=== PATIENT | male | born 1930 | race Caucasian/White ===

== ENCOUNTER → 2016-09-19 | Day surgery (SDC) | payer BC ==
[2016-09-18 11:54] VITALS: Ht 174 cm; Wt 85.0 kg
[~2016-09-19] VITALS: Ht 174 cm; Wt 85.0 kg
[~2016-09-19] MED LIST: ALL300 PO; ALLO300T2 PO; AMLO2.5T PO; ASPI-435 PO; ATOR-24 PO; ATROPINE SULFATE 0.1 MG/ML 5ML SYR IV PRN; AVD5 PO; BUPIVACAINE 0.5 % 5 MG/1 ML MPF 30ML VIAL ONE; CEFAZOLIN 2000 MG/60 ML D5W IV SCH; CEFAZOLIN SOD 1 GM VIAL ONE; CEFAZOLIN SOD 1000MG/55 ML D5W IV ONE; CEPH500C2 PO; CYAN100T PO; DEXAMETHASONE SOD INJ 4 MG/ML VIAL IV PRN; DTRSR4 PO; DUTA1CAP3 PO; EpHEDrine SULFATE INJ 50 MG/ML AMP IV PRN; FENTANYL CITRATE INJ 50 MCG/1 ML 2 ML VIAL IV PRN; FENTANYL CITRATE INJ 50 MCG/1 ML 2 ML VIAL ONE; FLM4 PO; GABA-113 PO; GABA1CAP4 PO; IPRA1AER2 INH; KETOROLAC TROMETHAMINE 30 MG/ML VIAL IV. PRN; LABETALOL HCL IV 5 MG/ML 20ML IV PRN; LACTATED RINGER'S 1000ML 1,000 ML IV SCH; LIDOCAINE HCL 1% 20 ML VIAL ONE; LIDOCAINE HCL 2% 2 ML VIAL (20MG/ML) ONE; MAGN400T6 PO; MELA1TAB3 PO; MELA1TAB4 PO; METO25TA3 PO; METOCLOPRAMIDE HCL INJ 5 MG/ML 2 ML VIAL IV PRN; MIDAZOLAM HCL 1 MG/ML 2ML VIAL ONE; MIRA1TAB3 PO; MOME220A INH; NUTR-7 PO; ONDANSETRON INJ 2 MG/ML 2 ML VIAL IV PRN; OXGN; PANT20TA2 PO; PANT40TA PO; PHEN-876 PO; PHENYLEPHRINE 100MCG/ML 5ML SYR IV PRN; PRED-301 PO; PROPOFOL IV EMULSION 10 MG/ML 20 ML VIAL IV ONE; SODIUM CHLORIDE 0.9% 1000ML 1,000 ML IV SCH; TOLT1CAP3 PO; TPRSR/25 PO; TRAM-10 PO; TRAMADOL HCL 50 MG TAB PO PRN; ULT50 PO; ZOLE5INJ IV
--- NOTE | 2016-09-19 06:56 | History & Physical Bridge - SC ---
H&P Re-Evaluation Bridge Note: I have examined the patient, reviewed the History & Physical and in the interval since the performance of the History & Physical I have noted the following changes of clinical significance: No changes noted
--- NOTE | 2016-09-19 07:45 | [facility] Post Operative Brief Note ---
Immediate Operative Summary Operative Date September 19, 2016. 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 Nieves Solar Crew Member Surgeon(s) Robel Somers PA-C Estimated Blood Loss Minimal Findings Right 2nd Hammertoe with ulceration Specimens A. Right Second Toe Anesthesia Local with IV sedation Complication(s) None Disposition Recovery Room / PACU
[2016-09-19 07:48] VITALS: TEMP 36.7
--- NOTE | 2016-09-19 07:49 | Discharge Instructions-SurgCtr ---
Discharge Instructions Date of Service September 19, 2016. Visit Reason for Visit: Osteomyelitis, Foot Pain Discharge Discharge Diagnosis / Problem: RIGHT 2ND TOE OSTEOMYELITIS Discharge Goals Goal(s): Decrease discomfort, Therapeutic intervention Activity Recommendations Activity Limitations: per Instructions/Follow-up section Weightbearing Status: Right weightbearing (as tolerated WITH POST OP SHOE ) Anesthesia . Post Anesthesia Instructions: If you have had General Anesthesia or IV Sedation: * Do not drive today. * Resume driving when surgeon permits. * Do not make important decisions or sign legal documents today. * Call surgeon for: 1. Temperature elevations greater than 101 degrees F. 2. Uncontrollable pain. 3. Excessive bleeding. 4. Persistent nausea and vomiting. 5. Medication intolerance (nausea, vomiting or rash). * For nausea and vomiting use only clear liquids such as: tea, soda, bouillon until nausea subsides, then gradually increase diet as tolerated. * If you have any concerns or questions, call your surgeon's office. If physician is unavailable and it is an emergency, call 911 or go to the nearest emergency room. . Instructions / Follow-Up Instructions / Follow-Up MEDICATIONS: * Resume previous medications unless instructed otherwise by your surgeon. * Always take pain medication on a full stomach or with food to avoid upset stomach. * Do not drink alcohol or drive while taking narcotics. * Ibuprofen or Tylenol may be taken if narcotic not needed. SPECIAL CARE INSTRUCTIONS: __ None __ Keep extremity elevated and iced x 48 hours; apply ice 20-30 minutes 8-10 times/day. May remove at night. __ Crutches __ May discard when able __ Brace/Post-op shoe __ 24 hrs/day __ Remove at night _X_ Dressing _X_ Maintain until seen in office, may shower with plastic over site __ Remove dressings in 24-48 hours and then may shower __ Cover incisions with band-aids after showering __ Do not remove steri-strips Call physician if chills or temperature rises above 102 degrees or pain unrelieved by prescribed pain medications. Office [phone] FOLLOW UP IN 2 WEEKS Diet Recommendations Home Diet: resume previous diet Procedures Procedures Performed: Right Second Toe Amputation Pending Studies Studies pending at discharge: no Medical Emergencies . Who to Call and When: Medical Emergencies: If at any time you feel your situation is an emergency, please call 911 immediately. . Non-Emergent Contact Non-Emergency issues call your: Surgeon . . "Provider Documentation" section prepared by Jose Somers. .
[2016-09-19 08:45] VITALS: O2SAT 98
[2016-09-19 09:01] VITALS: BP 149/88; PULSE 74
--- NOTE | 2016-09-19 09:30 | Anesthesia Progress Nt - [facility] ---
Anesthesia Post Op Note Date & Time September 19, 2016 at 09:30 Vital Signs Pain Intensity: 0 Vital Signs Past 12 Hours Date Time Temp Pulse Resp B/P Pulse Ox O2 Delivery O2 Flow Rate FiO2 09/19/16 09:01 74 149/88 09/19/16 08:57 75 164/77 09/19/16 08:50 76 151/85 09/19/16 08:45 76 161/88 98 09/19/16 08:40 76 174/107 98 Room Air 09/19/16 08:29 73 20 175/104 98 Room Air 09/19/16 07:48 36.7 73 16 145/82 98 Room Air 09/19/16 06:33 36.7 69 20 144/86 94 Room Air Notes Mental Status: alert / awake / arousable, participated in evaluation Pt Amnestic to Procedure: Yes Nausea / Vomiting: adequately controlled Pain: adequately controlled Airway Patency, RR, SpO2: stable & adequate BP & HR: stable & adequate Hydration State: stable & adequate Anesthetic Complications: no major complications apparent
--- NOTE | 2016-09-19 09:57 | OPERATIVE REPORT ---
DATE OF OPERATION: 09/19/2016 PREOPERATIVE DIAGNOSIS: Right second chronic hammertoe deformity with recurrent infection. POSTOPERATIVE DIAGNOSIS: Same. PROCEDURE PERFORMED: Right second toe amputation. SURGEON: Melvin Nieves M.D. 911 EMERGENCY DISPATCHER: Rafael Somers PA-C. COMPLICATIONS: None. ESTIMATED BLOOD LOSS: Minimal. TOURNIQUET TIME: 11 minutes at 300 mmHg. ANESTHESIA: Local with IV sedation. SPECIMENS: Right toe sent for pathology. OPERATIVE INDICATIONS: The patient is an 85-year-old gentleman who is now a little over a year out from left second toe amputation for recurrent infection and osteomyelitis. He developed similar problems in the right foot. There is no documented osteomyelitis, but he has had recurrent infections in his foot. He has developed a chronic hammertoe deformity of the second toe. It actually deviates toward the big toe at the MP joint and then towards the third toe at the IP joint. He develops calluses and recurrent infection. He has actually been hospitalized with several days of IV antibiotics in the past. He would like to have this toe amputated just like the other one to correct this problem. OPERATION AND FINDINGS: OPERATIVE PROCEDURE: The patient taken to the operating room, identified and placed on the operating table in supine position. All contact areas were appropriately padded. IV antibiotics were provided by anesthesia team. Right ankle tourniquet was placed. Some IV sedation was provided. Ten mL of a 50:50 combination of 0.5% Marcaine and 2% lidocaine were then injected just proximal to the second MTP joint for a digital block. The right foot was then prepped and draped in the usual sterile fashion. The right leg was elevated and exsanguinated with Esmarch and tourniquet was placed at 300 mmHg. A fish mouth incision was made at the base of the 2nd toe. Sharp dissection was carried down through the subcutaneous tissue directly down to the bone. I then skeletonized the bone and disarticulated MTP joint. I then identified the flexor and extensor tendons. I applied tension to them and cut them short and allowed them to retract. I then irrigated the wound extensively. The tourniquet was then let down for a final tourniquet time of 11 minutes. Hemostasis was assured with use of electrocautery. The wound was once again irrigated. The skin was then closed with 4-0 nylon suture in a simple fashion. The foot was then cleaned and dried and a sterile dressing of Xeroform, 4 x 4's, sterile cast padding and a Coban wrap followed by postop shoe were applied. The patient was then transferred to the recovery room in stable condition. The patient tolerated the procedure well with no complications. All needle and sponge counts were correct at the end of the operation. I attest to the content of the Intraoperative Record and any orders documented therein. Any exceptio ns are noted below.
== END | disposition home or self-care (01) ==
LOC: X.SURG 06:07
PROVIDERS: ATTEND Orthopaedic Surgery Sports Medicine
DX: M20.41 Other hammer toe(s) (acquired), right foot (principal); M86.671 Other chronic osteomyelitis, right ankle and foot; L03.031 Cellulitis of right toe; I12.9 Hypertensive chronic kidney disease with stage 1 through stage 4 chronic kidney disease, or unspecified chronic kidney disease; N18.3 Chronic kidney disease, stage 3 (moderate); L40.50 Arthropathic psoriasis, unspecified; M10.9 Gout, unspecified; I73.9 Peripheral vascular disease, unspecified; J44.9 Chronic obstructive pulmonary disease, unspecified; R97.20 Elevated prostate specific antigen [PSA]; E78.5 Hyperlipidemia, unspecified; I35.0 Nonrheumatic aortic (valve) stenosis; M81.0 Age-related osteoporosis without current pathological fracture; G60.9 Hereditary and idiopathic neuropathy, unspecified; Z79.899 Other long term (current) drug therapy

== ENCOUNTER 2016-12-17 16:41 | Emergency (ER) | payer BC ==
[~2016-12-17] VITALS: Ht 174 cm; Wt 79.5 kg
[~2016-12-17 16:41] MED LIST changes: -ALL300 PO; -ASPI-435 PO; -ATOR-24 PO; -ATROPINE SULFATE 0.1 MG/ML 5ML SYR IV PRN; -BUPIVACAINE 0.5 % 5 MG/1 ML MPF 30ML VIAL ONE; -CEFAZOLIN 2000 MG/60 ML D5W IV SCH; -CEFAZOLIN SOD 1 GM VIAL ONE; -CEFAZOLIN SOD 1000MG/55 ML D5W IV ONE; -DEXAMETHASONE SOD INJ 4 MG/ML VIAL IV PRN; -DUTA1CAP3 PO; -EpHEDrine SULFATE INJ 50 MG/ML AMP IV PRN; -FENTANYL CITRATE INJ 50 MCG/1 ML 2 ML VIAL IV PRN; -FENTANYL CITRATE INJ 50 MCG/1 ML 2 ML VIAL ONE; -GABA1CAP4 PO; -IPRA1AER2 INH; -KETOROLAC TROMETHAMINE 30 MG/ML VIAL IV. PRN; -LABETALOL HCL IV 5 MG/ML 20ML IV PRN; -LACTATED RINGER'S 1000ML 1,000 ML IV SCH; -LIDOCAINE HCL 1% 20 ML VIAL ONE; -LIDOCAINE HCL 2% 2 ML VIAL (20MG/ML) ONE; -MAGN400T6 PO; -MELA1TAB4 PO; -METOCLOPRAMIDE HCL INJ 5 MG/ML 2 ML VIAL IV PRN; -MIDAZOLAM HCL 1 MG/ML 2ML VIAL ONE; -MOME220A INH; -ONDANSETRON INJ 2 MG/ML 2 ML VIAL IV PRN; -PANT20TA2 PO; -PHEN-876 PO; -PHENYLEPHRINE 100MCG/ML 5ML SYR IV PRN; -PROPOFOL IV EMULSION 10 MG/ML 20 ML VIAL IV ONE; -SODIUM CHLORIDE 0.9% 1000ML 1,000 ML IV SCH; -TOLT1CAP3 PO; -TPRSR/25 PO; -TRAMADOL HCL 50 MG TAB PO PRN; -ULT50 PO
[2016-12-17] MEDS ORDERED: MOME220A INH (16:59)
[2016-12-17] MEDS ORDERED: IPRA1AER2 INH (16:59)
[2016-12-17] MEDS ORDERED: MAGN400T6 PO (16:59)
[2016-12-17 17:07] VITALS: TEMP 36.6; Ht 174 cm; Wt 79.5 kg
--- NOTE | 2016-12-17 17:57 | EMERGENCY ROOM VISIT NOTE ---
History First contact with patient: 17:40 Chief Complaint: LEG PAIN,LEG INJURY Stated Complaint: LF LEG GRABBING ON HIM History of Present Illness The patient is a 86 year old male who presents to the Emergency Room with complaints of 3 days of right leg pain. He reports waking up with a pain shooting down his right leg intermittently. He currently denies having the pain and is unable to reproduce it. He denies any back pain. He has chronic urinary incontinence. He denies bowel incontinence. He admits to intermittent night time sweating for the past 3 days. During this time he also reports a lack of appetite. No problem with food getting stuck. He stopped taking all his medications as he does not want to eat on an empty stomach. He denies any chest pain, shortness of breath, pain on urination, cough, headache, vision, speech or hearing problems. Review of Systems Constitutional: + sweats (night time as per HPI), No fever Eyes: No worsening of vision ENT: No hearing loss Respiratory: No cough, No sputum, No wheezing, No shortness of breath Cardiovascular: No chest pain, No orthopnea, No PND, No edema, No claudication, No palpitations Abdomen: + nausea, No pain, No vomiting, No diarrhea, No constipation, No GI bleeding Musculoskeletal: No joint pain, No muscle pain Genitourinary - Male: + urinary urgency (chronic), No hematuria, No dysuria , No urinary frequency Neurologic: + weakness (generalized), No memory loss, No numbness/tingling, No vertigo Endocrine: + fatigue (3 days) Hematologic / Lymphatic: No abnormal bleeding/bruising Integumentary: No rash, No itch Past Medical/Surgical History Medical Problems: (1) Aortic stenosis (2) BPH (benign prostatic hypertrophy) (3) Carotid bruit (4) Cellulitis of foot (5) CKD (chronic kidney disease), stage III (6) COPD (chronic obstructive pulmonary disease) (7) Dyslipidemia (8) Gout (9) H/O atrial flutter (10) H/O diastolic dysfunction (11) History of duodenal ulcer (12) History of volvulus of stomach (13) Hypertension (14) Nocturnal hypoxemia (15) Osteoporosis (16) Peripheral vascular disease (17) Psoriatic arthritis (18) Tobacco abuse (19) Toe infection Surgical Problems: (1) H/O colonoscopy (2) Hx of esophagogastroduodenoscopy Family History FH: Parkinson's disease FATHER FH: cancer MOTHER (Colon) SISTER (Breast, LungCA) Kidney disease Kidney stones Social History Smoking Status: Former Smoker Alcohol Use: none Drug Use: none Marital Status: Housing Status: lives alone Occupation Status: retired Current/Historical Medications Scheduled Allopurinol (Allopurinol), 300 MG PO QAM Amlodipine Besylate (Norvasc), 2.5 MG PO QAM Aspirin (Aspirin 81), 81 MG PO QAM Atorvastatin (Lipitor), 40 MG PO QPM Dutasteride (Dutasteride), 0.5 MG PO DAILY Gabapentin (Gabapentin), 300-600 MG PO TID Home O2 Therapy (Oxygen), 2 LITERS NA HS Magnesium Oxide (Mag-Ox), 400 MG PO BID Melatonin (Melatonin), 1 MG PO HS Metoprolol Succinate (Metoprolol Succinate ER), 25 MG PO QAM Mirabegron (Myrbetriq Er), 50 MG PO QPM Mometasone Furoate (Inhalation (Asmanex Twisthaler 120 Me), 2 PUFFS INH BID Pantoprazole Sodium (Protonix), 40 MG PO QAM Prednisone (Prednisone), 5 MG PO QPM Tamsulosin HCl (Tamsulosin HCl), 0.4 MG PO QPM Tolterodine Tartrate (Tolterodine Tartrate ER), 4 MG PO QPM Zoledronic Acid (Reclast), 5 MG IV YEARLY Scheduled PRN Ipratropium-Albuterol (Combivent Respimat), 1 PUFF INH QID PRN for Shortness of Breath Phenazopyridine HCl (Pyridium), 200 MG PO TID PRN for Pain with Urination Tramadol HCl (Tramadol HCl), 50-100 MG PO Q6H PRN for Pain Physical Exam Vital Signs Date Time Temp Pulse Resp B/P (MAP) Pulse Ox O2 Delivery O2 Flow Rate FiO2 12/17/16 22:32 111 18 179/92 96 Room Air 12/17/16 21:58 102 18 160/101 95 Room Air 12/17/16 21:38 104 18 173/108 97 Room Air 12/17/16 21:29 104 12/17/16 20:24 102 18 158/93 95 Room Air 12/17/16 19:25 104 20 169/120 98 Room Air 12/17/16 17:07 36.6 100 18 144/90 98 Room Air Physical Exam General Appearance: no apparent distress, + thin Eyes: normal inspection, PERRL, EOMI Neck: supple, no JVD, trachea midline Respiratory/Chest: chest non-tender, lungs clear, normal breath sounds, no respiratory distress, no accessory muscle use Cardiovascular: regular rate, rhythm, normal peripheral pulses, + systolic murmur (known aortic stenosis) Abdomen / GI: normal bowel sounds, non tender, soft Back: no CVA tenderness Extremities: no calf tenderness, normal capillary refill, no pedal edema, + pertinent finding (unable to reproduce right leg pain, non painful lump over left quadriceps noted (unsure of duration of this)) Neurologic/Psych: ballaster II-XII nml as tested (no facial droop or numbness), no motor/sensory deficits, alert, oriented x 3 Medical Decision & Procedures ER Provider Diagnostic Interpretation: CHEST 2 VIEWS ROUTINE HISTORY: 86 years-old Male lack of energy, tachycardia ?pneumonia COMPARISON: Chest radiographs 03/21/2015 TECHNIQUE: Frontal and lateral views of the chest FINDINGS: Cardiac silhouette is enlarged. There is a large hiatal hernia with partially intrathoracic stomach. There is atherosclerosis of the aorta. No pneumothorax. There is chronic blunting of the bilateral costophrenic angles with linear subsegmental bibasilar opacities. Lungs are hyperinflated. Pleural calcifications are again seen. The bones are grossly intact and moderately demineralized. IMPRESSION: 1. Cardiomegaly without acute cardiopulmonary process. 2. Chronic bibasilar scarring/atelectasis. 3. Large hiatal hernia. The above report was generated using voice recognition software. It may contain grammatical, syntax or spelling errors. Electronically signed by: Steven Carlos M.D. 12/17/2016 8:03 PM Dictated Date/Time: 12/17/2016 8:01 PM LUMBAR SPINE RADIOGRAPHS CLINICAL HISTORY: Fall. COMPARISON: Lumbar spine MRI October 18, 2013. FINDINGS: Note is made of postoperative findings consistent with an L4-L5 discectomy with interbody spacer placement. There are bilateral pleural screws at the L4, L5 and S1 levels. A pedicle screw at the L4 level extends through the superior endplate into to the disc space. There is an old moderate L5 compression fracture. Grade I anterolisthesis of L4 and L5 is unchanged. No acute fractures are identified on this exam. IMPRESSION: 1. Status post L4-L5 discectomy and L4-S1 bilateral pedicle screw fusion. One pedicle screw at the L4 level extends through the superior endplate into the disc space. 2. Old moderate L5 compression fracture. No change in grade I anterolisthesis of L4 and L5. 3. No acute lumbar spine fracture identified. Electronically signed by: Cisco Magdaleno M.D. 12/17/2016 8:15 PM Dictated Date/Time: 12/17/2016 8:11 PM RIGHT PELVIS/UNILATERAL HIP 2-3VIEWS CLINICAL HISTORY: Right hip pain following fall. COMPARISON: [facility] March 06, 2013. FINDINGS: Sacroiliac joints and symphysis pubis are intact. There is no acute fracture within the pelvis or hips. There are postoperative findings within the lumbosacral spine. Extensive vascular calcification is noted. 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 IMPRESSION: 1. No acute fracture within the pelvis or hips. 2. Mild osteoarthritis of the right hip. Electronically signed by: Cisco Magdaleno M.D. 12/17/2016 8:11 PM Dictated Date/Time: 12/17/2016 8:09 PM RIGHT LOWER EXTREMITY VENOUS DOPPLER CLINICAL HISTORY: Right lower extremity pain. COMPARISON STUDY: No previous studies for comparison. TECHNIQUE: Sonography of the deep venous system of the right lower extremity was performed. Compression and augmentation were evaluated. FINDINGS: The common femoral, superficial femoral and popliteal veins were compressible. Augmentation was normal. Flow was shown within the deep calf vessels. IMPRESSION: No evidence of deep venous thrombus within the right lower extremity. Electronically signed by: Cisco Magdaleno M.D. 12/17/2016 8:46 PM Dictated Date/Time: 12/17/2016 8:45 PM Laboratory Results 12/17/16 18:38 Red Blood Count 4.98, Mean Corpuscular Volume 83.3, Mean Corpuscular Hemoglobin 27.5, Mean Corpuscular Hemoglobin Concent 33.0, Mean Platelet Volume 9.7, Neutrophils (%) (Auto) 72.5, Lymphocytes (%) (Auto) 18.3, Monocytes (%) (Auto) 7.7, Eosinophils (%) (Auto) 0.8, Basophils (%) (Auto) 0.4, Neutrophils # (Auto) 5.79, Lymphocytes # (Auto) 1.46, Monocytes # (Auto) 0.61, Eosinophils # (Auto) 0.06, Basophils # (Auto) 0.03 12/17/16 18:38 Test 12/17/16 18:38 12/17/16 19:20 White Blood Count 7.97 K/uL (4.8-10.8) Red Blood Count 4.98 M/uL (4.7-6.1) Hemoglobin 13.7 g/dL (14.0-18.0) Hematocrit 41.5 % (42-52) Mean Corpuscular Volume 83.3 fL (80-100) Mean Corpuscular Hemoglobin 27.5 pg (25-34) Mean Corpuscular Hemoglobin Concent 33.0 g/dl (32-36) Platelet Count 214 K/uL (130-400) Mean Platelet Volume 9.7 fL (7.4-10.4) Neutrophils (%) (Auto) 72.5 % Lymphocytes (%) (Auto) 18.3 % Monocytes (%) (Auto) 7.7 % Eosinophils (%) (Auto) 0.8 % Basophils (%) (Auto) 0.4 % Neutrophils # (Auto) 5.79 K/uL (1.4-6.5) Lymphocytes # (Auto) 1.46 K/uL (1.2-3.4) Monocytes # (Auto) 0.61 K/uL (0.11-0.59) Eosinophils # (Auto) 0.06 K/uL (0-0.5) Basophils # (Auto) 0.03 K/uL (0-0.2) RDW Standard Deviation 46.7 fL (36.4-46.3) RDW Coefficient of Variation 15.4 % (11.5-14.5) Immature Granulocyte % (Auto) 0.3 % Immature Granulocyte # (Auto) 0.02 K/uL (0.00-0.02) Anion Gap 9.0 mmol/L (3-11) Est Creatinine Clear Calc Drug Dose 44.3 ml/min Estimated GFR () 63.5 Estimated GFR (Non- 54.8 BUN/Creatinine Ratio 17.1 (10-20) Calcium Level 9.1 mg/dl (8.5-10.1) Total Bilirubin 0.8 mg/dl (0.2-1) Aspartate Amino Transf (AST/SGOT) 21 U/L (15-37) Alanine Aminotransferase (ALT/SGPT) 17 U/L (12-78) Alkaline Phosphatase 130 U/L (45-117) Total Protein 7.7 gm/dl (6.4-8.2) Albumin 3.6 gm/dl (3.4-5.0) Globulin 4.1 gm/dl (2.5-4.0) Albumin/Globulin Ratio 0.9 (0.9-2) Urine Color YELLOW Urine Appearance CLEAR (CLEAR) Urine pH 6.5 (4.5-7.5) Urine Specific [place] 1.018 (1.000-1.030) Urine Protein TRACE (NEG) Urine Glucose (UA) NEG (NEG) Urine Ketones TRACE (NEG) Urine Occult Blood NEG (NEG) Urine Nitrite NEG (NEG) Urine Bilirubin NEG (NEG) Urine Urobilinogen NEG (NEG) Urine Leukocyte Esterase NEG (NEG) Urine WBC (Auto) 1-5 /hpf (0-5) Urine RBC (Auto) 0-4 /hpf (0-4) Urine Hyaline Casts (Auto) 1-5 /lpf (0-5) Urine Epithelial Cells (Auto) 0-5 /lpf (0-5) Urine Bacteria (Auto) NEG (NEG) Medications Administered Medications (Trade) Dose Ordered Sig/Alberto Route Start Time Stop Time Status Last Admin Dose Admin Sodium Chloride 1,000 ml @ 999 mls/hr Q1H1M STAT IV 12/17/16 18:04 12/17/16 19:04 DC 12/17/16 18:41 999 MLS/HR Sodium Chloride 500 ml @ 999 mls/hr Q31M STAT IV 12/17/16 20:44 12/17/16 21:14 DC 12/17/16 21:28 999 MLS/HR Ondansetron HCl (Zofran Inj) 4 mg NOW STAT IV 12/17/16 21:03 12/17/16 21:04 DC 12/17/16 21:25 4 MG Metoprolol Succinate (Toprol Xl Tab) 25 mg ONE STAT PO 12/17/16 21:09 12/17/16 21:11 DC 12/17/16 21:28 25 MG Ondansetron HCl (ZOFRAN ODT 4MG Home Pack) 1 homepack UD ONCE PO 12/17/16 22:15 12/17/16 22:16 DC 12/17/16 22:32 1 HOMEPACK ECG Indication: weakness Rate (beats per minute): 106 Rhythm: sinus tachycardia Findings: no acute ischemic change Change: no significant change (17 August 2015) ED Course 17:45 History and Physical was performed by myself 18:20 The patient was discussed with 21:00 The patient was reevaluated and is still without pain. Willing to try some food and medication 21:50 The patient was reevaluated with Dr Duckworth and ate a turkey sandwich after Zofran and he wished to be discharged home Medical Decision Prior records/ancillary studies reviewed. Triage Nursing notes reviewed. Additional history obtained from patient and office visit record. The patient's history was concerning for right leg pain. Differential diagnosis: Etiologies such as musculoskeletal, disc herniation, fracture, DVT, metastatic disease, cord compression, discitis, infection, renal colic, gastrointestinal, sciatica, cauda equina, as well as others were entertained. Physical findings: As above. No focal neurologic findings noted, unable to reproduce leg pain on examination ER treatment provided: 1.5L NSS Zofran 4mg IV Diagnostics interpreted by me: The labs revealed normal WBC, Hgb 13.7 (stable), Cr 1.2 (at baseline), ALP mildly raised at 130 with normal bilirubin Imaging studies: as above showed no acute fracture or pneumonia No pathology was found for his right leg pain and he was pain free throughout his ER course. He has objective fever and WBC is normal therefore no objective findings of an infection at this time. He was tachycardic which remained elevated despite fluid bolus. This is most likely secondary to him not taking his metoprolol and having rebound tachycardia. He does not complain of chest pain, shortness of breath and has normal saturations therefore unlikely this represents a PE. His main issue appears to be general failure to thrive and his lack of appetite. He was given Zofran for nausea and managed to eat a sandwich in the ER without any issues. He took his usual dose of metoprolol without issues. I am unclear whether him not taking his medications has lead to his deterioration or whether the deterioration led to him not taking his medications. He declined placement for inpatient rehabilitation and wished to go home. He was advised to call his PCP in the morning for close follow up in the next 1-2 days. By the evaluation outlined above emergent etiologies such as fracture, aortic disease, metastatic disease, infection, renal colic, gastrointestinal, cord compression, cauda equina, as well as others were deemed relatively unlikely. The patient and his daughter were informed about the findings as listed above. All questions were answered and they were pleased with the treatment. Return instructions were outlined and the patient was discharged in stable condition. Referral: The patient was referred back to his primary care physician for follow-up in 1 to 2 days for a recheck of the current condition. Medication Reconcilliation Current Medication List: was personally reviewed by me Blood Pressure Screening Patient's blood pressure: Elevated blood pressure Blood pressure disposition: Referred to PCP Not taking his usual medications Impression Primary Impression: Leg pain, right Additional Impressions: Poor fluid intake Poor nutrition Departure Information Dispostion Home / Self-Care Condition FAIR Referrals Patrick Albarran M.D. (PCP) Patient to call for follow up in the next 1-2 days Patient Instructions My [facility] Additional Instructions Examination, lab work, urine, ultrasound and chest XR were unremarkable and did not find a cause of your symptoms in the ER today. In the ER you are only seen at one point in time and some conditions require follow up to be diagnosed. Take Tylenol (age and/or weight specific) as needed for pain, discomfort, and fevers. Drink more clear liquids for the next 3 to 4 days. Make a follow-up appointment with your family doctor for continued care and treatment in the next 1-2 days. If you have an increasing pain, discomfort, fevers, or difficulty swallowing, difficulty breathing, chest pain, recurrent vomiting or diarrhea, come back to the Emergency Department. Resident Tracking Resident Involvement: Resident Care Provided Care Provided: Adult ED Problem Qualifiers
[2016-12-17] MEDS ORDERED: SODIUM CHLORIDE 0.9% 1000ML 1,000 ML IV STA (18:04)
[2016-12-17] MEDS ORDERED: ASPI-435 PO (18:45)
[2016-12-17 18:55] LABS: BASO % 0.4 %; BASO ABS # 0.03 K/uL (0-0.2); COMPLETE YES; EOS % 0.8 %; HEMATOCRIT 41.5 % (42-52); IG% 0.3 %; LYMPH % 18.3 %; LYMPH ABS # 1.46 K/uL (1.2-3.4); MEAN CELL VOLUME 83.3 fL (80-100); MEAN CORPUSCULAR HEMOGLOBIN 27.5 pg (25-34); MEAN PLATELET VOLUME 9.7 fL (7.4-10.4); MONO % 7.7 %; NEUT % 72.5 %; PLATELET COUNT 214 K/uL (130-400); RED BLOOD COUNT 4.98 M/uL (4.7-6.1); WHITE BLOOD COUNT 7.97 K/uL (4.8-10.8)
[2016-12-17 19:15] LABS: BUN/CREATININE RATIO 17.1 (10-20); CALCIUM 9.1 mg/dl (8.5-10.1); CREATININE 1.2 mg/dl (0.60-1.40); POTASSIUM 3.8 mmol/L (3.5-5.1)
[2016-12-17 19:18] LABS: ALB/GLOB RATIO 0.9 (0.9-2)
[2016-12-17 19:39] LABS: URINE APPEARANCE CLEAR (CLEAR); URINE BILIRUBIN NEG (NEG); URINE COLOR YELLOW; URINE EPITHELIAL CELL AUTO 0-5 /lpf (0-5); URINE NITRITE NEG (NEG); URINE PH 6.5 (4.5-7.5); URINE SPECIFIC GRAVITY 1.018 (1.000-1.030); UROBILINOGEN NEG (NEG); ZZURINE CULT IF INDIC CATH NO
[2016-12-17 19:45] LABS: MANUAL MICROSCOPIC REQUIRED? NO; REVIEW REQ? NO
--- NOTE | 2016-12-17 20:04 | DIAGNOSTIC IMAGING REPORT ---
CHEST 2 VIEWS ROUTINE HISTORY: 86 years-old Male lack of energy, tachycardia ?pneumonia COMPARISON: Chest radiographs 03/21/2015 TECHNIQUE: Frontal and lateral views of the chest FINDINGS: Cardiac silhouette is enlarged. There is a large hiatal hernia with partially intrathoracic stomach. There is atherosclerosis of the aorta. No pneumothorax. There is chronic blunting of the bilateral costophrenic angles with linear subsegmental bibasilar opacities. Lungs are hyperinflated. Pleural calcifications are again seen. The bones are grossly intact and moderately demineralized. IMPRESSION: 1. Cardiomegaly without acute cardiopulmonary process. 2. Chronic bibasilar scarring/atelectasis. 3. Large hiatal hernia. The above report was generated using voice recognition software. It may contain grammatical, syntax or spelling errors. Electronically signed by: Steven Carlos M.D. 12/17/2016 8:03 PM Dictated Date/Time: 12/17/2016 8:01 PM
--- NOTE | 2016-12-17 20:12 | DIAGNOSTIC IMAGING REPORT ---
RIGHT PELVIS/UNILATERAL HIP 2-3VIEWS CLINICAL HISTORY: Right hip pain following fall. COMPARISON: [facility] March 06, 2013. FINDINGS: Sacroiliac joints and symphysis pubis are intact. There is no acute fracture within the pelvis or hips. There are postoperative findings within the lumbosacral spine. Extensive vascular calcification is noted. 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 IMPRESSION: 1. No acute fracture within the pelvis or hips. 2. Mild osteoarthritis of the right hip. Electronically signed by: Cisco Magdaleno M.D. 12/17/2016 8:11 PM Dictated Date/Time: 12/17/2016 8:09 PM
--- NOTE | 2016-12-17 20:16 | DIAGNOSTIC IMAGING REPORT ---
LUMBAR SPINE RADIOGRAPHS CLINICAL HISTORY: Fall. COMPARISON: Lumbar spine MRI October 18, 2013. FINDINGS: Note is made of postoperative findings consistent with an L4-L5 discectomy with interbody spacer placement. There are bilateral pleural screws at the L4, L5 and S1 levels. A pedicle screw at the L4 level extends through the superior endplate into to the disc space. There is an old moderate L5 compression fracture. Grade I anterolisthesis of L4 and L5 is unchanged. No acute fractures are identified on this exam. IMPRESSION: 1. Status post L4-L5 discectomy and L4-S1 bilateral pedicle screw fusion. One pedicle screw at the L4 level extends through the superior endplate into the disc space. 2. Old moderate L5 compression fracture. No change in grade I anterolisthesis of L4 and L5. 3. No acute lumbar spine fracture identified. Electronically signed by: Cisco Magdaleno M.D. 12/17/2016 8:15 PM Dictated Date/Time: 12/17/2016 8:11 PM
[2016-12-17] MEDS ORDERED: ATOR-24 PO (20:40)
[2016-12-17] MEDS ORDERED: SODIUM CHLORIDE 0.9% 500ML 500 ML IV STA (20:44)
--- NOTE | 2016-12-17 20:47 | DIAGNOSTIC IMAGING REPORT ---
RIGHT LOWER EXTREMITY VENOUS DOPPLER CLINICAL HISTORY: Right lower extremity pain. COMPARISON STUDY: No previous studies for comparison. TECHNIQUE: Sonography of the deep venous system of the right lower extremity was performed. Compression and augmentation were evaluated. FINDINGS: The common femoral, superficial femoral and popliteal veins were compressible. Augmentation was normal. Flow was shown within the deep calf vessels. IMPRESSION: No evidence of deep venous thrombus within the right lower extremity. Electronically signed by: Cisco Magdaleno M.D. 12/17/2016 8:46 PM Dictated Date/Time: 12/17/2016 8:45 PM
[2016-12-17] MEDS ORDERED: ONDANSETRON INJ 2 MG/ML 2 ML VIAL IV STA (21:03)
[2016-12-17] MEDS ORDERED: METOPROLOL SUCC 25MG EXT REL TAB PO STA (21:09)
[2016-12-17] MEDS ORDERED: ONDANSETRON HOME PACK 4MG OD TAB PO ONE (22:15)
[2016-12-17] MEDS ORDERED: TOLT1CAP3 PO (22:19)
[2016-12-17] MEDS ORDERED: DUTA1CAP3 PO (22:19)
[2016-12-17] MEDS ORDERED: GABA1CAP4 PO (22:19)
[2016-12-17] MEDS ORDERED: ULT50 PO (22:19)
[2016-12-17] MEDS ORDERED: AMLO2.5T PO (22:19)
[2016-12-17] MEDS ORDERED: TPRSR/25 PO (22:19)
[2016-12-17] MEDS ORDERED: PANT20TA PO (22:19)
[2016-12-17] MEDS ORDERED: ALL300 PO (22:19)
[2016-12-17] MEDS ORDERED: MELA1TAB4 PO (22:24)
[2016-12-17 22:32] VITALS: BP 179/92; PULSE 111; O2SAT 96
[2016-12-17] MEDS ORDERED: PHEN-876 PO (22:36)
--- NOTE | 2016-12-17 23:09 | EMERGENCY ROOM VISIT NOTE ---
History Report prepared by Nishibyuliana: Sia Perez Under the Supervision of: Dr. Bud Duckworth D.O. First contact with patient: 17:40 Chief Complaint: LEG PAIN,LEG INJURY Stated Complaint: LF LEG GRABBING ON HIM History of Present Illness The patient is an 86 year old male who presents to the Emergency Room with complaints of intermittent right leg pain for the past 3 days. He is accompanied by several family members. He states he was "laying around" when the pain started. His family notes he sleeps on a couch, which may have exacerbated his symptoms. He [place] [facility] [facility] [place] lumbar radiculopathy and notes before he had surgery, the pain was located in his right leg. The patient saw his PCP earlier today and states he was referred here to the ED for his symptoms. He notes that he has had intermittent right thigh pain over the past 3 days. It is sharp and stabbing when it occurs. Currently has no pain at this time. He denies any new weakness or numbness in his legs. No numbness in his groin. Brother does note that he fell off the couch several days ago onto his butt. He complains of urinary incontinence but states this is chronic for him. He has not taken his daily medications in 3 days. He admits to a decreased appetite for the past few days as well. His last BM was this morning and normal. The patient denies headache, change in vision, fevers, back pain, chest pain, shortness of breath, abdominal pain, nausea, vomiting, diarrhea, pain with urination, melena, or weakness or numbness in his legs. 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 A total of 10 systems reviewed and were otherwise negative. Past Medical & Surgical Medical Problems: (1) Aortic stenosis (2) BPH (benign prostatic hypertrophy) (3) Carotid bruit (4) Cellulitis of foot (5) CKD (chronic kidney disease), stage III (6) COPD (chronic obstructive pulmonary disease) (7) Dyslipidemia (8) Gout (9) H/O atrial flutter (10) H/O diastolic dysfunction (11) History of duodenal ulcer (12) History of volvulus of stomach (13) Hypertension (14) Nocturnal hypoxemia (15) Osteoporosis (16) Peripheral vascular disease (17) Psoriatic arthritis (18) Tobacco abuse (19) Toe infection Surgical Problems: (1) H/O colonoscopy (2) Hx of esophagogastroduodenoscopy Family History FH: Parkinson's disease FATHER FH: cancer MOTHER (Colon) SISTER (Breast, LungCA) Kidney disease Kidney stones Social History Smoking Status: Former Smoker Alcohol Use: none Drug Use: none Marital Status: Housing Status: lives alone Occupation Status: retired Current/Historical Medications Scheduled Allopurinol (Allopurinol), 300 MG PO QAM Amlodipine Besylate (Norvasc), 2.5 MG PO QAM Aspirin (Aspirin 81), 81 MG PO QAM Atorvastatin (Lipitor), 40 MG PO QPM Dutasteride (Dutasteride), 0.5 MG PO DAILY Gabapentin (Gabapentin), 300-600 MG PO TID Home O2 Therapy (Oxygen), 2 LITERS NA HS Magnesium Oxide (Mag-Ox), 400 MG PO BID Melatonin (Melatonin), 1 MG PO HS Metoprolol Succinate (Metoprolol Succinate ER), 25 MG PO QAM Mirabegron (Myrbetriq Er), 50 MG PO QPM Mometasone Furoate (Inhalation (Asmanex Twisthaler 120 Me), 2 PUFFS INH BID Pantoprazole Sodium (Protonix), 40 MG PO QAM Prednisone (Prednisone), 5 MG PO QPM Tamsulosin HCl (Tamsulosin HCl), 0.4 MG PO QPM Tolterodine Tartrate (Tolterodine Tartrate ER), 4 MG PO QPM Zoledronic Acid (Reclast), 5 MG IV YEARLY Scheduled PRN Ipratropium-Albuterol (Combivent Respimat), 1 PUFF INH QID PRN for Shortness of Breath Phenazopyridine HCl (Pyridium), 200 MG PO TID PRN for Pain with Urination Tramadol HCl (Tramadol HCl), 50-100 MG PO Q6H PRN for Pain Allergies Coded Allergies: Morphine (Verified Allergy, Unknown, "out of it for days", 12/17/16) Colchicine (Verified Adverse Reaction, Mild, GI upset, 12/17/16) Physical Exam Vital Signs Date Time Temp Pulse Resp B/P (MAP) Pulse Ox O2 Delivery O2 Flow Rate FiO2 12/17/16 22:32 111 18 179/92 96 Room Air 12/17/16 21:58 102 18 160/101 95 Room Air 12/17/16 21:38 104 18 173/108 97 Room Air 12/17/16 21:29 104 12/17/16 20:24 102 18 158/93 95 Room Air 12/17/16 19:25 104 20 169/120 98 Room Air 12/17/16 17:07 36.6 100 18 144/90 98 Room Air Physical Exam GENERAL: Patient is sitting up in bed, alert, well appearing, malnourished, no distress, non-toxic EYE EXAM: normal conjunctiva OROPHARYNX: no exudate, no erythema, lips, buccal mucosa, and tongue normal and mucous membranes are moist NECK: supple, no nuchal rigidity, no adenopathy, non-tender LUNGS: Clear to auscultation. Normal chest wall mechanics HEART: no murmurs, S1 normal and S2 normal ABDOMEN: abdomen soft, non-tender, normo-active bowel sounds, no masses, no rebound or guarding. BACK: Back is symmetrical on inspection and there is no deformity, no midline tenderness, no CVA tenderness. SKIN: no rashes and no bruising UPPER EXTREMITIES: upper extremities are grossly normal. LOWER EXTREMITIES: No pitting edema. Flexion, extension at hips, knees, ankles and EHL is 5/5 bilaterally. Minimal tenderness in the medial portion of the mid right thigh. NEURO EXAM: Normal sensorium, cranial nerves II-XII grossly intact, normal speech, no gross weakness of arms, no gross weakness of legs. Gross sensation intact. Able to ambulate with cane. Medical Decision & Procedures ER Provider Diagnostic Interpretation: Radiology results as stated below per my review and the radiologist's interpretation: RIGHT PELVIS/UNILATERAL HIP 2-3VIEWS CLINICAL HISTORY: Right hip pain following fall. COMPARISON: [facility] March 06, 2013. FINDINGS: Sacroiliac joints and symphysis pubis are intact. There is no acute fracture within the pelvis or hips. There are postoperative findings within the lumbosacral spine. Extensive vascular calcification is noted. 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 IMPRESSION: 1. No acute fracture within the pelvis or hips. 2. Mild osteoarthritis of the right hip. Electronically signed by: Cisco Magdaleno M.D. 12/17/2016 8:11 PM RIGHT LOWER EXTREMITY VENOUS DOPPLER CLINICAL HISTORY: Right lower extremity pain. COMPARISON STUDY: No previous studies for comparison. TECHNIQUE: Sonography of the deep venous system of the right lower extremity was performed. Compression and augmentation were evaluated. FINDINGS: The common femoral, superficial femoral and popliteal veins were compressible. Augmentation was normal. Flow was shown within the deep calf vessels. IMPRESSION: No evidence of deep venous thrombus within the right lower extremity. Electronically signed by: Cisco Magdaleno M.D. 12/17/2016 8:46 PM LUMBAR SPINE RADIOGRAPHS CLINICAL HISTORY: Fall. COMPARISON: Lumbar spine MRI October 18, 2013. FINDINGS: Note is made of postoperative findings consistent with an L4-L5 discectomy with interbody spacer placement. There are bilateral pleural screws at the L4, L5 and S1 levels. A pedicle screw at the L4 level extends through the superior endplate into to the disc space. There is an old moderate L5 compression fracture. Grade I anterolisthesis of L4 and L5 is unchanged. No acute fractures are identified on this exam. IMPRESSION: 1. Status post L4-L5 discectomy and L4-S1 bilateral pedicle screw fusion. One pedicle screw at the L4 level extends through the superior endplate into the disc space. 2. Old moderate L5 compression fracture. No change in grade I anterolisthesis of L4 and L5. 3. No acute lumbar spine fracture identified. Electronically signed by: Cisco Magdaleno M.D. 12/17/2016 8:15 PM CHEST 2 VIEWS ROUTINE HISTORY: 86 years-old Male lack of energy, tachycardia ?pneumonia COMPARISON: Chest radiographs 03/21/2015 TECHNIQUE: Frontal and lateral views of the chest FINDINGS: Cardiac silhouette is enlarged. There is a large hiatal hernia with partially intrathoracic stomach. There is atherosclerosis of the aorta. No pneumothorax. There is chronic blunting of the bilateral costophrenic angles with linear subsegmental bibasilar opacities. Lungs are hyperinflated. Pleural calcifications are again seen. The bones are grossly intact and moderately demineralized. IMPRESSION: 1. Cardiomegaly without acute cardiopulmonary process. 2. Chronic bibasilar scarring/atelectasis. 3. Large hiatal hernia. The above report was generated using voice recognition software. It may contain grammatical, syntax or spelling errors. Electronically signed by: Steven Carlos M.D. 12/17/2016 8:03 PM Laboratory Results 12/17/16 18:38 Red Blood Count 4.98, Mean Corpuscular Volume 83.3, Mean Corpuscular Hemoglobin 27.5, Mean Corpuscular Hemoglobin Concent 33.0, Mean Platelet Volume 9.7, Neutrophils (%) (Auto) 72.5, Lymphocytes (%) (Auto) 18.3, Monocytes (%) (Auto) 7.7, Eosinophils (%) (Auto) 0.8, Basophils (%) (Auto) 0.4, Neutrophils # (Auto) 5.79, Lymphocytes # (Auto) 1.46, Monocytes # (Auto) 0.61, Eosinophils # (Auto) 0.06, Basophils # (Auto) 0.03 12/17/16 18:38 Test 12/17/16 18:38 12/17/16 19:20 White Blood Count 7.97 K/uL (4.8-10.8) Red Blood Count 4.98 M/uL (4.7-6.1) Hemoglobin 13.7 g/dL (14.0-18.0) Hematocrit 41.5 % (42-52) Mean Corpuscular Volume 83.3 fL (80-100) Mean Corpuscular Hemoglobin 27.5 pg (25-34) Mean Corpuscular Hemoglobin Concent 33.0 g/dl (32-36) Platelet Count 214 K/uL (130-400) Mean Platelet Volume 9.7 fL (7.4-10.4) Neutrophils (%) (Auto) 72.5 % Lymphocytes (%) (Auto) 18.3 % Monocytes (%) (Auto) 7.7 % Eosinophils (%) (Auto) 0.8 % Basophils (%) (Auto) 0.4 % Neutrophils # (Auto) 5.79 K/uL (1.4-6.5) Lymphocytes # (Auto) 1.46 K/uL (1.2-3.4) Monocytes # (Auto) 0.61 K/uL (0.11-0.59) Eosinophils # (Auto) 0.06 K/uL (0-0.5) Basophils # (Auto) 0.03 K/uL (0-0.2) RDW Standard Deviation 46.7 fL (36.4-46.3) RDW Coefficient of Variation 15.4 % (11.5-14.5) Immature Granulocyte % (Auto) 0.3 % Immature Granulocyte # (Auto) 0.02 K/uL (0.00-0.02) Anion Gap 9.0 mmol/L (3-11) Est Creatinine Clear Calc Drug Dose 44.3 ml/min Estimated GFR () 63.5 Estimated GFR (Non- 54.8 BUN/Creatinine Ratio 17.1 (10-20) Calcium Level 9.1 mg/dl (8.5-10.1) Total Bilirubin 0.8 mg/dl (0.2-1) Aspartate Amino Transf (AST/SGOT) 21 U/L (15-37) Alanine Aminotransferase (ALT/SGPT) 17 U/L (12-78) Alkaline Phosphatase 130 U/L (45-117) Total Protein 7.7 gm/dl (6.4-8.2) Albumin 3.6 gm/dl (3.4-5.0) Globulin 4.1 gm/dl (2.5-4.0) Albumin/Globulin Ratio 0.9 (0.9-2) Urine Color YELLOW Urine Appearance CLEAR (CLEAR) Urine pH 6.5 (4.5-7.5) Urine Specific Hendrix 1.018 (1.000-1.030) Urine Protein TRACE (NEG) Urine Glucose (UA) NEG (NEG) Urine Ketones TRACE (NEG) Urine Occult Blood NEG (NEG) Urine Nitrite NEG (NEG) Urine Bilirubin NEG (NEG) Urine Urobilinogen NEG (NEG) Urine Leukocyte Esterase NEG (NEG) Urine WBC (Auto) 1-5 /hpf (0-5) Urine RBC (Auto) 0-4 /hpf (0-4) Urine Hyaline Casts (Auto) 1-5 /lpf (0-5) Urine Epithelial Cells (Auto) 0-5 /lpf (0-5) Urine Bacteria (Auto) NEG (NEG) Laboratory results per my review. Medications Administered Medications (Trade) Dose Ordered Sig/Alberto Route Start Time Stop Time Status Last Admin Dose Admin Sodium Chloride 1,000 ml @ 999 mls/hr Q1H1M STAT IV 12/17/16 18:04 12/17/16 19:04 DC 12/17/16 18:41 999 MLS/HR Sodium Chloride 500 ml @ 999 mls/hr Q31M STAT IV 12/17/16 20:44 12/17/16 21:14 DC 12/17/16 21:28 999 MLS/HR Ondansetron HCl (Zofran Inj) 4 mg NOW STAT IV 12/17/16 21:03 12/17/16 21:04 DC 12/17/16 21:25 4 MG Metoprolol Succinate (Toprol Xl Tab) 25 mg ONE STAT PO 12/17/16 21:09 12/17/16 21:11 DC 12/17/16 21:28 25 MG Ondansetron HCl (ZOFRAN ODT 4MG Home Pack) 1 homepack UD ONCE PO 12/17/16 22:15 12/17/16 22:16 DC 12/17/16 22:32 1 HOMEPACK ECG Indication: abdominal pain Rate (beats per minute): 106 Rhythm: sinus tachycardia Findings: left axis deviation Comparison ECG Date: No change from EKG performed on 08/17/2015 ED Course ED COURSE: Vital signs were reviewed and showed the patient is tachycardic. The patients medical record was reviewed The above diagnostic studies were performed and reviewed. ED treatments and interventions as stated above. 1803: NSS 1000 ml @ 999 mls/hr IV. 1822: The patient was evaluated in room A2. A complete history and physical examination was performed. 2043: NSS 500 ml @ 999 mls/hr IV. 2102: Zofran 4 mg IV. 2108: Metoprolol 25 mg PO. 2149: Upon reevaluation, the patient is resting comfortably and has tolerated a turkey sandwich. I discussed my findings with the patient and he understands and agrees with the treatment plan. 2214: Zofran 4 mg 1 homepack PO. Based on the patients age, coexisting illnesses, exam and lab findings the decision to treat as an outpatient was made. The patient remained stable while under my care. The patient appeared well at the time of discharge. Medical Decision Differential Diagnosis includes but is not limited to dehydration, stroke, anemia, hypoglycemia, hyponatremia, hypernatremia, urinary tract infection, pneumonia, bronchitis, sepsis, gastroenteritis, additional abdominal pathology, metabolic abnormalities and infections. Patient is an 86-year-old male that was referred in by her PCP for right leg pain associated with weakness and having night sweats last night. Patient currently has absolutely no complaints at this time. He does note that he has not been hungry and has not anemia or drinking. He is also not taking any of his medications. CBC along with BMP, LFTs, bilirubin was unremarkable. UA shows no signs of infection. Chest x-ray was unremarkable. X-rays of the pelvis and hip show no acute fractures. X-rays of his lumbar spine were unremarkable as well. He has had no back pain. He is completely neurologically intact. Duplex of his right lower extremity shows no clots. Vitals were remarkable for a mild tachycardia at 103-110. He did admit later that he was not taking any of his medications. I do favor the tachycardia is from not taking his oral metoprolol or amlodipine. He was given his Toprol prior to discharge. He became very agitated and wanted to leave as he did not want to see her in the brother made him come in. Consequently, he was discharged prior to the metoprolol being able to take affect. He was able to tolerate a turkey saline which and oral medications. I did consider the possibility of cardiac PE etiology of the tachycardia however since he has absolutely no complaints at time this is not pursued with additional lab work or imaging. I did feel this most likely secondary to him not taking his medications for the past 3 days. Other etiologies of possible infectious sources were considered such as epidural abscess versus discitis. Patient has absolutely no back pain or fever to support this and consequently did not obtain an MRI as I did not feel this is reasonable at this time. Discussed with Pt concerning signs and symptoms to watch out for. Pt was instructed to follow up with their PCP and discussed with the patient their option to return to the ED at anytime for persistent or worsening symptoms. The appropriate anticipatory guidance and out-patient management, including indications for return to the emergency department, were explained at length to the patient and understood. Medication Reconcilliation Current Medication List: was personally reviewed by me Blood Pressure Screening Patient's blood pressure: Elevated blood pressure Blood pressure disposition: Referred to PCP Impression Primary Impression: Leg pain, right Additional Impressions: Poor fluid intake Poor nutrition Scribe Attestation The scribe's documentation has been prepared under my direction and personally reviewed by me in its entirety. I confirm that the note above accurately reflects all work, treatment, procedures, and medical decision making performed by me. Departure Information Dispostion Home / Self-Care Referrals Patrick Albarran M.D. (PCP) Patient Instructions [facility] Additional Instructions Examination, lab work, urine, ultrasound and chest XR were unremarkable and did not find a cause of your symptoms in the ER today. In the ER you are only seen at one point in time and some conditions require follow up to be diagnosed. Take Tylenol (age and/or weight specific) as needed for pain, discomfort, and fevers. Drink more clear liquids for the next 3 to 4 days. Make a follow-up appointment with your family doctor for continued care and treatment in the next 1-2 days. If you have an increasing pain, discomfort, fevers, or difficulty swallowing, difficulty breathing, chest pain, recurrent vomiting or diarrhea, come back to the Emergency Department. Problem Qualifiers
== END 2016-12-17 22:52 | disposition home or self-care (01) ==
LOC: C.EDB 16:42 → C.EDA 22:52
DX: M79.604 Pain in right leg (principal); R63.8 Other symptoms and signs concerning food and fluid intake; R00.0 Tachycardia, unspecified; R32 Unspecified urinary incontinence; I35.0 Nonrheumatic aortic (valve) stenosis; N40.0 Benign prostatic hyperplasia without lower urinary tract symptoms; R09.89 Other specified symptoms and signs involving the circulatory and respiratory systems; I12.9 Hypertensive chronic kidney disease with stage 1 through stage 4 chronic kidney disease, or unspecified chronic kidney disease; N18.3 Chronic kidney disease, stage 3 (moderate); J44.9 Chronic obstructive pulmonary disease, unspecified; E78.5 Hyperlipidemia, unspecified; M10.9 Gout, unspecified; R09.02 Hypoxemia; M81.0 Age-related osteoporosis without current pathological fracture; I73.9 Peripheral vascular disease, unspecified; L40.50 Arthropathic psoriasis, unspecified; Z87.891 Personal history of nicotine dependence; Z79.82 Long term (current) use of aspirin; Z82.0 Family history of epilepsy and other diseases of the nervous system; Z80.3 Family history of malignant neoplasm of breast; Z80.0 Family history of malignant neoplasm of digestive organs; Z80.1 Family history of malignant neoplasm of trachea, bronchus and lung; Z84.1 Family history of disorders of kidney and ureter

== ENCOUNTER → 2017-03-18 | Outpatient (CLI) | payer BC ==
[~2017-03-18] MED LIST changes: +ALL300 PO; -ALLO300T2 PO; +ASPI-435 PO; +ATOR-24 PO; -AVD5 PO; -CEPH500C2 PO; -CYAN100T PO; -DTRSR4 PO; +DUTA1CAP3 PO; -GABA-113 PO; +GABA1CAP4 PO; +IPRA1AER2 INH; +MAGN400T6 PO; -MELA1TAB3 PO; +MELA1TAB4 PO; -METO25TA3 PO; +MOME220A INH; -NUTR-7 PO; +PANT20TA2 PO; -PANT40TA PO; +PHEN-876 PO; +TOLT1CAP3 PO; +TPRSR/25 PO; -TRAM-10 PO; +ULT50 PO
--- NOTE | 2017-03-19 07:35 | DIAGNOSTIC IMAGING REPORT ---
[facility] CLINICAL HISTORY: Nephrolithiasis. FINDINGS: 2 AP supine abdominal radiographs are compared to study dated 02/28/2015. There is a nonobstructed abdominal bowel gas pattern. Bowel gas almost completely obscures the renal shadows. Nonobstructing calculi versus vascular calcifications project over the right kidney. There is no radiographic evidence of ureteral stone. There are numerous pelvic phleboliths. Calcific pleural plaques are present both lung bases. Advanced atherosclerotic calcification is noted in the abdominal aorta and iliac vessels. The skeletal structures are osteopenic. Spondylotic and postoperative changes are identified in the lumbar spine. IMPRESSION: 1. Nonobstructed abdominal bowel gas pattern. Bowel gas and colonic contents largely obscured the renal shadows. 2. Nonobstructing calculi versus vascular calcifications project over the right kidney. Electronically signed by: Olman Poole M.D. 03/19/2017 7:34 AM Dictated Date/Time: 03/19/2017 7:31 AM
== END | disposition home or self-care (01) ==
LOC: C.RAD 12:29
PROVIDERS: ATTEND Urology
DX: N20.0 Calculus of kidney (principal)

== ENCOUNTER 2017-04-23 12:00 | Inpatient (IN) | payer BC, OTHER ==
[~2017-04-23] VITALS: Ht 172.7 cm; Wt 84.0 kg
[~2017-04-23 12:00] MED LIST changes: +DUTA1CAP17 PO; -DUTA1CAP3 PO; +GABA-1219 PO; -GABA1CAP4 PO
--- NOTE | 2017-04-23 13:25 | EMERGENCY ROOM VISIT NOTE ---
History Report prepared by Jay: Josef Gray Under the Supervision of: Dr. Paresh Azevedo M.D. First contact with patient: 12:44 Chief Complaint: DEHYDRATION Stated Complaint: DEHYDRATED, NAUSEA, WEAK Nursing Triage Summary: stomach pain and nasuea for the past couple days. "im dehydrated." Patient reports having 3 cans of boost today. 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 Positive weakness, increased tiredness, nausea, abdominal pain, loss of appetite, and constipation. Negative chest pain, shortness of breath, sick contacts, or vomiting. He currently rates his pain a 4/10 in severity. He notes that he had two bottles of Boost supplement, though he is still nauseous. He notes that he tried to see his PCP, though was advised to come to the ED for evaluation. He was recently on antibiotics a few weeks ago for a toe infection. 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 He denies any sick contacts. Review of Systems See HPI for pertinent positives and negatives. A total of ten systems were reviewed and were otherwise negative. 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 Surgical Problems: (1) History of back surgery Family History FH: Parkinson's disease FATHER FH: cancer MOTHER (Colon) SISTER (Breast, LungCA) Kidney disease Kidney stones Social History Smoking Status: Former Smoker Alcohol Use: none Drug Use: none Marital Status: Housing Status: lives alone Occupation Status: retired Current/Historical Medications Scheduled Allopurinol (Allopurinol), 300 MG PO QAM Amlodipine Besylate (Norvasc), 2.5 MG PO QAM Aspirin (Aspirin 81), 81 MG PO QAM Atorvastatin (Lipitor), 40 MG PO QPM Dutasteride (Dutasteride), 0.5 MG PO DAILY Gabapentin (Gabapentin), 300-600 MG PO TID Home O2 Therapy (Oxygen), 2 LITERS NA HS Magnesium Oxide (Mag-Ox), 400 MG PO BID Melatonin (Melatonin), 1 MG PO HS Metoprolol Succinate (Metoprolol Succinate ER), 25 MG PO QAM Mirabegron (Myrbetriq Er), 50 MG PO QPM Mometasone Furoate (Inhalation (Asmanex Twisthaler 120 Me), 2 PUFFS INH BID Pantoprazole Sodium (Protonix), 40 MG PO QAM Prednisone (Prednisone), 5 MG PO QPM Tamsulosin HCl (Tamsulosin HCl), 0.4 MG PO QPM Tolterodine Tartrate (Tolterodine Tartrate ER), 4 MG PO QPM Zoledronic Acid (Reclast), 5 MG IV YEARLY Scheduled PRN Ipratropium-Albuterol (Combivent Respimat), 1 PUFF INH QID PRN for Shortness of Breath Phenazopyridine HCl (Pyridium), 200 MG PO TID PRN for Pain with Urination Tramadol HCl (Tramadol HCl), 50-100 MG PO Q6H PRN for Pain Allergies Coded Allergies: Morphine (Verified Allergy, Unknown, "out of it for days", 04/23/17) Colchicine (Verified Adverse Reaction, Mild, GI upset, 04/23/17) Physical Exam Vital Signs Date Time Temp Pulse Resp B/P (MAP) Pulse Ox O2 Delivery O2 Flow Rate FiO2 04/23/17 16:59 108 24 143/102 96 Room Air 04/23/17 16:37 111 04/23/17 16:13 112 24 147/95 94 Room Air 04/23/17 15:39 111 22 142/96 96 Room Air 04/23/17 14:10 104 16 141/78 94 Room Air 04/23/17 12:41 107 04/23/17 12:33 107 16 113/77 94 Room Air 04/23/17 12:11 36.4 114 20 93/68 95 Room Air Physical Exam GENERAL: Awake, alert, well-appearing, NAD HENT: Normocephalic, atraumatic. Edentulous. EYES: Normal conjunctiva. Sclera non-icteric. NECK: Supple. No nuchal rigidity. FROM. RESPIRATORY: Decreased breath sounds at bases. CARDIAC: Tachycardic and regular rhythm, no MRG ABDOMEN: Soft, NTND, BS+ Non-surgical abdomen. MSK: No chest wall TTP. Absent second phalanx of left foot, swelling of right ankle. NEURO: GCS 15, CN 2-12 intact, moves all 4s on command SKIN: No rash or jaundice noted. Medical Decision & Procedures ER Provider Diagnostic Interpretation: Radiology results as stated below per my review and radiologist interpretation: CHEST ONE VIEW PORTABLE CLINICAL HISTORY: 86 years-old Male presenting with tachycardia. TECHNIQUE: Portable upright AP view of the chest was obtained. COMPARISON: 12/17/2016. FINDINGS: Patient is IBRAHIM rotated. Atherosclerosis of aortic arch. Tortuosity of the descending thoracic aorta. Cardiac silhouette enlarged. Heterogeneous appearance of lung markings with apical radiolucency. Hyperdensity at the lung bases suggests calcified pleural plaques, unchanged. No large effusion or pneumothorax. Osseous structures normal. Upper abdomen normal. IMPRESSION: 1. No convincing evidence of acute cardiopulmonary disease. 2. Cardiomegaly. 3. Findings suggest emphysema. 4. 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 Electronically signed by: Rufino Fregoso M.D. 04/23/2017 2:29 PM Dictated Date/Time: 04/23/2017 2:27 PM Laboratory Results 04/23/17 13:33 Red Blood Count 5.04, Mean Corpuscular Volume 86.9, Mean Corpuscular Hemoglobin 28.0, Mean Corpuscular Hemoglobin Concent 32.2, Mean Platelet Volume 9.9, Neutrophils (%) (Auto) 76.9, Lymphocytes (%) (Auto) 14.7, Monocytes (%) (Auto) 6.7, Eosinophils (%) (Auto) 1.0, Basophils (%) (Auto) 0.4, Neutrophils # (Auto) 7.98, Lymphocytes # (Auto) 1.53, Monocytes # (Auto) 0.70, Eosinophils # (Auto) 0.10, Basophils # (Auto) 0.04 04/23/17 13:33 Test 04/23/17 13:33 White Blood Count 10.38 K/uL (4.8-10.8) Red Blood Count 5.04 M/uL (4.7-6.1) Hemoglobin 14.1 g/dL (14.0-18.0) Hematocrit 43.8 % (42-52) Mean Corpuscular Volume 86.9 fL (80-100) Mean Corpuscular Hemoglobin 28.0 pg (25-34) Mean Corpuscular Hemoglobin Concent 32.2 g/dl (32-36) Platelet Count 204 K/uL (130-400) Mean Platelet Volume 9.9 fL (7.4-10.4) Neutrophils (%) (Auto) 76.9 % Lymphocytes (%) (Auto) 14.7 % Monocytes (%) (Auto) 6.7 % Eosinophils (%) (Auto) 1.0 % Basophils (%) (Auto) 0.4 % Neutrophils # (Auto) 7.98 K/uL (1.4-6.5) Lymphocytes # (Auto) 1.53 K/uL (1.2-3.4) Monocytes # (Auto) 0.70 K/uL (0.11-0.59) Eosinophils # (Auto) 0.10 K/uL (0-0.5) Basophils # (Auto) 0.04 K/uL (0-0.2) RDW Standard Deviation 45.2 fL (36.4-46.3) RDW Coefficient of Variation 14.2 % (11.5-14.5) Immature Granulocyte % (Auto) 0.3 % Immature Granulocyte # (Auto) 0.03 K/uL (0.00-0.02) Anion Gap 7.0 mmol/L (3-11) Est Creatinine Clear Calc Drug Dose 28.5 ml/min Estimated GFR () 38.1 Estimated GFR (Non- 32.9 BUN/Creatinine Ratio 22.7 (10-20) Calcium Level 10.0 mg/dl (8.5-10.1) Magnesium Level 2.7 mg/dl (1.8-2.4) Total Bilirubin 1.2 mg/dl (0.2-1) Direct Bilirubin 0.2 mg/dl (0-0.2) Aspartate Amino Transf (AST/SGOT) 24 U/L (15-37) Alanine Aminotransferase (ALT/SGPT) 26 U/L (12-78) Alkaline Phosphatase 114 U/L (45-117) Troponin I 0.026 ng/ml (0-0.045) Total Protein 7.7 gm/dl (6.4-8.2) Albumin 3.6 gm/dl (3.4-5.0) Lipase 186 U/L (73-393) Thyroid Stimulating Hormone (TSH) 5.270 uIu/ml (0.300-4.500) Free Thyroxine 1.16 ng/dl (0.80-1.60) Laboratory results reviewed by me Medications Administered Medications (Trade) Dose Ordered Sig/Alberto Route Start Time Stop Time Status Last Admin Dose Admin Sodium Chloride 1,000 ml @ 999 mls/hr Q1H1M STAT IV 04/23/17 13:36 04/23/17 14:36 DC 04/23/17 13:36 999 MLS/HR Sodium Chloride 500 ml @ 500 mls/hr Q1H STAT IV 04/23/17 15:58 04/23/17 16:57 DC 04/23/17 16:13 500 MLS/HR ECG Indication: tachycardia Rate (beats per minute): 108 Rhythm: sinus tachycardia Findings: other (LAD, TW flattening in aVL no other STS changes or TWI) ED Course 1318: The patient was evaluated in room B6. A complete history and physical exam was performed. 1355: I reassessed the patient at this time. He is resting comfortably. I discussed the results and treatment plan with the patient. I answered all pertaining questions that he had. He expressed understanding and verbalized agreement. The patient will be further evaluated. 1605: I spoke with Melony Argueta. We discussed the patients case. The patient will be evaluated by the [facility] for further management. 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 Prior records/ancillary studies reviewed and summarized above. Nursing notes reviewed. The patient's history was concerning for dehydration. Differential diagnosis: Etiologies such as metabolic, infection, hypo/hyperglycemia, electrolyte abnormalities, cardiac sources, intracerebral event, toxicologic, neurologic, as well as others were entertained. Patient was seen and evaluated the bedside. Patient has had some worsening dehydration-type symptoms as the patient has had poor by mouth intake. Patient does have some mild tachycardia but denies any chest pain or shortness of breath. Patient did have blood work that was completed. Patient has had a chest x-ray completed. Chest x-ray showed crushable asbestos exposure and emphysematous changes. Also mild cardiomegaly. Patient's blood work showed that he did not have an elevated white blood cell count. No anemia noted. Patient does have a cat with a mildly elevated BUN/creatinine compared to prior. Patient was initially given 1 L fluid additional 500 mL were given. I did speak with the medicine team as the patient still had mild tachycardia. I believe this is likely more dehydration in nature as the patient doesn't have any other infectious symptoms and the patient has a benign abdomen. Furthermore , the patient denies any chest pain or shortness of breath. Patient was admitted to the medicine team. Medication Reconcilliation Current Medication List: was personally reviewed by me Blood Pressure Screening Patient's blood pressure: Elevated blood pressure Blood pressure disposition: Referred to PCP Consults Time Called: 1559 Consulting Physician: Melony Argueta Returned Call: 1605 I spoke with Melony Argueta. We discussed the patients case. The patient will be evaluated by the [facility] for further management. Impression Primary Impression: MAXI (acute kidney injury) Additional Impression: Dehydration Scribe Attestation The scribe's documentation has been prepared under my direction and personally reviewed by me in its entirety. I confirm that the note above accurately reflects all work, treatment, procedures, and medical decision making performed by me. Departure Information Dispostion Being Evaluated By Hospitalist Referrals Patrick Albarran M.D. (PCP) Patient Instructions My [facility] Problem Qualifiers
[2017-04-23] MEDS ORDERED: SODIUM CHLORIDE 0.9% 1000ML 1,000 ML IV STA (13:36)
[2017-04-23 14:12] LABS: BASO % 0.4 %; BASO ABS # 0.04 K/uL (0-0.2); HEMATOCRIT 43.8 % (42-52); HEMOGLOBIN 14.1 g/dL (14.0-18.0); IG# 0.03 K/uL (0.00-0.02); LYMPH % 14.7 %; LYMPH ABS # 1.53 K/uL (1.2-3.4); MEAN CELL VOLUME 86.9 fL (80-100); MEAN CORPUSCULAR HGB CONC 32.2 g/dl (32-36); MEAN PLATELET VOLUME 9.9 fL (7.4-10.4); MONO % 6.7 %; NEUT % 76.9 %; NEUT ABS # 7.98 K/uL (1.4-6.5); PLATELET COUNT 204 K/uL (130-400); RED CELL DISTRIBUTION WIDTH CV 14.2 % (11.5-14.5); RED CELL DISTRIBUTION WIDTH SD 45.2 fL (36.4-46.3); WHITE BLOOD COUNT 10.38 K/uL (4.8-10.8)
--- NOTE | 2017-04-23 14:31 | DIAGNOSTIC IMAGING REPORT ---
CHEST ONE VIEW PORTABLE CLINICAL HISTORY: 86 years-old Male presenting with tachycardia. TECHNIQUE: Portable upright AP view of the chest was obtained. COMPARISON: 12/17/2016. FINDINGS: Patient is IBRAHIM rotated. Atherosclerosis of aortic arch. Tortuosity of the descending thoracic aorta. Cardiac silhouette enlarged. Heterogeneous appearance of lung markings with apical radiolucency. Hyperdensity at the lung bases suggests calcified pleural plaques, unchanged. No large effusion or pneumothorax. Osseous structures normal. Upper abdomen normal. IMPRESSION: 1. No convincing evidence of acute cardiopulmonary disease. 2. Cardiomegaly. 3. Findings suggest emphysema. 4. 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 Electronically signed by: Rufino Fregoso M.D. 04/23/2017 2:29 PM Dictated Date/Time: 04/23/2017 2:27 PM
[2017-04-23 14:37] LABS: ALBUMIN 3.6 gm/dl (3.4-5.0); CREATININE 1.83 mg/dl (0.60-1.40); POTASSIUM 3.7 mmol/L (3.5-5.1)
[2017-04-23 14:49] LABS: TOTAL PROTEIN 7.7 gm/dl (6.4-8.2)
[2017-04-23] MEDS ORDERED: SODIUM CHLORIDE 0.9% 500ML 500 ML IV STA (15:58)
[2017-04-23] MEDS ORDERED: ACETAMINOPHEN 325 MG TAB PO PRN (17:15)
[2017-04-23] MEDS ORDERED: ONDANSETRON INJ 2 MG/ML 2 ML VIAL IV PRN (17:15)
[2017-04-23] MEDS ORDERED: TRAMADOL HCL 50 MG TAB PO PRN (17:15)
[2017-04-23 18:10] VITALS: BP 142/83; PULSE 110; TEMP 36.4; BMI 28.2
--- NOTE | 2017-04-23 18:20 | NUR ---
A:/Patient ED admit stable. Oriented to room.
[2017-04-23] MEDS: SODIUM CHLORIDE 0.9% 1000ML 1,000 ML IV SCH (18:57)
[2017-04-23 19:00] VITALS: O2SAT 95
[2017-04-23] MEDS ORDERED: METOPROLOL SUCC 25MG EXT REL TAB PO ONE (19:15)
[2017-04-23 19:28] LABS: PTT PATIENT 27.1 SECONDS (21.0-31.0)
[2017-04-23] MEDS ORDERED: HYDROCORTISONE IV 50 MG in SYRINGE 0 ML IV ONE (19:45)
[2017-04-23] MEDS ORDERED: AMLODIPINE BESYLATE 5 MG TAB PO ONE (19:45)
--- NOTE | 2017-04-23 19:47 | History and Physical ---
History & Physical Date & Time of Service: Apr 23, 2017 ~ 18:45 Chief Complaint: Weakness, Nausea Primary Care Physician: Patrick Albarran M.D. History of Present Illness 86 year old male who presents to the ED with weakness and nausea. Patient reports his symptoms began about 4 days ago. He has had persistent nausea and very poor PO intake. He has not been able to his medications. He has not had any vomiting. He denies abdominal pain and diarrhea. He reports chronic urinary incontinence. Over the past few days he has had urinary hesitancy. He denies any burning with urination. No fevers or chills. He reports generalized weakness and has been sleeping a lot. He denies lightheadedness, dizziness, and syncopal events. He reports a non productive cough. No chest pain or shortness of breath. In the ED, patient is found to have creat 1.8 (elevated from his baseline). Other labs are unremarkable. He has mild tachycardia but is hemodynamically stable. He was given IVF. Past Medical/Surgical History Medical Problems: (1) Aortic stenosis Permanent Comment: echo 02/2017 - severe Status: Chronic (2) BPH (benign prostatic hypertrophy) Status: Chronic (3) CKD (chronic kidney disease), stage III Status: Chronic (4) COPD (chronic obstructive pulmonary disease) Status: Chronic (5) Dyslipidemia Status: Chronic (6) Gout Status: Chronic (7) H/O atrial flutter Permanent Comment: occurred postoperatively in 01/2014, converted to sinus rhythm with IV diltiazem Status: Chronic (8) H/O diastolic dysfunction Permanent Comment: grade I per echo 02/2017 Status: Chronic (9) History of duodenal ulcer Status: Chronic (10) Hypertension Status: Chronic (11) Nocturnal hypoxemia Status: Chronic (12) Osteoporosis Status: Chronic (13) Peripheral vascular disease Status: Chronic (14) Psoriatic arthritis Status: Chronic (15) Tobacco abuse Status: Resolved (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 Status: Resolved Surgical Problems: (1) History of back surgery Status: Chronic Family History non contributory due to patient's advanced age Social History Smoking Status: Former Smoker Alcohol Use: none Housing status: lives alone Immunizations History of Influenza Vaccine: Yes Influenza Vaccine Date: Jan 29, 2017 History of Tetanus Vaccine?: Yes Tetanus Immunization Date: Dec 13, 2011 History of Pneumococcal: Yes Pneumococcal Date: Feb 28, 2015 Multi-Drug Resistant Organisms History of MDRO: No Allergies Coded Allergies: Morphine (Verified Allergy, Unknown, "out of it for days", 04/23/17) Colchicine (Verified Adverse Reaction, Mild, GI upset, 04/23/17) Home Medications Scheduled Allopurinol (Allopurinol), 300 MG PO QAM Amlodipine Besylate (Norvasc), 2.5 MG PO QAM Aspirin (Aspirin 81), 81 MG PO QAM Atorvastatin (Lipitor), 40 MG PO QPM Dutasteride (Dutasteride), 0.5 MG PO DAILY Gabapentin (Gabapentin), 300-600 MG PO TID Home O2 Therapy (Oxygen), 2 LITERS NA HS Magnesium Oxide (Mag-Ox), 400 MG PO BID Melatonin (Melatonin), 1 MG PO HS Metoprolol Succinate (Metoprolol Succinate ER), 25 MG PO QAM Mirabegron (Myrbetriq Er), 50 MG PO QPM Mometasone Furoate (Inhalation (Asmanex Twisthaler 120 Me), 2 PUFFS INH BID Pantoprazole Sodium (Protonix), 40 MG PO QAM Prednisone (Prednisone), 5 MG PO QPM Tamsulosin HCl (Tamsulosin HCl), 0.4 MG PO QPM Tolterodine Tartrate (Tolterodine Tartrate ER), 4 MG PO QPM Zoledronic Acid (Reclast), 5 MG IV YEARLY Scheduled PRN Ipratropium-Albuterol (Combivent Respimat), 1 PUFF INH QID PRN for Shortness of Breath Phenazopyridine HCl (Pyridium), 200 MG PO TID PRN for Pain with Urination Tramadol HCl (Tramadol HCl), 50-100 MG PO Q6H PRN for Pain Review of Systems ROS per HPI, all other systems reviewed and negative Physical Exam Vital Signs Date Time Temp Pulse Resp B/P (MAP) Pulse Ox O2 Delivery O2 Flow Rate FiO2 04/23/17 18:10 36.4 110 20 142/83 Room Air 04/23/17 17:55 113 20 132/99 95 04/23/17 16:59 108 24 143/102 96 Room Air 04/23/17 16:37 111 04/23/17 16:13 112 24 147/95 94 Room Air 04/23/17 15:39 111 22 142/96 96 Room Air 04/23/17 14:10 104 16 141/78 94 Room Air 04/23/17 12:41 107 04/23/17 12:33 107 16 113/77 94 Room Air 04/23/17 12:11 36.4 114 20 93/68 95 Room Air General Appearance: WD/WN, no apparent distress Head: normocephalic, atraumatic Eyes: normal inspection, EOMI, sclerae normal ENT: hearing grossly normal, + pertinent finding (mucous membranes dry) Neck: supple, no JVD, trachea midline Respiratory/Chest: lungs clear, normal breath sounds, no respiratory distress Cardiovascular: no edema, + tachycardia (HR in the low 100s, rhythm regular), + systolic murmur Abdomen/GI: normal bowel sounds, non tender, soft, no organomegaly Extremities/Musculoskelatal: normal inspection, no calf tenderness, normal capillary refill, + pertinent finding (s/p right and left 2nd toe amuptations) Neurologic/Psych: no motor/sensory deficits, alert, normal mood/affect, oriented x 3 Skin: normal color, warm/dry, + pertinent finding (small abrasions noted to left 3rd toe; scabbed over without surrounding redness and drainage) Diagnostics Laboratory Results Results Past 24 Hours Test 04/23/17 13:33 Range/Units White Blood Count 10.38 4.8-10.8 K/uL Red Blood Count 5.04 4.7-6.1 M/uL Hemoglobin 14.1 14.0-18.0 g/dL Hematocrit 43.8 42-52 % Mean Corpuscular Volume 86.9 80-100 fL Mean Corpuscular Hemoglobin 28.0 25-34 pg Mean Corpuscular Hemoglobin Concent 32.2 32-36 g/dl Platelet Count 204 130-400 K/uL Mean Platelet Volume 9.9 7.4-10.4 fL Neutrophils (%) (Auto) 76.9 % Lymphocytes (%) (Auto) 14.7 % Monocytes (%) (Auto) 6.7 % Eosinophils (%) (Auto) 1.0 % Basophils (%) (Auto) 0.4 % Neutrophils # (Auto) 7.98 1.4-6.5 K/uL Lymphocytes # (Auto) 1.53 1.2-3.4 K/uL Monocytes # (Auto) 0.70 0.11-0.59 K/uL Eosinophils # (Auto) 0.10 0-0.5 K/uL Basophils # (Auto) 0.04 0-0.2 K/uL RDW Standard Deviation 45.2 36.4-46.3 fL RDW Coefficient of Variation 14.2 11.5-14.5 % Immature Granulocyte % (Auto) 0.3 % Immature Granulocyte # (Auto) 0.03 0.00-0.02 K/uL Sodium Level 138 136-145 mmol/L Potassium Level 3.7 3.5-5.1 mmol/L Chloride Level 102 98-107 mmol/L Carbon Dioxide Level 29 21-32 mmol/L Anion Gap 7.0 3-11 mmol/L Blood Urea Nitrogen 42 7-18 mg/dl Creatinine 1.83 0.60-1.40 mg/dl Est Creatinine Clear Calc Drug Dose 28.5 ml/min Estimated GFR () 38.1 Estimated GFR (Non- 32.9 BUN/Creatinine Ratio 22.7 10-20 Random Glucose 99 70-99 mg/dl Calcium Level 10.0 8.5-10.1 mg/dl Magnesium Level 2.7 1.8-2.4 mg/dl Total Bilirubin 1.2 0.2-1 mg/dl Direct Bilirubin 0.2 0-0.2 mg/dl Aspartate Amino Transf (AST/SGOT) 24 15-37 U/L Alanine Aminotransferase (ALT/SGPT) 26 12-78 U/L Alkaline Phosphatase 114 45-117 U/L Troponin I 0.026 0-0.045 ng/ml Total Protein 7.7 6.4-8.2 gm/dl Albumin 3.6 3.4-5.0 gm/dl Lipase 186 73-393 U/L Thyroid Stimulating Hormone (TSH) 5.270 0.300-4.500 uIu/ml Free Thyroxine 1.16 0.80-1.60 ng/dl Diagnostic Radiology CXR IMPRESSION: 1. No convincing evidence of acute cardiopulmonary disease. 2. Cardiomegaly. 3. Findings suggest emphysema. 4. 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 Impression Assessment and Plan MAXI ON CKD STAGE III - admit to med/surg - patient presenting with persistent nausea and poor PO intake x 4 days; in the ED, found to have creat 1.8 (up from baseline ~ 1.4) - likely prerenal due to decreased PO intake - no abdominal pain by history or exam so will hold on abdominal imaging at this time - check U/A and influenza swab - IVF - clear liquids, advance as tolerated HTN - BPs and HR mildly elevated - likely due to missing metoprolol and amlodipine the past few days - give home metoprolol and amlodipine doses now, monitor BP, adjust as needed SEVERE AORTIC STENOSIS - monitor volume status closely PSORIATIC ARTHRITIS - continue chronic prednisone; BPs stable, no role for stress dose steroids at this time COPD - no signs of acute exacerbation - continue home inhalers BPH - continue home meds GOUT - continue allopurinol DVT PROPHYLAXIS - SQ Heparin CODE STATUS - Patient is a full code as per my discussion with him. DISPO - In my clinical judgment this beneficiary meets acute admission criteria, established by [facility], that includes being hospitalized through two midnights. - PT/OT, case management consults; patient's daughter expressing concern that he may need home health nursing set up Advanced Directives Existing Living Will: Yes Existing Power of Ceramic Sprayer: Yes VTE Prophylaxis VTE Risk Assessment Done? Y/N: Yes Risk Level: Moderate Given or contraindicated: Unfractionated heparin SQ Note ATTENDING ADDENDUM Record reviewed. Patient interviewed and examined. Care coordinated with BIA Argueta. Please refer to her documentation for patient's history. Briefly, 86 YO male with history of hypertension, atrial flutter, diastolic CHF , severe aortic stenosis, COPD, chronic steroid therapy for psoriatic arthritis , and other problems as noted. Experiencing anorexia and nausea over past few days; no emesis; no abdominal pain. Unable to take meds or drink much fluid. EXAM: General- no acute distress VS- as noted HEENT- anicteric Neck- no JVD Lungs- diffuse mild wheezing Heart- RRR, IV / systolic murmur at base Abdomen- + BS, soft, nontender Extremities- no pretibial edema or calf tenderness Neuro- alert DATA: BUN 42 / creatinine 1.83. Other lab studies as noted. CXR- cardiomegaly, emphysema, calcified pleural plaques. EKG performed at 13:[address] at 110 / minute, left axis deviation, left anterior fascicular block. ASSESSMENT AND PLAN: Acute kidney injury secondary to decreased oral intake. Receiving IV fluids. Etiology of nausea and anorexia uncertain. History of PUD, volvulus of stomach, renal calculi. Will need further evaluation if symptoms do not improve. On chronic prednisone therapy for psoriatic arthritis. IV hydrocortisone until symptoms improve. Please refer to BOONE Ridley's documentation for discussion of other issues. Micah Rivas MD .
[2017-04-23] MEDS: MOMETASONE FUROATE 14 PUFF/1 INHALER INH SCH (20:07)
[2017-04-23] MEDS: MIRABEGRON ER 25 MG TAB PO SCH (20:08)
[2017-04-23] MEDS: TOLTERODINE TARTRATE LA 4 MG CAPCR PO SCH (20:09)
[2017-04-23] MEDS: GABAPENTIN 300 MG CAP PO SCH (20:10)
[2017-04-23] MEDS: TAMSULOSIN HCL 0.4 MG CAP PO SCH (20:11)
[2017-04-23] MEDS: ATORVASTATIN 40 MG TAB PO SCH (20:11)
[2017-04-23] MEDS: MAGNESIUM OXIDE 400 MG TAB PO SCH (20:13)
[2017-04-23] MEDS: HEPARIN SOD 5000 UNIT/0.5 ML CARP SQ SCH (21:17)
[2017-04-23 21:25] LABS: INFLUENZA A PCR Neg for Influ A (NEG); INFLUENZA B PCR Neg for Influ B (NEG)
--- NOTE | 2017-04-23 21:43 | NUR ---
A: Pt admitted d/t MAXI, alert and orientedx4, pleasant, denies pain, with ongoing IVF at R FA, Lungs are clear and diminished, use oxygen at HS as needed, Diet well tolerated, +BS, soft, non tender, non distended abdomen, +PP, BLE trace edema, VSS, needs attended, voids in the urinal, it can be incontinent at times, bed alarm on, 1 assist OOB with cane, call kinney within reach, Pt agree to ring for any assistance, Will continue monitoring.
[2017-04-23 22:56] VITALS: BP 126/89; PULSE 93; TEMP 36.7; O2SAT 97
[2017-04-23] MEDS: AVODART~ORDER AWAITING ACTION SCH (23:43)
[2017-04-24] VITALS: O2SAT 95
[2017-04-24] MEDS ORDERED: SIMETHICONE 80 MG CHEW PO PRN (02:15)
[2017-04-24] MEDS ORDERED: HYDROCORTISONE IV 25 MG in SYRINGE 0 ML IV SCH (06:00)
[2017-04-24] MEDS: HEPARIN SOD 5000 UNIT/0.5 ML CARP SQ SCH ×3 (06:19→21:05)
[2017-04-24 06:25] LABS: HEMATOCRIT 35.5 % (42-52); HEMOGLOBIN 11.4 g/dL (14.0-18.0); MEAN CELL VOLUME 87.2 fL (80-100); MEAN CORPUSCULAR HGB CONC 32.1 g/dl (32-36); MEAN PLATELET VOLUME 9.9 fL (7.4-10.4); PLATELET COUNT 178 K/uL (130-400); RED CELL DISTRIBUTION WIDTH CV 14.1 % (11.5-14.5); RED CELL DISTRIBUTION WIDTH SD 44.8 fL (36.4-46.3); WHITE BLOOD COUNT 6.94 K/uL (4.8-10.8)
[2017-04-24 06:54] LABS: CALCIUM 7.9 mg/dl (8.5-10.1); CREATININE 1.36 mg/dl (0.60-1.40); POTASSIUM 3.9 mmol/L (3.5-5.1)
[2017-04-24] MEDS: SODIUM CHLORIDE 0.9% 1000ML 1,000 ML IV SCH (07:16)
[2017-04-24] MEDS: AVODART~ORDER AWAITING ACTION SCH ×2 (08:00→15:28)
[2017-04-24 08:23] VITALS: BP 162/91; PULSE 79; TEMP 36.8; O2SAT 94
[2017-04-24] MEDS: MAGNESIUM OXIDE 400 MG TAB PO SCH ×2 (08:53→21:10)
[2017-04-24] MEDS: ASPIRIN 81 MG ECTAB PO SCH (08:53)
[2017-04-24] MEDS: MOMETASONE FUROATE 14 PUFF/1 INHALER INH SCH ×2 (08:53→21:09)
[2017-04-24] MEDS: GABAPENTIN 300 MG CAP PO SCH ×3 (08:54→21:09)
[2017-04-24] MEDS: PANTOprazole SOD 40 MG TAB PO SCH (08:54)
[2017-04-24] MEDS: METOPROLOL SUCC 25MG EXT REL TAB PO SCH (08:54)
[2017-04-24] MEDS: ALLOPURINOL 300 MG TAB PO SCH (08:55)
[2017-04-24] MEDS: AMLODIPINE BESYLATE 5 MG TAB PO SCH (08:56)
[2017-04-24] MEDS ORDERED: IPRATROPIUM BROMIDE/ALBUTEROL respimat INH INH PRN (10:45)
[2017-04-24 11:37] VITALS: Ht 172.7 cm; Wt 84.0 kg
--- NOTE | 2017-04-24 13:44 | NUR ---
Case Management- Met with patient in room per physician consult. Patient reports he lives with his son in a multi level home. He occupies the first floor to minimize steps. He has four steps to enter has hand rails on both sides. He normally uses a cane for ambulation and still drives. Patent reports he has trouble getting out of the tub so his son installed grab bars. He is independent with dressing his children do he cleaning Patient reports he has trouble standing for long periods of time he looses his balance frequently. 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 Patient reports he would like to return home did leave home health list on bedside table. Ppatient will need pt/ot evals. CM following
[2017-04-24 16:01] VITALS: BP 104/72; PULSE 99; TEMP 36.2; O2SAT 90
--- NOTE | 2017-04-24 17:33 | Progress Note ---
Internal Med Progress Note Date of Service: Apr 24, 2017. Provider Documentation: SUBJECTIVE: sitting on the bed comfortably eating fine today no nausea or abdominal pain afebrile says ambulated fine with PT want to go home but ok to stay one more day OBJECTIVE: Vital Signs-as noted below Exam: General-alert and oriented. Not in distress ENT-Normal hearing Neck-no neck masses supple Lungs-cta b/l no wheezing no crackles Heart-S1 and S2 heard regular rate and rthym, no murmurs Abdomen-Soft bowel sounds present non tender no distension Extremities-No edema no erythema Neuro-alert and awake moves extremities Lab data as noted below. ASSESSMENT & PLAN: MAXI ON CKD STAGE III secondary to poor oral intake for 4 days presented with cr 1.8 received fluids resolved with cr 1.3 today. HTN on amlodipine and metoprolol will monitor. SEVERE AORTIC STENOSIS will monitor volume status closely PSORIATIC ARTHRITIS continue chronic prednisone; COPD mahamed on home inhalers BPH home meds GOUT On allopurinol DVT PROPHYLAXIS SQ Heparin CODE STATUS Full Code DISPO pt/ot possible d/c in am Vital Signs: Date Time Temp Pulse Resp B/P (MAP) Pulse Ox O2 Delivery O2 Flow Rate FiO2 04/24/17 16:01 36.2 99 18 104/72 (83) 90 Room Air 04/24/17 08:23 36.8 79 16 162/91 (114) 94 Room Air 04/24/17 07:40 Room Air 04/24/17 00:00 95 Room Air 04/23/17 22:56 36.7 93 18 126/89 (101) 97 Room Air 04/23/17 19:00 95 Room Air 04/23/17 18:10 36.4 110 20 142/83 Room Air 04/23/17 17:55 113 20 132/99 95 Lab Results: Results Past 24 Hours Test 04/23/17 19:13 04/23/17 21:00 04/24/17 06:05 Range/Units Influenza Type A (RT-PCR) Neg for Influ A NEG Influenza Type B (RT-PCR) Neg for Influ B NEG Urine Color YELLOW Urine Appearance CLEAR CLEAR Urine pH 5.0 4.5-7.5 Urine Specific [place] 1.024 1.000-1.030 Urine Protein TRACE NEG Urine Glucose (UA) NEG NEG Urine Ketones NEG NEG Urine Occult Blood NEG NEG Urine Nitrite NEG NEG Urine Bilirubin NEG NEG Urine Urobilinogen NEG NEG Urine Leukocyte Esterase TRACE NEG Urine WBC (Auto) 1-5 0-5 /hpf Urine RBC (Auto) 0-4 0-4 /hpf Urine Hyaline Casts (Auto) 1-5 0-5 /lpf Urine Epithelial Cells (Auto) 5-10 0-5 /lpf Urine Bacteria (Auto) NEG NEG White Blood Count 6.94 4.8-10.8 K/uL Red Blood Count 4.07 4.7-6.1 M/uL Hemoglobin 11.4 14.0-18.0 g/dL Hematocrit 35.5 42-52 % Mean Corpuscular Volume 87.2 80-100 fL Mean Corpuscular Hemoglobin 28.0 25-34 pg Mean Corpuscular Hemoglobin Concent 32.1 32-36 g/dl RDW Standard Deviation 44.8 36.4-46.3 fL RDW Coefficient of Variation 14.1 11.5-14.5 % Platelet Count 178 130-400 K/uL Mean Platelet Volume 9.9 7.4-10.4 fL Sodium Level 137 136-145 mmol/L Potassium Level 3.9 3.5-5.1 mmol/L Chloride Level 106 98-107 mmol/L Carbon Dioxide Level 26 21-32 mmol/L Anion Gap 5.0 3-11 mmol/L Blood Urea Nitrogen 31 7-18 mg/dl Creatinine 1.36 0.60-1.40 mg/dl Est Creatinine Clear Calc Drug Dose 41.9 ml/min Estimated GFR () 54.6 Estimated GFR (Non- 47.1 BUN/Creatinine Ratio 23.1 10-20 Random Glucose 118 70-99 mg/dl Calcium Level 7.9 8.5-10.1 mg/dl Chemistry Specimen Hemolysis Microbiology Results 04/23/17 Urine Culture - Preliminary, Resulted NO GROWTH - LESS THAN 1,000 COLONIES/...
[2017-04-24] MEDS: MIRABEGRON ER 25 MG TAB PO SCH (21:09)
[2017-04-24] MEDS: ATORVASTATIN 40 MG TAB PO SCH (21:09)
[2017-04-24] MEDS: TAMSULOSIN HCL 0.4 MG CAP PO SCH (21:09)
[2017-04-24] MEDS: TOLTERODINE TARTRATE LA 4 MG CAPCR PO SCH (21:10)
--- NOTE | 2017-04-24 22:04 | NUR ---
ID: Pt is A&Ox4. VSS. Denies pain at this time. OOB with 1 assist and a cane. Tolerating regular, dental soft diet well. Plan is to discharge home with home health, possibly tomorrow.
[2017-04-25] VITALS: O2SAT 95
[2017-04-25 00:09] VITALS: BP 162/88; PULSE 73; TEMP 36.6; O2SAT 97
[2017-04-25] MEDS: HEPARIN SOD 5000 UNIT/0.5 ML CARP SQ SCH (06:39)
[2017-04-25 07:44] VITALS: BP 144/88; PULSE 86; TEMP 36.4; O2SAT 93
[2017-04-25] MEDS: GABAPENTIN 300 MG CAP PO SCH (07:56)
[2017-04-25] MEDS: METOPROLOL SUCC 25MG EXT REL TAB PO SCH (07:56)
[2017-04-25] MEDS: AVODART~ORDER AWAITING ACTION SCH ×2 (07:56)
[2017-04-25] MEDS: ASPIRIN 81 MG ECTAB PO SCH (07:57)
[2017-04-25] MEDS: PANTOprazole SOD 40 MG TAB PO SCH (07:57)
[2017-04-25] MEDS: AMLODIPINE BESYLATE 5 MG TAB PO SCH (07:57)
[2017-04-25] MEDS: ALLOPURINOL 300 MG TAB PO SCH (07:58)
[2017-04-25] MEDS: MAGNESIUM OXIDE 400 MG TAB PO SCH (07:58)
[2017-04-25] MEDS: MOMETASONE FUROATE 14 PUFF/1 INHALER INH SCH (07:58)
--- NOTE | 2017-04-25 09:00 | NUR ---
Case Management- Met with patient in room. Patient reports he is to be discharged today. Spoke with patient regarding home health that was recommended by therapy. Per patient he has list he needs to discuss this with family and a friend who is a home health nurse. Per patient he will ogo to his pcp when a decision is made. CM following
--- NOTE | 2017-04-25 10:19 | Discharge Instructions ---
Discharge Instructions Date of Service Apr 25, 2017. Admission Reason for Admission: MAXI Discharge Discharge Diagnosis / Problem: MAXI, dehydration Discharge Goals Goal(s): Decrease discomfort, Improve function Activity Recommendations Activity Limitations: resume your previous activity . Instructions / Follow-Up Instructions / Follow-Up FOLLOWUP WITH FAMILY DOCTOR ON Apr 10:55AM Current Hospital Diet Patient's current hospital diet: Regular Diet Discharge Diet Recommended Diet: AHA Diet (Heart Healthy) Pending Studies Studies pending at discharge: no Medical Emergencies . Who to Call and When: Medical Emergencies: If at any time you feel your situation is an emergency, please call 911 immediately. . Non-Emergent Contact Non-Emergency issues call your: Primary Care Provider . . "Provider Documentation" section prepared by Ole Marte. . VTE Core Measure Inpt VTE Proph given/why not?: Unfractionated heparin SQ
[2017-04-25 10:21] VITALS: BP 144/88; PULSE 86; TEMP 36.4; O2SAT 93
--- NOTE | 2017-04-25 11:33 | NUR ---
patient washing self at sink. set up required. patient is awaiting arrival of his ride home today.
--- NOTE | 2017-04-25 12:38 | NUR ---
discharge instructions and medications reviewed with patient. verbalized understanding. IV site discontinued catheter intact. pt continues to wait for ride home. instructed pt to ring call kinney when he is ready for volunteer wheelchair escort. call kinney in reach. lunch eaten.
--- NOTE | 2017-04-25 20:01 | Progress Note ---
Internal Med Progress Note Date of Service: Apr 25, 2017. Provider Documentation: SUBJECTIVE: sitting on the bed comfortably eating fine no nausea ambulating ok want to go home OBJECTIVE: Vital Signs-as noted below Exam: General-alert and oriented. Not in distress ENT-Normal hearing Neck-no neck masses supple Lungs-cta b/l no wheezing no crackles Heart-S1 and S2 heard regular rate and rthym, no murmurs Abdomen-Soft bowel sounds present non tender no distension Extremities-No edema no erythema Neuro-alert and awake moves extremities Lab data as noted below. ASSESSMENT & PLAN: MAXI ON CKD STAGE III secondary to poor oral intake for 4 days presented with cr 1.8 received fluids resolved with cr 1.3 y. HTN on amlodipine and metoprolol will monitor. SEVERE AORTIC STENOSIS will monitor volume status closely PSORIATIC ARTHRITIS continue chronic prednisone; COPD mahamed on home inhalers BPH home meds GOUT On allopurinol discharged home Vital Signs: Date Time Temp Pulse Resp B/P (MAP) Pulse Ox O2 Delivery O2 Flow Rate FiO2 04/25/17 10:21 36.4 86 16 93 Room Air 04/25/17 08:00 Room Air 04/25/17 07:44 36.4 86 16 144/88 (106) 93 Room Air 04/25/17 00:09 36.6 73 20 162/88 (112) 97 Room Air 04/25/17 00:00 95 Room Air 04/24/17 20:00 Room Air
--- NOTE | 2017-04-25 20:02 | Discharge Summary ---
Discharge Summary Date of Service Apr 25, 2017. Discharge Summary Admission Date: Apr 23, 2017 at 17:06 Discharge Date: Apr 25, 2017 Discharge Disposition: Home Principal Diagnosis: MAXI dehydration Secondary Diagnoses/Problems: (1) Aortic stenosis Permanent Comment: echo 02/2017 - severe Status: Chronic (2) BPH (benign prostatic hypertrophy) Status: Chronic (3) CKD (chronic kidney disease), stage III Status: Chronic (4) COPD (chronic obstructive pulmonary disease) Status: Chronic (5) Dyslipidemia Status: Chronic (6) Gout Status: Chronic (7) H/O atrial flutter Permanent Comment: occurred postoperatively in 01/2014, converted to sinus rhythm with IV diltiazem Status: Chronic (8) H/O diastolic dysfunction Permanent Comment: grade I per echo 02/2017 Status: Chronic (9) History of duodenal ulcer Status: Chronic (10) Hypertension Status: Chronic (11) Nocturnal hypoxemia Status: Chronic (12) Osteoporosis Status: Chronic (13) Peripheral vascular disease Status: Chronic (14) Psoriatic arthritis Status: Chronic (15) Tobacco abuse Status: Resolved (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 Status: Resolved Procedures: CXR: 1. No convincing evidence of acute cardiopulmonary disease. 2. Cardiomegaly. 3. Findings suggest emphysema. 4. 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 Medication Reconciliation Continued Medications: Allopurinol (Allopurinol) 300 Mg Tab 300 MG PO QAM Amlodipine Besylate (Norvasc) 2.5 Mg Tab 2.5 MG PO QAM Aspirin (Aspirin 81) 81 Mg Tab 81 MG PO QAM Atorvastatin (Lipitor) 40 Mg Tab 40 MG PO QPM TAKE THIS MEDICATION ONCE DAILY WITH EVENING MEAL Dutasteride (Dutasteride) 0.5 Mg Cap 0.5 MG PO DAILY TAKE THIS MEDICATION ONCE DAILY WITH EVENING MEAL Gabapentin (Gabapentin) 300 Mg Cap 300-600 MG PO TID Home O2 Therapy (Oxygen) Gas 2 LITERS NA HS USE DURING ALL PERIODS OF SLEEP Ipratropium-Albuterol (Combivent Respimat) 1 Aer Aer 1 PUFF INH QID PRN for Shortness of Breath Magnesium Oxide (Mag-Ox) 400 Mg Tab 400 MG PO BID, TAB Melatonin (Melatonin) 1 Mg Tab 1 MG PO HS Metoprolol Succinate (Metoprolol Succinate ER) 25 Mg Tabcr 25 MG PO QAM Mirabegron (Myrbetriq Er) 50 Mg Tab 50 MG PO QPM Mometasone Furoate (Inhalation (Asmanex Twisthaler 120 Me) 220 Mcg/Inh Aer 2 PUFFS INH BID RINSE MOUTH AFTER USE Pantoprazole Sodium (Protonix) 20 Mg Tab 40 MG PO QAM Phenazopyridine HCl (Pyridium) 200 Mg Tab 200 MG PO TID PRN for Pain with Urination, TAB TAKE THIS MEDICATION AFTER MEALS FOR PAIN WITH URINATION Prednisone (Prednisone) 5 Mg Tab 5 MG PO QPM Tamsulosin HCl (Tamsulosin HCl) 0.4 Mg Cap 0.4 MG PO QPM Tolterodine Tartrate (Tolterodine Tartrate ER) 4 Mg Cap 4 MG PO QPM Tramadol HCl (Tramadol HCl) 50 Mg Tab 50-100 MG PO Q6H PRN for Pain Zoledronic Acid (Reclast) 5 Mg/100 Ml Inj 5 MG IV YEARLY Admission Information HPI (per Admitting provider): 86 year old male who presents to the ED with weakness and nausea. Patient reports his symptoms began about 4 days ago. He has had persistent nausea and very poor PO intake. He has not been able to his medications. He has not had any vomiting. He denies abdominal pain and diarrhea. He reports chronic urinary incontinence. Over the past few days he has had urinary hesitancy. He denies any burning with urination. No fevers or chills. He reports generalized weakness and has been sleeping a lot. He denies lightheadedness, dizziness, and syncopal events. He reports a non productive cough. No chest pain or shortness of breath. In the ED, patient is found to have creat 1.8 (elevated from his baseline). Other labs are unremarkable. He has mild tachycardia but is hemodynamically stable. He was given IVF. Physical Exam (per Admitting): General Appearance: WD/WN, no apparent distress Head: normocephalic, atraumatic Eyes: normal inspection, EOMI, sclerae normal ENT: hearing grossly normal, + pertinent finding (mucous membranes dry) Neck: supple, no JVD, trachea midline Respiratory/Chest: lungs clear, normal breath sounds, no respiratory distress Cardiovascular: no edema, + tachycardia (HR in the low 100s, rhythm regular) , + systolic murmur Abdomen/GI: normal bowel sounds, non tender, soft, no organomegaly Extremities/Musculoskelatal: normal inspection, no calf tenderness, normal capillary refill, + pertinent finding (s/p right and left 2nd toe amuptations) Neurologic/Psych: no motor/sensory deficits, alert, normal mood/affect, oriented x 3 Skin: normal color, warm/dry, + pertinent finding (small abrasions noted to left 3rd toe; scabbed over without surrounding redness and drainage) Hospital Course MAXI ON CKD STAGE III secondary to poor oral intake for 4 days presented with cr 1.8 received fluids resolved with cr 1.3 y. HTN on amlodipine and metoprolol will monitor. SEVERE AORTIC STENOSIS will monitor volume status closely PSORIATIC ARTHRITIS continue chronic prednisone; COPD mahamed on home inhalers BPH home meds GOUT On allopurinol discharged home Total time spent on discharge = 35MINUTES This includes examination of the patient, discharge planning, medication reconciliation, and communication with other providers. Discharge Instructions Please take this sheet to every appointment for the next month Discharge Instructions Date of Service Apr 25, 2017. Admission Reason for Admission: MAXI Discharge Discharge Diagnosis / Problem: MAXI, dehydration Discharge Goals Goal(s): Decrease discomfort, Improve function Activity Recommendations Activity Limitations: resume your previous activity . Instructions / Follow-Up Instructions / Follow-Up FOLLOWUP WITH FAMILY DOCTOR ON Apr 10:55AM Current Hospital Diet Patient's current hospital diet: Regular Diet Discharge Diet Recommended Diet: AHA Diet (Heart Healthy) Pending Studies Studies pending at discharge: no Medical Emergencies . Who to Call and When: Medical Emergencies: If at any time you feel your situation is an emergency, please call 911 immediately. . Non-Emergent Contact Non-Emergency issues call your: Primary Care Provider . . "Provider Documentation" section prepared by Ole Marte. . VTE Core Measure Inpt VTE Proph given/why not?: Unfractionated heparin SQ
[2017-07-02] MEDS ORDERED: PANT40TA PO (10:13)
[2017-11-08] MEDS ORDERED: CEPH500C2 PO (12:12)
[2017-11-26] MEDS ORDERED: KFL500 PO (16:06)
[2017-11-26] MEDS ORDERED: SNTO30 EXT (16:17)
[2017-12-18] MEDS ORDERED: PLV75 PO (12:35)
== END 2017-04-25 13:25 | disposition home or self-care (01) | DRG 683 ==
LOC: C.EDB 12:02 → C.MS2W 17:06 → ENRESERV 17:19
PROVIDERS: ADMIT Hospitalist; ATTEND Internal Medicine
DX: N17.9 Acute kidney failure, unspecified (principal); I13.0 Hypertensive heart and chronic kidney disease with heart failure and stage 1 through stage 4 chronic kidney disease, or unspecified chronic kidney disease; I50.30 Unspecified diastolic (congestive) heart failure; N18.3 Chronic kidney disease, stage 3 (moderate); R63.0 Anorexia; R11.0 Nausea; I35.0 Nonrheumatic aortic (valve) stenosis; L40.50 Arthropathic psoriasis, unspecified; J44.9 Chronic obstructive pulmonary disease, unspecified; N40.0 Benign prostatic hyperplasia without lower urinary tract symptoms; R32 Unspecified urinary incontinence; R39.11 Hesitancy of micturition; M10.9 Gout, unspecified; Z87.11 Personal history of peptic ulcer disease; Z87.442 Personal history of urinary calculi; Z87.891 Personal history of nicotine dependence; Z99.81 Dependence on supplemental oxygen; Z79.51 Long term (current) use of inhaled steroids; Z79.52 Long term (current) use of systemic steroids; Z79.82 Long term (current) use of aspirin; Z79.83 Long term (current) use of bisphosphonates; Z79.899 Other long term (current) drug therapy

== ENCOUNTER → 2017-07-11 | Day surgery (SDC) | payer BC ==
[2017-07-02 10:17] VITALS: BMI 26.0
[~2017-07-11] VITALS: Ht 177.8 cm; Wt 81.8 kg
[~2017-07-11] MED LIST changes: -DUTA1CAP17 PO; +DUTA1CAP3 PO; +ETOMIDATE 2 MG/ML 20 ML VIAL IV ONE; +LIDOCAINE HCL 2% 2 ML VIAL (20MG/ML) ONE; -MELA1TAB4 PO; +MIDAZOLAM HCL 1 MG/ML 2ML VIAL ONE; +ONDANSETRON INJ 2 MG/ML 2 ML VIAL ONE; -PANT20TA2 PO; +PANT40TA PO; +PROPOFOL IV EMULSION 10 MG/ML 20 ML VIAL IV ONE; +SODIUM CHLORIDE 0.9% 500ML 500 ML IV ONE
[2017-07-11 08:29] VITALS: Ht 177.8 cm; Wt 81.8 kg
--- NOTE | 2017-07-11 08:42 | Endo History and Physical ---
History & Physical Date of Service: Jul 11, 2017. Chief Complaint: iron def anemia Referring Physician: Dr. Albarran History of Present Illness iron def anemia Past Medical History Atrial Fibrillation, Arthritis, Male Genitourinary Prob., Reflux, High Cholesterol, Hypertension, COPD, Chronic Steroid Use, Kidney Disease, Other Past Surgical History Hx Cardiac Surgery: No Hx Internal Defibrillator: No Hx Pacemaker: No Hx Abdominal Surgery: No Hx of Implantable Prosthesis: No Hx Post-Op Nausea and Vomiting: No Hx Cancer Surgery: No Hx Thoracic Surgery: No Hx Orthopedic: Yes (LUMBAR FUSION, RT/LEFT SECOND TOE AMPUTATION) Hx Urinary Tract Surgery: Yes (LITHOTRIPSY X6, TURP) Family History Colon CA Social History Smoking Status: Former Smoker Hx Substance Use: No Hx Alcohol Use: No Allergies Coded Allergies: Morphine (Verified Allergy, Unknown, "out of it for days", 07/02/17) Colchicine (Verified Adverse Reaction, Mild, GI upset, 07/02/17) Uncoded Allergies: CITRUS JUICE (Allergy, Unknown, STOMACH ACHE, 07/02/17) TOMATO JUICE (Allergy, Unknown, HEADACHE, 07/02/17) Current Medications Reported Home Medications Medications Dose Route/Sig Max Daily Dose Days Date Category Dose Instructions Protonix (Pantoprazole Sodium) 40 Mg Tab 40 Mg PO QAM 07/02/17 Reported Pyridium (Phenazopyridine HCl) 200 Mg Tab 200 Mg PO TID PRN 12/17/16 Reported TAKE THIS MEDICATION AFTER MEALS FOR PAIN WITH URINATION Gabapentin 300 Mg Cap 300-600 Mg PO TID 12/17/16 Reported Allopurinol 300 Mg Tab 300 Mg PO QAM 12/17/16 Reported Norvasc (Amlodipine Besylate) 2.5 Mg Tab 2.5 Mg PO QAM 12/17/16 Reported Dutasteride 0.5 Mg Cap 0.5 Mg PO DAILY 12/17/16 Reported TAKE THIS MEDICATION ONCE DAILY WITH EVENING MEAL Metoprolol Succinate ER (Metoprolol Succinate) 25 Mg Tabcr 25 Mg PO QAM 12/17/16 Reported Tolterodine Tartrate ER (Tolterodine Tartrate) 4 Mg Cap 4 Mg PO QPM 12/17/16 Reported Tramadol HCl 50 Mg Tab 50-100 Mg PO Q6H PRN 12/17/16 Reported Reclast (Zoledronic Acid) 5 Mg/100 Ml Inj 5 Mg IV YEARLY 09/18/16 Reported Prednisone 5 Mg Tab 5 Mg PO QPM 09/18/16 Reported Asmanex Twisthaler 120 Me (Mometasone Furoate (Inhalation) 220 Mcg/Inh Aer 2 Puffs INH BID 03/21/16 Reported RINSE MOUTH AFTER USE Combivent Respimat (Ipratropium-Albuterol) 1 Aer Aer 1 Puff INH QID PRN 03/21/16 Reported Mag-Ox (Magnesium Oxide) 400 Mg Tab 400 Mg PO BID 03/21/16 Reported Aspirin 81 (Aspirin) 81 Mg Tab 81 Mg PO QAM 03/21/15 Reported Tamsulosin HCl 0.4 Mg Cap 0.4 Mg PO QPM 03/21/15 Reported Myrbetriq Er (Mirabegron) 50 Mg Tab 50 Mg PO QPM 11/02/14 Reported Oxygen Gas 2 Liters NA HS 01/29/14 Reported USE DURING ALL PERIODS OF SLEEP Lipitor (Atorvastatin Calcium) 40 Mg Tab 40 Mg PO QPM 03/26/11 Reported TAKE THIS MEDICATION ONCE DAILY WITH EVENING MEAL Vital Signs Weight (Kilograms): 81.82 Height (Feet): 5 Height (Inches): 10 Physical Exam General Appearance: WD/WN, no apparent distress Assessment and Plan EGD and colon today
[2017-07-11 08:43] VITALS: TEMP 36.7
--- NOTE | 2017-07-11 10:19 | GI REPORT ---
Procedure Date: 07/11/2017 8:46 AM Procedure: Upper GI endoscopy Indications: Iron deficiency anemia Medicines: Propofol per Anesthesia Complications: No immediate complications. Estimated blood loss: None. Estimated Blood Loss: Estimated blood loss: none. Procedure: Pre-Anesthesia Assessment: - Prior to the procedure, a History and Physical was performed, and patient medications, allergies and sensitivities were reviewed. The patient's tolerance of previous anesthesia was reviewed. - The risks and benefits of the procedure and the sedation options and risks were discussed with the patient. All questions were answered and informed consent was obtained. - Patient identification and proposed procedure were verified prior to the procedure by the physician and the nurse. The procedure was verified in the pre-procedure area in the procedure room. - Mental Status Examination: alert and oriented. Airway Examination: normal oropharyngeal airway and neck mobility. Respiratory Examination: clear to auscultation. CV Examination: normal. Abdominal Examination: bowel sounds present, abdomen soft and non-tender, no masses or organomegaly noted. - ASA Grade Assessment: III - A patient with severe systemic disease. After obtaining informed consent, the endoscope was passed under direct vision. Throughout the procedure, the patient's blood pressure, pulse, and oxygen saturations were monitored continuously. The On-site loaner was introduced through the mouth, and advanced to the third part of duodenum. The upper GI endoscopy was accomplished without difficulty. The patient tolerated the procedure well. Findings: The esophagus was normal. A large hiatal hernia was present. The examined duodenum was normal. Impression: - Normal esophagus. - Large hiatal hernia. No david's ulcers - Normal examined duodenum. - No specimens collected. Recommendation: - Perform a colonoscopy as previously scheduled. Charlene Fitch D.O. Charlene Fitch, 07/11/2017 10:19:31 AM This report has been signed electronically. Note Initiated On: 07/11/2017 8:46 AM I attest to the content of the Intraoperative Record and orders documented therein, exceptions below
--- NOTE | 2017-07-11 10:21 | GI REPORT ---
Procedure Date: 07/11/2017 10:01 AM Procedure: Colonoscopy Indications: Iron deficiency anemia Medicines: Propofol per Anesthesia Complications: No immediate complications. Estimated blood loss: None. Estimated Blood Loss: Estimated blood loss: none. Procedure: Pre-Anesthesia Assessment: - Prior to the procedure, a History and Physical was performed, and patient medications, allergies and sensitivities were reviewed. The patient's tolerance of previous anesthesia was reviewed. - The risks and benefits of the procedure and the sedation options and risks were discussed with the patient. All questions were answered and informed consent was obtained. - Patient identification and proposed procedure were verified prior to the procedure by the physician and the nurse. The procedure was verified in the pre-procedure area in the procedure room. - Mental Status Examination: alert and oriented. Airway Examination: normal oropharyngeal airway and neck mobility. Respiratory Examination: clear to auscultation. CV Examination: normal. Abdominal Examination: bowel sounds present, abdomen soft and non-tender, no masses or organomegaly noted. - ASA Grade Assessment: III - A patient with severe systemic disease. After I obtained informed consent, the scope was passed under direct vision. Throughout the procedure, the patient's blood pressure, pulse, and oxygen saturations were monitored continuously. The scope was introduced through the anus and advanced to the terminal ileum. The colonoscopy was performed without difficulty. The patient tolerated the procedure well. The quality of the bowel preparation was good. Findings: The perianal and digital rectal examinations were normal. Pertinent negatives include normal sphincter tone and no palpable rectal lesions. Multiple small and large-mouthed diverticula were found in the entire colon. The retroflexed view of the distal rectum and anal verge was normal and showed no anal or rectal abnormalities. Impression: - Diverticulosis in the entire examined colon. - The distal rectum and anal verge are normal on retroflexion view. - No specimens collected. Recommendation: - No repeat colonoscopy due to age. - Return to referring physician as previously scheduled. - Discharge patient to home. Charlene Fitch D.O. Charlene Fitch, 07/11/2017 10:21:18 AM This report has been signed electronically. Note Initiated On: 07/11/2017 10:01 AM I attest to the content of the Intraoperative Record and orders documented therein, exceptions below
--- NOTE | 2017-07-11 10:22 | Discharge Instructions ---
Endoscopy Patient Instructions Date / Procedure(s) Performed Jul 11, 2017. Colonoscopy, EGD Allergy Information Coded Allergies: Morphine (Verified Allergy, Unknown, "out of it for days", 07/02/17) Colchicine (Verified Adverse Reaction, Mild, GI upset, 07/02/17) Uncoded Allergies: CITRUS JUICE (Allergy, Unknown, STOMACH ACHE, 07/02/17) TOMATO JUICE (Allergy, Unknown, HEADACHE, 07/02/17) Discharge Date / Findings Jul 11, 2017. large hiatal hernia; colonic diverticulosis Medication Instructions Restart Stopped Medication(s): OK to resume al home medications Provider Instructions Activity Restrictions - No exercising or heavy lifting for 24 hours. - Do not drink alcohol the day of the procedure. - Do not drive a car or operate machinery until the day after the procedure. - Do not make any important decisions or sign important papers in 24 hours after the procedure. Following Day: - Return to full activity which may include returning to work/school. Diet Start your diet with liquids and light foods (jello, soup, juice, toast). Then eat your usual diet if not nauseated. Treatment For Common After Affects For mild abdominal pain, bloating, or excessive gas: - Rest - Eat lightly - Lie on right side Follow-Up Information Follow-up with DR. MAIKEL GIRALDO as scheduled Anesthesia Information What You Should Know You have had a procedure that required some medicine to reduce anxiety and discomfort. This treatment is called moderate sedation. After receiving the treatment, you may be sleepy, but you will be able to breathe on your own. The effects of the treatment may last for several hours. Follow these instructions along with Activity/Diet recommendations noted above: * Do NOT do anything where dizziness or clumsiness would be dangerous. * Rest quietly at home today, then you can be up and about tomorrow. * Have a responsible person stay with you the rest of today. * You may have had an I.V. today. If so, you may take the dressing off later today. Recommendations Call your doctor if: * Trouble breathing * Continuous vomiting for more than 24 hours * Temperature above 101 degrees * Severe abdominal pain or bloating * Pain not relieved by pain medicine ordered * There is increased drainage or redness from any incision * A large amount of rectal bleeding greater than 2-3 tablespoons. (If you had a polyp/s removed or have hemorrhoids, a small amount of blood - from the rectum is to be expected.) * You have any unanswered questions or concerns. IN THE EVENT OF A SERIOUS EMERGENCY, GO TO THE NEAREST EMERGENCY ROOM Your discharge instructions were prepared by provider Charlene Fitch. Patient Instructions Signature Page Marlo Jones Patient (or Guardian) Signature/Date: I have read and understand the instructions given to me by my caregivers. Caregiver/RN/Doctor Signature/Date: The above-named patient and/or guardian has received patient instructions on this date. + Original Patient Signature Page (only) stays with chart. Please make copy for patient.
--- NOTE | 2017-07-11 10:40 | Anesthesiology Progress Note ---
Anesthesia Post Op Note Date & Time Jul 11, 2017 at 10:40 Vital Signs Pain Intensity: 0 Vital Signs Past 12 Hours Date Time Temp Pulse Resp B/P (MAP) Pulse Ox O2 Delivery O2 Flow Rate FiO2 07/11/17 10:24 88 20 147/88 (107) 95 Room Air 07/11/17 08:43 36.7 99 20 133/95 (108) 93 Room Air Notes Mental Status: alert / awake / arousable, participated in evaluation Pt Amnestic to Procedure: Yes Nausea / Vomiting: adequately controlled Pain: adequately controlled Airway Patency, RR, SpO2: stable & adequate BP & HR: stable & adequate Hydration State: stable & adequate Anesthetic Complications: no major complications apparent
[2017-07-11 10:54] VITALS: BP 161/94; PULSE 89; O2SAT 99
== END | disposition home or self-care (01) ==
LOC: C.GI 08:08
PROVIDERS: ATTEND Internal Medicine
DX: D50.9 Iron deficiency anemia, unspecified (principal); K44.9 Diaphragmatic hernia without obstruction or gangrene; K57.30 Diverticulosis of large intestine without perforation or abscess without bleeding; I48.91 Unspecified atrial fibrillation; M19.90 Unspecified osteoarthritis, unspecified site; K21.9 Gastro-esophageal reflux disease without esophagitis; E78.00 Pure hypercholesterolemia, unspecified; E78.5 Hyperlipidemia, unspecified; I12.9 Hypertensive chronic kidney disease with stage 1 through stage 4 chronic kidney disease, or unspecified chronic kidney disease; N18.3 Chronic kidney disease, stage 3 (moderate); N40.0 Benign prostatic hyperplasia without lower urinary tract symptoms; M10.9 Gout, unspecified; J44.9 Chronic obstructive pulmonary disease, unspecified; Z79.52 Long term (current) use of systemic steroids; Z98.1 Arthrodesis status; Z89.422 Acquired absence of other left toe(s); Z87.442 Personal history of urinary calculi; Z80.0 Family history of malignant neoplasm of digestive organs; Z87.891 Personal history of nicotine dependence; Z88.5 Allergy status to narcotic agent; Z88.8 Allergy status to other drugs, medicaments and biological substances; Z91.018 Allergy to other foods; Z79.82 Long term (current) use of aspirin

== ENCOUNTER 2017-11-21 21:25 | Inpatient (IN) | payer BC, OTHER ==
[~2017-11-21] VITALS: Ht 162.6 cm; Wt 84.5 kg
[~2017-11-21 21:25] MED LIST changes: +CEPH500C2 PO; +DUTA1CAP17 PO; -DUTA1CAP3 PO; -ETOMIDATE 2 MG/ML 20 ML VIAL IV ONE; -LIDOCAINE HCL 2% 2 ML VIAL (20MG/ML) ONE; -MIDAZOLAM HCL 1 MG/ML 2ML VIAL ONE; -ONDANSETRON INJ 2 MG/ML 2 ML VIAL ONE; -PROPOFOL IV EMULSION 10 MG/ML 20 ML VIAL IV ONE; -SODIUM CHLORIDE 0.9% 500ML 500 ML IV ONE
[2017-11-21] MEDS ORDERED: SODIUM CHLORIDE 0.9% 1000ML 250 ML IV STA (22:09)
[2017-11-21] MEDS ORDERED: SODIUM CHLORIDE 0.9% 1000ML 1,000 ML IV STA (22:09)
[2017-11-21] MEDS ORDERED: FENTANYL CITRATE INJ 50 MCG/1 ML 2 ML VIAL IV STA (22:12)
--- NOTE | 2017-11-21 22:14 | EMERGENCY ROOM VISIT NOTE ---
History Report prepared by Jay: Luda Holloway Under the Supervision of: Dr. Morales Almanzar M.D. First contact with patient: 22:01 Chief Complaint: LEG PAIN,LEG INJURY Stated Complaint: RT LEG PAIN, SWELLING, WOUND History of Present Illness The patient is an 87 year old male who presents to the Emergency Room with complaints of intermittent pain located in the front of his right leg that started after the patient cut his right leg about 3 months ago. Per daughter, the patient has an open wound on his right leg and has been going to a wound clinic for it. The daughter reports that the physicians at the clinic said the patient has low blood flow to his wound and would like to "open the veins" in that leg in the near future. She states that his wound has recently become more swollen, enlarged, red, and very painful, and she states that she is worried the wound will get infected. The patient denies chills, nausea, vomiting, chest pain, and shortness of breath. The patient reports that he has neuropathy and takes Prednisone, and he denies taking any blood thinners. The daughter notes the patient is also on antibiotics for a urinary infection. She also notes the patient sees a physician in [place] for the patient's heart murmur. Source of History: patient, family (daughter) Onset: about 3 months ago Position: leg (right) Quality: other Timing: intermittent Associated Symptoms: No chills, No chest pain, No SOB, No nausea, No vomiting Review of Systems See HPI for pertinent positives & negatives. A total of 10 systems reviewed and were otherwise negative. 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 Nurse's notes were reviewed and I agree with. Family History FH: Parkinson's disease FATHER FH: cancer MOTHER (Colon) SISTER (Breast, LungCA) Kidney disease Kidney stones Social History Smoking Status: Never Smoker Alcohol Use: none Drug Use: none Marital Status: Housing Status: lives alone Occupation Status: retired Current/Historical Medications Scheduled Allopurinol (Allopurinol), 300 MG PO QAM Amlodipine Besylate (Norvasc), 2.5 MG PO QAM Aspirin (Aspirin Ec), 81 MG PO QAM Atorvastatin (Lipitor), 40 MG PO QPM Dutasteride (Dutasteride), 0.5 MG PO DAILY Ferrous Sulfate (Kp Ferrous Sulfate), 325 MG PO BID Gabapentin (Gabapentin), 300-600 MG PO TID Home O2 Therapy (Oxygen), 2 LITERS NA HS Magnesium Oxide (Mag-Ox), 400 MG PO BID Melatonin (Melatonin), 1 MG PO HS Metoprolol Succinate (Toprol Xl), 50 MG PO QAM Mirabegron (Myrbetriq Er), 50 MG PO QPM Mometasone Furoate (Inhalation (Asmanex Twisthaler 120 Me), 2 PUFFS INH BID Pantoprazole (Protonix), 40 MG PO QAM Prednisone (Prednisone), 5 MG PO QPM Tamsulosin HCl (Tamsulosin HCl), 0.4 MG PO QPM Tolterodine Tartrate (Tolterodine Tartrate ER), 2 MG PO QPM Scheduled PRN Diclofenac Sodium (Topical) (Diclofenac Sodium), 2 GM TOP QID PRN for Pain Ipratropium-Albuterol (Combivent Respimat), 1 PUFF INH QID PRN for Shortness of Breath Phenazopyridine HCl (Pyridium), 200 MG PO TID PRN for Pain with Urination Prednisone (Prednisone), 10 MG PO DIRECTED PRN for RESCUE KIT Tramadol HCl (Tramadol HCl), 50-100 MG PO Q6H PRN for Pain Triamcinolone Acet (Triamcinolone Acetonide), 1 APPLN TOP BID PRN for AFFECTED AREAS Allergies Coded Allergies: Morphine (Verified Allergy, Unknown, "out of it for days", 11/21/17) Colchicine (Verified Adverse Reaction, Mild, GI upset, 11/21/17) Naches (Verified Adverse Reaction, Unknown, STOMACH ACHE FROM CITRUS JUICE , 11/22/17) Tomato (Verified Adverse Reaction, Unknown, HEADACHE FROM TOMATO JUICE, 11/22/17) Physical Exam Vital Signs Date Time Temp Pulse Resp B/P (MAP) Pulse Ox O2 Delivery O2 Flow Rate FiO2 11/22/17 02:59 98 18 157/98 91 Room Air 11/22/17 02:21 37.2 102 18 136/113 93 Room Air 11/22/17 02:11 103 11/22/17 00:23 102 18 165/111 91 Room Air 11/21/17 23:36 37.5 104 18 140/102 92 Room Air 11/21/17 22:34 102 11/21/17 21:28 37.2 101 20 170/72 92 Room Air Physical Exam General: Older male in no acute distress, breathing comfortably on room air. Normal speech. HEENT: Normal cephalic atraumatic. Pupils are equal round and reactive to light. Extraocular movements are intact. Oropharynx is pink with moist mucous membranes. No swelling of the mouth lips or tongue. Neck: Supple with a midline trachea. No meningeal signs or stiffness, no JVD or bruits. No Stridor. Chest: Clear to auscultation bilaterally. No wheezes or rhonchi. No increased work of breathing. Heart: regular rate and rhythm. Abdomen: Soft nontender, nondistended without rebound guarding or rigidity. Extremities: No cyanosis or clubbing. No calf tenderness or assymetry. Skin breakdown and ulcer in right wayne surrounded by mild redness. Foot is well perfused appearing with a normal pulse. Spine/Back. Non tender to palpation. No CVA tenderness Skin: Good turgor without rashes. Neurologic exam: Cranial nerves two through 12 are intact. Motor and sensation are intact and symmetrical throughout. Medical Decision & Procedures ER Provider Diagnostic Interpretation: Radiology results as stated below per my review and radiologist interpretation: US VENOUS RIGHT LOWER EXTREMITY FINDINGS: Normal compressibility is demonstrated from the common femoral vein to the popliteal vein. There is normal response to Valsalva and augmentation. Normal spontaneous phasic flow is noted. 4.605 at 2.2 cm popliteal cyst. IMPRESSION: No evidence of deep venous thrombosis in the right lower extremity. Radiologist; Misael Butler MD. TIBIA/FIBULA X-RAY: No fracture or bony abnormalities. Laboratory Results 11/21/17 22:25 Test 11/21/17 22:25 11/21/17 22:44 11/21/17 23:00 Anion Gap 8.0 mmol/L (3-11) Estimated GFR () 60.0 Estimated GFR (Non- 51.8 BUN/Creatinine Ratio 14.5 (10-20) Calcium Level 8.8 mg/dl (8.5-10.1) Magnesium Level 2.0 mg/dl (1.8-2.4) Total Bilirubin 0.9 mg/dl (0.2-1) Direct Bilirubin 0.2 mg/dl (0-0.2) Aspartate Amino Transf (AST/SGOT) 20 U/L (15-37) Alanine Aminotransferase (ALT/SGPT) 20 U/L (12-78) Alkaline Phosphatase 114 U/L (45-117) Total Protein 7.2 gm/dl (6.4-8.2) Albumin 3.3 gm/dl (3.4-5.0) Lipase 97 U/L (73-393) Bedside Lactic Acid Venous 0.84 mmol/L (0.90-1.70) Urine Color YELLOW Urine Appearance CLEAR (CLEAR) Urine pH 7.0 (4.5-7.5) Urine Specific [place] 1.013 (1.000-1.030) Urine Protein NEG (NEG) Urine Glucose (UA) NEG (NEG) Urine Ketones NEG (NEG) Urine Occult Blood TRACE (NEG) Urine Nitrite NEG (NEG) Urine Bilirubin NEG (NEG) Urine Urobilinogen NEG (NEG) Urine Leukocyte Esterase NEG (NEG) Urine WBC (Auto) 0 /hpf (0-5) Urine RBC (Auto) 0-4 /hpf (0-4) Urine Hyaline Casts (Auto) 1-5 /lpf (0-5) Urine Epithelial Cells (Auto) 5-10 /lpf (0-5) Urine Bacteria (Auto) NEG (NEG) Laboratory studies as stated above per my review. Medications Administered Medications (Trade) Dose Ordered Sig/Alberto Route Start Time Stop Time Status Last Admin Dose Admin Sodium Chloride 250 ml @ 999 mls/hr Q16M STAT IV 11/21/17 22:09 11/21/17 22:24 DC 11/21/17 22:42 999 MLS/HR Sodium Chloride 1,000 ml @ 100 mls/hr Q10H STAT IV 11/21/17 22:09 11/22/17 05:17 DC 11/21/17 22:42 100 MLS/HR Fentanyl Citrate (Fentanyl Inj) 25 mcg ONE STAT IV 11/21/17 22:12 11/21/17 22:14 DC 11/21/17 22:42 25 MCG Piperacillin Sod/ Tazobactam Sod (Zosyn Iv) 3.375 gm NOW STAT IV 11/22/17 01:41 11/22/17 01:43 DC 11/22/17 02:21 3.375 GM Metoprolol Succinate (Toprol Xl Tab) 50 mg ONE STAT PO 11/22/17 02:33 11/22/17 02:34 DC 11/22/17 02:59 50 MG Doxycycline Hyclate 100 mg/ Dextrose 110 ml @ 50 mls/hr ONE STAT IV 11/22/17 02:33 11/22/17 04:44 DC 11/22/17 02:59 50 MLS/HR ECG Per My Interpretation Indication: other (right leg pain) Rate (beats per minute): 102 Rhythm: sinus tachycardia Findings: 1st degree AV block, no acute ischemic change, other (left axis deviation) Comparison ECG Date: 04/23/17 Change: no significant change ED Course 2204: Past medical records reviewed. The patient was evaluated in room C3, and a complete history and physical examination were performed. 2208: Ordered Sodium Chloride 1000 ml @ 100 mls/hr IV, Sodium Chloride 250 ml @ 999 mls/hr IV. 2212: Ordered Fentanyl Inj 25 mcg IV. 0141: Ordered Zosyn Iv 3.375 gm IV. 0144: I reevaluated the patient and reviewed his ultrasound results. The patient has significant peripheral artery disease. 0150: Discussed the patient's case with Dr. Earl - [facility] Hospitalist. Dr. Earl agreed to admit the patient. Upon reevaluation, the patient is resting. I discussed the results and treatment plan with the patient. He verbalized agreement of the treatment plan and admission. Medical Decision Differentials include, but are not limited to; sepsis, cellulitis, vascular disease, DVT. This patient comes in as described above. He was placed in room C3. He is having increasing right leg pain and swelling. He has an ulcer is treated with the wound care clinic. His says that he usually does not complain of pain but has had significant pain over the last several days. It is around the wayne and not in the foot. On exam, he has no distal discoloration or any evidence to suggest acute arterial compromise distally. He does have known peripheral artery disease with an abnormal ultrasound of his arteries done about 2 weeks ago. He is scheduled to see Dr. Kendrick for possible intervention. IV access was established multiple blood testing was obtained. I did an x-ray did not should see any definite bony abnormality did an ultrasound.there is no evidence of DVT. His white count and lactic acid are not significantly elevated and I do not think is septic. I do think he has worsening of his cellulitis and ulcer I think his pain is in combination with this as well as his neuropathy and his peripheral arterial disease. He was given IV Zosyn and has had blood cultures. He has had received IV fentanyl as well for pain management seems comfortable with this. I have asked Dr. Boykin to see him for admission/observation for further inpatient treatment and evaluation Medication Reconcilliation Current Medication List: was personally reviewed by me Blood Pressure Screening Patient's blood pressure: Elevated blood pressure (Will be monitored by hospitalist) Blood pressure disposition: Elevated BP felt to be situational Consults Time Called: 0149 [facility] Returned Call: [phone] Discussed the patient's case. Dr. Earl agreed to admit the patient. The patient will be evaluated for further management. Impression Primary Impression: Cellulitis Additional Impression: Leg ulcer Scribe Attestation The scribe's documentation has been prepared under my direction and personally reviewed by me in its entirety. I confirm that the note above accurately reflects all work, treatment, procedures, and medical decision making performed by me. Departure Information Dispostion Being Evaluated By Hospitalist Patrick Vickers M.D. (PCP) Patient Instructions My [facility] Problem Qualifiers
[2017-11-21 22:46] LABS: BASO % 0.3 %; BASO ABS # 0.02 K/uL (0-0.2); EOS % 1.4 %; HEMATOCRIT 35.8 % (42-52); HEMOGLOBIN 12.2 g/dL (14.0-18.0); IG# 0.01 K/uL (0.00-0.02); LYMPH % 17.1 %; LYMPH ABS # 1.18 K/uL (1.2-3.4); MEAN CELL VOLUME 88.8 fL (80-100); MEAN CORPUSCULAR HEMOGLOBIN 30.3 pg (25-34); MEAN CORPUSCULAR HGB CONC 34.1 g/dl (32-36); MONO % 7.1 %; MONO ABS # 0.49 K/uL (0.11-0.59); PLATELET COUNT 189 K/uL (130-400); RED CELL DISTRIBUTION WIDTH CV 13.9 % (11.5-14.5); RED CELL DISTRIBUTION WIDTH SD 45.7 fL (36.4-46.3)
[2017-11-21 23:07] LABS: ALBUMIN 3.3 gm/dl (3.4-5.0); ALKALINE PHOSPHATASE 114 U/L (45-117); ALT/SGPT 20 U/L (12-78); AST/SGOT 20 U/L (15-37); BLOOD UREA NITROGEN 18 mg/dl (7-18); CALCIUM 8.8 mg/dl (8.5-10.1); CARBON DIOXIDE 26 mmol/L (21-32); CREATININE 1.25 mg/dl (0.60-1.40); GLUCOSE 115 mg/dl (70-99); LIPASE 97 U/L (73-393); SODIUM 137 mmol/L (136-145); TOTAL PROTEIN 7.2 gm/dl (6.4-8.2)
[2017-11-21] MEDS ORDERED: MELA1CAP PO (23:42)
[2017-11-21] MEDS ORDERED: FERR1TAB13 PO (23:42)
[2017-11-21] MEDS ORDERED: ASPI81TA28 PO (23:42)
[2017-11-21] MEDS ORDERED: TRMCR515 TOP (23:42)
[2017-11-21] MEDS ORDERED: METO-217 PO (23:42)
[2017-11-21] MEDS ORDERED: DICL1GEL34 TOP (23:42)
[2017-11-21] MEDS ORDERED: PRED10TA PO (23:45)
[2017-11-22] MEDS ORDERED: PIPERACILLIN/TAZOBACTAM 3.375 GM/100ML D5W IV STA (01:41)
[2017-11-22] MEDS ORDERED: DOXYCYCLINE IV 100 MG in DEXTROSE 5% 100ML 100 ML IV STA (02:33)
[2017-11-22] MEDS ORDERED: METOPROLOL SUCC 50MG EXT REL TAB PO STA (02:33)
[2017-11-22] MEDS ORDERED: PHENAZOPYRIDINE HCL 200 MG TAB PO PRN (04:00)
[2017-11-22] MEDS ORDERED: HYDROmorphone INJ 0.5 MG/0.5 ML SYR IV PRN (04:00)
[2017-11-22] MEDS ORDERED: ACETAMINOPHEN 325 MG TAB PO PRN (04:00)
[2017-11-22] MEDS ORDERED: TRAMADOL HCL 50 MG TAB PO PRN (04:00)
[2017-11-22] MEDS ORDERED: PROCHLORPERAZINE INJ 5 MG in SYRINGE 4 ML IV PRN (04:00)
[2017-11-22 05:28] VITALS: BP 157/87; PULSE 91; TEMP 36.4; O2SAT 92; BMI 32.0
[2017-11-22] MEDS ORDERED: SODIUM CHLORIDE 0.9% 1000ML 1,000 ML IV ONE (05:30)
[2017-11-22] MEDS ORDERED: PATIENT'S HEIGHT AND/OR WEIGHT NEEDED SCH (05:45)
[2017-11-22 06:17] LABS: BASO % 0.4 %; BASO ABS # 0.02 K/uL (0-0.2); EOS % 3.2 %; EOS ABS # 0.18 K/uL (0-0.5); HEMATOCRIT 39.5 % (42-52); HEMOGLOBIN 12.8 g/dL (14.0-18.0); IG# 0.01 K/uL (0.00-0.02); LYMPH % 21.5 %; LYMPH ABS # 1.19 K/uL (1.2-3.4); MEAN CELL VOLUME 88.4 fL (80-100); MEAN CORPUSCULAR HEMOGLOBIN 28.6 pg (25-34); MEAN CORPUSCULAR HGB CONC 32.4 g/dl (32-36); MEAN PLATELET VOLUME 9.5 fL (7.4-10.4); MONO % 10.5 %; MONO ABS # 0.58 K/uL (0.11-0.59); NEUT % 64.2 %; NEUT ABS # 3.56 K/uL (1.4-6.5); PLATELET COUNT 187 K/uL (130-400); RED CELL DISTRIBUTION WIDTH CV 13.8 % (11.5-14.5); RED CELL DISTRIBUTION WIDTH SD 44.8 fL (36.4-46.3); WHITE BLOOD COUNT 5.54 K/uL (4.8-10.8)
--- NOTE | 2017-11-22 06:36 | DIAGNOSTIC IMAGING REPORT ---
R VENOUS DOPP LOWER EXT UNILAT HISTORY: 87 years-old Male eval for dvt acute pain and swelling of the right lower extremity COMPARISON: Duplex venous Doppler study 12/17/2016 TECHNIQUE: Multiple real-time sonographic images of the right lower extremity deep venous structures were obtained assessing grayscale appearance, color and spectral flow FINDINGS: Normal flow, compressibility, phasicity and augmentation of the right lower extremity deep venous structures. Mildly complex Amador's cyst measures 4.6 x 1.5 x 2.3 cm. IMPRESSION: No sonographic evidence of deep venous thrombosis. The above report was generated using voice recognition software. It may contain grammatical, syntax or spelling errors. Electronically signed by: Steven Carlos M.D. 11/22/2017 6:34 AM Dictated Date/Time: 11/22/2017 6:33 AM
--- NOTE | 2017-11-22 07:15 | DIAGNOSTIC IMAGING REPORT ---
RIGHT TIBIA/FIBULA 2 VIEWS HISTORY: Right lower leg swelling. COMPARISON: None. FINDINGS: There is no fracture or dislocation. Advanced degenerative changes at the hindfoot. Vascular calcifications are noted. Plantar heel spur. Diffuse soft tissue swelling most notable within the distal lower leg. No areas of bony destruction to suggest osteomyelitis. No radiopaque foreign bodies. IMPRESSION: 1. No fracture or dislocation within the right lower leg. 2. Diffuse soft tissue swelling. 3. No evidence for osteomyelitis. Electronically signed by: Roberto Begrer M.D. 11/22/2017 7:14 AM Dictated Date/Time: 11/22/2017 7:12 AM
[2017-11-22] MEDS: AVODART~ORDER AWAITING ACTION SCH ×3 (07:26→23:27)
[2017-11-22] MEDS: FERROUS SULFATE 325 MG TAB PO SCH ×2 (08:00→15:54)
[2017-11-22] MEDS: GABAPENTIN 300 MG CAP PO SCH ×3 (08:06→21:17)
[2017-11-22 08:37] VITALS: BP 180/105; PULSE 94; TEMP 36.9; O2SAT 96
[2017-11-22] MEDS: MOMETASONE FUROATE 14 PUFF/1 INHALER INH SCH ×2 (08:57→21:16)
[2017-11-22] MEDS: ALLOPURINOL 300 MG TAB PO SCH (09:00)
[2017-11-22] MEDS: ASPIRIN 81 MG ECTAB PO SCH (09:10)
[2017-11-22] MEDS: PANTOprazole SOD 40 MG TAB PO SCH (09:10)
[2017-11-22 09:55] VITALS: BP 136/82; PULSE 85
--- NOTE | 2017-11-22 09:59 | HISTORY & PHYSICAL EXAMINATION ---
DATE OF ADMISSION: 11/22/2017 PRIMARY CARE PHYSICIAN: Dr. Albarran. CHIEF COMPLAINT: Right leg pain and swelling. HISTORY OF PRESENT ILLNESS: History obtained from patient, daughter, and records. Medical history significant for chronic diastolic heart failure, EF of 55%-59% in 2D echo in February 2017, hypertension, Nonocclusive CAD as per records, aortic stenosis, COPD, past tobacco abuse, PVD as per records, chronic anemia (baseline hemoglobin of 11-13), chronic right lower extremity venous ulcers, orthostatic hypotension as per records, psoriatic arthritis on chronic steroid therapy, BPH. Recent confinement last in 04/2017 for acute renal failure and dehydration. Patient seen at wound care center last in 09/2017 for bilateral lower extremity wounds. Patient last seen at wound care center last week for follow-up for venous ulcer , right lower extremity which he has had for about a month according to the patient. Increase in total surface area noted covered with slough, venous ulcerations, debridement done as per outpatient note. Patient had an outpatient lower extremity duplex done about 3 weeks ago upon the request of Wound care center provider which showed abnormal ABIs, right moderate disease, left severe disease. Right lower extremity showed tibial disease with occlusion of the peroneal artery, occluded PDA collaterals, Very diminished monosyllable in the ZIGGY with collaterals in the distal ZIGGY. Left lower extremity with severe tibial vessel disease with very diminished amount of flow. Distal ZIGGY appears to fill by collaterals. Outpatient [facility] filenet architect appointment 3 weeks from now as per daughter for PAD. Patient denies claudication symptoms. Patient daughter claims patient downplays symptoms due to fears of group home placement. The last few days, patient's daughter noted RLE wound to be a little bigger. R leg more swollen than usual. No fever, no chills. Patient says right lower extremity pain a little worse than usual. Patient received Zosyn at the ER. MEDICAL HISTORY: As above. A 2D echo from February 2017 showed EF 55%-59%, severely reduced aortic valve opening, mild MR, mild TR, proximal aorta mildly enlarged. A cardiac catheterization in August 2017 showed mild CAD. Patient seen by [facility] CT surgery for aortic stenosis lasts 09/2017. As per outpatient notes, patient SOB seems multifactorial. Needs better BP management and PFTs for chronic lung disease. Next step will be reevaluation in 6 months. Repeat echo if no improvement. Outpatient CT pre-TAVR studies done. SURGICAL HISTORY: He has had back surgery, toe amputation. MEDICATIONS: Home medications include ferrous sulfate, gabapentin, Combivent, melatonin, Myrbetriq, magnesium oxide, Toprol, Asmanex, prednisone, Protonix, Pyridium, tamsulosin/tolterodine, tramadol, triamcinolone, Norvasc, aspirin, Lipitor, allopurinol, diclofenac ALLERGIES: COLCHICINE, MORPHINE, CITRUS, TOMATO. FAMILY HISTORY: Parkinson's, colon and breast cancer. 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 REVIEW OF SYSTEMS: As per HPI. All 10 systems reviewed, all other ROS negative. PHYSICAL EXAMINATION: VITAL SIGNS: Blood pressure was noted to be 140/102, later 98, RR 18, temperature 37.2, saturations 98% on room air. GENERAL: Noted to be slightly uncomfortable, slightly hard of hearing, no respiratory distress. SKIN: Pallor and warm. HEENT: Alopecia. Pale palpebral conjunctivae. No ptosis. Dry oral mucosa. NECK: Short, supple. CHEST: Decreased effort. No tenderness. HEART: regular rate and rhythm. systolic murmur, ABDOMEN: Some distention, non-tender. EXTREMITIES: Ulcer with surface eschar noted to be on the right leg with erythema and surrounding induration, minimal RLE tenderness. NEUROLOGIC: Coherent, no facial asymmetry, no gross focality except for mild hearing impairment. LABORATORY DATA: Hemoglobin was noted to be 12.2, white cell count 7, platelets 180. Sodium 135, potassium 4, chloride CO2 of 26, BUN 18, creatinine 1.25, glucose was noted to be 115. RLE venous Dopplers initial read, no DVT, mildly complex Amador cyst. Right tibia-fibula x-ray as per my interpretation swelling, no bony destruction ASSESSMENT AND PLAN: 1. Right lower extremity cellulitis Chronic venous ulcer, some worsening of wound as per patient's daughter. Underlying LE peripheral arterial disease on recent outpatient LE arterial Dopplers from [facility] (Outpatient [facility] Interventional Cardiology (Dr. Kendrick) referral contemplated end of the month as per daughter.) no sepsis. 2. Hypertension, slightly elevated. 3. Chronic diastolic heart failure. Patient is euvolemic. 4. Chronic obstructive pulmonary disease as per records. Past tobacco abuse. Pulmonary status at baseline. 5. Nonobstructive coronary artery disease as per records 6. hx aortic valve stenosis. Observe for now as per outpatient recent [facility] CT surgery evaluation. 7. hx psoriatic arthritis on chronic steroid Rx 8. Steroid-induced hyperglycemia, possible prediabetes (Hemoglobin A1c of 6.3 last 2013) [facility] Doxycycline for lower extremity cellulitis Local measures for cellulitis Wound care provider followup eval by provider Inpatient [facility] Interventional Cardiology opinion as per patient's daughter request regarding PAD Check hemoglobin A1c DVT prophylaxis: Lovenox subcu. Full code. Patient's daughter requesting for updates from providers. Miss Amena Nassar thru [phone]. MTDD
[2017-11-22] MEDS: ENOXAPARIN 40 MG/0.4 ML SYR SQ SCH (10:40)
--- NOTE | 2017-11-22 12:48 | Cardiology Consultation ---
Cardiology Consultation Date of Consultation: Nov 22, 2017. Requesting Physician: Dr. Earl Attending Physician: Dr. Hong Reason for Consultation: Peripheral arterial disease Pt evaluation today including: conversation w/ patient, physical exam, chart review, lab review, review of studies, review of inpatient medication list, conversation w/ attending History of Present Illness Mr. Jones is an 87-year-old male with multiple comorbidities including peripheral arterial disease, aortic stenosis, hypertension, dyslipidemia, hx of post-op atrial flutter, CKD, and COPD who presented to the ED yesterday with complaints of increased pain, redness, and edema of his right lower extremity. The patient is a poor historian, and the majority of his history was obtained from records. He has been following with the wound clinic since September for wounds on his lower extremities. He underwent a lower extremity arterial duplex on 10/31 which showed right lower extremity tibial disease with occlusion of the tran artery; occlusion with collaterals of the [employer]ER; very diminished mono flow in the ZIGGY with collaterals in the distal ZIGGY. Left lower extremity with severe tibial vessel disease with very diminished, mono flow; distal ZIGGY filled by collaterals. Patient is currently being seen in his room in [facility]. He reports that he continues to have intermittent pain of his left leg. The leg continues to be edematous and erythematous. He is otherwise asymptomatic. He denies fevers or chills. He denies chest pain or shortness of breath. He denies lightheadedness, syncope, or presyncope. He denies bleeding complaints such as melena, hematochezia, or hematuria. He currently has a catheter in place. Review of Systems: As noted in HPI. All other ROS are reviewed and otherwise negative at this time. Past Medical/Surgical History 1. Aortic stenosis 2. Mild CAD by cath 08/2017 3. COPD 4. CKD 5. BPH 6. Dyslipidemia 7. Osteoarthritis 8. Gout 9. Atrial flutter (postoperatively) 10. Hypertension 11. Peripheral vascular disease 12. Psoriatic arthritis 13. 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 Lumbosacral disc disease s/p lumbar discectomy 16. 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 Bilateral cataract surgery Family History FH: Parkinson's disease FATHER FH: cancer MOTHER (Colon) SISTER (Breast, LungCA) Kidney disease Kidney stones Noncontributory given his advanced age and known cardiovascular disease. 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 He is not but has been with the same woman for many years. He had 5 children, but his oldest son . He chewed tobacco for 50 years but quit about a year ago. He notes a remote history of smoking. He denies alcohol or illicit drug use. Allergies Coded Allergies: Morphine (Verified Allergy, Unknown, "out of it for days", 11/21/17) Colchicine (Verified Adverse Reaction, Mild, GI upset, 11/21/17) [place] (Verified Adverse Reaction, Unknown, STOMACH ACHE FROM CITRUS JUICE , 11/22/17) Tomato (Verified Adverse Reaction, Unknown, HEADACHE FROM TOMATO JUICE, 11/22/17) Medications Current Inpatient Medications Medications (Trade) Dose Ordered Sig/Alberto Route Start Time Stop Time Status Last Admin Dose Admin Metoprolol Succinate (Toprol Xl Tab) 50 mg QAM PO 11/23/17 09:00 12/23/17 08:59 Doxycycline Hyclate 100 mg/ Dextrose 110 ml @ 50 mls/hr Q12H IV 11/22/17 16:00 12/02/17 15:59 Allopurinol (Zyloprim Tab) 300 mg QAM PO 11/22/17 09:00 12/22/17 08:59 Aspirin (Ecotrin Tab) 81 mg QAM PO 11/22/17 09:00 12/22/17 08:59 11/22/17 09:10 81 MG Atorvastatin Calcium (Lipitor Tab) 40 mg QPM PO 11/22/17 21:00 12/22/17 20:59 Gabapentin (Neurontin Cap) 300 mg TID PO 11/22/17 09:00 12/22/17 08:59 Mirabegron (Myrbetriq Er) 50 mg QPM PO 11/22/17 21:00 12/22/17 20:59 Mometasone Furoate (Asmanex 220MCG Inh) 1 puff BID INH 11/22/17 09:00 12/22/17 08:59 11/22/17 08:57 1 PUFF Pantoprazole Sodium (Protonix Tab) 40 mg QAM PO 11/22/17 09:00 12/22/17 08:59 11/22/17 09:10 40 MG Phenazopyridine HCl (Pyridium Tab) 200 mg TID PRN PO 11/22/17 04:00 12/22/17 03:59 Prednisone (PredniSONE TAB) 5 mg QPM PO 11/22/17 21:00 12/22/17 20:59 Tamsulosin HCl (Flomax Cap) 0.4 mg QPM PO 11/22/17 21:00 12/22/17 20:59 Tolterodine Tartrate (Detrol LA Cap) 2 mg QPM PO 11/22/17 21:00 12/22/17 20:59 Tramadol HCl (Ultram Tab) 50 mg Q4H PRN PO 11/22/17 04:00 12/22/17 03:59 11/22/17 09:01 50 MG Miscellaneous Information (Order Awaiting Action) 1 ea QS N/A 11/22/17 08:00 12/22/17 07:59 Ferrous Sulfate (Feosol Tab) 325 mg BIDM PO 11/22/17 08:00 12/22/17 07:59 Hydromorphone HCl (Dilaudid Inj) 0.5 mg Q6H PRN IV 11/22/17 04:00 12/06/17 03:59 Prochlorperazine Edisylate 5 mg/ Syringe 5 ml @ 5 mls/min Q6H PRN IV 11/22/17 04:00 12/22/17 03:59 Sodium Chloride 1,000 ml @ 60 mls/hr [id number] ONCE IV 11/22/17 05:30 11/22/17 22:09 11/22/17 08:54 60 MLS/HR Enoxaparin Sodium (Lovenox Inj) 40 mg Q24H SQ 11/22/17 08:00 12/22/17 07:59 Acetaminophen (Tylenol Tab) 650 mg Q4H PRN PO 11/22/17 04:00 12/22/17 03:59 11/22/17 09:01 650 MG Physical Exam Vital Signs Past 12 Hours Date Time Temp Pulse Resp B/P (MAP) Pulse Ox O2 Delivery O2 Flow Rate FiO2 11/22/17 08:37 36.9 94 17 180/105 (130) 96 11/22/17 05:28 36.4 91 16 157/87 92 Room Air 11/22/17 02:59 98 18 157/98 91 Room Air 11/22/17 02:21 37.2 102 18 136/113 93 Room Air 11/22/17 02:11 103 11/22/17 00:23 102 18 165/111 91 Room Air 11/21/17 23:36 37.5 104 18 140/102 92 Room Air 11/21/17 22:34 102 Constitutional: Alert, oriented, in no acute distress HEENT: Head is atraumatic and normocephalic. EOMs intact. Sclera anicteric. Face is symmetric. No perioral cyanosis. Mucous membranes moist. Neck: Supple, no JVD Pulmonary: Normal respiratory effort, clear to auscultation bilaterally Cardiac: Regular rate and rhythm with occasional ectopy, normal S1 and S2, no gallops, no rubs, 2/6 systolic murmur heard across the precordium Extremities: No clubbing or cyanosis. There are 2 wounds on the anterior/ lateral aspect of his right LE with surrounding erythema. 1+ right LE edema. Trace LLE edema. PT pulses nonpalpable. Abdomen: Normal bowel sounds, soft, non-tender, no abdominal mass palpated Skin: Normal skin color, turgor, and pigmentation, no rash, no skin lesions Neurological: Oriented to person, place, and time Data Laboratory Results: Last 24 Hours Test 11/21/17 22:25 11/21/17 22:44 11/21/17 23:00 11/22/17 06:03 White Blood Count 6.90 K/uL 5.54 K/uL Red Blood Count 4.03 M/uL 4.47 M/uL Hemoglobin 12.2 g/dL 12.8 g/dL Hematocrit 35.8 % 39.5 % Mean Corpuscular Volume 88.8 fL 88.4 fL Mean Corpuscular Hemoglobin 30.3 pg 28.6 pg Mean Corpuscular Hemoglobin Concent 34.1 g/dl 32.4 g/dl Platelet Count 189 K/uL 187 K/uL Mean Platelet Volume 10.0 fL 9.5 fL Neutrophils (%) (Auto) 74.0 % 64.2 % Lymphocytes (%) (Auto) 17.1 % 21.5 % Monocytes (%) (Auto) 7.1 % 10.5 % Eosinophils (%) (Auto) 1.4 % 3.2 % Basophils (%) (Auto) 0.3 % 0.4 % Neutrophils # (Auto) 5.10 K/uL 3.56 K/uL Lymphocytes # (Auto) 1.18 K/uL 1.19 K/uL Monocytes # (Auto) 0.49 K/uL 0.58 K/uL Eosinophils # (Auto) 0.10 K/uL 0.18 K/uL Basophils # (Auto) 0.02 K/uL 0.02 K/uL RDW Standard Deviation 45.7 fL 44.8 fL RDW Coefficient of Variation 13.9 % 13.8 % Immature Granulocyte % (Auto) 0.1 % 0.2 % Immature Granulocyte # (Auto) 0.01 K/uL 0.01 K/uL Sodium Level 137 mmol/L Potassium Level 4.0 mmol/L Chloride Level 103 mmol/L Carbon Dioxide Level 26 mmol/L Anion Gap 8.0 mmol/L Blood Urea Nitrogen 18 mg/dl Creatinine 1.25 mg/dl Estimated GFR () 60.0 Estimated GFR (Non- 51.8 BUN/Creatinine Ratio 14.5 Random Glucose 115 mg/dl Calcium Level 8.8 mg/dl Magnesium Level 2.0 mg/dl Total Bilirubin 0.9 mg/dl Direct Bilirubin 0.2 mg/dl Aspartate Amino Transf (AST/SGOT) 20 U/L Alanine Aminotransferase (ALT/SGPT) 20 U/L Alkaline Phosphatase 114 U/L Total Protein 7.2 gm/dl Albumin 3.3 gm/dl Lipase 97 U/L Bedside Lactic Acid Venous 0.84 mmol/L Urine Color YELLOW Urine Appearance CLEAR Urine pH 7.0 Urine Specific [place] 1.013 Urine Protein NEG Urine Glucose (UA) NEG Urine Ketones NEG Urine Occult Blood TRACE Urine Nitrite NEG Urine Bilirubin NEG Urine Urobilinogen NEG Urine Leukocyte Esterase NEG Urine WBC (Auto) 0 /hpf Urine RBC (Auto) 0-4 /hpf Urine Hyaline Casts (Auto) 1-5 /lpf Urine Epithelial Cells (Auto) 5-10 /lpf Urine Bacteria (Auto) NEG Prothrombin Time 10.7 SECONDS Prothromb Time International Ratio 1.0 Right fibula/tibia x-ray: 1. No fracture or dislocation within the right lower leg. 2. Diffuse soft tissue swelling. 3. No evidence for osteomyelitis. Right lower extremity venous doppler: No sonographic evidence of deep venous thrombosis. EKG: Sinus tachycardia with first degree AV block. 102 bpm. PACs. Left axis deviation. Pulmonary disease pattern. Echocardiogram 03/01/2017: Normal LV wall motion and systolic function. Severe concentric LVH. The aortic valve opening is severely reduced. Aortic valve imaging suggest severe aortic stenosis not confirmed by Doppler examination. The Doppler exam may have underestimated the degree of stenosis (Ao V2 max: 310.7 cm/sec, FCO(V,D): 1.0 cm2, Ao mean PG (full): 20.6 mmHg). No significant aortic regurgitation. Mild MR/TR. No evidence of pulmonary hypertension. Proximal ascending thoracic aorta is mildly enlarged. Cardiac catheterization 09/04/17: Mild coronary artery disease. RA = 7 mmHg; RV = 37/10 mmHg; PA = 35/18 (25) mmHg; PW = 12 mmHg; CO=5.45 L/min; CI = 2.63 L/min /m2; TPG = 13 mmHG; PVR = 2.39 rocha unit; LVEDP = 20 mmHg; Mean AV gradient = 41 mmHg with 15 mcg /kg/min of dobutamine. Post PVC mean AV gradient = 60 mmHg; Systemic hypertension (SBP > 210 mmHg for majority of the case) Assessment & Plan Patient is an 87-year-old male with multiple comorbidities including peripheral arterial disease, aortic stenosis, hypertension, dyslipidemia, hx of post-op atrial flutter, CKD, and COPD who presented to the ED yesterday with complaints of increased pain, redness, and edema of his right lower extremity. The patient has wounds of his lower extremities for which he has been following with the wound clinic. He recently underwent a lower extremity arterial duplex for further evaluation of his vasculature which showed right lower extremity tibial disease with occlusion of the tran artery; occlusion with collaterals of the [employer] ; very diminished mono flow in the ZIGGY with collaterals in the distal ZIGGY. Left lower extremity with severe tibial vessel disease with very diminished, mono flow; distal ZIGGY filled by collaterals. The results of the arterial duplex were reviewed, and it appears as though there is adequate blood flow to allow for wound healing. Recommend continued management of the lower extremity wounds as well as his other comorbidities. No intervention recommended at this time for his lower extremity peripheral arterial disease. Thank you for allowing us to see this patient in consultation. The patient was discussed with Dr. Hong, and the plan was made in collaboration with. DR. HONG ADDENDUM: Patient seen and examined. Agree with assessment and plan as outlined by BERONICA Carvajal. Right lower extremity appears well perfused but edematous and ulceration seems more consistent with venous disease. Reviewed recent lower extremity arterial duplex. Patient has severe tibial disease but CHLOE consistent with only moderate arterial insufficiency and feel perfusion should be adequate for wound healing. Recommend continued antibiotics, and compression therapy. As an outpatient can consider venous reflux ultrasound to evaluate for saphenous vein insufficiency potentially amenable to endovenous ablation. Thank you for consultation.
[2017-11-22 14:34] VITALS: BP 159/88; PULSE 77; TEMP 36.6; O2SAT 97
[2017-11-22] MEDS: DOXYCYCLINE IV 100 MG in DEXTROSE 5% 100ML 100 ML IV SCH (15:44)
[2017-11-22] MEDS: TOLTERODINE TARTRATE LA 4 MG CAPCR PO SCH (21:00)
[2017-11-22] MEDS: TAMSULOSIN HCL 0.4 MG CAP PO SCH (21:17)
[2017-11-22] MEDS: MIRABEGRON ER 25 MG TAB PO SCH (21:17)
[2017-11-22] MEDS: ATORVASTATIN 40 MG TAB PO SCH (21:19)
--- NOTE | 2017-11-22 21:39 | Progress Note ---
Medicine Progress Note Date & Time of Visit: Nov 22, 2017 at 15:40 . Subjective CC: Follow-up visit for cellulitis of right leg. HPI: Admitted early this morning with cellulitis of right leg. Has some leg discomfort, but not severe. No fever. . Objective Last 8 Hrs Date Time Temp Pulse Resp B/P (MAP) Pulse Ox O2 Delivery O2 Flow Rate FiO2 11/22/17 16:00 Room Air 11/22/17 14:34 36.6 77 18 159/88 (111) 97 Physical Exam: General- no distress Lungs- clear to auscultation; no respiratory distress Cardiovascular- RRR; III/ systolic murmur at base; no gallop appreciated; no JVD; 1+ pretibial edema RLE; no pretibial edema LLE Abdomen- + bowel sounds, soft, nontender Extremities- no cyanosis; no calf tenderness; wound RLE bandaged; moderate erythema below knee Neuro- alert, oriented Skin- warm & dry . Laboratory Results: Last 24 Hours Test 11/21/17 22:25 11/21/17 22:44 11/21/17 23:00 11/22/17 06:03 White Blood Count 6.90 K/uL 5.54 K/uL Red Blood Count 4.03 M/uL 4.47 M/uL Hemoglobin 12.2 g/dL 12.8 g/dL Hematocrit 35.8 % 39.5 % Mean Corpuscular Volume 88.8 fL 88.4 fL Mean Corpuscular Hemoglobin 30.3 pg 28.6 pg Mean Corpuscular Hemoglobin Concent 34.1 g/dl 32.4 g/dl Platelet Count 189 K/uL 187 K/uL Mean Platelet Volume 10.0 fL 9.5 fL Neutrophils (%) (Auto) 74.0 % 64.2 % Lymphocytes (%) (Auto) 17.1 % 21.5 % Monocytes (%) (Auto) 7.1 % 10.5 % Eosinophils (%) (Auto) 1.4 % 3.2 % Basophils (%) (Auto) 0.3 % 0.4 % Neutrophils # (Auto) 5.10 K/uL 3.56 K/uL Lymphocytes # (Auto) 1.18 K/uL 1.19 K/uL Monocytes # (Auto) 0.49 K/uL 0.58 K/uL Eosinophils # (Auto) 0.10 K/uL 0.18 K/uL Basophils # (Auto) 0.02 K/uL 0.02 K/uL RDW Standard Deviation 45.7 fL 44.8 fL RDW Coefficient of Variation 13.9 % 13.8 % Immature Granulocyte % (Auto) 0.1 % 0.2 % Immature Granulocyte # (Auto) 0.01 K/uL 0.01 K/uL Sodium Level 137 mmol/L Potassium Level 4.0 mmol/L Chloride Level 103 mmol/L Carbon Dioxide Level 26 mmol/L Anion Gap 8.0 mmol/L Blood Urea Nitrogen 18 mg/dl Creatinine 1.25 mg/dl Estimated GFR () 60.0 Estimated GFR (Non- 51.8 BUN/Creatinine Ratio 14.5 Random Glucose 115 mg/dl Calcium Level 8.8 mg/dl Magnesium Level 2.0 mg/dl Total Bilirubin 0.9 mg/dl Direct Bilirubin 0.2 mg/dl Aspartate Amino Transf (AST/SGOT) 20 U/L Alanine Aminotransferase (ALT/SGPT) 20 U/L Alkaline Phosphatase 114 U/L Total Protein 7.2 gm/dl Albumin 3.3 gm/dl Lipase 97 U/L Bedside Lactic Acid Venous 0.84 mmol/L Urine Color YELLOW Urine Appearance CLEAR Urine pH 7.0 Urine Specific [place] 1.013 Urine Protein NEG Urine Glucose (UA) NEG Urine Ketones NEG Urine Occult Blood TRACE Urine Nitrite NEG Urine Bilirubin NEG Urine Urobilinogen NEG Urine Leukocyte Esterase NEG Urine WBC (Auto) 0 /hpf Urine RBC (Auto) 0-4 /hpf Urine Hyaline Casts (Auto) 1-5 /lpf Urine Epithelial Cells (Auto) 5-10 /lpf Urine Bacteria (Auto) NEG Prothrombin Time 10.7 SECONDS Prothromb Time International Ratio 1.0 Date/Time Source Procedure Growth Status 11/21/17 23:12 Blood Blood Culture Pending Received 11/21/17 22:25 Blood Blood Culture Pending Received 11/21/17 23:00 Urine , Clean Catch Urine Culture Pending Received Assessment & Plan CELLULITIS RLE Blood cultures obtained. Receiving IV doxycycline. May need broader coverage if no improvement. CORONARY ARTERY DISEASE CHRONIC DIASTOLIC CHF AORTIC STENOSIS HYPERTENSION PERIPHERAL VASCULAR DISEASE COPD PSORIATIC ARTHRITIS VTE PROPHYLAXIS SQ enoxaparin. Ambulate. DISPOSITION Expected discharge to home. . Current Inpatient Medications: Current Inpatient Medications Medications (Trade) Dose Ordered Sig/Alberto Route Start Time Stop Time Status Last Admin Dose Admin Metoprolol Succinate (Toprol Xl Tab) 50 mg QAM PO 11/23/17 09:00 12/23/17 08:59 Doxycycline Hyclate 100 mg/ Dextrose 110 ml @ 50 mls/hr Q12H IV 11/22/17 16:00 12/02/17 15:59 11/22/17 15:44 50 MLS/HR Allopurinol (Zyloprim Tab) 300 mg QAM PO 11/22/17 09:00 12/22/17 08:59 Aspirin (Ecotrin Tab) 81 mg QAM PO 11/22/17 09:00 12/22/17 08:59 11/22/17 09:10 81 MG Atorvastatin Calcium (Lipitor Tab) 40 mg QPM PO 11/22/17 21:00 12/22/17 20:59 11/22/17 21:19 40 MG Gabapentin (Neurontin Cap) 300 mg TID PO 11/22/17 09:00 12/22/17 08:59 11/22/17 21:17 300 MG Mirabegron (Myrbetriq Er) 50 mg QPM PO 11/22/17 21:00 12/22/17 20:59 11/22/17 21:17 50 MG Mometasone Furoate (Asmanex 220MCG Inh) 1 puff BID INH 11/22/17 09:00 12/22/17 08:59 11/22/17 21:16 1 PUFF Pantoprazole Sodium (Protonix Tab) 40 mg QAM PO 11/22/17 09:00 12/22/17 08:59 11/22/17 09:10 40 MG Phenazopyridine HCl (Pyridium Tab) 200 mg TID PRN PO 11/22/17 04:00 12/22/17 03:59 Prednisone (PredniSONE TAB) 5 mg QPM PO 11/22/17 21:00 12/22/17 20:59 11/22/17 21:21 5 MG Tamsulosin HCl (Flomax Cap) 0.4 mg QPM PO 11/22/17 21:00 12/22/17 20:59 11/22/17 21:17 0.4 MG Tolterodine Tartrate (Detrol LA Cap) 2 mg QPM PO 11/22/17 21:00 12/22/17 20:59 Tramadol HCl (Ultram Tab) 50 mg Q4H PRN PO 11/22/17 04:00 12/22/17 03:59 11/22/17 09:01 50 MG Miscellaneous Information (Order Awaiting Action) 1 ea QS N/A 11/22/17 08:00 12/22/17 07:59 Ferrous Sulfate (Feosol Tab) 325 mg BIDM PO 11/22/17 08:00 12/22/17 07:59 Hydromorphone HCl (Dilaudid Inj) 0.5 mg Q6H PRN IV 11/22/17 04:00 12/06/17 03:59 Prochlorperazine Edisylate 5 mg/ Syringe 5 ml @ 5 mls/min Q6H PRN IV 11/22/17 04:00 12/22/17 03:59 Sodium Chloride 1,000 ml @ 60 mls/hr [id number] ONCE IV 11/22/17 05:30 11/22/17 22:09 11/22/17 08:54 60 MLS/HR Enoxaparin Sodium (Lovenox Inj) 40 mg Q24H SQ 11/22/17 08:00 12/22/17 07:59 Acetaminophen (Tylenol Tab) 650 mg Q4H PRN PO 11/22/17 04:00 12/22/17 03:59 11/22/17 09:01 650 MG
[2017-11-22 23:00] VITALS: BP 165/94; PULSE 91; TEMP 38; O2SAT 94
[2017-11-23] VITALS: O2SAT 92
[2017-11-23] MEDS: DOXYCYCLINE IV 100 MG in DEXTROSE 5% 100ML 100 ML IV SCH (03:36)
[2017-11-23] MEDS ORDERED: VANCOMYCIN CONSULT ACTIVE PRN (05:30)
[2017-11-23 06:33] LABS: HEMATOCRIT 39.6 % (42-52); MEAN CELL VOLUME 87.4 fL (80-100); MEAN CORPUSCULAR HEMOGLOBIN 28.7 pg (25-34); MEAN CORPUSCULAR HGB CONC 32.8 g/dl (32-36); MEAN PLATELET VOLUME 9.7 fL (7.4-10.4); PLATELET COUNT 235 K/uL (130-400); RED CELL DISTRIBUTION WIDTH CV 13.8 % (11.5-14.5); RED CELL DISTRIBUTION WIDTH SD 44.2 fL (36.4-46.3); WHITE BLOOD COUNT 8.87 K/uL (4.8-10.8)
[2017-11-23 07:07] LABS: CALCIUM 8.7 mg/dl (8.5-10.1); CREATININE 1.09 mg/dl (0.60-1.40); POTASSIUM 3.7 mmol/L (3.5-5.1)
[2017-11-23 07:15] VITALS: BP 155/85; PULSE 92; TEMP 37; O2SAT 92
[2017-11-23] MEDS: AVODART~ORDER AWAITING ACTION SCH ×2 (07:39→14:28)
[2017-11-23] MEDS: CEFTRIAXONE SOD INJ 2,000 MG in DEXTROSE 5% 50ML 50 ML IV SCH (08:55)
--- NOTE | 2017-11-23 08:59 | Pharmacy Progress Note ---
Pharmacy Abx Dose Short Note Date of Service Nov 23, 2017. Assessment & Plan Assessment * 87 year old male admitted for RLE cellulitis in the setting of venous stasis ulcers, psoriatic arthritis and PAD. * Patient follows w/ Wound Clinic * Most recent cx's (11/06/17) of RLE grew MSSA resistant only to e-mycin and sensitive to all other abx on panel, Vancomycin AJAY was 2 * Renal fxn appears to be near his baseline, SCr 1.09 this AM (Baseline ~ 1.1) Plan Vancomycin * Loading dose: 2000mg (~24mg/kg) x 1 * Maint dose: 1250mg (~14.8mg/kg) IV Q 18 hours * Goal trough level for skin/skin structure infxn involving organism w/ AJAY 2 : 15 to 20 mcg/mL (closer to 20 as AJAY of 2 requires aggressive dosing) * Trough level ordered for: 11/26/17 w/ 4th maint dose * p'kinetic estimates: Vd 0.7L/kg, half-life ~16 hours * Pt is also receiving Rocephin IV which should cover the MSSA if this is again the causative organism, will await cx results Pharmacy will continue to follow and will adjust dose/frequency as necessary. Thank you.
[2017-11-23] MEDS ORDERED: VANCOMYCIN IV 2,000 MG in SODIUM CHLORIDE 0.9% 500ML 500 ML IV SCH (09:00)
[2017-11-23] MEDS: GABAPENTIN 300 MG CAP PO SCH ×3 (11:13→19:59)
[2017-11-23] MEDS: MOMETASONE FUROATE 14 PUFF/1 INHALER INH SCH ×2 (11:14→19:58)
[2017-11-23] MEDS: PANTOprazole SOD 40 MG TAB PO SCH (11:14)
[2017-11-23] MEDS: ALLOPURINOL 300 MG TAB PO SCH (11:14)
[2017-11-23] MEDS: METOPROLOL SUCC 50MG EXT REL TAB PO SCH (11:14)
[2017-11-23] MEDS: FERROUS SULFATE 325 MG TAB PO SCH ×2 (11:14→17:01)
[2017-11-23] MEDS: ASPIRIN 81 MG ECTAB PO SCH (11:14)
[2017-11-23] MEDS: ENOXAPARIN 40 MG/0.4 ML SYR SQ SCH (11:22)
[2017-11-23 14:58] VITALS: BP 172/97; PULSE 87; TEMP 36.5; O2SAT 98
[2017-11-23 15:57] VITALS: BP 162/90
[2017-11-23] MEDS: TOLTERODINE TARTRATE LA 4 MG CAPCR PO SCH (19:59)
[2017-11-23] MEDS: ATORVASTATIN 40 MG TAB PO SCH (19:59)
[2017-11-23] MEDS: MIRABEGRON ER 25 MG TAB PO SCH (20:00)
[2017-11-23] MEDS: TAMSULOSIN HCL 0.4 MG CAP PO SCH (20:00)
[2017-11-23] MEDS: TOLTERODINE TARTRATE LA 2 MG CAPCR PO SCH (20:17)
--- NOTE | 2017-11-23 22:34 | Progress Note ---
Medicine Progress Note Date & Time of Visit: Nov 23, 2017 at 10:20 . Subjective CC: Follow-up visit for cellulitis RLE. HPI: Febrile last night. Persistent pain swelling right leg. Daughter visiting. ROS: General- no fever, no chills Resp- no cough; no shortness of breath Cardiac- no chest pain, no edema GI- no nausea, no vomiting, no diarrhea, no constipation - chronic urinary incontinence. . Objective Last 8 Hrs Date Time Temp Pulse Resp B/P (MAP) Pulse Ox O2 Delivery O2 Flow Rate FiO2 11/23/17 16:00 Room Air 11/23/17 15:57 162/90 (114) 11/23/17 14:58 36.5 87 18 172/97 (122) 98 Room Air Physical Exam: General- no distress Lungs- clear to auscultation; no respiratory distress Cardiovascular- RRR; III/ systolic murmur at base; no gallop appreciated; no JVD; 1+ pretibial edema RLE; no pretibial edema LLE Abdomen- + bowel sounds, soft, nontender Extremities- no cyanosis; no calf tenderness; wound RLE bandaged; moderate erythema below knee Neuro- alert, oriented Skin- warm & dry . Laboratory Results: Last 24 Hours Test 11/23/17 05:46 White Blood Count 8.87 K/uL Red Blood Count 4.53 M/uL Hemoglobin 13.0 g/dL Hematocrit 39.6 % Mean Corpuscular Volume 87.4 fL Mean Corpuscular Hemoglobin 28.7 pg Mean Corpuscular Hemoglobin Concent 32.8 g/dl RDW Standard Deviation 44.2 fL RDW Coefficient of Variation 13.8 % Platelet Count 235 K/uL Mean Platelet Volume 9.7 fL Sodium Level 135 mmol/L Potassium Level 3.7 mmol/L Chloride Level 101 mmol/L Carbon Dioxide Level 26 mmol/L Anion Gap 8.0 mmol/L Blood Urea Nitrogen 15 mg/dl Creatinine 1.09 mg/dl Est Creatinine Clear Calc Drug Dose 47.7 ml/min Estimated GFR () 70.9 Estimated GFR (Non- 61.1 BUN/Creatinine Ratio 13.4 Random Glucose 133 mg/dl Calcium Level 8.7 mg/dl Assessment & Plan CELLULITIS RLE Blood cultures obtained. Initially received IV doxycycline. Febrile last night. No improvement of cellulitis. Change Rx to vancomycin and ceftriaxone. Consult ID. CORONARY ARTERY DISEASE No anginal symptoms. Continue aspirin and metoprolol. CHRONIC DIASTOLIC CHF Compensated. AORTIC STENOSIS Followed by Cardiology. HYPERTENSION Continue metoprolol. PERIPHERAL VASCULAR DISEASE COPD Stable. PSORIATIC ARTHRITIS Continue prednisone. VTE PROPHYLAXIS SQ enoxaparin. Ambulate. DISPOSITION Expected discharge to home. Daughter given update. . Current Inpatient Medications: Current Inpatient Medications Medications (Trade) Dose Ordered Sig/Alberto Route Start Time Stop Time Status Last Admin Dose Admin Metoprolol Succinate (Toprol Xl Tab) 50 mg QAM PO 11/23/17 09:00 12/23/17 08:59 11/23/17 11:14 50 MG Allopurinol (Zyloprim Tab) 300 mg QAM PO 11/22/17 09:00 12/22/17 08:59 11/23/17 11:14 300 MG Aspirin (Ecotrin Tab) 81 mg QAM PO 11/22/17 09:00 12/22/17 08:59 11/23/17 11:14 81 MG Atorvastatin Calcium (Lipitor Tab) 40 mg QPM PO 11/22/17 21:00 12/22/17 20:59 11/23/17 19:59 40 MG Gabapentin (Neurontin Cap) 300 mg TID PO 11/22/17 09:00 12/22/17 08:59 11/23/17 19:59 300 MG Mirabegron (Myrbetriq Er) 50 mg QPM PO 11/22/17 21:00 12/22/17 20:59 11/23/17 20:00 50 MG Mometasone Furoate (Asmanex 220MCG Inh) 1 puff BID INH 11/22/17 09:00 12/22/17 08:59 11/23/17 19:58 1 PUFF Pantoprazole Sodium (Protonix Tab) 40 mg QAM PO 11/22/17 09:00 12/22/17 08:59 11/23/17 11:14 40 MG Phenazopyridine HCl (Pyridium Tab) 200 mg TID PRN PO 11/22/17 04:00 12/22/17 03:59 Prednisone (PredniSONE TAB) 5 mg QPM PO 11/22/17 21:00 12/22/17 20:59 11/23/17 19:59 5 MG Tamsulosin HCl (Flomax Cap) 0.4 mg QPM PO 11/22/17 21:00 12/22/17 20:59 11/23/17 20:00 0.4 MG Tramadol HCl (Ultram Tab) 50 mg Q4H PRN PO 11/22/17 04:00 12/22/17 03:59 11/22/17 09:01 50 MG Miscellaneous Information (Order Awaiting Action) 1 ea QS N/A 11/22/17 08:00 12/22/17 07:59 Ferrous Sulfate (Feosol Tab) 325 mg BIDM PO 11/22/17 08:00 12/22/17 07:59 11/23/17 17:01 325 MG Hydromorphone HCl (Dilaudid Inj) 0.5 mg Q6H PRN IV 11/22/17 04:00 12/06/17 03:59 Prochlorperazine Edisylate 5 mg/ Syringe 5 ml @ 5 mls/min Q6H PRN IV 11/22/17 04:00 12/22/17 03:59 Enoxaparin Sodium (Lovenox Inj) 40 mg Q24H SQ 11/22/17 08:00 12/22/17 07:59 Acetaminophen (Tylenol Tab) 650 mg Q4H PRN PO 11/22/17 04:00 12/22/17 03:59 11/22/17 09:01 650 MG Vancomycin HCl (Consult) 1 ea UD PRN N/A 11/23/17 05:30 12/23/17 05:29 Ceftriaxone Sodium 2000 mg/ Dextrose 70 ml @ 100 mls/hr Q24H IV 11/23/17 09:00 12/03/17 08:59 11/23/17 08:55 100 MLS/HR Vancomycin HCl 1250 mg/Sodium Chloride 275 ml @ 125 mls/hr Q18H IV 11/24/17 04:00 12/04/17 03:59 Tolterodine Tartrate (Detrol LA Cap) 2 mg QPM PO 11/23/17 21:00 12/23/17 20:59 11/23/17 20:17 2 MG
[2017-11-23 23:07] VITALS: BP 155/92; PULSE 89; TEMP 37.1; O2SAT 95
[2017-11-24] MEDS: VANCOMYCIN IV 1,250 MG in SODIUM CHLORIDE 0.9% 250ML 250 ML IV SCH ×2 (04:28→22:14)
[2017-11-24 06:14] LABS: HEMATOCRIT 38.5 % (42-52); HEMOGLOBIN 12.6 g/dL (14.0-18.0); MEAN CELL VOLUME 87.5 fL (80-100); MEAN CORPUSCULAR HEMOGLOBIN 28.6 pg (25-34); MEAN CORPUSCULAR HGB CONC 32.7 g/dl (32-36); MEAN PLATELET VOLUME 9.9 fL (7.4-10.4); PLATELET COUNT 224 K/uL (130-400); RED CELL DISTRIBUTION WIDTH CV 13.8 % (11.5-14.5); RED CELL DISTRIBUTION WIDTH SD 43.9 fL (36.4-46.3); WHITE BLOOD COUNT 6.59 K/uL (4.8-10.8)
[2017-11-24 06:52] LABS: CALCIUM 8.2 mg/dl (8.5-10.1); CREATININE 1.2 mg/dl (0.60-1.40); POTASSIUM 3.8 mmol/L (3.5-5.1)
--- NOTE | 2017-11-24 07:02 | Progress Note ---
Progress Note Date of Service Nov 24, 2017. Progress Note ID Consult Dictated #[id number] A/P: 1. RLE cellulitis/infected wound - previous MSSA -Continue abx, follow blood cultures -Will follow, thank you
[2017-11-24 07:04] VITALS: BP 155/94; PULSE 92; TEMP 37; O2SAT 94
[2017-11-24] MEDS: AVODART~ORDER AWAITING ACTION SCH ×4 (07:29→23:12)
--- NOTE | 2017-11-24 07:58 | INFECT. DISEASE CONSULTATION ---
DATE OF CONSULTATION: 11/24/2017 HISTORY OF PRESENT ILLNESS: This is an 87-year-old gentleman who was admitted to the hospital for right lower extremity cellulitis. He does have a history of venous stasis ulcers which have been chronic. He was last seen in the wound center in September. He also has had workup with ABIs which have been abnormal and showing severe disease on the left side. On my examination today, the patient denies any fevers or chills. He denies any pain. He did admit that the wound on his right leg was enlarging. He was placed on empiric antibiotics. He is currently on vancomycin and Rocephin and he appears to be tolerating them well. He denies any nausea, vomiting, diarrhea or abdominal pain. He states his appetite was poor, but he is hungry this morning and he feels this is improving. Overall, he states he is feeling better, but he does not feel that he has had significant improvement in his cellulitis. He is currently afebrile. His white blood cell count has been normal. Urine culture and blood cultures are negative. He did have an outpatient culture done on 11/06 of the right lower extremity which grew MSSA and the wound culture has been done during this admission. He did have an ultrasound done on the which was negative for DVT. REVIEW OF SYSTEMS: His remaining review of systems is unremarkable. PAST MEDICAL HISTORY: Significant for heart failure, hypertension, coronary artery disease, COPD, peripheral vascular disease, anemia, venous stasis ulcers, psoriatic arthritis, on prednisone, BPH. PAST SURGICAL HISTORY: Significant for toe amputation, back surgery and wound debridements. ALLERGIES: COLCHICINE AND MORPHINE. FAMILY HISTORY: Noncontributory. SOCIAL HISTORY: Significant for history of tobacco use. He denies any alcohol or drug use. MEDICATIONS: Vancomycin, Detrol-LA, Topral-XL, ceftriaxone, Lipitor, Myrbetriq, prednisone, Flomax, allopurinol, aspirin, Protonix, iron, Lovenox, Pyridium, Ultram, Dilaudid and Tylenol. PHYSICAL EXAMINATION: VITAL SIGNS: He is currently afebrile, pulse 89, respiratory rate 18, blood pressure 155/92, oxygen saturation is 95% on room air. GENERAL: He is awake, alert and oriented x3. He is in no acute distress. HEENT: Mucous membranes are moist. Dentition is poor. HEART: Without murmur. LUNGS: Clear bilaterally. ABDOMEN: Soft, nontender, nondistended. There is significant erythema and warmth of the right lower extremity. A dressing over anterior calf wound is clean, dry and intact. LABORATORY STUDIES: CBC today, white blood cell count 6.5, hemoglobin 12.6, platelets 224. Chemistry panel: Sodium 135, potassium 3.7, chloride 101, bicarb 26, BUN 15, creatinine 1.0, glucose 103. UA is negative. A flu swab error. Blood cultures on the are no growth to date. Urine cultures no growth to date. Previous wound culture on the is growing MSSA. IMAGING DATA: As above. ASSESSMENT AND PLAN: Right lower extremity cellulitis. He can remain on empiric antibiotics. If the blood cultures remain negative, he likely will be transitioned to therapy to focus on MSSA that grew from the wound in October. Thank you for this consultation.
[2017-11-24] MEDS: ALLOPURINOL 300 MG TAB PO SCH (08:16)
[2017-11-24] MEDS: ASPIRIN 81 MG ECTAB PO SCH (08:16)
[2017-11-24] MEDS: GABAPENTIN 300 MG CAP PO SCH ×3 (08:16→20:18)
[2017-11-24] MEDS: PANTOprazole SOD 40 MG TAB PO SCH (08:16)
[2017-11-24] MEDS: METOPROLOL SUCC 50MG EXT REL TAB PO SCH (08:16)
[2017-11-24] MEDS: MOMETASONE FUROATE 14 PUFF/1 INHALER INH SCH ×2 (08:17→20:17)
[2017-11-24] MEDS: ENOXAPARIN 40 MG/0.4 ML SYR SQ SCH (08:17)
[2017-11-24] MEDS: FERROUS SULFATE 325 MG TAB PO SCH ×2 (08:17→17:01)
[2017-11-24] MEDS: CEFTRIAXONE SOD INJ 2,000 MG in DEXTROSE 5% 50ML 50 ML IV SCH (08:28)
[2017-11-24 15:41] VITALS: BP 142/91; PULSE 90; TEMP 36.8; O2SAT 95
[2017-11-24] MEDS: TOLTERODINE TARTRATE LA 2 MG CAPCR PO SCH (20:18)
[2017-11-24] MEDS: ATORVASTATIN 40 MG TAB PO SCH (20:18)
[2017-11-24] MEDS: TAMSULOSIN HCL 0.4 MG CAP PO SCH (20:18)
[2017-11-24] MEDS: MIRABEGRON ER 25 MG TAB PO SCH (20:20)
--- NOTE | 2017-11-24 21:05 | Progress Note ---
Medicine Progress Note Date & Time of Visit: Nov 24, 2017 at 11:30 . Subjective CC: Follow-up visit for cellulitis RLE. HPI: No fever last night. Right leg feels better. Appetite better. ROS: General- no fever, no chills Resp- no cough; no shortness of breath Cardiac- no chest pain, no edema GI- no nausea, no vomiting, no diarrhea, no constipation - chronic urinary incontinence. . Objective Last 8 Hrs Date Time Temp Pulse Resp B/P (MAP) Pulse Ox O2 Delivery O2 Flow Rate FiO2 11/24/17 16:00 Room Air 11/24/17 15:41 36.8 90 18 142/91 (108) 95 Room Air Physical Exam: General- no distress Lungs- clear to auscultation; no respiratory distress Cardiovascular- RRR; III/ systolic murmur at base; no gallop appreciated; no JVD; 1+ pretibial edema RLE; no pretibial edema LLE Abdomen- + bowel sounds, soft, nontender Extremities- no cyanosis; no calf tenderness; wound RLE bandaged; erythema below knee slightly improved Neuro- alert, oriented Skin- warm & dry . Laboratory Results: Last 24 Hours Test 11/24/17 05:42 White Blood Count 6.59 K/uL Red Blood Count 4.40 M/uL Hemoglobin 12.6 g/dL Hematocrit 38.5 % Mean Corpuscular Volume 87.5 fL Mean Corpuscular Hemoglobin 28.6 pg Mean Corpuscular Hemoglobin Concent 32.7 g/dl RDW Standard Deviation 43.9 fL RDW Coefficient of Variation 13.8 % Platelet Count 224 K/uL Mean Platelet Volume 9.9 fL Sodium Level 134 mmol/L Potassium Level 3.8 mmol/L Chloride Level 102 mmol/L Carbon Dioxide Level 26 mmol/L Anion Gap 6.0 mmol/L Blood Urea Nitrogen 19 mg/dl Creatinine 1.20 mg/dl Est Creatinine Clear Calc Drug Dose 43.3 ml/min Estimated GFR () 63.1 Estimated GFR (Non- 54.4 BUN/Creatinine Ratio 15.6 Random Glucose 117 mg/dl Calcium Level 8.2 mg/dl Assessment & Plan CELLULITIS RLE Outpatient wound culture 11/06/17 grew MSSA. Presented with worsening swelling and erythema RLE. Blood cultures obtained. Initially received IV doxycycline. Changed Rx to vancomycin and ceftriaxone because of fever and lack of clinical improvement. ID consulted. Temp down. Cellulitis improved. Continue vancomycin and ceftriaxone. SKIN ULCER RLE Possibly due to venous stasis. Wound Care and Interventional Cardiology consulted. RLE EDEMA Venous duplex lower extremity negative for DVT. CORONARY ARTERY DISEASE No anginal symptoms. Continue aspirin and metoprolol. CHRONIC DIASTOLIC CHF Compensated. AORTIC STENOSIS Followed by Cardiology. HYPERTENSION Continue metoprolol. PERIPHERAL VASCULAR DISEASE Interventional Cardiology consulted. COPD Stable. PSORIATIC ARTHRITIS Continue prednisone. VTE PROPHYLAXIS SQ enoxaparin. Ambulate. DISPOSITION Expected discharge to home. . Current Inpatient Medications: Current Inpatient Medications Medications (Trade) Dose Ordered Sig/Alberto Route Start Time Stop Time Status Last Admin Dose Admin Metoprolol Succinate (Toprol Xl Tab) 50 mg QAM PO 11/23/17 09:00 12/23/17 08:59 11/24/17 08:16 50 MG Allopurinol (Zyloprim Tab) 300 mg QAM PO 11/22/17 09:00 12/22/17 08:59 11/24/17 08:16 300 MG Aspirin (Ecotrin Tab) 81 mg QAM PO 11/22/17 09:00 12/22/17 08:59 11/24/17 08:16 81 MG Atorvastatin Calcium (Lipitor Tab) 40 mg QPM PO 11/22/17 21:00 12/22/17 20:59 11/24/17 20:18 40 MG Gabapentin (Neurontin Cap) 300 mg TID PO 11/22/17 09:00 12/22/17 08:59 11/24/17 20:18 300 MG Mirabegron (Myrbetriq Er) 50 mg QPM PO 11/22/17 21:00 12/22/17 20:59 11/24/17 20:20 50 MG Mometasone Furoate (Asmanex 220MCG Inh) 1 puff BID INH 11/22/17 09:00 12/22/17 08:59 11/24/17 20:17 1 PUFF Pantoprazole Sodium (Protonix Tab) 40 mg QAM PO 11/22/17 09:00 12/22/17 08:59 11/24/17 08:16 40 MG Phenazopyridine HCl (Pyridium Tab) 200 mg TID PRN PO 11/22/17 04:00 12/22/17 03:59 Prednisone (PredniSONE TAB) 5 mg QPM PO 11/22/17 21:00 12/22/17 20:59 11/24/17 20:19 5 MG Tamsulosin HCl (Flomax Cap) 0.4 mg QPM PO 11/22/17 21:00 12/22/17 20:59 11/24/17 20:18 0.4 MG Tramadol HCl (Ultram Tab) 50 mg Q4H PRN PO 11/22/17 04:00 12/22/17 03:59 11/22/17 09:01 50 MG Miscellaneous Information (Order Awaiting Action) 1 ea QS N/A 11/22/17 08:00 12/22/17 07:59 Ferrous Sulfate (Feosol Tab) 325 mg BIDM PO 11/22/17 08:00 12/22/17 07:59 11/24/17 17:01 325 MG Hydromorphone HCl (Dilaudid Inj) 0.5 mg Q6H PRN IV 11/22/17 04:00 12/06/17 03:59 Prochlorperazine Edisylate 5 mg/ Syringe 5 ml @ 5 mls/min Q6H PRN IV 11/22/17 04:00 12/22/17 03:59 Enoxaparin Sodium (Lovenox Inj) 40 mg Q24H SQ 11/22/17 08:00 12/22/17 07:59 11/24/17 08:17 40 MG Acetaminophen (Tylenol Tab) 650 mg Q4H PRN PO 11/22/17 04:00 12/22/17 03:59 11/22/17 09:01 650 MG Vancomycin HCl (Consult) 1 ea UD PRN N/A 11/23/17 05:30 12/23/17 05:29 Ceftriaxone Sodium 2000 mg/ Dextrose 70 ml @ 100 mls/hr Q24H IV 11/23/17 09:00 12/03/17 08:59 11/24/17 08:28 100 MLS/HR Vancomycin HCl 1250 mg/Sodium Chloride 275 ml @ 125 mls/hr Q18H IV 11/24/17 04:00 12/04/17 03:59 11/24/17 04:28 125 MLS/HR Tolterodine Tartrate (Detrol LA Cap) 2 mg QPM PO 11/23/17 21:00 12/23/17 20:59 11/24/17 20:18 2 MG
[2017-11-24 23:03] VITALS: BP 155/99; PULSE 92; TEMP 37; O2SAT 96
[2017-11-25 07:15] LABS: HEMATOCRIT 37.3 % (42-52); HEMOGLOBIN 12.2 g/dL (14.0-18.0); MEAN CELL VOLUME 87.6 fL (80-100); MEAN CORPUSCULAR HEMOGLOBIN 28.6 pg (25-34); MEAN CORPUSCULAR HGB CONC 32.7 g/dl (32-36); PLATELET COUNT 216 K/uL (130-400); RED CELL DISTRIBUTION WIDTH SD 44.9 fL (36.4-46.3); WHITE BLOOD COUNT 6.21 K/uL (4.8-10.8)
[2017-11-25 07:18] VITALS: BP_SYST 167; BP_SYST 172; BP_DIAS 107; BP_DIAS 108; PULSE 90; TEMP 36.9; O2SAT 96
[2017-11-25 07:42] LABS: CALCIUM 8.6 mg/dl (8.5-10.1); CREATININE 1.28 mg/dl (0.60-1.40); POTASSIUM 3.9 mmol/L (3.5-5.1)
[2017-11-25] MEDS: AVODART~ORDER AWAITING ACTION SCH ×2 (08:00→14:41)
[2017-11-25] MEDS: PANTOprazole SOD 40 MG TAB PO SCH (08:20)
[2017-11-25] MEDS: METOPROLOL SUCC 50MG EXT REL TAB PO SCH (08:20)
[2017-11-25] MEDS: GABAPENTIN 300 MG CAP PO SCH ×3 (08:20→20:10)
[2017-11-25] MEDS: ASPIRIN 81 MG ECTAB PO SCH (08:21)
[2017-11-25] MEDS: ALLOPURINOL 300 MG TAB PO SCH (08:21)
[2017-11-25] MEDS: FERROUS SULFATE 325 MG TAB PO SCH ×2 (08:21→16:24)
[2017-11-25] MEDS: ENOXAPARIN 40 MG/0.4 ML SYR SQ SCH (08:22)
[2017-11-25] MEDS: MOMETASONE FUROATE 14 PUFF/1 INHALER INH SCH ×2 (08:22→20:08)
[2017-11-25 08:24] VITALS: BP 148/86; PULSE 97
[2017-11-25] MEDS: CEFTRIAXONE SOD INJ 2,000 MG in DEXTROSE 5% 50ML 50 ML IV SCH (08:30)
--- NOTE | 2017-11-25 10:00 | Progress Note ---
Subjective Date of Service: Nov 25, 2017. Subjective pt off of floor at time of my exam, remains on IV abx, tolerating well. afebrile. blood cultures remain negative. previous outpatient culture with MSSA Problem List Medical Problems: (1) Cellulitis Status: Acute (2) Dehydration Status: Acute (3) Diarrhea Status: Acute (4) Facial laceration Status: Acute (5) Head injury Status: Acute (6) Headache Status: Acute (7) Leg pain, right Status: Acute (8) Leg ulcer Status: Acute (9) Nausea Status: Acute (10) Poor fluid intake Status: Acute (11) Poor nutrition Status: Acute (12) Syncope Status: Acute (13) Weakness Status: Acute Objective Vital Signs Date Time Temp Pulse Resp B/P (MAP) Pulse Ox O2 Delivery O2 Flow Rate FiO2 11/25/17 08:24 97 148/86 (106) 11/25/17 07:44 Room Air 11/25/17 07:18 36.9 90 19 172/107 (128) 96 Room Air 167/108 (127) 11/25/17 00:00 Room Air 11/24/17 23:03 37.0 92 20 155/99 (117) 96 Room Air 11/24/17 16:00 Room Air 11/24/17 15:41 36.8 90 18 142/91 (108) 95 Room Air Laboratory Results Item Value Date Time Blood Culture - Preliminary Resulted 11/21/17 2312 Blood NO GROWTH TO DATE. Blood Culture - Preliminary Resulted 11/21/17 2225 Blood NO GROWTH TO DATE. Last 24 Hours Test 11/25/17 06:50 White Blood Count 6.21 K/uL Red Blood Count 4.26 M/uL Hemoglobin 12.2 g/dL Hematocrit 37.3 % Mean Corpuscular Volume 87.6 fL Mean Corpuscular Hemoglobin 28.6 pg Mean Corpuscular Hemoglobin Concent 32.7 g/dl RDW Standard Deviation 44.9 fL RDW Coefficient of Variation 14.0 % Platelet Count 216 K/uL Mean Platelet Volume 10.0 fL Sodium Level 138 mmol/L Potassium Level 3.9 mmol/L Chloride Level 104 mmol/L Carbon Dioxide Level 28 mmol/L Anion Gap 6.0 mmol/L Blood Urea Nitrogen 21 mg/dl Creatinine 1.28 mg/dl Est Creatinine Clear Calc Drug Dose 40.6 ml/min Estimated GFR () 58.3 Estimated GFR (Non- 50.3 BUN/Creatinine Ratio 16.5 Random Glucose 114 mg/dl Calcium Level 8.6 mg/dl Assessment and Plan (1) Cellulitis Assessment & Plan: previous culture with MSSA. blood cultures negative, will stop vanco. can transition to po kelfex for min 14 days at d/c. will need continued wound care followup post d/c. (2) Leg ulcer
--- NOTE | 2017-11-25 15:21 | Progress Note ---
Medicine Progress Note Date & Time of Visit: Nov 25, 2017 at 15:15. Subjective seen sitting up in bed, comfortable states he feels fine right leg wound slightly improving as per patient not much pain denies other symptoms Objective Last 8 Hrs Date Time Temp Pulse Resp B/P (MAP) Pulse Ox O2 Delivery O2 Flow Rate FiO2 11/25/17 08:24 97 148/86 (106) 11/25/17 07:44 Room Air 11/25/17 07:18 36.9 90 19 172/107 (128) 96 Room Air 167/108 (127) Physical Exam: General- oriented x 3, not in distress, speaks in sentences with no effrot Head- atraumatic Eyes- anicteric ENT- oropharynx clear Neck- supple, no JVD Lungs- clear to auscultation bilaterally Heart- regular rhythm; no murmur, normal rate Abdomen- normal bowel sounds, soft, nontender Extremities- right lower leg ; (+) erythema receding from demarcation line, 2 small ulcers- drying, mild edema left: no pretibial edema, no calf tenderness; peripheral pulses intact Neuro- alert, oriented x 3; decreased hearing otherwise no gross focal deficits Skin- warm & dry Laboratory Results: Last 24 Hours Test 11/25/17 06:50 White Blood Count 6.21 K/uL Red Blood Count 4.26 M/uL Hemoglobin 12.2 g/dL Hematocrit 37.3 % Mean Corpuscular Volume 87.6 fL Mean Corpuscular Hemoglobin 28.6 pg Mean Corpuscular Hemoglobin Concent 32.7 g/dl RDW Standard Deviation 44.9 fL RDW Coefficient of Variation 14.0 % Platelet Count 216 K/uL Mean Platelet Volume 10.0 fL Sodium Level 138 mmol/L Potassium Level 3.9 mmol/L Chloride Level 104 mmol/L Carbon Dioxide Level 28 mmol/L Anion Gap 6.0 mmol/L Blood Urea Nitrogen 21 mg/dl Creatinine 1.28 mg/dl Est Creatinine Clear Calc Drug Dose 40.6 ml/min Estimated GFR () 58.3 Estimated GFR (Non- 50.3 BUN/Creatinine Ratio 16.5 Random Glucose 114 mg/dl Calcium Level 8.6 mg/dl Assessment & Plan CELLULITIS RLE, MSSA Outpatient wound culture 11/06/17 grew MSSA. Presented with worsening swelling and erythema RLE. Blood cultures obtained negative Initially received IV doxycycline. Changed Rx to vancomycin and ceftriaxone because of fever and lack of clinical improvement. slowly improving d/c Vanco, continue Ceftri IV ID recommends Cephalexin on discharge, anticipate d/c tomorrow with Home Health SKIN ULCER RLE Possibly due to venous stasis. Wound Care Consulted: instructions provided Interventional Cardiology consulted- no further intervention at this time "Reviewed recent lower extremity arterial duplex. Patient has severe tibial disease but CHLOE consistent with only moderate arterial insufficiency and feel perfusion should be adequate for wound healing." RLE EDEMA Venous duplex lower extremity negative for DVT. CORONARY ARTERY DISEASE No anginal symptoms. Continue aspirin and metoprolol. CHRONIC DIASTOLIC CHF Compensated. AORTIC STENOSIS Followed by Cardiology. HYPERTENSION Continue metoprolol. PERIPHERAL VASCULAR DISEASE Interventional Cardiology consulted. COPD Stable. PSORIATIC ARTHRITIS Continue prednisone. VTE PROPHYLAXIS SQ enoxaparin. Ambulate. DISPOSITION Expected discharge to home tomorrow with home health services. Current Inpatient Medications: Current Inpatient Medications Medications (Trade) Dose Ordered Sig/Alberto Route Start Time Stop Time Status Last Admin Dose Admin Metoprolol Succinate (Toprol Xl Tab) 50 mg QAM PO 11/23/17 09:00 12/23/17 08:59 11/25/17 08:20 50 MG Allopurinol (Zyloprim Tab) 300 mg QAM PO 11/22/17 09:00 12/22/17 08:59 11/25/17 08:21 300 MG Aspirin (Ecotrin Tab) 81 mg QAM PO 11/22/17 09:00 12/22/17 08:59 11/25/17 08:21 81 MG Atorvastatin Calcium (Lipitor Tab) 40 mg QPM PO 11/22/17 21:00 12/22/17 20:59 11/24/17 20:18 40 MG Gabapentin (Neurontin Cap) 300 mg TID PO 11/22/17 09:00 12/22/17 08:59 11/25/17 13:46 300 MG Mirabegron (Myrbetriq Er) 50 mg QPM PO 11/22/17 21:00 12/22/17 20:59 11/24/17 20:20 50 MG Mometasone Furoate (Asmanex 220MCG Inh) 1 puff BID INH 11/22/17 09:00 12/22/17 08:59 11/25/17 08:22 1 PUFF Pantoprazole Sodium (Protonix Tab) 40 mg QAM PO 11/22/17 09:00 12/22/17 08:59 11/25/17 08:20 40 MG Phenazopyridine HCl (Pyridium Tab) 200 mg TID PRN PO 11/22/17 04:00 12/22/17 03:59 Prednisone (PredniSONE TAB) 5 mg QPM PO 11/22/17 21:00 12/22/17 20:59 11/24/17 20:19 5 MG Tamsulosin HCl (Flomax Cap) 0.4 mg QPM PO 11/22/17 21:00 12/22/17 20:59 11/24/17 20:18 0.4 MG Tramadol HCl (Ultram Tab) 50 mg Q4H PRN PO 11/22/17 04:00 12/22/17 03:59 11/22/17 09:01 50 MG Miscellaneous Information (Order Awaiting Action) 1 ea QS N/A 11/22/17 08:00 12/22/17 07:59 Ferrous Sulfate (Feosol Tab) 325 mg BIDM PO 11/22/17 08:00 12/22/17 07:59 11/25/17 08:21 325 MG Hydromorphone HCl (Dilaudid Inj) 0.5 mg Q6H PRN IV 11/22/17 04:00 12/06/17 03:59 Prochlorperazine Edisylate 5 mg/ Syringe 5 ml @ 5 mls/min Q6H PRN IV 11/22/17 04:00 12/22/17 03:59 Enoxaparin Sodium (Lovenox Inj) 40 mg Q24H SQ 11/22/17 08:00 12/22/17 07:59 11/25/17 08:22 40 MG Acetaminophen (Tylenol Tab) 650 mg Q4H PRN PO 11/22/17 04:00 12/22/17 03:59 11/22/17 09:01 650 MG Ceftriaxone Sodium 2000 mg/ Dextrose 70 ml @ 100 mls/hr Q24H IV 11/23/17 09:00 12/03/17 08:59 11/25/17 08:30 100 MLS/HR Tolterodine Tartrate (Detrol LA Cap) 2 mg QPM PO 11/23/17 21:00 12/23/17 20:59 11/24/17 20:18 2 MG
[2017-11-25 15:47] VITALS: BP 152/93; PULSE 89; TEMP 36.3; O2SAT 96
[2017-11-25] MEDS: TOLTERODINE TARTRATE LA 2 MG CAPCR PO SCH (20:09)
[2017-11-25] MEDS: MIRABEGRON ER 25 MG TAB PO SCH (20:09)
[2017-11-25] MEDS: ATORVASTATIN 40 MG TAB PO SCH (20:09)
[2017-11-25] MEDS: TAMSULOSIN HCL 0.4 MG CAP PO SCH (20:10)
[2017-11-25 23:21] VITALS: BP 129/76; PULSE 91; TEMP 37.1; O2SAT 95
[2017-11-25 23:30] VITALS: O2SAT 95
[2017-11-26 06:59] VITALS: BP 163/101; PULSE 90; TEMP 37; O2SAT 97
[2017-11-26] MEDS: AVODART~ORDER AWAITING ACTION SCH ×3 (07:02→15:48)
[2017-11-26] MEDS: ENOXAPARIN 40 MG/0.4 ML SYR SQ SCH (08:22)
[2017-11-26] MEDS: MOMETASONE FUROATE 14 PUFF/1 INHALER INH SCH (08:22)
--- NOTE | 2017-11-26 08:22 | Wound Progress Note: Inpatient ---
Wound Progress Note Date of Service Nov 26, 2017. Subjective Pt evaluation today including: conversation w/ patient, physical exam, chart review Objective Vital Signs Date Time Temp Pulse Resp B/P (MAP) Pulse Ox O2 Delivery O2 Flow Rate FiO2 11/26/17 07:30 Room Air 11/26/17 06:59 37.0 90 20 163/101 (121) 97 Room Air 11/25/17 23:30 95 Room Air 11/25/17 23:21 37.1 91 20 129/76 (93) 95 Room Air 11/25/17 16:00 Room Air 11/25/17 15:47 36.3 89 18 152/93 (112) 96 Room Air 11/25/17 08:24 97 148/86 (106) Assessment and Plan Nonhealing Venous Ulcers in the face of chronic venous insufficiency and PAD Cellulitis Right leg Confusion Full dictation to follow Patient uncooperative for bedside debridement Santyl placed on wounds Wound culture done Will re evaluate in 2 days for debridement, if still inpatient See in Clinic if Discharged
[2017-11-26] MEDS: METOPROLOL SUCC 50MG EXT REL TAB PO SCH (08:23)
[2017-11-26] MEDS: FERROUS SULFATE 325 MG TAB PO SCH (08:23)
[2017-11-26] MEDS: PANTOprazole SOD 40 MG TAB PO SCH (08:23)
[2017-11-26] MEDS: GABAPENTIN 300 MG CAP PO SCH ×2 (08:23→13:00)
[2017-11-26] MEDS: ALLOPURINOL 300 MG TAB PO SCH (08:23)
[2017-11-26] MEDS: ASPIRIN 81 MG ECTAB PO SCH (08:24)
[2017-11-26] MEDS ORDERED: COLLAGENASE OINT 30 GM TUBE EXT SCH (09:00)
[2017-11-26] MEDS ORDERED: VANCOMYCIN TROUGH ONE (09:30)
[2017-11-26] MEDS: CEFTRIAXONE SOD INJ 2,000 MG in DEXTROSE 5% 50ML 50 ML IV SCH (09:52)
[2017-11-26 10:48] VITALS: BP 106/70; PULSE 86
[2017-11-26 13:16] VITALS: BP 149/95; PULSE 94; O2SAT 98
[2017-11-26 14:57] VITALS: Ht 162.6 cm; Wt 84.5 kg
[2017-11-26 15:48] VITALS: BP 149/95; PULSE 94; TEMP 37; O2SAT 98
--- NOTE | 2017-11-26 16:01 | Progress Note ---
Medicine Progress Note Date & Time of Visit: Nov 26, 2017 at 15:56. Subjective seen resting in bed, comfortable states he feels fine overall denies leg pain no other symptoms states he is ready for discharge today Objective Last 8 Hrs Date Time Temp Pulse Resp B/P (MAP) Pulse Ox O2 Delivery O2 Flow Rate FiO2 11/26/17 15:48 37.0 94 20 98 Room Air 11/26/17 13:16 94 98 11/26/17 10:48 86 106/70 (82) Physical Exam: General- oriented x 3, not in distress, speaks in sentences with no effrot Eyes- anicteric Neck-no JVD Lungs- clear BS bilaterally, no rales/wheezes Heart- regular rhythm; no murmur, normal rate Abdomen- normal bowel sounds, soft, nontender Extremities- Right Lower leg: (+) erythema receding from demarcation line- erythema very mild now, 2 small ulcers- drying, mild edema Left Lower leg: no pretibial edema, no calf tenderness Neuro- Alert, oriented x 3; Decreased hearing Otherwise no gross focal deficits Skin- Warm & dry Laboratory Results: Date/Time Source Procedure Growth Status 11/26/17 07:55 Ulcer Leg Right Lower Gram Stain - Final Resulted 11/26/17 07:55 Ulcer Leg Right Lower Wound Culture Pending Resulted Assessment & Plan CELLULITIS RLE, MSSA Outpatient wound culture 11/06/17 grew MSSA. Presented with worsening swelling and erythema RLE. Blood cultures obtained negative Initially received IV doxycycline. Changed Rx to vancomycin and ceftriaxone because of fever and lack of clinical improvement. improving d/c Vanco, continue Ceftri IV ID recommends Cephalexin on discharge, anticipate d/c tomorrow with Home Health -- continue Cephalexin 500mg BID x 14 days ff up with [facility] on 11/28/17 at 830am SKIN ULCER RLE Possibly due to venous stasis. Wound Care Consulted: instructions provided Interventional Cardiology consulted- no further intervention at this time "Reviewed recent lower extremity arterial duplex. Patient has severe tibial disease but CHLOE consistent with only moderate arterial insufficiency and feel perfusion should be adequate for wound healing." RLE EDEMA Venous duplex lower extremity negative for DVT. CORONARY ARTERY DISEASE No anginal symptoms. Continue aspirin and metoprolol. CHRONIC DIASTOLIC CHF Compensated. AORTIC STENOSIS Followed by Cardiology. HYPERTENSION Continue metoprolol. PERIPHERAL VASCULAR DISEASE Interventional Cardiology consulted. COPD Stable. PSORIATIC ARTHRITIS Continue prednisone. VTE PROPHYLAXIS SQ enoxaparin. Ambulate. DISPOSITION d/c home ff up with PCP on 11/29. ff up with [facility] on 11/28. Current Inpatient Medications: Current Inpatient Medications Medications (Trade) Dose Ordered Sig/Alberto Route Start Time Stop Time Status Last Admin Dose Admin Metoprolol Succinate (Toprol Xl Tab) 50 mg QAM PO 11/23/17 09:00 12/23/17 08:59 11/26/17 08:23 50 MG Allopurinol (Zyloprim Tab) 300 mg QAM PO 11/22/17 09:00 12/22/17 08:59 11/26/17 08:23 300 MG Aspirin (Ecotrin Tab) 81 mg QAM PO 11/22/17 09:00 12/22/17 08:59 11/26/17 08:24 81 MG Atorvastatin Calcium (Lipitor Tab) 40 mg QPM PO 11/22/17 21:00 12/22/17 20:59 11/25/17 20:09 40 MG Gabapentin (Neurontin Cap) 300 mg TID PO 11/22/17 09:00 12/22/17 08:59 11/26/17 13:00 300 MG Mirabegron (Myrbetriq Er) 50 mg QPM PO 11/22/17 21:00 12/22/17 20:59 11/25/17 20:09 50 MG Mometasone Furoate (Asmanex 220MCG Inh) 1 puff BID INH 11/22/17 09:00 12/22/17 08:59 11/26/17 08:22 1 PUFF Pantoprazole Sodium (Protonix Tab) 40 mg QAM PO 11/22/17 09:00 12/22/17 08:59 11/26/17 08:23 40 MG Phenazopyridine HCl (Pyridium Tab) 200 mg TID PRN PO 11/22/17 04:00 12/22/17 03:59 Prednisone (PredniSONE TAB) 5 mg QPM PO 11/22/17 21:00 12/22/17 20:59 11/25/17 20:09 5 MG Tamsulosin HCl (Flomax Cap) 0.4 mg QPM PO 11/22/17 21:00 12/22/17 20:59 11/25/17 20:10 0.4 MG Tramadol HCl (Ultram Tab) 50 mg Q4H PRN PO 11/22/17 04:00 12/22/17 03:59 11/22/17 09:01 50 MG Miscellaneous Information (Order Awaiting Action) 1 ea QS N/A 11/22/17 08:00 12/22/17 07:59 Ferrous Sulfate (Feosol Tab) 325 mg BIDM PO 11/22/17 08:00 12/22/17 07:59 11/26/17 08:23 325 MG Hydromorphone HCl (Dilaudid Inj) 0.5 mg Q6H PRN IV 11/22/17 04:00 12/06/17 03:59 Prochlorperazine Edisylate 5 mg/ Syringe 5 ml @ 5 mls/min Q6H PRN IV 11/22/17 04:00 12/22/17 03:59 Enoxaparin Sodium (Lovenox Inj) 40 mg Q24H SQ 11/22/17 08:00 12/22/17 07:59 11/26/17 08:22 40 MG Acetaminophen (Tylenol Tab) 650 mg Q4H PRN PO 11/22/17 04:00 12/22/17 03:59 11/22/17 09:01 650 MG Ceftriaxone Sodium 2000 mg/ Dextrose 70 ml @ 100 mls/hr Q24H IV 11/23/17 09:00 12/03/17 08:59 11/26/17 09:52 100 MLS/HR Tolterodine Tartrate (Detrol LA Cap) 2 mg QPM PO 11/23/17 21:00 12/23/17 20:59 11/25/17 20:09 2 MG Collagenase (Santyl Oint) 1 appln DAILY EXT 11/26/17 09:00 12/26/17 08:59 11/26/17 10:03 1 APPLN
[2017-11-26] MEDS ORDERED: KFL500 PO (16:06)
--- NOTE | 2017-11-26 16:12 | Discharge Instructions ---
Discharge Instructions Date of Service Nov 26, 2017. Admission Reason for Admission: Cellulitis Discharge Discharge Diagnosis / Problem: RIGHT LEG WOUND, CELLULITIS Discharge Goals Goal(s): Diagnostic testing, Therapeutic intervention Activity Recommendations Activity Limitations: as noted below (RESUME ACTIVITY GRADUALLY TOLERATED.) Lifting Limitations: until after follow-up appointment Exercise/Sports Limitations: until after follow-up appointment Driving or Machine Use: NO DRIVING . Instructions / Follow-Up Instructions / Follow-Up PLEASE REFER TO YOUR NEW MEDICATION IN THE LIST AND FOLLOW INSTRUCTIONS CAREFULLY. WOUND CARE INSTRUCTIONS: RIGHT LOWER LEG- APPLY SANTYL NICKEL THICK, COVER WITH AN OPTIFOAM, CHANGE EVERY DAY AND NEEDED. CALL PRIMARY CARE PHYSICIAN, WOUND CARE CENTER OR RETURN TO THE ER IF WITH RECURRENCE OF SYMPTOMS, INCREASING WOUND SWELLING/REDNESS/PAIN/BLEEDING/DISCHARGE, FEVER/CHILLS, WEAKNESS, NAUSEA. FOLLOW UP WITH PRIMARY CARE PHYSICIAN DR. TUTTLE (ASSOCIATE OF DR. GIRALDO) AT THE [facility] ON WEDNESDAY NOVEMBER 29, 2017 AT 12:45PM. PLEASE FOLLOW UP WITH THE WOUND CLINIC ON Saturday11/28/17 AT 900AM. Current Hospital Diet Patient's current hospital diet: AHA Diet (Heart Healthy), Diabetes Type 2 Diet Discharge Diet Recommended Diet: AHA Diet (Heart Healthy), Diabetes Type 2 Diet Procedures Procedures Performed: XRAY OF THE LEG, ULTRASOUND OF THE LEG Pending Studies Studies pending at discharge: no Medical Emergencies . Who to Call and When: Medical Emergencies: If at any time you feel your situation is an emergency, please call 911 immediately. . Non-Emergent Contact Non-Emergency issues call your: Primary Care Provider, Specialist (WOUND CARE CENTER) Call Non-Emergent contact if: you have a fever, your pain is not controlled, your pain is worsening, your pain is unusual for you, wound has increased drainage, wound has increased redness, wound has increased pain, you have any medication questions . . "Provider Documentation" section prepared by Blake Silverman. .
[2017-11-26] MEDS ORDERED: SNTO30 EXT (16:17)
--- NOTE | 2017-11-26 16:17 | Discharge Summary ---
Discharge Summary Date of Service Nov 26, 2017. Discharge Summary Admission Date: Nov 22, 2017 at 03:24 Discharge Date: Nov 26, 2017 Principal Diagnosis: CELLULITIS Right Lower Extremity, MSSA Secondary Diagnoses/Problems: Please refer to hospital course below. Procedures: RIGHT TIBIA/FIBULA 2 VIEWS HISTORY: Right lower leg swelling. COMPARISON: None. FINDINGS: There is no fracture or dislocation. Advanced degenerative changes at the hindfoot. Vascular calcifications are noted. Plantar heel spur. Diffuse soft tissue swelling most notable within the distal lower leg. No areas of bony destruction to suggest osteomyelitis. No radiopaque foreign bodies. IMPRESSION: 1. No fracture or dislocation within the right lower leg. 2. Diffuse soft tissue swelling. 3. No evidence for osteomyelitis. R VENOUS DOPP LOWER EXT UNILAT HISTORY: 87 years-old Male eval for dvt acute pain and swelling of the right lower extremity COMPARISON: Duplex venous Doppler study 12/17/2016 TECHNIQUE: Multiple real-time sonographic images of the right lower extremity deep venous structures were obtained assessing grayscale appearance, color and spectral flow FINDINGS: Normal flow, compressibility, phasicity and augmentation of the right lower extremity deep venous structures. Mildly complex Amador's cyst measures 4.6 x 1.5 x 2.3 cm. IMPRESSION: No sonographic evidence of deep venous thrombosis. Consultations: Infectious Disease S[facility] Dr. Gomez Pending Studies/Follow-Up: Please refer to hospital course below. Medication Reconciliation New Medications: Cephalexin Monohydrate (Cephalexin) 500 Mg Cap 1 CAP PO BID for 14 Days, #28 CAP 0 Refills Collagenase (Santyl) 250 Unit/Gm Oin 1 APPLN EXT DAILY for 14 Days, #1 TUBE 2 Refills Continued Medications: Allopurinol (Allopurinol) 300 Mg Tab 300 MG PO QAM Amlodipine Besylate (Norvasc) 2.5 Mg Tab 2.5 MG PO QAM Aspirin (Aspirin Ec) 81 Mg Tab 81 MG PO QAM Atorvastatin (Lipitor) 40 Mg Tab 40 MG PO QPM TAKE THIS MEDICATION ONCE DAILY WITH EVENING MEAL Diclofenac Sodium (Topical) (Diclofenac Sodium) 1 % Gel 2 GM TOP QID PRN for Pain Dutasteride (Dutasteride) 0.5 Mg Cap 0.5 MG PO DAILY TAKE THIS MEDICATION ONCE DAILY WITH EVENING MEAL Ferrous Sulfate (Kp Ferrous Sulfate) 325 Mg Tab 325 MG PO BID for 30 Days, #60 TAB 3 Refills Gabapentin (Gabapentin) 300 Mg Cap 300-600 MG PO TID Home O2 Therapy (Oxygen) Gas 2 LITERS NA HS USE DURING ALL PERIODS OF SLEEP Ipratropium-Albuterol (Combivent Respimat) 1 Aer Aer 1 PUFF INH QID PRN for Shortness of Breath Magnesium Oxide (Mag-Ox) 400 Mg Tab 400 MG PO BID, TAB Melatonin (Melatonin) 1 Mg Cap 1 MG PO HS Metoprolol Succinate (Toprol Xl) 50 Mg Tabcr 50 MG PO QAM, #30 TAB Mirabegron (Myrbetriq Er) 50 Mg Tab 50 MG PO QPM Mometasone Furoate (Inhalation (Asmanex Twisthaler 120 Me) 220 Mcg/Inh Aer 2 PUFFS INH BID RINSE MOUTH AFTER USE Pantoprazole (Protonix) 40 Mg Tab 40 MG PO QAM, #30 TAB Phenazopyridine HCl (Pyridium) 200 Mg Tab 200 MG PO TID PRN for Pain with Urination, TAB TAKE THIS MEDICATION AFTER MEALS FOR PAIN WITH URINATION Prednisone (Prednisone) 5 Mg Tab 5 MG PO QPM Prednisone (Prednisone) 10 Mg Tab 10 MG PO DIRECTED PRN for RESCUE KIT, TAB RESCUE KIT: 5 TABS X 2 DAYS, 4 TABS X 2 DAYS, 3 TABS X 2 DAYS, 2 TABS X 2 DAYS, 1 TAB X 2 DAYS. Tamsulosin HCl (Tamsulosin HCl) 0.4 Mg Cap 0.4 MG PO QPM Tolterodine Tartrate (Tolterodine Tartrate ER) 4 Mg Cap 2 MG PO QPM Tramadol HCl (Tramadol HCl) 50 Mg Tab 50-100 MG PO Q6H PRN for Pain Triamcinolone Acet (Triamcinolone Acetonide) 45 Appln/15 Gm Cr 1 APPLN TOP BID PRN for AFFECTED AREAS for 30 Days, #15 GM 1 Refill Admission Information HPI (per Admitting provider): DATE OF ADMISSION: 11/22/2017 PRIMARY CARE PHYSICIAN: Dr. Albarran. CHIEF COMPLAINT: Right leg pain and swelling. HISTORY OF PRESENT ILLNESS: History obtained from patient, daughter, and records. Medical history significant for chronic diastolic heart failure, EF of 55%-59% in 2D echo in February 2017, hypertension, Nonocclusive CAD as per records, aortic stenosis, COPD, past tobacco abuse, PVD as per records, chronic anemia (baseline hemoglobin of 11-13), chronic right lower extremity venous ulcers, orthostatic hypotension as per records, psoriatic arthritis on chronic steroid therapy, BPH. Recent confinement last in 04/2017 for acute renal failure and dehydration. Patient seen at wound care center last in 09/2017 for bilateral lower extremity wounds. Patient last seen at wound care center last week for follow-up for venous ulcer , right lower extremity which he has had for about a month according to the patient. Increase in total surface area noted covered with slough, venous ulcerations, debridement done as per outpatient note. Patient had an outpatient lower extremity duplex done about 3 weeks ago upon the request of Wound care center provider which showed abnormal ABIs, right moderate disease, left severe disease. Right lower extremity showed tibial disease with occlusion of the peroneal artery, occluded PDA collaterals, Very diminished monosyllable in the ZIGGY with collaterals in the distal ZIGGY. Left lower extremity with severe tibial vessel disease with very diminished amount of flow. Distal ZIGGY appears to fill by collaterals. 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 Patient denies claudication symptoms. Patient daughter claims patient downplays symptoms due to fears of senior care placement. The last few days, patient's daughter noted RLE wound to be a little bigger. R leg more swollen than usual. No fever, no chills. Patient says right lower extremity pain a little worse than usual. Patient received Zosyn at the ER. Physical Exam (per Admitting): VITAL SIGNS: Blood pressure was noted to be 140/102, later 98, RR 18, temperature 37.2, saturations 98% on room air. GENERAL: Noted to be slightly uncomfortable, slightly hard of hearing, no respiratory distress. SKIN: Pallor and warm. HEENT: Alopecia. Pale palpebral conjunctivae. No ptosis. Dry oral mucosa. NECK: Short, supple. CHEST: Decreased effort. No tenderness. HEART: regular rate and rhythm. systolic murmur, ABDOMEN: Some distention, non-tender. EXTREMITIES: Ulcer with surface eschar noted to be on the right leg with erythema and surrounding induration, minimal RLE tenderness. NEUROLOGIC: Coherent, no facial asymmetry, no gross focality except for mild hearing impairment. Hospital Course CELLULITIS RLE, MSSA Outpatient wound culture 11/06/17 grew MSSA. Presented with worsening swelling and erythema RLE. Blood cultures obtained negative Initially received IV doxycycline. Changed Rx to vancomycin and ceftriaxone because of fever and lack of clinical improvement. improved significantly ID consulted, Dr. Gomez, recommends: -- continue Cephalexin 500mg BID x 14 days ff up with Wound Care Center on 11/28/17 at 830am SKIN ULCER RLE Possibly due to venous stasis. Wound Care Consulted: instructions provided Interventional Cardiology consulted- no further intervention at this time "Reviewed recent lower extremity arterial duplex. Patient has severe tibial disease but CHLOE consistent with only moderate arterial insufficiency and feel perfusion should be adequate for wound healing." RLE EDEMA Venous duplex lower extremity negative for DVT. CORONARY ARTERY DISEASE No anginal symptoms. Continue aspirin and metoprolol. CHRONIC DIASTOLIC CHF Compensated. AORTIC STENOSIS Followed by Cardiology. HYPERTENSION Continue metoprolol. PERIPHERAL VASCULAR DISEASE Interventional Cardiology consulted. COPD Stable. PSORIATIC ARTHRITIS Continue prednisone. DISPOSITION d/c home ff up with PCP on 11/29. ff up with Wound Care Ctr on 11/28. Total time spent on discharge = This includes examination of the patient, discharge planning, medication reconciliation, and communication with other providers. Discharge Instructions Discharge Instructions Date of Service Nov 26, 2017. Admission Reason for Admission: Cellulitis Discharge Discharge Diagnosis / Problem: RIGHT LEG WOUND, CELLULITIS Discharge Goals Goal(s): Diagnostic testing, Therapeutic intervention Activity Recommendations Activity Limitations: as noted below (RESUME ACTIVITY GRADUALLY TOLERATED.) Lifting Limitations: until after follow-up appointment Exercise/Sports Limitations: until after follow-up appointment Driving or Machine Use: NO DRIVING . Instructions / Follow-Up Instructions / Follow-Up PLEASE REFER TO YOUR NEW MEDICATION IN THE LIST AND FOLLOW INSTRUCTIONS CAREFULLY. WOUND CARE INSTRUCTIONS: RIGHT LOWER LEG- APPLY SANTYL NICKEL THICK, COVER WITH AN OPTIFOAM, CHANGE EVERY DAY AND NEEDED. CALL PRIMARY CARE PHYSICIAN, WOUND CARE CENTER OR RETURN TO THE ER IF WITH RECURRENCE OF SYMPTOMS, INCREASING WOUND SWELLING/REDNESS/PAIN/BLEEDING/DISCHARGE, FEVER/CHILLS, WEAKNESS, NAUSEA. FOLLOW UP WITH PRIMARY CARE PHYSICIAN DR. TUTTLE (ASSOCIATE OF DR. ALBARRAN) AT THE [facility] ON WEDNESDAY NOVEMBER 29, 2017 AT 12:45PM. PLEASE FOLLOW UP WITH THE WOUND CLINIC ON Saturday11/28/17 AT 900AM. Current Hospital Diet Patient's current hospital diet: AHA Diet (Heart Healthy), Diabetes Type 2 Diet Discharge Diet Recommended Diet: AHA Diet (Heart Healthy), Diabetes Type 2 Diet Procedures Procedures Performed: XRAY OF THE LEG, ULTRASOUND OF THE LEG Pending Studies Studies pending at discharge: no Medical Emergencies . Who to Call and When: Medical Emergencies: If at any time you feel your situation is an emergency, please call 911 immediately. . Non-Emergent Contact Non-Emergency issues call your: Primary Care Provider, Specialist (WOUND CARE CENTER) Call Non-Emergent contact if: you have a fever, your pain is not controlled, your pain is worsening, your pain is unusual for you, wound has increased drainage, wound has increased redness, wound has increased pain, you have any medication questions . . "Provider Documentation" section prepared by Blake Silverman. .
--- NOTE | 2017-11-26 20:56 | Wound Consultation: Inpatient ---
Wound Consultation Date of Consultation: Nov 26, 2017. Attending Physician: Blake Silverman MD Reason for Consultation: Venous Stasis Ulcers Right Lower Extremity with Secondary Cellulitis History of Present Illness Patient currently being treated at the Wound Center, since 10/18/17, for management of Venous Ulcers bilateral lower extremities in the face of Chronic Venous Insufficiency and PAD. Right leg's wounds were noted to have deteriorated on the 11/06 visit and a Wound Culture grew out MSSA. Placed on Keflex 500 tid. Outpatient Arterial Ultrasound showed severe tibial disease and patient is scheduled to see as an outpatient . Patient presented to ED on 11/22/17 with evidence of worsening cellulitis of the Right Lower Extremity. Admitted. Initially treated with IV Doxycycline. Changed to IV Vancomycin and Ceftriaxone. Currently on IV Ceftriaxone alone, with improvement. Seen by Wound Care Nurse on 11/22 and wound dressed with Kalostat and Tegaderm . Today patient is restless and not very cooperative. Denying pain or continued fever. Further hx unobtainable as patient appears confused and is an unreliable historian. 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 Surgical Problems: (1) History of back surgery Family History FH: Parkinson's disease FATHER FH: cancer MOTHER (Colon) SISTER (Breast, LungCA) Kidney disease Kidney stones Social History Smoking Status: Never Smoker Drug Use: none Marital Status: Housing Status: lives alone Occupation Status: retired Allergies Coded Allergies: Morphine (Verified Allergy, Unknown, "out of it for days", 11/21/17) Colchicine (Verified Adverse Reaction, Mild, GI upset, 11/21/17) Sampson (Verified Adverse Reaction, Unknown, STOMACH ACHE FROM CITRUS JUICE , 11/22/17) Tomato (Verified Adverse Reaction, Unknown, HEADACHE FROM TOMATO JUICE, 11/22/17) Home Medications Scheduled Allopurinol (Allopurinol), 300 MG PO QAM Amlodipine Besylate (Norvasc), 2.5 MG PO QAM Aspirin (Aspirin Ec), 81 MG PO QAM Atorvastatin (Lipitor), 40 MG PO QPM Cephalexin Monohydrate (Cephalexin), 1 CAP PO BID Collagenase (Santyl), 1 APPLN EXT DAILY Dutasteride (Dutasteride), 0.5 MG PO DAILY Ferrous Sulfate (Kp Ferrous Sulfate), 325 MG PO BID Gabapentin (Gabapentin), 300-600 MG PO TID Home O2 Therapy (Oxygen), 2 LITERS NA HS Magnesium Oxide (Mag-Ox), 400 MG PO BID Melatonin (Melatonin), 1 MG PO HS Metoprolol Succinate (Toprol Xl), 50 MG PO QAM Mirabegron (Myrbetriq Er), 50 MG PO QPM Mometasone Furoate (Inhalation (Asmanex Twisthaler 120 Me), 2 PUFFS INH BID Pantoprazole (Protonix), 40 MG PO QAM Prednisone (Prednisone), 5 MG PO QPM Tamsulosin HCl (Tamsulosin HCl), 0.4 MG PO QPM Tolterodine Tartrate (Tolterodine Tartrate ER), 2 MG PO QPM Scheduled PRN Diclofenac Sodium (Topical) (Diclofenac Sodium), 2 GM TOP QID PRN for Pain Ipratropium-Albuterol (Combivent Respimat), 1 PUFF INH QID PRN for Shortness of Breath Phenazopyridine HCl (Pyridium), 200 MG PO TID PRN for Pain with Urination Prednisone (Prednisone), 10 MG PO DIRECTED PRN for RESCUE KIT Tramadol HCl (Tramadol HCl), 50-100 MG PO Q6H PRN for Pain Triamcinolone Acet (Triamcinolone Acetonide), 1 APPLN TOP BID PRN for AFFECTED AREAS Review of Systems See HPI - Patient confused, 10 systems reviewed- denies other acute complaints but considered an unreliable historian Physical Exam Date Time Temp Pulse Resp B/P (MAP) Pulse Ox O2 Delivery O2 Flow Rate FiO2 11/26/17 15:48 37.0 94 20 98 Room Air 11/26/17 13:16 94 98 11/26/17 10:48 86 106/70 (82) 11/26/17 07:30 Room Air 11/26/17 06:59 37.0 90 20 163/101 (121) 97 Room Air 11/25/17 23:30 95 Room Air 11/25/17 23:21 37.1 91 20 129/76 (93) 95 Room Air Head: normocephalic, atraumatic Neck: supple Respiratory/Chest: lungs clear Cardiovascular: regular rate, rhythm, + systolic murmur Abdomen/GI: non tender, soft Back: normal inspection Extremities/Musculoskelatal: no calf tenderness, + pertinent finding (Right Lower extremity with erythema . 2 wounds on anterior tibial area- clustered measuring 8.3X0.2cm, smaller lateral wouond measures 1.9 X3.2 cm. Both wounds are covered with dry eschar centrally and loosening eschar peripherally. No drainage, No odor, periwound area cellulitic but receding from marked area. Distal pulses diminished.) Neurologic/Psych: + pertinent finding (confused without focal deficits) Skin: + pertinent finding (cellulitic changes right lower extremity/ venous ulcers X3 as noted above) Laboratory Results 11/25 cbc- wbc 6.21, Hgb 12.2, Hct 37.3; Na 138, Cl 104, K 3.9, CO2 28, Glucose 114, Ca 8.6 X ray Tibia/Fibula:No evidence of fracture of osteomyelitis Venous US RLE- neg for DVT Assessment & Plan Nonhealing Venous Ulcers in the face of chronic venous insufficiency and PAD Cellulitis Right leg Confusion PLAN: The Wounds did require debridement . Wound anesthetized with topical Xylocaine . Attempted debridement with a #5 curette. I was able to dbride one of the 3 wounds of eschar however, the patient was kicking both my Nurse and myself. Further debridement aborted. Santyl placed on all wounds and gauze dressing, to be changed daily. Wound Culture done. This represented a non excisional debridement of less than 20 sq. cm If still inpatient- Will re evaluate in 2 days for debridement. If discharged- Will see in Clinic for further care . Thank you for this consultation
== END 2017-11-26 17:37 | disposition home health service (06) | DRG 603 ==
LOC: C.EDB 21:26 → C.MS2W 11-22 03:24 → ENRESERV 11-22 03:48
PROVIDERS: ADMIT Internal Medicine; ATTEND Internal Medicine
PROC: 0HBKXZZ Excision of Right Lower Leg Skin, External Approach (ICD-10-PCS; principal; 2017-11-26)
DX: L03.115 Cellulitis of right lower limb (principal); I13.0 Hypertensive heart and chronic kidney disease with heart failure and stage 1 through stage 4 chronic kidney disease, or unspecified chronic kidney disease; I50.32 Chronic diastolic (congestive) heart failure; L97.219 Non-pressure chronic ulcer of right calf with unspecified severity; I87.2 Venous insufficiency (chronic) (peripheral); R60.0 Localized edema; N18.3 Chronic kidney disease, stage 3 (moderate); N40.0 Benign prostatic hyperplasia without lower urinary tract symptoms; J44.9 Chronic obstructive pulmonary disease, unspecified; E78.5 Hyperlipidemia, unspecified; R73.9 Hyperglycemia, unspecified; L40.50 Arthropathic psoriasis, unspecified; B95.61 Methicillin susceptible Staphylococcus aureus infection as the cause of diseases classified elsewhere; I25.10 Atherosclerotic heart disease of native coronary artery without angina pectoris; R41.0 Disorientation, unspecified; I73.9 Peripheral vascular disease, unspecified; T38.0X5A Adverse effect of glucocorticoids and synthetic analogues, initial encounter; Z79.52 Long term (current) use of systemic steroids; Z79.82 Long term (current) use of aspirin; Z79.899 Other long term (current) drug therapy; Z88.5 Allergy status to narcotic agent

== ENCOUNTER 2018-05-30 12:32 | Inpatient (IN) ==
[2018-05-30 13:19] LABS: Basophils # (auto) 0.03 K/uL (0-0.2); Basophils % (auto) 0.4 %; Eosinophils # (auto) 0.08 K/uL (0-0.5); Hematocrit (blood only) 44.2 % (42-52); Hemoglobin 14.5 g/dL (14.0-18.0); Immature Granulocytes # (auto) 0.02 K/uL (0.00-0.02); Immature Granulocytes % (auto) 0.2 %; Lymphocytes # (auto) 1.26 K/uL (1.2-3.4); Lymphocytes % (auto) 15.7 %; Mean Corpuscular Hgb Conc 32.8 g/dL (32-36); Mean Corpuscular Volume 86.8 fL (80-100); Mean Platelet Volume 9.9 fL (7.4-10.4); Monocytes # (auto) 0.66 K/uL (0.11-0.59); Monocytes % (auto) 8.2 %; Neutrophils % (auto) 74.5 %; Platelet Count 219 K/uL (130-400); RDW Coefficient of Variation 14.1 % (11.5-14.5); RDW Standard Deviation 44.8 fL (36.4-46.3); Red Blood Count 5.09 M/uL (4.7-6.1); White Blood Count 8.05 K/uL (4.8-10.8)
[2018-05-30] MEDS ORDERED: SODIUM CHLORIDE 0.9% 1000ML 500 ML IV ONE (13:19)
[2018-05-30] MEDS ORDERED: SODIUM CHLORIDE 0.9% 1000ML 1,000 ML IV STA (13:19)
[2018-05-30 13:47] LABS: Albumin Level 3.4 gm/dl (3.4-5.0); BUN Creatinine Ratio 11.5 (10-20); Calcium 9.8 mg/dl (8.5-10.1); Creatinine Clr Calc Pharmacy 33.6 ml/min; Est GFR (Non-African American) 36.2; Potassium 3.5 mmol/L (3.5-5.1)
[2018-05-30 13:49] LABS: Albumin Globulin Ratio 0.8 (0.9-2); Bilirubin,Total 0.9 mg/dl (0.2-1); Globulin 4.4 gm/dl (2.5-4.0); Total Protein 7.8 gm/dl (6.4-8.2)
--- NOTE | 2018-05-30 14:15 | CT Scan Report ---
ABDOMEN AND PELVIS CT WITHOUT CONTRAST CT DOSE: 1098.04 mGycm HISTORY: Acute upper abdominal pain with weight loss and anemia upper abd pain, weight loss, anemia TECHNIQUE: Multiaxial CT images of the abdomen and pelvis were performed without contrast. A dose lo wering technique was utilized adhering to the principles of ALARA. COMPARISON STUDY: Chest CT 11/11/2008, renal ultrasound 02/21/2014, lumbar spine radiographs 12/17/2016. FINDINGS: Calcified pleural plaques with calcified granulomata noted about the lung bases. Bibasilar linear sub segmental pleural based consolidative and groundglass densities suggest atelectasis/scarring. There i s no pneumatosis or pneumoperitoneum identified. The imaged inferior cardiac chambers are unremarkabl e. Coronary arterial and aortic annular calcifications are noted. Trace pericardial effusion. Mild hepatic steatosis. Indeterminate ill-defined mildly hypodense lesion about the subserosal inferi or right hepatic lobe measures 1.3 cm. Suggested cyst of the hepatic dome measures 1.2 cm. Scattered calcified granulomata noted about the spleen. Moderate generalized pancreatic atrophy. The adrenal gl ands appear to be unremarkable. Cholelithiasis without CT evidence of acute cholecystitis. Nonspecific bilateral perinephric stranding. Punctate and 4 mm nonobstructing calculi noted about the inferior pole left kidney. 2.2 cm cyst of the inferior pole left kidney is also noted. Moderate atro phy with multifocal cortical scarring about the right kidney. 7 mm nonobstructing calculus of the inf erior pole right kidney. There is a mildly hyperdense ovoid circumscribed 1.1 cm lesion noted about t he inferior pole right kidney with 2.4 x 1.8 cm mildly hyperdense lesion of the superior pole right k idney also noted. Right renal cysts measure up to 4.4 cm. Renal vascular calcifications are noted wit hout ureteral calculi or obstructive uropathy. Partial distention of the urinary bladder with moderat e circumferential wall thickening. Prostamegaly. Extensive calcification about the abdominal aorta wi th mild fusiform ectasia measuring 2.9 x 2.5 cm about the infrarenal segment. No adenopathy. Large hiatal hernia with majority of the stomach and the thoracic cavity. The gastroesophageal juncti on is outside the [id number]. Hiatal hernia contains a portion of the transverse colon as well. No small bowel obstruction. Colonic diverticulosis without acute diverticulitis. Normal appendix. No de finite bowel wall thickening. Small fat filled periumbilical hernia, diastases 1.2 cm. Partially imag ed lipoma about the left rectus femoris musculature measures up to 4.2 x 1.9 cm. Sclerotic foci about the right suprapubic ramus suggest bone islands. Laminectomy changes with posterior interbody anne-marie an d screw fusion at L4-S1. Remote compression deformity about L5 with unchanged anterolisthesis L4 on L 5 and L5 on S1. The right L4 pedicle screw extends into the L3-L4 disc space and demonstrates mild rodriguez rrounding lucency. IMPRESSION: 1. Large hiatal hernia contains the majority of the stomach and a portion of the transverse colon. No evidence of gastric outlet obstruction. 2. No bowel obstruction or focal bowel wall thickening. 3. Colonic diverticulosis without acute diverticulitis. 4. Prostamegaly with circumferential wall thickening of the bladder suggestive of chronic urinary mitul dder outlet obstruction and/or cystitis. Correlate with urinalysis. 5. Nonobstructing bilateral nephrolithiasis. 6. Moderate right renal atrophy with multifocal cortical scarring. 7. 2.5 cm superior pole and 1.1 cm inferior pole mildly hyperdense lesions about the right kidney are indeterminate. Proteinaceous or hemorrhagic cysts on the primary differential considerations with re nal neoplasm considered less likely. Correlation with renal ultrasound recommended. 8. Cholelithiasis. 9. Laminectomy with posterior interbody anne-marie and screw fusion at L4-S1. The right L4 pedicle screw ext ends into the L3-L4 disc space and demonstrates circumferential lucency suggestive of loosening. 10. Additional findings as above. Electronically signed by: Steven Carlos M.D. 05/30/2018 2:14 PM
[2018-05-30] MEDS ORDERED: XYLOCAINE 1%/SOD BICARB 20 ML VIAL INFIL STA (15:56)
--- NOTE | 2018-05-30 16:04 | Emergency Department Note ---
Entered by Darline Tomas acting as a scribe for Micah Schwartz MD ED Provider Note CHIEF COMPLAINT: Nausea HISTORY OF PRESENT ILLNESS: The patient is an 87 year old male who presents to the Emergency Room with complaints of nausea over the last week. The patient states that he has had diarrhea for over a week but states that it was not dark, black, or bloody. He states that he took Imodium and Tums for his pain. He reports feeling very weak and states that he does not have any energy. Per family, the patient is pale compared to how he normally is. The patient also reports having a bump on the back of his neck that is painful. The patient states that he is not aware of this bump draining. He also reports having a bump on his head. Pt denies LOC, headache, fevers, chills, diaphoresis, visual changes, chest pain , breathing difficulties, vomiting, back pain, melena, hematochezia, urinary symptoms, numbness, lymphadenopathy, rash, or other complaints. Review of notes show that the patient was referred by Dr. Albarran as the patient had a 22 pound weight loss in a month, and has been dehydrated and pale. Notes show that the patient has not been eating or drinking well and has had upper abdominal pain. Notes also report a concern for anemia and kidney function. The patient's blood pressure in the office was 97/70. REVIEW OF SYSTEMS: See HPI for pertinent positives and negatives. A total of ten systems were reviewed and were otherwise negative. PMHx/PSHx: Gout, COPD, CKD, BPH, Atrial Flutter SOCIAL HISTORY: Patient lives at home. PHYSICAL EXAM: GENERAL: Awake, alert, well-appearing, in no distress, hard of hearing. HENT: Normocephalic, atraumatic. Oropharynx unremarkable. EYES: Normal conjunctiva. Sclera non-icteric. NECK: Inspection normal. Non-tender. Supple. No nuchal rigidity. FROM. No masses. RESPIRATORY: Clear to auscultation. No wheezes. No rales. Normal respiratory effort. CARDIAC: Borderline tachycardic rate. Normal rhythm. No murmurs. No rubs. Extremities warm and well perfused. Pulses equal. No JVD. GI: Soft, non-distended. No tenderness to palpation. No rebound or guarding. No masses. RECTAL: Deferred. MUSCULOSKELETAL: Atraumatic. Chest examination reveals no tenderness. The back is symmetrical on inspection without obvious abnormality. There is no CVA tenderness to palpation. No joint edema. LOWER EXTREMITIES: Calves are equal size bilaterally and non-tender. No edema. No discoloration. NEURO: Normal sensorium. No sensory or motor deficits noted. SKIN: No rash or jaundice noted. Somewhat pale. EMERGENCY DEPARTMENT COURSE: 1316: Past medical records reviewed. The patient was evaluated in room C7, and a complete history and physical examination were performed. 1440: I updated the patient who verbalized agreement and understanding of the treatment plan. 1445: I discussed the patient's case with Diane Khan who will evaluate the patient for further management with Dr. De La Cruz. MEDICAL DECISION MAKING: Prior records/ancillary studies reviewed and summarized above. Nursing notes reviewed and agree them. Additional history obtained from family. The patient's history was concerning for weakness. Differential diagnosis: Etiologies such as metabolic, infection, hypo/hyperglycemia, electrolyte abnormalities, cardiac sources, intracerebral event, toxicologic, neurologic, as well as others were entertained. Physical examination: As above. ER treatment provided: IV Lock Saline hydration On reassessment the patient felt better. Diagnostics interpretation by me: ECG: No acute ischemia. Tachycardia. The labs revealed an unremarkable CBC. The patient likely has hemoconcentration. The chemistry panel does reveal acute kidney injury. Imaging studies: CT scan of the abdomen pelvis reveals no evidence of obstruction. The patient has a very large hiatal hernia which includes part of the stomach as well as his transverse colon. The patient has had weight loss. He is not eating or drinking well. He has a significant hiatal hernia. The patient has MAXI. He has a small cyst on the left neck. Further management in the hospital will be necessary. Consultation: A consultation was placed with the hospitalist. The case was discussed and diagnostics were reviewed. The patient was evaluated in the ER for further treatment. IMPRESSION: Dehydration, MAXI PLAN: Admitted The scribe's documentation has been prepared under my direction and personally reviewed by me in its entirety. I confirm that the note above accurately reflects all work, treatment, procedures, and medical decision making performed by me. Impression & Plan Dehydration, MAXI (acute kidney injury) Past Med/Surg History Social History Feels Safe at Home: Yes Smoking Status: Former smoker Preferred Language: Indonesian Results & Data Vital Signs Vital Signs - 24 hr 05/30/18 12:39 05/30/18 14:00 Temperature 36.3 C L Temperature Source Oral Sepsis Recent Fever Within 48 Hours No Sepsis New/Unexplained Change in Mental Status No Sepsis Action Taken by Nursing No Action Required Pulse Rate 102 H Pulse Rate [Apical] 103 H Pulse Rhythm Regular Pulse Strength Normal Respiratory Rate 20 18 Respiratory Effort / Characteristics Non-Labored Respiratory Depth Normal Respiratory Pattern Regular Blood Pressure 142/97 H Blood Pressure [Left Arm] 163/111 H Blood Pressure Mean 112 Blood Pressure Mean [Left Arm] 128 Blood Pressure Position Sitting Pulse Oximetry 97 93 Oxygen Delivery Method Room Air Room Air Home Medications Current Medication List: was personally reviewed by me Laboratory Data Attestation: I reviewed the patient's lab results. Result diagrams: 05/30/18 13:05 05/30/18 13:05 Lab Results 05/30/18 05/30/18 Range/Units 13:05 13:05 WBC 8.05 (4.8-10.8) K/uL RBC 5.09 (4.7-6.1) M/uL Hgb 14.5 (14.0-18.0) g/dL Hct 44.2 (42-52) % MCV 86.8 (80-100) fL MCH 28.5 (25-34) pg MCHC 32.8 (32-36) g/dL RDW Std Deviation 44.8 (36.4-46.3) fL RDW Coeff of Morris 14.1 (11.5-14.5) % Plt Count 219 (130-400) K/uL MPV 9.9 (7.4-10.4) fL Immature Gran % (Auto) 0.2 % Neut % (Auto) 74.5 % Lymph % (Auto) 15.7 % Smith % (Auto) 8.2 % Eos % (Auto) 1.0 % Baso % (Auto) 0.4 % Immature Gran # (Auto) 0.02 (0.00-0.02) K/uL Neut # (Auto) 6.00 (1.4-6.5) K/uL Lymph # (Auto) 1.26 (1.2-3.4) K/uL Smith # (Auto) 0.66 H (0.11-0.59) K/uL Eos # (Auto) 0.08 (0-0.5) K/uL Baso # (Auto) 0.03 (0-0.2) K/uL Sodium 138 (136-145) mmol/L Potassium 3.5 (3.5-5.1) mmol/L Chloride 102 (98-107) mmol/L Carbon Dioxide 32 (21-32) mmol/L Anion Gap 4.0 (3-11) BUN 19 H (7-18) mg/dl Creatinine 1.68 H (0.6-1.4) mg/dl Est Cr Clr Drug Dosing 33.6 ml/min Est GFR ( Amer) 42.0 Est GFR (Non-Af Amer) 36.2 BUN/Creatinine Ratio 11.5 (10-20) Glucose 113 H (70-99) mg/dl Calcium 9.8 (8.5-10.1) mg/dl Total Bilirubin 0.9 (0.2-1) mg/dl AST 24 (15-37) U/L ALT 26 (12-78) U/L Alkaline Phosphatase 123 H (45-117) U/L Total Protein 7.8 (6.4-8.2) gm/dl Albumin 3.4 (3.4-5.0) gm/dl Globulin 4.4 H (2.5-4.0) gm/dl Albumin/Globulin Ratio 0.8 L (0.9-2) Lipase 100 (73-393) U/L Administered Medications Discontinued Medications Sodium Chloride (Nss 1000ml) 500 mls @ 999 mls/hr IV .Q31M ONE Stop: 05/30/18 13:49 Last Admin: 05/30/18 13:25 Dose: 999 mls/hr Imaging Data Radiologist's Impression: Radiology results as stated below per my review and the radiologist's interpretation: ABDOMEN AND PELVIS CT WITHOUT CONTRAST CT DOSE: 1098.04 mGycm HISTORY: Acute upper abdominal pain with weight loss and anemia upper abd pain , weight loss, anemia TECHNIQUE: Multiaxial CT images of the abdomen and pelvis were performed without contrast. A dose lowering technique was utilized adhering to the principles of MARK. COMPARISON STUDY: Chest CT 11/11/2008, renal ultrasound 02/21/2014, lumbar spine radiographs 12/17/2016. FINDINGS: Calcified pleural plaques with calcified granulomata noted about the lung bases. Bibasilar linear subsegmental pleural based consolidative and groundglass densities suggest atelectasis/scarring. There is no pneumatosis or pneumoperitoneum identified. The imaged inferior cardiac chambers are unremarkable. Coronary arterial and aortic annular calcifications are noted. Trace pericardial effusion. Mild hepatic steatosis. Indeterminate ill-defined mildly hypodense lesion about the subserosal inferior right hepatic lobe measures 1.3 cm. Suggested cyst of the hepatic dome measures 1.2 cm. Scattered calcified granulomata noted about the spleen. Moderate generalized pancreatic atrophy. The adrenal glands appear to be unremarkable. Cholelithiasis without CT evidence of acute cholecystitis. Nonspecific bilateral perinephric stranding. Punctate and 4 mm nonobstructing calculi noted about the inferior pole left kidney. 2.2 cm cyst of the inferior pole left kidney is also noted. Moderate atrophy with multifocal cortical scarring about the right kidney. 7 mm nonobstructing calculus of the inferior pole right kidney. There is a mildly hyperdense ovoid circumscribed 1.1 cm lesion noted about the inferior pole right kidney with 2.4 x 1.8 cm mildly hyperdense lesion of the superior pole right kidney also noted. Right renal cysts measure up to 4.4 cm. Renal vascular calcifications are noted without ureteral calculi or obstructive uropathy. Partial distention of the urinary bladder with moderate circumferential wall thickening. Prostamegaly. Extensive calcification about the abdominal aorta with mild fusiform ectasia measuring 2.9 x 2.5 cm about the infrarenal segment. No adenopathy. Large hiatal hernia with majority of the stomach and the thoracic cavity. The gastroesophageal junction is outside the [id number]. Hiatal hernia contains a portion of the transverse colon as well. No small bowel obstruction. Colonic diverticulosis without acute diverticulitis. Normal appendix. No definite bowel wall thickening. Small fat filled periumbilical hernia, diastases 1.2 cm. Partially imaged lipoma about the left rectus femoris musculature measures up to 4.2 x 1.9 cm. Sclerotic foci about the right suprapubic ramus suggest bone islands. Laminectomy changes with posterior interbody anne-marie and screw fusion at L4 -S1. Remote compression deformity about L5 with unchanged anterolisthesis L4 on L5 and L5 on S1. The right L4 pedicle screw extends into the L3-L4 disc space and demonstrates mild surrounding lucency. IMPRESSION: 1. Large hiatal hernia contains the majority of the stomach and a portion of the transverse colon. No evidence of gastric outlet obstruction. 2. No bowel obstruction or focal bowel wall thickening. 3. Colonic diverticulosis without acute diverticulitis. 4. Prostamegaly with circumferential wall thickening of the bladder suggestive of chronic urinary bladder outlet obstruction and/or cystitis. Correlate with urinalysis. 5. Nonobstructing bilateral nephrolithiasis. 6. Moderate right renal atrophy with multifocal cortical scarring. 7. 2.5 cm superior pole and 1.1 cm inferior pole mildly hyperdense lesions about the right kidney are indeterminate. Proteinaceous or hemorrhagic cysts on the primary differential considerations with renal neoplasm considered less likely. Correlation with renal ultrasound recommended. 8. Cholelithiasis. 9. Laminectomy with posterior interbody anne-marie and screw fusion at L4-S1. The right L4 pedicle screw extends into the L3-L4 disc space and demonstrates circumferential lucency suggestive of loosening. 10. Additional findings as above. Electronically signed by: Steven Carlos M.D. 05/30/2018 2:14 PM ECG Data Attestation: I personally reviewed and interpreted this ECG as follows: Indication: weakness Rate (beats per minute): 104 Rhythm: sinus tachycardia Findings: + LAFB; no PAC, no PVC, no ST depression, no ST elevation, no acute ischemic change and no ectopy Blood Pressure Blood Pressure Findings: Elevated blood pressure Blood Pressure Disposition: further management by hospitalist Discharge Plan Visit Data Chief Complaint: Abdominal Pain Stated Complaint: NECK PAIN-SEE SLIP Other Complaint: Neck Injury/Pain ED Provider: Micah Schwartz Discharge Problem: Dehydration, MAXI (acute kidney injury) Patient Disposition: Being Evaluated by Hospitalist Forms Stand Alone Forms: My [facility] [employer] Prescriptions Prescriptions: No Action allopurinol 300 mg tablet 300 mg PO QAM RF: 0 atorvastatin 40 mg tablet 40 mg PO QAM RF: 0 metoprolol succinate 50 mg tablet extended release 24 hr 50 mg PO QAM RF: 0 amlodipine 2.5 mg tablet 2.5 mg PO QAM RF: 0 clopidogrel 75 mg tablet 75 mg PO QAM RF: 0 aspirin 81 mg Tablet,Delayed Release (Dr/Ec) 81 mg PO QAM RF: 0 dutasteride 0.5 mg capsule 0.5 mg PO QAM RF: 0 tolterodine 4 mg capsule,extended release 24hr 4 mg PO DAILY RF: 0 pantoprazole 20 mg tablet,delayed release (DR/EC) 20 mg PO DAILY RF: 0 mirabegron [Myrbetriq] 50 mg tablet extended release 24 hr 50 mg PO DAILY RF: 0 tramadol 50 mg Tablet 50 - 100 mg PO Q6H PRN (Reason: Pain) RF: 0 gabapentin 300 mg capsule 300 mg PO TID RF: 0 Referrals Referrals: Patrick Albarran [Primary Care Provider] - The scribe's documentation has been prepared under my direction and personally reviewed by me in its entirety. I confirm that the note above accurately reflects all work, treatment, procedures, and medical decision making performed by me.
--- NOTE | 2018-05-30 16:21 | Emergency Department Note ---
ED Visit Note I was consulted by BIA Argueta for I&D of an abscess on the patient's left posterior neck before the patient gets admitted. I examined the patient. There is a fluctuant abscess on the left posterior aspect of the neck with no active drainage. There is surrounding erythema but no streaking. Verbal consent was obtained to perform the procedure. After saline and Betadine cleansing and 3 mL of 1% buffered lidocaine anesthesia, the abscess was incised with a number 11 scalpel blade. A very small amount of purulent material was released with more expressed by pressure. The abscess cavity was further probed with a needle combine driver and the deep pocket expressed. The abscess cavity was then copiously irrigated with sterile saline under pressure. The area was then packed with an extremely small amount of bacitracin soaked packing. The area was cleaned with sterile saline and dressed with bacitracin and a bulky bandage. The patient tolerated the procedure well. Packing should be removed tomorrow if it is not removed with dressing changes. Continue warm, moist compresses and may consider gentle massage to continue to aid in drainage, as there was not a significant amount of drainage during the procedure. Bandage with bacitracin and bandage.
--- NOTE | 2018-05-30 17:20 | History & Physical Report ---
Date of Service May 30, 2018 Assessment & Plan (1) Weight loss: (2) Hiatal hernia: -Admit to [facility] -Patient presenting by referral PCP for evaluation of hypotension, weight loss, pallor -In the ED, hemoglobin stable at 14.5 however likely some component of hemoconcentration due to dehydration, creatinine 1.6 (mildly elevated from baseline), and CT ABD/pelvis showing large hiatal hernia contains the majority of the stomach and a portion of the transverse colon -There is no evidence of obstruction or incarcerated hernia on CT, however patient should be evaluated by general surgery or possibly thoracic surgery for further treatment recommendations of large hiatal hernia. An extensive discussion was had with the patient regarding this, however he is declining to be seen by specialists while in the hospital and would like to follow-up with his outpatient primary care provider. -The large hernia is likely attributing to patient's symptoms however he also should be evaluated by GI for possible endoscopy -will provide supportive care with IVF and advance diet as tolerated -Likely discharge home tomorrow with close follow-up with PCP (3) Furuncle: -Noted behind left ear -Suri Mishra PA-C from the ED was consulted for I&D -Instructions: Packing should be removed tomorrow if it is not removed with dressing changes. Continue warm, moist compresses and may consider gentle massage to continue to aid in drainage, as there was not a significant amount of drainage during the procedure. Bandage with bacitracin and bandage. -No indication for antibiotics at this time (4) MAXI (acute kidney injury): (5) CKD (chronic kidney disease), stage III: -Baseline creatinine ~1.2 -Noted to be 1.6 today -Elevation likely prerenal secondary to poor p.o. intake -IVF, follow renal functions (6) Renal lesion: -Noted on CT ABD/pelvis -Checking renal US as follow-up (7) Hypertension: -BP elevated, likely secondary to recent medication noncompliance -Resume home doses of metoprolol and amlodipine, make adjustments as needed (8) COPD (chronic obstructive pulmonary disease): -No signs of acute exacerbation -Continue home inhalers (9) Dyslipidemia: -Continue statin (10) BPH (benign prostatic hypertrophy): -Continue dutasteride and tamsulosin (11) Aortic stenosis: (12) H/O diastolic dysfunction: -Severe aortic stenosis, being monitored as an outpatient for possible TAVR -Monitor volume status closely (13) Peripheral vascular disease: -Continue aspirin and Plavix (14) DVT prophylaxis: -SQ heparin History of Present Illness Chief Complaint: Poor appetite, weight loss Primary Care Provider: Patrick Albarran 87-year-old male who presents the ED by referral PCP for evaluation of weight loss and poor appetite. Patient reports he has noticed a decline in his overall health for the past several months, however reports over the past couple weeks she has had a very poor appetite. He notes a 20 pound weight loss for the past 2 months. He reports generalized weakness. He has had nausea but denies abdominal pain, vomiting, dark tarry stools, bright bleeding per rectum. He was having diarrhea and was tested as an outpatient for C. difficile which was negative on 05/12. Patient denies chest pain or shortness of breath. No lightheadedness, dizziness, diaphoresis, syncopal events. He has chronic lower extremity edema, right greater than left which is unchanged from baseline. There is a healed wound noted to the right anterior wayne with some surrounding pinkness, unchanged from baseline. He reports chronic urinary incontinence and urgency which is unchanged from baseline. Has a small raised, tender area behind the left ear which he reports developed a couple of days ago. He denies any drainage from the area. No fevers or chills. In the ED, creatinine is found to be 1.6 (baseline ~ 1.2). CT ABD/pelvis is showing large hiatal hernia contains the majority of the stomach and a portion of the transverse colon. Patient was given IVF. Allergies Allergy/AdvReac Type Severity Reaction Status Date / Time morphine Allergy Unknown "out of it Verified 05/30/18 14:54 for days" colchicine AdvReac Mild GI upset Verified 05/30/18 14:54 [place] [employer] AdvReac Unknown STOMACH Verified 05/30/18 14:54 ACHE FROM [facility] tomato AdvReac Unknown HEADACHE Verified 05/30/18 14:54 FROM [facility]UICE Home Medications Home Medications Medication Instructions Recorded Confirmed Type allopurinol 300 mg PO QAM 01/20/18 05/30/18 History amlodipine 2.5 mg PO QAM 01/20/18 05/30/18 History aspirin 81 mg PO QAM 01/20/18 05/30/18 History atorvastatin 40 mg PO QAM 01/20/18 05/30/18 History clopidogrel 75 mg PO QAM 01/20/18 05/30/18 History dutasteride 0.5 mg PO QAM 01/20/18 05/30/18 History gabapentin 300 mg PO TID 01/20/18 05/30/18 History metoprolol succinate 50 mg PO QAM 01/20/18 05/30/18 History mirabegron [Myrbetriq] 50 mg PO DAILY 01/20/18 05/30/18 History pantoprazole 20 mg PO DAILY 01/20/18 05/30/18 History tolterodine 4 mg PO DAILY 01/20/18 05/30/18 History tramadol 50 - 100 mg PO Q6H PRN 01/20/18 05/30/18 History ipratropium-albuterol [Combivent 1 puff INHALATION QID PRN 05/30/18 05/30/18 History Respimat] magnesium oxide 400 mg PO BID 05/30/18 05/30/18 History mometasone [Asmanex Twisthaler] 2 inh INHALATION BID 05/30/18 05/30/18 History tamsulosin 0.4 mg PO DAILY 05/30/18 05/30/18 History Past Med/Surg History Medical History Urinary incontinence (Chronic) COPD (chronic obstructive pulmonary disease) (Chronic) Hypertension (Chronic) Gout (Chronic) CKD (chronic kidney disease), stage III (Chronic) Osteoporosis (Chronic) Psoriatic arthritis (Chronic) Dyslipidemia (Chronic) Aortic stenosis (Chronic) "echo 02/2017 - severe " On 03/21/15 18:55 Angela Jaramillo wrote "moderate" Tobacco abuse (Resolved) H/O atrial flutter (Chronic) "occurred postoperatively in 01/2014, converted to sinus rhythm with IV diltiazem" Nocturnal hypoxemia (Chronic) History of duodenal ulcer (Chronic) H/O diastolic dysfunction (Chronic) "grade I per echo 02/2017" On 03/21/15 19:09 Angela Jaramillo wrote "grade I per echo 01/2014" BPH (benign prostatic hypertrophy) (Chronic) Volvulus of stomach (Resolved) Neuropathy (Chronic) Peripheral vascular disease (Chronic) s/p angioplasty of right posterior tibial artery Surgical History History of back surgery (Chronic) History of lithotripsy Family History Other Family history non-contributory Social History Current Living Situation: Family Current Living Situation Comment: son lives w/ pt Other Information That Helps Us Care for You: No Feels Safe at Home: Yes and No Is there a partner from a previous relationship who is making you feel unsafe now?: No Any Concerns about Your Family Situation : No Would You Like to Speak to Someone About Your Situation: No Safety Concerns: Feels Safe At This Time Smoking Status: Former smoker Smoking End Date: > 40 years ago Hx Alcohol Use: No Hx Substance Use: No Beliefs That Will Affect Care: None Preferred Language: Martiniquais Communication Ability Comment: robinson, no h/a; needs to be redirected often City Dispatch Supervisor Required: No Review of Systems ROS per HPI, all other systems reviewed and negative Physical Exam 2 Vital Signs (Past 24 Hours): Last Vital Signs Temp 36.3 C L 05/30/18 12:39 Pulse 108 H 05/30/18 16:01 Resp 18 05/30/18 14:00 BP 171/129 H 05/30/18 16:01 Pulse Ox 96 05/30/18 16:01 Constitutional: WD/WN, vitals as above Eyes: PERRL, conjunctivae normal, anicteric sclerae ENMT: Ears: no external ear abnormality Nose: + nasal mucous membrane abnormality (Mucous membranes dry); no external nose abnormality Respiratory: normal respiratory effort; no respiratory distress Auscultation: + diminished lung sounds Cardiovascular: Rate/Rhythm: regular rate and regular rhythm Vessels: normal peripheral pulses (Diminished pedal pulses) Extremities: + edema (+1 LLE, +2 RLE) Gastrointestinal (Abdomen): normal bowel sounds, soft, nontender, no hepatosplenomegaly Musculoskeletal: no cyanosis or clubbing, extremities motor strength 5/5 Skin: no rashes, warm and dry Dime sized raised, tender area noted behind the left ear -mild surrounding erythema, no drainage Healed wound noted to right anterior wayne, surrounding pinkness (chronic per patient) Neurologic: PERRL, EOMI, accommodation nl, no face palsy, no dysarthria Psychiatric: A+Ox3, euthymic affect Results & Data Laboratory Results Laboratory Last Values WBC 8.05 K/uL (4.8-10.8) 05/30/18 13:05 RBC 5.09 M/uL (4.7-6.1) 05/30/18 13:05 Hgb 14.5 g/dL (14.0-18.0) 05/30/18 13:05 Hct 44.2 % (42-52) 05/30/18 13:05 MCV 86.8 fL (80-100) 05/30/18 13:05 MCH 28.5 pg (25-34) 05/30/18 13:05 MCHC 32.8 g/dL (32-36) 05/30/18 13:05 RDW Std Deviation 44.8 fL (36.4-46.3) 05/30/18 13:05 RDW Coeff of Morris 14.1 % (11.5-14.5) 05/30/18 13:05 Plt Count 219 K/uL (130-400) 05/30/18 13:05 MPV 9.9 fL (7.4-10.4) 05/30/18 13:05 Immature Gran % (Auto) 0.2 % 05/30/18 13:05 Neut % (Auto) 74.5 % 05/30/18 13:05 Lymph % (Auto) 15.7 % 05/30/18 13:05 Wheeler % (Auto) 8.2 % 05/30/18 13:05 Eos % (Auto) 1.0 % 05/30/18 13:05 Baso % (Auto) 0.4 % 05/30/18 13:05 Immature Gran # (Auto) 0.02 K/uL (0.00-0.02) 05/30/18 13:05 Neut # (Auto) 6.00 K/uL (1.4-6.5) 05/30/18 13:05 Lymph # (Auto) 1.26 K/uL (1.2-3.4) 05/30/18 13:05 Wheeler # (Auto) 0.66 K/uL (0.11-0.59) H 05/30/18 13:05 Eos # (Auto) 0.08 K/uL (0-0.5) 05/30/18 13:05 Baso # (Auto) 0.03 K/uL (0-0.2) 05/30/18 13:05 Sodium 138 mmol/L (136-145) 05/30/18 13:05 Potassium 3.5 mmol/L (3.5-5.1) 05/30/18 13:05 Chloride 102 mmol/L (98-107) 05/30/18 13:05 Carbon Dioxide 32 mmol/L (21-32) 05/30/18 13:05 Anion Gap 4.0 (3-11) 05/30/18 13:05 BUN 19 mg/dl (7-18) H 05/30/18 13:05 Creatinine 1.68 mg/dl (0.6-1.4) H 05/30/18 13:05 Est Cr Clr Drug Dosing 33.6 ml/min 05/30/18 13:05 Est GFR ( Amer) 42.0 05/30/18 13:05 Est GFR (Non-Af Amer) 36.2 05/30/18 13:05 BUN/Creatinine Ratio 11.5 (10-20) 05/30/18 13:05 Glucose 113 mg/dl (70-99) H 05/30/18 13:05 Calcium 9.8 mg/dl (8.5-10.1) 05/30/18 13:05 Total Bilirubin 0.9 mg/dl (0.2-1) 05/30/18 13:05 AST 24 U/L (15-37) 05/30/18 13:05 ALT 26 U/L (12-78) 05/30/18 13:05 Alkaline Phosphatase 123 U/L (45-117) H 05/30/18 13:05 Total Protein 7.8 gm/dl (6.4-8.2) 05/30/18 13:05 Albumin 3.4 gm/dl (3.4-5.0) 05/30/18 13:05 Globulin 4.4 gm/dl (2.5-4.0) H 05/30/18 13:05 Albumin/Globulin Ratio 0.8 (0.9-2) L 05/30/18 13:05 Lipase 100 U/L (73-393) 05/30/18 13:[address] ABD/PELVIS IMPRESSION: 1. Large hiatal hernia contains the majority of the stomach and a portion of the transverse colon. No evidence of gastric outlet obstruction. 2. No bowel obstruction or focal bowel wall thickening. 3. Colonic diverticulosis without acute diverticulitis. 4. Prostamegaly with circumferential wall thickening of the bladder suggestive of chronic urinary bladder outlet obstruction and/or cystitis. Correlate with urinalysis. 5. Nonobstructing bilateral nephrolithiasis. 6. Moderate right renal atrophy with multifocal cortical scarring. 7. 2.5 cm superior pole and 1.1 cm inferior pole mildly hyperdense lesions about the right kidney are indeterminate. Proteinaceous or hemorrhagic cysts on the primary differential considerations with renal neoplasm considered less likely. Correlation with renal ultrasound recommended. 8. Cholelithiasis. 9. Laminectomy with posterior interbody anne-marie and screw fusion at L4-S1. The right L4 pedicle screw extends into the L3-L4 disc space and demonstrates circumferential lucency suggestive of loosening. 10. Additional findings as above. Code Status & VTE Plan VTE Prophylaxis Plan VTE Prophylaxis will be ordered: Yes Supervising Physician Co-Signing Physician Notes Attending addendum The patient is seen and examined medical floor He is an 87 years old male without significant past medical history except hypertension, hyperlipidemia and benign prostatic hypertrophy was sent in from doctor's office with the poor appetite, weight loss and possible anemia. Denies any significant symptoms on admission except occasional heartburn and burping On examination Lying in bed comfortably Hemodynamically stable Chest-clear to auscultate bilaterally Heart-S1-S2, regular Abdomen-benign, mildly tender epigastrium. Bowel sounds present no organomegaly Extremities-negative for any edema Labs and imaging studies reviewed Has huge hiatal hernia and nonspecific renal relation Agree with assessment & plan as outlined above by Diane huffman
[2018-05-30] MEDS ORDERED: TRAMADOL HCL 50 MG TABLET PO PRN (17:34)
[2018-05-30] MEDS ORDERED: ACETAMINOPHEN 325 MG TAB PO PRN (17:34)
[2018-05-30 19:14] LABS: Partial Thromboplastin Ratio 1.1; Partial Thromboplastin Time 28.1 Seconds (21.0-31.0)
[2018-05-30] MEDS: TAMSULOSIN HCL 0.4 MG CAP PO SCH (19:53)
[2018-05-30] MEDS: SODIUM CHLORIDE 0.9% 1000ML 1,000 ML IV SCH (19:53)
[2018-05-30] MEDS: PANTOprazole 40 MG TAB PO SCH (19:53)
[2018-05-30] MEDS: TOLTERODINE TARTRATE LA 4 MG CAPCR PO SCH (19:53)
[2018-05-30] MEDS: METOPROLOL SUCC 50MG EXT REL TAB PO SCH (20:06)
[2018-05-30] MEDS: AMLODIPINE BESYLATE 5 MG TAB PO SCH (20:07)
--- NOTE | 2018-05-30 20:08 | Ultrasound Report ---
RENAL ULTRASOUND HISTORY: f/u renal lesions on CT scan COMPARISON: Abdomen and pelvis CT 05/30/2018. FINDINGS: Right kidney: 10.9 cm. No hydronephrosis. Severe cortical thinning. Multiple cysts identified within the right kidney. The largest interpolar cyst is septated and measures 5 cm. There is a complex upper pole lesion measuring 2.7 cm with internal echoes. Therefore, this could represent a complex cyst ar e partially solid lesion. Left kidney: 12.4 cm. No hydronephrosis. Mild cortical thinning. There is a 2.8 cm cyst. Bladder: Not well distended and therefore not well evaluated. IMPRESSION: 1. Bilateral renal cysts. 2. There is also a 2.7 cm cyst within the right kidney which favors a complex cyst. However, dedicate d nonemergent renal MRI is recommended to exclude a solid lesion. Electronically signed by: Roberto Berger M.D. 05/30/2018 8:07 PM
[2018-05-30] MEDS: MAGNESIUM OXIDE 400 MG TAB PO SCH (20:36)
[2018-05-30] MEDS: GABAPENTIN 300 MG CAP PO SCH (20:36)
[2018-05-31] MEDS: SODIUM CHLORIDE 0.9% 1000ML 1,000 ML IV SCH ×2 (05:45→17:48)
[2018-05-31] MEDS: HEPARIN SOD 5,000 UNIT/0.5 ML VIAL SQ SCH ×3 (05:48→22:33)
[2018-05-31 06:46] LABS: Appearance Urine Clear (Clear); Bilirubin Urine Negative (Negative); Blood Urine Negative (Negative); Color Urine Yellow; Glucose Urine UA Negative (Negative); Ketones Urine Negative (Negative); Leukocyte Esterase Urine Negative (Negative); Nitrite Urine Negative (Negative); Protein Urine Negative (Negative); Specific Gravity Urine 1.019 (1.000-1.030); Urobilinogen Urine Negative (Negative)
[2018-05-31 06:52] LABS: Hematocrit (blood only) 40.5 % (42-52); Mean Corpuscular Hgb Conc 32.1 g/dL (32-36); Mean Corpuscular Volume 86.7 fL (80-100); Mean Platelet Volume 10.1 fL (7.4-10.4); Platelet Count 185 K/uL (130-400); RDW Coefficient of Variation 14.2 % (11.5-14.5); RDW Standard Deviation 44.4 fL (36.4-46.3); Red Blood Count 4.67 M/uL (4.7-6.1); White Blood Count 6.12 K/uL (4.8-10.8)
[2018-05-31 07:33] LABS: BUN Creatinine Ratio 15.9 (10-20); Calcium 8.8 mg/dl (8.5-10.1); Creatinine Clr Calc Pharmacy 44.8 ml/min; Est GFR (African American) 59.5; Est GFR (Non-African American) 51.3; Potassium 3.2 mmol/L (3.5-5.1)
[2018-05-31] MEDS: ATORVASTATIN 40 MG TAB PO SCH (08:13)
[2018-05-31] MEDS: CLOPIDOGREL BISULFATE 75 MG TAB PO SCH (08:13)
[2018-05-31] MEDS: METOPROLOL SUCC 50MG EXT REL TAB PO SCH (08:13)
[2018-05-31] MEDS: AMLODIPINE BESYLATE 5 MG TAB PO SCH (08:13)
[2018-05-31] MEDS: ALLOPURINOL 300 MG TAB PO SCH (08:13)
[2018-05-31] MEDS: GABAPENTIN 300 MG CAP PO SCH ×3 (08:14→20:00)
[2018-05-31] MEDS: TAMSULOSIN HCL 0.4 MG CAP PO SCH (08:14)
[2018-05-31] MEDS: TOLTERODINE TARTRATE LA 4 MG CAPCR PO SCH (08:14)
[2018-05-31] MEDS: PANTOprazole 40 MG TAB PO SCH (08:14)
[2018-05-31] MEDS: MAGNESIUM OXIDE 400 MG TAB PO SCH ×2 (08:14→20:01)
[2018-05-31] MEDS: ASPIRIN 81 MG ECTAB PO SCH (08:19)
[2018-05-31 14:26] LABS: INR 1.1 (0.9-1.1); Prothrombin Time 11.3 Seconds (9.0-12.0)
--- NOTE | 2018-05-31 16:00 | Hospitalist Progress Note ---
Date of Service May 31, 2018 Assessment & Plan (1) Weight loss: (2) Hiatal hernia: -Admit to [facility] -Patient presenting by referral PCP for evaluation of hypotension, weight loss, pallor -In the ED, hemoglobin stable at 14.5 however likely some component of hemoconcentration due to dehydration, creatinine 1.6 (mildly elevated from baseline), and CT ABD/pelvis showing large hiatal hernia contains the majority of the stomach and a portion of the transverse colon -There is no evidence of obstruction or incarcerated hernia on CT, however patient should be evaluated by general surgery or possibly thoracic surgery for further treatment recommendations of large hiatal hernia. An extensive discussion was had with the patient regarding this, however he is declining to be seen by specialists while in the hospital and would like to follow-up with his outpatient primary care provider. -The large hernia is likely attributing to patient's symptoms however he also should be evaluated by GI for possible endoscopy -will provide supportive care with IVF and advance diet as tolerated -Clinically stable and may be feeling a little better -We will advance diet as tolerated -We will get barium swallow while in the hospital and surgical evaluation on Saturday (3) Furuncle: -Noted behind left ear -Suri Mishra PA-C from the ED was consulted for I&D -Instructions: Packing should be removed tomorrow if it is not removed with dressing changes. Continue warm, moist compresses and may consider gentle massage to continue to aid in drainage, as there was not a significant amount of drainage during the procedure. Bandage with bacitracin and bandage. -No indication for antibiotics at this time -Ulcerated lesion behind left ear does not have any spreading cellulitis -We will advise to change the dressing and take out the pack (4) MAXI (acute kidney injury): (5) CKD (chronic kidney disease), stage III: -Baseline creatinine ~1.2 -Noted to be 1.6 today -Elevation likely prerenal secondary to poor p.o. intake -IVF, follow renal functions -Kidney function is much better (6) Renal lesion: -Noted on CT ABD/pelvis -Checking renal US as follow-up -Ultrasound shows cyst in the kidneys and all of the lesions needs to be further evaluated with an MRI of the kidney (7) Hypertension: -BP elevated, likely secondary to recent medication noncompliance -Resume home doses of metoprolol and amlodipine, make adjustments as needed (8) COPD (chronic obstructive pulmonary disease): -No signs of acute exacerbation -Continue home inhalers (9) Dyslipidemia: -Continue statin (10) BPH (benign prostatic hypertrophy): -Continue dutasteride and tamsulosin (11) Aortic stenosis: (12) H/O diastolic dysfunction: -Severe aortic stenosis, being monitored as an outpatient for possible TAVR -Monitor volume status closely (13) Peripheral vascular disease: -Continue aspirin and Plavix (14) DVT prophylaxis: -SQ heparin Subjective He is an 87 years old male without significant past medical history except hypertension, hyperlipidemia and benign prostatic hypertrophy was sent in from doctor's office with the poor appetite, weight loss and possible anemia. 05/31 Denies any specific symptoms Feels hungry and wants to eat On asking question admitted to have some problem with swallowing Advised for a barium swallow test and advised for surgical opinion as well Not been agreeable yet Physical Exam 2 Vital Signs (Past 24 Hours): Last Vital Signs Temp 36.4 C L 05/31/18 15:28 Pulse 65 05/31/18 15:28 Resp 20 05/31/18 15:28 BP 120/90 05/31/18 15:28 Pulse Ox 96 05/31/18 15:28 Constitutional: WD/WN, vitals as above Eyes: PERRL, conjunctivae normal, anicteric sclerae ENMT: Ears: no external ear abnormality Nose: + nasal mucous membrane abnormality (Mucous membranes dry); no external nose abnormality Respiratory: normal respiratory effort; no respiratory distress Auscultation: + diminished lung sounds Cardiovascular: Rate/Rhythm: regular rate and regular rhythm Vessels: normal peripheral pulses (Diminished pedal pulses) Extremities: + edema (+1 LLE, +2 RLE) Gastrointestinal (Abdomen): normal bowel sounds, soft, nontender, no hepatosplenomegaly Musculoskeletal: no cyanosis or clubbing, extremities motor strength 5/5 Skin: no rashes, warm and dry Neurologic: PERRL, EOMI, accommodation nl, no face palsy, no dysarthria Psychiatric: A+Ox3, euthymic affect Results & Data Laboratory Results Short CBC 05/31/18 Range/Units 06:23 WBC 6.12 (4.8-10.8) K/uL Hgb 13.0 L (14.0-18.0) g/dL Hct 40.5 L (42-52) % Plt Count 185 (130-400) K/uL BMP 05/31/18 06:23 Sodium 138 Potassium 3.2 L Chloride 105 Carbon Dioxide 29 BUN 20 H Creatinine 1.26 D Glucose 96 Calcium 8.8 Urine 05/31/18 Range/Units 06:40 Urine Color Yellow Urine Appearance Clear (Clear) Urine pH 5.0 (4.5-7.5) Ur Specific [place] 1.019 (1.000-1.030) Urine Protein Negative (Negative) Urine Glucose (UA) Negative (Negative) Medications Administered Current Inpatient Medications Acetaminophen (Tylenol) 650 mg PO Q4H PRN PRN Reason: pain/fever Stop: 06/29/18 17:33 Allopurinol (Zyloprim) 300 mg PO [facility] Stop: 06/30/18 08:59 Last Admin: 05/31/18 08:13 Dose: 300 mg Amlodipine Besylate (Norvasc) 2.5 mg PO [facility] Stop: 06/29/18 16:59 Last Admin: 05/31/18 08:13 Dose: 2.5 mg Aspirin (Ecotrin Ectab) 81 mg PO [facility] Stop: 06/30/18 08:59 Last Admin: 05/31/18 08:19 Dose: 81 mg Atorvastatin Calcium (Lipitor) [facility] [place]: 06/30/18 08:59 Last Admin: 05/31/18 08:13 Dose: 40 mg Clopidogrel Bisulfate (Plavix) 75 mg PO QAM [facility] Stop: 06/30/18 08:59 Last Admin: 05/31/18 08:13 Dose: 75 mg Gabapentin (Neurontin) 300 mg PO TID [facility] Stop: 06/29/18 20:59 Last Admin: 05/31/18 13:35 Dose: 300 mg Heparin Sodium (Porcine) (Heparin Sodium (Porcine)) 5,000 units SQ Q8 [facility] Stop: 06/30/18 05:59 Last Admin: 05/31/18 15:27 Dose: 5,000 units Sodium Chloride (Nss 1000ml) 1,000 mls @ 80 mls/hr IV .[id number] [facility] Stop: 06/29/18 17:59 Last Admin: 05/31/18 05:45 Dose: 80 mls/hr Magnesium Oxide (Mag-Ox) 400 mg PO BID [facility] Stop: 06/29/18 20:59 Last Admin: 05/31/18 08:14 Dose: 400 mg Metoprolol Succinate (Toprol Xl) 50 mg PO QAM [facility] Stop: 06/29/18 16:59 Last Admin: 05/31/18 08:13 Dose: 50 mg Miscellaneous (Order Awaiting Action) 1 ea N/A QS [facility] Stop: 06/30/18 00:00 Last Admin: 05/31/18 08:15 Dose: Not Given Miscellaneous (Order Awaiting Action) 1 ea N/A QS [facility] Stop: 06/30/18 00:00 Last Admin: 05/31/18 08:15 Dose: Not Given Miscellaneous (Order Awaiting Action) 1 ea N/A QS [facility] Stop: 06/30/18 00:00 Last Admin: 05/31/18 08:15 Dose: Not Given Pantoprazole Sodium (Protonix) 40 mg PO DAILY [facility] Stop: 06/29/18 17:33 Last Admin: 05/31/18 08:14 Dose: 40 mg Tamsulosin HCl (Flomax) 0.4 mg PO DAILY [facility] Stop: 06/29/18 17:33 Last Admin: 05/31/18 08:14 Dose: 0.4 mg Tolterodine Tartrate (Detrol La) 4 mg PO DAILY [facility] Stop: 06/29/18 17:33 Last Admin: 05/31/18 08:14 Dose: 4 mg Tramadol HCl (Ultram) 50 - 100 mg PO Q6H PRN PRN Reason: Pain Stop: 06/29/18 17:33
[2018-06-01] MEDS: HEPARIN SOD 5,000 UNIT/0.5 ML VIAL SQ SCH ×3 (05:11→20:11)
[2018-06-01 05:34] LABS: Hemoglobin 12.7 g/dL (14.0-18.0); Mean Corpuscular Hgb Conc 32.6 g/dL (32-36); Mean Corpuscular Volume 87.4 fL (80-100); Mean Platelet Volume 9.4 fL (7.4-10.4); Platelet Count 162 K/uL (130-400); RDW Standard Deviation 44.4 fL (36.4-46.3); Red Blood Count 4.46 M/uL (4.7-6.1)
[2018-06-01] MEDS: SODIUM CHLORIDE 0.9% 1000ML 1,000 ML IV SCH ×2 (05:37→17:59)
[2018-06-01] MEDS: AMLODIPINE BESYLATE 5 MG TAB PO SCH (07:37)
[2018-06-01] MEDS: ALLOPURINOL 300 MG TAB PO SCH (07:37)
[2018-06-01] MEDS: GABAPENTIN 300 MG CAP PO SCH ×3 (07:38→20:10)
[2018-06-01] MEDS: CLOPIDOGREL BISULFATE 75 MG TAB PO SCH (07:38)
[2018-06-01] MEDS: ATORVASTATIN 40 MG TAB PO SCH (07:38)
[2018-06-01] MEDS: MAGNESIUM OXIDE 400 MG TAB PO SCH ×2 (07:38→20:11)
[2018-06-01] MEDS: PANTOprazole 40 MG TAB PO SCH (07:38)
[2018-06-01] MEDS: METOPROLOL SUCC 50MG EXT REL TAB PO SCH (07:38)
[2018-06-01] MEDS: ASPIRIN 81 MG ECTAB PO SCH (07:39)
[2018-06-01] MEDS: TOLTERODINE TARTRATE LA 4 MG CAPCR PO SCH (07:39)
[2018-06-01] MEDS: TAMSULOSIN HCL 0.4 MG CAP PO SCH (07:39)
--- NOTE | 2018-06-01 17:14 | Hospitalist Progress Note ---
Date of Service June 01, 2018 Assessment & Plan (1) Weight loss: (2) Hiatal hernia: tolerating diet well for Ba Swallow tomorrow, possible Gen Surg consult monitor (3) Furuncle: -Noted behind left ear no signs of infection (4) MAXI (acute kidney injury): (5) CKD (chronic kidney disease), stage III: -Baseline creatinine ~1.2 on IV NSS monitor crea (6) Renal lesion: -Noted on CT ABD/pelvis -Checking renal US as follow-up -Ultrasound shows cyst in the kidneys and all of the lesions needs to be further evaluated with an MRI of the kidney (7) Hypertension: improving (8) COPD (chronic obstructive pulmonary disease): -No signs of acute exacerbation -Continue home inhalers (9) Dyslipidemia: -Continue statin (10) BPH (benign prostatic hypertrophy): -Continue dutasteride and tamsulosin (11) Aortic stenosis: (12) H/O diastolic dysfunction: -Severe aortic stenosis, being monitored as an outpatient for possible TAVR euvolemic (13) Peripheral vascular disease: -Continue aspirin and Plavix (14) DVT prophylaxis: -SQ heparin Subjective ff up for hiatal hernia resting in chair comfortable states he is able to tolerate regular consistency diet well today denies abdominal pain , nausea/vomiting, chest pain no other symptoms Physical Exam 2 Vital Signs (Past 24 Hours): Last Vital Signs Temp 36.7 C 06/01/18 15:24 Pulse 75 06/01/18 15:24 Resp 16 06/01/18 15:24 BP 135/88 06/01/18 15:24 Pulse Ox 95 06/01/18 15:24 Physical Exam: General- oriented x 2, not in distress, speaks in sentences with no effort or accessory muscle use Eyes- anicteric Ear- right auricle: no signs of infection small healing furuncle Neck- no JVD Lungs- clear BS BL, no rales/wheezes Heart- normal rate, regular rhythm; no murmurs Abdomen- normal bowel sounds, nondistended, soft, nontender Extremities- trace edema on the right lower leg, no calf tenderness Neuro- alert, oriented x 2; no gross focal neurologic deficits Skin- warm & dry
[2018-06-01 17:21] LABS: BUN Creatinine Ratio 14.1 (10-20); Creatinine Clr Calc Pharmacy 39.2 ml/min; Est GFR (African American) 50.6; Est GFR (Non-African American) 43.7; Potassium 3.8 mmol/L (3.5-5.1)
--- NOTE | 2018-06-01 21:31 | Ultrasound Report ---
RIGHT LOWER EXTREMITY VENOUS DOPPLER CLINICAL HISTORY: Right leg pain. COMPARISON STUDY: Right lower extremity venous Doppler November 22, 2017. TECHNIQUE: Sonography of the deep venous system of the right lower extremity was performed. Compress ion and augmentation were evaluated. FINDINGS: The right common femoral, superficial femoral and popliteal veins were compressible. Augme ntation was normal. Flow was shown within the deep calf vessels. IMPRESSION: No evidence of deep venous thrombus within the right lower extremity. Electronically signed by: Cisco Magdaleno M.D. 06/01/2018 9:30 PM
[2018-06-02] MEDS: SODIUM CHLORIDE 0.9% 1000ML 1,000 ML IV SCH ×2 (06:04→20:03)
[2018-06-02] MEDS: TOLTERODINE TARTRATE LA 4 MG CAPCR PO SCH (07:47)
[2018-06-02] MEDS: ALLOPURINOL 300 MG TAB PO SCH (07:48)
[2018-06-02] MEDS: ATORVASTATIN 40 MG TAB PO SCH (07:48)
[2018-06-02] MEDS: CLOPIDOGREL BISULFATE 75 MG TAB PO SCH (07:48)
[2018-06-02] MEDS: AMLODIPINE BESYLATE 5 MG TAB PO SCH (07:48)
[2018-06-02] MEDS: METOPROLOL SUCC 50MG EXT REL TAB PO SCH (07:49)
[2018-06-02] MEDS: ASPIRIN 81 MG ECTAB PO SCH (07:49)
[2018-06-02] MEDS: MAGNESIUM OXIDE 400 MG TAB PO SCH ×2 (07:49→20:05)
[2018-06-02] MEDS: PANTOprazole 40 MG TAB PO SCH ×2 (07:49→20:06)
[2018-06-02] MEDS: GABAPENTIN 300 MG CAP PO SCH ×3 (07:49→20:04)
[2018-06-02] MEDS: TAMSULOSIN HCL 0.4 MG CAP PO SCH (07:49)
[2018-06-02] MEDS: HEPARIN SOD 5,000 UNIT/0.5 ML VIAL SQ SCH ×2 (07:50→20:06)
[2018-06-02 08:13] LABS: BUN Creatinine Ratio 14.7 (10-20); Creatinine Clr Calc Pharmacy 42.5 ml/min; Est GFR (African American) 55.7; Est GFR (Non-African American) 48.1; Potassium 3.7 mmol/L (3.5-5.1)
--- NOTE | 2018-06-02 13:37 | Fluoroscopy Report ---
FL barium swallow CLINICAL HISTORY: R/O obstruction,Dysphagiadysphagia COMPARISON STUDY: None FLUOROSCOPY TIME: 1.1 minutes NUMBER OF FLUOROSCOPIC IMAGES: 15 FINDINGS: Severe esophageal dysmotility and/or spasm. Hiatal hernia. Moderate gastroesophageal reflux . IMPRESSION: 1. Severe esophageal dysmotility/spasm. 2. Hiatal hernia. 3. Moderate gastroesophageal reflux. The above report was generated using voice recognition software. It may contain grammatical, syntax or spelling errors. Electronically signed by: Patrick Miller M.D. 06/02/2018 1:36 PM
--- NOTE | 2018-06-02 16:09 | Gastrointestinal Consultation ---
Date of Consultation June 02, 2018 Assessment & Plan (1) Weight loss: Present on Admission?: Yes (2) Esophageal dysmotility: Present on Admission?: Yes (3) Hiatal hernia: Present on Admission?: Yes (4) Dysphagia: Pt is a 87 y/o male w c/o weight loss, poor appetite and dysphagia. He does have hx of large hiatal hernia, currently containing majority of stomach and transverse colon on CT scan. Barium study w signs of esophageal dysmotility/ spasm, GERD. He is on Plavix and ASA for hx of PVD, aortic stenosis. - Consult Anesthesia and Cardiology to assess risk and obtain clearance for EGD - Plan for EGD eval on 06/05/18. Hold Plavis starting today for procedure - Increase Protonix to 40mg BID - Soft, "slippery" diet - CT Surgery consulted by primary team for possible hiatal hernia repair, appreciate recs. Present on Admission?: Yes Supervising Physician Co-Signing Physician Notes I saw and evaluated the patient with Ms. Melendrez. We were consulted due to a recent UGI series which showed esophageal dysmotility. the patient is elderly and has difficulty with describing his symtpoms today. He seems to indicate early satiety with an occasional sensation of food sticking. In the past he was advised to have his hiatal hernia repaired. PE NAD No abdominal tenderenss Impression: Patient with a type 4 paraesophageal hernia now with symptoms of satiety. I suspect that this symptoms are likely related to the CT finding and may best be treated with surgical intervention. Given his comorbid conditions I suspect he is a very poor surgical candidate. We can certainly try an EGD to look for a simple process such as a ring or stricture, however, I suspect that his symptoms are more than likely related to the Type 4 paraesophageal hernia. Recomendations: EGD to be arranged (hold plavix please) CT surgery consultation Consider a cardiology evaluation to determine perioperative risk History of Present Illness Reason for Consultation: Esophageal dysmotility Requesting Physician: Dr. Khalif De La Cruz Attending Physician: Dr. Violet Waters History of Present Illness Pt is a 87 y/o male w PMHx of COPD, HTN, gout, CKD, OP, psoriatic arthritis, dyslipidemia, severe aortic stenosis, hx of Aflutter, hx of duodenal ulcer, BPH , PVD, hx of stomach volvulus who's currently admitted for weakness and reported weight loss (20lbs in last 2 months). Pt reported poor appetite. Does have trouble with food getting stuck on throat when he swallows. Denies painful swallowing, abd pain, n/v. Hx of large hiatal hernia seen on EGD done last year. CT abd/pelvis w/o contrast showed large hiatal hernia containing majority of stomach and portion of transverse colon, but no signs of gastric outlet obstruction. He had a barium swallow today w signs of GERD, esophageal dysmotility/spasm and again, the hiatal hernia. Currently he is on Pantoprazole 40mg daily. Allergies Allergy/AdvReac Type Severity Reaction Status Date / Time morphine Allergy Unknown "out of it Verified 05/30/18 14:54 for days" colchicine AdvReac Mild GI upset Verified 05/30/18 14:54 [place] [employer] AdvReac Unknown STOMACH Verified 05/30/18 14:54 ACHE FROM [employer] [facility] tomato AdvReac Unknown HEADACHE Verified 05/30/18 14:54 FROM [employer]AT[employer] [facility] Home Medications Home Medications Medication Instructions Recorded Confirmed Type allopurinol 300 mg PO QAM 01/20/18 05/30/18 History amlodipine 2.5 mg PO QAM 01/20/18 05/30/18 History aspirin 81 mg PO QAM 01/20/18 05/30/18 History atorvastatin 40 mg PO QAM 01/20/18 05/30/18 History clopidogrel 75 mg PO QAM 01/20/18 05/30/18 History dutasteride 0.5 mg PO QAM 01/20/18 05/30/18 History gabapentin 300 mg PO TID 01/20/18 05/30/18 History metoprolol succinate 50 mg PO QAM 01/20/18 05/30/18 History mirabegron [Myrbetriq] 50 mg PO DAILY 01/20/18 05/30/18 History pantoprazole 20 mg PO DAILY 01/20/18 05/30/18 History tolterodine 4 mg PO DAILY 01/20/18 05/30/18 History tramadol 50 - 100 mg PO Q6H PRN 01/20/18 05/30/18 History ipratropium-albuterol [Combivent 1 puff INHALATION QID PRN 05/30/18 05/30/18 History Respimat] magnesium oxide 400 mg PO BID 05/30/18 05/30/18 History mometasone [Asmanex Twisthaler] 2 inh INHALATION BID 05/30/18 05/30/18 History tamsulosin 0.4 mg PO DAILY 05/30/18 05/30/18 History Patient History Medical History Urinary incontinence (Chronic) COPD (chronic obstructive pulmonary disease) (Chronic) Hypertension (Chronic) Gout (Chronic) CKD (chronic kidney disease), stage III (Chronic) Osteoporosis (Chronic) Psoriatic arthritis (Chronic) Dyslipidemia (Chronic) Aortic stenosis (Chronic) "echo 02/2017 - severe " On 03/21/15 18:55 Angela Jaramillo wrote "moderate" Tobacco abuse (Resolved) H/O atrial flutter (Chronic) "occurred postoperatively in 01/2014, converted to sinus rhythm with IV diltiazem" Nocturnal hypoxemia (Chronic) History of duodenal ulcer (Chronic) H/O diastolic dysfunction (Chronic) "grade I per echo 02/2017" On 03/21/15 19:09 Angela Jaramillo wrote "grade I per echo 01/2014" BPH (benign prostatic hypertrophy) (Chronic) Volvulus of stomach (Resolved) Neuropathy (Chronic) Peripheral vascular disease (Chronic) s/p angioplasty of right posterior tibial artery Surgical History History of back surgery (Chronic) History of lithotripsy Family History Other Family history non-contributory Social History Current Living Situation: Family Current Living Situation Comment: son lives w/ pt Other Information That Helps Us Care for You: No Feels Safe at Home: Yes and No Is there a partner from a previous relationship who is making you feel unsafe now?: No Any Concerns about Your Family Situation : No Would You Like to Speak to Someone About Your Situation: No Safety Concerns: Feels Safe At This Time Smoking Status: Former smoker Smoking End Date: > 40 years ago Hx Alcohol Use: No Hx Substance Use: No Beliefs That Will Affect Care: None Communication Ability: Effective Review of Systems Constitutional: as per Subjective / HPI Respiratory: no cough and no dyspnea Cardiovascular: no chest pain, no lightheadedness and no edema Gastrointestinal: + dysphagia; no abdominal pain, no heartburn, no nausea, no vomiting, no hematemesis, no pain with swallowing, no cramping, no change in stools and no melena Physical Exam 2 Vital Signs (Past 24 Hours): Last Vital Signs Temp 36.7 C 06/02/18 15:39 Pulse 86 06/02/18 15:39 Resp 18 06/02/18 15:39 BP 103/71 06/02/18 15:39 Pulse Ox 95 06/02/18 15:39 Constitutional: WD/WN, vitals as above well groomed, cooperative and comfortable Eyes: PERRL, conjunctivae normal, anicteric sclerae ENMT: external ear and nose normal, oropharynx normal Respiratory: normal respiratory effort; does not use accessory muscles Auscultation: + diminished lung sounds Cardiovascular: RRR, no murmur, no edema Gastrointestinal (Abdomen): normal bowel sounds, soft, nontender, no hepatosplenomegaly Skin: no rashes, warm and dry no jaundice Neurologic: Motor/Sensory: no asterixis Psychiatric: A+Ox3, euthymic affect Lymphatic: no lymphedema Results & Data Laboratory Results Laboratory Results - last 48 hr 06/01/18 06/01/18 06/02/18 05:15 16:42 07:22 WBC 4.90 RBC 4.46 L Hgb 12.7 L Hct 39.0 L MCV 87.4 MCH 28.5 MCHC 32.6 RDW Std Deviation 44.4 RDW Coeff of Morris 14.0 Plt Count 162 MPV 9.4 Sodium 137 139 Potassium 3.8 D 3.7 Chloride 106 106 Carbon Dioxide 27 27 Anion Gap 4.0 6.0 BUN 20 H 20 H Creatinine 1.44 H 1.33 Est Cr Clr Drug Dosing 39.2 42.5 Est GFR ( Amer) 50.6 55.7 Est GFR (Non-Af Amer) 43.7 48.1 BUN/Creatinine Ratio 14.1 14.7 Glucose 123 H 108 H Calcium 8.0 L 8.0 L Diagnostic Findings FL barium swallow CLINICAL HISTORY: R/O obstruction,Dysphagiadysphagia COMPARISON STUDY: None FLUOROSCOPY TIME: 1.1 minutes NUMBER OF FLUOROSCOPIC IMAGES: 15 FINDINGS: Severe esophageal dysmotility and/or spasm. Hiatal hernia. Moderate gastroesophageal reflux. IMPRESSION: 1. Severe esophageal dysmotility/spasm. 2. Hiatal hernia. 3. Moderate gastroesophageal reflux. ABDOMEN AND PELVIS CT WITHOUT CONTRAST CT DOSE: 1098.04 mGycm HISTORY: Acute upper abdominal pain with weight loss and anemia upper abd pain , weight loss, anemia TECHNIQUE: Multiaxial CT images of the abdomen and pelvis were performed without contrast. A dose lowering technique was utilized adhering to the principles of ALARA. COMPARISON STUDY: Chest CT 11/11/2008, renal ultrasound 02/21/2014, lumbar spine radiographs 12/17/2016. FINDINGS: Calcified pleural plaques with calcified granulomata noted about the lung bases. Bibasilar linear subsegmental pleural based consolidative and groundglass densities suggest atelectasis/scarring. There is no pneumatosis or pneumoperitoneum identified. The imaged inferior cardiac chambers are unremarkable. Coronary arterial and aortic annular calcifications are noted. Trace pericardial effusion. Mild hepatic steatosis. Indeterminate ill-defined mildly hypodense lesion about the subserosal inferior right hepatic lobe measures 1.3 cm. Suggested cyst of the hepatic dome measures 1.2 cm. Scattered calcified granulomata noted about the spleen. Moderate generalized pancreatic atrophy. The adrenal glands appear to be unremarkable. Cholelithiasis without CT evidence of acute cholecystitis. Nonspecific bilateral perinephric stranding. Punctate and 4 mm nonobstructing calculi noted about the inferior pole left kidney. 2.2 cm cyst of the inferior pole left kidney is also noted. Moderate atrophy with multifocal cortical scarring about the right kidney. 7 mm nonobstructing calculus of the inferior pole right kidney. There is a mildly hyperdense ovoid circumscribed 1.1 cm lesion noted about the inferior pole right kidney with 2.4 x 1.8 cm mildly hyperdense lesion of the superior pole right kidney also noted. Right renal cysts measure up to 4.4 cm. Renal vascular calcifications are noted without ureteral calculi or obstructive uropathy. Partial distention of the urinary bladder with moderate circumferential wall thickening. Prostamegaly. Extensive calcification about the abdominal aorta with mild fusiform ectasia measuring 2.9 x 2.5 cm about the infrarenal segment. No adenopathy. Large hiatal hernia with majority of the stomach and the thoracic cavity. The gastroesophageal junction is outside the [id number]. Hiatal hernia contains a portion of the transverse colon as well. No small bowel obstruction. Colonic diverticulosis without acute diverticulitis. Normal appendix. No definite bowel wall thickening. Small fat filled periumbilical hernia, diastases 1.2 cm. Partially imaged lipoma about the left rectus femoris musculature measures up to 4.2 x 1.9 cm. Sclerotic foci about the right suprapubic ramus suggest bone islands. Laminectomy changes with posterior interbody anne-marie and screw fusion at L4 -S1. Remote compression deformity about L5 with unchanged anterolisthesis L4 on L5 and L5 on S1. The right L4 pedicle screw extends into the L3-L4 disc space and demonstrates mild surrounding lucency. IMPRESSION: 1. Large hiatal hernia contains the majority of the stomach and a portion of the transverse colon. No evidence of gastric outlet obstruction. 2. No bowel obstruction or focal bowel wall thickening. 3. Colonic diverticulosis without acute diverticulitis. 4. Prostamegaly with circumferential wall thickening of the bladder suggestive of chronic urinary bladder outlet obstruction and/or cystitis. Correlate with urinalysis. 5. Nonobstructing bilateral nephrolithiasis. 6. Moderate right renal atrophy with multifocal cortical scarring. 7. 2.5 cm superior pole and 1.1 cm inferior pole mildly hyperdense lesions about the right kidney are indeterminate. Proteinaceous or hemorrhagic cysts on the primary differential considerations with renal neoplasm considered less likely. Correlation with renal ultrasound recommended. 8. Cholelithiasis. 9. Laminectomy with posterior interbody anne-marie and screw fusion at L4-S1. The right L4 pedicle screw extends into the L3-L4 disc space and demonstrates circumferential lucency suggestive of loosening. 10. Additional findings as above.
--- NOTE | 2018-06-02 16:58 | Hospitalist Progress Note ---
Date of Service June 02, 2018 Assessment & Plan (1) Weight loss: Has been ongoing for a while Was sent in from doctor's office with ongoing symptoms of abdominal discomfort, early satiety and occasional problem with swallowing Appreciate GI input and recommendation (2) Hiatal hernia: -Admit to [facility] -Patient presenting by referral PCP for evaluation of hypotension, weight loss, pallor -In the ED, hemoglobin stable at 14.5 however likely some component of hemoconcentration due to dehydration, creatinine 1.6 (mildly elevated from baseline), and CT ABD/pelvis showing large hiatal hernia contains the majority of the stomach and a portion of the transverse colon -There is no evidence of obstruction or incarcerated hernia on CT, however patient should be evaluated by general surgery or possibly thoracic surgery for further treatment recommendations of large hiatal hernia. An extensive discussion was had with the patient regarding this, however he is declining to be seen by specialists while in the hospital and would like to follow-up with his outpatient primary care provider. -The large hernia is likely attributing to patient's symptoms however he also should be evaluated by GI for possible endoscopy -will provide supportive care with IVF and advance diet as tolerated -Clinically stable and may be feeling a little better -We will advance diet as tolerated -We will get barium swallow while in the hospital and surgical evaluation on Saturday -Barium swallow showed significant esophageal dysmotility -GI consulted -General surgery and then thoracic surgery were consulted for evaluation and recommendation regarding use hiatal hernia (3) Furuncle: -Noted behind left ear -Suri Mishra PA-C from the ED was consulted for I&D -Instructions: Packing should be removed tomorrow if it is not removed with dressing changes. Continue warm, moist compresses and may consider gentle massage to continue to aid in drainage, as there was not a significant amount of drainage during the procedure. Bandage with bacitracin and bandage. -No indication for antibiotics at this time -Ulcerated lesion behind left ear does not have any spreading cellulitis -We will advise to change the dressing and take out the pack (4) MAXI (acute kidney injury): (5) CKD (chronic kidney disease), stage III: -Baseline creatinine ~1.2 -Noted to be 1.6 today -Elevation likely prerenal secondary to poor p.o. intake -IVF, follow renal functions -Kidney function is much better (6) Renal lesion: -Noted on CT ABD/pelvis -Checking renal US as follow-up -Ultrasound shows cyst in the kidneys and all of the lesions needs to be further evaluated with an MRI of the kidney (7) Hypertension: -BP elevated, likely secondary to recent medication noncompliance -Resume home doses of metoprolol and amlodipine, make adjustments as needed (8) COPD (chronic obstructive pulmonary disease): -No signs of acute exacerbation -Continue home inhalers -No acute symptoms (9) Dyslipidemia: -Continue statin (10) BPH (benign prostatic hypertrophy): -Continue dutasteride and tamsulosin (11) Aortic stenosis: (12) H/O diastolic dysfunction: -Severe aortic stenosis, being monitored as an outpatient for possible TAVR -Monitor volume status closely -Cardiology consulted (13) Peripheral vascular disease: -Continue aspirin and Plavix (14) DVT prophylaxis: -SQ heparin Subjective He is an 87 years old male without significant past medical history except hypertension, hyperlipidemia and benign prostatic hypertrophy was sent in from doctor's office with the poor appetite, weight loss and possible anemia. 05/31 Denies any specific symptoms Feels hungry and wants to eat On asking question admitted to have some problem with swallowing Advised for a barium swallow test and advised for surgical opinion as well Not been agreeable yet 06/02-he was seen by Dr. Silverman on Complains to have discomfort in the abdomen but denies any significant symptoms with swallowing Barium swallow did show significant esophageal dysmotility Denies any shortness of breath, chest pain, palpitation, nausea and/or vomiting Advised for GI evaluation Physical Exam 2 Vital Signs (Past 24 Hours): Last Vital Signs Temp 36.7 C 06/02/18 15:39 Pulse 86 06/02/18 15:39 Resp 18 06/02/18 15:39 BP 103/71 06/02/18 15:39 Pulse Ox 95 06/02/18 15:39 Physical Exam: Sitting on a chair without any symptoms Constitutional: WD/WN, vitals as above Eyes: PERRL, conjunctivae normal, anicteric sclerae ENMT: Ears: no external ear abnormality Nose: + nasal mucous membrane abnormality (Mucous membranes dry); no external nose abnormality Respiratory: normal respiratory effort; no respiratory distress Auscultation: + diminished lung sounds Cardiovascular: Rate/Rhythm: regular rate and regular rhythm Vessels: normal peripheral pulses (Diminished pedal pulses) Extremities: + edema (+1 LLE, +2 RLE) Gastrointestinal (Abdomen): normal bowel sounds, soft, nontender, no hepatosplenomegaly Musculoskeletal: no cyanosis or clubbing, extremities motor strength 5/5 Skin: no rashes, warm and dry Neurologic: PERRL, EOMI, accommodation nl, no face palsy, no dysarthria Psychiatric: A+Ox3, euthymic affect Results & Data Laboratory Results [facility] 06/01/18 06/02/18 16:42 07:22 Sodium 137 139 Potassium 3.8 D 3.7 Chloride 106 106 Carbon Dioxide 27 27 BUN 20 H 20 H Creatinine 1.44 H 1.33 Glucose 123 H 108 H Calcium 8.0 L 8.0 L Medications Administered Current Inpatient Medications Acetaminophen (Tylenol) 650 mg PO Q4H PRN PRN Reason: pain/fever Stop: 06/29/18 17:33 Allopurinol (Zyloprim) 300 mg PO [facility] Stop: 06/30/18 08:59 Last Admin: 06/02/18 07:48 Dose: 300 mg Amlodipine Besylate (Norvasc) 2.5 mg PO [facility] Stop: 06/29/18 16:59 Last Admin: 06/02/18 07:48 Dose: 2.5 mg Aspirin (Ecotrin Ectab) 81 mg PO [facility] Stop: 06/30/18 08:59 Last Admin: 06/02/18 07:49 Dose: 81 mg Atorvastatin Calcium (Lipitor) 40 mg PO [facility] Stop: 06/30/18 08:59 Last Admin: 06/02/18 07:48 Dose: 40 mg [facility]opidogrel [facility] ([facility]ix) [facility] [place] Stop: 06/30/18 08:59 Last Admin: 06/02/18 07:48 Dose: 75 mg Gabapentin (Neurontin) 300 mg PO TID [facility] Stop: 06/29/18 20:59 Last Admin: 06/02/18 14:06 Dose: 300 mg Heparin Sodium (Porcine) (Heparin Sodium (Porcine)) 5,000 units SQ Q12 [facility] Stop: 07/01/18 20:59 Last Admin: 06/02/18 07:50 Dose: 5,000 units Sodium Chloride (Nss 1000ml) 1,000 mls @ 80 mls/hr IV .[id number] [facility] Stop: 06/29/18 17:59 Last Admin: 06/02/18 06:04 Dose: 80 mls/hr Magnesium Oxide (Mag-Ox) 400 mg PO BID [facility] Stop: 06/29/18 20:59 Last Admin: 06/02/18 07:49 Dose: 400 mg Metoprolol Succinate (Toprol Xl) 50 mg PO QAM [facility] Stop: 06/29/18 16:59 Last Admin: 06/02/18 07:49 Dose: 50 mg Miscellaneous (Order Awaiting Action) 1 ea N/A QS [facility] Stop: 06/30/18 00:00 Last Admin: 06/02/18 16:36 Dose: Not Given Miscellaneous (Order Awaiting Action) 1 ea N/A QS [facility] Stop: 06/30/18 00:00 Last Admin: 06/02/18 16:36 Dose: Not Given Miscellaneous (Order Awaiting Action) 1 ea N/A QS [facility] Stop: 06/30/18 00:00 Last Admin: 06/02/18 16:37 Dose: Not Given Pantoprazole Sodium (Protonix) 40 mg PO BID [facility] Stop: 07/02/18 20:59 Tamsulosin HCl (Flomax) 0.4 mg PO DAILY [facility] Stop: 06/29/18 17:33 Last Admin: 06/02/18 07:49 Dose: 0.4 mg Tolterodine Tartrate (Detrol La) 4 mg PO DAILY [facility] Stop: 06/29/18 17:33 Last Admin: 06/02/18 07:47 Dose: 4 mg Tramadol HCl (Ultram) 50 - 100 mg PO Q6H PRN PRN Reason: Pain Stop: 06/29/18 17:33
--- NOTE | 2018-06-02 23:03 | Consultation Report ---
DATE OF CONSULTATION: 06/02/2018 REASON FOR CONSULTATION: Hiatal hernia. HISTORY OF PRESENT ILLNESS: This is a pleasant 87-year-old male who I saw briefly with Dr. Tracy just prior to the patient undergoing a barium swallow. The patient was revisited following his barium swallow. The patient notes that he was referred to the hospital for admission by his primary care physician as the patient was noted to have approximately 20-pound weight loss over the past two months with associated decreased appetite along with general weakness. I asked the patient to further talk to me about his symptoms and he does not really report any reflux symptoms, but then upon further questioning did admit to some burning in his chest after eating. He also notes that he gets full very easily and if he eats too much, he says that he gets an urge to vomit his food back up. He denies any hematemesis, however. He denies any bright blood per rectum and he denies any melanotic stools. When questioning him on other symptoms, the patient says that he is able to ambulate throughout his house, but he does get winded even walking on flat surfaces, but he was unable to quantify amounts as he says he just really does not pay attention to the distances he walks. He says that his symptoms to chris when he sits down to rest and he specifically denied any chest pain. He reports any recent falls, head injuries, or visual changes. He denies any tinnitus or sore throat. He denies any fevers, shakes, chills. Again, no chest pain is reported. He denies any syncopal episodes. He has abdominal complaints as noted above and really denies abdominal pain. He denies any dysuria. He denies any cramping of his lower extremities with ambulation. He denies history of stroke or seizure. He denies anxiety, depression, history of DVT or PE. Since admission to the hospital, the patient did have a CT scan of his head which showed no acute process. He did have a chest x-ray that showed a large hiatal hernia with no pneumothorax. The patient also had a CT scan of his abdomen and pelvis that showed a large hiatal hernia with a large portion of the stomach and potentially a portion of the transverse colon within his chest. There is no gastric outlet obstruction, bowel obstruction or bowel wall thickening noted. The patient had lower extremity venous Doppler studies that were negative for DVT. He did have a barium swallow that again showed a significant hiatal hernia and there was moderate GERD noted on this study with severe esophageal dysmotility and spasm. Renal ultrasound was also performed that showed the patient had a 2.7 cm cyst in the right kidney. Labs were checked also this admission and he was noted to have a white blood cell count and platelet count within normal range. Hemoglobin and hematocrit are currently 12.7 and 39.0. Chemistry profile did show sodium, potassium and creatinine presently within the normal range, but he did have a creatinine of 1.6 at time of admission. BUN is slightly elevated at 20. Due to the findings on his imaging, we were asked to see for his hiatal hernia. At the time of my exam, the patient was resting comfortably in bed. When I did question him about his hiatal hernia, he says that he believes he was evaluated for this in the past but declined surgical intervention at that time. PAST MEDICAL HISTORY: Includes, 1. History of grade 1 diastolic dysfunction. 2. History of aortic stenosis. This is reportedly to be severe by an echocardiogram in February of 2017 with an estimated aortic valve area of 1.0 and a mean gradient of 20 mmHg. 3. Peripheral vascular disease. 4. COPD. 5. Gout. 6. Chronic kidney disease stage III. 7. Osteoporosis. 8. History of atrial flutter. 9. BPH. 10. History of gastric volvulus. PAST SURGICAL HISTORY: 1. Includes posterior tibial artery angioplasty on the right lower extremity. 2. Back surgery. 3. Lithotripsy. 4. 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 ALLERGIES: HE HAS LISTED ALLERGIES TO MORPHINE, COLCHICINE, WHICH HE COULD NOT TELL ME THE EXACT REACTION. HOME MEDICATIONS: Include, 1. Allopurinol 300 mg daily. 2. Norvasc 2.5 mg daily. 3. Aspirin 81 mg daily. 4. Lipitor 40 mg daily. 5. Plavix 75 mg daily. 6. Avodart 0.5 mg daily. 7. Neurontin 300 mg 3 times daily. 8. Combivent inhaler 4 times daily. 9. Mag-Ox 400 mg twice daily. 10. Metoprolol 50 mg in the morning. 11. Myrbetriq 50 mg daily. 12. Asmanex inhaler twice daily. 13. Protonix 20 mg daily. 14. Flomax 0.4 mg daily. 15. Tolterodine 4 mg daily. 16. Tramadol as needed for pain. SOCIAL HISTORY: The patient does have a past history of smoking. FAMILY HISTORY: The patient did not know of family history of premature coronary artery disease. REVIEW OF SYSTEMS: As noted above. PHYSICAL EXAMINATION: VITAL SIGNS: The patient is afebrile, temperature 36.9, pulse is 99 and regular, blood pressure 159/97, respirations are 18 and unlabored, pulse ox 90% on room air. GENERAL: The patient is alert and oriented x3, in no distress. HEENT: Head is atraumatic, normocephalic. Eyes, pupils are equal, round, and reactive to light and accommodation. Extraocular motions are intact. Ears, auditory acuity is grossly intact. Nose, nasal patency is intact. Sinuses are nontender. Mouth is moist without exudates. NECK: Supple. There is no JVD. CARDIOVASCULAR: Revealed regular rate and rhythm. I did appreciate a systolic murmur heard best to the right of the sternal border in the second interspace. LUNGS: Revealed decreased breath sounds at the bases. There are no rales, rhonchi, wheezing, use of accessory muscles. ABDOMEN: Soft, nontender, nondistended with palpation not eliciting any pain. EXTREMITIES: Revealed no cyanosis or clubbing. He did have well-healed amputations of his second toes on each foot. Pedal pulses were not palpable. NEUROLOGIC: Exam revealed he could move all 4 extremities and follow simple commands without noted focal deficits. DIAGNOSTIC DATA: As noted above. IMPRESSION: An 87-year-old male with large hiatal hernia. PLAN: We have been asked to see the patient for potential surgical intervention. Gastroenterology has been consulted and I have discussed the case at bedside with Dr. Violet Waters and he notes that he is planning on performing an EGD in approximately 2-3 days' time once the patient has been off his Plavix for a sufficient amount of time. Dr. Waters has suggested that we determine if the patient's symptoms improve following EGD prior to considering surgical intervention. We certainly eagerly await the results of his EGD with recommendations to follow thereafter.
[2018-06-03 08:09] LABS: Basophils # (auto) 0.02 K/uL (0-0.2); Basophils % (auto) 0.3 %; Eosinophils # (auto) 0.15 K/uL (0-0.5); Eosinophils % (auto) 2.1 %; Hematocrit (blood only) 38.5 % (42-52); Hemoglobin 12.4 g/dL (14.0-18.0); Immature Granulocytes # (auto) 0.01 K/uL (0.00-0.02); Immature Granulocytes % (auto) 0.1 %; Lymphocytes # (auto) 1.35 K/uL (1.2-3.4); Lymphocytes % (auto) 19.1 %; Mean Corpuscular Hgb Conc 32.2 g/dL (32-36); Mean Corpuscular Volume 87.9 fL (80-100); Mean Platelet Volume 10.1 fL (7.4-10.4); Monocytes % (auto) 5.7 %; Neutrophils # (auto) 5.14 K/uL (1.4-6.5); Neutrophils % (auto) 72.7 %; Platelet Count 161 K/uL (130-400); RDW Coefficient of Variation 14.1 % (11.5-14.5); RDW Standard Deviation 45.2 fL (36.4-46.3); Red Blood Count 4.38 M/uL (4.7-6.1); White Blood Count 7.07 K/uL (4.8-10.8)
[2018-06-03] MEDS: METOPROLOL SUCC 50MG EXT REL TAB PO SCH (08:16)
[2018-06-03] MEDS: GABAPENTIN 300 MG CAP PO SCH ×3 (08:16→21:04)
[2018-06-03] MEDS: TAMSULOSIN HCL 0.4 MG CAP PO SCH (08:17)
[2018-06-03] MEDS: TOLTERODINE TARTRATE LA 4 MG CAPCR PO SCH (08:17)
[2018-06-03] MEDS: MAGNESIUM OXIDE 400 MG TAB PO SCH ×2 (08:17→21:03)
[2018-06-03] MEDS: ASPIRIN 81 MG ECTAB PO SCH (08:17)
[2018-06-03] MEDS: PANTOprazole 40 MG TAB PO SCH ×2 (08:17→21:04)
[2018-06-03] MEDS: ATORVASTATIN 40 MG TAB PO SCH (08:18)
[2018-06-03] MEDS: AMLODIPINE BESYLATE 5 MG TAB PO SCH (08:19)
[2018-06-03] MEDS: HEPARIN SOD 5,000 UNIT/0.5 ML VIAL SQ SCH ×2 (08:19→21:03)
[2018-06-03] MEDS: ALLOPURINOL 300 MG TAB PO SCH (08:19)
--- NOTE | 2018-06-03 08:48 | Cardiology Consultation ---
Date of Consultation June 03, 2018 Assessment & Plan (1) Esophageal dysmotility: (2) Hiatal hernia: (3) Dysphagia: (4) Weight loss: (5) Furuncle: (6) Aortic stenosis: This is a very difficult situation for this patient who has a history of severe aortic stenosis, coronary artery disease and peripheral vascular disease. The surgery itself will be high risk. Given the other comorbidities of this patient, I think he would be a high risk candidate for a cardiovascular event either during surgery or in the perioperative period. I discussed this with the patient. He has an understanding of his risk. I would recommend that he have his aortic valve secured with a KEVEN prior to proceeding to any operations to repair his hiatal hernia. I will repeat an echocardiogram this admission to compare to his most recent study performed as an outpatient 6 months ago. (7) Peripheral vascular disease: (8) CAD (coronary artery disease): History of Present Illness Attending Physician: Khalif De La Cruz MD History of Present Illness This is a pleasant 87-year-old male patient who is usually followed by Dr. Posadas with the past medical history as outlined below.He was admitted with dehydration and malnourishment due to a large hiatal hernia which involves most of his stomach and transverse colon. He has been given IV hydration and this morning he is eating a breakfast without difficulty. We have been asked to see him in regard to his aortic stenosis for preoperative risk assessment. As outlined below he has severe aortic stenosis and has been evaluated for possible Keven. He also has a history of coronary artery disease as well as peripheral vascular disease. He has no current cardiac complaints. He denies chest pain or shortness of breath. He has had no orthopnea. No tachycardia or heart palpitations. Past medical history: 1. Severe symptomatic aortic stenosis -currently under evaluation for KEVEN 2. Nonobstructive coronary disease per cardiac catheterization 09/04/17 3. PVD s/p recent angioplasty of the right posterior tibial artery 4. HTN - controlled 5. Dyslipidemia - tolerating atorvastatin 6. Chronic asymmetric right lower extremity edema secondary to venous insufficiency Allergies Allergy/AdvReac Type Severity Reaction Status Date / Time morphine Allergy Unknown "out of it Verified 05/30/18 14:54 for days" colchicine AdvReac Mild GI upset Verified 05/30/18 14:54 [facility] AdvReac Unknown STOMACH Verified 05/30/18 14:54 ACHE FROM [facility] tomato AdvReac Unknown HEADACHE Verified 05/30/18 14:54 FROM [facility] Home Medications Home Medications Medication Instructions Recorded Confirmed Type allopurinol 300 mg PO QAM 01/20/18 05/30/18 History amlodipine 2.5 mg PO QAM 01/20/18 05/30/18 History aspirin 81 mg PO QAM 01/20/18 05/30/18 History atorvastatin 40 mg PO QAM 01/20/18 05/30/18 History clopidogrel 75 mg PO QAM 01/20/18 05/30/18 History dutasteride 0.5 mg PO QAM 01/20/18 05/30/18 History gabapentin 300 mg PO TID 01/20/18 05/30/18 History metoprolol succinate 50 mg PO QAM 01/20/18 05/30/18 History mirabegron [Myrbetriq] 50 mg PO DAILY 01/20/18 05/30/18 History pantoprazole 20 mg PO DAILY 01/20/18 05/30/18 History tolterodine 4 mg PO DAILY 01/20/18 05/30/18 History tramadol 50 - 100 mg PO Q6H PRN 01/20/18 05/30/18 History ipratropium-albuterol [Combivent 1 puff INHALATION QID PRN 05/30/18 05/30/18 History Respimat] magnesium oxide 400 mg PO BID 05/30/18 05/30/18 History mometasone [Asmanex Twisthaler] 2 inh INHALATION BID 05/30/18 05/30/18 History tamsulosin 0.4 mg PO DAILY 05/30/18 05/30/18 History Patient History Medical History Urinary incontinence (Chronic) COPD (chronic obstructive pulmonary disease) (Chronic) Hypertension (Chronic) Gout (Chronic) CKD (chronic kidney disease), stage III (Chronic) Osteoporosis (Chronic) Psoriatic arthritis (Chronic) Dyslipidemia (Chronic) Aortic stenosis (Chronic) "echo 02/2017 - severe " On 03/21/15 18:55 Angela Jaramillo wrote "moderate" Tobacco abuse (Resolved) H/O atrial flutter (Chronic) "occurred postoperatively in 01/2014, converted to sinus rhythm with IV diltiazem" Nocturnal hypoxemia (Chronic) History of duodenal ulcer (Chronic) H/O diastolic dysfunction (Chronic) "grade I per echo 02/2017" On 03/21/15 19:09 Angela Jaramillo wrote "grade I per echo 01/2014" BPH (benign prostatic hypertrophy) (Chronic) Volvulus of stomach (Resolved) Neuropathy (Chronic) Peripheral vascular disease (Chronic) s/p angioplasty of right posterior tibial artery Surgical History History of back surgery (Chronic) History of lithotripsy Family History Other Family history non-contributory Social History Current Living Situation: Family Current Living Situation Comment: son lives w/ pt Other Information That Helps Us Care for You: No Feels Safe at Home: Yes and No Is there a partner from a previous relationship who is making you feel unsafe now?: No Any Concerns about Your Family Situation : No Would You Like to Speak to Someone About Your Situation: No Safety Concerns: Feels Safe At This Time Smoking Status: Former smoker Smoking End Date: > 40 years ago Hx Alcohol Use: No Hx Substance Use: No Beliefs That Will Affect Care: None Communication Ability: Effective Review of Systems Review of Systems: See HPI for pertinent positives. All other 10 point review of systems are negative. Physical Exam 2 Vital Signs (Past 24 Hours): Last Vital Signs Temp 36.3 C L 06/02/18 23:00 Pulse 97 H 06/02/18 23:00 Resp 18 06/02/18 23:00 BP 157/98 H 06/02/18 23:00 Pulse Ox 91 06/02/18 23:00 Physical Exam: General: no acute distress and stated age Head: normocephalic, no masses, lesions, tenderness or abnormalities Eyes: conjunctiva are pink and non-injected, sclera clear Neck: supple, no adenopathy, no bruits, normal jugular venous pulse, no hepatojugular reflux Chest: normal shape and normal respiratory effort Lungs: clear to auscultation and percussion Cardiac Exam: - regular rate & rhythm, Systolic murmur left sternal border- normal S1, normal S2 Pulses: 2(+) throughout Abdomen: abdomen soft, non-tender, no abnormal masses and no hepatosplenomegaly Musculoskeletal: no gait disturbance, no joint inflammation, no deforming arthritis Extremities: no edema and no cyanosis Neuro: grossly normal exam Results & Data Laboratory Results Laboratory Results - last 24 hr 06/03/18 07:41 WBC 7.07 RBC 4.38 L Hgb 12.4 L Hct 38.5 L MCV 87.9 MCH 28.3 MCHC 32.2 RDW Std Deviation 45.2 RDW Coeff of [place] 14.1 Plt Count 161 MPV 10.1 Immature Gran % (Auto) 0.1 Neut % (Auto) 72.7 Lymph % (Auto) 19.1 [place] % (Auto) 5.7 Eos % (Auto) 2.1 Baso % (Auto) 0.3 Immature Gran # (Auto) 0.01 Neut # (Auto) 5.14 Lymph # (Auto) 1.35 [place] # (Auto) 0.40 Eos # (Auto) 0.15 Baso # (Auto) 0.02 Medications Administered Current Inpatient Medications Acetaminophen (Tylenol) 650 mg PO Q4H PRN PRN Reason: pain/fever Stop: 06/29/18 17:33 Allopurinol (Zyloprim) 300 mg PO [facility] Stop: 06/30/18 08:59 Last Admin: 06/03/18 08:19 Dose: 300 mg Amlodipine Besylate (Norvasc) 2.5 mg PO [facility] Stop: 06/29/18 16:59 Last Admin: 06/03/18 08:19 Dose: 2.5 mg Aspirin (Ecotrin Ectab) 81 mg PO [facility] Stop: 06/30/18 08:59 Last Admin: 06/03/18 08:17 Dose: 81 mg Atorvastatin Calcium (Lipitor) 40 mg PO [facility] Stop: 06/30/18 08:59 Last Admin: 06/03/18 08:18 Dose: 40 mg Clopidogrel [facility]ate (Plavix) [facility] [place] Stop: 06/30/18 08:59 Last Admin: 06/02/18 07:48 Dose: 75 mg Gabapentin (Neurontin) 300 mg PO TID [facility] Stop: 06/29/18 20:59 Last Admin: 06/03/18 08:16 Dose: 300 mg Heparin Sodium (Porcine) (Heparin Sodium (Porcine)) 5,000 units SQ Q12 [facility] Stop: 07/01/18 20:59 Last Admin: 06/03/18 08:19 Dose: 5,000 units Sodium Chloride (Nss 1000ml) 1,000 mls @ 80 mls/hr IV .[id number] [facility] Stop: 06/29/18 17:59 Last Admin: 06/02/18 20:03 Dose: 80 mls/hr Magnesium Oxide (Mag-Ox) 400 mg PO BID [facility] Stop: 06/29/18 20:59 Last Admin: 06/03/18 08:17 Dose: 400 mg Metoprolol Succinate (Toprol Xl) 50 mg PO QAM [facility] Stop: 06/29/18 16:59 Last Admin: 06/03/18 08:16 Dose: 50 mg Miscellaneous (Order Awaiting Action) 1 ea N/A QS [facility] Stop: 06/30/18 00:00 Last Admin: 06/03/18 08:16 Dose: Not Given Miscellaneous (Order Awaiting Action) 1 ea N/A QS [facility] Stop: 06/30/18 00:00 Last Admin: 06/03/18 08:16 Dose: Not Given Miscellaneous (Order Awaiting Action) 1 ea N/A QS [facility] Stop: 06/30/18 00:00 Last Admin: 06/03/18 08:16 Dose: Not Given Pantoprazole Sodium (Protonix) 40 mg PO BID [facility] Stop: 07/02/18 20:59 Last Admin: 06/03/18 08:17 Dose: 40 mg Tamsulosin HCl (Flomax) 0.4 mg PO DAILY [facility] Stop: 06/29/18 17:33 Last Admin: 06/03/18 08:17 Dose: 0.4 mg Tolterodine Tartrate (Detrol La) 4 mg PO DAILY [facility] Stop: 06/29/18 17:33 Last Admin: 06/03/18 08:17 Dose: 4 mg Tramadol HCl (Ultram) 50 - 100 mg PO Q6H PRN PRN Reason: Pain Stop: 06/29/18 17:33
[2018-06-03 09:21] LABS: BUN Creatinine Ratio 16.3 (10-20); Calcium 7.7 mg/dl (8.5-10.1); Creatinine Clr Calc Pharmacy 47.9 ml/min; Est GFR (African American) 64.4; Est GFR (Non-African American) 55.5; Potassium 3.7 mmol/L (3.5-5.1)
--- NOTE | 2018-06-03 10:15 | Gastroenterology Progress Note ---
Date of Service June 03, 2018 Assessment & Plan (1) Weight loss: (2) Esophageal dysmotility: (3) Hiatal hernia: (4) Dysphagia: Pt is a 87 y/o male w c/o weight loss, poor appetite and dysphagia. He does have hx of large hiatal hernia, currently containing majority of stomach and transverse colon on CT scan. Barium study w signs of esophageal dysmotility/ spasm, GERD. He is on Plavix and ASA for hx of PVD, aortic stenosis. Seen by CT Surgery and Cardiology - high risk for hernia repair surgery, per Cardiology recommended repeat echocardiogram and KEVEN prior to surgery. - Consulted Anesthesia for risk assessment prior to EGD - Tenatively plan for EGD eval on 06/05/18. Plaxix held - Protonix 40mg BID - Soft, "slippery" diet - CT Surgery consulted by primary team for possible hiatal hernia repair, appreciate recs. Supervising Physician Co-Signing Physician Notes Late entry: Patient was seen and examined with BIA Estrada on 06/03. Her note reflects our findings and plan. Subjective Pt eating meals well. Did have some trouble with small peas getting slightly stuck but he managed to cough them up. Denies any chest or abdominal pain. Seen by CT Surgery and Cardiology - high risk for hernia repair surgery; recommend KEVEN and repeat Physical Exam 2 Vital Signs (Past 24 Hours): Last Vital Signs Temp 36.3 C L 06/02/18 23:00 Pulse 97 H 06/02/18 23:00 Resp 18 06/02/18 23:00 BP 157/98 H 06/02/18 23:00 Pulse Ox 91 06/02/18 23:00 Constitutional: WD/WN, vitals as above well groomed, cooperative and comfortable Eyes: PERRL, conjunctivae normal, anicteric sclerae ENMT: external ear and nose normal, oropharynx normal Respiratory: normal respiratory effort; no respiratory distress Auscultation: + diminished lung sounds Cardiovascular: Rate/Rhythm: regular rate and regular rhythm Heart Sounds: + murmur; no gallop Gastrointestinal (Abdomen): normal bowel sounds, soft, nontender, no hepatosplenomegaly Skin: no rashes, warm and dry no jaundice Neurologic: Motor/Sensory: no asterixis Psychiatric: A+Ox3, euthymic affect Lymphatic: no lymphedema
--- NOTE | 2018-06-03 10:33 | Surgery Progress Note ---
Date of Service June 03, 2018 Assessment & Plan (1) Hiatal hernia: Discussed with Dr. Wynn. He is high risk with critical aortic stenosis. I believe this patient is a candidate for repair of his hiatal hernia especially given the fact that there is also: Up in the chest. Having said that , his aortic valve will need to be addressed first. We will follow along and I will see him back after his TAVR. (2) Aortic stenosis: Subjective Really no complaints. Sitting up in bed reading the paper. Tolerating a diet without difficulty. He states he did cough up some "peas" last night. He has no abdominal pain and no chest pain. Physical Exam 2 Vital Signs (Past 24 Hours): Last Vital Signs Temp 36.3 C L 06/02/18 23:00 Pulse 97 H 06/02/18 23:00 Resp 18 06/02/18 23:00 BP 157/98 H 06/02/18 23:00 Pulse Ox 91 06/02/18 23:00 Physical Exam: Very loud systolic ejection murmur as one would expect with aortic stenosis. Abdomen is soft. Neurologically is completely intact. He is moving air well without difficulty. He has trace edema with some mild erythema of his lower legs particularly on the right.
[2018-06-03] MEDS ORDERED: PERFLUTREN LIPID MICROSPHERE (DEFINITY) IV ONE (12:17)
--- NOTE | 2018-06-03 15:20 | Hospitalist Progress Note ---
Date of Service June 03, 2018 Assessment & Plan (1) Weight loss: Has been ongoing for a while Was sent in from doctor's office with ongoing symptoms of abdominal discomfort, early satiety and occasional problem with swallowing Barium swallow showed significant esophageal dysmotility Appreciate GI input and recommendation Plavix is on hold and aspirin will be hold 1 day prior to the procedure Noted to have heparin bridge Will have EGD on the (2) Hiatal hernia: -Admit to [facility] -Patient presenting by referral PCP for evaluation of hypotension, weight loss, pallor -In the ED, hemoglobin stable at 14.5 however likely some component of hemoconcentration due to dehydration, creatinine 1.6 (mildly elevated from baseline), and CT ABD/pelvis showing large hiatal hernia contains the majority of the stomach and a portion of the transverse colon -There is no evidence of obstruction or incarcerated hernia on CT, however patient should be evaluated by general surgery or possibly thoracic surgery for further treatment recommendations of large hiatal hernia. An extensive discussion was had with the patient regarding this, however he is declining to be seen by specialists while in the hospital and would like to follow-up with his outpatient primary care provider. -The large hernia is likely attributing to patient's symptoms however he also should be evaluated by GI for possible endoscopy -will provide supportive care with IVF and advance diet as tolerated -Clinically stable and may be feeling a little better -We will advance diet as tolerated -We will get barium swallow while in the hospital and surgical evaluation on Saturday -Was seen by thoracic surgery if any intervention, has to be taken immediately after surgery for the aortic valve -Barium swallow showed significant esophageal dysmotility -GI consulted -General surgery and then thoracic surgery were consulted for evaluation and recommendation regarding use hiatal hernia (3) Furuncle: -Noted behind left ear -Suri Mishra PA-C from the ED was consulted for I&D -Instructions: Packing should be removed tomorrow if it is not removed with dressing changes. Continue warm, moist compresses and may consider gentle massage to continue to aid in drainage, as there was not a significant amount of drainage during the procedure. Bandage with bacitracin and bandage. -No indication for antibiotics at this time -Ulcerated lesion behind left ear does not have any spreading cellulitis -We will advise to change the dressing and take out the pack -Has been better (4) MAXI (acute kidney injury): (5) CKD (chronic kidney disease), stage III: -Baseline creatinine ~1.2 -Noted to be 1.6 today -Elevation likely prerenal secondary to poor p.o. intake -IVF, follow renal functions -Kidney function is much better (6) Renal lesion: -Noted on CT ABD/pelvis -Checking renal US as follow-up -Ultrasound shows cyst in the kidneys and all of the lesions needs to be further evaluated with an MRI of the kidney (7) Hypertension: -BP elevated, likely secondary to recent medication noncompliance -Resume home doses of metoprolol and amlodipine, make adjustments as needed (8) COPD (chronic obstructive pulmonary disease): -No signs of acute exacerbation -Continue home inhalers -No acute symptoms (9) Dyslipidemia: -Continue statin (10) BPH (benign prostatic hypertrophy): -Continue dutasteride and tamsulosin (11) Aortic stenosis: Has significant aortic stenosis Is being evaluated by production supervisor trainee prior to post EGD Will need to have aortic valve replacement/T AVR before any thoracic surgery is undertaken (12) H/O diastolic dysfunction: -Severe aortic stenosis, being monitored as an outpatient for possible TAVR -Monitor volume status closely -Cardiology consulted -Remains stable (13) Peripheral vascular disease: -Continue aspirin and Plavix -Plavix is on hold for proposed EGD on (14) DVT prophylaxis: -SQ heparin The patient will be seen by Dr. Silverman from tomorrow Subjective He is an 87 years old male without significant past medical history except hypertension, hyperlipidemia and benign prostatic hypertrophy was sent in from doctor's office with the poor appetite, weight loss and possible anemia. 05/31 Denies any specific symptoms Feels hungry and wants to eat On asking question admitted to have some problem with swallowing Advised for a barium swallow test and advised for surgical opinion as well Not been agreeable yet 06/02-he was seen by Dr. Silverman on Complains to have discomfort in the abdomen but denies any significant symptoms with swallowing Barium swallow did show significant esophageal dysmotility Denies any shortness of breath, chest pain, palpitation, nausea and/or vomiting Advised for GI evaluation 06/03 Denies any symptoms today Has been tolerating regular diet without any significant symptoms Has been evaluated by GI ,cardiology and thoracic surgery EGD planned on Physical Exam 2 Vital Signs (Past 24 Hours): Last Vital Signs Temp 36.3 C L 06/02/18 23:00 Pulse 97 H 06/02/18 23:00 Resp 18 06/02/18 23:00 BP 157/98 H 06/02/18 23:00 Pulse Ox 91 06/02/18 23:00 Physical Exam: No apparent distress at rest. Sitting on the bed without any symptoms Constitutional: WD/WN, vitals as above Eyes: PERRL, conjunctivae normal, anicteric sclerae ENMT: Ears: no external ear abnormality Nose: + nasal mucous membrane abnormality (Mucous membranes dry); no external nose abnormality Respiratory: normal respiratory effort; no respiratory distress Auscultation: + diminished lung sounds Cardiovascular: Rate/Rhythm: regular rate and regular rhythm Heart Sounds: + murmur (2/6 systolic murmur over aortic area) Vessels: normal peripheral pulses (Diminished pedal pulses) Extremities: + edema (+1 LLE, +2 RLE) Gastrointestinal (Abdomen): normal bowel sounds, soft, nontender, no hepatosplenomegaly Musculoskeletal: no cyanosis or clubbing, extremities motor strength 5/5 Skin: no rashes, warm and dry Neurologic: PERRL, EOMI, accommodation nl, no face palsy, no dysarthria Psychiatric: A+Ox3, euthymic affect Results & Data Laboratory Results Short CBC 06/03/18 Range/Units 07:41 WBC 7.07 (4.8-10.8) K/uL Hgb 12.4 L (14.0-18.0) g/dL Hct 38.5 L (42-52) % Plt Count 161 (130-400) K/uL BMP 06/03/18 07:41 Sodium 139 Potassium 3.7 Chloride 109 H Carbon Dioxide 25 BUN 19 H Creatinine 1.18 Glucose 97 Calcium 7.7 L Medications Administered Current Inpatient Medications Acetaminophen (Tylenol) 650 mg PO Q4H PRN PRN Reason: pain/fever Stop: 06/29/18 17:33 All[facility] ([facility]oprim) [facility] [place] Stop: 06/30/18 08:59 Last Admin: 06/03/18 08:19 Dose: 300 mg Amlodipine Besylate (Norvasc) 2.5 [facility] [place] Stop: 06/29/18 16:59 Last Admin: 06/03/18 08:19 Dose: 2.5 mg Aspirin (Ecotrin Ectab) [facility] [place] Stop: 06/30/18 08:59 Last Admin: 06/03/18 08:17 Dose: 81 mg Atorvastatin Calcium (Lipitor) 40 mg PO QAM [facility] Stop: 06/30/18 08:59 Last Admin: 06/03/18 08:18 Dose: 40 mg Clopidogrel Bisulfate (Plavix) [facility] [place] Stop: 06/30/18 08:59 Last Admin: 06/02/18 07:48 Dose: 75 mg Gabapentin (Neurontin) 300 mg PO TID [facility] Stop: 06/29/18 20:59 Last Admin: 06/03/18 14:42 Dose: 300 mg Heparin Sodium (Porcine) (Heparin Sodium (Porcine)) 5,000 units SQ Q12 [facility] Stop: 07/01/18 20:59 Last Admin: 06/03/18 08:19 Dose: 5,000 units Sodium Chloride (Nss 1000ml) 1,000 mls @ 80 mls/hr IV .[id number] [facility] Stop: 06/29/18 17:59 Last Admin: 06/02/18 20:03 Dose: 80 mls/hr Magnesium Oxide (Mag-Ox) 400 mg PO BID [facility] Stop: 06/29/18 20:59 Last Admin: 06/03/18 08:17 Dose: 400 mg Metoprolol Succinate (Toprol Xl) [facility] [place] Stop: 06/29/18 16:59 Last Admin: 06/03/18 08:16 Dose: 50 mg Miscellaneous (Order Awaiting Action) 1 ea N/A QS [facility] Stop: 06/30/18 00:00 Last Admin: 06/03/18 08:16 Dose: Not Given Miscellaneous (Order Awaiting Action) 1 ea N/A QS [facility] Stop: 06/30/18 00:00 Last Admin: 06/03/18 08:16 Dose: Not Given Miscellaneous (Order Awaiting Action) 1 ea N/A QS [facility] Stop: 06/30/18 00:00 Last Admin: 06/03/18 08:16 Dose: Not Given Pantoprazole Sodium (Protonix) 40 mg PO BID [facility] Stop: 07/02/18 20:59 Last Admin: 06/03/18 08:17 Dose: 40 mg Tamsulosin HCl (Flomax) 0.4 mg PO DAILY [facility] Stop: 06/29/18 17:33 Last Admin: 06/03/18 08:17 Dose: 0.4 mg Tolterodine Tartrate (Detrol La) 4 mg PO DAILY [facility] Stop: 06/29/18 17:33 Last Admin: 06/03/18 08:17 Dose: 4 mg Tramadol HCl (Ultram) 50 - 100 mg PO Q6H PRN PRN Reason: Pain Stop: 06/29/18 17:33
[2018-06-03] MEDS: SODIUM CHLORIDE 0.9% 1000ML 1,000 ML IV SCH (18:38)
[2018-06-04] MEDS: SODIUM CHLORIDE 0.9% 1000ML 1,000 ML IV SCH (07:55)
[2018-06-04] MEDS: METOPROLOL SUCC 50MG EXT REL TAB PO SCH (07:57)
[2018-06-04] MEDS: ALLOPURINOL 300 MG TAB PO SCH (07:57)
[2018-06-04] MEDS: GABAPENTIN 300 MG CAP PO SCH ×3 (07:57→20:29)
[2018-06-04] MEDS: AMLODIPINE BESYLATE 5 MG TAB PO SCH (07:57)
[2018-06-04] MEDS: TAMSULOSIN HCL 0.4 MG CAP PO SCH (07:57)
[2018-06-04] MEDS: PANTOprazole 40 MG TAB PO SCH ×2 (07:57→20:29)
[2018-06-04] MEDS: MAGNESIUM OXIDE 400 MG TAB PO SCH ×2 (07:58→20:29)
[2018-06-04] MEDS: TOLTERODINE TARTRATE LA 4 MG CAPCR PO SCH (07:58)
[2018-06-04] MEDS: ATORVASTATIN 40 MG TAB PO SCH (07:59)
[2018-06-04] MEDS: HEPARIN SOD 5,000 UNIT/0.5 ML VIAL SQ SCH ×2 (09:17→20:29)
[2018-06-04] MEDS: ASPIRIN 81 MG ECTAB PO SCH (09:32)
--- NOTE | 2018-06-04 10:33 | Cardiology Progress Note ---
Date of Service June 04, 2018 Assessment & Plan (1) Esophageal dysmotility: (2) Hiatal hernia: (3) Dysphagia: (4) Weight loss: (5) Furuncle: (6) Aortic stenosis: This is a very difficult situation for this patient who has a history of severe aortic stenosis, coronary artery disease and peripheral vascular disease. The surgery itself will be high risk. Given the other comorbidities of this patient, I think he would be a high risk candidate for a cardiovascular event either during surgery or in the perioperative period. I discussed this with the patient. He has an understanding of his risk. I would recommend that he have his aortic valve secured with a KEVEN prior to proceeding to any operations to repair his hiatal hernia. I will repeat an echocardiogram this admission to compare to his most recent study performed as an outpatient 6 months ago. The patient is to have an EGD completed on Saturday. He is currently tolerating a diet. I do not believe he requires IV fluids at this time. (7) Peripheral vascular disease: (8) CAD (coronary artery disease): Subjective The patient had an uneventful night. No new cardiac complaints. He is tolerating a diet. Physical Exam 2 Vital Signs (Past 24 Hours): Last Vital Signs Temp 36.7 C 06/04/18 07:34 Pulse 91 H 06/04/18 07:34 Resp 20 06/04/18 07:34 BP 150/82 H 06/04/18 07:34 Pulse Ox 94 06/04/18 07:34 Physical Exam: General: no acute distress and stated age Head: normocephalic, no masses, lesions, tenderness or abnormalities Eyes: conjunctiva are pink and non-injected, sclera clear Neck: supple, no adenopathy, no bruits, normal jugular venous pulse, no hepatojugular reflux Chest: normal shape and normal respiratory effort Lungs: clear to auscultation and percussion Cardiac Exam: - regular rate & rhythm, systolic murmur left sternal border- normal S1, normal S2 Pulses: 2(+) throughout Abdomen: abdomen soft, non-tender, no abnormal masses and no hepatosplenomegaly Musculoskeletal: no gait disturbance, no joint inflammation, no deforming arthritis Extremities: no edema and no cyanosis Neuro: grossly normal exam Results & Data Medications Administered Current Inpatient Medications Acetaminophen (Tylenol) 650 mg PO Q4H PRN PRN Reason: pain/fever Stop: 06/29/18 17:33 Allopurinol (Zyloprim) 300 mg PO [facility] Stop: 06/30/18 08:59 Last Admin: 06/04/18 07:57 Dose: 300 mg Amlodipine Besylate (Norvasc) [facility] Stop: 06/29/18 16:59 Last Admin: 06/04/18 07:57 Dose: 2.5 mg Aspirin (Ecotrin Ectab) 81 mg PO [facility] Stop: 06/30/18 08:59 Last Admin: 06/04/18 09:32 Dose: 81 mg Atorvastatin Calcium (Lipitor) 40 mg PO [facility] Stop: 06/30/18 08:59 Last Admin: 06/04/18 07:59 Dose: 40 mg Clopidogrel Bisulfate (Plavix) [facility] Stop: 06/30/18 08:59 Last Admin: 06/02/18 07:48 Dose: 75 mg Gabapentin (Neurontin) 300 mg PO TID [facility] Stop: 06/29/18 20:59 Last Admin: 06/04/18 07:57 Dose: 300 mg Heparin Sodium (Porcine) (Heparin Sodium (Porcine)) 5,000 units SQ Q12 [facility] Stop: 07/01/18 20:59 Last Admin: 06/04/18 09:17 Dose: 5,000 units Magnesium Oxide (Mag-Ox) 400 mg PO BID [facility] Stop: 06/29/18 20:59 Last Admin: 06/04/18 07:58 Dose: 400 mg Metoprolol Succinate (Toprol Xl) 50 mg PO [facility] Stop: 06/29/18 16:59 Last Admin: 06/04/18 07:57 Dose: 50 mg Miscellaneous (Order Awaiting Action) 1 ea N/A QS [facility] Stop: 06/30/18 00:00 Last Admin: 06/04/18 07:55 Dose: Not Given Miscellaneous (Order Awaiting Action) 1 ea N/A QS [facility] Stop: 06/30/18 00:00 Last Admin: 06/04/18 07:55 Dose: Not Given Miscellaneous (Order Awaiting Action) 1 ea N/A QS [facility] Stop: 06/30/18 00:00 Last Admin: 06/04/18 07:55 Dose: Not Given Pantoprazole Sodium (Protonix) 40 mg PO BID [facility] Stop: 07/02/18 20:59 Last Admin: 06/04/18 07:57 Dose: 40 mg Tamsulosin HCl (Flomax) 0.4 mg PO DAILY [facility] Stop: 06/29/18 17:33 Last Admin: 06/04/18 07:57 Dose: 0.4 mg Tolterodine Tartrate (Detrol La) 4 mg PO DAILY [facility] Stop: 06/29/18 17:33 Last Admin: 06/04/18 07:58 Dose: 4 mg Tramadol HCl (Ultram) 50 - 100 mg PO Q6H PRN PRN Reason: Pain Stop: 06/29/18 17:33
--- NOTE | 2018-06-04 17:34 | Hospitalist Progress Note ---
Date of Service June 04, 2018 Assessment & Plan (1) Weight loss: Was sent in from doctor's office with ongoing symptoms of abdominal discomfort, early satiety and occasional problem with swallowing Barium swallow showed significant esophageal dysmotility GI consulted Plavix is on hold and aspirin for EGD tomorrow (2) Hiatal hernia: CT ABD/pelvis showing large hiatal hernia contains the majority of the stomach and a portion of the transverse colon -There is no evidence of obstruction or incarcerated hernia on CT, however patient should be evaluated by general surgery or possibly thoracic surgery for further treatment recommendations of large hiatal hernia. An extensive discussion was had with the patient regarding this, however he is declining to be seen by specialists while in the hospital and would like to follow-up with his outpatient primary care provider. -Barium swallow showed significant esophageal dysmotility -GI consulted - for EGD tomorrow - Thoracic Surgery recommending surgical correction of hiatal hernia after Aortiv Valve Repair (3) Furuncle: per Dr De La Cruz: -Noted behind left ear -Suri Mishra PA-C from the ED was consulted for I&D -Instructions: Packing should be removed tomorrow if it is not removed with dressing changes. Continue warm, moist compresses and may consider gentle massage to continue to aid in drainage, as there was not a significant amount of drainage during the procedure. Bandage with bacitracin and bandage. -No indication for antibiotics at this time -Ulcerated lesion behind left ear does not have any spreading cellulitis advised to change the dressing and take out the pack (4) MAXI (acute kidney injury): (5) CKD (chronic kidney disease), stage III: -Baseline creatinine ~1.2 -Noted to be 1.6 -Elevation likely prerenal secondary to poor p.o. intake given IV NSS, resolved (6) Renal lesion: -Noted on CT ABD/pelvis -Checking renal US as follow-up -Ultrasound shows cyst in the kidneys and all of the lesions needs to be further evaluated with an MRI of the kidney (7) Hypertension: -BP stable -Resume home doses of metoprolol and amlodipine, (8) COPD (chronic obstructive pulmonary disease): -No signs of acute exacerbation -Continue home inhalers -No acute symptoms (9) Dyslipidemia: -Continue statin (10) BPH (benign prostatic hypertrophy): -Continue dutasteride and tamsulosin (11) Aortic stenosis: Has significant aortic stenosis Will need to have aortic valve replacement/T AVR before any thoracic surgery is undertaken (12) H/O diastolic dysfunction: -Severe aortic stenosis, being monitored as an outpatient for possible TAVR -Monitor volume status closely -Cardiology consulted -Remains stable (13) Peripheral vascular disease: -Continue aspirin and Plavix -Plavix is on hold for proposed EGD on (14) DVT prophylaxis: -SQ heparin Subjective resting in bed, comfortable in good spirits states he feels fine overall denies abdominal pain, nausea tolerating diet well (+) normal BMs as per patient no other symptoms Physical Exam 2 Vital Signs (Past 24 Hours): Last Vital Signs Temp 36.5 C 06/04/18 14:43 Pulse 78 06/04/18 14:43 Resp 20 06/04/18 14:43 BP 102/68 06/04/18 14:43 Pulse Ox 96 06/04/18 14:43 Physical Exam: General- oriented x 2, not in distress, speaks in sentences with no effort or accessory muscle use Eyes- anicteric Neck- no JVD Lungs- clear breath sounds bilaterally Heart- normal rate, regular rhythm; no murmurs Abdomen- normal bowel sounds, nondistended, soft, nontender Extremities- trace pretibial edema, no calf tenderness Neuro- alert, oriented x 3; no gross focal neurologic deficits Skin- warm & dry
--- NOTE | 2018-06-05 08:37 | Anesthesiology Consultation ---
Date of Service June 05, 2018 Assessment & Plan (1) Encounter for pre-operative examination: Chart Review Chart Review: Acceptable Risk for Surgery and Patient NOT seen in Pre Admission Testing Consults Requested none ASA ASA4 Proposed Anesthesia Anesthesia Type: MAC NPO Date Last Intake of Fluids: 06/04/18 Time Last Intake of Fluids: 23:00 Date Last Intake of Solids: 06/04/18 Time Last Intake of Solids: 18:00 History Surgery Operation Date: 06/05/18 08:25 Proposed Procedures p Esophagogastroduodenoscopy Dr Fitch - Charlene Fitch Height/Weight Height: 5 ft 11 in Weight: 80 kg Allergies Allergy/AdvReac Type Severity Reaction Status Date / Time morphine Allergy Unknown "out of it Verified 06/05/18 07:57 for days" colchicine AdvReac Mild GI upset Verified 06/05/18 07:57 Reeves And Derivatives AdvReac Unknown STOMACH Verified 06/05/18 07:57 ACHE FROM [employer] tomato AdvReac Unknown HEADACHE Verified 06/05/18 07:57 FROM TOMATO JUICE Medications Home Medications Medication Instructions Recorded Confirmed Last Taken allopurinol 300 mg PO QAM 01/20/18 05/30/18 Unknown amlodipine 2.5 mg PO QAM 01/20/18 05/30/18 Unknown aspirin 81 mg PO QAM 01/20/18 05/30/18 Unknown atorvastatin 40 mg PO QAM 01/20/18 05/30/18 Unknown clopidogrel 75 mg PO QAM 01/20/18 05/30/18 Unknown dutasteride 0.5 mg PO QAM 01/20/18 05/30/18 Unknown gabapentin 300 mg PO TID 01/20/18 05/30/18 05/27/18 metoprolol succinate 50 mg PO QAM 01/20/18 05/30/18 Unknown mirabegron [Myrbetriq] 50 mg PO DAILY 01/20/18 05/30/18 Unknown pantoprazole 20 mg PO DAILY 01/20/18 05/30/18 Unknown tolterodine 4 mg PO DAILY 01/20/18 05/30/18 Unknown tramadol 50 - 100 mg PO Q6H PRN 01/20/18 05/30/18 Unknown ipratropium-albuterol [Combivent 1 puff INHALATION QID PRN 05/30/18 05/30/18 Unknown Respimat] magnesium oxide 400 mg PO BID 05/30/18 05/30/18 Unknown mometasone [Asmanex Twisthaler] 2 inh INHALATION BID 05/30/18 05/30/18 Unknown tamsulosin 0.4 mg PO DAILY 05/30/18 05/30/18 Unknown Active Medications Generic Name Dose Route Start Last Admin Trade Name Drewq PRN Reason Stop Dose Admin Allopurinol 300 mg 05/31/18 09:00 06/04/18 07:57 Zyloprim PO 06/30/18 08:59 300 mg QAM [facility] Administration Amlodipine Besylate 2.5 mg 05/30/18 17:00 06/04/18 07:57 Norvasc PO 06/29/18 16:59 2.5 mg QAM [facility] Administration Aspirin 81 mg 05/31/18 09:00 06/04/18 09:32 Ecotrin Ectab PO 06/30/18 08:59 81 mg QAM [facility] Administration Atorvastatin Calcium 40 mg 05/31/18 09:00 06/04/18 07:59 Lipitor PO 06/30/18 08:59 40 mg QAM [facility] Administration Clopidogrel Bisulfate 75 mg 05/31/18 09:00 06/02/18 07:48 Plavix PO 06/30/18 08:59 75 mg QAM [facility] Administration Gabapentin 300 mg 05/30/18 21:00 06/04/18 20:29 Neurontin PO 06/29/18 20:59 300 mg TID [facility] Administration Heparin Sodium (Porcine) 5,000 units 06/01/18 21:00 06/04/18 20:29 Heparin Sodium (Porcine) SQ 07/01/18 20:59 5,000 units Q12 [facility] Administration Magnesium Oxide 400 mg 05/30/18 21:00 06/04/18 20:29 Mag-Ox PO 06/29/18 20:59 400 mg BID [facility] Administration Metoprolol Succinate 50 mg 05/30/18 17:00 06/04/18 07:57 Toprol Xl PO 06/29/18 16:59 50 mg QAM [facility] Administration Pantoprazole Sodium 40 mg 06/02/18 21:00 06/04/18 20:29 Protonix PO 07/02/18 20:59 40 mg BID [facility] Administration Tamsulosin HCl 0.4 mg 05/30/18 17:34 06/04/18 07:57 Flomax PO 06/29/18 17:33 0.4 mg DAILY [facility] Administration Tolterodine Tartrate 4 mg 05/30/18 17:34 06/04/18 07:58 Detrol La PO 06/29/18 17:33 4 mg DAILY [facility] Administration Past Medical History Medical History Urinary incontinence (Chronic) COPD (chronic obstructive pulmonary disease) (Chronic) Hypertension (Chronic) Gout (Chronic) CKD (chronic kidney disease), stage III (Chronic) Osteoporosis (Chronic) Psoriatic arthritis (Chronic) Dyslipidemia (Chronic) Aortic stenosis (Chronic) "echo 02/2017 - severe " On 03/21/15 18:55 Angela Jaramillo wrote "moderate" Tobacco abuse (Resolved) H/O atrial flutter (Chronic) "occurred postoperatively in 01/2014, converted to sinus rhythm with IV diltiazem" Nocturnal hypoxemia (Chronic) History of duodenal ulcer (Chronic) H/O diastolic dysfunction (Chronic) "grade I per echo 02/2017" On 03/21/15 19:09 Angela Jaramillo wrote "grade I per echo 01/2014" BPH (benign prostatic hypertrophy) (Chronic) Volvulus of stomach (Resolved) Neuropathy (Chronic) Peripheral vascular disease (Chronic) s/p angioplasty of right posterior tibial artery Past Family History Family History Other Family history non-contributory Past Surgical History Surgical History History of back surgery (Chronic) History of lithotripsy Social History Smoking Status: Former smoker Smoking End Date: > 40 years ago Hx Alcohol Use: No Hx Substance Use: No Physical Exam Vital Signs Last Vital Signs Temp 35.4 C L 06/05/18 08:01 Pulse 87 06/05/18 08:01 Resp 18 06/05/18 08:01 BP 137/91 06/05/18 08:22 Pulse Ox 97 06/05/18 08:01 Testing Laboratory Results 06/03/18 07:41 06/03/18 07:41 PT 11.3 Seconds (9.0-12.0) 05/31/18 14:10 INR 1.1 (0.9-1.1) 05/31/18 14:10 APTT 28.1 Seconds (21.0-31.0) 05/30/18 18:38 Urine Color Yellow 05/31/18 06:40 Urine Appearance Clear (Clear) 05/31/18 06:40 Urine pH 5.0 (4.5-7.5) 05/31/18 06:40 Ur Specific [place] 1.019 (1.000-1.030) 05/31/18 06:40 Urine Protein Negative (Negative) 05/31/18 06:40 Urine Glucose (UA) Negative (Negative) 05/31/18 06:40 Urine Ketones Negative (Negative) 05/31/18 06:40 Urine Nitrite Negative (Negative) 05/31/18 06:40 Ur Leukocyte Esterase Negative (Negative) 05/31/18 06:40
[2018-06-05] MEDS ORDERED: ATROPINE SULFATE 0.1 MG/ML 10ML SYR IV PRN ×2 (08:41→08:51)
[2018-06-05] MEDS ORDERED: ePHEDrine sulfate 50 MG/ML AMP IV PRN ×2 (08:41→08:51)
--- NOTE | 2018-06-05 08:44 | History & Physical Bridge Note ---
Date of Service June 05, 2018 History & Physical Bridge Note Pt is a 87 y/o male w intermittent dysphagia, hx of large hiatal hernia containing majority of stomach and transverse colon on CT scan. Barium study w signs of esophageal dysmotility/spasm, GERD. He is on Plavix and ASA for hx of PVD, aortic stenosis. Seen by CT Surgery and Cardiology - high risk for hernia repair surgery, per Cardiology recommended repeat echocardiogram and KEVEN prior to surgery. VS, Labs reviewed. Pt at pre-endoscopy holding area. He had been PO after midnight. Plavix held x 3 days. He is to undergo EGD evaluation today. GI will give further recs after EGD is completed. Supervising Physician Co-Signing Physician Notes I have seen and examined the patient with BIA Urban whose note reflects our findings and plan.
[2018-06-05] MEDS ORDERED: MYRBETRIQ PO SCH (09:00)
[2018-06-05] MEDS ORDERED: NON-FORMULARY PATIENT'S OWN MED PO SCH (09:00)
[2018-06-05] MEDS ORDERED: MOMETASONE FUROATE 14 PUFF/1 INHALER INH SCH (09:00)
[2018-06-05] MEDS ORDERED: KETAMINE HCL INJ 50 MG/ML 10 ML VIAL ONE (09:34)
[2018-06-05] MEDS ORDERED: LIDOCAINE HCL 2% 2 ML VIAL/AMP(20MG/ML) INFIL ONE (09:34)
[2018-06-05] MEDS ORDERED: PROPOFOL IV EMULSION 10 MG/ML 20 ML VIAL IV ONE (09:34)
--- NOTE | 2018-06-05 10:14 | GI REPORT ---
Patient Name: Marlo Jones Procedure Date: 06/05/2018 9:40 AM Date of : 1930 Admit Type: Inpatient Age: 87 Gender: Male Attending MD: Charlene Fitch DO Procedure: Upper GI endoscopy Providers: Charlene Fitch DO Referring MD: Blake Silverman Indications: Epigastric abdominal pain, Hiatal hernia Medicines: Propofol per Anesthesia Complications: No immediate complications. Estimated blood loss: None. Estimated Blood Loss: Estimated blood loss: none. Procedure: Pre-Anesthesia Assessment: - Prior to the procedure, a History and Physical was performed, and patient medications, allergies and sensitivities were reviewed. The patient's tolerance of previous anesthesia was reviewed. - The risks and benefits of the procedure and the sedation options and risks were discussed with the patient. All questions were answered and informed consent was obtained. - Patient identification and proposed procedure were verified prior to the procedure by the physician and the nurse. The procedure was verified in the pre-procedure area in the procedure room. - Mental Status Examination: alert and oriented. Airway Examination: normal oropharyngeal airway and neck mobility. Respiratory Examination: clear to auscultation. CV Examination: normal. Abdominal Examination: bowel sounds present, abdomen soft and non-tender, no masses or organomegaly noted. - ASA Grade Assessment: IV - A patient with severe systemic disease that is a constant threat to life. After obtaining informed consent, the endoscope was passed under direct vision. Throughout the procedure, the patient's blood pressure, pulse, and oxygen saturations were monitored continuously. The Scope was introduced through the mouth, and advanced to the second part of duodenum. The upper GI endoscopy was accomplished without difficulty. The patient tolerated the procedure well. Findings: The examined esophagus was moderately tortuous. A large hiatal hernia was present. The examined duodenum was normal. Impression: - Tortuous esophagus. - Large hiatal hernia. - Normal examined duodenum. - No specimens collected. Recommendation: - Return patient to [facility] for ongoing care. Jeannie Brandon DO 06/05/2018 10:14:17 AM This report has been signed electronically. Note Initiated On: 06/05/2018 9:40 AM Number of Addenda: 0 I attest to the content of the Intraoperative Record and orders documented therein, exceptions below {[id number]}
--- NOTE | 2018-06-05 11:09 | Progress Note ---
DATE: 06/05/2018 Mr. Jones was seen today. He really does not have much in the way of complaints. The esophagus was a bit tortuous on the endoscopy by Dr. Fitch today. He does have a large hiatal hernia, but at this point I think that his heart is going to take precedence over doing anything with this hiatal hernia. His aortic stenosis is severe.
[2018-06-05] MEDS: TOLTERODINE TARTRATE LA 4 MG CAPCR PO SCH (11:27)
[2018-06-05] MEDS: GABAPENTIN 300 MG CAP PO SCH ×2 (11:27→14:03)
[2018-06-05] MEDS: METOPROLOL SUCC 50MG EXT REL TAB PO SCH (11:27)
[2018-06-05] MEDS: AMLODIPINE BESYLATE 5 MG TAB PO SCH (11:27)
[2018-06-05] MEDS: PANTOprazole 40 MG TAB PO SCH (11:27)
[2018-06-05] MEDS: ALLOPURINOL 300 MG TAB PO SCH (11:27)
[2018-06-05] MEDS: TAMSULOSIN HCL 0.4 MG CAP PO SCH (11:28)
[2018-06-05] MEDS: ASPIRIN 81 MG ECTAB PO SCH (11:28)
[2018-06-05] MEDS: MAGNESIUM OXIDE 400 MG TAB PO SCH (11:28)
[2018-06-05] MEDS: HEPARIN SOD 5,000 UNIT/0.5 ML VIAL SQ SCH (11:28)
[2018-06-05] MEDS: ATORVASTATIN 40 MG TAB PO SCH (11:29)
--- NOTE | 2018-06-05 15:15 | Anesthesiology Progress Note ---
Date of Service June 05, 2018 Anesthesia Post Procedure Vital Signs Vital Signs: Temp Pulse Pulse Resp BP BP Pulse Ox 06/05/18 11:23 36.4 C L 83 20 163/89 H 95 06/05/18 10:33 89 18 166/116 H 97 06/05/18 10:18 87 18 164/104 H 96 06/05/18 10:03 82 20 157/100 H 98 06/05/18 08:22 137/91 06/05/18 08:01 35.4 C L 87 87 18 159/135 H 97 06/04/18 22:58 36.8 C 72 18 146/96 H 97 Pain Intensity Left Neck: Pain Intensity: 3 Notes Mental Status: alert / awake / arousable Patient Amnestic to Procedure: Yes Nausea / Vomiting: adequately controlled Pain: adequately controlled Airway Patency, RR, SpO2: stable & adequate BP & HR: stable & adequate Hydration State: stable & adequate Anesthetic Complications: no major complications apparent and Pt Satisfied with anesthetic care
--- NOTE | 2018-06-05 15:17 | Hospitalist Progress Note ---
Date of Service June 05, 2018 Assessment & Plan (1) Weight loss: Was sent in from doctor's office with ongoing symptoms of abdominal discomfort, early satiety and occasional problem with swallowing Barium swallow: IMPRESSION: 1. Severe esophageal dysmotility/spasm. 2. Hiatal hernia. 3. Moderate gastroesophageal reflux. GI consulted s/p EGD by Dr. Fitch 06/05/18 Findings: The examined esophagus was moderately tortuous. A large hiatal hernia was present. The examined duodenum was normal. Impression: - Tortuous esophagus. - Large hiatal hernia. - Normal examined duodenum. -- continue PPI (2) Hiatal hernia: CT ABD/pelvis showing large hiatal hernia contains the majority of the stomach and a portion of the transverse colon -There is no evidence of obstruction or incarcerated hernia on CT, however patient should be evaluated by general surgery or possibly thoracic surgery for further treatment recommendations of large hiatal hernia. An extensive discussion was had with the patient regarding this, however he is declining to be seen by specialists while in the hospital and would like to follow-up with his outpatient primary care provider. -Barium swallow showed significant esophageal dysmotility - s/p EGD as noted above - Thoracic Surgery recommending surgical correction of hiatal hernia after Aortiv Valve Repair will need to follow up with [facility] Cardiology re: KEVEN, then Thoracic Surgeon from [facility] Dr. Tracy - Speech Therapist Recommendations Slippery soft diet Choose foods that are moist, loose, slippery; avoid foods that are doughy, sticky, pasty, thick; add liquids and condiments to food to make them more slippery as needed Alternate solids and liquids Small frequent meals Stay upright with meals for at least 30 minutes (3) Furuncle: per Dr De La Cruz: -Noted behind left ear -Suri Mishra PA-C from the ED was consulted for I&D -Instructions: Packing should be removed tomorrow if it is not removed with dressing changes. Continue warm, moist compresses and may consider gentle massage to continue to aid in drainage, as there was not a significant amount of drainage during the procedure. Bandage with bacitracin and bandage. -No indication for antibiotics at this time -Ulcerated lesion behind left ear does not have any spreading cellulitis - packing has been removed (4) MAXI (acute kidney injury): (5) CKD (chronic kidney disease), stage III: -Baseline creatinine ~1.2 -Noted to be 1.6 -Elevation likely prerenal secondary to poor p.o. intake given IV NSS, resolved (6) Renal lesion: -Noted on CT ABD/pelvis - Renal US: IMPRESSION: (full report in the procedure section) 1. Bilateral renal cysts. 2. There is also a 2.7 cm cyst within the right kidney which favors a complex cyst. However, dedicated nonemergent renal MRI is recommended to exclude a solid lesion. - renal MRI as outpatient (7) Hypertension: -BP stable -continue metoprolol and amlodipine, (8) COPD (chronic obstructive pulmonary disease): -No signs of acute exacerbation -Continue home inhalers -No acute symptoms (9) Dyslipidemia: -Continue statin (10) BPH (benign prostatic hypertrophy): -Continue dutasteride and tamsulosin (11) Aortic stenosis: Has significant aortic stenosis Will need to have aortic valve replacement/TAVR before any thoracic surgery is undertaken (12) H/O diastolic dysfunction: -Severe aortic stenosis, being monitored as an outpatient for possible TAVR -Cardiology consulted -Remains stable (13) Peripheral vascular disease: -Continue aspirin and Plavix (14) Abnormal finding on CT scan: Full report in the procedure section: IMPRESSION: 1. Large hiatal hernia contains the majority of the stomach and a portion of the transverse colon. No evidence of gastric outlet obstruction. 2. No bowel obstruction or focal bowel wall thickening. 3. Colonic diverticulosis without acute diverticulitis. 4. Prostamegaly with circumferential wall thickening of the bladder suggestive of chronic urinary bladder outlet obstruction and/or cystitis. Correlate with urinalysis. 5. Nonobstructing bilateral nephrolithiasis. 6. Moderate right renal atrophy with multifocal cortical scarring. 7. 2.5 cm superior pole and 1.1 cm inferior pole mildly hyperdense lesions about the right kidney are indeterminate. Proteinaceous or hemorrhagic cysts on the primary differential considerations with renal neoplasm considered less likely. Correlation with renal ultrasound recommended. 8. Cholelithiasis. 9. Laminectomy with posterior interbody anne-marie and screw fusion at L4-S1. The right L4 pedicle screw extends into the L3-L4 disc space and demonstrates circumferential lucency suggestive of loosening. 10. Additional findings as above. -- further management and follow up as outpatient (15) DVT prophylaxis: -SQ heparin Disposition patient has declined to transition to Rehab/SNF risks involved including high risks for falls, injuries discussed with patient at length he verbalized understanding and he still would like to go home with home health PT ff up with PCP 06/11 ff up with Ekg Technician in 1-2 weeks will need to ff up with Thoracic Surgery after Aortic Valve Repair Subjective ff up for weight loss, hiatal hernia seen resting in bedside chair, comfortable states he feels fine overall s/p EGD today tolerated well denies abdominal pain,nausea, dysphagia tolerating diet well no other symptoms Physical Exam 2 Vital Signs (Past 24 Hours): Last Vital Signs Temp 36.4 C L 06/05/18 11:23 Pulse 83 06/05/18 11:23 Resp 20 06/05/18 11:23 BP 163/89 H 06/05/18 11:23 Pulse Ox 95 06/05/18 11:23 Physical Exam: General- oriented x 2, not in distress, speaks in sentences with no effort or accessory muscle use Eyes- anicteric Neck- no JVD Lungs- clear breath sounds bilaterally no crackles no wheezing Heart- normal rate, regular rhythm; systolic murmur Abdomen- normal bowel sounds, nondistended, soft, nontender Extremities- trace pretibial edema, no calf tenderness Neuro- alert, oriented x 2; no gross focal neurologic deficits Skin- warm & dry
--- NOTE | 2018-06-05 15:54 | Discharge Summary ---
Date of Service June 05, 2018 Admission HPI Per Admitting Provider 87-year-old male who presents the ED by referral PCP for evaluation of weight loss and poor appetite. Patient reports he has noticed a decline in his overall health for the past several months, however reports over the past couple weeks she has had a very poor appetite. He notes a 20 pound weight loss for the past 2 months. He reports generalized weakness. He has had nausea but denies abdominal pain, vomiting, dark tarry stools, bright bleeding per rectum. He was having diarrhea and was tested as an outpatient for C. difficile which was negative on 05/12. Patient denies chest pain or shortness of breath. No lightheadedness, dizziness, diaphoresis, syncopal events. He has chronic lower extremity edema, right greater than left which is unchanged from baseline. There is a healed wound noted to the right anterior wayne with some surrounding pinkness, unchanged from baseline. He reports chronic urinary incontinence and urgency which is unchanged from baseline. Has a small raised, tender area behind the left ear which he reports developed a couple of days ago. He denies any drainage from the area. No fevers or chills. In the ED, creatinine is found to be 1.6 (baseline ~ 1.2). CT ABD/pelvis is showing large hiatal hernia contains the majority of the stomach and a portion of the transverse colon. Patient was given IVF. Admission Exam Per Admitting Provider Vital Signs (Past 24 Hours): Last Vital Signs Temp 36.3 C L 05/30/18 12:39 Pulse 108 H 05/30/18 16:01 Resp 18 05/30/18 14:00 BP 171/129 H 05/30/18 16:01 Pulse Ox 96 05/30/18 16:01 Constitutional: WD/WN, vitals as above Eyes: PERRL, conjunctivae normal, anicteric sclerae ENMT: Ears: no external ear abnormality Nose: + nasal mucous membrane abnormality (Mucous membranes dry); no external nose abnormality Respiratory: normal respiratory effort; no respiratory distress Auscultation: + diminished lung sounds Cardiovascular: Rate/Rhythm: regular rate and regular rhythm Vessels: normal peripheral pulses (Diminished pedal pulses) Extremities: + edema (+1 LLE , +2 RLE) Gastrointestinal (Abdomen): normal bowel sounds, soft, nontender, no hepatosplenomegaly Musculoskeletal: no cyanosis or clubbing, extremities motor strength 5/5 Skin: no rashes, warm and dry Dime sized raised, tender area noted behind the left ear -mild surrounding erythema, no drainage Healed wound noted to right anterior wayne, surrounding pinkness (chronic per patient) Neurologic: PERRL, EOMI, accommodation nl, no face palsy, no dysarthria Psychiatric: A+Ox3, euthymic affect Principal Diagnosis LARGE HIATAL HERNIA Discharge Exam Vital Signs (Past 24 Hours): Last Vital Signs Temp 36.4 C L 06/05/18 11:23 Pulse 83 06/05/18 11:23 Resp 20 06/05/18 11:23 BP 163/89 H 06/05/18 11:23 Pulse Ox 95 06/05/18 11:23 Physical Exam: General- oriented x 2, not in distress, speaks in sentences with no effort or accessory muscle use Eyes- anicteric Neck- no JVD Lungs- clear breath sounds bilaterally no crackles no wheezing Heart- normal rate, regular rhythm; systolic murmur Abdomen- normal bowel sounds, nondistended, soft, nontender Extremities- trace pretibial edema, no calf tenderness Neuro- alert, oriented x 2; no gross focal neurologic deficits Skin- warm & dry Discharge Data Allergies Allergy/AdvReac Type Severity Reaction Status Date / Time morphine Allergy Unknown "out of it Verified 06/05/18 07:57 for days" colchicine AdvReac Mild GI upset Verified 06/05/18 07:57 [place] [employer]atives AdvReac Unknown STOMACH Verified 06/05/18 07:57 ACHE FROM [facility] tomato AdvReac Unknown HEADACHE Verified 06/05/18 07:57 FROM [facility] Consultations 05/30/18 14:56 ED Decision to Admit Stat 05/30/18 17:34 Consult Case Management - Discharge Planning Routine 06/02/18 08:08 Consult General Surgery Routine 06/02/18 09:42 Consult Thoracic Surgery Routine 06/02/18 14:38 Consult Gastroenterology Routine 06/02/18 15:42 Consult Anesthesiology Routine Consult Cardiology Routine Procedures Performed Operation Date: 06/05/18 08:25 Actual Procedures p Esophagogastroduodenoscopy(Not Applicable) - Charlene Fitch Findings: The examined esophagus was moderately tortuous. A large hiatal hernia was present. The examined duodenum was normal. Impression: - Tortuous esophagus. - Large hiatal hernia. - Normal examined duodenum. - No specimens collected. Recommendation: - Return patient to [facility] for ongoing care. Ordered Studies 05/30/18 13:17 CT abd pelvis wo con Stat ABDOMEN AND PELVIS CT WITHOUT CONTRAST CT DOSE: 1098.04 mGycm HISTORY: Acute upper abdominal pain with weight loss and anemia upper abd pain , weight loss, anemia TECHNIQUE: Multiaxial CT images of the abdomen and pelvis were performed without contrast. A dose lowering technique was utilized adhering to the principles of ALARA. COMPARISON STUDY: Chest CT 11/11/2008, renal ultrasound 02/21/2014, lumbar spine radiographs 12/17/2016. FINDINGS: Calcified pleural plaques with calcified granulomata noted about the lung bases. Bibasilar linear subsegmental pleural based consolidative and groundglass densities suggest atelectasis/scarring. There is no pneumatosis or pneumoperitoneum identified. The imaged inferior cardiac chambers are unremarkable. Coronary arterial and aortic annular calcifications are noted. Trace pericardial effusion. Mild hepatic steatosis. Indeterminate ill-defined mildly hypodense lesion about the subserosal inferior right hepatic lobe measures 1.3 cm. Suggested cyst of the hepatic dome measures 1.2 cm. Scattered calcified granulomata noted about the spleen. Moderate generalized pancreatic atrophy. The adrenal glands appear to be unremarkable. Cholelithiasis without CT evidence of acute cholecystitis. Nonspecific bilateral perinephric stranding. Punctate and 4 mm nonobstructing calculi noted about the inferior pole left kidney. 2.2 cm cyst of the inferior pole left kidney is also noted. Moderate atrophy with multifocal cortical scarring about the right kidney. 7 mm nonobstructing calculus of the inferior pole right kidney. There is a mildly hyperdense ovoid circumscribed 1.1 cm lesion noted about the inferior pole right kidney with 2.4 x 1.8 cm mildly hyperdense lesion of the superior pole right kidney also noted. Right renal cysts measure up to 4.4 cm. Renal vascular calcifications are noted without ureteral calculi or obstructive uropathy. Partial distention of the urinary bladder with moderate circumferential wall thickening. Prostamegaly. Extensive calcification about the abdominal aorta with mild fusiform ectasia measuring 2.9 x 2.5 cm about the infrarenal segment. No adenopathy. Large hiatal hernia with majority of the stomach and the thoracic cavity. The gastroesophageal junction is outside the [id number]. Hiatal hernia contains a portion of the transverse colon as well. No small bowel obstruction. Colonic diverticulosis without acute diverticulitis. Normal appendix. No definite bowel wall thickening. Small fat filled periumbilical hernia, diastases 1.2 cm. Partially imaged lipoma about the left rectus femoris musculature measures up to 4.2 x 1.9 cm. Sclerotic foci about the right suprapubic ramus suggest bone islands. Laminectomy changes with posterior interbody anne-marie and screw fusion at L4 -S1. Remote compression deformity about L5 with unchanged anterolisthesis L4 on L5 and L5 on S1. The right L4 pedicle screw extends into the L3-L4 disc space and demonstrates mild surrounding lucency. IMPRESSION: 1. Large hiatal hernia contains the majority of the stomach and a portion of the transverse colon. No evidence of gastric outlet obstruction. 2. No bowel obstruction or focal bowel wall thickening. 3. Colonic diverticulosis without acute diverticulitis. 4. Prostamegaly with circumferential wall thickening of the bladder suggestive of chronic urinary bladder outlet obstruction and/or cystitis. Correlate with urinalysis. 5. Nonobstructing bilateral nephrolithiasis. 6. Moderate right renal atrophy with multifocal cortical scarring. 7. 2.5 cm superior pole and 1.1 cm inferior pole mildly hyperdense lesions about the right kidney are indeterminate. Proteinaceous or hemorrhagic cysts on the primary differential considerations with renal neoplasm considered less likely. Correlation with renal ultrasound recommended. 8. Cholelithiasis. 9. Laminectomy with posterior interbody anne-marie and screw fusion at L4-S1. The right L4 pedicle screw extends into the L3-L4 disc space and demonstrates circumferential lucency suggestive of loosening. 10. Additional findings as above. 05/30/18 17:34 US renal/blad retro comp Routine RENAL ULTRASOUND HISTORY: f/u renal lesions on CT scan COMPARISON: Abdomen and pelvis CT 05/30/2018. FINDINGS: Right kidney: 10.9 cm. No hydronephrosis. Severe cortical thinning. Multiple cysts identified within the right kidney. The largest interpolar cyst is septated and measures 5 cm. There is a complex upper pole lesion measuring 2.7 cm with internal echoes. Therefore, this could represent a complex cyst are partially solid lesion. Left kidney: 12.4 cm. No hydronephrosis. Mild cortical thinning. There is a 2.8 cm cyst. Bladder: Not well distended and therefore not well evaluated. IMPRESSION: 1. Bilateral renal cysts. 2. There is also a 2.7 cm cyst within the right kidney which favors a complex cyst. However, dedicated nonemergent renal MRI is recommended to exclude a solid lesion. 06/01/18 17:19 US venous doppler LE RT Stat RIGHT LOWER EXTREMITY VENOUS DOPPLER CLINICAL HISTORY: Right leg pain. COMPARISON STUDY: Right lower extremity venous Doppler November 22, 2017. TECHNIQUE: Sonography of the deep venous system of the right lower extremity was performed. Compression and augmentation were evaluated. FINDINGS: The right common femoral, superficial femoral and popliteal veins were compressible. Augmentation was normal. Flow was shown within the deep calf vessels. IMPRESSION: No evidence of deep venous thrombus within the right lower extremity. 06/02/18 13:00 FL barium swallow Routine FL barium swallow CLINICAL HISTORY: R/O obstruction,Dysphagiadysphagia COMPARISON STUDY: None FLUOROSCOPY TIME: 1.1 minutes NUMBER OF FLUOROSCOPIC IMAGES: 15 FINDINGS: Severe esophageal dysmotility and/or spasm. Hiatal hernia. Moderate gastroesophageal reflux. IMPRESSION: 1. Severe esophageal dysmotility/spasm. 2. Hiatal hernia. 3. Moderate gastroesophageal reflux. Hospital Course (1) Weight loss: Was sent in from doctor's office with ongoing symptoms of abdominal discomfort, early satiety and occasional problem with swallowing Barium swallow: IMPRESSION: 1. Severe esophageal dysmotility/spasm. 2. Hiatal hernia. 3. Moderate gastroesophageal reflux. GI consulted s/p EGD by Dr. Fitch 06/05/18 Findings: The examined esophagus was moderately tortuous. A large hiatal hernia was present. The examined duodenum was normal. Impression: - Tortuous esophagus. - Large hiatal hernia. - Normal examined duodenum. -- continue PPI Slippery Soft sidet (2) Hiatal hernia: CT ABD/pelvis showing large hiatal hernia contains the majority of the stomach and a portion of the transverse colon -There is no evidence of obstruction or incarcerated hernia on CT, however patient should be evaluated by general surgery or possibly thoracic surgery for further treatment recommendations of large hiatal hernia. An extensive discussion was had with the patient regarding this, however he is declining to be seen by specialists while in the hospital and would like to follow-up with his outpatient primary care provider. -Barium swallow showed significant esophageal dysmotility - s/p EGD as noted above - Thoracic Surgery recommending surgical correction of hiatal hernia after Aortiv Valve Repair will need to follow up with [facility] Cardiology re: KEVEN, then Thoracic Surgeon from [facility] Dr. Tracy - Speech Therapist Recommendations Slippery soft diet Choose foods that are moist, loose, slippery; avoid foods that are doughy, sticky, pasty, thick; add liquids and condiments to food to make them more slippery as needed Alternate solids and liquids Small frequent meals Stay upright with meals for at least 30 minutes (3) Furuncle: per Dr De La Cruz: -Noted behind left ear -Suri Mishra PA-C from the ED was consulted for I&D -Instructions: Packing should be removed tomorrow if it is not removed with dressing changes. Continue warm, moist compresses and may consider gentle massage to continue to aid in drainage, as there was not a significant amount of drainage during the procedure. Bandage with bacitracin and bandage. -No indication for antibiotics at this time -Ulcerated lesion behind left ear does not have any spreading cellulitis - packing has been removed (4) MAXI (acute kidney injury): (5) CKD (chronic kidney disease), stage III: -Baseline creatinine ~1.2 -Noted to be 1.6 -Elevation likely prerenal secondary to poor p.o. intake given IV NSS, resolved (6) Renal lesion: -Noted on CT ABD/pelvis - Renal US: IMPRESSION: (full report in the procedure section) 1. Bilateral renal cysts. 2. There is also a 2.7 cm cyst within the right kidney which favors a complex cyst. However, dedicated nonemergent renal MRI is recommended to exclude a solid lesion. - renal MRI as outpatient (7) Hypertension: -BP stable -continue metoprolol and amlodipine, (8) COPD (chronic obstructive pulmonary disease): -No signs of acute exacerbation -Continue home inhalers -No acute symptoms (9) Dyslipidemia: -Continue statin (10) BPH (benign prostatic hypertrophy): -Continue dutasteride and tamsulosin (11) Aortic stenosis: Has significant aortic stenosis Will need to have aortic valve replacement/TAVR before any thoracic surgery is undertaken (12) H/O diastolic dysfunction: -Severe aortic stenosis, being monitored as an outpatient for possible TAVR -Cardiology consulted -Remains stable (13) Peripheral vascular disease: -Continue aspirin and Plavix (14) Abnormal finding on CT scan: Full report in the procedure section: IMPRESSION: 1. Large hiatal hernia contains the majority of the stomach and a portion of the transverse colon. No evidence of gastric outlet obstruction. 2. No bowel obstruction or focal bowel wall thickening. 3. Colonic diverticulosis without acute diverticulitis. 4. Prostamegaly with circumferential wall thickening of the bladder suggestive of chronic urinary bladder outlet obstruction and/or cystitis. Correlate with urinalysis. 5. Nonobstructing bilateral nephrolithiasis. 6. Moderate right renal atrophy with multifocal cortical scarring. 7. 2.5 cm superior pole and 1.1 cm inferior pole mildly hyperdense lesions about the right kidney are indeterminate. Proteinaceous or hemorrhagic cysts on the primary differential considerations with renal neoplasm considered less likely. Correlation with renal ultrasound recommended. 8. Cholelithiasis. 9. Laminectomy with posterior interbody anne-marie and screw fusion at L4-S1. The right L4 pedicle screw extends into the L3-L4 disc space and demonstrates circumferential lucency suggestive of loosening. 10. Additional findings as above. -- further management and follow up as outpatient (15) DVT prophylaxis: -SQ heparin Disposition patient has declined to transition to Rehab/SNF risks involved including high risks for falls, injuries discussed with patient at length he verbalized understanding and he still would like to go home with home health PT ff up with PCP 06/11 ff up with Assistant News Director in 1-2 weeks will need to ff up with Thoracic Surgery after Aortic Valve Repair Total Time Total Time Spent Total Time Spent (In Minutes): 45 minutes Discharge Plan Discharge Items Patient Disposition: Home - Home Health Services Reason For Visit: MAXI,WEIGHT LOSS Discharge Diagnosis: LARGE HIATAL HERNIA Discharge Goals: Diagnostic testing and Therapeutic intervention Activity: As commented below Activity Comment: ALWAYS AMBULATE WITH THE WALKER CAREFULLY, FALL PRECAUTIONS, CONTINUE PT/OT Lifting: Wait until after follow-up appointment Exercise/Sports: Wait until after follow-up appointment Driving/Machine Use Comment: NO DRIVING Non-emergency contact: Primary Care Provider Call non-emergency contact if: you have any medication questions, your symptoms worsen, your pain is not controlled, your pain is worsening, your pain is unusual for you and your pain is concerning for you Follow-up/Referrals: Patrick Albarran [Primary Care Provider] - 06/11/18 3:15 pm Diet: Heart Healthy Diet Comment: Please follow Speech Therapist recommendations noted below. Addtl Provider Instructions: Follow up with Dr. Albarran as scheduled above. Follow up with [facility] Assistant News Director in 1-2 weeks. Call Primary Care Physician or return to the ER immediately if with recurrence/ worsening of symptoms. Speech Therapist Recommendations Slippery soft diet Choose foods that are moist, loose, slippery; avoid foods that are doughy, sticky, pasty, thick; add liquids and condiments to food to make them more slippery as needed Alternate solids and liquids Small frequent meals Stay upright with meals for at least 30 minutes Prescriptions: New pantoprazole 40 mg Tablet,Delayed Release (Dr/Ec) 40 mg PO BID 30 Days Qty: 60 RF: 1 Continue tamsulosin 0.4 mg capsule 0.4 mg PO DAILY RF: 0 mometasone [Asmanex Twisthaler] 220 mcg (120 doses) Aerosol Powdr Breath Activated 2 inh INHALATION BID RF: 0 magnesium oxide 400 mg Capsule 400 mg PO BID RF: 0 ipratropium-albuterol [Combivent Respimat] 20-100 mcg/actuation Mist 1 puff INHALATION QID PRN (Reason: Shortness Of Breath) RF: 0 allopurinol 300 mg tablet 300 mg PO QAM RF: 0 atorvastatin 40 mg tablet 40 mg PO QAM RF: 0 metoprolol succinate 50 mg tablet extended release 24 hr 50 mg PO QAM RF: 0 amlodipine 2.5 mg tablet 2.5 mg PO QAM RF: 0 clopidogrel 75 mg tablet 75 mg PO QAM RF: 0 aspirin 81 mg Tablet,Delayed Release (Dr/Ec) 81 mg PO QAM RF: 0 dutasteride 0.5 mg capsule 0.5 mg PO QAM RF: 0 tolterodine 4 mg capsule,extended release 24hr 4 mg PO DAILY RF: 0 mirabegron [Myrbetriq] 50 mg tablet extended release 24 hr 50 mg PO DAILY RF: 0 tramadol 50 mg Tablet 50 - 100 mg PO Q6H PRN (Reason: Pain) RF: 0 gabapentin 300 mg capsule 300 mg PO TID RF: 0 Discontinued pantoprazole 20 mg tablet,delayed release (DR/EC) 20 mg PO DAILY RF: 0 Stand-Alone Forms: [facility] Discharge Orders: Discharge Order (Routine); Ordered 06/05/18 Ordered By: Blake Silverman Admission Data Admit Date/Time: 06/04/18 11:25 Attending Provider: Blake Silverman Admit Provider: Khalif De La Cruz Primary Care Provider: Patrick Albarran Other Providers: Khalif De La Cruz ; Blake Silverman ; Patrick Amado ; Josselin Majano ; Perlita Rivers ; Deep Solares ; Jose Raul Zuniga ; Kaylee Waters ; Horacio Good ; Kwabena Coles ; Aida Peralta ; Fredrick Hennessy ; Glenys Tolbert ; Carlie Simmons ; Joon Ghotra Jr ; Beatrice Arriaga ; Jose Raul Tracy ; Violet Waters ; Morales Lam ; Kwabena Wynn Service: Medical Other Interventions: Discharge Summary Assessment (RN) Last Done: 06/05/18 15:17
--- NOTE | 2018-06-09 08:50 | Coding Query ---
I&D DOCUMENTATION To promote full compliance with coding requirements relating to patient care, physician participation is requested in all cases of silk folder uncertainty. Please assist us with the question(s) below: Please place an X in the parenthesis (x). If other, please document the finding: Type of Debridement OR Drainage: ( ) Excisional Debridement- Cutting away necrotic, devitalized tissue or slough to the level of viable tissue using a sharp instrument (i.e. scalpel, scissors, etc.) ( ) Non Excisional Debridement- The removal of necrotic, devitalized tissue or slough by means of scraping, mechanical brushing, flushing, or washing (i.e. irrigation,whirlpool);minor removal of loose fragments. ( ) Incision and Drainage ( ) Other (please specify): Instrument Used: ( ) Scissors ( ) Scalpel ( ) Curette ( ) Other (please specify): Depth of Debridement: ( ) Skin ( ) Skin and Subcutaneous Tissue ( ) Skin, Subcutaneous Tissue and Muscle ( ) Skin, Subcutaneous Tissue, Muscle and Bone ( ) Other (please specify): Thank you Makeda QUINTANA
== END 2018-06-05 16:37 | disposition home health service (06) | DRG 392 ==
LOC: 4E 12:32 → ED 12:32 → SUATTDRO 15:54 → 4E 16:46

== ENCOUNTER 2018-06-09 14:08 | Inpatient (IN) ==
[2018-06-09 16:09] LABS: Basophils # (auto) 0.02 K/uL (0-0.2); Basophils % (auto) 0.1 %; Eosinophils # (auto) 0.05 K/uL (0-0.5); Eosinophils % (auto) 0.3 %; Hematocrit (blood only) 37.8 % (42-52); Immature Granulocytes # (auto) 0.06 K/uL (0.00-0.02); Immature Granulocytes % (auto) 0.4 %; Lymphocytes # (auto) 1.44 K/uL (1.2-3.4); Lymphocytes % (auto) 9.9 %; Mean Corpuscular Hgb Conc 31.7 g/dL (32-36); Mean Corpuscular Volume 89.2 fL (80-100); Mean Platelet Volume 9.8 fL (7.4-10.4); Monocytes # (auto) 1.11 K/uL (0.11-0.59); Monocytes % (auto) 7.7 %; Neutrophils # (auto) 11.81 K/uL (1.4-6.5); Neutrophils % (auto) 81.6 %; Platelet Count 172 K/uL (130-400); RDW Coefficient of Variation 14.5 % (11.5-14.5); RDW Standard Deviation 47.1 fL (36.4-46.3); Red Blood Count 4.24 M/uL (4.7-6.1); White Blood Count 14.49 K/uL (4.8-10.8)
[2018-06-09] MEDS ORDERED: SODIUM CHLORIDE 0.9% 1000ML 1,000 ML IV SCH (16:15)
[2018-06-09 16:25] LABS: Albumin Level 2.8 gm/dl (3.4-5.0); Blood Urea Nitrogen 19 mg/dl (7-18); Calcium 8.5 mg/dl (8.5-10.1); Carbon Dioxide 29 mmol/L (21-32); Chloride 104 mmol/L (98-107); Glucose 122 mg/dl (70-99); Potassium 3.7 mmol/L (3.5-5.1); Sodium 139 mmol/L (136-145)
[2018-06-09 16:27] LABS: Alanine Aminotransferase 19 U/L (12-78); Aspartate Aminotransferase 16 U/L (15-37); BUN Creatinine Ratio 15.4 (10-20); Est GFR (African American) 61.2; Est GFR (Non-African American) 52.8
[2018-06-09 16:30] LABS: Albumin Globulin Ratio 0.7 (0.9-2); Alkaline Phosphatase 102 U/L (45-117); Bilirubin,Total 0.7 mg/dl (0.2-1); Globulin 4.1 gm/dl (2.5-4.0); Total Protein 6.9 gm/dl (6.4-8.2)
[2018-06-09] MEDS ORDERED: ALBUT/IPRATROP 3MG/0.5MG NEB 3 ML VIAL NEB STA (16:42)
[2018-06-09 16:48] LABS: Troponin I 0.031 ng/ml (0-0.045)
--- NOTE | 2018-06-09 17:18 | XRay Report ---
XR chest 1V portable CLINICAL HISTORY: Weakness. COMPARISON STUDY: 01/20/2018 FINDINGS: The heart is enlarged. There is a retrocardiac opacity consistent with a large hiatal herni a. There are right basilar airspace opacity suspicious for a pneumonitis. Pleurodiaphragmatic calcifi cations are suspected. Increased left basilar markings are likely atelectatic. There is a calcified g ranuloma within left midlung zone.[ IMPRESSION: 1. Very large hiatal hernia 2. Suspected pleurodiaphragmatic calcifications 3. Right basilar airspace opacities possibly representing a pneumonia. Clinical and radiographic foll ow-up is recommended Electronically signed by: Naeem Mckeon M.D. 06/09/2018 5:16 PM
[2018-06-09] MEDS ORDERED: PIPERACILL/TAZOBAC CONSULT ACTIVE PRN (17:19)
[2018-06-09] MEDS ORDERED: PIPERACILLIN/TAZOBACTAM 4.5 GM/120 ML BAG IV ONE (17:19)
[2018-06-09 17:26] LABS: Appearance Urine Clear (Clear); Bacteria Urine Automated Negative (Negative); Bilirubin Urine Negative (Negative); Color Urine Dark Yellow; Glucose Urine UA Negative (Negative); Ketones Urine Negative (Negative); Leukocyte Esterase Urine Negative (Negative); Nitrite Urine Negative (Negative); Protein Urine 1+ (Negative); Specific Gravity Urine 1.023 (1.000-1.030); Urobilinogen Urine Negative (Negative)
--- NOTE | 2018-06-09 17:31 | Emergency Department Note ---
Entered by Marah Mckeon acting as a scribe for History of Present Illness General Chief complaint: Weakness Stated complaint: FALL,WEAKNESS,DEHYDRATION Time Seen by Provider: 06/09/18 16:01 Source: patient and family History of Present Illness Onset (ago): day(s) (yesterday) Location: upper extremity and lower extremity Pain Consistency: + other (worsening) Quality: + other (weakness) Associated symptoms: + denies other symptoms (being more weak on one side, diarrhea) and + other (fall, left rib pain, bilateral arm pain, fatigue, difficulty standing ); no cough, no fever/chills (fever), no loss of appetite, no nausea/vomiting (vomiting) and no shortness of breath The patient is an 87 year old male who presents to the Emergency Room with complaints of worsening weakness starting yesterday. The patients daughter notes that the patient was here in the ED last week and was admitted. She states that he was here because he had lost 20 lbs and was dehydrated. She states that they wanted him to go to rehab after his stay, but he was adamant that he was just going home. She reports that the first few days at home he was fine, but yesterday he was not. She states that she came to pick him up for a wrestling match and he was lying over the side of the bathtub. The patient states that he was so weak and he was trying to get himself up, but couldnt. He reports that he laid over the tub like that for an hour before feeling better. He states that today he has left rib pain, but thinks its because he was lying over the tub for so long. The patient states that this morning he went to get up, but couldnt because he had lost power. He reports that his arms and legs were so weak he couldnt stand. The patients daughter states that when he called her and told her this today, she called his PCP who told her to bring him to the ED. The patient complains of bilateral arm pain and fatigue. The patient denies loss of appetite, being more weak on one side, vomiting, fever, diarrhea, cough, and shortness of breath. Home Medications Home Medications Medication Instructions Recorded Confirmed Type allopurinol 300 mg PO QAM 01/20/18 06/09/18 History amlodipine 2.5 mg PO QAM 01/20/18 06/09/18 History aspirin 81 mg PO QAM 01/20/18 06/09/18 History atorvastatin 40 mg PO QAM 01/20/18 06/09/18 History clopidogrel 75 mg PO QAM 01/20/18 06/09/18 History dutasteride 0.5 mg PO QAM 01/20/18 06/09/18 History gabapentin 300 mg PO TID 01/20/18 06/09/18 History metoprolol succinate 50 mg PO QAM 01/20/18 06/09/18 History mirabegron 50 mg PO DAILY 01/20/18 06/09/18 History tolterodine 4 mg PO DAILY 01/20/18 06/09/18 History tramadol 50 - 100 mg PO Q6H PRN 01/20/18 06/09/18 History ipratropium-albuterol [Combivent 1 puff INHALATION QID PRN 05/30/18 06/09/18 History Respimat] magnesium oxide 400 mg PO BID 05/30/18 06/09/18 History mometasone [Asmanex Twisthaler] 2 inh INHALATION BID 05/30/18 06/09/18 History tamsulosin 0.4 mg PO DAILY 05/30/18 06/09/18 History pantoprazole 40 mg PO BID 30 Days #60 tab 06/05/18 06/09/18 Rx multivitamin 1 tab PO DAILY 06/09/18 06/09/18 History Allergies Allergy/AdvReac Type Severity Reaction Status Date / Time morphine Allergy Unknown "out of it Verified 06/09/18 15:21 for days" colchicine AdvReac Mild GI upset Verified 06/09/18 15:21 [place] And Derivatives AdvReac Unknown STOMACH Verified 06/09/18 15:21 ACHE FROM [facility] tomato AdvReac Unknown HEADACHE Verified 06/09/18 15:21 FROM [facility] Past Med/Surg History Medical History COPD (chronic obstructive pulmonary disease) (Chronic) Hypertension (Chronic) Gout (Chronic) CKD (chronic kidney disease), stage III (Chronic) Osteoporosis (Chronic) Psoriatic arthritis (Chronic) Dyslipidemia (Chronic) Aortic stenosis (Chronic) "echo 02/2017 - severe " On 03/21/15 18:55 Angela Jaramillo wrote "moderate" Tobacco abuse (Resolved) H/O atrial flutter (Chronic) "occurred postoperatively in 01/2014, converted to sinus rhythm with IV diltiazem" Nocturnal hypoxemia (Chronic) History of duodenal ulcer (Chronic) H/O diastolic dysfunction (Chronic) "grade I per echo 02/2017" On 03/21/15 19:09 Angela Jaramillo wrote "grade I per echo 01/2014" BPH (benign prostatic hypertrophy) (Chronic) Volvulus of stomach (Chronic) Neuropathy (Chronic) Peripheral vascular disease (Chronic) s/p angioplasty of right posterior tibial artery Urinary incontinence (Chronic) Hiatal hernia (Chronic) Renal lesion (Chronic) Esophageal dysmotility (Chronic) History of COPD (Inactive) History of heart valve insufficiency (Inactive) Umbilical hernia (Inactive) MAXI (acute kidney injury) (Inactive) Abnormal finding on CT scan (Inactive) Dysphagia (Inactive) Furuncle (Inactive) Weight loss (Inactive) Surgical History History of lithotripsy (Chronic) History of back surgery (Chronic) Family History Other Family history non-contributory Social History marital status: / Current Living Situation: Alone current occupational status: retired Feels Safe at Home: Yes Smoking Status: Former smoker Hx Alcohol Use: No Hx Substance Use: No Beliefs That Will Affect Care: None Preferred Language: Scottish Visual Impairment: Limited Hearing Ability: Normal Review of Systems See HPI for pertinent positives & negatives. and A total of 10 systems reviewed and were otherwise negative Physical Exam Vital Signs Vital Signs - 24 hr 06/09/18 14:10 06/09/18 15:10 06/09/18 15:30 Temperature 37.1 C Temperature Source Oral Sepsis Recent Fever Within 48 Hours No Sepsis New/Unexplained Change in Mental Status No Sepsis Action Taken by Nursing No Action Required Pulse Rate 95 H 95 H 90 Respiratory Rate 20 24 24 Respiratory Effort / Characteristics Spontaneous Blood Pressure 126/78 Blood Pressure Mean 94 Blood Pressure Position Sitting Pulse Oximetry 93 93 95 Oxygen Delivery Method Room Air 06/09/18 16:00 06/09/18 16:09 06/09/18 16:18 Temperature Temperature Source Sepsis Recent Fever Within 48 Hours Sepsis New/Unexplained Change in Mental Status Sepsis Action Taken by Nursing Pulse Rate 90 90 Respiratory Rate 23 23 Respiratory Effort / Characteristics Blood Pressure 127/79 Blood Pressure Mean 95 Blood Pressure Position Pulse Oximetry Oxygen Delivery Method Room Air 06/09/18 16:19 06/09/18 16:30 06/09/18 17:00 Temperature Temperature Source Sepsis Recent Fever Within 48 Hours Sepsis New/Unexplained Change in Mental Status Sepsis Action Taken by Nursing Pulse Rate 91 H 92 H Respiratory Rate 24 24 Respiratory Effort / Characteristics Blood Pressure 140/83 131/74 Blood Pressure Mean 102 93 Blood Pressure Position Pulse Oximetry 97 96 Oxygen Delivery Method Room Air Room Air 06/09/18 17:30 06/09/18 17:31 06/09/18 18:00 Temperature Temperature Source Sepsis Recent Fever Within 48 Hours Sepsis New/Unexplained Change in Mental Status Sepsis Action Taken by Nursing Pulse Rate 89 89 91 H Respiratory Rate 19 17 26 H Respiratory Effort / Characteristics Blood Pressure 117/84 127/73 Blood Pressure Mean 95 91 Blood Pressure Position Pulse Oximetry Oxygen Delivery Method Room Air 06/09/18 18:30 06/09/18 19:00 06/09/18 19:10 Temperature Temperature Source Sepsis Recent Fever Within 48 Hours Sepsis New/Unexplained Change in Mental Status Sepsis Action Taken by Nursing Pulse Rate 88 87 Respiratory Rate 26 H 24 Respiratory Effort / Characteristics Blood Pressure 107/63 127/73 Blood Pressure Mean 77 91 Blood Pressure Position Pulse Oximetry 96 Oxygen Delivery Method Room Air Room Air GENERAL: Patient is in no acute distress. HEENT: No acute trauma, normocephalic atraumatic, mucous membranes are dry, no nasal congestion, no scleral icterus. NECK: No stridor, no adenopathy, no meningismus, trachea is midline. LUNGS: Diminished breath sounds. Equal breath sounds. No respiratory distress. No wheezing. HEART: 4/6 systolic murmur heard best laterally. Regular rhythm. Normal rate. ABDOMEN: Soft, nontender, bowel sounds positive, no peritonitis. Nontender umbilical hernia. EXTREMITIES: No cyanosis or edema, full range of motion of all the joints without pain or difficulty, no signs for acute trauma. NEUROLOGIC: Oriented x 3, no acute motor or sensory deficits, no focal weakness. SKIN: No rash, no jaundice, no diaphoresis. Course 1601: Past medical records reviewed. The patient was evaluated in room B9, and a complete history and physical examination were performed. 1646: I spoke to case management and they will go speak with the patient about rehab. 1721: I paged the hospitalist at this time. 1722: I reevaluated the patient and updated him and his family on his test results. I discussed the treatment plan with them. They verbally agree and understand. 1730: I reviewed the patient's case with [facility] Hospitalist. She will evaluate the patient for further management. Consultations Consultation #1: I reviewed the patient's case with [facility] Hospitalist. She will evaluate the patient for further management. Time: 17:30 Administered Medications Discontinued Medications Albuterol (Duoneb) 3 ml NEB NOW STA Stop: 06/09/18 16:43 Last Admin: 06/09/18 17:20 Dose: 3 ml Sodium Chloride (Nss 1000ml) 1,000 mls @ 999 mls/hr IV .Q1H1M DIOMEDES Stop: 06/09/18 17:15 Last Infusion: 06/09/18 17:16 Dose: 0 mls/hr Admin: 06/09/18 16:24 Dose: 999 mls/hr Medical Decision Making Differential Diagnosis Differential diagnoses include dehydration, anemia, UTI, pneumonia, electrolyte imbalance, liver or renal failure, debilitation, HI. Medical Records Attestation: I reviewed the patient's medical records. Home Medications Current Medication List: was personally reviewed by me Laboratory Data Attestation: I reviewed the patient's lab results. Result diagrams: 06/09/18 15:50 06/09/18 15:50 Lab Results 06/09/18 06/09/18 06/09/18 Range/Units 15:50 15:50 17:10 WBC 14.49 H (4.8-10.8) K/uL RBC 4.24 L (4.7-6.1) M/uL Hgb 12.0 L (14.0-18.0) g/dL Hct 37.8 L (42-52) % MCV 89.2 (80-100) fL MCH 28.3 (25-34) pg MCHC 31.7 L (32-36) g/dL RDW Std Deviation 47.1 H (36.4-46.3) fL RDW Coeff of [place] 14.5 (11.5-14.5) % Plt Count 172 (130-400) K/uL MPV 9.8 (7.4-10.4) fL Immature Gran % (Auto) 0.4 % Neut % (Auto) 81.6 % Lymph % (Auto) 9.9 % [place] % (Auto) 7.7 % Eos % (Auto) 0.3 % Baso % (Auto) 0.1 % Immature Gran # (Auto) 0.06 H (0.00-0.02) K/uL Neut # (Auto) 11.81 H (1.4-6.5) K/uL Lymph # (Auto) 1.44 (1.2-3.4) K/uL [place] # (Auto) 1.11 H (0.11-0.59) K/uL Eos # (Auto) 0.05 (0-0.5) K/uL Baso # (Auto) 0.02 (0-0.2) K/uL Sodium 139 (136-145) mmol/L Potassium 3.7 (3.5-5.1) mmol/L Chloride 104 (98-107) mmol/L Carbon Dioxide 29 (21-32) mmol/L Anion Gap 6.0 (3-11) BUN 19 H (7-18) mg/dl Creatinine 1.23 (0.6-1.4) mg/dl Est Cr Clr Drug Dosing Not Reportable Est GFR ( Amer) 61.2 Est GFR (Non-Af Amer) 52.8 BUN/Creatinine Ratio 15.4 (10-20) Glucose 122 H (70-99) mg/dl Calcium 8.5 (8.5-10.1) mg/dl Magnesium 2.0 (1.8-2.4) mg/dl Total Bilirubin 0.7 (0.2-1) mg/dl AST 16 (15-37) U/L ALT 19 (12-78) U/L Alkaline Phosphatase 102 (45-117) U/L Troponin I 0.031 (0-0.045) ng/ml Total Protein 6.9 (6.4-8.2) gm/dl Albumin 2.8 L (3.4-5.0) gm/dl Globulin 4.1 H (2.5-4.0) gm/dl Albumin/Globulin Ratio 0.7 L (0.9-2) TSH 3.730 (0.300-4.500) uIu/ml Urine Color Dark Yellow Urine Appearance Clear (Clear) Urine pH 6.0 (4.5-7.5) Ur Specific [place] 1.023 (1.000-1.030) Urine Protein 1+ H (Negative) Urine Glucose (UA) Negative (Negative) Urine Ketones Negative (Negative) Urine Blood Negative (Negative) Urine Nitrite Negative (Negative) Urine Bilirubin Negative (Negative) Urine Urobilinogen Negative (Negative) Ur Leukocyte Esterase Negative (Negative) Urine WBC (Auto) 1-5 (0-5) /hpf Urine RBC (Auto) 5-10 H (0-4) /hpf U Hyaline Cast (Auto) 1-5 (0-5) /lpf U Epithel Cells (Auto) 10-20 H (0-5) /lpf Urine Bacteria (Auto) Negative (Negative) ECG Data Attestation: I personally reviewed and interpreted this ECG as follows: Indication: weakness Rate (beats per minute): 91 Rhythm: sinus rhythm Findings: + 1st degree AV block; no PVC and no ST elevation Prescription Drug Monitoring Prescription Drug Findings: Radiology results as stated below per my review and the radiologist's interpretation: XR chest 1V portable CLINICAL HISTORY: Weakness. COMPARISON STUDY: 01/20/2018 FINDINGS: The heart is enlarged. There is a retrocardiac opacity consistent with a large hiatal hernia. There are right basilar airspace opacity suspicious for a pneumonitis. Pleurodiaphragmatic calcifications are suspected. Increased left basilar markings are likely atelectatic. There is a calcified granuloma within left midlung zone.[ IMPRESSION: 1. Very large hiatal hernia 2. Suspected pleurodiaphragmatic calcifications 3. Right basilar airspace opacities possibly representing a pneumonia. Clinical and radiographic follow-up is recommended Electronically signed by: Naeem Mckeon M.D. 06/09/2018 5:16 PM Blood Pressure Blood Pressure Findings: Normal blood pressure Blood Pressure Disposition: did not require urgent referral MDM Narrative There is a mild leukocytosis with a white count of around 14,000, this is consistent with infection. The patient is anemic but this is baseline. No significant electrolyte abnormality or kidney failure. No hepatitis. The patient appears to be in a euthyroid state. Urinalysis does not show infection. Chest film shows a right lower lung pneumonia and a large hiatal hernia. No CHF. EKG shows a sinus rhythm, no acute ischemia. Cardiac enzyme testing x1 is not consistent with acute cardiac injury. Blood cultures are pending. The patient received IV saline for hydration. He was given IV Zosyn as antibiotic coverage. He was given a DuoNeb. The patient presents with weakness that has been progressive for 2 days. He has pneumonia on workup with an elevation to his white count. He does seem slightly dehydrated. He is in no condition to be discharged. A hospital stay is warranted. I spoke to the patient and case management. The on-call hospitalist was consulted. I did have our correctional case manager talk to the patient about rehab following this hospital stay. Impression & Plan Pneumonia, Weakness, Leukocytosis, Near syncope Discharge Plan Visit Data Chief Complaint: Weakness Stated Complaint: FALL,WEAKNESS,DEHYDRATION ED Provider: Olman Houston Discharge Problem: Pneumonia, Weakness, Leukocytosis, Near syncope Patient Disposition: Being Evaluated by Hospitalist Discharge Instructions Interventions: ED Discharge Assessment Last Done: 06/09/18 19:10 Prescriptions Prescriptions: No Action tamsulosin 0.4 mg capsule 0.4 mg PO DAILY RF: 0 mometasone [Asmanex Twisthaler] 220 mcg (120 doses) Aerosol Powdr Breath Activated 2 inh INHALATION BID RF: 0 magnesium oxide 400 mg Capsule 400 mg PO BID RF: 0 ipratropium-albuterol [Combivent Respimat] 20-100 mcg/actuation Mist 1 puff INHALATION QID PRN (Reason: Shortness Of Breath) RF: 0 pantoprazole 40 mg Tablet,Delayed Release (Dr/Ec) 40 mg PO BID 30 Days Qty: 60 RF: 1 allopurinol 300 mg tablet 300 mg PO QAM RF: 0 atorvastatin 40 mg tablet 40 mg PO QAM RF: 0 metoprolol succinate 50 mg tablet extended release 24 hr 50 mg PO QAM RF: 0 amlodipine 2.5 mg tablet 2.5 mg PO QAM RF: 0 clopidogrel 75 mg tablet 75 mg PO QAM RF: 0 aspirin 81 mg Tablet,Delayed Release (Dr/Ec) 81 mg PO QAM RF: 0 dutasteride 0.5 mg capsule 0.5 mg PO QAM RF: 0 tolterodine 4 mg capsule,extended release 24hr 4 mg PO DAILY RF: 0 mirabegron 50 mg tablet extended release 24 hr 50 mg PO DAILY RF: 0 tramadol 50 mg Tablet 50 - 100 mg PO Q6H PRN (Reason: Pain) RF: 0 gabapentin 300 mg capsule 300 mg PO TID RF: 0 multivitamin Tablet 1 tab PO DAILY RF: 0 The scribe's documentation has been prepared under my direction and personally reviewed by me in its entirety. I confirm that the note above accurately reflects all work, treatment, procedures, and medical decision making performed by me.
[2018-06-09] MEDS ORDERED: ALBUT/IPRATROP 3MG/0.5MG NEB 3 ML VIAL NEB PRN (18:18)
--- NOTE | 2018-06-09 18:24 | History & Physical Report ---
Date of Service June 09, 2018 Assessment & Plan (1) Pneumonia: (2) COPD (chronic obstructive pulmonary disease): -Admit to [facility] -Patient presenting from home with reports of generalized weakness and shortness of breath with minimal exertion -In the ED, CXR showing right basilar opacity consistent with pneumonia -Likely aspiration pneumonia secondary to diet noncompliance of speech therapy recommendations with underlying esophageal dysmotility and large hiatal hernia -Saturating well on room air, hemodynamically stable -WBC 14 K -S/P Zosyn in the ED, will continue with -No wheezing on exam, do not suspect COPD exacerbation; PRN nebs ordered -Speech therapy consult -PT/OT (3) Esophageal dysmotility: (4) Hiatal hernia: -Diet ordered as per speech therapy recommendations during previous admission -Patient not a candidate to have hiatal hernia repaired until aortic valve is repaired first (5) Hypertension: -BP controlled, continue amlodipine and metoprolol (6) Aortic stenosis: -Severe, [place] [facility] [place] -Appears euvolemic, monitor volume status closely (7) Gout: -Continue allopurinol (8) CKD (chronic kidney disease), stage III: - baseline creat runs in the low 1's - creat noted to be 1.2 today - continue to monitor, avoid nephrotoxic agents when able (9) Dyslipidemia: -Continue statin (10) Peripheral vascular disease: -Continue aspirin and Plavix (11) Neuropathy: -Continue gabapentin (12) BPH (benign prostatic hypertrophy): -Continue tamsulosin, dutasteride, and mirabegron (13) Renal lesion: -Noted during previous admission, needs outpatient renal MRI (14) DVT prophylaxis: -SQ heparin History of Present Illness Chief Complaint: Weakness, shortness of breath Primary Care Provider: Patrick Danuta Albarran 87-year-old male who presents the ED for evaluation of generalized weakness and shortness of breath. Patient was recently admitted to [facility] 05/30 through 06/05 for weight loss and poor appetite. During that admission, patient underwent barium swallow that demonstrated severe esophageal dysmotility. He also went underwent an EGD that showed a tortuous esophagus. He had a mild MAXI that resolved with IVF. He was also noted to have a large hiatal hernia however given his underlying severe aortic stenosis, he was not felt to be a good surgical candidate for repair. Patient was offered placement for rehab at discharge however he declined. Patient reports that yesterday, he was in the bathroom getting cleaned up when he felt very weak and had to lean against the bathtub and was unable to get up off the floor. He reports that he did not fall. He was on the floor for approximately 30 minutes before his family found him. He reports shortness of breath with minimal exertion. No cough or sputum production. He denies fevers and chills. It does not appear as though patient is following recommendations from speech therapist from prior admission. He reports his appetite has improved. No abdominal pain, nausea, vomiting, diarrhea. He denies chest pain, palpitations, lightheadedness, dizziness, diaphoresis, syncopal events. He has chronic lower extremity edema which is unchanged baseline. No urinary symptoms. In the ED, CXR showing right basilar opacity suggestive of pneumonia. WBC 14 K, saturating well on room air, hemodynamically stable. Patient was given nebulizer treatment, IVF, IV Zosyn. Allergies Allergy/AdvReac Type Severity Reaction Status Date / Time morphine Allergy Unknown "out of it Verified 06/09/18 15:21 for days" colchicine AdvReac Mild GI upset Verified 06/09/18 15:21 [place] [employer] AdvReac Unknown STOMACH Verified 06/09/18 15:21 ACHE FROM [employer] tomato AdvReac Unknown HEADACHE Verified 06/09/18 15:21 FROM [facility] [facility] Home Medications Home Medications Medication Instructions Recorded Confirmed Type allopurinol 300 mg PO QAM 01/20/18 06/09/18 History amlodipine 2.5 mg PO QAM 01/20/18 06/09/18 History aspirin 81 mg PO QAM 01/20/18 06/09/18 History atorvastatin 40 mg PO QAM 01/20/18 06/09/18 History clopidogrel 75 mg PO QAM 01/20/18 06/09/18 History dutasteride 0.5 mg PO QAM 01/20/18 06/09/18 History gabapentin 300 mg PO TID 01/20/18 06/09/18 History metoprolol succinate 50 mg PO QAM 01/20/18 06/09/18 History mirabegron 50 mg PO DAILY 01/20/18 06/09/18 History tolterodine 4 mg PO DAILY 01/20/18 06/09/18 History tramadol 50 - 100 mg PO Q6H PRN 01/20/18 06/09/18 History ipratropium-albuterol [Combivent 1 puff INHALATION QID PRN 05/30/18 06/09/18 History Respimat] magnesium oxide 400 mg PO BID 05/30/18 06/09/18 History mometasone [Asmanex Twisthaler] 2 inh INHALATION BID 05/30/18 06/09/18 History tamsulosin 0.4 mg PO DAILY 05/30/18 06/09/18 History pantoprazole 40 mg PO BID 30 Days #60 tab 06/05/18 06/09/18 Rx multivitamin 1 tab PO DAILY 06/09/18 06/09/18 History Past Med/Surg History Medical History COPD (chronic obstructive pulmonary disease) (Chronic) Hypertension (Chronic) Gout (Chronic) CKD (chronic kidney disease), stage III (Chronic) Osteoporosis (Chronic) Psoriatic arthritis (Chronic) Dyslipidemia (Chronic) Aortic stenosis (Chronic) "echo 02/2017 - severe " On 03/21/15 18:55 Angela Jaramillo wrote "moderate" Tobacco abuse (Resolved) H/O atrial flutter (Chronic) "occurred postoperatively in 01/2014, converted to sinus rhythm with IV diltiazem" Nocturnal hypoxemia (Chronic) History of duodenal ulcer (Chronic) H/O diastolic dysfunction (Chronic) "grade I per echo 02/2017" On 03/21/15 19:09 Angela Jaramillo wrote "grade I per echo 01/2014" BPH (benign prostatic hypertrophy) (Chronic) Volvulus of stomach (Chronic) Neuropathy (Chronic) Peripheral vascular disease (Chronic) s/p angioplasty of right posterior tibial artery Urinary incontinence (Chronic) Hiatal hernia (Chronic) Renal lesion (Chronic) Esophageal dysmotility (Chronic) History of COPD (Inactive) History of heart valve insufficiency (Inactive) Umbilical hernia (Inactive) MAXI (acute kidney injury) (Inactive) Abnormal finding on CT scan (Inactive) Dysphagia (Inactive) Furuncle (Inactive) Weight loss (Inactive) Surgical History History of lithotripsy (Chronic) History of back surgery (Chronic) Family History Other Family history non-contributory Social History marital status: / Current Living Situation: Alone current occupational status: retired Feels Safe at Home: Yes Smoking Status: Former smoker Hx Alcohol Use: No Hx Substance Use: No Beliefs That Will Affect Care: None Preferred Language: Kuwaiti Visual Impairment: Limited Hearing Ability: Normal Review of Systems ROS per HPI, all other systems reviewed and negative Physical Exam 2 Vital Signs (Past 24 Hours): Last Vital Signs Temp 37.1 C 06/09/18 14:10 Pulse 89 06/09/18 17:31 Resp 17 06/09/18 17:31 BP 117/84 06/09/18 17:31 Pulse Ox 97 06/09/18 16:19 Constitutional: WD/WN, vitals as above Eyes: PERRL, conjunctivae normal, anicteric sclerae ENMT: external ear and nose normal, oropharynx normal Respiratory: normal respiratory effort; no respiratory distress Auscultation: + diminished lung sounds; no rales, no rhonchi and no wheezes Cardiovascular: Rate/Rhythm: regular rate and regular rhythm Heart Sounds: + murmur (Systolic, grade 4/6) Vessels: normal peripheral pulses Extremities: + edema (+1-2 BLE, R > L) Gastrointestinal (Abdomen): normal bowel sounds, soft, nontender, no hepatosplenomegaly Musculoskeletal: Extremities: + abnormal strength, no cyanosis and no clubbing Skin: no rashes, warm and dry Neurologic: PERRL, EOMI, accommodation nl, no face palsy, no dysarthria Psychiatric: A+Ox3, euthymic affect Results & Data Laboratory Results Laboratory Last Values WBC 14.49 K/uL (4.8-10.8) H 06/09/18 15:50 RBC 4.24 M/uL (4.7-6.1) L 06/09/18 15:50 Hgb 12.0 g/dL (14.0-18.0) L 06/09/18 15:50 Hct 37.8 % (42-52) L 06/09/18 15:50 MCV 89.2 fL (80-100) 06/09/18 15:50 MCH 28.3 pg (25-34) 06/09/18 15:50 MCHC 31.7 g/dL (32-36) L 06/09/18 15:50 RDW Std Deviation 47.1 fL (36.4-46.3) H 06/09/18 15:50 RDW Coeff of [place] 14.5 % (11.5-14.5) 06/09/18 15:50 Plt Count 172 K/uL (130-400) 06/09/18 15:50 MPV 9.8 fL (7.4-10.4) 06/09/18 15:50 Immature Gran % (Auto) 0.4 % 06/09/18 15:50 Neut % (Auto) 81.6 % 06/09/18 15:50 Lymph % (Auto) 9.9 % 06/09/18 15:50 [place] % (Auto) 7.7 % 06/09/18 15:50 Eos % (Auto) 0.3 % 06/09/18 15:50 Baso % (Auto) 0.1 % 06/09/18 15:50 Immature Gran # (Auto) 0.06 K/uL (0.00-0.02) H 06/09/18 15:50 Neut # (Auto) 11.81 K/uL (1.4-6.5) H 06/09/18 15:50 Lymph # (Auto) 1.44 K/uL (1.2-3.4) 06/09/18 15:50 [place] # (Auto) 1.11 K/uL (0.11-0.59) H 06/09/18 15:50 Eos # (Auto) 0.05 K/uL (0-0.5) 06/09/18 15:50 Baso # (Auto) 0.02 K/uL (0-0.2) 06/09/18 15:50 Sodium 139 mmol/L (136-145) 06/09/18 15:50 Potassium 3.7 mmol/L (3.5-5.1) 06/09/18 15:50 Chloride 104 mmol/L (98-107) 06/09/18 15:50 Carbon Dioxide 29 mmol/L (21-32) 06/09/18 15:50 Anion Gap 6.0 (3-11) 06/09/18 15:50 BUN 19 mg/dl (7-18) H 06/09/18 15:50 Creatinine 1.23 mg/dl (0.6-1.4) 06/09/18 15:50 Est Cr Clr Drug Dosing Not Reportable 06/09/18 15:50 Est GFR ( Amer) 61.2 06/09/18 15:50 Est GFR (Non-Af Amer) 52.8 06/09/18 15:50 BUN/Creatinine Ratio 15.4 (10-20) 06/09/18 15:50 Glucose 122 mg/dl (70-99) H 06/09/18 15:50 Calcium 8.5 mg/dl (8.5-10.1) 06/09/18 15:50 Magnesium 2.0 mg/dl (1.8-2.4) 06/09/18 15:50 Total Bilirubin 0.7 mg/dl (0.2-1) 06/09/18 15:50 AST 16 U/L (15-37) 06/09/18 15:50 ALT 19 U/L (12-78) 06/09/18 15:50 Alkaline Phosphatase 102 U/L (45-117) 06/09/18 15:50 Troponin I 0.031 ng/ml (0-0.045) 06/09/18 15:50 Total Protein 6.9 gm/dl (6.4-8.2) 06/09/18 15:50 Albumin 2.8 gm/dl (3.4-5.0) L 06/09/18 15:50 Globulin 4.1 gm/dl (2.5-4.0) H 06/09/18 15:50 Albumin/Globulin Ratio 0.7 (0.9-2) L 06/09/18 15:50 TSH 3.730 uIu/ml (0.300-4.500) 06/09/18 15:50 Urine Color Dark Yellow 06/09/18 17:10 Urine Appearance Clear (Clear) 06/09/18 17:10 Urine pH 6.0 (4.5-7.5) 06/09/18 17:10 Ur Specific [place] 1.023 (1.000-1.030) 06/09/18 17:10 Urine Protein 1+ (Negative) H 06/09/18 17:10 Urine Glucose (UA) Negative (Negative) 06/09/18 17:10 Urine Ketones Negative (Negative) 06/09/18 17:10 Urine Blood Negative (Negative) 06/09/18 17:10 Urine Nitrite Negative (Negative) 06/09/18 17:10 Urine Bilirubin Negative (Negative) 06/09/18 17:10 Urine Urobilinogen Negative (Negative) 06/09/18 17:10 Ur Leukocyte Esterase Negative (Negative) 06/09/18 17:10 Urine WBC (Auto) 1-5 /hpf (0-5) 06/09/18 17:10 Urine RBC (Auto) 5-10 /hpf (0-4) H 06/09/18 17:10 U Hyaline Cast (Auto) 1-5 /lpf (0-5) 06/09/18 17:10 U Epithel Cells (Auto) 10-20 /lpf (0-5) H 06/09/18 17:10 Urine Bacteria (Auto) Negative (Negative) 06/09/18 17:10 Diagnostic Findings CXR IMPRESSION: 1. Very large hiatal hernia 2. Suspected pleurodiaphragmatic calcifications 3. Right basilar airspace opacities possibly representing a pneumonia. Clinical and radiographic follow-up is recommended Code Status & VTE Plan Code Status Patient is a full code as per my discussion with him. VTE Prophylaxis Plan VTE Prophylaxis will be ordered: Yes Supervising Physician Co-Signing Physician Notes Attending addendum; The patient was seen and examined in emergency room Is an 87 years old male with significant past medical history including huge hiatal hernia, COPD, chronic kidney disease, severe aortic stenosis, hypertension hyperlipidemia and recently diagnosed esophageal dysmotility was brought into the emergency room with extreme weakness since last evening and noted to have pneumonia involving the right base. Complains to have extreme weakness But denies any symptoms related to the pneumonia No chest pain, no increasing shortness of breath, no cough, no fever and/or chills no abdominal pain nausea and vomiting On examination Minimal shortness of breath at rest Lying in bed without any other distress Hemodynamically stable Chest-decreased breath sounds with coarse crackles in the right base Heart-S1-S2, 3/6 systolic murmur over aortic area Abdomen-benign, nontender, bowel sounds present Extremities-trace edema bilaterally Admission labs and imaging studies reviewed Has right lower lobe pneumonia likely secondary to aspiration given the history of esophageal dysmotility and huge hiatal hernia Agree with assessment and plan as outlined above by Diane De La Cruz
[2018-06-09] MEDS ORDERED: TRAMADOL HCL 50 MG TABLET PO PRN (20:08)
[2018-06-09] MEDS ORDERED: PATIENT'S HEIGHT AND/OR WEIGHT NEEDED SCH (20:15)
[2018-06-09] MEDS: ACETAMINOPHEN 325 MG TAB PO PRN (21:22)
[2018-06-09] MEDS: PANTOprazole 40 MG TAB PO SCH (21:23)
[2018-06-09] MEDS: GABAPENTIN 300 MG CAP PO SCH (21:23)
[2018-06-09] MEDS: MAGNESIUM OXIDE 400 MG TAB PO SCH (21:23)
[2018-06-09 21:33] LABS: INR 1.1 (0.9-1.1); Partial Thromboplastin Ratio 1.3; Partial Thromboplastin Time 33.2 Seconds (21.0-31.0); Prothrombin Time 11.1 Seconds (9.0-12.0)
[2018-06-09 21:46] LABS: Hematocrit (blood only) 35.8 % (42-52); Hemoglobin 11.4 g/dL (14.0-18.0); Mean Corpuscular Hgb Conc 31.8 g/dL (32-36); Mean Corpuscular Volume 89.5 fL (80-100); Mean Platelet Volume 9.9 fL (7.4-10.4); Platelet Count 167 K/uL (130-400); RDW Coefficient of Variation 14.5 % (11.5-14.5); RDW Standard Deviation 47.8 fL (36.4-46.3); White Blood Count 13.33 K/uL (4.8-10.8)
[2018-06-09] MEDS: MOMETASONE FUROATE 14 PUFF/1 INHALER INH SCH (22:39)
[2018-06-09] MEDS: HEPARIN SOD 5,000 UNIT/0.5 ML VIAL SQ SCH (22:40)
[2018-06-10] MEDS: PIPERACILLIN/TAZOBACTAM 3.375 GM in DEXTROSE 5% 100 ML IV SCH ×3 (02:12→18:43)
[2018-06-10] MEDS: HEPARIN SOD 5,000 UNIT/0.5 ML VIAL SQ SCH ×3 (05:35→21:13)
[2018-06-10 06:04] LABS: Hematocrit (blood only) 36.4 % (42-52); Hemoglobin 11.7 g/dL (14.0-18.0); Mean Corpuscular Hgb Conc 32.1 g/dL (32-36); Mean Corpuscular Volume 88.3 fL (80-100); Mean Platelet Volume 10.2 fL (7.4-10.4); Platelet Count 164 K/uL (130-400); RDW Coefficient of Variation 14.4 % (11.5-14.5); RDW Standard Deviation 46.5 fL (36.4-46.3); Red Blood Count 4.12 M/uL (4.7-6.1); White Blood Count 12.14 K/uL (4.8-10.8)
[2018-06-10 06:37] LABS: BUN Creatinine Ratio 13.9 (10-20); Calcium 7.9 mg/dl (8.5-10.1); Creatinine Clr Calc Pharmacy 44.9 ml/min; Est GFR (African American) 61.8; Est GFR (Non-African American) 53.4; Potassium 3.4 mmol/L (3.5-5.1)
[2018-06-10] MEDS: MOMETASONE FUROATE 14 PUFF/1 INHALER INH SCH ×2 (08:51→21:13)
[2018-06-10] MEDS: METOPROLOL SUCC 50MG EXT REL TAB PO SCH (08:52)
[2018-06-10] MEDS: GABAPENTIN 300 MG CAP PO SCH ×3 (08:52→21:15)
[2018-06-10] MEDS: MULTIVITAMIN TAB PO SCH (08:52)
[2018-06-10] MEDS: AMLODIPINE BESYLATE 5 MG TAB PO SCH (08:52)
[2018-06-10] MEDS: MIRABEGRON ER 25 MG TAB PO SCH (08:52)
[2018-06-10] MEDS: TOLTERODINE TARTRATE LA 4 MG CAPCR PO SCH (08:52)
[2018-06-10] MEDS: MAGNESIUM OXIDE 400 MG TAB PO SCH ×2 (08:52→21:14)
[2018-06-10] MEDS: ATORVASTATIN 40 MG TAB PO SCH (08:52)
[2018-06-10] MEDS: TAMSULOSIN HCL 0.4 MG CAP PO SCH (08:52)
[2018-06-10] MEDS: PANTOprazole 40 MG TAB PO SCH ×2 (08:52→21:15)
[2018-06-10] MEDS: CLOPIDOGREL BISULFATE 75 MG TAB PO SCH (08:52)
[2018-06-10] MEDS: ALLOPURINOL 300 MG TAB PO SCH (08:52)
[2018-06-10] MEDS: ASPIRIN 81 MG ECTAB PO SCH (08:52)
[2018-06-10] MEDS: ACETAMINOPHEN 325 MG TAB PO PRN (19:13)
[2018-06-11] MEDS: PIPERACILLIN/TAZOBACTAM 3.375 GM in DEXTROSE 5% 100 ML IV SCH ×3 (02:37→17:39)
[2018-06-11] MEDS: HEPARIN SOD 5,000 UNIT/0.5 ML VIAL SQ SCH ×3 (06:29→21:15)
[2018-06-11 06:36] LABS: Creatinine Clr Calc Pharmacy 45.7 ml/min; Est GFR (African American) 63.1; Est GFR (Non-African American) 54.4
--- NOTE | 2018-06-11 07:45 | Hospitalist Progress Note ---
Date of Service June 11, 2018 delayed entry date of service as noted above Assessment & Plan (1) Pneumonia: (2) COPD (chronic obstructive pulmonary disease): per admitting service notes: -Patient presenting from home with reports of generalized weakness and shortness of breath with minimal exertion -In the ED, CXR showing right basilar opacity consistent with pneumonia -Likely aspiration pneumonia secondary to diet noncompliance of speech therapy recommendations with underlying esophageal dysmotility and large hiatal hernia -Saturating well on room air, hemodynamically stable -WBC 14 K -S/P Zosyn in the ED, will continue with -No wheezing on exam, do not suspect COPD exacerbation; PRN nebs ordered -Speech therapy consult -PT/OT 06/10 respiratory status stable but still feels weak continue IV Zosyn follow speech therapy eval recommendations PT/OT (3) Esophageal dysmotility: (4) Hiatal hernia: per admitting [facility] notes -Diet ordered as per speech therapy recommendations during previous admission -Patient not a candidate to have hiatal hernia repaired until aortic valve is repaired first (5) Hypertension: -BP controlled, continue amlodipine and metoprolol (6) Aortic stenosis: -Severe, following with CT surgeon at [facility] [place] for possible repair - euvolemic (7) Gout: -Continue allopurinol (8) CKD (chronic kidney disease), stage III: - baseline creat runs in the low 1's - crea stable (9) Dyslipidemia: -Continue statin (10) Peripheral vascular disease: -Continue aspirin and Plavix (11) Neuropathy: -Continue gabapentin (12) BPH (benign prostatic hypertrophy): -Continue tamsulosin, dutasteride, and mirabegron (13) Renal lesion: -Noted during previous admission, needs outpatient renal MRI (14) DVT prophylaxis: -SQ heparin Disposition PT/OT eval declined Rehab before discussed with patient and daughter that he will benefit from Rehab if recommended again Subjective ff up for aspiration pneumonia seen resting in bed, comfortable daughter Amena at bedside patient states he still feels weak today no dyspnea, cough, chest pain, sputum tolerating soft diet well so far no other symptoms Physical Exam 2 Vital Signs (Past 24 Hours): Last Vital Signs Temp 37.3 C 06/10/18 23:07 Pulse 94 H 06/11/18 05:08 Resp 20 06/10/18 23:07 BP 138/80 06/10/18 23:07 Pulse Ox 90 06/10/18 23:07 Physical Exam: General- oriented x 3, not in distress, speaks in sentences with no effort or accessory muscle use Eyes- anicteric Neck- no JVD Lungs- clear breath sounds bilaterally, no crackles, no wheezing Heart- normal rate, regular rhythm; no murmurs Abdomen- normal bowel sounds, nondistended, soft, nontender Extremities- no pretibial edema, no calf tenderness Neuro- alert, oriented x 3; no gross focal neurologic deficits Skin- warm & dry Results & Data Laboratory Results all noted and reviewed
[2018-06-11] MEDS: ATORVASTATIN 40 MG TAB PO SCH (08:58)
[2018-06-11] MEDS: MAGNESIUM OXIDE 400 MG TAB PO SCH ×2 (08:58→21:15)
[2018-06-11] MEDS: ALLOPURINOL 300 MG TAB PO SCH (08:58)
[2018-06-11] MEDS: CLOPIDOGREL BISULFATE 75 MG TAB PO SCH (08:58)
[2018-06-11] MEDS: MULTIVITAMIN TAB PO SCH (08:58)
[2018-06-11] MEDS: METOPROLOL SUCC 50MG EXT REL TAB PO SCH (08:58)
[2018-06-11] MEDS: PANTOprazole 40 MG TAB PO SCH ×2 (08:58→21:15)
[2018-06-11] MEDS: AMLODIPINE BESYLATE 5 MG TAB PO SCH (08:58)
[2018-06-11] MEDS: TAMSULOSIN HCL 0.4 MG CAP PO SCH (08:58)
[2018-06-11] MEDS: TOLTERODINE TARTRATE LA 4 MG CAPCR PO SCH (08:58)
[2018-06-11] MEDS: MIRABEGRON ER 25 MG TAB PO SCH (08:58)
[2018-06-11] MEDS: GABAPENTIN 300 MG CAP PO SCH ×3 (08:58→21:15)
[2018-06-11] MEDS: ASPIRIN 81 MG ECTAB PO SCH (08:58)
[2018-06-11] MEDS: MOMETASONE FUROATE 14 PUFF/1 INHALER INH SCH ×2 (08:59→21:12)
[2018-06-11] MEDS: ACETAMINOPHEN 325 MG TAB PO PRN (15:26)
--- NOTE | 2018-06-11 20:16 | Hospitalist Progress Note ---
Date of Service June 11, 2018 Assessment & Plan (1) Pneumonia: -Patient presenting from home with reports of generalized weakness and shortness of breath with minimal exertion -In the ED, CXR showing right basilar opacity consistent with pneumonia -Likely aspiration pneumonia secondary to diet noncompliance of speech therapy recommendations with underlying esophageal -despite being on Zosyn and with negative cultures to date, patient continues to have fever -continue Zosyn, acetaminophen prn for fever -repeat blood cultures drawn on 06/11/18 (2) COPD (chronic obstructive pulmonary disease): stable (3) Esophageal dysmotility: evaluated by speech and swallow services and recommended aspiration precauations and soft bite sized slippery diet (4) Hiatal hernia: -Patient not a candidate to have hiatal hernia repaired until aortic valve is repaired first (5) Hypertension: -BP controlled, continue amlodipine and metoprolol (6) Aortic stenosis: -Severe, following with CT surgeon at [facility] [place] possible repair - euvolemic (7) Gout: -Continue allopurinol (8) CKD (chronic kidney disease), stage III: - baseline creat runs in the low 1's - creatinine stable (9) Dyslipidemia: -Continue statin (10) Peripheral vascular disease: -Continue aspirin and Plavix (11) Neuropathy: -Continue gabapentin (12) BPH (benign prostatic hypertrophy): -Continue tamsulosin, dutasteride, and mirabegron (13) Renal lesion: -Noted during previous admission, needs outpatient renal MRI (14) DVT prophylaxis: -SQ heparin Disposition a referral be made to [facility] as his first choice and [facility] as his second, referrals made. Patient will need pt/ot evaluations and insurance auth prior to discharge. Case management to follow Subjective Patient having coughing On room air. Denies chest pain or palpitations. denies abdominal pain. denies vomiting. denies chills had fever spike today and blood cultures re-drawn on 06/11/18 Physical Exam 2 Vital Signs (Past 24 Hours): Last Vital Signs Temp 38.3 C H 06/11/18 15:14 Pulse 90 06/11/18 18:53 Resp 16 06/11/18 18:53 BP 167/88 H 06/11/18 15:14 Pulse Ox 93 06/11/18 18:53 Constitutional: WD/WN, vitals as above Eyes: PERRL, conjunctivae normal, anicteric sclerae EOM intact bilaterally ENMT: external ear and nose normal, oropharynx normal Respiratory: normal respiratory effort, lungs clear to auscultation Cardiovascular: RRR, no murmur, no edema Gastrointestinal (Abdomen): normal bowel sounds, soft, nontender, no hepatosplenomegaly Musculoskeletal: no cyanosis or clubbing, extremities motor strength 5/5 Head/Neck/Chest: normocephalic and head atraumatic Neurologic: PERRL, EOMI, accommodation nl, no face palsy, no dysarthria CN' s II-XI intact bilaterally Psychiatric: A+Ox3, euthymic affect
[2018-06-12] MEDS: PIPERACILLIN/TAZOBACTAM 3.375 GM in DEXTROSE 5% 100 ML IV SCH ×2 (02:31→09:47)
[2018-06-12] MEDS: HEPARIN SOD 5,000 UNIT/0.5 ML VIAL SQ SCH ×3 (05:33→21:41)
[2018-06-12 05:57] LABS: Hematocrit (blood only) 37.2 % (42-52); Hemoglobin 12.1 g/dL (14.0-18.0); Mean Corpuscular Hgb Conc 32.5 g/dL (32-36); Mean Corpuscular Volume 85.9 fL (80-100); Platelet Count 207 K/uL (130-400); RDW Coefficient of Variation 13.9 % (11.5-14.5); RDW Standard Deviation 44.1 fL (36.4-46.3); Red Blood Count 4.33 M/uL (4.7-6.1)
[2018-06-12 06:34] LABS: Creatinine Clr Calc Pharmacy 48.9 ml/min; Est GFR (African American) 68.6; Est GFR (Non-African American) 59.2
[2018-06-12] MEDS: MAGNESIUM OXIDE 400 MG TAB PO SCH ×2 (07:57→20:05)
[2018-06-12] MEDS: GABAPENTIN 300 MG CAP PO SCH ×3 (07:58→20:05)
[2018-06-12] MEDS: METOPROLOL SUCC 50MG EXT REL TAB PO SCH (07:58)
[2018-06-12] MEDS: MIRABEGRON ER 25 MG TAB PO SCH (08:00)
[2018-06-12] MEDS: PANTOprazole 40 MG TAB PO SCH ×2 (08:00→20:05)
[2018-06-12] MEDS: ALLOPURINOL 300 MG TAB PO SCH (08:00)
[2018-06-12] MEDS: MULTIVITAMIN TAB PO SCH (08:00)
[2018-06-12] MEDS: ATORVASTATIN 40 MG TAB PO SCH (08:00)
[2018-06-12] MEDS: AMLODIPINE BESYLATE 5 MG TAB PO SCH (08:01)
[2018-06-12] MEDS: CLOPIDOGREL BISULFATE 75 MG TAB PO SCH (08:02)
[2018-06-12] MEDS: TOLTERODINE TARTRATE LA 4 MG CAPCR PO SCH (08:02)
[2018-06-12] MEDS: ASPIRIN 81 MG ECTAB PO SCH (08:03)
[2018-06-12] MEDS: MOMETASONE FUROATE 14 PUFF/1 INHALER INH SCH ×2 (08:03→20:05)
[2018-06-12] MEDS: TAMSULOSIN HCL 0.4 MG CAP PO SCH (08:37)
--- NOTE | 2018-06-12 09:06 | XRay Report ---
TWO VIEW CHEST CLINICAL HISTORY: Follow-up airspace consolidation. FINDINGS: AP and lateral chest radiographs are compared to study dated 06/09/2018 and correlated with chest CT dated 11/11/2008. The cardiomediastinal silhouette is unremarkable, noting atherosclerotic ca lcification of the thoracic aorta. There is a large hiatal hernia. Calcified pleural plaques are agai n seen at both lung bases. There are bibasilar airspace opacities. No large pleural effusion is ident ified. There is no pneumothorax. The skeletal structures are osteopenic. Degenerative change and hype rkyphosis are noted in the thoracic spine. IMPRESSION: 1. Bibasilar airspace opacities are unchanged from previous. Correlate clinically for evidence of pne umonia/aspiration pneumonitis. Radiographic follow-up to resolution is recommended. 2. Large hiatal hernia. 3. Calcified pleural plaques are again noted. Electronically signed by: Olman Poole M.D. 06/12/2018 9:05 AM
--- NOTE | 2018-06-12 16:21 | Hospitalist Progress Note ---
Date of Service June 12, 2018 Assessment & Plan (1) Pneumonia: -Patient presenting from home with reports of generalized weakness and shortness of breath with minimal exertion -In the ED, CXR showing right basilar opacity consistent with pneumonia -Likely aspiration pneumonia secondary to diet noncompliance of speech therapy recommendations with underlying esophageal -despite being on Zosyn from 06/08/18 and with negative cultures to date, patient continues to have fever and spiked a febrile temperature on 06/11/18 and blood cultures were repeated -CXR on 06/12/18 Bibasilar airspace opacities are unchanged from previous. patient appears clinically stable. WBC are downtrending. Will switch from Zosyn to Augmentin and Azithromycin (2) COPD (chronic obstructive pulmonary disease): stable (3) Esophageal dysmotility: evaluated by speech and swallow services and recommended aspiration precauations and soft bite sized slippery diet (4) Hiatal hernia: -Patient not a candidate to have hiatal hernia repaired until aortic valve is repaired first (5) Hypertension: -BP controlled, continue amlodipine and metoprolol (6) Aortic stenosis: -Severe, [place] [facility] [place] patient is euvolemic (7) Gout: -Continue allopurinol (8) CKD (chronic kidney disease), stage III: - baseline creat runs in the low 1's - creatinine stable (9) Dyslipidemia: -Continue statin (10) Peripheral vascular disease: -Continue aspirin and Plavix (11) Neuropathy: -Continue gabapentin (12) BPH (benign prostatic hypertrophy): -Continue tamsulosin, dutasteride, and mirabegron (13) Renal lesion: -Noted during previous admission, needs outpatient renal MRI (14) DVT prophylaxis: -SQ heparin Disposition a referral be made to [facility] and awaiting insurance authorization as per Case management Subjective Patient reports coughing has improves continues to be on room air Denies chest pain or palpitations. denies abdominal pain. denies vomiting. denies chills at this time there is is no fever today Physical Exam 2 Vital Signs (Past 24 Hours): Last Vital Signs Temp 37.7 C H 06/12/18 07:47 Pulse 94 H 06/12/18 07:47 Resp 20 06/12/18 07:47 BP 163/97 H 06/12/18 07:47 Pulse Ox 92 06/12/18 07:47 Constitutional: WD/WN, vitals as above Eyes: PERRL, conjunctivae normal, anicteric sclerae EOM intact bilaterally ENMT: external ear and nose normal, oropharynx normal Respiratory: normal respiratory effort, lungs clear to auscultation Cardiovascular: RRR, no murmur, no edema Gastrointestinal (Abdomen): normal bowel sounds, soft, nontender, no hepatosplenomegaly Musculoskeletal: no cyanosis or clubbing, extremities motor strength 5/5 Head/Neck/Chest: normocephalic and head atraumatic Neurologic: PERRL, EOMI, accommodation nl, no face palsy, no dysarthria CN' s II-XI intact bilaterally Psychiatric: A+Ox3, euthymic affect
[2018-06-12] MEDS ORDERED: AZITHROMYCIN 250 MG TAB PO ONE (17:00)
[2018-06-12] MEDS: AMOXICILLIN/CLAVULANATE 875 MG TAB PO SCH (18:15)
[2018-06-12] MEDS ORDERED: AMLODIPINE BESYLATE 5 MG TAB PO ONE (18:39)
[2018-06-13 06:01] LABS: Basophils # (auto) 0.02 K/uL (0-0.2); Basophils % (auto) 0.2 %; Hematocrit (blood only) 37.1 % (42-52); Hemoglobin 12.2 g/dL (14.0-18.0); Immature Granulocytes # (auto) 0.04 K/uL (0.00-0.02); Immature Granulocytes % (auto) 0.4 %; Lymphocytes # (auto) 1.34 K/uL (1.2-3.4); Lymphocytes % (auto) 13.2 %; Mean Corpuscular Hgb Conc 32.9 g/dL (32-36); Mean Corpuscular Volume 85.7 fL (80-100); Mean Platelet Volume 10.1 fL (7.4-10.4); Monocytes # (auto) 0.95 K/uL (0.11-0.59); Monocytes % (auto) 9.4 %; Neutrophils # (auto) 7.61 K/uL (1.4-6.5); Neutrophils % (auto) 74.8 %; Platelet Count 231 K/uL (130-400); RDW Coefficient of Variation 13.9 % (11.5-14.5); RDW Standard Deviation 43.5 fL (36.4-46.3); Red Blood Count 4.33 M/uL (4.7-6.1); White Blood Count 10.16 K/uL (4.8-10.8)
[2018-06-13] MEDS: HEPARIN SOD 5,000 UNIT/0.5 ML VIAL SQ SCH ×3 (06:20→20:38)
[2018-06-13 06:40] LABS: BUN Creatinine Ratio 13.2 (10-20); Calcium 8.3 mg/dl (8.5-10.1); Creatinine Clr Calc Pharmacy 44.9 ml/min; Est GFR (African American) 61.8; Est GFR (Non-African American) 53.4; Potassium 3.7 mmol/L (3.5-5.1)
[2018-06-13] MEDS: PANTOprazole 40 MG TAB PO SCH ×2 (08:26→20:38)
[2018-06-13] MEDS: MOMETASONE FUROATE 14 PUFF/1 INHALER INH SCH ×2 (08:26→20:37)
[2018-06-13] MEDS: AMOXICILLIN/CLAVULANATE 875 MG TAB PO SCH ×2 (08:27→15:18)
[2018-06-13] MEDS: TOLTERODINE TARTRATE LA 4 MG CAPCR PO SCH (08:27)
[2018-06-13] MEDS: MIRABEGRON ER 25 MG TAB PO SCH (08:27)
[2018-06-13] MEDS: MAGNESIUM OXIDE 400 MG TAB PO SCH ×2 (08:27→20:38)
[2018-06-13] MEDS: ASPIRIN 81 MG ECTAB PO SCH (08:27)
[2018-06-13] MEDS: AZITHROMYCIN 250 MG TAB PO SCH (08:27)
[2018-06-13] MEDS: TAMSULOSIN HCL 0.4 MG CAP PO SCH (08:27)
[2018-06-13] MEDS: MULTIVITAMIN TAB PO SCH (08:28)
[2018-06-13] MEDS: AMLODIPINE BESYLATE 5 MG TAB PO SCH (08:28)
[2018-06-13] MEDS: METOPROLOL SUCC 50MG EXT REL TAB PO SCH (08:28)
[2018-06-13] MEDS: GABAPENTIN 300 MG CAP PO SCH ×3 (08:28→20:38)
[2018-06-13] MEDS: ALLOPURINOL 300 MG TAB PO SCH (08:28)
[2018-06-13] MEDS: ATORVASTATIN 40 MG TAB PO SCH (08:29)
[2018-06-13] MEDS: CLOPIDOGREL BISULFATE 75 MG TAB PO SCH (08:29)
--- NOTE | 2018-06-13 17:24 | Hospitalist Progress Note ---
Date of Service June 13, 2018 Assessment & Plan (1) Pneumonia: -Patient presenting from home with reports of generalized weakness and shortness of breath with minimal exertion -In the ED, CXR showing right basilar opacity consistent with pneumonia -Likely aspiration pneumonia secondary to diet noncompliance of speech therapy recommendations with underlying esophageal -despite being on Zosyn from 06/08/18 and with negative cultures to date, patient continues to have fever and spiked a febrile temperature on 06/11/18 and blood cultures were repeated and also no growth -CXR on 06/12/18 Bibasilar airspace opacities are unchanged from previous. patient appears clinically stable. WBC are downtrending. Will switch from Zosyn to Augmentin and Azithromycin T max on 06/12/18 is 38.3 Celsius T max on 06/13/18 is 37.8 Celsius so there is some improvement in temperature continue Augmentin and Azithromycin (2) COPD (chronic obstructive pulmonary disease): stable (3) Esophageal dysmotility: evaluated by speech and swallow services and recommended aspiration precauations and soft bite sized slippery diet (4) Hiatal hernia: -Patient not a candidate to have hiatal hernia repaired until aortic valve is repaired first (5) Hypertension: -BP controlled, continue amlodipine and metoprolol (6) Aortic stenosis: -Severe, following with CT surgeon [place] [facility] possible repair patient is euvolemic (7) Gout: -Continue allopurinol (8) CKD (chronic kidney disease), stage III: - baseline creat runs in the low 1's - creatinine stable (9) Dyslipidemia: -Continue statin (10) Peripheral vascular disease: -Continue aspirin and Plavix (11) Neuropathy: -Continue gabapentin (12) BPH (benign prostatic hypertrophy): -Continue tamsulosin, dutasteride, and mirabegron (13) Renal lesion: -Noted during previous admission, will need outpatient renal MRI (14) DVT prophylaxis: -SQ heparin Disposition: Patient has been evaluated by PT/OT and that concerns that patient may be a fall risk patient was denied physical therapy by insurance but insurance may approve the penitentiary level of care as per case management, the patient and family have decided that they prefer [facility] since one of the patients daughters works there and are awaiting bed availability patient's daughter [phone], Subjective continues to be on room air Patient with some cough on exam Denies chest pain or palpitations. denies abdominal pain. denies vomiting. denies chills T max on 06/12/18 is 38.3 Celsius T max on 06/13/18 is 37.8 Celsius so there is some improvement in temperature Physical Exam 2 Vital Signs (Past 24 Hours): Last Vital Signs Temp 37.8 C H 06/13/18 16:17 Pulse 90 06/13/18 16:17 Resp 21 06/13/18 16:17 BP 146/86 H 06/13/18 16:17 Pulse Ox 92 06/13/18 16:17 Constitutional: WD/WN, vitals as above Eyes: PERRL, conjunctivae normal, anicteric sclerae EOM intact bilaterally ENMT: external ear and nose normal, oropharynx normal Respiratory: normal respiratory effort, lungs clear to auscultation Cardiovascular: RRR, no murmur, no edema Gastrointestinal (Abdomen): normal bowel sounds, soft, nontender, no hepatosplenomegaly Musculoskeletal: no cyanosis or clubbing, extremities motor strength 5/5 Head/Neck/Chest: normocephalic and head atraumatic Neurologic: PERRL, EOMI, accommodation nl, no face palsy, no dysarthria CN' s II-XI intact bilaterally Psychiatric: A+Ox3, euthymic affect
[2018-06-14] MEDS: HEPARIN SOD 5,000 UNIT/0.5 ML VIAL SQ SCH ×2 (05:19→13:41)
[2018-06-14] MEDS: METOPROLOL SUCC 50MG EXT REL TAB PO SCH (08:06)
[2018-06-14] MEDS: ALLOPURINOL 300 MG TAB PO SCH (08:06)
[2018-06-14] MEDS: TAMSULOSIN HCL 0.4 MG CAP PO SCH (08:06)
[2018-06-14] MEDS: MAGNESIUM OXIDE 400 MG TAB PO SCH (08:07)
[2018-06-14] MEDS: GABAPENTIN 300 MG CAP PO SCH ×2 (08:07→13:41)
[2018-06-14] MEDS: MULTIVITAMIN TAB PO SCH (08:07)
[2018-06-14] MEDS: ATORVASTATIN 40 MG TAB PO SCH (08:07)
[2018-06-14] MEDS: AMLODIPINE BESYLATE 5 MG TAB PO SCH (08:07)
[2018-06-14] MEDS: PANTOprazole 40 MG TAB PO SCH (08:07)
[2018-06-14] MEDS: CLOPIDOGREL BISULFATE 75 MG TAB PO SCH (08:07)
[2018-06-14] MEDS: MIRABEGRON ER 25 MG TAB PO SCH (08:07)
[2018-06-14] MEDS: ASPIRIN 81 MG ECTAB PO SCH (08:08)
[2018-06-14] MEDS: AMOXICILLIN/CLAVULANATE 875 MG TAB PO SCH (08:08)
[2018-06-14] MEDS: TOLTERODINE TARTRATE LA 4 MG CAPCR PO SCH (08:08)
[2018-06-14] MEDS: MOMETASONE FUROATE 14 PUFF/1 INHALER INH SCH (08:08)
[2018-06-14] MEDS: AZITHROMYCIN 250 MG TAB PO SCH (08:12)
[2018-06-14 10:15] LABS: Basophils # (auto) 0.02 K/uL (0-0.2); Basophils % (auto) 0.2 %; Eosinophils # (auto) 0.31 K/uL (0-0.5); Eosinophils % (auto) 3.1 %; Hematocrit (blood only) 36.6 % (42-52); Hemoglobin 11.9 g/dL (14.0-18.0); Immature Granulocytes # (auto) 0.08 K/uL (0.00-0.02); Immature Granulocytes % (auto) 0.8 %; Lymphocytes # (auto) 1.37 K/uL (1.2-3.4); Lymphocytes % (auto) 13.6 %; Mean Corpuscular Hgb Conc 32.5 g/dL (32-36); Mean Corpuscular Volume 86.5 fL (80-100); Mean Platelet Volume 9.9 fL (7.4-10.4); Monocytes # (auto) 0.49 K/uL (0.11-0.59); Monocytes % (auto) 4.9 %; Neutrophils # (auto) 7.78 K/uL (1.4-6.5); Neutrophils % (auto) 77.4 %; Platelet Count 258 K/uL (130-400); RDW Coefficient of Variation 14.1 % (11.5-14.5); RDW Standard Deviation 44.4 fL (36.4-46.3); Red Blood Count 4.23 M/uL (4.7-6.1); White Blood Count 10.05 K/uL (4.8-10.8)
[2018-06-14 10:45] LABS: BUN Creatinine Ratio 15.6 (10-20); C Reactive Protein 10.3 mg/dl (0-0.29); Calcium 8.5 mg/dl (8.5-10.1); Est GFR (African American) 53.7; Est GFR (Non-African American) 46.4; Potassium 3.4 mmol/L (3.5-5.1)
--- NOTE | 2018-06-14 13:37 | Hospitalist Progress Note ---
Date of Service June 14, 2018 Assessment & Plan (1) Pneumonia: Pneumonia (aspiration of right lower lobe) -Patient presenting from home with reports of generalized weakness and shortness of breath with minimal exertion -In the ED, CXR showing right basilar opacity consistent with pneumonia -Likely aspiration pneumonia secondary to diet noncompliance of speech therapy recommendations with underlying esophageal -despite being on Zosyn from 06/08/18 and with negative cultures to date, patient continues to have fever and spiked a febrile temperature on 06/11/18 and blood cultures were repeated and also no growth -CXR on 06/12/18 Bibasilar airspace opacities are unchanged from previous. patient appears clinically stable. WBC are downtrending. Will switch from Zosyn to Augmentin and Azithromycin T max on 06/12/18 is 38.3 Celsius T max on 06/13/18 is 37.8 Celsius T max on 06/14/18 is 37.3 Celsiu Patient has been continued on Augmentin and Azithromycin, Patient to be discharged with 5 more days of antibiotics and has follow up with primary care doctor (2) COPD (chronic obstructive pulmonary disease): stable (3) Esophageal dysmotility: Speech Therapist Recommendations Slippery soft diet Choose foods that are moist, loose, slippery; avoid foods that are doughy, sticky, pasty, thick; add liquids and condiments to food to make them more slippery as needed Alternate solids and liquids Small frequent meals Stay upright with meals for at least 30 minutes (4) Hiatal hernia: -Patient not a candidate to have hiatal hernia repaired until aortic valve is repaired first (5) Hypertension: -BP controlled, continue amlodipine and metoprolol (6) Aortic stenosis: -Severe, following with CT surgeon at [facility] [place] for possible repair patient is euvolemic (7) Gout: -Continue allopurinol (8) CKD (chronic kidney disease), stage III: - baseline creat runs in the low 1's - creatinine stable (9) Dyslipidemia: -Continue statin (10) Peripheral vascular disease: -Continue aspirin and Plavix (11) Neuropathy: -Continue gabapentin (12) BPH (benign prostatic hypertrophy): -Continue tamsulosin, dutasteride, and mirabegron (13) Renal lesion: -Noted during previous admission, will need outpatient renal MRI 02/08/19 17:34 US renal/blad retro comp Routine RENAL ULTRASOUND HISTORY: f/u renal lesions on CT scan COMPARISON: Abdomen and pelvis CT 05/30/2018. FINDINGS: Right kidney: 10.9 cm. No hydronephrosis. Severe cortical thinning. Multiple cysts identified within the right kidney. The largest interpolar cyst is septated and measures 5 cm. There is a complex upper pole lesion measuring 2.7 cm with internal echoes. Therefore, this could represent a complex cyst are partially solid lesion. Left kidney: 12.4 cm. No hydronephrosis. Mild cortical thinning. There is a 2.8 cm cyst. Bladder: Not well distended and therefore not well evaluated. IMPRESSION: 1. Bilateral renal cysts. 2. There is also a 2.7 cm cyst within the right kidney which favors a complex cyst. However, dedicated nonemergent renal MRI is recommended to exclude a solid lesion. (14) DVT prophylaxis: -SQ heparin Disposition: Discharge to alf facility, patient's daughter to transport to [facility] Discharge Diagnosis Pneumonia (aspiration of right lower lobe), COPD, Esophageal dysmotility, Hiatal Hernia, Aortic stenosis, CKD stage III, Benign Prostate Hypertrophy, Renal lesion Discharge instructions Speech Therapist Recommendations Slippery soft diet Choose foods that are moist, loose, slippery; avoid foods that are doughy, sticky, pasty, thick; add liquids and condiments to food to make them more slippery as needed Alternate solids and liquids Small frequent meals Stay upright with meals for at least 30 minutes Patient should take antibiotics of Augmentin and Azithromycin for 5 more days Follow up appointments 06/19/2018 11:00 AM Provider Patrick Albarran MD Department Family [facility] 07/31/2018 9:30 AM Provider Mesh Worker 1 Department Cardiac Studies, [facility] 08/07/2018 11:00 AM Provider Vaibhav Huntley MD Department Cardiology, [facility] 08/20/2018 1:30 PM Provider Patrick Albarran MD Department Family [facility] 09/09/2018 9:00 AM Provider Morales Ybarra MD Department Rheumatology [facility] 09/24/2018 9:30 AM Provider Deep Morocho DO Department Cardiology, [facility] Subjective T max on 06/12/18 is 38.3 Celsius T max on 06/13/18 is 37.8 Celsius T max on 06/14/18 is 37.3 Celsius continues to be on room air Denies chest pain or palpitations. denies abdominal pain. denies vomiting. denies chills Physical Exam 2 Vital Signs (Past 24 Hours): Last Vital Signs Temp 37.3 C 06/14/18 12:34 Pulse 88 06/14/18 12:34 Resp 18 06/14/18 12:34 BP 142/86 H 06/14/18 12:34 Pulse Ox 90 06/14/18 12:34 Constitutional: WD/WN, vitals as above Eyes: PERRL, conjunctivae normal, anicteric sclerae EOM intact bilaterally ENMT: external ear and nose normal, oropharynx normal Respiratory: normal respiratory effort, lungs clear to auscultation Cardiovascular: RRR, no murmur, no edema Gastrointestinal (Abdomen): normal bowel sounds, soft, nontender, no hepatosplenomegaly Musculoskeletal: no cyanosis or clubbing, extremities motor strength 5/5 Head/Neck/Chest: normocephalic and head atraumatic Neurologic: PERRL, EOMI, accommodation nl, no face palsy, no dysarthria CN' s II-XI intact bilaterally Psychiatric: A+Ox3, euthymic affect
--- NOTE | 2018-06-14 13:46 | Discharge Summary ---
Date of Service June 14, 2018 Admission HPI Per Admitting Provider 87-year-old male who presents the ED for evaluation of generalized weakness and shortness of breath. Patient was recently admitted to [facility] 05/30 through 06/05 for weight loss and poor appetite. During that admission, patient underwent barium swallow that demonstrated severe esophageal dysmotility. He also went underwent an EGD that showed a tortuous esophagus. He had a mild MAXI that resolved with IVF. He was also noted to have a large hiatal hernia however given his underlying severe aortic stenosis, he was not felt to be a good surgical candidate for repair. Patient was offered placement for rehab at discharge however he declined. Patient reports that yesterday, he was in the bathroom getting cleaned up when he felt very weak and had to lean against the bathtub and was unable to get up off the floor. He reports that he did not fall. He was on the floor for approximately 30 minutes before his family found him. He reports shortness of breath with minimal exertion. No cough or sputum production. He denies fevers and chills. It does not appear as though patient is following recommendations from speech therapist from prior admission. He reports his appetite has improved. No abdominal pain, nausea, vomiting, diarrhea. He denies chest pain, palpitations, lightheadedness, dizziness, diaphoresis, syncopal events. He has chronic lower extremity edema which is unchanged baseline. No urinary symptoms. In the ED, CXR showing right basilar opacity suggestive of pneumonia. WBC 14 K, saturating well on room air, hemodynamically stable. Patient was given nebulizer treatment, IVF, IV Zosyn. Admission Exam Per Admitting Provider Constitutional: WD/WN, vitals as above Eyes: PERRL, conjunctivae normal, anicteric sclerae ENMT: external ear and nose normal, oropharynx normal Respiratory: normal respiratory effort; no respiratory distress Auscultation: + diminished lung sounds; no rales, no rhonchi and no wheezes Cardiovascular: Rate/Rhythm: regular rate and regular rhythm Heart Sounds: + murmur (Systolic, grade 4/6) Vessels: normal peripheral pulses Extremities: + edema (+1-2 BLE, R > L) Gastrointestinal (Abdomen): normal bowel sounds, soft, nontender, no hepatosplenomegaly Musculoskeletal: Extremities: + abnormal strength, no cyanosis and no clubbing Skin: no rashes, warm and dry Neurologic: PERRL, EOMI, accommodation nl, no face palsy, no dysarthria Psychiatric: A+Ox3, euthymic affect Principal Diagnosis Pneumonia (aspiration of right lower lobe), COPD, Esophageal dysmotility, Hiatal Hernia, Aortic stenosis, CKD stage III, Benign Prostate Hypertrophy, Renal lesion Discharge Exam Constitutional WD/WN, vitals as above Eyes PERRL, conjunctivae normal, anicteric sclerae EOM intact bilaterally ENMT external ear and nose normal, oropharynx normal Respiratory normal respiratory effort, lungs clear to auscultation Cardiovascular RRR, no murmur, no edema Gastrointestinal (Abdomen) normal bowel sounds, soft, nontender, no hepatosplenomegaly Musculoskeletal no cyanosis or clubbing, extremities motor strength 5/5 Head/Neck/Chest: normocephalic and head atraumatic Neurologic PERRL, EOMI, accommodation nl, no face palsy, no dysarthria CN's II-XI intact bilaterally Psychiatric A+Ox3, euthymic affect Discharge Data Allergies Allergy/AdvReac Type Severity Reaction Status Date / Time morphine Allergy Unknown "out of it Verified 06/09/18 15:21 for days" colchicine AdvReac Mild GI upset Verified 06/09/18 15:21 [place] [employer]atives AdvReac Unknown STOMACH Verified 06/09/18 15:21 ACHE FROM [employer] tomato AdvReac Unknown HEADACHE Verified 06/09/18 15:21 FROM [facility] Consultations 06/09/18 17:33 ED Decision to Admit Stat 06/09/18 20:08 Consult Case Management - Discharge Planning Routine Hospital Course (1) Pneumonia: Pneumonia (aspiration of right lower lobe) -Patient presenting from home with reports of generalized weakness and shortness of breath with minimal exertion -In the ED, CXR showing right basilar opacity consistent with pneumonia -Likely aspiration pneumonia secondary to diet noncompliance of speech therapy recommendations with underlying esophageal -despite being on Zosyn from 06/08/18 and with negative cultures to date, patient continues to have fever and spiked a febrile temperature on 06/11/18 and blood cultures were repeated and also no growth -CXR on 06/12/18 Bibasilar airspace opacities are unchanged from previous. patient appears clinically stable. WBC are downtrending. Will switch from Zosyn to Augmentin and Azithromycin T max on 06/12/18 is 38.3 Celsius T max on 06/13/18 is 37.8 Celsius T max on 06/14/18 is 37.3 Celsiu Patient has been continued on Augmentin and Azithromycin, Patient to be discharged with 5 more days of antibiotics and has follow up with primary care doctor (2) COPD (chronic obstructive pulmonary disease): stable (3) Esophageal dysmotility: Speech Therapist Recommendations Slippery soft diet Choose foods that are moist, loose, slippery; avoid foods that are doughy, sticky, pasty, thick; add liquids and condiments to food to make them more slippery as needed Alternate solids and liquids Small frequent meals Stay upright with meals for at least 30 minutes (4) Hiatal hernia: -Patient not a candidate to have hiatal hernia repaired until aortic valve is repaired first (5) Hypertension: -BP controlled, continue amlodipine and metoprolol (6) Aortic stenosis: -Severe, [place] [facility] patient is euvolemic (7) Gout: -Continue allopurinol (8) CKD (chronic kidney disease), stage III: - baseline creat runs in the low 1's - creatinine stable (9) Dyslipidemia: -Continue statin (10) Peripheral vascular disease: -Continue aspirin and Plavix (11) Neuropathy: -Continue gabapentin (12) BPH (benign prostatic hypertrophy): -Continue tamsulosin, dutasteride, and mirabegron (13) Renal lesion: -Noted during previous admission, will need outpatient renal MRI 05/30/18 17:34 US renal/blad retro comp Routine RENAL ULTRASOUND HISTORY: f/u renal lesions on CT scan COMPARISON: Abdomen and pelvis CT 05/30/2018. FINDINGS: Right kidney: 10.9 cm. No hydronephrosis. Severe cortical thinning. Multiple cysts identified within the right kidney. The largest interpolar cyst is septated and measures 5 cm. There is a complex upper pole lesion measuring 2.7 cm with internal echoes. Therefore, this could represent a complex cyst are partially solid lesion. Left kidney: 12.4 cm. No hydronephrosis. Mild cortical thinning. There is a 2.8 cm cyst. Bladder: Not well distended and therefore not well evaluated. IMPRESSION: 1. Bilateral renal cysts. 2. There is also a 2.7 cm cyst within the right kidney which favors a complex cyst. However, dedicated nonemergent renal MRI is recommended to exclude a solid lesion. (14) DVT prophylaxis: -SQ heparin Disposition: [facility]charge to [facility] facility, patient's daughter to transport to [facility] Discharge Diagnosis Pneumonia (aspiration of right lower lobe), COPD, Esophageal dysmotility, Hiatal Hernia, Aortic stenosis, CKD stage III, Benign Prostate Hypertrophy, Renal lesion Discharge instructions Speech Therapist Recommendations Slippery soft diet Choose foods that are moist, loose, slippery; avoid foods that are doughy, sticky, pasty, thick; add liquids and condiments to food to make them more slippery as needed Alternate solids and liquids Small frequent meals Stay upright with meals for at least 30 minutes Patient should take antibiotics of Augmentin and Azithromycin for 5 more days Follow up appointments 06/19/2018 11:00 AM Provider Patrick Albarran MD Department Family [facility] 07/31/2018 9:30 AM Provider Gun Barrel Finisher 1 Department Cardiac Studies, [facility] 08/07/2018 11:00 AM Provider Vaibhav Huntley MD Department Cardiology, [facility] 08/20/2018 1:30 PM Provider Patrick Albarran MD Department [facility] 09/09/2018 9:00 AM Provider Morales Ybarra MD Department Rheumatology [facility] 09/24/2018 9:30 AM Provider Deep Morocho DO Department Cardiology, [facility] Total Time Total Time Spent Total Time Spent (In Minutes): 40 minutes Total Time Includes: Examination of the Patient, Discharge Planning and Medication Reconciliation Discharge Plan Discharge Items Patient Disposition: Transfer Intermediate [facility] Reason For Visit: PNEUMONIA Discharge Diagnosis: Pneumonia (aspiration of right lower lobe), COPD, Esophageal dysmotility, Hiatal Hernia, Aortic stenosis, CKD stage III, Benign Prostate Hypertrophy, Renal lesion, Condition: Good Discharge Goals: Improve disease control Activity: Resume your previous activity Non-emergency contact: Primary Care Provider Call non-emergency contact if: you have any medication questions Diet: Low Sodium (2gm) Diet Texture: Mechanical soft (ground) Diet Comment: see additional provider instructions Addtl Provider Instructions: Speech Therapist Recommendations Slippery soft diet Choose foods that are moist, loose, slippery; avoid foods that are doughy, sticky, pasty, thick; add liquids and condiments to food to make them more slippery as needed Alternate solids and liquids Small frequent meals Stay upright with meals for at least 30 minutes Patient should take antibiotics of Augmentin and Azithromycin for 5 more days Follow up appointments 06/19/2018 11:00 AM Provider Patrick Albarran MD Department Family [facility] 07/31/2018 9:30 AM Provider Gun Barrel Finisher 1 Department Cardiac Studies, [facility] 08/07/2018 11:00 AM Provider Vaibhav Huntley MD Department Cardiology, [facility] 08/20/2018 1:30 PM Provider [facility] 9:00 AM Provider Morales Ybarra MD Department Rheumatology [facility] 09/24/2018 9:30 AM Provider Deep Morocho DO Department Cardiology, [facility] Prescriptions: New azithromycin [Zithromax] 250 mg Tablet 250 mg PO QAM 5 Days Qty: 5 RF: 0 amoxicillin-pot clavulanate 875-125 mg Tablet 1 tab PO BIDM 5 Days Qty: 10 RF: 0 Continue tamsulosin 0.4 mg capsule 0.4 mg PO DAILY RF: 0 mometasone [Asmanex Twisthaler] 220 mcg (120 doses) Aerosol Powdr Breath Activated 2 inh INHALATION BID RF: 0 magnesium oxide 400 mg Capsule 400 mg PO BID RF: 0 ipratropium-albuterol [Combivent Respimat] 20-100 mcg/actuation Mist 1 puff INHALATION QID PRN (Reason: Shortness Of Breath) RF: 0 pantoprazole 40 mg Tablet,Delayed Release (Dr/Ec) 40 mg PO BID 30 Days Qty: 60 RF: 1 allopurinol 300 mg tablet 300 mg PO QAM RF: 0 atorvastatin 40 mg tablet 40 mg PO QAM RF: 0 metoprolol succinate 50 mg tablet extended release 24 hr 50 mg PO QAM RF: 0 amlodipine 2.5 mg tablet 2.5 mg PO QAM RF: 0 clopidogrel 75 mg tablet 75 mg PO QAM RF: 0 aspirin 81 mg Tablet,Delayed Release (Dr/Ec) 81 mg PO QAM RF: 0 dutasteride 0.5 mg capsule 0.5 mg PO QAM RF: 0 tolterodine 4 mg capsule,extended release 24hr 4 mg PO DAILY RF: 0 mirabegron 50 mg tablet extended release 24 hr 50 mg PO DAILY RF: 0 gabapentin 300 mg capsule 300 mg PO TID RF: 0 multivitamin Tablet 1 tab PO DAILY RF: 0 Discontinued tramadol 50 mg Tablet 50 - 100 mg PO Q6H PRN (Reason: Pain) RF: 0 Stand-Alone Forms: [facility] Discharge Orders: Discharge Order (Routine); Ordered 06/14/18 Ordered By: Julian Ozuna Skilled Items Patient informed of condition?: Yes DNR: No Discharge Level of Care: Skilled Communicable Disease: No Discharge Prognosis: Stable Admission Data Admit Date/Time: 06/11/18 16:00 Attending Provider: Julian Ozuna Admit Provider: Khalif De La Cruz Primary Care Provider: Patrick Albarran Other Providers: Khalif De La Cruz Service: Medical Other Interventions: Discharge Summary Assessment (RN) Last Done: 06/14/18 12:34
== END 2018-06-14 14:30 | DRG 179 ==
LOC: 2N 14:08 → ED 14:08 → SUATTDRO 18:04 → 2N 19:10

== ENCOUNTER 2018-10-01 20:06 | Inpatient (IN) ==
--- OUTSIDE RECORDS SUMMARY | 2018-10-01 20:09 | External Medical Summary | Continuity of Care Document ---
:1930 Author Name Stephan Khan, Provider Address Unavailable Unavailable , Care Team Providers Name Role Phone Zach Boyer PA-C Unavailable [email or web address] Luis A Khan Unavailable [email or web address] Jorge Khan Unavailable [email or web address] Martin GIRALDO Unavailable Unavailable Unavailable Unavailable Unavailable Problems Anemia (285.9) (D64.9) Gastritis (535.50) (K29.70) Osteoporosis (733.00) (M81.0) Gout, joint (274.00) (M10.9) Feeling weak (780.79) (R53.1) 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) Osteoarthrosis, 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.94) (M19.049) 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) Osteomyelitis of toe (730.27) (M86.9) Urinary tract infection (599.0) (N39.0) Urinary frequency (788.41) (R35.0) Urinary retention (788.20) (R33.9) BPH (benign prostatic hyperplasia) (600.00) (N40.0) Enlarged prostate with lower urinary tract symptoms (LUTS) ( 600.01) (N40.1) Elevated prostate specific antigen (PSA) (790.93) (R97.20) PAD (peripheral artery disease) (443.9) (I73.9) Benign prostatic hyperplasia with urinary obstruction (600.0 1) (N40.1) Nephrolithiasis (592.0) (N20.0) Urinary urgency (788.63) (R39.15) Urinary symptom or sign (788.99) (R39.9) Chronic venous insufficiency (459.81) (I87.2) Ulcer of lower extremity (707.10) (L97.909) Allergies and Adverse Reactions No Known Drug Allergies (Allergy) Medications Pantoprazole Sodium 40 MG Oral Tablet Delayed Release; TAKE 1 TABLET DAILY. Bill Patel Quantity: 90 Refills: 3 Potassium Citrate ER 10 MEQ (1080 MG) Or al Tablet Extended Release; TAKE 1 TABLET 3 TIMES DAILY. Bill Gunn Start: 05-Apr-2014 Quantity: 270 Refills: 3 Allopurinol 300 MG Oral Tablet; Take 1 tablet daily Bill Patel Start: 25-Jun-2014 Quantity: 90 Refills: 3 Vitamin C TABS Refills: 0 Vitamin B Complex CAPS Refills: 0 Alpha-Lipoic Acid 600 MG Oral Capsule Refills: 0 Metoprolol Tartrate TABS Refills: 0 amLODIPine Besylate TABS Refills: 0 Asmanex 120 Metered Doses 220 MCG/INH In halation Aerosol Powder Breath Activated Start: 18-Jul-2013 Quantity: 3 Refills: 0 Atorvastatin Calcium 40 MG Oral Tablet S tart: 16-Mar-2013 Quantity: 90 Refills: 0 Combivent Respimat 20-100 MCG/ACT Inhalation Aerosol Solutio n Start: 26-Jan-2014 Quantity: 12 Refills: 0 Dutasteride 0.5 MG Oral Capsule; TAKE 1 CAPSULE BY MOUTH ONCE DAILY - GENERIC AVODART Bill Gunn Start: 05-Apr-2014 Quantity: 90 Refills: 3 Tamsulosin HCl - 0.4 MG Oral Capsule; TA KE 1 CAPSULE Daily 1/2 hour after supper Bill Gunn Start: 05-Apr-2014 Quantity: 90 Refills: 3 Myrbetriq 50 MG Oral Tablet Extended Release 24 Hour; Take 1 tablet daily Bill Gunn Start: 22-Jul-2014 Quantity: 90 Refills: 3 Clopidogrel Bisulfate 75 MG Oral Tablet; TAKE (1) TABL ET BY MOUTH EVERY DAY MIGUEL A Boyer Start: 17-Jan-2018 Quantity: 30 Refills: 5 Tolterodine Tartrate ER 4 MG Oral Capsul e Extended Release 24 Hour; TAKE 1 CAPSULE Daily Bill Gunn Start: 27-Feb-2016 Quantity: 90 Refills: 3 Vitamin D3 TABS; take 1 tablet by mouth once daily Refills: 0 predniSONE 5 MG Oral Tablet; TAKE 1 TABLET Bill Patel Quantity: 90 Refills: 3 Procedures History of Renal Lithotripsy Status: Com pleted History of Back Surgery Status: Complete d Immunizations Immunizations not documented Family History Brother Family history of kidney stones (V18.69) (Z84.1) Status: Act abdulaziz Social History - Smoking Status Former smoker Plan of Treatment Planned Encounters Appointment; Jim Gunn M.D. Start: 16-Dec-2018 11:45 Request Planned Observations Planned Goals not documented Results No Known Results Results not documented Encounters Appointment; Urology, Room 6 11-Sep-2018 9:00 Encounter Diagnosis: Problem not documented Appointment; Urology, Room 6 14-Aug-2018 10:30 Encounter Diagnosis: Problem not documented Appointment; Urology, Room 6 10-Jul-2018 10:30 Encounter Diagnosis: Problem not documented Appointment; [facility], [place] [address] 25-Jun-2018 14:00 Encounter Diagnosis: Problem not documented Appointment; Jim Gunn M.D. 18-Jun-2018 10:45 Encounter Diagnosis: Problem not documented Appointment; Deisi Mckeon PA-C 29-May-2018 11:30 Encounter Diagnosis: Problem not documented Appointment; Urology, Room 6 06-Mar-2018 9:45 Encounter Diagnosis: Problem not documented Appointment; [facility], [place] [address] 25-Feb-2018 16:00 Encounter Diagnosis: Problem not documented Appointment; Moe Kendrick M.D. 25-Feb-2018 15:30 Encounter Diagnosis: Problem not documented Appointment; Urology, Room 6 30-Jan-2018 9:45 Encounter Diagnosis: Problem not documented Appointment; Moe Kendrick M.D. 18-Dec-2017 10:15 Encounter Diagnosis: Problem not documented Appointment; Jim Gunn M.D. 16-Dec-2017 10:30 Encounter Diagnosis: Problem not documented Appointment; Urology, Room 6 21-Nov-2017 11:15 Encounter Diagnosis: Problem not documented Appointment; Urology, Room 6 14-Nov-2017 11:15 Encounter Diagnosis: Problem not documented Appointment; Urology, Room 6 07-Nov-2017 11:15 Encounter Diagnosis: Problem not documented Appointment; [facility], [place] [address] 31-Oct-2017 13:45 Encounter Diagnosis: Problem not documented Appointment; Urology, Room 6 31-Oct-2017 11:00 Encounter Diagnosis: Problem not documented Appointment; Urology, Room 6 24-Oct-2017 11:00 Encounter Diagnosis: Problem not documented Appointment; Urology, Room 6 10-Oct-2017 11:00 Encounter Diagnosis: Problem not documented Appointment; Urology, Room 6 03-Oct-2017 9:15 Encounter Diagnosis: Problem not documented Appointment; Urology, Room 6 26-Sep-2017 11:15 Encounter Diagnosis: Problem not documented Appointment; Urology, Room 6 19-Sep-2017 11:00 Encounter Diagnosis: Problem not documented Appointment; Urology, Room 6 12-Sep-2017 11:00 Encounter Diagnosis: Problem not documented Appointment; Urology, Room 6 05-Sep-2017 11:00 Encounter Diagnosis: Problem not documented Appointment; Jim Gunn M.D. 29-Aug-2017 14:00 Encounter Diagnosis: Problem not documented Appointment; Urology, Room 7 29-Aug-2017 13:55 Encounter Diagnosis: Problem not documented Appointment; Urology, Room 6 29-Aug-2017 13:00 Encounter Diagnosis: Problem not documented Appointment; Jim Gunn M.D. 16-Jul-2017 11:45 Encounter Diagnosis: Problem not documented Appointment; Jim Gunn M.D. 20-Mar-2017 13:10 Encounter Diagnosis: Problem not documented Appointment; Jim Gunn M.D. 16-Dec-2018 11:45 Encounter Diagnosis: Problem not documented
[2018-10-01 21:37] LABS: Basophils # (auto) 0.03 K/uL (0-0.2); Basophils % (auto) 0.5 %; Eosinophils # (auto) 0.41 K/uL (0-0.5); Eosinophils % (auto) 6.7 %; Hemoglobin 12.4 g/dL (14.0-18.0); Immature Granulocytes # (auto) 0.02 K/uL (0.00-0.02); Immature Granulocytes % (auto) 0.3 %; Lymphocytes # (auto) 1.35 K/uL (1.2-3.4); Mean Corpuscular Hgb Conc 33.5 g/dL (32-36); Mean Corpuscular Volume 80.4 fL (80-100); Monocytes # (auto) 0.66 K/uL (0.11-0.59); Monocytes % (auto) 10.8 %; Neutrophils # (auto) 3.66 K/uL (1.4-6.5); Neutrophils % (auto) 59.7 %; Platelet Count 166 K/uL (130-400); RDW Coefficient of Variation 14.6 % (11.5-14.5); White Blood Count 6.13 K/uL (4.8-10.8)
--- NOTE | 2018-10-01 21:53 | XRay Report ---
XR tibia fibula LT 2V CLINICAL HISTORY: 87 years-old Male presenting with eval for osteo. TECHNIQUE: Frontal and lateral views of the left lower leg were obtained. COMPARISON: 01/16/2018. FINDINGS: Knee joint and ankle mortise grossly congruent. Osteopenia. Allowing for this, no gross evidence of o sseous erosion or periosteal reaction. No acute fracture or malalignment. Degenerative changes of the knee. Atherosclerosis. Mild diffuse subcutaneous edema. IMPRESSION: 1. No radiographic evidence of osteomyelitis. 2. Nonspecific diffuse subcutaneous edema. Correlate clinically for cellulitis. Electronically signed by: Rufino Fregoso M.D. 10/01/2018 9:52 PM
[2018-10-01 21:54] LABS: BUN Creatinine Ratio 12.4 (10-20); Creatinine Clr Calc Pharmacy 44.2 ml/min; Est GFR (African American) 60.6; Est GFR (Non-African American) 52.3; Potassium 3.5 mmol/L (3.5-5.1)
[2018-10-01 22:04] LABS: Albumin Globulin Ratio 0.6 (0.9-2); Bilirubin,Total 0.6 mg/dl (0.2-1); Globulin 4.7 gm/dl (2.5-4.0); Total Protein 7.7 gm/dl (6.4-8.2)
[2018-10-01] MEDS ORDERED: SODIUM CHLORIDE 0.9% 500 ML IV ONE (22:13)
[2018-10-01 22:17] LABS: T4 Free Thyroxine 1.22 ng/dl (0.8-1.6)
--- NOTE | 2018-10-01 23:56 | Emergency Department Note ---
Entered by Joon Reddy acting as a scribe for History of Present Illness General Chief complaint: Dehydration Stated complaint: DEHYDRATION Time Seen by Provider: 10/01/18 20:12 Source: patient and other (Dr. Albarran ) History of Present Illness Provider complaint: Dehydration Onset (ago): day(s) (Last couple of days) Location: lower extremity and left Pain Consistency: + constant Maximum Pain Intensity: 2 Relieved By: + none Exacerbated By: + none Associated symptoms: + loss of appetite and + other (Positive lower extremity pain) The patient is an 87 year old male who presents to the Emergency Room, after being referred by Dr. Albarran, with complaints of constant dehydration that has been ongoing for the past couple of days, per the report from Dr. Albarran. He reports that the patient has not been eating or drinking for the past couple of days. The patient states he is not doing this because he does not feel well. The patient is also being treated for cellulitis on his left lower leg with Keflex, however the patient admits to not taking the antibiotic correctly. The patient does have a history of a bone infection in the toes of his left foot. Home Medications Home Medications Medication Instructions Recorded Confirmed Type allopurinol 300 mg PO QAM 01/20/18 10/01/18 History amlodipine 2.5 mg PO QAM 01/20/18 10/01/18 History aspirin 81 mg PO QAM 01/20/18 10/01/18 History atorvastatin 40 mg PO QAM 01/20/18 10/01/18 History clopidogrel 75 mg PO QAM 01/20/18 10/01/18 History dutasteride 0.5 mg PO QAM 01/20/18 10/01/18 History gabapentin 300 mg PO TID 01/20/18 10/01/18 History metoprolol succinate 50 mg PO QAM 01/20/18 10/01/18 History mirabegron 50 mg PO DAILY 01/20/18 10/01/18 History tolterodine 4 mg PO DAILY 01/20/18 10/01/18 History Asmanex Twisthaler 2 inh INHALATION BID 05/30/18 10/01/18 History Combivent Respimat 1 puff INHALATION QID PRN 05/30/18 10/01/18 History magnesium oxide 400 mg PO BID 05/30/18 10/01/18 History tamsulosin 0.4 mg PO DAILY 05/30/18 10/01/18 History multivitamin 1 tab PO DAILY 06/09/18 10/01/18 History cholecalciferol (vitamin D3) 2,000 unit PO DAILY 10/01/18 10/01/18 History [Vitamin D3] ferrous sulfate [iron] 325 mg PO DAILY 10/01/18 10/01/18 History pantoprazole 40 mg PO DAILY 10/01/18 10/01/18 History prednisone 5 mg PO DAILY 10/01/18 10/01/18 History tramadol 50 - 100 mg PO Q6H PRN 10/01/18 10/01/18 History vitamin B complex 1 cap PO DAILY 10/01/18 10/01/18 History Allergies Allergy/AdvReac Type Severity Reaction Status Date / Time morphine Allergy Unknown "out of it Verified 10/01/18 23:06 for days" colchicine AdvReac Mild GI upset Verified 10/01/18 23:06 [place] [employer] AdvReac Unknown STOMACH Verified 10/01/18 23:06 ACHE FROM [employer] tomato AdvReac Unknown HEADACHE Verified 10/01/18 23:06 FROM [facility] Past Med/Surg History Medical History COPD (chronic obstructive pulmonary disease) (Chronic) Hypertension (Chronic) Gout (Chronic) CKD (chronic kidney disease), stage III (Chronic) Osteoporosis (Chronic) Psoriatic arthritis (Chronic) Dyslipidemia (Chronic) Aortic stenosis (Chronic) "echo 02/2017 - severe " On 03/21/15 18:55 Angela Jaramillo wrote "moderate" Tobacco abuse (Resolved) H/O atrial flutter (Chronic) "occurred postoperatively in 01/2014, converted to sinus rhythm with IV diltiazem" Nocturnal hypoxemia (Chronic) History of duodenal ulcer (Chronic) H/O diastolic dysfunction (Chronic) "grade I per echo 02/2017" On 03/21/15 19:09 Angela Jaramillo wrote "grade I per echo 01/2014" BPH (benign prostatic hypertrophy) (Chronic) Volvulus of stomach (Chronic) Neuropathy (Chronic) Peripheral vascular disease (Chronic) s/p angioplasty of right posterior tibial artery Urinary incontinence (Chronic) Hiatal hernia (Chronic) Renal lesion (Chronic) Esophageal dysmotility (Chronic) MAXI (acute kidney injury) (Inactive) Abnormal finding on CT scan (Inactive) Dysphagia (Inactive) Furuncle (Inactive) History of COPD (Inactive) History of heart valve insufficiency (Inactive) Umbilical hernia (Inactive) Weight loss (Inactive) Surgical History History of lithotripsy (Chronic) History of back surgery (Chronic) Family History Other Family history non-contributory Social History Preferred Language: German Communication Ability: Effective Visual Impairment: Limited Hearing Ability: Normal Beliefs That Will Affect Care: None marital status: / Current Living Situation: Family Current Living Situation Comment: son lives wih him current occupational status: retired Feels Safe at Home: Yes Smoking Status: Former smoker Hx Alcohol Use: No Hx Substance Use: No Review of Systems See HPI for pertinent positives & negatives. and A total of 10 systems reviewed and were otherwise negative Physical Exam Vital Signs Vital Signs - 24 hr 10/01/18 20:07 10/01/18 21:31 10/01/18 21:44 Temperature 36.3 C L Temperature Source Oral Sepsis Recent Fever Within 48 Hours No Sepsis New/Unexplained Change in Mental Status No Sepsis Action Taken by Nursing No Action Required Pulse Rate 95 H 103 H 103 H Pulse Rate [Right Finger] 103 H Pulse Rhythm Regular Respiratory Rate 18 23 22 Respiratory Depth Normal Blood Pressure 181/98 H 137/93 Blood Pressure [Right Arm] 137/93 Blood Pressure Mean 125 107 Blood Pressure Mean [Right Arm] 107 Pulse Oximetry 97 93 Oxygen Delivery Method Room Air Room Air 10/01/18 22:00 10/01/18 22:30 10/01/18 22:59 Temperature Temperature Source Sepsis Recent Fever Within 48 Hours Sepsis New/Unexplained Change in Mental Status Sepsis Action Taken by Nursing Pulse Rate 101 H 104 H Pulse Rate [Right Finger] 103 H Pulse Rhythm Respiratory Rate 21 21 18 Respiratory Depth Blood Pressure Blood Pressure [Right Arm] Blood Pressure Mean Blood Pressure Mean [Right Arm] Pulse Oximetry 95 94 Oxygen Delivery Method Room Air 10/01/18 23:00 10/01/18 23:01 10/01/18 23:03 Temperature Temperature Source Sepsis Recent Fever Within 48 Hours Sepsis New/Unexplained Change in Mental Status Sepsis Action Taken by Nursing Pulse Rate 104 H 103 H 105 H Pulse Rate [Right Finger] Pulse Rhythm Respiratory Rate 21 22 19 Respiratory Depth Blood Pressure 173/102 H 173/112 H Blood Pressure [Right Arm] Blood Pressure Mean 125 101 132 Blood Pressure Mean [Right Arm] Pulse Oximetry Oxygen Delivery Method HEENT: Head - normocephalic and atraumatic Pupils are equal, round, and reactive to light. Extraocular eye muscles are intact, and sclera are anicteric. Nose - moist nasal mucosa without discharge. Mouth - dry buccal mucosa. Oropharynx is nonerythematous and there is no tonsillar exudate or edema noted. Neck: Supple; no JVD, nuchal rigidity, cervical lymphadenopathy. Heart: Regular rate and rhythm. There is a normal S1 and S2 with no murmurs, clicks, or gallops appreciated. Lungs: Clear to auscultation bilaterally with no wheezes, rales, or rhonchi. Abdomen: Soft, completely nontender, nondistended, with good bowel sounds. There are no palpable pulsatile masses or hepatosplenomegaly. There is no guarding, rigidity, or rebound noted. Extremities: No evidence of cyanosis, clubbing, or edema. There are easily palpable peripheral pulses. Deep ulcer on the left anterior Tib/Fib region. Skin: warm and extremely dry with poor turgor and tenting. No rashes. Course 2045: Past medical records reviewed. The patient was evaluated in room B11B, and a complete history and physical examination were performed. An IV lock was initiated and labs were drawn as above. The patient will go for x-rays of the left lower extremity to rule out osteomyelitis. 2213: I ordered Sodium Chloride 500mls @ 999mls/hr IV 2215: I reevaluated the patient and updated him on lab and imaging results. We also discussed the treatment plan, which the patient is in agreement with. 2225: I spoke to Dr. Rosanna Craig about the patient's case and he is going to accept him for further evaluation. Consultations Consultation #1: I spoke to Dr. Rosanna Craig about the patient's case and he is going to accept him for further evaluation. Time: 22:25 Administered Medications Discontinued Medications Sodium Chloride (Nss) 500 mls @ 999 mls/hr IV .Q31M ONE Stop: 10/01/18 22:43 Last Infusion: 10/01/18 22:59 Dose: 0 mls/hr Documented by: [id number] Admin: 10/01/18 22:27 Dose: 999 mls/hr Documented by: [id number] Medical Decision Making Differential Diagnosis The patient is an 87 year old male who presents to the Emergency Room, after being referred by Dr. Albarran, with complaints of constant dehydration that has been ongoing for the past couple of days, per the report from Dr. Albarran. Differential Diagnosis include: Dehydration, osteomyelitis, skin ulcer, and electrolyte abnormalities, amongst others. Medical Records Attestation: I reviewed the patient's medical records. Home Medications Current Medication List: was personally reviewed by me Laboratory Data Attestation: I reviewed the patient's lab results. Result diagrams: 10/01/18 21:18 10/01/18 21:18 Lab Results 10/01/18 10/01/18 Range/Units 21:18 21:18 WBC 6.13 (4.8-10.8) K/uL RBC 4.60 L (4.7-6.1) M/uL Hgb 12.4 L (14.0-18.0) g/dL Hct 37.0 L (42-52) % MCV 80.4 (80-100) fL MCH 27.0 (25-34) pg MCHC 33.5 (32-36) g/dL RDW Std Deviation 43.0 (36.4-46.3) fL RDW Coeff of Morris 14.6 H (11.5-14.5) % Plt Count 166 (130-400) K/uL MPV 10.0 (7.4-10.4) fL Immature Gran % (Auto) 0.3 % Neut % (Auto) 59.7 % Lymph % (Auto) 22.0 % [place] % (Auto) 10.8 % Eos % (Auto) 6.7 % Baso % (Auto) 0.5 % Immature Gran # (Auto) 0.02 (0.00-0.02) K/uL Neut # (Auto) 3.66 (1.4-6.5) K/uL Lymph # (Auto) 1.35 (1.2-3.4) K/uL [place] # (Auto) 0.66 H (0.11-0.59) K/uL Eos # (Auto) 0.41 (0-0.5) K/uL Baso # (Auto) 0.03 (0-0.2) K/uL Sodium 141 (136-145) mmol/L Potassium 3.5 (3.5-5.1) mmol/L Chloride 106 (98-107) mmol/L Carbon Dioxide 27 (21-32) mmol/L Anion Gap 8.0 (3-11) BUN 15 (7-18) mg/dl Creatinine 1.24 (0.6-1.4) mg/dl Est Cr Clr Drug Dosing 44.2 ml/min Est GFR ( Amer) 60.6 Est GFR (Non-Af Amer) 52.3 BUN/Creatinine Ratio 12.4 (10-20) Glucose 98 (70-99) mg/dl Calcium 9.0 (8.5-10.1) mg/dl Total Bilirubin 0.6 (0.2-1) mg/dl AST 16 (15-37) U/L ALT 15 (12-78) U/L Alkaline Phosphatase 125 H (45-117) U/L Total Protein 7.7 (6.4-8.2) gm/dl Albumin 3.0 L (3.4-5.0) gm/dl Globulin 4.7 H (2.5-4.0) gm/dl Albumin/Globulin Ratio 0.6 L (0.9-2) TSH 5.030 H (0.300-4.500) uIu/ml Free T4 1.22 (0.8-1.6) ng/dl Imaging Data Radiologist's Impression: Radiology results as stated below per my review and the radiologist's interpretation: XR tibia fibula LT 2V CLINICAL HISTORY: 87 years-old Male presenting with eval for osteo. TECHNIQUE: Frontal and lateral views of the left lower leg were obtained. COMPARISON: 01/16/2018. FINDINGS: Knee joint and ankle mortise grossly congruent. Osteopenia. Allowing for this, no gross evidence of osseous erosion or periosteal reaction. No acute fracture or malalignment. Degenerative changes of the knee. Atherosclerosis. Mild diffuse subcutaneous edema. IMPRESSION: 1. No radiographic evidence of osteomyelitis. 2. Nonspecific diffuse subcutaneous edema. Correlate clinically for cellulitis. Electronically signed by: Rufino Fregoso M.D. 10/01/2018 9:52 PM ECG Data Attestation: I personally reviewed and interpreted this ECG as follows: Indication: weakness Rate (beats per minute): 96 Rhythm: normal sinus Findings: + 1st degree AV block; no PAC and no PVC Blood Pressure Blood Pressure Findings: Elevated blood pressure Blood Pressure Disposition: further management by hospitalist MDM Narrative The patient is an 87 year old male who presents to the Emergency Room, after b eing referred by Dr. Albarran, with complaints of constant dehydration that has been ongoing for the past couple of days, per the report from Dr. Albarran. The patient has been refusing to eat, drink or take his medications. The patient is supposed to be taking antibiotics for lower extremity ulcers. Dr. Albarran felt the patient would require evaluation and admission to the hospital for social service evaluation for [facility] facility. Impression & Plan Dehydration, Leg ulcer, left Discharge Plan Visit Data Chief Complaint: Dehydration Stated Complaint: DEHYDRATION ED Provider: Katie Gutierrez Discharge Problem: Dehydration, Leg ulcer, left Patient Disposition: Being Evaluated by Hospitalist Forms Stand Alone Forms: My [facility] Prescriptions Prescriptions: No Action tamsulosin 0.4 mg capsule 0.4 mg PO DAILY RF: 0 Asmanex Twisthaler 220 mcg (120 doses) Aerosol Powdr Breath Activated 2 inh INHALATION BID RF: 0 magnesium oxide 400 mg Capsule 400 mg PO BID RF: 0 Combivent Respimat 20-100 mcg/actuation Mist 1 puff INHALATION QID PRN (Reason: Shortness Of Breath) RF: 0 prednisone 5 mg tablet 5 mg PO DAILY RF: 0 tramadol 50 mg Tablet 50 - 100 mg PO Q6H PRN (Reason: Pain) RF: 0 pantoprazole 40 mg tablet,delayed release (DR/EC) 40 mg PO DAILY RF: 0 ferrous sulfate [iron] 325 mg (65 mg iron) Tablet 325 mg PO DAILY RF: 0 vitamin B complex Capsule 1 cap PO DAILY RF: 0 cholecalciferol (vitamin D3) [Vitamin D3] 2,000 unit Capsule 2,000 unit PO DAILY RF: 0 allopurinol 300 mg tablet 300 mg PO QAM RF: 0 atorvastatin 40 mg tablet 40 mg PO QAM RF: 0 metoprolol succinate 50 mg tablet extended release 24 hr 50 mg PO QAM RF: 0 amlodipine 2.5 mg tablet 2.5 mg PO QAM RF: 0 clopidogrel 75 mg tablet 75 mg PO QAM RF: 0 aspirin 81 mg Tablet,Delayed Release (Dr/Ec) 81 mg PO QAM RF: 0 dutasteride 0.5 mg capsule 0.5 mg PO QAM RF: 0 tolterodine 4 mg capsule,extended release 24hr 4 mg PO DAILY RF: 0 mirabegron 50 mg tablet extended release 24 hr 50 mg PO DAILY RF: 0 gabapentin 300 mg capsule 300 mg PO TID RF: 0 multivitamin Tablet 1 tab PO DAILY RF: 0 Referrals Referrals: Patrick Albarran MD [Primary Care Provider] - Discharge Problem: Leg ulcer, left Qualifiers: Non-pressure ulcer stage: unspecified non-pressure ulcer stage Qualified Code(s): L97.929 - Non-pressure chronic ulcer of unspecified part of left lower leg with unspecified severity The scribe's documentation has been prepared under my direction and personally reviewed by me in its entirety. I confirm that the note above accurately reflects all work, treatment, procedures, and medical decision making performed by me.
[2018-10-02] MEDS ORDERED: ACETAMINOPHEN 325 MG TAB PO PRN (02:25)
[2018-10-02] MEDS ORDERED: ONDANSETRON INJ 2 MG/ML 2 ML VIAL IV PRN (02:25)
[2018-10-02] MEDS ORDERED: POLYETHYLENE (MIRALAX) 17 GM PACK PO PRN (02:25)
[2018-10-02] MEDS ORDERED: VANCOMYCIN HCL 1,000 MG in SODIUM CHLORIDE 0.9% 250 ML IV SCH (02:25)
[2018-10-02] MEDS ORDERED: IPRATROPIUM BROMIDE/ALBUTEROL respimat INH INH PRN (02:25)
[2018-10-02] MEDS ORDERED: VANCOMYCIN CONSULT ACTIVE PRN (02:25)
[2018-10-02] MEDS ORDERED: TRAMADOL HCL 50 MG TABLET PO PRN (02:25)
[2018-10-02] MEDS ORDERED: VANCOMYCIN HCL 1,750 MG in SODIUM CHLORIDE 0.9% 500 ML IV SCH (03:00)
[2018-10-02] MEDS: METOPROLOL SUCC 50MG EXT REL TAB PO SCH ×2 (03:10→08:21)
[2018-10-02] MEDS: D5W AND NSS 1,000 ML IV SCH ×2 (03:25→14:24)
[2018-10-02] MEDS ORDERED: cloNIDine HCl 0.1 MG TAB PO PRN (05:54)
[2018-10-02 06:34] LABS: INR 1.1 (0.9-1.1); Prothrombin Time 11.6 Seconds (9.0-12.0)
[2018-10-02 06:40] LABS: BUN Creatinine Ratio 11.3 (10-20); Calcium 8.6 mg/dl (8.5-10.1); Creatinine Clr Calc Pharmacy 47.6 ml/min; Est GFR (African American) 66.4; Est GFR (Non-African American) 57.3; Potassium 3.3 mmol/L (3.5-5.1)
[2018-10-02] MEDS: HEPARIN SOD 5,000 UNIT/0.5 ML VIAL SQ SCH ×3 (07:26→20:59)
--- NOTE | 2018-10-02 07:51 | History and Physical Report ---
DATE OF ADMISSION: 10/02/2018 CHIEF COMPLAINT: Left lower extremity possible cellulitis, poor appetite, ambulatory dysfunction. HISTORY OF PRESENT ILLNESS: This is an 87-year-old male with past medical history significant for mild COPD, hyperlipidemia, nocturnal hypoxemia, moderate aortic valve stenosis, hypertension, volvulus of stomach, chronic kidney disease stage III, urinary incontinence, gout arthropathy, osteoporosis, generalized osteoarthritis, idiopathic peripheral neuropathy, iron deficiency anemia, psoriatic arthropathy, elevated PSA, comes because of poor appetite; left lower extremity possible cellulitis and ambulatory dysfunction. The patient lives with his son, but states his daughter takes care of him very well. She lives about 2 miles from his house and he also gets home health help twice a week. He is having ongoing poor appetite, losing weight about 10-15 pounds since last several months. His poor appetite is ongoing issue for some time now and patient's recent admissions, he had a barium swallow showing oesophageal_ dysmotility. Also underwent EGD that showed tortuous esophagus and he was noted to have large hiatal hernia; Also speech therapist recommended to him to be on slippery, soft diet, alternate solids and liquids small frequent meals. Seen By CT surgery and recommeded aortic valve surgery prior to hiatal hernia repair. The patient is trying to follow the speech therapist's recommendations. Follows with podiatry, he is on Unna boot on the right lower extremity. His left lower extremity has somewhat mild erythematous changes with scabs seen and his family doctor prescribed Keflex few days back on phone and patient went to see the family doctor today. The patient says he is not at all eating much. He is eating a little bit that makes him feel full and also feel nauseous, possibly secondary to his hiatal hernia. Does not want to take antibiotics when he is on empty stomach and the PCP felt that he needs to come to the hospital for possible IV antibiotics and hydration. The patient denies any fever or chills. Ambulates with help of walker but very poor ambulatory status as per patient. Denies any chest pain, no shortness of breath, no cough, no headaches, no blurred vision, no sore throat, swallowing okay. No cough, no abdominal pain, is getting constipated. He is moving his bowels only small amounts every other day. No burning micturition. Currently resting comfortably and hemodynamically stable. ALLERGIES: COLCHICINE, MORPHINE. PAST MEDICAL HISTORY: As mentioned above. PAST SURGICAL HISTORY: Colonoscopy with biopsy, right heart catheterization, EGD with biopsies, spinal injection, left pinky finger repair, small bowel endoscopy with biopsy. MEDICATIONS: The patient is on B complex vitamins 1 tablet daily, vitamin D 2000 units p.o. daily, allopurinol 300 mg p.o. daily, atorvastatin 40 mg p.o. daily, ferrous sulfate 325 mg p.o. daily, gabapentin 300 mg p.o. t.i.d., Asmanex 120 metered dose 2 inhalers twice daily, multivitamin with minerals 1 tablet daily, prednisone 5 mg p.o. daily, tramadol 50 mg p.o. q. 6 hours p.r.n., Plavix 75 mg p.o. daily, amlodipine 2.5 mg p.o. daily, Toprol-XL 50 mg p.o. daily, Protonix 20 mg p.o. daily, aspirin 81 mg p.o. daily, Combivent Respimat 1 puff q.i.d., Flomax 0.4 mg capsules daily, Detrol-LA 4 mg p.o. daily, magnesium oxide 400 mg p.o. daily, Avodart 0.5 mg p.o. daily, Myrbetriq 50 mg p.o. daily, oxygen 2 liters while sleeping. FAMILY HISTORY: Significant for sister breast and lung cancer. Mother had colon cancer. Father had Parkinson's. SOCIAL HISTORY: , lives with son. Former smoker, quit in 1967, smoked 1 pack a day for 20 years. No alcohol use, no drug use. REVIEW OF SYMPTOMS: As per HPI. Rest of the review of systems negative. PHYSICAL EXAMINATION: GENERAL: The patient is old and frail, not in acute distress. VITAL SIGNS: Temperature 36.3, pulse 105, respiratory 19, blood pressure 173/112, oxygen 95% on room air. HEENT: No pallor, no icterus. Pupils equal, round, reactive to light. NECK: No JVD, no neck masses, no carotid bruits. CARDIOVASCULAR: S1, S2 heard. The patient has no murmur at the aortic area. No gallop. RESPIRATORY SYSTEM: Normal AP diameter. No accessory muscle use. No wheezing, no crackles. ABDOMEN: Soft, bowel sounds present. Nontender. No distention. CENTRAL NERVOUS SYSTEM: Cranial nerves II-XII grossly intact, nonfocal. EXTREMITIES: Right lower extremity is in Unna boot, left lower extremity has scab in the wayne region and mild erythematous changes below the scab.. LABORATORY DATA: WBC 6.13, hemoglobin 12.4, hematocrit 37, platelets 166. Sodium 141, potassium 3.5, chloride 106, bicarbonate 27, BUN 15, creatinine 1.24, serum glucose 98, calcium 9, total bilirubin 0.6, AST 16, ALT 15, alkaline phosphatase 125. Total TSH 5.03, free T4 1.22. Tibia, fibula x-ray, no osteomyelitis. Nonspecific diffuse subcutaneous edema Correlate clinically for cellulitis. ASSESSMENT AND PLAN: This 87-year-old male with ongoing poor appetite. Large hiatal hernia, moderate aortic stenosis, poor ambulatory status, presents with ongoing lower extremity wound and possible cellulitis. 1. Left lower extremity cellulitis and also scab, not able to take oral antibiotics outpatient. Because of ongoing poor appetite, the patient on doesn't like to take antibiotics on empty stomach. Will admi t medical floor and start on IV vancomycin. Follow the cultures. Follow the response. 2. Poor appetite, possibly secondary to large hiatal hernia. Seen by CT surgeon last admission and advised no hernia surgery until aortic stenosis repaired. Recent echo showed Moderate . currently getting gentle fluids. We will consult nutrition.May consider reconsulting CT surgery. 3. Aspiration. Speech therapist recommended slipper diet which he is trying to follow at home 4. Ambulatory dysfunction, the patient walks with a walker and states his ambulatory status is very poor. We will get PT, OT while patient is here in the hospital. 5. Hypertension. Continue his amlodipine and Toprol-XL. We will monitor his blood pressure. clonidine prn 6. Chronic kidney disease stage III, patient is stable. Follow the labs. 7. Hyperlipidemia. Continue statin. 8. Peripheral vascular disease. On aspirin and Plavix. 9. Neuropathy. Continue gabapentin. 10. BPH. Continue Flomax , mirabegron , Detrol LA 11. Renal mass supposed to get an MRI as outpatient. Ultrasound showed 2.7cm lesion on his right kidney which was possible complex cyst but recommended nonemergent renal MRI. 12. Deep venous thrombosis prophylaxis. We will place heparin sub q for now. DISPOSITION: Admit to med/surg. Level 1 full code. PT and OT. Social service to help with discharge planning. LILIAN
[2018-10-02] MEDS: TOLTERODINE TARTRATE LA 4 MG CAPCR PO SCH (08:16)
[2018-10-02] MEDS: MOMETASONE FUROATE 14 PUFF/1 INHALER INH SCH ×2 (08:16→20:56)
[2018-10-02] MEDS: FERROUS SULFATE 325 MG TAB PO SCH (08:17)
[2018-10-02] MEDS: ATORVASTATIN 40 MG TAB PO SCH (08:17)
[2018-10-02] MEDS: GABAPENTIN 300 MG CAP PO SCH ×3 (08:17→20:59)
[2018-10-02] MEDS: MAGNESIUM OXIDE 400 MG TAB PO SCH ×2 (08:17→20:59)
[2018-10-02] MEDS: TAMSULOSIN HCL 0.4 MG CAP PO SCH (08:17)
[2018-10-02] MEDS: MULTIVITAMIN TAB PO SCH (08:17)
[2018-10-02] MEDS: ASPIRIN 81 MG ECTAB PO SCH (08:17)
[2018-10-02] MEDS: MIRABEGRON ER 25 MG TAB PO SCH (08:17)
[2018-10-02] MEDS: PANTOprazole 40 MG TAB PO SCH (08:18)
[2018-10-02] MEDS: AMLODIPINE BESYLATE 5 MG TAB PO SCH (08:18)
[2018-10-02] MEDS: predniSONE 5 MG TAB PO SCH (08:18)
[2018-10-02] MEDS: CLOPIDOGREL BISULFATE 75 MG TAB PO SCH (08:18)
[2018-10-02] MEDS: VITAMIN B COMPLEX TAB PO SCH (08:19)
[2018-10-02] MEDS: ALLOPURINOL 300 MG TAB PO SCH (08:19)
[2018-10-02] MEDS: CHOLECALCIFEROL 1,000 UNITS TAB PO SCH (08:19)
[2018-10-02] MEDS: AVODART~ORDER AWAITING ACTION SCH ×2 (08:20→16:14)
--- NOTE | 2018-10-02 08:29 | Pharmacy Report ---
Pharmacy Abx Initial Consult - Date of Service October 02, 2018 - Pharmacy Dosing Scope Date of Consult: 10/02/18 Consultation requested by: Dr. Marte Pharmacy is consulted to initiate Vancomycin IV dosing therapy, order appropriate labs and adjust drug dose/frequency. - Subjective The patient is a 87 year old M admitted on 10/02/18 01:16 with LLE Cellulitis. - Objective Height: 5 ft 10 in Weight: 76.2 kg Vital Signs (Past 12hrs): Vital Signs Temp Pulse Pulse Resp BP BP Pulse Ox 10/02/18 07:49 36.9 C 96 H 18 167/84 H 94 10/02/18 04:20 169/89 H 10/02/18 02:25 36.8 C 105 H 20 180/102 H 94 10/02/18 01:54 106 H 19 148/103 H 94 10/02/18 01:31 107 H 18 148/103 H 10/02/18 01:30 107 H 20 10/02/18 01:00 106 H 24 147/111 H 10/02/18 00:31 107 H 27 H 161/105 H 10/02/18 00:30 107 H 21 10/02/18 00:00 117 H 20 175/160 H 10/01/18 23:30 109 H 26 H 160/108 H 10/01/18 23:04 105 H 29 H 10/01/18 23:03 105 H 19 173/112 H 10/01/18 23:01 103 H 22 10/01/18 23:00 104 H 21 173/102 H 10/01/18 22:59 103 H 18 94 10/01/18 22:30 104 H 21 10/01/18 22:00 101 H 21 95 10/01/18 21:44 103 H 103 H 22 137/93 137/93 93 10/01/18 21:31 103 H 23 Lab Results (24hrs): Laboratory Tests (24 Hours) 10/02/18 10/01/18 10/01/18 05:34 21:18 21:18 WBC 6.13 Neut # (Auto) 3.66 Creatinine 1.15 1.24 Est Cr Clr Drug Dosing 47.6 44.2 Micro Results: 10/01/18 21:18 Aerobic Blood Culture - Pending Blood Anaerobic Blood Culture - Pending 10/01/18 21:03 Aerobic Blood Culture - Pending Blood Anaerobic Blood Culture - Pending - Risk Factors for Resistance Prescribed Cephalexin by Dr Albarran as outpatient, but patient has not been able to take it d/t dehydration, dec PO Intake. - Assessment & Plan Assessment 87 year old M admitted with dehydration, dec PO intake past few days, LLE Cellulitis, unable to take PO outpatient cephalexin as prescribed by PCP. Plan Vancomycin for treatment of LLE Cellulitis Vancomycin IV * Estimated PK Parameters: Vd 0.6 L/kg, Bunny 0.044hr-1, t1/2 16hr * Loading dose: 1750 mg (22 mg/kg) x 1 dose at 0311 today * Maintenance dose: 1250 mg IV (15.8 mg/kg) every 18 hours * Goal trough level for cellulitis : ~15 mcg/mL * Trough level ordered for 10/04/18 prior to 0400 dose Pharmacy will continue to follow and will adjust dose/frequency as necessary. Thank you.
[2018-10-02] MEDS: VANCOMYCIN HCL 1,250 MG in SODIUM CHLORIDE 0.9% 250 ML IV SCH (16:18)
--- NOTE | 2018-10-02 17:26 | Hospitalist Progress Note ---
Date of Service October 02, 2018 Assessment & Plan (1) Ambulatory dysfunction: Has been complaining of ambulatory dysfunction for the last 2 years Has peripheral neuropathy seems to be idiopathic Likely the contributing factors of ambulatory dysfunction and is complicated by Leg ulcer and cellulitis PT and OT evaluation for possible placement Present on Admission?: Yes (2) Neuropathy: Noted to have peripheral neuropathy 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 He does not have any diabetes (3) Leg ulcer, left: Chronic leg ulcer Noted as in the picture Adjoining cellulitis Has been getting IV Vanco and Zosyn for now Awaiting blood culture Appreciate wound care Present on Admission?: Yes (4) Aortic stenosis: Has significant aortic stenosis as per echo in the Denies any symptoms of chest pain and/or syncope (5) COPD (chronic obstructive pulmonary disease): History of COPD Does not have any shortness of breath and wheezing Continue current medication (6) Hypertension: Blood pressure remains in the lower side of normal Continue with current medication (7) Esophageal dysmotility: Anorexia Difficulty swallowing is complicated by huge hiatal hernia as well Subjective 10/02 Patient was seen and examined in medical floor He has been complaining of unsteady gait for the last few years Condition got worse recently Complaint history of some pain at the leg wound Denies any fever and/or chills Review of Systems Review of Systems: All systems reviewed and are unremarkable except as noted Musculoskeletal: Has unsteady gait without any acute arthritis. 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 without any pain Neurologic: Has peripheral neuropathy likely cause for unsteady gait Physical Exam Physical Exam: No apparent distress at rest. Sitting on a chair outside bed Constitutional: well developed and well nourished; no acute distress and not ill appearing Eyes: PERRL, conjunctivae normal, anicteric sclerae ENMT: external ear and nose normal, oropharynx normal Neck: trachea midline, no thyromegaly Respiratory: normal respiratory effort; no respiratory distress Auscultation: lungs clear to auscultation bilaterally Cardiovascular: Rate/Rhythm: regular rate and regular rhythm Heart Sounds: no murmur Vessels: posterior tibial pulses present Gastrointestinal (Abdomen): Inspection/Auscultation: abdomen normal to inspection and normal bowel sounds Percussion/Palpation: abdomen soft; abdomen nontender Musculoskeletal: No acute arthritis Neurologic: no focal motor deficits Alert, awake and oriented x3. Lymphatic: no cervical or axillary lymphadenopathy Results & Data Vital Signs (Past 12 Hours) Vital Signs Temp Pulse Resp BP BP Pulse Ox 10/02/18 15:59 36.5 C 84 18 105/66 95 10/02/18 07:49 36.9 C 96 H 18 167/84 H 94 Laboratory Results Short CBC 10/01/18 Range/Units 21:18 WBC 6.13 (4.8-10.8) K/uL Hgb 12.4 L (14.0-18.0) g/dL Hct 37.0 L (42-52) % Plt Count 166 (130-400) K/uL BMP 10/01/18 10/02/18 21:18 05:34 Sodium 141 141 Potassium 3.5 3.3 L Chloride 106 107 Carbon Dioxide 27 25 BUN 15 13 Creatinine 1.24 1.15 Glucose 98 132 H Calcium 9.0 8.6 Liver Function 10/01/18 Range/Units 21:18 Total Bilirubin 0.6 (0.2-1) mg/dl AST 16 (15-37) U/L ALT 15 (12-78) U/L Alkaline Phosphatase 125 H (45-117) U/L Albumin 3.0 L (3.4-5.0) gm/dl Medications Administered Current Inpatient Medications Acetaminophen (Tylenol) 650 mg PO Q4H PRN PRN Reason: pain/fever Stop: 11/01/18 02:24 Albuterol (Combivent Respimat) 1 puffs INH QID PRN PRN Reason: Shortness Of Breath Stop: 11/01/18 02:24 Allopurinol (Zyloprim) 300 mg PO [facility] Stop: 11/01/18 08:59 Last Admin: 10/02/18 08:19 Dose: 300 mg Documented by: Amlodipine Besylate (Norvasc) 2.5 mg PO [facility] Stop: 11/01/18 08:59 Last Admin: 10/02/18 08:18 Dose: 2.5 mg Documented by: Aspirin (Ecotrin Ectab) 81 mg PO [facility] Stop: 11/01/18 08:59 Last Admin: 10/02/18 08:17 Dose: 81 mg Documented by: Atorvastatin Calcium (Lipitor) 40 mg PO [facility] Stop: 11/01/18 08:59 Last Admin: 10/02/18 08:17 Dose: 40 mg Documented by: Clonidine HCl (Catapres) 0.1 mg PO Q4H PRN PRN Reason: Hypertension Stop: 11/01/18 05:53 Clopidogrel Bisulfate (Plavix) 75 mg PO QAM [facility] Stop: 11/01/18 08:59 Last Admin: 10/02/18 08:18 Dose: 75 mg Documented by: Ferrous Sulfate (Feosol) 325 mg PO DAILY [facility] Stop: 11/01/18 08:59 Last Admin: 10/02/18 08:17 Dose: 325 mg Documented by: Gabapentin (Neurontin) 300 mg PO TID [facility] Stop: 11/01/18 08:59 Last Admin: 10/02/18 14:22 Dose: 300 mg Documented by: Heparin Sodium (Porcine) (Heparin Sodium (Porcine)) 5,000 units SQ Q8 [facility] Stop: 11/01/18 05:59 Last Admin: 10/02/18 14:22 Dose: 5,000 units Documented by: Dextrose/Sodium Chloride (D5w And Nss) 1,000 mls @ 75 mls/hr IV .[id number] [facility] Stop: 11/01/18 02:24 Last Admin: 10/02/18 14:24 Dose: 75 mls/hr Documented by: Vancomycin HCl 1,250 mg/ (Sodium Chloride) 275 mls @ 125 mls/hr IV Q18H [facility] Stop: 10/12/18 15:59 Last Admin: 10/02/18 16:18 Dose: 125 mls/hr Documented by: Magnesium Oxide (Mag-Ox) 400 mg PO BID [facility] Stop: 11/01/18 08:59 Last Admin: 10/02/18 08:17 Dose: 400 mg Documented by: Metoprolol Succinate (Toprol Xl) 50 mg PO [facility] Stop: 11/01/18 08:59 Last Admin: 10/02/18 08:21 Dose: Not Given Documented by: Mirabegron (Myrbetriq Er) 50 mg PO DAILY [facility] Stop: 11/01/18 08:59 Last Admin: 10/02/18 08:17 Dose: 50 mg Documented by: Miscellaneous (Order Awaiting Action) 1 ea N/A QS [facility] Stop: 11/01/18 07:59 Last Admin: 10/02/18 16:14 Dose: Not Given Documented by: Miscellaneous Information (Consult) 1 ea N/A UD PRN PRN Reason: Consult Stop: 11/01/18 02:24 Mometasone Furoate (Asmanex 220mcg) 2 puffs INH BID [facility] Stop: 11/01/18 08:59 Last Admin: 10/02/18 08:16 Dose: 2 puffs Documented by: Multivitamins (Multivitamin Tab) 1 tab PO DAILY [facility] Stop: 11/01/18 08:59 Last Admin: 10/02/18 08:17 Dose: 1 tab Documented by: Ondansetron HCl (Zofran) 4 mg IV Q6H PRN PRN Reason: Nausea Stop: 11/01/18 02:24 Pantoprazole Sodium (Protonix) 40 mg PO DAILY [facility] Stop: 11/01/18 08:59 Last Admin: 10/02/18 08:18 Dose: 40 mg Documented by: Polyethylene Glycol (Miralax Powder Packet) 17 gm PO DAILY PRN PRN Reason: Constipation Stop: 11/01/18 02:24 Prednisone (Prednisone) 5 mg PO DAILY [facility] Stop: 11/01/18 08:59 Last Admin: 10/02/18 08:18 Dose: 5 mg Documented by: Tamsulosin HCl (Flomax) 0.4 mg PO DAILY [facility] Stop: 11/01/18 08:59 Last Admin: 10/02/18 08:17 Dose: 0.4 mg Documented by: Tolterodine Tartrate (Detrol La) 4 mg PO DAILY [facility] Stop: 11/01/18 08:59 Last Admin: 10/02/18 08:16 Dose: 4 mg Documented by: Tramadol HCl (Ultram) 50 - 100 mg PO Q6H PRN PRN Reason: Pain Stop: 11/01/18 02:24 Vitamin B Complex (Vitamin B Complex) 1 tab PO DAILY [facility] Stop: 11/01/18 08:59 Last Admin: 10/02/18 08:19 Dose: 1 tab Documented by: Vitamin D (Vitamin D3) 2,000 units PO DAILY [facility] Stop: 11/01/18 08:59 Last Admin: 10/02/18 08:19 Dose: 2,000 units Documented by: (1) Leg ulcer, left Non-pressure ulcer stage: unspecified non-pressure ulcer stage Qualified Code(s): L97.929 - Non-pressure chronic ulcer of unspecified part of left lower leg with unspecified severity
[2018-10-02 17:28] LABS: Appearance Urine Clear (Clear); Bacteria Urine Automated Negative (Negative); Bilirubin Urine Negative (Negative); Blood Urine Negative (Negative); Color Urine Dark Yellow; Glucose Urine UA Negative (Negative); Ketones Urine Negative (Negative); Leukocyte Esterase Urine Negative (Negative); Nitrite Urine Negative (Negative); Protein Urine Trace (Negative); Specific Gravity Urine 1.025 (1.000-1.030); Urobilinogen Urine Negative (Negative)
[2018-10-03] MEDS: AVODART~ORDER AWAITING ACTION SCH ×4 (00:23→23:43)
[2018-10-03] MEDS: D5W AND NSS 1,000 ML IV SCH ×2 (03:31→21:17)
[2018-10-03] MEDS: HEPARIN SOD 5,000 UNIT/0.5 ML VIAL SQ SCH ×3 (06:19→21:19)
[2018-10-03 06:23] LABS: Basophils # (auto) 0.02 K/uL (0-0.2); Basophils % (auto) 0.4 %; Eosinophils # (auto) 0.31 K/uL (0-0.5); Eosinophils % (auto) 6.3 %; Hematocrit (blood only) 36.3 % (42-52); Hemoglobin 11.8 g/dL (14.0-18.0); Immature Granulocytes # (auto) 0.01 K/uL (0.00-0.02); Immature Granulocytes % (auto) 0.2 %; Lymphocytes # (auto) 1.19 K/uL (1.2-3.4); Lymphocytes % (auto) 24.1 %; Mean Corpuscular Hgb Conc 32.5 g/dL (32-36); Mean Corpuscular Volume 82.1 fL (80-100); Mean Platelet Volume 10.3 fL (7.4-10.4); Monocytes # (auto) 0.52 K/uL (0.11-0.59); Monocytes % (auto) 10.5 %; Neutrophils # (auto) 2.89 K/uL (1.4-6.5); Neutrophils % (auto) 58.5 %; Platelet Count 143 K/uL (130-400); RDW Coefficient of Variation 14.4 % (11.5-14.5); RDW Standard Deviation 43.4 fL (36.4-46.3); Red Blood Count 4.42 M/uL (4.7-6.1); White Blood Count 4.94 K/uL (4.8-10.8)
[2018-10-03 06:46] LABS: Creatinine Clr Calc Pharmacy 44.2 ml/min; Est GFR (African American) 60.6; Est GFR (Non-African American) 52.3; Magnesium 1.9 mg/dl (1.8-2.4)
[2018-10-03] MEDS: MOMETASONE FUROATE 14 PUFF/1 INHALER INH SCH ×2 (08:22→21:18)
[2018-10-03] MEDS: MAGNESIUM OXIDE 400 MG TAB PO SCH ×2 (08:22→21:19)
[2018-10-03] MEDS: VITAMIN B COMPLEX TAB PO SCH (08:23)
[2018-10-03] MEDS: FERROUS SULFATE 325 MG TAB PO SCH (08:23)
[2018-10-03] MEDS: TAMSULOSIN HCL 0.4 MG CAP PO SCH (08:23)
[2018-10-03] MEDS: MIRABEGRON ER 25 MG TAB PO SCH (08:23)
[2018-10-03] MEDS: ASPIRIN 81 MG ECTAB PO SCH (08:23)
[2018-10-03] MEDS: TOLTERODINE TARTRATE LA 4 MG CAPCR PO SCH (08:23)
[2018-10-03] MEDS: METOPROLOL SUCC 50MG EXT REL TAB PO SCH (08:23)
[2018-10-03] MEDS: MULTIVITAMIN TAB PO SCH (08:24)
[2018-10-03] MEDS: ALLOPURINOL 300 MG TAB PO SCH (08:24)
[2018-10-03] MEDS: GABAPENTIN 300 MG CAP PO SCH ×3 (08:24→21:19)
[2018-10-03] MEDS: AMLODIPINE BESYLATE 5 MG TAB PO SCH (08:24)
[2018-10-03] MEDS: CHOLECALCIFEROL 1,000 UNITS TAB PO SCH (08:25)
[2018-10-03] MEDS: CLOPIDOGREL BISULFATE 75 MG TAB PO SCH (08:25)
[2018-10-03] MEDS: predniSONE 5 MG TAB PO SCH (08:25)
[2018-10-03] MEDS: ATORVASTATIN 40 MG TAB PO SCH (08:25)
[2018-10-03] MEDS: PANTOprazole 40 MG TAB PO SCH (08:25)
[2018-10-03] MEDS: VANCOMYCIN HCL 1,250 MG in SODIUM CHLORIDE 0.9% 250 ML IV SCH (10:24)
--- NOTE | 2018-10-03 16:29 | Hospitalist Progress Note ---
Date of Service October 03, 2018 Assessment & Plan (1) Ambulatory dysfunction: Has been complaining of ambulatory dysfunction for the last 2 years Has peripheral neuropathy seems to be idiopathic Likely the contributing factors of ambulatory dysfunction and is complicated by Leg ulcer and cellulitis PT and OT evaluation for possible placement-recommended rehab Discussed with the patient and likely he will be going home Social service consult (2) Neuropathy: Noted to have peripheral neuropathy 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 He does not have any diabetes We will check vitamin B12 and folate level (3) Leg ulcer, left: Chronic leg ulcer Noted as in the picture Adjoining cellulitis Has been getting IV Vanco and Zosyn for now Awaiting blood culture Appreciate wound care Change antibiotic to oral Augmentin on discharge (4) Aortic stenosis: Has significant aortic stenosis as per echo in the Denies any symptoms of chest pain and/or syncope (5) COPD (chronic obstructive pulmonary disease): History of COPD Does not have any shortness of breath and wheezing Continue current medication (6) Hypertension: Blood pressure remains in the lower side of normal Continue with current medication (7) Esophageal dysmotility: Anorexia Difficulty swallowing is complicated by huge hiatal hernia as well Subjective 10/02 Patient was seen and examined in medical floor He has been complaining of unsteady gait for the last few years Condition got worse recently Complaint history of some pain at the leg wound Denies any fever and/or chills 10/03 The patient was seen and examined in medical floor He denies any symptoms ongoing ambulatory dysfunction His leg ulcer and cellulitis has improved a lot Denies any fever and/or chills Review of Systems Review of Systems: All systems reviewed and are unremarkable except as noted Musculoskeletal: Has unsteady gait without any acute arthritis. 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 without any pain Neurologic: Has peripheral neuropathy likely cause for unsteady gait Physical Exam Physical Exam: Sitting on a chair outside bed without any distress Constitutional: well developed and well nourished; no acute distress and not ill appearing Eyes: PERRL, conjunctivae normal, anicteric sclerae ENMT: external ear and nose normal, oropharynx normal Neck: trachea midline, no thyromegaly Respiratory: normal respiratory effort; no respiratory distress Auscultation: lungs clear to auscultation bilaterally Cardiovascular: Rate/Rhythm: regular rate and regular rhythm Heart Sounds: no murmur Vessels: posterior tibial pulses present Gastrointestinal (Abdomen): Inspection/Auscultation: abdomen normal to inspection and normal bowel sounds Percussion/Palpation: abdomen soft; abdomen nontender Musculoskeletal: No acute arthritis involving any of the joints Neurologic: no focal motor deficits Psychiatric: A+Ox3, euthymic affect Lymphatic: no cervical or axillary lymphadenopathy Results & Data Vital Signs (Past 12 Hours) Vital Signs Temp Pulse Resp BP BP Pulse Ox 10/03/18 14:51 36.4 C L 75 18 148/93 H 95 10/03/18 07:08 36.7 C 90 18 151/95 H 95 Laboratory Results Short CBC 10/03/18 Range/Units 05:59 WBC 4.94 (4.8-10.8) K/uL Hgb 11.8 L (14.0-18.0) g/dL Hct 36.3 L (42-52) % Plt Count 143 (130-400) K/uL BMP 10/03/18 05:59 Creatinine 1.24 Urine 10/02/18 Range/Units 17:00 Urine Color Dark Yellow Urine Appearance Clear (Clear) Urine pH 5.0 (4.5-7.5) Ur Specific [place] 1.025 (1.000-1.030) Urine Protein Trace H (Negative) Urine Glucose (UA) Negative (Negative) Medications Administered Current Inpatient Medications Acetaminophen (Tylenol) 650 mg PO Q4H PRN PRN Reason: pain/fever Stop: 11/01/18 02:24 Albuterol (Combivent Respimat) 1 puffs INH QID PRN PRN Reason: Shortness Of Breath Stop: 11/01/18 02:24 Allopurinol (Zyloprim) 300 mg PO [facility] Stop: 11/01/18 08:59 Last Admin: 10/03/18 08:24 Dose: 300 mg Documented by: Amlodipine Besylate (Norvasc) 2.5 mg PO [facility] Stop: 11/01/18 08:59 Last Admin: 10/03/18 08:24 Dose: 2.5 mg Documented by: Aspirin (Ecotrin Ectab) 81 mg PO [facility] Stop: 11/01/18 08:59 Last Admin: 10/03/18 08:23 Dose: 81 mg Documented by: Atorvastatin Calcium (Lipitor) 40 mg PO [facility] Stop: 11/01/18 08:59 Last Admin: 10/03/18 08:25 Dose: 40 mg Documented by: Clonidine HCl (Catapres) 0.1 mg PO Q4H PRN PRN Reason: Hypertension Stop: 11/01/18 05:53 Clopidogrel Bisulfate (Plavix) 75 mg PO QAM [facility] Stop: 11/01/18 08:59 Last Admin: 10/03/18 08:25 Dose: 75 mg Documented by: Ferrous Sulfate (Feosol) 325 mg PO DAILY [facility] Stop: 11/01/18 08:59 Last Admin: 10/03/18 08:23 Dose: 325 mg Documented by: Gabapentin (Neurontin) 300 mg PO TID [facility] Stop: 11/01/18 08:59 Last Admin: 10/03/18 13:20 Dose: 300 mg Documented by: Heparin Sodium (Porcine) (Heparin Sodium (Porcine)) 5,000 units SQ Q8 [facility] Stop: 11/01/18 05:59 Last Admin: 10/03/18 13:21 Dose: 5,000 units Documented by: Dextrose/Sodium Chloride (D5w And Nss) 1,000 mls @ 75 mls/hr IV .[id number] [facility] Stop: 11/01/18 02:24 Last Admin: 10/03/18 03:31 Dose: 75 mls/hr Documented by: Vancomycin HCl 1,250 mg/ (Sodium Chloride) 275 mls @ 125 mls/hr IV Q18H [facility] Stop: 10/12/18 15:59 Last Infusion: 10/03/18 12:45 Dose: Infused Documented by: Magnesium Oxide (Mag-Ox) 400 mg PO BID [facility] Stop: 11/01/18 08:59 Last Admin: 10/03/18 08:22 Dose: 400 mg Documented by: Metoprolol Succinate (Toprol Xl) 50 mg PO QAM [facility] Stop: 11/01/18 08:59 Last Admin: 10/03/18 08:23 Dose: 50 mg Documented by: Mirabegron (Myrbetriq Er) 50 mg PO DAILY [facility] Stop: 11/01/18 08:59 Last Admin: 10/03/18 08:23 Dose: 50 mg Documented by: Miscellaneous (Order Awaiting Action) 1 ea N/A QS [facility] Stop: 11/01/18 07:59 Last Admin: 10/03/18 15:04 Dose: Not Given Documented by: Miscellaneous Information (Consult) 1 ea N/A UD PRN PRN Reason: Consult Stop: 11/01/18 02:24 Mometasone Furoate (Asmanex 220mcg) 2 puffs INH BID [facility] Stop: 11/01/18 08:59 Last Admin: 10/03/18 08:22 Dose: 2 puffs Documented by: Multivitamins (Multivitamin Tab) 1 tab PO DAILY [facility] Stop: 11/01/18 08:59 Last Admin: 10/03/18 08:24 Dose: 1 tab Documented by: Ondansetron HCl (Zofran) 4 mg IV Q6H PRN PRN Reason: Nausea Stop: 11/01/18 02:24 Pantoprazole Sodium (Protonix) 40 mg PO DAILY [facility] Stop: 11/01/18 08:59 Last Admin: 10/03/18 08:25 Dose: 40 mg Documented by: Polyethylene Glycol (Miralax Powder Packet) 17 gm PO DAILY PRN PRN Reason: Constipation Stop: 11/01/18 02:24 Prednisone (Prednisone) 5 mg PO DAILY [facility] Stop: 11/01/18 08:59 Last Admin: 10/03/18 08:25 Dose: 5 mg Documented by: Tamsulosin HCl (Flomax) 0.4 mg PO DAILY [facility] Stop: 11/01/18 08:59 Last Admin: 10/03/18 08:23 Dose: 0.4 mg Documented by: Tolterodine Tartrate (Detrol La) 4 mg PO DAILY [facility] Stop: 11/01/18 08:59 Last Admin: 10/03/18 08:23 Dose: 4 mg Documented by: Tramadol HCl (Ultram) 50 - 100 mg PO Q6H PRN PRN Reason: Pain Stop: 11/01/18 02:24 Vitamin B Complex (Vitamin B Complex) 1 tab PO DAILY [facility] Stop: 11/01/18 08:59 Last Admin: 10/03/18 08:23 Dose: 1 tab Documented by: Vitamin D (Vitamin D3) 2,000 units PO DAILY [facility] Stop: 11/01/18 08:59 Last Admin: 10/03/18 08:25 Dose: 2,000 units Documented by: (1) Leg ulcer, left Non-pressure ulcer stage: unspecified non-pressure ulcer stage Qualified Code(s): L97.929 - Non-pressure chronic ulcer of unspecified part of left lower leg with unspecified severity
[2018-10-04] MEDS ORDERED: VANCOMYCIN TROUGH ONE (03:30)
[2018-10-04 04:08] LABS: Creatinine Clr Calc Pharmacy 50.7 ml/min; Est GFR (African American) 71.6; Est GFR (Non-African American) 61.8
[2018-10-04] MEDS: VANCOMYCIN HCL 1,250 MG in SODIUM CHLORIDE 0.9% 250 ML IV SCH (04:28)
[2018-10-04 04:32] LABS: Folate (Folic Acid) 12.62 ng/ml (>5.38)
[2018-10-04] MEDS: HEPARIN SOD 5,000 UNIT/0.5 ML VIAL SQ SCH ×3 (05:54→21:09)
[2018-10-04] MEDS: ALLOPURINOL 300 MG TAB PO SCH (07:48)
[2018-10-04] MEDS: AVODART~ORDER AWAITING ACTION SCH ×2 (07:48→15:08)
[2018-10-04] MEDS: D5W AND NSS 1,000 ML IV SCH (07:48)
[2018-10-04] MEDS: MOMETASONE FUROATE 14 PUFF/1 INHALER INH SCH ×2 (07:49→21:10)
[2018-10-04] MEDS: ATORVASTATIN 40 MG TAB PO SCH (07:49)
[2018-10-04] MEDS: AMLODIPINE BESYLATE 5 MG TAB PO SCH (07:49)
[2018-10-04] MEDS: MULTIVITAMIN TAB PO SCH (07:50)
[2018-10-04] MEDS: CLOPIDOGREL BISULFATE 75 MG TAB PO SCH (07:50)
[2018-10-04] MEDS: PANTOprazole 40 MG TAB PO SCH (07:50)
[2018-10-04] MEDS: FERROUS SULFATE 325 MG TAB PO SCH (07:50)
[2018-10-04] MEDS: GABAPENTIN 300 MG CAP PO SCH ×3 (07:50→21:10)
[2018-10-04] MEDS: TOLTERODINE TARTRATE LA 4 MG CAPCR PO SCH (07:50)
[2018-10-04] MEDS: predniSONE 5 MG TAB PO SCH (07:50)
[2018-10-04] MEDS: VITAMIN B COMPLEX TAB PO SCH (07:51)
[2018-10-04] MEDS: ASPIRIN 81 MG ECTAB PO SCH (07:51)
[2018-10-04] MEDS: METOPROLOL SUCC 50MG EXT REL TAB PO SCH (07:51)
[2018-10-04] MEDS: MAGNESIUM OXIDE 400 MG TAB PO SCH ×2 (07:51→21:10)
[2018-10-04] MEDS: CHOLECALCIFEROL 1,000 UNITS TAB PO SCH (07:52)
[2018-10-04] MEDS: MIRABEGRON ER 25 MG TAB PO SCH (07:52)
[2018-10-04] MEDS: TAMSULOSIN HCL 0.4 MG CAP PO SCH (07:53)
--- NOTE | 2018-10-04 08:22 | Pharmacy Report ---
Pharmacy Abx Dose Short Note - Date of Service October 04, 2018 - Assessment & Plan Assessment 87 year old M receiving vancomycin for treatment of LLE cellulitis Day # 3 of antimicrobial therapy. Plan Vancomycin * Trough level of came back therapeutic at ~15 mcg/ml (goal 15-20 mcg/ml for cellulitis/ulcer) * Drawn before the 4th overall dose, drawn before steady state - anticipate true trough slightly higher * Will continue with same vancomycin regimen of 1250 mg iv q 18 hrs * Per MD notes, area of cellulitis appears to be improving - likely discharge on oral abx Pharmacy will continue to follow and will adjust dose/frequency as necessary. Thank you.
[2018-10-04] MEDS: AMOXICILLIN/CLAVULANATE 500 MG TAB PO SCH ×2 (12:33→17:33)
--- NOTE | 2018-10-04 14:18 | Hospitalist Progress Note ---
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 Likely the contributing factors of ambulatory dysfunction and is complicated by Leg ulcer and cellulitis PT and OT evaluation for possible placement-recommended rehab Discussed with the patient and likely he will be going home Social service consult-likely to be discharged home with home health nurse and outpatient physical therapy He will still carry the risk of falling and he is aware about that (2) Neuropathy: Noted to have peripheral neuropathy 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 He does not have any diabetes We will check vitamin B12 and folate level-normal (3) Leg ulcer, left: Chronic leg ulcer Noted as in the picture Adjoining cellulitis Has been getting IV Vanco and Zosyn for now Awaiting blood culture Appreciate wound care Change antibiotic to oral Augmentin on discharge We will continue with dressing as per recommendation from the wound care (4) Aortic stenosis: Has significant aortic stenosis as per echo in the Denies any symptoms of chest pain and/or syncope (5) COPD (chronic obstructive pulmonary disease): History of COPD Does not have any shortness of breath and wheezing Continue current medication (6) Hypertension: Blood pressure remains in the lower side of normal Continue with current medication (7) Esophageal dysmotility: Anorexia Difficulty swallowing is complicated by huge hiatal hernia as well Subjective 10/02 Patient was seen and examined in medical floor He has been complaining of unsteady gait for the last few years Condition got worse recently Complaint history of some pain at the leg wound Denies any fever and/or chills 10/03 The patient was seen and examined in medical floor He denies any symptoms ongoing ambulatory dysfunction His leg ulcer and cellulitis has improved a lot Denies any fever and/or chills 10/04 Patient is seen and examined in medical floor He remains stable without any significant symptoms He does not want to go to any skilled care facility Likely be discharged home tomorrow or day after Review of Systems 2 Review of Systems: All systems reviewed and are unremarkable except as noted Musculoskeletal: Has unsteady gait without any acute arthritis. 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 without any pain Neurologic: Has peripheral neuropathy likely cause for unsteady gait Physical Exam Physical Exam: No apparent distress at rest Constitutional: well developed and well nourished; no acute distress and not ill appearing Eyes: PERRL, conjunctivae normal, anicteric sclerae ENMT: external ear and nose normal, oropharynx normal Neck: trachea midline, no thyromegaly Respiratory: normal respiratory effort; no respiratory distress Auscultation: lungs clear to auscultation bilaterally Cardiovascular: Rate/Rhythm: regular rate and regular rhythm Heart Sounds: no murmur Vessels: posterior tibial pulses present Gastrointestinal (Abdomen): Inspection/Auscultation: abdomen normal to inspection and normal bowel sounds Percussion/Palpation: abdomen soft; abdome n nontender Skin: Erythema involving the left lower leg seems to be improving. No drainage from the wound Neurologic: no focal motor deficits Psychiatric: A+Ox3, euthymic affect Lymphatic: no cervical or axillary lymphadenopathy Results & Data Vital Signs (Past 12 Hours) Vital Signs Temp Pulse Resp BP Pulse Ox 10/04/18 12:00 36.5 C 87 18 149/79 H 97 10/04/18 07:56 36.7 C 91 H 18 163/92 H 94 Laboratory Results [facility] 10/04/18 03:35 Creatinine 1.08 Medications Administered Current Inpatient Medications Acetaminophen (Tylenol) 650 mg PO Q4H PRN PRN Reason: pain/fever Stop: 11/01/18 02:24 Albuterol (Combivent Respimat) 1 puffs INH QID PRN PRN Reason: Shortness Of Breath Stop: 11/01/18 02:24 Allopurinol (Zyloprim) [address] [facility] Stop: 11/01/18 08:59 Last Admin: 10/04/18 07:48 Dose: 300 mg Documented by: Amlodipine Besylate (Norvasc) 2.[address] [facility] Stop: 11/01/18 08:59 Last Admin: 10/04/18 07:49 Dose: 2.5 mg Documented by: Amoxicillin/Clavulanate Potassium (Augmentin 500mg) 1 tab PO BIDM [facility]; Protocol Stop: 10/14/18 09:59 Last Admin: 10/04/18 12:33 Dose: 1 tab Documented by: Aspirin (Ecotrin Ectab) [address] [facility] Stop: 11/01/18 08:59 Last Admin: 10/04/18 07:51 Dose: 81 mg Documented by: Atorvastatin Calcium (Lipitor) [address] [facility] Stop: 11/01/18 08:59 Last Admin: 10/04/18 07:49 Dose: 40 mg Documented by: Clonidine HCl (Catapres) 0.1 mg PO Q4H PRN PRN Reason: Hypertension Stop: 11/01/18 05:53 Clopidogrel Bisulfate (Plavix) 75 mg PO QAM [facility] Stop: 11/01/18 08:59 Last Admin: 10/04/18 07:50 Dose: 75 mg Documented by: Ferrous Sulfate (Feosol) 325 mg PO DAILY [facility] Stop: 11/01/18 08:59 Last Admin: 10/04/18 07:50 Dose: 325 mg Documented by: Gabapentin (Neurontin) 300 mg PO TID [facility] Stop: 11/01/18 08:59 Last Admin: 10/04/18 13:40 Dose: 300 mg Documented by: Heparin Sodium (Porcine) (Heparin Sodium (Porcine)) 5,000 units SQ Q8 [facility] Stop: 11/01/18 05:59 Last Admin: 10/04/18 13:40 Dose: 5,000 units Documented by: Dextrose/Sodium Chloride (D5w And Nss) 1,000 mls @ 75 mls/hr IV .[id number] [facility] Stop: 11/01/18 02:24 Last Admin: 10/04/18 07:48 Dose: 75 mls/hr Documented by: Magnesium Oxide (Mag-Ox) 400 mg PO BID [facility] Stop: 11/01/18 08:59 Last Admin: 10/04/18 07:51 Dose: 400 mg Documented by: Metoprolol Succinate (Toprol Xl) 50 mg PO QAM [facility] Stop: 11/01/18 08:59 Last Admin: 10/04/18 07:51 Dose: 50 mg Documented by: Mirabegron (Myrbetriq Er) 50 mg PO DAILY [facility] Stop: 11/01/18 08:59 Last Admin: 10/04/18 07:52 Dose: 50 mg Documented by: Miscellaneous (Order Awaiting Action) 1 ea N/A QS [facility] Stop: 11/01/18 07:59 Last Admin: 10/04/18 07:48 Dose: Not Given Documented by: Mometasone Furoate (Asmanex 220mcg) 2 puffs INH BID [facility] Stop: 11/01/18 08:59 Last Admin: 10/04/18 07:49 Dose: 2 puffs Documented by: Multivitamins (Multivitamin Tab) 1 tab PO DAILY [facility] Stop: 11/01/18 08:59 Last Admin: 10/04/18 07:50 Dose: 1 tab Documented by: Ondansetron HCl (Zofran) 4 mg IV Q6H PRN PRN Reason: Nausea Stop: 11/01/18 02:24 Pantoprazole Sodium (Protonix) 40 mg PO DAILY [facility] Stop: 11/01/18 08:59 Last Admin: 10/04/18 07:50 Dose: 40 mg Documented by: Polyethylene Glycol (Miralax Powder Packet) 17 gm PO DAILY PRN PRN Reason: Constipation Stop: 11/01/18 02:24 Prednisone (Prednisone) 5 mg PO DAILY [facility] Stop: 11/01/18 08:59 Last Admin: 10/04/18 07:50 Dose: 5 mg Documented by: Tamsulosin HCl (Flomax) 0.4 mg PO DAILY [facility] Stop: 11/01/18 08:59 Last Admin: 10/04/18 07:53 Dose: 0.4 mg Documented by: Tolterodine Tartrate (Detrol La) 4 mg PO DAILY [facility] Stop: 11/01/18 08:59 Last Admin: 10/04/18 07:50 Dose: 4 mg Documented by: Tramadol HCl (Ultram) 50 - 100 mg PO Q6H PRN PRN Reason: Pain Stop: 11/01/18 02:24 Vitamin B Complex (Vitamin B Complex) 1 tab PO DAILY [facility] Stop: 11/01/18 08:59 Last Admin: 10/04/18 07:51 Dose: 1 tab Documented by: Vitamin D (Vitamin D3) 2,000 units PO DAILY [facility] Stop: 11/01/18 08:59 Last Admin: 10/04/18 07:52 Dose: 2,000 units Documented by: (1) Leg ulcer, left Non-pressure ulcer stage: unspecified non-pressure ulcer stage Qualified Code(s): L97.929 - Non-pressure chronic ulcer of unspecified part of left lower leg with unspecified severity
[2018-10-05] MEDS: AVODART~ORDER AWAITING ACTION SCH ×4 (00:02→23:09)
[2018-10-05] MEDS: D5W AND NSS 1,000 ML IV SCH (00:42)
[2018-10-05] MEDS: HEPARIN SOD 5,000 UNIT/0.5 ML VIAL SQ SCH ×3 (05:22→21:45)
[2018-10-05 05:57] LABS: Hematocrit (blood only) 35.9 % (42-52); Hemoglobin 11.7 g/dL (14.0-18.0); Mean Corpuscular Hgb Conc 32.6 g/dL (32-36); Mean Corpuscular Volume 81.6 fL (80-100); Mean Platelet Volume 9.8 fL (7.4-10.4); Platelet Count 152 K/uL (130-400); RDW Coefficient of Variation 14.6 % (11.5-14.5); RDW Standard Deviation 43.5 fL (36.4-46.3); White Blood Count 6.95 K/uL (4.8-10.8)
[2018-10-05 06:20] LABS: Creatinine Clr Calc Pharmacy 49.8 ml/min; Est GFR (African American) 70.1; Est GFR (Non-African American) 60.5
[2018-10-05] MEDS: AMLODIPINE BESYLATE 5 MG TAB PO SCH (07:32)
[2018-10-05] MEDS: METOPROLOL SUCC 50MG EXT REL TAB PO SCH (07:33)
[2018-10-05] MEDS: CHOLECALCIFEROL 1,000 UNITS TAB PO SCH (07:33)
[2018-10-05] MEDS: ATORVASTATIN 40 MG TAB PO SCH (07:33)
[2018-10-05] MEDS: GABAPENTIN 300 MG CAP PO SCH ×3 (07:33→20:16)
[2018-10-05] MEDS: CLOPIDOGREL BISULFATE 75 MG TAB PO SCH (07:33)
[2018-10-05] MEDS: MAGNESIUM OXIDE 400 MG TAB PO SCH ×2 (07:34→20:15)
[2018-10-05] MEDS: MIRABEGRON ER 25 MG TAB PO SCH (07:34)
[2018-10-05] MEDS: TAMSULOSIN HCL 0.4 MG CAP PO SCH (07:34)
[2018-10-05] MEDS: TOLTERODINE TARTRATE LA 4 MG CAPCR PO SCH (07:34)
[2018-10-05] MEDS: FERROUS SULFATE 325 MG TAB PO SCH (07:34)
[2018-10-05] MEDS: MULTIVITAMIN TAB PO SCH (07:34)
[2018-10-05] MEDS: PANTOprazole 40 MG TAB PO SCH (07:34)
[2018-10-05] MEDS: ALLOPURINOL 300 MG TAB PO SCH (07:35)
[2018-10-05] MEDS: AMOXICILLIN/CLAVULANATE 500 MG TAB PO SCH ×2 (07:35→17:21)
[2018-10-05] MEDS: ASPIRIN 81 MG ECTAB PO SCH (07:35)
[2018-10-05] MEDS: predniSONE 5 MG TAB PO SCH (07:35)
[2018-10-05] MEDS: VITAMIN B COMPLEX TAB PO SCH (07:35)
[2018-10-05] MEDS: MOMETASONE FUROATE 14 PUFF/1 INHALER INH SCH ×2 (07:40→20:17)
--- NOTE | 2018-10-05 13:19 | Hospitalist Progress Note ---
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 Likely the contributing factors of ambulatory dysfunction and is complicated by Leg ulcer and cellulitis PT and OT evaluation for possible placement-recommended rehab Discussed with the patient and likely he will be going home Social service consult-likely to be discharged home with home health nurse and outpatient physical therapy He will still carry the risk of falling and he is aware about that Discussed with the daughter in detail Likely to go home tomorrow with home health nurse (2) Neuropathy: Noted to have peripheral neuropathy 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 He does not have any diabetes We will check vitamin B12 and folate level-normal (3) Leg ulcer, left: Chronic leg ulcer Noted as in the picture Adjoining cellulitis Has been getting IV Vanco and Zosyn for now Awaiting blood culture Appreciate wound care Change antibiotic to oral Augmentin on discharge We will continue with dressing as per recommendation from the wound care Leg wound is completely healed Will need to keep that area clean and dry (4) Aortic stenosis: Has significant aortic stenosis as per echo in the Denies any symptoms of chest pain and/or syncope (5) COPD (chronic obstructive pulmonary disease): History of COPD Does not have any shortness of breath and wheezing Continue current medication (6) Hypertension: Blood pressure remains in the lower side of normal Continue with current medication (7) Esophageal dysmotility: Anorexia Difficulty swallowing is complicated by huge hiatal hernia as well Discharge tomorrow Subjective 10/02 Patient was seen and examined in medical floor He has been complaining of unsteady gait for the last few years Condition got worse recently Complaint history of some pain at the leg wound Denies any fever and/or chills 10/03 The patient was seen and examined in medical floor He denies any symptoms ongoing ambulatory dysfunction His leg ulcer and cellulitis has improved a lot Denies any fever and/or chills 10/04 Patient is seen and examined in medical floor He remains stable without any significant symptoms He does not want to go to any skilled care facility Likely be discharged home tomorrow or day after 10/05 The patient was seen and examined in medical floor Still complains to unsteady gait Denies any other symptoms No more neck pain on the cellulitis of the left leg has improved a lot Physical Exam Constitutional: well developed and well nourished; no acute distress and not ill appearing Eyes: PERRL, conjunctivae normal, anicteric sclerae ENMT: external ear and nose normal, oropharynx normal Neck: trachea midline, no thyromegaly Respiratory: normal respiratory effort; no respiratory distress Auscultation: lungs clear to auscultation bilaterally Cardiovascular: Rate/Rhythm: regular rate and regular rhythm Heart Sounds: no murmur Vessels: posterior tibial pulses present Gastrointestinal (Abdomen): Inspection/Auscultation: abdomen normal to inspection and normal bowel sounds Percussion/Palpation: abdomen soft; abdomen nontender Skin: Left leg wound-dry and adjoining redness has improved Neurologic: no focal motor deficits Psychiatric: A+Ox3, euthymic affect Lymphatic: no cervical or axillary lymphadenopathy Results & Data Vital Signs (Past 12 Hours) Vital Signs Temp Pulse Resp BP Pulse Ox 10/05/18 07:25 36.6 C 92 H 16 138/84 94 (1) Leg ulcer, left Non-pressure ulcer stage: unspecified non-pressure ulcer stage Qualified Code(s): L97.929 - Non-pressure chronic ulcer of unspecified part of left lower leg with unspecified severity
[2018-10-06] MEDS: HEPARIN SOD 5,000 UNIT/0.5 ML VIAL SQ SCH ×2 (05:43→14:17)
[2018-10-06] MEDS: AVODART~ORDER AWAITING ACTION SCH (07:12)
[2018-10-06] MEDS: TAMSULOSIN HCL 0.4 MG CAP PO SCH (07:52)
[2018-10-06] MEDS: CLOPIDOGREL BISULFATE 75 MG TAB PO SCH (07:52)
[2018-10-06] MEDS: CHOLECALCIFEROL 1,000 UNITS TAB PO SCH (07:52)
[2018-10-06] MEDS: ASPIRIN 81 MG ECTAB PO SCH (07:53)
[2018-10-06] MEDS: AMOXICILLIN/CLAVULANATE 500 MG TAB PO SCH (07:53)
[2018-10-06] MEDS: MIRABEGRON ER 25 MG TAB PO SCH (07:53)
[2018-10-06] MEDS: predniSONE 5 MG TAB PO SCH (07:53)
[2018-10-06] MEDS: MULTIVITAMIN TAB PO SCH (07:53)
[2018-10-06] MEDS: FERROUS SULFATE 325 MG TAB PO SCH (07:53)
[2018-10-06] MEDS: VITAMIN B COMPLEX TAB PO SCH (07:53)
[2018-10-06] MEDS: METOPROLOL SUCC 50MG EXT REL TAB PO SCH (07:53)
[2018-10-06] MEDS: MAGNESIUM OXIDE 400 MG TAB PO SCH (07:53)
[2018-10-06] MEDS: GABAPENTIN 300 MG CAP PO SCH ×2 (07:53→14:16)
[2018-10-06] MEDS: PANTOprazole 40 MG TAB PO SCH (07:53)
[2018-10-06] MEDS: ALLOPURINOL 300 MG TAB PO SCH (07:54)
[2018-10-06] MEDS: TOLTERODINE TARTRATE LA 4 MG CAPCR PO SCH (07:54)
[2018-10-06] MEDS: AMLODIPINE BESYLATE 5 MG TAB PO SCH (07:54)
[2018-10-06] MEDS: ATORVASTATIN 40 MG TAB PO SCH (07:54)
[2018-10-06] MEDS: MOMETASONE FUROATE 14 PUFF/1 INHALER INH SCH (07:54)
[2018-10-06 08:13] LABS: BUN Creatinine Ratio 14.9 (10-20); Calcium 8.5 mg/dl (8.5-10.1); Creatinine Clr Calc Pharmacy 47.2 ml/min; Est GFR (African American) 65.7; Est GFR (Non-African American) 56.7; Potassium 3.7 mmol/L (3.5-5.1)
--- NOTE | 2018-10-06 14:26 | Hospitalist Progress Note ---
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 Likely the contributing factors of ambulatory dysfunction and is complicated by Leg ulcer and cellulitis PT and OT evaluation for possible placement-recommended rehab Discussed with the patient and likely he will be going home Social service consult-likely to be discharged home with home health nurse and outpatient physical therapy He will still carry the risk of falling and he is aware about that Discussed with the daughter in detail Likely to go home tomorrow with home health nurse Will be discharged home today with home health nurse (2) Neuropathy: Noted to have peripheral neuropathy 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 He does not have any diabetes We will check vitamin B12 and folate level-normal Advised to take extra precaution to avoid fall (3) Leg ulcer, left: Chronic leg ulcer Noted as in the picture Adjoining cellulitis Has been getting IV Vanco and Zosyn for now Awaiting blood culture Appreciate wound care Change antibiotic to oral Augmentin on discharge We will continue with dressing as per recommendation from the wound care Leg wound is completely healed Will need to keep that area clean and dry Leg ulcers are much improved and requires to keep it clean and dry (4) Aortic stenosis: Has significant aortic stenosis as per echo in the Denies any symptoms of chest pain and/or syncope No symptoms (5) COPD (chronic obstructive pulmonary disease): History of COPD Does not have any shortness of breath and wheezing Continue current medication Stable (6) Hypertension: Blood pressure remains in the lower side of normal Continue with current medication (7) Esophageal dysmotility: Anorexia Difficulty swallowing is complicated by huge hiatal hernia as well Discharge today Discussed with the daughter Subjective 10/02 Patient was seen and examined in medical floor He has been complaining of unsteady gait for the last few years Condition got worse recently Complaint history of some pain at the leg wound Denies any fever and/or chills 10/03 The patient was seen and examined in medical floor He denies any symptoms ongoing ambulatory dysfunction His leg ulcer and cellulitis has improved a lot Denies any fever and/or chills 10/04 Patient is seen and examined in medical floor He remains stable without any significant symptoms He does not want to go to any skilled care facility Likely be discharged home tomorrow or day after 10/05 The patient was seen and examined in medical floor Still complains to unsteady gait Denies any other symptoms No more neck pain on the cellulitis of the left leg has improved a lot 10/06 Patient was seen and examined in medical floor He denies any complaints today He has been ambulating with some difficulty He [place] [facility] instead will be going home with home health Review of Systems Review of Systems: All systems reviewed and are unremarkable except as noted Musculoskeletal: Has unsteady gait without any acute arthritis. 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 without any pain Neurologic: Has peripheral neuropathy likely cause for unsteady gait Physical Exam Physical Exam: No apparent distress at rest Constitutional: well developed and well nourished; no acute distress and not ill appearing Eyes: PERRL, conjunctivae normal, anicteric sclerae ENMT: external ear and nose normal, oropharynx normal Neck: trachea midline, no thyromegaly Respiratory: normal respiratory effort; no respiratory distress Auscultation: lungs clear to auscultation bilaterally Cardiovascular: Rate/Rhythm: regular rate and regular rhythm Heart Sounds: + murmur (2/6 ESM over precordium) Vessels: posterior tibial pulses present Gastrointestinal (Abdomen): Inspection/Auscultation: abdomen normal to inspection and normal bowel sounds Percussion/Palpation: abdomen soft; abd omen nontender Skin: Skin lesions in the legs shows much improvement. Neurologic: no focal motor deficits Psychiatric: A+Ox3, euthymic affect Lymphatic: no cervical or axillary lymphadenopathy Results & Data Vital Signs (Past 12 Hours) Vital Signs Temp Pulse Pulse Resp BP BP Pulse Ox 10/06/18 10:48 36.9 C 89 91 H 16 136/74 144/97 H 94 10/06/18 07:40 36.9 C 89 16 144/97 H 94 Laboratory Results [facility] 10/06/18 07:18 Sodium 140 Potassium 3.7 Chloride 106 Carbon Dioxide 28 BUN 17 Creatinine 1.16 Glucose 93 Calcium 8.5 Medications Administered Current Inpatient Medications Acetaminophen (Tylenol) 650 mg PO Q4H PRN PRN Reason: pain/fever Stop: 11/01/18 02:24 Albuterol (Combivent Respimat) 1 puffs INH QID PRN PRN Reason: Shortness Of Breath Stop: 11/01/18 02:24 Allopurinol (Zyloprim) 300 mg PO QAM [facility] Stop: 11/01/18 08:59 Last Admin: 10/06/18 07:54 Dose: 300 mg Documented by: [facility]od[facility]) [facility] [place]: 11/01/18 08:59 Last Admin: 10/06/18 07:54 Dose: 2.5 mg Documented by: Amoxicillin/Clavulanate Potassium (Augmentin 500mg) 1 tab PO BIDM [facility]; Protocol Stop: 10/14/18 09:59 Last Admin: 10/06/18 07:53 Dose: 1 tab Documented by: Aspirin (Ecotrin Ectab) 81 mg PO [facility] Stop: 11/01/18 08:59 Last Admin: 10/06/18 07:53 Dose: 81 mg Documented by: Atorvastatin Calcium (Lipitor) 40 mg PO [facility] Stop: 11/01/18 08:59 Last Admin: 10/06/18 07:54 Dose: 40 mg Documented by: Clonidine HCl (Catapres) 0.1 mg PO Q4H PRN PRN Reason: Hypertension Stop: 11/01/18 05:53 Clopidogrel Bisulfate (Plavix) 75 mg PO [facility] Stop: 11/01/18 08:59 Last Admin: 10/06/18 07:52 Dose: 75 mg Documented by: Ferrous Sulfate (Feosol) 325 mg PO DAILY [facility] Stop: 11/01/18 08:59 Last Admin: 10/06/18 07:53 Dose: 325 mg Documented by: Gabapentin (Neurontin) 300 mg PO TID [facility] Stop: 11/01/18 08:59 Last Admin: 10/06/18 14:16 Dose: 300 mg Documented by: Heparin Sodium (Porcine) (Heparin Sodium (Porcine)) 5,000 units SQ Q8 [facility] Stop: 11/01/18 05:59 Last Admin: 10/06/18 14:17 Dose: 5,000 units Documented by: Magnesium Oxide (Mag-Ox) 400 mg PO BID [facility] Stop: 11/01/18 08:59 Last Admin: 10/06/18 07:53 Dose: 400 mg Documented by: Metoprolol Succinate (Toprol Xl) 50 mg PO QAM [facility] Stop: 11/01/18 08:59 Last Admin: 10/06/18 07:53 Dose: 50 mg Documented by: Mirabegron (Myrbetriq Er) 50 mg PO DAILY [facility] Stop: 11/01/18 08:59 Last Admin: 10/06/18 07:53 Dose: 50 mg Documented by: Miscellaneous (Order Awaiting Action) 1 ea N/A QS [facility] Stop: 11/01/18 07:59 Last Admin: 10/06/18 07:12 Dose: Not Given Documented by: Mometasone Furoate (Asmanex 220mcg) 2 puffs INH BID [facility] Stop: 11/01/18 08:59 Last Admin: 10/06/18 07:54 Dose: 2 puffs Documented by: Multivitamins (Multivitamin Tab) 1 tab PO DAILY [facility] Stop: 11/01/18 08:59 Last Admin: 10/06/18 07:53 Dose: 1 tab Documented by: Ondansetron HCl (Zofran) 4 mg IV Q6H PRN PRN Reason: Nausea Stop: 11/01/18 02:24 Pantoprazole Sodium (Protonix) 40 mg PO DAILY [facility] Stop: 11/01/18 08:59 Last Admin: 10/06/18 07:53 Dose: 40 mg Documented by: Polyethylene Glycol (Miralax Powder Packet) 17 gm PO DAILY PRN PRN Reason: Constipation Stop: 11/01/18 02:24 Prednisone (Prednisone) 5 mg PO DAILY [facility] Stop: 11/01/18 08:59 Last Admin: 10/06/18 07:53 Dose: 5 mg Documented by: Tamsulosin HCl (Flomax) 0.4 mg PO DAILY [facility] Stop: 11/01/18 08:59 Last Admin: 10/06/18 07:52 Dose: 0.4 mg Documented by: Tolterodine Tartrate (Detrol La) 4 mg PO DAILY [facility] Stop: 11/01/18 08:59 Last Admin: 10/06/18 07:54 Dose: 4 mg Documented by: Tramadol HCl (Ultram) 50 - 100 mg PO Q6H PRN PRN Reason: Pain Stop: 11/01/18 02:24 Vitamin B Complex (Vitamin B Complex) 1 tab PO DAILY [facility] Stop: 11/01/18 08:59 Last Admin: 10/06/18 07:53 Dose: 1 tab Documented by: Vitamin D (Vitamin D3) 2,000 units PO DAILY [facility] Stop: 11/01/18 08:59 Last Admin: 10/06/18 07:52 Dose: 2,000 units Documented by: (1) Leg ulcer, left Non-pressure ulcer stage: unspecified non-pressure ulcer stage Qualified Code(s): L97.929 - Non-pressure chronic ulcer of unspecified part of left lower leg with unspecified severity
--- NOTE | 2018-10-15 08:05 | Discharge Summary ---
Date of Service October 15, 2018 Admission HPI Per Admitting Provider DATE OF ADMISSION: 10/02/2018 CHIEF COMPLAINT: Left lower extremity possible cellulitis, poor appetite, ambulatory dysfunction. HISTORY OF PRESENT ILLNESS: This is an 87-year-old male with past medical history significant for mild COPD, hyperlipidemia, nocturnal hypoxemia, moderate aortic valve stenosis, hypertension, volvulus of stomach, chronic kidney disease stage III, urinary incontinence, gout arthropathy, osteoporosis, generalized osteoarthritis, idiopathic peripheral neuropathy, iron deficiency anemia, psoriatic arthropathy, elevated PSA, comes because of poor appetite; left lower extremity possible cellulitis and ambulatory dysfunction. The patient lives with his son, but states his daughter takes care of him very well. She lives about 2 miles from his house and he also gets home health help twice a week. He is having ongoing poor appetite, losing weight about 10-15 pounds since last several months. His poor appetite is ongoing issue for some time now and patient's recent admissions, he had a barium swallow showing oesophageal_ dysmotility. Also underwent EGD that showed tortuous esophagus and he was noted to have large hiatal hernia; Also speech therapist recommended to him to be on slippery, soft diet, alternate solids and liquids small frequent meals. Seen By CT surgery and recommeded aortic valve surgery prior to hiatal hernia repair. The patient is trying to follow the speech therapist's recommendations. Follows with podiatry, he is on Unna boot on the right lower extremity. His left lower extremity has somewhat mild erythematous changes with scabs seen and his family doctor prescribed Keflex few days back on phone and patient went to see the family doctor today. The patient says he is not at all eating much. He is eating a little bit that makes him feel full and also feel nauseous, possibly secondary to his hiatal hernia. Does not want to take antibiotics when he is on empty stomach and the PCP felt that he needs to come to the hospital for possible IV antibiotics and hydration. The patient denies any fever or chills. Ambulates with help of walker but very poor ambulatory status as per patient. Denies any chest pain, no shortness of breath, no cough, no headaches, no blurred vision, no sore throat, swallowing okay. No cough, no abdominal pain, is getting constipated. He is moving his bowels only small amounts every other day. No burning micturition. Currently resting comfortably and hemodynamically stable. Admission Exam Per Admitting Provider GENERAL: The patient is old and frail, not in acute distress. VITAL SIGNS: Temperature 36.3, pulse 105, respiratory 19, blood pressure 173/112, oxygen 95% on room air. HEENT: No pallor, no icterus. Pupils equal, round, reactive to light. NECK: No JVD, no neck masses, no carotid bruits. CARDIOVASCULAR: S1, S2 heard. The patient has no murmur at the aortic area. No gallop. RESPIRATORY SYSTEM: Normal AP diameter. No accessory muscle use. No wheezing, no crackles. ABDOMEN: Soft, bowel sounds present. Nontender. No distention. CENTRAL NERVOUS SYSTEM: Cranial nerves II-XII grossly intact, nonfocal. EXTREMITIES: Right lower extremity is in Unna boot, left lower extremity has scab in the wayne region and mild erythematous changes below the scab.. Principal Diagnosis Ambulatory dysfunction, cellulitis right leg, stable aortic stenosis, stable COPD Discharge Exam Constitutional well developed and well nourished; no acute distress and not ill appearing Eyes PERRL, conjunctivae normal, anicteric sclerae ENMT external ear and nose normal, oropharynx normal Neck trachea midline, no thyromegaly Respiratory normal respiratory effort; no respiratory distress Auscultation: lungs clear to auscultation bilaterally Cardiovascular Rate/Rhythm: regular rate and regular rhythm Heart Sounds: + murmur (2/6 ESM over precordium) Vessels: posterior tibial pulses present Gastrointestinal (Abdomen) Inspection/Auscultation: abdomen normal to inspection and normal bowel sounds Percussion/Palpation: abdomen soft; abdomen nontender Neurologic no focal motor deficits Psychiatric A+Ox3, euthymic affect Lymphatic no cervical or axillary lymphadenopathy Discharge Data Allergies Allergy/AdvReac Type Severity Reaction Status Date / Time morphine Allergy Unknown "out of it Verified 10/01/18 23:06 for days" colchicine AdvReac Mild GI upset Verified 10/01/18 23:06 Rowan And Derivatives AdvReac Unknown STOMACH Verified 10/01/18 23:06 ACHE FROM [facility] tomato AdvReac Unknown HEADACHE Verified 10/01/18 23:06 FROM [facility]O [facility] Consultations 10/01/18 22:22 ED Decision to Admit Stat 10/02/18 02:25 Consult Case Management - Discharge Planning Routine 10/03/18 11:08 Consult Case Management - Discharge Planning Routine Hospital Course (1) Ambulatory dysfunction: Has been complaining of ambulatory dysfunction for the last 2 years Has peripheral neuropathy seems to be idiopathic Likely the contributing factors of ambulatory dysfunction and is complicated by Leg ulcer and cellulitis PT and OT evaluation for possible placement-recommended rehab Discussed with the patient and likely he will be going home Social service consult-likely to be discharged home with home health nurse and outpatient physical therapy He will still carry the risk of falling and he is aware about that Discussed with the daughter in detail Likely to go home tomorrow with home health nurse Will be discharged home today with home health nurse (2) Neuropathy: Noted to have peripheral neuropathy 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 He does not have any diabetes We will check vitamin B12 and folate level-normal Advised to take extra precaution to avoid fall (3) Leg ulcer, left: Chronic leg ulcer Noted as in the picture Adjoining cellulitis Has been getting IV Vanco and Zosyn for now Awaiting blood culture Appreciate wound care Change antibiotic to oral Augmentin on discharge We will continue with dressing as per recommendation from the wound care Leg wound is completely healed Will need to keep that area clean and dry Leg ulcers are much improved and requires to keep it clean and dry (4) Aortic stenosis: Has significant aortic stenosis as per echo in the Denies any symptoms of chest pain and/or syncope No symptoms (5) COPD (chronic obstructive pulmonary disease): History of COPD Does not have any shortness of breath and wheezing Continue current medication Stable (6) Hypertension: Blood pressure remains in the lower side of normal Continue with current medication (7) Esophageal dysmotility: Anorexia Difficulty swallowing is complicated by huge hiatal hernia as well Discharge today Discussed with the daughter Total Time Total Time Spent Total Time Spent (In Minutes): 35 minutes Total Time Includes: Examination of the Patient, Discharge Planning, Medication Reconciliation and Communication With Other Providers Discharge Plan Discharge Items Patient Disposition: Home - Home Health Services Reason For Visit: CELLULITIS,POOR APPETITE Discharge Diagnosis: Ambulatory dysfunction, cellulitis right leg, stable aortic stenosis, stable COPD Condition: Good Discharge Goals: Decrease discomfort, Improve function and Increase independence Activity: Resume your previous activity Non-emergency contact: Primary Care Provider Call non-emergency contact if: you have any medication questions and your symptoms worsen Follow-up/Referrals: Patrick Albarran MD [Primary Care Provider] - 10/09/18 11:05 am (Your appointment is with Dr. Perez. Dr. Vargas is not available) Diet: Heart Healthy Diet Texture: Dental soft (bite-sized) Addtl Provider Instructions: Please take precaution to avoid fall. Wound care as per instruction. Prescriptions: Continued tamsulosin 0.4 mg capsule 0.4 mg PO DAILY RF: 0 Asmanex Twisthaler 220 mcg (120 doses) Aerosol Powdr Breath Activated 2 inh INHALATION BID RF: 0 magnesium oxide 400 mg Capsule 400 mg PO BID RF: 0 Combivent Respimat 20-100 mcg/actuation Mist 1 puff INHALATION QID PRN (Reason: Shortness Of Breath) RF: 0 prednisone 5 mg tablet 5 mg PO DAILY RF: 0 tramadol 50 mg Tablet 50 - 100 mg PO Q6H PRN (Reason: Pain) RF: 0 pantoprazole 40 mg tablet,delayed release (DR/EC) 40 mg PO DAILY RF: 0 ferrous sulfate [iron] 325 mg (65 mg iron) Tablet 325 mg PO DAILY RF: 0 vitamin B complex Capsule 1 cap PO DAILY RF: 0 cholecalciferol (vitamin D3) [Vitamin D3] 2,000 unit Capsule 2,000 unit PO DAILY RF: 0 allopurinol 300 mg tablet 300 mg PO QAM RF: 0 atorvastatin 40 mg tablet 40 mg PO QAM RF: 0 metoprolol succinate 50 mg tablet extended release 24 hr 50 mg PO QAM RF: 0 amlodipine 2.5 mg tablet 2.5 mg PO QAM RF: 0 clopidogrel 75 mg tablet 75 mg PO QAM RF: 0 aspirin 81 mg Tablet,Delayed Release (Dr/Ec) 81 mg PO QAM RF: 0 dutasteride 0.5 mg capsule 0.5 mg PO QAM RF: 0 tolterodine 4 mg capsule,extended release 24hr 4 mg PO DAILY RF: 0 mirabegron 50 mg tablet extended release 24 hr 50 mg PO DAILY RF: 0 gabapentin 300 mg capsule 300 mg PO TID RF: 0 multivitamin Tablet 1 tab PO DAILY RF: 0 Visit Report Forms: Smoking Cessation Stand-Alone Forms: [facility], [facility], Work/School Release (Inpt) Discharge Orders: Discharge Order (Routine); Ordered 10/06/18 Ordered By: Khalif De La Cruz Admission Data Admit Date/Time: 10/02/18 01:16 Attending Provider: Khalif De La Cruz Admit Provider: Ole Marte Primary Care Provider: Patrick Albarran Service: Medical Other Interventions: Discharge Summary Assessment (RN) Last Done: 10/06/18 10:48 DC Date/Time DO NOT enter until pt leaves facility: 10/06/18 16:53
== END 2018-10-06 16:53 | disposition home health service (06) | DRG 603 ==
LOC: ED 20:06 → 4E 10-02 01:16
DX: L97.329 Non-pressure chronic ulcer of left ankle with unspecified severity; J44.9 Chronic obstructive pulmonary disease, unspecified; Z79.52 Long term (current) use of systemic steroids; R26.2 Difficulty in walking, not elsewhere classified; I12.9 Hypertensive chronic kidney disease with stage 1 through stage 4 chronic kidney disease, or unspecified chronic kidney disease; K22.4 Dyskinesia of esophagus; L03.116 Cellulitis of left lower limb; I73.9 Peripheral vascular disease, unspecified; N40.0 Benign prostatic hyperplasia without lower urinary tract symptoms; Z79.899 Other long term (current) drug therapy; Z79.82 Long term (current) use of aspirin; Z79.01 Long term (current) use of anticoagulants; M10.9 Gout, unspecified; K44.9 Diaphragmatic hernia without obstruction or gangrene; I35.0 Nonrheumatic aortic (valve) stenosis; E78.5 Hyperlipidemia, unspecified; N18.3 Chronic kidney disease, stage 3 (moderate); E86.0 Dehydration

== ENCOUNTER 2018-12-01 13:08 | Inpatient (IN) ==
[2018-12-01] MEDS ORDERED: POLYETHYLENE (MIRALAX) 17 GM PACK PO PRN (13:49)
[2018-12-01] MEDS ORDERED: MAGNESIUM HYDROXIDE SUSP 30 ML UDC PO PRN (13:49)
[2018-12-01] MEDS ORDERED: ONDANSETRON INJ 2 MG/ML 2 ML VIAL IV PRN (13:49)
[2018-12-01] MEDS ORDERED: ALUMINUM/MAGNESIUM SUSP 30 ML UDC PO PRN (13:49)
[2018-12-01] MEDS ORDERED: PATIENT'S HEIGHT AND/OR WEIGHT NEEDED SCH (14:00)
[2018-12-01] MEDS ORDERED: PIPERACILL/TAZOBAC CONSULT ACTIVE PRN (14:22)
[2018-12-01] MEDS ORDERED: VANCOMYCIN CONSULT ACTIVE PRN (14:22)
[2018-12-01] MEDS ORDERED: TRAMADOL HCL 50 MG TABLET PO PRN (14:26)
[2018-12-01] MEDS ORDERED: IPRATROPIUM BROMIDE/ALBUTEROL respimat INH INH PRN (14:26)
[2018-12-01 15:12] LABS: INR 1.1 (0.9-1.1); Prothrombin Time 11.2 Seconds (9.0-12.0)
[2018-12-01 15:27] LABS: Albumin Level 2.7 gm/dl (3.4-5.0); BUN Creatinine Ratio 10.8 (10-20); Creatinine Clr Calc Pharmacy 52.7 ml/min; Est GFR (African American) 76.2; Est GFR (Non-African American) 65.8; Magnesium 2.2 mg/dl (1.8-2.4); Potassium 3.8 mmol/L (3.5-5.1)
[2018-12-01 15:29] LABS: Albumin Globulin Ratio 0.6 (0.9-2); Bilirubin,Total 0.6 mg/dl (0.2-1); Globulin 4.9 gm/dl (2.5-4.0); Total Protein 7.6 gm/dl (6.4-8.2)
[2018-12-01] MEDS ORDERED: PIPERACILLIN/TAZOBACTAM 3.375 GM in DEXTROSE 5% 100 ML IV ONE (15:30)
[2018-12-01 15:43] LABS: Hematocrit (blood only) 33.8 % (42-52); Hemoglobin 10.5 g/dL (14.0-18.0); Mean Corpuscular Hgb Conc 31.1 g/dL (32-36); Mean Corpuscular Volume 81.3 fL (80-100); Mean Platelet Volume 9.6 fL (7.4-10.4); Platelet Count 245 K/uL (130-400); RDW Standard Deviation 44.4 fL (36.4-46.3); Red Blood Count 4.16 M/uL (4.7-6.1); White Blood Count 7.24 K/uL (4.8-10.8)
--- NOTE | 2018-12-01 15:59 | History & Physical Report ---
Date of Service December 01, 2018 Assessment & Plan (1) Leg ulcer, left: admit to med/surg begin IV vanco/zosyn per pharmacy wound care consulted daily dressing changes consult pt/ot (2) Peripheral vascular disease: PAD 11/14/18 endovenous RFA of L GSV by Dr. Kendrick continue plavix, asa, statin (3) Hypertension: blood pressure controlled with amlodipine, metoprolol (4) Dyslipidemia: continue atorvastatin (5) CKD (chronic kidney disease), stage III: bun/cr stable at 11 and 1.02 monitor while on vanco (6) Psoriatic arthritis: continue chronic low dose daily prednisone (7) Anemia: H/H stable at 10.5/33.8 like in setting of chronic disease and chronic wounds (8) Aortic stenosis: currently asymptomatic hx of diastolic dysfunction monitor for s/sx of volume overload (9) Esophageal dysmotility: slippery, soft bite size diet (10) COPD (chronic obstructive pulmonary disease): No acute exacerbation Continue inhalers (11) Gout: continue allopurinol (12) DVT prophylaxis: heparin SQ disposition: to be determined follow up: PCP Dr. Albarran upon discharge patient was seen and examined in collaboration with Dr. Reno, please see addendum History of Present Illness Chief Complaint: Direct admission from wound clinic due to deteriorating left lower extreme vascular ulceration. Primary Care Provider: Patrick Albarran MD This is an 88-year-old male who has a significant past medical history of HTN, HLD, COPD, moderate aortic valve stenosis, chronic diastolic CHF, PAD w hx of intervention, peripheral neuropathy, gout and psoriatic arthropathy, CARA who presents to [facility] as a direct admission from wound care clinic due to deterioration of left lower extremity vascular ulceration and IV antibiotics. He was seen in wound clinic today for evaluation of bilateral ulcerations. His right lower extremity traumatic ulceration is much improved and healing well. His left lower leg venous stasis ulcer has deteriorated. His wounds were debrided of slough and eschar and he tolerated well. Wounds were dressed with silvercel and 1 layer tubigrip to be changed daily. It was uncertain if pt taking his oral antibiotics correctly so he was referred for admission. Overall he currently feels well. States L leg is very itchy but not painful. Denies f/c/s, chest pain, sob at rest, palpitations, n/v/d, change in bowel or bladder habits. Currently requesting food. Of significance pt was hospitalized [facility] 10/02-10/15 secondary to amb dysfxn, poor appetite and LLE cellulitis. Wound cx at time +staph requiring IV antibiotics and eventually discharged to home, wound care with oral antibiotics. Repeat wound culture +staph and corynebacterium on 11/12. Last wound culture +MSSA 11/24. He has been prescribed oral cefnidir but unsure if taking accurately. Wound was recultured today prior to being dressed. Allergies Allergy/AdvReac Type Severity Reaction Status Date / Time morphine Allergy Unknown "out of it Verified 12/01/18 11:47 for days" colchicine AdvReac Mild GI upset Verified 12/01/18 11:47 [place] And Derivatives AdvReac Unknown STOMACH Verified 12/01/18 11:47 ACHE FROM [employer] [facility] tomato AdvReac Unknown HEADACHE Verified 12/01/18 11:47 FROM [facility]OMATO [facility]UICE Home Medications Home Medications Medication Instructions Recorded Confirmed Type allopurinol 300 mg PO QAM 01/20/18 12/01/18 History amlodipine 2.5 mg PO QAM 01/20/18 12/01/18 History aspirin 81 mg PO QAM 01/20/18 12/01/18 History atorvastatin 40 mg PO QAM 01/20/18 12/01/18 History clopidogrel 75 mg PO QAM 01/20/18 12/01/18 History dutasteride 0.5 mg PO QAM 01/20/18 12/01/18 History gabapentin 300 mg PO TID 01/20/18 12/01/18 History metoprolol succinate 50 mg PO QAM 01/20/18 12/01/18 History mirabegron 50 mg PO DAILY 01/20/18 12/01/18 History tolterodine 4 mg PO DAILY 01/20/18 12/01/18 History Asmanex Twisthaler 2 inh INHALATION BID 05/30/18 12/01/18 History Combivent Respimat 1 puff INHALATION QID PRN 05/30/18 12/01/18 History magnesium oxide 400 mg PO BID 05/30/18 12/01/18 History tamsulosin 0.4 mg PO DAILY 05/30/18 12/01/18 History multivitamin 1 tab PO DAILY 06/09/18 12/01/18 History cholecalciferol (vitamin D3) 2,000 unit PO DAILY 10/01/18 12/01/18 History [Vitamin D3] ferrous sulfate [iron] 325 mg PO DAILY 10/01/18 12/01/18 History pantoprazole 40 mg PO DAILY 10/01/18 12/01/18 History prednisone 5 mg PO DAILY 10/01/18 12/01/18 History tramadol 50 - 100 mg PO Q6H PRN 10/01/18 12/01/18 History vitamin B complex 1 cap PO DAILY 10/01/18 12/01/18 History Past Med/Surg History Medical History COPD (chronic obstructive pulmonary disease) (Chronic) Hypertension (Chronic) Gout (Chronic) CKD (chronic kidney disease), stage III (Chronic) Osteoporosis (Chronic) Psoriatic arthritis (Chronic) Dyslipidemia (Chronic) Aortic stenosis (Chronic) "echo 02/2017 - severe " On 03/21/15 18:55 Angela Jaramillo wrote "moderate" Tobacco abuse (Resolved) H/O atrial flutter (Chronic) "occurred postoperatively in 01/2014, converted to sinus rhythm with IV diltiazem" Nocturnal hypoxemia (Chronic) History of duodenal ulcer (Chronic) H/O diastolic dysfunction (Chronic) "grade I per echo 02/2017" On 03/21/15 19:09 Angela Jaramillo wrote "grade I per echo 01/2014" BPH (benign prostatic hypertrophy) (Chronic) Volvulus of stomach (Chronic) Neuropathy (Chronic) Peripheral vascular disease (Chronic) s/p angioplasty of right posterior tibial artery Urinary incontinence (Chronic) Hiatal hernia (Chronic) Renal lesion (Chronic) Esophageal dysmotility (Chronic) MAXI (acute kidney injury) (Inactive) Abnormal finding on CT scan (Inactive) Dysphagia (Inactive) Furuncle (Inactive) History of COPD (Inactive) History of heart valve insufficiency (Inactive) Umbilical hernia (Inactive) Weight loss (Inactive) Surgical History History of angioplasty of peripheral vessel (Chronic) History of cardiac cath (Chronic) Status post endovenous radiofrequency ablation of saphenous vein (Chronic) History of lithotripsy (Chronic) History of back surgery (Chronic) Family History Mother Colorectal cancer Sister Breast cancer Lung cancer Father Parkinson disease Social History Preferred Language: Lao Communication Ability: Effective Visual Impairment: Limited Hearing Ability: Normal Street Car Inspector Required: No Beliefs That Will Affect Care: None marital status: / Current Living Situation: Alone Current Living Situation Comment: pt states daughter checks on pt frequently current occupational status: retired Other Information That Helps Us Care for You: No other: walks with walker Feels Safe at Home: Yes Safety Concerns: Feels Safe At This Time Smoking Status: Former smoker Tobacco Type: cigarettes and smokeless tobacco ; Do You Dip or Chew Tobacco: No ; Second Hand Exposure: No ; Hx Alcohol Use: No Hx Substance Use: No Review of Systems Review of Systems: As noted per HPI, 10 systems reviewed and negative unless noted above. Physical Exam Physical Exam: Gen: Elderly, male, NAD, sitting up in bed, pleasant, conversing easily Head: Normocephalic, Atraumatic Eyes: Sclera normal, no conjunctival injection, PERRLA, EOMI ENT: Gross hearing intact, normal pharynx, mucous membranes moist Neck: supple, no adenopathy, No JVD, no bruit, Resp: Clear to auscultation b/l, no wheeze, rales, rhonchi. 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 This represents a 98% improvement in wound size since last visit. Wound base is covered in slough. No odor present. Small amount of serosanguineous drainage is present. Periwound is intact. Wound #4 to the left lower leg is larger today measuring 4.0 x 12 x 0.2 cm in size. Wound base is covered in slough with necrotic tissue noted as well. No odor present. Moderate amount of yellow drainage is present. Periwound is inflamed." Results & Data Vital Signs (Past 12 Hours) Vital Signs Temp Pulse Pulse Resp BP Pulse Ox 12/01/18 15:09 37 C 105 H 18 145/89 H 96 12/01/18 13:30 92 H 24 132/72 94 Laboratory Results Short CBC 12/01/18 Range/Units Unknown WBC 7.24 (4.8-10.8) K/uL Hgb 10.5 L (14.0-18.0) g/dL Hct 33.8 L (42-52) % Plt Count 245 (130-400) K/uL BMP 12/01/18 14:40 Sodium 138 Potassium 3.8 Chloride 104 Carbon Dioxide 28 BUN 11 Creatinine 1.02 Glucose 126 H Calcium 8.0 L Liver Function 12/01/18 Range/Units 14:40 Total Bilirubin 0.6 (0.2-1) mg/dl AST 11 L (15-37) U/L ALT 10 L (12-78) U/L Alkaline Phosphatase 107 (45-117) U/L Albumin 2.7 L (3.4-5.0) gm/dl Medications Administered Discontinued Medications Piperacillin Sod/Tazobactam (Sod 3.375 gm/ Dextrose) 115 mls @ 230 mls/hr IV NOW ONE; Protocol Stop: 12/01/18 15:59 Last Admin: 12/01/18 15:36 Dose: 230 mls/hr Documented by: [id number] Miscellaneous (Patient's Height And/Or Weight Needed) 1 ea N/A Q2H [facility] Stop: 12/31/18 13:59 Last Admin: 12/01/18 15:09 Dose: Not Given Documented by: [id number] Code Status & VTE Plan Code Status Full Code VTE Prophylaxis Plan VTE Prophylaxis will be ordered: Yes Supervising Physician Co-Signing Physician Notes Pt was seen and examined. Agreed with Arpita exam, assessment and plan. 88-year-old male who has a significant past medical history of HTN, HLD, COPD, moderate aortic valve stenosis, chronic diastolic CHF, PAD w hx of intervention, peripheral neuropathy, gout and psoriatic arthropathy, CARA was sent from wound care clinic as a direct admission for worsening left lower extremity vascular ulceration. Last wound culture +MSSA 11/24. He was given cefdinir, but not sure if patient was taken the oral Cefdinir. Will start on IV Vanco and Zosyn. Continue daily wound care. Wound care consult. Might consider ID consult. Continue monitor closely. MD Shadia (1) Leg ulcer, left Non-pressure ulcer stage: unspecified non-pressure ulcer stage Qualified Co de(s): L97.929 - Non-pressure chronic ulcer of unspecified part of left lower leg with unspecified severity
[2018-12-01] MEDS ORDERED: VANCOMYCIN HCL 1,750 MG in SODIUM CHLORIDE 0.9% 500 ML IV ONE (16:00)
--- NOTE | 2018-12-01 17:04 | Pharmacy Report ---
Pharmacy Abx Initial Consult - Date of Service December 01, 2018 - Pharmacy Dosing Scope Date of Consult: 12/01/18 Consultation requested by: Arpita Jackson PA-C Pharmacy is consulted to initiate Vancomycin IV dosing therapy, order appropriate labs and adjust drug dose/frequency. - Subjective The patient is a 88 year old M admitted on 12/01/18 13:12. - Objective Height: 5 ft 10 in Weight: 78.5 kg Vital Signs (Past 12hrs): Vital Signs Temp Pulse Pulse Resp BP Pulse Ox 12/01/18 15:09 37 C 105 H 18 145/89 H 96 12/01/18 13:30 92 H 24 132/72 94 Lab Results (24hrs): Laboratory Tests (24 Hours) 12/01/18 12/01/18 Unknown 14:40 WBC 7.24 Creatinine 1.02 Est Cr Clr Drug Dosing 52.7 - Risk Factors for Resistance * Antimicrobial use within the last 90 days [Cefdinir] - Assessment & Plan Assessment 88 year old M admitted for non-healing left leg wound. Patient is being by wound clinic and had been on Cefdinir as outpatient. He is currently admitted for IV antibiotics lower extremity cellulitis. He was recently admitted in September and was treated with Vancomycin then. History of CKD- stage 3. Plan Vancomycin for treatment of bilateral lower extremity Cellulitis. Vancomycin IV * Scr = 1.02, Crcl = 52.7 similar to admission in September, therefore will use same dosing regimen as at that time. * Loading dose: 1750 mg (22 mg/kg) IV x 1 dose * Maintenance dose: 1250 mg IV (15.9 mg/kg) every 18 hours * Goal trough level for Cellulitis: 12 to 20 mcg/mL * Trough level ordered for 12/03/18 before 1600 dose. Pharmacy will continue to follow and will adjust dose/frequency as necessary. Thank you.
[2018-12-01] MEDS: GABAPENTIN 300 MG CAP PO SCH (20:49)
[2018-12-01] MEDS: MAGNESIUM OXIDE 400 MG TAB PO SCH (20:49)
[2018-12-01] MEDS: MOMETASONE FUROATE 14 PUFF/1 INHALER INH SCH (20:50)
[2018-12-01] MEDS: HEPARIN SOD 5,000 UNIT/0.5 ML VIAL SQ SCH (21:22)
[2018-12-01] MEDS: PIPERACILLIN/TAZOBACTAM 3.375 GM in DEXTROSE 5% 100 ML IV SCH (21:23)
[2018-12-01] MEDS: ACETAMINOPHEN 325 MG TAB PO PRN (23:54)
[2018-12-02] MEDS: VANCOMYCIN HCL 1,250 MG in SODIUM CHLORIDE 0.9% 250 ML IV SCH ×2 (04:46→21:45)
[2018-12-02] MEDS: HEPARIN SOD 5,000 UNIT/0.5 ML VIAL SQ SCH ×3 (05:35→21:18)
[2018-12-02] MEDS: PIPERACILLIN/TAZOBACTAM 3.375 GM in DEXTROSE 5% 100 ML IV SCH ×3 (06:05→23:03)
[2018-12-02 06:36] LABS: Basophils # (auto) 0.03 K/uL (0-0.2); Basophils % (auto) 0.5 %; Eosinophils # (auto) 0.49 K/uL (0-0.5); Hematocrit (blood only) 32.3 % (42-52); Hemoglobin 10.4 g/dL (14.0-18.0); Immature Granulocytes # (auto) 0.01 K/uL (0.00-0.02); Immature Granulocytes % (auto) 0.2 %; Lymphocytes # (auto) 1.07 K/uL (1.2-3.4); Lymphocytes % (auto) 17.6 %; Mean Corpuscular Hgb Conc 32.2 g/dL (32-36); Mean Corpuscular Volume 79.8 fL (80-100); Mean Platelet Volume 9.3 fL (7.4-10.4); Monocytes # (auto) 0.61 K/uL (0.11-0.59); Neutrophils # (auto) 3.88 K/uL (1.4-6.5); Neutrophils % (auto) 63.7 %; Platelet Count 229 K/uL (130-400); Red Blood Count 4.05 M/uL (4.7-6.1); White Blood Count 6.09 K/uL (4.8-10.8)
[2018-12-02 07:08] LABS: BUN Creatinine Ratio 11.7 (10-20); Est GFR (African American) 68.1; Est GFR (Non-African American) 58.7; Potassium 3.9 mmol/L (3.5-5.1)
[2018-12-02] MEDS: AMLODIPINE BESYLATE 5 MG TAB PO SCH (09:11)
[2018-12-02] MEDS: CHOLECALCIFEROL 1,000 UNITS TAB PO SCH (09:11)
[2018-12-02] MEDS: FERROUS SULFATE 325 MG TAB PO SCH (09:12)
[2018-12-02] MEDS: ASPIRIN 81 MG ECTAB PO SCH (09:12)
[2018-12-02] MEDS: VITAMIN B COMPLEX TAB PO SCH (09:12)
[2018-12-02] MEDS: MIRABEGRON ER 25 MG TAB PO SCH (09:12)
[2018-12-02] MEDS: TOLTERODINE TARTRATE LA 4 MG CAPCR PO SCH (09:12)
[2018-12-02] MEDS: MULTIVITAMIN TAB PO SCH (09:12)
[2018-12-02] MEDS: PANTOprazole 40 MG TAB PO SCH (09:12)
[2018-12-02] MEDS: ALLOPURINOL 300 MG TAB PO SCH (09:13)
[2018-12-02] MEDS: TAMSULOSIN HCL 0.4 MG CAP PO SCH (09:13)
[2018-12-02] MEDS: predniSONE 5 MG TAB PO SCH (09:13)
[2018-12-02] MEDS: CLOPIDOGREL BISULFATE 75 MG TAB PO SCH (09:13)
[2018-12-02] MEDS: METOPROLOL SUCC 50MG EXT REL TAB PO SCH (09:13)
[2018-12-02] MEDS: MAGNESIUM OXIDE 400 MG TAB PO SCH ×2 (09:14→21:18)
[2018-12-02] MEDS: GABAPENTIN 300 MG CAP PO SCH ×3 (09:14→21:18)
[2018-12-02] MEDS: MOMETASONE FUROATE 14 PUFF/1 INHALER INH SCH ×2 (09:14→21:45)
[2018-12-02] MEDS: ATORVASTATIN 40 MG TAB PO SCH (09:14)
[2018-12-02] MEDS: FINASTERIDE 5 MG TAB PO SCH (13:42)
[2018-12-02] MEDS ORDERED: Nursing to Pharmacy Communication ONE (19:13)
--- NOTE | 2018-12-02 19:56 | Hospitalist Progress Note ---
Date of Service December 02, 2018 Assessment & Plan (1) Leg ulcer, left: Was sent from wound care clinic for worsening LE wound Continue IV vanco/zosyn per pharmacy Continue daily wound care Wound care on board Will consult wound provider (2) Peripheral vascular disease: 11/14/18 endovenous RFA of L GSV by Dr. Kendrick continue plavix, asa, statin (3) Hypertension: BP stable Continue amlodipine, metoprolol (4) Dyslipidemia: continue atorvastatin (5) CKD (chronic kidney disease), stage III: Creatinine stable Monitor BMP while on abx (6) Psoriatic arthritis: continue chronic low dose daily prednisone (7) Anemia: Stable (8) Aortic stenosis: currently asymptomatic hx of diastolic dysfunction monitor for s/sx of volume overload (9) Esophageal dysmotility: slippery, soft bite size diet (10) COPD (chronic obstructive pulmonary disease): No acute exacerbation Continue inhalers (11) Gout: continue allopurinol (12) DVT prophylaxis: heparin SQ Disposition Will discharge once medically stable Subjective Pt was seen and examined Sitting in chair with no distress Denies any chest pain, palpitation, dizziness and SOB Physical Exam Physical Exam: General- No acute distress Head- atraumatic Eyes- PERRL, EOMI, ENT- oropharynx clear Neck- supple, no JVD Lungs- clear to auscultation Heart- regular rhythm; no murmur Abdomen- normal bowel sounds, soft, nontender Extremities- no calf tenderness, +B/L tubigrip dressings in place, Neuro- alert, oriented x 3; PERRL, EOMI; no facial palsy; no dysarthria Skin- warm & dry Results & Data Vital Signs (Past 12 Hours) Vital Signs Temp Pulse Resp BP Pulse Ox 12/02/18 15:16 36.8 C 89 16 133/80 95 (1) Leg ulcer, left Non-pressure ulcer stage: unspecified non-pressure ulcer stage Qualified Code(s): L97.929 - Non-pressure chronic ulcer of unspecified part of left lower leg with unspecified severity
[2018-12-03] MEDS: ACETAMINOPHEN 325 MG TAB PO PRN (01:39)
[2018-12-03] MEDS: HEPARIN SOD 5,000 UNIT/0.5 ML VIAL SQ SCH ×3 (05:47→20:57)
[2018-12-03] MEDS: PIPERACILLIN/TAZOBACTAM 3.375 GM in DEXTROSE 5% 100 ML IV SCH ×3 (05:50→20:57)
[2018-12-03 08:00] LABS: Est GFR (African American) 61.4
[2018-12-03] MEDS: TAMSULOSIN HCL 0.4 MG CAP PO SCH (09:05)
[2018-12-03] MEDS: MIRABEGRON ER 25 MG TAB PO SCH (09:05)
[2018-12-03] MEDS: TOLTERODINE TARTRATE LA 4 MG CAPCR PO SCH (09:05)
[2018-12-03] MEDS: MAGNESIUM OXIDE 400 MG TAB PO SCH ×2 (09:05→20:56)
[2018-12-03] MEDS: MULTIVITAMIN TAB PO SCH (09:05)
[2018-12-03] MEDS: ATORVASTATIN 40 MG TAB PO SCH (09:05)
[2018-12-03] MEDS: FERROUS SULFATE 325 MG TAB PO SCH (09:05)
[2018-12-03] MEDS: ASPIRIN 81 MG ECTAB PO SCH (09:05)
[2018-12-03] MEDS: GABAPENTIN 300 MG CAP PO SCH ×3 (09:06→20:56)
[2018-12-03] MEDS: FINASTERIDE 5 MG TAB PO SCH (09:06)
[2018-12-03] MEDS: predniSONE 5 MG TAB PO SCH (09:06)
[2018-12-03] MEDS: AMLODIPINE BESYLATE 5 MG TAB PO SCH (09:06)
[2018-12-03] MEDS: CLOPIDOGREL BISULFATE 75 MG TAB PO SCH (09:06)
[2018-12-03] MEDS: PANTOprazole 40 MG TAB PO SCH (09:06)
[2018-12-03] MEDS: VITAMIN B COMPLEX TAB PO SCH (09:07)
[2018-12-03] MEDS: METOPROLOL SUCC 50MG EXT REL TAB PO SCH (09:07)
[2018-12-03] MEDS: ALLOPURINOL 300 MG TAB PO SCH (09:07)
[2018-12-03] MEDS: CHOLECALCIFEROL 1,000 UNITS TAB PO SCH (09:07)
[2018-12-03] MEDS: MOMETASONE FUROATE 14 PUFF/1 INHALER INH SCH ×2 (09:34→20:56)
[2018-12-03] MEDS ORDERED: VANCOMYCIN TROUGH ONE (15:30)
--- NOTE | 2018-12-03 15:51 | Wound Consultation ---
Date of Consultation December 03, 2018 Assessment & Plan (1) Leg ulcer, left: Cellulitis is improving. No debridement was required today. Wounds will be dressed with Aquacel Ag and changed every other day. Continue antibiotics. We will see patient after discharge from the hospital. Thank you for allowing me to participate in the care of this patient. Please not hesitate to call with any questions. (2) Chronic venous insufficiency: History of Present Illness Reason for Consultation: Cellulitis left leg Attending Physician: Dillon Reno MD This is an 88-year-old male with chronic venous insufficiency of his left leg who is admitted from the wound clinic with worsening cellulitis of his left leg. Patient is seen sitting in his bed. Allergies Allergy/AdvReac Type Severity Reaction Status Date / Time morphine Allergy Unknown "out of it Verified 12/01/18 11:47 for days" colchicine AdvReac Mild GI upset Verified 12/01/18 11:47 [place] And Derivatives AdvReac Unknown STOMACH Verified 12/01/18 11:47 ACHE FROM [facility] tomato AdvReac Unknown HEADACHE Verified 12/01/18 11:47 FROM TOMATO [facility]UICE Home Medications Home Medications Medication Instructions Recorded Confirmed Type allopurinol 300 mg PO QAM 01/20/18 12/01/18 History amlodipine 2.5 mg PO QAM 01/20/18 12/01/18 History aspirin 81 mg PO QAM 01/20/18 12/01/18 History atorvastatin 40 mg PO QAM 01/20/18 12/01/18 History clopidogrel 75 mg PO QAM 01/20/18 12/01/18 History dutasteride 0.5 mg PO QAM 01/20/18 12/01/18 History gabapentin 300 mg PO TID 01/20/18 12/01/18 History metoprolol succinate 50 mg PO QAM 01/20/18 12/01/18 History mirabegron 50 mg PO DAILY 01/20/18 12/01/18 History tolterodine 4 mg PO DAILY 01/20/18 12/01/18 History Asmanex Twisthaler 2 inh INHALATION BID 05/30/18 12/01/18 History Combivent Respimat 1 puff INHALATION QID PRN 05/30/18 12/01/18 History magnesium oxide 400 mg PO BID 05/30/18 12/01/18 History tamsulosin 0.4 mg PO DAILY 05/30/18 12/01/18 History multivitamin 1 tab PO DAILY 06/09/18 12/01/18 History cholecalciferol (vitamin D3) 2,000 unit PO DAILY 10/01/18 12/01/18 History [Vitamin D3] ferrous sulfate [iron] 325 mg PO DAILY 10/01/18 12/01/18 History pantoprazole 40 mg PO DAILY 10/01/18 12/01/18 History prednisone 5 mg PO DAILY 10/01/18 12/01/18 History tramadol 50 - 100 mg PO Q6H PRN 10/01/18 12/01/18 History vitamin B complex 1 cap PO DAILY 10/01/18 12/01/18 History Patient History Medical History COPD (chronic obstructive pulmonary disease) (Chronic) Hypertension (Chronic) Gout (Chronic) CKD (chronic kidney disease), stage III (Chronic) Osteoporosis (Chronic) Psoriatic arthritis (Chronic) Dyslipidemia (Chronic) Aortic stenosis (Chronic) "echo 02/2017 - severe " On 03/21/15 18:55 Angela Jaramillo wrote "moderate" Tobacco abuse (Resolved) H/O atrial flutter (Chronic) "occurred postoperatively in 01/2014, converted to sinus rhythm with IV diltiazem" Nocturnal hypoxemia (Chronic) History of duodenal ulcer (Chronic) H/O diastolic dysfunction (Chronic) "grade I per echo 02/2017" On 03/21/15 19:09 Angela Jaramillo wrote "grade I per echo 01/2014" BPH (benign prostatic hypertrophy) (Chronic) Volvulus of stomach (Chronic) Neuropathy (Chronic) Peripheral vascular disease (Chronic) s/p angioplasty of right posterior tibial artery Urinary incontinence (Chronic) Hiatal hernia (Chronic) Renal lesion (Chronic) Esophageal dysmotility (Chronic) MAXI (acute kidney injury) (Inactive) Abnormal finding on CT scan (Inactive) Dysphagia (Inactive) Furuncle (Inactive) History of COPD (Inactive) History of heart valve insufficiency (Inactive) Umbilical hernia (Inactive) Weight loss (Inactive) Surgical History History of angioplasty of peripheral vessel (Chronic) History of cardiac cath (Chronic) Status post endovenous radiofrequency ablation of saphenous vein (Chronic) History of lithotripsy (Chronic) History of back surgery (Chronic) Family History Mother Colorectal cancer Sister Breast cancer Lung cancer Father Parkinson disease Social History Preferred Language: Luxembourger Communication Ability: Effective Visual Impairment: Limited Hearing Ability: Normal 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 Beliefs That Will Affect Care: None marital status: / Current Living Situation: Alone Current Living Situation Comment: pt states daughter checks on pt frequently current occupational status: retired Other Information That Helps Us Care for You: No other: walks with walker Feels Safe at Home: Yes Safety Concerns: Feels Safe At This Time Smoking Status: Former smoker Tobacco Type: cigarettes and smokeless tobacco ; Do You Dip or Chew Tobacco: No ; Second Hand Exposure: No ; Hx Alcohol Use: No Hx Substance Use: No Review of Systems Review of Systems: All systems reviewed & are unremarkable except as noted in HPI & below Physical Exam Skin: Wound measuring is recorded in the nursing documentation. Wound is covered with fibrin and slough. Periwound is intact with decreasing erythema. There is moderate drainage no foul odors. Neurologic: awake; not confused Psychiatric: A+Ox3, euthymic affect Results & Data Vital Signs (Past 12 Hours) Vital Signs Temp Pulse Pulse Resp BP Pulse Ox 12/03/18 15:19 36.4 C L 76 18 151/85 H 96 12/03/18 08:06 36.4 C L 84 18 156/86 H 95 (1) Leg ulcer, left Non-pressure ulcer stage: unspecified non-pressure ulcer stage Qualified Code(s): L97.929 - Non-pressure chronic ulcer of unspecified part of left lower leg with unspecified severity
[2018-12-03] MEDS: VANCOMYCIN HCL 1,250 MG in SODIUM CHLORIDE 0.9% 250 ML IV SCH (15:53)
--- NOTE | 2018-12-03 18:45 | Hospitalist Progress Note ---
Date of Service December 03, 2018 Assessment & Plan (1) Leg ulcer, left: Was sent from wound care clinic for worsening LE wound Continue IV vanco/zosyn per pharmacy Continue daily wound care Wound care on board Wound provider on board No debridement was required Continue abx with IV Zosyn and Vanco (2) Peripheral vascular disease: 11/14/18 endovenous RFA of L GSV by Dr. Kendrick continue plavix, asa, statin (3) Hypertension: BP stable Continue amlodipine, metoprolol (4) Dyslipidemia: continue atorvastatin (5) CKD (chronic kidney disease), stage III: Creatinine stable Monitor BMP while on abx (6) Psoriatic arthritis: continue chronic low dose daily prednisone (7) Anemia: Stable (8) Aortic stenosis: currently asymptomatic hx of diastolic dysfunction monitor for s/sx of volume overload (9) Esophageal dysmotility: slippery, soft bite size diet (10) COPD (chronic obstructive pulmonary disease): No acute exacerbation Continue inhalers (11) Gout: continue allopurinol (12) DVT prophylaxis: heparin SQ Disposition Will discharge once medically stable Subjective Pt was seen and examined Sitting in chair with no distress with daughter present Denies any chest pain, palpitation and SOB Physical Exam Physical Exam: General- No acute distress Head- atraumatic Eyes- PERRL, EOMI, ENT- oropharynx clear Neck- supple, no JVD Lungs- clear to auscultation Heart- regular rhythm; no murmur Abdomen- normal bowel sounds, soft, nontender Extremities- no calf tenderness, +B/L tubigrip dressings in place, Neuro- alert, oriented x 3; PERRL, EOMI; no facial palsy; no dysarthria Skin- warm & dry Results & Data Vital Signs (Past 12 Hours) Vital Signs Temp Pulse Pulse Resp BP Pulse Ox 12/03/18 15:19 36.4 C L 76 18 151/85 H 96 12/03/18 08:06 36.4 C L 84 18 156/86 H 95 (1) Leg ulcer, left Non-pressure ulcer stage: unspecified non-pressure ulcer stage Qualified Code(s): L97.929 - Non-pressure chronic ulcer of unspecified part of left lower leg with unspecified severity
[2018-12-04] MEDS: HEPARIN SOD 5,000 UNIT/0.5 ML VIAL SQ SCH ×3 (05:53→21:04)
[2018-12-04] MEDS: PIPERACILLIN/TAZOBACTAM 3.375 GM in DEXTROSE 5% 100 ML IV SCH ×3 (06:00→21:14)
[2018-12-04] MEDS: MOMETASONE FUROATE 14 PUFF/1 INHALER INH SCH ×2 (08:05→21:04)
[2018-12-04] MEDS: MAGNESIUM OXIDE 400 MG TAB PO SCH ×2 (08:07→21:04)
[2018-12-04] MEDS: AMLODIPINE BESYLATE 5 MG TAB PO SCH (08:08)
[2018-12-04] MEDS: ALLOPURINOL 300 MG TAB PO SCH (08:08)
[2018-12-04] MEDS: ATORVASTATIN 40 MG TAB PO SCH (08:09)
[2018-12-04] MEDS: CLOPIDOGREL BISULFATE 75 MG TAB PO SCH (08:10)
[2018-12-04] MEDS: CHOLECALCIFEROL 1,000 UNITS TAB PO SCH (08:10)
[2018-12-04] MEDS: predniSONE 5 MG TAB PO SCH (08:11)
[2018-12-04] MEDS: PANTOprazole 40 MG TAB PO SCH (08:11)
[2018-12-04] MEDS: METOPROLOL SUCC 50MG EXT REL TAB PO SCH (08:11)
[2018-12-04] MEDS: GABAPENTIN 300 MG CAP PO SCH ×3 (08:11→21:04)
[2018-12-04] MEDS: MULTIVITAMIN TAB PO SCH (08:11)
[2018-12-04] MEDS: VITAMIN B COMPLEX TAB PO SCH (08:12)
[2018-12-04] MEDS: TAMSULOSIN HCL 0.4 MG CAP PO SCH (08:12)
[2018-12-04] MEDS: MIRABEGRON ER 25 MG TAB PO SCH (08:12)
[2018-12-04] MEDS: FERROUS SULFATE 325 MG TAB PO SCH (08:13)
[2018-12-04] MEDS: FINASTERIDE 5 MG TAB PO SCH (08:13)
[2018-12-04] MEDS: ASPIRIN 81 MG ECTAB PO SCH (08:14)
[2018-12-04] MEDS: TOLTERODINE TARTRATE LA 4 MG CAPCR PO SCH (08:14)
[2018-12-04 09:16] LABS: BUN Creatinine Ratio 17.5 (10-20); Calcium 8.7 mg/dl (8.5-10.1); Est GFR (African American) 59.6; Est GFR (Non-African American) 51.4; Potassium 3.8 mmol/L (3.5-5.1)
--- NOTE | 2018-12-04 09:34 | Pharmacy Report ---
Pharmacy Abx Dose Short Note - Date of Service December 04, 2018 - Assessment & Plan Laboratory Tests 12/01/18 12/02/18 12/03/18 14:40 05:50 06:53 Creatinine 1.02 1.12 1.22 Est Cr Clr Drug Dosing 52.7 48.0 44.0 Vancomycin Trough 12/03/18 12/04/18 15:33 08:34 Creatinine 1.25 Est Cr Clr Drug Dosing 43.0 Vancomycin Trough 14.3 Assessment 88 year old M receiving IV Vancomycin and Zosyn for treatment of lower extremity cellulitis. Managed by wound care clinic, failed Cefdinir. Day # 4 of antimicrobial therapy. Plan Vancomycin * Trough level of 14.3 mcg/mL is just subtherapeutic after 3 total doses of Vancomycin, patient renal function worsening. * Continue dose of 1250 mg IV every 18 hours * Goal trough level for recurrent cellulitis : 15 to 20 mcg/mL * Trough level ordered for: 12/05/18 prior to 0400 dose Zosyn * 3.375g IV q8h for CrCl > 20ml/min - extended interval infusion Pharmacy will continue to follow and will adjust dose/frequency as necessary. Thank you.
[2018-12-04] MEDS: VANCOMYCIN HCL 1,250 MG in SODIUM CHLORIDE 0.9% 250 ML IV SCH (09:38)
--- NOTE | 2018-12-04 18:42 | Hospitalist Progress Note ---
Date of Service December 04, 2018 Assessment & Plan (1) Leg ulcer, left: Was sent from wound care clinic for worsening LE wound Continue IV vanco/zosyn per pharmacy Continue daily wound care Wound care on board Wound provider on board No debridement was required Continue abx with IV Zosyn and Vanco Will consider to change abx after tomorrow dose to augmentin and doxy (2) Peripheral vascular disease: 11/14/18 endovenous RFA of L GSV by Dr. Kendrick continue plavix, asa, statin (3) Hypertension: BP stable Continue amlodipine, metoprolol (4) Dyslipidemia: continue atorvastatin (5) CKD (chronic kidney disease), stage III: Creatinine stable Monitor BMP while on abx (6) Psoriatic arthritis: continue chronic low dose daily prednisone (7) Anemia: Stable (8) Aortic stenosis: currently asymptomatic hx of diastolic dysfunction monitor for s/sx of volume overload (9) Esophageal dysmotility: slippery, soft bite size diet (10) COPD (chronic obstructive pulmonary disease): No acute exacerbation Continue inhalers (11) Gout: continue allopurinol (12) DVT prophylaxis: heparin SQ Disposition Will discharge once medically stable Subjective Pt was seen and examined Sitting in chair with no distress Denies any chest pain, palpitation and SOB Physical Exam Physical Exam: General- No acute distress Head- atraumatic Eyes- PERRL, EOMI, ENT- oropharynx clear Neck- supple, no JVD Lungs- clear to auscultation Heart- regular rhythm; no murmur Abdomen- normal bowel sounds, soft, nontender Extremities- no calf tenderness, +B/L tubigrip dressings in place, Neuro- alert, oriented x 3; PERRL, EOMI; no facial palsy; no dysarthria Skin- warm & dry Results & Data Vital Signs (Past 12 Hours) Vital Signs Temp Pulse Resp BP BP Pulse Ox 12/04/18 15:52 36.7 C 75 18 109/70 95 12/04/18 07:20 36.8 C 82 18 153/90 H 96 (1) Leg ulcer, left Non-pressure ulcer stage: unspecified non-pressure ulcer stage Qualified Code(s): L97.929 - Non-pressure chronic ulcer of unspecified part of left lower leg with unspecified severity
[2018-12-05] MEDS: VANCOMYCIN HCL 1,250 MG in SODIUM CHLORIDE 0.9% 250 ML IV SCH (03:51)
[2018-12-05 04:06] LABS: Creatinine Clr Calc Pharmacy 36.3 ml/min; Est GFR (African American) 48.6; Est GFR (Non-African American) 41.9
[2018-12-05] MEDS: HEPARIN SOD 5,000 UNIT/0.5 ML VIAL SQ SCH ×3 (05:31→21:32)
[2018-12-05] MEDS: PIPERACILLIN/TAZOBACTAM 3.375 GM in DEXTROSE 5% 100 ML IV SCH ×3 (05:34→21:03)
[2018-12-05] MEDS: MOMETASONE FUROATE 14 PUFF/1 INHALER INH SCH ×2 (08:56→20:52)
[2018-12-05] MEDS: CLOPIDOGREL BISULFATE 75 MG TAB PO SCH (08:57)
[2018-12-05] MEDS: MAGNESIUM OXIDE 400 MG TAB PO SCH ×2 (08:57→17:59)
[2018-12-05] MEDS: AMLODIPINE BESYLATE 5 MG TAB PO SCH (08:57)
[2018-12-05] MEDS: ALLOPURINOL 300 MG TAB PO SCH (08:57)
[2018-12-05] MEDS: ATORVASTATIN 40 MG TAB PO SCH (08:57)
[2018-12-05] MEDS: CHOLECALCIFEROL 1,000 UNITS TAB PO SCH (08:57)
[2018-12-05] MEDS: FERROUS SULFATE 325 MG TAB PO SCH (08:58)
[2018-12-05] MEDS: PANTOprazole 40 MG TAB PO SCH (08:58)
[2018-12-05] MEDS: METOPROLOL SUCC 50MG EXT REL TAB PO SCH (08:58)
[2018-12-05] MEDS: MULTIVITAMIN TAB PO SCH (08:58)
[2018-12-05] MEDS: ASPIRIN 81 MG ECTAB PO SCH (08:58)
[2018-12-05] MEDS: FINASTERIDE 5 MG TAB PO SCH (08:58)
[2018-12-05] MEDS: predniSONE 5 MG TAB PO SCH (08:58)
[2018-12-05] MEDS: GABAPENTIN 300 MG CAP PO SCH ×3 (08:58→20:52)
[2018-12-05] MEDS: TOLTERODINE TARTRATE LA 4 MG CAPCR PO SCH (08:58)
[2018-12-05] MEDS: MIRABEGRON ER 25 MG TAB PO SCH (08:58)
[2018-12-05] MEDS: VITAMIN B COMPLEX TAB PO SCH (08:59)
[2018-12-05] MEDS: TAMSULOSIN HCL 0.4 MG CAP PO SCH (09:00)
--- NOTE | 2018-12-05 12:21 | Pharmacy Report ---
Pharmacy Abx Dose Short Note - Date of Service December 05, 2018 - Assessment & Plan Laboratory Tests 12/04/18 12/05/18 12/05/18 08:34 03:22 03:22 Creatinine 1.25 1.48 H Vancomycin Trough 18.4 Assessment 88 year old M receiving IV Vancomycin and Zosyn for treatment of bilateral leg wounds, referred from wound clinic Day # 5 of antimicrobial therapy. Renal function worse today. Plan Vancomycin * Trough level of 18.4 mcg/mL is therapeutic * Continue dose of 1250 mg IV every 18 hours * Goal trough level for skin and skin structure infections : 15 to 20 mcg/mL * Likely change to orals (Doxycycline and Augmentin) today, will not order further levels unless IV antibiotic duration is extended another 2-3 days. Zosyn * 3.375g IV Q8H extended interval infusion for CrCl > 20ml/min Pharmacy will continue to follow and will adjust dose/frequency as necessary. Thank you.
--- NOTE | 2018-12-05 17:26 | Hospitalist Progress Note ---
Date of Service December 05, 2018 Assessment & Plan (1) Leg ulcer, left: Was sent from wound care clinic for worsening LE wound Continue IV vanco/zosyn per pharmacy Continue daily wound care Wound care on board Wound provider on board No debridement was required Continue abx with IV Zosyn Will change IV vanco to doxy Will consider to change abx on discharge to augmentin and doxy (2) Peripheral vascular disease: 11/14/18 endovenous RFA of L GSV by Dr. Kendrick continue plavix, asa, statin (3) Hypertension: BP stable Continue amlodipine, metoprolol (4) Dyslipidemia: continue atorvastatin (5) CKD (chronic kidney disease), stage III: Creatinine slightly increased to 1.4 Monitor BMP while on abx (6) Psoriatic arthritis: continue chronic low dose daily prednisone (7) Anemia: Stable (8) Aortic stenosis: currently asymptomatic hx of diastolic dysfunction monitor for s/sx of volume overload (9) Esophageal dysmotility: slippery, soft bite size diet (10) COPD (chronic obstructive pulmonary disease): No acute exacerbation Continue inhalers (11) Gout: continue allopurinol (12) DVT prophylaxis: heparin SQ Disposition Follow up with Dr. Perez on 12/11 @ 10:05 AM Follow up with wound care clinic Will discharge once medically stable Subjective Pt was seen and examined Lying in bed with no distress watching TV Denies any chest pain, palpitation and SOB Physical Exam Physical Exam: General- No acute distress Head- atraumatic Eyes- PERRL, EOMI, ENT- oropharynx clear Neck- supple, no JVD Lungs- clear to auscultation Heart- regular rhythm; no murmur Abdomen- normal bowel sounds, soft, nontender Extremities- no calf tenderness, Left lower extremity wound ulcer improves (No drainage, erythema improve) Neuro- alert, oriented x 3; PERRL, EOMI; no facial palsy; no dysarthria Skin- warm & dry Results & Data Vital Signs (Past 12 Hours) Vital Signs Temp Pulse Pulse Resp BP BP Pulse Ox 12/05/18 14:55 36.2 C L 94 H 20 106/68 92 12/05/18 07:30 36.6 C 85 19 168/88 H 97 (1) Leg ulcer, left Non-pressure ulcer stage: unspecified non-pressure ulcer stage Qualified Code(s): L97.929 - Non-pressure chronic ulcer of unspecified part of left lower leg with unspecified severity
[2018-12-05] MEDS: DOXYCYCLINE HYCLATE 100 MG CAP PO SCH (20:51)
[2018-12-06] MEDS: PIPERACILLIN/TAZOBACTAM 3.375 GM in DEXTROSE 5% 100 ML IV SCH ×3 (05:39→21:19)
[2018-12-06] MEDS: MAGNESIUM OXIDE 400 MG TAB PO SCH ×2 (05:43→17:52)
[2018-12-06] MEDS: FERROUS SULFATE 325 MG TAB PO SCH (05:44)
[2018-12-06] MEDS: HEPARIN SOD 5,000 UNIT/0.5 ML VIAL SQ SCH ×3 (05:46→21:19)
[2018-12-06 06:58] LABS: Hematocrit (blood only) 34.9 % (42-52); Hemoglobin 11.3 g/dL (14.0-18.0); Mean Corpuscular Hgb Conc 32.4 g/dL (32-36); Mean Corpuscular Volume 79.7 fL (80-100); Platelet Count 281 K/uL (130-400); RDW Coefficient of Variation 15.2 % (11.5-14.5); RDW Standard Deviation 44.3 fL (36.4-46.3); Red Blood Count 4.38 M/uL (4.7-6.1); White Blood Count 7.51 K/uL (4.8-10.8)
[2018-12-06 07:22] LABS: BUN Creatinine Ratio 20.9 (10-20); Calcium 8.7 mg/dl (8.5-10.1); Creatinine Clr Calc Pharmacy 35.8 ml/min; Est GFR (African American) 47.8; Est GFR (Non-African American) 41.3; Potassium 3.9 mmol/L (3.5-5.1)
[2018-12-06] MEDS: MULTIVITAMIN TAB PO SCH (09:02)
[2018-12-06] MEDS: ATORVASTATIN 40 MG TAB PO SCH (09:02)
[2018-12-06] MEDS: CHOLECALCIFEROL 1,000 UNITS TAB PO SCH (09:02)
[2018-12-06] MEDS: CLOPIDOGREL BISULFATE 75 MG TAB PO SCH (09:02)
[2018-12-06] MEDS: METOPROLOL SUCC 50MG EXT REL TAB PO SCH (09:02)
[2018-12-06] MEDS: ALLOPURINOL 300 MG TAB PO SCH (09:02)
[2018-12-06] MEDS: predniSONE 5 MG TAB PO SCH (09:02)
[2018-12-06] MEDS: PANTOprazole 40 MG TAB PO SCH (09:02)
[2018-12-06] MEDS: AMLODIPINE BESYLATE 5 MG TAB PO SCH (09:02)
[2018-12-06] MEDS: TAMSULOSIN HCL 0.4 MG CAP PO SCH (09:03)
[2018-12-06] MEDS: VITAMIN B COMPLEX TAB PO SCH (09:03)
[2018-12-06] MEDS: TOLTERODINE TARTRATE LA 4 MG CAPCR PO SCH (09:03)
[2018-12-06] MEDS: DOXYCYCLINE HYCLATE 100 MG CAP PO SCH ×2 (09:03→20:06)
[2018-12-06] MEDS: ASPIRIN 81 MG ECTAB PO SCH (09:03)
[2018-12-06] MEDS: FINASTERIDE 5 MG TAB PO SCH (09:03)
[2018-12-06] MEDS: MIRABEGRON ER 25 MG TAB PO SCH (09:03)
[2018-12-06] MEDS: GABAPENTIN 300 MG CAP PO SCH ×3 (09:04→20:06)
[2018-12-06] MEDS: MOMETASONE FUROATE 14 PUFF/1 INHALER INH SCH ×2 (10:05→20:06)
--- NOTE | 2018-12-06 15:02 | Hospitalist Progress Note ---
Date of Service December 06, 2018 Assessment & Plan (1) Leg ulcer, left: Was sent from wound care clinic for worsening LE wound. Wound in LLE were debrided of slough and eschar prior to referring to ED. Clinically improving. Afebrile, no leukocytosis. No signs of sepsis -Received IV vancomycin/Zosyn. IV vancomycin was changed to doxycycline. Still on IV Zosyn. Day 6 Wound care on board recommends dressing changes every other day. No further debridement recommended Left lower extremity wound culture grows Corynebacterium species. (2) Peripheral vascular disease: 11/14/18 endovenous RFA of L GSV by Dr. Kendrick Continue plavix, asa, statin (3) Hypertension: BP stable Continue amlodipine, metoprolol (4) Dyslipidemia: -continue atorvastatin (5) CKD (chronic kidney disease), stage III: -Creatinine slightly increased to 1.5 -Monitor BMP while on abx (6) Psoriatic arthritis: -continue chronic low dose daily prednisone (7) Anemia: -Stable (8) Aortic stenosis: -currently asymptomatic Hx of diastolic dysfunction Monitor for s/sx of volume overload (9) Esophageal dysmotility: Slippery, soft bite size diet (10) COPD (chronic obstructive pulmonary disease): No acute exacerbation Continue inhalers (11) Gout: Continue allopurinol (12) DVT prophylaxis: Heparin SQ Disposition Follow up with Dr. Perez on 12/11 @ 10:05 AM Follow up with wound care clinic Likely discharge in 1 to 2 days. Discharge to home. Updated daughter by bedside. Subjective Patient denies any complaints. Patient denies any pain in lower extremities. No fever, chills. Does have incontinencecondom catheter present. Physical Exam Physical Exam: GENERAL- AAOX3, No acute distress NECK- Supple, no JVD LUNGS- Air entry bilaterally equal. No rales, rhonchi, crackles, wheezes heard. HEART- Regular rate and rhythm. No murmurs ABDOMEN- Soft, non tender, non distended, Bowel sounds heard. EXTREMITIES- LEFT LOWER EXTREMITY- Wound ulcer- improving, slough still +, Surrrounding erythema has significantly improved. Eschar +; No edema. RIGHT LOWER EXTREMITY- [facility] wound ulcer Results & Data Vital Signs (Past 12 Hours) Vital Signs Temp Pulse Resp BP Pulse Ox 12/06/18 07:11 36.1 C L 80 16 146/82 H 92 (1) Leg ulcer, left Non-pressure ulcer stage: unspecified non-pressure ulcer stage Qualified Code(s): L97.929 - Non-pressure chronic ulcer of unspecified part of left lower leg with unspecified severity
[2018-12-07] MEDS: FERROUS SULFATE 325 MG TAB PO SCH (06:07)
[2018-12-07] MEDS: HEPARIN SOD 5,000 UNIT/0.5 ML VIAL SQ SCH ×3 (06:07→21:40)
[2018-12-07] MEDS: MAGNESIUM OXIDE 400 MG TAB PO SCH ×2 (06:07→18:48)
[2018-12-07] MEDS: PIPERACILLIN/TAZOBACTAM 3.375 GM in DEXTROSE 5% 100 ML IV SCH ×3 (06:07→21:37)
[2018-12-07 07:23] LABS: Creatinine Clr Calc Pharmacy 41.3 ml/min; Est GFR (African American) 56.9; Est GFR (Non-African American) 49.1
[2018-12-07] MEDS: ATORVASTATIN 40 MG TAB PO SCH (09:07)
[2018-12-07] MEDS: GABAPENTIN 300 MG CAP PO SCH ×3 (09:08→21:40)
[2018-12-07] MEDS: DOXYCYCLINE HYCLATE 100 MG CAP PO SCH ×2 (09:08→21:40)
[2018-12-07] MEDS: FINASTERIDE 5 MG TAB PO SCH (09:08)
[2018-12-07] MEDS: PANTOprazole 40 MG TAB PO SCH (09:09)
[2018-12-07] MEDS: AMLODIPINE BESYLATE 5 MG TAB PO SCH (09:09)
[2018-12-07] MEDS: predniSONE 5 MG TAB PO SCH (09:09)
[2018-12-07] MEDS: MIRABEGRON ER 25 MG TAB PO SCH (09:09)
[2018-12-07] MEDS: ALLOPURINOL 300 MG TAB PO SCH (09:09)
[2018-12-07] MEDS: MULTIVITAMIN TAB PO SCH (09:09)
[2018-12-07] MEDS: MOMETASONE FUROATE 14 PUFF/1 INHALER INH SCH ×2 (09:10→21:40)
[2018-12-07] MEDS: CLOPIDOGREL BISULFATE 75 MG TAB PO SCH (09:10)
[2018-12-07] MEDS: VITAMIN B COMPLEX TAB PO SCH (09:10)
[2018-12-07] MEDS: METOPROLOL SUCC 50MG EXT REL TAB PO SCH (09:10)
[2018-12-07] MEDS: CHOLECALCIFEROL 1,000 UNITS TAB PO SCH (09:10)
[2018-12-07] MEDS: TOLTERODINE TARTRATE LA 4 MG CAPCR PO SCH (09:11)
[2018-12-07] MEDS: TAMSULOSIN HCL 0.4 MG CAP PO SCH (09:11)
[2018-12-07] MEDS: ASPIRIN 81 MG ECTAB PO SCH (09:11)
--- NOTE | 2018-12-07 14:33 | Hospitalist Progress Note ---
Date of Service December 07, 2018 Assessment & Plan (1) Leg ulcer, left: Was sent from wound care clinic for worsening LE wound. Wound in LLE were debrided of slough and eschar prior to referring to ED. Clinically improving. Afebrile, no leukocytosis. No signs of sepsis. Still has wound infection. -Received IV vancomycin/Zosyn. IV vancomycin was changed to doxycycline. Still on IV Zosyn- Day 7 --> Will change to PO Wound care on board recommends dressing changes every other day. No further debridement recommended Left lower extremity wound culture grows Corynebacterium species. (2) Peripheral vascular disease: 11/14/18 endovenous RFA of L GSV by Dr. Kendrick Continue plavix, asa, statin (3) Hypertension: BP stable Continue amlodipine, metoprolol (4) Dyslipidemia: -continue atorvastatin (5) CKD (chronic kidney disease), stage III: -Creatinine slightly increased to 1.5, now down to 1.3 -Monitor BMP while on abx (6) Psoriatic arthritis: -continue chronic low dose daily prednisone (7) Anemia: -Stable (8) Aortic stenosis: -currently asymptomatic Hx of diastolic dysfunction Monitor for s/sx of volume overload (9) Esophageal dysmotility: Slippery, soft bite size diet (10) COPD (chronic obstructive pulmonary disease): No acute exacerbation Continue inhalers (11) Gout: Continue allopurinol (12) DVT prophylaxis: Heparin SQ Disposition Follow up with Dr. Perez on 12/11 @ 10:05 AM Follow up with wound care clinic Likely discharge tomorrow. Ambulating by himself Updated daughter over phone Subjective Patient denies any complaints. Patient denies any pain in lower extremities. No fever, chills. Does have incontinencecondom catheter present. Physical Exam Physical Exam: GENERAL- AAOX3, No acute distress NECK- Supple, no JVD LUNGS- Air entry bilaterally equal. No rales, rhonchi, crackles, wheezes heard. HEART- Regular rate and rhythm. No murmurs ABDOMEN- Soft, non tender, non distended, Bowel sounds heard. EXTREMITIES- LEFT LOWER EXTREMITY- Wound ulcer- improving, slough still +, Surrrounding erythema has significantly improved. Eschar +; No edema. RIGHT LOWER EXTREMITY- [facility] wound ulcer Results & Data Vital Signs (Past 12 Hours) Vital Signs Temp Pulse Resp BP Pulse Ox 12/07/18 07:32 36.5 C 80 18 152/90 H 95 (1) Leg ulcer, left Non-pressure ulcer stage: unspecified non-pressure ulcer stage Qualified Code(s): L97.929 - Non-pressure chronic ulcer of unspecified part of left lower leg with unspecified severity
[2018-12-08] MEDS: PIPERACILLIN/TAZOBACTAM 3.375 GM in DEXTROSE 5% 100 ML IV SCH ×2 (06:15→14:46)
[2018-12-08] MEDS: MAGNESIUM OXIDE 400 MG TAB PO SCH (06:16)
[2018-12-08] MEDS: HEPARIN SOD 5,000 UNIT/0.5 ML VIAL SQ SCH ×2 (06:16→14:45)
[2018-12-08] MEDS: FERROUS SULFATE 325 MG TAB PO SCH (06:16)
[2018-12-08 06:28] LABS: Creatinine Clr Calc Pharmacy 35.4 ml/min; Est GFR (African American) 47.1; Est GFR (Non-African American) 40.6
[2018-12-08] MEDS: MOMETASONE FUROATE 14 PUFF/1 INHALER INH SCH (08:56)
[2018-12-08] MEDS: MIRABEGRON ER 25 MG TAB PO SCH (08:56)
[2018-12-08] MEDS: CLOPIDOGREL BISULFATE 75 MG TAB PO SCH (08:57)
[2018-12-08] MEDS: AMLODIPINE BESYLATE 5 MG TAB PO SCH (08:57)
[2018-12-08] MEDS: MULTIVITAMIN TAB PO SCH (08:57)
[2018-12-08] MEDS: VITAMIN B COMPLEX TAB PO SCH (08:57)
[2018-12-08] MEDS: predniSONE 5 MG TAB PO SCH (08:57)
[2018-12-08] MEDS: GABAPENTIN 300 MG CAP PO SCH ×2 (08:57→14:45)
[2018-12-08] MEDS: PANTOprazole 40 MG TAB PO SCH (08:57)
[2018-12-08] MEDS: ATORVASTATIN 40 MG TAB PO SCH (08:57)
[2018-12-08] MEDS: CHOLECALCIFEROL 1,000 UNITS TAB PO SCH (08:58)
[2018-12-08] MEDS: TOLTERODINE TARTRATE LA 4 MG CAPCR PO SCH (08:58)
[2018-12-08] MEDS: METOPROLOL SUCC 50MG EXT REL TAB PO SCH (08:58)
[2018-12-08] MEDS: ASPIRIN 81 MG ECTAB PO SCH (08:58)
[2018-12-08] MEDS: DOXYCYCLINE HYCLATE 100 MG CAP PO SCH (08:58)
[2018-12-08] MEDS: FINASTERIDE 5 MG TAB PO SCH (08:58)
[2018-12-08] MEDS: TAMSULOSIN HCL 0.4 MG CAP PO SCH (08:59)
[2018-12-08] MEDS: ALLOPURINOL 300 MG TAB PO SCH (08:59)
--- NOTE | 2018-12-08 14:35 | Hospitalist Progress Note ---
Date of Service December 08, 2018 Assessment & Plan (1) Leg ulcer, left: Was sent from wound care clinic for worsening LE wound. Wound in LLE were debrided of slough and eschar at wound clinic prior to referring to ED. Wound Infection has significantly improved with decrease in erythema, slough, tenderness. Afebrile, no leukocytosis. No signs of sepsis. -Received IV vancomycin/Zosyn. IV vancomycin was changed to doxycycline. Received IV zosyn x 7 days. Will change it to Augmentin and Doxycycline x 7 more days to complete course of 14 days of antibiotics per Wound care on board recommends dressing changes every other day and follow-up with wound care clinic once a week. No further debridement recommended Left lower extremity wound culture grows Corynebacterium species. (2) Peripheral vascular disease: 11/14/18 endovenous RFA of L GSV by Dr. Kendrick Continue plavix, asa, statin (3) Hypertension: BP stable Continue amlodipine, metoprolol (4) Dyslipidemia: -continue atorvastatin (5) CKD (chronic kidney disease), stage III: -Creatinine slightly increased to 1.5. Fluctuating. -Monitor BMP - Repeat it during next office appt (6) Psoriatic arthritis: -continue chronic low dose daily prednisone (7) Anemia: -Stable (8) Aortic stenosis: -Currently asymptomatic Hx of Diastolic dysfunction Monitor for s/sx of volume overload (9) Esophageal dysmotility: Slippery, soft bite size diet (10) COPD (chronic obstructive pulmonary disease): No acute exacerbation Continue inhalers (11) Gout: Continue allopurinol (12) DVT prophylaxis: Heparin SQ Disposition Follow up with Dr. Perez on 12/11 @ 10:05 AM Follow up with wound care clinic once a week Home health services with wound care at home MWF. Ambulating by himself Daughter aware about discharge plan Subjective Patient's left lower extremity wound was evaluated along with wound care nurse, pillowcase cleaner by bedside. Wound looks much better redness has significantly improved. Sloughing has decreased. No significant discharge. Denies any pain. No fever, chills. Does have incontinence condom catheter present. Physical Exam Physical Exam: GENERAL- AAOX3, No acute distress NECK- Supple, no JVD LUNGS- Air entry bilaterally equal. No rales, rhonchi, crackles, wheezes heard. HEART- Regular rate and rhythm. No murmurs ABDOMEN- Soft, non tender, non distended, Bowel sounds heard. EXTREMITIES- LEFT LOWER EXTREMITY - Wound ulcer - Improving, slough decreased; surrounding erythema resolving, no significant tenderness + Eschar +; No edema. RIGHT LOWER EXTREMITY - [facility] wound ulcer Results & Data Vital Signs (Past 12 Hours) Vital Signs Temp Pulse Resp BP Pulse Ox 12/08/18 07:54 36.4 C L 85 18 134/52 L 95 (1) Leg ulcer, left Non-pressure ulcer stage: unspecified non-pressure ulcer stage Qualified Code(s): L97.929 - Non-pressure chronic ulcer of unspecified part of left lower leg with unspecified severity
--- NOTE | 2018-12-09 11:59 | Discharge Summary ---
Date of Service December 09, 2018 Admission HPI Per Admitting Provider This is an 88-year-old male who has a significant past medical history of HTN, HLD, COPD, moderate aortic valve stenosis, chronic diastolic CHF, PAD w hx of intervention, peripheral neuropathy, gout and psoriatic arthropathy, CARA who presents to [facility] as a direct admission from wound care clinic due to deterioration of left lower extremity vascular ulceration and IV antibiotics. He was seen in wound clinic today for evaluation of bilateral ulcerations. His right lower extremity traumatic ulceration is much improved and healing well. His left lower leg venous stasis ulcer has deteriorated. His wounds were debrided of slough and eschar and he tolerated well. Wounds were dressed with silvercel and 1 layer tubigrip to be changed daily. It was uncertain if pt taking his oral antibiotics correctly so he was referred for admission. Overall he currently feels well. States L leg is very itchy but not painful. Denies f/c/s, chest pain, sob at rest, palpitations, n/v/d, change in bowel or bladder habits. Currently requesting food. Of significance pt was hospitalized [facility] 10/02-10/15 secondary to amb dysfxn, poor appetite and LLE cellulitis. Wound cx at time +staph requiring IV antibi otics and eventually discharged to home, wound care with oral antibiotics. Repeat wound culture +staph and corynebacterium on 11/12. Last wound culture +MSSA 11/24. He has been prescribed oral cefnidir but unsure if taking accurately. Wound was recultured today prior to being dressed. Principal Diagnosis 1. Bilateral Wounds, Left Lower extremity Wound infection Secondary diagnoses on discharge 1. Peripheral vascular disease 2. Hypertension 3. Dyslipidemia 4. CKD stage III 5. Psoriatic arthritis 6. Anemia 7. Aortic stenosis 8. Esophageal dysmotility 9. COPD without exacerbation 10. Gout Discharge Exam GENERAL- AAOX3, No acute distress NECK- Supple, no JVD LUNGS- Air entry bilaterally equal. No rales, rhonchi, crackles, wheezes heard. HEART- Regular rate and rhythm. No murmurs ABDOMEN- Soft, non tender, non distended, Bowel sounds heard. EXTREMITIES- LEFT LOWER EXTREMITY - Wound ulcer - Improving, slough decreased; surrounding erythema resolving, no significant tenderness + Eschar +; No edema. RIGHT LOWER EXTREMITY - [facility] wound ulcer Discharge Data Allergies Allergy/AdvReac Type Severity Reaction Status Date / Time morphine Allergy Unknown "out of it Verified 12/01/18 11:47 for days" colchicine AdvReac Mild GI upset Verified 12/01/18 11:47 Weld And Derivatives AdvReac Unknown STOMACH Verified 12/01/18 11:47 ACHE FROM [employer]RUS JUICE tomato AdvReac Unknown HEADACHE Verified 12/01/18 11:47 FROM TOMATO JUICE Consultations 12/01/18 13:50 Consult Case Management - Discharge Planning Routine 12/03/18 08:23 Consult Wound Care Provider Routine Hospital Course (1) Leg ulcer, left: Was sent from wound care clinic for worsening LE wound. Wound in LLE were debrided of slough and eschar at wound clinic prior to referring to ED. Wound Infection has significantly improved with decrease in erythema, slough, tenderness. Afebrile, no leukocytosis. No signs of sepsis. -Received IV vancomycin/Zosyn. IV vancomycin was changed to doxycycline. Received IV zosyn x 7 days. Changed to Augmentin and Doxycycline x 7 more days to complete course of 14 days of antibiotics Wound care on board recommends dressing changes every other day and follow-up with wound care clinic once a week. No further debridement recommended Left lower extremity wound culture grows Corynebacterium species. (2) Peripheral vascular disease: 11/14/18 endovenous RFA of L GSV by Dr. Kendrick Continue plavix, asa, statin (3) Hypertension: BP stable Continue amlodipine, metoprolol (4) Dyslipidemia: -continue atorvastatin (5) CKD (chronic kidney disease), stage III: -Creatinine slightly increased to 1.5. Fluctuating. -Monitor BMP - Repeat it during next office appt (6) Psoriatic arthritis: -continue chronic low dose daily prednisone (7) Anemia: -Stable (8) Aortic stenosis: -Currently asymptomatic Hx of Diastolic dysfunction Monitor for s/sx of volume overload (9) Esophageal dysmotility: Slippery, soft bite size diet (10) COPD (chronic obstructive pulmonary disease): No acute exacerbation Continue inhalers (11) Gout: Continue allopurinol (12) DVT prophylaxis: Heparin SQ Disposition Follow up with Dr. Perez on 12/11 @ 10:05 AM Follow up with wound care clinic once a week. Wound care will make arrangements for the same, Home health services with wound care at home MWF. Ambulating by himself Daughter aware about discharge plan Total Time Total Time Spent Total Time Spent (In Minutes): 38 minutes Discharge Plan Discharge Items Patient Disposition: Home - Home Health Services Reason For Visit: B/L LEG WOUNDS Discharge Diagnosis: Bilateral lower extremity wound infection Discharge Goals: Decrease discomfort Activity: Resume your previous activity Non-emergency contact: Primary Care Provider Call non-emergency contact if: your symptoms worsen Follow-up/Referrals: Cameron Perez [Other] - 12/11/18 10:05 am Willi Baum DO [Physician] - (Follow-up appointment within 1 week. We will call you for follow-up appointment date and time.) Diet: Heart Healthy Addtl Provider Instructions: You were admitted to the hospital for left lower extremity wound infection. You were treated with IV antibiotics for 7 days. You received wound care during hospitalization. Medication changes New medicationdoxycycline 100 mg p.o. twice a day, Augmentin 500 mg p.o. twice a day for 7 more days to complete course of 14 days of antibiotics Wound care instructions: Bilateral lower extremitiesirrigate with saline using 35 cc syringe and 18 G blunt needle. Apply Aquacel Ag over open areaS. Cover with 4 x 4's and secure with Kerlix. Apply single layer Tubigrip from base of toes to just below knees. Change dressings every other day and as needed. Tubigrip may be removed/reapplied by RN. Follow up with wound clinic once a week. Monitor BMP (creatinine monitoring) to be done during next office appt. Prescriptions: New doxycycline hyclate 100 mg Capsule 100 mg PO BID 7 Days Qty: 14 RF: 0 amoxicillin-pot clavulanate [Augmentin] 500-125 mg tablet 1 tab PO BID 7 Days Qty: 14 RF: 0 Continued tamsulosin 0.4 mg capsule 0.4 mg PO DAILY RF: 0 Asmanex Twisthaler 220 mcg (120 doses) Aerosol Powdr Breath Activated 2 inh INHALATION BID RF: 0 magnesium oxide 400 mg Capsule 400 mg PO BID RF: 0 Combivent Respimat 20-100 mcg/actuation Mist 1 puff INHALATION QID PRN (Reason: Shortness Of Breath) RF: 0 prednisone 5 mg tablet 5 mg PO DAILY RF: 0 tramadol 50 mg Tablet 50 - 100 mg PO Q6H PRN (Reason: Pain) RF: 0 pantoprazole 40 mg tablet,delayed release (DR/EC) 40 mg PO DAILY RF: 0 ferrous sulfate [iron] 325 mg (65 mg iron) Tablet 325 mg PO DAILY RF: 0 vitamin B complex Capsule 1 cap PO DAILY RF: 0 cholecalciferol (vitamin D3) [Vitamin D3] 2,000 unit Capsule 2,000 unit PO DAILY RF: 0 allopurinol 300 mg tablet 300 mg PO QAM RF: 0 atorvastatin 40 mg tablet 40 mg PO QAM RF: 0 metoprolol succinate 50 mg tablet extended release 24 hr 50 mg PO QAM RF: 0 amlodipine 2.5 mg tablet 2.5 mg PO QAM RF: 0 clopidogrel 75 mg tablet 75 mg PO QAM RF: 0 aspirin 81 mg Tablet,Delayed Release (Dr/Ec) 81 mg PO QAM RF: 0 dutasteride 0.5 mg capsule 0.5 mg PO QAM RF: 0 tolterodine 4 mg capsule,extended release 24hr 4 mg PO DAILY RF: 0 mirabegron 50 mg tablet extended release 24 hr 50 mg PO DAILY RF: 0 gabapentin 300 mg capsule 300 mg PO TID RF: 0 multivitamin Tablet 1 tab PO DAILY RF: 0 Stand-Alone Forms: [facility] Discharge Orders: Discharge Order (Routine); Ordered 12/08/18 Ordered By: Charu Khalil Admission Data Admit Date/Time: 12/01/18 13:12 Attending Provider: Charu Khalil Admit Provider: Dillon Reno Primary Care Provider: Patrick Albarran Other Providers: Willi Baum Service: Medical Other Interventions: Discharge Summary Assessment (RN) Last Done: 12/08/18 15:01 DC Date/Time DO NOT enter until pt leaves facility: 12/08/18 16:41
== END 2018-12-08 16:41 | disposition home health service (06) | DRG 593 ==
LOC: SUATTDRO 13:12 → 3N 13:12
DX: D64.9 Anemia, unspecified; I73.9 Peripheral vascular disease, unspecified; M10.9 Gout, unspecified; J44.9 Chronic obstructive pulmonary disease, unspecified; I13.0 Hypertensive heart and chronic kidney disease with heart failure and stage 1 through stage 4 chronic kidney disease, or unspecified chronic kidney disease; K22.4 Dyskinesia of esophagus; E78.5 Hyperlipidemia, unspecified; N18.3 Chronic kidney disease, stage 3 (moderate); L97.929 Non-pressure chronic ulcer of unspecified part of left lower leg with unspecified severity; I87.2 Venous insufficiency (chronic) (peripheral); I35.0 Nonrheumatic aortic (valve) stenosis; L40.50 Arthropathic psoriasis, unspecified; I50.32 Chronic diastolic (congestive) heart failure

== ENCOUNTER 2019-03-24 13:06 | Inpatient (IN) ==
[2019-03-24] MEDS ORDERED: LEVALBUTEROL HCL 1.25 MG/3 ML NEB NEB STA ×2 (13:21→14:49)
[2019-03-24 13:45] LABS: Basophils # (auto) 0.02 K/uL (0-0.2); Basophils % (auto) 0.1 %; Eosinophils # (auto) 0.03 K/uL (0-0.5); Eosinophils % (auto) 0.1 %; Hematocrit (blood only) 35.8 % (42-52); Hemoglobin 10.9 g/dL (14.0-18.0); Immature Granulocytes # (auto) 0.08 K/uL (0.00-0.02); Immature Granulocytes % (auto) 0.4 %; Lymphocytes # (auto) 0.97 K/uL (1.2-3.4); Lymphocytes % (auto) 4.8 %; Mean Corpuscular Hgb Conc 30.4 g/dL (32-36); Mean Corpuscular Volume 88.8 fL (80-100); Mean Platelet Volume 9.9 fL (7.4-10.4); Monocytes # (auto) 0.78 K/uL (0.11-0.59); Monocytes % (auto) 3.8 %; Neutrophils % (auto) 90.8 %; Platelet Count 143 K/uL (130-400); RDW Coefficient of Variation 16.5 % (11.5-14.5); RDW Standard Deviation 53.5 fL (36.4-46.3); Red Blood Count 4.03 M/uL (4.7-6.1); White Blood Count 20.38 K/uL (4.8-10.8)
[2019-03-24 13:59] LABS: INR 1.1 (0.9-1.1); Partial Thromboplastin Time 26.9 Seconds (21.0-31.0); Prothrombin Time 11.2 Seconds (9.0-12.0)
[2019-03-24 14:04] LABS: Alanine Aminotransferase 19 U/L (12-78); Aspartate Aminotransferase 12 U/L (15-37); BUN Creatinine Ratio 19.3 (10-20); Blood Urea Nitrogen 28 mg/dl (7-18); Calcium 8.1 mg/dl (8.5-10.1); Carbon Dioxide 25 mmol/L (21-32); Chloride 104 mmol/L (98-107); Creatinine Clr Calc Pharmacy 39.9 ml/min; Est GFR (Non-African American) 42.3; Glucose 209 mg/dl (70-99); Potassium 4.6 mmol/L (3.5-5.1); Sodium 136 mmol/L (136-145)
[2019-03-24 14:09] LABS: Albumin Globulin Ratio 0.9 (0.9-2); Alkaline Phosphatase 83 U/L (45-117); Bilirubin,Total 0.8 mg/dl (0.2-1); Creatine Kinase 125 U/L (39-308); Creatine Kinase MB 5.8 ng/ml (0.5-3.6); Globulin 3.3 gm/dl (2.5-4.0); NT Pro B Type Natriuretic Pept 3130 pg/ml (0-1800); Total Protein 6.3 gm/dl (6.4-8.2); Troponin I < 0.015 ng/ml (0-0.045)
[2019-03-24] MEDS ORDERED: LEVOFLOXACIN/D5W 750 MG/150 ML BAG IV STA (14:19)
[2019-03-24] MEDS ORDERED: DAPTOmycin 475 MG in SYRINGE 0 ML IV ONE (14:19)
[2019-03-24] MEDS ORDERED: PIPERACILLIN/TAZOBACTAM 4.5 GM/120 ML BAG IV ONE (14:19)
[2019-03-24] MEDS ORDERED: PIPERACILL/TAZOBAC CONSULT ACTIVE PRN (14:19)
[2019-03-24 14:22] LABS: Base Excess VBG -0.2 mEq/L; pH VBG 7.34 (7.36-7.41)
[2019-03-24 14:22] LABS: Influenza A virus by PCR Neg for Influ A (Neg); Influenza B virus by PCR Neg for Influ B (Neg)
--- NOTE | 2019-03-24 14:28 | XRay Report ---
XR chest 1V portable CLINICAL HISTORY: Sepsis COMPARISON STUDY: 07/15/2018 FINDINGS: The heart is borderline enlarged. There is a retrocardiac opacity likely representing a hia xiao hernia. There are scattered granulomatous calcifications. There are bilateral calcified pleural p laques. There are bilateral lower lobe airspace opacities. The right lower lobe airspace opacity with air bronchograms was present on the preceding study[there is mild central vascular prominence withou t evidence of overt failure. IMPRESSION: 1. Very large hiatal hernia with intrathoracic stomach 2. Scattered calcified granulomas 3. Bilateral calcified pleural plaques 4. Bilateral lower lobe airspace opacities right greater than left. Electronically signed by: Naeem Mckeon M.D. 03/24/2019 2:27 PM
[2019-03-24] MEDS ORDERED: MAGNESIUM SULFATE / D5W 1 GM/100 ML BAG IV ONE (14:48)
[2019-03-24] MEDS ORDERED: FUROSEMIDE 40 MG/4 ML VIAL IV STA (14:48)
--- NOTE | 2019-03-24 16:11 | History & Physical Report ---
Date of Service March 24, 2019 Assessment & Plan (1) Acute and chronic respiratory failure with hypoxia: Presented to ED with cough, shortness of breath, confusion. O2 saturation as low as 83%. Patient was tachypneic. BiPAP use for respiratory support. Prescribed nocturnal O2, but reportedly not compliant. Oxygenation now significantly worse than baseline. Acute hypoxic respiratory failure. Contributing factors include congestive heart failure, possible pneumonia, underlying COPD and are discussed individually below. Continue supplemental oxygen as needed. (2) Chronic diastolic heart failure: History of chronic left ventricular diastolic heart failure. Also has aortic stenosis. Exam, pulmonary infiltrates, elevated proBNP suggest pulmonary edema/CHF. Acute on chronic left ventricular diastolic heart failure. Received IV furosemide in ED with improvement. Check follow-up echocardiogram. Titrate diuretic therapy. Consult Cardiology. (3) Aortic stenosis: IV/ systolic murmur at base. History of aortic stenosis. Echocardiogram performed on 06/03/2018 demonstrated calcified trileaflet aortic valve with moderate aortic stenosis. Patient may have progression of valvular heart disease. Check follow-up echocardiogram. Consult Cardiology. (4) COPD (chronic obstructive pulmonary disease): COPD. On chronic prednisone therapy for either COPD or psoriatic arthritis or both. Recently completed prednisone taper back to his usual maintenance dose of 5 mg daily. Also prescribed nocturnal O2. Exacerbation of COPD, due to either pulmonary edema and / or pneumonia. Continue bronchodilators. Continue prednisone- try not to increased dose of steroids unless necessary. (5) Pneumonia: Patient has nonproductive cough. No fever or chills. Chest x-ray shows bibasilar infiltrates. WBC 20,000. Procalcitonin normal. Overall, seems like worsening respiratory status is due to pulmonary edema. However, it would be prudent to treat for possible pneumonia. IV piperacillin/tazobactam initiated in ED and will be continued. (6) Elevated lactic acid level: Serum lactate 4.1. Repeat 2.8. Procalcitonin normal. Does not appear to be septic. Elevated lactate most likely due to hypoxia from pulmonary edema. (7) Hypertension: Continue metoprolol and amlodipine. (8) CKD (chronic kidney disease), stage III: Serum creatinine 1.47. Follow. (9) Gout: Continue allopurinol. (10) Dyslipidemia: Continue atorvastatin. (11) Leg ulcer, left: Consult Wound Care Nursing. (12) Chronic venous insufficiency: Consult Wound Care Nursing. (13) Urinary incontinence: Chronic urinary urgency incontinence. Monitor for urinary retention. Continue usual medications. (14) DVT prophylaxis: SQ heparin. (15) Discharge planning issues: Anticipated discharge to home. Family Medicine follow-up with Dr. Albarran. History of Present Illness Chief Complaint: Cough, shortness of breath, confusion Primary Care Provider: Patrick Albarran MD 88-year-old male followed by Dr. Albarran for Family Medicine. History of diastolic CHF, aortic stenosis, steroid-dependent COPD, and other problems noted below. Presented to the ED this morning with cough, shortness of breath, confusion. Seen in clinic earlier today and referred to the ED for further evaluation. He has been experiencing nonproductive cough for a while. Recently finished steroid taper and back on usual maintenance prednisone dose. No fever, chills, sweats. No angina or pleuritic chest pain. Chronic dependent edema. Upon arrival to the ED, he was found to be hypoxic. Ventilatory support with BiPAP was initiated. Received IV furosemide with improvement of symptoms. Allergies Allergy/AdvReac Type Severity Reaction Status Date / Time morphine Allergy Unknown "out of it Verified 03/24/19 15:00 for days" colchicine AdvReac Mild GI upset Verified 03/24/19 15:00 [place] [employer] Derivatives AdvReac Unknown STOMACH Verified 03/24/19 15:00 ACHE FROM [employer] [facility] tomato AdvReac Unknown HEADACHE Verified 03/24/19 15:00 FROM [employer]AT[employer] [facility]UICE Home Medications Home Medications Medication Instructions Recorded Confirmed Type allopurinol 300 mg tablet 300 mg PO DAILY #90 tab 01/05/19 03/24/19 History atorvastatin 40 mg tablet 40 mg PO DAILY #90 tab 01/05/19 03/24/19 History clopidogrel 75 mg tablet 75 mg PO DAILY #30 tab 01/05/19 03/24/19 History doxycycline monohydrate 100 mg 100 mg PO BID #60 cap 03/09/19 03/24/19 Rx capsule amlodipine 2.5 mg PO DAILY 03/24/19 03/24/19 History aspirin [Aspir-81] 81 mg PO DAILY 03/24/19 03/24/19 History cholecalciferol (vitamin D3) 2,000 unit PO DAILY 03/24/19 03/24/19 History [Vitamin D3] collagenase clostridium histo. 1 applic TOPICAL DIRECTED PRN 03/24/19 03/24/19 History [Santyl] dutasteride 0.5 mg PO DAILY 03/24/19 03/24/19 History dutasteride [Avodart] 0.5 mg PO DAILY 03/24/19 03/24/19 History ferrous sulfate 325 mg PO DAILY 03/24/19 03/24/19 History gabapentin 300 mg PO TID 03/24/19 03/24/19 History ipratropium-albuterol [Combivent 1 puff INHALATION QID PRN 03/24/19 03/24/19 History Respimat] magnesium oxide 400 mg PO BID 03/24/19 03/24/19 History metoprolol succinate 50 mg PO DAILY 03/24/19 03/24/19 History mirabegron [Myrbetriq] 50 mg PO DAILY 03/24/19 03/24/19 History mometasone [Asmanex Twisthaler] 2 inh INHALATION BID 03/24/19 03/24/19 History multivit with [id number] 1 tab PO DAILY 03/24/19 03/24/19 History [Men's Daily Multivit-Mineral] ondansetron HCl [Zofran] 4 mg PO Q8H PRN 03/24/19 03/24/19 History pantoprazole 40 mg PO DAILY 03/24/19 03/24/19 History prednisone 5 mg PO DAILY 03/24/19 03/24/19 History tamsulosin 0.4 mg PO DAILY 03/24/19 03/24/19 History tolterodine 4 mg PO DAILY 03/24/19 03/24/19 History tramadol 50 - 100 mg PO Q6H PRN 03/24/19 03/24/19 History vitamin B complex [Super B-50 1 cap PO DAILY 03/24/19 03/24/19 History Complex] Past Med/Surg History Medical History Abnormal finding on CT scan (Inactive) MAXI (acute kidney injury) (Inactive) Aortic stenosis (Chronic) "echo 02/2017 - severe " On 03/21/15 18:55 Angela Jaramillo wrote "moderate" BPH (benign prostatic hypertrophy) (Chronic) CKD (chronic kidney disease), stage III (Chronic) COPD (chronic obstructive pulmonary disease) (Chronic) Dyslipidemia (Chronic) Dysphagia (Inactive) Esophageal dysmotility (Chronic) Furuncle (Inactive) Gout (Chronic) H/O atrial flutter (Chronic) "occurred postoperatively in 01/2014, converted to sinus rhythm with IV diltiazem" H/O diastolic dysfunction (Chronic) "grade I per echo 02/2017" On 03/21/15 19:09 Angela Jaramillo wrote "grade I per echo 01/2014" Hiatal hernia (Chronic) History of COPD (Inactive) History of duodenal ulcer (Chronic) History of heart valve insufficiency (Inactive) Hypertension (Chronic) Neuropathy (Chronic) Nocturnal hypoxemia (Chronic) Osteoporosis (Chronic) Peripheral vascular disease (Chronic) s/p angioplasty of right posterior tibial artery Psoriatic arthritis (Chronic) Renal lesion (Chronic) Tobacco abuse (Resolved) Umbilical hernia (Inactive) Urinary incontinence (Chronic) Volvulus of stomach (Chronic) Weight loss (Inactive) Surgical History History of angioplasty of peripheral vessel (Chronic) History of back surgery (Chronic) History of cardiac cath (Chronic) History of lithotripsy (Chronic) Status post endovenous radiofrequency ablation of saphenous vein (Chronic) Family History Mother Colorectal cancer Sister Breast cancer Lung cancer Father Parkinson disease Social History Preferred Language: Qatari Communication Ability: Effective Visual Impairment: Limited Hearing Ability: Normal Insurance Collector Required: No Beliefs That Will Affect Care: None marital status: / Current Living Situation: Family Current Living Situation Comment: son lives with him current occupational status: retired other: walks with walker Feels Safe at Home: Yes Smoking Status: Former smoker Tobacco Type: cigarettes and smokeless tobacco ; Second Hand Exposure: No ; Hx Alcohol Use: No Hx Substance Use: No Review of Systems Constitutional: no fever, no chills and no weight loss Eyes: no diplopia and no worsening vision Ear, Nose, Mouth, Throat: no nasal congestion, no sinus pain/pressure and no sore throat Respiratory: as per Subjective / HPI Cardiovascular: as per Subjective / HPI Gastrointestinal: no nausea, no vomiting, no constipation, no diarrhea/loose stools, no blood in stools and no melena Genitourinary: + urinary hesitancy and + urinary urgency; no dysuria and no hematuria Musculoskeletal: + joint pain Integumentary: no rash and no new lesions Neurologic: no headache(s) Endocrine: no polydipsia and no polyuria Hematologic / Lymphatic: + easy bruising Physical Exam Constitutional: WD/WN, vitals as above + ill appearing Eyes: PERRL, conjunctivae normal, anicteric sclerae ENMT: external ear and nose normal, oropharynx normal Mouth: + edentulous Neck: trachea midline, no thyromegaly Respiratory: + tachypneic Auscultation: + rales and + wheezes Cardiovascular: Rate/Rhythm: regular rate Heart Sounds: + gallop (non appreciated) and + murmur (IV/ systolic murmur at base); no cardiac rub Vessels: + JVD and normal carotid upstroke; + abnormal peripheral pulses (pedal pulses diminished) Extremities: normal capillary refill and + edema (1+ pretibial); no calf tenderness Gastrointestinal (Abdomen): normal bowel sounds, soft, nontender, no hepatosplenomegaly Musculoskeletal: Head/Neck/Chest: neck supple Extremities: strength 5/5 throughout; no cyanosis and no clubbing bilat Unna boots Skin: no rashes, warm and dry Neurologic: PERRL, EOMI no facial palsy no dysarthria or aphasia patellar DTR's 2/2 bilat Psychiatric: Orientation: alert and oriented x 3 Affect: euthymic affect Lymphatic: no cervical lymphadenopathy Results & Data Vital Signs (Past 12 Hours) Vital Signs Temp Pulse Pulse Pulse Resp BP Pulse Ox 03/24/19 15:45 88 27 H 112/83 98 03/24/19 15:30 87 19 114/65 96 03/24/19 15:15 83 26 H 105/57 L 98 03/24/19 15:04 84 84 26 H 99 03/24/19 13:49 91 H 19 99 03/24/19 13:47 91 H 18 99 03/24/19 13:27 93 03/24/19 13:09 36.8 C 98 H 22 110/72 83 L Laboratory Results 03/24/19 13:32 03/24/19 13:32 Serum lactate 4.1. Procalcitonin 0.29. Troponin less than 0.015. proBNP 3130. Diagnostic Findings Chest x-ray reviewed by the undersigned and formally interpreted by Radiology. Cardiomegaly, hiatal hernia, bibasilar infiltrates, scattered calcified granulomas, bilateral calcified pleural plaques. ECG Additional Comments: EKG performed at 1321 reviewed and demonstrated normal sinus rhythm at 99/minute, probable J-point elevation V2, V3, nonspecific T wave abnormality. Code Status & VTE Plan Code Status Patient indicates that he has a living will, but he would like resuscitation attempted in the event of a cardiopulmonary arrest. However, he would not want prolonged extraordinary measures continued if prognosis is poor. VTE Prophylaxis Plan VTE Prophylaxis will be ordered: Yes (1) Leg ulcer, left Non-pressure ulcer stage: unspecified non-pressure ulcer stage Qualified Code(s): L97.929 - Non-pressure chronic ulcer of unspecified part of left lower leg with unspecified severity
--- NOTE | 2019-03-24 16:24 | Critical Care Consultation ---
Date of Consultation March 24, 2019 Assessment & Plan (1) Admitted to intensive care unit: Reason Critically Ill: Jovanni is a 88-year-old male with a past medical history of COPD, psoriatic arthritis, diaphragmatic hernia, nocturnal hypoxemia, hyperlipidemia, aortic stenosis, hypertension, CHF, CKD stage III, urinary incontinence, elevated PSA, chronic lower extremity cellulitis, and osteoporosis who presented with hypoxia and who is been admitted for acute hypoxic respiratory failure. Neuro - [facility] ICU: NEGATIVE Sedation: None Analgesia: None Cardiac - Acute on chronic congestive heart failure Hypoxic to the 80s on admit requiring BiPAP. Admitting VBG pH 7.34/50/45/26 Received Lasix 40 mg IV on admission TTE pending. History of CHF and severe left ear Bedside ultrasound suggestive of type B pulmonary profile, see below Admitting BNP 3130 EKG NSR Lasix as below - Continue Amlodipine 2.5mg PO daily - Continue ASA 81mg daily - Continue Atorvastatin 40mg daily - Continue plaavix 75mg - Continue metoprolol 50mg daily Respiratory - Acute hypoxic respiratory failure 2/2 acute on chronic CHF versus community- acquired pneumonia SPO2 80%, improved on bipap - Titrate O2 to SpO2>88% - Abx tx as below - Lasix as above COPD - Continue Combivent - Duoneb Q4H PRN GI - Heart Healthy diet, low sodium (2g) RENAL/LYTES - MAXI on CKD3 (bl Cr 1-1.1) - Cr elevated to 1.47 - No potassium, sodium derangement - Strict I&O - Lasix 40mg PO BID - Replace lytes as needed. - BMP daily - - Continue mirabegron, dutasteride ENDO - No hx T2DM ICU hyperglycemic protocol HEME - Hx of anemia - Stable H&H. - Hgb 10.9 - No signs of active bleeding - CBC daily ID - Community Acquired Pneumonia - CXR: Bilateral lower lobe airspace opacities right greater than left. - Leukocytosis to 20 LS - Recieved Zosyn, Dapto, Levaquin in ED - Continue Zosyn - BC cultures pending - Monitor fever curve. - MRSA culture pending INTEGUMENTARY - Chronic Cellulitis of Lower extremities vs Venous Stasis - No tenderness, excess warmth on exam - Hold FELT CHECKER doxycycline LINES/IV ACCESS - PIVs intact. DVT PROPHYLAXIS - Heparin 5000u SQ TID Thank you for allowing us to be part of this patient's care. Please refer to Dr. Sweeney's documentation for any further recommendations. (2) Hypoxia: (3) PAD (peripheral artery disease): (4) Stage II pressure ulcer of ankle: (5) Anemia: (6) History of angioplasty of peripheral vessel: (7) History of cardiac cath: (8) Status post endovenous radiofrequency ablation of saphenous vein: (9) Chronic venous insufficiency: (10) Venous stasis ulcer: (11) Ambulatory dysfunction: (12) DVT prophylaxis: (13) Pneumonia: (14) Esophageal dysmotility: (15) Urinary incontinence: (16) H/O diastolic dysfunction: (17) BPH (benign prostatic hypertrophy): (18) Aortic stenosis: (19) Dyslipidemia: (20) Psoriatic arthritis: (21) CKD (chronic kidney disease), stage III: (22) COPD (chronic obstructive pulmonary disease): (23) Hypertension: Supervising Physician Co-Signing Physician Notes Dr. Delarosa was resident physician during care of patient. I separately evaluated patient for rudd portions of the history and the exam. I was present during the critical portion of medical decision making, and I discussed the case with the resident. I generally agree with the findings and plan. I performed a limited bedside ultrasound, I believe the patient's problem largely resolves around volume overload from chronic congestive heart failure and diastolic dysfunction in addition to recently placed wound dressings functionally acting his Unna boots which have decreased his lower extremity peripheral edema. I doubt there is a pneumonic process as both the patient's hemodynamics and oxygenation have improved with Lasix and noninvasive positive pressure ventilation. There still may be aspects of an infectious etiology as it appears the patient had his wounds were recently debrided so coverage for possible skin and soft tissue infection would be appropriate. Patient was critically ill due to hypoxic respiratory failure and acute on chronic congestive heart failure with associated hypotension which responded to noninvasive mechanical ventilation and diuresis. I have personally spent 40 minutes of critical care time in the direct management of this patient. This is a life/limb threatening event. This includes time spent evaluating patient, direct bedside care, chart review, placing orders, interpretation of diagnostic studies, discussion with consultants, patient, and/or family members regarding treatment decisions, as well as other required patient management activities. This time is exclusive of all separately billable procedures, and teaching time and separate from and in addition to any other critical care service time. History of Present Illness History of Present Illness Jovanni is a 88-year-old male with a past medical history of COPD, psoriatic arthritis, diaphragmatic hernia, nocturnal hypoxemia, hyperlipidemia, aortic stenosis, hypertension, CHF, CKD stage III, urinary incontinence, elevated PSA, chronic lower extremity cellulitis, and osteoporosis who presented to the hospital after he was seen by outpatient provider Dr. Jeffers for cough and shortness of breath and was recommended to proceed to the emergency department. Fernando reports he has had a cough which started this morning, but denies shortness of breath (although breathing through the BiPAP is "a pain in the ass "). He has not had any fever, chills, sweats, chest pain, or decreased exercise tolerance although he notes that he has aortic stenosis which occasionally makes him feel fatigued with exertion. Per chart review echo 02/2017 showed severe left ear which had progressed from moderate in 02/2015. He had compression stockings placed on his legs for swelling approximately 1 day ago. He has not had any nausea, vomiting, diarrhea, constipation, or abdominal pain. Denies new rashes or skin changes. Endorses chronic cellulitis/swelling in his legs. He reports that he has been taking doxycycline 100 mg chronically for cellulitis in his legs, and was put on a prednisone taper 2 weeks ago for his breathing and that he is still on 5 mg of prednisone FELT CHECKER. On admission to the emergency department he was hypoxic to the 80s with a VBG 7.3 4/50/45/26 and lactate of 4.1. He had an elevated BNP of 3130, CK-MB 5.8, negative influenza testing, and a chest x-ray which showed pulmonary congestion and right greater than left sided opacities. He has a leukocytosis to 20, he moglobin was 10.1. In the emergency department he received 40 mg of Lasix IV, 1 g of magnesium, Xopenex neb x1, and empiric levofloxacin, Zosyn, and daptomycin. Bedside ultrasound showed B-lines in all 4 quadrants by Corbin protocol, no a lines. Scattered consolidations with large lung volume seen on ultrasound. Past medical history: Reviewed. History of PAD, CAD, venous stasis, COPD, CKD 3, HLD, neuropathy, osteoporosis, tobacco abuse, aortic stenosis, cellulitis. Medications: Home medications reviewed, EMR updated Surgical history: Lithotripsy, cardiac catheterization, saphenous CARRION, right posterior tibial angioplasty Social history: Denies alcohol use. Denies current tobacco use, endorses former tobacco use. Denies substance use. Lives in [place], reports he has a son and daughter which help take care of him and a granddaughter who works with [employer]. CODE STATUS: Full code Allergies Allergy/AdvReac Type Severity Reaction Status Date / Time morphine Allergy Unknown "out of it Verified 03/24/19 15:00 for days" colchicine AdvReac Mild GI upset Verified 03/24/19 15:00 [facility] AdvReac Unknown STOMACH Verified 03/24/19 15:00 ACHE FROM [facility] tomato AdvReac Unknown HEADACHE Verified 03/24/19 15:00 FROM [facility] Home Medications Home Medications Medication Instructions Recorded Confirmed Type allopurinol 300 mg tablet 300 mg PO DAILY #90 tab 01/05/19 03/24/19 History atorvastatin 40 mg tablet 40 mg PO DAILY #90 tab 01/05/19 03/24/19 History clopidogrel 75 mg tablet 75 mg PO DAILY #30 tab 01/05/19 03/24/19 History doxycycline monohydrate 100 mg 100 mg PO BID #60 cap 03/09/19 03/24/19 Rx capsule amlodipine 2.5 mg PO DAILY 03/24/19 03/24/19 History aspirin [Aspir-81] 81 mg PO DAILY 03/24/19 03/24/19 History cholecalciferol (vitamin D3) 2,000 unit PO DAILY 03/24/19 03/24/19 History [Vitamin D3] collagenase clostridium histo. 1 applic TOPICAL DIRECTED PRN 03/24/19 03/24/19 History [Santyl] dutasteride 0.5 mg PO DAILY 03/24/19 03/24/19 History dutasteride [Avodart] 0.5 mg PO DAILY 03/24/19 03/24/19 History ferrous sulfate 325 mg PO DAILY 03/24/19 03/24/19 History gabapentin 300 mg PO TID 03/24/19 03/24/19 History ipratropium-albuterol [Combivent 1 puff INHALATION QID PRN 03/24/19 03/24/19 History Respimat] magnesium oxide 400 mg PO BID 03/24/19 03/24/19 History metoprolol succinate 50 mg PO DAILY 03/24/19 03/24/19 History mirabegron [Myrbetriq] 50 mg PO DAILY 03/24/19 03/24/19 History mometasone [Asmanex Twisthaler] 2 inh INHALATION BID 03/24/19 03/24/19 History multivit with cag-HV-nganijfd 1 tab PO DAILY 03/24/19 03/24/19 History [Men's Daily Multivit-Mineral] ondansetron HCl [Zofran] 4 mg PO Q8H PRN 03/24/19 03/24/19 History pantoprazole 40 mg PO DAILY 03/24/19 03/24/19 History prednisone 5 mg PO DAILY 03/24/19 03/24/19 History tamsulosin 0.4 mg PO DAILY 03/24/19 03/24/19 History tolterodine 4 mg PO DAILY 03/24/19 03/24/19 History tramadol 50 - 100 mg PO Q6H PRN 03/24/19 03/24/19 History vitamin B complex [Super B-50 1 cap PO DAILY 03/24/19 03/24/19 History Complex] Patient History Medical History (Updated 03/25/19 @ 04:09 by Micah Rivas MD) Abnormal finding on CT scan (Inactive) MAXI (acute kidney injury) (Inactive) Aortic stenosis (Chronic) "echo 02/2017 - severe " On 03/21/15 18:55 Angela Jaramillo wrote "moderate" BPH (benign prostatic hypertrophy) (Chronic) Chronic diastolic heart failure CKD (chronic kidney disease), stage III (Chronic) COPD (chronic obstructive pulmonary disease) (Chronic) Dyslipidemia (Chronic) Dysphagia (Inactive) Esophageal dysmotility (Chronic) Furuncle (Inactive) Gout (Chronic) H/O atrial flutter (Chronic) "occurred postoperatively in 01/2014, converted to sinus rhythm with IV diltiazem" H/O diastolic dysfunction (Chronic) "grade I per echo 02/2017" On 03/21/15 19:09 Angela Jaramillo wrote "grade I per echo 01/2014" Hiatal hernia (Chronic) History of COPD (Inactive) History of duodenal ulcer (Chronic) History of heart valve insufficiency (Inactive) Hypertension (Chronic) Neuropathy (Chronic) Nocturnal hypoxemia (Chronic) Osteoporosis (Chronic) Peripheral vascular disease (Chronic) s/p angioplasty of right posterior tibial artery Psoriatic arthritis (Chronic) Renal lesion (Chronic) Tobacco abuse (Resolved) Umbilical hernia (Inactive) Urinary incontinence (Chronic) Volvulus of stomach (Chronic) Weight loss (Inactive) Surgical History History of angioplasty of peripheral vessel (Chronic) History of back surgery (Chronic) History of cardiac cath (Chronic) History of lithotripsy (Chronic) Status post endovenous radiofrequency ablation of saphenous vein (Chronic) Family History Mother Colorectal cancer Sister Breast cancer Lung cancer Father Parkinson disease Social History Preferred Language: Portuguese Communication Ability: Effective Visual Impairment: Limited Hearing Ability: Normal Director Consumer Required: No Beliefs That Will Affect Care: None marital status: / Current Living Situation: Family Current Living Situation Comment: son lives with him current occupational status: retired other: walks with walker Feels Safe at Home: Yes Smoking Status: Former smoker Tobacco Type: cigarettes and smokeless tobacco ; Second Hand Exposure: No ; Hx Alcohol Use: No Hx Substance Use: No Review of Systems Review of Systems: All systems reviewed & are unremarkable except as noted in HPI & below Physical Exam Physical Exam: General: A&Ox3. NAD. Cooperative. On BiPAP. HEENT: Atraumatic, normocephalic. Tongue protrudes midline. Mucous membranes ta cky. Posterior pharynx without erythema, exudate. Uvula midline. Neck supple. Pulm: CTAB A&P. -wheezes, -rales, -rhonchi. Symmetrical chest rise. No increase work of breathing. No respiratory distress. Cardiac: RRR, v/vi Systolic murmur best heard at RUSB. Radial pulses intact and symmetrical. JVD is present. Abdominal: Nontender, softly distended. Nontender, reducible umbilical hernia present. BS present. Extremities: Moving all extremities equally. Second digit status post amputation bilaterally. Sensation is soft touch in foot and fingertips intact bilaterally and symmetrical. Surgery Teacher strength, ankle plantar flexion/dorsiflexion, hip flexion, knee flexion/extension, elbow flexion/extension intact with full strength bilaterally. Stage II ulcer overlying left Achilles. Neurologic: CN II: Visual laguna are full to confrontation. Pupils are equal and react to light and accomidation. Visual acuity grossly intact. CN III, IV, : At primary gaze, there is no eye deviation. EoM intact without nystagmus. No visual field cuts. CN V: Facial sensation is intact to soft touch in all 3 divisions bilaterally. CN VII: No facial asymmetry, full strength to eyebrow raise, smile, eye close, and cheek puff. CN VII: Hearing is grossly intact. CN IX, X: Palate elevates symmetrically. Phonation is normal without dysarthria. CN XI: Shoulder shrug intact CN XII: Tongue protrudes midline. Results & Data Vital Signs (Past 12 Hours) Vital Signs Temp Pulse Pulse Pulse Resp BP Pulse Ox 03/24/19 15:45 88 27 H 112/83 98 03/24/19 15:30 87 19 114/65 96 03/24/19 15:15 83 26 H 105/57 L 98 03/24/19 15:04 84 84 26 H 99 03/24/19 13:49 91 H 19 99 03/24/19 13:47 91 H 18 99 03/24/19 13:27 93 03/24/19 13:09 36.8 C 98 H 22 110/72 83 L Resident Activity Tracking Resident Involvement: Resident Care Provided Care Provided: Adult Hospital Medicine (1) Venous stasis ulcer Laterality: left Non-pressure ulcer stage: with fat layer exposed Varicose vein presence: with varicose veins Venous stasis ulcer site: ankle Qualified Code(s): I83.023 - Varicose veins of left lower extremity with ulcer of ankle; L97.322 - Non-pressure chronic ulcer of left ankle with fat layer exposed
[2019-03-24 17:31] LABS: Appearance Urine Clear (Clear); Bacteria Urine Automated Negative (Negative); Bilirubin Urine Negative (Negative); Blood Urine 1+ (Negative); Color Urine Yellow; Epithelial Cell Urine Auto >30 /lpf (0-5); Glucose Urine UA Negative (Negative); Ketones Urine Negative (Negative); Leukocyte Esterase Urine Negative (Negative); Nitrite Urine Negative (Negative); Protein Urine Negative (Negative); Specific Gravity Urine 1.013 (1.000-1.030); Urobilinogen Urine Negative (Negative)
[2019-03-24] MEDS ORDERED: ICU PROTOCOL FOR HYPERGLYCEMIA PRN (18:40)
--- NOTE | 2019-03-24 19:32 | Emergency Department Note ---
Entered by Marah Mckeon acting as a scribe for History of Present Illness General Chief complaint: Cough Stated complaint: COUGH, LOW 02 STATS,CONFUSION Time Seen by Provider: 03/24/19 13:15 Source: patient and family History of Present Illness Onset (ago): day(s) (today) Location: chest Pain Consistency: + other (worsening) Quality: + other (cough) Associated symptoms: + shortness of breath; no chest pain The patient is an 88 year old male who presents to the Emergency Room with complaints of a worsening cough starting today. The patient states that he has been having this cough that has made him short of breath. He states that he went to Dr. Ferraro office today for his symptoms and they sent him here as he had diffuse crackles on his exam and an O2 saturation of 89% on room air. The patients daughter notes that the patient is supposed to be on oxygen at home, but never wears it because he moves and messes it up when he sleeps. The patient denies being on any blood thinners and chest pain. Home Medications Home Medications Medication Instructions Recorded Confirmed Type allopurinol 300 mg tablet 300 mg PO DAILY #90 tab 01/05/19 03/24/19 History atorvastatin 40 mg tablet 40 mg PO DAILY #90 tab 01/05/19 03/24/19 History clopidogrel 75 mg tablet 75 mg PO DAILY #30 tab 01/05/19 03/24/19 History doxycycline monohydrate 100 mg 100 mg PO BID #60 cap 03/09/19 03/24/19 Rx capsule amlodipine 2.5 mg PO DAILY 03/24/19 03/24/19 History aspirin [Aspir-81] 81 mg PO DAILY 03/24/19 03/24/19 History cholecalciferol (vitamin D3) 2,000 unit PO DAILY 03/24/19 03/24/19 History [Vitamin D3] collagenase clostridium histo. 1 applic TOPICAL DIRECTED PRN 03/24/19 03/24/19 History [Santyl] dutasteride 0.5 mg PO DAILY 03/24/19 03/24/19 History dutasteride [Avodart] 0.5 mg PO DAILY 03/24/19 03/24/19 History ferrous sulfate 325 mg PO DAILY 03/24/19 03/24/19 History gabapentin 300 mg PO TID 03/24/19 03/24/19 History ipratropium-albuterol [Combivent 1 puff INHALATION QID PRN 03/24/19 03/24/19 History Respimat] magnesium oxide 400 mg PO BID 03/24/19 03/24/19 History metoprolol succinate 50 mg PO DAILY 03/24/19 03/24/19 History mirabegron [Myrbetriq] 50 mg PO DAILY 03/24/19 03/24/19 History mometasone [Asmanex Twisthaler] 2 inh INHALATION BID 03/24/19 03/24/19 History multivit with ofm-WV-taetdtgs 1 tab PO DAILY 03/24/19 03/24/19 History [Men's Daily Multivit-Mineral] ondansetron HCl [Zofran] 4 mg PO Q8H PRN 03/24/19 03/24/19 History pantoprazole 40 mg PO DAILY 03/24/19 03/24/19 History prednisone 5 mg PO DAILY 03/24/19 03/24/19 History tamsulosin 0.4 mg PO DAILY 03/24/19 03/24/19 History tolterodine 4 mg PO DAILY 03/24/19 03/24/19 History tramadol 50 - 100 mg PO Q6H PRN 03/24/19 03/24/19 History vitamin B complex [Super B-50 1 cap PO DAILY 03/24/19 03/24/19 History Complex] Allergies Allergy/AdvReac Type Severity Reaction Status Date / Time morphine Allergy Unknown "out of it Verified 03/24/19 15:00 for days" colchicine AdvReac Mild GI upset Verified 03/24/19 15:00 [place] And Derivatives AdvReac Unknown STOMACH Verified 03/24/19 15:00 ACHE FROM [facility] tomato AdvReac Unknown HEADACHE Verified 03/24/19 15:00 FROM [place] [facility] Past Med/Surg History Medical History (Updated 03/25/19 @ 04:09 by Micah Rivas MD) Abnormal finding on CT scan (Inactive) MAXI (acute kidney injury) (Inactive) Aortic stenosis (Chronic) "echo 02/2017 - severe " On 03/21/15 18:55 Angela Jaramillo wrote "moderate" BPH (benign prostatic hypertrophy) (Chronic) Chronic diastolic heart failure CKD (chronic kidney disease), stage III (Chronic) COPD (chronic obstructive pulmonary disease) (Chronic) Dyslipidemia (Chronic) Dysphagia (Inactive) Esophageal dysmotility (Chronic) Furuncle (Inactive) Gout (Chronic) H/O atrial flutter (Chronic) "occurred postoperatively in 01/2014, converted to sinus rhythm with IV diltiazem" H/O diastolic dysfunction (Chronic) "grade I per echo 02/2017" On 03/21/15 19:09 Angela Jaramillo wrote "grade I per echo 01/2014" Hiatal hernia (Chronic) History of COPD (Inactive) History of duodenal ulcer (Chronic) History of heart valve insufficiency (Inactive) Hypertension (Chronic) Neuropathy (Chronic) Nocturnal hypoxemia (Chronic) Osteoporosis (Chronic) Peripheral vascular disease (Chronic) s/p angioplasty of right posterior tibial artery Psoriatic arthritis (Chronic) Renal lesion (Chronic) Tobacco abuse (Resolved) Umbilical hernia (Inactive) Urinary incontinence (Chronic) Volvulus of stomach (Chronic) Weight loss (Inactive) Surgical History History of angioplasty of peripheral vessel (Chronic) History of back surgery (Chronic) History of cardiac cath (Chronic) History of lithotripsy (Chronic) Status post endovenous radiofrequency ablation of saphenous vein (Chronic) Family History Mother Colorectal cancer Sister Breast cancer Lung cancer Father Parkinson disease Social History Preferred Language: Amharic Communication Ability: Effective Visual Impairment: Limited Hearing Ability: Normal Cytology Teacher Required: No Beliefs That Will Affect Care: None marital status: / Current Living Situation: Family Current Living Situation Comment: son lives with him current occupational status: retired other: walks with walker Feels Safe at Home: Yes Smoking Status: Former smoker Tobacco Type: cigarettes and smokeless tobacco ; Second Hand Exposure: No ; Hx Alcohol Use: No Hx Substance Use: No Review of Systems See HPI for pertinent positives & negatives. and A total of 10 systems reviewed and were otherwise negative Physical Exam Vital Signs Vital Signs - 24 hr 03/24/19 13:09 03/24/19 13:27 03/24/19 13:47 Temperature 36.8 C Temperature Source Oral Pulse Rate 98 H 91 H Pulse Rate [Right Finger] Pulse Rate [Right Radial] Pulse Rate from SpO2 Sensor Respiratory Rate 22 18 Respiratory Effort / Characteristics Spontaneous Non-Labored Respiratory Pattern Blood Pressure 110/72 Blood Pressure Mean 84 Pulse Oximetry 83 L 93 99 Oxygen Delivery Method Room Air Nasal Cannula Oxygen Flow Rate 6 Fraction of Inspired Oxygen 35 Sepsis Recent Fever Within 48 Hours No Sepsis New/Unexplained Change in Mental Status No Sepsis Action Taken by Nursing No Action Required 03/24/19 13:49 03/24/19 15:04 03/24/19 15:15 Temperature Temperature Source Pulse Rate 84 83 Pulse Rate [Right Finger] 84 Pulse Rate [Right Radial] 91 H Pulse Rate from SpO2 Sensor 83 Respiratory Rate 19 26 H 26 H Respiratory Effort / Characteristics Non-Labored Spontaneous Spontaneous Respiratory Pattern Tachypnea Blood Pressure 105/57 L Blood Pressure Mean 70 Pulse Oximetry 99 99 98 Oxygen Delivery Method BiPAP BiPAP BiPAP Oxygen Flow Rate Fraction of Inspired Oxygen 35 30 Sepsis Recent Fever Within 48 Hours Sepsis New/Unexplained Change in Mental Status Sepsis Action Taken by Nursing 03/24/19 15:30 Temperature Temperature Source Pulse Rate 87 Pulse Rate [Right Finger] Pulse Rate [Right Radial] Pulse Rate from SpO2 Sensor 86 Respiratory Rate 19 Respiratory Effort / Characteristics Respiratory Pattern Blood Pressure 114/65 Blood Pressure Mean 82 Pulse Oximetry 96 Oxygen Delivery Method BiPAP Oxygen Flow Rate Fraction of Inspired Oxygen Sepsis Recent Fever Within 48 Hours Sepsis New/Unexplained Change in Mental Status Sepsis Action Taken by Nursing GENERAL: Awake, alert, in moderate distress HENT: Normocephalic, atraumatic. Oropharynx unremarkable. EYES: Normal conjunctiva. Sclera non-icteric. NECK: Supple. No nuchal rigidity. FROM. No JVD. RESPIRATORY: Diffuse crackles present. Increased work of breathing. CARDIAC: Regular rate, normal rhythm. Extremities warm and well perfused. Pulses equal. ABDOMEN: Soft, non-distended. No tenderness to palpation. No rebound or guarding. No masses. RECTAL: Deferred. MUSCULOSKELETAL: Chest examination reveals no tenderness. The back is symmetrical on inspection without obvious abnormality. There is no CVA tenderness to palpation. No joint edema. LOWER EXTREMITIES: Calves are equal size bilaterally and non-tender. No edema. No discoloration. NEURO: Normal sensorium. No sensory or motor deficits noted. SKIN: No rash or jaundice noted. Course Course 1317: The patient was evaluated in room A9B. A complete history and physical exam was performed. 1319: I paged respiratory therapy at this time. 1450: I reevaluated the patient and updated him and his family on his test results. I discussed the treatment plan with him. He verbally agrees and understands. 1456: I discussed the patient's case with Dorothy Bishop PA-C -[facility] Hospital[facility]. She will evaluate the patient for further management. Administered Medications Albuterol (Combivent Respimat) 1 puffs INH QID PRN PRN Reason: Shortness Of Breath Or Wheezing Stop: 04/23/19 18:42 Last Admin: 03/26/19 08:04 Dose: 1 puffs Documented by: [id number] Admin: 03/25/19 09:00 Dose: 1 puffs Documented by: [id number] Allopurinol (Zyloprim) 300 mg PO DAILY [facility] Stop: 04/24/19 08:59 Last Admin: 03/26/19 08:02 Dose: 300 mg Documented by: [id number] Admin: 03/25/19 09:02 Dose: 300 mg Documented by: [id number] Amlodipine Besylate (Norvasc) 2.5 mg PO DAILY [facility] Stop: 04/24/19 08:59 Last Admin: 03/26/19 08:03 Dose: 2.5 mg Documented by: [id number] Admin: 03/25/19 09:02 Dose: 2.5 mg Documented by: [id number] Aspirin (Ecotrin Ectab) 81 mg PO DAILY [facility] Stop: 04/24/19 08:59 Last Admin: 03/26/19 08:01 Dose: 81 mg Documented by: [id number] Admin: 03/25/19 09:03 Dose: 81 mg Documented by: [id number] Atorvastatin Calcium (Lipitor) 40 mg PO DAILY [facility] Stop: 04/24/19 08:59 Last Admin: 03/26/19 08:03 Dose: 40 mg Documented by: [id number] Admin: 03/25/19 09:03 Dose: 40 mg Documented by: [id number] Clopidogrel Bisulfate (Plavix) 75 mg PO DAILY [facility] Stop: 04/24/19 08:59 Last Admin: 03/26/19 08:03 Dose: 75 mg Documented by: [id number] Admin: 03/25/19 09:03 Dose: 75 mg Documented by: [id number] Doxycycline Hyclate (Vibramycin) 100 mg PO BID [facility] Stop: 04/24/19 08:59 Last Admin: 03/26/19 20:48 Dose: 100 mg Documented by: [id number] Admin: 03/26/19 09:42 Dose: 100 mg Documented by: [id number] Admin: 03/25/19 20:35 Dose: 100 mg Documented by: [id number] Admin: 03/25/19 09:04 Dose: 100 mg Documented by: [id number] Ferrous Sulfate (Feosol) 325 mg PO DAILY@1200 [facility] Stop: 04/24/19 08:59 Last Admin: 03/26/19 11:11 Dose: 325 mg Documented by: [id number] Admin: 03/25/19 09:03 Dose: 325 mg Documented by: [id number] Furosemide (Lasix) 20 mg PO BID17 [facility] Stop: 04/24/19 08:59 Last Admin: 03/26/19 17:44 Dose: 20 mg Documented by: [id number] Cosigned by: [id number] Admin: 03/26/19 08:04 Dose: 20 mg Documented by: [id number] Admin: 03/25/19 17:02 Dose: 20 mg Documented by: [id number] Admin: 03/25/19 09:02 Dose: 20 mg Documented by: [id number] Gabapentin (Neurontin) 300 mg PO TID [facility] Stop: 04/23/19 20:59 Last Admin: 03/26/19 20:49 Dose: 300 mg Documented by: [id number] Admin: 03/26/19 13:59 Dose: 300 mg Documented by: [id number] Cosigned by: [id number] Admin: 03/26/19 08:02 Dose: 300 mg Documented by: [id number] Admin: 03/25/19 20:36 Dose: 300 mg Documented by: [id number] Admin: 03/25/19 14:53 Dose: 300 mg Documented by: [id number] Admin: 03/25/19 09:03 Dose: 300 mg Documented by: [id number] Admin: 03/24/19 19:58 Dose: 300 mg Documented by: [id number] Magnesium Oxide (Mag-Ox) 400 mg PO BID@1200,1800 [facility] Stop: 04/23/19 20:59 Last Admin: 03/26/19 17:45 Dose: 400 mg Documented by: [id number] Cosigned by: [id number] Admin: 03/26/19 11:10 Dose: 400 mg Documented by: [id number] Admin: 03/25/19 17:02 Dose: 400 mg Documented by: [id number] Admin: 03/25/19 12:00 Dose: 400 mg Documented by: [id number] Metoprolol Succinate (Toprol Xl) 50 mg PO DAILY [facility] Stop: 04/24/19 08:59 Last Admin: 03/26/19 08:02 Dose: 50 mg Documented by: [id number] Admin: 03/25/19 09:04 Dose: 50 mg Documented by: [id number] Mirabegron (Myrbetriq Er) 50 mg PO DAILY [facility] Stop: 04/24/19 08:59 Last Admin: 03/26/19 08:03 Dose: 50 mg Documented by: [id number] Admin: 03/25/19 09:04 Dose: 50 mg Documented by: [id number] Miscellaneous (Order Awaiting Action) 1 ea N/A QS [facility] Stop: 04/24/19 00:00 Last Admin: 03/26/19 23:19 Dose: Not Given Documented by: [id number] Admin: 03/26/19 15:56 Dose: Not Given Documented by: [id number] Admin: 03/26/19 08:05 Dose: Not Given Documented by: [id number] Admin: 03/26/19 00:32 Dose: Not Given Documented by: [id number] Admin: 03/25/19 17:01 Dose: Not Given Documented by: [id number] Admin: 03/25/19 09:01 Dose: Not Given Documented by: [id number] Admin: 03/25/19 00:55 Dose: Not Given Documented by: [id number] Mometasone Furoate (Asmanex 220mcg) 1 puffs INH BID [facility] Stop: 04/23/19 20:59 Last Admin: 03/26/19 20:48 Dose: 1 puffs Documented by: [id number] Admin: 03/26/19 08:04 Dose: 1 puffs Documented by: [id number] Admin: 03/25/19 20:34 Dose: 1 puffs Documented by: [id number] Admin: 03/25/19 09:00 Dose: 1 puffs Documented by: [id number] Admin: 03/24/19 19:55 Dose: 2 puffs Documented by: [id number] Pantoprazole Sodium (Protonix) 40 mg PO DAILY [facility] Stop: 04/24/19 08:59 Last Admin: 03/26/19 08:02 Dose: 40 mg Documented by: [id number] Admin: 03/25/19 09:03 Dose: 40 mg Documented by: [id number] Prednisone (Prednisone) 5 mg PO DAILY [facility] Stop: 04/24/19 08:59 Last Admin: 03/26/19 08:02 Dose: 5 mg Documented by: [id number] Admin: 03/25/19 09:04 Dose: 5 mg Documented by: [id number] Tamsulosin HCl (Flomax) 0.4 mg PO DAILY [facility] Stop: 04/24/19 08:59 Last Admin: 03/26/19 08:01 Dose: 0.4 mg Documented by: [id number] Admin: 03/25/19 09:04 Dose: 0.4 mg Documented by: [id number] Tolterodine Tartrate (Detrol La) 4 mg PO DAILY [facility] Stop: 04/24/19 08:59 Last Admin: 03/26/19 08:04 Dose: 4 mg Documented by: [id number] Admin: 03/25/19 09:04 Dose: 4 mg Documented by: [id number] Tramadol HCl (Ultram) 50 mg PO Q8H [facility] Stop: 04/23/19 21:59 Last Admin: 03/26/19 22:00 Dose: 50 mg Documented by: [id number] Admin: 03/26/19 14:00 Dose: 50 mg Documented by: [id number] Cosigned by: [id number] Admin: 03/26/19 05:34 Dose: 50 mg Documented by: [id number] Admin: 03/25/19 21:23 Dose: 50 mg Documented by: [id number] Admin: 03/25/19 14:53 Dose: 50 mg Documented by: [id number] Admin: 03/25/19 04:59 Dose: 50 mg Documented by: [id number] Admin: 03/24/19 22:30 Dose: 50 mg Documented by: [id number] Vitamin D (Vitamin D3) 2,000 units PO DAILY [facility] Stop: 04/24/19 08:59 Last Admin: 03/26/19 08:03 Dose: 2,000 units Documented by: [id number] Admin: 03/25/19 09:04 Dose: 2,000 units Documented by: [id number] Discontinued Medications Furosemide (Lasix) 40 mg IV NOW STA Stop: 03/24/19 14:49 Last Admin: 03/24/19 15:46 Dose: 40 mg Documented by: [id number] Heparin Sodium (Porcine) (Heparin Sodium (Porcine)) 5,000 units SQ Q8 [facility] Stop: 04/23/19 21:59 Last Admin: 03/26/19 13:58 Dose: 5,000 units Documented by: [id number] Cosigned by: [id number] Admin: 03/26/19 05:39 Dose: 5,000 units Documented by: [id number] Cosigned by: [id number] Admin: 03/25/19 20:37 Dose: 5,000 units Documented by: [id number] Cosigned by: [id number] Admin: 03/25/19 14:54 Dose: 5,000 units Documented by: [id number] Cosigned by: [id number] Admin: 03/25/19 04:57 Dose: 5,000 units Documented by: [id number] Cosigned by: [id number] Admin: 03/24/19 22:31 Dose: 5,000 units Documented by: [id number] Cosigned by: [id number] Piperacillin Sod/Tazobactam Sod (Zosyn) 4.5 gm in 120 mls @ 240 mls/hr IV NOW ONE Stop: 03/24/19 14:48 Last Infusion: 03/24/19 15:19 Dose: 0 mls/hr Documented by: [id number] Admin: 03/24/19 14:36 Dose: 240 mls/hr Documented by: [id number] Levofloxacin/Dextrose (Levaquin/D5w) 750 mg in 150 mls @ 100 mls/hr IV NOW STA Stop: 03/24/19 15:48 Last Infusion: 03/24/19 17:23 Dose: 0 mls/hr Documented by: [id number] Admin: 03/24/19 15:46 Dose: 100 mls/hr Documented by: [id number] Daptomycin 475 mg/ Syringe 9.5 mls @ 4.75 mls/min IV NOW ONE; Protocol Stop: 03/24/19 14:20 Last Admin: 03/24/19 15:45 Dose: 4.75 mls/min Documented by: [id number] Magnesium Sulfate/Dextrose (Magnesium Sulfate / D5w) 1 gm in 100 mls @ 100 mls/hr IV ONE ONE Stop: 03/24/19 15:47 Last Infusion: 03/24/19 16:57 Dose: 0 mls/hr Documented by: [id number] Admin: 03/24/19 15:46 Dose: 100 mls/hr Documented by: [id number] Piperacillin Sod/Tazobactam (Sod 4.5 gm/ Dextrose) 120 mls @ 30 mls/hr IV Q8H [facility]; Protocol Stop: 03/31/19 19:59 Last Infusion: 03/26/19 00:34 Dose: 0 mls/hr Documented by: [id number] Admin: 03/25/19 20:33 Dose: 30 mls/hr Documented by: [id number] Infusion: 03/25/19 17:02 Dose: 0 mls/hr Documented by: [id number] Admin: 03/25/19 12:25 Dose: 30 mls/hr Documented by: [id number] Infusion: 03/25/19 09:00 Dose: 0 mls/hr Documented by: [id number] Admin: 03/25/19 04:57 Dose: 30 mls/hr Documented by: [id number] Infusion: 03/25/19 00:54 Dose: 0 mls/hr Documented by: [id number] Admin: 03/24/19 19:50 Dose: 30 mls/hr Documented by: [id number] Levalbuterol HCl (Xopenex 1.25mg/3ml Neb) 1.25 mg NEB NOW STA Stop: 03/24/19 13:22 Last Admin: 03/24/19 13:45 Dose: 1.25 mg Documented by: [id number] Levalbuterol HCl (Xopenex 1.25mg/3ml Neb) 1.25 mg NEB NOW STA Stop: 03/24/19 14:50 Last Admin: 03/24/19 15:04 Dose: 1.25 mg Documented by: [id number] Magnesium Oxide (Mag-Ox) 400 mg PO BID [facility] Stop: 04/23/19 20:59 Last Admin: 03/24/19 19:57 Dose: 400 mg Documented by: [id number] Potassium Chloride (Klor-Con M20) 20 meq PO ONE ONE Stop: 03/26/19 11:01 Last Admin: 03/26/19 11:10 Dose: 20 meq Documented by: [id number] Critical Care Time I have personally spent greater than 30 minutes of critical care time in the direct management of this patient. This includes bedside care, interpretation of diagnostic studies, and testing, discussion with consultants, patient, and family members, and other required patient management activities. This 30 minutes is in excess of all separately billable procedures. Medical Decision Making Differential Diagnosis Differential diagnoses includes but is not limited to pneumonia, bronchitis, COPD/Asthma exacerbation, pneumothorax, pulmonary embolism, congestive heart failure, acute coronary syndrome Medical Records Attestation: I reviewed the patient's medical records. Home Medications Current Medication List: was personally reviewed by me Laboratory Data Attestation: I reviewed the patient's lab results. Result diagrams: 03/26/19 08:24 03/26/19 08:24 Lab Results 03/24/19 03/24/19 03/24/19 Range/Units 13:32 13:32 13:32 WBC 20.38 H (4.8-10.8) K/uL RBC 4.03 L (4.7-6.1) M/uL Hgb 10.9 L (14.0-18.0) g/dL Hct 35.8 L (42-52) % MCV 88.8 (80-100) fL MCH 27.0 (25-34) pg MCHC 30.4 L (32-36) g/dL RDW Std Deviation 53.5 H (36.4-46.3) fL RDW Coeff of Morris 16.5 H (11.5-14.5) % Plt Count 143 (130-400) K/uL MPV 9.9 (7.4-10.4) fL Immature Gran % (Auto) 0.4 % Neut % (Auto) 90.8 % Lymph % (Auto) 4.8 % [place] % (Auto) 3.8 % Eos % (Auto) 0.1 % Baso % (Auto) 0.1 % Immature Gran # (Auto) 0.08 H (0.00-0.02) K/uL Neut # (Auto) 18.50 H (1.4-6.5) K/uL Lymph # (Auto) 0.97 L (1.2-3.4) K/uL [place] # (Auto) 0.78 H (0.11-0.59) K/uL Eos # (Auto) 0.03 (0-0.5) K/uL Baso # (Auto) 0.02 (0-0.2) K/uL PT 11.2 (9.0-12.0) Seconds INR 1.1 (0.9-1.1) APTT 26.9 (21.0-31.0) Seconds PTT Ratio 1.0 VBG pH (7.36-7.41) VBG pCO2 (38-50) mmHg VBG pO2 mmHg VBG HCO3 mmol/L VBG O2 Saturation % VBG Base Excess mEq/L Barometric Pressure mm/Hg Sodium 136 (136-145) mmol/L Potassium 4.6 (3.5-5.1) mmol/L Chloride 104 (98-107) mmol/L Carbon Dioxide 25 (21-32) mmol/L Anion Gap 7.0 (3-11) BUN 28 H (7-18) mg/dl Creatinine 1.47 H (0.6-1.4) mg/dl Est Cr Clr Drug Dosing 39.9 ml/min Est GFR ( Amer) 49.0 Est GFR (Non-Af Amer) 42.3 BUN/Creatinine Ratio 19.3 (10-20) Glucose 209 H (70-99) mg/dl Lactate (0.4-2.0) mmol/L Calcium 8.1 L (8.5-10.1) mg/dl Total Bilirubin 0.8 (0.2-1) mg/dl AST 12 L (15-37) U/L ALT 19 (12-78) U/L Alkaline Phosphatase 83 (45-117) U/L Total Creatine Kinase 125 (39-308) U/L CK-MB (CK-2) 5.8 H (0.5-3.6) ng/ml CK/CKMB % Calc 4.6 H (0-3.0) Troponin I < 0.015 (0-0.045) ng/ml NT-Pro-B Natriuret Pep 3130 H (0-1800) pg/ml Total Protein 6.3 L (6.4-8.2) gm/dl Albumin 3.0 L (3.4-5.0) gm/dl Globulin 3.3 (2.5-4.0) gm/dl Albumin/Globulin Ratio 0.9 (0.9-2) Influenza Type A (PCR) (Neg) Influenza Type B (PCR) (Neg) 03/24/19 03/24/19 03/24/19 Range/Units 13:32 13:40 13:58 WBC (4.8-10.8) K/uL RBC (4.7-6.1) M/uL Hgb (14.0-18.0) g/dL Hct (42-52) % MCV (80-100) fL MCH (25-34) pg MCHC (32-36) g/dL RDW Std Deviation (36.4-46.3) fL RDW Coeff of Morris (11.5-14.5) % Plt Count (130-400) K/uL MPV (7.4-10.4) fL Immature Gran % (Auto) % Neut % (Auto) % Lymph % (Auto) % [place] % (Auto) % Eos % (Auto) % Baso % (Auto) % Immature Gran # (Auto) (0.00-0.02) K/uL Neut # (Auto) (1.4-6.5) K/uL Lymph # (Auto) (1.2-3.4) K/uL [place] # (Auto) (0.11-0.59) K/uL Eos # (Auto) (0-0.5) K/uL Baso # (Auto) (0-0.2) K/uL PT (9.0-12.0) Seconds INR (0.9-1.1) APTT (21.0-31.0) Seconds PTT Ratio VBG pH 7.34 L (7.36-7.41) VBG pCO2 50 (38-50) mmHg VBG pO2 45 mmHg VBG HCO3 26 mmol/L VBG O2 Saturation 78.0 % VBG Base Excess -0.2 mEq/L Barometric Pressure 726.5 mm/Hg Sodium (136-145) mmol/L Potassium (3.5-5.1) mmol/L Chloride (98-107) mmol/L Carbon Dioxide (21-32) mmol/L Anion Gap (3-11) BUN (7-18) mg/dl Creatinine (0.6-1.4) mg/dl Est Cr Clr Drug Dosing ml/min Est GFR ( Amer) Est GFR (Non-Af Amer) BUN/Creatinine Ratio (10-20) Glucose (70-99) mg/dl Lactate 4.1 H* (0.4-2.0) mmol/L Calcium (8.5-10.1) mg/dl Total Bilirubin (0.2-1) mg/dl AST (15-37) U/L ALT (12-78) U/L Alkaline Phosphatase (45-117) U/L Total Creatine Kinase (39-308) U/L CK-MB (CK-2) (0.5-3.6) ng/ml CK/CKMB % Calc (0-3.0) Troponin I (0-0.045) ng/ml NT-Pro-B Natriuret Pep (0-1800) pg/ml Total Protein (6.4-8.2) gm/dl Albumin (3.4-5.0) gm/dl Globulin (2.5-4.0) gm/dl Albumin/Globulin Ratio (0.9-2) Influenza Type A (PCR) Neg for Influ A (Neg) Influenza Type B (PCR) Neg for Influ B (Neg) 03/24/19 Range/Units 15:18 WBC (4.8-10.8) K/uL RBC (4.7-6.1) M/uL Hgb (14.0-18.0) g/dL Hct (42-52) % MCV (80-100) fL MCH (25-34) pg MCHC (32-36) g/dL RDW Std Deviation (36.4-46.3) fL RDW Coeff of Morris (11.5-14.5) % Plt Count (130-400) K/uL MPV (7.4-10.4) fL Immature Gran % (Auto) % Neut % (Auto) % Lymph % (Auto) % [place] % (Auto) % Eos % (Auto) % Baso % (Auto) % Immature Gran # (Auto) (0.00-0.02) K/uL Neut # (Auto) (1.4-6.5) K/uL Lymph # (Auto) (1.2-3.4) K/uL [place] # (Auto) (0.11-0.59) K/uL Eos # (Auto) (0-0.5) K/uL Baso # (Auto) (0-0.2) K/uL PT (9.0-12.0) Seconds INR (0.9-1.1) APTT (21.0-31.0) Seconds PTT Ratio VBG pH (7.36-7.41) VBG pCO2 (38-50) mmHg VBG pO2 mmHg VBG HCO3 mmol/L VBG O2 Saturation % VBG Base Excess mEq/L Barometric Pressure mm/Hg Sodium (136-145) mmol/L Potassium (3.5-5.1) mmol/L Chloride (98-107) mmol/L Carbon Dioxide (21-32) mmol/L Anion Gap (3-11) BUN (7-18) mg/dl Creatinine (0.6-1.4) mg/dl Est Cr Clr Drug Dosing ml/min Est GFR ( Amer) Est GFR (Non-Af Amer) BUN/Creatinine Ratio (10-20) Glucose (70-99) mg/dl Lactate 2.8 H* (0.4-2.0) mmol/L Calcium (8.5-10.1) mg/dl Total Bilirubin (0.2-1) mg/dl AST (15-37) U/L ALT (12-78) U/L Alkaline Phosphatase (45-117) U/L Total Creatine Kinase (39-308) U/L CK-MB (CK-2) (0.5-3.6) ng/ml CK/CKMB % Calc (0-3.0) Troponin I (0-0.045) ng/ml NT-Pro-B Natriuret Pep (0-1800) pg/ml Total Protein (6.4-8.2) gm/dl Albumin (3.4-5.0) gm/dl Globulin (2.5-4.0) gm/dl Albumin/Globulin Ratio (0.9-2) Influenza Type A (PCR) (Neg) Influenza Type B (PCR) (Neg) Imaging Data Radiologist's Impression: Radiology results as stated below per my review and the radiologist's interpretation: XR chest 1V portable CLINICAL HISTORY: Sepsis COMPARISON STUDY: 07/15/2018 FINDINGS: The heart is borderline enlarged. There is a retrocardiac opacity likely representing a hiatal hernia. There are scattered granulomatous calcifications. There are bilateral calcified pleural plaques. There are bilateral lower lobe airspace opacities. The right lower lobe airspace opacity with air bronchograms was present on the preceding study[there is mild central vascular prominence without evidence of overt failure. IMPRESSION: 1. Very large hiatal hernia with intrathoracic stomach 2. Scattered calcified granulomas 3. Bilateral calcified pleural plaques 4. Bilateral lower lobe airspace opacities right greater than left. Electronically signed by: Naeem Mckeon M.D. 03/24/2019 2:27 PM ECG Data Attestation: I personally reviewed and interpreted this ECG as follows: Indication: + SOB/dyspnea Rate (beats per minute): 99 Rhythm: + normal sinus ECG Butler: + Normal ECG ST segments: no ST depression and no ST elevation ECG Findings: + Other (old septal infarct, QT-c 479) Comparison ECG Date: from (10/01/2018) Change: no significant change Blood Pressure Blood Pressure Findings: Elevated blood pressure Blood Pressure Disposition: further management by hospitalist MDM Narrative This is an 88-year-old male who presents emergency department complaining of shortness of breath. Patient is hypoxic upon arrival to the emergency department. He was placed on BiPAP here in the emergency department and blood cultures were obtained. The patient was started on broad-spectrum antibiotics including Zosyn and Levaquin. He does not have an elevation in his white blood cell count. He was given breathing treatments here in the emergency department. I did discuss the case with the hospitalist service who did agree to admit the patient. Patient was in agreement with the treatment plan. Impression & Plan Bilateral pneumonia, Hypoxia Discharge Plan Visit Data *Final* Discharge Date/Time: 03/24/19 17:09 Chief Complaint: Cough Stated Complaint: COUGH, LOW 02 STATS,CONFUSION ED Provider: Michael Nicholas Discharge Problem: Bilateral pneumonia, Hypoxia Patient Disposition: Admitted As Inpatient Discharge Instructions Interventions: ED Discharge Assessment Last Done: 03/24/19 17:09 Discharge Problem: Bilateral pneumonia Qualifiers: Pneumonia type: due to unspecified organism Lung location: unspecified part of lung Qualified Code(s): J18.9 - Pneumonia, unspecified organism The scribe's documentation has been prepared under my direction and personally reviewed by me in its entirety. I confirm that the note above accurately reflects all work, treatment, procedures, and medical decision making performed by me.
[2019-03-24] MEDS: PIPERACILLIN/TAZOBACTAM 4.5 GM in DEXTROSE 5% 100 ML IV SCH (19:50)
[2019-03-24] MEDS: MOMETASONE FUROATE 14 PUFF/1 INHALER INH SCH (19:55)
[2019-03-24] MEDS: GABAPENTIN 300 MG CAP PO SCH (19:58)
[2019-03-24] MEDS ORDERED: MAGNESIUM OXIDE 400 MG TAB PO SCH (21:00)
[2019-03-24] MEDS: TRAMADOL HCL 50 MG TABLET PO SCH (22:30)
[2019-03-24] MEDS: HEPARIN SOD 5,000 UNIT/0.5 ML VIAL SQ SCH (22:31)
[2019-03-25] MEDS: HEPARIN SOD 5,000 UNIT/0.5 ML VIAL SQ SCH ×3 (04:57→20:37)
[2019-03-25] MEDS: PIPERACILLIN/TAZOBACTAM 4.5 GM in DEXTROSE 5% 100 ML IV SCH ×3 (04:57→20:33)
[2019-03-25] MEDS: TRAMADOL HCL 50 MG TABLET PO SCH ×3 (04:59→21:23)
--- NOTE | 2019-03-25 07:58 | XRay Report ---
XR chest 1V portable CLINICAL HISTORY: respiratory failure dyspnea COMPARISON STUDY: 03/24/2018 FINDINGS: Unchanged bibasilar parenchymal infiltrative change. Diaphragmatic calcification is similar . Heart remains moderately enlarged. Pulmonary vasculature is mildly increased. IMPRESSION: Unchanged bibasilar parenchymal infiltrative change. Mild increase in prominence of the pulmonary vasculature. The above report was generated using voice recognition software. It may contain grammatical, syntax or spelling errors. Electronically signed by: Patrick Miller M.D. 03/25/2019 7:56 AM
[2019-03-25 08:02] LABS: Basophils # (auto) 0.02 K/uL (0-0.2); Basophils % (auto) 0.1 %; Eosinophils % (auto) 0.7 %; Hematocrit (blood only) 34.2 % (42-52); Hemoglobin 10.8 g/dL (14.0-18.0); Immature Granulocytes # (auto) 0.04 K/uL (0.00-0.02); Immature Granulocytes % (auto) 0.3 %; Lymphocytes # (auto) 0.92 K/uL (1.2-3.4); Lymphocytes % (auto) 6.7 %; Mean Corpuscular Hemoglobin 27.1 pg (25-34); Mean Corpuscular Hgb Conc 31.6 g/dL (32-36); Mean Corpuscular Volume 85.9 fL (80-100); Mean Platelet Volume 9.9 fL (7.4-10.4); Monocytes # (auto) 0.68 K/uL (0.11-0.59); Monocytes % (auto) 4.9 %; Neutrophils # (auto) 11.99 K/uL (1.4-6.5); Neutrophils % (auto) 87.3 %; Platelet Count 117 K/uL (130-400); RDW Coefficient of Variation 16.5 % (11.5-14.5); RDW Standard Deviation 51.5 fL (36.4-46.3); Red Blood Count 3.98 M/uL (4.7-6.1); White Blood Count 13.75 K/uL (4.8-10.8)
--- NOTE | 2019-03-25 08:10 | Billing Data ---
Coding Level of Care Code Critical Care 1st 30-74 mins
[2019-03-25 08:18] LABS: BUN Creatinine Ratio 19.6 (10-20); Calcium 8.4 mg/dl (8.5-10.1); Creatinine Clr Calc Pharmacy 41.3 ml/min; Est GFR (African American) 56.9; Est GFR (Non-African American) 49.1; Potassium 4.3 mmol/L (3.5-5.1)
[2019-03-25] MEDS: IPRATROPIUM BROMIDE/ALBUTEROL respimat INH INH PRN (09:00)
[2019-03-25] MEDS ORDERED: FERROUS SULFATE 325 MG TAB PO SCH (09:00)
[2019-03-25] MEDS ORDERED: DUTASTERIDE 0.5 MG PO SCH (09:00)
[2019-03-25] MEDS: MOMETASONE FUROATE 14 PUFF/1 INHALER INH SCH ×2 (09:00→20:34)
[2019-03-25] MEDS: AMLODIPINE BESYLATE 5 MG TAB PO SCH (09:02)
[2019-03-25] MEDS: FUROSEMIDE 20 MG TAB PO SCH ×2 (09:02→17:02)
[2019-03-25] MEDS: allopurinoL 300 MG TAB PO SCH (09:02)
[2019-03-25] MEDS: PANTOprazole 40 MG TAB PO SCH (09:03)
[2019-03-25] MEDS: FERROUS SULFATE 325 MG TAB PO SCH (09:03)
[2019-03-25] MEDS: GABAPENTIN 300 MG CAP PO SCH ×3 (09:03→20:36)
[2019-03-25] MEDS: ATORVASTATIN 40 MG TAB PO SCH (09:03)
[2019-03-25] MEDS: CLOPIDOGREL BISULFATE 75 MG TAB PO SCH (09:03)
[2019-03-25] MEDS: ASPIRIN 81 MG ECTAB PO SCH (09:03)
[2019-03-25] MEDS: predniSONE 5 MG TAB PO SCH (09:04)
[2019-03-25] MEDS: TOLTERODINE TARTRATE LA 4 MG CAPCR PO SCH (09:04)
[2019-03-25] MEDS: DOXYCYCLINE HYCLATE 100 MG CAP PO SCH ×2 (09:04→20:35)
[2019-03-25] MEDS: TAMSULOSIN HCL 0.4 MG CAP PO SCH (09:04)
[2019-03-25] MEDS: METOPROLOL SUCC 50MG EXT REL TAB PO SCH (09:04)
[2019-03-25] MEDS: MIRABEGRON ER 25 MG TAB PO SCH (09:04)
[2019-03-25] MEDS: CHOLECALCIFEROL 1,000 UNITS TAB PO SCH (09:04)
[2019-03-25] MEDS: MAGNESIUM OXIDE 400 MG TAB PO SCH ×2 (12:00→17:02)
--- NOTE | 2019-03-25 12:35 | Cardiology Consultation ---
Date of Consultation March 25, 2019 Assessment & Plan (1) Chronic diastolic heart failure: (2) Aortic stenosis: (3) Bilateral pneumonia: (4) Leg ulcer, left: I believe the patient has multifactorial shortness of breath with underlying COPD and suspect underlying pneumonia. He received a dose of IV furosemide 40 mg with 2.6 L of urine output. Regarding his aortic valve stenosis, he has a history of severe aortic stenosis based on 2D appearance of the valve, and moderate aortic stenosis by Doppler criteria. Past invasive cardiac catheterization in 2018 suggested mild aortic valve stenosis per review of the interventional cardiology notes. Review of his Doppler data on the echocardiogram today reveals multiple continuous-wave Doppler velocities in the range of 3.7 to 3.8 m/s, relatively unchanged compared to his last outpatient echo in our office in January 2019, but there were several envelopes trace that were just above the 4 m/s range consistent with severe aortic valve stenosis. I believe the most significant barrier for considering transcatheter aortic valve implantation would be his chronic skin ulcerations which would be a potential substrate for valve infection in the future, until his infection source is completely eliminated, I would recommend ongoing conservative therapy. Due to concerns about his volume status I would recommend perhaps transitioning him from Zosyn and oral doxycycline to another antibiotic that would allow less IV fluid input such as cefepime or Rocephin along with oral doxycycline. Agree with transition back to his prior to hospital home furosemide dose of 20 mg twice daily. Agree with subcutaneous heparin for DVT prophylaxis. History of Present Illness Attending Physician: Roro Wasserman MD History of Present Illness Marlo Jones is an 88 year old male seen in cardiology consultation per the request of Dr. Rivas for the evaluation of shortness of breath. The patient's primary social services coordinator is Dr. Deep Morocho of our practice. He also follows with Dr. Huntley of [facility] interventional/structural heart disease. The patient presented via the emergency room yesterday with complaints of cough, shortness of breath, and confusion. He had been found to be hypoxic upon arrival, and received a transient support with BiPAP. Furosemide was administered with improvement in his symptoms. The patient has since been weaned from BiPAP and is now in the PCU, room 222. He was comfortable eating his noontime meal, without acute complaint. His past medical history is notable for moderate to borderline severe aortic valve stenosis. Based on his outpatient chart, his aortic stenosis has appeared to be severe by 2D imaging, and moderate by Doppler criteria in the past. He also has a history of steroid-dependent COPD for which he also uses supplemental area oxygen and therefore determining the component of his shortness of breath which is due to aortic stenosis has been technically challenging. He had undergone coronary angiography and invasive hemodynamic assessment at [facility] on 09/04/2017 with findings of mild aortic valve stenosis, his mean gradient increased to 40 mmHg, but only after dobutamine administration on the Compliance Representative Dealer table. He was also noted to have severe systemic hypertension at that time with a blood pressure of 220 mmHg during the cardiac catheterization case and his left ventricular end-diastolic pressure was elevated at 20. He was found to have mild nonobstructive coronary heart disease. Ongoing observation has been recommended in the meantime. Cardiovascular review of systems: Positive shortness of breath, denies chest discomfort, denies palpitations, lightheadedness or dizziness. Allergies Allergy/AdvReac Type Severity Reaction Status Date / Time morphine Allergy Unknown "out of it Verified 03/24/19 15:00 for days" colchicine AdvReac Mild GI upset Verified 03/24/19 15:00 [place] [employer] AdvReac Unknown STOMACH Verified 03/24/19 15:00 ACHE FROM [employer] [facility] tomato AdvReac Unknown HEADACHE Verified 03/24/19 15:00 FROM TOMATO JUICE Home Medications Home Medications Medication Instructions Recorded Confirmed Type allopurinol 300 mg tablet 300 mg PO DAILY #90 tab 01/05/19 03/24/19 History atorvastatin 40 mg tablet 40 mg PO DAILY #90 tab 01/05/19 03/24/19 History clopidogrel 75 mg tablet 75 mg PO DAILY #30 tab 01/05/19 03/24/19 History doxycycline monohydrate 100 mg 100 mg PO BID #60 cap 03/09/19 03/24/19 Rx capsule amlodipine 2.5 mg PO DAILY 03/24/19 03/24/19 History aspirin [Aspir-81] 81 mg PO DAILY 03/24/19 03/24/19 History cholecalciferol (vitamin D3) 2,000 unit PO DAILY 03/24/19 03/24/19 History [Vitamin D3] collagenase clostridium histo. 1 applic TOPICAL DIRECTED PRN 03/24/19 03/24/19 History [Santyl] dutasteride 0.5 mg PO DAILY 03/24/19 03/24/19 History dutasteride [Avodart] 0.5 mg PO DAILY 03/24/19 03/24/19 History ferrous sulfate 325 mg PO DAILY 03/24/19 03/24/19 History gabapentin 300 mg PO TID 03/24/19 03/24/19 History ipratropium-albuterol [Combivent 1 puff INHALATION QID PRN 03/24/19 03/24/19 History Respimat] magnesium oxide 400 mg PO BID 03/24/19 03/24/19 History metoprolol succinate 50 mg PO DAILY 03/24/19 03/24/19 History mirabegron [Myrbetriq] 50 mg PO DAILY 03/24/19 03/24/19 History mometasone [Asmanex Twisthaler] 2 inh INHALATION BID 03/24/19 03/24/19 History multivit with kad-[id number]-[id number] 1 tab PO DAILY 03/24/19 03/24/19 History [Men's Daily Multivit-Mineral] ondansetron HCl [Zofran] 4 mg PO Q8H PRN 03/24/19 03/24/19 History pantoprazole 40 mg PO DAILY 03/24/19 03/24/19 History prednisone 5 mg PO DAILY 03/24/19 03/24/19 History tamsulosin 0.4 mg PO DAILY 03/24/19 03/24/19 History tolterodine 4 mg PO DAILY 03/24/19 03/24/19 History tramadol 50 - 100 mg PO Q6H PRN 03/24/19 03/24/19 History vitamin B complex [Super B-50 1 cap PO DAILY 03/24/19 03/24/19 History Complex] Patient History Medical History (Updated 03/25/19 @ 04:09 by Micah Rivas MD) Abnormal finding on CT scan (Inactive) MAXI (acute kidney injury) (Inactive) Aortic stenosis (Chronic) "echo 02/2017 - severe " On 03/21/15 18:55 Angela Jaramillo wrote "moderate" BPH (benign prostatic hypertrophy) (Chronic) Chronic diastolic heart failure CKD (chronic kidney disease), stage III (Chronic) COPD (chronic obstructive pulmonary disease) (Chronic) Dyslipidemia (Chronic) Dysphagia (Inactive) Esophageal dysmotility (Chronic) Furuncle (Inactive) Gout (Chronic) H/O atrial flutter (Chronic) "occurred postoperatively in 01/2014, converted to sinus rhythm with IV diltiazem" H/O diastolic dysfunction (Chronic) "grade I per echo 02/2017" On 03/21/15 19:09 Angela Jaramillo wrote "grade I per echo 01/2014" Hiatal hernia (Chronic) History of COPD (Inactive) History of duodenal ulcer (Chronic) History of heart valve insufficiency (Inactive) Hypertension (Chronic) Neuropathy (Chronic) Nocturnal hypoxemia (Chronic) Osteoporosis (Chronic) Peripheral vascular disease (Chronic) s/p angioplasty of right posterior tibial artery Psoriatic arthritis (Chronic) Renal lesion (Chronic) Tobacco abuse (Resolved) Umbilical hernia (Inactive) Urinary incontinence (Chronic) Volvulus of stomach (Chronic) Weight loss (Inactive) Surgical History History of angioplasty of peripheral vessel (Chronic) History of back surgery (Chronic) History of cardiac cath (Chronic) History of lithotripsy (Chronic) Status post endovenous radiofrequency ablation of saphenous vein (Chronic) Family History Mother Colorectal cancer Sister Breast cancer Lung cancer Father Parkinson disease Social History Preferred Language: Greek Communication Ability: Effective Visual Impairment: Limited Hearing Ability: Normal Clinical Nurse Reviewer Required: No Beliefs That Will Affect Care: None marital status: / Current Living Situation: Family Current Living Situation Comment: son lives with him current occupational status: retired other: walks with walker Feels Safe at Home: Yes Smoking Status: Former smoker Tobacco Type: cigarettes and smokeless tobacco ; Second Hand Exposure: No ; Hx Alcohol Use: No Hx Substance Use: No Review of Systems Review of Systems: All systems reviewed & are unremarkable except as noted in HPI & below Physical Exam Physical Exam: Temp Pulse Resp BP Pulse Ox 36.6 C 80 18 122/62 97 03/25/19 11:05 03/25/19 11:05 03/25/19 11:05 03/25/19 11:05 03/25/19 11:05 Constitutional: WD/WN, vitals as above Respiratory: Mildly decreased breath sounds the bases, no wrist rhonchi or wheezing Cardiovascular: Rate/Rhythm: regular rate Heart Sounds: + murmur (III/ systolic murmur) Vessels: no JVD Extremities: no edema Gastrointestinal (Abdomen): normal bowel sounds, soft, nontender, no hepatosplenomegaly Neurologic: PERRL, EOMI, accommodation nl, no face palsy, no dysarthria Results & Data Vital Signs (Past 12 Hours) Vital Signs Temp Pulse Pulse Pulse Resp BP Pulse Ox 03/25/19 11:05 36.6 C 80 18 122/62 97 03/25/19 08:00 78 03/25/19 07:33 36.8 C 81 18 133/79 95 03/25/19 02:50 37.1 C 83 16 122/70 96 03/25/19 00:29 37.2 C 85 18 121/79 94 Diagnostic Findings EKG performed on presentation 03/24/2019 at 1321 revealed sinus rhythm at 99 bpm with sinus arrhythmia, left anterior fascicular block, no significant repolarization changes. Unchanged compared to prior Review of radiology report describes a large hiatal hernia with intrathoracic stomach, bilateral calcified pleural plaques, bilateral lower lobe opacities record of the left. Medications Administered Current Inpatient Medications Albuterol (Combivent Respimat) 1 puffs INH QID PRN PRN Reason: Shortness Of Breath Or Wheezing Stop: 04/23/19 18:42 Last Admin: 03/25/19 09:00 Dose: 1 puffs Documented by: Allopurinol (Zyloprim) 300 mg PO DAILY [facility] Stop: 04/24/19 08:59 Last Admin: 03/25/19 09:02 Dose: 300 mg Documented by: Amlodipine Besylate (Norvasc) 2.5 mg PO DAILY [facility] Stop: 04/24/19 08:59 Last Admin: 03/25/19 09:02 Dose: 2.5 mg Documented by: Aspirin (Ecotrin Ectab) 81 mg PO DAILY [facility] Stop: 04/24/19 08:59 Last Admin: 03/25/19 09:03 Dose: 81 mg Documented by: Atorvastatin Calcium (Lipitor) 40 mg PO DAILY [facility] Stop: 04/24/19 08:59 Last Admin: 03/25/19 09:03 Dose: 40 mg Documented by: Clopidogrel Bisulfate (Plavix) 75 mg PO DAILY [facility] Stop: 04/24/19 08:59 Last Admin: 03/25/19 09:03 Dose: 75 mg Documented by: Doxycycline Hyclate (Vibramycin) 100 mg PO BID [facility] Stop: 04/24/19 08:59 Last Admin: 03/25/19 09:04 Dose: 100 mg Documented by: Ferrous Sulfate (Feosol) 325 mg PO DAILY@1200 [facility] Stop: 04/24/19 08:59 Last Admin: 03/25/19 09:03 Dose: 325 mg Documented by: Furosemide (Lasix) 20 mg PO BID17 [facility] Stop: 04/24/19 08:59 Last Admin: 03/25/19 09:02 Dose: 20 mg Documented by: Gabapentin (Neurontin) 300 mg PO TID [facility] Stop: 04/23/19 20:59 Last Admin: 03/25/19 09:03 Dose: 300 mg Documented by: Heparin Sodium (Porcine) (Heparin Sodium (Porcine)) 5,000 units SQ Q8 [facility] Stop: 04/23/19 21:59 Last Admin: 03/25/19 04:57 Dose: 5,000 units Documented by: Piperacillin Sod/Tazobactam (Sod 4.5 gm/ Dextrose) 120 mls @ 30 mls/hr IV Q8H [facility]; Protocol Stop: 03/31/19 19:59 Last Admin: 03/25/19 12:25 Dose: 30 mls/hr Documented by: Magnesium Oxide (Mag-Ox) 400 mg PO BID@1200,1800 [facility] Stop: 04/23/19 20:59 Metoprolol Succinate (Toprol Xl) 50 mg PO DAILY [facility] Stop: 04/24/19 08:59 Last Admin: 03/25/19 09:04 Dose: 50 mg Documented by: Mirabegron (Myrbetriq Er) 50 mg PO DAILY [facility] Stop: 04/24/19 08:59 Last Admin: 03/25/19 09:04 Dose: 50 mg Documented by: Miscellaneous (Order Awaiting Action) 1 ea N/A QS [facility] Stop: 04/24/19 00:00 Last Admin: 03/25/19 09:01 Dose: Not Given Documented by: Miscellaneous Information (Consult) 1 ea N/A UD PRN PRN Reason: Consult Stop: 04/23/19 14:18 Mometasone Furoate (Asmanex 220mcg) 1 puffs INH BID [facility] Stop: 04/23/19 20:59 Last Admin: 03/25/19 09:00 Dose: 1 puffs Documented by: Pantoprazole Sodium (Protonix) 40 mg PO DAILY [facility] Stop: 04/24/19 08:59 Last Admin: 03/25/19 09:03 Dose: 40 mg Documented by: Prednisone (Prednisone) 5 mg PO DAILY [facility] Stop: 04/24/19 08:59 Last Admin: 03/25/19 09:04 Dose: 5 mg Documented by: Tamsulosin HCl (Flomax) 0.4 mg PO DAILY [facility] Stop: 04/24/19 08:59 Last Admin: 03/25/19 09:04 Dose: 0.4 mg Documented by: Tolterodine Tartrate (Detrol La) 4 mg PO DAILY [facility] Stop: 04/24/19 08:59 Last Admin: 03/25/19 09:04 Dose: 4 mg Documented by: Tramadol HCl (Ultram) 50 mg PO Q8H [facility] Stop: 04/23/19 21:59 Last Admin: 03/25/19 04:59 Dose: 50 mg Documented by: Vitamin D (Vitamin D3) 2,000 units PO DAILY [facility] Stop: 04/24/19 08:59 Last Admin: 03/25/19 09:04 Dose: 2,000 units Documented by: Cardiac Enzymes 03/24/19 Range/Units 13:32 AST 12 L (15-37) U/L CK-MB (CK-2) 5.8 H (0.5-3.6) ng/ml Troponin I < 0.015 (0-0.045) ng/ml Coagulation 03/24/19 Range/Units 13:32 PT 11.2 (9.0-12.0) Seconds APTT 26.9 (21.0-31.0) Seconds CBC 03/24/19 03/25/19 Range/Units 13:32 07:54 WBC 20.38 H 13.75 H (4.8-10.8) K/uL RBC 4.03 L 3.98 L (4.7-6.1) M/uL Hgb 10.9 L 10.8 L (14.0-18.0) g/dL Hct 35.8 L 34.2 L (42-52) % Plt Count 143 117 L (130-400) K/uL Neut # (Auto) 18.50 H 11.99 H (1.4-6.5) K/uL Lymph # (Auto) 0.97 L 0.92 L (1.2-3.4) K/uL [place] # (Auto) 0.78 H 0.68 H (0.11-0.59) K/uL Eos # (Auto) 0.03 0.10 (0-0.5) K/uL Baso # (Auto) 0.02 0.02 (0-0.2) K/uL Comprehensive Metabolic Panel 03/24/19 03/25/19 Range/Units 13:32 07:54 Sodium 136 136 (136-145) mmol/L Potassium 4.6 4.3 (3.5-5.1) mmol/L Chloride 104 103 (98-107) mmol/L Carbon Dioxide 25 30 (21-32) mmol/L BUN 28 H 26 H (7-18) mg/dl Creatinine 1.47 H 1.30 (0.6-1.4) mg/dl Glucose 209 H 99 (70-99) mg/dl Calcium 8.1 L 8.4 L (8.5-10.1) mg/dl AST 12 L (15-37) U/L ALT 19 (12-78) U/L Alkaline Phosphatase 83 (45-117) U/L Total Protein 6.3 L (6.4-8.2) gm/dl Albumin 3.0 L (3.4-5.0) gm/dl Intake and Output 03/24/19 03/25/19 03/25/19 22:59 06:59 14:59 Intake Total 610 / 730 120 / 730 120 / 120 Output Total 2100 / 2650 550 / 2650 Balance -1490 / -1920 -430 / -1920 120 / 120 Intake: IV 370 / 490 120 / 490 120 / 120 LEVAQUIN/D5W 750 mg In 150 ml @ 150 / 150 100 mls/hr IV NOW STA Rx#: [id number] MAGNESIUM SULFATE / D5W 1 gm In 100 / 100 100 ml @ 100 mls/hr IV ONE ONE Rx#:[id number] ZOSYN 4.5 gm In 120 ml @ 240 120 / 120 mls/hr IV NOW ONE Rx#:[id number] Zosyn 4.5 gm In D5 100 ml @ 30 120 / 120 120 / 120 mls/hr IV Q8H [facility] Rx#:[id number] Oral 240 / 240 Output: Urine Amount (Catheter) 2099 550 / 2650 [place] 2099 550 / 2650 Other: Weight 85.3 kg 85.4 kg (1) Leg ulcer, left Non-pressure ulcer stage: unspecified non-pressure ulcer stage Qualified Code(s): L97.929 - Non-pressure chronic ulcer of unspecified part of left lower leg with unspecified severity (2) Bilateral pneumonia Lung location: unspecified part of lung Pneumonia type: due to unspecified organism Qualified Code(s): J18.9 - Pneumonia, unspecified organism
--- NOTE | 2019-03-25 16:51 | Hospitalist Progress Note ---
Date of Service March 25, 2019 Assessment & Plan (1) Acute and chronic respiratory failure with hypoxia: Presented to ED with cough, shortness of breath, confusion. O2 saturation as low as 83%. Patient was tachypneic. required BiPAP for respiratory support. Acute hypoxic respiratory failure. Contributing factors include congestive heart failure( diastolic heart failure with preserved LVef) /severe valvular heart disease ( aortic stenosis ) Treated with aggressive IV diuresis, States he feels much better Cardiology consulted, continue management as per cardiology (2) Chronic diastolic heart failure: History of chronic left ventricular diastolic heart failure/severe valvular heart disease, aortic stenosis Is noted with volume overload, shortness of breath lower extremity swelling, appreciate input from cardiology cont IV diuresis with Lasix monitor vol status pt reports of improvement of symptoms after diuresis cont to monitor in tele (3) Aortic stenosis: IV/ systolic murmur at base. History of aortic stenosis. Echocardiogram : shows grade 2 diastolic heart failure with severe aortic stenosis cardiology following (4) COPD (chronic obstructive pulmonary disease): COPD. On chronic prednisone therapy for psoriatic arthritis baseline COPD presented with COPD exacerbation due to pulmonary congestion cont Prednisone dose neb tx supplemental o2 management of CHF as outlined above (5) Pneumonia: Patient has nonproductive cough. s. Chest x-ray shows bibasilar infiltrates. WBC 20,000 on prednisone Procalcitonin normal. ordered Doxycycline (6) Elevated lactic acid level: Serum lactate 4.1. Repeat 2.8. Procalcitonin normal. Does not appear to be septic. Elevated lactate most likely due to hypoxia from pulmonary edema. (7) Hypertension: Continue metoprolol and amlodipine. (8) CKD (chronic kidney disease), stage III: Serum creatinine 1.47. Follow. (9) Gout: Continue allopurinol. (10) Dyslipidemia: Continue atorvastatin. (11) Leg ulcer, left: Consult Wound Care Nursing. (12) Chronic venous insufficiency: Consult Wound Care Nursing. (13) Urinary incontinence: Chronic urinary urgency incontinence. on rodriguez catheter for accurate measurement of intake and output (14) DVT prophylaxis: SQ heparin. (15) Discharge planning issues: Anticipated discharge to home. will need PT/OT eval prior to discharged home Family Medicine follow-up with Dr. Albarran. Subjective pt found sitting up chair appears comfortable very hard of hearing says feels much better since admission , SOB has improved no orthopnea lower ext swelling has improved ,no cough Physical Exam Constitutional: WD/WN, vitals as above + ill appearing Eyes: PERRL, conjunctivae normal, anicteric sclerae ENMT: external ear and nose normal, oropharynx normal Mouth: + edentulous Neck: trachea midline, no thyromegaly Respiratory: + tachypneic Auscultation: + rales and + wheezes Cardiovascular: Rate/Rhythm: regular rate Vessels: + JVD and normal carotid upstroke; + abnormal peripheral pulses (pedal pulses diminished) Extremities: normal capillary refill and + edema (1+ pretibial); no calf tenderness Gastrointestinal (Abdomen): normal bowel sounds, soft, nontender, no hepatosplenomegaly Musculoskeletal: Head/Neck/Chest: neck supple Extremities: strength 5/5 throughout; no cyanosis and no clubbing Skin: no rashes, warm and dry Psychiatric: Orientation: alert and oriented x 3 Affect: euthymic affect Results & Data Vital Signs (Past 12 Hours) Vital Signs Temp Pulse Pulse Pulse Resp BP Pulse Ox 03/25/19 15:30 36.8 C 79 20 103/59 L 96 03/25/19 15:00 81 03/25/19 11:05 36.6 C 80 18 122/62 97 03/25/19 08:00 78 03/25/19 07:33 36.8 C 81 18 133/79 95 (1) Leg ulcer, left Non-pressure ulcer stage: unspecified non-pressure ulcer stage Qualified Code(s): L97.929 - Non-pressure chronic ulcer of unspecified part of left lower leg with unspecified severity
[2019-03-26] MEDS: TRAMADOL HCL 50 MG TABLET PO SCH ×3 (05:34→22:00)
[2019-03-26] MEDS: HEPARIN SOD 5,000 UNIT/0.5 ML VIAL SQ SCH ×2 (05:39→13:58)
[2019-03-26] MEDS: ASPIRIN 81 MG ECTAB PO SCH (08:01)
[2019-03-26] MEDS: TAMSULOSIN HCL 0.4 MG CAP PO SCH (08:01)
[2019-03-26] MEDS: predniSONE 5 MG TAB PO SCH (08:02)
[2019-03-26] MEDS: GABAPENTIN 300 MG CAP PO SCH ×3 (08:02→20:49)
[2019-03-26] MEDS: METOPROLOL SUCC 50MG EXT REL TAB PO SCH (08:02)
[2019-03-26] MEDS: allopurinoL 300 MG TAB PO SCH (08:02)
[2019-03-26] MEDS: PANTOprazole 40 MG TAB PO SCH (08:02)
[2019-03-26] MEDS: CLOPIDOGREL BISULFATE 75 MG TAB PO SCH (08:03)
[2019-03-26] MEDS: MIRABEGRON ER 25 MG TAB PO SCH (08:03)
[2019-03-26] MEDS: AMLODIPINE BESYLATE 5 MG TAB PO SCH (08:03)
[2019-03-26] MEDS: ATORVASTATIN 40 MG TAB PO SCH (08:03)
[2019-03-26] MEDS: CHOLECALCIFEROL 1,000 UNITS TAB PO SCH (08:03)
[2019-03-26] MEDS: MOMETASONE FUROATE 14 PUFF/1 INHALER INH SCH ×2 (08:04→20:48)
[2019-03-26] MEDS: FUROSEMIDE 20 MG TAB PO SCH ×2 (08:04→17:44)
[2019-03-26] MEDS: IPRATROPIUM BROMIDE/ALBUTEROL respimat INH INH PRN (08:04)
[2019-03-26] MEDS: TOLTERODINE TARTRATE LA 4 MG CAPCR PO SCH (08:04)
[2019-03-26 08:43] LABS: Basophils # (auto) 0.01 K/uL (0-0.2); Basophils % (auto) 0.1 %; Eosinophils # (auto) 0.18 K/uL (0-0.5); Eosinophils % (auto) 1.8 %; Hematocrit (blood only) 34.6 % (42-52); Hemoglobin 10.8 g/dL (14.0-18.0); Immature Granulocytes # (auto) 0.01 K/uL (0.00-0.02); Immature Granulocytes % (auto) 0.1 %; Lymphocytes # (auto) 0.88 K/uL (1.2-3.4); Lymphocytes % (auto) 8.8 %; Mean Corpuscular Hgb Conc 31.2 g/dL (32-36); Mean Corpuscular Volume 86.5 fL (80-100); Mean Platelet Volume 9.7 fL (7.4-10.4); Monocytes # (auto) 0.51 K/uL (0.11-0.59); Monocytes % (auto) 5.1 %; Neutrophils # (auto) 8.38 K/uL (1.4-6.5); Neutrophils % (auto) 84.1 %; Platelet Count 128 K/uL (130-400); RDW Coefficient of Variation 16.4 % (11.5-14.5); RDW Standard Deviation 51.2 fL (36.4-46.3); White Blood Count 9.97 K/uL (4.8-10.8)
[2019-03-26 09:21] LABS: BUN Creatinine Ratio 19.5 (10-20); Calcium 8.5 mg/dl (8.5-10.1); Creatinine Clr Calc Pharmacy 38.7 ml/min; Est GFR (African American) 52.4; Est GFR (Non-African American) 45.2; Potassium 3.4 mmol/L (3.5-5.1)
[2019-03-26] MEDS: DOXYCYCLINE HYCLATE 100 MG CAP PO SCH ×2 (09:42→20:48)
--- NOTE | 2019-03-26 10:37 | Cardiology Progress Note ---
Date of Service March 26, 2019 Assessment & Plan (1) Chronic diastolic heart failure: Patient with 2.6 L of urine output 03/24/2019 until 03/25/2019, and 1.8 L of urine output from 03/25 to 03/26. Potassium 3.4 and this will be replaced. Continue chronic oral furosemide treatment 20 mg p.o. twice daily. (2) Bilateral pneumonia: Agree with doxycycline (3) Aortic stenosis: Continue observation, has planned follow-up with the valve clinic in July. (4) Venous stasis ulcer: Continue wound care. Will need his lesions to be healed prior to consideration for TAVR. Subjective CC: follow up shortness of breath Subjective: Pt's breathing continues to improve. He notes ongoing mild hemoptysis, with blood-tinged sputum in his trash can. Review of Systems Review of Systems: All systems reviewed & are unremarkable except as noted in HPI & below Respiratory: + hemoptysis Cardiovascular: no dyspnea at rest, no palpitations, no syncope and no edema Physical Exam Physical Exam: Temp Pulse Resp BP Pulse Ox 36.8 C 60 18 102/63 98 03/26/19 07:59 03/26/19 07:59 03/26/19 07:59 03/26/19 07:59 03/26/19 07:59 Constitutional: WD/WN, vitals as above Respiratory: Decreased breath sounds the bases, no rales, rhonchi, or wheezing Cardiovascular: Rate/Rhythm: regular rate Heart Sounds: + murmur (3/6 SM) Vessels: no JVD Extremities: no edema Gastrointestinal (Abdomen): normal bowel sounds, soft, nontender, no hepatosplenomegaly Neurologic: PERRL, EOMI, accommodation nl, no face palsy, no dysarthria Results & Data Vital Signs (Past 12 Hours) Vital Signs Temp Pulse Pulse Resp BP BP Pulse Ox 03/26/19 07:59 36.8 C 60 18 102/63 98 03/26/19 05:05 36.9 C 58 L 20 94/54 L 95 03/26/19 00:56 72 03/26/19 00:15 36.7 C 67 22 114/71 95 Laboratory Results CBC 03/26/19 Range/Units 08:24 WBC 9.97 (4.8-10.8) K/uL RBC 4.00 L (4.7-6.1) M/uL Hgb 10.8 L (14.0-18.0) g/dL Hct 34.6 L (42-52) % Plt Count 128 L (130-400) K/uL Neut # (Auto) 8.38 H (1.4-6.5) K/uL Lymph # (Auto) 0.88 L (1.2-3.4) K/uL Dillon # (Auto) 0.51 (0.11-0.59) K/uL Eos # (Auto) 0.18 (0-0.5) K/uL Baso # (Auto) 0.01 (0-0.2) K/uL Comprehensive Metabolic Panel 03/26/19 Range/Units 08:24 Sodium 134 L (136-145) mmol/L Potassium 3.4 L D (3.5-5.1) mmol/L Chloride 99 (98-107) mmol/L Carbon Dioxide 30 (21-32) mmol/L BUN 27 H (7-18) mg/dl Creatinine 1.39 (0.6-1.4) mg/dl Glucose 152 H (70-99) mg/dl Calcium 8.5 (8.5-10.1) mg/dl Intake and Output 03/25/19 03/26/19 03/26/19 22:59 06:59 14:59 Intake Total 420 / 1205 270 / 1205 Output Total 500 / 1825 425 / 1825 Balance -80 / -620 -155 / -620 Intake: IV 120 / 360 120 / 360 Zosyn 4.5 gm In D5 100 ml @ 30 120 / 360 120 / 360 mls/hr IV Q8H [facility] Rx#:[id number] Oral 300 / 845 150 / 845 Output: Urine Amount (Catheter) 500 / 1825 425 / 1825 Coude 500 / 1825 425 / 1825 Other: Weight 85.4 kg 81.3 kg (1) Bilateral pneumonia Lung location: unspecified part of lung Pneumonia type: due to unspecified organism Qualified Code(s): J18.9 - Pneumonia, unspecified organism (2) Venous stasis ulcer Venous stasis ulcer site: ankle Varicose vein presence: with varicose veins Laterality: left Non-pressure ulcer stage: with fat layer exposed Qualified Code(s): I83.023 - Varicose veins of left lower extremity with ulcer of ankle; L97.322 - Non-pressure chronic ulcer of left ankle with fat layer exposed
[2019-03-26] MEDS ORDERED: POTASSIUM CHLORIDE 20 MEQ TABCR PO ONE (11:00)
[2019-03-26] MEDS: MAGNESIUM OXIDE 400 MG TAB PO SCH ×2 (11:10→17:45)
[2019-03-26] MEDS: FERROUS SULFATE 325 MG TAB PO SCH (11:11)
--- NOTE | 2019-03-26 17:46 | Hospitalist Progress Note ---
Date of Service March 26, 2019 Assessment & Plan (1) Acute and chronic respiratory failure with hypoxia: (1) Acute and chronic respiratory failure with hypoxia: secondary to #2 back to baseline 2 L NC (2) Chronic diastolic heart failure: History of chronic left ventricular diastolic heart failure/severe valvular heart disease, aortic stenosis (+) volume overload, shortness of breath, lower extremity edema Cardiology consulted, given IV Lasix with good diuresis transitioned to Lasix PO continue to monitor (3) Aortic stenosis: Echocardiogram : shows grade 2 diastolic heart failure with severe aortic stenosis TAVR planned after leg infection resolved (4) COPD (chronic obstructive pulmonary disease): COPD. On chronic prednisone therapy for psoriatic arthritis presented with COPD exacerbation due to pulmonary congestion cont Prednisone dose (5) Pneumonia: Chest x-ray shows bibasilar infiltrates. WBC 20,000 on prednisone Procalcitonin normal. 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 Repeat 2.8. Procalcitonin normal. Does not appear to be septic. Elevated lactate most likely due to hypoxia from pulmonary edema. (7) Hypertension: Continue metoprolol and amlodipine. (8) CKD (chronic kidney disease), stage III: Serum creatinine 1.39 (9) Gout: Continue allopurinol. (10) Dyslipidemia: Continue atorvastatin. (11) Leg ulcer, left: Consult Wound Care Nursing and Doxycycline (12) Chronic venous insufficiency: Consult Wound Care Nursing. (13) Urinary incontinence: Chronic urinary urgency incontinence. on rodriguez catheter for accurate measurement of intake and output (14) DVT prophylaxis: SQ heparin. (15) Discharge planning issues: PT recommends return home Family Medicine follow-up with Dr. Albarran. Subjective ff up for CHF exacerbation seen sitting up in chair, comfortable states he feels improved today compared to admission breathing has improved, coughing less but reports 2 episodes of hemoptysis yesterday, once today denies chest pain no other symptoms Review of Systems Review of Systems: All systems reviewed & are unremarkable except as noted in HPI & below Physical Exam Physical Exam: General- oriented x 3, not in distress, speaks in sentences with no effort or accessory muscle use Head- atraumatic Eyes- PERRL, EOMI, anicteric ENT- oropharynx clear Neck- supple, no JVD, no adenopathy, no thyromegaly; carotids +2/2, no bruits appreciated Lungs- clear to auscultation bilaterally, no rales/wheezes Heart- normal rate, regular rhythm;(+) holosystolic murmur, no gallop, no rub appreciated Abdomen- normal bowel sounds, nondistended, soft, nontender, no masses or hepatosplenomegaly Extremities- mild pretibial edema, no calf tenderness; peripheral pulses intact Neuro- alert, oriented x 3; CN 2-12 grossly intact; motor 5/5 bilaterally;sensation 100% on all extremities; no other gross focal neurologic deficits Skin- warm & dry Results & Data Vital Signs (Past 12 Hours) Vital Signs Temp Pulse Resp BP BP Pulse Ox 03/26/19 15:43 36.4 C L 75 18 100/63 98 03/26/19 11:55 36.5 C 77 18 115/68 96 03/26/19 07:59 36.8 C 60 18 102/63 98 Laboratory Results Laboratory Results - last 24 hr 03/26/19 03/26/19 08:24 08:24 WBC 9.97 RBC 4.00 L Hgb 10.8 L Hct 34.6 L MCV 86.5 MCH 27.0 MCHC 31.2 L RDW Std Deviation 51.2 H RDW Coeff of Morris 16.4 H Plt Count 128 L MPV 9.7 Immature Gran % (Auto) 0.1 Neut % (Auto) 84.1 Lymph % (Auto) 8.8 Scott % (Auto) 5.1 Eos % (Auto) 1.8 Baso % (Auto) 0.1 Immature Gran # (Auto) 0.01 Neut # (Auto) 8.38 H Lymph # (Auto) 0.88 L Scott # (Auto) 0.51 Eos # (Auto) 0.18 Baso # (Auto) 0.01 Sodium 134 L Potassium 3.4 L D Chloride 99 Carbon Dioxide 30 Anion Gap 5.0 BUN 27 H Creatinine 1.39 Est Cr Clr Drug Dosing 38.7 Est GFR ( Amer) 52.4 Est GFR (Non-Af Amer) 45.2 BUN/Creatinine Ratio 19.5 Glucose 152 H Calcium 8.5
--- NOTE | 2019-03-26 18:36 | CT Scan Report ---
CT SCAN OF THE CHEST WITHOUT IV CONTRAST CLINICAL HISTORY: Hemoptysis. COMPARISON STUDY: Chest x-ray dated 03/25/2019. Chest CT dated 11/11/2008. Abdominal CT dated 9. TECHNIQUE: CT scan of the thorax was performed from the thoracic inlet to the upper abdomen. Images are reviewed in the axial, sagittal, and coronal planes. IV contrast was not administered for this ex amination as per the referring clinician. A dose lowering technique was utilized adhering to the ike Vazquez. The examination is degraded by motion artifact, as well as by streak artifact from the arms which could not be elevated above the chest. CT DOSE: 853.70 mGycm FINDINGS: Thyroid: Imaged portions of the thyroid gland are normal in size and attenuation. Thoracic aorta: There is atherosclerotic calcification of the thoracic aorta, which is normal in jose luis amanda and demonstrates standard 3-vessel arch anatomy. Heart: The heart is enlarged and without pericardial effusion. The coronary arteries, aortic valve le aflets, and mitral annulus are densely calcified. Lungs and pleural spaces: Evaluation of the lung parenchyma is degraded by motion artifact. Emphysema tous change is noted. There are small bilateral pleural effusions with bibasilar consolidation. Bilat eral calcified pleural plaques are again noted, greatest at the lung bases. Layering secretions are n oted in the trachea. Mediastinum: There are scattered subcentimeter mediastinal lymph nodes. These are not pathologically enlarged by size criteria. Brianna: Not well assessed without IV contrast. Axillae: There is no axillary lymphadenopathy. Upper abdomen: There is a large hiatal hernia, with the majority of the stomach located in the thorac ic cavity. The kidneys are atrophic. Simple and complex cysts are again seen in the upper pole right kidney. There is gas within the right renal collecting system. 1.5 cm cyst is noted in the left lobe of the liver. Skeletal structures: The skeletal structures are osteopenic. Degenerative change and kyphoscoliosis a re noted in the thoracic spine. No lytic or blastic bony lesions are seen. IMPRESSION: 1. Cardiomegaly and emphysema. 2. There are small pleural effusions with bibasilar consolidation. Correlate clinically for evidence of pneumonia/aspiration pneumonitis. 3. Gas is present within the right renal collecting system. Correlate clinically and with urinalysis for evidence of ascending urinary tract infection. 4. There is a large hiatal hernia, with the majority of the stomach located in the thoracic cavity. 5. 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 6. Additional findings as above. Electronically signed by: Olman Poole M.D. 03/26/2019 6:35 PM
[2019-03-27] MEDS: TRAMADOL HCL 50 MG TABLET PO SCH ×3 (05:31→21:19)
[2019-03-27] MEDS ORDERED: OXYMETAZOLINE 0.05% 30 ML BTL STA (05:57)
[2019-03-27] MEDS ORDERED: methylPREDNISolone 20 MG in SYRINGE 0 ML IV STA (05:59)
--- NOTE | 2019-03-27 06:00 | Hospitalist Progress Note ---
Date of Service March 27, 2019 Subjective Made aware by RN of epistaxis, notably from the right nostril. Hemoptysis episode as per RN. AP Epistaxis, Hemoptysis Thrombocytopenia CBC now Appropriate to hold antiplatelet and anticoagulant Rx Local measures, Afrin for epistaxis ENT consult if without improvement Solu-Medrol 1 dose for hemoptysis. May need Pulmonary consult if without improvement Will relay to AM provider. Results & Data Vital Signs (Past 12 Hours) Vital Signs Temp Pulse Resp BP Pulse Ox 03/27/19 04:06 36.5 C 73 20 161/80 H 98 03/26/19 23:21 36.6 C 72 19 114/63 97 03/26/19 19:22 36.8 C 68 18 113/79 98
[2019-03-27] MEDS ORDERED: OXYMETAZOLINE 0.05% 30 ML BTL ONE (06:23)
[2019-03-27] MEDS: AMLODIPINE BESYLATE 5 MG TAB PO SCH (06:43)
[2019-03-27 07:06] LABS: Basophils # (auto) 0.02 K/uL (0-0.2); Basophils % (auto) 0.2 %; Eosinophils # (auto) 0.31 K/uL (0-0.5); Eosinophils % (auto) 3.4 %; Hematocrit (blood only) 34.5 % (42-52); Hemoglobin 10.7 g/dL (14.0-18.0); Immature Granulocytes # (auto) 0.02 K/uL (0.00-0.02); Immature Granulocytes % (auto) 0.2 %; Lymphocytes # (auto) 1.12 K/uL (1.2-3.4); Lymphocytes % (auto) 12.2 %; Mean Corpuscular Hemoglobin 27.1 pg (25-34); Mean Corpuscular Volume 87.3 fL (80-100); Mean Platelet Volume 9.9 fL (7.4-10.4); Monocytes # (auto) 0.71 K/uL (0.11-0.59); Monocytes % (auto) 7.8 %; Neutrophils # (auto) 6.97 K/uL (1.4-6.5); Neutrophils % (auto) 76.2 %; Platelet Count 150 K/uL (130-400); RDW Coefficient of Variation 16.2 % (11.5-14.5); Red Blood Count 3.95 M/uL (4.7-6.1); White Blood Count 9.15 K/uL (4.8-10.8)
[2019-03-27 07:54] LABS: BUN Creatinine Ratio 19.6 (10-20); Calcium 8.9 mg/dl (8.5-10.1); Creatinine Clr Calc Pharmacy 34.4 ml/min; Est GFR (African American) 45.6; Est GFR (Non-African American) 39.4; Potassium 4.4 mmol/L (3.5-5.1)
[2019-03-27] MEDS ORDERED: LIDOCAINE 2% JELLY 5 ML TUBE ONE (08:34)
[2019-03-27] MEDS ORDERED: ACETAMINOPHEN 1,000 MG/100 ML VIAL IV STA (08:37)
--- NOTE | 2019-03-27 08:43 | Hospitalist Progress Note ---
Date of Service March 27, 2019 Assessment & Plan (1) Acute and chronic respiratory failure with hypoxia: (1) Acute and chronic respiratory failure with hypoxia: secondary to #2 back to baseline 2 L NC (2) Chronic diastolic heart failure: History of chronic left ventricular diastolic heart failure/severe valvular heart disease, aortic stenosis (+) volume overload, shortness of breath, lower extremity edema Cardiology consulted, given IV Lasix with good diuresis transitioned to Lasix PO- crea slightly elevated continue to monitor (3) Aortic stenosis: Echocardiogram : shows grade 2 diastolic heart failure with severe aortic stenosis TAVR planned after leg infection resolved Epistaxis -- hold Heparin, Aspirin, Plavix -- repeat Hg 12 noon -- [place] placed Dr. Lundberg consulted, plan for cauterization today Hemoptysis -- CT scan: no mass/tumors noted from epistaxis? if still persistent with control of epistaxis, will consult Pulmonary for possible bronchoscopy (4) COPD (chronic obstructive pulmonary disease): COPD. On chronic prednisone therapy for psoriatic arthritis presented with COPD exacerbation due to pulmonary congestion cont Prednisone dose (5) Pneumonia: Chest x-ray shows bibasilar infiltrates. WBC 20,000 on prednisone Procalcitonin normal. ordered Doxycycline will order Speech Therapy eval management of epistaxis as noted above (6) Elevated lactic acid level: Serum lactate 4.1. Repeat 2.8. Procalcitonin normal. Does not appear to be septic. Elevated lactate most likely due to hypoxia from pulmonary edema. (7) Hypertension: Continue metoprolol and amlodipine. (8) CKD (chronic kidney disease), stage III: Serum creatinine 1.5 monitor while on Lasix (9) Gout: Continue allopurinol. (10) Dyslipidemia: Continue atorvastatin. (11) Leg ulcer, left: Consulted Wound Care Nursing on Doxycycline [facility] (12) Chronic venous insufficiency: Consult Wound Care Nursing. (13) Urinary incontinence: Chronic urinary urgency incontinence. on rodriguez catheter for accurate measurement of intake and output (14) DVT prophylaxis: SQ heparin. (15) Discharge planning issues: pending when medically stable, anticipate d/c home, continue home health services PT recommends return home Family Medicine follow-up with Dr. Albarran. Subjective ff up for CHF exacerbation this AM, patient started to have significant epistaxis, with hemoptysis- attributed from noseclip applied, Afrin given with no improvement Dr. Lundberg contacted, advised to keep patient NPO for cauterization this morning called by RN, patient still having continuous epistaxis requested Dr. Sweeney to place [place] at the bedside for the meantime patient seen sitting up in bed, uncomfortable but not in respiratory distress denies chest pain, dyspnea, dizziness no other symptoms Review of Systems Review of Systems: All systems reviewed & are unremarkable except as noted in HPI & below Physical Exam Physical Exam: General- oriented x 3, not in distress, speaks in sentences wit h no effort or accessory muscle use Eyes- anicteric Nose- (+) epistaxis, noseclip in placed Neck- no JVD Lungs- clear breath sounds bilaterally, no rales/wheezes Heart- normal rate, regular rhythm; no murmurs Abdomen- normal bowel sounds, nondistended, soft, nontender Extremities- mild pretibial edema,left lower leg ulcers: healing, no signs of infection, no calf tenderness Neuro- alert, oriented x 3; no gross focal neurologic deficits Skin- warm & dry Results & Data Vital Signs (Past 12 Hours) Vital Signs Temp Pulse Resp BP Pulse Ox 03/27/19 08:05 91 H 28 H 121/69 90 03/27/19 04:06 36.5 C 73 20 161/80 H 98 03/26/19 23:21 36.6 C 72 19 114/63 97 Laboratory Results Laboratory Results - last 24 hr 03/26/19 03/27/19 03/27/19 08:24 06:33 06:33 WBC 9.15 RBC 3.95 L Hgb 10.7 L Hct 34.5 L MCV 87.3 MCH 27.1 MCHC 31.0 L RDW Std Deviation 52.0 H RDW Coeff of Morris 16.2 H Plt Count 150 MPV 9.9 Immature Gran % (Auto) 0.2 Neut % (Auto) 76.2 Lymph % (Auto) 12.2 Mellette % (Auto) 7.8 Eos % (Auto) 3.4 Baso % (Auto) 0.2 Immature Gran # (Auto) 0.02 Neut # (Auto) 6.97 H Lymph # (Auto) 1.12 L Mellette # (Auto) 0.71 H Eos # (Auto) 0.31 Baso # (Auto) 0.02 Sodium 134 L 133 L Potassium 3.4 L D 4.4 D Chloride 99 98 Carbon Dioxide 30 31 Anion Gap 5.0 4.0 BUN 27 H 31 H Creatinine 1.39 1.56 H Est Cr Clr Drug Dosing 38.7 34.4 Est GFR ( Amer) 52.4 45.6 Est GFR (Non-Af Amer) 45.2 39.4 BUN/Creatinine Ratio 19.5 19.6 Glucose 152 H 95 Calcium 8.5 8.9 EDIN UFH Low Dose 0.1 EDIN UFH Low Dose 0.5 EDIN UFH High Dose EDIN Unfract Heparin Heparin-PF4 Ab Screen Blood Type Antibody Screen 03/27/19 03/27/19 03/27/19 06:33 06:33 06:33 WBC RBC Hgb Hct MCV MCH MCHC RDW Std Deviation RDW Coeff of Morris Plt Count MPV Immature Gran % (Auto) Neut % (Auto) Lymph % (Auto) Mellette % (Auto) Eos % (Auto) Baso % (Auto) Immature Gran # (Auto) Neut # (Auto) Lymph # (Auto) Mellette # (Auto) Eos # (Auto) Baso # (Auto) Sodium Potassium Chloride Carbon Dioxide Anion Gap BUN Creatinine Est Cr Clr Drug Dosing Est GFR ( Amer) Est GFR (Non-Af Amer) BUN/Creatinine Ratio Glucose Calcium EDIN UFH Low Dose 0.1 Pending EDIN UFH Low Dose 0.5 Pending EDIN UFH High Dose Pending EDIN Unfract Heparin Pending Heparin-PF4 Ab Screen Positive A Blood Type B Positive Antibody Screen NEGATIVE
[2019-03-27] MEDS ORDERED: HEPARIN SOD 5,000 UNIT/0.5 ML VIAL SQ SCH (09:00)
[2019-03-27] MEDS: ATORVASTATIN 40 MG TAB PO SCH (10:17)
[2019-03-27] MEDS: allopurinoL 300 MG TAB PO SCH (10:17)
[2019-03-27] MEDS: CHOLECALCIFEROL 1,000 UNITS TAB PO SCH (10:17)
[2019-03-27] MEDS: PANTOprazole 40 MG TAB PO SCH (10:18)
[2019-03-27] MEDS: GABAPENTIN 300 MG CAP PO SCH ×3 (10:18→21:19)
[2019-03-27] MEDS: TAMSULOSIN HCL 0.4 MG CAP PO SCH (10:18)
[2019-03-27] MEDS: METOPROLOL SUCC 50MG EXT REL TAB PO SCH (10:18)
[2019-03-27] MEDS: DOXYCYCLINE HYCLATE 100 MG CAP PO SCH ×2 (10:18→21:20)
[2019-03-27] MEDS: predniSONE 5 MG TAB PO SCH (10:18)
[2019-03-27] MEDS: MAGNESIUM OXIDE 400 MG TAB PO SCH ×2 (10:19→15:40)
[2019-03-27] MEDS: MIRABEGRON ER 25 MG TAB PO SCH (10:19)
[2019-03-27] MEDS: FUROSEMIDE 20 MG TAB PO SCH ×2 (10:19→15:40)
[2019-03-27] MEDS: TOLTERODINE TARTRATE LA 4 MG CAPCR PO SCH (10:19)
[2019-03-27] MEDS: FERROUS SULFATE 325 MG TAB PO SCH (10:19)
[2019-03-27 10:29] LABS: Hemoglobin 10.4 g/dL (14.0-18.0)
[2019-03-27] MEDS: MOMETASONE FUROATE 14 PUFF/1 INHALER INH SCH ×2 (10:48→21:19)
--- NOTE | 2019-03-27 12:30 | Anesthesiology Consultation ---
Date of Service March 27, 2019 Assessment & Plan (1) Encounter for pre-operative examination: Chart Review Chart Review: Acceptable Risk for Surgery History Surgery Operation Date: 03/27/19 14:55 Proposed Procedures p Nasal Bleed Endoscopic Cautery - Gricelda Lnudberg MD Height/Weight Height: 5 ft 10 in Weight: 81.9 kg Allergies Allergy/AdvReac Type Severity Reaction Status Date / Time morphine Allergy Unknown "out of it Verified 03/24/19 15:00 for days" colchicine AdvReac Mild GI upset Verified 03/24/19 15:00 [place] And Derivatives AdvReac Unknown STOMACH Verified 03/24/19 15:00 ACHE FROM [facility]RUS JUICE tomato AdvReac Unknown HEADACHE Verified 03/24/19 15:00 FROM TOMATO JUICE Medications Home Medications Medication Instructions Recorded Confirmed Last Taken allopurinol 300 mg tablet 300 mg PO DAILY #90 tab 01/05/19 03/24/19 03/24/19 atorvastatin 40 mg tablet 40 mg PO DAILY #90 tab 01/05/19 03/24/19 03/24/19 clopidogrel 75 mg tablet 75 mg PO DAILY #30 tab 01/05/19 03/24/19 03/24/19 doxycycline monohydrate 100 mg 100 mg PO BID #60 cap 03/09/19 03/24/19 03/24/19 08:00 capsule amlodipine 2.5 mg PO DAILY 03/24/19 03/24/19 03/24/19 aspirin [Aspir-81] 81 mg PO DAILY 03/24/19 03/24/19 03/24/19 cholecalciferol (vitamin D3) 2,000 unit PO DAILY 03/24/19 03/24/19 03/24/19 [Vitamin D3] collagenase clostridium histo. 1 applic TOPICAL DIRECTED PRN 03/24/19 03/24/19 03/24/19 [Santyl] dutasteride 0.5 mg PO DAILY 03/24/19 03/24/19 03/24/19 dutasteride [Avodart] 0.5 mg PO DAILY 03/24/19 03/24/19 03/24/19 ferrous sulfate 325 mg PO DAILY 03/24/19 03/24/19 03/24/19 gabapentin 300 mg PO TID 03/24/19 03/24/19 03/24/19 08:00 ipratropium-albuterol [Combivent 1 puff INHALATION QID PRN 03/24/19 03/24/19 Unknown Respimat] magnesium oxide 400 mg PO BID 03/24/19 03/24/19 03/24/19 08:00 metoprolol succinate 50 mg PO DAILY 03/24/19 03/24/19 03/24/19 mirabegron [Myrbetriq] 50 mg PO DAILY 03/24/19 03/24/19 03/24/19 mometasone [Asmanex Twisthaler] 2 inh INHALATION BID 03/24/19 03/24/19 03/24/19 08:00 multivit with [id number] 1 tab PO DAILY 03/24/19 03/24/19 03/24/19 [Men's Daily Multivit-Mineral] ondansetron HCl [Zofran] 4 mg PO Q8H PRN 03/24/19 03/24/19 Unknown pantoprazole 40 mg PO DAILY 03/24/19 03/24/19 03/24/19 prednisone 5 mg PO DAILY 03/24/19 03/24/19 03/24/19 tamsulosin 0.4 mg PO DAILY 03/24/19 03/24/19 03/24/19 tolterodine 4 mg PO DAILY 03/24/19 03/24/19 03/24/19 tramadol 50 - 100 mg PO Q6H PRN 03/24/19 03/24/19 Unknown vitamin B complex [Super B-50 1 cap PO DAILY 03/24/19 03/24/19 03/24/19 Complex] Active Medications Generic Name Dose Route Start Last Admin [facility] Reason Stop Dose Admin Albuterol 1 puffs 03/24/19 18:43 03/26/19 08:04 Combivent Respimat INH 04/23/19 18:42 1 puffs QID PRN Administration Shortness Of Breath Or Wheezing Allopurinol 300 mg 03/25/19 09:00 03/27/19 10:17 Zyloprim PO 04/24/19 08:59 300 mg DAILY DIOMEDES Administration Amlodipine Besylate 2.5 mg 03/27/19 06:15 03/27/19 06:43 Norvasc PO 04/26/19 06:14 2.5 mg DAILY DIOMEDES Administration Aspirin 81 mg 03/25/19 09:00 03/26/19 08:01 Ecotrin Ectab PO 04/24/19 08:59 81 mg DAILY DIOMEDES Administration Atorvastatin Calcium 40 mg 03/25/19 09:00 03/27/19 10:17 Lipitor PO 04/24/19 08:59 40 mg DAILY DIOMEDES Administration Clopidogrel Bisulfate 75 mg 03/25/19 09:00 03/26/19 08:03 Plavix PO 04/24/19 08:59 75 mg DAILY DIOMEDES Administration Doxycycline Hyclate 100 mg 03/25/19 09:00 03/27/19 10:18 Vibramycin PO 04/24/19 08:59 100 mg BID DIOMEDES Administration Ferrous Sulfate 325 mg 03/25/19 12:00 03/27/19 10:19 Feosol PO 04/24/19 08:59 325 mg DAILY@1200 DIOMEDES Administration Furosemide 20 mg 03/25/19 09:00 03/27/19 10:19 Lasix PO 04/24/19 08:59 20 mg BID17 DIOMEDES Administration Gabapentin 300 mg 03/24/19 21:00 03/27/19 10:18 Neurontin PO 04/23/19 20:59 300 mg TID DIOMEDES Administration Magnesium Oxide 400 mg 03/25/19 12:00 03/27/19 10:19 Mag-Ox PO 04/23/19 20:59 400 mg BID@1200,1800 DIOMEDES Administration Metoprolol Succinate 50 mg 03/25/19 09:00 03/27/19 10:18 Toprol Xl PO 04/24/19 08:59 50 mg DAILY DIOMEDES Administration Mirabegron 50 mg 03/25/19 09:00 03/27/19 10:19 Myrbetriq Er PO 04/24/19 08:59 50 mg DAILY DIOMEDES Administration Miscellaneous 1 ea 03/25/19 00:00 03/27/19 09:44 Order Awaiting Action N/A 04/24/19 00:00 Not Given QS DIOMEDES Mometasone Furoate 1 puffs 03/24/19 21:00 03/27/19 10:48 Asmanex 220mcg INH 04/23/19 20:59 Not Given BID DIOMEDES Pantoprazole Sodium 40 mg 03/25/19 09:00 03/27/19 10:18 Protonix PO 04/24/19 08:59 40 mg DAILY DIOMEDES Administration Prednisone 5 mg 03/28/19 09:00 03/27/19 10:18 Prednisone PO 04/27/19 08:59 5 mg DAILY DIOMEDES Administration Tamsulosin HCl 0.4 mg 03/25/19 09:00 03/27/19 10:18 Flomax PO 04/24/19 08:59 0.4 mg DAILY DIOMEDES Administration Tolterodine Tartrate 4 mg 03/25/19 09:00 03/27/19 10:19 Detrol La PO 04/24/19 08:59 4 mg DAILY DIOMEDES Administration Tramadol HCl 50 mg 03/24/19 22:00 03/27/19 05:31 Ultram PO 04/23/19 21:59 50 mg Q8H DIOMEDES Administration Vitamin D 2,000 units 03/25/19 09:00 03/27/19 10:17 Vitamin D3 PO 04/24/19 08:59 2,000 units DAILY DIOMEDES Administration Past Medical History Medical History Abnormal finding on CT scan (Inactive) MAXI (acute kidney injury) (Inactive) Aortic stenosis (Chronic) "echo 02/2017 - severe " On 03/21/15 18:55 Angela Jaramillo wrote "moderate" BPH (benign prostatic hypertrophy) (Chronic) Chronic diastolic heart failure CKD (chronic kidney disease), stage III (Chronic) COPD (chronic obstructive pulmonary disease) (Chronic) Dyslipidemia (Chronic) Dysphagia (Inactive) Esophageal dysmotility (Chronic) Furuncle (Inactive) Gout (Chronic) H/O atrial flutter (Chronic) "occurred postoperatively in 01/2014, converted to sinus rhythm with IV diltiazem" H/O diastolic dysfunction (Chronic) "grade I per echo 02/2017" On 03/21/15 19:09 Angela Jaramillo wrote "grade I per echo 01/2014" Hiatal hernia (Chronic) History of COPD (Inactive) History of duodenal ulcer (Chronic) History of heart valve insufficiency (Inactive) Hypertension (Chronic) Neuropathy (Chronic) Nocturnal hypoxemia (Chronic) Osteoporosis (Chronic) Peripheral vascular disease (Chronic) s/p angioplasty of right posterior tibial artery Psoriatic arthritis (Chronic) Renal lesion (Chronic) Tobacco abuse (Resolved) Umbilical hernia (Inactive) Urinary incontinence (Chronic) Volvulus of stomach (Chronic) Weight loss (Inactive) Past Family History Family History Mother Colorectal cancer Sister Breast cancer Lung cancer Father Parkinson disease Past Surgical History Surgical History History of angioplasty of peripheral vessel (Chronic) History of back surgery (Chronic) History of cardiac cath (Chronic) History of lithotripsy (Chronic) Status post endovenous radiofrequency ablation of saphenous vein (Chronic) Social History Smoking Status: Former smoker tobacco type: cigarettes and smokeless tobacco Hx Alcohol Use: No Hx Substance Use: No substance use type: does not use Physical Exam Vital Signs Last Vital Signs Temp 36.7 C 03/27/19 11:05 Pulse 90 03/27/19 11:05 Resp 16 03/27/19 11:05 BP 134/87 03/27/19 11:05 Pulse Ox 91 03/27/19 11:05 Testing Laboratory Results 03/27/19 10:15 03/27/19 06:33 PT 11.2 Seconds (9.0-12.0) 03/24/19 13:32 INR 1.1 (0.9-1.1) 03/24/19 13:32 APTT 26.9 Seconds (21.0-31.0) 03/24/19 13:32 Urine Color Yellow 03/24/19 17:16 Urine Appearance Clear (Clear) 03/24/19 17:16 Urine pH 6.0 (4.5-7.5) 03/24/19 17:16 Ur Specific [place] 1.013 (1.000-1.030) 03/24/19 17:16 Urine Protein Negative (Negative) 03/24/19 17:16 Urine Glucose (UA) Negative (Negative) 03/24/19 17:16 Urine Ketones Negative (Negative) 03/24/19 17:16 Urine Nitrite Negative (Negative) 03/24/19 17:16 Ur Leukocyte Esterase Negative (Negative) 03/24/19 17:16 Urine WBC (Auto) 5-10 /hpf (0-5) H 03/24/19 17:16 Urine RBC (Auto) 10-30 /hpf (0-4) H 03/24/19 17:16 U Hyaline Cast (Auto) 1-5 /lpf (0-5) 03/24/19 17:16 U Epithel Cells (Auto) >30 /lpf (0-5) H 03/24/19 17:16 Urine Bacteria (Auto) Negative (Negative) 03/24/19 17:16 Blood Type B Positive 03/27/19 06:33 Antibody Screen NEGATIVE 03/27/19 06:33 03/24/19 13:32 Aerobic Blood Culture - Preliminary Blood No growth in Aerobic bottle after 48 hours. Anaerobic Blood Culture - Preliminary No growth in Anaerobic bottle after 48 hours. 03/24/19 13:58 Aerobic Blood Culture - Preliminary Blood No growth in Aerobic bottle after 48 hours. Anaerobic Blood Culture - Preliminary No growth in Anaerobic bottle after 48 hours. Electrocardiogram Date: 03/24/19 Findings: + NSR @ (99 LAFB no changes from prior) Chest X-Ray Date: 03/25/19 Findings: + infiltrate (bibasilar) and + pulmonary vascular congestion Echocardiogram Date: 03/25/19 EF: 55-60% LV Function: normal Other Findings: + LVH and + diastolic dysfunction Valvular Disease: + (severe) and + pertinent finding (pulmonary hypertension)
[2019-03-27] MEDS ORDERED: TETRACAINE 4% SOLN TOP ONE (13:00)
[2019-03-27] MEDS ORDERED: IDENTIFIER TOP ONE (13:15)
[2019-03-27] MEDS ORDERED: TETRACAINE TOP ONE (13:15)
[2019-03-27] MEDS ORDERED: STERILE TOP ONE (13:15)
[2019-03-27] MEDS ORDERED: WATER TOP ONE (13:15)
--- NOTE | 2019-03-27 13:15 | ENT Consultation ---
Date of Consultation March 27, 2019 Assessment & Plan (1) Epistaxis: Endoscopic cautery and packing History of Present Illness Reason for Consultation: Epistaxis Attending Physician: Blake Silverman MD History of Present Illness I was consulted because of a severe right-sided epistaxis due to anticoagulants which are being held Allergies Allergy/AdvReac Type Severity Reaction Status Date / Time morphine Allergy Unknown "out of it Verified 03/24/19 15:00 for days" colchicine AdvReac Mild GI upset Verified 03/24/19 15:00 [place] And Derivatives AdvReac Unknown STOMACH Verified 03/24/19 15:00 ACHE FROM [facility] tomato AdvReac Unknown HEADACHE Verified 03/24/19 15:00 FROM TOMATO JUICE Home Medications Home Medications Medication Instructions Recorded Confirmed Type allopurinol 300 mg tablet 300 mg PO DAILY #90 tab 01/05/19 03/24/19 History atorvastatin 40 mg tablet 40 mg PO DAILY #90 tab 01/05/19 03/24/19 History clopidogrel 75 mg tablet 75 mg PO DAILY #30 tab 01/05/19 03/24/19 History doxycycline monohydrate 100 mg 100 mg PO BID #60 cap 03/09/19 03/24/19 Rx capsule amlodipine 2.5 mg PO DAILY 03/24/19 03/24/19 History aspirin [Aspir-81] 81 mg PO DAILY 03/24/19 03/24/19 History cholecalciferol (vitamin D3) 2,000 unit PO DAILY 03/24/19 03/24/19 History [Vitamin D3] collagenase clostridium histo. 1 applic TOPICAL DIRECTED PRN 03/24/19 03/24/19 History [Santyl] dutasteride 0.5 mg PO DAILY 03/24/19 03/24/19 History dutasteride [Avodart] 0.5 mg PO DAILY 03/24/19 03/24/19 History ferrous sulfate 325 mg PO DAILY 03/24/19 03/24/19 History gabapentin 300 mg PO TID 03/24/19 03/24/19 History ipratropium-albuterol [Combivent 1 puff INHALATION QID PRN 03/24/19 03/24/19 History Respimat] magnesium oxide 400 mg PO BID 03/24/19 03/24/19 History metoprolol succinate 50 mg PO DAILY 03/24/19 03/24/19 History mirabegron [Myrbetriq] 50 mg PO DAILY 03/24/19 03/24/19 History mometasone [Asmanex Twisthaler] 2 inh INHALATION BID 03/24/19 03/24/19 History multivit with [id number]-WP-[id number] 1 tab PO DAILY 03/24/19 03/24/19 History [Men's Daily Multivit-Mineral] ondansetron HCl [Zofran] 4 mg PO Q8H PRN 03/24/19 03/24/19 History pantoprazole 40 mg PO DAILY 03/24/19 03/24/19 History prednisone 5 mg PO DAILY 03/24/19 03/24/19 History tamsulosin 0.4 mg PO DAILY 03/24/19 03/24/19 History tolterodine 4 mg PO DAILY 03/24/19 03/24/19 History tramadol 50 - 100 mg PO Q6H PRN 03/24/19 03/24/19 History vitamin B complex [Super B-50 1 cap PO DAILY 03/24/19 03/24/19 History Complex] Patient History Medical History Abnormal finding on CT scan (Inactive) MAXI (acute kidney injury) (Inactive) Aortic stenosis (Chronic) "echo 02/2017 - severe " On 03/21/15 18:55 Angela Jaramillo wrote "moderate" BPH (benign prostatic hypertrophy) (Chronic) Chronic diastolic heart failure CKD (chronic kidney disease), stage III (Chronic) COPD (chronic obstructive pulmonary disease) (Chronic) Dyslipidemia (Chronic) Dysphagia (Inactive) Esophageal dysmotility (Chronic) Furuncle (Inactive) Gout (Chronic) H/O atrial flutter (Chronic) "occurred postoperatively in 01/2014, converted to sinus rhythm with IV diltiazem" H/O diastolic dysfunction (Chronic) "grade I per echo 02/2017" On 03/21/15 19:09 Angela Jaramillo wrote "grade I per echo 01/2014" Hiatal hernia (Chronic) History of COPD (Inactive) History of duodenal ulcer (Chronic) History of heart valve insufficiency (Inactive) Hypertension (Chronic) Neuropathy (Chronic) Nocturnal hypoxemia (Chronic) Osteoporosis (Chronic) Peripheral vascular disease (Chronic) s/p angioplasty of right posterior tibial artery Psoriatic arthritis (Chronic) Renal lesion (Chronic) Tobacco abuse (Resolved) Umbilical hernia (Inactive) Urinary incontinence (Chronic) Volvulus of stomach (Chronic) Weight loss (Inactive) Surgical History History of angioplasty of peripheral vessel (Chronic) History of back surgery (Chronic) History of cardiac cath (Chronic) History of lithotripsy (Chronic) Status post endovenous radiofrequency ablation of saphenous vein (Chronic) Family History Mother Colorectal cancer Sister Breast cancer Lung cancer Father Parkinson disease Social History Preferred Language: [place] Communication Ability: Effective Visual Impairment: Limited Hearing Ability: Normal Malted Milk Masher Required: No Beliefs That Will Affect Care: None marital status: / Current Living Situation: Family Current Living Situation Comment: son lives with him current occupational status: retired other: walks with walker Feels Safe at Home: Yes Smoking Status: Former smoker Tobacco Type: cigarettes and smokeless tobacco ; Second Hand Exposure: No ; Hx Alcohol Use: No Hx Substance Use: No Physical Exam Constitutional: + ill appearing Eyes: PERRL, conjunctivae normal, anicteric sclerae ENMT: Nose: + nasal mucous membrane abnormality (Merocel sponge in the right nostril) Neck: trachea midline, no thyromegaly Results & Data Vital Signs (Past 12 Hours) Vital Signs Temp Pulse Pulse Resp BP BP Pulse Ox 03/27/19 12:39 36.7 C 87 16 146/86 H 92 03/27/19 11:05 36.7 C 90 16 134/87 91 03/27/19 08:05 91 H 28 H 121/69 90 03/27/19 08:00 83 03/27/19 04:06 36.5 C 73 20 161/80 H 98
[2019-03-27] MEDS ORDERED: fentaNYL citrate 100 MCG/2 ML VIAL ONE (13:22)
[2019-03-27] MEDS ORDERED: MIDAZOLAM HCL 1 MG/ML 2ML VIAL ONE (13:22)
[2019-03-27] MEDS ORDERED: LABETALOL HCL IV 5 MG/ML 20ML IV PRN (13:29)
[2019-03-27] MEDS ORDERED: ATROPINE SULFATE 0.1 MG/ML 10ML SYR IV PRN (13:29)
[2019-03-27] MEDS ORDERED: GELATIN SPONGE 12-7MM ONE (13:33)
[2019-03-27] MEDS ORDERED: LIDOCAINE/EPINE 2% 1:100,000 20ML ONE (13:33)
[2019-03-27] MEDS ORDERED: MUPIROCIN 2% OINT 22 GM TUBE ONE (13:33)
[2019-03-27] MEDS ORDERED: EpINEphrine HCL INJ 1 MG/ML 1ML SYRINGE ONE (13:36)
[2019-03-27] MEDS ORDERED: GELATIN SPONGE SZ 100 ONE (13:55)
[2019-03-27] MEDS ORDERED: FLOSEAL HEMOSTATIC MATRIX 10ML TOP ONE (14:18)
--- NOTE | 2019-03-27 14:34 | Operative Report ---
Post Operative Report Pre & Post Diagnosis Operation Date: 03/27/19 14:55 Pre-Op Diagnosis: EPITAXIS Post-Op Diagnosis: EPITAXIS I identified the patient and participated in the time-out.: Yes Procedure Operation Date: 03/27/19 14:55 Actual Procedures p Nasal Bleed Endoscopic Cautery and posterior packing- Gricelda Lundberg MD Surgeon Gricelda Lundberg MD Assistant Spa Director None Estimated Blood Loss 5 Findings Consistent with Post-Op Diagnosis Specimens None Anesthesia Type MAC Disposition Accompanied Patient To Recovery: Yes Disposition: Recovery Room Indications Right-sided epistaxis Description of Procedure He was brought to the operating room placed supine position. Topical anesthesia was obtained using tetracaine mixed with 1 cc of epinephrine on cottonoids pledgets. Injection 2% Xylocaine with 1-1000 strength epinephrine was also used. The bleeding site was right mid septum inferiorly which was cauterized using the suction cautery. Posterior packing was started with strips of Gelfoam posteriorly followed by 10 cc of FloSeal followed by another strip of Gelfoam anteriorly. He tolerated the procedure well was taken to the recovery area in satisfactory condition. I attest to the content of the Intraoperative Record and any orders documented therein. Any exceptions are noted below.
--- NOTE | 2019-03-27 14:48 | Anesthesiology Progress Note ---
Date of Service March 27, 2019 Anesthesia Post Procedure Vital Signs Vital Signs: Temp Pulse Pulse Resp BP BP Pulse Ox 03/27/19 14:45 36.4 C L 86 18 149/96 H 93 03/27/19 14:35 85 17 139/89 94 03/27/19 14:29 36.3 C L 87 18 159/83 H 92 03/27/19 12:39 36.7 C 87 16 146/86 H 92 03/27/19 11:05 36.7 C 90 16 134/87 91 03/27/19 08:05 91 H 28 H 121/69 90 03/27/19 08:00 83 03/27/19 04:06 36.5 C 73 20 161/80 H 98 03/26/19 23:21 36.6 C 72 19 114/63 97 03/26/19 19:22 36.8 C 68 18 113/79 98 03/26/19 15:43 36.4 C L 75 18 100/63 98 Pain Intensity Bilateral Calf: Pain Intensity: 4 Right Shoulder: Pain Intensity: 4 Transfer of Care Handoff Completed per policy Notes Mental Status: alert / awake / arousable Patient Amnestic to Procedure: Yes Nausea / Vomiting: adequately controlled Pain: adequately controlled Airway Patency, RR, SpO2: stable & adequate BP & HR: stable & adequate Hydration State: stable & adequate Anesthetic Complications: no major complications apparent
--- NOTE | 2019-03-27 15:10 | Critical Care Progress Note ---
Date of Service March 27, 2019 Assessment & Plan (1) Epistaxis: We held pressure over the anterior nose for greater than 5 minutes, he subsequently had additional epistaxis which appeared localized to the right nare. We had applied topical phenylephrine. Given the continued bleeding I el ected to place a Rhino Rocket into the right nare, hospitalist medicine has consulted ENT for further evaluation and management. Present on Admission?: No Subjective Patient reports continuous epistaxis, mild nausea no vomiting Review of Systems Review of Systems: No chest pain no shortness of breath Physical Exam Physical Exam: General: Alert. nontoxic. Skin: Warm, dry, Head: Atraumatic HEENT: Pupils equal round reactive to light, epistaxis noted in right nare after patient blew clots. Oropharynx exhibits bloody drainage from epistaxis Results & Data Vital Signs (Past 12 Hours) Vital Signs Temp Pulse Pulse Resp BP BP Pulse Ox 03/27/19 15:00 89 19 159/98 H 93 03/27/19 14:45 36.4 C L 86 18 149/96 H 93 03/27/19 14:35 85 17 139/89 94 03/27/19 14:29 36.3 C L 87 18 159/83 H 92 03/27/19 12:39 36.7 C 87 16 146/86 H 92 03/27/19 11:05 36.7 C 90 16 134/87 91 03/27/19 08:05 91 H 28 H 121/69 90 03/27/19 08:00 83 03/27/19 04:06 36.5 C 73 20 161/80 H 98 Laboratory Results 03/27/19 03/27/19 03/27/19 Range/Units 10:15 06:33 06:33 WBC (4.8-10.8) K/uL RBC (4.7-6.1) M/uL Hgb 10.4 L (14.0-18.0) g/dL Hct 33.0 L (42-52) % MCV (80-100) fL MCH (25-34) pg MCHC (32-36) g/dL RDW Std Deviation (36.4-46.3) fL RDW Coeff of [place] (11.5-14.5) % Plt Count (130-400) K/uL MPV (7.4-10.4) fL Immature Gran % (Auto) % Neut % (Auto) % Lymph % (Auto) % [place] % (Auto) % Eos % (Auto) % Baso % (Auto) % Immature Gran # (Auto) (0.00-0.02) K/uL Neut # (Auto) (1.4-6.5) K/uL Lymph # (Auto) (1.2-3.4) K/uL [place] # (Auto) (0.11-0.59) K/uL Eos # (Auto) (0-0.5) K/uL Baso # (Auto) (0-0.2) K/uL Sodium (136-145) mmol/L Potassium (3.5-5.1) mmol/L Chloride (98-107) mmol/L Carbon Dioxide (21-32) mmol/L Anion Gap (3-11) BUN (7-18) mg/dl Creatinine (0.6-1.4) mg/dl Est Cr Clr Drug Dosing ml/min Est GFR ( Amer) Est GFR (Non-Af Amer) BUN/Creatinine Ratio (10-20) Glucose (70-99) mg/dl Calcium (8.5-10.1) mg/dl EDIN UFH Low Dose 0.1 Pending EDIN UFH Low Dose 0.5 Pending EDIN UFH High Dose Pending EDIN Unfract Heparin Pending Heparin-PF4 Ab Screen Positive A (Negative) Blood Type Antibody Screen 03/27/19 03/27/19 03/27/19 Range/Units 06:33 06:33 06:33 WBC 9.15 (4.8-10.8) K/uL RBC 3.95 L (4.7-6.1) M/uL Hgb 10.7 L (14.0-18.0) g/dL Hct 34.5 L (42-52) % MCV 87.3 (80-100) fL MCH 27.1 (25-34) pg MCHC 31.0 L (32-36) g/dL RDW Std Deviation 52.0 H (36.4-46.3) fL RDW Coeff of [place] 16.2 H (11.5-14.5) % Plt Count 150 (130-400) K/uL MPV 9.9 (7.4-10.4) fL Immature Gran % (Auto) 0.2 % Neut % (Auto) 76.2 % Lymph % (Auto) 12.2 % [place] % (Auto) 7.8 % Eos % (Auto) 3.4 % Baso % (Auto) 0.2 % Immature Gran # (Auto) 0.02 (0.00-0.02) K/uL Neut # (Auto) 6.97 H (1.4-6.5) K/uL Lymph # (Auto) 1.12 L (1.2-3.4) K/uL [place] # (Auto) 0.71 H (0.11-0.59) K/uL Eos # (Auto) 0.31 (0-0.5) K/uL Baso # (Auto) 0.02 (0-0.2) K/uL Sodium 133 L (136-145) mmol/L Potassium 4.4 D (3.5-5.1) mmol/L Chloride 98 (98-107) mmol/L Carbon Dioxide 31 (21-32) mmol/L Anion Gap 4.0 (3-11) BUN 31 H (7-18) mg/dl Creatinine 1.56 H (0.6-1.4) mg/dl Est Cr Clr Drug Dosing 34.4 ml/min Est GFR ( Amer) 45.6 Est GFR (Non-Af Amer) 39.4 BUN/Creatinine Ratio 19.6 (10-20) Glucose 95 (70-99) mg/dl Calcium 8.9 (8.5-10.1) mg/dl EDIN UFH Low Dose 0.1 EDIN UFH Low Dose 0.5 EDIN UFH High Dose EDIN Unfract Heparin Heparin-PF4 Ab Screen (Negative) Blood Type B Positive Antibody Screen NEGATIVE Coding Level of Care Code 65653 Subseq Hosp Care Lvl 2 Diagnoses Epistaxis R04.0
--- NOTE | 2019-03-27 15:12 | Billing Data ---
Coding Level of Care Code 53039 Subseq Hosp Care Lvl 3
--- NOTE | 2019-03-27 15:16 | Procedure Note ---
Procedure Note Date of Service March 27, 2019 Procedure date: Noted above Procedure: Right nare nasal packing Pre-procedure Diagnosis: Right nare epistaxis Post-procedure Diagnosis: same as above Prior to Procedure: Informed Consent: Verbal Attending Staff: Mati Sweeney DO Description of Procedure: Patient blew his nose to evacuate all clots, phenylephrine nasal spray was instilled. A Rhino Rocket introducer was lubricated with lidocaine jelly. Care was taken to insert the introducer into the right naris with firm gentle pressure. The Rhino Rocket was then deployed in the nare and the retention suture was hooked around the right ear and taped in place. Complications: None Patient's epistaxis did resolve with placement of Rhino Rocket nasal packing. Coding
--- NOTE | 2019-03-27 20:31 | Cardiology Progress Note ---
Date of Service March 27, 2019 Assessment & Plan (1) Chronic diastolic heart failure: (2) Aortic stenosis: Patient has been transitioned to oral antibiotics for his bilateral pneumonia. He is on his prior to hospital dose of oral furosemide 20 mg twice daily. His blood pressure is trended up late this afternoon and this evening, this is uncharacteristic for him. He is currently very comfortable. I question if perhaps this is a leftover remnant of his topical epinephrine that was used at the time of his cautery procedure earlier today. At present we will continue his current medications. Subjective Patient seen in cardiology follow-up. Respiratory status has improved significantly since his initial presentation. ENT input noted and appreciated as patient underwent endoscopic cautery for epistaxis today. Physical Exam Physical Exam: Temp Pulse Resp BP Pulse Ox 36.4 C L 84 19 184/110 H 98 03/27/19 18:54 03/27/19 18:54 03/27/19 18:54 03/27/19 18:54 03/27/19 18:54 Constitutional: WD/WN, vitals as above Cardiovascular: Rate/Rhythm: regular rate Heart Sounds: + murmur (III / systolic murmur) Vessels: no JVD Gastrointestinal (Abdomen): normal bowel sounds, soft, nontender, no hepatosplenomegaly Neurologic: PERRL, EOMI, accommodation nl, no face palsy, no dysarthria Results & Data Vital Signs (Past 12 Hours) Vital Signs Temp Pulse Pulse Resp BP BP Pulse Ox 03/27/19 18:54 36.4 C L 84 19 184/110 H 98 03/27/19 16:29 84 18 160/85 H 95 03/27/19 15:55 90 03/27/19 15:47 90 20 187/88 H 96 03/27/19 15:31 36.5 C 88 20 174/88 H 95 03/27/19 15:15 90 19 134/86 92 03/27/19 15:00 89 19 159/98 H 93 03/27/19 14:45 36.4 C L 86 18 149/96 H 93 03/27/19 14:35 85 17 139/89 94 03/27/19 14:29 36.3 C L 87 18 159/83 H 92 03/27/19 12:39 36.7 C 87 16 146/86 H 92 03/27/19 11:05 36.7 C 90 16 134/87 91 03/27/19 08:30 92 H 138/70 89 L
[2019-03-28] MEDS: TRAMADOL HCL 50 MG TABLET PO SCH ×2 (06:28→13:17)
[2019-03-28] MEDS: FUROSEMIDE 20 MG TAB PO SCH ×2 (08:21→17:49)
[2019-03-28 08:22] LABS: Basophils # (auto) 0.01 K/uL (0-0.2); Basophils % (auto) 0.1 %; Eosinophils # (auto) 0.09 K/uL (0-0.5); Eosinophils % (auto) 1.3 %; Hematocrit (blood only) 33.7 % (42-52); Hemoglobin 10.7 g/dL (14.0-18.0); Immature Granulocytes # (auto) 0.01 K/uL (0.00-0.02); Immature Granulocytes % (auto) 0.1 %; Lymphocytes # (auto) 0.95 K/uL (1.2-3.4); Lymphocytes % (auto) 13.3 %; Mean Corpuscular Hgb Conc 31.8 g/dL (32-36); Mean Corpuscular Volume 85.1 fL (80-100); Mean Platelet Volume 9.3 fL (7.4-10.4); Monocytes # (auto) 0.49 K/uL (0.11-0.59); Monocytes % (auto) 6.9 %; Neutrophils % (auto) 78.3 %; Platelet Count 152 K/uL (130-400); RDW Coefficient of Variation 15.9 % (11.5-14.5); RDW Standard Deviation 49.1 fL (36.4-46.3); Red Blood Count 3.96 M/uL (4.7-6.1); White Blood Count 7.15 K/uL (4.8-10.8)
[2019-03-28] MEDS: PANTOprazole 40 MG TAB PO SCH (08:22)
[2019-03-28] MEDS: METOPROLOL SUCC 50MG EXT REL TAB PO SCH (08:22)
[2019-03-28] MEDS: GABAPENTIN 300 MG CAP PO SCH ×3 (08:22→20:11)
[2019-03-28] MEDS: TOLTERODINE TARTRATE LA 4 MG CAPCR PO SCH (08:23)
[2019-03-28] MEDS: AMLODIPINE BESYLATE 5 MG TAB PO SCH (08:23)
[2019-03-28] MEDS: allopurinoL 300 MG TAB PO SCH (08:23)
[2019-03-28] MEDS: ATORVASTATIN 40 MG TAB PO SCH (08:23)
[2019-03-28] MEDS: DOXYCYCLINE HYCLATE 100 MG CAP PO SCH ×2 (08:23→20:10)
[2019-03-28] MEDS: CHOLECALCIFEROL 1,000 UNITS TAB PO SCH (08:23)
[2019-03-28] MEDS: TAMSULOSIN HCL 0.4 MG CAP PO SCH (08:24)
[2019-03-28] MEDS: MOMETASONE FUROATE 14 PUFF/1 INHALER INH SCH ×2 (08:24→20:47)
[2019-03-28] MEDS: MIRABEGRON ER 25 MG TAB PO SCH (08:24)
[2019-03-28 08:57] LABS: BUN Creatinine Ratio 27.6 (10-20); Calcium 9.1 mg/dl (8.5-10.1); Est GFR (African American) 61.4; Potassium 4.4 mmol/L (3.5-5.1)
--- NOTE | 2019-03-28 09:15 | Surgery Progress Note ---
Date of Service March 28, 2019 Assessment & Plan (1) Epistaxis: Epistaxis controlled, has only dissolvable packing in the right nares. I will sign off on this case. Please feel free to contact me if there is any sign of bleeding. Subjective Spitting up some dark old blood but no active bleeding Physical Exam ENMT: Packing in the right nostril no active bleeding Results & Data Vital Signs (Past 12 Hours) Vital Signs Temp Pulse Pulse Resp BP Pulse Ox 03/28/19 07:29 36.5 C 78 19 145/87 H 95 03/28/19 07:25 75 03/28/19 04:00 72 148/83 H 92 03/27/19 23:07 36.5 C 82 18 123/67 91 03/27/19 22:42 82
--- NOTE | 2019-03-28 10:07 | Anesthesiology Progress Note ---
Date of Service March 28, 2019 Anesthesia Post Procedure Vital Signs Vital Signs: Temp Pulse Pulse Resp BP BP Pulse Ox 03/28/19 07:29 36.5 C 78 19 145/87 H 95 03/28/19 07:25 75 03/28/19 04:00 72 148/83 H 92 03/27/19 23:07 36.5 C 82 18 123/67 91 03/27/19 22:42 82 03/27/19 19:30 163/85 H 03/27/19 18:54 36.4 C L 84 19 184/110 H 98 03/27/19 16:29 84 18 160/85 H 95 03/27/19 15:55 90 03/27/19 15:47 90 20 187/88 H 96 03/27/19 15:31 36.5 C 88 20 174/88 H 95 03/27/19 15:15 90 19 134/86 92 03/27/19 15:00 89 19 159/98 H 93 03/27/19 14:45 36.4 C L 86 18 149/96 H 93 03/27/19 14:35 85 17 139/89 94 03/27/19 14:29 36.3 C L 87 18 159/83 H 92 03/27/19 12:39 36.7 C 87 16 146/86 H 92 03/27/19 11:05 36.7 C 90 16 134/87 91 Pain Intensity Bilateral Calf: Pain Intensity: 4 Right Shoulder: Pain Intensity: 4 Notes Mental Status: alert / awake / arousable Patient Amnestic to Procedure: Yes Nausea / Vomiting: adequately controlled Pain: adequately controlled Airway Patency, RR, SpO2: stable & adequate BP & HR: stable & adequate Hydration State: stable & adequate Anesthetic Complications: no major complications apparent and Pt Satisfied with anesthetic care
[2019-03-28] MEDS: FERROUS SULFATE 325 MG TAB PO SCH (13:16)
[2019-03-28] MEDS: MAGNESIUM OXIDE 400 MG TAB PO SCH ×2 (13:16→17:51)
[2019-03-28] MEDS: CLOPIDOGREL BISULFATE 75 MG TAB PO SCH (17:50)
--- NOTE | 2019-03-28 19:03 | Hospitalist Progress Note ---
Date of Service March 28, 2019 Assessment & Plan (1) Acute and chronic respiratory failure with hypoxia: (1) Acute and chronic respiratory failure with hypoxia: secondary to #2 back to baseline 2 L NC (2) Chronic diastolic heart failure: History of chronic left ventricular diastolic heart failure/severe valvular heart disease, aortic stenosis (+) volume overload, shortness of breath, lower extremity edema Cardiology consulted, given IV Lasix with good diuresis transitioned to Lasix PO- crea slightly elevated continue to monitor (3) Aortic stenosis: Echocardiogram : shows grade 2 diastolic heart failure with severe aortic stenosis TAVR planned after leg infection resolved Epistaxis -- held Heparin, Aspirin, Plavix -- s/p Cauterization by Dr. Lundberg -- Hg stable Plavix may be restarted as per if with no recurrence, will resume ASA Hemoptysis -- CT scan: no mass/tumors noted likely from epistaxis if still persistent with control of epistaxis, will consult Pulmonary for possible bronchoscopy (4) COPD (chronic obstructive pulmonary disease): COPD. On chronic prednisone therapy for psoriatic arthritis presented with COPD exacerbation due to pulmonary congestion cont Prednisone dose (5) Pneumonia: Chest x-ray shows bibasilar infiltrates. WBC 20,000 on prednisone Procalcitonin normal. ordered Doxycycline Speech Therapy eval management of epistaxis as noted above (6) Elevated lactic acid level: Serum lactate 4.1. Repeat 2.8. Procalcitonin normal. Does not appear to be septic. Elevated lactate most likely due to hypoxia from pulmonary edema. (7) Hypertension: Continue metoprolol and amlodipine. (8) CKD (chronic kidney disease), stage III: Serum creatinine 1.5 monitor while on Lasix (9) Gout: Continue allopurinol. (10) Dyslipidemia: Continue atorvastatin. (11) Leg ulcer, left: Consulted [facility] Care [facility] on Doxycycline [facility] (12) Chronic venous insufficiency: Consult Wound Care Nursing. (13) Urinary incontinence: Chronic urinary urgency incontinence. on rodriguez catheter for accurate measurement of intake and output (14) DVT prophylaxis: SQ heparin. (15) Discharge planning issues: pending when medically stable, anticipate d/c home, continue home health services PT recommends return home Family Medicine follow-up with Dr. Albarran. Subjective ff up for CHF exacerbation Seen resting in bed side chair, comfortable, not in distress No recurrence of epistaxis States he feels improved today compared to yesterday No shortness of breath, palpitations, dizziness, chest pain Denies other symptoms Review of Systems Review of Systems: All systems reviewed & are unremarkable except as noted in HPI & below Physical Exam Physical Exam: General- oriented x 3, not in distress, speaks in sentences with no effort or accessory muscle use Eyes- anicteric Neck- no JVD Lungs- clear breath sounds bilaterally, no crackles, no wheezing Heart- normal rate, regular rhythm; no murmurs Abdomen- normal bowel sounds, nondistended, soft, nontender Extremities- no pretibial edema, no calf tenderness Neuro- alert, oriented x 3; no gross focal neurologic deficits Skin- warm & dry Results & Data Vital Signs (Past 12 Hours) Vital Signs Temp Pulse Pulse Resp BP Pulse Ox 03/28/19 16:00 78 03/28/19 15:51 36.5 C 74 20 154/89 H 100 03/28/19 11:28 36.3 C L 80 20 121/71 98 03/28/19 07:29 36.5 C 78 19 145/87 H 95 03/28/19 07:25 75 Laboratory Results Laboratory Results - last 24 hr 03/28/19 03/28/19 08:13 08:13 WBC 7.15 RBC 3.96 L Hgb 10.7 L Hct 33.7 L MCV 85.1 MCH 27.0 MCHC 31.8 L RDW Std Deviation 49.1 H RDW Coeff of [place] 15.9 H Plt Count 152 MPV 9.3 Immature Gran % (Auto) 0.1 Neut % (Auto) 78.3 Lymph % (Auto) 13.3 [place] % (Auto) 6.9 Eos % (Auto) 1.3 Baso % (Auto) 0.1 Immature Gran # (Auto) 0.01 Neut # (Auto) 5.60 Lymph # (Auto) 0.95 L [place] # (Auto) 0.49 Eos # (Auto) 0.09 Baso # (Auto) 0.01 Sodium 135 L Potassium 4.4 Chloride 100 Carbon Dioxide 29 Anion Gap 6.0 BUN 34 H Creatinine 1.22 D Est Cr Clr Drug Dosing 44.0 Est GFR ( Amer) 61.4 Est GFR (Non-Af Amer) 53.0 BUN/Creatinine Ratio 27.6 H Glucose 101 H Calcium 9.1
[2019-03-29] MEDS ORDERED: TRAMADOL HCL 50 MG TABLET ONE (00:02)
[2019-03-29] MEDS: TRAMADOL HCL 50 MG TABLET PO PRN (00:03)
[2019-03-29 06:14] LABS: Basophils # (auto) 0.02 K/uL (0-0.2); Basophils % (auto) 0.2 %; Eosinophils # (auto) 0.26 K/uL (0-0.5); Eosinophils % (auto) 3.1 %; Hematocrit (blood only) 33.2 % (42-52); Hemoglobin 10.4 g/dL (14.0-18.0); Immature Granulocytes # (auto) 0.02 K/uL (0.00-0.02); Immature Granulocytes % (auto) 0.2 %; Lymphocytes # (auto) 1.14 K/uL (1.2-3.4); Lymphocytes % (auto) 13.4 %; Mean Corpuscular Hemoglobin 26.9 pg (25-34); Mean Corpuscular Hgb Conc 31.3 g/dL (32-36); Mean Corpuscular Volume 85.8 fL (80-100); Mean Platelet Volume 8.6 fL (7.4-10.4); Monocytes # (auto) 0.78 K/uL (0.11-0.59); Monocytes % (auto) 9.2 %; Neutrophils # (auto) 6.26 K/uL (1.4-6.5); Neutrophils % (auto) 73.9 %; Platelet Count 163 K/uL (130-400); RDW Coefficient of Variation 15.8 % (11.5-14.5); RDW Standard Deviation 49.4 fL (36.4-46.3); Red Blood Count 3.87 M/uL (4.7-6.1); White Blood Count 8.48 K/uL (4.8-10.8)
[2019-03-29 06:42] LABS: BUN Creatinine Ratio 30.8 (10-20); Calcium 9.2 mg/dl (8.5-10.1); Creatinine Clr Calc Pharmacy 36.6 ml/min; Est GFR (Non-African American) 42.3; Potassium 4.3 mmol/L (3.5-5.1)
[2019-03-29] MEDS: DOXYCYCLINE HYCLATE 100 MG CAP PO SCH ×2 (08:50→20:43)
[2019-03-29] MEDS: GABAPENTIN 300 MG CAP PO SCH ×3 (08:51→20:42)
[2019-03-29] MEDS: allopurinoL 300 MG TAB PO SCH (08:52)
[2019-03-29] MEDS: AMLODIPINE BESYLATE 5 MG TAB PO SCH (08:52)
[2019-03-29] MEDS: ATORVASTATIN 40 MG TAB PO SCH (08:57)
[2019-03-29] MEDS: TOLTERODINE TARTRATE LA 4 MG CAPCR PO SCH (08:57)
[2019-03-29] MEDS: PANTOprazole 40 MG TAB PO SCH (08:57)
[2019-03-29] MEDS: CHOLECALCIFEROL 1,000 UNITS TAB PO SCH (08:57)
[2019-03-29] MEDS: METOPROLOL SUCC 50MG EXT REL TAB PO SCH (08:57)
[2019-03-29] MEDS: MIRABEGRON ER 25 MG TAB PO SCH (08:58)
[2019-03-29] MEDS: TAMSULOSIN HCL 0.4 MG CAP PO SCH (08:58)
[2019-03-29] MEDS: CLOPIDOGREL BISULFATE 75 MG TAB PO SCH (08:58)
[2019-03-29] MEDS: predniSONE 5 MG TAB PO SCH (08:58)
[2019-03-29] MEDS: FUROSEMIDE 20 MG TAB PO SCH ×2 (08:58→18:16)
[2019-03-29] MEDS: MOMETASONE FUROATE 14 PUFF/1 INHALER INH SCH ×2 (08:59→20:42)
[2019-03-29] MEDS: FERROUS SULFATE 325 MG TAB PO SCH (15:10)
[2019-03-29] MEDS: MAGNESIUM OXIDE 400 MG TAB PO SCH ×2 (15:11→18:17)
--- NOTE | 2019-03-29 17:35 | Hospitalist Progress Note ---
Date of Service March 29, 2019 Assessment & Plan (1) Acute and chronic respiratory failure with hypoxia: (1) Acute and chronic respiratory failure with hypoxia: secondary to #2 back to baseline 2 L NC (2) Chronic diastolic heart failure: History of chronic left ventricular diastolic heart failure/severe valvular heart disease, aortic stenosis (+) volume overload, shortness of breath, lower extremity edema Cardiology consulted, given IV Lasix with good diuresis transitioned to Lasix PO- crea slightly elevated -- remains euvolemic (3) Aortic stenosis: Echocardiogram : shows grade 2 diastolic heart failure with severe aortic stenosis TAVR planned after leg infection resolved Epistaxis -- held Heparin, Aspirin, Plavix -- s/p Cauterization by Dr. Lundberg -- Hg stable Plavix restarted, has intermittent blood tinged mucus today, will continue to monitor if with no recurrence, will resume ASA Hemoptysis -- CT scan: no mass/tumors noted likely from epistaxis if still persistent with control of epistaxis, will consult Pulmonary for possible bronchoscopy (4) COPD (chronic obstructive pulmonary disease): COPD. On chronic prednisone therapy for psoriatic arthritis presented with COPD exacerbation due to pulmonary congestion cont Prednisone dose (5) Pneumonia: Chest x-ray shows bibasilar infiltrates. WBC 20,000 on prednisone Procalcitonin normal. ordered Doxycycline Speech Therapy eval management of epistaxis as noted above (6) Elevated lactic acid level: Serum lactate 4.1. Repeat 2.8. Procalcitonin normal. Does not appear to be septic. Elevated lactate most likely due to hypoxia from pulmonary edema. (7) Hypertension: Continue metoprolol and amlodipine. (8) CKD (chronic kidney disease), stage III: Serum creatinine 1.5 monitor while on Lasix (9) Gout: Continue allopurinol. (10) Dyslipidemia: Continue atorvastatin. (11) Leg ulcer, left: Consulted Wound Care Nursing on Doxycycline [facility] (12) Chronic venous insufficiency: Consult Wound Care Nursing. (13) Urinary incontinence: Chronic urinary urgency incontinence. on rodriguez catheter for accurate measurement of intake and output (14) DVT prophylaxis: SQ heparin. (15) Discharge planning issues: pending when medically stable, anticipate d/c home, continue home health services PT recommends return home Family Medicine follow-up with Dr. Albarran. Subjective ff up for CHF exacerbation seen resting in chair daughters visiting at the bedside states he feels fine overall does report 2-3 episodes of blood tinged sputum, but no epistaxis denies dyspnea, chest pain no other symptoms Review of Systems Review of Systems: All systems reviewed & are unremarkable except as noted in HPI & below Physical Exam Physical Exam: General- oriented x 2, not in distress, speaks in sentences with no effort or accessory muscle use Eyes- anicteric Nose- no bleeding noted Neck- no JVD Lungs- clear BS bilaterally no rales/wheezing Heart- normal rate, regular rhythm; no murmurs Abdomen- normal bowel sounds, nondistended, soft, nontender Extremities- no pretibial edema, no calf tenderness Neuro- alert, oriented x 3; no gross focal neurologic deficits Skin- warm & dry Results & Data Vital Signs (Past 12 Hours) Vital Signs Temp Pulse Pulse Pulse Resp BP BP 03/29/19 15:37 36.4 C L 93 H 16 111/69 03/29/19 11:50 36.6 C 80 18 106/71 03/29/19 08:00 81 03/29/19 07:16 37.0 C 77 22 108/69 Pulse Ox 03/29/19 15:37 96 03/29/19 11:50 94 03/29/19 08:00 03/29/19 07:16 93 Laboratory Results Laboratory Results - last 24 hr 03/29/19 03/29/19 06:03 06:03 WBC 8.48 RBC 3.87 L Hgb 10.4 L Hct 33.2 L MCV 85.8 MCH 26.9 MCHC 31.3 L RDW Std Deviation 49.4 H RDW Coeff of [place] 15.8 H Plt Count 163 MPV 8.6 Immature Gran % (Auto) 0.2 Neut % (Auto) 73.9 Lymph % (Auto) 13.4 [place] % (Auto) 9.2 Eos % (Auto) 3.1 Baso % (Auto) 0.2 Immature Gran # (Auto) 0.02 Neut # (Auto) 6.26 Lymph # (Auto) 1.14 L [place] # (Auto) 0.78 H Eos # (Auto) 0.26 Baso # (Auto) 0.02 Sodium 134 L Potassium 4.3 Chloride 97 L Carbon Dioxide 32 Anion Gap 5.0 BUN 45 H Creatinine 1.47 H Est Cr Clr Drug Dosing 36.6 Est GFR ( Amer) 49.0 Est GFR (Non-Af Amer) 42.3 BUN/Creatinine Ratio 30.8 H Glucose 100 H Calcium 9.2
[2019-03-30 07:36] LABS: Basophils # (auto) 0.01 K/uL (0-0.2); Basophils % (auto) 0.1 %; Eosinophils # (auto) 0.28 K/uL (0-0.5); Eosinophils % (auto) 3.8 %; Hematocrit (blood only) 33.3 % (42-52); Hemoglobin 10.6 g/dL (14.0-18.0); Immature Granulocytes # (auto) 0.01 K/uL (0.00-0.02); Immature Granulocytes % (auto) 0.1 %; Lymphocytes # (auto) 1.29 K/uL (1.2-3.4); Lymphocytes % (auto) 17.7 %; Mean Corpuscular Hemoglobin 26.9 pg (25-34); Mean Corpuscular Hgb Conc 31.8 g/dL (32-36); Mean Corpuscular Volume 84.5 fL (80-100); Mean Platelet Volume 9.8 fL (7.4-10.4); Monocytes # (auto) 0.63 K/uL (0.11-0.59); Monocytes % (auto) 8.6 %; Neutrophils # (auto) 5.08 K/uL (1.4-6.5); Neutrophils % (auto) 69.7 %; Platelet Count 163 K/uL (130-400); RDW Coefficient of Variation 15.8 % (11.5-14.5); RDW Standard Deviation 48.6 fL (36.4-46.3); Red Blood Count 3.94 M/uL (4.7-6.1)
--- NOTE | 2019-03-30 07:55 | Anesthesiology Progress Note ---
Date of Service March 30, 2019 Anesthesia Post Procedure Vital Signs Vital Signs: Temp Pulse Pulse Pulse Pulse Resp BP 03/30/19 03:55 36.7 C 65 19 03/29/19 23:47 36.6 C 71 20 03/29/19 22:20 75 03/29/19 19:03 36.6 C 75 16 03/29/19 15:37 36.4 C L 93 H 16 03/29/19 11:50 36.6 C 80 18 106/71 03/29/19 08:00 81 BP Pulse Ox 03/30/19 03:55 118/72 97 03/29/19 23:47 105/64 96 03/29/19 22:20 03/29/19 19:03 130/78 95 03/29/19 15:37 111/69 96 03/29/19 11:50 94 03/29/19 08:00 Pain Intensity Bilateral Calf: Pain Intensity: 4 Right Shoulder: Pain Intensity: 4 Notes Mental Status: alert / awake / arousable and participated in evaluation Patient Amnestic to Procedure: Yes Pain: adequately controlled Airway Patency, RR, SpO2: stable & adequate BP & HR: stable & adequate Anesthetic Complications: no major complications apparent
[2019-03-30 08:04] LABS: BUN Creatinine Ratio 33.2 (10-20); Creatinine Clr Calc Pharmacy 36.1 ml/min; Est GFR (African American) 48.2; Est GFR (Non-African American) 41.6
[2019-03-30] MEDS: MOMETASONE FUROATE 14 PUFF/1 INHALER INH SCH (09:32)
[2019-03-30] MEDS: IPRATROPIUM BROMIDE/ALBUTEROL respimat INH INH PRN (09:33)
[2019-03-30] MEDS: DOXYCYCLINE HYCLATE 100 MG CAP PO SCH (09:33)
[2019-03-30] MEDS: FUROSEMIDE 20 MG TAB PO SCH ×2 (09:33→16:54)
[2019-03-30] MEDS: GABAPENTIN 300 MG CAP PO SCH ×2 (09:33→15:14)
[2019-03-30] MEDS: CHOLECALCIFEROL 1,000 UNITS TAB PO SCH (09:34)
[2019-03-30] MEDS: FERROUS SULFATE 325 MG TAB PO SCH (09:34)
[2019-03-30] MEDS: AMLODIPINE BESYLATE 5 MG TAB PO SCH (09:34)
[2019-03-30] MEDS: PANTOprazole 40 MG TAB PO SCH (09:34)
[2019-03-30] MEDS: predniSONE 5 MG TAB PO SCH (09:34)
[2019-03-30] MEDS: MIRABEGRON ER 25 MG TAB PO SCH (09:34)
[2019-03-30] MEDS: TOLTERODINE TARTRATE LA 4 MG CAPCR PO SCH (09:34)
[2019-03-30] MEDS: ATORVASTATIN 40 MG TAB PO SCH (09:34)
[2019-03-30] MEDS: CLOPIDOGREL BISULFATE 75 MG TAB PO SCH (09:34)
[2019-03-30] MEDS: allopurinoL 300 MG TAB PO SCH (09:34)
[2019-03-30] MEDS: MAGNESIUM OXIDE 400 MG TAB PO SCH ×2 (09:34→16:54)
[2019-03-30] MEDS: TAMSULOSIN HCL 0.4 MG CAP PO SCH (09:35)
[2019-03-30] MEDS: METOPROLOL SUCC 50MG EXT REL TAB PO SCH (09:35)
[2019-03-30] MEDS: TRAMADOL HCL 50 MG TABLET PO PRN (09:37)
--- NOTE | 2019-03-30 12:18 | Hospitalist Progress Note ---
Date of Service March 30, 2019 Assessment & Plan (1) Acute and chronic respiratory failure with hypoxia: (1) Acute and chronic respiratory failure with hypoxia: secondary to #2 back to baseline 2 L NC (2) Chronic diastolic heart failure: History of chronic left ventricular diastolic heart failure/severe valvular heart disease, aortic stenosis (+) volume overload, shortness of breath, lower extremity edema Cardiology consulted, given IV Lasix with good diuresis transitioned to Lasix PO- crea slightly elevated, repeat on ff up with PCP this week, monitor closely -- remains euvolemic (3) Aortic stenosis: Echocardiogram : shows grade 2 diastolic heart failure with severe aortic stenosis TAVR planned after leg infection resolved (4) Epistaxis -- held Heparin, Aspirin, Plavix -- s/p Cauterization by Dr. Lundberg -- Hg stable Plavix restarted, has intermittent blood tinged mucus today, will continue to monitor if with no recurrence of epistaxis, please resume ASA as outpatient (5) Hemoptysis -- CT scan: no mass/tumors noted likely from epistaxis if still persistent with control of epistaxis, pleae refer to Pulmonary for possible bronchoscopy (6) COPD (chronic obstructive pulmonary disease): On chronic prednisone therapy for psoriatic arthritis presented with COPD exacerbation due to pulmonary congestion cont Prednisone (7) Pneumonia: Chest x-ray shows bibasilar infiltrates. WBC 20,000 on prednisone Procalcitonin normal. on Doxycycline for leg ulcer Aspiration ruled out by Speech Therapy evaluation --no signs /symptoms of pneumonia on discharge (8) Elevated lactic acid level: Serum lactate 4.1. Repeat 2.8. Procalcitonin normal. Does not appear to be septic. Elevated lactate most likely due to hypoxia from pulmonary edema. (9) Hypertension: Continue metoprolol and amlodipine. (10) CKD (chronic kidney disease), stage III: Serum creatinine 1.5 monitor while on Lasix (9) Gout: Continue allopurinol. (10) Dyslipidemia: Continue atorvastatin. (11) Leg ulcer, left: Consulted Wound Care Nursing on Doxycycline continue ff up with [facility] (12) Chronic venous insufficiency: (13) Urinary incontinence: Chronic urinary urgency incontinence. (14) DVT prophylaxis: SQ heparin. (15) Discharge planning issues: d/c home with home health services had multiple discussions with patient re: recommendation for inpatient Rehab/SNF, going home may result to high risk for injuries/falls patient still adamant to go home, he is oriented , answers questions appropriately discussed with patient's daughters Gabbi and Amena they are all understanding, agreeable, and comfortable with the plan of care Subjective ff up for CHF seen resting in chair, comfortable not in distress states he feels fine overall had light blood tinged sputum x 2, much better as patient denies shortness of breath, cough, chest pain no other symptoms Review of Systems Review of Systems: All systems reviewed & are unremarkable except as noted in HPI & below Physical Exam Physical Exam: General- oriented x 2, not in distress, speaks in sentences with no effort or accessory muscle use Eyes- anicteric Neck- no JVD Lungs- clear breath sounds bilaterally, no crackles, no wheezing Heart- normal rate, regular rhythm; no murmurs Abdomen- normal bowel sounds, nondistended, soft, nontender Extremities- no pretibial edema, no calf tenderness Neuro- alert, oriented x 3; no gross focal neurologic deficits Skin- warm & dry Results & Data Vital Signs (Past 12 Hours) Vital Signs Temp Pulse Resp BP BP Pulse Ox 03/30/19 11:50 37.3 C 95 H 18 117/67 96 03/30/19 07:18 36.6 C 79 18 123/83 95 03/30/19 03:55 36.7 C 65 19 118/72 97
--- NOTE | 2019-03-30 14:51 | XRay Report ---
XR shoulder RT min 2V routine CLINICAL HISTORY: 88 years-old Male presenting with right shoulder pain, atraumatic, r/o fracture. TECHNIQUE: Internal rotation, external rotation, Grashey views of the right shoulder were obtained. COMPARISON: 02/28/2015. FINDINGS: Acromioclavicular and glenohumeral joints congruent. There is significant superior subluxation of the humeral head with severe effacement of the acromiohumeral interval likely indicating chronic rotator cuff tear. Significant underlying osteopenia. No acute fracture or malalignment. Mild degenerative c hanges at the AC joint. No radiographic soft tissue abnormality. IMPRESSION: 1. Allowing for osteopenia, no convincing evidence of acute osseous injury. 2. Chronic rotator cuff tear. 3. Mild degenerative changes of the AC joint. Electronically signed by: Rufino Fregoso M.D. 03/30/2019 2:50 PM
--- NOTE | 2019-03-30 18:06 | Discharge Summary ---
Date of Service March 30, 2019 Admission HPI Per Admitting Provider 88-year-old male followed by Dr. Albarran for Family Medicine. History of diastolic CHF, aortic stenosis, steroid-dependent COPD, and other problems noted below. Presented to the ED this morning with cough, shortness of breath, confusion. Seen in clinic earlier today and referred to the ED for further evaluation. He has been experiencing nonproductive cough for a while. Recently finished steroid taper and back on usual maintenance prednisone dose. No fever, chills, sweats. No angina or pleuritic chest pain. Chronic dependent edema. Upon arrival to the ED, he was found to be hypoxic. Ventilatory support with BiPAP was initiated. Received IV furosemide with improvement of symptoms. Admission Exam Per Admitting Provider Constitutional: WD/WN, vitals as above + ill appearing Eyes: PERRL, conjunctivae normal, anicteric sclerae ENMT: external ear and nose normal, oropharynx normal Mouth: + edentulous Neck: trachea midline, no thyromegaly Respiratory: + tachypneic Auscultation: + rales and + wheezes Cardiovascular: Rate/Rhythm: regular rate Heart Sounds: + gallop (non appreciated) and + murmur (IV/ systolic murmur at base); no cardiac rub Vessels: + JVD and normal carotid upstroke; + abnormal peripheral pulses (pedal pulses diminished) Extremities: normal capillary refill and + edema (1+ pretibial); no calf tenderness Gastrointestinal (Abdomen): normal bowel sounds, soft, nontender, no hepatosplenomegaly Musculoskeletal: Head/Neck/Chest: neck supple Extremities: strength 5/5 throughout; no cyanosis and no clubbing bilat Unna boots Skin: no rashes, warm and dry Neurologic: PERRL, EOMI no facial palsy no dysarthria or aphasia patellar DTR's 2/2 bilat Psychiatric: Orientation: alert and oriented x 3 Affect: euthymic affect Lymphatic: no cervical lymphadenopathy Principal Diagnosis ACUTE CHF EXACERBATION, EPISTAXIS Discharge Exam General- oriented x 3, not in distress, speaks in sentences with no effort or accessory muscle use Head- atraumatic Eyes- PERRL, EOMI, anicteric ENT- oropharynx clear Neck- supple, no JVD, no adenopathy, no thyromegaly; carotids +2/2, no bruits appreciated Lungs- clear to auscultation bilaterally, no rales/wheezes Heart- normal rate, regular rhythm;(+) holosystolic murmur, no gallop, no rub appreciated Abdomen- normal bowel sounds, nondistended, soft, nontender, no masses or hepatosplenomegaly Extremities- mild pretibial edema, no calf tenderness; peripheral pulses intact Neuro- alert, oriented x 3; CN 2-12 grossly intact; motor 5/5 bilaterally;sensation 100% on all extremities; no other gross focal neurologic deficits Skin- warm & dry Discharge Data Allergies Allergy/AdvReac Type Severity Reaction Status Date / Time morphine Allergy Unknown "out of it Verified 03/24/19 15:00 for days" colchicine AdvReac Mild GI upset Verified 03/24/19 15:00 Dickey And Derivatives AdvReac Unknown STOMACH Verified 03/24/19 15:00 ACHE FROM [employer]RUS JUICE tomato AdvReac Unknown HEADACHE Verified 03/24/19 15:00 FROM TOMATO JUICE Consultations 03/24/19 14:51 ED Decision to Admit Stat 03/24/19 18:01 Consult Cardiology Routine Consult Forming Machine Operator Routine 03/24/19 18:40 Consult Case Management - Discharge Planning Routine 03/27/19 07:31 Consult Otolaryngology (Head and Neck) Routine Procedures Performed Operation Date: 03/27/19 14:55 Actual Procedures p Nasal Bleed Endoscopic Cautery - Gricelda Lundberg MD Ordered Studies 03/26/19 17:44 CT chest wo con Routine CT SCAN OF THE CHEST WITHOUT IV CONTRAST CLINICAL HISTORY: Hemoptysis. COMPARISON STUDY: Chest x-ray dated 03/25/2019. Chest CT dated 11/11/2008. Abdominal CT dated 07/15/2018. TECHNIQUE: CT scan of the thorax was performed from the thoracic inlet to the upper abdomen. Images are reviewed in the axial, sagittal, and coronal planes. IV contrast was not administered for this examination as per the referring clinician. A dose lowering technique was utilized adhering to the principles of ALARA. The examination is degraded by motion artifact, as well as by streak artifact from the arms which could not be elevated above the chest. CT DOSE: 853.70 mGycm FINDINGS: Thyroid: Imaged portions of the thyroid gland are normal in size and attenuation. Thoracic aorta: There is atherosclerotic calcification of the thoracic aorta, wh ich is normal in caliber and demonstrates standard 3-vessel arch anatomy. Heart: The heart is enlarged and without pericardial effusion. The coronary arteries, aortic valve leaflets, and mitral annulus are densely calcified. Lungs and pleural spaces: Evaluation of the lung parenchyma is degraded by motion artifact. Emphysematous change is noted. There are small bilateral pleural effusions with bibasilar consolidation. Bilateral calcified pleural plaques are again noted, greatest at the lung bases. Layering secretions are noted in the trachea. Mediastinum: There are scattered subcentimeter mediastinal lymph nodes. These are not pathologically enlarged by size criteria. Brianna: Not well assessed without IV contrast. Axillae: There is no axillary lymphadenopathy. Upper abdomen: There is a large hiatal hernia, with the majority of the stomach located in the thoracic cavity. The kidneys are atrophic. Simple and complex cysts are again seen in the upper pole right kidney. There is gas within the right renal collecting system. 1.5 cm cyst is noted in the left lobe of the liver. Skeletal structures: The skeletal structures are osteopenic. Degenerative change and kyphoscoliosis are noted in the thoracic spine. No lytic or blastic bony lesions are seen. IMPRESSION: 1. Cardiomegaly and emphysema. 2. There are small pleural effusions with bibasilar consolidation. Correlate clinically for evidence of pneumonia/aspiration pneumonitis. 3. Gas is present within the right renal collecting system. Correlate clinically and with urinalysis for evidence of ascending urinary tract infection. 4. There is a large hiatal hernia, with the majority of the stomach located in the thoracic cavity. 5. 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 6. Additional findings as above. Hospital Course (1) Acute and chronic respiratory failure with hypoxia: (1) Acute and chronic respiratory failure with hypoxia: secondary to #2 back to baseline 2 L NC (2) Chronic diastolic heart failure: History of chronic left ventricular diastolic heart failure/severe valvular heart disease, aortic stenosis (+) volume overload, shortness of breath, lower extremity edema Cardiology consulted- Dr. Mg, given IV Lasix with good diuresis transitioned to Lasix PO- crea slightly elevated 1.49, repeat on ff up with PCP this week, monitor closely -- remains euvolemic (3) Aortic stenosis: Echocardiogram : shows grade 2 diastolic heart failure with severe aortic steno sis TAVR planned after leg infection resolved close follow up with Anesthesiology Resident (4) Epistaxis -- developed during admission -- held Heparin, Aspirin, Plavix -- s/p Cauterization by Dr. Lundberg -- Hg stable Plavix restarted, no recurrence of epistaxis if with no recurrence of epistaxis at home, please resume ASA as outpatient (5) Hemoptysis -- 1-2 episodes while admitted -- CT scan: no mass/tumors noted likely from epistaxis if still persistent with control of epistaxis, pleae refer to Pulmonary for possible bronchoscopy (6) COPD (chronic obstructive pulmonary disease): On chronic prednisone therapy for psoriatic arthritis presented with COPD exacerbation due to pulmonary congestion cont Prednisone (7) Pneumonia: Chest x-ray shows bibasilar infiltrates. WBC 20,000 on prednisone Procalcitonin normal. on Doxycycline for leg ulcer Aspiration ruled out by Speech Therapy evaluation --no signs /symptoms of pneumonia on discharge (8) Elevated lactic acid level: Serum lactate 4.1. Repeat 2.8. Procalcitonin normal. Does not appear to be septic. Elevated lactate most likely due to hypoxia from pulmonary edema. (9) Hypertension: Continue metoprolol and amlodipine. (10) CKD (chronic kidney disease), stage III: Serum creatinine 1.5 monitor while on Lasix (9) Gout: Continue allopurinol. (10) Dyslipidemia: Continue atorvastatin. (11) Leg ulcer, left: Consulted Wound Care Nursing on Doxycycline continue ff up with [facility] (12) Chronic venous insufficiency: (13) Urinary incontinence: Chronic urinary urgency incontinence. (14) DVT prophylaxis: SQ heparin given (15) Discharge planning issues: d/c home with home health services had multiple discussions with patient re: recommendation for inpatient Rehab/SNF, going home may result to high risk for injuries/falls patient still adamant to go home, he is oriented , answers questions appropriately discussed with patient's daughters Gabbi and Amena they are all understanding, agreeable, and comfortable with the plan of care Total Time Total Time Spent Total Time Spent (In Minutes): 50 minutes Discharge Plan Discharge Items Patient Disposition: Home - Home Health Services Reason For Visit: PNEUMONIA, HYPOXIA Discharge Diagnosis: CONGESTIVE HEART FAILURE EXACERBATION, EPISTAXIS Activity: As commented below Activity Comment: ALWAYS BE CAREFUL WITH AMBULATION Lifting: Wait until after follow-up appointment Exercise/Sports: Wait until after follow-up appointment Non-emergency contact: Primary Care Provider Call non-emergency contact if: you have any medication questions, your symptoms worsen and you have a fever Follow-up/Referrals: Melvin Mg DO [Anesthesiology Resident] - Patrick Albarran MD [Primary Care Provider] - 04/06/19 11:05 am Diet: Heart Healthy Addtl Attending Provider Instructions: PLEASE CALL PRIMARY CARE PHYSICIAN OR RETURN TO THE ER IMMEDIATELY IF WITH RECURRENCE OF WORSENING OF SYMPTOMS, INCLUDING SHORTNESS OF BREATH, LEG SWELLING, INCREASING COUGH/BLOOD IN THE SPUTUM, NOSEBLEED. PLEASE FOLLOW UP WITH DR. ALBARRAN NOTED ABOVE. PLEASE FOLLOW UP WITH LEAD ELECTRICIAN DR. MG IN 2-3 WEEKS. PLEASE CALL HIS OFFICE FOR AN APPOINTMENT. CONTACT INFORMATION OUTLINED ABOVE. PLEASE REVIEW YOUR NEW MEDICATION LIST NOTED BELOW. ALWAYS USE OXYGEN SUPPLEMENT. Call your Primary Care doctor if any of the following symptoms or problems start or get worse: Shortness of breath or difficulty breathing Wake up at night short of breath Chest pain Cough Swelling of your hands, feet, or legs More fatigued or tired with your normal activity Palpitations - sudden fast heart beats WEIGHT Weigh yourself every morning after using the bathroom. Use the same scale. Wear the same amount of clothing. Write your weight down on a chart. Call your Primary Care doctor if you gain more than 2-3 pounds in 1-2 days. MEDICATIONS Use this discharge instruction sheet for medication instructions. Take your medications at the time your doctor ordered. Do not skip a dose of your medicines. If you miss a dose of medicine, take it as soon as possible, but DO NOT DOUBLE A DOSE. Read your medicine information when you get home. Know all of the side effects of your medicine. If in doubt, ask your pharmacist Call your Primary Care doctor's office if you have any side effects. Be sure all of your doctors know what medicine and herbs you take (including cold, flu, and herbal medicine). Take the following with you to your follow-up doctor appointments: Weight Chart Medication List List of questions Do not drink excessive alcohol, beer or wine. Who to Call and When: Call 911 or go to the Emergency Room if: If at any time you feel your situation is an emergency You have tightness or pain in your chest that does not go away with rest or Nitroglycerin You are very short of breath even with rest. Pending Studies at Discharge: Yes Studies:: REPEAT BLOOD WORK (COMPLETE BLOOD COUNT AND BASIC METABOLIC PROFILE) ON FOLLOW UP WITH PRIMARY CARE PHYSICIAN NEXT WEEK. Stand-Alone Forms: My [facility] [place] [facility], Smoking Cessation Medications and DC Order Prescriptions: New furosemide 20 mg Tablet 20 mg PO [id number] 30 Days Qty: 30 RF: 2 Continued doxycycline monohydrate 100 mg capsule 100 mg PO BID Qty: 60 RF: 4 atorvastatin 40 mg tablet 40 mg PO DAILY Qty: 90 RF: 0 clopidogrel 75 mg tablet 75 mg PO DAILY Qty: 30 RF: 0 allopurinol 300 mg tablet 300 mg PO DAILY Qty: 90 RF: 0 metoprolol succinate 50 mg tablet extended release 24 hr 50 mg PO DAILY RF: 0 tolterodine 4 mg capsule,extended release 24hr 4 mg PO DAILY RF: 0 ondansetron HCl [Zofran] 4 mg Tablet 4 mg PO Q8H PRN (Reason: Nausea And Vomiting) RF: 0 prednisone 5 mg Tablet 5 mg PO DAILY RF: 0 amlodipine 2.5 mg Tablet 2.5 mg PO DAILY RF: 0 tramadol 50 mg Tablet 50 - 100 mg PO Q6H PRN (Reason: Pain) RF: 0 pantoprazole 20 mg Tablet,Delayed Release (Dr/Ec) 40 mg PO DAILY RF: 0 tamsulosin 0.4 mg capsule 0.4 mg PO DAILY RF: 0 ferrous sulfate 325 mg (65 mg iron) Tablet 325 mg PO DAILY RF: 0 gabapentin 300 mg Capsule 300 mg PO TID RF: 0 Santyl 250 unit/gram ointment 1 applic TOPICAL DIRECTED PRN (Reason: Skin Irritation) RF: 0 dutasteride 0.5 mg capsule 0.5 mg PO DAILY RF: 0 Asmanex Twisthaler 220 mcg/ actuation (120) Aerosol Powdr Breath Activated 2 inh INHALATION BID RF: 0 Men's Daily Multivit-Mineral 0.4-600 mg-mcg Tablet 1 tab PO DAILY RF: 0 Myrbetriq 50 mg tablet extended release 24 hr 50 mg PO DAILY RF: 0 Combivent Respimat 20-100 mcg/actuation Mist 1 puff INHALATION QID PRN (Reason: Shortness Of Breath Or Wheezing) RF: 0 vitamin B complex [Super B-50 Complex] Capsule 1 cap PO DAILY RF: 0 dutasteride [Avodart] 0.5 mg Capsule 0.5 mg PO DAILY RF: 0 cholecalciferol (vitamin D3) [Vitamin D3] 2,000 unit Tablet 2,000 unit PO DAILY RF: 0 magnesium oxide 400 mg magnesium Tablet 400 mg PO BID RF: 0 Discontinued aspirin [Aspir-81] 81 mg Tablet,Delayed Release (Dr/Ec) 81 mg PO DAILY RF: 0 Discharge Orders: Discharge Order (Routine); Ordered 03/30/19 Ordered By: Blake Silverman Admission Data Admit Date/Time: 03/24/19 15:34 Attending Provider: Blake Silverman Admit Provider: Micah Rivas Primary Care Provider: Patrick Albarran Other Providers: Micah Rivas ; Melvin Mg ; Morales Sweeney ; [place] ; Roro Wasserman ; Gricelda Lundberg How
== END 2019-03-30 18:51 | disposition home health service (06) | DRG 280 ==
LOC: ED 13:06 → 1E 15:34 → SUATTDRO 15:34 → 1E 17:09 → 2S 03-25 00:04

== ENCOUNTER 2020-01-11 09:45 | Inpatient (IN) ==
[2020-01-11] MEDS ORDERED: SODIUM CHLORIDE 0.9% 1000ML 1,000 ML IV SCH (10:15)
[2020-01-11] MEDS ORDERED: METOPROLOL SUCC 50MG EXT REL TAB PO STA (10:25)
--- NOTE | 2020-01-11 10:25 | Emergency Department Note ---
Impression & Plan Pneumonia, Dehydration, Diarrhea ED Provider Note NAME: BAILEE COTTON AGE: 89 SEX: M : 1930 ARRIVES VIA: Walk-In INFORMANT: Patient, ED PROVIDER(S): Paresh Azevedo MD Chief Complaint: Weakness, poor appetite, cough HPI: Patient does present from home and does live with his son. His daughter is present at the bedside. The patient has had approximate 5 weeks of diarrhea symptoms weakness and fatigue. The patient has not experienced associated poor appetite. Decreased urination with associated hesitancy. The patient denies any blood in stools. The patient denies chest pains but does have occasional shortness of breath and associated productive cough. Current non-smoker. Patient denies any recent travel. No sick contacts no stream or well water recent antibiotic use. No one else at home has similar symptoms. The patient does suffer from occasional peripheral neuropathy which is chronic in nature in his lower extremities. The patient did not take his morning medications. ROS: See HPI for pertinent positives and negatives. A total of 10 systems were reviewed and otherwise negative. Past medical history: See below Surgical history: See below Social history: See below Physical Exam: GENERAL: Tired in appearance, wearing a mask. NAD, non-toxic. EYE EXAM: Normal conjunctiva. PERRL, no anisocoria and EOM's grossly intact w/o pain. NECK: Supple, no nuchal rigidity, no adenopathy, non-tender. No signs of meningismus. LUNGS: Clear to auscultation. Normal chest wall mechanics. HEART: Tachycardic and regular, no MRG. ABDOMEN: Abdomen soft, non-tender, normo-active bowel sounds, no masses, no rebound or guarding. BACK: No CVA TTP. SKIN: No rashes and no bruising. UPPER EXTREMITIES: Upper extremities are grossly normal. LOWER EXTREMITIES: Grossly normal, no edema. NEURO EXAM: A&O x3, cranial nerves II-XII grossly intact, normal speech, moves all 4 extremities on command w/o issue. Differential diagnoses: Infection, dehydration, metabolic abnormality, hypo/hyperglycemia, electrolyte disturbance, anemia, hypoxia, cardiac sources, intracerebral event, toxicologic, neurologic, as well as other pathologies. Course: Patient was seen and evaluated the bedside. Full history physical exam was performed. EKG: Indication: Tachycardia, weakness Fairly regular monomorphic narrow complex tachycardia, rate of 162, left axis deviation, mild depressions in the lateral leads. Imaging Studies: Radiology results as stated below per my review in the radiologist's interpre tation: XR chest 1V portable CLINICAL HISTORY: SEPSIS COMPARISON STUDY: 08/24/2019 FINDINGS: The heart is enlarged. There is a large hiatal hernia. There are pleural calcifications present. There are scattered calcified granulomas. There is interval development of a right lower lung zone airspace opacity suspicious for pneumonia. Films subsequent to treatment are recommended in follow-up.[ IMPRESSION: 1. Right lower lung zone airspace opacity suspicious for pneumonia. Films subsequent to treatment are recommended in follow-up 2. Additional chronic findings similar to the preceding study ACT 112: Negative or not required by law. Electronically signed by: Naeem Mckeon M.D. 01/11/2020 10:41 AM Dictated: 01/11/20 1040 Transcribed: 01/11/20 1040 Cardiac monitoring: An order was placed for continuous cardiac monitoring. The monitor shows a rate of 120 with regular rhythm. MDM: Patient was seen due to concern for weakness decreased p.o. intake and diarrheal symptoms. Patient did have blood work completed. Patient was ordered his home dose of metoprolol as he does take this on a regular basis but did not take it this morning. The patient's blood work shows a mild white count of 11.2 mild anemia at 11. Platelet count is unremarkable. Kidney function essentially at baseline with creatinine of 1.4. The patient's troponin is detectable but not elevated. EKG did show associated tachycardia. This has improved immensely with IV fluids and his home dose of metoprolol. The patient did go from the 160s and is currently in the low 100s. Additional IV fluids were ordered. X-ray does show concern for pneumonia. Rocephin initially ordered the patient already did have blood cultures. I did discuss with the's findings with the patient and the patient's family member. I did discuss that we would likely add additional antibiotics but given the patient's prolonged QTC and diarrheal issues wanted to discuss with the hospitalist first. Patient was admitted to the [facility] medicine service. Additional antibiotics deferred to the inpatient team after discussing with Dr. Galvan. Past Med/Surg History Medical History MAXI (acute kidney injury) Most recent BMP WNL 08/24/19 Amputation of toe LEFT/RT SECOND TOE Anemia Aortic stenosis Per echo 03/2019 -- SEVERE. FCO 0.61cm, mean gradient 38.2. Symptomatic, dyspnea (but also has COPD). Following with Dr. Huntley ([facility]) with serial echos q 6mo to evaluate for possible TAVR. Last office visit was 02/05/19, was to f/u in 6 months with new echo but not done due to covid19 pandemic. Did have telehealth visit 09/16 with regular rate examiner. Cardio aware of upcoming toe amputation. BPH (benign prostatic hypertrophy) Chronic diastolic heart failure Chronic venous insufficiency CKD (chronic kidney disease), stage III COPD (chronic obstructive pulmonary disease) Dyslipidemia Dysphagia Elevated PSA Esophageal dysmotility GERD (gastroesophageal reflux disease) Gout H/O atrial flutter "occurred postoperatively in 01/2014, converted to sinus rhythm with IV diltiazem" H/O diastolic dysfunction Grade II per 03/2019 echo Hiatal hernia History of duodenal ulcer History of heart valve insufficiency Mild TR History of kidney stones Hypertension Neuropathy Nocturnal hypoxemia On home oxygen therapy WEARS O2 AT 2L AT HS Osteoarthritis Osteoporosis Peripheral vascular disease s/p angioplasty of right posterior tibial artery Psoriatic arthritis Renal lesion Stage II pressure ulcer of ankle Tobacco abuse Toe osteomyelitis Umbilical hernia Urinary incontinence Urinary retention Venous stasis ulcer Volvulus of stomach Surgical History Family history of reaction to anesthesia DAUGHTER-NAUSEA/VOMITTING History of angioplasty of peripheral vessel History of cardiac cath 1 YEAR AGO AT [facility] History of cataract surgery RT/LEFT History of colonoscopy History of esophagogastroduodenoscopy (EGD) History of lithotripsy History of lumbar fusion History of tooth extraction Status post endovenous radiofrequency ablation of saphenous vein Family History Mother Colorectal cancer Sister Breast cancer Lung cancer Father Parkinson disease Brother Nephrolithiasis Social History Smoking Status: Former smoker Tobacco Type: Cigarettes Second Hand Exposure: No; Hx Alcohol Use: No Hx Substance Use: No Preferred Language: Jordanian Communication Ability: Effective Visual Impairment: Limited Hearing Ability: Normal Custom Ski Maker Required: No Beliefs That Will Affect Care: None marital status: / Current Living Situation: Family Current Living Situation Comment: son lives with him current occupational status: retired Other Information That Helps Us Care for You: No other: walks with walker Feels Safe at Home: Yes Safety Concerns: Feels Safe At This Time Assistive Devices: CPAP, Glasses, Oxygen - at Night and Walker Allergies Allergies Allergy/AdvReac Type Severity Reaction Status Date / Time morphine Allergy Unknown "out of it Verified 01/11/20 11:32 for days" [employer] AdvReac Intermediate STOMACH Verified 01/11/20 11:32 ACHE FROM [employer] tomato AdvReac Intermediate HEADACHE Verified 01/11/20 11:32 FROM [place]OMATO JUICE colchicine AdvReac Mild GI upset Verified 01/11/20 11:32 Home Meds Home Medications Medication Instructions Recorded Confirmed allopurinol 300 mg tablet 300 mg PO QAM #90 tab 01/05/19 01/11/20 atorvastatin 40 mg tablet 40 mg PO QAM #90 tab 01/05/19 01/11/20 clopidogrel 75 mg tablet 75 mg PO QAM #30 tab 01/05/19 01/11/20 Asmanex Twisthaler 2 inh INHALATION BID 03/24/19 01/11/20 Combivent Respimat 1 puff INHALATION QID PRN 03/24/19 01/11/20 Men's Daily Multivit-Mineral 1 tab PO DAILY 03/24/19 01/11/20 cholecalciferol (vitamin D3) 2,000 unit PO PM 03/24/19 01/11/20 [Vitamin D3] gabapentin 300 - 600 mg PO TID PRN 03/24/19 01/11/20 magnesium oxide 400 mg PO BID 03/24/19 01/11/20 metoprolol succinate 50 mg PO QAM 03/24/19 01/11/20 ondansetron HCl [Zofran] 4 mg PO Q8H PRN 03/24/19 01/11/20 pantoprazole 40 mg PO QAM 03/24/19 01/11/20 prednisone 5 mg PO QAM 03/24/19 01/11/20 tramadol 50 - 100 mg PO Q6H PRN 03/24/19 01/11/20 vitamin B complex [Super B-50 1 cap PO PM 03/24/19 01/11/20 Complex] furosemide 20 mg tablet 20 mg PO UD tab 05/05/19 01/11/20 doxycycline monohydrate 100 mg PO BID 08/24/19 01/11/20 amlodipine 2.5 mg PO QAM 09/17/19 01/11/20 ferrous sulfate 325 mg PO DAILY 09/17/19 01/11/20 levothyroxine 50 mcg PO QAM 01/11/20 01/11/20 Previous Rx's Medication Instructions Recorded dutasteride 0.5 mg capsule 0.5 mg PO DAILY #90 cap 10/15/19 mirabegron 50 mg tablet,extended 50 mg PO DAILY #90 tab 12/07/19 release 24 hr tamsulosin 0.4 mg capsule 0.4 mg PO QPM #90 cap 12/07/19 tolterodine 4 mg capsule,extended 4 mg PO DAILY #90 cap 12/07/19 release 24 hr Results & Data (ED) Vital Signs Vital Signs - 24 hr 01/11/20 09:45 01/11/20 09:56 01/11/20 10:04 Temperature 36.4 C L Temperature Source Oral Pulse Rate 128 H Pulse Rate from SpO2 Sensor Respiratory Rate 20 Respiratory Effort / Characteristics Non-Labored Respiratory Depth Normal Blood Pressure 97/61 L Blood Pressure Mean 73 Pulse Oximetry 93 92 93 Oxygen Delivery Method Room Air Room Air Room Air Oxygen Flow Rate Sepsis Recent Fever Within 48 Hours No Sepsis New/Unexplained Change in Mental Status N/A Sepsis Action Taken by Nursing No Action Required 01/11/20 10:09 01/11/20 10:30 01/11/20 10:34 Temperature Temperature Source Pulse Rate 146 H 126 H Pulse Rate from SpO2 Sensor 141 H 128 H Respiratory Rate 26 H 22 Respiratory Effort / Characteristics Spontaneous Respiratory Depth Blood Pressure 98/75 L 97/65 L Blood Pressure Mean 84 68 Pulse Oximetry 91 95 Oxygen Delivery Method Oxygen Flow Rate Sepsis Recent Fever Within 48 Hours Sepsis New/Unexplained Change in Mental Status Sepsis Action Taken by Nursing 01/11/20 10:37 01/11/20 10:42 01/11/20 10:45 Temperature Temperature Source Pulse Rate 124 H 139 H 134 H Pulse Rate from SpO2 Sensor 127 H 125 H 126 H Respiratory Rate 33 H 31 H 26 H Respiratory Effort / Characteristics Respiratory Depth Blood Pressure 116/72 118/64 101/82 Blood Pressure Mean 90 82 94 Pulse Oximetry 93 92 94 Oxygen Delivery Method Oxygen Flow Rate Sepsis Recent Fever Within 48 Hours Sepsis New/Unexplained Change in Mental Status Sepsis Action Taken by Nursing 01/11/20 11:04 01/11/20 11:15 01/11/20 11:30 Temperature Temperature Source Pulse Rate 104 H 104 H Pulse Rate from SpO2 Sensor 108 H 105 H Respiratory Rate 31 H 38 H Respiratory Effort / Characteristics Non-Labored Respiratory Depth Blood Pressure 116/74 114/75 Blood Pressure Mean 84 90 Pulse Oximetry 92 92 Oxygen Delivery Method Oxygen Flow Rate Sepsis Recent Fever Within 48 Hours Sepsis New/Unexplained Change in Mental Status Sepsis Action Taken by Nursing 01/11/20 11:34 01/11/20 11:45 01/11/20 12:00 Temperature Temperature Source Pulse Rate 113 H 123 H Pulse Rate from SpO2 Sensor 115 H 114 H Respiratory Rate 29 H 28 H Respiratory Effort / Characteristics Non-Labored Respiratory Depth Blood Pressure 105/70 102/79 Blood Pressure Mean 82 80 Pulse Oximetry 90 91 Oxygen Delivery Method Oxygen Flow Rate Sepsis Recent Fever Within 48 Hours Sepsis New/Unexplained Change in Mental Status Sepsis Action Taken by Nursing 01/11/20 12:04 01/11/20 12:15 01/11/20 12:30 Temperature Temperature Source Pulse Rate 103 H 108 H Pulse Rate from SpO2 Sensor 104 H 105 H Respiratory Rate 30 H 26 H Respiratory Effort / Characteristics Non-Labored Respiratory Depth Blood Pressure 126/82 109/82 Blood Pressure Mean 103 84 Pulse Oximetry 95 96 Oxygen Delivery Method Nasal Cannula Nasal Cannula Oxygen Flow Rate 2 2 Sepsis Recent Fever Within 48 Hours Sepsis New/Unexplained Change in Mental Status Sepsis Action Taken by Nursing 01/11/20 12:34 01/11/20 12:45 01/11/20 13:01 Temperature Temperature Source Pulse Rate 114 H 102 H Pulse Rate from SpO2 Sensor 106 H 110 H Respiratory Rate 21 18 Respiratory Effort / Characteristics Non-Labored Respiratory Depth Blood Pressure 111/78 104/71 Blood Pressure Mean 80 77 Pulse Oximetry 92 95 Oxygen Delivery Method Nasal Cannula Oxygen Flow Rate 2 Sepsis Recent Fever Within 48 Hours Sepsis New/Unexplained Change in Mental Status Sepsis Action Taken by Nursing 01/11/20 13:15 01/11/20 13:33 01/11/20 13:55 Temperature Temperature Source Pulse Rate 106 H 104 H Pulse Rate from SpO2 Sensor 115 H 106 H 112 H Respiratory Rate 20 20 20 Respiratory Effort / Characteristics Respiratory Depth Blood Pressure 127/78 114/81 102/67 Blood Pressure Mean 89 89 72 Pulse Oximetry 93 91 97 Oxygen Delivery Method Oxygen Flow Rate Sepsis Recent Fever Within 48 Hours Sepsis New/Unexplained Change in Mental Status Sepsis Action Taken by Nursing 01/11/20 14:00 01/11/20 14:15 01/11/20 14:30 Temperature Temperature Source Pulse Rate 109 H 96 H Pulse Rate from SpO2 Sensor 115 H 97 H 105 H Respiratory Rate Respiratory Effort / Characteristics Respiratory Depth Blood Pressure 109/69 111/77 104/73 Blood Pressure Mean 78 89 80 Pulse Oximetry 97 97 97 Oxygen Delivery Method Oxygen Flow Rate Sepsis Recent Fever Within 48 Hours Sepsis New/Unexplained Change in Mental Status Sepsis Action Taken by Nursing 01/11/20 15:11 Temperature Temperature Source Pulse Rate Pulse Rate from SpO2 Sensor Respiratory Rate Respiratory Effort / Characteristics Respiratory Depth Blood Pressure Blood Pressure Mean Pulse Oximetry Oxygen Delivery Method Room Air Oxygen Flow Rate Sepsis Recent Fever Within 48 Hours Sepsis New/Unexplained Change in Mental Status Sepsis Action Taken by [facility] Medications Current Medication List: was personally reviewed by me Laboratory Data Attestation: I reviewed the patient's lab results. Result diagrams: 01/11/20 10:19 01/11/20 10:19 Lab Results 01/11/20 01/11/20 01/11/20 Range/Units 10:19 10:19 10:19 WBC 11.20 H (4.8-10.8) K/uL RBC 4.44 L (4.7-6.1) M/uL Hgb 11.5 L (14.0-18.0) g/dL Hct 37.5 L (42-52) % MCV 84.5 (80-100) fL MCH 25.9 (25-34) pg MCHC 30.7 L (32-36) g/dL RDW Std Deviation 49.2 H (36.4-46.3) fL RDW Coeff of Morris 15.9 H (11.5-14.5) % Plt Count 185 (130-400) K/uL MPV 9.7 (7.4-10.4) fL Immature Gran % (Auto) 0.3 % Neut % (Auto) 82.4 % Lymph % (Auto) 8.7 % Clayton % (Auto) 8.1 % Eos % (Auto) 0.4 % Baso % (Auto) 0.1 % Neut # (Auto) 9.23 H (1.4-6.5) K/uL Lymph # (Auto) 0.97 L (1.2-3.4) K/uL Clayton # (Auto) 0.91 H (0.11-0.59) K/uL Eos # (Auto) 0.05 (0-0.5) K/uL Baso # (Auto) 0.01 (0-0.2) K/uL Immature Gran # (Auto) 0.03 H (0.00-0.02) K/uL PT 11.1 (9.0-12.0) Seconds INR 1.1 (0.9-1.1) APTT 31.8 H (21.0-31.0) Seconds PTT Ratio 1.1 Sodium 139 (136-145) mmol/L Potassium 3.7 (3.5-5.1) mmol/L Chloride 104 (98-107) mmol/L Carbon Dioxide 25 (21-32) mmol/L Anion Gap 10.0 (3-11) BUN 20 H (7-18) mg/dl Creatinine 1.43 H (0.6-1.4) mg/dl Est Cr Clr Drug Dosing Not Reportable Est GFR ( Amer) 50.3 Est GFR (Non-Af Amer) 43.4 BUN/Creatinine Ratio 14.2 (10-20) Glucose 142 H (70-99) mg/dl Lactate (0.4-2.0) mmol/L Calcium 8.7 (8.5-10.1) mg/dl Magnesium 2.2 (1.8-2.4) mg/dl Total Bilirubin 1.2 H (0.2-1) mg/dl AST 17 (15-37) U/L ALT 15 (12-78) U/L Alkaline Phosphatase 102 (45-117) U/L Troponin I 0.040 (0-0.045) ng/ml Total Protein 7.3 (6.4-8.2) gm/dl Albumin 2.9 L (3.4-5.0) gm/dl Globulin 4.4 H (2.5-4.0) gm/dl Albumin/Globulin Ratio 0.7 L (0.9-2) Procalcitonin (0-0.5) ng/ml 01/11/20 01/11/20 Range/Units 10:19 11:00 WBC (4.8-10.8) K/uL RBC (4.7-6.1) M/uL Hgb (14.0-18.0) g/dL Hct (42-52) % MCV (80-100) fL MCH (25-34) pg MCHC (32-36) g/dL RDW Std Deviation (36.4-46.3) fL RDW Coeff of Morris (11.5-14.5) % Plt Count (130-400) K/uL MPV (7.4-10.4) fL Immature Gran % (Auto) % Neut % (Auto) % Lymph % (Auto) % Clayton % (Auto) % Eos % (Auto) % Baso % (Auto) % Neut # (Auto) (1.4-6.5) K/uL Lymph # (Auto) (1.2-3.4) K/uL Clayton # (Auto) (0.11-0.59) K/uL Eos # (Auto) (0-0.5) K/uL Baso # (Auto) (0-0.2) K/uL Immature Gran # (Auto) (0.00-0.02) K/uL PT (9.0-12.0) Seconds INR (0.9-1.1) APTT (21.0-31.0) Seconds PTT Ratio Sodium (136-145) mmol/L Potassium (3.5-5.1) mmol/L Chloride (98-107) mmol/L Carbon Dioxide (21-32) mmol/L Anion Gap (3-11) BUN (7-18) mg/dl Creatinine (0.6-1.4) mg/dl Est Cr Clr Drug Dosing Est GFR ( Amer) Est GFR (Non-Af Amer) BUN/Creatinine Ratio (10-20) Glucose (70-99) mg/dl Lactate 1.5 (0.4-2.0) mmol/L Calcium (8.5-10.1) mg/dl Magnesium (1.8-2.4) mg/dl Total Bilirubin (0.2-1) mg/dl AST (15-37) U/L ALT (12-78) U/L Alkaline Phosphatase (45-117) U/L Troponin I (0-0.045) ng/ml Total Protein (6.4-8.2) gm/dl Albumin (3.4-5.0) gm/dl Globulin (2.5-4.0) gm/dl Albumin/Globulin Ratio (0.9-2) Procalcitonin 0.15 (0-0.5) ng/ml Administered Medications Discontinued Medications Sodium Chloride (Nss 1000ml) 1,000 mls @ 999 mls/hr IV .Q1H1M DIOMEDES Stop: 01/11/20 11:15 Last Infusion: 01/11/20 12:17 Dose: 0 mls/hr Documented by: [id number] Admin: 01/11/20 10:38 Dose: 999 mls/hr Documented by: [id number] Ceftriaxone Sodium (Rocephin) 2,000 mg in 70 mls @ 140 mls/hr IV NOW STA Stop: 01/11/20 11:24 Last Infusion: 01/11/20 13:32 Dose: 0 mls/hr Documented by: [id number] Admin: 01/11/20 12:37 Dose: 140 mls/hr Documented by: [id number] Metoprolol Succinate (Metoprolol Succ 50mg Ext Rel Tab) 50 mg PO NOW STA Stop: 01/11/20 10:26 Last Admin: 01/11/20 10:43 Dose: 50 mg Documented by: [id number] Discharge Plan Visit Data Chief Complaint: Weakness Stated Complaint: SOB,WEAK,NOT EATING OR DRINKING WELL,DIARRHEA ED Provider: Paresh Azevedo Discharge Problem: Pneumonia, Dehydration, Diarrhea Patient Disposition: Admitted As Inpatient Discharge Instructions Interventions: ED Discharge Assessment Last Done: 01/11/20 15:11 Forms Stand Alone Forms: My [facility] Prescriptions Prescriptions: No Action furosemide 20 mg tablet 20 mg PO UD RF: 0 dutasteride [Avodart] 0.5 mg capsule 0.5 mg PO DAILY Qty: 90 RF: 1 tolterodine 4 mg capsule,extended release 24hr 4 mg PO DAILY Qty: 90 RF: 1 Myrbetriq 50 mg tablet extended release 24 hr 50 mg PO DAILY Qty: 90 RF: 1 tamsulosin 0.4 mg capsule 0.4 mg PO QPM Qty: 90 RF: 1 atorvastatin 40 mg tablet 40 mg PO QAM Qty: 90 RF: 0 clopidogrel 75 mg tablet 75 mg PO QAM Qty: 30 RF: 0 allopurinol 300 mg tablet 300 mg PO QAM Qty: 90 RF: 0 metoprolol succinate 50 mg tablet extended release 24 hr 50 mg PO QAM RF: 0 ondansetron HCl [Zofran] 4 mg Tablet 4 mg PO Q8H PRN (Reason: Nausea And Vomiting) RF: 0 prednisone 5 mg Tablet 5 mg PO QAM RF: 0 tramadol 50 mg Tablet 50 - 100 mg PO Q6H PRN (Reason: Pain) RF: 0 pantoprazole 20 mg Tablet,Delayed Release (Dr/Ec) 40 mg PO QAM RF: 0 gabapentin 300 mg Capsule 300 - 600 mg PO TID PRN (Reason: Pain) RF: 0 Asmanex Twisthaler 220 mcg/ actuation (120) Aerosol Powdr Breath Activated 2 inh INHALATION BID RF: 0 Men's Daily Multivit-Mineral 0.4-600 mg-mcg Tablet 1 tab PO DAILY RF: 0 Combivent Respimat 20-100 mcg/actuation Mist 1 puff INHALATION QID PRN (Reason: Shortness Of Breath Or Wheezing) RF: 0 vitamin B complex [Super B-50 Complex] Capsule 1 cap PO PM RF: 0 cholecalciferol (vitamin D3) [Vitamin D3] 2,000 unit Tablet 2,000 unit PO PM RF: 0 magnesium oxide 400 mg magnesium Tablet 400 mg PO BID RF: 0 amlodipine 2.5 mg Tablet 2.5 mg PO QAM RF: 0 ferrous sulfate 325 mg (65 mg iron) Tablet 325 mg PO DAILY RF: 0 levothyroxine 50 mcg Tablet 50 mcg PO QAM RF: 0 doxycycline monohydrate 100 mg capsule 100 mg PO BID RF: 0 Referrals Referrals: Patrick Albarran MD [Primary Care Provider] - Discharge Problem: Pneumonia Qualifiers: Pneumonia type: due to unspecified organism Laterality: right Lung location: lower lobe of lung Qualified Code(s): J18.9 - Pneumonia, unspecified organism Diarrhea Qualifiers: Diarrhea type: unspecified type Qualified Code(s): R19.7 - Diarrhea, unspecified
[2020-01-11 10:29] LABS: Basophils # (auto) 0.01 K/uL (0-0.2); Basophils % (auto) 0.1 %; Eosinophils # (auto) 0.05 K/uL (0-0.5); Eosinophils % (auto) 0.4 %; Hematocrit (blood only) 37.5 % (42-52); Hemoglobin 11.5 g/dL (14.0-18.0); Immature Granulocytes # (auto) 0.03 K/uL (0.00-0.02); Immature Granulocytes % (auto) 0.3 %; Lymphocytes # (auto) 0.97 K/uL (1.2-3.4); Lymphocytes % (auto) 8.7 %; Mean Corpuscular Hemoglobin 25.9 pg (25-34); Mean Corpuscular Hgb Conc 30.7 g/dL (32-36); Mean Corpuscular Volume 84.5 fL (80-100); Mean Platelet Volume 9.7 fL (7.4-10.4); Monocytes # (auto) 0.91 K/uL (0.11-0.59); Monocytes % (auto) 8.1 %; Neutrophils # (auto) 9.23 K/uL (1.4-6.5); Neutrophils % (auto) 82.4 %; Platelet Count 185 K/uL (130-400); RDW Coefficient of Variation 15.9 % (11.5-14.5); RDW Standard Deviation 49.2 fL (36.4-46.3); Red Blood Count 4.44 M/uL (4.7-6.1)
--- NOTE | 2020-01-11 10:42 | XRay Report ---
XR chest 1V portable CLINICAL HISTORY: SEPSIS COMPARISON STUDY: 08/24/2019 FINDINGS: The heart is enlarged. There is a large hiatal hernia. There are pleural calcifications pre sent. There are scattered calcified granulomas. There is interval development of a right lower lung z one airspace opacity suspicious for pneumonia. Films subsequent to treatment are recommended in follo w-up.[ IMPRESSION: 1. Right lower lung zone airspace opacity suspicious for pneumonia. Films subsequent to treatment are recommended in follow-up 2. Additional chronic findings similar to the preceding study ACT 112: Negative or not required by law. Electronically signed by: Naeem Mckeon M.D. 01/11/2020 10:41 AM
[2020-01-11 10:53] LABS: Alanine Aminotransferase 15 U/L (12-78); Albumin Level 2.9 gm/dl (3.4-5.0); Aspartate Aminotransferase 17 U/L (15-37); BUN Creatinine Ratio 14.2 (10-20); Blood Urea Nitrogen 20 mg/dl (7-18); Calcium 8.7 mg/dl (8.5-10.1); Carbon Dioxide 25 mmol/L (21-32); Chloride 104 mmol/L (98-107); Est GFR (African American) 50.3; Est GFR (Non-African American) 43.4; Glucose 142 mg/dl (70-99); INR 1.1 (0.9-1.1); Magnesium 2.2 mg/dl (1.8-2.4); Partial Thromboplastin Ratio 1.1; Partial Thromboplastin Time 31.8 Seconds (21.0-31.0); Potassium 3.7 mmol/L (3.5-5.1); Prothrombin Time 11.1 Seconds (9.0-12.0); Sodium 139 mmol/L (136-145)
[2020-01-11] MEDS ORDERED: cefTRIAXone SODIUM 2,000 MG/70 ML BAG IV STA (10:55)
[2020-01-11 10:58] LABS: Albumin Globulin Ratio 0.7 (0.9-2); Alkaline Phosphatase 102 U/L (45-117); Bilirubin,Total 1.2 mg/dl (0.2-1); Globulin 4.4 gm/dl (2.5-4.0); Total Protein 7.3 gm/dl (6.4-8.2)
--- NOTE | 2020-01-11 12:08 | History & Physical Report ---
Date of Service January 11, 2020 Assessment & Plan (1) Pneumonia: (2) Leukocytosis: (3) Dehydration: (4) Diarrhea: (5) Chronic venous insufficiency: (6) Chronic diastolic heart failure: (7) Peripheral arterial occlusive disease: Rocephin has been started in the emergency room will continue that daily, nebulizers, continue outpatient medications where appropriate, IV fluids, PT eval and treat, inpatient status will likely be here more than 48 hours. DVT prophylaxis with subcu heparin. ROS-No Headache, No Visual Changes, No Nausea, No Vomiting, No Fever, No Chills, No Neck Pain or Stiffness, No Chest Pain, No Palpitations, +SOB, +CROW, +Cough, No Sputum, No Wheezing, No Abdominal Pain, +Diarrhea, No Hematemesis, No Hemoptysis, +Weight Loss, No Flank pain, No Melena, No Hematochezia, No Frequency, +Urgency/Hesitancy, No Burning, No Hematuria, No Rashes, No Diaphoresis. Appetite is Poor Physical Exam Gen-AAO x 3, NAD, Afebrile, weak, pleasant Head-NCAT, EOMI, PERRLA, Anicteric Sclera, No Posterior Pharyngeal Erythema Neck-Supple, No JVD, No Thyromegaly, No Masses, No LAD, No Bruits Lungs-Clear to Auscultation Bilaterally, No Rales, No Rhonchi, No Wheezing, No Crepitus Chest-No S4, +S1, +S2, No S3, No Murmurs, No Rubs, No Gallops, No Ectopy Abdomen-Soft, Bowel Sounds Present, Non Tender, Non Distended, No Hepatomegaly, No Splenomegaly, No Palpable Masses, No Rebound, No Rigidity, No Guarding Musculoskeletal-Full Range of Motion Bilaterally, No CVAT Extremities-No Cyanosis, No Clubbing, No Edema Nuero-Cranial Nerves II-XII grossly intact, Motor WNL, DTRs WNL, Strength WNL, Non Focal Psych-Normal Mood Admission and Anticipated Discharge Date Anticipated date of discharge: 01/14/20 History of Present Illness Chief Complaint: Weakness, Poor Appetite, Weight Loss, Diarrhea, SOB, and cough Primary Care Provider: Patrick Albarran MD 89-year-old male with a past medical history of acute kidney injury, anemia, aortic stenosis, benign prostatic hypertrophy, chronic diastolic congestive h eart failure, CKD 3, COPD, hyperlipidemia, dysphagia, esophageal dysmotility, GERD, a flutter, hia hypertension, neuropathy,xiao hernia, peptic ulcer disease, renal stones, osteoarthritis, osteoporosis, peripheral vascular disease, psoriatic arthritis, ankle ulcer, toe osteomyelitis, tobacco use disorder, venous ulcer, and umbilical hernia who presents the emergency room complaining of diarrhea, dehydration, shortness of breath, weakness and poor appetite over the last [address] Jeffers and follows him closely. He also complains of urinary hesitancy, decreased p.o. intake and a rapid heart rate. He comes in c, a white count of 11, complaining of shortness of breath and cough and was found to have a right lower lobe pneumonia. He received a 1 L bolus in the emergency room was started on Rocephin, but not restarted on Zithromax secondary to QT interval. Allergies Allergy/AdvReac Type Severity Reaction Status Date / Time morphine Allergy Unknown "out of it Verified 01/11/20 11:32 for days" [place] And Derivatives AdvReac Intermediate STOMACH Verified 01/11/20 11:32 ACHE FROM [employer] JUICE tomato AdvReac Intermediate HEADACHE Verified 01/11/20 11:32 FROM TOMATO JUICE colchicine AdvReac Mild GI upset Verified 01/11/20 11:32 Home Medications Home Medications Medication Instructions Recorded Confirmed Type allopurinol 300 mg tablet 300 mg PO QAM #90 tab 01/05/19 01/11/20 History atorvastatin 40 mg tablet 40 mg PO QAM #90 tab 01/05/19 01/11/20 History clopidogrel 75 mg tablet 75 mg PO QAM #30 tab 01/05/19 01/11/20 History Asmanex Twisthaler 2 inh INHALATION BID 03/24/19 01/11/20 History Combivent Respimat 1 puff INHALATION QID PRN 03/24/19 01/11/20 History Men's Daily Multivit-Mineral 1 tab PO DAILY 03/24/19 01/11/20 History cholecalciferol (vitamin D3) 2,000 unit PO PM 03/24/19 01/11/20 History [Vitamin D3] gabapentin 300 - 600 mg PO TID PRN 03/24/19 01/11/20 History magnesium oxide 400 mg PO BID 03/24/19 01/11/20 History metoprolol succinate 50 mg PO QAM 03/24/19 01/11/20 History ondansetron HCl [Zofran] 4 mg PO Q8H PRN 03/24/19 01/11/20 History pantoprazole 40 mg PO QAM 03/24/19 01/11/20 History prednisone 5 mg PO QAM 03/24/19 01/11/20 History tramadol 50 - 100 mg PO Q6H PRN 03/24/19 01/11/20 History vitamin B complex [Super B-50 1 cap PO PM 03/24/19 01/11/20 History Complex] furosemide 20 mg tablet 20 mg PO UD tab 05/05/19 01/11/20 History doxycycline monohydrate 100 mg PO BID 08/24/19 01/11/20 History amlodipine 2.5 mg PO QAM 09/17/19 01/11/20 History ferrous sulfate 325 mg PO DAILY 09/17/19 01/11/20 History dutasteride 0.5 mg capsule 0.5 mg PO DAILY #90 cap 10/15/19 01/11/20 Rx mirabegron 50 mg tablet,extended 50 mg PO DAILY #90 tab 12/07/19 01/11/20 Rx release 24 hr tamsulosin 0.4 mg capsule 0.4 mg PO QPM #90 cap 12/07/19 01/11/20 Rx tolterodine 4 mg capsule,extended 4 mg PO DAILY #90 cap 12/07/19 01/11/20 Rx release 24 hr levothyroxine 50 mcg PO QAM 01/11/20 01/11/20 History Past Med/Surg History Medical History MAXI (acute kidney injury) Most recent BMP WNL 08/24/19 Amputation of toe LEFT/RT SECOND TOE Anemia Aortic stenosis Per echo 03/2019 -- SEVERE. FCO 0.61cm, mean gradient 38.2. Symptomatic, dyspnea (but also has COPD). Following with Dr. Huntley ([facility]) with serial echos q 6mo to evaluate for possible TAVR. Last office visit was 02/05/19, was to f/u in 6 months with new echo but not done due to covid19 pandemic. Did have telehealth visit 09/16 with regular quality systems specialist. Cardio aware of upcoming toe amputation. BPH (benign prostatic hypertrophy) Chronic diastolic heart failure Chronic venous insufficiency CKD (chronic kidney disease), stage III COPD (chronic obstructive pulmonary disease) Dyslipidemia Dysphagia Elevated PSA Esophageal dysmotility GERD (gastroesophageal reflux disease) Gout H/O atrial flutter "occurred postoperatively in 01/2014, converted to sinus rhythm with IV diltiazem" H/O diastolic dysfunction Grade II per 03/2019 echo Hiatal hernia History of duodenal ulcer History of heart valve insufficiency Mild TR History of kidney stones Hypertension Neuropathy Nocturnal hypoxemia On home oxygen therapy WEARS O2 AT 2L AT HS Osteoarthritis Osteoporosis Peripheral vascular disease s/p angioplasty of right posterior tibial artery Psoriatic arthritis Renal lesion Stage II pressure ulcer of ankle Tobacco abuse Toe osteomyelitis Umbilical hernia Urinary incontinence Urinary retention Venous stasis ulcer Volvulus of stomach Surgical History Family history of reaction to anesthesia DAUGHTER-NAUSEA/VOMITTING History of angioplasty of peripheral vessel History of cardiac cath 1 YEAR AGO AT [place] History of cataract surgery RT/LEFT History of colonoscopy History of esophagogastroduodenoscopy (EGD) History of lithotripsy History of lumbar fusion History of tooth extraction Status post endovenous radiofrequency ablation of saphenous vein Family History Mother Colorectal cancer Sister Breast cancer Lung cancer Father Parkinson disease Brother Nephrolithiasis Social History Smoking Status: Former smoker Tobacco Type: Cigarettes Second Hand Exposure: No; Hx Alcohol Use: No Hx Substance Use: No Preferred Language: Bahamian Communication Ability: Effective Visual Impairment: Limited Hearing Ability: Normal Manager Behavioral Required: No Beliefs That Will Affect Care: None marital status: / Current Living Situation: Family Current Living Situation Comment: son lives with him current occupational status: retired Other Information That Helps Us Care for You: No other: walks with walker Feels Safe at Home: Yes Safety Concerns: Feels Safe At This Time Assistive Devices: CPAP, Glasses, Oxygen - at Night and Walker Results & Data Results & Data ([facility]) Vital Signs (Past 12 Hours) Vital Signs Temp Pulse Resp BP Pulse Ox 01/11/20 10:04 93 01/11/20 09:56 36.4 C L 128 H 20 97/61 L 92 01/11/20 09:45 93 Allergies morphine Allergy (Unknown, Verified 01/11/20 11:32) "out of it for days" [place] And Derivatives Adverse Reaction (Intermediate, Verified 01/11/20 11:32) STOMACH ACHE FROM [place]UICE tomato Adverse Reaction (Intermediate, Verified 01/11/20 11:32) HEADACHE FROM TOMATO JUICE colchicine Adverse Reaction (Mild, Verified 01/11/20 11:32) GI upset Height/Weight/Isolation Height 5 ft 10 in Chemistry 01/11/20 10:19 Sodium 139 Potassium 3.7 Chloride 104 Carbon Dioxide 25 Anion Gap 10.0 BUN 20 H Creatinine 1.43 H Glucose 142 H Microbiology 01/11/20 11:00 Blood Aerobic Blood Culture - Pending 01/11/20 11:00 Blood Anaerobic Blood Culture - Pending 01/11/20 11:05 Blood Aerobic Blood Culture - Pending 01/11/20 11:05 Blood Anaerobic Blood Culture - Pending (1) Pneumonia Laterality: right Lung location: lower lobe of lung Pneumonia type: due to unspecified organism Qualified Code(s): J18.9 - Pneumonia, unspecified organism (2) Diarrhea Diarrhea type: unspecified type Qualified Code(s): R19.7 - Diarrhea, unspecified
[2020-01-11] MEDS ORDERED: ONDANSETRON INJ 2 MG/ML 2 ML VIAL IV PRN (15:54)
[2020-01-11] MEDS: SODIUM CHLORIDE 0.9% 1000ML 1,000 ML IV SCH (16:12)
[2020-01-11] MEDS ORDERED: PATIENT'S HEIGHT AND/OR WEIGHT NEEDED SCH (16:15)
[2020-01-11 17:48] LABS: Appearance Urine Cloudy (Clear); Blood Urine Negative (Negative); Color Urine Dark Yellow; Epithelial Cell Urine Auto >30 /lpf (0-5); Glucose Urine UA Negative (Negative); Ketones Urine Negative (Negative); Leukocyte Esterase Urine Trace (Negative); Nitrite Urine Negative (Negative); Protein Urine 2+ (Negative); RBC Urine Automated 0-4 /hpf (0-4); Specific Gravity Urine 1.024 (1.000-1.030); Urobilinogen Urine Negative (Negative)
[2020-01-11 18:01] LABS: Bilirubin Urine Negative (Negative); Ictotest Urine Negative (Negative)
[2020-01-11 18:18] LABS: Bacteria Urine Automated 2+ (Negative)
[2020-01-11] MEDS: GABAPENTIN 300 MG CAP PO PRN (18:34)
[2020-01-11] MEDS: CHOLECALCIFEROL 1,000 UNITS 25 MCG TAB PO SCH (20:13)
[2020-01-11] MEDS: TAMSULOSIN HCL 0.4 MG CAP PO SCH (20:14)
[2020-01-11] MEDS: HEPARIN SOD 5,000 UNIT/0.5 ML VIAL SQ SCH (20:17)
[2020-01-11] MEDS ORDERED: MAGNESIUM OXIDE 400 MG TAB PO SCH (21:00)
[2020-01-12] MEDS: ALBUT/IPRATROP 3MG/0.5MG NEB 3 ML VIAL NEB PRN (00:50)
[2020-01-12] MEDS: GABAPENTIN 300 MG CAP PO PRN ×2 (01:18→10:48)
[2020-01-12] MEDS ORDERED: GABAPENTIN 300 MG CAP PO STA (01:37)
[2020-01-12] MEDS ORDERED: LORazepam 0.25 MG/0.5 ML VIAL IV STA (05:10)
[2020-01-12] MEDS: SODIUM CHLORIDE 0.9% 1000ML 1,000 ML IV SCH (05:22)
[2020-01-12] MEDS: LEVOTHYROXINE SODIUM 50 MCG TABLET PO SCH (06:32)
--- NOTE | 2020-01-12 06:44 | XRay Report ---
XR chest 1V portable HISTORY: 89 years-old Male hypoxia acute hypoxia COMPARISON: Chest radiograph 01/11/2020, chest CT 03/26/2019. TECHNIQUE: Portable AP view of the chest FINDINGS: Cardiac silhouette is mildly enlarged, unchanged. Large hiatal hernia redemonstrated. Calcified bilat eral pleural plaques with mild chronic interstitial coarsening. Trace left and small right pleural ef fusions. Progressively worsened right lung base opacities. Unchanged mild left lung base densities. N o overt pulmonary edema. Degenerative changes of the shoulders and spine. IMPRESSION: 1. Progressively worsened right lung base opacities suspicious for pneumonia or aspiration pneumoniti s. 2. Trace left and small right pleural effusions. 3. Large hiatal hernia. 4. Bilateral calcified pleural plaques. ACT 112: Negative or not required by law. The above report was generated using voice recognition software. It may contain grammatical, syntax o r spelling errors. Electronically signed by: Steven Carlos M.D. 01/12/2020 6:43 AM
[2020-01-12] MEDS ORDERED: FUROSEMIDE 20 MG in SYRINGE 0 ML IV ONE (06:45)
[2020-01-12 06:54] LABS: Hematocrit (blood only) 33.7 % (42-52); Hemoglobin 10.5 g/dL (14.0-18.0); Mean Corpuscular Hemoglobin 26.5 pg (25-34); Mean Corpuscular Hgb Conc 31.2 g/dL (32-36); Mean Corpuscular Volume 85.1 fL (80-100); Mean Platelet Volume 9.7 fL (7.4-10.4); Platelet Count 172 K/uL (130-400); RDW Coefficient of Variation 15.8 % (11.5-14.5); Red Blood Count 3.96 M/uL (4.7-6.1)
[2020-01-12 07:26] LABS: Albumin Level 2.7 gm/dl (3.4-5.0); BUN Creatinine Ratio 17.1 (10-20); Calcium 8.1 mg/dl (8.5-10.1); Creatinine Clr Calc Pharmacy 50.6 ml/min; Est GFR (African American) 66.2; Est GFR (Non-African American) 57.1; Potassium 3.8 mmol/L (3.5-5.1)
[2020-01-12 07:28] LABS: Albumin Globulin Ratio 0.7 (0.9-2); Bilirubin,Total 0.9 mg/dl (0.2-1); Globulin 3.9 gm/dl (2.5-4.0); Total Protein 6.6 gm/dl (6.4-8.2)
[2020-01-12] MEDS: CLOPIDOGREL BISULFATE 75 MG TAB PO SCH (08:43)
[2020-01-12] MEDS: FLUTICASONE FUROATE 200MCG 14 PUFFS/INHALER INH SCH (08:43)
[2020-01-12] MEDS: MIRABEGRON ER 25 MG TAB PO SCH (08:43)
[2020-01-12] MEDS: allopurinoL 300 MG TAB PO SCH (08:44)
[2020-01-12] MEDS: TOLTERODINE TARTRATE LA 4 MG CAPCR PO SCH (08:44)
[2020-01-12] MEDS: PANTOprazole 40 MG TAB PO SCH (08:44)
[2020-01-12] MEDS: METOPROLOL SUCC 50MG EXT REL TAB PO SCH (08:44)
[2020-01-12] MEDS: ATORVASTATIN 40 MG TAB PO SCH (08:44)
[2020-01-12] MEDS: predniSONE 5 MG TAB PO SCH (08:45)
[2020-01-12] MEDS: HEPARIN SOD 5,000 UNIT/0.5 ML VIAL SQ SCH ×2 (08:45→20:54)
[2020-01-12] MEDS ORDERED: DOXYCYCLINE HYCLATE 100 MG CAP PO SCH (09:00)
[2020-01-12] MEDS: LACTOBACILLUS ACIDOPHILUS (FLORANEX) TAB PO SCH ×3 (11:25→20:52)
[2020-01-12] MEDS ORDERED: cefTRIAXone SODIUM 2,000 MG in DEXTROSE 5% 50 ML IV SCH (12:00)
--- NOTE | 2020-01-12 13:39 | Hospitalist Progress Note ---
Date of Service January 12, 2020 Assessment & Plan (1) Pneumonia: Possible Aspiration pneumonia Chronic respiratory failure with hypoxia--oxygen dependent H/O COPD on chronic Prednisone H/O esophageal dysmotility, hiatal hernia Noncompliant with home supplemental oxygen CXR:Right lower lung zone airspace opacity suspicious for pneumonia. Heart is enlarged. large hiatal hernia. Pleural calcifications present. There are scattered calcified granulomas. Normal Procalcitonin Aspiration precautions Speech therapy eval Continue Rocephin, Doxycycline Day #2 Continue supplemental oxygen Continue home inhalers Continue home prednisone Nebs PRN Continue slippery diet as per speech therapy Delirium Possible Metabolic encephalopathy Decrease Gabapentin Reorient frequently Supraventricular Tachycardia- POA H/O Atrial Flutter Missed taking his home medications on presentation as per patient's daughter Monitor on Tele Continue Metoprolol Heart rate is currently controlled Chronic Diarrhea Dehydration Ongoing diarrhea intermittently since many weeks Hold Magnesium Oxide Check stool studies May need colonoscopy eventually as outpatient Chronic venous insufficiency Peripheral artery disease S/P angioplasty of the right posterior tibial artery S/P endovenous ablation by Dr. Kendrick Continue Plavix, Lipitor Hypothyroidism Continue levothyroxine Check TSH Moderate to severe aortic stenosis H/O Chronic diastolic heart failure Dehydrated on presentation Suggested to have TAVR by Cardiology Patient currently prefers to avoid surgery Follows with [facility] Monitor Volume status Resume home diuretic as able Dyslipidemia Continue Statin CKD III Monitor renal function Avoid nephrotoxic agents as able DVT Px: Heparin SQ Code Status Full Code Disposition PT/OT prior to discharge Admission and Anticipated Discharge Date Admission Date: January 11, 2020 Subjective Patient is seen and examined at bedside Reports cough with yellowish expectoration Reports significant generalized weakness Palpitations resolved Ongoing dyspnea on minimal exertion Admits to being noncompliant with home oxygen use Discussed with patient's daughter over the phone in detail No diarrhea since hospitalization Offers no other complaints Review of Systems Review of Systems: All systems reviewed & are unremarkable except as noted in HPI & below Physical Exam Physical Exam: Physical Exam: Vitals signs as noted above General Appearance:Moderately built and nourished, Chronic ill appearing Head: normocephalic, Atraumatic Eyes: normal inspection, EOMI Neck: supple, Trachea midline Respiratory/Chest: Decreased breath sounds, CTA Cardiovascular: S1, S2, + systolic murmur Abdomen/GI:Soft, Non tender, Bowel sounds present Extremities/Musculoskelatal:normal inspection, Trace B/L LE edema Neurologic/Psych:Alert, awake, oriented, grossly no focal neurological deficits Skin: normal color, warm Results & Data Results & [facility] ([facility]) Vital Signs (Past 12 Hours) Vital Signs Temp Pulse Pulse Resp BP Pulse Ox 01/12/20 11:45 36.5 C 81 18 129/75 95 01/12/20 07:05 37.3 C 102 H 20 145/91 H 96 01/12/20 04:24 96 H 24 97 01/12/20 04:21 37.0 C 68 18 132/56 L 90 01/12/20 03:53 79 Laboratory Results Short CBC 01/12/20 Range/Units 06:35 WBC 8.90 (4.8-10.8) K/uL Hgb 10.5 L (14.0-18.0) g/dL Hct 33.7 L (42-52) % Plt Count 172 (130-400) K/uL BMP 01/12/20 06:35 Sodium 140 Potassium 3.8 Chloride 108 H Carbon Dioxide 25 BUN 19 H Creatinine 1.14 Glucose 129 H Calcium 8.1 L Liver Function 01/12/20 Range/Units 06:35 Total Bilirubin 0.9 (0.2-1) mg/dl AST 17 (15-37) U/L ALT 16 (12-78) U/L Alkaline Phosphatase 92 (45-117) U/L Albumin 2.7 L (3.4-5.0) gm/dl Urine 01/11/20 Range/Units 17:35 Urine Color Dark Yellow Urine Appearance Cloudy A (Clear) Urine pH 5.0 (4.5-7.5) Ur Specific [place] 1.024 (1.000-1.030) Urine Protein 2+ H (Negative) Urine Glucose (UA) Negative (Negative) (1) Pneumonia Laterality: right Lung location: lower lobe of lung Pneumonia type: due to unspecified organism Qualified Code(s): J18.9 - Pneumonia, unspecified organism
[2020-01-12] MEDS ORDERED: GABAPENTIN 100 MG CAP PO PRN (14:11)
--- NOTE | 2020-01-12 15:27 | Electrocardiogram Report ---
Test Reason : Blood Pressure : / mmHG Vent. Rate : 162 BPM Atrial Rate : 178 BPM P-R Int : 000 ms QRS Dur : 098 ms QT Int : 314 ms P-R-T Axes : 000 -63 085 degrees QTc Int : 515 ms Supraventricular tachycardia , likely atrial flutter with 2:1 AV conduction Left axis deviation Minimal voltage criteria for LVH, may be normal variant Nonspecific ST abnormality Abnormal ECG When compared with ECG of 24-AUG-2019 10:49, Supraventricular tachycardia is now Present Confirmed by Cameron Alvarado ([id number]) on 01/12/2020 3:27:15 PM Referred By: REFERRED SELF Confirmed By:Cameron Alvarado
[2020-01-12] MEDS: ACETAMINOPHEN 325 MG TAB PO PRN (15:31)
[2020-01-12] MEDS ORDERED: PIPERACILL/TAZOBAC CONSULT ACTIVE PRN (15:56)
[2020-01-12] MEDS ORDERED: PIPERACILLIN/TAZOBACTAM 3.375 GM in DEXTROSE 5% 100 ML IV ONE (16:00)
[2020-01-12 17:12] LABS: Adenovirus PCR Not Detected (NotDetected); Bordetella parapertussis PCR Not Detected (NotDetected); Bordetella pertussis PCR Not Detected (NotDetected); Chlamydia pneumoniae PCR Not Detected (NotDetected); Coronavirus 229E PCR Not Detected (NotDetected); Coronavirus CoV-2 (COVID19)PCR Not Detected (NotDetected); Coronavirus HKU1 PCR Not Detected (NotDetected); Coronavirus NL63 PCR Not Detected (NotDetected); Coronavirus OC43PCR Not Detected (NotDetected); Human Metapneumovirus PCR Not Detected (NotDetected); Influenza A PCR Not Detected (NotDetected); Influenza B PCR Not Detected (NotDetected); Mycoplasma pneumoniae PCR Not Detected (NotDetected); Parainfluenza Virus 1 PCR Not Detected (NotDetected); Parainfluenza Virus 2 PCR Not Detected (NotDetected); Parainfluenza Virus 3 PCR Not Detected (NotDetected); Parainfluenza Virus 4 PCR Not Detected (NotDetected); Respiratory Syncytial VirusPCR Not Detected (NotDetected); Rhinovirus/Enterovirus PCR Not Detected (NotDetected)
[2020-01-12] MEDS: CHOLECALCIFEROL 1,000 UNITS 25 MCG TAB PO SCH (20:52)
[2020-01-12] MEDS: TAMSULOSIN HCL 0.4 MG CAP PO SCH (20:53)
[2020-01-12] MEDS: PIPERACILLIN/TAZOBACTAM 3.375 GM in DEXTROSE 5% 100 ML IV SCH (21:03)
[2020-01-13] MEDS ORDERED: METOPROLOL TARTRATE 1 MG/ML VIAL IV STA (05:26)
[2020-01-13] MEDS: PIPERACILLIN/TAZOBACTAM 3.375 GM in DEXTROSE 5% 100 ML IV SCH ×3 (06:09→20:58)
[2020-01-13] MEDS: LEVOTHYROXINE SODIUM 50 MCG TABLET PO SCH (06:09)
[2020-01-13 06:39] LABS: Hematocrit (blood only) 35.6 % (42-52); Hemoglobin 10.7 g/dL (14.0-18.0); Mean Corpuscular Hemoglobin 25.2 pg (25-34); Mean Corpuscular Hgb Conc 30.1 g/dL (32-36); Mean Corpuscular Volume 83.8 fL (80-100); Mean Platelet Volume 8.9 fL (7.4-10.4); Platelet Count 186 K/uL (130-400); RDW Coefficient of Variation 15.7 % (11.5-14.5); Red Blood Count 4.25 M/uL (4.7-6.1); White Blood Count 11.26 K/uL (4.8-10.8)
[2020-01-13 07:07] LABS: BUN Creatinine Ratio 15.3 (10-20); Calcium 8.4 mg/dl (8.5-10.1); Creatinine Clr Calc Pharmacy 49.7 ml/min; Est GFR (African American) 64.8; Est GFR (Non-African American) 55.9; Magnesium 2.2 mg/dl (1.8-2.4); Potassium 3.9 mmol/L (3.5-5.1)
[2020-01-13 07:17] LABS: Thyroid Stimulating Hormone 2.84 uIu/ml (0.300-4.500)
[2020-01-13] MEDS: predniSONE 5 MG TAB PO SCH (07:47)
[2020-01-13] MEDS: MIRABEGRON ER 25 MG TAB PO SCH (07:47)
[2020-01-13] MEDS: PANTOprazole 40 MG TAB PO SCH (07:47)
[2020-01-13] MEDS: METOPROLOL SUCC 50MG EXT REL TAB PO SCH (07:48)
[2020-01-13] MEDS: allopurinoL 300 MG TAB PO SCH (07:48)
[2020-01-13] MEDS: CLOPIDOGREL BISULFATE 75 MG TAB PO SCH (07:48)
[2020-01-13] MEDS: LACTOBACILLUS ACIDOPHILUS (FLORANEX) TAB PO SCH ×4 (07:48→20:59)
[2020-01-13] MEDS: TOLTERODINE TARTRATE LA 4 MG CAPCR PO SCH (07:48)
[2020-01-13] MEDS: FLUTICASONE FUROATE 200MCG 14 PUFFS/INHALER INH SCH (07:48)
[2020-01-13] MEDS: ATORVASTATIN 40 MG TAB PO SCH (07:49)
[2020-01-13] MEDS: HEPARIN SOD 5,000 UNIT/0.5 ML VIAL SQ SCH (07:49)
[2020-01-13] MEDS ORDERED: METOPROLOL TARTRATE 1 MG/ML VIAL IV PRN (07:52)
[2020-01-13] MEDS ORDERED: POTASSIUM CHLORIDE CRTAB 20 MEQ TABCR PO ONE (08:15)
[2020-01-13] MEDS ORDERED: dilTIAZem HCl 5 MG/ML 5 ML VIAL IV STA (09:54)
[2020-01-13] MEDS ORDERED: STAT IV Infusion **Titration per Protocol STA (09:54)
[2020-01-13] MEDS ORDERED: Heparin IV Low Dose *NO* Bolus IV SCH (09:56)
--- NOTE | 2020-01-13 10:03 | Cardiology Consultation ---
Date of Consultation January 13, 2020 Assessment & Plan (1) Atrial flutter with rapid ventricular response: (2) Diarrhea: (3) Dehydration: (4) Pneumonia: (5) Toe osteomyelitis: (6) Venous stasis ulcer: (7) Peripheral arterial occlusive disease: (8) H/O atrial flutter: Patient presented with symptomatic pneumonia. Blood cultures are currently pending. Started on antibiotic therapy. Was in atrial flutter with rapid ventricular response upon arrival and has remained in atrial flutter with rapid ventricular response/variable response continuously. Remote history postoperatively without recurrence Given his severe aortic stenosis I highly doubt that he will tolerate this very well from a clinical standpoint. I will start IV Cardizem for rate control and his baseline beta-lilly will be adjusted as necessary as well. He will be started on low-dose IV heparin without bolus but given his history of frequent falls and pending toe amputation I doubt that he will be a long-term anticoagulation candidate. Given concern for anticoagulation for least 30 days it does not appear that he would be a candidate for rhythm control at this time. History of Present Illness Reason for Consultation: Aortic stenosis Requesting Physician: Richard Attending Physician: Louie Ramos MD History of Present Illness Mr. Jones is a very pleasant yet medically complex 89-year-old gentleman who normally follows with Dr. Morocho, Patrick Hough and Dr. Huntley of our cardiology practice. He presented to [facility] on 01/11[facility]2020 with complaints of weakness, poor appetite and a cough. Upon presentation the emergency room he was found to have a pneumonia along with volume depletion and was admitted to telemetry. He was also in atrial flutter with variable rate response upon presentation. This is new diagnosis for him. Currently he is seated upright in bed stating he just feels horrible. He states he feels tired and short of breath. He denies any chest pain but states he does have occasional palpitations. He has been following closely with Dr. Huntley for his borderline severe aortic stenosis with tentative plans to proceed with TAVR in the future. Past medical history as per most recent cardiac evaluation: 1. Multifactorial fluid retention (wounds, venous insufficiency, calcium channel lilly therapy, diastolic heart failure) 2. Borderline severe calcific aortic valve stenosis 3. Nonobstructive coronary disease per cardiac catheterization 09/04/17 4. Peripheral vascular disease status post bilateral lower extremity intervention by Dr. Kendrick and pending toe amputation 5. Chronic venous insufficiency status post endovenous ablation by Dr. Kendrick. 6. Renal dysfunction 7. Anemia 8. Hypertension 9. Dyslipidemia 10. Osteomyelitis with planned toe amputation. Allergies Allergy/AdvReac Type Severity Reaction Status Date / Time morphine Allergy Unknown "out of it Verified 01/11/20 11:32 for days" Kidder And Derivatives AdvReac Intermediate STOMACH Verified 01/11/20 11:32 ACHE FROM [employer]UICE tomato AdvReac Intermediate HEADACHE Verified 01/11/20 11:32 FROM TOMATO JUICE colchicine AdvReac Mild GI upset Verified 01/11/20 11:32 Home Medications Home Medications Medication Instructions Recorded Confirmed Type allopurinol 300 mg tablet 300 mg PO QAM #90 tab 01/05/19 01/11/20 History atorvastatin 40 mg tablet 40 mg PO QAM #90 tab 01/05/19 01/11/20 History clopidogrel 75 mg tablet 75 mg PO QAM #30 tab 01/05/19 01/11/20 History Asmanex Twisthaler 2 inh INHALATION BID 03/24/19 01/11/20 History Combivent Respimat 1 puff INHALATION QID PRN 03/24/19 01/11/20 History Men's Daily Multivit-Mineral 1 tab PO DAILY 03/24/19 01/11/20 History cholecalciferol (vitamin D3) 2,000 unit PO PM 03/24/19 01/11/20 History [Vitamin D3] gabapentin 300 - 600 mg PO TID PRN 03/24/19 01/11/20 History magnesium oxide 400 mg PO BID 03/24/19 01/11/20 History metoprolol succinate 50 mg PO QAM 03/24/19 01/11/20 History ondansetron HCl [Zofran] 4 mg PO Q8H PRN 03/24/19 01/11/20 History pantoprazole 40 mg PO QAM 03/24/19 01/11/20 History prednisone 5 mg PO QAM 03/24/19 01/11/20 History tramadol 50 - 100 mg PO Q6H PRN 03/24/19 01/11/20 History vitamin B complex [Super B-50 1 cap PO PM 03/24/19 01/11/20 History Complex] furosemide 20 mg tablet 20 mg PO UD tab 05/05/19 01/11/20 History amlodipine 2.5 mg PO QAM 09/17/19 01/11/20 History ferrous sulfate 325 mg PO DAILY 09/17/19 01/11/20 History dutasteride 0.5 mg capsule 0.5 mg PO DAILY #90 cap 10/15/19 01/11/20 Rx mirabegron 50 mg tablet,extended 50 mg PO DAILY #90 tab 12/07/19 01/11/20 Rx release 24 hr tamsulosin 0.4 mg capsule 0.4 mg PO QPM #90 cap 12/07/19 01/11/20 Rx tolterodine 4 mg capsule,extended 4 mg PO DAILY #90 cap 12/07/19 01/11/20 Rx release 24 hr levothyroxine 50 mcg PO QAM 01/11/20 01/11/20 History Patient History Medical History MAXI (acute kidney injury) Most recent BMP WNL 08/24/19 Amputation of toe LEFT/RT SECOND TOE Anemia Aortic stenosis Per echo 03/2019 -- SEVERE. FCO 0.61cm, mean gradient 38.2. Symptomatic, dyspnea (but also has COPD). Following with Dr. Huntley ([facility]) with serial echos q 6mo to evaluate for possible TAVR. Last office visit was 02/05/19, was to f/u in 6 months with new echo but not done due to covid19 pandemic. Did have telehealth visit 09/16 with regular fish and wildlife biologist. Cardio aware of upcoming toe amputation. BPH (benign prostatic hypertrophy) Chronic diastolic heart failure Chronic venous insufficiency CKD (chronic kidney disease), stage III COPD (chronic obstructive pulmonary disease) Dyslipidemia Dysphagia Elevated PSA Esophageal dysmotility GERD (gastroesophageal reflux disease) Gout H/O atrial flutter "occurred postoperatively in 01/2014, converted to sinus rhythm with IV diltiazem" H/O diastolic dysfunction Grade II per 03/2019 echo Hiatal hernia History of duodenal ulcer History of heart valve insufficiency Mild TR History of kidney stones Hypertension Neuropathy Nocturnal hypoxemia On home oxygen therapy WEARS O2 AT 2L AT HS Osteoarthritis Osteoporosis Peripheral vascular disease s/p angioplasty of right posterior tibial artery Psoriatic arthritis Renal lesion Stage II pressure ulcer of ankle Tobacco abuse Toe osteomyelitis Umbilical hernia Urinary incontinence Urinary retention Venous stasis ulcer Volvulus of stomach Surgical History Family history of reaction to anesthesia DAUGHTER-NAUSEA/VOMITTING History of angioplasty of peripheral vessel History of cardiac cath 1 YEAR AGO AT [facility] History of cataract surgery RT/LEFT History of colonoscopy History of esophagogastroduodenoscopy (EGD) History of lithotripsy History of lumbar fusion History of tooth extraction Status post endovenous radiofrequency ablation of saphenous vein Family History Mother Colorectal cancer Sister Breast cancer Lung cancer Father Parkinson disease Brother Nephrolithiasis Social History Smoking Status: Former smoker Tobacco Type: Cigarettes Second Hand Exposure: No; Hx Alcohol Use: No Hx Substance Use: No Preferred Language: Azerbaijani Communication Ability: Impaired Visual Impairment: Limited Hearing Ability: Normal Vending Route Servicer Required: No Beliefs That Will Affect Care: None marital status: / Current Living Situation: Family Current Living Situation Comment: son lives with him current occupational status: retired Other Information That Helps Us Care for You: No other: walks with walker Feels Safe at Home: Yes Safety Concerns: Feels Safe At This Time Assistive Devices: Oxygen - Continuous and Walker Review of Systems Review of Systems: All systems reviewed & are unremarkable except as noted in HPI & below Physical Exam Physical Exam: General: Awake, alert and oriented x 3. No acute distress. HEENT: Normocephalic, atraumatic. Pupils equal, round and reactive to light and accommodation. Extraocular muscles are intact. Anicteric sclera. Moist mucous membranes. Neck: No JVD. No bruit. Cardiovascular: Regular but fast. Positive S-4. Normal S-1 and S-2. No S-3. 3/6 mid to late systolic ejection murmur, greatest at the right sternal border, second intercostal space with radiation to the bilateral carotids. No rubs. Pulmonary: Clear to auscultation bilaterally. No rales, rhonchi, or wheezing. Abdomen: Bowel sounds x 4, soft. No rebound, guarding or tenderness. No organomegaly. Extremities: No clubbing, cyanosis or edema. pedal pulses not appreciated bilaterally. Skin: Warm and dry. Chronic venous stasis changes Results & Data ([facility]) Vital Signs (Past 12 Hours) Vital Signs Temp Pulse Pulse Resp BP BP Pulse Ox 01/13/20 07:46 36.5 C 138 H 22 142/95 H 96 01/13/20 07:16 136 H 01/13/20 06:09 126 H 01/13/20 03:52 36.6 C 102 H 22 174/90 H 95 01/12/20 23:46 124 H 01/12/20 23:42 36.5 C 101 H 19 140/87 98 (1) Diarrhea Diarrhea type: unspecified type Qualified Code(s): R19.7 - Diarrhea, unspecified (2) Pneumonia Laterality: right Lung location: lower lobe of lung Pneumonia type: due to unspecified organism Qualified Code(s): J18.9 - Pneumonia, unspecified organism (3) Venous stasis ulcer Venous stasis ulcer site: calf Varicose vein presence: unspecified whether present Laterality: right Non-pressure ulcer stage: limited to breakdown of skin Qualified Code(s): I83.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
[2020-01-13] MEDS: HEPARIN SODIUM/DEXTROSE 25,000 UNITS/500 ML BAG IV SCH (10:15)
[2020-01-13] MEDS: dilTIAZem HCL 125 MG in DEXTROSE 5% 100 ML IV SCH ×2 (11:03→13:00)
[2020-01-13 11:45] LABS: Partial Thromboplastin Ratio 1.3; Partial Thromboplastin Time 36.5 Seconds (21.0-31.0)
--- NOTE | 2020-01-13 16:21 | Hospitalist Progress Note ---
Date of Service January 13, 2020 Assessment & Plan (1) Pneumonia: Possible Aspiration pneumonia Chronic respiratory failure with hypoxia--oxygen dependent H/O COPD on chronic Prednisone H/O esophageal dysmotility, hiatal hernia Noncompliant with home supplemental oxygen CXR:Right lower lung zone airspace opacity suspicious for pneumonia. Heart is enlarged. large hiatal hernia. Pleural calcifications present. There are scattered calcified granulomas. Negative Biofire Normal Procalcitonin Aspiration precautions Speech therapy eval Continue Zosyn Continue supplemental oxygen Continue home inhalers Continue home prednisone Nebs PRN Continue slippery diet as per speech therapy Continue current management Atrial flutter with RVR H/O Atrial Flutter Missed taking his home medications on presentation as per patient's daughter Monitor on Tele Started on Cardizem, IV heparin Likely not a candidate for long-term anticoagulation Appreciate cardiology input Continue metoprolol dose adjusted as per cardiology Delirium Possible Metabolic encephalopathy Decreased Gabapentin to 100 mg TID Reorient frequently Chronic Diarrhea Dehydration Ongoing diarrhea intermittently since many weeks Hold Magnesium Oxide Check stool studies if reoccurs May need colonoscopy eventually as outpatient Chronic venous insufficiency Peripheral artery disease S/P angioplasty of the right posterior tibial artery S/P endovenous ablation by Dr. Kendrick Continue Plavix, Lipitor Hypothyroidism Normal TSH Continue levothyroxine Moderate to severe aortic stenosis H/O Chronic diastolic heart failure Dehydrated on presentation Suggested to have TAVR by Cardiology as outpatient Patient currently prefers to avoid surgery Cardiology on board Monitor Volume status Resume home diuretic as able Dyslipidemia Continue Statin CKD III Monitor renal function Avoid nephrotoxic agents as able DVT Px: on IV Heparin Code Status Full Code Disposition PT/OT prior to discharge Admission and Anticipated Discharge Date Admission Date: January 11, 2020 Subjective Patient is seen and examined at bedside Intermittently confused Still has cough Tachycardic on monitor Poor historian Started on Cardizem drip Poor appetite Review of Systems Review of Systems: All systems reviewed & are unremarkable except as noted in HPI & below Physical Exam Physical Exam: Physical Exam: Vitals signs as noted above General Appearance:Moderately built and nourished, Chronic ill appearing Head: normocephalic, Atraumatic Eyes: normal inspection, EOMI Neck: supple, Trachea midline Respiratory/Chest: Decreased breath sounds, CTA Cardiovascular: S1, S2, + systolic murmur, +Tachycardia Abdomen/GI:Soft, Non tender, Bowel sounds present Extremities/Musculoskelatal:normal inspection, Trace B/L LE edema Neurologic/Psych:Alert, awake, oriented, grossly no focal neurological deficits Skin: normal color, warm Results & Data Results & Data ([facility]) Vital Signs (Past 12 Hours) Vital Signs Temp Pulse Pulse Resp BP BP Pulse Ox 01/13/20 14:54 36.6 C 103 H 20 164/94 H 95 01/13/20 14:28 77 113/90 91 01/13/20 13:46 87 129/86 91 01/13/20 13:41 87 128/97 91 01/13/20 13:00 87 128/97 91 01/13/20 12:58 124 H 22 130/102 H 94 01/13/20 12:52 93 H 130/102 H 97 01/13/20 12:45 105 H 93 01/13/20 12:30 134 H 162/128 H 97 01/13/20 12:16 122 H 159/112 H 95 01/13/20 12:15 118 H 01/13/20 12:01 100 H 131/82 94 01/13/20 12:00 108 H 95 01/13/20 11:49 36.5 C 84 22 123/68 01/13/20 11:46 102 H 132/123 H 01/13/20 11:45 111 H 01/13/20 11:31 82 92 01/13/20 11:30 94 H 133/89 89 L 01/13/20 11:15 108 H 129/79 92 01/13/20 11:14 84 123/68 94 01/13/20 11:10 84 123/68 94 01/13/20 11:05 86 127/78 95 01/13/20 11:00 90 120/79 91 01/13/20 10:55 91 H 113/89 93 01/13/20 10:50 138 H 128/98 95 01/13/20 10:46 138 H 97 01/13/20 10:45 137 H 139/106 H 88 L 01/13/20 10:44 139 H 148/105 H 97 01/13/20 10:41 136 H 142/107 H 01/13/20 09:45 139 H 01/13/20 07:46 36.5 C 138 H 22 142/95 H 96 01/13/20 07:16 136 H 01/13/20 06:45 136 H 01/13/20 06:30 136 H 01/13/20 06:15 140 H 01/13/20 06:09 126 H 01/13/20 06:00 139 H Laboratory Results Short CBC 01/13/20 Range/Units 06:29 WBC 11.26 H (4.8-10.8) K/uL Hgb 10.7 L (14.0-18.0) g/dL Hct 35.6 L (42-52) % Plt Count 186 (130-400) K/uL BMP 01/13/20 06:29 Sodium 138 Potassium 3.9 Chloride 105 Carbon Dioxide 25 BUN 18 Creatinine 1.16 Glucose 142 H Calcium 8.4 L (1) Pneumonia Laterality: right Lung location: lower lobe of lung Pneumonia type: due to unspecified organism Qualified Code(s): J18.9 - Pneumonia, unspecified organism
[2020-01-13 16:41] LABS: Partial Thromboplastin Ratio 1.5
[2020-01-13] MEDS: METOPROLOL TARTRATE 25 MG TAB PO SCH ×3 (17:03→23:19)
[2020-01-13] MEDS ORDERED: HEPARIN IV BOLUS 3,000 UNITS in SYRINGE 0 ML IV ONE (17:30)
[2020-01-13] MEDS: ALBUT/IPRATROP 3MG/0.5MG NEB 3 ML VIAL NEB PRN (19:30)
[2020-01-13] MEDS: TAMSULOSIN HCL 0.4 MG CAP PO SCH (20:58)
[2020-01-13] MEDS: CHOLECALCIFEROL 1,000 UNITS 25 MCG TAB PO SCH (20:59)
[2020-01-13] MEDS ORDERED: OLANZapine 10 MG/2.1 ML SDV IM PRN (21:29)
[2020-01-13] MEDS: ACETAMINOPHEN 325 MG TAB PO PRN (23:19)
[2020-01-14 00:03] LABS: Partial Thromboplastin Ratio 1.7
[2020-01-14] MEDS: ALBUT/IPRATROP 3MG/0.5MG NEB 3 ML VIAL NEB PRN (00:03)
[2020-01-14 00:05] LABS: Partial Thromboplastin Time 46.2 Seconds (21.0-31.0)
[2020-01-14] MEDS ORDERED: methylPREDNISolone 20 MG in SYRINGE 0 ML IV STA (01:19)
[2020-01-14] MEDS ORDERED: methylPREDNISolone 20 MG in SYRINGE 0 ML IV ONE ×2 (01:30→06:15)
[2020-01-14] MEDS ORDERED: FUROSEMIDE 40 MG in SYRINGE 0 ML IV ONE ×2 (01:33→15:30)
[2020-01-14] MEDS ORDERED: MAGNESIUM SULFATE / D5W 1 GM/100 ML BAG IV ONE (01:33)
[2020-01-14] MEDS ORDERED: FUROSEMIDE 40 MG/4 ML VIAL IV ONE (01:45)
[2020-01-14 01:47] LABS: Basophils # (auto) 0.02 K/uL (0-0.2); Basophils % (auto) 0.2 %; Eosinophils # (auto) 0.02 K/uL (0-0.5); Eosinophils % (auto) 0.2 %; Hematocrit (blood only) 34.6 % (42-52); Hemoglobin 10.5 g/dL (14.0-18.0); Immature Granulocytes # (auto) 0.02 K/uL (0.00-0.02); Immature Granulocytes % (auto) 0.2 %; Lymphocytes # (auto) 0.69 K/uL (1.2-3.4); Lymphocytes % (auto) 5.6 %; Mean Corpuscular Hemoglobin 25.4 pg (25-34); Mean Corpuscular Hgb Conc 30.3 g/dL (32-36); Mean Corpuscular Volume 83.8 fL (80-100); Mean Platelet Volume 9.6 fL (7.4-10.4); Monocytes # (auto) 0.92 K/uL (0.11-0.59); Monocytes % (auto) 7.4 %; Neutrophils # (auto) 10.74 K/uL (1.4-6.5); Neutrophils % (auto) 86.4 %; Platelet Count 234 K/uL (130-400); RDW Coefficient of Variation 15.5 % (11.5-14.5); RDW Standard Deviation 47.9 fL (36.4-46.3); Red Blood Count 4.13 M/uL (4.7-6.1); White Blood Count 12.41 K/uL (4.8-10.8)
[2020-01-14 01:48] LABS: Base Excess ABG -0.7 mEq/L (-9-1.8); HCO3 ABG 23 mmol/L (19-24); Oxygen Saturation ABG 98.2 % (90-95); PCO2 ABG 36 mmHg (35-46); PO2 ABG 108 mmHg (80-95); pH ABG 7.43 (7.35-7.45)
[2020-01-14 01:49] LABS: Allen Test Pos (Pos)
[2020-01-14 01:51] LABS: Partial Thromboplastin Ratio 0.8; Partial Thromboplastin Time 23.4 Seconds (21.0-31.0)
[2020-01-14] MEDS ORDERED: XOPENEX/ATROVENT 1.25mg/0.5MG NEB COMBO NEB SCH (02:00)
[2020-01-14] MEDS: POTASSIUM CHLORIDE / WTR 10 MEQ/100 ML PLCT IV SCH ×4 (02:00→04:59)
[2020-01-14 02:06] LABS: Albumin Level 2.7 gm/dl (3.4-5.0); BUN Creatinine Ratio 15.1 (10-20); Calcium 8.2 mg/dl (8.5-10.1); Creatinine Clr Calc Pharmacy 48.9 ml/min; Est GFR (African American) 63.5; Est GFR (Non-African American) 54.8; Potassium 3.7 mmol/L (3.5-5.1)
[2020-01-14 02:09] LABS: Albumin Globulin Ratio 0.6 (0.9-2); Bilirubin,Total 0.7 mg/dl (0.2-1); Globulin 4.3 gm/dl (2.5-4.0)
[2020-01-14] MEDS: dilTIAZem HCL 125 MG in DEXTROSE 5% 100 ML IV SCH ×3 (05:07→23:34)
[2020-01-14] MEDS: PIPERACILLIN/TAZOBACTAM 3.375 GM in DEXTROSE 5% 100 ML IV SCH ×2 (05:58→15:06)
[2020-01-14] MEDS: METOPROLOL TARTRATE 25 MG TAB PO SCH ×4 (06:25→23:34)
[2020-01-14 06:32] LABS: Hemoglobin 11.1 g/dL (14.0-18.0); Mean Corpuscular Hemoglobin 25.3 pg (25-34); Mean Corpuscular Volume 84.3 fL (80-100); Mean Platelet Volume 9.8 fL (7.4-10.4); Platelet Count 257 K/uL (130-400); RDW Coefficient of Variation 15.4 % (11.5-14.5); RDW Standard Deviation 47.8 fL (36.4-46.3); Red Blood Count 4.39 M/uL (4.7-6.1)
[2020-01-14] MEDS ORDERED: OLANZapine 10 MG/2.1 ML SDV IM STA ×2 (06:42→11:55)
[2020-01-14 06:43] LABS: Partial Thromboplastin Ratio 1.2; Partial Thromboplastin Time 32.8 Seconds (21.0-31.0)
[2020-01-14] MEDS: IPRATROPIUM BROMIDE NEB SOLN 0.02% 2.5 ML VIAL INH SCH ×4 (07:19→19:35)
[2020-01-14] MEDS: LEVALBUTEROL 1.25MG/0.5ML NEB INH SCH ×4 (07:19→19:36)
[2020-01-14 07:24] LABS: BUN Creatinine Ratio 13.9 (10-20); Calcium 8.1 mg/dl (8.5-10.1); Est GFR (African American) 55.9; Est GFR (Non-African American) 48.3; Magnesium 2.2 mg/dl (1.8-2.4); Potassium 4.4 mmol/L (3.5-5.1)
[2020-01-14] MEDS ORDERED: HEPARIN IV BOLUS 4,500 UNITS in SYRINGE 0 ML IV ONE ×2 (08:00→16:00)
--- NOTE | 2020-01-14 08:15 | XRay Report ---
XR chest 1V portable HISTORY: tachypnea COMPARISON: Chest 01/12/2020. FINDINGS: No pneumothorax. Interval progression of the interstitial vascular thickening as well as th e bilateral pleural effusions. The heart remains enlarged. This is consistent with moderate pulmonary edema. Hazy appearance the right midlung zone may represent fluid within the minor fissure. Bibasila r densities also persist. This favors atelectasis but could represent pneumonia. Large hiatus hernia. Calcified bilateral pleural plaques. IMPRESSION: 1. Interval progression of the moderate pulmonary edema and bilateral pleural effusions. 2. Bibasilar densities persist. 3. Large hiatal hernia. 4. Bilateral calcified pleural plaques. ACT 112: Negative or not required by law. Electronically signed by: Roberto Berger M.D. 01/14/2020 8:14 AM
[2020-01-14] MEDS: LACTOBACILLUS ACIDOPHILUS (FLORANEX) TAB PO SCH ×4 (08:23→21:59)
[2020-01-14] MEDS: FLUTICASONE FUROATE 200MCG 14 PUFFS/INHALER INH SCH (08:23)
[2020-01-14] MEDS: CLOPIDOGREL BISULFATE 75 MG TAB PO SCH (08:25)
[2020-01-14] MEDS: PANTOprazole 40 MG TAB PO SCH (08:25)
--- NOTE | 2020-01-14 09:51 | Cardiology Progress Note ---
Date of Service January 14, 2020 Assessment & Plan (1) Atrial flutter with rapid ventricular response: (2) Diarrhea: (3) Dehydration: (4) Pneumonia: (5) Toe osteomyelitis: (6) Venous stasis ulcer: (7) Peripheral arterial occlusive disease: (8) H/O atrial flutter: Patient presented with symptomatic pneumonia. Blood cultures are currently pending. Started on antibiotic therapy. Was in atrial flutter with rapid ventricular response upon arrival and has remained in atrial flutter with rapid ventricular response/variable response continuously. Remote history postoperatively without recurrence Rates are now well controlled on IV Cardizem and p.o. metoprolol. Patient now very confused and agitated not following commands. May need to consider discontinuation of heparin drip should the patient become a fall risk. We will hold off on oral anticoagulants given the fact I do not believe him to be a long-term anticoagulation candidate. We will continue IV Cardizem at this time as long as he remains confused but will change to p.o. once following commands. Admission and Anticipated Discharge Date Admission Date: January 11, 2020 Subjective Patient seen and examined, chart reviewed. Patient very confused and agitated this morning. Nursing reports he did not sleep overnight. Answers some questions appropriately his only complaint is that of not being able to get up and walk around. No reports of chest pain, shortness of breath, palpitations, lightheadedness or other complaints overnight. Telemetry reviewed: Atrial flutter with variable rate response rate controlled in the 60s to 80s. Review of Systems Review of Systems: Unobtainable due to cognitive status Physical Exam Physical Exam: General: Awake, alert and oriented x 0. No acute distress. HEENT: Normocephalic, atraumatic. Pupils equal, round and reactive to light and accommodation. Extraocular muscles are intact. Anicteric sclera. Moist mucous membranes. Neck: No JVD. No bruit. Cardiovascular: irregularly irregular, unable to appreciate murmur, rub or gallop. Pulmonary: Clear to auscultation bilaterally. No rales, rhonchi, or wheezing. Abdomen: Bowel sounds x 4, soft. No rebound, guarding or tenderness. No organomegaly. Extremities: No clubbing, cyanosis or edema. +2 pedal pulses bilaterally. Skin: Warm and dry. Results & Data ([facility]) Vital Signs (Past 12 Hours) Vital Signs Temp Pulse Resp BP Pulse Ox 01/14/20 06:52 36.6 C 77 18 137/81 90 01/14/20 04:50 36.4 C L 132 H 30 H 136/105 H 91 01/14/20 01:18 98 H 26 H 90 01/14/20 00:05 106 H 20 92 01/13/20 23:29 36.7 C 99 H 20 177/113 H 94 (1) Diarrhea Diarrhea type: unspecified type Qualified Code(s): R19.7 - Diarrhea, unspecified (2) Pneumonia Laterality: right Lung location: lower lobe of lung Pneumonia type: due to unspecified organism Qualified Code(s): J18.9 - Pneumonia, unspecified organism (3) Venous stasis ulcer Venous stasis ulcer site: calf Varicose vein presence: unspecified whether present Laterality: right Non-pressure ulcer stage: limited to breakdown of skin Qualified Code(s): I83.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
[2020-01-14] MEDS: allopurinoL 300 MG TAB PO SCH (10:03)
[2020-01-14] MEDS: ATORVASTATIN 40 MG TAB PO SCH (10:03)
[2020-01-14] MEDS: LEVOTHYROXINE SODIUM 50 MCG TABLET PO SCH (10:03)
[2020-01-14] MEDS: HEPARIN SODIUM/DEXTROSE 25,000 UNITS/500 ML BAG IV SCH (11:02)
[2020-01-14] MEDS ORDERED: HALOPERIDOL LACTATE 5 MG/ML 1 ML VIAL IM ONE (12:00)
[2020-01-14] MEDS ORDERED: HALOPERIDOL LACTATE 5 MG/ML 1 ML VIAL ONE (12:04)
[2020-01-14] MEDS: FUROSEMIDE 40 MG in SYRINGE 0 ML IV SCH (12:57)
[2020-01-14] MEDS ORDERED: DOXYCYCLINE HYCLATE 100 MG CAP PO SCH (13:20)
--- NOTE | 2020-01-14 15:21 | XRay Report ---
XR chest 1V portable HISTORY: Shortness of breath. COMPARISON: Chest 01/14/2020. FINDINGS: No pneumothorax. The heart remains enlarged. Moderate pulmonary edema and bilateral pleural effusions are again noted. Bibasilar airspace opacities persist. Large hiatus hernia. Calcified pleu ral plaques are again noted. IMPRESSION: No significant change in the pulmonary edema, bilateral pleural effusions, and bibasilar airspace opa cities. ACT 112: Negative or not required by law. Electronically signed by: Roberto Berger M.D. 01/14/2020 3:19 PM
[2020-01-14 15:35] LABS: Base Excess ABG 0.3 mEq/L (-9-1.8); HCO3 ABG 25 mmol/L (19-24); Oxygen Saturation ABG 91.6 % (90-95); PCO2 ABG 39 mmHg (35-46); PO2 ABG 64 mmHg (80-95); pH ABG 7.42 (7.35-7.45)
[2020-01-14 15:43] LABS: Partial Thromboplastin Ratio 1.4; Partial Thromboplastin Time 38.7 Seconds (21.0-31.0)
[2020-01-14 15:48] LABS: Allen Test POS (Pos)
--- NOTE | 2020-01-14 16:15 | Hospitalist Progress Note ---
Date of Service January 14, 2020 Assessment & Plan (1) Pneumonia: Possible Aspiration pneumonia Acute on Chronic respiratory failure with hypoxia--oxygen dependent Pulmonary edema B/L Pleural effusions H/O COPD on chronic Prednisone H/O esophageal dysmotility, hiatal hernia Noncompliant with home supplemental oxygen use CXR:Right lower lung zone airspace opacity suspicious for pneumonia. Heart is enlarged. large hiatal hernia. Pleural calcifications present. There are scattered calcified granulomas. Negative Biofire Normal Procalcitonin Blood Culture: No growth to date Aspiration precautions Speech therapy eval Continue Zosyn, added Doxycycline Continue supplemental oxygen as needed Continue home inhalers Received Solu-medrol overnight Continue home prednisone Continue Nebs Continue slippery diet as per speech therapy Plan for video swallow eval as able Check MRSA Screen Cautious use of IV Lasix given severe Aortic stenosis Atrial flutter with RVR H/O Atrial Flutter Missed taking his home medications on presentation as per patient's daughter Monitor on Tele Continue IV Cardizem, IV heparin Likely not a candidate for long-term anticoagulation Appreciate cardiology input Continue metoprolol Rate is controlled currently Acute Metabolic Encephalopathy Delirium could be contributing as well Hold Gabapentin, Tolterodine, Mirabegron Reorient frequently Chronic Diarrhea Dehydration on presentation Ongoing diarrhea intermittently since many weeks Hold Magnesium Oxide Check stool studies if reoccurs May need colonoscopy eventually as outpatient Chronic venous insufficiency Peripheral artery disease S/P angioplasty of the right posterior tibial artery S/P endovenous ablation by Dr. Kendrick Continue Plavix, Lipitor Hypothyroidism Normal TSH Continue levothyroxine Moderate to severe aortic stenosis H/O Chronic diastolic heart failure Dehydrated on presentation Suggested to have TAVR by Cardiology as outpatient Patient currently prefers to avoid surgery Cardiology on board Monitor Volume status closely On Lasix at home Dyslipidemia Continue Statin CKD III Monitor renal function Avoid nephrotoxic agents as able DVT Px: on IV Heparin Code Status Full Code May need to readdress code status if clinically deteriorates Disposition To be determined PT/OT prior to discharge Admission and Anticipated Discharge Date Admission Date: January 11, 2020 Subjective Patient is seen and examined at bedside Mild respiratory distress during my encounter Poor appetite Discussed with patient's daughter over phone Heart rate is controlled while on IV Cardizem drip Continues to have cough and reports dyspnea Confused and agitated intermittently Respiratory distress overnight, chest x-ray suggestive of pulmonary edema with bilateral pleural effusions Review of Systems Review of Systems: Unobtainable due to cognitive status Physical Exam Physical Exam: Physical Exam: Vitals signs as noted above General Appearance:Moderately built and nourished, Chronic ill appearing Head: normocephalic, Atraumatic Eyes: normal inspection, EOMI Neck: supple, Trachea midline Respiratory/Chest: Decreased breath sounds, B/L rales, Tachypnea Cardiovascular: Irregularly irregular, + systolic murmur, Abdomen/GI:Soft, Non tender, Bowel sounds present Extremities/Musculoskelatal:normal inspection, Trace B/L LE edema Neurologic/Psych:Alert, awake, grossly no focal neurological deficits, confused Skin: normal color, warm Results & Data Results & Data ([facility]) Vital Signs (Past 12 Hours) Vital Signs Temp Pulse Resp BP BP Pulse Ox 01/14/20 14:59 35.7 C L 74 26 H 144/58 H 86 L 01/14/20 11:00 35.7 C L 65 22 145/68 H 97 01/14/20 06:52 36.6 C 77 18 137/81 90 01/14/20 04:50 36.4 C L 132 H 30 H 136/105 H 91 (1) Pneumonia Laterality: right Lung location: lower lobe of lung Pneumonia type: due to unspecified organism Qualified Code(s): J18.9 - Pneumonia, unspecified organism
--- NOTE | 2020-01-14 18:09 | Critical Care Consultation ---
Date of Consultation January 14, 2020 Assessment & Plan (1) Aortic stenosis: 89-year-old male with a past medical history of severe aortic stenosis, grade 2 diastolic dysfunction, secondary pulmonary hypertension, CKD and osteoarthritis who is presenting to the ICU due to acute hypoxemic respiratory failure. I will obtain a CT of his head due to his altered mental status. He does not appear hypercapnic. We will stop BiPAP and transition to oxygen via nasal cannula given that he has hypoxemia and no evidence of hypercapnia. Altered mental status likely related to delirium. Must rule out head bleed given the fact that he is on dual antiplatelets and heparin. If agitation persists, can use low-dose Precedex. Obtain EKG and troponins. Continue judicious diuresis. BiPAP/high flow nasal cannula on a as needed basis. We will hold anticoagulation at this time for the possibility of a therapeutic and diagnostic thoracentesis. Patient is currently on aspirin and Plavix, but these will need to be continued given his cardiac status. Continue empiric antibiotics for possible pneumonia. Rate control strategies per cardiology including diltiazem and metoprolol. Patient is chronically on p.o. prednisone. Continue this medication to prevent adrenal insufficiency. Continue close ICU monitoring. I have personally spent 38 minutes of critical care time in the direct management of this patient. This is a life/limb threatening event. This includes time spent evaluating patient, direct bedside care, chart review, placing orders, interpretation of diagnostic studies, discussion with consultants, patient, and family members, as well as other required patient management activities. This time is exclusive of all separately billable procedures, and teaching time and separate from and in addition to any other critical care service time. Thank you for allowing us to participate in the care of this patient. (2) Acute and chronic respiratory failure with hypoxia: (3) Hypoxia: (4) Atrial flutter with rapid ventricular response: (5) Altered mental status: History of Present Illness Reason for Consultation: Acute respiratory failure Requesting Physician: Hospitalist service Attending Physician: Louie Ramos MD History of Present Illness 89-year-old male with a past medical history of moderate to severe aortic stenosis who is not a candidate for TAVR, BPH, chronic diastolic heart failure, CKD stage III, dysphasia, COPD, peptic ulcer disease and osteoarthritis who presented to the hospital due to dehydration, shortness of breath and decreased appetite over the last several weeks. Patient also complained of u rinary hesitancy on admission on January 11, 2020. Since the hospitalization he has been treated for possible aspiration pneumonia and atrial fibrillation with rapid ventricular response. He is currently on a diltiazem drip. Cardiology is following the patient. Patient is also on a heparin drip. Patient was agitated this afternoon and received 2.5 mg of Haldol. Around 5 PM BiPAP was placed due to hypoxia and altered mental status. ABG earlier today demonstrated hypoxemia with no evidence of hypercapnia. Patient unable to give any history due to altered mental status. Allergies Allergy/AdvReac Type Severity Reaction Status Date / Time morphine Allergy Unknown "out of it Verified 01/11/20 11:32 for days" [place] [employer] AdvReac Intermediate STOMACH Verified 01/11/20 11:32 ACHE FROM [employer] tomato AdvReac Intermediate HEADACHE Verified 01/11/20 11:32 FROM [facility]ICE colchicine AdvReac Mild GI upset Verified 01/11/20 11:32 Home Medications Home Medications Medication Instructions Recorded Confirmed Type allopurinol 300 mg tablet 300 mg PO QAM #90 tab 01/05/19 01/11/20 History atorvastatin 40 mg tablet 40 mg PO QAM #90 tab 01/05/19 01/11/20 History clopidogrel 75 mg tablet 75 mg PO QAM #30 tab 01/05/19 01/11/20 History Asmanex Twisthaler 2 inh INHALATION BID 03/24/19 01/11/20 History Combivent Respimat 1 puff INHALATION QID PRN 03/24/19 01/11/20 History Men's Daily Multivit-Mineral 1 tab PO DAILY 03/24/19 01/11/20 History cholecalciferol (vitamin D3) 2,000 unit PO PM 03/24/19 01/11/20 History [Vitamin D3] gabapentin 300 - 600 mg PO TID PRN 03/24/19 01/11/20 History magnesium oxide 400 mg PO BID 03/24/19 01/11/20 History metoprolol succinate 50 mg PO QAM 03/24/19 01/11/20 History ondansetron HCl [Zofran] 4 mg PO Q8H PRN 03/24/19 01/11/20 History pantoprazole 40 mg PO QAM 03/24/19 01/11/20 History prednisone 5 mg PO QAM 03/24/19 01/11/20 History tramadol 50 - 100 mg PO Q6H PRN 03/24/19 01/11/20 History vitamin B complex [Super B-50 1 cap PO PM 03/24/19 01/11/20 History Complex] furosemide 20 mg tablet 20 mg PO UD tab 05/05/19 01/11/20 History amlodipine 2.5 mg PO QAM 09/17/19 01/11/20 History ferrous sulfate 325 mg PO DAILY 09/17/19 01/11/20 History dutasteride 0.5 mg capsule 0.5 mg PO DAILY #90 cap 10/15/19 01/11/20 Rx mirabegron 50 mg tablet,extended 50 mg PO DAILY #90 tab 12/07/19 01/11/20 Rx release 24 hr tamsulosin 0.4 mg capsule 0.4 mg PO QPM #90 cap 12/07/19 01/11/20 Rx tolterodine 4 mg capsule,extended 4 mg PO DAILY #90 cap 12/07/19 01/11/20 Rx release 24 hr levothyroxine 50 mcg PO QAM 01/11/20 01/11/20 History Patient History Medical History (Updated 01/14/20 @ 18:19 by Amadeo Ramirez MD) MAXI (acute kidney injury) Most recent BMP WNL 08/24/19 Altered mental status Amputation of toe LEFT/RT SECOND TOE Anemia Aortic stenosis Per echo 03/2019 -- SEVERE. FCO 0.61cm, mean gradient 38.2. Symptomatic, dyspnea (but also has COPD). Following with Dr. Huntley ([facility]) with serial echos q 6mo to evaluate for possible TAVR. Last office visit was 02/05/19, was to f/u in 6 months with new echo but not done due to covid19 pandemic. Did have telehealth visit 09/16 with regular repairer controller tester. Cardio aware of upcoming toe amputation. BPH (benign prostatic hypertrophy) Chronic diastolic heart failure Chronic venous insufficiency CKD (chronic kidney disease), stage III COPD (chronic obstructive pulmonary disease) Dyslipidemia Dysphagia Elevated PSA Esophageal dysmotility GERD (gastroesophageal reflux disease) Gout H/O atrial flutter "occurred postoperatively in 01/2014, converted to sinus rhythm with IV diltiazem" H/O diastolic dysfunction Grade II per 03/2019 echo Hiatal hernia History of duodenal ulcer History of heart valve insufficiency Mild TR History of kidney stones Hypertension Neuropathy Nocturnal hypoxemia On home oxygen therapy WEARS O2 AT 2L AT HS Osteoarthritis Osteoporosis Peripheral vascular disease s/p angioplasty of right posterior tibial artery Psoriatic arthritis Renal lesion Stage II pressure ulcer of ankle Tobacco abuse Toe osteomyelitis Umbilical hernia Urinary incontinence Urinary retention Venous stasis ulcer Volvulus of stomach Surgical History Family history of reaction to anesthesia DAUGHTER-NAUSEA/VOMITTING History of angioplasty of peripheral vessel History of cardiac cath 1 YEAR AGO AT [facility] History of cataract surgery RT/LEFT History of colonoscopy History of esophagogastroduodenoscopy (EGD) History of lithotripsy History of lumbar fusion History of tooth extraction Status post endovenous radiofrequency ablation of saphenous vein Family History Mother Colorectal cancer Sister Breast cancer Lung cancer Father Parkinson disease Brother Nephrolithiasis Social History Smoking Status: Former smoker Tobacco Type: Cigarettes Second Hand Exposure: No; Hx Alcohol Use: No Hx Substance Use: No Preferred Language: Urdu Communication Ability: Impaired Visual Impairment: Limited Hearing Ability: Normal [employer] Required: No Beliefs That Will Affect Care: None marital status: / Current Living Situation: Family Current Living Situation Comment: son lives with him current occupational status: retired Other Information That Helps Us Care for You: No other: walks with walker Feels Safe at Home: Yes Safety Concerns: Feels Safe At This Time Assistive Devices: Oxygen - Continuous and Walker Review of Systems Review of Systems: Unobtainable due to cognitive status Physical Exam Constitutional: Patient is confused in mild distress. Currently saturating well on nasal cannula. Eyes: PERRL, conjunctivae normal, anicteric sclerae ENMT: external ear and nose normal, oropharynx normal Neck: normal visual inspection Respiratory: Decreased at the bases bilaterally. Mild crackles. Cardiovascular: Rate/Rhythm: + irregularly irregular Extremities: no edema Gastrointestinal (Abdomen): normal bowel sounds, soft, nontender, no hepatosplenomegaly Musculoskeletal: no cyanosis or clubbing, extremities motor strength 5/5 Skin: no rashes, warm and dry Neurologic: PERRL, EOMI, accommodation nl, no face palsy, no dysarthria Psychiatric: A+Ox3, euthymic affect Results & Data Results & Data ([facility]) Vital Signs (Past 12 Hours) Vital Signs Temp Pulse Pulse Resp BP BP Pulse Ox 01/14/20 17:38 82 32 H 99 01/14/20 17:36 70 40 H 92 01/14/20 14:59 96.3 F L 74 26 H 144/58 H 86 L 01/14/20 11:00 96.3 F L 65 22 145/68 H 97 01/14/20 06:52 97.9 F 77 18 137/81 90 I reviewed vital signs, labs and imaging Coding Level of Care Code Critical Care 1st 30-74 mins Diagnoses Aortic stenosis I35.0 Acute and chronic respiratory failure with hypoxia J96.21 Hypoxia R09.02 Atrial flutter with rapid ventricular response I48.92 Altered mental status R41.82 Time Spent (min) 38
[2020-01-14] MEDS ORDERED: STAT IV Infusion **Titration per Protocol STA (18:44)
[2020-01-14] MEDS: DEXMEDETOMIDINE HCL 200 MCG in SODIUM CHLORIDE 0.9% 48 ML IV SCH ×2 (18:56→21:57)
[2020-01-14] MEDS: CHOLECALCIFEROL 1,000 UNITS 25 MCG TAB PO SCH (21:59)
[2020-01-14] MEDS: TAMSULOSIN HCL 0.4 MG CAP PO SCH (21:59)
[2020-01-15] MEDS: LEVALBUTEROL 1.25MG/0.5ML NEB INH SCH ×4 (00:56→19:22)
[2020-01-15] MEDS: IPRATROPIUM BROMIDE NEB SOLN 0.02% 2.5 ML VIAL INH SCH ×4 (00:56→19:22)
[2020-01-15] MEDS: DEXMEDETOMIDINE HCL 400 MCG in 0.9 % SODIUM CHLORIDE 96 ML IV SCH ×2 (02:39→17:30)
[2020-01-15] MEDS: LEVOTHYROXINE SODIUM 50 MCG TABLET PO SCH (05:32)
[2020-01-15 06:29] LABS: Hematocrit (blood only) 32.5 % (42-52); Hemoglobin 10.2 g/dL (14.0-18.0); Immature Granulocytes # (auto) 0.02 K/uL (0.00-0.02); Immature Granulocytes % (auto) 0.2 %; Lymphocytes # (auto) 0.64 K/uL (1.2-3.4); Lymphocytes % (auto) 6.2 %; Mean Corpuscular Hemoglobin 25.8 pg (25-34); Mean Corpuscular Hgb Conc 31.4 g/dL (32-36); Mean Corpuscular Volume 82.1 fL (80-100); Mean Platelet Volume 10.1 fL (7.4-10.4); Monocytes # (auto) 0.61 K/uL (0.11-0.59); Monocytes % (auto) 5.9 %; Neutrophils # (auto) 9.13 K/uL (1.4-6.5); Neutrophils % (auto) 87.7 %; Platelet Count 236 K/uL (130-400); RDW Coefficient of Variation 15.4 % (11.5-14.5); RDW Standard Deviation 46.4 fL (36.4-46.3); Red Blood Count 3.96 M/uL (4.7-6.1)
[2020-01-15 06:43] LABS: INR 1.1 (0.9-1.1); Partial Thromboplastin Time 26.7 Seconds (21.0-31.0); Prothrombin Time 11.4 Seconds (9.0-12.0)
[2020-01-15] MEDS: DEXMEDETOMIDINE HCL 200 MCG in SODIUM CHLORIDE 0.9% 48 ML IV SCH ×2 (06:45→22:42)
--- NOTE | 2020-01-15 06:55 | CT Scan Report ---
CT head/brain wo con CLINICAL HISTORY: Altered mental status on anticoagulation COMPARISON STUDY: 01/20/2018 TECHNIQUE: Axial CT of the brain is performed from the vertex to the skull base. IV contrast was not administered for this examination. A dose lowering technique was utilized adhering to the principles of ALARA. CT DOSE: 3464.74 mGy.cm FINDINGS: No intra or extra-axial mass lesions are visualized. There is no CT evidence of acute cortical infarc tion. There is no evidence of midline shift. There is no acute hemorrhage. No calvarial fractures ar e visualized. There are patchy white matter hypodensities likely on a small vessel basis. There is basal ganglial m ineralization. There is mild ventricular dilatation, finding unchanged from the prior study and felt to be secondary to volume loss. There is no evidence of acute sinusitis IMPRESSION: No acute intracranial findings ACT 112: Negative or not required by law. Electronically signed by: Naeem Mckeon M.D. 01/15/2020 6:54 AM
[2020-01-15 07:02] LABS: BUN Creatinine Ratio 19.5 (10-20); Calcium 8.1 mg/dl (8.5-10.1); Creatinine Clr Calc Pharmacy 40.9 ml/min; Est GFR (African American) 51.6; Est GFR (Non-African American) 44.5; Magnesium 2.4 mg/dl (1.8-2.4); Potassium 4.3 mmol/L (3.5-5.1)
[2020-01-15 07:12] LABS: Phosphorus 2.3 mg/dl (2.5-4.9); Troponin I 0.05 ng/ml (0-0.045)
[2020-01-15 08:02] LABS: Estimated Average Glucose 140 mg/dl; Hemoglobin A1C 6.5 % (4.5-5.6)
--- NOTE | 2020-01-15 08:10 | Critical Care Progress Note ---
Date of Service January 15, 2020 Assessment & Plan (1) Aortic stenosis: 89-year-old male with a past medical history of severe aortic stenosis, grade 2 diastolic dysfunction, secondary pulmonary hypertension, CKD and osteoarthritis who is presenting to the ICU due to acute hypoxemic respiratory failure. CT head with no evidence of a head bleed. He does not appear hypercapnic. Continue to maintain saturations between 88 and 92%. Altered mental status likely related to delirium. We will continue to wean Precedex as he does appear lethargic. Troponins with mild elevation likely related to demand ischemia. Continue judicious diuresis in the setting of severe aortic stenosis. BiPAP/high flow nasal cannula on a as needed basis. I performed a [id number] ultrasound which did not demonstrate any significant effusions. He did have small bilateral effusions. Continue aspirin and Plavix. Transition to IV ceftriaxone for possible complicated urinary tract infection given the evidence of bacteria and trace leukoesterase in the urine. Rate control strategies per cardiology. Holding p.o. medications. Patient is chronically on p.o. prednisone. Continue this medication to prevent adrenal insufficiency. Continue close ICU monitoring. I have personally spent 32 minutes of critical care time in the direct management of this patient. This is a life/limb threatening event. This includes time spent evaluating patient, direct bedside care, chart review, placing orders, interpretation of diagnostic studies, discussion with consultants, patient, and family members, as well as other required patient management activities. This time is exclusive of all separately billable procedures, and teaching time and separate from and in addition to any other critical care service time. Thank you for allowing us to participate in the care of this patient. (2) Acute and chronic respiratory failure with hypoxia: (3) Hypoxia: (4) Atrial flutter with rapid ventricular response: (5) Altered mental status: (6) Complicated UTI (urinary tract infection): Admission and Anticipated Discharge Date Admission Date: January 11, 2020 Subjective Patient is currently on 0.3 of Precedex. He is confused and moaning words that time. He is currently on 3 L via oxygen mask. No significant issues overnight. Diltiazem drip was stopped overnight due to bradycardia. Review of Systems Review of Systems: Unobtainable due to cognitive status Physical Exam Constitutional: Patient is confused in mild distress. Currently saturating well on nasal cannula. Eyes: PERRL, conjunctivae normal, anicteric sclerae ENMT: external ear and nose normal, oropharynx normal Neck: normal visual inspection Respiratory: Decreased at the bases bilaterally. Mild crackles. Cardiovascular: Rate/Rhythm: + irregularly irregular Extremities: no edema Gastrointestinal (Abdomen): normal bowel sounds, soft, nontender, no hepatosplenomegaly Musculoskeletal: no cyanosis or clubbing, extremities motor strength 5/5 Skin: no rashes, warm and dry Neurologic: PERRL, EOMI, accommodation nl, no face palsy, no dysarthria Psychiatric: A+Ox3, euthymic affect Results & Data Results & Data ([facility]) Vital Signs (Past 12 Hours) Vital Signs Temp Pulse Pulse Resp BP Pulse Ox 01/15/20 06:41 62 27 H 134/81 98 01/15/20 06:11 62 24 123/76 98 01/15/20 05:41 59 L 27 H 134/76 98 01/15/20 05:10 67 27 H 134/86 98 01/15/20 04:42 67 26 H 124/90 99 01/15/20 04:11 65 26 H 109/73 99 01/15/20 04:00 97.9 F 01/15/20 03:41 58 L 27 H 107/66 98 01/15/20 03:10 61 28 H 127/70 99 01/15/20 02:40 66 29 H 123/75 100 01/15/20 02:11 71 23 117/83 96 01/15/20 01:11 79 25 H 148/94 H 93 01/15/20 00:56 59 L 22 96 01/15/20 00:40 56 L 25 H 112/74 97 01/15/20 00:10 57 L 27 H 112/62 96 01/15/20 00:00 97.9 F 01/14/20 23:40 63 25 H 124/73 96 01/14/20 23:10 63 27 H 138/89 95 01/14/20 22:10 53 L 27 H 108/58 L 97 01/14/20 21:51 53 L 28 H 102/62 97 01/14/20 21:39 58 L 23 128/76 98 01/14/20 20:56 56 L 20 105/66 01/14/20 20:30 58 L 31 H 88/54 L 91 01/14/20 20:27 65 32 H 89/55 L 90 01/14/20 20:18 60 34 H 88/53 L 91 01/14/20 20:13 60 27 H 92/51 L 91 I reviewed vital signs, labs and imaging Coding Level of Care Code Critical Care 1st 30-74 mins Diagnoses Aortic stenosis I35.0 Acute and chronic respiratory failure with hypoxia J96.21 Hypoxia R09.02 Atrial flutter with rapid ventricular response I48.92 Altered mental status R41.82 Complicated UTI (urinary tract infection) N39.0 Time Spent (min) 32
[2020-01-15] MEDS ORDERED: Nursing to Pharmacy Communication SCH (08:30)
[2020-01-15] MEDS: LACTOBACILLUS ACIDOPHILUS (FLORANEX) TAB PO SCH ×4 (09:04→20:58)
[2020-01-15] MEDS: HEPARIN SODIUM/DEXTROSE 25,000 UNITS/500 ML BAG IV SCH (09:17)
[2020-01-15] MEDS ORDERED: SODIUM PHOSPHATE 15 MMOL in SODIUM CHLORIDE 0.9% 250 ML IV ONE (10:00)
[2020-01-15] MEDS: ATORVASTATIN 40 MG TAB PO SCH (10:03)
[2020-01-15] MEDS: PANTOprazole 40 MG TAB PO SCH (10:03)
[2020-01-15] MEDS: CLOPIDOGREL BISULFATE 75 MG TAB PO SCH (10:03)
[2020-01-15] MEDS: allopurinoL 300 MG TAB PO SCH (10:03)
[2020-01-15] MEDS: predniSONE 5 MG TAB PO SCH (10:03)
[2020-01-15] MEDS: cefTRIAXone SODIUM 2,000 MG in DEXTROSE 5% 50 ML IV SCH (10:12)
[2020-01-15] MEDS: FUROSEMIDE 40 MG in SYRINGE 0 ML IV SCH (10:12)
[2020-01-15] MEDS: FLUTICASONE FUROATE 200MCG 14 PUFFS/INHALER INH SCH (10:13)
--- NOTE | 2020-01-15 10:54 | Cardiology Progress Note ---
Date of Service January 15, 2020 Assessment & Plan (1) Atrial flutter with rapid ventricular response: (2) Diarrhea: (3) Dehydration: (4) Pneumonia: (5) Toe osteomyelitis: (6) Venous stasis ulcer: (7) Peripheral arterial occlusive disease: (8) H/O atrial flutter: (9) Acute and chronic respiratory failure with hypoxia: Patient presented with symptomatic pneumonia. Started on antibiotic therapy. Was in atrial flutter with rapid ventricular response upon arrival and has remained in atrial flutter with rapid ventricular response/variable response continuously. Remote history postoperatively without recurrence Acute respiratory failure overnight due to volume overload. Responding well to treatment now on nasal cannula supplementation only. Cardizem has been weaned off and his heart rates are now well controlled will not restart. Will continue IV heparin for now but again does not appear to be a long-term anticoagulation candidate. Admission and Anticipated Discharge Date Admission Date: January 11, 2020 Subjective Patient seen and examined, chart reviewed. His daughter was at the bedside and I reviewed his condition with her at great lengths. Events of overnight noted. Patient remains confused. No report of symptoms being voiced by nursing. Telemetry reviewed: Atrial fibrillation rate controlled. Review of Systems Review of Systems: Unobtainable due to mental health condition Physical Exam Physical Exam: General: Awake. No acute distress. HEENT: Normocephalic, atraumatic. Pupils equal, round and reactive to light and accommodation. Extraocular muscles are intact. Anicteric sclera. Moist mucous membranes. Neck: No JVD. No bruit. Cardiovascular: irregularly irregular, unable to appreciate murmur, rub or gallop. Pulmonary: Poor inspiratory effort with scattered crackles and bibasilar rales. No wheezing. Abdomen: Bowel sounds x 4, soft. No rebound, guarding or tenderness. No organomegaly. Extremities: No clubbing, cyanosis or edema. +2 pedal pulses bilaterally. Skin: Warm and dry. Results & Data ([facility]) Vital Signs (Past 12 Hours) Vital Signs Temp Pulse Pulse Resp BP Pulse Ox 01/15/20 10:00 66 21 97 01/15/20 09:45 58 L 21 97 01/15/20 09:41 66 21 129/91 96 01/15/20 09:30 87 17 98 01/15/20 09:15 60 15 98 01/15/20 09:11 66 22 145/74 H 98 01/15/20 09:00 58 L 22 96 01/15/20 08:45 57 L 24 96 01/15/20 08:41 65 23 131/78 96 01/15/20 08:30 61 22 97 01/15/20 08:15 66 25 H 97 01/15/20 08:13 36.6 C 64 24 128/79 98 01/15/20 08:00 55 L 22 96 01/15/20 07:45 57 L 26 H 99 01/15/20 07:40 57 L 25 H 125/78 99 01/15/20 07:30 61 26 H 99 01/15/20 07:15 61 25 H 98 01/15/20 07:11 56 L 25 H 127/88 98 01/15/20 07:00 67 23 97 01/15/20 06:45 61 25 H 98 01/15/20 06:42 57 L 25 H 98 01/15/20 06:41 62 27 H 134/81 98 01/15/20 06:11 62 24 123/76 98 01/15/20 05:41 59 L 27 H 134/76 98 01/15/20 05:10 67 27 H 134/86 98 01/15/20 04:42 67 26 H 124/90 99 01/15/20 04:11 65 26 H 109/73 99 01/15/20 04:00 36.6 C 01/15/20 03:41 58 L 27 H 107/66 98 01/15/20 03:10 61 28 H 127/70 99 01/15/20 02:40 66 29 H 123/75 100 01/15/20 02:11 71 23 117/83 96 01/15/20 01:11 79 25 H 148/94 H 93 01/15/20 00:56 59 L 22 96 01/15/20 00:40 56 L 25 H 112/74 97 01/15/20 00:10 57 L 27 H 112/62 96 01/15/20 00:00 36.6 C 01/14/20 23:40 63 25 H 124/73 96 01/14/20 23:10 63 27 H 138/89 95 (1) Diarrhea Diarrhea type: unspecified type Qualified Code(s): R19.7 - Diarrhea, unspecified (2) Venous stasis ulcer Laterality: right Non-pressure ulcer stage: limited to breakdown of skin Varicose vein presence: unspecified whether present Venous stasis ulcer site: calf Qualified Code(s): I83.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
[2020-01-15] MEDS ORDERED: METOPROLOL TARTRATE 1 MG/ML VIAL IV STA (11:05)
[2020-01-15] MEDS ORDERED: OLANZapine 10 MG/2.1 ML SDV IM STA (11:05)
--- NOTE | 2020-01-15 12:02 | Electrocardiogram Report ---
Test Reason : Blood Pressure : / mmHG Vent. Rate : 141 BPM Atrial Rate : 000 BPM P-R Int : 000 ms QRS Dur : 108 ms QT Int : 280 ms P-R-T Axes : 000 -59 094 degrees QTc Int : 429 ms Supraventricular tachycardia , cannot exclude sinus tacycardia or atrial flutter Left anterior fascicular block Left ventricular hypertrophy with repolarization abnormality ( R in aVL , Kwasi product , Romhilt-E stes ) Abnormal ECG When compared with ECG of 11-JAN-2020 10:06, ST no longer depressed in Inferior leads ST less depressed in Lateral leads Reconfirmed by Cameron Alvarado ([id number]) on 01/15/2020 1:10:50 PM Referred By: REFERRED SELF Confirmed By:Cameron Alvarado
--- NOTE | 2020-01-15 12:43 | Electrocardiogram Report ---
Test Reason : Blood Pressure : / mmHG Vent. Rate : 072 BPM Atrial Rate : 256 BPM P-R Int : 000 ms QRS Dur : 118 ms QT Int : 488 ms P-R-T Axes : 029 -20 -12 degrees QTc Int : 534 ms Atrial flutter with variable A-V block Left ventricular hypertrophy with QRS widening Abnormal ECG When compared with ECG of 13-JAN-2020 07:03, (unconfirmed) Vent. rate has decreased BY 69 BPM QRS axis Shifted right ST elevation has replaced ST depression in Lateral leads T wave inversion now evident in Inferior leads Confirmed by Cameron Alvarado ([id number]) on 01/15/2020 12:43:24 PM Referred By: REFERRED SELF Confirmed By:Cameron Alvarado
[2020-01-15] MEDS: METOPROLOL TARTRATE 25 MG TAB PO SCH ×2 (15:10→21:00)
--- NOTE | 2020-01-15 15:24 | Psychiatric Consultation ---
Date of Consultation January 15, 2020 Impression / Recommendations Impression Dr. Jim Crocker was directly involved in review and discussion of the patient's case and participated in medical decision making regarding treatment recommendations. RECOMMENDATIONS: 01/14 - Psychiatric consultation requested by back tufter to evaluate patient for agitated delirium. Pt has required dosing of antipsychotic medications to target agitation: two doses of 2.5mg of olanzapine on 01/13 @ 08:22 and 11:43; a dose of 2.5mg of haloperidol on 01/13 @ 12:15; and 5mg of olanzapine on 01/14 @ 11:30. It is reported that the most favorable response has been to the 5mg dose of olanzapine. Pt is now calm, though still confused and tangential. - Educated daughter on use of antipsychotic medications in the setting of delirium, limited to episodes of agitation that may pose acute risk of harm to the patient or staff. Daughter was educated on the risk of sudden associated with use of these medications in elderly patients. We discussed that risks and benefits of utilizing these medication would need to be weighed on a case by case basis due to this concern. Cardiology is also following the patient at this time. - Recent EKG has shown prolonged QTc: 517 (01/14), 534 (01/13), 429 (01/12), 515 (01/10). Cardiology on board as well. Recommend routinely checking QTc as long as antipsychotic medications are still being required to target his behavioral episodes. - Continue behavioral strategies to minimize agitation related to episodes of confusion, as outlined below. We appreciate the opportunity to participate in the care of this patient. Please reach out to our service with any additional questions or updates. Behavioral Strategies for Delirium: Delirium protocol would suggest patient should be frequently reoriented to person, place, time, event, and intervention to be performed. Pt should be permitted to utilize corrective lenses and assistive hearing devices when appropriate. Permit use of familiar comfort items when appropriate as well. Keep patient awake and active during the day, with light on in room. Conversely, dark room should be maintained at night with sleep being encouraged. Use of prn medications should be limited to behavioral concerns that threaten the safety of the patient or staff, in order to prevent worsening of confusion and excessive sedation Psych History Identifying Data 89-year-old male admitted medically on 01/11/2020 after presenting to the ED with reports of weight loss, diarrhea, SOB, and cough. Pt has extensive medical history and is being treated for pneumonia. Pt developed AMS which presumed to be agitated delirium, it is for this reason that our psychiatry service was consulted. Chief Complaint "Oh, I'm feeling fine." History of Present Illness Marlo Jones is an 89-year-old male admitted medically on 01/11/2020 after presenting to the ED with reports of lack of appetite, diarrhea, SOB, lethargy, and cough. Pt has had episodes of confusion for the past few days, with presumed agitated delirium. Psychiatric consultation was requested by back tufter to provide recommendations for agitated delirium. 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 He asks this provider several times about her children and how they are doing in baseball, despite being told numerous times that this provider does not have children and that we are meeting for the first time today. Patient's daughter, Amena, is at bedside and does provide some valuable collateral information. Daughter admits that patient's current state is far from baseline, that he has been "very sharp" up until his hospitalization. Daughter denies known history of mental health concerns, though admits "he woudn't tell anyone about it if he did..." Patient appears euthymic and denies concerns related to low mood, crying spells, or episodes of intense anxiety. He is unable to tell this provider the reason for his hospitalization or what he is currently being treated for, with conversation generally reverting back to baseball. We did discuss the likelihood of delirium and patient and daughter were educated on causes, general course, and interventions. We reviewed that there have been episodes in which patient has required medications to target agitation/combative behavior related to his confusion. Risks of these medications were discussed, especially given his cardiac history. We reviewed that risks and benefits of these medications are weighed prior to administration and that they are generally reserved for behavior that is likely to lead to acute safety concerns. Pt and daughter verbalized understanding. Pt laughs and says "now, you know, I can't be held accountable for any of that." Overall patient seems to be in good spirits. Pt and daughter's questions were answered and they were encouraged to request our service answer any additional questions as needed. Past Psychiatric History Previous Psych History: Daughter reports patient has no prior psychiatric history. Allergies Allergy/AdvReac Type Severity Reaction Status Date / Time morphine Allergy Unknown "out of it Verified 01/11/20 11:32 for days" [place] [employer] AdvReac Intermediate STOMACH Verified 01/11/20 11:32 ACHE FROM [employer] tomato AdvReac Intermediate HEADACHE Verified 01/11/20 11:32 FROM [facility]ICE colchicine AdvReac Mild GI upset Verified 01/11/20 11:32 Home Medications Home Medications Medication Instructions Recorded Confirmed Type allopurinol 300 mg tablet 300 mg PO QAM #90 tab 01/05/19 01/11/20 History atorvastatin 40 mg tablet 40 mg PO QAM #90 tab 01/05/19 01/11/20 History clopidogrel 75 mg tablet 75 mg PO QAM #30 tab 01/05/19 01/11/20 History Asmanex Twisthaler 2 inh INHALATION BID 03/24/19 01/11/20 History Combivent Respimat 1 puff INHALATION QID PRN 03/24/19 01/11/20 History Men's Daily Multivit-Mineral 1 tab PO DAILY 03/24/19 01/11/20 History cholecalciferol (vitamin D3) 2,000 unit PO PM 03/24/19 01/11/20 History [Vitamin D3] gabapentin 300 - 600 mg PO TID PRN 03/24/19 01/11/20 History magnesium oxide 400 mg PO BID 03/24/19 01/11/20 History metoprolol succinate 50 mg PO QAM 03/24/19 01/11/20 History ondansetron HCl [Zofran] 4 mg PO Q8H PRN 03/24/19 01/11/20 History pantoprazole 40 mg PO QAM 03/24/19 01/11/20 History prednisone 5 mg PO QAM 03/24/19 01/11/20 History tramadol 50 - 100 mg PO Q6H PRN 03/24/19 01/11/20 History vitamin B complex [Super B-50 1 cap PO PM 03/24/19 01/11/20 History Complex] furosemide 20 mg tablet 20 mg PO UD tab 05/05/19 01/11/20 History amlodipine 2.5 mg PO QAM 09/17/19 01/11/20 History ferrous sulfate 325 mg PO DAILY 09/17/19 01/11/20 History dutasteride 0.5 mg capsule 0.5 mg PO DAILY #90 cap 10/15/19 01/11/20 Rx mirabegron 50 mg tablet,extended 50 mg PO DAILY #90 tab 12/07/19 01/11/20 Rx release 24 hr tamsulosin 0.4 mg capsule 0.4 mg PO QPM #90 cap 12/07/19 01/11/20 Rx tolterodine 4 mg capsule,extended 4 mg PO DAILY #90 cap 12/07/19 01/11/20 Rx release 24 hr levothyroxine 50 mcg PO QAM 01/11/20 01/11/20 History Substance Abuse History Denies significant alcohol or tobacco use. Denies use of illicit substances. Personal History Living Arrangements: Home (with son) Employment Status: Retired Marital Status: Patient History Medical History MAXI (acute kidney injury) Most recent BMP WNL 08/24/19 Altered mental status Amputation of toe LEFT/RT SECOND TOE Anemia Aortic stenosis Per echo 03/2019 -- SEVERE. FCO 0.61cm, mean gradient 38.2. Symptomatic, dyspnea (but also has COPD). Following with Dr. Huntley ([facility]) with serial echos q 6mo to evaluate for possible TAVR. Last office visit was 02/05/19, was to f/u in 6 months with new echo but not done due to covid19 pandemic. 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 Cardio aware of upcoming toe amputation. BPH (benign prostatic hypertrophy) Chronic diastolic heart failure Chronic venous insufficiency CKD (chronic kidney disease), stage III Complicated UTI (urinary tract infection) Complicated UTI (urinary tract infection) COPD (chronic obstructive pulmonary disease) Dyslipidemia Dysphagia Elevated PSA Esophageal dysmotility GERD (gastroesophageal reflux disease) Gout H/O atrial flutter "occurred postoperatively in 01/2014, converted to sinus rhythm with IV diltiazem" H/O diastolic dysfunction Grade II per 03/2019 echo Hiatal hernia History of duodenal ulcer History of heart valve insufficiency Mild TR History of kidney stones Hypertension Neuropathy Nocturnal hypoxemia On home oxygen therapy WEARS O2 AT 2L AT HS Osteoarthritis Osteoporosis Peripheral vascular disease s/p angioplasty of right posterior tibial artery Psoriatic arthritis Renal lesion Stage II pressure ulcer of ankle Tobacco abuse Toe osteomyelitis Umbilical hernia Urinary incontinence Urinary retention Venous stasis ulcer Volvulus of stomach Surgical History Family history of reaction to anesthesia DAUGHTER-NAUSEA/VOMITTING History of angioplasty of peripheral vessel History of cardiac cath 1 YEAR AGO AT [facility] History of cataract surgery RT/LEFT History of colonoscopy History of esophagogastroduodenoscopy (EGD) History of lithotripsy History of lumbar fusion History of tooth extraction Status post endovenous radiofrequency ablation of saphenous vein Family History Mother Colorectal cancer Sister Breast cancer Lung cancer Father Parkinson disease Brother Nephrolithiasis Social History Smoking Status: Former smoker Tobacco Type: Cigarettes Second Hand Exposure: No; Hx Alcohol Use: No Hx Substance Use: No Preferred Language: Monegasque Communication Ability: Impaired Visual Impairment: Limited Hearing Ability: Normal Node Js Developer Required: No marital status: / Current Living Situation: Family Current Living Situation Comment: son lives with him current occupational status: retired Other Information That Helps Us Care for You: No other: walks with walker Feels Safe at Home: Yes Safety Concerns: Feels Safe At This Time Assistive Devices: Oxygen - Continuous and Walker Physical Exam Psychiatric: Orientation: alert, oriented to person and oriented to time (roughly, believes it is December " or 24" 2019 ); + not oriented to place (believes he is ) Apperance: appropriately dressed, appropriately groomed and appeared stated age Eye Contact: + fair eye contact Motor Behavior: + tremor (mild tremor observed when left hand is at rest) Observed while laying at rest Speech: + abnormal rate/rhythm/volume of speech (muffled speech at times, rambling ) Affect: euthymic affect Mood: no depressed mood and no anxious mood Thought Process: + tangential thought process and + perseveration Thought Content: + preoccupation (with baseball and his previous place of employment ) Suicidal Thoughts: denies suicidal thoughts Homicidal Thoughts: denies homicidal thoughts Hallucinations: no auditory hallucinations and no visual hallucinations Cognition: language grossly intact; + recent memory not intact and + attention not intact Insight: + impaired insight Judgement: + impaired judgement Vital Signs (Past 24 Hours): Last Vital Signs Temp 36.7 C 01/15/20 12:11 Pulse 101 H 01/15/20 15:00 Resp 33 H 01/15/20 15:00 BP 81/61 L 01/15/20 14:41 Pulse Ox 94 01/15/20 15:00 Review of Systems Constitutional: [denied] Cardiovascular: [denied] Respiratory: [denied] Gastrointestinal: [denied] Neurological: [denied] Psychiatric: [denies symptoms other than stated above] Total of at least 10 systems reviewed, pertinent positives as above and in HPI. Results & Data (PSY) Medications Administered Acetaminophen (Acetaminophen 325 Mg Tab) 650 mg PO Q4H PRN PRN Reason: pain/fever Stop: 02/10/20 15:53 Last Admin: 01/13/20 23:19 Dose: 650 mg Documented by: [id number] Admin: 01/12/20 15:31 Dose: 650 mg Documented by: [id number] Allopurinol (Allopurinol 300 Mg Tab) 300 mg PO [facility] Stop: 02/11/20 08:59 Last Admin: 01/15/20 10:03 Dose: Not Given Documented by: [id number] Admin: 01/14/20 10:03 Dose: 300 mg Documented by: [id number] Admin: 01/13/20 07:48 Dose: 300 mg Documented by: [id number] Admin: 01/12/20 08:44 Dose: 300 mg Documented by: [id number] Atorvastatin Calcium (Atorvastatin 40 Mg Tab) 40 mg PO [facility] Stop: 02/11/20 08:59 Last Admin: 01/15/20 10:03 Dose: Not Given Documented by: [id number] Admin: 01/14/20 10:03 Dose: 40 mg Documented by: [id number] Admin: 01/13/20 07:49 Dose: 40 mg Documented by: [id number] Admin: 01/12/20 08:44 Dose: 40 mg Documented by: [id number] Clopidogrel Bisulfate (Clopidogrel Bisulfate 75 Mg Tab) 75 mg PO [facility] Stop: 02/11/20 08:59 Last Admin: 01/15/20 10:03 Dose: Not Given Documented by: [id number] Admin: 01/14/20 08:25 Dose: 75 mg Documented by: [id number] Admin: 01/13/20 07:48 Dose: 75 mg Documented by: [id number] Admin: 01/12/20 08:43 Dose: 75 mg Documented by: [id number] Fluticasone Furoate (Fluticasone Furoate 200mcg 14 Puffs/Inhaler) 1 puffs INH DAILY [facility] Stop: 02/11/20 08:59 Last Admin: 01/15/20 10:13 Dose: Not Given Documented by: [id number] Admin: 01/14/20 08:23 Dose: 1 puffs Documented by: [id number] Admin: 01/13/20 07:48 Dose: 1 puffs Documented by: [id number] Admin: 01/12/20 08:43 Dose: 1 puffs Documented by: [id number] Gabapentin (Gabapentin 100 Mg Cap) 100 mg PO TID PRN PRN Reason: Pain Stop: 02/10/20 15:53 Last Admin: 01/13/20 07:49 Dose: 100 mg Documented by: [id number] Diltiazem HCl 125 mg/ Dextrose 125 mls @ 0 mls/hr IV .Q0M [facility]; Protocol Stop: 02/12/20 09:59 Last Admin: 01/14/20 23:34 Dose: Not Given Documented by: [id number] Titration: 01/14/20 21:20 Dose: 0 mg/hr, 0 mls/hr Documented by: [id number] Cosigned by: [id number] Admin: 01/14/20 18:56 Dose: 5 mg/hr, 5 mls/hr Documented by: [id number] Cosigned by: [id number] Titration: 01/14/20 18:45 Dose: 5 mg/hr, 5 mls/hr Documented by: [id number] Cosigned by: [id number] Titration: 01/14/20 05:07 Dose: 10 mg/hr, 10 mls/hr Documented by: [id number] Cosigned by: [id number] Admin: 01/14/20 05:07 Dose: 10 mg/hr, 10 mls/hr Documented by: [id number] Cosigned by: [id number] Titration: 01/14/20 04:51 Dose: 10 mg/hr, 10 mls/hr Documented by: [id number] Cosigned by: [id number] Titration: 01/13/20 23:12 Dose: 5 mg/hr, 5 mls/hr Documented by: [id number] Cosigned by: [id number] Titration: 01/13/20 17:21 Dose: 5 mg/hr, 5 mls/hr Documented by: [id number] Cosigned by: [id number] Admin: 01/13/20 13:00 Dose: 10 mg/hr, 10 mls/hr Documented by: [id number] Cosigned by: [id number] Titration: 01/13/20 13:00 Dose: 5 mg/hr, 5 mls/hr Documented by: [id number] Cosigned by: [id number] Admin: 01/13/20 11:03 Dose: 5 mg/hr, 5 mls/hr Documented by: [id number] Cosigned by: [id number] Heparin Sodium/Dextrose (Heparin Sodium/Dextrose) 25,000 units in 500 mls @ 27 mls/hr IV .[id number] [facility]; Protocol Stop: 02/12/20 09:59 Last Admin: 01/15/20 09:17 Dose: 1,350 units/hr, 27 mls/hr Documented by: [id number] Cosigned by: [id number] Titration: 01/14/20 18:45 Dose: 0 units/hr, 0 mls/hr Documented by: [id number] Cosigned by: [id number] Titration: 01/14/20 17:45 Dose: 0 units/hr, 0 mls/hr Documented by: [id number] Cosigned by: [id number] Titration: 01/14/20 16:02 Dose: 1,350 units/hr, 27 mls/hr Documented by: [id number] Cosigned by: [id number] Admin: 01/14/20 11:02 Dose: 1,200 units/hr, 24 mls/hr Documented by: [id number] Cosigned by: [id number] Titration: 01/14/20 10:21 Dose: 1,200 units/hr, 24 mls/hr Documented by: [id number] Cosigned by: [id number] Titration: 01/14/20 07:34 Dose: 1,200 units/hr, 24 mls/hr Documented by: [id number] Cosigned by: [id number] Titration: 01/14/20 07:07 Dose: 1,050 units/hr, 21 mls/hr Documented by: [id number] Cosigned by: [id number] Titration: 01/13/20 23:12 Dose: 1,050 units/hr, 21 mls/hr Documented by: [id number] Cosigned by: [id number] Titration: 01/13/20 17:23 Dose: 1,050 units/hr, 21 mls/hr Documented by: [id number] Cosigned by: [id number] Admin: 01/13/20 10:15 Dose: 950 units/hr, 19 mls/hr Documented by: [id number] Cosigned by: [id number] Furosemide 40 mg/ Syringe 4 mls @ 4 mls/min IV DAILY [facility] Stop: 02/13/20 11:59 Last Admin: 01/15/20 10:12 Dose: 4 mls/min Documented by: [id number] Admin: 01/14/20 12:57 Dose: 4 mls/min Documented by: [id number] Dexmedetomidine HCl 400 mcg/ (Sodium Chloride) 100 mls @ 4.505 mls/hr IV .[id number] [facility]; Protocol Stop: 01/19/20 02:29 Last Titration: 01/15/20 08:42 Dose: 0.2 mcg/kg/hr, 4.5 mls/hr Documented by: [id number] Titration: 01/15/20 08:00 Dose: 0.3 mcg/kg/hr, 6.8 mls/hr Documented by: [id number] Titration: 01/15/20 06:57 Dose: 0.6 mcg/kg/hr, 13.5 mls/hr Documented by: [id number] Cosigned by: [id number] Admin: 01/15/20 02:39 Dose: 0.6 mcg/kg/hr, 13.5 mls/hr Documented by: [id number] Cosigned by: [id number] Ceftriaxone Sodium 2,000 mg/ (Dextrose) 70 mls @ 100 mls/hr IV DAILY [facility]; Protocol Stop: 01/25/20 09:29 Last Infusion: 01/15/20 13:07 Dose: 0 mls/hr Documented by: [id number] Admin: 01/15/20 10:12 Dose: 100 mls/hr Documented by: [id number] Ipratropium Bailey (Ipratropium Bailey Neb Soln 0.02% 2.5 Ml Vial) 0.5 mg INH Q6R [facility] Stop: 02/13/20 06:59 Last Admin: 01/15/20 13:14 Dose: 0.5 mg Documented by: [id number] Admin: 01/15/20 07:41 Dose: 0.5 mg Documented by: [id number] Admin: 01/15/20 00:56 Dose: 0.5 mg Documented by: [id number] Admin: 01/14/20 19:35 Dose: 0.5 mg Documented by: [id number] Admin: 01/14/20 17:35 Dose: 0.5 mg Documented by: [id number] Admin: 01/14/20 12:58 Dose: Not Given Documented by: [id number] Admin: 01/14/20 07:19 Dose: Not Given Documented by: [id number] Lactobacillus Acidophilus (Lactobacillus Acidophilus (Floranex) Tab) 4 tab PO QIDM [facility] Stop: 02/11/20 11:59 Last Admin: 01/15/20 13:05 Dose: Not Given Documented by: [id number] Admin: 01/15/20 09:04 Dose: Not Given Documented by: [id number] Admin: 01/14/20 21:59 Dose: Not Given Documented by: [id number] Admin: 01/14/20 16:11 Dose: Not Given Documented by: [id number] Admin: 01/14/20 11:43 Dose: 4 tab Documented by: [id number] Admin: 01/14/20 08:23 Dose: 4 tab Documented by: [id number] Admin: 01/13/20 20:59 Dose: 4 tab Documented by: [id number] Admin: 01/13/20 17:04 Dose: Not Given Documented by: [id number] Admin: 01/13/20 11:58 Dose: 4 tab Documented by: [id number] Admin: 01/13/20 07:48 Dose: 4 tab Documented by: [id number] Admin: 01/12/20 20:52 Dose: 4 tab Documented by: [id number] Admin: 01/12/20 16:32 Dose: 4 tab Documented by: [id number] Admin: 01/12/20 11:25 Dose: 4 tab Documented by: [id number] Levalbuterol HCl (Levalbuterol 1.25mg/0.5ml Neb) 1.25 mg INH Q6R [facility] Stop: 02/13/20 06:59 Last Admin: 01/15/20 13:14 Dose: 1.25 mg Documented by: [id number] Admin: 01/15/20 07:41 Dose: 1.25 mg Documented by: [id number] Admin: 01/15/20 00:56 Dose: 1.25 mg Documented by: [id number] Admin: 01/14/20 19:36 Dose: 1.25 mg Documented by: [id number] Admin: 01/14/20 17:35 Dose: 1.25 mg Documented by: [id number] Admin: 01/14/20 12:59 Dose: Not Given Documented by: [id number] Admin: 01/14/20 07:19 Dose: Not Given Documented by: [id number] Levothyroxine Sodium (Levothyroxine Sodium 50 Mcg Tablet) 50 mcg PO DAILYBB [facility] Stop: 02/11/20 06:29 Last Admin: 01/15/20 05:32 Dose: Not Given Documented by: [id number] Admin: 01/14/20 10:03 Dose: 50 mcg Documented by: [id number] Admin: 01/13/20 06:09 Dose: 50 mcg Documented by: [id number] Admin: 01/12/20 06:32 Dose: 50 mcg Documented by: [id number] Magnesium Oxide (Magnesium Oxide 400 Mg Tab) 400 mg PO BID [facility] Stop: 02/10/20 20:59 Last Admin: 01/11/20 20:13 Dose: 400 mg Documented by: [id number] Metoprolol Succinate (Metoprolol Succ 50mg Ext Rel Tab) 50 mg PO QAM [facility] Stop: 02/11/20 08:59 Last Admin: 01/13/20 07:48 Dose: 50 mg Documented by: [id number] Admin: 01/12/20 08:44 Dose: 50 mg Documented by: [id number] Metoprolol Tartrate (Metoprolol Tartrate 25 Mg Tab) 12.5 mg PO TID [facility] Stop: 02/14/20 13:59 Last Admin: 01/15/20 15:10 Dose: 12.5 mg Documented by: [id number] Mirabegron (Mirabegron Er 25 Mg Tab) 50 mg PO DAILY [facility] Stop: 02/11/20 08:59 Last Admin: 01/13/20 07:47 Dose: 50 mg Documented by: [id number] Admin: 01/12/20 08:43 Dose: 50 mg Documented by: [id number] Miscellaneous (Avodart 0.5mg ~ Order Awaiting Action) 1 ea N/A QS [facility] Stop: 02/11/20 00:00 Last Admin: 01/15/20 15:10 Dose: Not Given Documented by: [id number] Admin: 01/15/20 09:04 Dose: Not Given Documented by: [id number] Admin: 01/14/20 23:34 Dose: Not Given Documented by: [id number] Admin: 01/14/20 16:11 Dose: Not Given Documented by: [id number] Admin: 01/14/20 14:20 Dose: Not Given Documented by: [id number] Admin: 01/14/20 00:15 Dose: Not Given Documented by: [id number] Admin: 01/13/20 17:02 Dose: Not Given Documented by: [id number] Admin: 01/13/20 07:48 Dose: Not Given Documented by: [id number] Admin: 01/12/20 23:19 Dose: Not Given Documented by: [id number] Admin: 01/12/20 15:30 Dose: Not Given Documented by: [id number] Admin: 01/12/20 08:42 Dose: Not Given Documented by: [id number] Admin: 01/12/20 00:05 Dose: Not Given Documented by: [id number] Pantoprazole Sodium (Pantoprazole 40 Mg Tab) 40 mg PO QAM [facility] Stop: 02/11/20 08:59 Last Admin: 01/15/20 10:03 Dose: Not Given Documented by: [id number] Admin: 01/14/20 08:25 Dose: 40 mg Documented by: [id number] Admin: 01/13/20 07:47 Dose: 40 mg Documented by: [id number] Admin: 01/12/20 08:44 Dose: 40 mg Documented by: [id number] Prednisone (Prednisone 5 Mg Tab) 5 mg PO QAM [facility] Stop: 02/14/20 08:59 Last Admin: 01/15/20 10:03 Dose: Not Given Documented by: [id number] Tamsulosin HCl (Tamsulosin Hcl 0.4 Mg Cap) 0.4 mg PO QPM [facility] Stop: 02/10/20 20:59 Last Admin: 01/14/20 21:59 Dose: Not Given Documented by: [id number] Admin: 01/13/20 20:58 Dose: 0.4 mg Documented by: [id number] Admin: 01/12/20 20:53 Dose: 0.4 mg Documented by: [id number] Admin: 01/11/20 20:14 Dose: 0.4 mg Documented by: [id number] Tolterodine Tartrate (Tolterodine Tartrate La 4 Mg Capcr) 4 mg PO DAILY [facility] Stop: 02/11/20 08:59 Last Admin: 01/13/20 07:48 Dose: 4 mg Documented by: [id number] Admin: 01/12/20 08:44 Dose: 4 mg Documented by: [id number] Vitamin D (Cholecalciferol 1,000 Units 25 Mcg Tab) 2,000 units PO PM [facility] Stop: 02/10/20 20:59 Last Admin: 01/14/20 21:59 Dose: Not Given Documented by: [id number] Admin: 01/13/20 20:59 Dose: 2,000 units Documented by: [id number] Admin: 01/12/20 20:52 Dose: 2,000 units Documented by: [id number] Admin: 01/11/20 20:13 Dose: 2,000 units Documented by: [id number] Coding Level of Care Code 16670 [facility] Intl Hosp Care Lvl 3
[2020-01-15 15:56] LABS: Partial Thromboplastin Ratio 1.3; Partial Thromboplastin Time 35.9 Seconds (21.0-31.0)
[2020-01-15] MEDS ORDERED: HEPARIN IV BOLUS 4,500 UNITS in SYRINGE 0 ML IV ONE (16:30)
[2020-01-15] MEDS ORDERED: METOPROLOL TARTRATE 25 MG TAB PO ONE (17:45)
--- NOTE | 2020-01-15 19:20 | Hospitalist Progress Note ---
Date of Service January 15, 2020 Assessment & Plan (1) Pneumonia: Possible Aspiration pneumonia Acute on Chronic respiratory failure with hypoxia--oxygen dependent Pulmonary edema B/L Pleural effusions H/O COPD on chronic Prednisone H/O esophageal dysmotility, hiatal hernia Noncompliant with home supplemental oxygen use CXR:Right lower lung zone airspace opacity suspicious for pneumonia. Heart is enlarged. large hiatal hernia. Pleural calcifications present. There are scattered calcified granulomas. Negative Biofire Normal Procalcitonin Blood Culture: No growth to date Aspiration precautions Speech therapy eval Continue Zosyn, added Doxycycline >>Transitioned to Rocephin Continue home inhalers Received Solu-medrol overnight Continue home prednisone Continue Nebs Continue slippery diet as per speech therapy Cautious use of diuretics Continue supplemental oxygen as needed Titrate oxygen to maintain Sats 88-92% Atrial flutter with RVR H/O Atrial Flutter Missed taking his home medications on presentation as per patient's daughter Monitor on Tele Troponin elevation--demand ischemia IV Cardizem discontinued Continue IV heparin Likely not a candidate for long-term anticoagulation Appreciate cardiology input Continue metoprolol Acute Metabolic Encephalopathy CT head: No acute intracranial findings Agitated Delirium Hold Gabapentin, Tolterodine, Mirabegron Reorient frequently Zyprexa PRN Appreciate Psychiatry Input Chronic Diarrhea Dehydration on presentation Ongoing diarrhea intermittently since many weeks Hold Magnesium Oxide Check stool studies if reoccurs May need colonoscopy eventually as outpatient Chronic venous insufficiency Peripheral artery disease S/P angioplasty of the right posterior tibial artery S/P endovenous ablation by Dr. Kendrick Continue Plavix, Lipitor Hypothyroidism Normal TSH Continue levothyroxine Moderate to severe aortic stenosis H/O Chronic diastolic heart failure Dehydrated on presentation Suggested to have TAVR by Cardiology as outpatient Patient currently prefers to avoid surgery Cardiology on board Monitor Volume status closely On Lasix at home Dyslipidemia Continue Statin CKD III Monitor renal function Avoid nephrotoxic agents as able DVT Px: on IV Heparin Code Status Full Code May need to readdress code status if clinically deteriorates Disposition To be determined PT/OT prior to discharge Admission and Anticipated Discharge Date Admission Date: January 11, 2020 Subjective Patient is seen and examined at bedside Confused this morning while on Precedex Off Precedex, patient more alert, answers simple questions Discussed with patient's daughters at bedside in detail Cardizem drip was weaned off due to bradycardia overnight Continue IV heparin Unable to get much history today Discussed with linseed oil order filler Review of Systems Review of Systems: All systems reviewed & are unremarkable except as noted in HPI & below Physical Exam Physical Exam: Physical Exam: Vitals signs as noted above General Appearance:Moderately built and nourished, Chronic ill appearing Head: normocephalic, Atraumatic Eyes: normal inspection, EOMI Neck: supple, Trachea midline Respiratory/Chest: Decreased breath sounds, Scattered crackles Cardiovascular: Irregularly irregular, + systolic murmur, Abdomen/GI:Soft, Non tender, Bowel sounds present Extremities/Musculoskelatal:normal inspection, Trace B/L LE edema Neurologic/Psych:Alert, grossly no focal neurological deficits, confused Skin: normal color, warm Results & Data Results & Data ([facility]) Vital Signs (Past 12 Hours) Vital Signs Temp Pulse Pulse Resp BP Pulse Ox 01/15/20 15:00 101 H 33 H 94 01/15/20 14:45 104 H 35 H 94 01/15/20 14:41 105 H 19 81/61 L 89 L 01/15/20 14:30 103 H 20 92 01/15/20 14:15 100 H 28 H 93 01/15/20 14:11 98 H 29 H 128/65 92 01/15/20 14:00 97 H 25 H 94 01/15/20 13:45 92 H 29 H 91 01/15/20 13:42 103 H 36 H 151/96 H 93 01/15/20 13:30 95 H 23 96 01/15/20 13:18 61 20 97 01/15/20 13:15 96 H 31 H 90 01/15/20 13:11 98 H 20 145/93 H 89 L 01/15/20 13:00 96 H 24 95 01/15/20 12:45 93 H 23 94 01/15/20 12:41 95 H 26 H 151/91 H 95 01/15/20 12:30 90 32 H 96 01/15/20 12:15 90 31 H 95 01/15/20 12:11 36.7 C 84 27 H 120/81 94 01/15/20 12:00 90 30 H 93 01/15/20 11:45 84 35 H 91 01/15/20 11:41 95 H 28 H 140/93 93 01/15/20 11:37 95 H 146/97 H 01/15/20 11:30 95 H 27 H 09/25/20 11:15 93 H 25 H 89 L 01/15/20 11:11 94 H 27 H 146/97 H 90 01/15/20 11:00 103 H 26 H 88 L 01/15/20 10:45 87 30 H 96 01/15/20 10:41 83 21 120/88 96 01/15/20 10:30 63 21 98 01/15/20 10:15 57 L 24 96 01/15/20 10:11 69 20 142/70 H 97 01/15/20 10:00 66 21 97 01/15/20 09:45 58 L 21 97 01/15/20 09:41 66 21 129/91 96 01/15/20 09:30 87 17 98 01/15/20 09:15 60 15 98 01/15/20 09:11 66 22 145/74 H 98 01/15/20 09:00 58 L 22 96 01/15/20 08:45 57 L 24 96 01/15/20 08:41 65 23 131/78 96 01/15/20 08:30 61 22 97 01/15/20 08:15 66 25 H 97 01/15/20 08:13 36.6 C 64 24 128/79 98 01/15/20 08:00 55 L 22 96 01/15/20 07:45 57 L 61 20 97 01/15/20 07:40 57 L 25 H 125/78 99 01/15/20 07:30 61 26 H 99 01/15/20 07:15 61 25 H 98 01/15/20 07:11 56 L 25 H 127/88 98 Laboratory Results Short CBC 01/15/20 Range/Units 06:09 WBC 10.40 (4.8-10.8) K/uL Hgb 10.2 L (14.0-18.0) g/dL Hct 32.5 L (42-52) % Plt Count 236 (130-400) K/uL BMP 01/15/20 06:05 Sodium 139 Potassium 4.3 Chloride 105 Carbon Dioxide 29 BUN 27 H Creatinine 1.40 Glucose 151 H Calcium 8.1 L Cardiac Enzymes 01/14/20 01/15/20 01/15/20 Range/Units 18:58 00:19 06:05 Troponin I 0.050 H* 0.058 H* 0.050 H* (0-0.045) ng/ml (1) Pneumonia Laterality: right Lung location: lower lobe of lung Pneumonia type: due to unspecified organism Qualified Code(s): J18.9 - Pneumonia, unspecified organism
[2020-01-15] MEDS: TAMSULOSIN HCL 0.4 MG CAP PO SCH (20:57)
[2020-01-15] MEDS: CHOLECALCIFEROL 1,000 UNITS 25 MCG TAB PO SCH (20:59)
[2020-01-15 23:15] LABS: Partial Thromboplastin Ratio 1.8
[2020-01-15 23:21] LABS: Partial Thromboplastin Time 50.7 Seconds (21.0-31.0)
[2020-01-16] MEDS: IPRATROPIUM BROMIDE NEB SOLN 0.02% 2.5 ML VIAL INH SCH ×4 (00:35→19:01)
[2020-01-16] MEDS: LEVALBUTEROL 1.25MG/0.5ML NEB INH SCH ×4 (00:35→19:01)
[2020-01-16] MEDS: HEPARIN SODIUM/DEXTROSE 25,000 UNITS/500 ML BAG IV SCH ×3 (02:13→18:43)
[2020-01-16] MEDS: METOPROLOL TARTRATE 25 MG TAB PO SCH ×4 (04:30→21:05)
[2020-01-16] MEDS: LEVOTHYROXINE SODIUM 50 MCG TABLET PO SCH (05:38)
[2020-01-16 06:37] LABS: Hematocrit (blood only) 35.3 % (42-52); Hemoglobin 10.9 g/dL (14.0-18.0); Mean Corpuscular Hemoglobin 25.7 pg (25-34); Mean Corpuscular Hgb Conc 30.9 g/dL (32-36); Mean Corpuscular Volume 83.3 fL (80-100); Platelet Count 268 K/uL (130-400); RDW Coefficient of Variation 15.9 % (11.5-14.5); RDW Standard Deviation 48.4 fL (36.4-46.3); Red Blood Count 4.24 M/uL (4.7-6.1); White Blood Count 9.65 K/uL (4.8-10.8)
[2020-01-16 06:55] LABS: Partial Thromboplastin Ratio 1.6; Partial Thromboplastin Time 44.8 Seconds (21.0-31.0)
[2020-01-16 07:11] LABS: BUN Creatinine Ratio 21.9 (10-20); Creatinine Clr Calc Pharmacy 45.5 ml/min; Est GFR (African American) 64.8; Est GFR (Non-African American) 55.9; Magnesium 2.4 mg/dl (1.8-2.4); Potassium 3.3 mmol/L (3.5-5.1)
[2020-01-16] MEDS ORDERED: HEPARIN IV BOLUS 3,000 UNITS in SYRINGE 0 ML IV ONE (07:30)
[2020-01-16] MEDS: cefTRIAXone SODIUM 2,000 MG in DEXTROSE 5% 50 ML IV SCH (09:06)
[2020-01-16] MEDS: allopurinoL 300 MG TAB PO SCH (09:07)
[2020-01-16] MEDS: CLOPIDOGREL BISULFATE 75 MG TAB PO SCH (09:07)
[2020-01-16] MEDS: FUROSEMIDE 40 MG in SYRINGE 0 ML IV SCH (09:07)
[2020-01-16] MEDS: PANTOprazole 40 MG TAB PO SCH (09:07)
[2020-01-16] MEDS: FLUTICASONE FUROATE 200MCG 14 PUFFS/INHALER INH SCH (09:07)
[2020-01-16] MEDS: LACTOBACILLUS ACIDOPHILUS (FLORANEX) TAB PO SCH ×4 (09:07→21:03)
[2020-01-16] MEDS: ATORVASTATIN 40 MG TAB PO SCH (09:07)
[2020-01-16] MEDS: predniSONE 5 MG TAB PO SCH (09:08)
[2020-01-16] MEDS ORDERED: POTASSIUM CHLORIDE CRTAB 20 MEQ TABCR PO ONE (09:12)
[2020-01-16] MEDS ORDERED: DEXTROSE 50% 50 ML SYRINGE IV PRN (09:15)
[2020-01-16] MEDS ORDERED: CARBOHYDRATES FOR HYPOGLYCEMIA PO PRN (09:15)
[2020-01-16] MEDS ORDERED: GLUCAGON FOR INJ 1 MG VIAL SQ PRN (09:15)
[2020-01-16] MEDS ORDERED: GLUCOSE 10 TABS/TUBE PO PRN (09:15)
[2020-01-16] MEDS ORDERED: GLUCOSE 40% GEL 15 GM TUBE PO PRN (09:15)
[2020-01-16] MEDS: INSULIN ASPART 100 UNITS/ML 3 ML PEN SC SCH ×3 (12:23→21:14)
--- NOTE | 2020-01-16 13:11 | Cardiology Progress Note ---
Date of Service January 16, 2020 Assessment & Plan (1) Atrial flutter with rapid ventricular response: (2) Diarrhea: (3) Dehydration: (4) Pneumonia: (5) Toe osteomyelitis: (6) Venous stasis ulcer: (7) Peripheral arterial occlusive disease: (8) H/O atrial flutter: Patient presented with symptomatic pneumonia. Started on antibiotic therapy. Was in atrial flutter with rapid ventricular response upon arrival and has remained in atrial flutter with rapid ventricular response/variable response continuously. Remote history postoperatively without recurrence Rates now well controlled on p.o. metoprolol. We will continue heparin drip for now but again I do not see the patient is a l cynthia-term anticoagulation candidate. (9) Acute and chronic respiratory failure with hypoxia: Patient is responding to diuretics. We will continue IV Lasix once daily and follow volume status clinically. Admission and Anticipated Discharge Date Admission Date: January 11, 2020 Subjective Patient seen and examined, chart reviewed. Much more alert and appropriate today responding to questions appropriately. Denies any cardiac complaints of chest pain, shortness of breath, palpitations, lightheadedness, dizziness or syncope. Telemetry reviewed: Atrial fibrillation/flutter rate controlled. Review of Systems Review of Systems: All systems reviewed & are unremarkable except as noted in HPI & below Physical Exam Physical Exam: General: Awake, alert and oriented x 3. No acute distress. HEENT: Normocephalic, atraumatic. Pupils equal, round and reactive to light and accommodation. Extraocular muscles are intact. Anicteric sclera. Moist mucous membranes. Neck: No JVD. No bruit. Cardiovascular: irregularly irregular, unable to appreciate murmur, rub or gallop. Pulmonary: Clear to auscultation bilaterally. No rales, rhonchi, or wheezing. Abdomen: Bowel sounds x 4, soft. No rebound, guarding or tenderness. No organomegaly. Extremities: No clubbing, cyanosis or edema. +2 pedal pulses bilaterally. Skin: Warm and dry. Results & Data ([facility]) Vital Signs (Past 12 Hours) Vital Signs Temp Pulse Resp BP Pulse Ox 01/16/20 11:53 36.8 C 78 18 136/83 96 01/16/20 07:28 36.3 C L 81 20 137/81 96 01/16/20 07:06 80 20 97 01/16/20 03:00 36.9 C 102 H 20 169/114 H 92 (1) Diarrhea Diarrhea type: unspecified type Qualified Code(s): R19.7 - Diarrhea, unspecified (2) Pneumonia Laterality: right Lung location: lower lobe of lung Pneumonia type: due to unspecified organism Qualified Code(s): J18.9 - Pneumonia, unspecified organism (3) Venous stasis ulcer Venous stasis ulcer site: calf Varicose vein presence: unspecified whether present Laterality: right Non-pressure ulcer stage: limited to breakdown of skin Qualified Code(s): I83.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
[2020-01-16 14:46] LABS: Partial Thromboplastin Ratio 1.8
[2020-01-16 14:54] LABS: Partial Thromboplastin Time 51.3 Seconds (21.0-31.0)
--- NOTE | 2020-01-16 16:39 | Hospitalist Progress Note ---
Date of Service January 16, 2020 Assessment & Plan (1) Pneumonia: Possible Aspiration pneumonia Acute on Chronic respiratory failure with hypoxia--oxygen dependent Pulmonary edema B/L Pleural effusions H/O COPD on chronic Prednisone H/O esophageal dysmotility, hiatal hernia Noncompliant with home supplemental oxygen use CXR:Right lower lung zone airspace opacity suspicious for pneumonia. Heart is enlarged. large hiatal hernia. Pleural calcifications present. There are scattered calcified granulomas. Negative Biofire Normal Procalcitonin Blood Culture: No growth Urine culture no growth Aspiration precautions Speech therapy eval Continue Zosyn, added Doxycycline >>Transitioned to Rocephin Continue home inhalers Continue home prednisone, Nebs Continue slippery diet as per speech therapy Continue IV Lasix daily Titrate oxygen to maintain Sats 88-92% Saturating well on 2 L of supplemental oxygen Atrial flutter with RVR H/O Atrial Flutter Missed taking his home medications on presentation as per patient's daughter Troponin elevation--demand ischemia IV Cardizem discontinued Continue IV heparin Likely not a candidate for long-term anticoagulation Appreciate cardiology input Continue metoprolol Rate controlled Acute Metabolic Encephalopathy CT head: No acute intracranial findings Agitated Delirium Hold Gabapentin, Tolterodine, Mirabegron Reorient frequently Zyprexa PRN Appreciate Psychiatry Input Mental status slowly improving Chronic Diarrhea Dehydration on presentation Ongoing diarrhea intermittently since many weeks Hold Magnesium Oxide Check stool studies if reoccurs May need colonoscopy eventually as outpatient Chronic venous insufficiency Peripheral artery disease S/P angioplasty of the right posterior tibial artery S/P endovenous ablation by Dr. Kendrick Continue Plavix, Lipitor Hypothyroidism Normal TSH Continue levothyroxine Moderate to severe aortic stenosis H/O Chronic diastolic heart failure Dehydrated on presentation Suggested to have TAVR by Cardiology as outpatient Patient currently prefers to avoid surgery Cardiology on board Monitor Volume status closely On Lasix at home Dyslipidemia Continue Statin CKD III Monitor renal function Avoid nephrotoxic agents as able DVT Px: on IV Heparin Code Status Full Code May need to readdress code status if clinically deteriorates Disposition To be determined PT/OT prior to discharge Admission and Anticipated Discharge Date Admission Date: January 11, 2020 Subjective Patient is seen and examined at bedside No agitation noted today Laying in bed comfortably Remains in A. fib, rate controlled Denies chest pain, shortness of breath, dizziness, nausea, abdominal pain Intermittently confused as per RN On IV heparin, no bleeding issues Review of Systems Review of Systems: All systems reviewed & are unremarkable except as noted in HPI & below Physical Exam Physical Exam: Physical Exam: Vitals signs as noted above General Appearance:Moderately built and nourished, Chronic ill appearing Head: normocephalic, Atraumatic Eyes: normal inspection, EOMI Neck: supple, Trachea midline Respiratory/Chest: Decreased breath sounds, CTA Cardiovascular: Irregularly irregular, + systolic murmur Abdomen/GI:Soft, Non tender, Bowel sounds present Extremities/Musculoskelatal:normal inspection, No edema, +Chronic B/L Toe amput ations Neurologic/Psych:Alert, grossly no focal neurological deficits, confused Skin: normal color, warm Results & Data Results & Data ([facility]) Vital Signs (Past 12 Hours) Vital Signs Temp Pulse Resp BP Pulse Ox 01/16/20 13:22 88 18 94 01/16/20 11:53 36.8 C 78 18 136/83 96 01/16/20 07:28 36.3 C L 81 20 137/81 96 01/16/20 07:06 80 20 97 Laboratory Results Short CBC 01/16/20 Range/Units 06:02 WBC 9.65 (4.8-10.8) K/uL Hgb 10.9 L (14.0-18.0) g/dL Hct 35.3 L (42-52) % Plt Count 268 (130-400) K/uL BMP 01/16/20 06:02 Sodium 142 Potassium 3.3 L D Chloride 106 Carbon Dioxide 30 BUN 25 H Creatinine 1.16 Glucose 125 H Calcium 8.0 L (1) Pneumonia Laterality: right Lung location: lower lobe of lung Pneumonia type: due to unspecified organism Qualified Code(s): J18.9 - Pneumonia, unspecified organism
[2020-01-16] MEDS: TAMSULOSIN HCL 0.4 MG CAP PO SCH (21:04)
[2020-01-16] MEDS: CHOLECALCIFEROL 1,000 UNITS 25 MCG TAB PO SCH (21:05)
[2020-01-17] MEDS: LEVALBUTEROL 1.25MG/0.5ML NEB INH SCH ×4 (00:59→18:52)
[2020-01-17] MEDS: IPRATROPIUM BROMIDE NEB SOLN 0.02% 2.5 ML VIAL INH SCH ×4 (00:59→18:52)
[2020-01-17] MEDS ORDERED: OLANZapine 10 MG/2.1 ML SDV IM PRN (02:14)
[2020-01-17] MEDS: LEVOTHYROXINE SODIUM 50 MCG TABLET PO SCH (05:47)
--- NOTE | 2020-01-17 07:38 | Electrocardiogram Report ---
Test Reason : Blood Pressure : / mmHG Vent. Rate : 062 BPM Atrial Rate : 000 BPM P-R Int : 000 ms QRS Dur : 120 ms QT Int : 510 ms P-R-T Axes : 000 -31 -02 degrees QTc Int : 517 ms Atrial fibrillation Left axis deviation Non-specific intra-ventricular conduction delay Minimal voltage criteria for LVH, may be normal variant ( [place] product ) Abnormal ECG When compared with ECG of 14-JAN-2020 18:18, (unconfirmed) Non-specific change in ST segment in Inferior leads Confirmed by Cameron Alvarado ([id number]) on 01/17/2020 7:37:59 AM Referred By: REFERRED SELF Confirmed By:Cameron Alvarado
[2020-01-17 07:59] LABS: BUN Creatinine Ratio 18.4 (10-20); Calcium 8.7 mg/dl (8.5-10.1); Creatinine Clr Calc Pharmacy 47.5 ml/min; Est GFR (African American) 68.3; Magnesium 2.4 mg/dl (1.8-2.4); Potassium 3.4 mmol/L (3.5-5.1)
[2020-01-17 08:03] LABS: Partial Thromboplastin Ratio 1.8
[2020-01-17 08:18] LABS: Partial Thromboplastin Time 51.3 Seconds (21.0-31.0)
[2020-01-17] MEDS: FLUTICASONE FUROATE 200MCG 14 PUFFS/INHALER INH SCH (08:32)
[2020-01-17] MEDS: INSULIN ASPART 100 UNITS/ML 3 ML PEN SC SCH ×4 (08:32→22:20)
[2020-01-17] MEDS: cefTRIAXone SODIUM 2,000 MG in DEXTROSE 5% 50 ML IV SCH (08:32)
[2020-01-17] MEDS: allopurinoL 300 MG TAB PO SCH (08:33)
[2020-01-17] MEDS: predniSONE 5 MG TAB PO SCH (08:33)
[2020-01-17] MEDS: CLOPIDOGREL BISULFATE 75 MG TAB PO SCH (08:33)
[2020-01-17] MEDS: ATORVASTATIN 40 MG TAB PO SCH (08:33)
[2020-01-17] MEDS: METOPROLOL TARTRATE 25 MG TAB PO SCH ×4 (08:33→22:19)
[2020-01-17] MEDS: PANTOprazole 40 MG TAB PO SCH (08:33)
[2020-01-17] MEDS: FUROSEMIDE 40 MG in SYRINGE 0 ML IV SCH (08:33)
[2020-01-17] MEDS: LACTOBACILLUS ACIDOPHILUS (FLORANEX) TAB PO SCH ×5 (08:33→22:19)
--- NOTE | 2020-01-17 08:38 | Electrocardiogram Report ---
Test Reason : Blood Pressure : / mmHG Vent. Rate : 089 BPM Atrial Rate : 153 BPM P-R Int : 000 ms QRS Dur : 108 ms QT Int : 432 ms P-R-T Axes : 000 -43 066 degrees QTc Int : 525 ms Atrial fibrillation Left axis deviation Moderate voltage criteria for LVH, may be normal variant Abnormal ECG When compared with ECG of 15-JAN-2020 06:53, (unconfirmed) Questionable change in QRS duration HR has increased Confirmed by Cameron Alvarado ([id number]) on 01/17/2020 8:38:07 AM Referred By: REFERRED SELF Confirmed By:Cameron Alvarado
--- NOTE | 2020-01-17 08:45 | Electrocardiogram Report ---
Test Reason : Blood Pressure : / mmHG Vent. Rate : 090 BPM Atrial Rate : 340 BPM P-R Int : 000 ms QRS Dur : 104 ms QT Int : 408 ms P-R-T Axes : 000 -42 065 degrees QTc Int : 499 ms Atrial fibrillation Left axis deviation Nonspecific ST abnormality Abnormal ECG When compared with ECG of 16-JAN-2020 07:20, (unconfirmed) No significant change Confirmed by Cameron Alvarado ([id number]) on 01/17/2020 8:45:36 AM Referred By: REFERRED SELF Confirmed By:Cameron Alvarado
[2020-01-17] MEDS ORDERED: POTASSIUM PHOS 3 MMOL/1 ML INFUSION IV ONE (10:40)
[2020-01-17] MEDS: HEPARIN SODIUM/DEXTROSE 25,000 UNITS/500 ML BAG IV SCH (10:49)
[2020-01-17] MEDS: POTASSIUM CHLORIDE CRTAB 20 MEQ TABCR PO SCH (11:12)
[2020-01-17] MEDS ORDERED: POTASSIUM PHOSPHATE 15 MMOL in SODIUM CHLORIDE 0.9% 250 ML IV ONE (12:00)
--- NOTE | 2020-01-17 14:31 | Cardiology Progress Note ---
Date of Service January 17, 2020 Assessment & Plan (1) Atrial flutter with rapid ventricular response: (2) Diarrhea: (3) Dehydration: (4) Pneumonia: (5) Toe osteomyelitis: (6) Venous stasis ulcer: (7) Peripheral arterial occlusive disease: (8) H/O atrial flutter: Patient presented with symptomatic pneumonia. Started on antibiotic therapy. Was in atrial flutter with rapid ventricular response upon arrival and has remained in atrial flutter/fibrillation now rate controlled Remote history postoperatively without recurrence Rates now well controlled on p.o. metoprolol.will change to previous dose of succinate in the AM. We will continue heparin drip for now but again I do not see the patient is a long-term anticoagulation candidate. (9) Acute and chronic respiratory failure with hypoxia: Patient is responding to diuretics. We will change Lasix to oral in the a.m. Admission and Anticipated Discharge Date Admission Date: January 11, 2020 Subjective Patient seen and examined, chart reviewed. Denies complaints today specifically denies any chest pain, shortness of breath, palpitations, lightheadedness, dizziness or syncope. Telemetry reviewed: Atrial fibrillation rate controlled. Review of Systems Review of Systems: All systems reviewed & are unremarkable except as noted in HPI & below Physical Exam Physical Exam: General: Awake, alert and oriented x 3. No acute distress. HEENT: Normocephalic, atraumatic. Pupils equal, round and reactive to light and accommodation. Extraocular muscles are intact. Anicteric sclera. Moist m ucous membranes. Neck: No JVD. No bruit. Cardiovascular: irregularly irregular, unable to appreciate murmur, rub or gallop. Pulmonary: Clear to auscultation bilaterally. No rales, rhonchi, or wheezing. Abdomen: Bowel sounds x 4, soft. No rebound, guarding or tenderness. No organomegaly. Extremities: No clubbing, cyanosis or edema. +2 pedal pulses bilaterally. Skin: Warm and dry. Results & Data ([facility]) Vital Signs (Past 12 Hours) Vital Signs Temp Pulse Resp BP Pulse Ox 01/17/20 13:29 71 16 96 01/17/20 11:13 36.7 C 108 H 20 141/86 H 97 01/17/20 08:00 36.6 C 73 20 150/99 H 94 01/17/20 06:58 88 18 87 L 01/17/20 04:00 36.6 C 68 20 170/98 H 96 (1) Diarrhea Diarrhea type: unspecified type Qualified Code(s): R19.7 - Diarrhea, unspecified (2) Pneumonia Laterality: right Lung location: lower lobe of lung Pneumonia type: due to unspecified organism Qualified Code(s): J18.9 - Pneumonia, unspecified organism (3) Venous stasis ulcer Venous stasis ulcer site: calf Varicose vein presence: unspecified whether present Laterality: right Non-pressure ulcer stage: limited to breakdown of skin Qualified Code(s): I83.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
--- NOTE | 2020-01-17 17:54 | Hospitalist Progress Note ---
Date of Service January 17, 2020 Assessment & Plan (1) Pneumonia: Possible Aspiration pneumonia Acute on Chronic respiratory failure with hypoxia--oxygen dependent Pulmonary edema B/L Pleural effusions H/O COPD on chronic Prednisone H/O esophageal dysmotility, hiatal hernia Noncompliant with home supplemental oxygen use CXR:Right lower lung zone airspace opacity suspicious for pneumonia. Heart is enlarged. large hiatal hernia. Pleural calcifications present. There are scattered calcified granulomas. Negative Biofire Normal Procalcitonin Blood Culture: No growth Urine culture no growth Aspiration precautions Speech therapy eval Continue Zosyn, added Doxycycline >>Transitioned to Rocephin Continue home inhalers Continue home prednisone, Nebs Continue IV Lasix daily--Plan to transition to PO tomorrow Titrate oxygen to maintain Sats 88-92% Saturating well on 2 L of supplemental oxygen Still has cough with expectoration Atrial flutter with RVR H/O Atrial Flutter Missed taking his home medications on presentation as per patient's daughter Troponin elevation--demand ischemia IV Cardizem discontinued Continue IV heparin Likely not a candidate for long-term anticoagulation Appreciate cardiology input Continue metoprolol Rate controlled Acute Metabolic Encephalopathy CT head: No acute intracranial findings Agitated Delirium Hold Gabapentin, Tolterodine, Mirabegron Reorient frequently Zyprexa PRN Appreciate Psychiatry Input Mental status seemed to be back to baseline 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 Kendrick Continue Plavix, Lipitor Hypothyroidism Normal TSH Continue levothyroxine Moderate to severe aortic stenosis H/O Chronic diastolic heart failure Dehydrated on presentation Suggested to have TAVR by Cardiology as outpatient Patient currently prefers to avoid surgery Cardiology on board Monitor Volume status closely On Lasix at home Dyslipidemia Continue Statin CKD III Monitor renal function Avoid nephrotoxic agents as able DVT Px: on IV Heparin Code Status Full Code May need to readdress code status if clinically deteriorates Disposition To be determined PT/OT prior to discharge Admission and Anticipated Discharge Date Admission Date: January 11, 2020 Subjective Patient is seen and examined at bedside Reports cough with expectoration Mental status seemed to back to baseline Denies chest pain, shortness of breath, dizziness, nausea, abdominal pain On IV heparin, no bleeding issues No other complaints Review of Systems Review of Systems: All systems reviewed & are unremarkable except as noted in HPI & below Physical Exam Physical Exam: Physical Exam: Vitals signs as noted above General Appearance:Moderately built and nourished, Chronic ill appearing Head: normocephalic, Atraumatic Eyes: normal inspection, EOMI Neck: supple, Trachea midline Respiratory/Chest: Decreased breath sounds, CTA Cardiovascular: Irregularly irregular, + systolic murmur Abdomen/GI:Soft, Non tender, Bowel sounds present Extremities/Musculoskelatal:normal inspection, No edema, +Chronic B/L Toe amputations Neurologic/Psych:Alert, grossly no focal neurological deficits, confused Skin: normal color, warm Results & Data Results & Data ([facility]) Vital Signs (Past 12 Hours) Vital Signs Temp Pulse Resp BP Pulse Ox 01/17/20 15:43 36.4 C L 76 20 147/96 H 95 01/17/20 13:29 71 16 96 01/17/20 11:13 36.7 C 108 H 20 141/86 H 97 01/17/20 08:00 36.6 C 73 20 150/99 H 94 01/17/20 06:58 88 18 87 L Laboratory Results [facility] 01/17/20 07:10 Sodium 140 Potassium 3.4 L Chloride 105 Carbon Dioxide 27 BUN 20 H Creatinine 1.11 Glucose 128 H Calcium 8.7 (1) Pneumonia Laterality: right Lung location: lower lobe of lung Pneumonia type: due to unspecified organism Qualified Code(s): J18.9 - Pneumonia, unspecified organism
[2020-01-17] MEDS: TAMSULOSIN HCL 0.4 MG CAP PO SCH ×2 (21:06→22:19)
[2020-01-17] MEDS: CHOLECALCIFEROL 1,000 UNITS 25 MCG TAB PO SCH ×2 (21:07→22:20)
[2020-01-17] MEDS ORDERED: METOPROLOL TARTRATE 1 MG/ML VIAL IV STA (22:13)
[2020-01-18] MEDS: LEVALBUTEROL 1.25MG/0.5ML NEB INH SCH ×5 (00:14→19:43)
[2020-01-18] MEDS: IPRATROPIUM BROMIDE NEB SOLN 0.02% 2.5 ML VIAL INH SCH ×5 (00:14→19:43)
[2020-01-18] MEDS: HEPARIN SODIUM/DEXTROSE 25,000 UNITS/500 ML BAG IV SCH ×2 (02:39→16:57)
[2020-01-18] MEDS ORDERED: METOPROLOL TARTRATE 1 MG/ML VIAL IV STA ×2 (04:13→04:45)
--- NOTE | 2020-01-18 04:14 | Communication Note ---
Date of Service: January 18, 2020 Patient refusing to take oral meds since last night as per RN. Episodic agitation/restlessness as per RN. SBP 150-170s overnight. Cardiac rate 90-100s. Change oral Lopressor to IV Lopressor RTC for now. Will relay to AM provider.
[2020-01-18] MEDS: LEVOTHYROXINE SODIUM 50 MCG TABLET PO SCH (05:42)
[2020-01-18 06:47] LABS: Partial Thromboplastin Ratio 1.9
[2020-01-18 06:56] LABS: Calcium 8.4 mg/dl (8.5-10.1); Creatinine Clr Calc Pharmacy 45.5 ml/min; Est GFR (African American) 64.8; Est GFR (Non-African American) 55.9; Magnesium 2.4 mg/dl (1.8-2.4); Potassium 3.8 mmol/L (3.5-5.1)
[2020-01-18 06:57] LABS: Phosphorus 2.8 mg/dl (2.5-4.9)
[2020-01-18 07:08] LABS: Partial Thromboplastin Time 52.1 Seconds (21.0-31.0)
[2020-01-18] MEDS: LACTOBACILLUS ACIDOPHILUS (FLORANEX) TAB PO SCH ×4 (08:39→21:52)
[2020-01-18] MEDS: ATORVASTATIN 40 MG TAB PO SCH (08:39)
[2020-01-18] MEDS: METOPROLOL SUCC 50MG EXT REL TAB PO SCH (08:42)
[2020-01-18] MEDS: POTASSIUM CHLORIDE CRTAB 20 MEQ TABCR PO SCH (08:42)
[2020-01-18] MEDS: CLOPIDOGREL BISULFATE 75 MG TAB PO SCH (08:42)
[2020-01-18] MEDS: predniSONE 5 MG TAB PO SCH (08:43)
[2020-01-18] MEDS: PANTOprazole 40 MG TAB PO SCH (08:43)
[2020-01-18] MEDS: FLUTICASONE FUROATE 200MCG 14 PUFFS/INHALER INH SCH (08:43)
[2020-01-18] MEDS: allopurinoL 300 MG TAB PO SCH (08:43)
[2020-01-18] MEDS: INSULIN ASPART 100 UNITS/ML 3 ML PEN SC SCH ×4 (08:46→21:53)
[2020-01-18] MEDS: cefTRIAXone SODIUM 2,000 MG in DEXTROSE 5% 50 ML IV SCH (08:52)
[2020-01-18] MEDS: FUROSEMIDE 40 MG in SYRINGE 0 ML IV SCH (09:12)
--- NOTE | 2020-01-18 12:09 | Fluoroscopy Report ---
MODIFIED BARIUM SWALLOW CLINICAL HISTORY: assess for aspiration COMPARISON STUDY: Barium swallow June 02, 2018. FLUOROSCOPY TIME: 1.5 minutes. TECHNIQUE: A modified barium swallow was performed in conjunction with Speech Pathology. The patient ingested varying consistencies of barium containing material. Video fluoroscopy was performed. FINDINGS: No aspiration was identified with thin liquids or pudding consistencies. The patient only t ook small sips of thin liquids. Minimal residuals were noted. IMPRESSION: 1. No tracheal aspiration with thin liquids or pudding consistencies. 2. Full recommendations by speech pathology to follow. ACT 112: Negative or not required by law. Electronically signed by: Cisco Magdaleno M.D. 01/18/2020 12:08 PM
[2020-01-18] MEDS: METOPROLOL TARTRATE 1 MG/ML VIAL IV SCH ×2 (12:30→19:07)
--- NOTE | 2020-01-18 15:38 | Cardiology Progress Note ---
Date of Service January 18, 2020 Assessment & Plan (1) Atrial flutter with rapid ventricular response: (2) Diarrhea: (3) Dehydration: (4) Pneumonia: (5) Toe osteomyelitis: (6) Venous stasis ulcer: (7) Peripheral arterial occlusive disease: (8) H/O atrial flutter: Patient presented with symptomatic pneumonia. Started on antibiotic therapy. Was in atrial flutter with rapid ventricular response upon arrival and has remained in atrial flutter/fibrillation now rate controlled Remote history postoperatively without recurrence Rates now well controlled on p.o. metoprolol.will change to previous dose of succinate in the AM. We will continue heparin drip for now but again I do not see the patient is a long-term anticoagulation candidate. (9) Acute and chronic respiratory failure with hypoxia: Patient is responding to diuretics. Continue IV for now. Admission and Anticipated Discharge Date Admission Date: January 11, 2020 Subjective Patient seen and examined, chart reviewed. Patient little bit more confused today. But no complaints reported. Telemetry reviewed: Atrial fibrillation rate controlled. Physical Exam Physical Exam: General: Awake, alert and oriented x 3. No acute distress. HEENT: Normocephalic, atraumatic. Pupils equal, round and reactive to light and accommodation. Extraocular muscles are intact. Anicteric sclera. Moist mucous membranes. Neck: No JVD. No bruit. Cardiovascular: irregularly irregular, unable to appreciate murmur, rub or gallop. Pulmonary: Clear to auscultation bilaterally. No rales, rhonchi, or wheezing. Abdomen: Bowel sounds x 4, soft. No rebound, guarding or tenderness. No organomegaly. Extremities: No clubbing, cyanosis or edema. +2 pedal pulses bilaterally. Skin: Warm and dry. Results & Data ([facility]) Vital Signs (Past 12 Hours) Vital Signs Temp Pulse Pulse Resp BP BP Pulse Ox 01/18/20 13:04 97 H 17 87 L 01/18/20 12:30 82 112/74 01/18/20 12:16 36.4 C L 82 20 112/74 93 01/18/20 08:00 93 H 01/18/20 07:36 36.4 C L 97 H 18 159/93 H 92 01/18/20 07:11 91 H 18 90 01/18/20 04:54 98 H 163/113 H 01/18/20 04:40 102 H 163/113 H (1) Diarrhea Diarrhea type: unspecified type Qualified Code(s): R19.7 - Diarrhea, unspecified (2) Venous stasis ulcer Laterality: right Non-pressure ulcer stage: limited to breakdown of skin Varicose vein presence: unspecified whether present Venous stasis ulcer site: calf Qualified Code(s): I83.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
--- NOTE | 2020-01-18 19:01 | Hospitalist Progress Note ---
Date of Service January 18, 2020 Assessment & Plan (1) Pneumonia: Possible Aspiration pneumonia Acute on Chronic respiratory failure with hypoxia--oxygen dependent Pulmonary edema B/L Pleural effusions H/O COPD on chronic Prednisone H/O esophageal dysmotility, hiatal hernia Noncompliant with home supplemental oxygen use CXR:Right lower lung zone airspace opacity suspicious for pneumonia. Heart is enlarged. large hiatal hernia. Pleural calcifications present. There are scattered calcified granulomas. Negative Biofire Normal Procalcitonin Blood Culture: No growth Urine culture no growth Video Swallow:No tracheal aspiration with thin liquids or pudding consistencies. Full recommendations by speech pathology to follow. Aspiration precautions Speech therapy eval Continue Zosyn, added Doxycycline >>Transitioned to Rocephin --complete 10-day course of antibiotics. Continue home inhalers Continue home prednisone, Nebs Continue IV Lasix daily--Plan to transition to PO as able Titrate oxygen to maintain Sats 88-92% Saturating well on 2 L of supplemental oxygen Mental status--waxes and wanes Atrial flutter with RVR H/O Atrial Flutter Missed taking his home medications on presentation as per patient's daughter Troponin elevation--demand ischemia IV Cardizem discontinued Continue IV heparin Likely not a candidate for long-term anticoagulation Appreciate cardiology input Continue metoprolol Rate controlled Acute Metabolic Encephalopathy CT head: No acute intracranial findings Agitated Delirium Hold Gabapentin, Tolterodine, Mirabegron Reorient frequently Zyprexa PRN Appreciate Psychiatry Input Reorient frequently Strongly improving 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 Kendrick Continue Plavix, Lipitor Hypothyroidism Normal TSH Continue levothyroxine Moderate to severe aortic stenosis H/O Chronic diastolic heart failure Dehydrated on presentation Suggested to have TAVR by Cardiology as outpatient Patient currently prefers to avoid surgery Cardiology on board Monitor Volume status closely On Lasix at home Dyslipidemia Continue Statin CKD III Monitor renal function Avoid nephrotoxic agents as able DVT Px: on IV Heparin Code Status Full Code May need to readdress code status if clinically deteriorates Disposition To be determined PT/OT prior to discharge Admission and Anticipated Discharge Date Admission Date: January 11, 2020 Subjective Patient is seen and examined at bedside Agitated/restless overnight, refusing meds Had video swallow this morning Presently confused intermittently Still has persistent cough Denies chest pain, shortness of breath, dizziness, nausea, abdominal pain On IV heparin Review of Systems Review of Systems: All systems reviewed & are unremarkable except as noted in HPI & below Physical Exam Physical Exam: Physical Exam: Vitals signs as noted above General Appearance:Moderately built and nourished, Chronic ill appearing Head: normocephalic, Atraumatic Eyes: normal inspection, EOMI Neck: supple, Trachea midline Respiratory/Chest: Decreased breath sounds, CTA Cardiovascular: Irregularly irregular, + systolic murmur Abdomen/GI:Soft, Non tender, Bowel sounds present Extremities/Musculoskelatal:normal inspection, No edema, +Chronic B/L Toe amputations Neurologic/Psych:Alert, grossly no focal neurological deficits, confused Skin: normal color, warm Results & Data Results & Data ([facility]) Vital Signs (Past 12 Hours) Vital Signs Temp Pulse Pulse Resp BP BP Pulse Ox 01/18/20 15:45 36.4 C L 99 H 18 125/84 93 01/18/20 15:42 104 H 01/18/20 13:04 97 H 17 87 L 01/18/20 12:30 82 112/74 01/18/20 12:16 36.4 C L 82 20 112/74 93 01/18/20 08:00 93 H 01/18/20 07:36 36.4 C L 97 H 18 159/93 H 92 01/18/20 07:11 91 H 18 90 Laboratory Results [facility] 01/18/20 05:59 Sodium 141 Potassium 3.8 Chloride 107 Carbon Dioxide 27 BUN 19 H Creatinine 1.16 Glucose 116 H Calcium 8.4 L (1) Pneumonia Laterality: right Lung location: lower lobe of lung Pneumonia type: due to unspecified organism Qualified Code(s): J18.9 - Pneumonia, unspecified organism
[2020-01-18] MEDS: TAMSULOSIN HCL 0.4 MG CAP PO SCH (21:52)
[2020-01-18] MEDS: CHOLECALCIFEROL 1,000 UNITS 25 MCG TAB PO SCH (21:53)
[2020-01-19] MEDS: IPRATROPIUM BROMIDE NEB SOLN 0.02% 2.5 ML VIAL INH SCH ×2 (01:03→06:55)
[2020-01-19] MEDS: LEVALBUTEROL 1.25MG/0.5ML NEB INH SCH ×2 (01:03→06:54)
[2020-01-19] MEDS: METOPROLOL TARTRATE 1 MG/ML VIAL IV SCH ×5 (01:05→23:29)
[2020-01-19] MEDS: LEVOTHYROXINE SODIUM 50 MCG TABLET PO SCH (06:05)
[2020-01-19] MEDS: FLUTICASONE FUROATE 200MCG 14 PUFFS/INHALER INH SCH (07:42)
[2020-01-19] MEDS: LACTOBACILLUS ACIDOPHILUS (FLORANEX) TAB PO SCH ×4 (07:42→20:31)
[2020-01-19] MEDS: predniSONE 5 MG TAB PO SCH (07:43)
[2020-01-19] MEDS: allopurinoL 300 MG TAB PO SCH (07:43)
[2020-01-19] MEDS: POTASSIUM CHLORIDE CRTAB 20 MEQ TABCR PO SCH (07:43)
[2020-01-19] MEDS: FUROSEMIDE 40 MG in SYRINGE 0 ML IV SCH (07:43)
[2020-01-19] MEDS: CLOPIDOGREL BISULFATE 75 MG TAB PO SCH (07:43)
[2020-01-19] MEDS: ATORVASTATIN 40 MG TAB PO SCH (07:44)
[2020-01-19] MEDS: METOPROLOL SUCC 50MG EXT REL TAB PO SCH (07:44)
[2020-01-19] MEDS: PANTOprazole 40 MG TAB PO SCH (07:44)
[2020-01-19] MEDS: cefTRIAXone SODIUM 2,000 MG in DEXTROSE 5% 50 ML IV SCH (07:49)
[2020-01-19] MEDS: HEPARIN SODIUM/DEXTROSE 25,000 UNITS/500 ML BAG IV SCH ×2 (07:49→23:26)
[2020-01-19] MEDS: INSULIN ASPART 100 UNITS/ML 3 ML PEN SC SCH ×4 (07:50→20:42)
[2020-01-19 07:54] LABS: Hemoglobin 11.7 g/dL (14.0-18.0); Mean Corpuscular Hemoglobin 25.9 pg (25-34); Mean Corpuscular Hgb Conc 31.6 g/dL (32-36); Mean Platelet Volume 9.5 fL (7.4-10.4); Platelet Count 252 K/uL (130-400); RDW Coefficient of Variation 15.7 % (11.5-14.5); RDW Standard Deviation 47.3 fL (36.4-46.3); Red Blood Count 4.51 M/uL (4.7-6.1); White Blood Count 8.66 K/uL (4.8-10.8)
[2020-01-19 08:13] LABS: Partial Thromboplastin Ratio 2.2
[2020-01-19 08:16] LABS: Partial Thromboplastin Time 60.9 Seconds (21.0-31.0)
[2020-01-19 08:23] LABS: BUN Creatinine Ratio 15.9 (10-20); Calcium 8.5 mg/dl (8.5-10.1); Creatinine Clr Calc Pharmacy 50.2 ml/min; Est GFR (African American) 73.1; Est GFR (Non-African American) 63.1; Potassium 3.8 mmol/L (3.5-5.1)
[2020-01-19 08:24] LABS: Phosphorus 2.8 mg/dl (2.5-4.9)
[2020-01-19] MEDS ORDERED: LEVALBUTEROL 1.25MG/0.5ML NEB INH PRN (12:47)
[2020-01-19] MEDS ORDERED: IPRATROPIUM BROMIDE NEB SOLN 0.02% 2.5 ML VIAL INH PRN (12:47)
--- NOTE | 2020-01-19 14:27 | Hospitalist Progress Note ---
Date of Service January 19, 2020 Assessment & Plan (1) Pneumonia: Possible Aspiration pneumonia Acute on Chronic respiratory failure with hypoxia--oxygen dependent H/O esophageal dysmotility, hiatal hernia CXR:Right lower lung zone airspace opacity suspicious for pneumonia. Heart is enlarged. large hiatal hernia. Pleural calcifications present. There are scattered calcified granulomas. Speech therapy eval -appreciate input and recommendation Continue Zosyn, added Doxycycline >>Transitioned to Rocephin --complete 10-day course of antibiotics. Status post videofluoroscopic swallowing evaluation-no aspiration was identified Aspiration precaution and diet as advised by speech pathologist H/O COPD on chronic Prednisone Noncompliant with home supplemental oxygen use Negative Biofire Normal Procalcitonin Blood Culture: No growth Urine culture no growth Continue home inhalers Continue home prednisone, Nebs Titrate oxygen to maintain Sats 88-92% Saturating well on 2 L of supplemental oxygen Mental status--waxes and wanes Atrial flutter with RVR H/O Atrial Flutter Missed taking his home medications on presentation as per patient's daughter Troponin elevation--demand ischemia Was on IV Cardizem and subsequently discontinued discontinued Continue IV heparin for now and is not a candidate for prolonged anticoagulation Appreciate cardiology input Continue metoprolol Rate controlled B/L Pleural effusions and mild congestion in chest x-ray-we will monitor Continue IV Lasix daily--Plan to transition to PO as able Acute Metabolic Encephalopathy CT head: No acute intracranial findings Agitated Delirium Hold Gabapentin, Tolterodine, Mirabegron Zyprexa PRN Appreciate Psychiatry Input No acute issue as of today 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 Kendrick Continue Plavix, Lipitor Hypothyroidism Normal TSH Continue levothyroxine Moderate to severe aortic stenosis H/O Chronic diastolic heart failure Dehydrated on presentation Suggested to have TAVR by Cardiology as outpatient Patient currently prefers to avoid surgery Cardiology on board Monitor Volume status closely On Lasix at home Dyslipidemia Continue Statin CKD III Monitor renal function Avoid nephrotoxic agents as able DVT Px: on IV Heparin Code Status Full Code May need to readdress code status if clinically deteriorates Disposition To be determined PT/OT prior to discharge Admission and Anticipated Discharge Date Admission Date: January 11, 2020 Subjective 01/19/2020 The patient was seen and examined in medical telemetry unit He denies any significant symptoms today No chest pain, cough or shortness of breath No palpitation, Review of Systems Review of Systems: All systems reviewed and are unremarkable except as noted below Respiratory: no cough and no dyspnea Cardiovascular: no chest pain, no palpitations and no edema Physical Exam Physical Exam: Lying in bed comfortably Constitutional: well developed, well nourished and + obese; no acute distress and not ill appearing Eyes: PERRL, conjunctivae normal, anicteric sclerae ENMT: external ear and nose normal, oropharynx normal Neck: trachea midline, no thyromegaly Respiratory: normal respiratory effort; no respiratory distress Auscultation: + diminished lung sounds and + crackles (Right basilar crackles) Cardiovascular: Rate/Rhythm: + abnormal rate and + abnormal rhythm Heart Sounds: + murmur (2/6 ESM over precordium) Gastrointestinal (Abdomen): Inspection/Auscultation: abdomen normal to inspection and normal bowel sounds; abdomen not distended Musculoskeletal: No acute arthritis involving any joints Neurologic: moves all extremities; no focal motor deficits Psychiatric: A+Ox3, euthymic affect Lymphatic: no cervical or axillary lymphadenopathy Results & Data Results & Data ([facility]) Vital Signs (Past 12 Hours) Vital Signs Temp Pulse Pulse Resp BP BP Pulse Ox 01/19/20 12:14 105 H 123/83 01/19/20 11:57 36.8 C 105 H 18 123/83 91 01/19/20 07:40 36.5 C 95 H 18 155/91 H 92 01/19/20 06:55 97 H 18 87 L 01/19/20 06:37 90 156/100 H 01/19/20 04:03 36.9 C 76 20 167/109 H 95 Laboratory Results Short CBC 01/19/20 Range/Units 07:34 WBC 8.66 (4.8-10.8) K/uL Hgb 11.7 L (14.0-18.0) g/dL Hct 37.0 L (42-52) % Plt Count 252 (130-400) K/uL BMP 01/19/20 07:34 Sodium 139 Potassium 3.8 Chloride 107 Carbon Dioxide 24 BUN 17 Creatinine 1.05 Glucose 109 H Calcium 8.5 Medications Administered Current Inpatient Medications Acetaminophen (Acetaminophen 325 Mg Tab) 650 mg PO Q4H PRN PRN Reason: pain/fever Stop: 02/10/20 15:53 Last Admin: 01/13/20 23:19 Dose: 650 mg Documented by: Allopurinol (Allopurinol 300 Mg Tab) 300 mg PO QAM [facility] Stop: 02/11/20 08:59 Last Admin: 01/19/20 07:43 Dose: 300 mg Documented by: Atorvastatin Calcium (Atorvastatin 40 Mg Tab) [facility] [place] Stop: 02/11/20 08:59 Last Admin: 01/19/20 07:44 Dose: 40 mg Documented by: Clopidogrel Bisulfate (Clopidogrel Bisulfate 75 Mg Tab) 75 mg PO QAM [facility] Stop: 02/11/20 08:59 Last Admin: 01/19/20 07:43 Dose: 75 mg Documented by: Dextrose (Dextrose 50% 50 Ml Syringe) 25 - 50 ml IV UD PRN; Protocol PRN Reason: Hypoglycemia Protocol Stop: 02/15/20 09:14 Fluticasone Furoate (Fluticasone Furoate 200mcg 14 Puffs/Inhaler) 1 puffs INH DAILY [facility] Stop: 02/11/20 08:59 Last Admin: 01/19/20 07:42 Dose: 1 puffs Documented by: Gabapentin (Gabapentin 100 Mg Cap) 100 mg PO TID PRN PRN Reason: Pain Stop: 02/10/20 15:53 Last Admin: 01/13/20 07:49 Dose: 100 mg Documented by: Glucagon (Glucagon For Inj 1 Mg Vial) 1 mg SQ UD PRN; Protocol PRN Reason: Hypoglycemia Protocol Stop: 02/15/20 09:14 Glucose (Glucose 10 Tabs/Tube) 4 - 8 tabs PO UD PRN; Protocol PRN Reason: Hypoglycemia Protocol Stop: 02/15/20 09:14 Glucose (Glucose 40% Gel 15 Gm Tube) 15 - 30 gm PO UD PRN; Protocol PRN Reason: Hypoglycemia Protocol Stop: 02/15/20 09:14 Heparin Sodium/Dextrose (Heparin Sodium/Dextrose) 25,000 units in 500 mls @ 32 mls/hr IV .[id number] [facility]OM[facility]; Protocol Stop: 02/12/20 09:59 Last Admin: 01/19/20 07:49 Dose: 1,600 units/hr, 32 mls/hr Documented by: Furosemide 40 mg/ Syringe 4 mls @ 4 mls/min IV DAILY [facility] Stop: 02/13/20 11:59 Last Admin: 01/19/20 07:43 Dose: 4 mls/min Documented by: Ceftriaxone Sodium 2,000 mg/ (Dextrose) 70 mls @ 100 mls/hr IV DAILY [facility]; Protocol Stop: 01/25/20 09:29 Last Infusion: 01/19/20 08:30 Dose: Infused Documented by: Insulin Aspart (Insulin Aspart 100 Units/Ml 3 Ml Pen) 0 units SC ACHS [facility] Stop: 02/15/20 11:29 Last Admin: 01/19/20 12:12 Dose: Not Given Documented by: Ipratropium [place] (Ipratropium [place] Neb Soln 0.02% 2.5 Ml Vial) 0.5 mg INH Q6R PRN PRN Reason: Shortness Of Breath Or Wheezing Stop: 02/13/20 06:59 Lactobacillus Acidophilus (Lactobacillus Acidophilus (Floranex) Tab) 4 tab PO QIDM [facility] Stop: 02/11/20 11:59 Last Admin: 01/19/20 12:12 Dose: Not Given Documented by: Levalbuterol HCl (Levalbuterol 1.25mg/0.5ml Neb) 1.25 mg INH Q6R PRN PRN Reason: Shortness Of Breath Or Wheezing Stop: 02/13/20 06:59 Levothyroxine Sodium (Levothyroxine Sodium 50 Mcg Tablet) 50 mcg PO DAILYBB [facility] Stop: 02/11/20 06:29 Last Admin: 01/19/20 06:05 Dose: 50 mcg Documented by: Magnesium Oxide (Magnesium Oxide 400 Mg Tab) 400 mg PO BID [facility] Stop: 02/10/20 20:59 Last Admin: 01/11/20 20:13 Dose: 400 mg Documented by: Metoprolol Succinate (Metoprolol Succ 50mg Ext Rel Tab) 50 mg PO QAM [facility] Stop: 02/11/20 08:59 Last Admin: 01/19/20 07:44 Dose: 50 mg Documented by: Metoprolol Tartrate (Metoprolol Tartrate 25 Mg Tab) 25 mg PO TID [facility] Stop: 02/15/20 23:55 Last Admin: 01/17/20 22:19 Dose: Not Given Documented by: Metoprolol Tartrate (Metoprolol Tartrate 1 Mg/Ml Vial) 2.5 mg IV Q6 [facility] Stop: 02/17/20 11:59 Last Admin: 01/19/20 12:14 Dose: 2.5 mg Documented by: Mirabegron (Mirabegron Er 25 Mg Tab) 50 mg PO DAILY [facility] Stop: 02/11/20 08:59 Last Admin: 01/13/20 07:47 Dose: 50 mg Documented by: Miscellaneous (Avodart 0.5mg ~ Order Awaiting Action) 1 ea N/A QS [facility] Stop: 02/11/20 00:00 Last Admin: 01/19/20 07:42 Dose: Not Given Documented by: Miscellaneous (Carbohydrates For Hypoglycemia ) 15 - 30 gm PO UD PRN PRN Reason: Hypoglycemia Protocol Stop: 02/15/20 09:14 Olanzapine (Olanzapine 10 Mg/2.1 Ml Sdv) 2.5 mg IM Q4H PRN PRN Reason: Anxiety/Agitation Stop: 02/16/20 02:13 Ondansetron HCl (Ondansetron Inj 2 Mg/Ml 2 Ml Vial) 4 mg IV Q6H PRN PRN Reason: Nausea Stop: 02/10/20 15:53 Pantoprazole Sodium (Pantoprazole 40 Mg Tab) 40 mg PO QAM [facility] Stop: 02/11/20 08:59 Last Admin: 01/19/20 07:44 Dose: 40 mg Documented by: Potassium Chloride (Potassium Chloride 20 Meq Tabcr) 40 meq PO DAILY [facility] Stop: 02/16/20 11:59 Last Admin: 01/19/20 07:43 Dose: 40 meq Documented by: Prednisone (Prednisone 5 Mg Tab) 5 mg PO QAM [facility] Stop: 02/14/20 08:59 Last Admin: 01/19/20 07:43 Dose: 5 mg Documented by: Tamsulosin HCl (Tamsulosin Hcl 0.4 Mg Cap) 0.4 mg PO QPM [facility] Stop: 02/10/20 20:59 Last Admin: 01/18/20 21:52 Dose: 0.4 mg Documented by: Tolterodine Tartrate (Tolterodine Tartrate [place] 4 Mg Capcr) 4 mg PO DAILY [facility] Stop: 02/11/20 08:59 Last Admin: 01/13/20 07:48 Dose: 4 mg Documented by: Vitamin D (Cholecalciferol 1,000 Units 25 Mcg Tab) 2,000 units PO PM [facility] Stop: 02/10/20 20:59 Last Admin: 01/18/20 21:53 Dose: 2,000 units Documented by: (1) Pneumonia Laterality: right Lung location: lower lobe of lung Pneumonia type: due to unspecified organism Qualified Code(s): J18.9 - Pneumonia, unspecified organism
[2020-01-19] MEDS: CHOLECALCIFEROL 1,000 UNITS 25 MCG TAB PO SCH (20:32)
[2020-01-19] MEDS: TAMSULOSIN HCL 0.4 MG CAP PO SCH (20:33)
[2020-01-20] MEDS: METOPROLOL TARTRATE 1 MG/ML VIAL IV SCH ×4 (06:34→23:40)
[2020-01-20] MEDS: LEVOTHYROXINE SODIUM 50 MCG TABLET PO SCH (06:34)
[2020-01-20 07:31] LABS: Basophils # (auto) 0.01 K/uL (0-0.2); Basophils % (auto) 0.1 %; Eosinophils # (auto) 0.32 K/uL (0-0.5); Hematocrit (blood only) 38.9 % (42-52); Immature Granulocytes # (auto) 0.14 K/uL (0.00-0.02); Immature Granulocytes % (auto) 1.8 %; Lymphocytes # (auto) 1.41 K/uL (1.2-3.4); Lymphocytes % (auto) 17.7 %; Mean Corpuscular Hemoglobin 25.5 pg (25-34); Mean Corpuscular Hgb Conc 30.8 g/dL (32-36); Mean Corpuscular Volume 82.6 fL (80-100); Mean Platelet Volume 9.8 fL (7.4-10.4); Monocytes # (auto) 0.47 K/uL (0.11-0.59); Monocytes % (auto) 5.9 %; Neutrophils # (auto) 5.63 K/uL (1.4-6.5); Neutrophils % (auto) 70.5 %; Platelet Count 258 K/uL (130-400); RDW Coefficient of Variation 15.6 % (11.5-14.5); RDW Standard Deviation 47.2 fL (36.4-46.3); Red Blood Count 4.71 M/uL (4.7-6.1); White Blood Count 7.98 K/uL (4.8-10.8)
[2020-01-20 07:52] LABS: Partial Thromboplastin Ratio 2.4
[2020-01-20 07:53] LABS: Partial Thromboplastin Time 68.1 Seconds (21.0-31.0)
[2020-01-20 07:59] LABS: BUN Creatinine Ratio 15.6 (10-20); Calcium 9.1 mg/dl (8.5-10.1); Creatinine Clr Calc Pharmacy 43.6 ml/min; Est GFR (African American) 61.6; Est GFR (Non-African American) 53.1; Magnesium 2.2 mg/dl (1.8-2.4)
[2020-01-20] MEDS: INSULIN ASPART 100 UNITS/ML 3 ML PEN SC SCH ×4 (09:15→20:59)
[2020-01-20] MEDS: LACTOBACILLUS ACIDOPHILUS (FLORANEX) TAB PO SCH ×4 (09:16→20:47)
[2020-01-20] MEDS: POTASSIUM CHLORIDE CRTAB 20 MEQ TABCR PO SCH (09:16)
[2020-01-20] MEDS: METOPROLOL SUCC 50MG EXT REL TAB PO SCH (09:16)
[2020-01-20] MEDS: ATORVASTATIN 40 MG TAB PO SCH (09:17)
[2020-01-20] MEDS: predniSONE 5 MG TAB PO SCH (09:17)
[2020-01-20] MEDS: allopurinoL 300 MG TAB PO SCH (09:17)
[2020-01-20] MEDS: FINASTERIDE 5 MG TAB PO SCH (09:17)
[2020-01-20] MEDS: FUROSEMIDE 40 MG in SYRINGE 0 ML IV SCH (09:17)
[2020-01-20] MEDS: CLOPIDOGREL BISULFATE 75 MG TAB PO SCH (09:17)
[2020-01-20] MEDS: PANTOprazole 40 MG TAB PO SCH (09:17)
[2020-01-20] MEDS: FLUTICASONE FUROATE 200MCG 14 PUFFS/INHALER INH SCH (09:18)
[2020-01-20] MEDS: cefTRIAXone SODIUM 2,000 MG in DEXTROSE 5% 50 ML IV SCH (09:52)
--- NOTE | 2020-01-20 14:12 | Hospitalist Progress Note ---
Date of Service January 20, 2020 Assessment & Plan (1) Pneumonia: Possible Aspiration pneumonia Acute on Chronic respiratory failure with hypoxia--oxygen dependent H/O esophageal dysmotility, hiatal hernia CXR:Right lower lung zone airspace opacity suspicious for pneumonia. Heart is enlarged. large hiatal hernia. Pleural calcifications present. There are scattered calcified granulomas. Speech therapy eval -appreciate input and recommendation Continue Zosyn, added Doxycycline >>Transitioned to Rocephin --complete 10-day course of antibiotics. Status post videofluoroscopic swallowing evaluation-no aspiration was identified Aspiration precaution and diet as advised by speech pathologist Antibiotic course will be finished tomorrow Denies any more symptoms H/O COPD on chronic Prednisone Noncompliant with home supplemental oxygen use Negative Biofire Normal Procalcitonin Blood Culture: No growth Urine culture no growth Continue home inhalers Continue home prednisone, Nebs Titrate oxygen to maintain Sats 88-92% Saturating well on 2 L of supplemental oxygen Mental status--waxes and wanes Atrial flutter with RVR H/O Atrial Flutter Missed taking his home medications on presentation as per patient's daughter Troponin elevation--demand ischemia Was on IV Cardizem and subsequently discontinued discontinued Continue IV heparin for now and is not a candidate for prolonged anticoagulation Appreciate cardiology input Continue metoprolol Rate controlled B/L Pleural effusions and mild congestion in chest x-ray-we will monitor Continue IV Lasix daily--Plan to transition to PO as able We will continue oral Lasix on discharge Acute Metabolic Encephalopathy CT head: No acute intracranial findings Agitated Delirium Hold Gabapentin, Tolterodine, Mirabegron Zyprexa PRN Appreciate Psychiatry Input Pleasantly confused but no more delirium/agitation Will change Zyprexa p.o. 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 Kendrick Continue Plavix, Lipitor Hypothyroidism Normal TSH Continue levothyroxine Moderate to severe aortic stenosis H/O Chronic diastolic heart failure Dehydrated on presentation Suggested to have TAVR by Cardiology as outpatient Patient currently prefers to avoid surgery Cardiology on board Monitor Volume status closely On Lasix at home Dyslipidemia Continue Statin CKD III Monitor renal function Avoid nephrotoxic agents as able DVT Px: on IV Heparin Code Status Full Code May need to readdress code status if clinically deteriorates Disposition To be determined PT/OT prior to discharge Admission and Anticipated Discharge Date Admission Date: January 11, 2020 Subjective 01/19/2020 The patient was seen and examined in medical telemetry unit He denies any significant symptoms today No chest pain, cough or shortness of breath No palpitation, 01/20/2020 The patient was seen and examined in medical telemetry unit He remains stable but generally weak Denies any other symptoms Review of Systems Review of Systems: All systems reviewed and are unremarkable except as noted below Neurologic: + generalized weakness Physical Exam Physical Exam: Lying in bed comfortably Constitutional: well developed, well nourished and + obese; no acute distress and not ill appearing Eyes: PERRL, conjunctivae normal, anicteric sclerae ENMT: external ear and nose normal, oropharynx normal Neck: trachea midline, no thyromegaly Respiratory: normal respiratory effort; no respiratory distress Auscultation: + diminished lung sounds and + crackles (Right basilar crackles) Cardiovascular: Rate/Rhythm: + abnormal rate and + abnormal rhythm Heart Sounds: + murmur (2/6 ESM over precordium) Gastrointestinal (Abdomen): Inspection/Auscultation: abdomen normal to inspection and normal bowel sounds; abdomen not distended Musculoskeletal: No acute arthritis involving any joint Neurologic: moves all extremities; no focal motor deficits Psychiatric: A+Ox3, euthymic affect Lymphatic: no cervical or axillary lymphadenopathy Results & Data Results & Data ([facility]) Vital Signs (Past 12 Hours) Vital Signs Temp Pulse Pulse Resp BP BP BP 01/20/20 12:31 84 129/89 01/20/20 11:30 36.7 C 84 18 129/89 01/20/20 07:22 95 H 01/20/20 07:00 36.7 C 90 20 144/98 H 01/20/20 06:34 94 H 142/89 H 01/20/20 06:00 36.8 C 93 H 18 148/89 H Pulse Ox 01/20/20 12:31 01/20/20 11:30 94 01/20/20 07:22 01/20/20 07:00 97 09/30/20 06:34 01/20/20 06:00 93 Laboratory Results Short CBC 01/20/20 Range/Units 06:59 WBC 7.98 (4.8-10.8) K/uL Hgb 12.0 L (14.0-18.0) g/dL Hct 38.9 L (42-52) % Plt Count 258 (130-400) K/uL BMP 01/20/20 06:59 Sodium 138 Potassium 4.0 Chloride 104 Carbon Dioxide 27 BUN 19 H Creatinine 1.21 Glucose 104 H Calcium 9.1 Medications Administered Current Inpatient Medications Acetaminophen (Acetaminophen 325 Mg Tab) 650 mg PO Q4H PRN PRN Reason: pain/fever Stop: 02/10/20 15:53 Last Admin: 01/13/20 23:19 Dose: 650 mg Documented by: Allopurinol (Allopurinol 300 Mg Tab) 300 mg PO QAM [facility] Stop: 02/11/20 08:59 Last Admin: 01/20/20 09:17 Dose: 300 mg Documented by: Atorvastatin Calcium (Atorvastatin 40 Mg Tab) 40 mg PO QAM [facility] Stop: 02/11/20 08:59 Last Admin: 01/20/20 09:17 Dose: 40 mg Documented by: Clopidogrel Bisulfate (Clopidogrel Bisulfate 75 Mg Tab) 75 mg PO QAM [facility] Stop: 02/11/20 08:59 Last Admin: 01/20/20 09:17 Dose: 75 mg Documented by: Dextrose (Dextrose 50% 50 Ml Syringe) 25 - 50 ml IV UD PRN; Protocol PRN Reason: Hypoglycemia Protocol Stop: 02/15/20 09:14 Finasteride (Finasteride 5 Mg Tab) 5 mg PO QAM [facility] Stop: 02/19/20 08:59 Last Admin: 01/20/20 09:17 Dose: 5 mg Documented by: Fluticasone Furoate (Fluticasone Furoate 200mcg 14 Puffs/Inhaler) 1 puffs INH DAILY [facility] Stop: 02/11/20 08:59 Last Admin: 01/20/20 09:18 Dose: 1 puffs Documented by: Gabapentin (Gabapentin 100 Mg Cap) 100 mg PO TID PRN PRN Reason: Pain Stop: 02/10/20 15:53 Last Admin: 01/13/20 07:49 Dose: 100 mg Documented by: Glucagon (Glucagon For Inj 1 Mg Vial) 1 mg SQ UD PRN; Protocol PRN Reason: Hypoglycemia Protocol Stop: 02/15/20 09:14 Glucose (Glucose 10 Tabs/Tube) 4 - 8 tabs PO UD PRN; Protocol PRN Reason: Hypoglycemia Protocol Stop: 02/15/20 09:14 Glucose (Glucose 40% Gel 15 Gm Tube) 15 - 30 gm PO UD PRN; Protocol PRN Reason: Hypoglycemia Protocol Stop: 02/15/20 09:14 Heparin Sodium/Dextrose (Heparin Sodium/Dextrose) 25,000 units in 500 mls @ 30 mls/hr IV .[id number] [facility]; Protocol Stop: 02/12/20 09:59 Last Titration: 01/20/20 07:54 Dose: 1,500 units/hr, 30 mls/hr Documented by: Ceftriaxone Sodium 2,000 mg/ (Dextrose) 70 mls @ 100 mls/hr IV DAILY [facility]; Protocol Stop: 01/25/20 09:29 Last Infusion: 01/20/20 10:34 Dose: Infused Documented by: Insulin Aspart (Insulin Aspart 100 Units/Ml 3 Ml Pen) 0 units SC ACHS [facility] Stop: 02/15/20 11:29 Last Admin: 01/20/20 12:29 Dose: Not Given Documented by: Ipratropium [place] (Ipratropium [place] Neb Soln 0.02% 2.5 Ml Vial) 0.5 mg INH Q6R PRN PRN Reason: Shortness Of Breath Or Wheezing Stop: 02/13/20 06:59 Lactobacillus Acidophilus (Lactobacillus Acidophilus (Floranex) Tab) 4 tab PO QIDM [facility] Stop: 02/11/20 11:59 Last Admin: 01/20/20 12:31 Dose: 4 tab Documented by: Levalbuterol HCl (Levalbuterol 1.25mg/0.5ml Neb) 1.25 mg INH Q6R PRN PRN Reason: Shortness Of Breath Or Wheezing Stop: 02/13/20 06:59 Levothyroxine Sodium (Levothyroxine Sodium 50 Mcg Tablet) 50 mcg PO DAILYBB [facility] Stop: 02/11/20 06:29 Last Admin: 01/20/20 06:34 Dose: 50 mcg Documented by: Magnesium Oxide (Magnesium Oxide 400 Mg Tab) 400 mg PO BID [facility] Stop: 02/10/20 20:59 Last Admin: 01/11/20 20:13 Dose: 400 mg Documented by: Metoprolol Succinate (Metoprolol Succ 50mg Ext Rel Tab) 50 mg PO QAM [facility] Stop: 02/11/20 08:59 Last Admin: 01/20/20 09:16 Dose: 50 mg Documented by: Metoprolol Tartrate (Metoprolol Tartrate 25 Mg Tab) 25 mg PO TID [facility] Stop: 02/15/20 23:55 Last Admin: 01/17/20 22:19 Dose: Not Given Documented by: Metoprolol Tartrate (Metoprolol Tartrate 1 Mg/Ml Vial) 2.5 mg IV Q6 [facility] Stop: 02/17/20 11:59 Last Admin: 01/20/20 12:31 Dose: 2.5 mg Documented by: Mirabegron (Mirabegron Er 25 Mg Tab) 50 mg PO DAILY [facility] Stop: 02/11/20 08:59 Last Admin: 01/13/20 07:47 Dose: 50 mg Documented by: Miscellaneous (Carbohydrates For Hypoglycemia ) 15 - 30 gm PO UD PRN PRN Reason: Hypoglycemia Protocol Stop: 02/15/20 09:14 Olanzapine (Olanzapine 10 Mg/2.1 Ml Sdv) 2.5 mg IM Q4H PRN PRN Reason: Anxiety/Agitation Stop: 02/16/20 02:13 Ondansetron HCl (Ondansetron Inj 2 Mg/Ml 2 Ml Vial) 4 mg IV Q6H PRN PRN Reason: Nausea Stop: 02/10/20 15:53 Pantoprazole Sodium (Pantoprazole 40 Mg Tab) 40 mg PO QAM [facility] Stop: 02/11/20 08:59 Last Admin: 01/20/20 09:17 Dose: 40 mg Documented by: Potassium Chloride (Potassium Chloride 20 Meq Tabcr) 40 meq PO DAILY [facility] Stop: 02/16/20 11:59 Last Admin: 01/20/20 09:16 Dose: 40 meq Documented by: Prednisone (Prednisone 5 Mg Tab) 5 mg PO QAM [facility] Stop: 02/14/20 08:59 Last Admin: 01/20/20 09:17 Dose: 5 mg Documented by: Tamsulosin HCl (Tamsulosin Hcl 0.4 Mg Cap) 0.4 mg PO QPM [facility] Stop: 02/10/20 20:59 Last Admin: 01/19/20 20:33 Dose: 0.4 mg Documented by: Tolterodine Tartrate (Tolterodine Tartrate La 4 Mg Capcr) 4 mg PO DAILY [facility] Stop: 02/11/20 08:59 Last Admin: 01/13/20 07:48 Dose: 4 mg Documented by: Vitamin D (Cholecalciferol 1,000 Units 25 Mcg Tab) 2,000 units PO PM [facility] Stop: 02/10/20 20:59 Last Admin: 01/19/20 20:32 Dose: 2,000 units Documented by: (1) Pneumonia Laterality: right Lung location: lower lobe of lung Pneumonia type: due to unspecified organism Qualified Code(s): J18.9 - Pneumonia, unspecified organism
[2020-01-20 14:21] LABS: Partial Thromboplastin Ratio 1.4; Partial Thromboplastin Time 39.2 Seconds (21.0-31.0)
[2020-01-20] MEDS ORDERED: HEPARIN IV BOLUS 4,500 UNITS in SYRINGE 0 ML IV ONE (15:00)
[2020-01-20] MEDS: HEPARIN SODIUM/DEXTROSE 25,000 UNITS/500 ML BAG IV SCH (15:32)
[2020-01-20] MEDS: CHOLECALCIFEROL 1,000 UNITS 25 MCG TAB PO SCH (20:48)
[2020-01-20] MEDS: TAMSULOSIN HCL 0.4 MG CAP PO SCH (20:48)
[2020-01-20 21:47] LABS: Partial Thromboplastin Ratio 3.3
[2020-01-20 21:53] LABS: Partial Thromboplastin Time 92.8 Seconds (21.0-31.0)
[2020-01-21 04:47] LABS: Partial Thromboplastin Ratio 2.4
[2020-01-21 04:59] LABS: Partial Thromboplastin Time 66.9 Seconds (21.0-31.0)
[2020-01-21] MEDS: LEVOTHYROXINE SODIUM 50 MCG TABLET PO SCH (06:04)
[2020-01-21] MEDS: METOPROLOL TARTRATE 1 MG/ML VIAL IV SCH ×2 (06:05→12:36)
[2020-01-21] MEDS: LACTOBACILLUS ACIDOPHILUS (FLORANEX) TAB PO SCH ×2 (08:45→12:35)
[2020-01-21] MEDS: METOPROLOL SUCC 50MG EXT REL TAB PO SCH (08:45)
[2020-01-21] MEDS: cefTRIAXone SODIUM 2,000 MG in DEXTROSE 5% 50 ML IV SCH (08:45)
[2020-01-21] MEDS: allopurinoL 300 MG TAB PO SCH (08:46)
[2020-01-21] MEDS: FINASTERIDE 5 MG TAB PO SCH (08:46)
[2020-01-21] MEDS: predniSONE 5 MG TAB PO SCH (08:46)
[2020-01-21] MEDS: CLOPIDOGREL BISULFATE 75 MG TAB PO SCH (08:46)
[2020-01-21] MEDS: POTASSIUM CHLORIDE CRTAB 20 MEQ TABCR PO SCH (08:46)
[2020-01-21] MEDS: ATORVASTATIN 40 MG TAB PO SCH (08:46)
[2020-01-21] MEDS: PANTOprazole 40 MG TAB PO SCH (08:47)
[2020-01-21] MEDS: INSULIN ASPART 100 UNITS/ML 3 ML PEN SC SCH ×2 (08:47→12:35)
[2020-01-21] MEDS: FLUTICASONE FUROATE 200MCG 14 PUFFS/INHALER INH SCH (08:47)
--- NOTE | 2020-01-21 12:14 | Hospitalist Progress Note ---
Date of Service January 21, 2020 Assessment & Plan (1) Pneumonia: Possible Aspiration pneumonia Acute on Chronic respiratory failure with hypoxia--oxygen dependent H/O esophageal dysmotility, hiatal hernia CXR:Right lower lung zone airspace opacity suspicious for pneumonia. Heart is enlarged. large hiatal hernia. Pleural calcifications present. There are scattered calcified granulomas. Speech therapy eval -appreciate input and recommendation Continue Zosyn, added Doxycycline >>Transitioned to Rocephin --complete 10-day course of antibiotics. Status post videofluoroscopic swallowing evaluation-no aspiration was identified Aspiration precaution and diet as advised by speech pathologist Denies any more respiratory symptoms The course of antibiotic is finished today H/O COPD on chronic Prednisone Noncompliant with home supplemental oxygen use Negative Biofire Normal Procalcitonin Blood Culture: No growth Urine culture no growth Continue home inhalers Continue home prednisone, Nebs Titrate oxygen to maintain Sats 88-92% Saturating well on 2 L of supplemental oxygen Mental status--waxes and wanes Atrial flutter with RVR H/O Atrial Flutter Missed taking his home medications on presentation as per patient's daughter Troponin elevation--demand ischemia Was on IV Cardizem and subsequently discontinued discontinued Continue IV heparin for now and is not a candidate for prolonged anticoagulation Appreciate cardiology input Continue metoprolol Rate controlled B/L Pleural effusions and mild congestion in chest x-ray-we will monitor Continue IV Lasix daily--Plan to transition to PO as able We will continue oral Lasix on discharge No more cardiac issues and heart rate is controlled Acute Metabolic Encephalopathy CT head: No acute intracranial findings Agitated Delirium Hold Gabapentin, Tolterodine, Mirabegron Zyprexa PRN Appreciate Psychiatry Input Pleasantly confused but no more delirium/agitation Will change Zyprexa p.o. 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 Kendrick Continue Plavix, Lipitor Hypothyroidism Normal TSH Continue levothyroxine Moderate to severe aortic stenosis H/O Chronic diastolic heart failure Dehydrated on presentation Suggested to have TAVR by Cardiology as outpatient Patient currently prefers to avoid surgery Cardiology on board Monitor Volume status closely On Lasix at home Denies any cardiac symptoms Dyslipidemia Continue Statin CKD III Monitor renal function Avoid nephrotoxic agents as able DVT Px: on IV Heparin IV heparin has been stopped Code Status Full Code May need to readdress code status if clinically deteriorates Disposition He will be transferred to [place] this afternoon Admission and Anticipated Discharge Date Admission Date: January 11, 2020 Subjective 01/19/2020 The patient was seen and examined in medical telemetry unit He denies any significant symptoms today No chest pain, cough or shortness of breath No palpitation, 01/20/2020 The patient was seen and examined in medical telemetry unit He remains stable but generally weak Denies any other symptoms Review of Systems Review of Systems: All systems reviewed and are unremarkable except as noted below Neurologic: + generalized weakness Psychiatric: + depression Physical Exam Physical Exam: Sitting at the edge of the bed without any apparent distress Constitutional: well developed, well nourished and + obese; no acute distress and not ill appearing Eyes: PERRL, conjunctivae normal, anicteric sclerae ENMT: external ear and nose normal, oropharynx normal Neck: trachea midline, no thyromegaly Respiratory: normal respiratory effort; no respiratory distress Auscultation: + diminished lung sounds and + crackles (Right basilar crackles) Cardiovascular: Rate/Rhythm: + abnormal rate and + abnormal rhythm Heart Sounds: + murmur (2/6 ESM over precordium) Gastrointestinal (Abdomen): Inspection/Auscultation: abdomen normal to inspection and normal bowel sounds; abdomen not distended Musculoskeletal: Osteoarthritis but no acute arthritis involving any joint Neurologic: moves all extremities; no focal motor deficits Psychiatric: A+Ox3, euthymic affect Lymphatic: no cervical or axillary lymphadenopathy Results & Data Results & Data ([facility]) Vital Signs (Past 12 Hours) Vital Signs Temp Pulse Pulse Resp BP BP BP 01/21/20 11:26 36.7 C 79 18 109/71 137/93 01/21/20 11:19 36.7 C 79 18 109/71 01/21/20 07:13 84 01/21/20 07:11 36.7 C 84 18 122/85 01/21/20 06:05 96 H 158/83 H 01/21/20 04:00 36.6 C 84 20 136/95 01/21/20 01:52 82 Pulse Ox 01/21/20 11:26 94 01/21/20 11:19 94 01/21/20 07:13 01/21/20 07:11 95 01/21/20 06:05 01/21/20 04:00 95 01/21/20 01:52 Medications Administered Current Inpatient Medications Acetaminophen (Acetaminophen 325 Mg Tab) 650 mg PO Q4H PRN PRN Reason: pain/fever Stop: 02/10/20 15:53 Last Admin: 01/13/20 23:19 Dose: 650 mg Documented by: Allopurinol (Allopurinol 300 Mg Tab) 300 mg PO QAM [facility] Stop: 02/11/20 08:59 Last Admin: 01/21/20 08:46 Dose: 300 mg Documented by: Atorvastatin Calcium (Atorvastatin 40 Mg Tab) 40 mg PO QAM [facility] Stop: 02/11/20 08:59 Last Admin: 01/21/20 08:46 Dose: 40 mg Documented by: Clopidogrel Bisulfate (Clopidogrel Bisulfate 75 Mg Tab) 75 mg PO QAM [facility] Stop: 02/11/20 08:59 Last Admin: 01/21/20 08:46 Dose: 75 mg Documented by: Dextrose (Dextrose 50% 50 Ml Syringe) 25 - 50 ml IV UD PRN; Protocol PRN Reason: Hypoglycemia Protocol Stop: 02/15/20 09:14 Finasteride (Finasteride 5 Mg Tab) 5 mg PO QAM [facility] Stop: 02/19/20 08:59 Last Admin: 01/21/20 08:46 Dose: 5 mg Documented by: Fluticasone Furoate (Fluticasone Furoate 200mcg 14 Puffs/Inhaler) 1 puffs INH DAILY [facility] Stop: 02/11/20 08:59 Last Admin: 01/21/20 08:47 Dose: 1 puffs Documented by: Gabapentin (Gabapentin 100 Mg Cap) 100 mg PO TID PRN PRN Reason: Pain Stop: 02/10/20 15:53 Last Admin: 01/13/20 07:49 Dose: 100 mg Documented by: Glucagon (Glucagon For Inj 1 Mg Vial) 1 mg SQ UD PRN; Protocol PRN Reason: Hypoglycemia Protocol Stop: 02/15/20 09:14 Glucose (Glucose 10 Tabs/Tube) 4 - 8 tabs PO UD PRN; Protocol PRN Reason: Hypoglycemia Protocol Stop: 02/15/20 09:14 Glucose (Glucose 40% Gel 15 Gm Tube) 15 - 30 gm PO UD PRN; Protocol PRN Reason: Hypoglycemia Protocol Stop: 02/15/20 09:14 Insulin Aspart (Insulin Aspart 100 Units/Ml 3 Ml Pen) 0 units SC ACHS [facility] Stop: 02/15/20 11:29 Last Admin: 01/21/20 08:47 Dose: Not Given Documented by: Ipratropium [place] (Ipratropium [place] Neb Soln 0.02% 2.5 Ml Vial) 0.5 mg INH Q6R PRN PRN Reason: Shortness Of Breath Or Wheezing Stop: 02/13/20 06:59 Lactobacillus Acidophilus (Lactobacillus Acidophilus (Floranex) Tab) 4 tab PO QIDM [facility] Stop: 02/11/20 11:59 Last Admin: 01/21/20 08:45 Dose: 4 tab Documented by: Levalbuterol HCl (Levalbuterol 1.25mg/0.5ml Neb) 1.25 mg INH Q6R PRN PRN Reason: Shortness Of Breath Or Wheezing Stop: 02/13/20 06:59 Levothyroxine Sodium (Levothyroxine Sodium 50 Mcg Tablet) 50 mcg PO DAILYBB [facility] Stop: 02/11/20 06:29 Last Admin: 01/21/20 06:04 Dose: 50 mcg Documented by: Magnesium Oxide (Magnesium Oxide 400 Mg Tab) 400 mg PO BID [facility] Stop: 02/10/20 20:59 Last Admin: 01/11/20 20:13 Dose: 400 mg Documented by: Metoprolol Succinate (Metoprolol Succ 50mg Ext Rel Tab) 50 mg PO QAM [facility] Stop: 02/11/20 08:59 Last Admin: 01/21/20 08:45 Dose: 50 mg Documented by: Metoprolol Tartrate (Metoprolol Tartrate 25 Mg Tab) 25 mg PO TID [facility] Stop: 02/15/20 23:55 Last Admin: 01/17/20 22:19 Dose: Not Given Documented by: Metoprolol Tartrate (Metoprolol Tartrate 1 Mg/Ml Vial) 2.5 mg IV Q6 [facility] Stop: 02/17/20 11:59 Last Admin: 01/21/20 06:05 Dose: 2.5 mg Documented by: Mirabegron (Mirabegron Er 25 Mg Tab) 50 mg PO DAILY [facility] Stop: 02/11/20 08:59 Last Admin: 01/13/20 07:47 Dose: 50 mg Documented by: Miscellaneous (Carbohydrates For Hypoglycemia ) 15 - 30 gm PO UD PRN PRN Reason: Hypoglycemia Protocol Stop: 02/15/20 09:14 Olanzapine (Olanzapine 10 Mg/2.1 Ml Sdv) 2.5 mg IM Q4H PRN PRN Reason: Anxiety/Agitation Stop: 02/16/20 02:13 Ondansetron HCl (Ondansetron Inj 2 Mg/Ml 2 Ml Vial) 4 mg IV Q6H PRN PRN Reason: Nausea Stop: 02/10/20 15:53 Pantoprazole Sodium (Pantoprazole 40 Mg Tab) 40 mg PO QAM [facility] Stop: 02/11/20 08:59 Last Admin: 01/21/20 08:47 Dose: 40 mg Documented by: Potassium Chloride (Potassium Chloride 20 Meq Tabcr) 40 meq PO DAILY [facility] Stop: 02/16/20 11:59 Last Admin: 01/21/20 08:46 Dose: 40 meq Documented by: Prednisone (Prednisone 5 Mg Tab) 5 mg PO QAM [facility] Stop: 02/14/20 08:59 Last Admin: 01/21/20 08:46 Dose: 5 mg Documented by: Tamsulosin HCl (Tamsulosin Hcl 0.4 Mg Cap) 0.4 mg PO QPM [facility] Stop: 02/10/20 20:59 Last Admin: 01/20/20 20:48 Dose: 0.4 mg Documented by: Tolterodine Tartrate (Tolterodine Tartrate La 4 Mg Capcr) 4 mg PO DAILY [facility] Stop: 02/11/20 08:59 Last Admin: 01/13/20 07:48 Dose: 4 mg Documented by: Vitamin D (Cholecalciferol 1,000 Units 25 Mcg Tab) 2,000 units PO PM [facility] Stop: 02/10/20 20:59 Last Admin: 01/20/20 20:48 Dose: 2,000 units Documented by: (1) Pneumonia Laterality: right Lung location: lower lobe of lung Pneumonia type: due to unspecified organism Qualified Code(s): J18.9 - Pneumonia, unspecified organism
--- NOTE | 2020-01-22 09:42 | Discharge Summary ---
Date of Service January 22, 2020 Admission HPI Per Admitting Provider 89-year-old male with a past medical history of acute kidney injury, anemia, aortic stenosis, benign prostatic hypertrophy, chronic diastolic congestive heart failure, CKD 3, COPD, hyperlipidemia, dysphagia, esophageal dysmotility, GERD, a flutter, hia hypertension, neuropathy,xiao hernia, peptic ulcer disease, renal stones, osteoarthritis, osteoporosis, peripheral vascular disease, psoriatic arthritis, ankle ulcer, toe osteomyelitis, tobacco use disorder, venous ulcer, and umbilical hernia who presents the emergency room complaining of diarrhea, dehydration, shortness of breath, weakness and poor appetite over the last [address] Jeffers and follows him closely. He also complains of urinary hesitancy, decreased p.o. intake and a rapid heart rate. He comes in c, a white count of 11, complaining of shortness of breath and cough and was found to have a right lower lobe pneumonia. He received a 1 L bolus in the emergency room was started on Rocephin, but not restarted on Zithromax secondary to QT interval. Admission Exam Per Admitting Provider Gen-AAO x 3, NAD, Afebrile, weak, pleasant Head-NCAT, EOMI, PERRLA, Anicteric Sclera, No Posterior Pharyngeal Erythema Neck-Supple, No JVD, No Thyromegaly, No Masses, No LAD, No Bruits Lungs-Clear to Auscultation Bilaterally, No Rales, No Rhonchi, No Wheezing, No Crepitus Chest-No S4, +S1, +S2, No S3, No Murmurs, No Rubs, No Gallops, No Ectopy Abdomen-Soft, Bowel Sounds Present, Non Tender, Non Distended, No Hepatomegaly, No Splenomegaly, No Palpable Masses, No Rebound, No Rigidity, No Guarding Musculoskeletal-Full Range of Motion Bilaterally, No CVAT Extremities-No Cyanosis, No Clubbing, No Edema Nuero-Cranial Nerves II-XII grossly intact, Motor WNL, DTRs WNL, Strength WNL, Non Focal Psych-Normal Mood Principal Diagnosis Possible aspiration pneumonia, atrial flutter with controlled rate, COPD, diabetes type 2, moderate to severe aortic stenosis,Metabolic encephalopathy - resolved Discharge Exam Constitutional well developed, well nourished and + obese; no acute distress and not ill appearing Eyes PERRL, conjunctivae normal, anicteric sclerae ENMT external ear and nose normal, oropharynx normal Neck trachea midline, no thyromegaly Respiratory normal respiratory effort; no respiratory distress Auscultation: + diminished lung sounds and + crackles (Right basilar crackles) Cardiovascular Rate/Rhythm: + abnormal rate and + abnormal rhythm Heart Sounds: + murmur (2/6 ESM over precordium) Gastrointestinal (Abdomen) Inspection/Auscultation: abdomen normal to inspection and normal bowel sounds; abdomen not distended Neurologic moves all extremities; no focal motor deficits Psychiatric A+Ox3, euthymic affect Lymphatic no cervical or axillary lymphadenopathy Discharge Data Allergies Allergy/AdvReac Type Severity Reaction Status Date / Time morphine Allergy Unknown "out of it Verified 01/11/20 11:32 for days" [place] And Derivatives AdvReac Intermediate STOMACH Verified 01/11/20 11:32 ACHE FROM [employer]RUS JUICE tomato AdvReac Intermediate HEADACHE Verified 01/11/20 11:32 FROM TOMATO JUICE colchicine AdvReac Mild GI upset Verified 01/11/20 11:32 Consultations 01/11/20 15:21 ED Decision to Admit Stat 01/13/20 07:51 Consult Cardiology Routine 01/15/20 07:29 Consult Pony Roll Finisher Routine 01/15/20 11:07 Consult Psychiatry Routine Ordered Studies 01/14/20 18:20 CT head/brain wo con Urgent 01/18/20 11:30 FL video swallow Routine Hospital Course (1) Pneumonia: Possible Aspiration pneumonia Acute on Chronic respiratory failure with hypoxia--oxygen dependent H/O esophageal dysmotility, hiatal hernia CXR:Right lower lung zone airspace opacity suspicious for pneumonia. Heart is enlarged. large hiatal hernia. Pleural calcifications present. There are scattered calcified granulomas. Speech therapy eval -appreciate input and recommendation Continue Zosyn, added Doxycycline >>Transitioned to Rocephin --complete 10-day course of antibiotics. Status post videofluoroscopic swallowing evaluation-no aspiration was identified Aspiration precaution and diet as advised by speech pathologist Denies any more respiratory symptoms The course of antibiotic is finished today H/O COPD on chronic Prednisone Noncompliant with home supplemental oxygen use Negative Biofire Normal Procalcitonin Blood Culture: No growth Urine culture no growth Continue home inhalers Continue home prednisone, Nebs Titrate oxygen to maintain Sats 88-92% Saturating well on 2 L of supplemental oxygen Mental status--waxes and wanes Atrial flutter with RVR H/O Atrial Flutter Missed taking his home medications on presentation as per patient's daughter Troponin elevation--demand ischemia Was on IV Cardizem and subsequently discontinued discontinued Continue IV heparin for now and is not a candidate for prolonged anticoagulation Appreciate cardiology input Continue metoprolol Rate controlled B/L Pleural effusions and mild congestion in chest x-ray-we will monitor Continue IV Lasix daily--Plan to transition to PO as able We will continue oral Lasix on discharge No more cardiac issues and heart rate is controlled Acute Metabolic Encephalopathy CT head: No acute intracranial findings Agitated Delirium Hold Gabapentin, Tolterodine, Mirabegron Zyprexa PRN Appreciate Psychiatry Input Pleasantly confused but no more delirium/agitation Will change Zyprexa p.o. 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 Kendrick Continue Plavix, Lipitor Hypothyroidism Normal TSH Continue levothyroxine Moderate to severe aortic stenosis H/O Chronic diastolic heart failure Dehydrated on presentation Suggested to have TAVR by Cardiology as outpatient Patient currently prefers to avoid surgery Cardiology on board Monitor Volume status closely On Lasix at home Denies any cardiac symptoms Dyslipidemia Continue Statin CKD III Monitor renal function Avoid nephrotoxic agents as able DVT Px: on IV Heparin IV heparin has been stopped Code Status Full Code May need to readdress code status if clinically deteriorates Disposition He will be transferred to [facility] this afternoon Total Time Total Time Spent Total Time Spent (In Minutes): 35 minutes Total Time Includes: Examination of the Patient, Discharge Planning, Medication Reconciliation and Communication With Other Providers Discharge Plan Discharge Items Patient Disposition: Transfer Shelter Fac Reason For Visit: PNA, WEAKNESS, DEHYDRATION Discharge Diagnosis: Possible aspiration pneumonia, atrial flutter with controlled rate, COPD, diabetes type 2, moderate to severe aortic stenosis,Metabolic encephalopathy - resolved Condition on Discharge: Fair Activity: As commented below Activity Comment: As per PT and OT Non-emergency contact: Primary Care Provider Call non-emergency contact if: you have any medication questions and your symptoms worsen Follow-up/Referrals: Patrick Albarran MD [Primary Care Provider] - (Please make an appointment with your PCP within 7 days following discharge from the facility) Diet: Carb Consistent or DM2 Fluids: 1800ml (7 cups) Diet Texture: Pureed (blended smooth) Addtl Attending Provider Instructions: Please take precaution to avoid falls Maintain aspiration precaution while eating Pending Studies at Discharge: No Stand-Alone Forms: My [facility] Skilled Items Patient informed of condition?: Yes DNR: No Discharge Level of Care: Skilled Communicable Disease: No Discharge Prognosis: Stable Lines: None Urinary Catheter: No Medications and DC Order Prescriptions: New gabapentin 100 mg Capsule 100 mg PO TID PRN (Reason: pain) 30 Days Qty: 60 RF: 0 olanzapine [Zyprexa] 2.5 mg tablet 2.5 mg PO Q6HWA PRN (Reason: agitation) Qty: 30 RF: 0 Continued furosemide 20 mg tablet 20 mg PO UD RF: 0 dutasteride [Avodart] 0.5 mg capsule 0.5 mg PO DAILY Qty: 90 RF: 1 tolterodine 4 mg capsule,extended release 24hr 4 mg PO DAILY Qty: 90 RF: 1 Myrbetriq 50 mg tablet extended release 24 hr 50 mg PO DAILY Qty: 90 RF: 1 tamsulosin 0.4 mg capsule 0.4 mg PO QPM Qty: 90 RF: 1 atorvastatin 40 mg tablet 40 mg PO QAM Qty: 90 RF: 0 clopidogrel 75 mg tablet 75 mg PO QAM Qty: 30 RF: 0 allopurinol 300 mg tablet 300 mg PO QAM Qty: 90 RF: 0 metoprolol succinate 50 mg tablet extended release 24 hr 50 mg PO QAM RF: 0 ondansetron HCl [Zofran] 4 mg Tablet 4 mg PO Q8H PRN (Reason: Nausea And Vomiting) RF: 0 prednisone 5 mg Tablet 5 mg PO QAM RF: 0 pantoprazole 20 mg Tablet,Delayed Release (Dr/Ec) 40 mg PO QAM RF: 0 Asmanex Twisthaler 220 mcg/ actuation (120) Aerosol Powdr Breath Activated 2 inh INHALATION BID RF: 0 Men's Daily Multivit-Mineral 0.4-600 mg-mcg Tablet 1 tab PO DAILY RF: 0 Combivent Respimat 20-100 mcg/actuation Mist 1 puff INHALATION QID PRN (Reason: Shortness Of Breath Or Wheezing) RF: 0 vitamin B complex [Super B-50 Complex] Capsule 1 cap PO PM RF: 0 cholecalciferol (vitamin D3) [Vitamin D3] 2,000 unit Tablet 2,000 unit PO PM RF: 0 magnesium oxide 400 mg magnesium Tablet 400 mg PO BID RF: 0 amlodipine 2.5 mg Tablet 2.5 mg PO QAM RF: 0 ferrous sulfate 325 mg (65 mg iron) Tablet 325 mg PO DAILY RF: 0 levothyroxine 50 mcg Tablet 50 mcg PO QAM RF: 0 Discontinued tramadol 50 mg Tablet 50 - 100 mg PO Q6H PRN (Reason: Pain) RF: 0 gabapentin 300 mg Capsule 300 - 600 mg PO TID PRN (Reason: Pain) RF: 0 Discharge Orders: Discharge Order (Routine); Ordered 01/21/20 Ordered By: Khalif De La Cruz Admission Data Admit Date/Time: 01/11/20 12:34 Attending Provider: Khalif De La Cruz Admit Provider: Julian Galvan Primary Care Provider: Patrick Albarran Other Providers: Lg Ramos ; Julian Galvan ; Walt Alvares ; Amadeo Ramirez ; Eliana Farrell ; Louie Ramos Other Interventions: Discharge Summary Assessment (RN) Last Done: 01/21/20 11:26
== END 2020-01-21 17:01 | DRG 177 ==
LOC: ED 09:45 → SUATTDRO 12:34 → 2N 12:34 → 2E 01-13 10:57 → 1E 01-14 18:29 → 2W 01-15 16:15

== ENCOUNTER 2020-06-06 10:42 | Inpatient (IN) ==
[2020-06-06] MEDS ORDERED: SODIUM CHLORIDE 0.9% 500 ML IV ONE (11:24)
--- NOTE | 2020-06-06 11:24 | Emergency Department Note ---
Impression & Plan Chest pain, Fall, Abnormal ECG, Cervical spine fracture ED Provider Note NAME: BAILEE COTTON AGE: 89 SEX: M : 1930 ARRIVES VIA: Walk-In INFORMANT: Patient, daughter ED PROVIDER(S): Bud Duckworth DO CHIEF COMPLAINT: fall, chest pain and HTN HPI: Patient is an 89-year-old male who presents to the ER via EMS. Per report he fell out of bed and was complaining of chest pain. He was found to be hypoxic and hypertensive. He also noted that he complained of chest pain again shortly thereafter this. He notes that he was try to get himself into bed. The beds are very high. He went to sit on it and was unable to grab onto anything and he slid down. He did not hit his head or neck. He fell onto his buttocks. There was no loss consciousness. He has no pain from the fall. He hit the button and they came in to help him. He also complains of left-sided chest pain which is painful with palpation. It has been there since yesterday. It is also worse with twisting, turning, and bending. It did not occur from the fall. He admits to not taking his medications morning as he felt nauseated. Denies any dysuria, urgency or frequency. ROS: See above HPI for pertinent positives & negatives. A total of 10 systems reviewed and were otherwise negative. PAST MEDICAL HISTORY:See Below PAST SURGICAL HISTORY:See Below FAMILY HISTORY:See Below SOCIAL HISTORY:See Below HOME MEDICATIONS:See Below ALLERGIES:See Below VITALS:See Below PHYSICAL EXAMINATION: GENERAL: Sitting up in bed, alert, well appearing, well nourished, no distress, non-toxic EYE EXAM: normal conjunctiva. PERRL and EOM's intact. OROPHARYNX: no exudate, no erythema, lips, buccal mucosa, and tongue normal and mucous membranes are moist NECK: supple, no nuchal rigidity, no adenopathy, non-tender LUNGS: Clear to auscultation. Normal chest wall mechanics HEART: no murmurs, S1 normal and S2 normal ABDOMEN: abdomen soft, non-tender, normo-active bowel sounds, no masses, no rebound or guarding. UPPER EXTREMITIES: upper extremities are grossly normal. LOWER EXTREMITIES: Mild edema bilaterally. Bilateral toe amputations. NEURO EXAM: Normal sensorium-oriented to person, place, year and current election details, cranial nerves II-XII intact, normal speech, no weakness of arms, no weakness of legs. No drift. Finger to nose intact. Gross sensation intact. MEDICAL DECISION MAKING: Patient is an 89-year-old male who presents ER for mechanical fall being found down hypoxic and hypertensive. They note he was slightly more confused last night and earlier today. He adamantly admits he did not hit his head or neck. He fell onto his buttocks. IV was established blood work was obtained. Labs show leukocytosis of 12,000. No significant anemia. BMP with a slightly elevated sodium at 146. Chloride slightly elevated at 109. LFTs bilirubin and lipase is unremarkable. Covid was negative. Troponin was detectable but not positive. CT angio of the chest head and cervical spine showed no acute pathology with exception of a questionable subacute fracture at C5. He is completely neurologically intact. He was placed in a Momence J. Discussed with hospitalist will be admitted for further work-up. Triage Nursing notes reviewed. Limited review of prior medical records performed Vital Signs: reviewed and remarkable for HTN and tachy Differential diagnosis: Differential diagnoses includes but is not limited to acute coronary syndrome, myocardial infarction, pericarditis, pulmonary embolus, aortic dissection, pneumonia, pneumothorax, musculoskeletal, shingles, esophageal. ER treatment provided: See below Diagnostics interpreted by me: ECG: Sinus rhythm rate of 101 First-degree AV block Left axis ST depressions in the high lateral leads QTC 477 Cardiac Monitoring: An order was placed for continuous cardiac monitoring. The monitor shows a rate of 102 with sinus rhythm. Laboratory studies: As stated above and show below. Imaging studies: CT head, cervical spine and chest as discussed above in MDM Consultation(s): Discussed with hospitalist for further evaluation Procedures: none Critical Care: None Past Med/Surg History Medical History (Updated 06/06/20 @ 16:45 by Bud Duckworth DO) Amputation of toe LEFT/RT SECOND TOE Anemia Aortic stenosis Per echo 03/2019 -- SEVERE. FCO 0.61cm, mean gradient 38.2. Symptomatic, dyspnea (but also has COPD). Following with Dr. Huntley ([facility]) with serial echos q 6mo to evaluate for possible TAVR. Last office visit was 02/05/19, was to f/u in 6 months with new echo but not done due to covid19 pandemic. Did have telehealth visit 09/16 with regular forging die sinker. Cardio aware of upcoming toe amputation. BPH (benign prostatic hypertrophy) Chronic diastolic heart failure Chronic venous insufficiency CKD (chronic kidney disease), stage III COPD (chronic obstructive pulmonary disease) Dyslipidemia Dysphagia Elevated PSA Esophageal dysmotility GERD (gastroesophageal reflux disease) Gout H/O atrial flutter "occurred postoperatively in 01/2014, converted to sinus rhythm with IV diltiazem" H/O diastolic dysfunction Grade II per 03/2019 echo Hiatal hernia History of duodenal ulcer History of heart valve insufficiency Mild TR History of kidney stones Hypertension Neuropathy Nocturnal hypoxemia On home oxygen therapy WEARS O2 AT 2L AT HS Osteoarthritis Osteoporosis Peripheral vascular disease s/p angioplasty of right posterior tibial artery Psoriatic arthritis Renal lesion Tobacco abuse Umbilical hernia Urinary incontinence Urinary retention Volvulus of stomach Surgical History Family history of reaction to anesthesia DAUGHTER-NAUSEA/VOMITTING History of angioplasty of peripheral vessel History of cardiac cath 1 YEAR AGO AT [facility] History of cataract surgery RT/LEFT History of colonoscopy History of esophagogastroduodenoscopy (EGD) History of lithotripsy History of lumbar fusion History of tooth extraction Status post endovenous radiofrequency ablation of saphenous vein Family History Mother Colorectal cancer Sister Breast cancer Lung cancer Father Parkinson disease Brother Nephrolithiasis Social History Smoking Status: Former smoker Tobacco Type: Cigarettes Second Hand Exposure: No; Hx Alcohol Use: No Hx Substance Use: No Preferred Language: Jordanian Communication Ability: Impaired Visual Impairment: Limited Hearing Ability: Normal Medical Assistant Cardiology Required: No marital status: / Current Living Situation: Family Current Living Situation Comment: son lives with him current occupational status: retired other: walks with walker Feels Safe at Home: Yes Assistive Devices: Oxygen - Continuous Allergies Allergies Allergy/AdvReac Type Severity Reaction Status Date / Time morphine Allergy Unknown "out of it Verified 06/06/20 11:33 for days" [place] And Derivatives AdvReac Intermediate STOMACH Verified 06/06/20 11:33 ACHE FROM [employer] tomato AdvReac Intermediate HEADACHE Verified 06/06/20 11:33 FROM TOMATO JUICE colchicine AdvReac Mild GI upset Verified 06/06/20 11:33 Home Meds Home Medications Medication Instructions Recorded Confirmed allopurinol 300 mg tablet 300 mg PO QAM #90 tab 01/05/19 06/06/20 atorvastatin 40 mg tablet 40 mg PO QAM #90 tab 01/05/19 06/06/20 clopidogrel 75 mg tablet 75 mg PO QAM #30 tab 01/05/19 06/06/20 Asmanex Twisthaler 2 inh INHALATION BID 03/24/19 06/06/20 Combivent Respimat 1 puff INHALATION QID PRN 03/24/19 06/06/20 Men's Daily Multivit-Mineral 1 tab PO DAILY 03/24/19 06/06/20 cholecalciferol (vitamin D3) 2,000 unit PO PM 03/24/19 06/06/20 [Vitamin D3] magnesium oxide 400 mg PO BID 03/24/19 06/06/20 ondansetron HCl [Zofran] 4 mg PO Q8H PRN 03/24/19 06/06/20 prednisone 5 mg PO QAM 03/24/19 06/06/20 furosemide 20 mg tablet 40 mg PO DAILY tab 05/05/19 06/06/20 ferrous sulfate 325 mg PO DAILY 09/17/19 06/06/20 levothyroxine 100 mcg PO QAM 01/11/20 06/06/20 acetaminophen 325 mg PO QID PRN 06/06/20 06/06/20 docusate sodium 100 mg PO BID 06/06/20 06/06/20 finasteride 5 mg PO DAILY 06/06/20 06/06/20 gabapentin 200 mg PO TID 06/06/20 06/06/20 melatonin 4 mg PO HS 06/06/20 06/06/20 metoprolol tartrate 25 mg PO BID 06/06/20 06/06/20 mirtazapine 7.5 mg PO HS 06/06/20 06/06/20 oxybutynin chloride 5 mg PO DAILY 06/06/20 06/06/20 saliva substitute combo no.9 1 ea PO DAILY 06/06/20 06/06/20 [Biotene Dry Mouth Oral Rinse] Previous Rx's Medication Instructions Recorded mirabegron 50 mg tablet,extended 50 mg PO DAILY #90 tab 12/07/19 release 24 hr tamsulosin 0.4 mg capsule 0.4 mg PO QPM #90 cap 12/07/19 Results & Data (ED) Vital Signs Vital Signs - 24 hr 06/06/20 10:48 06/06/20 11:30 06/06/20 11:46 Temperature 37.1 C Temperature Source Temporal Artery Scan Pulse Rate 98 H 95 H 100 H Pulse Rate from SpO2 Sensor Respiratory Rate 16 32 H 27 H Respiratory Effort / Characteristics Non-Labored Respiratory Depth Normal Blood Pressure 176/102 H 178/123 H Blood Pressure Mean 126 141 Blood Pressure Position Sitting Pulse Oximetry 93 Oxygen Delivery Method Room Air Sepsis Recent Fever Within 48 Hours No Sepsis New/Unexplained Change in Mental Status No Sepsis Action Taken by Nursing No Action Required 06/06/20 12:00 06/06/20 12:11 06/06/20 12:30 Temperature Temperature Source Pulse Rate 102 H 103 H 105 H Pulse Rate from SpO2 Sensor 106 H Respiratory Rate 27 H 22 21 Respiratory Effort / Characteristics Respiratory Depth Blood Pressure 175/119 H 181/112 H Blood Pressure Mean 137 135 Blood Pressure Position Pulse Oximetry Oxygen Delivery Method Sepsis Recent Fever Within 48 Hours Sepsis New/Unexplained Change in Mental Status Sepsis Action Taken by Nursing 06/06/20 12:31 06/06/20 13:00 06/06/20 13:01 Temperature Temperature Source Pulse Rate 106 H 106 H 102 H Pulse Rate from SpO2 Sensor 104 H Respiratory Rate 27 H 26 H 23 Respiratory Effort / Characteristics Respiratory Depth Blood Pressure 186/117 H 180/109 H Blood Pressure Mean 140 132 Blood Pressure Position Pulse Oximetry Oxygen Delivery Method Sepsis Recent Fever Within 48 Hours Sepsis New/Unexplained Change in Mental Status Sepsis Action Taken by Nursing 06/06/20 13:30 06/06/20 13:31 06/06/20 14:00 Temperature Temperature Source Pulse Rate 105 H 104 H 109 H Pulse Rate from SpO2 Sensor Respiratory Rate 28 H 25 H 37 H Respiratory Effort / Characteristics Respiratory Depth Blood Pressure 187/113 H 156/118 H Blood Pressure Mean 137 130 Blood Pressure Position Pulse Oximetry Oxygen Delivery Method Sepsis Recent Fever Within 48 Hours Sepsis New/Unexplained Change in Mental Status Sepsis Action Taken by Nursing Laboratory Data Result diagrams: 06/06/20 11:40 06/06/20 11:40 Lab Results 06/06/20 06/06/20 Range/Units 11:40 11:40 WBC 12.26 H (4.8-10.8) K/uL RBC 4.92 (4.7-6.1) M/uL Hgb 13.3 L (14.0-18.0) g/dL Hct 42.4 (42-52) % MCV 86.2 (80-100) fL MCH 27.0 (25-34) pg MCHC 31.4 L (32-36) g/dL RDW Std Deviation 51.6 H (36.4-46.3) fL RDW Coeff of Morris 16.3 H (11.5-14.5) % Plt Count 208 (130-400) K/uL MPV 9.2 (7.4-10.4) fL Immature Gran % (Auto) 0.2 % Neut % (Auto) 80.7 % Lymph % (Auto) 11.7 % Nicholas % (Auto) 5.7 % Eos % (Auto) 1.5 % Baso % (Auto) 0.2 % Neut # (Auto) 9.89 H (1.4-6.5) K/uL Lymph # (Auto) 1.44 (1.2-3.4) K/uL Nicholas # (Auto) 0.70 H (0.11-0.59) K/uL Eos # (Auto) 0.18 (0-0.5) K/uL Baso # (Auto) 0.02 (0-0.2) K/uL Immature Gran # (Auto) 0.03 H (0.00-0.02) K/uL Sodium 146 H (136-145) mmol/L Potassium 4.1 (3.5-5.1) mmol/L Chloride 109 H (98-107) mmol/L Carbon Dioxide 32 (21-32) mmol/L Anion Gap 5.0 (3-11) BUN 24 H (7-18) mg/dl Creatinine 1.31 (0.6-1.4) mg/dl Est Cr Clr Drug Dosing Not Reportable Est GFR ( Amer) 55.9 Est GFR (Non-Af Amer) 48.3 BUN/Creatinine Ratio 18.0 (10-20) Glucose 109 H (70-99) mg/dl Calcium 9.3 (8.5-10.1) mg/dl Total Bilirubin 1.0 (0.2-1) mg/dl AST 23 (15-37) U/L ALT 17 (12-78) U/L Alkaline Phosphatase 120 H (45-117) U/L Troponin I 0.028 (0-0.045) ng/ml Total Protein 8.6 H (6.4-8.2) gm/dl Albumin 3.4 (3.4-5.0) gm/dl Globulin 5.2 H (2.5-4.0) gm/dl Albumin/Globulin Ratio 0.7 L (0.9-2) Lipase 91 (73-393) U/L Specimen Hemolysis Administered Medications Discontinued Medications Amlodipine Besylate (Amlodipine Besylate 5 Mg Tab) 2.5 mg PO NOW ONE Stop: 06/06/20 11:27 Last Admin: 06/06/20 11:56 Dose: 2.5 mg Documented by: [id number] Sodium Chloride (Nss) 500 mls @ 999 mls/hr IV .Q31M ONE Stop: 06/06/20 11:54 Last Infusion: 06/06/20 12:42 Dose: 0 mls/hr Documented by: [id number] Admin: 06/06/20 12:11 Dose: 999 mls/hr Documented by: [id number] Ioversol (Optiray 320 125ml) 119 ml IV ONCE ONE Stop: 06/06/20 12:46 Last Admin: 06/06/20 12:45 Dose: 119 ml Documented by: [id number] Metoprolol Succinate (Metoprolol Succ 50mg Ext Rel Tab) 50 mg PO NOW STA Stop: 06/06/20 11:27 Last Admin: 06/06/20 12:12 Dose: 50 mg Documented by: [id number] Discharge Plan Visit Data Chief Complaint: Fall Stated Complaint: FELL OUT OF BED ED Provider: Bud Duckworth Discharge Problem: Chest pain, Fall, Abnormal ECG, Cervical spine fracture Patient Disposition: Admitted As Inpatient Discharge Instructions Interventions: ED Discharge Assessment Last Done: 06/06/20 16:21 Discharge Problem: Chest pain Qualifiers: Chest pain type: unspecified Qualified Code(s): R07.9 - Chest pain, unspecified Fall Qualifiers: Encounter type: initial encounter Qualified Code(s): W19.XXXA - Unspecified fall, initial encounter Cervical spine fracture Qualifiers: Encounter type: initial encounter Cervical vertebra fracture level: C5 Fracture type: closed Fracture morphology: unspecified fracture morphology Fracture alignment: nondisplaced Qualified Code(s): S12.401A - Unspecified nondisplaced fracture of fifth cervical vertebra, initial encounter for closed fracture
[2020-06-06] MEDS ORDERED: amLODIPine BESYLATE 5 MG TAB PO ONE (11:26)
[2020-06-06] MEDS ORDERED: METOPROLOL SUCC 50MG EXT REL TAB PO STA (11:26)
[2020-06-06 11:53] LABS: Basophils # (auto) 0.02 K/uL (0-0.2); Basophils % (auto) 0.2 %; Eosinophils # (auto) 0.18 K/uL (0-0.5); Eosinophils % (auto) 1.5 %; Hematocrit (blood only) 42.4 % (42-52); Hemoglobin 13.3 g/dL (14.0-18.0); Immature Granulocytes # (auto) 0.03 K/uL (0.00-0.02); Immature Granulocytes % (auto) 0.2 %; Lymphocytes # (auto) 1.44 K/uL (1.2-3.4); Lymphocytes % (auto) 11.7 %; Mean Corpuscular Hgb Conc 31.4 g/dL (32-36); Mean Corpuscular Volume 86.2 fL (80-100); Mean Platelet Volume 9.2 fL (7.4-10.4); Monocytes % (auto) 5.7 %; Neutrophils # (auto) 9.89 K/uL (1.4-6.5); Neutrophils % (auto) 80.7 %; Platelet Count 208 K/uL (130-400); RDW Coefficient of Variation 16.3 % (11.5-14.5); RDW Standard Deviation 51.6 fL (36.4-46.3); Red Blood Count 4.92 M/uL (4.7-6.1); White Blood Count 12.26 K/uL (4.8-10.8)
--- NOTE | 2020-06-06 12:10 | XRay Report ---
XR chest 1V portable HISTORY: Atypical Chest Pain COMPARISON: Chest 01/14/2020. FINDINGS: No pneumothorax. Bilateral pleural effusions have improved/resolved in the interval. There is a large hiatus hernia. The heart remains mildly enlarged. Left-sided calcified granulomas are agai n noted. Patchy bibasilar densities have also improved. There is mild central pulmonary vascular christiane estion without overt edema. There is a 2.4 cm nodular density within the right midlung zone remaining . This may correspond to the patient's known calcified pleural plaque at this location. Bibasilar hector cified pleural plaques are again noted. IMPRESSION: 1. Improved aeration within the lungs with decrease in size of the bilateral pleural effusions. 2. Large hiatus hernia, unchanged. 3. Calcified pleural plaques. ACT 112: Negative or not required by law. Electronically signed by: Roberto Berger M.D. 06/06/2020 12:08 PM
[2020-06-06 12:17] LABS: Alanine Aminotransferase 17 U/L (12-78); Albumin Level 3.4 gm/dl (3.4-5.0); Aspartate Aminotransferase 23 U/L (15-37); Blood Urea Nitrogen 24 mg/dl (7-18); Calcium 9.3 mg/dl (8.5-10.1); Carbon Dioxide 32 mmol/L (21-32); Chloride 109 mmol/L (98-107); Est GFR (African American) 55.9; Est GFR (Non-African American) 48.3; Glucose 109 mg/dl (70-99); Lipase 91 U/L (73-393); Potassium 4.1 mmol/L (3.5-5.1); Sodium 146 mmol/L (136-145)
[2020-06-06 12:23] LABS: Albumin Globulin Ratio 0.7 (0.9-2); Alkaline Phosphatase 120 U/L (45-117); Globulin 5.2 gm/dl (2.5-4.0); Total Protein 8.6 gm/dl (6.4-8.2); Troponin I 0.028 ng/ml (0-0.045)
[2020-06-06] MEDS ORDERED: OPTIRAY 320 125ml IV ONE (12:45)
--- NOTE | 2020-06-06 13:08 | CT Scan Report ---
CT OF THE HEAD WITHOUT CONTRAST CLINICAL HISTORY: fall COMPARISON STUDY: Head CT January 14, 2020. TECHNIQUE: Helical axial images of the head were obtained without IV contrast. Automated exposure con trol was utilized for the study. A dose lowering technique was utilized adhering to the principles o f ALARA. FINDINGS: No acute intracranial hemorrhage, midline shift or mass effect is present. Ventricular syst em is stable. Basal cisterns are patent. There are no extra-axial collections. White matter hypodensi ties are unchanged and suggest small vessel disease. There is no calvarial fracture. IMPRESSION: 1. No acute intracranial findings. 2. No calvarial fracture. ACT 112: Negative or not required by law. Electronically signed by: Cisco Magdlaeno M.D. 06/06/2020 1:06 PM
--- NOTE | 2020-06-06 13:15 | CT Scan Report ---
CT ANGIOGRAM OF THE CHEST CLINICAL HISTORY: Shortness of breath. Possible pulmonary embolism COMPARISON STUDY: Chest CT dated 03/26/2019 TECHNIQUE: Following the IV administration of 119 mL of [id number]-320, CT angiogram of the thorax was p erformed from the thoracic inlet to the lung bases utilizing the pulmonary embolus protocol. Images a re reviewed in the axial, sagittal, and coronal planes. IV contrast was administered without complica tion. MIP imaging was performed. A dose lowering technique was utilized adhering to the principles o f ALARA. CT DOSE: FINDINGS: There are multiple borderline enlarged mediastinal lymph nodes. There is mild ectasia of descending thoracic aorta which measures 39 mm. There were no pulmonary artery filling defects to indicate acute pulmonary embolism. There are tiny bilateral pleural effusions. There are calcified pleural plaques present. There is pulmonary emphysema. There is persistent right lower lobe atelectasis/consolidation. There is a large hiatal hernia containing the majority the stomach and a portion of colon. There are coronary artery calcifications There is respiratory motion artifact. IMPRESSION: 1. Motion degraded study 2. No evidence of acute pulmonary embolism 3. Pulmonary emphysema 4. Calcified pleural plaques 5. Trace pleural effusions 6. Right lower lobe atelectasis/consolidation similar to the prior study 7. Large hiatal hernia 8. Borderline enlarged mediastinal lymph nodes ACT 112: Negative or not required by law. Electronically signed by: Naeem Mckeon M.D. 06/06/2020 1:13 PM
--- NOTE | 2020-06-06 13:39 | CT Scan Report ---
CT OF THE CERVICAL SPINE WITHOUT CONTRAST CLINICAL HISTORY: fall COMPARISON STUDY: Cervical spine CT August 16, 2015. TECHNIQUE: Helical axial images of the cervical spine were obtained without IV contrast. Sagittal a nd coronal reconstructions were viewed. Automated exposure control was utilized for the study. A do se lowering technique was utilized adhering to the principles of ALARA. FINDINGS: Note is made of mild leftward curvature of the cervical spine. Vertebral body heights are m aintained. There is severe disc space narrowing at C3-C4 and to a lesser extent the 5-66. Note is mad e of nondisplaced fractures of the left lamina of C5 and the right pedicle of C5. These fractures are new since CT of August 16, 2015. However, the margins are sclerotic. Therefore, these fractures are l ikely not acute. No acute cervical spine fractures are noted. No prevertebral edema. Facet joints are intact. Old left second rib fracture is noted. The left mastoid air cells are partially opacified. IMPRESSION: Nondisplaced fractures of the left lamina and right pedicle of C5. These are new since CT of August 16, 2015 but have sclerotic margins and therefore these fractures are likely subacute to ch ronic. No acute cervical spine fracture identified. ACT 112: Negative or not required by law. Electronically signed by: Cisco Magdaleno M.D. 06/06/2020 1:38 PM
--- NOTE | 2020-06-06 16:51 | History & Physical Report ---
Date of Service June 06, 2020 Assessment & Plan (1) Fall: (2) Cervical spine fracture: -Admit to [facility] with telemetry -Patient presenting from [facility] for evaluation of fall and reported chest pain -In the ED, cervical spine CT shows nondisplaced fractures of the left lamina and right pedicle of C5, likely subacute or chronic -Discussed with Dr. Elias who reviewed the films, agrees that fracture is likely chronic in nature. Given the patient is asymptomatic, neck collar is no longer needed or further treatments -PT/OT, case management; expect DC back to [facility] tomorrow if chest pain work-up unrevealing (3) Chest pain: -Per staff at [facility], patient was reporting chest pain however patient currently denies -In the ED, initial troponin negative and EKG does not show acute ST changes -Noted to be hypertensive on arrival, this may have been contributing to patient's chest pain. Did not take morning medications. -Continue to cycle cardiac enzymes, if significant elevation consider further work-up -Titrate antihypertensives for BP control (4) H/O atrial flutter: -EKG shows sinus tach -Missed morning dose of metoprolol, resume home dose and make adjustments as needed for HR and BP control -Not anticoagulated secondary to advanced age and fall risk (5) Wound of left foot: -wound noted to plantar surface of left 3rd toe -no significant erythema or drainage -wound care nurse eval (6) Chronic diastolic heart failure: -Appears euvolemic, continue home diuretics (7) COPD (chronic obstructive pulmonary disease): -No signs of acute exacerbation, continue home inhalers and prednisone (8) DVT prophylaxis: -SQ heparin Admission and Anticipated Discharge Date Admission Date: June 06, 2020 History of Present Illness Chief Complaint: Fall, chest pain Primary Care Provider: [facility] 89-year-old male with PMH COPD, PAD, aortic stenosis, HTN, chronic diastolic CHF, CKD stage III, and other problems listed below who presents to the ED for evaluation after a fall. Patient admitted to [facility] 01/2020 for pneumonia. Patient discharged to [facility] for rehab and was recently transition to [facility] on 06/01/2020. History of this morning's events are somewhat limited from the patient however he reports that he was trying to get back into the bed when he missed the edge of the bed and fell to the ground. Patient denies striking his head or having loss of consciousness. No neck pain. Staff at [facility] reported that the patient appeared short of breath and he was clutching his chest reporting chest pain. Patient is unaware of this complaint. Patient reports he otherwise has been feeling well recently. Denies any other recent illnesses, fevers, chills. No abdominal pain, nausea, vomiting, diarrhea. Denies lightheadedness, dizziness, diaphoresis, syncopal events. No urinary symptoms. In the ED, head CT is negative for acute findings. Neck CT shows Nondisplaced fractures of the left lamina and right pedicle of C5, likely subacute or chronic in nature. Initial troponin is negative, EKG does not show any acute ST changes. Patient is hypertensive otherwise hemodynamically stable. He was given amlodipine 2.5 mg, metoprolol succinate 50 mg, IVF. Allergies Allergy/AdvReac Type Severity Reaction Status Date / Time morphine Allergy Unknown "out of it Verified 06/06/20 11:33 for days" [place] [employer] AdvReac Intermediate STOMACH Verified 06/06/20 11:33 ACHE FROM [employer] tomato AdvReac Intermediate HEADACHE Verified 06/06/20 11:33 FROM [facility]OMATO JUICE colchicine AdvReac Mild GI upset Verified 06/06/20 11:33 Home Medications Medication Instructions Recorded Confirmed Type allopurinol 300 mg tablet 300 mg PO QAM #90 tab 01/05/19 06/06/20 History atorvastatin 40 mg tablet 40 mg PO QAM #90 tab 01/05/19 06/06/20 History clopidogrel 75 mg tablet 75 mg PO QAM #30 tab 01/05/19 06/06/20 History Asmanex Twisthaler 2 inh INHALATION BID 03/24/19 06/06/20 History Combivent Respimat 1 puff INHALATION QID PRN 03/24/19 06/06/20 History Men's Daily Multivit-Mineral 1 tab PO DAILY 03/24/19 06/06/20 History cholecalciferol (vitamin D3) 2,000 unit PO PM 03/24/19 06/06/20 History [Vitamin D3] magnesium oxide 400 mg PO BID 03/24/19 06/06/20 History ondansetron HCl [Zofran] 4 mg PO Q8H PRN 03/24/19 06/06/20 History prednisone 5 mg PO QAM 03/24/19 06/06/20 History furosemide 20 mg tablet 40 mg PO DAILY tab 05/05/19 06/06/20 History ferrous sulfate 325 mg PO DAILY 09/17/19 06/06/20 History mirabegron 50 mg tablet,extended 50 mg PO DAILY #90 tab 12/07/19 06/06/20 Rx release 24 hr tamsulosin 0.4 mg capsule 0.4 mg PO QPM #90 cap 12/07/19 06/06/20 Rx levothyroxine 100 mcg PO QAM 01/11/20 06/06/20 History acetaminophen 325 mg PO QID PRN 06/06/20 06/06/20 History docusate sodium 100 mg PO BID 06/06/20 06/06/20 History finasteride 5 mg PO DAILY 06/06/20 06/06/20 History gabapentin 200 mg PO TID 06/06/20 06/06/20 History melatonin 4 mg PO HS 06/06/20 06/06/20 History metoprolol tartrate 25 mg PO BID 06/06/20 06/06/20 History mirtazapine 7.5 mg PO HS 06/06/20 06/06/20 History oxybutynin chloride 5 mg PO DAILY 06/06/20 06/06/20 History saliva substitute combo no.9 1 ea PO DAILY 06/06/20 06/06/20 History [Biotene Dry Mouth Oral Rinse] Past Med/Surg History Medical History (Updated 06/06/20 @ 17:42 by BIA Argueta) Amputation of toe LEFT/RT SECOND TOE Anemia Aortic stenosis Per echo 03/2019 -- SEVERE. FCO 0.61cm, mean gradient 38.2. Symptomatic, dyspnea (but also has COPD). Following with Dr. Huntley ([facility]) with serial echos q 6mo to evaluate for possible TAVR. Last office visit was 02/05/19, was to f/u in 6 months with new echo but not done due to covid19 pandemic. Did have telehealth visit 09/16 with regular resident care technician. Cardio aware of upcoming toe amputation. BPH (benign prostatic hypertrophy) Chronic diastolic heart failure Chronic venous insufficiency CKD (chronic kidney disease), stage III COPD (chronic obstructive pulmonary disease) Dyslipidemia Dysphagia Elevated PSA Esophageal dysmotility GERD (gastroesophageal reflux disease) Gout H/O atrial flutter "occurred postoperatively in 01/2014, converted to sinus rhythm with IV diltiazem" H/O diastolic dysfunction Grade II per 03/2019 echo Hiatal hernia History of duodenal ulcer History of heart valve insufficiency Mild TR History of kidney stones Hypertension Neuropathy Nocturnal hypoxemia On home oxygen therapy WEARS O2 AT 2L AT HS Osteoarthritis Osteoporosis Peripheral vascular disease s/p angioplasty of right posterior tibial artery Psoriatic arthritis Renal lesion Tobacco abuse Umbilical hernia Urinary incontinence Urinary retention Volvulus of stomach Surgical History Family history of reaction to anesthesia DAUGHTER-NAUSEA/VOMITTING History of angioplasty of peripheral vessel History of cardiac cath 1 YEAR AGO AT [facility] History of cataract surgery RT/LEFT History of colonoscopy History of esophagogastroduodenoscopy (EGD) History of lithotripsy History of lumbar fusion History of tooth extraction Status post endovenous radiofrequency ablation of saphenous vein Family History Mother Colorectal cancer Sister Breast cancer Lung cancer Father Parkinson disease Brother Nephrolithiasis Social History Smoking Status: Former smoker Tobacco Type: Cigarettes Second Hand Exposure: No; Do You Dip or Chew Tobacco: No; Tobacco Cessation Education Requested by Patient: No Hx Alcohol Use: No Hx Substance Use: No Preferred Language: Portuguese Communication Ability: Impaired Visual Impairment: Limited Hearing Ability: Normal Sales Incentive Analyst Required: No Beliefs That Will Affect Care: None marital status: / Current Living Situation: Family current occupational status: retired Other Information That Helps Us Care for You: No other: walks with walker Feels Safe at Home: Yes Safety Concerns: Feels Safe At This Time Assistive Devices: Walker Review of Systems Review of Systems: ROS per HPI, all other systems reviewed and negative. Physical Exam Constitutional: WD/WN, vitals as above Eyes: PERRL, conjunctivae normal, anicteric sclerae ENMT: external ear and nose normal, oropharynx normal Neck: [place] J collar in place Respiratory: normal respiratory effort, lungs clear to auscultation Cardiovascular: Rate/Rhythm: regular rhythm and + tachycardic Vessels: normal peripheral pulses Extremities: no edema Gastrointestinal (Abdomen): normal bowel sounds, soft, nontender, no hepatosplenomegaly Musculoskeletal: no cyanosis or clubbing, extremities motor strength 5/5 Skin: no rashes, warm and dry Small wound with scab noted to plantar surface of left third toe, no drainage noted Neurologic: PERRL, EOMI, accommodation nl, no face palsy, no dysarthria Psychiatric: A+Ox3, euthymic affect Insight: + limited insight Results & Data Results & Data ([facility]) Vital Signs (Past 12 Hours) Vital Signs Temp Pulse Resp BP BP Pulse Ox 06/06/20 16:30 36.7 C 22 180/107 H 93 06/06/20 14:30 112 H 27 H 06/06/20 14:00 109 H 37 H 156/118 H 06/06/20 13:31 104 H 25 H 06/06/20 13:30 105 H 28 H 187/113 H 06/06/20 13:01 102 H 23 06/06/20 13:00 106 H 26 H 180/109 H 06/06/20 12:31 106 H 27 H 186/117 H 06/06/20 12:30 105 H 21 06/06/20 12:11 103 H 22 181/112 H 06/06/20 12:00 102 H 27 H 175/119 H 06/06/20 11:46 100 H 27 H 06/06/20 11:30 95 H 32 H 178/123 H 06/06/20 10:48 37.1 C 98 H 16 176/102 H 93 Laboratory Results Short CBC 06/06/20 Range/Units 11:40 WBC 12.26 H (4.8-10.8) K/uL Hgb 13.3 L (14.0-18.0) g/dL Hct 42.4 (42-52) % Plt Count 208 (130-400) K/uL BMP 06/06/20 11:40 Sodium 146 H Potassium 4.1 Chloride 109 H Carbon Dioxide 32 BUN 24 H Creatinine 1.31 Glucose 109 H Calcium 9.3 Cardiac Enzymes 06/06/20 Range/Units 11:40 Troponin I 0.028 (0-0.045) ng/ml Liver Function 06/06/20 Range/Units 11:40 Total Bilirubin 1.0 (0.2-1) mg/dl AST 23 (15-37) U/L ALT 17 (12-78) U/L Alkaline Phosphatase 120 H (45-117) U/L Albumin 3.4 (3.4-5.0) gm/dl Diagnostic Findings CXR IMPRESSION: 1. Improved aeration within the lungs with decrease in size of the bilateral pleural effusions. 2. Large hiatus hernia, unchanged. 3. Calcified pleural plaques. CERVICAL SPINE CT IMPRESSION: Nondisplaced fractures of the left lamina and right pedicle of C5. These are new since CT of August 16, 2015 but have sclerotic margins and therefore these fractures are likely subacute to chronic. No acute cervical spine fracture identified. HEAD CT IMPRESSION: 1. No acute intracranial findings. 2. No calvarial fracture Code Status & VTE Plan Code Status Patient is a DNR as per my discussion with the patient and his daughter who is the bedside. VTE Prophylaxis Plan VTE Prophylaxis will be ordered: Yes Supervising Physician Co-Signing Physician Notes Ground-level fall at facility Hypertensive urgency on admission Chest pain -ACS rule out Acute versus chronic cervical fracture History of atrial flutter, chronic diastolic heart failure, COPD Placed under telemetry. Patient denies hitting his head or losing consciousness. He was awake and alert during the encounter oriented to place. Hemodynamically his pressures were above 190s. Patient denied any chest pain on admission. CT head negative for any acute findings. Cervical spine revealed nondisplaced fractures of the left lamina and right pedicle of C5. Patient had neck collar in place on admission. Discussed with orthospine. They believe it is likely chronic. Collar was removed. EKG was nonischemic. Cardiac enzymes are not concerning. Continue to trend cardiac enzymes. Work with PT/OT in the morning. I performed a history and physical examination of the patient on 06/06/20, including specifically History& Physical Exam. I have discussed the patient's management with the advanced practitioner. Please refer to the Diane Ridley note for the documented findings and plan of care. (1) Cervical spine fracture Cervical vertebra fracture level: C5 Encounter type: initial encounter Fracture alignment: nondisplaced Fracture morphology: unspecified fracture morphology Fracture type: closed Qualified Code(s): S12.401A - Unspecified nondisplaced fracture of fifth cervical vertebra, initial encounter for closed fracture (2) Chest pain Chest pain type: unspecified Qualified Code(s): R07.9 - Chest pain, unspecified (3) Fall Encounter type: initial encounter Qualified Code(s): W19.XXXA - Unspecified fall, initial encounter
[2020-06-06] MEDS: ACETAMINOPHEN 325 MG TAB PO PRN (17:31)
[2020-06-06] MEDS: METOPROLOL TARTRATE 25 MG TAB PO SCH ×2 (17:32→22:39)
[2020-06-06] MEDS: MAGNESIUM OXIDE 400 MG TAB PO SCH (20:23)
[2020-06-06] MEDS: MIRTAZAPINE SOLTAB 15 MG PO SCH (20:23)
[2020-06-06] MEDS: CHOLECALCIFEROL 1,000 UNITS 25 MCG TAB PO SCH (20:24)
[2020-06-06] MEDS: DOCUSATE SODIUM 100 MG CAP PO SCH (20:24)
[2020-06-06] MEDS: TAMSULOSIN HCL 0.4 MG CAP PO SCH (20:24)
[2020-06-06] MEDS: GABAPENTIN 100 MG CAP PO SCH (20:25)
[2020-06-07] MEDS ORDERED: METOPROLOL TARTRATE 25 MG TAB PO STA (01:08)
[2020-06-07] MEDS ORDERED: amLODIPine BESYLATE 5 MG TAB PO ONE (01:08)
--- NOTE | 2020-06-07 01:11 | Communication Note ---
Date of Service: June 07, 2020 Made aware by RN of uncontrolled blood pressure. SBP 150 - 190s since admission.. Patient given Amlodipine by ER provider on admission yesterday. Currently not listed as home medication at [facility] residence. History of amlodipine intake from recent confinement last year as per records. AP Hypertensive urgency Titrate home metoprolol and Amlodipine. Will relay to AM provider.
[2020-06-07 03:50] LABS: Appearance Urine Turbid (Clear); Bacteria Urine Automated 3+ (Negative); Bilirubin Urine Negative (Negative); Blood Urine 3+ (Negative); Color Urine Yellow; Glucose Urine UA Negative (Negative); Ketones Urine Trace (Negative); Leukocyte Esterase Urine 3+ (Negative); Nitrite Urine Negative (Negative); RBC Urine Automated >30 /hpf (0-4); Urobilinogen Urine Negative (Negative); WBC Urine Automated >30 /hpf (0-5); pH Urine 7.5 (4.5-7.5)
[2020-06-07 03:59] LABS: Protein Urine 2+ (Negative)
[2020-06-07 06:16] LABS: Hematocrit (blood only) 40.3 % (42-52); Hemoglobin 12.6 g/dL (14.0-18.0); Mean Corpuscular Hemoglobin 26.8 pg (25-34); Mean Corpuscular Hgb Conc 31.3 g/dL (32-36); Mean Corpuscular Volume 85.7 fL (80-100); Mean Platelet Volume 9.9 fL (7.4-10.4); Platelet Count 209 K/uL (130-400); RDW Coefficient of Variation 16.3 % (11.5-14.5); White Blood Count 13.19 K/uL (4.8-10.8)
[2020-06-07] MEDS: LEVOTHYROXINE SODIUM 100 MCG TABLET PO SCH (06:23)
[2020-06-07 06:28] LABS: Partial Thromboplastin Ratio 1.1; Partial Thromboplastin Time 29.7 Seconds (21.0-31.0)
--- NOTE | 2020-06-07 06:29 | Electrocardiogram Report ---
Test Reason : Blood Pressure : / mmHG Vent. Rate : 101 BPM Atrial Rate : 101 BPM P-R Int : 202 ms QRS Dur : 112 ms QT Int : 368 ms P-R-T Axes : 115 -44 061 degrees QTc Int : 477 ms Sinus tachycardia with Premature atrial complexes Left axis deviation Minimal voltage criteria for LVH, may be normal variant Abnormal ECG When compared with ECG of 17-JAN-2020 07:07, Sinus rhythm has replaced Atrial fibrillation T wave amplitude has increased in Anterolateral leads Confirmed by Rasta Lea ([id number]) on 06/07/2020 6:28:43 AM Referred By: REFERRED SELF Confirmed By:Rasta Lea
[2020-06-07 06:41] LABS: BUN Creatinine Ratio 19.1 (10-20); Calcium 8.8 mg/dl (8.5-10.1); Creatinine Clr Calc Pharmacy 45.8 ml/min; Est GFR (African American) 65.5; Est GFR (Non-African American) 56.5; Potassium 3.7 mmol/L (3.5-5.1)
[2020-06-07 06:46] LABS: Troponin I 0.045 ng/ml (0-0.045)
[2020-06-07] MEDS: FINASTERIDE 5 MG TAB PO SCH (08:05)
[2020-06-07] MEDS: ATORVASTATIN 40 MG TAB PO SCH (08:05)
[2020-06-07] MEDS: MIRABEGRON ER 25 MG TAB PO SCH (08:05)
[2020-06-07] MEDS: GABAPENTIN 100 MG CAP PO SCH ×3 (08:05→21:00)
[2020-06-07] MEDS: FLUTICASONE FUROATE 100MCG 14 PUFFS/INHALER INH SCH (08:05)
[2020-06-07] MEDS: predniSONE 5 MG TAB PO SCH (08:05)
[2020-06-07] MEDS: OXYBUTYNIN CHLORIDE 5 MG TAB PO SCH (08:05)
[2020-06-07] MEDS: CLOPIDOGREL BISULFATE 75 MG TAB PO SCH (08:05)
[2020-06-07] MEDS: FERROUS SULFATE 325 MG TAB PO SCH (08:05)
[2020-06-07] MEDS: allopurinoL 300 MG TAB PO SCH (08:05)
[2020-06-07] MEDS: MAGNESIUM OXIDE 400 MG TAB PO SCH ×2 (08:05→21:00)
[2020-06-07] MEDS: DOCUSATE SODIUM 100 MG CAP PO SCH ×2 (08:05→21:01)
[2020-06-07] MEDS: METOPROLOL TARTRATE 50 MG TAB PO SCH ×2 (08:06→21:01)
[2020-06-07] MEDS ORDERED: FUROSEMIDE 40 MG TAB PO SCH (09:00)
--- NOTE | 2020-06-07 13:15 | Hospitalist Progress Note ---
Date of Service June 07, 2020 Assessment & Plan (1) Fall: (2) Cervical spine fracture: CT head was negative on admission. Cervical spine was concerning for nondisplaced fracture of the right pedicle of C5. Did speak with orthospine and they believe it is chronic. Patient denies any neck pain. C-collar was removed. Continue to work with PT/OT. Likely back to the facility tomorrow. (3) Chest pain: Hypertensive urgency on admission She presented with chest pain. He was also complaining chest pain again this morning. He has been nonischemic. EKG was not concerning. His pain sounds more like musculoskeletal in nature. Reports the pain is worse with movement and deep breathing. Continue with CRATING AND MOVING ESTIMATOR furosemide 40 mg daily and Lopressor 50 mg twice daily. Patient was still on amlodipine 5 mg daily overnight, will increase to 10 mg daily. (4) H/O atrial flutter: Rate is controlled. Continue with CRATING AND MOVING ESTIMATOR metoprolol. Not on any anticoagulation given risk factors. (5) Wound of left foot: Absence of any erythema or significant drainage. Wound care has been consulted. Patient remains afebrile. White count is within normal limits. (6) Chronic diastolic heart failure: -Appears euvolemic, continue home diuretics (7) COPD (chronic obstructive pulmonary disease): -No signs of acute exacerbation, continue home inhalers and prednisone (8) DVT prophylaxis: -SQ heparin Admission and Anticipated Discharge Date Admission Date: June 06, 2020 Subjective Patient was much more awake and alert this morning. He was oriented to place and was able to tell me his name. He was not oriented to time or person. Stated his only complaint is left-sided chest pain with movement and deep breathing denies any shortness of breath is any chest pain radiation to the left upper extremity or to the neck. Denies any abdominal pain denies any diarrhea. Denies any cough. Rest of the review of system is negative. Review of Systems Review of Systems: All systems reviewed & are unremarkable except as noted in HPI & below Physical Exam Physical Exam: General: Awake and alert, oriented to place HENT: NCAT, MMM, EOMI Eyes: PERRLA Neck: Supple, normal range of motion CVS: normal rate and rhythm Resp: b/l rhonchi appreciated Abdomen: Soft, nondistended nontender Extremities: Absence of any edema, chronic wound of the left third toe Neuro: face symmetric, no gross focal deficits identified Skin: warm and dry, no rashes/lesions/errythema MSK: normal ROM, no joint swelling/erythema Results & Data Results & Data ([facility]) Vital Signs (Past 12 Hours) Vital Signs Temp Pulse Pulse Resp BP BP Pulse Ox 06/07/20 11:13 37.5 C 70 18 146/88 H 90 06/07/20 07:40 36.4 C L 78 18 159/99 H 90 06/07/20 07:12 85 06/07/20 05:55 158/92 H 06/07/20 03:52 36.5 C 77 18 192/101 H 180/99 H 95 (1) Cervical spine fracture Cervical vertebra fracture level: C5 Encounter type: initial encounter Fracture alignment: nondisplaced Fracture morphology: unspecified fracture morphology Fracture type: closed Qualified Code(s): S12.401A - Unspecified nondisplaced fracture of fifth cervical vertebra, initial encounter for closed fracture (2) Chest pain Chest pain type: unspecified Qualified Code(s): R07.9 - Chest pain, unspecified (3) Fall Encounter type: initial encounter Qualified Code(s): W19.XXXA - Unspecified fall, initial encounter
[2020-06-07] MEDS: TAMSULOSIN HCL 0.4 MG CAP PO SCH (20:59)
[2020-06-07] MEDS: CHOLECALCIFEROL 1,000 UNITS 25 MCG TAB PO SCH (20:59)
[2020-06-07] MEDS: MIRTAZAPINE SOLTAB 15 MG PO SCH (21:00)
[2020-06-08] MEDS ORDERED: POTASSIUM CHLORIDE CRTAB 20 MEQ TABCR PO STA (05:51)
--- NOTE | 2020-06-08 06:03 | Electrocardiogram Report ---
Test Reason : Blood Pressure : / mmHG Vent. Rate : 080 BPM Atrial Rate : 080 BPM P-R Int : 254 ms QRS Dur : 110 ms QT Int : 406 ms P-R-T Axes : 085 -50 049 degrees QTc Int : 468 ms Sinus rhythm with 1st degree A-V block Left anterior fascicular block Left ventricular hypertrophy Cannot rule out Septal infarct (cited on or before 07-JUN-2020) Abnormal ECG When compared with ECG of 06-JUN-2020 11:22, Premature atrial complexes are no longer Present IA interval has increased Questionable change in initial forces of Septal leads Confirmed by Rasta Lea ([id number]) on 06/08/2020 6:03:01 AM Referred By: REFERRED SELF Confirmed By:Rasta Lea
[2020-06-08] MEDS: LEVOTHYROXINE SODIUM 100 MCG TABLET PO SCH (06:24)
[2020-06-08 07:01] LABS: Basophils # (auto) 0.02 K/uL (0-0.2); Basophils % (auto) 0.2 %; Eosinophils # (auto) 0.25 K/uL (0-0.5); Eosinophils % (auto) 2.7 %; Hematocrit (blood only) 40.8 % (42-52); Hemoglobin 12.7 g/dL (14.0-18.0); Immature Granulocytes # (auto) 0.02 K/uL (0.00-0.02); Immature Granulocytes % (auto) 0.2 %; Lymphocytes # (auto) 1.44 K/uL (1.2-3.4); Lymphocytes % (auto) 15.7 %; Mean Corpuscular Hemoglobin 26.8 pg (25-34); Mean Corpuscular Hgb Conc 31.1 g/dL (32-36); Mean Corpuscular Volume 86.1 fL (80-100); Mean Platelet Volume 9.8 fL (7.4-10.4); Monocytes # (auto) 0.61 K/uL (0.11-0.59); Monocytes % (auto) 6.7 %; Neutrophils # (auto) 6.82 K/uL (1.4-6.5); Neutrophils % (auto) 74.5 %; Platelet Count 206 K/uL (130-400); RDW Coefficient of Variation 16.3 % (11.5-14.5); RDW Standard Deviation 52.3 fL (36.4-46.3); Red Blood Count 4.74 M/uL (4.7-6.1); White Blood Count 9.16 K/uL (4.8-10.8)
[2020-06-08 07:11] LABS: Partial Thromboplastin Ratio 1.1; Partial Thromboplastin Time 27.9 Seconds (21.0-31.0)
[2020-06-08 07:20] LABS: BUN Creatinine Ratio 20.2 (10-20); Creatinine Clr Calc Pharmacy 36.6 ml/min; Est GFR (African American) 49.9; Magnesium 2.5 mg/dl (1.8-2.4); Potassium 3.6 mmol/L (3.5-5.1)
--- NOTE | 2020-06-08 07:48 | Communication Note ---
Date of Service: June 08, 2020 Made aware by RN around 5:45 AM of A. fib on the monitor. Cardiac rate within normal limits, BP 119/81 as per RN. Patient without complaints as per RN EKG as per my interpretation : rate 90, A. fib, LAD, LAFB, LVH, no ischemia Serum crea 1.44 AP New onset A. fib hx atrial flutter as per records not on anticoagulation ? Secondary to hypovolemia, ARF Facilitate beta-lilly for rate control Baseline UA Monitor creatinine response to IVF Hold Lasix until creatinine back to baseline. Will relay to AM provider.
[2020-06-08] MEDS: METOPROLOL TARTRATE 50 MG TAB PO SCH ×2 (08:02→20:19)
[2020-06-08] MEDS: allopurinoL 300 MG TAB PO SCH (08:02)
[2020-06-08] MEDS: OXYBUTYNIN CHLORIDE 5 MG TAB PO SCH (08:03)
[2020-06-08] MEDS: FLUTICASONE FUROATE 100MCG 14 PUFFS/INHALER INH SCH (08:03)
[2020-06-08] MEDS: DOCUSATE SODIUM 100 MG CAP PO SCH ×2 (08:03→20:19)
[2020-06-08] MEDS: GABAPENTIN 100 MG CAP PO SCH (08:03)
[2020-06-08] MEDS: MAGNESIUM OXIDE 400 MG TAB PO SCH ×2 (08:04→20:19)
[2020-06-08] MEDS: ACETAMINOPHEN 325 MG TAB PO PRN (08:04)
[2020-06-08] MEDS: CLOPIDOGREL BISULFATE 75 MG TAB PO SCH (08:04)
[2020-06-08] MEDS: FINASTERIDE 5 MG TAB PO SCH (08:04)
[2020-06-08] MEDS: amLODIPine BESYLATE 5 MG TAB PO SCH (08:05)
[2020-06-08] MEDS: predniSONE 5 MG TAB PO SCH (08:05)
[2020-06-08] MEDS: FERROUS SULFATE 325 MG TAB PO SCH (08:05)
[2020-06-08] MEDS: ATORVASTATIN 40 MG TAB PO SCH (08:05)
[2020-06-08] MEDS: MIRABEGRON ER 25 MG TAB PO SCH (08:06)
[2020-06-08] MEDS ORDERED: POTASSIUM CHLORIDE 40 MEQ in SODIUM CHLORIDE 0.45 % 1,000 ML IV ONE (08:15)
[2020-06-08] MEDS ORDERED: amLODIPine BESYLATE 5 MG TAB PO SCH (09:00)
[2020-06-08 10:26] LABS: Appearance Urine Turbid (Clear); Bilirubin Urine Negative (Negative); Blood Urine 3+ (Negative); Color Urine Dark Yellow; Epithelial Cell Urine Auto >30 /lpf (0-5); Glucose Urine UA Negative (Negative); Ketones Urine Negative (Negative); Leukocyte Esterase Urine 3+ (Negative); Nitrite Urine Negative (Negative); Protein Urine 2+ (Negative); Specific Gravity Urine 1.021 (1.000-1.030); Urobilinogen Urine Negative (Negative); WBC Urine Automated >30 /hpf (0-5)
[2020-06-08 11:07] LABS: Bacteria Urine Automated 1+ (Negative)
[2020-06-08] MEDS: GABAPENTIN 300 MG CAP PO SCH ×2 (13:32→20:20)
--- NOTE | 2020-06-08 16:21 | Hospitalist Progress Note ---
Date of Service June 08, 2020 Assessment & Plan (1) Fall: (2) Cervical spine fracture: CT head was negative on admission. Cervical spine was concerning for nondisplaced fracture of the right pedicle of C5. Did speak with orthospine and they believe it is chronic. Patient denies any neck pain. C-collar was removed. Continue to work with PT/OT. Denies any neck pain today Complains of nonspecific pain involving the left foot and also chest wall Gabapentin doses have been increased to 300 mg 3 times daily He claims to be taking 600 mg 3 times daily as an outpatient Creatinine is slightly high at 1.44 He was advised to drink more fluid We will monitor PRP (3) Chest pain: Hypertensive urgency on admission-now hypotensive He presented with chest pain. He was also complaining chest pain again this morning. He has been nonischemic. EKG was not concerning. His pain sounds more like musculoskeletal in nature. Reports the pain is worse with movement and deep breathing. Continue with SHIRT MARKER furosemide 40 mg daily and Lopressor 50 mg twice daily. Patient was still on amlodipine 5 mg daily overnight, Will continue with amlodipine 5 mg and hold for today (4) H/O atrial flutter: Rate is controlled. Continue with SHIRT MARKER metoprolol. Not on any anticoagulation given risk factors. Went back to atrial fibrillation since last night with controlled rate Will not restart any anticoagulation (5) Wound of left foot: Absence of any erythema or significant drainage. Wound care has been consulted. Patient remains afebrile. White count is within normal limits. (6) Chronic diastolic heart failure: -Appears euvolemic, continue home diuretics (7) COPD (chronic obstructive pulmonary disease): -No signs of acute exacerbation, continue home inhalers and prednisone (8) DVT prophylaxis: -SQ heparin We will continue PT and OT Likely discharge in a day or 2 Admission and Anticipated Discharge Date Admission Date: June 08, 2020 Subjective 06/08/2020 The patient was seen and examined in medical telemetry unit He complains to have nonspecific pain involving the left heel and also sometimes the chest Not have any palpitation and/or shortness of breath associated with it Denies any fever and/or chills, any nausea and/or vomiting Review of Systems Review of Systems: All systems reviewed and are unremarkable except as noted below Respiratory: + cough; no dyspnea Musculoskeletal: Pain in the left heel Physical Exam Physical Exam: Lying in bed comfortably Constitutional: average body habitus; not ill appearing Eyes: PERRL, conjunctivae normal, anicteric sclerae ENMT: external ear and nose normal, oropharynx normal Neck: trachea midline, no thyromegaly Respiratory: no respiratory distress Auscultation: lungs clear to auscultation bilaterally Cardiovascular: Rate/Rhythm: + irregularly irregular Heart Sounds: no murmur Extremities: no edema Gastrointestinal (Abdomen): Inspection/Auscultation: normal bowel sounds; abdomen not distended Percussion/Palpation: abdomen soft; abdomen nontender Musculoskeletal: No acute arthritis in any joint Neurologic: Alert, awake and oriented x3. Generally weak but no focal neuro deficit Psychiatric: A+Ox3, euthymic affect Lymphatic: no cervical or axillary lymphadenopathy Results & Data Results & Data ([facility]) Vital Signs (Past 12 Hours) Vital Signs Temp Pulse Pulse Resp BP Pulse Ox 06/08/20 15:24 36.3 C L 79 16 96/60 L 93 06/08/20 11:45 36.9 C 79 20 103/60 93 06/08/20 07:30 99 H 06/08/20 07:23 36.4 C L 102 H 16 140/80 92 Laboratory Results Short CBC 06/08/20 Range/Units 06:23 WBC 9.16 (4.8-10.8) K/uL Hgb 12.7 L (14.0-18.0) g/dL Hct 40.8 L (42-52) % Plt Count 206 (130-400) K/uL BMP 06/08/20 06:23 Sodium 142 Potassium 3.6 Chloride 107 Carbon Dioxide 28 BUN 29 H Creatinine 1.44 H Glucose 105 H Calcium 9.0 Urine 06/08/20 Range/Units 09:52 Urine Color Dark Yellow Urine Appearance Turbid A (Clear) Urine pH 5.0 (4.5-7.5) Ur Specific [place] 1.021 (1.000-1.030) Urine Protein 2+ H (Negative) Urine Glucose (UA) Negative (Negative) Medications Administered Current Inpatient Medications Acetaminophen (Acetaminophen 325 Mg Tab) 650 mg PO Q4H PRN PRN Reason: Pain or Fever Stop: 07/06/20 16:42 Last Admin: 06/08/20 08:04 Dose: 650 mg Documented by: Allopurinol (Allopurinol 300 Mg Tab) 300 mg PO QAM [facility] Stop: 07/07/20 08:59 Last Admin: 06/08/20 08:02 Dose: 300 mg Documented by: Amlodipine Besylate (Amlodipine Besylate 5 Mg Tab) 10 mg PO QAM [facility] Stop: 07/08/20 08:59 Last Admin: 06/08/20 08:05 Dose: 10 mg Documented by: Atorvastatin Calcium (Atorvastatin 40 Mg Tab) 40 mg PO QAM [facility] Stop: 07/07/20 08:59 Last Admin: 06/08/20 08:05 Dose: 40 mg Documented by: Clopidogrel Bisulfate (Clopidogrel Bisulfate 75 Mg Tab) 75 mg PO QAM [facility] Stop: 07/07/20 08:59 Last Admin: 06/08/20 08:04 Dose: 75 mg Documented by: Docusate Sodium (Docusate Sodium 100 Mg Cap) 100 mg PO BID [facility] Stop: 07/06/20 20:59 Last Admin: 06/08/20 08:03 Dose: 100 mg Documented by: Ferrous Sulfate (Ferrous Sulfate 325 Mg Tab) 325 mg PO DAILY [facility] Stop: 07/07/20 08:59 Last Admin: 06/08/20 08:05 Dose: 325 mg Documented by: Finasteride (Finasteride 5 Mg Tab) 5 mg PO DAILY [facility] Stop: 07/07/20 08:59 Last Admin: 06/08/20 08:04 Dose: 5 mg Documented by: Fluticasone Furoate (Fluticasone Furoate 100mcg 14 Puffs/Inhaler) 1 puffs INH DAILY [facility]; Protocol Stop: 07/07/20 08:59 Last Admin: 06/08/20 08:03 Dose: 1 puffs Documented by: Furosemide (Furosemide 40 Mg Tab) 40 mg PO DAILY [facility] Stop: 07/07/20 08:59 Last Admin: 06/07/20 08:05 Dose: 40 mg Documented by: Gabapentin (Gabapentin 300 Mg Cap) 300 mg PO TID [facility] Stop: 07/08/20 13:59 Last Admin: 06/08/20 13:32 Dose: 300 mg Documented by: Potassium Chloride 40 meq/ (Sodium Chloride) 1,020 mls @ 50 mls/hr IV .[id number] ONE Stop: 06/09/20 04:38 Last Admin: 06/08/20 08:41 Dose: 50 mls/hr Documented by: Levothyroxine Sodium (Levothyroxine Sodium 100 Mcg Tablet) 100 mcg PO DAILYBB [facility] Stop: 07/07/20 06:29 Last Admin: 06/08/20 06:24 Dose: 100 mcg Documented by: Magnesium Oxide (Magnesium Oxide 400 Mg Tab) 400 mg PO BID [facility] Stop: 07/06/20 20:59 Last Admin: 06/08/20 08:04 Dose: 400 mg Documented by: Metoprolol Tartrate (Metoprolol Tartrate 50 Mg Tab) 50 mg PO BID [facility] Stop: 07/08/20 07:59 Last Admin: 06/08/20 08:02 Dose: 50 mg Documented by: Mirabegron (Mirabegron Er 25 Mg Tab) 50 mg PO DAILY [facility] Stop: 07/07/20 08:59 Last Admin: 06/08/20 08:06 Dose: 50 mg Documented by: Mirtazapine (Mirtazapine Soltab 15 Mg) 7.5 mg PO HS [facility] Stop: 07/06/20 20:59 Last Admin: 06/07/20 21:00 Dose: 7.5 mg Documented by: Oxybutynin Chloride (Oxybutynin Chloride 5 Mg Tab) 5 mg PO DAILY [facility] Stop: 07/07/20 08:59 Last Admin: 06/08/20 08:03 Dose: 5 mg Documented by: Prednisone (Prednisone 5 Mg Tab) 5 mg PO QAM [facility] Stop: 07/07/20 08:59 Last Admin: 06/08/20 08:05 Dose: 5 mg Documented by: Tamsulosin HCl (Tamsulosin Hcl 0.4 Mg Cap) 0.4 mg PO QPM [facility] Stop: 07/06/20 20:59 Last Admin: 06/07/20 20:59 Dose: 0.4 mg Documented by: Vitamin D (Cholecalciferol 1,000 Units 25 Mcg Tab) 2,000 units PO PM [facility] Stop: 07/06/20 20:59 Last Admin: 06/07/20 20:59 Dose: 2,000 units Documented by: (1) Fall Encounter type: initial encounter Qualified Code(s): W19.XXXA - Unspecified fall, initial encounter (2) Cervical spine fracture Cervical vertebra fracture level: C5 Encounter type: initial encounter Fracture alignment: nondisplaced Fracture morphology: unspecified fracture morphology Fracture type: closed Qualified Code(s): S12.401A - Unspecified nondisplaced fracture of fifth cervical vertebra, initial encounter for closed fracture (3) Chest pain Chest pain type: unspecified Qualified Code(s): R07.9 - Chest pain, unspecified
[2020-06-08] MEDS ORDERED: ALBUTEROL 0.083% NEBU SOLN 3 ML VIAL NEB PRN (18:31)
[2020-06-08] MEDS ORDERED: ACETYLCYSTEINE 10% INHAL SOLN 4 ML **DISPENSED BY RESP. INH PRN (18:31)
[2020-06-08] MEDS ORDERED: ACETYLCYSTEINE 20% INHAL SOLN 4ML ***DISPENSED BY RESP. INH PRN (19:09)
[2020-06-08] MEDS: MIRTAZAPINE SOLTAB 15 MG PO SCH (20:19)
[2020-06-08] MEDS: TAMSULOSIN HCL 0.4 MG CAP PO SCH (20:19)
[2020-06-08] MEDS: CHOLECALCIFEROL 1,000 UNITS 25 MCG TAB PO SCH (20:19)
[2020-06-08] MEDS: guaiFENesin 600 MG TABCR PO SCH (20:59)
[2020-06-09] MEDS: LEVOTHYROXINE SODIUM 100 MCG TABLET PO SCH (04:24)
--- NOTE | 2020-06-09 06:00 | Electrocardiogram Report ---
Test Reason : Blood Pressure : / mmHG Vent. Rate : 092 BPM Atrial Rate : 340 BPM P-R Int : 000 ms QRS Dur : 110 ms QT Int : 394 ms P-R-T Axes : 000 -43 041 degrees QTc Int : 487 ms Atrial fibrillation Left axis deviation Moderate voltage criteria for LVH, may be normal variant Cannot rule out Septal infarct (cited on or before 07-JUN-2020) Nonspecific ST abnormality Abnormal ECG When compared with ECG of 07-JUN-2020 06:54, Atrial fibrillation has replaced Sinus rhythm Questionable change in initial forces of Septal leads Confirmed by Rasta Lea ([id number]) on 06/09/2020 5:59:59 AM Referred By: REFERRED SELF Confirmed By:Rasta Lea
--- NOTE | 2020-06-09 06:05 | Electrocardiogram Report ---
Test Reason : Blood Pressure : / mmHG Vent. Rate : 120 BPM Atrial Rate : 271 BPM P-R Int : 000 ms QRS Dur : 106 ms QT Int : 344 ms P-R-T Axes : 000 -63 081 degrees QTc Int : 486 ms Atrial flutter / Atrial fibrillation with RVR Left anterior fascicular block Left ventricular hypertrophy Cannot rule out Septal infarct (cited on or before 07-JUN-2020) Abnormal ECG When compared with ECG of 08-JUN-2020 05:40, T wave amplitude has increased in Inferior leads Confirmed by Rasta Lea ([id number]) on 06/09/2020 6:04:50 AM Referred By: REFERRED SELF Confirmed By:Rasta Lea
[2020-06-09 07:19] LABS: Basophils # (auto) 0.01 K/uL (0-0.2); Basophils % (auto) 0.1 %; Eosinophils # (auto) 0.25 K/uL (0-0.5); Eosinophils % (auto) 2.6 %; Hematocrit (blood only) 39.7 % (42-52); Hemoglobin 12.4 g/dL (14.0-18.0); Immature Granulocytes # (auto) 0.03 K/uL (0.00-0.02); Immature Granulocytes % (auto) 0.3 %; Lymphocytes # (auto) 1.64 K/uL (1.2-3.4); Lymphocytes % (auto) 16.9 %; Mean Corpuscular Hemoglobin 26.6 pg (25-34); Mean Corpuscular Hgb Conc 31.2 g/dL (32-36); Mean Corpuscular Volume 85.2 fL (80-100); Mean Platelet Volume 9.5 fL (7.4-10.4); Monocytes # (auto) 0.81 K/uL (0.11-0.59); Monocytes % (auto) 8.3 %; Neutrophils # (auto) 6.97 K/uL (1.4-6.5); Neutrophils % (auto) 71.8 %; Platelet Count 182 K/uL (130-400); RDW Coefficient of Variation 16.2 % (11.5-14.5); RDW Standard Deviation 50.4 fL (36.4-46.3); Red Blood Count 4.66 M/uL (4.7-6.1); White Blood Count 9.71 K/uL (4.8-10.8)
[2020-06-09 07:53] LABS: BUN Creatinine Ratio 24.7 (10-20); Calcium 8.9 mg/dl (8.5-10.1); Creatinine Clr Calc Pharmacy 37.1 ml/min; Est GFR (African American) 50.7; Est GFR (Non-African American) 43.8; Magnesium 2.2 mg/dl (1.8-2.4); Phosphorus 2.9 mg/dl (2.5-4.9); Potassium 4.3 mmol/L (3.5-5.1)
[2020-06-09] MEDS: MIRABEGRON ER 25 MG TAB PO SCH (09:42)
[2020-06-09] MEDS: FLUTICASONE FUROATE 100MCG 14 PUFFS/INHALER INH SCH (09:42)
[2020-06-09] MEDS: DOCUSATE SODIUM 100 MG CAP PO SCH ×2 (09:42→20:02)
[2020-06-09] MEDS: FERROUS SULFATE 325 MG TAB PO SCH (09:43)
[2020-06-09] MEDS: amLODIPine BESYLATE 5 MG TAB PO SCH (09:43)
[2020-06-09] MEDS: MAGNESIUM OXIDE 400 MG TAB PO SCH ×2 (09:43→20:05)
[2020-06-09] MEDS: allopurinoL 300 MG TAB PO SCH (09:43)
[2020-06-09] MEDS: GABAPENTIN 300 MG CAP PO SCH ×3 (09:43→20:05)
[2020-06-09] MEDS: METOPROLOL TARTRATE 50 MG TAB PO SCH ×2 (09:43→20:04)
[2020-06-09] MEDS: ATORVASTATIN 40 MG TAB PO SCH (09:44)
[2020-06-09] MEDS: predniSONE 5 MG TAB PO SCH (09:44)
[2020-06-09] MEDS: guaiFENesin 600 MG TABCR PO SCH ×2 (09:44→20:05)
[2020-06-09] MEDS: OXYBUTYNIN CHLORIDE 5 MG TAB PO SCH (09:44)
[2020-06-09] MEDS: CLOPIDOGREL BISULFATE 75 MG TAB PO SCH (09:44)
[2020-06-09] MEDS: FINASTERIDE 5 MG TAB PO SCH (09:44)
[2020-06-09] MEDS: LIDOCAINE 5% 1 PATCH TD SCH (15:08)
--- NOTE | 2020-06-09 15:38 | Hospitalist Progress Note ---
Date of Service June 09, 2020 Assessment & Plan (1) Fall: (2) Cervical spine fracture: CT head was negative on admission. Cervical spine was concerning for nondisplaced fracture of the right pedicle of C5. Did speak with orthospine and they believe it is chronic. Patient denies any neck pain. C-collar was removed. Continue to work with PT/OT. Denies any neck pain today Musculoskeletal chest pain Complains of nonspecific pain involving the left foot and also chest wall Gabapentin doses have been increased to 300 mg 3 times daily He claims to be taking 600 mg 3 times daily as an outpatient Chest wall pain seems to be muscular with moderate to severe tenderness over pectoralis major muscle We will try lidocaine patch Creatinine is slightly high at 1.44 He was advised to drink more fluid We will monitor PRP-remains a stable creatinine at 1.42 (3) Chest pain: Hypertensive urgency on admission-now hypotensive Chest pain seems to be musculoskeletal-moderate to severe tenderness over pectoralis muscle on left side He presented with chest pain. He was also complaining chest pain again this morning. He has been nonischemic. EKG was not concerning. His pain sounds more like musculoskeletal in nature. Reports the pain is worse with movement and deep breathing. 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 Patient was still on amlodipine 5 mg daily overnight, We will continue with amlodipine 10 mg daily (4) H/O atrial flutter: Rate is controlled. 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 Not on any anticoagulation given risk factors. 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 Wound care has been consulted. Patient remains afebrile. White count is within normal limits. (6) Chronic diastolic heart failure: -Appears euvolemic, continue home diuretics (7) COPD (chronic obstructive pulmonary disease): -No signs of acute exacerbation, continue home inhalers and prednisone -Was given nebulized bronchodilator yesterday for improved cough (8) DVT prophylaxis: -SQ heparin We will continue PT and OT Likely discharge tomorrow Admission and Anticipated Discharge Date Admission Date: June 08, 2020 Subjective 06/08/2020 The patient was seen and examined in medical telemetry unit He complains to have nonspecific pain involving the left heel and also sometimes the chest Not have any palpitation and/or shortness of breath associated with it Denies any fever and/or chills, any nausea and/or vomiting 06/09/2020 The patient was seen and examined in medical telemetry unit He has been feeling a lot better but he still complains of pain in the left precordial area The pain is worse with deep breathing and locally very tender over anterolateral chest wall Denies any other symptoms Review of Systems Review of Systems: All systems reviewed and are unremarkable except as noted below Respiratory: + cough; no dyspnea Musculoskeletal: Pain in the left heel Physical Exam Physical Exam: Lying in bed comfortably Constitutional: average body habitus; not ill appearing Eyes: PERRL, conjunctivae normal, anicteric sclerae ENMT: external ear and nose normal, oropharynx normal Neck: trachea midline, no thyromegaly Respiratory: no respiratory distress Auscultation: lungs clear to auscultation bilaterally Cardiovascular: Rate/Rhythm: + irregularly irregular Heart Sounds: no murmur Extremities: no edema Chest (Breasts): Additional Comments: Tenderness over anterolateral chest wall the left side Gastrointestinal (Abdomen): Inspection/Auscultation: normal bowel sounds; abdomen not distended Percussion/Palpation: abdomen soft; abdomen nontender Musculoskeletal: No acute arthritis in any joint Neurologic: Alert, awake and oriented x3. Generally weak Psychiatric: A+Ox3, euthymic affect Lymphatic: no cervical or axillary lymphadenopathy Results & Data Results & Data ([place]) Vital Signs (Past 12 Hours) Vital Signs Temp Pulse Pulse Resp BP Pulse Ox 06/09/20 15:21 81 06/09/20 15:19 37 C 75 19 113/74 92 06/09/20 11:27 37.2 C 76 18 124/80 94 06/09/20 07:40 36.8 C 90 18 151/91 H 90 06/09/20 07:14 81 06/09/20 04:03 76 06/09/20 03:59 36.5 C 72 17 146/86 H 93 Laboratory Results Short CBC 06/09/20 Range/Units 06:55 WBC 9.71 (4.8-10.8) K/uL Hgb 12.4 L (14.0-18.0) g/dL Hct 39.7 L (42-52) % Plt Count 182 (130-400) K/uL BMP 06/09/20 06:55 Sodium 139 Potassium 4.3 D Chloride 107 Carbon Dioxide 27 BUN 35 H Creatinine 1.42 H Glucose 104 H Calcium 8.9 Medications Administered Current Inpatient Medications Acetaminophen (Acetaminophen 325 Mg Tab) 650 mg PO Q4H PRN PRN Reason: Pain or Fever Stop: 07/06/20 16:42 Last Admin: 06/08/20 08:04 Dose: 650 mg Documented by: Acetylcysteine (Acetylcysteine 20% Inhal Soln 4ml Dispensed By Resp.) 5 ml INH Q6H PRN PRN Reason: Cough Stop: 07/08/20 19:08 Albuterol (Albuterol 0.083% Nebu Soln 3 Ml Vial) 2.5 mg NEB Q6R PRN PRN Reason: Shortness Of Breath Stop: 07/08/20 18:30 Allopurinol (Allopurinol 300 Mg Tab) 300 mg PO QAM [facility] Stop: 07/07/20 08:59 Last Admin: 06/09/20 09:43 Dose: 300 mg Documented by: Amlodipine Besylate (Amlodipine Besylate 5 Mg Tab) 10 mg PO QAM [facility] Stop: 07/08/20 08:59 Last Admin: 06/09/20 09:43 Dose: 10 mg Documented by: Atorvastatin Calcium (Atorvastatin 40 Mg Tab) 40 mg PO QAM [facility] Stop: 07/07/20 08:59 Last Admin: 06/09/20 09:44 Dose: 40 mg Documented by: Clopidogrel Bisulfate (Clopidogrel Bisulfate 75 Mg Tab) 75 mg PO QAM [facility] Stop: 07/07/20 08:59 Last Admin: 06/09/20 09:44 Dose: 75 mg Documented by: Docusate Sodium (Docusate Sodium 100 Mg Cap) 100 mg PO BID [facility] Stop: 07/06/20 20:59 Last Admin: 06/09/20 09:42 Dose: 100 mg Documented by: Ferrous Sulfate (Ferrous Sulfate 325 Mg Tab) 325 mg PO DAILY [facility] Stop: 07/07/20 08:59 Last Admin: 06/09/20 09:43 Dose: 325 mg Documented by: Finasteride (Finasteride 5 Mg Tab) 5 mg PO DAILY [facility] Stop: 07/07/20 08:59 Last Admin: 06/09/20 09:44 Dose: 5 mg Documented by: Fluticasone Furoate (Fluticasone Furoate 100mcg 14 Puffs/Inhaler) 1 puffs INH DAILY [facility]; Protocol Stop: 07/07/20 08:59 Last Admin: 06/09/20 09:42 Dose: 1 puffs Documented by: Furosemide (Furosemide 40 Mg Tab) 40 mg PO DAILY [facility] Stop: 07/07/20 08:59 Last Admin: 06/07/20 08:05 Dose: 40 mg Documented by: Gabapentin (Gabapentin 300 Mg Cap) 300 mg PO TID [facility] Stop: 07/08/20 13:59 Last Admin: 06/09/20 15:08 Dose: 300 mg Documented by: Guaifenesin (Guaifenesin 600 Mg Tabcr) 600 mg PO Q12 [facility] Stop: 07/08/20 20:44 Last Admin: 06/09/20 09:44 Dose: 600 mg Documented by: Levothyroxine Sodium (Levothyroxine Sodium 100 Mcg Tablet) 100 mcg PO DAILYBB [facility] Stop: 07/07/20 06:29 Last Admin: 06/09/20 04:24 Dose: 100 mcg Documented by: Lidocaine (Lidocaine 5% 1 Patch) 1 patch TD QAM [facility] Stop: 07/09/20 12:59 Last Admin: 06/09/20 15:08 Dose: 1 patch Documented by: Magnesium Oxide (Magnesium Oxide 400 Mg Tab) 400 mg PO BID [facility] Stop: 07/06/20 20:59 Last Admin: 06/09/20 09:43 Dose: 400 mg Documented by: Metoprolol Tartrate (Metoprolol Tartrate 50 Mg Tab) 50 mg PO BID [facility] Stop: 07/08/20 07:59 Last Admin: 06/09/20 09:43 Dose: 50 mg Documented by: Mirabegron (Mirabegron Er 25 Mg Tab) 50 mg PO DAILY [facility] Stop: 07/07/20 08:59 Last Admin: 06/09/20 09:42 Dose: 50 mg Documented by: Mirtazapine (Mirtazapine Soltab 15 Mg) 7.5 mg PO HS [facility] Stop: 07/06/20 20:59 Last Admin: 06/08/20 20:19 Dose: 7.5 mg Documented by: Miscellaneous (Remove Lidoderm Patch) 1 ea N/A DAILY@2100 [facility] Stop: 07/09/20 20:59 Oxybutynin Chloride (Oxybutynin Chloride 5 Mg Tab) 5 mg PO DAILY [facility] Stop: 07/07/20 08:59 Last Admin: 06/09/20 09:44 Dose: 5 mg Documented by: Prednisone (Prednisone 5 Mg Tab) 5 mg PO QAM [facility] Stop: 07/07/20 08:59 Last Admin: 06/09/20 09:44 Dose: 5 mg Documented by: Tamsulosin HCl (Tamsulosin Hcl 0.4 Mg Cap) 0.4 mg PO QPM [facility] Stop: 07/06/20 20:59 Last Admin: 06/08/20 20:19 Dose: 0.4 mg Documented by: Vitamin D (Cholecalciferol 1,000 Units 25 Mcg Tab) 2,000 units PO PM [facility] Stop: 07/06/20 20:59 Last Admin: 06/08/20 20:19 Dose: 2,000 units Documented by: (1) Fall Encounter type: initial encounter Qualified Code(s): W19.XXXA - Unspecified fall, initial encounter (2) Cervical spine fracture Cervical vertebra fracture level: C5 Encounter type: initial encounter Fracture alignment: nondisplaced Fracture morphology: unspecified fracture morphology Fracture type: closed Qualified Code(s): S12.401A - Unspecified nondisplaced fracture of fifth cervical vertebra, initial encounter for closed fracture (3) Chest pain Chest pain type: unspecified Qualified Code(s): R07.9 - Chest pain, unspecified
[2020-06-09] MEDS: TAMSULOSIN HCL 0.4 MG CAP PO SCH (20:02)
[2020-06-09] MEDS: MIRTAZAPINE SOLTAB 15 MG PO SCH (20:05)
[2020-06-09] MEDS: CHOLECALCIFEROL 1,000 UNITS 25 MCG TAB PO SCH (20:06)
[2020-06-10] MEDS: LEVOTHYROXINE SODIUM 100 MCG TABLET PO SCH (05:51)
[2020-06-10 07:35] LABS: BUN Creatinine Ratio 26.9 (10-20); Calcium 8.8 mg/dl (8.5-10.1); Creatinine Clr Calc Pharmacy 42.5 ml/min; Est GFR (African American) 59.8; Est GFR (Non-African American) 51.6; Potassium 4.4 mmol/L (3.5-5.1)
[2020-06-10] MEDS: allopurinoL 300 MG TAB PO SCH (09:17)
[2020-06-10] MEDS: FLUTICASONE FUROATE 100MCG 14 PUFFS/INHALER INH SCH (09:17)
[2020-06-10] MEDS: OXYBUTYNIN CHLORIDE 5 MG TAB PO SCH (09:17)
[2020-06-10] MEDS: FINASTERIDE 5 MG TAB PO SCH (09:17)
[2020-06-10] MEDS: amLODIPine BESYLATE 5 MG TAB PO SCH (09:17)
[2020-06-10] MEDS: CLOPIDOGREL BISULFATE 75 MG TAB PO SCH (09:17)
[2020-06-10] MEDS: METOPROLOL TARTRATE 50 MG TAB PO SCH (09:18)
[2020-06-10] MEDS: DOCUSATE SODIUM 100 MG CAP PO SCH (09:18)
[2020-06-10] MEDS: ATORVASTATIN 40 MG TAB PO SCH (09:18)
[2020-06-10] MEDS: guaiFENesin 600 MG TABCR PO SCH (09:18)
[2020-06-10] MEDS: MAGNESIUM OXIDE 400 MG TAB PO SCH (09:18)
[2020-06-10] MEDS: predniSONE 5 MG TAB PO SCH (09:18)
[2020-06-10] MEDS: FERROUS SULFATE 325 MG TAB PO SCH (09:18)
[2020-06-10] MEDS: GABAPENTIN 300 MG CAP PO SCH ×2 (09:18→13:11)
[2020-06-10] MEDS: LIDOCAINE 5% 1 PATCH TD SCH (09:19)
[2020-06-10] MEDS: MIRABEGRON ER 25 MG TAB PO SCH (09:19)
--- NOTE | 2020-06-10 11:11 | Hospitalist Progress Note ---
Date of Service June 10, 2020 Assessment & Plan (1) Fall: (2) Cervical spine fracture: CT head was negative on admission. Cervical spine was concerning for nondisplaced fracture of the right pedicle of C5. Did speak with orthospine and they believe it is chronic. Patient denies any neck pain. C-collar was removed. Continue to work with PT/OT. Did not have any more neck pain following admission Musculoskeletal chest pain Complains of nonspecific pain involving the left foot and also chest wall Gabapentin doses have been increased to 300 mg 3 times daily He claims to be taking 600 mg 3 times daily as an outpatient Chest wall pain seems to be muscular with moderate to severe tenderness over pectoralis major muscle We will try lidocaine patch-the chest pain is controlled with the patch Creatinine is slightly high at 1.44 He was advised to drink more fluid We will monitor PRP-remains a stable creatinine at 1.42 Creatinine has been normalized at 1.24 on 06/10/2020 (3) Chest pain: Hypertensive urgency on admission-now hypotensive Chest pain seems to be musculoskeletal-moderate to severe tenderness over pectoralis muscle on left side He presented with chest pain. He was also complaining chest pain again this morning. He has been nonischemic. EKG was not concerning. His pain sounds more like musculoskeletal in nature. Reports the pain is worse with movement and deep breathing. Continue with INSPECTOR TESTER SORTER furosemide 40 mg daily and Lopressor 50 mg twice daily. Patient was still on amlodipine 5 mg daily overnight, We will continue with amlodipine 10 mg daily Chest pain is musculoskeletal (4) H/O atrial flutter: Rate is controlled. Continue with INSPECTOR TESTER SORTER metoprolol. Not on any anticoagulation given risk factors. 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 Wound care has been consulted. Patient remains afebrile. White count is within normal limits. No acute infection and the wound is dry (6) Chronic diastolic heart failure: -Appears euvolemic, continue home diuretics (7) COPD (chronic obstructive pulmonary disease): -No signs of acute exacerbation, continue home inhalers and prednisone -Was given nebulized bronchodilator yesterday for improved cough -No increasing shortness of breath (8) DVT prophylaxis: -SQ heparin We will continue PT and OT Likely discharge this afternoon Admission and Anticipated Discharge Date Admission Date: June 08, 2020 Subjective 06/08/2020 The patient was seen and examined in medical telemetry unit He complains to have nonspecific pain involving the left heel and also sometimes the chest Not have any palpitation and/or shortness of breath associated with it Denies any fever and/or chills, any nausea and/or vomiting 06/09/2020 The patient was seen and examined in medical telemetry unit He has been feeling a lot better but he still complains of pain in the left precordial area The pain is worse with deep breathing and locally very tender over anterolateral chest wall Denies any other symptoms 06/10/2020 Patient was seen and examined in medical telemetry unit He has been feeling much better with a few nonspecific symptoms especially pain but is not in particular area History of chest pain/precordial pain is better with lidocaine patch Denies any other acute symptoms Review of Systems Review of Systems: All systems reviewed and are unremarkable except as noted below Respiratory: no cough and no dyspnea Musculoskeletal: Pain in the left heel Physical Exam Physical Exam: Lying in bed comfortably Constitutional: average body habitus; not ill appearing Eyes: PERRL, conjunctivae normal, anicteric sclerae ENMT: external ear and nose normal, oropharynx normal Neck: trachea midline, no thyromegaly Respiratory: no respiratory distress Auscultation: lungs clear to auscultation bilaterally Cardiovascular: Rate/Rhythm: + irregularly irregular Heart Sounds: no murmur Extremities: no edema Gastrointestinal (Abdomen): Inspection/Auscultation: normal bowel sounds; abdomen not distended Percussion/Palpation: abdomen soft; abdomen nontender Musculoskeletal: No acute arthritis in any joint Neurologic: Alert, awake and oriented x3. Remains generally weak but no focal neuro deficit Psychiatric: A+Ox3, euthymic affect Lymphatic: no cervical or axillary lymphadenopathy Results & Data Results & Data ([facility]) Vital Signs (Past 12 Hours) Vital Signs Temp Pulse Pulse Resp BP Pulse Ox 06/10/20 08:13 36.7 C 99 H 20 130/80 97 06/10/20 02:55 36.6 C 93 H 19 157/86 H 97 06/09/20 23:36 69 06/09/20 23:24 36.7 C 75 16 159/93 H 92 Laboratory Results [facility] 06/10/20 06:25 Sodium 139 Potassium 4.4 Chloride 105 Carbon Dioxide 26 BUN 33 H Creatinine 1.24 Glucose 115 H Calcium 8.8 Medications Administered Current Inpatient Medications Acetaminophen (Acetaminophen 325 Mg Tab) 650 mg PO Q4H PRN PRN Reason: Pain or Fever Stop: 07/06/20 16:42 Last Admin: 06/08/20 08:04 Dose: 650 mg Documented by: Acetylcysteine (Acetylcysteine 20% Inhal Soln 4ml Dispensed By Resp.) 5 ml INH Q6H PRN PRN Reason: Cough Stop: 07/08/20 19:08 Albuterol (Albuterol 0.083% Nebu Soln 3 Ml Vial) 2.5 mg NEB Q6R PRN PRN Reason: Shortness Of Breath Stop: 07/08/20 18:30 Allopurinol (Allopurinol 300 Mg Tab) [facility] [place] Stop: 07/07/20 08:59 Last Admin: 06/10/20 09:17 Dose: 300 mg Documented by: Amlodipine Besylate (Amlodipine Besylate 5 Mg Tab) 10 mg [facility] [place] Stop: 07/08/20 08:59 Last Admin: 06/10/20 09:17 Dose: 10 mg Documented by: Atorvastatin Calcium (Atorvastatin 40 Mg Tab) 40 mg [facility] [place] Stop: 07/07/20 08:59 Last Admin: 06/10/20 09:18 Dose: 40 mg Documented by: Clopidogrel Bisulfate (Clopidogrel Bisulfate 75 Mg Tab) 75 mg PO QAM [facility] Stop: 07/07/20 08:59 Last Admin: 06/10/20 09:17 Dose: 75 mg Documented by: Docusate Sodium (Docusate Sodium 100 Mg Cap) 100 mg PO BID [facility] Stop: 07/06/20 20:59 Last Admin: 06/10/20 09:18 Dose: 100 mg Documented by: Ferrous Sulfate (Ferrous Sulfate 325 Mg Tab) 325 mg PO DAILY [facility] Stop: 07/07/20 08:59 Last Admin: 06/10/20 09:18 Dose: 325 mg Documented by: Finasteride (Finasteride 5 Mg Tab) 5 mg PO DAILY [facility] Stop: 07/07/20 08:59 Last Admin: 06/10/20 09:17 Dose: 5 mg Documented by: Fluticasone Furoate (Fluticasone Furoate 100mcg 14 Puffs/Inhaler) 1 puffs INH DAILY [facility]; Protocol Stop: 07/07/20 08:59 Last Admin: 06/10/20 09:17 Dose: 1 puffs Documented by: Furosemide (Furosemide 40 Mg Tab) 40 mg PO DAILY [facility]OM[facility] Stop: 07/07/20 08:59 Last Admin: 06/07/20 08:05 Dose: 40 mg Documented by: Gabapentin (Gabapentin 300 Mg Cap) 300 mg PO TID [facility]OM[facility] Stop: 07/08/20 13:59 Last Admin: 06/10/20 09:18 Dose: 300 mg Documented by: Guaifenesin (Guaifenesin 600 Mg Tabcr) 600 mg PO Q12 [facility]OM[facility] Stop: 07/08/20 20:44 Last Admin: 06/10/20 09:18 Dose: 600 mg Documented by: Levothyroxine Sodium (Levothyroxine Sodium 100 Mcg Tablet) 100 mcg PO DAILYBB [facility] Stop: 07/07/20 06:29 Last Admin: 06/10/20 05:51 Dose: 100 mcg Documented by: Lidocaine (Lidocaine 5% 1 Patch) 1 patch TD QAM [facility]OM[facility] Stop: 07/09/20 12:59 Last Admin: 06/10/20 09:19 Dose: 1 patch Documented by: Magnesium Oxide (Magnesium Oxide 400 Mg Tab) 400 mg PO BID [facility] Stop: 07/06/20 20:59 Last Admin: 06/10/20 09:18 Dose: 400 mg Documented by: Metoprolol Tartrate (Metoprolol Tartrate 50 Mg Tab) 50 mg PO BID [facility] Stop: 07/08/20 07:59 Last Admin: 06/10/20 09:18 Dose: 50 mg Documented by: Mirabegron (Mirabegron Er 25 Mg Tab) 50 mg PO DAILY DIOM[facility] Stop: 07/07/20 08:59 Last Admin: 06/10/20 09:19 Dose: 50 mg Documented by: Mirtazapine (Mirtazapine Soltab 15 Mg) 7.5 mg PO HS [facility] Stop: 07/06/20 20:59 Last Admin: 06/09/20 20:05 Dose: 7.5 mg Documented by: Miscellaneous (Remove Lidoderm Patch) 1 ea N/A DAILY@2100 [facility] Stop: 07/09/20 20:59 Last Admin: 06/09/20 20:07 Dose: 1 ea Documented by: Oxybutynin Chloride (Oxybutynin Chloride 5 Mg Tab) 5 mg PO DAILY [facility] Stop: 07/07/20 08:59 Last Admin: 06/10/20 09:17 Dose: 5 mg Documented by: Prednisone (Prednisone 5 Mg Tab) 5 mg PO QAM [facility] Stop: 07/07/20 08:59 Last Admin: 06/10/20 09:18 Dose: 5 mg Documented by: Tamsulosin HCl (Tamsulosin Hcl 0.4 Mg Cap) 0.4 mg PO QPM [facility]OM[facility] Stop: 07/06/20 20:59 Last Admin: 06/09/20 20:02 Dose: 0.4 mg Documented by: Vitamin D (Cholecalciferol 1,000 Units 25 Mcg Tab) 2,000 units PO PM [facility] Stop: 07/06/20 20:59 Last Admin: 06/09/20 20:06 Dose: 2,000 units Documented by: (1) Fall Encounter type: initial encounter Qualified Code(s): W19.XXXA - Unspecified fall, initial encounter (2) Cervical spine fracture Cervical vertebra fracture level: C5 Encounter type: initial encounter Fracture alignment: nondisplaced Fracture morphology: unspecified fracture morphology Fracture type: closed Qualified Code(s): S12.401A - Unspecified nondisplaced fracture of fifth cervical vertebra, initial encounter for closed fracture (3) Chest pain Chest pain type: unspecified Qualified Code(s): R07.9 - Chest pain, unspecified
[2020-06-10] MEDS ORDERED: AMOXICILLIN 500 MG CAP PO SCH (15:00)
[2020-06-10] MEDS ORDERED: cephALEXin 500 MG CAP PO ONE (15:00)
[2020-06-10] MEDS ORDERED: cephALEXin 500 MG CAP PO SCH (17:00)
--- NOTE | 2020-06-11 08:24 | Discharge Summary ---
Date of Service June 11, 2020 Admission HPI Per Admitting Provider 89-year-old male with PMH COPD, PAD, aortic stenosis, HTN, chronic diastolic CHF, CKD stage III, and other problems listed below who presents to the ED for evaluation after a fall. Patient admitted to [facility] 01/2020 for pneumonia. Patient discharged to [facility] for rehab and was recently transition to [facility] on 06/01/2020. History of this morning's events are somewhat limited from the patient however he reports that he was trying to get back into the bed when he missed the edge of the bed and fell to the ground. Patient denies striking his head or having loss of consciousness. No neck pain. Staff at [facility] reported that the patient appeared short of breath and he was clutching his chest reporting chest pain. Patient is unaware of this complaint. Patient reports he otherwise has been feeling well recently. Denies any other recent illnesses, fevers, chills. No abdominal pain, nausea, vomiting, diarrhea. Denies lightheadedness, dizziness, diaphoresis, syncopal e vents. No urinary symptoms. In the ED, head CT is negative for acute findings. Neck CT shows Nondisplaced fractures of the left lamina and right pedicle of C5, likely subacute or chronic in nature. Initial troponin is negative, EKG does not show any acute ST changes. Patient is hypertensive otherwise hemodynamically stable. He was given amlodipine 2.5 mg, metoprolol succinate 50 mg, IVF. Admission Exam Per Admitting Provider Constitutional: WD/WN, vitals as above Eyes: PERRL, conjunctivae normal, anicteric sclerae ENMT: external ear and nose normal, oropharynx normal Neck: [place] J collar in place Respiratory: normal respiratory effort, lungs clear to auscultation Cardiovascular: Rate/Rhythm: regular rhythm and + tachycardic Vessels: normal peripheral pulses Extremities: no edema Gastrointestinal (Abdomen): normal bowel sounds, soft, nontender, no hepatosplenomegaly Musculoskeletal: no cyanosis or clubbing, extremities motor strength 5/5 Skin: no rashes, warm and dry Small wound with scab noted to plantar surface of left third toe, no drainage noted Neurologic: PERRL, EOMI, accommodation nl, no face palsy, no dysarthria Psychiatric: A+Ox3, euthymic affect Insight: + limited insight Principal Diagnosis Fall secondary to ambulatory dysfunction, chest pain likely musculoskeletal and no ACS, COPD, healed and dry left foot wound, history of atrial flutter, chronic diastolic heart failure Discharge Exam Constitutional average body habitus; not ill appearing Eyes PERRL, conjunctivae normal, anicteric sclerae ENMT external ear and nose normal, oropharynx normal Neck trachea midline, no thyromegaly Respiratory no respiratory distress Auscultation: lungs clear to auscultation bilaterally Cardiovascular Rate/Rhythm: + irregularly irregular Heart Sounds: no murmur Extremities: no edema Gastrointestinal (Abdomen) Inspection/Auscultation: normal bowel sounds; abdomen not distended Percussion/Palpation: abdomen soft; abdomen nontender Psychiatric A+Ox3, euthymic affect Lymphatic no cervical or axillary lymphadenopathy Discharge Data Allergies Allergy/AdvReac Type Severity Reaction Status Date / Time morphine Allergy Unknown "out of it Verified 06/06/20 11:33 for days" [place] [employer] AdvReac Intermediate STOMACH Verified 06/06/20 11:33 ACHE FROM [employer] tomato AdvReac Intermediate HEADACHE Verified 06/06/20 11:33 FROM [facility] [facility] colchicine AdvReac Mild GI upset Verified 06/06/20 11:33 Consultations 06/06/20 14:03 ED Decision to Admit Stat 06/06/20 16:43 Consult Case Management - Discharge Planning Routine Ordered Studies 06/06/20 11:17 CT cervical spine wo con Stat CT head/brain wo con Stat 06/06/20 11:20 CT angio chest PE protocol Stat Hospital Course (1) Fall: (2) Cervical spine fracture: CT head was negative on admission. Cervical spine was concerning for nondisplaced fracture of the right pedicle of C5. Did speak with orthospine and they believe it is chronic. Patient denies any neck pain. C-collar was removed. Continue to work with PT/OT. Did not have any more neck pain following admission Musculoskeletal chest pain Complains of nonspecific pain involving the left foot and also chest wall Gabapentin doses have been increased to 300 mg 3 times daily He claims to be taking 600 mg 3 times daily as an outpatient Chest wall pain seems to be muscular with moderate to severe tenderness over pectoralis major muscle We will try lidocaine patch-the chest pain is controlled with the patch Creatinine is slightly high at 1.44 He was advised to drink more fluid We will monitor PRP-remains a stable creatinine at 1.42 Creatinine has been normalized at 1.24 on 06/10/2020 (3) Chest pain: Hypertensive urgency on admission-now hypotensive Chest pain seems to be musculoskeletal-moderate to severe tenderness over pectoralis muscle on left side He presented with chest pain. He was also complaining chest pain again this morning. He has been nonischemic. EKG was not concerning. His pain sounds more like musculoskeletal in nature. Reports the pain is worse with movement and deep breathing. Continue with SUPERVISOR LIME furosemide 40 mg daily and Lopressor 50 mg twice daily. Patient was still on amlodipine 5 mg daily overnight, We will continue with amlodipine 10 mg daily Chest pain is musculoskeletal (4) H/O atrial flutter: Rate is controlled. Continue with SUPER[employer] LIME metoprolol. Not on any anticoagulation given risk factors. 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 Wound care has been consulted. Patient remains afebrile. White count is within normal limits. No acute infection and the wound is dry (6) Chronic diastolic heart failure: -Appears euvolemic, continue home diuretics (7) COPD (chronic obstructive pulmonary disease): -No signs of acute exacerbation, continue home inhalers and prednisone -Was given nebulized bronchodilator yesterday for improved cough -No increasing shortness of breath (8) DVT prophylaxis: -SQ heparin We will continue PT and OT Likely discharge this afternoon Total Time Total Time Spent Total Time Spent (In Minutes): 40 minutes Total Time Includes: Examination of the Patient, Discharge Planning, Medication Reconciliation and Communication With Other Providers Discharge Plan Discharge Items Patient Disposition: Transfer Longterm Fac Reason For Visit: CHEST PAIN Discharge Diagnosis: Fall secondary to ambulatory dysfunction, chest pain likely musculoskeletal and no ACS, COPD, healed and dry left foot wound, history of atrial flutter, chronic diastolic heart failure Condition on Discharge: Fair Activity: Resume your previous activity Activity Comment: Will need to continue PT and OT Non-emergency contact: Primary Care Provider Call non-emergency contact if: you have any medication questions [facility]Ref[facility] - Patrick Albarran MD [Outside Practitioners] - (Date & Time 06/13/2020 3:00 PM Provider Patrick Albarran MD Department [facility] ) Diet: Heart Healthy Fluids: 1500ml (6 cups) Addtl Attending Provider Instructions: Please take precaution to avoid falls Catheter can be removed in 7 days Pending Studies at Discharge: No Stand-Alone Forms: My [facility] Skilled Items Patient informed of condition?: Yes DNR: Yes Discharge Level of Care: Skilled Communicable Disease: No Discharge Prognosis: Stable Lines: None Urinary Catheter: Yes Medications and DC Order Prescriptions: New amlodipine [Norvasc] 5 mg Tablet 5 mg PO QAM 30 Days Qty: 30 RF: 0 lidocaine 5 % Adhesive Patch,Medicated 1 patch transdermal QAM 30 Days Qty: 30 RF: 0 metoprolol tartrate 50 mg Tablet 50 mg PO BID 30 Days Qty: 60 RF: 0 amoxicillin 500 mg Capsule 500 mg PO TID 7 Days Qty: 21 RF: 0 Continued furosemide 20 mg tablet 40 mg PO DAILY RF: 0 Myrbetriq 50 mg tablet extended release 24 hr 50 mg PO DAILY Qty: 90 RF: 1 tamsulosin 0.4 mg capsule 0.4 mg PO QPM Qty: 90 RF: 1 atorvastatin 40 mg tablet 40 mg PO QAM Qty: 90 RF: 0 clopidogrel 75 mg tablet 75 mg PO QAM Qty: 30 RF: 0 allopurinol 300 mg tablet 300 mg PO QAM Qty: 90 RF: 0 ondansetron HCl [Zofran] 4 mg Tablet 4 mg PO Q8H PRN (Reason: Nausea And Vomiting) RF: 0 prednisone 5 mg Tablet 5 mg PO QAM RF: 0 Asmanex Twisthaler 220 mcg/ actuation (120) Aerosol Powdr Breath Activated 2 inh INHALATION BID RF: 0 Men's Daily Multivit-Mineral 0.4-600 mg-mcg Tablet 1 tab PO DAILY RF: 0 Combivent Respimat 20-100 mcg/actuation Mist 1 puff INHALATION QID PRN (Reason: Shortness Of Breath Or Wheezing) RF: 0 cholecalciferol (vitamin D3) [Vitamin D3] 2,000 unit Tablet 2,000 unit PO PM RF: 0 magnesium oxide 400 mg magnesium Tablet 400 mg PO BID RF: 0 ferrous sulfate 325 mg (65 mg iron) Tablet 325 mg PO DAILY RF: 0 levothyroxine 50 mcg Tablet 100 mcg PO QAM RF: 0 gabapentin 100 mg capsule 200 mg PO TID RF: 0 mirtazapine 15 mg Tablet,Disintegrating 7.5 mg PO HS RF: 0 oxybutynin chloride 5 mg tablet 5 mg PO DAILY RF: 0 finasteride 5 mg tablet 5 mg PO DAILY RF: 0 melatonin 1 mg Tablet 4 mg PO HS RF: 0 acetaminophen 325 mg Capsule 325 mg PO QID PRN (Reason: Pain) RF: 0 Biotene Dry Mouth Oral Rinse Mouthwash 1 ea PO DAILY RF: 0 docusate sodium 100 mg Tablet 100 mg PO BID RF: 0 Discontinued metoprolol tartrate 25 mg Tablet 25 mg PO BID RF: 0 Discharge Orders: Discharge Order (Routine); Ordered 06/10/20 Ordered By: Khalif De La Cruz Admission Data Admit Date/Time: 06/08/20 13:12 Attending Provider: Khalif De La Cruz Admit Provider: Madhav Lindo Primary Care Provider: LUCY Samano Other Providers: Madhav Lindo ; LibertyPrincess Anne Other Interventions: Discharge Summary Assessment (RN) Last Done: 06/10/20 14:21
--- NOTE | 2020-06-21 09:00 | Coding Query ---
Pl send this to Dr Galvan To promote full compliance with coding requirements relating to patient care, physician participation is requested in all cases of bookkeeping assistant uncertainty. Please assist us with the question(s) below: Coding Question(s): It was noted throughout the record that the patient has/is suspected to have osteoporosis. According to coding guidelines "a code for osteoporotic fracture, and not a traumatic fracture, should be used for any patient with known osteoporosis who suffers a fracture, even if the patient had a minor fall or trauma, if that fall or trauma would not usually break a normal, healthy bone." Please indicate below the type of fracture: Physician's Response(s): Pl send this to Dr Galvan ( ) Osteoporotic fracture of Cervical Spine ( ) Traumatic fracture of Cervical Spine ( ) Other, please specify ( x ) Unable to be determined MTDD
--- NOTE | 2020-06-21 09:19 | Coding Query ---
Pl send this to Dr Galvan CODING QUERY To promote full compliance with coding requirements relating to patient care, provider participation is requested in all cases of public information relations manager uncertainty. Please assist us with the question(s) below: Coding Question(s): Pl send this to Dr Galvan Physician's Response(s): The Communication Note on 06/08/20 documents, "New onset A. fib hx atrial flutter as per records not on anticoagulation ? Secondary to hypovolemia, ARF Facilitate beta-lilly for rate control Baseline UA Monitor creatinine response to IVF Hold Lasix until creatinine back to baseline" and Progress Notes 06/08/20 thru Discharge Summary document, "Creatinine is slightly high at 1.44 He was advised to drink more fluid We will monitor PRP". Please specify below, regarding Creatine is slightly high documentation. ( ) Creatinine is slightly high is ARF meaning Acute Renal Failure. Please Specify below, regarding POA status: ( ) Present on Admission ( ) Not Present on Admission ( ) Unknown if Present on Admission ( ) Creatinine is slightly high is NOT ARF, not Acute Renal Failure ( x ) Other: Please specify__Minor change in BUN and Creatinine can happen with dehydration.Difficult to document as Renal failure or MAXI Thank you Makeda Lyn Principal Diagnosis: "that condition established after study, to be chiefly responsible for occasioning the admission of the patient to the hospital for care." Co-Existing Principal Diagnosis: "when two or more diagnoses equally meet the criteria for principal diagnosis as determined by the circumstances of admission, diagnostic work up, and/or therapy provided, and the Alphabetic Index, Tabular List, or another coding guideline does not provide sequencing direction, any one of the diagnoses may be sequenced first." "When the physician has documented what appears to be a current diagnosis in the body of the record, but has not included the diagnosis in the final diagnostic statement, the physician should be asked whether the diagnosis should be added." (Source Coding [facility] 2 QTR90. p3-4) LILIAN
== END 2020-06-10 17:08 ==
LOC: 2W 10:42 → ED 10:42 → SUATTDRO 14:05 → 2W 16:21

== ENCOUNTER 2021-03-10 03:39 | Inpatient (IN) ==
[2021-03-10 04:30] LABS: Basophils # (auto) 0.02 K/uL (0-0.2); Basophils % (auto) 0.2 %; Eosinophils # (auto) 0.16 K/uL (0-0.5); Eosinophils % (auto) 1.3 %; Hematocrit (blood only) 41.4 % (42-52); Hemoglobin 12.9 g/dL (14.0-18.0); Immature Granulocytes # (auto) 0.02 K/uL (0.00-0.02); Immature Granulocytes % (auto) 0.2 %; Lymphocytes # (auto) 1.32 K/uL (1.2-3.4); Lymphocytes % (auto) 10.9 %; Mean Corpuscular Hemoglobin 28.7 pg (25-34); Mean Corpuscular Hgb Conc 31.2 g/dL (32-36); Mean Platelet Volume 9.5 fL (7.4-10.4); Monocytes # (auto) 0.72 K/uL (0.11-0.59); Neutrophils # (auto) 9.86 K/uL (1.4-6.5); Neutrophils % (auto) 81.4 %; Platelet Count 210 K/uL (130-400); RDW Standard Deviation 50.4 fL (36.4-46.3)
--- NOTE | 2021-03-10 04:33 | Emergency Department Note ---
Impression & Plan Bilateral pneumonia, Elevated troponin, Acute encephalopathy Admit to the [facility] ED Provider Note NAME: BAILEE CTOTON AGE: 89 SEX: M ARRIVES VIA: Ambulance INFORMANT: EMS ED PROVIDER(S): Katie Gutierrez DO CHIEF COMPLAINT: Altered level of consciousness PLAN: Disposition: Admit to the [facility] Condition: Guarded MEDICAL DECISION MAKING: This is an 89-year-old male patient who presents to the emergency department from [facility] with an altered level of consciousness. Patient has a history of hepatic encephalopathy. Upon EMS arrival, the patient was nauseated and lethargic. The patient had recently started medications for a URI. Patient has been treated in the past for encephalopathy. This x-ray was performed here and showed evidence of bilateral multifocal airspace opacities. he will be tested for Covid. Ammonia levels were normal. O2 saturations remained stable. He was extremely lethargic and difficult to arouse here. He had been started on Zithromax over the past 2 days for what they described as URI. I added Rocephin IV. Patient had an elevated troponin here by laboratory studies. During previous admissions, the patient has had multiple episodes of elevated troponins. EKG is unchanged. I discussed the case with the [facility] Hospitalist and they will evaluate for further management. Triage Nursing notes reviewed and agree with them. Additional history obtained from EMS Prior medical records reviewed Vital Signs: reviewed and unremarkable Differential diagnosis: Exacerbation of hepatic encephalopathy, fatigue, anemia, hypoglycemia, pneumonia, hypoxia, COVID-19, STEMI, NSTEMI ER treatment provided: IV Rocephin Diagnostics interpreted by me: ECG: Normal sinus rhythm at a rate of 96 with a first-degree AV block. There is left axis deviation. There is no ST segment elevation or signs of ischemia. There is no ectopy. The NM interval has increased since October 2020 Cardiac Monitoring: Normal sinus rhythm at 90 Laboratory studies: See below Imaging studies: As per my interpretation Portable chest x-ray: Bilateral airspace opacities consistent with pneumonia HPI: 89/M arrives for evaluation of altered level of consciousness. The patient presents with increased lethargy or altered level of consciousness from [facility]. Patient's only complaint was of nausea. His BSG was 133. Patient has recently been treated for an upper respiratory infection with antibiotics ROS: See above HPI for pertinent positives & negatives. A total of 10 systems reviewed and were otherwise negative. PAST MEDICAL HISTORY:See Below PAST SURGICAL HISTORY:See Below FAMILY HISTORY:See Below SOCIAL HISTORY:See Below HOME MEDICATIONS:See list ALLERGIES:See list VITALS:See Below PHYSICAL EXAMINATION: General: The patient appears to be sleeping and is quite difficult to arouse. HEENT: Head - normocephalic and atraumatic Pupils are 2 mm equal, round, and reactive to light. Extraocular eye muscles are intact, and sclera are anicteric. Nose - moist nasal mucosa without discharge. Mouth - moist buccal mucosa. Oropharynx is nonerythematous and there is no tonsillar exudate or edema noted. Neck: Supple; no JVD, nuchal rigidity, cervical lymphadenopathy, or auscultated bruits. Heart: Regular rate and rhythm. There is a normal S1 and S2 with no murmurs, clicks, or gallops appreciated. Lungs: Clear to auscultation bilaterally with no wheezes, rales, or rhonchi. Abdomen: Soft, completely nontender, nondistended, with good bowel sounds. There are no palpable pulsatile masses or hepatosplenomegaly. There is no guarding, rigidity, or rebound noted. Extremities: No evidence of cyanosis, clubbing, or edema. There are easily palpable peripheral pulses. Skin: warm and dry with good turgor and no rashes. ED COURSE: Times/Reassessments: 0410: Patient was evaluated in room A4. A twelve-lead EKG was obtained. An order was placed for continuous cardiac monitoring. The patient was in a normal sinus rhythm at a rate of 90. Laboratory studies were drawn as above. A portable chest x-ray was performed. Previous electronic medical records were reviewed. Records from [facility] were reviewed. The patient has received 2 days of Zithromax by mouth. He will receive a gram of IV Rocephin here in the emergency department. I discussed the case with the [facility] hospitalist. Katie Gutierrez DO Past Med/Surg History Medical History (Updated 03/10/21 @ 22:21 by Katie Gutierrez DO) Anemia Aortic stenosis Severe aortic stenosis (FCO 0.6-0.63cm2, MG 38.2mmhg) per 03/2019 echo > TAVR (07/2020), echo done 08/2020 BPH (benign prostatic hypertrophy) BPH with obstruction/lower urinary tract symptoms Chronic diastolic heart failure Chronic venous insufficiency CKD (chronic kidney disease), stage III COPD (chronic obstructive pulmonary disease) Dyslipidemia Elevated PSA Esophageal dysmotility GERD (gastroesophageal reflux disease) Gout H/O atrial flutter Post-op (2013)- converted to SR with IV diltiazem Hiatal hernia History of duodenal ulcer History of kidney stones Hypertension Neuropathy Nocturnal hypoxemia 2L O2 HS Osteoarthritis Osteoporosis Peripheral vascular disease s/p angioplasty of right posterior tibial artery Psoriatic arthritis Renal lesion Umbilical hernia Urinary incontinence Urinary retention Surgical History Amputation of toe R/L second toe Family history of reaction to anesthesia Daughter- N/V History of angioplasty of peripheral vessel History of cataract surgery R/L History of colonoscopy History of esophagogastroduodenoscopy (EGD) History of lithotripsy History of lumbar fusion History of tooth extraction 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 Status post endovenous radiofrequency ablation of saphenous vein Family History Mother Colorectal cancer Sister Breast cancer Lung cancer Father Parkinson disease Brother Nephrolithiasis Social History Smoking Status: Former smoker Tobacco Type: Cigarettes Second Hand Exposure: No; Do You Dip or Chew Tobacco: No; Hx Alcohol Use: No Hx Substance Use: No Preferred Language: Czech Communication Ability: Effective Visual Impairment: No Limitations Hearing Ability: Normal [place] Required: No Beliefs That Will Affect Care: None marital status: / Current Living Situation: Personal Care Facility Current Living Situation Comment: [facility] Personal long term current occupational status: retired other: walks with walker Feels Safe at Home: No Is there a partner from a previous relationship who is making you feel unsafe now?: No Any Concerns about Your Family Situation: No Would You Like to Speak to Someone About Your Situation: No Assistive Devices: Walker Allergies Allergies Allergy/AdvReac Type Severity Reaction Status Date / Time iodine Allergy Unknown Unknown Verified 03/10/21 07:41 [place] And Derivatives AdvReac Intermediate Abdominal Verified 03/10/21 07:41 pain (citrus juice) tomato AdvReac Intermediate Headache Verified 03/10/21 07:41 (tomato juice) colchicine AdvReac Mild GI upset Verified 03/10/21 07:41 morphine AdvReac Unknown "out of Verified 03/10/21 07:41 it" x days Home Meds Home Medications Medication Instructions Recorded Confirmed allopurinol 300 mg tablet 300 mg PO QAM #90 tab 01/05/19 03/10/21 atorvastatin 40 mg tablet 40 mg PO HS #90 tab 01/05/19 03/10/21 clopidogrel 75 mg tablet 75 mg PO QAM #30 tab 01/05/19 03/10/21 cholecalciferol (vitamin D3) 50 2,000 unit PO QAM 03/24/19 03/10/21 mcg (2,000 unit) tablet (Vitamin D3) ipratropium 20 mcg-albuterol 100 1 puff INHALATION BID PRN 03/24/19 03/10/21 mcg/actuation mist for inhalation (Combivent Respimat) magnesium oxide 400 mg PO BID 03/24/19 03/10/21 multivit with minerals-folic 1 tab PO QAM 03/24/19 03/10/21 acid-lycopene 0.4 mg-600 mcg tablet (Men's Daily Multivitamin-Mineral) ondansetron HCl 4 mg tablet 4 mg PO Q8H PRN 03/24/19 03/10/21 (Zofran) prednisone 5 mg tablet 5 mg PO QAM 03/24/19 03/10/21 ferrous sulfate 325 mg (65 mg 325 mg PO QAM 09/17/19 03/10/21 iron) tablet docusate sodium 100 mg tablet 200 mg PO BID PRN 06/06/20 03/10/21 finasteride 5 mg tablet 5 mg PO QAM 06/06/20 03/10/21 melatonin 1 mg tablet 4 mg PO HS 06/06/20 03/10/21 saliva substitute combo no.9 5 ml PO DAILY 06/06/20 03/10/21 (Biotene Dry Mouth Oral Rinse) furosemide 40 mg tablet 40 mg PO QAM 06/22/20 03/10/21 mirabegron 50 mg tablet,extended 50 mg PO QAM 06/22/20 03/10/21 release 24 hr (Myrbetriq) amlodipine 2.5 mg tablet 2.5 mg PO QAM 10/27/20 03/10/21 furosemide 20 mg tablet 20 mg PO DAILY 10/27/20 03/10/21 polyethylene glycol 3350 17 17 g PO DAILY PRN 10/27/20 03/10/21 gram/dose oral powder (Miralax) chlorpheniramine-acetaminophen 2 1 tab PO UD PRN 01/04/21 03/10/21 mg-325 mg tablet (Coricidin HBP Cold and Flu) levothyroxine 75 mcg tablet 75 mcg PO QAM 01/04/21 03/10/21 lidocaine 1.8 % topical patch 1 patch TOPICAL DAILY PRN 01/04/21 03/10/21 metoprolol succinate 25 mg 25 mg PO DAILY 01/04/21 03/10/21 tablet,extended release 24 hr guaifenesin 600 mg tablet, 600 mg PO BID 01/06/21 03/10/21 extended release 12 hr (Mucinex) mirtazapine 15 mg tablet (Remeron) 7.5 mg PO HS 01/06/21 03/10/21 acetaminophen 160 mg/5 mL oral 640 mg PO QID PRN 03/10/21 03/10/21 liquid amoxicillin 500 mg capsule 2,000 mg PO ONCE 03/10/21 03/10/21 azithromycin 250 mg tablet 250 mg PO DAILY 03/10/21 03/10/21 fluticasone propionate 250 1 inh INHALATION BID 03/10/21 03/10/21 mcg/actuation blister powder for inhalation (Flovent Diskus) gabapentin 300 mg capsule 300 mg PO TID 03/10/21 03/10/21 ipratropium 0.5 mg-albuterol 3 mg 3 ml INHALATION Q4H PRN 03/10/21 03/10/21 (2.5 mg base)/3 mL nebulization soln loperamide 2 mg capsule 2 mg PO Q4H PRN 03/10/21 03/10/21 menthol 0.44 %-zinc oxide 20.6 % 1 applic TOPICAL TID 03/10/21 03/10/21 topical ointment (Calmoseptine) tamsulosin 0.4 mg capsule 0.4 mg PO HS 03/10/21 03/10/21 white petrolatum 43 % topical 1 applic TOPICAL DAILY PRN 03/10/21 03/10/21 ointment (Aloe [place] Protectant Ointment) Previous Rx's Medication Instructions Recorded tramadol 50 mg tablet 50 mg PO Q6H PRN #12 tab 01/06/21 Results & Data (ED) Vital Signs Vital Signs - 24 hr 03/10/21 03:48 03/10/21 05:23 03/10/21 05:44 Temperature 36.6 C Temperature Source Oral Pulse Rate 90 97 H Pulse Rate [Finger] 90 Pulse Rate from SpO2 Sensor 97 H Respiratory Rate 16 16 20 Blood Pressure 145/92 H Blood Pressure [Left Arm] 165/103 H Blood Pressure Mean 109 Blood Pressure Mean [Left Arm] 123 Pulse Oximetry 95 92 93 Oxygen Delivery Method Nasal Cannula Oxygen Flow Rate 2 2 2 Sepsis Recent Fever Within 48 Hours No Sepsis New/Unexplained Change in Mental Status No Sepsis Action Taken by Nursing No Action Required 03/10/21 06:00 03/10/21 07:00 Temperature Temperature Source Pulse Rate 96 H Pulse Rate [Finger] 93 H Pulse Rate from SpO2 Sensor 96 H Respiratory Rate 22 18 Blood Pressure 144/85 H Blood Pressure [Left Arm] 147/90 H Blood Pressure Mean 104 Blood Pressure Mean [Left Arm] 109 Pulse Oximetry 92 96 Oxygen Delivery Method Room Air Oxygen Flow Rate 2 Sepsis Recent Fever Within 48 Hours Sepsis New/Unexplained Change in Mental Status Sepsis Action Taken by Nursing Laboratory Data Result diagrams: 03/10/21 Unknown 03/10/21 Unknown Lab Results 03/10/21 03/10/21 03/10/21 Range/Units 04:30 04:30 04:30 Lactate (0.4-2.0) mmol/L Ammonia 11.0 (11-32) umol/L Procalcitonin 0.13 (0-0.5) ng/ml SARS-CoV-2, RNA, NAAT NEGATIVE (NEGATIVE) 03/10/21 Range/Units 07:15 Lactate 1.9 (0.4-2.0) mmol/L Ammonia (11-32) umol/L Procalcitonin (0-0.5) ng/ml SARS-CoV-2, RNA, NAAT (NEGATIVE) Administered Medications Albuterol (Albut/Ipratrop 3mg/0.5mg Neb 3 Ml Vial) 3 ml NEB Q4R DIOMEDES Stop: 04/09/21 11:02 Last Admin: 03/10/21 19:58 Dose: 3 ml Documented by: [id number] Admin: 03/10/21 14:57 Dose: 3 ml Documented by: [id number] Admin: 03/10/21 11:54 Dose: 3 ml Documented by: [id number] Calamine/Phenol (Menthol-Zinc Oxide 360 Appln/120 Gm Tube) 1 appln EXT TID DIOMEDES Stop: 04/09/21 13:59 Last Admin: 03/10/21 19:03 Dose: Not Given Documented by: [id number] Fluticasone Furoate (Fluticasone Furoate 100mcg 14 Puffs/Inhaler) 1 puffs INH DAILY DIOMEDES Stop: 04/09/21 13:59 Last Admin: 03/10/21 16:37 Dose: 1 puffs Documented by: [id number] Gabapentin (Gabapentin 300 Mg Cap) 300 mg PO TID DIOMEDES Stop: 04/09/21 13:59 Last Admin: 03/10/21 14:46 Dose: 300 mg Documented by: [id number] Sodium Chloride (Nss 1000ml) 1,000 mls @ 60 mls/hr IV .[id number] [facility] Stop: 03/11/21 03:42 Last Admin: 03/10/21 11:55 Dose: 60 mls/hr Documented by: [id number] Piperacillin Sod/Tazobactam (Sod 3.375 gm/ Dextrose) 115 mls @ 28.75 mls/hr IV Q8H [facility]; Protocol Stop: 03/17/21 15:59 Last Infusion: 03/10/21 20:24 Dose: 0 mls/hr Documented by: [id number] Admin: 03/10/21 16:37 Dose: 28.8 mls/hr Documented by: [id number] Insulin Aspart (Insulin Aspart 100 Units/Ml 3 Ml Pen) 0 units SC ACHS [facility] Stop: 04/09/21 11:29 Last Admin: 03/10/21 21:06 Dose: Not Given Documented by: [id number] Cosigned by: [id number] Admin: 03/10/21 18:11 Dose: Not Given Documented by: [id number] Cosigned by: [id number] Admin: 03/10/21 13:35 Dose: Not Given Documented by: [id number] Cosigned by: [id number] Discontinued Medications Ceftriaxone Sodium (Rocephin) 1,000 mg in 50 mls @ 100 mls/hr IV NOW STA Stop: 03/10/21 06:50 Last Infusion: 03/10/21 08:05 Dose: 0 mls/hr Documented by: [id number] Admin: 03/10/21 07:35 Dose: 100 mls/hr Documented by: [id number] Vancomycin HCl 2,000 mg/ (Sodium Chloride) 540 mls @ 200 mls/hr IV ONE ONE Stop: 03/10/21 11:56 Last Infusion: 03/10/21 17:43 Dose: 0 mls/hr Documented by: [id number] Admin: 03/10/21 10:33 Dose: 200 mls/hr Documented by: [id number] Piperacillin Sod/Tazobactam (Sod 4.5 gm/ Dextrose) 120 mls @ 200 mls/hr IV NOW STA; Protocol Stop: 03/10/21 09:47 Last Infusion: 03/10/21 10:24 Dose: 0 mls/hr Documented by: [id number] Admin: 03/10/21 09:46 Dose: 200 mls/hr Documented by: [id number] Miscellaneous (Patient's Height And/Or Weight Needed) 1 ea N/A Q1H DIOMEDES Stop: 04/09/21 09:29 Last Admin: 03/10/21 17:43 Dose: Not Given Documented by: [id number] Admin: 03/10/21 11:07 Dose: 1 ea Documented by: [id number] Discharge Plan Visit Data Chief Complaint: Altered Mental Status Stated Complaint: altered mental status ED Provider: Katie Gutierrez Discharge Problem: Bilateral pneumonia, Elevated troponin, Acute encephalopathy Discharge Problem: Bilateral pneumonia Qualifiers: Pneumonia type: due to unspecified organism Lung location: unspecified part of lung Qualified Code(s): J18.9 - Pneumonia, unspecified organism
[2021-03-10 04:50] LABS: Alanine Aminotransferase 32 U/L (12-78); Aspartate Aminotransferase 17 U/L (15-37); BUN Creatinine Ratio 15.7 (10-20); Blood Urea Nitrogen 26 mg/dl (7-18); Calcium 8.9 mg/dl (8.5-10.1); Carbon Dioxide 33 mmol/L (21-32); Chloride 103 mmol/L (98-107); Est GFR (African American) 41.7 ml/min; Glucose 127 mg/dl (70-99); Magnesium 2.4 mg/dl (1.8-2.4); Potassium 3.8 mmol/L (3.5-5.1); Sodium 140 mmol/L (136-145)
[2021-03-10 05:14] LABS: Albumin Globulin Ratio 0.7 (0.9-2); Alkaline Phosphatase 120 U/L (45-117); Bilirubin,Total 0.5 mg/dl (0.2-1); Globulin 4.4 gm/dl (2.5-4.0); Total Protein 7.4 gm/dl (6.4-8.2); Troponin I 0.081 ng/ml (0-0.045)
[2021-03-10] MEDS ORDERED: cefTRIAXone SODIUM 1,000 MG/50 ML BAG IV STA (06:21)
--- NOTE | 2021-03-10 07:24 | XRay Report ---
XR chest 1V portable CLINICAL HISTORY: weakness TECHNIQUE: Single frontal radiograph of the chest was obtained. Comparison: Comparison is made to MRI chest 06/21/2020 FINDINGS: No lines and tubes are seen. Cardiomegaly is noted. Right greater than left airspace opacities are se en. No evidence of pleural effusion or pneumothorax. IMPRESSION: Multifocal airspace opacities are seen, right greater than left. Cardiomegaly. ACT 112: Negative or not required by law. Electronically signed by: Nicho Elizabeth M.D. 03/10/2021 7:23 AM
[2021-03-10] MEDS ORDERED: PIPERACILL/TAZOBAC CONSULT ACTIVE PRN (08:27)
[2021-03-10] MEDS ORDERED: VANCOMYCIN CONSULT ACTIVE PRN (08:27)
[2021-03-10] MEDS ORDERED: PIPERACILLIN/TAZOBACTAM 3.375 GM in DEXTROSE 5% 100 ML IV SCH (08:30)
--- NOTE | 2021-03-10 08:50 | History & Physical Report ---
Date of Service March 10, 2021 Assessment & Plan (1) Multifocal pneumonia: Plan: - Admit to med surg with tele - supportive care, pulmonary toilet, on steroids at baseline -We will treat broad-spectrum with Vanco and Zosyn IV for now, follow MRSA nasal swab results - CXR reviewed - COVID neg - procal 0.13, lactate was 1.9 - Admit to med surg with tele - Sputum culture, mucinex, duonebs QID and Q2H prn - Wean O2 prn - currently on 3 L, wears O2 HS but not during the day - BCx x 2, follow (2) Encephalopathy: Plan: - Change in mental status per nursing staff at personal correction - Likely secondary to acute pneumonia as above, will rule out other infectious causes/ Leukocytosis 12.10, afebrile since here in the ER, neg COVID on admission. - Antibiotics as above - Will hold tramadol for possible increased confusion, if improves then allow him to have this med again. (3) COPD (chronic obstructive pulmonary disease): Plan: - Duonebs q4H and q2H prn SOB ordered, sputum culture, pt currently maintained on chronic prednisone 5 mg daily at baseline, no additional steroids at this time - Continue combivent inh and albuterol nebs as above (4) Chronic diastolic heart failure: Plan: - Hx of aflutter that was previously converted with diltiazem - not anticoagulated due to fall risk - Last echo 09/09/20 showing EF of 60 to 64%, LV wall thickness moderately increased, concentric, s/p TAVR with CoreValve prosthesis valve, mild perivalvular aortic valve prosthesis regurg, mild tricuspid regurg, mild pulmonary hypertension, estimated pulmonary artery systolic pressure of 40 to 45 mmHg. -Troponin elevated at 0.077-->0.081, no cardiac sx, low suspicion for ACS, EKG without acute changes. -EKG prn (5) Acute kidney injury superimposed on CKD: Plan: - Cr. 1.66 on admission, appears baseline is ~ 1.2-1.4 - NSS at 60 ml/hr x 1 bag due to hx of CHF, holding lasix for now - Avoid nephrotoxins and renally reduce medications - Follow with a.m. labs - Troponin is flat, likely secondary to demand ischemia at this time vs ACS. (6) Peripheral vascular disease: Plan: - Hx of such, continue home medications DVT - teds, scds CODE: Full code I have called pts daughter, Amena Garnett to discuss the patients care and left a message on her voicemail. Await return call back. Pt to remain full code for now unles otherwise specified. Dispo: From home, likely to remain in the hospital x 2 days. CM to assist with dc planning. History of Present Illness Primary Care Provider: [facility], [facility] This is an 89-year-old male with PMHx of COPD, PAD, aortic stenosis, chronic diastolic CHF, HTN, CKD stage III, a flutter, rheumatoid arthritis on long-term steroids who presents today from [facility] because of altered mental status and increased weakness. The patient notes that he has had increased coughing sometimes with expectorant (green, yellow, no blood) and does not feel himself, denies any specific fever chills or sweats. He reports eating and drinking without difficulty, denies choking on food or liquids going down his windpipe. His mouth is dry all the time and uses a spray to help moisturize it. He reports being able to walk/transfer somewhat but then reports that he is in a wheelchair most of the time. Denies any recent falls. His emergency contact is Amena Garnett, and says that we should call her with any updates. Per review of records, he was started on azithromycin on 03/08 x 4 days and Mucinex on 03/07 x 7 days. He does not specifically recall this and is unable to answer specific medication questions. Allergies Allergy/AdvReac Type Severity Reaction Status Date / Time iodine Allergy Unknown Unknown Verified 03/10/21 07:41 [place] [employer] AdvReac Intermediate Abdominal Verified 03/10/21 07:41 pain (citrus juice) tomato AdvReac Intermediate Headache Verified 03/10/21 07:41 (tomato juice) colchicine AdvReac Mild GI upset Verified 03/10/21 07:41 morphine AdvReac Unknown "out of Verified 03/10/21 07:41 it" x days Home Medications Medication Instructions Recorded Confirmed Type allopurinol 300 mg tablet 300 mg PO QAM #90 tab 01/05/19 03/10/21 History atorvastatin 40 mg tablet 40 mg PO HS #90 tab 01/05/19 03/10/21 History clopidogrel 75 mg tablet 75 mg PO QAM #30 tab 01/05/19 03/10/21 History cholecalciferol (vitamin D3) 50 2,000 unit PO QAM 03/24/19 03/10/21 History mcg (2,000 unit) tablet (Vitamin D3) ipratropium 20 mcg-albuterol 100 1 puff INHALATION BID PRN 03/24/19 03/10/21 History mcg/actuation mist for inhalation (Combivent Respimat) magnesium oxide 400 mg PO BID 03/24/19 03/10/21 History multivit with minerals-folic 1 tab PO QAM 03/24/19 03/10/21 History acid-lycopene 0.4 mg-600 mcg tablet (Men's Daily Multivitamin-Mineral) ondansetron HCl 4 mg tablet 4 mg PO Q8H PRN 03/24/19 03/10/21 History (Zofran) prednisone 5 mg tablet 5 mg PO QAM 03/24/19 03/10/21 History ferrous sulfate 325 mg (65 mg 325 mg PO QAM 09/17/19 03/10/21 History iron) tablet docusate sodium 100 mg tablet 200 mg PO BID PRN 06/06/20 03/10/21 History finasteride 5 mg tablet 5 mg PO QAM 06/06/20 03/10/21 History melatonin 1 mg tablet 4 mg PO HS 06/06/20 03/10/21 History saliva substitute combo no.9 5 ml PO DAILY 06/06/20 03/10/21 History (Biotene Dry Mouth Oral Rinse) furosemide 40 mg tablet 40 mg PO QAM 06/22/20 03/10/21 History mirabegron 50 mg tablet,extended 50 mg PO QAM 06/22/20 03/10/21 History release 24 hr (Myrbetriq) amlodipine 2.5 mg tablet 2.5 mg PO QAM 10/27/20 03/10/21 History furosemide 20 mg tablet 20 mg PO DAILY 10/27/20 03/10/21 History polyethylene glycol 3350 17 17 g PO DAILY PRN 10/27/20 03/10/21 History gram/dose oral powder (Miralax) chlorpheniramine-acetaminophen 2 1 tab PO UD PRN 01/04/21 03/10/21 History mg-325 mg tablet (Coricidin HBP Cold and Flu) levothyroxine 75 mcg tablet 75 mcg PO QAM 01/04/21 03/10/21 History lidocaine 1.8 % topical patch 1 patch TOPICAL DAILY PRN 01/04/21 03/10/21 History metoprolol succinate 25 mg 25 mg PO DAILY 01/04/21 03/10/21 History tablet,extended release 24 hr guaifenesin 600 mg tablet, 600 mg PO BID 01/06/21 03/10/21 History extended release 12 hr (Mucinex) mirtazapine 15 mg tablet (Remeron) 7.5 mg PO HS 01/06/21 03/10/21 History tramadol 50 mg tablet 50 mg PO Q6H PRN #12 tab 01/06/21 03/10/21 Rx acetaminophen 160 mg/5 mL oral 640 mg PO QID PRN 03/10/21 03/10/21 History liquid amoxicillin 500 mg capsule 2,000 mg PO ONCE 03/10/21 03/10/21 History azithromycin 250 mg tablet 250 mg PO DAILY 03/10/21 03/10/21 History fluticasone propionate 250 1 inh INHALATION BID 03/10/21 03/10/21 History mcg/actuation blister powder for inhalation (Flovent Diskus) gabapentin 300 mg capsule 300 mg PO TID 03/10/21 03/10/21 History ipratropium 0.5 mg-albuterol 3 mg 3 ml INHALATION Q4H PRN 03/10/21 03/10/21 History (2.5 mg base)/3 mL nebulization soln loperamide 2 mg capsule 2 mg PO Q4H PRN 03/10/21 03/10/21 History menthol 0.44 %-zinc oxide 20.6 % 1 applic TOPICAL TID 03/10/21 03/10/21 History topical ointment (Calmoseptine) tamsulosin 0.4 mg capsule 0.4 mg PO HS 03/10/21 03/10/21 History white petrolatum 43 % topical 1 applic TOPICAL DAILY PRN 03/10/21 03/10/21 History ointment (Aloe [place] Protectant Ointment) Past Med/Surg History Medical History (Updated 03/10/21 @ 08:43 by Yuko Quintana PA-C) Anemia Aortic stenosis Severe aortic stenosis (FCO 0.6-0.63cm2, MG 38.2mmhg) per 03/2019 echo > TAVR (07/2020), echo done 08/2020 BPH (benign prostatic hypertrophy) BPH with obstruction/lower urinary tract symptoms Chronic diastolic heart failure Chronic venous insufficiency CKD (chronic kidney disease), stage III COPD (chronic obstructive pulmonary disease) Dyslipidemia Elevated PSA Esophageal dysmotility GERD (gastroesophageal reflux disease) Gout H/O atrial flutter Post-op (2013)- converted to SR with IV diltiazem Hiatal hernia History of duodenal ulcer History of kidney stones Hypertension Neuropathy Nocturnal hypoxemia 2L O2 HS Osteoarthritis Osteoporosis Peripheral vascular disease s/p angioplasty of right posterior tibial artery Psoriatic arthritis Renal lesion Umbilical hernia Urinary incontinence Urinary retention Surgical History Amputation of toe R/L second toe Family history of reaction to anesthesia Daughter- N/V History of angioplasty of peripheral vessel History of cataract surgery R/L History of colonoscopy History of esophagogastroduodenoscopy (EGD) History of lithotripsy History of lumbar fusion History of tooth extraction 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 Status post endovenous radiofrequency ablation of saphenous vein Family History Mother Colorectal cancer Sister Breast cancer Lung cancer Father Parkinson disease Brother Nephrolithiasis Social History Smoking Status: Unknown if ever smoked Tobacco Type: Cigarettes Second Hand Exposure: No; Hx Alcohol Use: No Hx Substance Use: No Preferred Language: [place] Communication Ability: Effective Visual Impairment: No Limitations Hearing Ability: Normal 8Th Grade Teacher Required: No Beliefs That Will Affect Care: None marital status: / Current Living Situation: Group Home Current Living Situation Comment: [facility] current occupational status: retired other: walks with walker Feels Safe at Home: Yes Assistive Devices: Walker Review of Systems Review of Systems: Constitutional: No fever, sweats or chills Eyes: No diplopia, no worsening or blurred vision ENT: normal hearing, no trouble swallowing Respiratory: + Cough, + sputum, + dyspnea on exertion Cardiovascular: No chest pain, tightness or palpitations Abdomen: No pain, nausea, vomiting, diarrhea or constipation Musculoskeletal: No joint pain, calf pain, swelling Neurologic: No weakness, numbness/tingling, + balance problems, uses wheelchair Psychiatric: No anxiety or depression Skin: No rash or itch Physical Exam Physical Exam: General: awake, alert, no apparent distress Head: Normocephalic, atraumatic ENT: PERRL, EOMI, no pharyngeal exudate, endentulous, mucous membranes dry Chest: diminished breath sounds throughout and nearly absent at bases, wet cough, no wheeze or rhonchi Cardiac: Sinus tach, faint systolic murmur, no JVD, normal peripheral pulses, good capillary refill Abdominal: NABS x 4 quadrants, obese, soft, nondistended, nontender to palpation, no rebound or guarding Extremities: Chronic venous stasis changes, no peripheral edema or erythema, calfs nontender to palpation Psych: Normal mood and affect Neuro: AA, oriented to self and place, not time, strength intact bilaterally and rated 4/5, no motor deficits, speech is clear, no peripheral sensory deficits Results & Data Results & Data ([facility]) Vital Signs (Past 12 Hours) Vital Signs Temp Pulse Pulse Resp BP BP Pulse Ox 03/10/21 07:46 96 03/10/21 07:00 93 H 18 147/90 H 96 03/10/21 06:00 96 H 22 144/85 H 92 03/10/21 05:44 97 H 20 93 03/10/21 05:23 90 16 165/103 H 92 03/10/21 03:48 36.6 C 90 16 145/92 H 95 Diagnostic Findings Chest X-Ray 03/10/21 04:17 XR chest 1V portable CLINICAL HISTORY: weakness TECHNIQUE: Single frontal radiograph of the chest was obtained. Comparison: Comparison is made to MRI chest 06/21/2020 FINDINGS: No lines and tubes are seen. Cardiomegaly is noted. Right greater than left airspace opacities are seen. No evidence of pleural effusion or pneumothorax. IMPRESSION: Multifocal airspace opacities are seen, right greater than left. Cardiomegaly. ACT 112: Negative or not required by law. Electronically signed by: Nicho Elizabeth M.D. 03/10/2021 7:23 AM ECG Additional Comments: Vent. Rate : 085 BPM Atrial Rate : 085 BPM P-R Int : 280 ms QRS Dur : 116 ms QT Int : 402 ms P-R-T Axes : 000 -48 029 degrees QTc Int : 478 ms Sinus rhythm with 1st degree A-V block Left anterior fascicular block Abnormal ECG When compared with ECG of 21-JUN-2020 20:21, VA interval has increased Code Status & VTE Plan Code Status Full code VTE Prophylaxis Plan VTE Prophylaxis will be ordered: Yes Supervising Physician Co-Signing Physician Notes Pt is a 89 y/o M with hx of COPD on nocturnal oxygen (2L), s/p TAVR, PAD, CKD III, HTN, HLD, HFpEF, Psoriatic arthritis, Anemia, CAD, BPH admitted for AMS and pneumonia. Cardiac cath (07/2020)-mLAD has 50% stenosis. Mild disease present in other coronary arteries. Exam: Mild Respiratory distress, NC in place Lungs: b/l decreased BS with inspiratory wheezing and rales (more in the lower lobes) Cardiac: Normal S1/S2, no murmur Abd: ND, soft and NT LE: trace pitting edema b/l LE Psych: AAOx2 (not oriented to place and date) A/P: AMS 2/2 encephalopathy from Pneumonia -since pt lives in a care home will do empiric treatment with vanc and zosyn -for now c/w oxygen supplement and wean as pt tolerates - Will do mucinex and possible Flutter valve vs percussion vest -sputum Culture, and BCx pending -CT head: no acute finding Tropinemia: -2/2 demand ischemia -pt had hx of elevated trop in the past - Cardiac cath (07/2020)-mLAD has 50% stenosis. Mild disease present in other coronary arteries. MAXI on CKD: -2/2 Infection and possible dehydration (pt appeared dry) -holding Lasix -s/p fluids -will trend BMP Other plans agree with Yuko Quintana PA-C
[2021-03-10] MEDS ORDERED: VANCOMYCIN HCL 500 MG in SODIUM CHLORIDE 0.9% 250 ML IV SCH (09:00)
[2021-03-10] MEDS ORDERED: PIPERACILLIN/TAZOBACTAM 4.5 GM in DEXTROSE 5% 100 ML IV STA (09:12)
[2021-03-10] MEDS ORDERED: VANCOMYCIN HCL 2,000 MG in SODIUM CHLORIDE 0.9% 500 ML IV ONE (09:15)
--- NOTE | 2021-03-10 09:42 | CT Scan Report ---
HEAD CT NONCONTRAST CT DOSE: 668.57 mGycm HISTORY: Encephalopathy TECHNIQUE: Multiaxial CT images of the head were performed without the use of intravenous contrast. A utomated exposure control was utilized for this study. A dose lowering technique was utilized adheri ng to the principles of ALARA. Comparison: Head CT 10/27/2020. Findings: The paranasal sinuses and mastoid air cells are clear. The calvarium and skull base are int act. There is no mass, hematoma, midline shift, acute infarct. White matter hypodensity is nonspecifi c but suggestive of microvascular ischemic change. The ventricles and sulci demonstrate mild age-rela pat involutional changes. Impression: No significant change compared to the prior study. No acute intracranial abnormality. ACT 112: Negative or not required by law. Electronically signed by: Roberto Berger M.D. 03/10/2021 9:40 AM
[2021-03-10] MEDS ORDERED: IPRATROPIUM BROMIDE/ALBUTEROL respimat INH INH PRN (11:03)
[2021-03-10] MEDS ORDERED: DEXTROSE 50% 50 ML SYRINGE IV PRN (11:03)
[2021-03-10] MEDS ORDERED: GLUCOSE 40% GEL 15 GM TUBE PO PRN (11:03)
[2021-03-10] MEDS ORDERED: POLYETHYLENE (MIRALAX) 17 GM PACK PO PRN (11:03)
[2021-03-10] MEDS ORDERED: ACETAMINOPHEN 325 MG TAB PO PRN (11:03)
[2021-03-10] MEDS ORDERED: GLUCAGON FOR INJ 1 MG VIAL SQ PRN (11:03)
[2021-03-10] MEDS ORDERED: CARBOHYDRATES FOR HYPOGLYCEMIA PO PRN (11:03)
[2021-03-10] MEDS ORDERED: DOCUSATE SODIUM 100 MG CAP PO PRN (11:03)
[2021-03-10] MEDS ORDERED: SODIUM CHLORIDE 0.9% 1000ML 1,000 ML IV SCH (11:03)
[2021-03-10] MEDS ORDERED: GLUCOSE 10 TABS/TUBE PO PRN (11:03)
[2021-03-10] MEDS ORDERED: ACETAMINOPHEN 160 MG/5 ML PO PRN (11:03)
[2021-03-10] MEDS ORDERED: ONDANSETRON INJ 2 MG/ML 2 ML VIAL IV PRN (11:03)
[2021-03-10] MEDS: PATIENT'S HEIGHT AND/OR WEIGHT NEEDED SCH ×2 (11:07→17:43)
[2021-03-10] MEDS ORDERED: Ipratropium HFA Inhaler (Combivent Respimat P&T Subs) INH PRN (11:43)
[2021-03-10] MEDS ORDERED: Albuterol HFA 8 GM Inhaler (Combivent Respimat P&T Subs) INH PRN (11:43)
--- NOTE | 2021-03-10 11:51 | Pharmacy Report ---
Pharmacy [facility] Short Note - Date of Service March 10, 2021 - Assessment & Plan Assessment 89 year old M receiving vancomycin and zosyn IV for treatment of multifocal pneumonia. Patient presents from personal care facility. PMHx significant for COPD and CKD. BCx pending. MRSA nasal pending. MAXI on chronic kidney injury (SCR 1.66); baseline ~ 1.2mg/dL. Day #1 of antimicrobial therapy. Plan Vancomycin * S/p vancomycin load of 2gm this AM * Due to MAXI, plan to dose by levels until renal function recovers * Random level with AM labs tomorrow - will re-dose if <20mg/dL. * F/u MRSA nasal Zosyn extended interval: 3.375gm IV q8h for CrCL >20mL/min Pharmacy will continue to follow and will adjust dose/frequency as necessary. Thank you.
[2021-03-10] MEDS: ALBUT/IPRATROP 3MG/0.5MG NEB 3 ML VIAL NEB SCH ×4 (11:54→23:34)
[2021-03-10] MEDS: INSULIN ASPART 100 UNITS/ML 3 ML PEN SC SCH ×3 (13:35→21:06)
[2021-03-10] MEDS: GABAPENTIN 300 MG CAP PO SCH ×2 (14:46→22:14)
[2021-03-10] MEDS: FLUTICASONE FUROATE 100MCG 14 PUFFS/INHALER INH SCH (16:37)
[2021-03-10] MEDS: PIPERACILLIN/TAZOBACTAM 3.375 GM in DEXTROSE 5% 100 ML IV SCH ×2 (16:37→23:57)
--- NOTE | 2021-03-10 18:29 | Electrocardiogram Report ---
Test Reason : Blood Pressure : / mmHG Vent. Rate : 096 BPM Atrial Rate : 096 BPM P-R Int : 184 ms QRS Dur : 120 ms QT Int : 392 ms P-R-T Axes : -53 -43 047 degrees QTc Int : 495 ms Poor data quality, interpretation may be adversely affected Sinus rhythm with 1st degree A-V block Non-specific intra-ventricular conduction delay Abnormal ECG When compared with ECG of 27-OCT-2020 09:22, No significant change Confirmed by Hermilo Dent ([id number]) on 03/10/2021 6:29:07 PM Referred By: José Aguilar [place] Confirmed By:Hermilo Dent
--- NOTE | 2021-03-10 18:48 | Communication Note ---
Date of Service: March 10, 2021 spoke to pt's Daughter (Amena: [phone]) - pt is DNR/DNI
[2021-03-10] MEDS: MENTHOL-ZINC OXIDE 360 APPLN/120 GM TUBE EXT SCH ×2 (19:03→22:15)
[2021-03-10] MEDS ORDERED: MIRTAZAPINE TAB 15 MG TAB PO SCH (21:00)
[2021-03-10] MEDS ORDERED: MELATONIN 3 MG TAB PO SCH (21:00)
[2021-03-10] MEDS ORDERED: FLUTICASONE FUROATE 100MCG 14 PUFFS/INHALER INH SCH (21:00)
[2021-03-10] MEDS: ATORVASTATIN 40 MG TAB PO SCH (22:14)
[2021-03-10] MEDS: MAGNESIUM OXIDE 400 MG TAB PO SCH (22:14)
[2021-03-10] MEDS: guaiFENesin 600 MG TABCR PO SCH (22:14)
[2021-03-10] MEDS: TAMSULOSIN HCL 0.4 MG CAP PO SCH (22:15)
[2021-03-11] MEDS ORDERED: METOPROLOL TARTRATE 1 MG/ML VIAL IV SCH
[2021-03-11 02:39] LABS: Base Excess VBG 4.9 mEq/L; HCO3 VBG 32 mmol/L; Oxygen Saturation VBG < 60.0 %; PCO2 VBG 56 mmHg (38-50); PO2 VBG 32 mmHg; pH VBG 7.37 (7.36-7.41)
[2021-03-11 02:53] LABS: Creatinine Clr Calc Pharmacy 39.2 ml/min; Est GFR (African American) 50.8 ml/min; Est GFR (Non-African American) 43.9 ml/min
[2021-03-11] MEDS: LEVOTHYROXINE SODIUM 75 MCG TABLET PO SCH (06:23)
[2021-03-11] MEDS ORDERED: XOPENEX/ATROVENT 1.25mg/0.5MG NEB COMBO NEB SCH (07:00)
[2021-03-11] MEDS: IPRATROPIUM BROMIDE NEB SOLN 0.02% 2.5 ML VIAL INH SCH ×3 (07:21→19:57)
[2021-03-11] MEDS: LEVALBUTEROL 1.25MG/0.5ML NEB INH SCH ×3 (07:21→19:57)
[2021-03-11] MEDS: ALBUT/IPRATROP 3MG/0.5MG NEB 3 ML VIAL NEB SCH (07:44)
[2021-03-11] MEDS: FLUTICASONE FUROATE 100MCG 14 PUFFS/INHALER INH SCH (07:55)
[2021-03-11] MEDS: guaiFENesin 600 MG TABCR PO SCH ×2 (07:56→20:21)
[2021-03-11] MEDS: FERROUS SULFATE 325 MG TAB PO SCH (07:56)
[2021-03-11] MEDS: FINASTERIDE 5 MG TAB PO SCH (07:56)
[2021-03-11] MEDS: CLOPIDOGREL BISULFATE 75 MG TAB PO SCH (07:56)
[2021-03-11] MEDS: CEROVITE ADV FORMULA TAB PO SCH (07:56)
[2021-03-11] MEDS: MIRABEGRON ER 25 MG TAB PO SCH (07:56)
[2021-03-11] MEDS: METOPROLOL SUCC 25MG EXT REL TAB PO SCH (07:56)
[2021-03-11] MEDS: predniSONE 5 MG TAB PO SCH (07:56)
[2021-03-11] MEDS: MENTHOL-ZINC OXIDE 360 APPLN/120 GM TUBE EXT SCH ×3 (07:57→20:21)
[2021-03-11] MEDS: allopurinoL 300 MG TAB PO SCH (07:57)
[2021-03-11] MEDS: amLODIPine BESYLATE 5 MG TAB PO SCH (07:57)
[2021-03-11] MEDS: CHOLECALCIFEROL 1,000 UNITS 25 MCG TAB PO SCH (07:57)
[2021-03-11] MEDS: MAGNESIUM OXIDE 400 MG TAB PO SCH ×2 (07:57→20:21)
[2021-03-11] MEDS: PIPERACILLIN/TAZOBACTAM 3.375 GM in DEXTROSE 5% 100 ML IV SCH ×2 (08:05→15:32)
[2021-03-11] MEDS: INSULIN ASPART 100 UNITS/ML 3 ML PEN SC SCH ×4 (08:15→20:32)
[2021-03-11] MEDS ORDERED: METOPROLOL SUCC 25MG EXT REL TAB PO SCH (09:00)
--- NOTE | 2021-03-11 09:03 | Pharmacy Report ---
Pharmacy Abx Dose Short Note - Date of Service March 11, 2021 - Assessment & Plan Assessment 89 year old M receiving vancomycin + zosyn for treatment of PNA Nasal MRSA + Day # 2 of antimicrobial therapy. Plan Vancomycin * Random level of 13.2 mcg/mL is subtherapeutic; indicating time to redose IV vancomycin. Scr trending downwards to baseline of 1.2-1.4. Will start scheduled maintenance dose * Vancomycin 1250 mg (13mg/kg) IV every 24 hours * Goal trough level for pulm : 15 to 20 mcg/mL * Trough level ordered for: 03/13/21 @ 0930 (note this is not yet steady state) Zosyn * Continue 3.375g IV Q8hrs for BMI < 35 & crcl > 20 Pharmacy will continue to follow and will adjust dose/frequency as necessary. Thank you.
[2021-03-11] MEDS: ACETAMINOPHEN 325 MG TAB PO PRN (09:52)
[2021-03-11] MEDS: HEPARIN SOD 5,000 UNIT/0.5 ML VIAL SQ SCH ×2 (11:25→21:31)
[2021-03-11] MEDS: VANCOMYCIN HCL 1,250 MG in SODIUM CHLORIDE 0.9% 250 ML IV SCH (11:31)
[2021-03-11] MEDS: ATORVASTATIN 40 MG TAB PO SCH (20:21)
[2021-03-11] MEDS: TAMSULOSIN HCL 0.4 MG CAP PO SCH (20:22)
--- NOTE | 2021-03-11 20:34 | Hospitalist Progress Note ---
Date of Service March 11, 2021 Assessment & Plan (1) Multifocal pneumonia: Plan: Multifocal pneumonia Hypoxia CXR:Multifocal airspace opacities are seen, right greater than left. Cardiomegaly. Procalcitonin 0.13 Cultures negative to date COVID neg Sputum culture normal leo Continue Vanco, Zosyn for now Continue supplemental oxygen as needed Nebs as needed (2) Encephalopathy: Plan: - Change in mental status per nursing staff at personal long-term -Likely metabolic encephalopathy -CT Head:No significant change compared to the prior study. No acute intrac ranial abnormality. Mental status seem to be back to baseline Continue reorient frequently to avoid delirium (3) COPD (chronic obstructive pulmonary disease): Plan: Chronic prednisone 5 mg daily at baseline Continue home inhalers, nebs (4) Chronic diastolic heart failure: Plan: H/O A.flutter Not anticoagulated due to fall risk -Last echo 09/09/20 showing EF of 60 to 64%, LV wall thickness moderately increased, concentric, s/p TAVR with CoreValve prosthesis valve, mild perivalvular aortic valve prosthesis regurg, mild tricuspid regurg, mild pulmonary hypertension, estimated pulmonary artery systolic pressure of 40 to 45 mmHg. -Troponin elevated at 0.077-->0.081 setting of CKD, likely demand ischemia -low suspicion for ACS, EKG without acute changes. Monitor volume status Resume home diuretics as able (5) Acute kidney injury superimposed on CKD: Plan: - Cr. 1.66 on admission, appears baseline is ~ 1.2-1.4 -Received gentle IV fluids Monitor volume status Avoid nephrotoxic agents as able (6) Peripheral vascular disease: Plan: continue home medications DVT Px Heparin SQ CODE: Full code Admission and Anticipated Discharge Date Admission Date: March 10, 2021 Subjective Patient is seen and examined at bedside Cough, dyspnea better today Mental status seem to be back to baseline Denies any chest pain, nausea, vomiting, abdominal pain Offers no other complaints Saturating low 90s on 2 L supplemental oxygen Review of Systems Review of Systems: All systems reviewed & are unremarkable except as noted in Subjective Physical Exam Physical Exam: Physical Exam: Vitals signs as noted above General Appearance:Moderately built and nourished, no apparent distress, Elderly Head: normocephalic, Atraumatic Eyes: normal inspection, EOMI Neck: supple, Trachea midline Respiratory/Chest: Decreased breath sounds, CTA Cardiovascular: S1, S2, No murmur Abdomen/GI:Soft, Non tender, Bowel sounds present Extremities/Musculoskeletal:normal inspection, Trace edema Neurologic/Psych:AAOX2, grossly no focal neurological deficits, +Hearing impairment Skin: normal color, warm Results & Data Results & Data ([facility]) Vital Signs (Past 12 Hours) Vital Signs Temp Pulse Pulse Resp BP Pulse Ox 03/11/21 20:00 96 H 25 H 89 L 03/11/21 19:22 36.5 C 93 H 20 166/90 H 92 03/11/21 16:11 36.7 C 86 20 146/76 H 90 03/11/21 15:06 90 03/11/21 12:47 82 20 93 03/11/21 11:39 36.9 C 90 20 136/81 90 Laboratory Results [facility] 03/11/21 02:28 Creatinine 1.41 H
[2021-03-12] MEDS: PIPERACILLIN/TAZOBACTAM 3.375 GM in DEXTROSE 5% 100 ML IV SCH ×4 (00:05→23:51)
[2021-03-12] MEDS: LEVALBUTEROL 1.25MG/0.5ML NEB INH SCH ×2 (00:14→07:15)
[2021-03-12] MEDS: IPRATROPIUM BROMIDE NEB SOLN 0.02% 2.5 ML VIAL INH SCH ×2 (00:14→07:15)
[2021-03-12] MEDS: ACETAMINOPHEN 325 MG TAB PO PRN ×2 (01:51→21:05)
[2021-03-12] MEDS: LEVOTHYROXINE SODIUM 75 MCG TABLET PO SCH (05:49)
[2021-03-12] MEDS: allopurinoL 300 MG TAB PO SCH (08:06)
[2021-03-12] MEDS: HEPARIN SOD 5,000 UNIT/0.5 ML VIAL SQ SCH ×2 (08:06→20:59)
[2021-03-12] MEDS: CEROVITE ADV FORMULA TAB PO SCH (08:06)
[2021-03-12 08:07] LABS: Hematocrit (blood only) 40.3 % (42-52); Hemoglobin 12.6 g/dL (14.0-18.0); Mean Corpuscular Hemoglobin 28.3 pg (25-34); Mean Corpuscular Hgb Conc 31.3 g/dL (32-36); Mean Corpuscular Volume 90.6 fL (80-100); Platelet Count 180 K/uL (130-400); RDW Coefficient of Variation 14.5 % (11.5-14.5); Red Blood Count 4.45 M/uL (4.7-6.1); White Blood Count 8.46 K/uL (4.8-10.8)
[2021-03-12] MEDS: amLODIPine BESYLATE 5 MG TAB PO SCH (08:07)
[2021-03-12] MEDS: CHOLECALCIFEROL 1,000 UNITS 25 MCG TAB PO SCH (08:07)
[2021-03-12] MEDS: guaiFENesin 600 MG TABCR PO SCH ×2 (08:07→20:59)
[2021-03-12] MEDS: CLOPIDOGREL BISULFATE 75 MG TAB PO SCH (08:07)
[2021-03-12] MEDS: METOPROLOL SUCC 25MG EXT REL TAB PO SCH (08:07)
[2021-03-12] MEDS: predniSONE 5 MG TAB PO SCH (08:07)
[2021-03-12] MEDS: FERROUS SULFATE 325 MG TAB PO SCH (08:07)
[2021-03-12] MEDS: FLUTICASONE FUROATE 100MCG 14 PUFFS/INHALER INH SCH (08:07)
[2021-03-12] MEDS: MIRABEGRON ER 25 MG TAB PO SCH (08:07)
[2021-03-12] MEDS: MENTHOL-ZINC OXIDE 360 APPLN/120 GM TUBE EXT SCH ×3 (08:08→20:59)
[2021-03-12] MEDS: FINASTERIDE 5 MG TAB PO SCH (08:08)
[2021-03-12] MEDS: MAGNESIUM OXIDE 400 MG TAB PO SCH ×2 (08:08→20:59)
[2021-03-12 08:39] LABS: BUN Creatinine Ratio 14.4 (10-20); Calcium 8.2 mg/dl (8.5-10.1); Est GFR (African American) 64.4 ml/min; Est GFR (Non-African American) 55.5 ml/min; Magnesium 2.3 mg/dl (1.8-2.4); Potassium 3.4 mmol/L (3.5-5.1)
[2021-03-12] MEDS ORDERED: POTASSIUM CHLORIDE CRTAB 20 MEQ TABCR PO ONE (08:44)
[2021-03-12] MEDS: INSULIN ASPART 100 UNITS/ML 3 ML PEN SC SCH ×4 (09:37→22:07)
[2021-03-12] MEDS ORDERED: IPRATROPIUM BROMIDE NEB SOLN 0.02% 2.5 ML VIAL INH PRN (10:36)
[2021-03-12] MEDS ORDERED: LEVALBUTEROL 1.25MG/0.5ML NEB INH PRN (10:36)
[2021-03-12] MEDS: VANCOMYCIN HCL 1,250 MG in SODIUM CHLORIDE 0.9% 250 ML IV SCH (11:49)
--- NOTE | 2021-03-12 18:38 | Hospitalist Progress Note ---
Date of Service March 12, 2021 Assessment & Plan (1) Multifocal pneumonia: Plan: Multifocal pneumonia Hypoxia CXR:Multifocal airspace opacities are seen, right greater than left. Cardiomegaly. Procalcitonin 0.13 COVID neg Positive MRSA screen Sputum culture normal leo Blood culture negative to date Continue Vanco, Zosyn for now Continue supplemental oxygen as needed Nebs as needed Saturating low 90s on room air De-escalate antibiotics tomorrow if cultures remain negative (2) Encephalopathy: Plan: - Change in mental status per nursing staff at personal custodial -Likely metabolic encephalopathy -CT Head:No significant change compared to the prior study. No acute intracranial abnormality. Mental status seem to be back to baseline Continue reorient frequently to avoid delirium (3) COPD (chronic obstructive pulmonary disease): Plan: Chronic prednisone 5 mg daily at baseline Continue home inhalers, nebs (4) Chronic diastolic heart failure: Plan: H/O A.flutter Not anticoagulated due to fall risk -Last echo 09/09/20 showing EF of 60 to 64%, LV wall thickness moderately increased, concentric, s/p TAVR with CoreValve prosthesis valve, mild perivalvular aortic valve prosthesis regurg, mild tricuspid regurg, mild pulmonary hypertension, estimated pulmonary artery systolic pressure of 40 to 45 mmHg. -Troponin elevated at 0.077-->0.081 setting of CKD, likely demand ischemia -low suspicion for ACS, EKG without acute changes. Monitor volume status Resume home diuretics as able (5) Acute kidney injury superimposed on CKD: Plan: - Cr. 1.66 on admission, appears baseline is ~ 1.2-1.4 -Received gentle IV fluids Monitor volume status Avoid nephrotoxic agents as able (6) Peripheral vascular disease: Plan: continue home medications DVT Px Heparin SQ CODE: Full code Disposition PT OT prior to discharge Admission and Anticipated Discharge Date Admission Date: March 10, 2021 Subjective Patient is seen and examined at bedside States feeling better today Saturating low 90s on room air Minimal cough Denies any significant dyspnea Also denies any chest pain, nausea, vomiting, abdominal pain Review of Systems Review of Systems: All systems reviewed & are unremarkable except as noted in Subjective Physical Exam Physical Exam: Physical Exam: Vitals signs as noted above General Appearance:Moderately built and nourished, no apparent distress, Elderly Head: normocephalic, Atraumatic Eyes: normal inspection, EOMI Neck: supple, Trachea midline Respiratory/Chest: Decreased breath sounds, CTA Cardiovascular: S1, S2, No murmur Abdomen/GI:Soft, Non tender, Bowel sounds present Extremities/Musculoskeletal:normal inspection, Trace edema Neurologic/Psych:AAOX2, grossly no focal neurological deficits, +Hearing impairment Skin: normal color, warm Results & Data Results & Data ([facility]) Vital Signs (Past 12 Hours) Vital Signs Temp Pulse Pulse Resp BP BP Pulse Ox 03/12/21 15:55 90 03/12/21 15:38 36.4 C L 79 20 170/87 H 92 03/12/21 11:09 36.8 C 93 H 18 164/78 H 91 03/12/21 08:00 36.5 C 95 H 20 171/90 H 96 03/12/21 07:18 96 H 16 92 03/12/21 07:08 101 H Laboratory Results Short CBC 03/12/21 Range/Units 07:21 WBC 8.46 (4.8-10.8) K/uL Hgb 12.6 L (14.0-18.0) g/dL Hct 40.3 L (42-52) % Plt Count 180 (130-400) K/uL BMP 03/12/21 07:21 Sodium 141 Potassium 3.4 L Chloride 107 Carbon Dioxide 27 BUN 17 Creatinine 1.16 Glucose 116 H Calcium 8.2 L
[2021-03-12] MEDS: TAMSULOSIN HCL 0.4 MG CAP PO SCH (20:59)
[2021-03-12] MEDS: ATORVASTATIN 40 MG TAB PO SCH (20:59)
[2021-03-13] MEDS: ACETAMINOPHEN 325 MG TAB PO PRN (06:08)
[2021-03-13] MEDS: LEVOTHYROXINE SODIUM 75 MCG TABLET PO SCH (06:08)
[2021-03-13] MEDS ORDERED: traMADol HCL 50 MG TABLET PO STA (06:26)
[2021-03-13] MEDS ORDERED: traMADol HCL 50 MG TABLET PO PRN (06:26)
[2021-03-13] MEDS ORDERED: amLODIPine BESYLATE 5 MG TAB PO SCH (06:30)
[2021-03-13] MEDS ORDERED: ACETAMINOPHEN W/CODEINE #3 1 TAB PO ONE (06:39)
[2021-03-13] MEDS: METOPROLOL SUCC 50MG EXT REL TAB PO SCH (06:52)
[2021-03-13] MEDS: MAGNESIUM OXIDE 400 MG TAB PO SCH ×2 (08:52→21:15)
[2021-03-13] MEDS: MIRABEGRON ER 25 MG TAB PO SCH (08:52)
[2021-03-13] MEDS: predniSONE 5 MG TAB PO SCH (08:52)
[2021-03-13] MEDS: guaiFENesin 600 MG TABCR PO SCH ×2 (08:52→21:11)
[2021-03-13] MEDS: HEPARIN SOD 5,000 UNIT/0.5 ML VIAL SQ SCH (08:53)
[2021-03-13] MEDS: CHOLECALCIFEROL 1,000 UNITS 25 MCG TAB PO SCH (08:53)
[2021-03-13] MEDS: MENTHOL-ZINC OXIDE 360 APPLN/120 GM TUBE EXT SCH ×3 (08:53→21:15)
[2021-03-13] MEDS: FLUTICASONE FUROATE 100MCG 14 PUFFS/INHALER INH SCH (08:53)
[2021-03-13] MEDS: GABAPENTIN 300 MG CAP PO SCH ×3 (08:53→21:11)
[2021-03-13] MEDS: FINASTERIDE 5 MG TAB PO SCH (08:53)
[2021-03-13] MEDS: FERROUS SULFATE 325 MG TAB PO SCH (08:53)
[2021-03-13] MEDS: CEROVITE ADV FORMULA TAB PO SCH (08:53)
[2021-03-13] MEDS: CLOPIDOGREL BISULFATE 75 MG TAB PO SCH (08:53)
[2021-03-13] MEDS: FUROSEMIDE 20 MG TAB PO SCH (08:53)
[2021-03-13] MEDS: allopurinoL 300 MG TAB PO SCH (08:53)
[2021-03-13] MEDS: INSULIN ASPART 100 UNITS/ML 3 ML PEN SC SCH ×4 (08:57→22:00)
[2021-03-13] MEDS: PIPERACILLIN/TAZOBACTAM 3.375 GM in DEXTROSE 5% 100 ML IV SCH ×3 (09:03→23:53)
[2021-03-13] MEDS ORDERED: VANCOMYCIN TROUGH ONE (09:30)
[2021-03-13 09:42] LABS: Hematocrit (blood only) 43.4 % (42-52); Hemoglobin 14.1 g/dL (14.0-18.0); Mean Corpuscular Hgb Conc 32.5 g/dL (32-36); Mean Corpuscular Volume 89.1 fL (80-100); Mean Platelet Volume 9.4 fL (7.4-10.4); Platelet Count 229 K/uL (130-400); RDW Coefficient of Variation 14.4 % (11.5-14.5); RDW Standard Deviation 47.1 fL (36.4-46.3); Red Blood Count 4.87 M/uL (4.7-6.1); White Blood Count 9.78 K/uL (4.8-10.8)
[2021-03-13 10:12] LABS: BUN Creatinine Ratio 10.8 (10-20); Calcium 8.8 mg/dl (8.5-10.1); Creatinine Clr Calc Pharmacy 42.9 ml/min; Est GFR (African American) 57.7 ml/min; Est GFR (Non-African American) 49.8 ml/min; Potassium 3.9 mmol/L (3.5-5.1)
[2021-03-13] MEDS: VANCOMYCIN HCL 1,250 MG in SODIUM CHLORIDE 0.9% 250 ML IV SCH (13:08)
--- NOTE | 2021-03-13 14:06 | Pharmacy Report ---
Pharmacy Abx Dose Short Note - Date of Service March 13, 2021 - Assessment & Plan Assessment 89 year old M receiving vancomycin/zosyn for pneumonia Day # 4 of antimicrobial therapy. Plan Vancomycin * Trough level came back at ~13 mcg/ml - anticipated AUC predicted 400-600 / Plan to continue same vancomycin dosing for now * Cultures negative thus far. Provider okay to have patient complete one more day of IV antibiotics, then plan to meter changes records clerk to oral augmentin/doxy thereafter Pharmacy will continue to follow and will adjust dose/frequency as necessary. Thank you.
[2021-03-13] MEDS ORDERED: LABETALOL HCL IV 5 MG/ML 20ML IV PRN (16:56)
[2021-03-13] MEDS ORDERED: amLODIPine BESYLATE 5 MG TAB PO ONE (17:15)
--- NOTE | 2021-03-13 19:53 | Hospitalist Progress Note ---
Date of Service March 13, 2021 Assessment & Plan (1) Multifocal pneumonia: Plan: Multifocal pneumonia Hypoxia CXR:Multifocal airspace opacities are seen, right greater than left. Cardiomegaly. Procalcitonin 0.13 COVID neg Positive MRSA screen Sputum culture normal leo Blood culture negative to date Continue Vanco, Zosyn for now Continue supplemental oxygen as needed Nebs as needed Saturating low 90s on room air De-escalate to p.o. doxycycline, Augmentin after 5-day course of IV antibiotics Minimal hemoptysis today Monitor CBC and consider to hold Plavix if recurrent (2) Encephalopathy: Plan: - Change in mental status per nursing staff at personal [facility] -Likely metabolic encephalopathy -CT Head:No significant change compared to the prior study. No acute intracranial abnormality. Mental status seem to be back to baseline Continue reorient frequently to avoid delirium (3) COPD (chronic obstructive pulmonary disease): Plan: Chronic prednisone 5 mg daily at baseline Continue home inhalers, nebs (4) Chronic diastolic heart failure: Plan: H/O A.flutter Not anticoagulated due to fall risk -Last echo 09/09/20 showing EF of 60 to 64%, LV wall thickness moderately increased, concentric, s/p TAVR with CoreValve prosthesis valve, mild perivalvular aortic valve prosthesis regurg, mild tricuspid regurg, mild pulmonary hypertension, estimated pulmonary artery systolic pressure of 40 to 45 mmHg. -Troponin elevated at 0.077-->0.081 setting of CKD, likely demand ischemia -low suspicion for ACS, EKG without acute changes. Monitor volume status Resume home diuretics as able (5) Acute kidney injury superimposed on CKD: Plan: - Cr. 1.66 on admission, appears baseline is ~ 1.2-1.4 -Received gentle IV fluids Monitor volume status Avoid nephrotoxic agents as able (6) Peripheral vascular disease: Plan: continue home medications HTN Increased amlodipine to 10 mg daily Metoprolol increased to 50 mg daily Monitor DVT Px Heparin SQ--held due to hemoptysis CODE: Full code Disposition PT OT prior to discharge Admission and Anticipated Discharge Date Admission Date: March 10, 2021 Subjective Patient is seen and examined at bedside Had very scant hemoptysis this morning Otherwise feels well Saturating well on room air Cough improving Denies any significant dyspnea Also denies any chest pain, nausea, vomiting, abdominal pain Review of Systems Review of Systems: All systems reviewed & are unremarkable except as noted in Subjective Physical Exam Physical Exam: Physical Exam: Vitals signs as noted above General Appearance:Moderately built and nourished, no apparent distress, Elderly Head: normocephalic, Atraumatic Eyes: normal inspection, EOMI Neck: supple, Trachea midline Respiratory/Chest: Decreased breath sounds, CTA Cardiovascular: S1, S2, No murmur Abdomen/GI:Soft, Non tender, Bowel sounds present Extremities/Musculoskeletal:normal inspection, Trace edema Neurologic/Psych:AAOX2, grossly no focal neurological deficits, +Hearing impairment Skin: normal color, warm Results & Data Results & Data ([facility]) Vital Signs (Past 12 Hours) Vital Signs Temp Pulse Pulse Resp BP BP Pulse Ox 03/13/21 19:40 36.6 C 94 H 20 149/78 H 93 03/13/21 15:43 36.6 C 98 H 16 189/102 H 180/100 H 93 03/13/21 15:23 90 03/13/21 11:00 36.0 C L 91 H 20 147/84 H 96 03/13/21 07:56 36.7 C 107 H 20 174/90 H 93 Laboratory Results Short CBC 03/13/21 Range/Units 09:26 WBC 9.78 (4.8-10.8) K/uL Hgb 14.1 (14.0-18.0) g/dL Hct 43.4 (42-52) % Plt Count 229 (130-400) K/uL BMP 03/13/21 09:26 Sodium 135 L Potassium 3.9 Chloride 103 Carbon Dioxide 27 BUN 14 Creatinine 1.27 Glucose 208 H Calcium 8.8
[2021-03-13] MEDS: TAMSULOSIN HCL 0.4 MG CAP PO SCH (21:11)
[2021-03-13] MEDS: ATORVASTATIN 40 MG TAB PO SCH (21:11)
[2021-03-14] MEDS: LEVOTHYROXINE SODIUM 75 MCG TABLET PO SCH ×2 (06:20→06:24)
[2021-03-14] MEDS: INSULIN ASPART 100 UNITS/ML 3 ML PEN SC SCH ×4 (08:45→20:51)
[2021-03-14] MEDS: PIPERACILLIN/TAZOBACTAM 3.375 GM in DEXTROSE 5% 100 ML IV SCH ×2 (09:03→17:03)
[2021-03-14] MEDS: FINASTERIDE 5 MG TAB PO SCH (09:07)
[2021-03-14] MEDS: GABAPENTIN 300 MG CAP PO SCH ×3 (09:07→20:51)
[2021-03-14] MEDS: CLOPIDOGREL BISULFATE 75 MG TAB PO SCH (09:07)
[2021-03-14] MEDS: MIRABEGRON ER 25 MG TAB PO SCH (09:07)
[2021-03-14] MEDS: amLODIPine BESYLATE 5 MG TAB PO SCH (09:07)
[2021-03-14] MEDS: CEROVITE ADV FORMULA TAB PO SCH (09:07)
[2021-03-14] MEDS: MAGNESIUM OXIDE 400 MG TAB PO SCH ×2 (09:07→20:51)
[2021-03-14] MEDS: FLUTICASONE FUROATE 100MCG 14 PUFFS/INHALER INH SCH (09:07)
[2021-03-14] MEDS: FUROSEMIDE 20 MG TAB PO SCH (09:07)
[2021-03-14] MEDS: guaiFENesin 600 MG TABCR PO SCH ×2 (09:07→20:51)
[2021-03-14] MEDS: METOPROLOL SUCC 50MG EXT REL TAB PO SCH (09:07)
[2021-03-14] MEDS: CHOLECALCIFEROL 1,000 UNITS 25 MCG TAB PO SCH (09:07)
[2021-03-14] MEDS: predniSONE 5 MG TAB PO SCH (09:07)
[2021-03-14] MEDS: allopurinoL 300 MG TAB PO SCH (09:07)
[2021-03-14] MEDS: FERROUS SULFATE 325 MG TAB PO SCH (09:07)
[2021-03-14] MEDS: MENTHOL-ZINC OXIDE 360 APPLN/120 GM TUBE EXT SCH ×3 (09:08→20:50)
[2021-03-14 09:46] LABS: BUN Creatinine Ratio 12.4 (10-20); Calcium 8.4 mg/dl (8.5-10.1); Creatinine Clr Calc Pharmacy 32.3 ml/min; Est GFR (African American) 41.1 ml/min; Est GFR (Non-African American) 35.5 ml/min; Potassium 3.7 mmol/L (3.5-5.1)
--- NOTE | 2021-03-14 10:20 | XRay Report ---
XR chest 1V portable CLINICAL HISTORY: Follow-up bilateral airspace opacities. Evaluate for pneumonia. COMPARISON STUDY: 03/10/2021 TECHNIQUE: 1 view of the chest FINDINGS: Single frontal view of the chest demonstrates the heart size to now be at the upper limits of normal. Compared to previous examination, there is now a more confluent alveolar opacity at the right lung b ase suspicious for pneumonia. Smaller patchy alveolar opacity which are seen bilaterally have resolve d. Follow-up PA and lateral radiographs would be helpful for further evaluation. The presence of a sm all right pleural effusion layering posterior gutter cannot be excluded. There is no evidence for vas cular congestion. There is no acute osseous pathology. IMPRESSION: Compared to previous examination, there is now a more confluent alveolar opacity at the r ight lung base suspicious for pneumonia. Follow-up PA and lateral radiographs would be helpful for fu rther evaluation. There is also suspicion of a small right pleural effusion. ACT 112: Negative or not required by law. Electronically signed by: Patel Robin M.D. 03/14/2021 10:18 AM
[2021-03-14] MEDS: VANCOMYCIN HCL 1,250 MG in SODIUM CHLORIDE 0.9% 250 ML IV SCH (11:35)
--- NOTE | 2021-03-14 13:48 | Fluoroscopy Report ---
FL video swallow CLINICAL HISTORY: assess for aspiration COMPARISON STUDY: No previous studies for comparison. FLUOROSCOPY TIME: 2.7 minutes. NUMBER OF IMAGES: 10 cine fluoroscopic swallowing sequences. FINDINGS: The patient was given barium of varying consistencies and observed under fluoroscopy with c oncurrent tape recording. Examination is performed in conjunction with a member of the speech patholo gy department. The patient was given the following consistencies of barium: Thin, nectar, pure, mechanical soft and solid. There was no significant laryngeal penetration or aspiration with all substances tested. There was no pooling within the vallecula. There was no pooling within the puriform sinuses. There was evidence for esophageal dysmotility and a hiatal hernia. IMPRESSION: No significant laryngeal penetration or aspiration identified. Please see report from speech pathology regarding additional findings recommendations. ACT 112: Negative or not required by law. Electronically signed by: Patel Robin M.D. 03/14/2021 1:47 PM
[2021-03-14] MEDS ORDERED: SODIUM CHLORIDE 0.9% 500 ML IV ONE (15:27)
--- NOTE | 2021-03-14 15:40 | Hospitalist Progress Note ---
Date of Service March 14, 2021 Assessment & Plan (1) Multifocal pneumonia: Plan: Multifocal pneumonia Hypoxia CXR:Multifocal airspace opacities are seen, right greater than left. Cardiomegaly. Procalcitonin 0.13 COVID neg Positive MRSA screen Sputum culture normal leo Blood culture negative to date Continue Vanco, Zosyn for now Continue supplemental oxygen as needed Nebs as needed Saturating low 90s on room air De-escalate to p.o. doxycycline, Augmentin after 5-day course of IV antibiotics tmw Monitor CBC and consider to hold Plavix if recurrent No hemoptysis today Consider pulmonary evaluation. Video swallow showed no significant laryngeal penetration or aspiration. May need 2 step prior to discharge (2) Encephalopathy: Plan: - Change in mental status per nursing staff at [facility] -Likely metabolic encephalopathy -CT Head:No significant change compared to the prior study. No acute intracranial abnormality. Mental status seem to be back to baseline Continue reorient frequently to avoid delirium (3) COPD (chronic obstructive pulmonary disease): Plan: Chronic prednisone 5 mg daily at baseline Continue home inhalers, nebs (4) Chronic diastolic heart failure: Plan: H/O A.flutter Not anticoagulated due to fall risk -Last echo 09/09/20 showing EF of 60 to 64%, LV wall thickness moderately increased, concentric, s/p TAVR with CoreValve prosthesis valve, mild perivalvular aortic valve prosthesis regurg, mild tricuspid regurg, mild pulmonary hypertension, estimated pulmonary artery systolic pressure of 40 to 45 mmHg. -Troponin elevated at 0.077-->0.081 setting of CKD, likely demand ischemia -low suspicion for ACS, EKG without acute changes. Monitor volume status Resume home diuretics as able (5) Acute kidney injury superimposed on CKD: Plan: - Cr. 1.66 on admission, appears baseline is ~ 1.2-1.4 Monitor volume status Avoid nephrotoxic agents as able Cr worsened to 1.6 today We will hold Lasix today Gentle IV fluids Bladder Alford PRN (6) Peripheral vascular disease: Plan: continue home medications HTN Increased amlodipine to 10 mg daily Metoprolol increased to 50 mg daily Monitor DVT Px Heparin SQ--held due to hemoptysis CODE: Full code Disposition PT OT prior to discharge Admission and Anticipated Discharge Date Admission Date: March 10, 2021 Subjective Patient is seen and examined at bedside Denies any hemoptysis today Had video swallow earlier today Subjectively feels better Afebrile today Less cough today Denies any chest pain, dyspnea, nausea, vomiting, abdominal pain Review of Systems Review of Systems: All systems reviewed & are unremarkable except as noted in Subjective Physical Exam Physical Exam: Physical Exam: Vitals signs as noted above General Appearance:Moderately built and nourished, no apparent distress, Elderly Head: normocephalic, Atraumatic Eyes: normal inspection, EOMI Neck: supple, Trachea midline Respiratory/Chest: Decreased breath sounds, CTA Cardiovascular: S1, S2, No murmur Abdomen/GI:Soft, Non tender, Bowel sounds present Extremities/Musculoskeletal:normal inspection, Trace edema Neurologic/Psych:AAOX2, grossly no focal neurological deficits, +Hearing impairment Skin: normal color, warm Results & Data Results & Data ([facility]) Vital Signs (Past 12 Hours) Vital Signs Temp Pulse Pulse Resp BP BP Pulse Ox 03/14/21 07:53 36.7 C 96 H 18 118/78 86 L 03/14/21 07:00 97 H 03/14/21 04:00 36.4 C L 99 H 18 143/89 H 97 Laboratory Results [facility] 03/14/21 09:00 Sodium 139 Potassium 3.7 Chloride 106 Carbon Dioxide 25 BUN 21 H Creatinine 1.68 H D Glucose 118 H Calcium 8.4 L
[2021-03-14] MEDS: TAMSULOSIN HCL 0.4 MG CAP PO SCH (20:51)
[2021-03-14] MEDS: ATORVASTATIN 40 MG TAB PO SCH (20:51)
[2021-03-15] MEDS: LEVOTHYROXINE SODIUM 75 MCG TABLET PO SCH (06:17)
[2021-03-15] MEDS: FLUTICASONE FUROATE 100MCG 14 PUFFS/INHALER INH SCH (08:29)
[2021-03-15] MEDS: amLODIPine BESYLATE 5 MG TAB PO SCH (08:29)
[2021-03-15] MEDS: INSULIN ASPART 100 UNITS/ML 3 ML PEN SC SCH ×4 (08:31→21:46)
[2021-03-15] MEDS: MAGNESIUM OXIDE 400 MG TAB PO SCH ×2 (08:32→20:56)
[2021-03-15] MEDS: CLOPIDOGREL BISULFATE 75 MG TAB PO SCH (08:32)
[2021-03-15] MEDS: CHOLECALCIFEROL 1,000 UNITS 25 MCG TAB PO SCH (08:32)
[2021-03-15] MEDS: FERROUS SULFATE 325 MG TAB PO SCH (08:32)
[2021-03-15] MEDS: CEROVITE ADV FORMULA TAB PO SCH (08:33)
[2021-03-15] MEDS: predniSONE 5 MG TAB PO SCH (08:33)
[2021-03-15] MEDS: DOXYCYCLINE HYCLATE 100 MG CAP PO SCH ×2 (08:33→20:56)
[2021-03-15] MEDS: GABAPENTIN 300 MG CAP PO SCH ×3 (08:33→20:56)
[2021-03-15] MEDS: guaiFENesin 600 MG TABCR PO SCH ×2 (08:34→20:56)
[2021-03-15] MEDS: METOPROLOL SUCC 50MG EXT REL TAB PO SCH (08:34)
[2021-03-15] MEDS: FINASTERIDE 5 MG TAB PO SCH (08:34)
[2021-03-15] MEDS: MIRABEGRON ER 25 MG TAB PO SCH (08:34)
[2021-03-15] MEDS: AMOXICILLIN/CLAVULANATE 875 MG TAB PO SCH ×2 (08:34→20:55)
[2021-03-15] MEDS: allopurinoL 300 MG TAB PO SCH (08:34)
[2021-03-15] MEDS: MENTHOL-ZINC OXIDE 360 APPLN/120 GM TUBE EXT SCH ×3 (08:35→20:54)
[2021-03-15 09:12] LABS: Hematocrit (blood only) 39.5 % (42-52); Hemoglobin 12.5 g/dL (14.0-18.0); Mean Corpuscular Hemoglobin 28.4 pg (25-34); Mean Corpuscular Hgb Conc 31.6 g/dL (32-36); Mean Corpuscular Volume 89.8 fL (80-100); Mean Platelet Volume 9.1 fL (7.4-10.4); Platelet Count 189 K/uL (130-400); RDW Coefficient of Variation 14.6 % (11.5-14.5); RDW Standard Deviation 48.3 fL (36.4-46.3); White Blood Count 8.02 K/uL (4.8-10.8)
[2021-03-15 09:43] LABS: BUN Creatinine Ratio 16.5 (10-20); Calcium 8.2 mg/dl (8.5-10.1); Creatinine Clr Calc Pharmacy 37.7 ml/min; Est GFR (African American) 49.5 ml/min; Est GFR (Non-African American) 42.7 ml/min; Potassium 3.6 mmol/L (3.5-5.1)
[2021-03-15] MEDS ORDERED: LIDOCAINE 5% 1 PATCH TD PRN (13:53)
--- NOTE | 2021-03-15 14:40 | Hospitalist Progress Note ---
Date of Service March 15, 2021 Assessment & Plan (1) Multifocal pneumonia: Plan: per Dr. Ramos's notes: Multifocal pneumonia Hypoxia CXR:Multifocal airspace opacities are seen, right greater than left. Cardiomegaly. Procalcitonin 0.13 COVID neg Positive MRSA screen Sputum culture normal leo Blood culture negative to date Continue Vanco, Zosyn for now Continue supplemental oxygen as needed Nebs as needed Saturating low 90s on room air De-escalate to p.o. doxycycline, Augmentin after 5-day course of IV antibiotics tmw Monitor CBC and consider to hold Plavix if recurrent No hemoptysis today Consider pulmonary evaluation. Video swallow showed no significant laryngeal penetration or aspiration. May need 2 step prior to discharge 03/15 respiratory status stable on 2 L O2 NC continue PO Doxycycline + Augmentin Day 04/26 (antibiotic day 09/29) monitor wean off O2 supplement (2) Encephalopathy: Plan: per Dr. Ramos's notes: - Change in mental status per nursing staff at [facility] -Likely metabolic encephalopathy -CT Head:No significant change compared to the prior study. No acute intracranial abnormality. Mental status seem to be back to baseline Continue reorient frequently to avoid delirium 03/15 back to baseline (3) COPD (chronic obstructive pulmonary disease): Plan: Chronic prednisone 5 mg daily at baseline Continue home inhalers, nebs (4) Chronic diastolic heart failure: Plan: per Dr. Ramos's notes: H/O A.flutter Not anticoagulated due to fall risk -Last echo 09/09/20 showing EF of 60 to 64%, LV wall thickness moderately increased, concentric, s/p TAVR with CoreValve prosthesis valve, mild perivalvular aortic valve prosthesis regurg, mild tricuspid regurg, mild pulmonary hypertension, estimated pulmonary artery systolic pressure of 40 to 45 mmHg. -Troponin elevated at 0.077-->0.081 setting of CKD, likely demand ischemia -low suspicion for ACS, EKG without acute changes. 03/15 euvolemic Lasix on hold for mild crea elevation (5) Acute kidney injury superimposed on CKD: Plan: per Dr. Ramos's notes: - Cr. 1.66 on admission, appears baseline is ~ 1.2-1.4 Monitor volume status Avoid nephrotoxic agents as able Cr worsened to 1.6 today We will hold Lasix today Gentle IV fluids Bladder Alford PRN 03/15 crea improved from 1.6 to 1.4 baseline 1.2 Lasix on hold (6) Peripheral vascular disease: Plan: continue home medications HTN Increased amlodipine to 10 mg daily Metoprolol increased to 50 mg daily -- monitor BP DVT Px Heparin SQ--held due to hemoptysis CODE: Full code Disposition awaiting acceptance to SNF Admission and Anticipated Discharge Date Admission Date: March 10, 2021 Subjective ff up for multifocal pneumonia, etc seen resting in bed, comfortable on 2 L O2 via nasal cannula states he feels ok overall no dyspnea, has occasional dry cough no chest pain, palpitations, dizziness reports L shoulder pain- persistent, since having a fall a few days ago cannot move left arm much due to pain no weakness/numbness no other symptoms Review of Systems Review of Systems: all noted and negative except for above Physical Exam Physical Exam: General- oriented x 2, not in distress, speaks in sentences with no effort or accessory muscle use Eyes- anicteric Neck- no JVD Lungs- diminished , with occasional rhonchi bl no wheezing good air entry Heart- normal rate, regular rhythm; no murmurs Abdomen- normal bowel sounds, nondistended, soft, nontender Extremities- trace pretibial edema, no calf tenderness Neuro- alert, oriented x 2; no gross focal neurologic deficits Skin- warm & dry Results & Data Results & Data ([facility]) Vital Signs (Past 12 Hours) Vital Signs Temp Pulse Pulse Resp BP Pulse Ox 03/15/21 11:45 37.0 C 88 18 154/87 H 98 03/15/21 07:31 36.7 C 87 18 149/87 H 96 03/15/21 07:00 80 03/15/21 04:00 36.7 C 89 18 134/86 98 all noted and reviewed including below
--- NOTE | 2021-03-15 16:10 | XRay Report ---
XR shoulder LT min 2V routine CLINICAL HISTORY: Left shoulder pain. Fall. COMPARISON STUDY: None. FINDINGS: No fracture or dislocation within the left shoulder. The left clavicle is intact. Mild dege nerative changes within the left shoulder. There is narrowing of the subacromial space consistent wit h chronic rotator cuff injury. The bones are osteopenic. IMPRESSION: 1. No fracture or dislocation within the left shoulder. 2. Chronic rotator cuff injury. ACT 112: Negative or not required by law. Electronically signed by: Roberto Berger M.D. 03/15/2021 4:09 PM
[2021-03-15] MEDS: TAMSULOSIN HCL 0.4 MG CAP PO SCH (20:55)
[2021-03-15] MEDS: ATORVASTATIN 40 MG TAB PO SCH (20:57)
[2021-03-16] MEDS: LEVOTHYROXINE SODIUM 75 MCG TABLET PO SCH (05:51)
[2021-03-16 07:17] LABS: Creatinine Clr Calc Pharmacy 49.2 ml/min; Est GFR (African American) 68.6 ml/min; Est GFR (Non-African American) 59.2 ml/min
[2021-03-16] MEDS: INSULIN ASPART 100 UNITS/ML 3 ML PEN SC SCH ×4 (08:56→21:01)
[2021-03-16] MEDS: DOXYCYCLINE HYCLATE 100 MG CAP PO SCH ×3 (08:57→22:23)
[2021-03-16] MEDS: guaiFENesin 600 MG TABCR PO SCH ×3 (08:57→22:23)
[2021-03-16] MEDS: MAGNESIUM OXIDE 400 MG TAB PO SCH ×3 (08:57→22:23)
[2021-03-16] MEDS: GABAPENTIN 300 MG CAP PO SCH ×4 (08:57→22:23)
[2021-03-16] MEDS: amLODIPine BESYLATE 5 MG TAB PO SCH (08:58)
[2021-03-16] MEDS: AMOXICILLIN/CLAVULANATE 875 MG TAB PO SCH ×3 (08:58→22:23)
[2021-03-16] MEDS: METOPROLOL SUCC 50MG EXT REL TAB PO SCH (08:58)
[2021-03-16] MEDS: CLOPIDOGREL BISULFATE 75 MG TAB PO SCH (08:59)
[2021-03-16] MEDS: CEROVITE ADV FORMULA TAB PO SCH (08:59)
[2021-03-16] MEDS: allopurinoL 300 MG TAB PO SCH (08:59)
[2021-03-16] MEDS: MIRABEGRON ER 25 MG TAB PO SCH (08:59)
[2021-03-16] MEDS: CHOLECALCIFEROL 1,000 UNITS 25 MCG TAB PO SCH (08:59)
[2021-03-16] MEDS: FINASTERIDE 5 MG TAB PO SCH (08:59)
[2021-03-16] MEDS: predniSONE 5 MG TAB PO SCH (08:59)
[2021-03-16] MEDS: FERROUS SULFATE 325 MG TAB PO SCH (08:59)
[2021-03-16] MEDS: MENTHOL-ZINC OXIDE 360 APPLN/120 GM TUBE EXT SCH ×3 (09:00→21:03)
[2021-03-16] MEDS: FLUTICASONE FUROATE 100MCG 14 PUFFS/INHALER INH SCH (09:05)
--- NOTE | 2021-03-16 12:51 | Hospitalist Progress Note ---
Date of Service March 16, 2021 Assessment & Plan (1) Multifocal pneumonia: Plan: per Dr. Ramos's notes: Multifocal pneumonia Hypoxia CXR:Multifocal airspace opacities are seen, right greater than left. Cardiomegaly. Procalcitonin 0.13 COVID neg Positive MRSA screen Sputum culture normal leo Blood culture negative to date Continue Vanco, Zosyn for now Continue supplemental oxygen as needed Nebs as needed Saturating low 90s on room air De-escalate to p.o. doxycycline, Augmentin after 5-day course of IV antibiotics tmw Monitor CBC and consider to hold Plavix if recurrent No hemoptysis today Consider pulmonary evaluation. Video swallow showed no significant laryngeal penetration or aspiration. May need 2 step prior to discharge 03/16 respiratory status stable on 2 L O2 NC continue PO Doxycycline + Augmentin Day 05/27 (antibiotic day 09/29) monitor wean off O2 supplement accordingly (2) Encephalopathy: Plan: per Dr. Ramos's notes: - Change in mental status per nursing staff at [facility] -Likely metabolic encephalopathy -CT Head:No significant change compared to the prior study. No acute intracranial abnormality. Mental status seem to be back to baseline Continue reorient frequently to avoid delirium 03/16 back to baseline (3) COPD (chronic obstructive pulmonary disease): Plan: Chronic prednisone 5 mg daily at baseline Continue home inhalers, nebs (4) Chronic diastolic heart failure: Plan: per Dr. Ramos's notes: H/O A.flutter Not anticoagulated due to fall risk -Last echo 09/09/20 showing EF of 60 to 64%, LV wall thickness moderately increased, concentric, s/p TAVR with CoreValve prosthesis valve, mild perivalvular aortic valve prosthesis regurg, mild tricuspid regurg, mild pulmonary hypertension, estimated pulmonary artery systolic pressure of 40 to 45 mmHg. -Troponin elevated at 0.077-->0.081 setting of CKD, likely demand ischemia -low suspicion for ACS, EKG without acute changes. 03/16 euvolemic resume usual Lasix 20mg po daily (5) Acute kidney injury superimposed on CKD: Plan: per Dr. Ramos's notes: - Cr. 1.66 on admission, appears baseline is ~ 1.2-1.4 Monitor volume status Avoid nephrotoxic agents as able Cr worsened to 1.6 today We will hold Lasix today Gentle IV fluids Bladder Alford PRN 03/16 crea improved from 1.6 to 1.4 baseline 1.2 back to baseline (6) Peripheral vascular disease: Plan: continue home medications HTN Increased amlodipine to 10 mg daily Metoprolol increased to 50 mg daily -- BP seems to be improving DVT Px Heparin SQ--held due to hemoptysis CODE: Full code Disposition awaiting acceptance to SNF Admission and Anticipated Discharge Date Admission Date: March 10, 2021 Subjective ff up for pneumonia, etc seen sitting up in bed, comfortable states breathing is fine, minimal cough no chest pain, palpitations, dizziness still has left shoulder pain no other symptoms Review of Systems Review of Systems: all noted and negative except for above Physical Exam Physical Exam: General- oriented x 2, not in distress, speaks in sentences with no effort or accessory muscle use Eyes- anicteric Neck- no JVD Lungs- diminished but clear breath sounds bilaterally Heart- normal rate, regular rhythm; no murmurs Abdomen- normal bowel sounds, nondistended, soft, nontender Extremities-left shoulder: mild edema, and warmth, poor ROM no pretibial edema, no calf tenderness Neuro- alert, oriented x 2; no new gross focal neurologic deficits Skin- warm & dry Results & Data Results & Data ([facility]) Vital Signs (Past 12 Hours) Vital Signs Temp Pulse Pulse Resp BP Pulse Ox 03/16/21 07:56 36.3 C L 89 20 166/97 H 03/16/21 03:12 36.9 C 83 17 168/89 H 96 03/16/21 01:34 85 all noted and reviewed including below
--- NOTE | 2021-03-16 17:22 | Consultation Report ---
DATE OF CONSULTATION: 03/16/2021 HISTORY OF PRESENT ILLNESS: This is an 89-year-old gentleman seen at the request of Dr. Silverman and Dr. Martel for left shoulder pain and loss of function. The patient was admitted to the hospit alist service on 03/10/2021 due to multifocal pneumonia, encephalopathy, exacerbation of COPD, chroni c diastolic heart failure, acute kidney injury and peripheral vascular disease. The patient was plac ed on IV antibiotics, admitted to the hospitalist service and cared for accordingly. The patient was noted to have improvement in his pneumonia; however, began to complain more vociferously of left pauline ulder pain. He had difficulty with elevating the arm and with bed mobility due to the left shoulder. Orthopedics was consulted. He had no specific injury, which he can recall to the shoulder. His gr anddaughter is present at bedside and admits that he has had some confusion while in the hospital; wh ile at baseline, he is typically improved with some cognitive slow down noted due to typical Alzheime r type changes over time. The patient has pain with motion of the left shoulder. He had no specific injury, which he can recall. PAST MEDICAL HISTORY: Anemia, aortic stenosis, BPH, chronic diastolic heart failure, chronic venous insufficiency, CKD stage III, COPD, dyslipidemia, elevated PSA, esophageal dysmotility, GERD, gout, h istory of atrial flutter, hiatal hernia, duodenal ulcer, kidney stones, hypertension, neuropathy, noc turnal hypoxemia, osteoarthritis, osteoporosis, peripheral vascular disease, psoriatic arthritis, adilia al lesion, umbilical hernia, urinary incontinence, urinary retention. 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 ALLERGIES: CITRUS AND DERIVATIVES, TOMATOES, COLCHICINE, MORPHINE WITH GI UPSET AND IN AND OUT OF IT . MEDICATIONS: Please note the extensive list in the medical record. SOCIAL HISTORY: The patient has a history of tobacco use, remote. Denies alcohol use. Denies drug use. He is , lives at [facility]. Walks with a walker. He is retired. PHYSICAL EXAMINATION: This is an 89-year-old gentleman who is present with his granddaughter who is a family caseworker at bedside. He is alert and oriented x3 with some need for redirection. He has difficulty remembering some facts both intermediate term and remote term. Responds to questi ons accordingly. Granddaughter is present for some assistance. Examination of the left shoulder dem onstrates skin warm, dry and intact. Cap refill less than 2 seconds. Radial pulse 2/4. Radial, uln ar, median, and axillary nerve sensory and motor function are grossly intact. He does have some francois r loss of sensation at the tips of the fingers. He has some psoriatic changes. No previous scars on the shoulder. He had limitation with range of motion testing of the left shoulder compared to right , limitation of abduction to 85 degrees with scapular assist, forward elevation is 85 degrees, exchange engineer al rotation is 10 degrees from neutral, internal rotation to the level of his greater trochanter. St rength is 4/5 up to a level of approximately 80 degrees of forward elevation and abduction, approxima tely 20 degrees of external rotation with discomfort. He has crepitation with active and passive ran ge of motion of the left shoulder. He has atrophy of the deltoid and associated rotator cuff muscula ture. He has superior migration of the left shoulder grossly. RADIOGRAPHS: Reviewed, demonstrate no acute fractures. He has subacromial narrowing consistent with rotator cuff arthropathy and superior migration of the humeral head. Sclerosis is noted at the kay ohumeral articulation with inferiorly directed spurs at the acromioclavicular joint with narrowing of the acromioclavicular joint. Osteopenia is evident. IMPRESSION: 1. Left shoulder osteoarthritis. 2. Rotator cuff arthropathy with superior migration of the humeral head. 3. Subacromial impingement. 4. Acromioclavicular joint osteoarthritis. 5. Adhesive capsulitis. 6. Pneumonia. 7. Chronic peripheral neuropathy. RECOMMENDATION: As the patient has an improvement in his pneumonia, he would be a good candidate fo r an intraarticular corticosteroid injection on the left shoulder. I can make this available for him and provide it for him tomorrow. We will share these findings with Dr. Silverman for any possible mo dification of the plan. The patient will be then recommended for outpatient physical therapy for the shoulder. Should he fail initial conservative management, he may be a candidate for manipulation un ting anesthesia; however, I would recommend against it at this time due to the patient's recent pneumo yoav. We will follow with you. Thank you for the opportunity to consult in the care of this patient. Job ID: [id number]
[2021-03-16] MEDS: TAMSULOSIN HCL 0.4 MG CAP PO SCH ×2 (21:02→22:23)
[2021-03-16] MEDS: ATORVASTATIN 40 MG TAB PO SCH ×2 (21:03→22:23)
[2021-03-17 04:30] LABS: Appearance Urine Clear (Clear); Bacteria Urine Automated Negative (Negative); Bilirubin Urine Negative (Negative); Blood Urine Negative (Negative); Color Urine Yellow; Epithelial Cell Urine Auto 20-30 /lpf (0-5); Glucose Urine UA Negative (Negative); Ketones Urine Negative (Negative); Leukocyte Esterase Urine Negative (Negative); Nitrite Urine Negative (Negative); Protein Urine 1+ (Negative); RBC Urine Automated 0-4 /hpf (0-4); Specific Gravity Urine 1.019 (1.000-1.030); Urobilinogen Urine Negative (Negative)
[2021-03-17] MEDS: LEVOTHYROXINE SODIUM 75 MCG TABLET PO SCH (05:40)
[2021-03-17 06:58] LABS: Hematocrit (blood only) 40.4 % (42-52); Hemoglobin 12.8 g/dL (14.0-18.0); Mean Corpuscular Hemoglobin 28.3 pg (25-34); Mean Corpuscular Hgb Conc 31.7 g/dL (32-36); Mean Corpuscular Volume 89.4 fL (80-100); Mean Platelet Volume 9.7 fL (7.4-10.4); Platelet Count 248 K/uL (130-400); RDW Coefficient of Variation 14.4 % (11.5-14.5); RDW Standard Deviation 47.6 fL (36.4-46.3); Red Blood Count 4.52 M/uL (4.7-6.1)
[2021-03-17] MEDS: predniSONE 5 MG TAB PO SCH (08:31)
[2021-03-17] MEDS: FINASTERIDE 5 MG TAB PO SCH (08:31)
[2021-03-17] MEDS: CEROVITE ADV FORMULA TAB PO SCH (08:31)
[2021-03-17] MEDS: FERROUS SULFATE 325 MG TAB PO SCH (08:31)
[2021-03-17] MEDS: METOPROLOL SUCC 50MG EXT REL TAB PO SCH (08:31)
[2021-03-17] MEDS: amLODIPine BESYLATE 5 MG TAB PO SCH (08:31)
[2021-03-17] MEDS: guaiFENesin 600 MG TABCR PO SCH ×2 (08:32→21:37)
[2021-03-17] MEDS: GABAPENTIN 300 MG CAP PO SCH ×3 (08:32→21:36)
[2021-03-17] MEDS: allopurinoL 300 MG TAB PO SCH (08:32)
[2021-03-17] MEDS: MAGNESIUM OXIDE 400 MG TAB PO SCH ×2 (08:32→21:37)
[2021-03-17] MEDS: DOXYCYCLINE HYCLATE 100 MG CAP PO SCH ×2 (08:32→21:36)
[2021-03-17] MEDS: FUROSEMIDE 20 MG TAB PO SCH (08:32)
[2021-03-17] MEDS: AMOXICILLIN/CLAVULANATE 875 MG TAB PO SCH ×2 (08:32→21:36)
[2021-03-17] MEDS: MIRABEGRON ER 25 MG TAB PO SCH (08:32)
[2021-03-17] MEDS: CHOLECALCIFEROL 1,000 UNITS 25 MCG TAB PO SCH (08:32)
[2021-03-17] MEDS: MENTHOL-ZINC OXIDE 360 APPLN/120 GM TUBE EXT SCH ×3 (08:33→21:38)
[2021-03-17] MEDS: FLUTICASONE FUROATE 100MCG 14 PUFFS/INHALER INH SCH (08:33)
[2021-03-17] MEDS: CLOPIDOGREL BISULFATE 75 MG TAB PO SCH (09:07)
[2021-03-17] MEDS: INSULIN ASPART 100 UNITS/ML 3 ML PEN SC SCH ×4 (10:22→21:37)
--- NOTE | 2021-03-17 14:33 | Hospitalist Progress Note ---
Date of Service March 17, 2021 Assessment & Plan (1) Multifocal pneumonia: Plan: per Dr. Ramos's notes: Multifocal pneumonia Hypoxia CXR:Multifocal airspace opacities are seen, right greater than left. Cardiomegaly. Procalcitonin 0.13 COVID neg Positive MRSA screen Sputum culture normal leo Blood culture negative to date Continue Vanco, Zosyn for now Continue supplemental oxygen as needed Nebs as needed Saturating low 90s on room air De-escalate to p.o. doxycycline, Augmentin after 5-day course of IV antibiotics tmw Monitor CBC and consider to hold Plavix if recurrent No hemoptysis today Consider pulmonary evaluation. Video swallow showed no significant laryngeal penetration or aspiration. May need 2 step prior to discharge 03/17 respiratory status remains stable on 2 L O2 NC continue PO Doxycycline + Augmentin Day 3/ (antibiotic day 09/29) monitor wean off O2 supplement accordingly (2) Encephalopathy: Plan: per Dr. Ramos's notes: - Change in mental status per nursing staff at [facility] -Likely metabolic encephalopathy -CT Head:No significant change compared to the prior study. No acute intracranial abnormality. Mental status seem to be back to baseline Continue reorient frequently to avoid delirium 03/17 back to baseline (3) COPD (chronic obstructive pulmonary disease): Plan: Chronic prednisone 5 mg daily at baseline Continue home inhalers, nebs (4) Chronic diastolic heart failure: Plan: per Dr. Ramos's notes: H/O A.flutter Not anticoagulated due to fall risk -Last echo 09/09/20 showing EF of 60 to 64%, LV wall thickness moderately increased, concentric, s/p TAVR with CoreValve prosthesis valve, mild perivalvular aortic valve prosthesis regurg, mild tricuspid regurg, mild pulmonary hypertension, estimated pulmonary artery systolic pressure of 40 to 45 mmHg. -Troponin elevated at 0.077-->0.081 setting of CKD, likely demand ischemia -low suspicion for ACS, EKG without acute changes. 03/17 euvolemic resume usual Lasix 20mg po daily (5) Acute kidney injury superimposed on CKD: Plan: per Dr. Ramos's notes: - Cr. 1.66 on admission, appears baseline is ~ 1.2-1.4 Monitor volume status Avoid nephrotoxic agents as able Cr worsened to 1.6 today We will hold Lasix today Gentle IV fluids Bladder Alford PRN 03/17 crea improved from 1.6 to 1.4 baseline 1.2 back to baseline (6) Peripheral vascular disease: Plan: continue home medications HTN Increased amlodipine to 10 mg daily Metoprolol increased to 50 mg daily -- BP seems to be improving L shoulder pain - Xray: no fractures - chronic rotator cuff injury for steroid injection per Ortho DVT Px Heparin SQ--held due to hemoptysis CODE: Full code Disposition awaiting acceptance to SNF Admission and Anticipated Discharge Date Admission Date: March 10, 2021 Subjective ff up for pneumonia, etc seen resting in bed, sitting up on 2 L NC , not in distress, comfortable states breathing is ok, no cough L shoulder still has significant pain no other symptoms Review of Systems Review of Systems: all noted and negative except for above Physical Exam Physical Exam: General- oriented x 3, not in distress, speaks in sentences with no effort or accessory muscle use Eyes- anicteric Neck- no JVD Lungs- diminished BS BL good air entry Heart- normal rate, regular rhythm; no murmurs Abdomen- normal bowel sounds, nondistended, soft, nontender Extremities- no pretibial edema, no calf tenderness L shoulder- mild edema and tenderness, poor ROM Neuro- alert, oriented x 3; no gross focal neurologic deficits Skin- warm & dry Results & Data Results & Data ([facility]) Vital Signs (Past 12 Hours) Vital Signs Temp Pulse Pulse Resp BP BP Pulse Ox 03/17/21 11:33 36.8 C 92 H 16 160/81 H 90 03/17/21 07:12 36.6 C 86 18 152/87 H 94 03/17/21 07:00 86 03/17/21 03:14 36.8 C 89 20 160/89 H 93
[2021-03-17] MEDS ORDERED: methylPREDNISolone acetate 80 MG/ML VIAL IM STA (14:58)
[2021-03-17] MEDS ORDERED: ETHYL CHLORIDE AER PER SPRAY 100 ML CAN EXT ONE (14:59)
[2021-03-17] MEDS ORDERED: BUPIVACAINE 0.5 % 5 MG/1 ML MPF 30ML VIAL INFIL STA (14:59)
[2021-03-17] MEDS: ACETAMINOPHEN 325 MG TAB PO PRN (21:35)
[2021-03-17] MEDS: TAMSULOSIN HCL 0.4 MG CAP PO SCH (21:36)
[2021-03-17] MEDS: ATORVASTATIN 40 MG TAB PO SCH (21:37)
[2021-03-18] MEDS: LEVOTHYROXINE SODIUM 75 MCG TABLET PO SCH (05:44)
[2021-03-18] MEDS: predniSONE 5 MG TAB PO SCH (09:51)
[2021-03-18] MEDS: MIRABEGRON ER 25 MG TAB PO SCH (09:51)
[2021-03-18] MEDS: CHOLECALCIFEROL 1,000 UNITS 25 MCG TAB PO SCH (09:51)
[2021-03-18] MEDS: CLOPIDOGREL BISULFATE 75 MG TAB PO SCH (09:51)
[2021-03-18] MEDS: amLODIPine BESYLATE 5 MG TAB PO SCH (09:51)
[2021-03-18] MEDS: FINASTERIDE 5 MG TAB PO SCH (09:51)
[2021-03-18] MEDS: METOPROLOL SUCC 50MG EXT REL TAB PO SCH (09:51)
[2021-03-18] MEDS: allopurinoL 300 MG TAB PO SCH (09:51)
[2021-03-18] MEDS: FLUTICASONE FUROATE 100MCG 14 PUFFS/INHALER INH SCH (09:52)
[2021-03-18] MEDS: FERROUS SULFATE 325 MG TAB PO SCH (09:52)
[2021-03-18] MEDS: CEROVITE ADV FORMULA TAB PO SCH (09:52)
[2021-03-18] MEDS: MENTHOL-ZINC OXIDE 360 APPLN/120 GM TUBE EXT SCH ×3 (09:52→21:50)
[2021-03-18] MEDS: DOXYCYCLINE HYCLATE 100 MG CAP PO SCH ×2 (09:53→21:48)
[2021-03-18] MEDS: MAGNESIUM OXIDE 400 MG TAB PO SCH ×2 (09:53→21:41)
[2021-03-18] MEDS: GABAPENTIN 300 MG CAP PO SCH ×3 (09:53→21:48)
[2021-03-18] MEDS: guaiFENesin 600 MG TABCR PO SCH ×2 (09:53→21:43)
[2021-03-18] MEDS: AMOXICILLIN/CLAVULANATE 875 MG TAB PO SCH ×2 (09:53→21:49)
[2021-03-18] MEDS: INSULIN ASPART 100 UNITS/ML 3 ML PEN SC SCH ×4 (09:55→22:30)
[2021-03-18] MEDS: FUROSEMIDE 20 MG TAB PO SCH (09:55)
--- NOTE | 2021-03-18 12:44 | Communication Note ---
Date of Service: March 18, 2021 Patient seen while sitting up on side of bed eating lunch. Left shoulder pain reduced after steroid injection given yesterday. Breathing stable. No CP or SOB. Left shoulder exam improved. Benign. Continued stiffness with less pain during PROM/AROM compared to yesterday. DNVSI. Warm. Impression: Adhesive capsulitis left shoulder improved after steroid injection 03/17/[address] Cast Rec: Begin PT left shoulder while here in hospital and transition to outpatient PT with follow-up scheduled with Dr Cast in 3-6 weeks as outpatient.
--- NOTE | 2021-03-18 14:12 | Consultation Report ---
DATE OF CONSULTATION: 03/17/2021. HISTORY OF PRESENT ILLNESS: The patient was seen at bedside. He is resting comfortably, alert and or iented x3. Speech is clear and fluent. Significant left shoulder discomfort continued from previous day evaluation. Continued to have difficulty with abduction, external rotation and forward elevatio n. Breathing is stable. No current SOB or CP. PHYSICAL EXAM: Examination of the left shoulder demonstrates skin warm, dry and intact. Cap refill less than 2 seconds. Radial pulse 2/4, radial, ulnar, median, and axillary nerve sensory and motor f unction intact. Continued to have limited active and passive range of motion of the left shoulder be yond 70-80 degrees of forward elevation, external rotation or abduction. Limitation with external ro tation is significant. PROCEDURE: Under sterile technique with Betadine and alcohol prep, ethyl chloride was used as a refr igerant for the left shoulder posterior approach and 2 mL of 80 mg per mL Depo-Medrol and 0.5% by 6 m L of 0.5% Marcaine was then injected in the left shoulder. The patient tolerated the procedure well. ASSESSMENT AND PLAN: He was given post-injection instructions. Ice to the left shoulder. May use th e left shoulder ad negin. We will reassess on 03/18/2021 for efficacy. Job ID: [id number]
--- NOTE | 2021-03-18 14:59 | Hospitalist Progress Note ---
Date of Service March 18, 2021 Assessment & Plan (1) Multifocal pneumonia: Plan: per Dr. Ramos's notes: Multifocal pneumonia Hypoxia CXR:Multifocal airspace opacities are seen, right greater than left. Cardiomegaly. Procalcitonin 0.13 COVID neg Positive MRSA screen Sputum culture normal leo Blood culture negative to date Continue Vanco, Zosyn for now Continue supplemental oxygen as needed Nebs as needed Saturating low 90s on room air De-escalate to p.o. doxycycline, Augmentin after 5-day course of IV antibiotics tmw Monitor CBC and consider to hold Plavix if recurrent No hemoptysis today Consider pulmonary evaluation. Video swallow showed no significant laryngeal penetration or aspiration. May need 2 step prior to discharge 03/18 respiratory status remains stable on 2 L O2 NC continue PO Doxycycline + Augmentin Day 4/ (antibiotic day 09/29) monitor wean off O2 supplement accordingly (2) Encephalopathy: Plan: per Dr. Ramos's notes: - Change in mental status per nursing staff at [facility] -Likely metabolic encephalopathy -CT Head:No significant change compared to the prior study. No acute intracranial abnormality. Mental status seem to be back to baseline Continue reorient frequently to avoid delirium 03/18 back to baseline (3) COPD (chronic obstructive pulmonary disease): Plan: Chronic prednisone 5 mg daily at baseline Continue home inhalers, nebs (4) Chronic diastolic heart failure: Plan: per Dr. Ramos's notes: H/O A.flutter Not anticoagulated due to fall risk -Last echo 09/09/20 showing EF of 60 to 64%, LV wall thickness moderately increased, concentric, s/p TAVR with CoreValve prosthesis valve, mild perivalvular aortic valve prosthesis regurg, mild tricuspid regurg, mild pulmonary hypertension, estimated pulmonary artery systolic pressure of 40 to 45 mmHg. -Troponin elevated at 0.077-->0.081 setting of CKD, likely demand ischemia -low suspicion for ACS, EKG without acute changes. 03/18 euvolemic resumed Lasix 20mg po daily (5) Acute kidney injury superimposed on CKD: Plan: per Dr. Ramos's notes: - Cr. 1.66 on admission, appears baseline is ~ 1.2-1.4 Monitor volume status Avoid nephrotoxic agents as able Cr worsened to 1.6 today We will hold Lasix today Gentle IV fluids Bladder Alford PRN 03/18 crea improved from 1.6 to 1.4 baseline 1.2 back to baseline (6) Peripheral vascular disease: Plan: continue home medications HTN Increased amlodipine to 10 mg daily Metoprolol increased to 50 mg daily -- BP seems to be improving L shoulder pain - Xray: no fractures - chronic rotator cuff injury - s/p Steroid injection 03/17 - pain improving DVT Px Heparin SQ--held due to hemoptysis CODE: Full code Disposition awaiting acceptance to SNF Admission and Anticipated Discharge Date Admission Date: March 10, 2021 Subjective ff up for pneumonia etc seen resting in bed, comfortable sitting up in good spirits breathing is fine no cough L shoulder pain better after injection no other symptoms Review of Systems Constitutional: all noted and negative except for above Physical Exam Physical Exam: General- oriented x 3, not in distress, speaks in sentences with no effort or accessory muscle use Eyes- anicteric Neck- no JVD Lungs- clear breath sounds bilaterally, no rales/wheezes Heart- normal rate, regular rhythm; no murmurs Abdomen- normal bowel sounds, nondistended, soft, nontender Extremities- no pretibial edema, no calf tenderness Neuro- alert, oriented x 3; no gross focal neurologic deficits Skin- warm & dry Results & Data Results & Data ([facility]) Vital Signs (Past 12 Hours) Vital Signs Temp Pulse Pulse Resp BP BP Pulse Ox 03/18/21 11:14 36.8 C 89 18 151/81 H 97 03/18/21 09:00 87 03/18/21 08:01 36.4 C L 85 18 170/91 H 97 03/18/21 03:44 36.6 C 83 20 169/94 H 98 all noted and reviewed including below
[2021-03-18] MEDS: TAMSULOSIN HCL 0.4 MG CAP PO SCH (21:43)
[2021-03-18] MEDS: ATORVASTATIN 40 MG TAB PO SCH (21:47)
[2021-03-19] MEDS: LEVOTHYROXINE SODIUM 75 MCG TABLET PO SCH (05:54)
[2021-03-19] MEDS: amLODIPine BESYLATE 5 MG TAB PO SCH (08:46)
[2021-03-19] MEDS: GABAPENTIN 300 MG CAP PO SCH ×3 (08:47→21:20)
[2021-03-19] MEDS: AMOXICILLIN/CLAVULANATE 875 MG TAB PO SCH ×2 (08:47→21:21)
[2021-03-19] MEDS: CHOLECALCIFEROL 1,000 UNITS 25 MCG TAB PO SCH (08:47)
[2021-03-19] MEDS: CEROVITE ADV FORMULA TAB PO SCH (08:47)
[2021-03-19] MEDS: FINASTERIDE 5 MG TAB PO SCH (08:47)
[2021-03-19] MEDS: allopurinoL 300 MG TAB PO SCH (08:47)
[2021-03-19] MEDS: MIRABEGRON ER 25 MG TAB PO SCH (08:47)
[2021-03-19] MEDS: MAGNESIUM OXIDE 400 MG TAB PO SCH ×2 (08:48→21:20)
[2021-03-19] MEDS: CLOPIDOGREL BISULFATE 75 MG TAB PO SCH (08:48)
[2021-03-19] MEDS: predniSONE 5 MG TAB PO SCH (08:48)
[2021-03-19] MEDS: METOPROLOL SUCC 50MG EXT REL TAB PO SCH (08:48)
[2021-03-19] MEDS: DOXYCYCLINE HYCLATE 100 MG CAP PO SCH ×2 (08:49→21:23)
[2021-03-19] MEDS: FLUTICASONE FUROATE 100MCG 14 PUFFS/INHALER INH SCH (08:49)
[2021-03-19] MEDS: FERROUS SULFATE 325 MG TAB PO SCH (08:49)
[2021-03-19] MEDS: guaiFENesin 600 MG TABCR PO SCH ×2 (08:49→21:20)
[2021-03-19] MEDS: MENTHOL-ZINC OXIDE 360 APPLN/120 GM TUBE EXT SCH ×3 (08:51→21:23)
[2021-03-19] MEDS: INSULIN ASPART 100 UNITS/ML 3 ML PEN SC SCH ×4 (09:00→21:19)
[2021-03-19] MEDS: FUROSEMIDE 20 MG TAB PO SCH (11:54)
[2021-03-19] MEDS: hydrALAZINE HCL 25 MG TAB PO SCH ×2 (11:54→21:22)
--- NOTE | 2021-03-19 12:20 | Hospitalist Progress Note ---
Date of Service March 19, 2021 Assessment & Plan (1) Multifocal pneumonia: Plan: per Dr. Ramos's notes: Multifocal pneumonia Hypoxia CXR:Multifocal airspace opacities are seen, right greater than left. Cardiomegaly. Procalcitonin 0.13 COVID neg Positive MRSA screen Sputum culture normal leo Blood culture negative to date Continue Vanco, Zosyn for now Continue supplemental oxygen as needed Nebs as needed Saturating low 90s on room air De-escalate to p.o. doxycycline, Augmentin after 5-day course of IV antibiotics tmw Monitor CBC and consider to hold Plavix if recurrent No hemoptysis today Consider pulmonary evaluation. Video swallow showed no significant laryngeal penetration or aspiration. May need 2 step prior to discharge 03/19 respiratory status remains stable Weaned off oxygen supplementation, currently on room air continue PO Doxycycline + Augmentin Day 08/24 (antibiotic day 09/29) monitor (2) Encephalopathy: Plan: per Dr. Ramos's notes: - Change in mental status per nursing staff at [facility] -Likely metabolic encephalopathy -CT Head:No significant change compared to the prior study. No acute intracranial abnormality. Mental status seem to be back to baseline Continue reorient frequently to avoid delirium 03/19 Patient slightly confused today Likely secondary to steroid injection in the left shoulder Continue delirium prevention strategies (3) COPD (chronic obstructive pulmonary disease): Plan: Chronic prednisone 5 mg daily at baseline Continue home inhalers, nebs (4) Chronic diastolic heart failure: Plan: per Dr. Ramos's notes: H/O A.flutter Not anticoagulated due to fall risk -Last echo 09/09/20 showing EF of 60 to 64%, LV wall thickness moderately increased, concentric, s/p TAVR with CoreValve prosthesis valve, mild perivalvular aortic valve prosthesis regurg, mild tricuspid regurg, mild pulmonary hypertension, estimated pulmonary artery systolic pressure of 40 to 45 mmHg. -Troponin elevated at 0.077-->0.081 setting of CKD, likely demand ischemia -low suspicion for ACS, EKG without acute changes. 03/19 euvolemic resumed Lasix 20mg po daily (5) Acute kidney injury superimposed on CKD: Plan: per Dr. Ramos's notes: - Cr. 1.66 on admission, appears baseline is ~ 1.2-1.4 Monitor volume status Avoid nephrotoxic agents as able Cr worsened to 1.6 today We will hold Lasix today Gentle IV fluids Bladder Alford PRN 03/19 crea improved from 1.6 to 1.4 baseline 1.2 back to baseline (6) Peripheral vascular disease: Plan: continue home medications HTN Increased amlodipine to 10 mg daily Metoprolol increased to 50 mg daily -- BP not at goal Possibly from steroid injection As needed hydralazine IV Monitor closely L shoulder pain - Xray: no fractures - chronic rotator cuff injury - s/p Steroid injection 03/17 - pain improving DVT Px Heparin SQ--held due to hemoptysis SCDs ambulation CODE: Full code Disposition awaiting acceptance to SNF Admission and Anticipated Discharge Date Admission Date: March 10, 2021 Subjective Follow-up for multifocal pneumonia, left shoulder pain, etc. Seen resting in bed, not in distress but occasionally seems to be confused Oriented x2, answers most questions appropriately but intermittently goes off tangent Easily reoriented States breathing is fine, no cough Left shoulder pain continues to improve No other symptoms Review of Systems Review of Systems: all noted and negative except for above Physical Exam Physical Exam: General- oriented x 2, not in distress, speaks in sentences with no effort or accessory muscle use Eyes- anicteric Neck- no JVD Lungs-somewhat diminished but clear breath sounds bilaterally Heart- normal rate, regular rhythm; no murmurs Abdomen- normal bowel sounds, nondistended, soft, nontender Extremities- no pretibial edema, no calf tenderness Left shoulder-edema, warmth mild Better range of motion Neuro- alert, oriented x 2; no new gross focal neurologic deficits Skin- warm & dry Results & Data Results & Data ([facility]) Vital Signs (Past 12 Hours) Vital Signs Temp Pulse Pulse Resp BP Pulse Ox 03/19/21 07:47 36.7 C 88 18 171/96 H 91 03/19/21 07:00 89 03/19/21 03:07 36.8 C 88 20 179/91 H 93 all noted and reviewed including below
[2021-03-19] MEDS ORDERED: hydrALAZINE HCL 20 MG/ML VIAL IV PRN (15:24)
[2021-03-19] MEDS: TAMSULOSIN HCL 0.4 MG CAP PO SCH (21:20)
[2021-03-19] MEDS: ATORVASTATIN 40 MG TAB PO SCH (21:21)
[2021-03-20] MEDS: LEVOTHYROXINE SODIUM 75 MCG TABLET PO SCH (06:28)
[2021-03-20] MEDS: CLOPIDOGREL BISULFATE 75 MG TAB PO SCH (09:21)
[2021-03-20] MEDS: CHOLECALCIFEROL 1,000 UNITS 25 MCG TAB PO SCH (09:21)
[2021-03-20] MEDS: DOXYCYCLINE HYCLATE 100 MG CAP PO SCH ×2 (09:21→20:42)
[2021-03-20] MEDS: hydrALAZINE HCL 25 MG TAB PO SCH ×2 (09:21→20:42)
[2021-03-20] MEDS: GABAPENTIN 300 MG CAP PO SCH ×3 (09:21→20:42)
[2021-03-20] MEDS: amLODIPine BESYLATE 5 MG TAB PO SCH (09:21)
[2021-03-20] MEDS: allopurinoL 300 MG TAB PO SCH (09:21)
[2021-03-20] MEDS: MIRABEGRON ER 25 MG TAB PO SCH (09:21)
[2021-03-20] MEDS: MAGNESIUM OXIDE 400 MG TAB PO SCH ×2 (09:22→20:43)
[2021-03-20] MEDS: AMOXICILLIN/CLAVULANATE 875 MG TAB PO SCH ×2 (09:22→20:41)
[2021-03-20] MEDS: guaiFENesin 600 MG TABCR PO SCH ×2 (09:22→20:43)
[2021-03-20] MEDS: predniSONE 5 MG TAB PO SCH (09:22)
[2021-03-20] MEDS: CEROVITE ADV FORMULA TAB PO SCH (09:22)
[2021-03-20] MEDS: FLUTICASONE FUROATE 100MCG 14 PUFFS/INHALER INH SCH (09:22)
[2021-03-20] MEDS: FINASTERIDE 5 MG TAB PO SCH (09:22)
[2021-03-20] MEDS: FERROUS SULFATE 325 MG TAB PO SCH (09:22)
[2021-03-20] MEDS: METOPROLOL SUCC 50MG EXT REL TAB PO SCH (09:22)
[2021-03-20] MEDS: MENTHOL-ZINC OXIDE 360 APPLN/120 GM TUBE EXT SCH ×3 (09:24→20:51)
[2021-03-20] MEDS: INSULIN ASPART 100 UNITS/ML 3 ML PEN SC SCH ×4 (09:24→21:00)
[2021-03-20] MEDS: FUROSEMIDE 20 MG TAB PO SCH (09:32)
--- NOTE | 2021-03-20 10:01 | Hospitalist Progress Note ---
Date of Service March 20, 2021 Assessment & Plan (1) Hypoxia: (2) Multifocal pneumonia: Plan: -Patient presented from [facility] for AMS and increased weakness. Initially required 3 L of oxygen. -Admitting CXR: Multifocal airspace opacities are seen, right greater than left. Cardiomegaly. -COVID-19 negative, positive MRSA screen -Initially received IV Vanco and Zosyn which was deescalated to Augmentin and doxycycline (day 09/29) -Blood cultures negative -Sputum culture normal leo -Video swallow showed no significant laryngeal penetration or aspiration. -Had been weaned to room air however patient was on 2 L this morning during exam, no documented hypoxia. Continue to monitor (3) Encephalopathy: Plan: -resolved -patient's mental status seems to be at baseline -Likely metabolic cephalopathy in the setting of infection -CT Head:No significant change compared to the prior study. No acute intracranial abnormality. -Continue delirium precautions (4) Acute kidney injury superimposed on CKD: Plan: -Resolved -Cr. 1.66 on admission, appears baseline is ~ 1.2-1.4 -Lasix was held and patient received IVF with improvement in creatinine, creatinine 1.1 on 03/16 (5) Elevated troponin: Plan: -Troponin elevated at 0.077-->0.081 in the setting of CKD, likely demand ischemia -low suspicion for ACS, EKG without acute changes. (6) COPD (chronic obstructive pulmonary disease): Plan: -Chronic prednisone 5 mg daily at baseline -Continue home inhalers, nebs -No signs of acute exacerbation (7) Chronic diastolic heart failure: Plan: -Appears euvolemic, typically managed on Lasix 60 mg daily -Lasix 20 mg daily resumed on 03/17 -Last echo 09/09/20 showing EF of 60 to 64%, LV wall thickness moderately incr eased, concentric, s/p TAVR with CoreValve prosthesis valve, mild perivalvular aortic valve prosthesis regurg, mild tricuspid regurg, mild pulmonary hypertension, estimated pulmonary artery systolic pressure of 40 to 45 mmHg. (8) H/O atrial flutter: Plan: -Not anticoagulated due to fall risk, rate controlled on metoprolol (9) Hypertension: Plan: -Elevated BP during admission, amlodipine increased to 10 mg daily and metoprolol succinate to 50 mg daily -BP remains variable however overall better control. No further medication adjustments at this time -Continue as needed hydralazine (10) Left shoulder pain: Plan: - Xray: no fractures - chronic rotator cuff injury - s/p Steroid injection on 03/[address] Cast - Further Ortho recommendations: Begin PT left shoulder while here in hospital and transition to outpatient PT with follow-up scheduled with Dr Cast in 3-6 weeks as outpatient (11) Peripheral vascular disease: Plan: -Continue statin and Plavix (12) DVT prophylaxis: Plan: -SQ heparin has been on hold due to hemoptysis, will resume today given no further episodes of hemoptysis Dispo: Awaiting for placement to [facility] vs [facility] Admission and Anticipated Discharge Date Admission Date: March 10, 2021 Supervising Physician Co-Signing Physician Notes Attending Addendum: delayed entry date of service noted above care coordinated with CNJYOTI Ridley please refer to her notes for full details, I agree with her notes patient seen and examined, records reviewed by myself as well on exam, patient seen resting in wheelchair states he feels fine overall no chest pain, dyspnea, palpitations, dizziness VS noted and reviewed oriented x 3, not in distress, speaks in sentences with no effort nor accessory muscle use normal rate, regular rhythm, no murmurs clear breath sounds bilaterally non distended, soft, nontender no bipedal edema, erythema, warmth no neuro deficits all labs noted and reviewed ASSESSMENT AND PLAN> Multifocal PNA - resolved - completed course of antbx on room air L shoulder pain - much better after Steroid injection other diagnoses and plan of care as per SUPPORT CLERKBOONE Ridley's notes Blake Silverman MD Subjective Patient seen and examined. Follow-up for multifocal pneumonia and hypoxia. Patient somewhat irritable this morning. On 2 L of oxygen however no documented hypoxia. Offers no complaints however resistant to answer questions at times. Denies chest pain and shortness of breath. No further cough. No abdominal pain or nausea. Physical Exam Constitutional: WD/WN, vitals as above no acute distress Respiratory: normal respiratory effort; no respiratory distress Auscultation: + diminished lung sounds (Bilateral) Cardiovascular: Rate/Rhythm: regular rate and regular rhythm Vessels: normal peripheral pulses Extremities: no edema Gastrointestinal (Abdomen): Percussion/Palpation: abdomen soft; abdomen nontender Musculoskeletal: Toe amputations noted Skin: no rashes, warm and dry Neurologic: no focal motor deficits Psychiatric: Orientation: alert, oriented to person and oriented to place; + not oriented to time Affect: + irritable affect Results & Data Results & Data ([facility]) Vital Signs (Past 12 Hours) Vital Signs Temp Pulse Resp BP BP Pulse Ox 03/20/21 06:34 36.5 C 74 16 149/87 H 100 03/20/21 01:10 36.5 C 80 16 158/83 H 97 03/19/21 22:52 36.7 C 83 18 156/85 H 94
[2021-03-20 14:25] LABS: Hematocrit (blood only) 44.6 % (42-52); Mean Corpuscular Hemoglobin 28.6 pg (25-34); Mean Corpuscular Hgb Conc 31.4 g/dL (32-36); Mean Corpuscular Volume 91.2 fL (80-100); Mean Platelet Volume 9.5 fL (7.4-10.4); Platelet Count 248 K/uL (130-400); RDW Coefficient of Variation 14.5 % (11.5-14.5); RDW Standard Deviation 48.4 fL (36.4-46.3); Red Blood Count 4.89 M/uL (4.7-6.1); White Blood Count 10.26 K/uL (4.8-10.8)
[2021-03-20] MEDS: HEPARIN SOD 5,000 UNIT/0.5 ML VIAL SQ SCH (20:40)
[2021-03-20] MEDS: TAMSULOSIN HCL 0.4 MG CAP PO SCH (20:41)
[2021-03-20] MEDS: ATORVASTATIN 40 MG TAB PO SCH (20:41)
[2021-03-21] MEDS: LEVOTHYROXINE SODIUM 75 MCG TABLET PO SCH (05:42)
[2021-03-21] MEDS: CHOLECALCIFEROL 1,000 UNITS 25 MCG TAB PO SCH (09:23)
[2021-03-21] MEDS: guaiFENesin 600 MG TABCR PO SCH ×2 (09:23→20:35)
[2021-03-21] MEDS: amLODIPine BESYLATE 5 MG TAB PO SCH (09:24)
[2021-03-21] MEDS: hydrALAZINE HCL 25 MG TAB PO SCH ×2 (09:24→20:39)
[2021-03-21] MEDS: METOPROLOL SUCC 50MG EXT REL TAB PO SCH (09:25)
[2021-03-21] MEDS: FINASTERIDE 5 MG TAB PO SCH (09:25)
[2021-03-21] MEDS: CLOPIDOGREL BISULFATE 75 MG TAB PO SCH (09:26)
[2021-03-21] MEDS: HEPARIN SOD 5,000 UNIT/0.5 ML VIAL SQ SCH ×2 (09:26→20:40)
[2021-03-21] MEDS: predniSONE 5 MG TAB PO SCH (09:26)
[2021-03-21] MEDS: AMOXICILLIN/CLAVULANATE 875 MG TAB PO SCH ×2 (09:26→20:39)
[2021-03-21] MEDS: DOXYCYCLINE HYCLATE 100 MG CAP PO SCH ×2 (09:26→20:39)
[2021-03-21] MEDS: GABAPENTIN 300 MG CAP PO SCH ×3 (09:27→20:36)
[2021-03-21] MEDS: FERROUS SULFATE 325 MG TAB PO SCH (09:27)
[2021-03-21] MEDS: MAGNESIUM OXIDE 400 MG TAB PO SCH ×2 (09:27→20:36)
[2021-03-21] MEDS: MIRABEGRON ER 25 MG TAB PO SCH (09:27)
[2021-03-21] MEDS: allopurinoL 300 MG TAB PO SCH (09:27)
[2021-03-21] MEDS: FLUTICASONE FUROATE 100MCG 14 PUFFS/INHALER INH SCH (09:28)
[2021-03-21] MEDS: MENTHOL-ZINC OXIDE 360 APPLN/120 GM TUBE EXT SCH ×3 (09:28→20:37)
[2021-03-21] MEDS: CEROVITE ADV FORMULA TAB PO SCH (09:30)
[2021-03-21] MEDS: INSULIN ASPART 100 UNITS/ML 3 ML PEN SC SCH ×4 (09:31→20:37)
[2021-03-21] MEDS: FUROSEMIDE 20 MG TAB PO SCH (10:11)
--- NOTE | 2021-03-21 16:31 | Hospitalist Progress Note ---
Date of Service March 21, 2021 Assessment & Plan (1) Hypoxia: (2) Multifocal pneumonia: Plan: -Patient presented from [facility] for AMS and increased weakness. Initially required 3 L of oxygen. -Admitting CXR: Multifocal airspace opacities are seen, right greater than left. Cardiomegaly. -COVID-19 negative, positive MRSA screen -Initially received IV Vanco and Zosyn which was deescalated to Augmentin and doxycycline (day 01/29 of total antibiotics) -Blood cultures negative -Sputum culture normal leo -Video swallow showed no significant laryngeal penetration or aspiration. -Weaned to room air, intermittently requiring 2 L of oxygen however no doc umented hypoxia. Saturating well on room air this morning. (3) Encephalopathy: Plan: -resolved -patient's mental status seems to be at baseline -Likely metabolic cephalopathy in the setting of infection -CT Head:No significant change compared to the prior study. No acute intracranial abnormality. -Continue delirium precautions (4) Acute kidney injury superimposed on CKD: Plan: -Resolved -Cr. 1.66 on admission, appears baseline is ~ 1.2-1.4 -Lasix was held and patient received IVF with improvement in creatinine, creatinine 1.1 on 03/16 (5) Elevated troponin: Plan: -Troponin elevated at 0.077-->0.081 in the setting of CKD, likely demand ischemia -low suspicion for ACS, EKG without acute changes. (6) COPD (chronic obstructive pulmonary disease): Plan: -Chronic prednisone 5 mg daily at baseline -Continue home inhalers, nebs -No signs of acute exacerbation (7) Chronic diastolic heart failure: Plan: -Appears euvolemic, typically managed on Lasix 60 mg daily -Lasix 20 mg daily resumed on 03/17 -Last echo 09/09/20 showing EF of 60 to 64%, LV wall thickness moderately increased, concentric, s/p TAVR with CoreValve prosthesis valve, mild perivalvular aortic valve prosthesis regurg, mild tricuspid regurg, mild pulmonary hypertension, estimated pulmonary artery systolic pressure of 40 to 45 mmHg. (8) H/O atrial flutter: Plan: -Not anticoagulated due to fall risk, rate controlled on metoprolol (9) Hypertension: Plan: -Elevated BP during admission, amlodipine increased to 10 mg daily and metoprolol succinate to 50 mg daily -BP remains variable however overall better control. No further medication adjustments at this time -Continue as needed hydralazine (10) Left shoulder pain: Plan: - Xray: no fractures - chronic rotator cuff injury - s/p Steroid injection on 03/[address] Cast - Further Ortho recommendations: Begin PT left shoulder while here in hospital and transition to outpatient PT with follow-up scheduled with Dr Cast in 3-6 weeks as outpatient (11) Peripheral vascular disease: Plan: -Continue statin and Plavix (12) DVT prophylaxis: Plan: -SQ heparin Dispo: Awaiting for placement to [facility] vs return to [facility] Admission and Anticipated Discharge Date Admission Date: March 10, 2021 Supervising Physician Co-Signing Physician Notes Attending Addendum: delayed entry date of service noted above care coordinated with CNRP Diane Ridley please refer to her notes for full details, I agree with her notes patient seen and examined, records reviewed by myself as well on exam, patient seen resting in wheelchair states he feels fine overall no chest pain, dyspnea, palpitations, dizziness VS noted and reviewed oriented x 3, not in distress, speaks in sentences with no effort nor accessory muscle use normal rate, regular rhythm, no murmurs clear breath sounds bilaterally non distended, soft, nontender no bipedal edema, erythema, warmth no neuro deficits all labs noted and reviewed ASSESSMENT AND PLAN> Multifocal PNA - resolved - completed course of antbx on room air L shoulder pain - much better after Steroid injection other diagnoses and plan of care as per [employer] IN[employer]IGATOR[employer] Ridley's notes Blake Silverman MD Subjective Patient seen and examined. Follow-up for multifocal pneumonia. Patient's mood much better today. Sitting up in wheelchair, moving himself around his room. Patient is alert, oriented, chatty. Offers no complaints. Denies chest pain, shortness of breath, cough. No abdominal pain or nausea. Moving bowels and urinating without difficulty. Physical Exam Constitutional: WD/WN, vitals as above no acute distress Sitting up in the wheelchair Respiratory: normal respiratory effort, lungs clear to auscultation Cardiovascular: Rate/Rhythm: regular rate and regular rhythm Vessels: normal peripheral pulses Extremities: no edema Gastrointestinal (Abdomen): Percussion/Palpation: abdomen soft; abdomen nontender Skin: no rashes, warm and dry Neurologic: no focal motor deficits Psychiatric: A+Ox3, euthymic affect Results & Data Results & Data ([facility]) Vital Signs (Past 12 Hours) Vital Signs Temp Pulse Resp BP Pulse Ox 03/21/21 16:04 36.5 C 87 18 170/95 H 92 03/21/21 07:52 36.7 C 79 16 142/92 H 96
[2021-03-21] MEDS: ATORVASTATIN 40 MG TAB PO SCH (20:35)
[2021-03-21] MEDS: TAMSULOSIN HCL 0.4 MG CAP PO SCH (20:36)
[2021-03-22] MEDS: LEVOTHYROXINE SODIUM 75 MCG TABLET PO SCH (06:50)
[2021-03-22] MEDS: CLOPIDOGREL BISULFATE 75 MG TAB PO SCH (08:35)
[2021-03-22] MEDS: hydrALAZINE HCL 25 MG TAB PO SCH ×2 (08:35→21:13)
[2021-03-22] MEDS: amLODIPine BESYLATE 5 MG TAB PO SCH (08:35)
[2021-03-22] MEDS: CEROVITE ADV FORMULA TAB PO SCH (08:35)
[2021-03-22] MEDS: GABAPENTIN 300 MG CAP PO SCH ×3 (08:35→21:13)
[2021-03-22] MEDS: CHOLECALCIFEROL 1,000 UNITS 25 MCG TAB PO SCH (08:35)
[2021-03-22] MEDS: MIRABEGRON ER 25 MG TAB PO SCH (08:36)
[2021-03-22] MEDS: MAGNESIUM OXIDE 400 MG TAB PO SCH ×2 (08:36→21:13)
[2021-03-22] MEDS: allopurinoL 300 MG TAB PO SCH (08:36)
[2021-03-22] MEDS: predniSONE 5 MG TAB PO SCH (08:36)
[2021-03-22] MEDS: guaiFENesin 600 MG TABCR PO SCH ×2 (08:36→21:13)
[2021-03-22] MEDS: METOPROLOL SUCC 50MG EXT REL TAB PO SCH (08:36)
[2021-03-22] MEDS: FINASTERIDE 5 MG TAB PO SCH (08:36)
[2021-03-22] MEDS: FERROUS SULFATE 325 MG TAB PO SCH (08:36)
[2021-03-22] MEDS: HEPARIN SOD 5,000 UNIT/0.5 ML VIAL SQ SCH ×2 (08:37→19:59)
[2021-03-22] MEDS: FLUTICASONE FUROATE 100MCG 14 PUFFS/INHALER INH SCH (08:37)
[2021-03-22] MEDS: FUROSEMIDE 20 MG TAB PO SCH (08:38)
[2021-03-22] MEDS: MENTHOL-ZINC OXIDE 360 APPLN/120 GM TUBE EXT SCH ×3 (08:38→21:13)
[2021-03-22] MEDS: INSULIN ASPART 100 UNITS/ML 3 ML PEN SC SCH ×4 (09:19→21:14)
--- NOTE | 2021-03-22 16:53 | Hospitalist Progress Note ---
Date of Service March 22, 2021 Assessment & Plan (1) Hypoxia: (2) Multifocal pneumonia: Plan: -Patient presented from [facility] for AMS and increased weakness. Initially required 3 L of oxygen. -Admitting CXR: Multifocal airspace opacities are seen, right greater than left. Cardiomegaly. -COVID-19 negative, positive MRSA screen -Initially received IV Vanco and Zosyn which was deescalated to Augmentin and doxycycline (patient completed 10-day course of antibiotics on 03/21) -Blood cultures negative -Sputum culture normal leo -Video swallow showed no significant laryngeal penetration or aspiration. -Weaned to room air, intermittently requiring 2 L of oxygen however no recent documented hypoxia. Saturating well on room air this morning. (3) Encephalopathy: Plan: -resolved -patient's mental status seems to be at baseline -Likely metabolic cephalopathy in the setting of infection -CT Head:No significant change compared to the prior study. No acute intracranial abnormality. -Continue delirium precautions (4) Acute kidney injury superimposed on CKD: Plan: -Resolved -Cr. 1.66 on admission, appears baseline is ~ 1.2-1.4 -Lasix was held and patient received IVF with improvement in creatinine, creatinine 1.1 on 03/16 (5) Elevated troponin: Plan: -Troponin elevated at 0.077-->0.081 in the setting of CKD, likely demand ischemia -low suspicion for ACS, EKG without acute changes. (6) COPD (chronic obstructive pulmonary disease): Plan: -Chronic prednisone 5 mg daily at baseline -Continue home inhalers, nebs -No signs of acute exacerbation (7) Chronic diastolic heart failure: Plan: -Appears euvolemic, typically managed on Lasix 60 mg daily -Lasix 20 mg daily resumed on 03/17 -Last echo 09/09/20 showing EF of 60 to 64%, LV wall thickness moderately increased, concentric, s/p TAVR with CoreValve prosthesis valve, mild perivalvular aortic valve prosthesis regurg, mild tricuspid regurg, mild pulmonary hypertension, estimated pulmonary artery systolic pressure of 40 to 45 mmHg. (8) H/O atrial flutter: Plan: -Not anticoagulated due to fall risk, rate controlled on metoprolol (9) Hypertension: Plan: -Elevated BP during admission, amlodipine increased to 10 mg daily and metoprolol succinate to 50 mg daily -BP remains variable however overall better control. No further medication adjustments at this time -Continue as needed hydralazine (10) Left shoulder pain: Plan: - Xray: no fractures - chronic rotator cuff injury - s/p Steroid injection on 03/[address] Cast - Further Ortho recommendations: Begin PT left shoulder while here in hospital and transition to outpatient PT with follow-up scheduled with Dr Cast in 3-6 weeks as outpatient (11) Peripheral vascular disease: Plan: -Continue statin and Plavix (12) DVT prophylaxis: Plan: -SQ heparin Dispo: Awaiting for placement to [facility] vs return to [facility] Admission and Anticipated Discharge Date Admission Date: March 10, 2021 Supervising Physician Co-Signing Physician Notes Patient is seen and examined at bedside. States feeling well today. Denies any chest pain, shortness of breath, cough. Waiting for rehab placement. Agree with examination as above. Patient is being treated for multifocal pneumonia, MAXI, encephalopathy, left shoulder pain status post injection. Patient completed antibiotic course. Mental status back to baseline. Renal function returned to normal. And to discharge to rehab facility when arranged. I personally reviewed the record. Patient is interviewed and examined at bedside. Patient's care is coordinated with Diane Ridley [employer]ST CONTROL SPECIALIST. Please refer to the documentation above for d etails of patient's presentation and for discussion of other issues. Subjective Patient seen and examined. Follow-up for multifocal pneumonia. Sitting up in the wheelchair. Offers no complaints. Patient is alert, oriented, chatty. Denies chest pain, shortness of breath, cough. No abdominal pain or nausea. Moving bowels and urinating without difficulty. Review of Systems Review of Systems: All systems reviewed & are unremarkable except as noted in Subjective Physical Exam Physical Exam: Physical Exam: Vitals signs as noted above General Appearance:Moderately built and nourished, no apparent distress, Elderly Head: normocephalic, Atraumatic Eyes: normal inspection, EOMI Neck: supple, Trachea midline Respiratory/Chest: Decreased breath sounds, CTA Cardiovascular: S1, S2, No murmur Abdomen/GI:Soft, Non tender, Bowel sounds present Extremities/Musculoskeletal:normal inspection, Trace edema Neurologic/Psych:AAOX2, grossly no focal neurological deficits, +Hearing impair ment Skin: normal color, warm Results & Data Results & Data ([facility]) Vital Signs (Past 12 Hours) Vital Signs Temp Pulse Resp BP Pulse Ox 03/22/21 16:07 36.8 C 65 16 130/81 92 03/22/21 07:48 36.7 C 73 16 157/93 H 93
[2021-03-22] MEDS: TAMSULOSIN HCL 0.4 MG CAP PO SCH (21:13)
[2021-03-22] MEDS: ATORVASTATIN 40 MG TAB PO SCH (21:13)
[2021-03-23] MEDS: LEVOTHYROXINE SODIUM 75 MCG TABLET PO SCH (05:50)
[2021-03-23 07:01] LABS: Hematocrit (blood only) 38.8 % (42-52); Hemoglobin 12.3 g/dL (14.0-18.0); Mean Corpuscular Hemoglobin 28.3 pg (25-34); Mean Corpuscular Hgb Conc 31.7 g/dL (32-36); Mean Corpuscular Volume 89.4 fL (80-100); Mean Platelet Volume 9.8 fL (7.4-10.4); Platelet Count 236 K/uL (130-400); RDW Coefficient of Variation 14.6 % (11.5-14.5); RDW Standard Deviation 47.9 fL (36.4-46.3); Red Blood Count 4.34 M/uL (4.7-6.1); White Blood Count 6.73 K/uL (4.8-10.8)
[2021-03-23] MEDS: INSULIN ASPART 100 UNITS/ML 3 ML PEN SC SCH ×4 (08:46→20:29)
[2021-03-23] MEDS: FLUTICASONE FUROATE 100MCG 14 PUFFS/INHALER INH SCH (08:48)
[2021-03-23] MEDS: HEPARIN SOD 5,000 UNIT/0.5 ML VIAL SQ SCH ×2 (08:48→20:26)
[2021-03-23] MEDS: METOPROLOL SUCC 50MG EXT REL TAB PO SCH (08:48)
[2021-03-23] MEDS: MAGNESIUM OXIDE 400 MG TAB PO SCH ×2 (08:48→20:27)
[2021-03-23] MEDS: amLODIPine BESYLATE 5 MG TAB PO SCH (08:48)
[2021-03-23] MEDS: GABAPENTIN 300 MG CAP PO SCH ×3 (08:49→20:27)
[2021-03-23] MEDS: hydrALAZINE HCL 25 MG TAB PO SCH ×2 (08:49→20:26)
[2021-03-23] MEDS: guaiFENesin 600 MG TABCR PO SCH ×2 (08:49→20:26)
[2021-03-23] MEDS: MENTHOL-ZINC OXIDE 360 APPLN/120 GM TUBE EXT SCH ×3 (08:50→20:27)
[2021-03-23] MEDS: MIRABEGRON ER 25 MG TAB PO SCH (08:55)
[2021-03-23] MEDS: FERROUS SULFATE 325 MG TAB PO SCH (08:55)
[2021-03-23] MEDS: CLOPIDOGREL BISULFATE 75 MG TAB PO SCH (08:55)
[2021-03-23] MEDS: allopurinoL 300 MG TAB PO SCH (08:56)
[2021-03-23] MEDS: FINASTERIDE 5 MG TAB PO SCH (08:56)
[2021-03-23] MEDS: predniSONE 5 MG TAB PO SCH (08:56)
[2021-03-23] MEDS: FUROSEMIDE 20 MG TAB PO SCH (08:56)
[2021-03-23] MEDS: CHOLECALCIFEROL 1,000 UNITS 25 MCG TAB PO SCH (08:56)
[2021-03-23] MEDS: CEROVITE ADV FORMULA TAB PO SCH (08:56)
--- NOTE | 2021-03-23 13:34 | Hospitalist Progress Note ---
Date of Service March 23, 2021 Assessment & Plan (1) Hypoxia: (2) Multifocal pneumonia: Plan: This is an 89yo M presenting from [facility] with PMH of COPD, CKD, chronic diastolic heart failure, HTN, h/o atrial flutter, PVD and other medical problems listed below who presented with altered mental status and increased weakness, initially requiring 3 L of oxygen. -Initially diagnosed with multifocal pneumonia with positive MRSA screen -Received IV Vanco and Zosyn which was deescalated to Augmentin and doxycycline. Patient completed 10-day course of antibiotics on 03/21 -Underwent video swallow, which showed no significant laryngeal penetration or aspiration. Has been weaned to room air and continues to saturate well (3) Encephalopathy: Plan: -Resolved -patient's mental status seems to be at baseline -Likely metabolic encephalopathy in the setting of infection -CT Head:No significant change compared to the prior study. No acute intracranial abnormality. -Continue delirium precautions (4) Acute kidney injury superimposed on CKD: Plan: -Resolved -Cr. 1.66 on admission, appears baseline is ~ 1.2-1.4 -Lasix was held and patient received IVF with improvement in creatinine, creatinine 1.1 on 03/16 (5) Elevated troponin: Plan: -Troponin elevated at 0.077-->0.081 in the setting of CKD, likely demand ischemia -low suspicion for ACS, EKG without acute changes (6) COPD (chronic obstructive pulmonary disease): Plan: -Chronic prednisone 5 mg daily at baseline -Continue home inhalers, nebs -No signs of acute exacerbation (7) Chronic diastolic heart failure: Plan: -Appears euvolemic, typically managed on Lasix 60 mg daily -Lasix 20 mg daily resumed on 03/17 -Last echo 09/09/20 showing EF of 60 to 64%, LV wall thickness moderately increased, concentric, s/p TAVR with CoreValve prosthesis valve, mild perivalvular aortic valve prosthesis regurg, mild tricuspid regurg, mild pulmonary hypertension, estimated pulmonary artery systolic pressure of 40 to 45 mmHg. (8) H/O atrial flutter: Plan: -Not anticoagulated due to fall risk, rate controlled on metoprolol (9) Hypertension: Plan: -Elevated BP during admission, amlodipine increased to 10 mg daily and metoprolol succinate to 50 mg daily -BP remains variable however overall better control. No further medication adjustments at this time -Continue as needed hydralazine (10) Left shoulder pain: Plan: - Xray: no fractures - chronic rotator cuff injury - s/p Steroid injection on 03/[address] Cast - Further Ortho recommendations: Begin PT left shoulder while here in hospital and transition to outpatient PT with follow-up scheduled with Dr Cast in 3-6 weeks as outpatient (11) Peripheral vascular disease: Plan: -Continue statin and Plavix (12) DVT prophylaxis: Plan: -SQ heparin Dispo: Plan for return to [facility] tomorrow morning. Admission and Anticipated Discharge Date Admission Date: March 10, 2021 Supervising Physician Co-Signing Physician Notes Patient is seen and examined at bedside. No new complaints. Waiting for placement. Denies any chest pain, shortness of breath, cough. Waiting for rehab placement. Agree with examination as above. Patient is being treated for multifocal pneumonia, MAXI, encephalopathy, left shoulder pain status post injection. Completed antibiotic course. Mental status back to baseline. Renal function returned to normal. And to discharge to rehab facility when arranged. I personally reviewed the record. Patient is interviewed and examined at bedside. Patient's care is coordinated with Dorothy Nieves PA-C. Please refer to the documentation above for details of patient's presentation and for discussion of other issues. Subjective Patient seen and examined in 318-1 in follow-up for multifocal pneumonia. Sitting in wheelchair ambulating around the room. Offers no new complaints. Is alert and oriented, denying any fever, chills, chest pain, shortness of breath or cough. Eating without issue. No nausea, vomiting or abdominal pain. No issues with urinating or moving bowels. Awaiting discharge. Review of Systems Review of Systems: At least ten systems reviewed and negative except as noted in the HPI. Physical Exam Physical Exam: Gen: WD/WN, NAD, sitting in wheelchair, A&Ox2 HEENT: +Hard of hearing, normocephalic, atraumatic, conjunctivae moist, sclerae anicteric, mucous membranes moist Lung: Clear to Auscultation bilaterally, no wheezes/rales/rhonchi Heart: Regular rate, regular rhythm, no murmurs, rubs, or gallops Abdomen: Soft, NT, ND +BS x 4 Extremities: no edema Skin: Warm, no rash Results & Data Results & Data ([facility]) Vital Signs (Past 12 Hours) Vital Signs Temp Pulse Resp BP Pulse Ox 03/23/21 07:48 36.9 C 80 16 147/88 H 95 Laboratory Results Short CBC 03/23/21 Range/Units 05:43 WBC 6.73 (4.8-10.8) K/uL Hgb 12.3 L (14.0-18.0) g/dL Hct 38.8 L (42-52) % Plt Count 236 (130-400) K/uL Diagnostic Findings Chest X-Ray 03/10/21 04:17 XR chest 1V portable CLINICAL HISTORY: weakness TECHNIQUE: Single frontal radiograph of the chest was obtained. Comparison: Comparison is made to MRI chest 06/21/2020 FINDINGS: No lines and tubes are seen. Cardiomegaly is noted. Right greater than left airspace opacities are seen. No evidence of pleural effusion or pneumothorax. IMPRESSION: Multifocal airspace opacities are seen, right greater than left. Cardiomegaly. ACT 112: Negative or not required by law. Electronically signed by: Nicho Elizabeth M.D. 03/10/2021 7:[address] 03/10/21 08:[address] DOSE: 668.57 mGycm HISTORY: Encephalopathy TECHNIQUE: Multiaxial CT images of the head were performed without the use of intravenous contrast. Automated exposure control was utilized for this study. A dose lowering technique was utilized adhering to the principles of ALARA. Comparison: Head CT 10/27/2020. Findings: The paranasal sinuses and mastoid air cells are clear. The calvarium and skull base are intact. There is no mass, hematoma, midline shift, acute infarct. White matter hypodensity is nonspecific but suggestive of microvascular ischemic change. The ventricles and sulci demonstrate mild age-related involutional changes. Impression: No significant change compared to the prior study. No acute intracranial abnormality. ACT 112: Negative or not required by law. Electronically signed by: Roberto Berger M.D. 03/10/2021 9:40 AM Chest X-Ray 03/14/21 08:59 XR chest 1V portable CLINICAL HISTORY: Follow-up bilateral airspace opacities. Evaluate for pneumonia. COMPARISON STUDY: 03/10/2021 TECHNIQUE: 1 view of the chest FINDINGS: Single frontal view of the chest demonstrates the heart size to now be at the upper limits of normal. Compared to previous examination, there is now a more confluent alveolar opacity at the right lung base suspicious for pneumonia. Smaller patchy alveolar opacity which are seen bilaterally have resolved. Follow-up PA and lateral radiographs would be helpful for further evaluation. The presence of a small right pleural effusion layering posterior gutter cannot be excluded. There is no evidence for vascular congestion. There is no acute osseous pathology. IMPRESSION: Compared to previous examination, there is now a more confluent alveolar opacity at the right lung base suspicious for pneumonia. Follow-up PA and lateral radiographs would be helpful for further evaluation. There is also suspicion of a small right pleural effusion. ACT 112: Negative or not required by law. Electronically signed by: Patel Roibn M.D. 03/14/2021 10:18 AM Videofluoroscopic Swallow 03/14/21 11:00 FL video swallow CLINICAL HISTORY: assess for aspiration COMPARISON STUDY: No previous studies for comparison. FLUOROSCOPY TIME: 2.7 minutes. NUMBER OF IMAGES: 10 cine fluoroscopic swallowing sequences. FINDINGS: The patient was given barium of varying consistencies and observed under fluoroscopy with concurrent tape recording. Examination is performed in conjunction with a member of the speech pathology department. The patient was given the following consistencies of barium: Thin, nectar, pure, mechanical soft and solid. There was no significant laryngeal penetration or aspiration with all substances tested. There was no pooling within the vallecula. There was no pooling within the puriform sinuses. There was evidence for esophageal dysmotility and a hiatal hernia. IMPRESSION: No significant laryngeal penetration or aspiration identified. Please see report from speech pathology regarding additional findings recommendations. ACT 112: Negative or not required by law. Electronically signed by: Patel Robin M.D. 03/14/2021 1:47 PM Shoulder X-Ray 03/15/21 00:00 XR shoulder LT min 2V routine CLINICAL HISTORY: Left shoulder pain. Fall. COMPARISON STUDY: None. FINDINGS: No fracture or dislocation within the left shoulder. The left clavicle is intact. Mild degenerative changes within the left shoulder. There is narrowing of the subacromial space consistent with chronic rotator cuff injury. The bones are osteopenic. IMPRESSION: 1. No fracture or dislocation within the left shoulder. 2. Chronic rotator cuff injury. ACT 112: Negative or not required by law. Electronically signed by: Roberto Berger M.D. 03/15/2021 4:09 PM
[2021-03-23] MEDS: TAMSULOSIN HCL 0.4 MG CAP PO SCH (20:26)
[2021-03-23] MEDS: ATORVASTATIN 40 MG TAB PO SCH (20:26)
[2021-03-24] MEDS: LEVOTHYROXINE SODIUM 75 MCG TABLET PO SCH (05:38)
[2021-03-24] MEDS: ATORVASTATIN 40 MG TAB PO SCH (07:17)
[2021-03-24] MEDS: CHOLECALCIFEROL 1,000 UNITS 25 MCG TAB PO SCH (07:17)
[2021-03-24] MEDS: CEROVITE ADV FORMULA TAB PO SCH (07:18)
[2021-03-24] MEDS: guaiFENesin 600 MG TABCR PO SCH (07:18)
[2021-03-24] MEDS: HEPARIN SOD 5,000 UNIT/0.5 ML VIAL SQ SCH (07:18)
[2021-03-24] MEDS: FERROUS SULFATE 325 MG TAB PO SCH (07:18)
[2021-03-24] MEDS: TAMSULOSIN HCL 0.4 MG CAP PO SCH (07:18)
[2021-03-24] MEDS: allopurinoL 300 MG TAB PO SCH (07:19)
[2021-03-24] MEDS: GABAPENTIN 300 MG CAP PO SCH (07:19)
[2021-03-24] MEDS: MIRABEGRON ER 25 MG TAB PO SCH (07:19)
[2021-03-24] MEDS: predniSONE 5 MG TAB PO SCH (07:19)
[2021-03-24] MEDS: CLOPIDOGREL BISULFATE 75 MG TAB PO SCH (07:19)
[2021-03-24] MEDS: METOPROLOL SUCC 50MG EXT REL TAB PO SCH (07:19)
[2021-03-24] MEDS: amLODIPine BESYLATE 5 MG TAB PO SCH (07:19)
[2021-03-24] MEDS: MAGNESIUM OXIDE 400 MG TAB PO SCH (07:20)
[2021-03-24] MEDS: FINASTERIDE 5 MG TAB PO SCH (07:20)
[2021-03-24] MEDS: hydrALAZINE HCL 25 MG TAB PO SCH (07:20)
[2021-03-24] MEDS: FUROSEMIDE 20 MG TAB PO SCH (07:21)
[2021-03-24] MEDS: FLUTICASONE FUROATE 100MCG 14 PUFFS/INHALER INH SCH (07:21)
[2021-03-24] MEDS: MENTHOL-ZINC OXIDE 360 APPLN/120 GM TUBE EXT SCH (08:23)
[2021-03-24] MEDS: INSULIN ASPART 100 UNITS/ML 3 ML PEN SC SCH (08:34)
--- NOTE | 2021-03-24 08:45 | Discharge Summary ---
Date of Service March 24, 2021 Admission HPI Per Admitting Provider This is an 89-year-old male with PMHx of COPD, PAD, aortic stenosis, chronic diastolic CHF, HTN, CKD stage III, a flutter, rheumatoid arthritis on long-term steroids who presents today from [facility] because of altered mental status and increased weakness. The patient notes that he has had increased coughing sometimes with expectorant (green, yellow, no blood) and does not feel himself, denies any specific fever chills or sweats. He reports eating and drinking without difficulty, denies choking on food or liquids going down his windpipe. His mouth is dry all the time and uses a spray to help moisturize it. He reports being able to walk/transfer somewhat but then reports that he is in a wheelchair most of the time. Denies any recent falls. His emergency contact is Amena Garnett, and says that we should call her with any updates. Per review of records, he was started on azithromycin on 03/08 x 4 days and Mucinex on 03/07 x 7 days. He does not specifically recall this and is unable to answer specific medication questions. Admission Exam Per Admitting Provider General: awake, alert, no apparent distress Head: Normocephalic, atraumatic ENT: PERRL, EOMI, no pharyngeal exudate, endentulous, mucous membranes dry Chest: diminished breath sounds throughout and nearly absent at bases, wet cough, no wheeze or rhonchi Cardiac: Sinus tach, faint systolic murmur, no JVD, normal peripheral pulses, good capillary refill Abdominal: NABS x 4 quadrants, obese, soft, nondistended, nontender to palpation, no rebound or guarding Extremities: Chronic venous stasis changes, no peripheral edema or erythema, calfs nontender to palpation Psych: Normal mood and affect Neuro: AA, oriented to self and place, not time, strength intact bilaterally and rated 4/5, no motor deficits, speech is clear, no peripheral sensory deficits Principal Diagnosis metabolic encephalopathy 2/2 multifocal pneumonia Discharge Exam Gen: WD/WN, NAD, sitting in wheelchair, A&Ox2 HEENT: +Hard of hearing, normocephalic, atraumatic, conjunctivae moist, sclerae anicteric, mucous membranes moist Lung: Clear to Auscultation bilaterally, no wheezes/rales/rhonchi Heart: Regular rate, regular rhythm, no murmurs, rubs, or gallops Abdomen: Soft, NT, ND +BS x 4 Extremities: no edema Skin: Warm, no rash Discharge Data Allergies Allergy/AdvReac Type Severity Reaction Status Date / Time iodine Allergy Unknown Unknown Verified 03/10/21 07:41 [place] And Derivatives AdvReac Intermediate Abdominal Verified 03/10/21 07:41 pain (citrus juice) tomato AdvReac Intermediate Headache Verified 03/10/21 07:41 (tomato juice) colchicine AdvReac Mild GI upset Verified 03/10/21 07:41 morphine AdvReac Unknown "out of Verified 03/10/21 07:41 it" x days Consultations 03/10/21 06:24 ED Decision to Admit Stat 03/16/21 11:01 Consult Orthopedic Surgery Routine Ordered Studies 03/10/21 08:27 CT head/brain wo con Stat 03/14/21 11:00 FL video swallow Routine Hospital Course (1) Hypoxia: (2) Multifocal pneumonia: (3) Encephalopathy: (4) Acute kidney injury superimposed on CKD: (5) Elevated troponin: (6) COPD (chronic obstructive pulmonary disease): (7) Chronic diastolic heart failure: (8) H/O atrial flutter: (9) Hypertension: (10) Left shoulder pain: (11) Peripheral vascular disease: This is an 89yo M presenting from [facility] with PMH of COPD, CKD, chronic diastolic heart failure, HTN, h/o atrial flutter, PVD and other medical problems listed below who presented with altered mental status and increased weakness, initially requiring 3 L of oxygen. Was initially diagnosed with multifocal pneumonia with positive MRSA screen. Received IV Vanco and Zosyn which was deescalated to Augmentin and doxycycline. Patient completed 10-day course of antibiotics on 03/21. Underwent video swallow, which showed no significant laryngeal penetration or aspiration. Has been weaned to room air and continues to saturate well. Initially presented with acute metabolic encephalopathy in setting of infection that has resolved and patient is back to mentating at baseline. Kidney function initially elevated but returned to baseline with reduction of lasix dose to 20mg daily. Blood pressure elevated during admission, so amlodipine dose increased from 5 to 10mg daily and Toprol dose increased from 25 to 50 mg daily. Continuing new medication dosing on return to [facility]. Was also evaluated by ortho surgery for left shoulder pain during admission due to chronic rotator cuff injury. No acute findings on shoulder XR. Received a steroid injection on 03/[address] Cast. Ortho recommended continuing PT as an outpatient. Due for follow up in ortho clinic in 3-6 weeks. Patient asymptomatic and hemodynamically stable at time of discharge back to [facility]. Total Time Total Time Spent Total Time Spent (In Minutes): 45 Discharge Plan Discharge Items Patient Disposition: Personal [facility] Reason For Visit: METABOLIC ENCEPHALOPATHY 2/2 PNEUMONIA Discharge Diagnosis: metabolic encephalopathy 2/2 multifocal pneumonia Activity: Resume your previous activity Non-emergency contact: Primary Care Provider Call non-emergency contact if: you have any medication questions, your symptoms worsen and your pain is concerning for you Follow-up/Referrals: Patrick Albarran MD [Outside Practitioners] - (Date & Time 03/28/2021 11:20 AM Provider Patrick Albarran MD [facility] ) [facility], [facility] [Primary Care Provider] - Diet: Heart Healthy Addtl Attending Provider Instructions: You were admitted for multifocal pneumonia and low oxygen levels (hypoxia). You have completed 10 day treatment course of antibiotics. Underwent video swallow, which showed no significant laryngeal penetration or aspiration. You are no longer requiring oxygen. You also presented with left shoulder pain and received a steroid injection on 03/[address] Cast - XR does not show fracture or dislocation but a chronic rotator cuff injury. Please continue physical therapy at [facility] per ortho's instruction. MEDICATION CHANGES: Amlodipine increased to 10mg daily for elevated blood pressure Metoprolol succinate increased to 50mg daily for elevated blood pressure Lasix changed to 20mg daily RECOMMENDATIONS FOR FOLLOW-UP: Follow up with Dr. Albarran on 03/28/21 at 11:20am. Follow up scheduled with Dr. Cast in 3-6 weeks as outpatient at [facility] (please call [phone] if questions) OTHER INSTRUCTIONS: Seek medical attention if you have: * temperature above 101 * chest pain or trouble breathing * abdominal pain, nausea, vomiting * diarrhea, dark stools or bloody stools * any unanswered questions or concerns Call [phone] if symptoms are severe. Please take good care of yourself. Call if you have any questions or problems. You can reach a Melony hospitalist on duty at [facility] 24 hours a day by calling [phone]. MIGUEL A Santiago Hospitalist Pending Studies at Discharge: No Stand-Alone Forms: My [facility] [employer], Smoking Cessation Skilled Items Patient informed of condition?: Yes DNR: Yes Discharge Level of Care: Other Communicable Disease: No Discharge Prognosis: Stable Lines: None Urinary Catheter: No Medications and DC Order Prescriptions: New metoprolol succinate 50 mg Tablet Extended Release 24 Hr 50 mg PO QAM Qty: 30 RF: 0 amlodipine [Norvasc] 5 mg Tablet 10 mg PO QAM Qty: 30 RF: 0 Continued tramadol 50 mg tablet 50 mg PO Q6H PRN (Reason: pain) Qty: 12 RF: 0 atorvastatin 40 mg tablet 40 mg PO HS Qty: 90 RF: 0 clopidogrel 75 mg tablet 75 mg PO QAM Qty: 30 RF: 0 allopurinol 300 mg tablet 300 mg PO QAM Qty: 90 RF: 0 ondansetron HCl [Zofran] 4 mg Tablet 4 mg PO Q8H PRN (Reason: Nausea And Vomiting) RF: 0 prednisone 5 mg Tablet 5 mg PO QAM RF: 0 Men's Daily Multivit-Mineral 0.4-600 mg-mcg Tablet 1 tab PO QAM RF: 0 Combivent Respimat 20-100 mcg/actuation Mist 1 puff INHALATION BID PRN (Reason: Shortness Of Breath) RF: 0 cholecalciferol (vitamin D3) [Vitamin D3] 2,000 unit Tablet 2,000 unit PO QAM RF: 0 magnesium oxide 400 mg magnesium Tablet 400 mg PO BID RF: 0 ferrous sulfate 325 mg (65 mg iron) Tablet 325 mg PO QAM RF: 0 finasteride 5 mg tablet 5 mg PO QAM RF: 0 melatonin 1 mg Tablet 4 mg PO HS RF: 0 Biotene Dry Mouth Oral Rinse Mouthwash 5 ml PO DAILY RF: 0 docusate sodium 100 mg Tablet 200 mg PO BID PRN (Reason: Constipation) RF: 0 Myrbetriq 50 mg tablet extended release 24 hr 50 mg PO QAM RF: 0 furosemide 20 mg tablet 20 mg PO DAILY RF: 0 polyethylene glycol 3350 [Miralax] 17 gram/dose Powder 17 g PO DAILY PRN (Reason: Constipation) RF: 0 ipratropium-albuterol 0.5 mg-3 mg(2.5 mg base)/3 mL Solution For Nebulization 3 ml INHALATION Q4H PRN (Reason: Cough) RF: 0 acetaminophen 160 mg/5 mL Liquid 640 mg PO QID PRN (Reason: Pain) RF: 0 loperamide 2 mg Capsule 2 mg PO Q4H PRN (Reason: Diarrhea) RF: 0 Flovent Diskus 250 mcg/actuation blister with device 1 inh INHALATION BID RF: 0 Aloe Tonasket Protectant Ointment 43 % Ointment 1 applic TOPICAL DAILY PRN (Reason: Other) RF: 0 menthol-zinc oxide [Calmoseptine] 0.44-20.6 % Ointment 1 applic TOPICAL TID RF: 0 amoxicillin 500 mg capsule 2,000 mg PO ONCE RF: 0 azithromycin 250 mg tablet 250 mg PO DAILY RF: 0 gabapentin 300 mg capsule 300 mg PO TID RF: 0 tamsulosin 0.4 mg capsule 0.4 mg PO HS RF: 0 levothyroxine 75 mcg Tablet 75 mcg PO QAM RF: 0 Coricidin HBP Cold and Flu 2-325 mg Tablet 1 tab PO UD PRN (Reason: Congestion) RF: 0 lidocaine 1.8 % Adhesive Patch,Medicated 1 patch TOPICAL DAILY PRN (Reason: Pain) RF: 0 mirtazapine [Remeron] 15 mg Tablet 7.5 mg PO HS RF: 0 guaifenesin [Mucinex] 600 mg Tablet Extended Release 12hr 600 mg PO BID RF: 0 Discontinued furosemide 40 mg tablet 40 mg PO QAM RF: 0 amlodipine 2.5 mg tablet 2.5 mg PO QAM RF: 0 metoprolol succinate 25 mg Tablet Extended Release 24 Hr 25 mg PO DAILY RF: 0 Discharge Orders: Discharge Order (Routine); Ordered 03/24/21 Ordered By: Dorothy Nieves Admission Data Admit Date/Time: 03/10/21 07:32 Attending Provider: Louie Ramos Admit Provider: Jie Dick Primary Care Provider: Jeff Duran,[employer] Other Providers: [facility] ; Ame Trent [facility] [place] ; Louie Ramos ; Jose Raul Earl ; Quentin Elias ; Miguel Cast ; Arcenio Nice ; Deisi Andrews ; Deep Gould ; Franca Moore ; Sam Gordon ; Jose Waggoner ; Patrick Alamo ; Gilberto Lehman. ; Jose Diane ; Kwabena Earl ; Shon Armendariz ; Antonio Kelsey ; Krish Sultana ; Franca Garcia ; Jeffery Staton ; Westley Rogers ; Giovana Morales ; Micah Self ; Diane Salas ; Bang Mcarthur Other Interventions: Discharge Summary Assessment (RN) Last Done: 03/24/21 11:05 Supervising Physician Co-Signing Physician Notes Patient is seen and examined at bedside on day of discharge. No new complaints. Denies any chest pain, shortness of breath, cough.Agree with examination as above. Patient is treated for multifocal pneumonia, MAXI, encephalopathy, left shoulder pain status post injection. Completed antibiotic course. Mental status back to baseline. Renal function returned to normal. I personally reviewed the record. Patient is interviewed and examined at bedside. Patient's care is coordinated with Dorothy Nieves PA-C. Please refer to the documentation above for details of patient's presentation and for discussion of other issues.
== END 2021-03-24 11:14 | disposition home or self-care (01) | DRG 193 ==
LOC: ED 03:39 → EDINP 07:32 → SUATTDRO 07:32 → 2N 10:12 → 3E 03-20 01:33

== ENCOUNTER 2021-04-13 06:08 | Inpatient (IN) ==
[2021-04-13 06:38] LABS: Basophils # (auto) 0.02 K/uL (0-0.2); Basophils % (auto) 0.2 %; Eosinophils # (auto) 0.17 K/uL (0-0.5); Eosinophils % (auto) 1.9 %; Hematocrit (blood only) 40.5 % (42-52); Hemoglobin 12.5 g/dL (14.0-18.0); Immature Granulocytes # (auto) 0.04 K/uL (0.00-0.02); Immature Granulocytes % (auto) 0.4 %; Lymphocytes # (auto) 1.29 K/uL (1.2-3.4); Lymphocytes % (auto) 14.3 %; Mean Corpuscular Hemoglobin 28.3 pg (25-34); Mean Corpuscular Hgb Conc 30.9 g/dL (32-36); Mean Corpuscular Volume 91.6 fL (80-100); Mean Platelet Volume 9.8 fL (7.4-10.4); Monocytes # (auto) 0.56 K/uL (0.11-0.59); Monocytes % (auto) 6.2 %; Neutrophils # (auto) 6.91 K/uL (1.4-6.5); Platelet Count 158 K/uL (130-400); RDW Coefficient of Variation 15.5 % (11.5-14.5); RDW Standard Deviation 51.9 fL (36.4-46.3); Red Blood Count 4.42 M/uL (4.7-6.1); White Blood Count 8.99 K/uL (4.8-10.8)
--- NOTE | 2021-04-13 07:13 | XRay Report ---
XR chest 1V portable 04/13/2021 at 6:11 AM CLINICAL HISTORY: hypoxia. Follow-up possible right lower lobe pneumonia COMPARISON STUDY: 03/14/2021 at 9:38 AM TECHNIQUE: 1 view of the chest FINDINGS: Single frontal view of the chest demonstrates the heart to again be enlarged. Compared to the previou s examination, right lower lobe alveolar opacity has resolved. However, there are now nodular densiti es identified within both lungs which are more conspicuous on the current study. The findings suggest the presence of calcified granulomata versus metastatic disease. Follow-up CT of the chest is recomm ended. No confluent alveolar opacities or air bronchograms are seen. There is no evidence for pleural effusion. There is no evidence for vascular congestion. There is no acute osseous pathology. IMPRESSION: 1. Cardiomegaly with no evidence for confluent alveolar opacity or vascular congestion. 2. Evidence for nodular densities within the lungs bilaterally with follow-up recommended as describe d. ACT 112: Negative or not required by law. Electronically signed by: Patel Robin M.D. 04/13/2021 7:12 AM
[2021-04-13 07:18] LABS: BUN Creatinine Ratio 16.9 (10-20); Calcium 8.9 mg/dl (8.5-10.1); Creatinine Clr Calc Pharmacy 47.2 ml/min; Est GFR (African American) 61.8 ml/min; Est GFR (Non-African American) 53.3 ml/min; Potassium 3.9 mmol/L (3.5-5.1)
[2021-04-13 07:19] LABS: Influenza A virus by PCR Negative (Neg); Influenza B virus by PCR Negative (Neg); RSV by PCR Negative (Neg); SARS CoV2 RNA(COVID-19) InHosp NEGATIVE (Negative)
[2021-04-13 07:25] LABS: Troponin I 0.047 ng/ml (0-0.045)
--- NOTE | 2021-04-13 07:41 | Emergency Department Note ---
History of Present Illness General Chief complaint: Respiratory Distress Stated complaint: RESP DISTRESS Time Seen by Provider: 04/13/21 06:55 History of Present Illness Maximum Pain Intensity: 1 89-year-old male presents to the ED with a chief complaint of low oxygen saturations. The patient resides at [facility]. He was found to have oxygen saturations of 79% this morning. They gave him a DuoNeb treatment and his oxygen saturation only improved to 83%. For this reason he was sent to the ED for further evaluation. Per the daughter, the patient seemed to be okay yesterday. He was not having any cough or any suggestion of an upper respiratory infection. He did have some increased pedal edema but that seems to improve slightly overnight. The patient does occasionally use oxygen at nighttime. The patient was unable to provide much history as he fell asleep during the exam. While talking, he fell asleep. The daughter states that he has been increasingly weak and fatigued recently. He was recently discharged from the hospital for pneumonia. Home Medications Medication Instructions Recorded Confirmed Type allopurinol 300 mg tablet 300 mg PO QAM #90 tab 01/05/19 03/10/21 History atorvastatin 40 mg tablet 40 mg PO HS #90 tab 01/05/19 03/10/21 History clopidogrel 75 mg tablet 75 mg PO QAM #30 tab 01/05/19 03/10/21 History cholecalciferol (vitamin D3) 50 2,000 unit PO QAM 03/24/19 03/10/21 History mcg (2,000 unit) tablet (Vitamin D3) ipratropium 20 mcg-albuterol 100 1 puff INHALATION BID PRN 03/24/19 03/10/21 History mcg/actuation mist for inhalation (Combivent Respimat) magnesium oxide 400 mg PO BID 03/24/19 03/10/21 History multivit with minerals-folic 1 tab PO QAM 03/24/19 03/10/21 History acid-lycopene 0.4 mg-600 mcg tablet (Men's Daily Multivitamin-Mineral) ondansetron HCl 4 mg tablet 4 mg PO Q8H PRN 03/24/19 03/10/21 History (Zofran) prednisone 5 mg tablet 5 mg PO QAM 03/24/19 03/10/21 History ferrous sulfate 325 mg (65 mg 325 mg PO QAM 09/17/19 03/10/21 History iron) tablet docusate sodium 100 mg tablet 200 mg PO BID PRN 06/06/20 03/10/21 History finasteride 5 mg tablet 5 mg PO QAM 06/06/20 03/10/21 History melatonin 1 mg tablet 4 mg PO HS 06/06/20 03/10/21 History saliva substitute combo no.9 5 ml PO DAILY 06/06/20 03/10/21 History (Biotene Dry Mouth Oral Rinse) mirabegron 50 mg tablet,extended 50 mg PO QAM 06/22/20 03/10/21 History release 24 hr (Myrbetriq) furosemide 20 mg tablet 20 mg PO DAILY 10/27/20 03/10/21 History polyethylene glycol 3350 17 17 g PO DAILY PRN 10/27/20 03/10/21 History gram/dose oral powder (Miralax) chlorpheniramine-acetaminophen 2 1 tab PO UD PRN 01/04/21 03/10/21 History mg-325 mg tablet (Coricidin HBP Cold and Flu) levothyroxine 75 mcg tablet 75 mcg PO QAM 01/04/21 03/10/21 History lidocaine 1.8 % topical patch 1 patch TOPICAL DAILY PRN 01/04/21 03/10/21 History guaifenesin 600 mg tablet, 600 mg PO BID 01/06/21 03/10/21 History extended release 12 hr (Mucinex) mirtazapine 15 mg tablet (Remeron) 7.5 mg PO HS 01/06/21 03/10/21 History tramadol 50 mg tablet 50 mg PO Q6H PRN #12 tab 01/06/21 03/10/21 Rx acetaminophen 160 mg/5 mL oral 640 mg PO QID PRN 03/10/21 03/10/21 History liquid amoxicillin 500 mg capsule 2,000 mg PO ONCE 03/10/21 03/10/21 History azithromycin 250 mg tablet 250 mg PO DAILY 03/10/21 03/10/21 History fluticasone propionate 250 1 inh INHALATION BID 03/10/21 03/10/21 History mcg/actuation blister powder for inhalation (Flovent Diskus) gabapentin 300 mg capsule 300 mg PO TID 03/10/21 03/10/21 History ipratropium 0.5 mg-albuterol 3 mg 3 ml INHALATION Q4H PRN 03/10/21 03/10/21 History (2.5 mg base)/3 mL nebulization soln loperamide 2 mg capsule 2 mg PO Q4H PRN 03/10/21 03/10/21 History menthol 0.44 %-zinc oxide 20.6 % 1 applic TOPICAL TID 03/10/21 03/10/21 History topical ointment (Calmoseptine) tamsulosin 0.4 mg capsule 0.4 mg PO HS 03/10/21 03/10/21 History white petrolatum 43 % topical 1 applic TOPICAL DAILY PRN 03/10/21 03/10/21 History ointment (Aloe Saragosa Protectant Ointment) amlodipine 5 mg tablet (Norvasc) 10 mg PO QAM #30 tab 03/24/21 Rx metoprolol succinate 50 mg 50 mg PO QAM #30 tab 03/24/21 Rx tablet,extended release 24 hr Allergies Allergy/AdvReac Type Severity Reaction Status Date / Time iodine Allergy Unknown Unknown Verified 03/10/21 07:41 [place] And Derivatives AdvReac Intermediate Abdominal Verified 03/10/21 07:41 pain (citrus juice) tomato AdvReac Intermediate Headache Verified 03/10/21 07:41 (tomato juice) colchicine AdvReac Mild GI upset Verified 03/10/21 07:41 morphine AdvReac Unknown "out of Verified 03/10/21 07:41 it" x days Past Med/Surg History Medical History (Updated 04/13/21 @ 08:57 by Michael Astorga DO) Anemia Aortic stenosis Severe aortic stenosis (FCO 0.6-0.63cm2, MG 38.2mmhg) per 03/2019 echo > TAVR (07/2020), echo done 08/2020 BPH (benign prostatic hypertrophy) BPH with obstruction/lower urinary tract symptoms Chronic diastolic heart failure Chronic venous insufficiency CKD (chronic kidney disease), stage III COPD (chronic obstructive pulmonary disease) Dyslipidemia Elevated PSA Esophageal dysmotility GERD (gastroesophageal reflux disease) Gout H/O atrial flutter Post-op (2013)- converted to SR with IV diltiazem Hiatal hernia History of duodenal ulcer History of kidney stones Hypertension Neuropathy Nocturnal hypoxemia 2L O2 HS Osteoarthritis Osteoporosis Peripheral vascular disease s/p angioplasty of right posterior tibial artery Psoriatic arthritis Renal lesion Umbilical hernia Urinary incontinence Urinary retention Surgical History Amputation of toe R/L second toe Family history of reaction to anesthesia Daughter- N/V History of angioplasty of peripheral vessel History of cataract surgery R/L History of colonoscopy History of esophagogastroduodenoscopy (EGD) History of lithotripsy History of lumbar fusion History of tooth extraction 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 Status post endovenous radiofrequency ablation of saphenous vein Family History Mother Colorectal cancer Sister Breast cancer Lung cancer Father Parkinson disease Brother Nephrolithiasis Social History Smoking Status: Former smoker Tobacco Type: Cigarettes Second Hand Exposure: No; Hx Alcohol Use: No Hx Substance Use: No Preferred Language: Kiswahili Communication Ability: Effective Visual Impairment: No Limitations Hearing Ability: Normal Aerodynamic Consultant Required: No Beliefs That Will Affect Care: None marital status: / Current Living Situation: Personal Care Facility Current Living Situation Comment: [facility] current occupational status: retired other: walks with walker Feels Safe at Home: Yes Assistive Devices: Wheelchair Review of Systems A total of 10 systems reviewed and were otherwise negative Physical Exam Vital Signs Vital Signs - 24 hr 04/13/21 06:13 04/13/21 06:33 04/13/21 06:37 Temperature 37.0 C Temperature Source Oral Pulse Rate 91 H Pulse Rhythm Regular Respiratory Rate 19 18 Respiratory Effort / Characteristics Non-Labored Spontaneous Respiratory Depth Normal Normal Blood Pressure 141/90 H Blood Pressure Mean 107 Blood Pressure Position Lying Pulse Oximetry 98 95 Oxygen Delivery Method Nasal Cannula Nasal Cannula Nasal Cannula Oxygen Flow Rate 4 4 2 Sepsis Recent Fever Within 48 Hours Yes Sepsis New/Unexplained Change in Mental Status No Sepsis Action Taken by Nursing No Action Required CONSTITUTIONAL/VITAL SIGNS: Reviewed / noted above. GENERAL: Non-toxic in appearance. INTEGUMENTARY: Warm, dry, and [place]. HEAD: Normocephalic. EYES: without scleral icterus or trauma. ENT/OROPHARYNX: clear and moist. LYMPHADENOPATHY/NECK: Is supple without lymphadenopathy or meningismus. RESPIRATORY: Diminished breath sounds bilaterally with poor inspiratory effort n o increased work of breathing. CARDIOVASCULAR: Regular rate and rhythm. GI/ABDOMEN: Soft and nontender. No organomegaly or pulsatile mass. EXTREMITIES: Warm and well perfused. Pedal edema bilaterally. NEUROLOGICAL: Intact without focal deficits. Generalized weakness. PSYCHIATRIC: normal affect. MUSCULOSKELETAL: Normally developed with average to poor muscle tone. TRIAGE NURSING DOCUMENTATION REVIEWED. Medical Decision Making Differential Diagnosis Differential includes acute coronary syndrome, myocardial infarction, CVA, TIA, anemia, infection, pneumonia, UTI, pyelonephritis, poor nutrition, dehydration, electrolyte disturbance,hypoglycemia. Medical Records Attestation: I reviewed the patient's medical records. Home Medications Current Medication List: was personally reviewed by me Laboratory Data Attestation: I reviewed the patient's lab results. Result diagrams: 04/13/21 05:44 04/13/21 05:44 Lab Results 04/13/21 04/13/21 04/13/21 Range/Units 05:44 05:44 06:30 WBC 8.99 (4.8-10.8) K/uL RBC 4.42 L (4.7-6.1) M/uL Hgb 12.5 L (14.0-18.0) g/dL Hct 40.5 L (42-52) % MCV 91.6 (80-100) fL MCH 28.3 (25-34) pg MCHC 30.9 L (32-36) g/dL RDW Std Deviation 51.9 H (36.4-46.3) fL RDW Coeff of [place] 15.5 H (11.5-14.5) % Plt Count 158 (130-400) K/uL MPV 9.8 (7.4-10.4) fL Immature Gran % (Auto) 0.4 % Neut % (Auto) 77.0 % Lymph % (Auto) 14.3 % [place] % (Auto) 6.2 % Eos % (Auto) 1.9 % Baso % (Auto) 0.2 % Neut # (Auto) 6.91 H (1.4-6.5) K/uL Lymph # (Auto) 1.29 (1.2-3.4) K/uL [place] # (Auto) 0.56 (0.11-0.59) K/uL Eos # (Auto) 0.17 (0-0.5) K/uL Baso # (Auto) 0.02 (0-0.2) K/uL Immature Gran # (Auto) 0.04 H (0.00-0.02) K/uL Sodium 140 (136-145) mmol/L Potassium 3.9 (3.5-5.1) mmol/L Chloride 104 (98-107) mmol/L Carbon Dioxide 33 H (21-32) mmol/L Anion Gap 3.0 (3-11) BUN 20 H (7-18) mg/dl Creatinine 1.20 (0.6-1.4) mg/dl Est Cr Clr Drug Dosing 47.2 ml/min Est GFR ( Amer) 61.8 ml/min Est GFR (Non-Af Amer) 53.3 ml/min BUN/Creatinine Ratio 16.9 (10-20) Glucose 117 H (70-99) mg/dl Calcium 8.9 (8.5-10.1) mg/dl Troponin I 0.047 H* (0-0.045) ng/ml SARS-CoV-2 (PCR) NEGATIVE (Negative) Influenza Type A (PCR) Negative (Neg) Influenza Type B (PCR) Negative (Neg) RSV (RT-PCR) Negative (Neg) Imaging Data Radiologist's Impression: Chest X-Ray 04/13/21 06:16 XR chest 1V portable 04/13/2021 at 6:11 AM CLINICAL HISTORY: hypoxia. Follow-up possible right lower lobe pneumonia COMPARISON STUDY: 03/14/2021 at 9:38 AM TECHNIQUE: 1 view of the chest FINDINGS: Single frontal view of the chest demonstrates the heart to again be enlarged. Compared to the previous examination, right lower lobe alveolar opacity has resolved. However, there are now nodular densities identified within both lungs which are more conspicuous on the current study. The findings suggest the presence of calcified granulomata versus metastatic disease. Follow-up CT of the chest is recommended. No confluent alveolar opacities or air bronchograms are seen. There is no evidence for pleural effusion. There is no evidence for vascular congestion. There is no acute osseous pathology. IMPRESSION: 1. Cardiomegaly with no evidence for confluent alveolar opacity or vascular congestion. 2. Evidence for nodular densities within the lungs bilaterally with follow-up recommended as described. ACT 112: Negative or not required by law. Electronically signed by: Patel Robin M.D. 04/13/2021 7:[address] 04/13/21 07:15 CT chest diagnostic wo con CT DOSE: 868.48 mGy.cm CLINICAL HISTORY: 89 years-old Male with sob. Acute shortness of breath TECHNIQUE: Multiaxial CT images of the chest were performed without contrast. A dose lowering technique was utilized adhering to the principles of ALARA. COMPARISON: Chest radiograph of same day, CT chest 06/06/2020 FINDINGS: Heterogeneity of the thyroid. Borderline enlarged mediastinal lymph nodes are redemonstrated measuring up to 10 mm. Calcified left hilar lymph nodes suggest prior granulomatous disease. Cardiomegaly with trace pericardial effusion. Exten sive coronary artery calcifications. Calcifications of the mitral annulus are also noted. Aortic valvular endograft. Atherosclerosis of the aorta with mild fusiform dilation of the ascending segment measuring 4.0 x 4.0 cm, unchanged. Trace pleural effusions. Chronic pleural thickening with calcified pleural plaques. Emphysema. No pneumothorax. Bibasilar consolidation with air bronchograms, mildly improved within the right lung base and slightly progressed within the left lung base. Bibasilar bronchial wall thickening. Mild new tree-in-bud nodules of the lung bases. There is a subpleural reticulation are suggestive of fibrosis. Mild intralobular septal thickening throughout the right lung. Mild tracheobronchial secretions. Large hiatal hernia contains the majority of the stomach with portion of the transverse colon. Colonic diverticulosis. Unremarkable soft tissues. Degenerative changes of the shoulders and spine. IMPRESSION: 1. Cardiomegaly with unchanged mild dilation of the ascending thoracic aorta, 4.0 x 4.0 cm. 2. 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 3. Mild tree-in-bud nodular consolidative opacities of the lung bases are new from prior suggestive of an infectious or inflammatory pneumonitis. 4. Borderline enlarged mediastinal adenopathy is stable. 5. Large hiatal hernia. ACT 112: Negative or not required by law. Electronically signed by: Bang Carlos M.D. 04/13/2021 8:29 AM ECG Data Attestation: I personally reviewed and interpreted this ECG as follows: Additional Comments: Twelve-lead EKG: Per my interpretation there is a sinus rhythm at a rate of 90 with first-degree AV block. No ST elevation. No PVCs. Normal QTC MDM Narrative 89-year-old male presents to the ED with a chief complaint of shortness of breath and hypoxia 79% on room air at the nursing facility where he resides. He was on oxygen when I evaluated him. He was on 2 L saturating about 95%. Off of oxygen, he drops to 88%. His CBC was unremarkable. EKG shows a sinus rhythm at a rate of 90 with a first-degree AV block. Complete metabolic panel was unremarkable. Troponin was mildly elevated but this appears to be chronic. Covid, flu and RSV are negative. Chest x-ray was read as no acute infiltrates. The patient appears to be generally weak on my exam. His vital signs otherwise stable. CT scan of the chest reveals bilateral lower lobe infiltrates that are new from the previous imaging study. Blood cultures have been performed. The patient was given IV cefepime.He was also given a nebulizer treatment. Impression & Plan Pneumonia of both lower lobes, Hypoxia Discharge Plan Visit Data Chief Complaint: Respiratory Distress Stated Complaint: RESP DISTRESS ED Provider: Michael Astorga Discharge Problem: Pneumonia of both lower lobes, Hypoxia Patient Disposition: Being Evaluated by Hospitalist Forms Stand Alone Forms: [facility] Prescriptions Prescriptions: No Action tramadol 50 mg tablet 50 mg PO Q6H PRN (Reason: pain) Qty: 12 RF: 0 atorvastatin 40 mg tablet 40 mg PO HS Qty: 90 RF: 0 clopidogrel 75 mg tablet 75 mg PO QAM Qty: 30 RF: 0 allopurinol 300 mg tablet 300 mg PO QAM Qty: 90 RF: 0 ondansetron HCl [Zofran] 4 mg Tablet 4 mg PO Q8H PRN (Reason: Nausea And Vomiting) RF: 0 prednisone 5 mg Tablet 5 mg PO QAM RF: 0 Men's Daily Multivit-Mineral 0.4-600 mg-mcg Tablet 1 tab PO QAM RF: 0 Combivent Respimat 20-100 mcg/actuation Mist 1 puff INHALATION BID PRN (Reason: Shortness Of Breath) RF: 0 cholecalciferol (vitamin D3) [Vitamin D3] 2,000 unit Tablet 2,000 unit PO QAM RF: 0 magnesium oxide 400 mg magnesium Tablet 400 mg PO BID RF: 0 ferrous sulfate 325 mg (65 mg iron) Tablet 325 mg PO QAM RF: 0 finasteride 5 mg tablet 5 mg PO QAM RF: 0 melatonin 1 mg Tablet 4 mg PO HS RF: 0 Biotene Dry Mouth Oral Rinse Mouthwash 5 ml PO DAILY RF: 0 docusate sodium 100 mg Tablet 200 mg PO BID PRN (Reason: Constipation) RF: 0 Myrbetriq 50 mg tablet extended release 24 hr 50 mg PO QAM RF: 0 furosemide 20 mg tablet 20 mg PO DAILY RF: 0 polyethylene glycol 3350 [Miralax] 17 gram/dose Powder 17 g PO DAILY PRN (Reason: Constipation) RF: 0 ipratropium-albuterol 0.5 mg-3 mg(2.5 mg base)/3 mL Solution For Nebulization 3 ml INHALATION Q4H PRN (Reason: Cough) RF: 0 acetaminophen 160 mg/5 mL Liquid 640 mg PO QID PRN (Reason: Pain) RF: 0 loperamide 2 mg Capsule 2 mg PO Q4H PRN (Reason: Diarrhea) RF: 0 Flovent Diskus 250 mcg/actuation blister with device 1 inh INHALATION BID RF: 0 Aloe [place]ag[place] Protectant Ointment 43 % Ointment 1 applic TOPICAL DAILY PRN (Reason: Other) RF: 0 menthol-zinc oxide [Calmoseptine] 0.44-20.6 % Ointment 1 applic TOPICAL TID RF: 0 amoxicillin 500 mg capsule 2,000 mg PO ONCE RF: 0 azithromycin 250 mg tablet 250 mg PO DAILY RF: 0 gabapentin 300 mg capsule 300 mg PO TID RF: 0 tamsulosin 0.4 mg capsule 0.4 mg PO HS RF: 0 metoprolol succinate 50 mg Tablet Extended Release 24 Hr 50 mg PO QAM Qty: 30 RF: 0 amlodipine [Norvasc] 5 mg Tablet 10 mg PO QAM Qty: 30 RF: 0 levothyroxine 75 mcg Tablet 75 mcg PO QAM RF: 0 Coricidin HBP Cold and Flu 2-325 mg Tablet 1 tab PO UD PRN (Reason: Congestion) RF: 0 lidocaine 1.8 % Adhesive Patch,Medicated 1 patch TOPICAL DAILY PRN (Reason: Pain) RF: 0 mirtazapine [Remeron] 15 mg Tablet 7.5 mg PO HS RF: 0 guaifenesin [Mucinex] 600 mg Tablet Extended Release 12hr 600 mg PO BID RF: 0 Referrals Referrals: [facility], [facility] [Primary Care Provider] -
--- NOTE | 2021-04-13 08:30 | CT Scan Report ---
CT chest diagnostic wo con CT DOSE: 868.48 mGy.cm CLINICAL HISTORY: 89 years-old Male with sob. Acute shortness of breath TECHNIQUE: Multiaxial CT images of the chest were performed without contrast. A dose lowering techni que was utilized adhering to the principles of ALARA. COMPARISON: Chest radiograph of same day, CT chest 06/06/2020 FINDINGS: Heterogeneity of the thyroid. Borderline enlarged mediastinal lymph nodes are redemonstrated measurin g up to 10 mm. Calcified left hilar lymph nodes suggest prior granulomatous disease. Cardiomegaly wit h trace pericardial effusion. Extensive coronary artery calcifications. Calcifications of the mitral annulus are also noted. Aortic valvular endograft. Atherosclerosis of the aorta with mild fusiform di lation of the ascending segment measuring 4.0 x 4.0 cm, unchanged. Trace pleural effusions. Chronic pleural thickening with calcified pleural plaques. Emphysema. No pne umothorax. Bibasilar consolidation with air bronchograms, mildly improved within the right lung base and slightly progressed within the left lung base. Bibasilar bronchial wall thickening. Mild new tree -in-bud nodules of the lung bases. There is a subpleural reticulation are suggestive of fibrosis. Mil d intralobular septal thickening throughout the right lung. Mild tracheobronchial secretions. Large hiatal hernia contains the majority of the stomach with portion of the transverse colon. Coloni c diverticulosis. Unremarkable soft tissues. Degenerative changes of the shoulders and spine. IMPRESSION: 1. Cardiomegaly with unchanged mild dilation of the ascending thoracic aorta, 4.0 x 4.0 cm. 2. 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 3. Mild tree-in-bud nodular consolidative opacities of the lung bases are new from prior suggestive o f an infectious or inflammatory pneumonitis. 4. Borderline enlarged mediastinal adenopathy is stable. 5. Large hiatal hernia. ACT 112: Negative or not required by law. Electronically signed by: Bang Carlos M.D. 04/13/2021 8:29 AM
[2021-04-13] MEDS ORDERED: CEFEPIME 2,000 MG/20 ML VIAL IV STA (08:54)
[2021-04-13] MEDS ORDERED: ALBUT/IPRATROP 3MG/0.5MG NEB 3 ML VIAL NEB STA (08:56)
--- NOTE | 2021-04-13 09:30 | History & Physical Report ---
Date of Service April 13, 2021 Assessment & Plan (1) Hypoxia: (2) Pneumonia of both lower lobes: (3) COPD (chronic obstructive pulmonary disease): (4) Left shoulder pain: (5) Hypertension: (6) Elevated troponin: (7) H/O atrial flutter: (8) Chronic diastolic heart failure: (9) Aortic stenosis: (10) BPH with obstruction/lower urinary tract symptoms: Plan: This is an 89yo M presenting from [facility] with PMH of COPD, CKD, chronic diastolic heart failure, HTN, h/o atrial flutter, PVD and other medical problems listed below who presented with hypoxia. Recently admitted from 03/10-03/24 for AMS in setting of multifocal pneumonia with positive MRSA screen Received IV Vanco and Zosyn which was deescalated to Augmentin and doxycycline. 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 Pro-bnp wnl. Procal pending Worsening BLE edema in setting of decreased lasix dose, ? side effect to increased amlodipine dose Continue empiric cefepime and vanc in setting of possible HAP - adding Flagyl for aspiration coverage Giving 40mg IV Lasix x 1 now. Monitor I&Os Aspiration precautions, pureed diet per [facility] Per discussion with daughter and [facility] RN, plan to pursue palliative care consult to discuss goals given repeat admissions, multiple comorbid conditions Likely to need 2 step prior to discharge Troponin elevation Trop elevated at 0.047,has been elevated on previous admissions since 2019 ECG without acute changes COPD (chronic obstructive pulmonary disease) Chronic prednisone 5 mg daily at baseline Continue home inhalers, nebs No signs of acute exacerbation Chronic diastolic heart failure Echo 09/09/20 showing EF of 60 to 64%, LV wall thickness moderately increased, concentric, s/p TAVR with CoreValve prosthesis valve, mild perivalvular aortic valve prosthesis regurg, mild tricuspid regurg, mild pulm HTN Lasix decreased from 60mg to 20mg during previous admission in setting of MAXI Increasing dose back to 40mg tomorrow - monitor volume status H/O atrial flutter Not anticoagulated due to fall risk, rate controlled on metoprolol Hypertension Amlodipine increased during previous admission, now with increased BLE edema - will go back to previous dose of 5mg daily Continue metoprolol succinate to 50 mg daily Peripheral vascular disease Continue statin and Plavix Left shoulder pain No fractures, chronic rotator cuff injury on imaging last month S/p Steroid injection on 03/[address] Cast Further Ortho recommendations: Transition to outpatient PT with follow-up scheduled with Dr Cast in 3-6 weeks as outpatient DVT Ppx: SQ heparin Code status: FULL PCP: Avis Dispo: Admitted to med/surg Patient seen in collaboration with Dr. Daniels. Please see addendum. History of Present Illness Chief Complaint: hypoxia Primary Care Provider: [facility] This is an 89yo M with a PMH of presenting from [facility] with PMH of COPD, CKD, chronic diastolic heart failure, HTN, h/o atrial flutter, PVD and other medical problems listed below who presented with hypoxia. Recently adm itted from 03/10-03/24 for AMS in setting of multifocal pneumonia with positive MRSA screen. Received IV Vanco and Zosyn which was deescalated to Augmentin and doxycycline. Patient completed 10-day course of antibiotics on 03/21. Underwent video swallow, which showed no significant laryngeal penetration or aspiration. Has been weaned to room air and continues to saturate well. Patient disoriented and unable to provide full history but per RN at facility, he has become disoriented since last evening. Is usually on 2L HS O2 and 2L PRN during the day and was requiring O2 during the day yesterday. Has increased BLE edema for past 4 days and has a productive cough that is worse. Became disoriented overnight and despite wearing baseline 2L NC and did not come above 85% on room air. Was confused about location and thought EMS was taking him to [facility]. Currently oriented to self only. Denies any pain. Feels lower extremities are swollen and tender to touch. Remainder of ROS difficult to obtain given disorientation. Per RN at [facility], at baseline patient is A&Ox2 and jokes around, answering questions appropriately. Ambulates in wheel chair and eats a pureed diet due to propensity to aspirate. Is found to have snacks in his room freqently that are not pureed, however. Did not attend PCP or cardiology follow up appointments following previous discharge on 03/24. Allergies Allergy/AdvReac Type Severity Reaction Status Date / Time iodine Allergy Unknown Unknown Verified 04/13/21 09:02 [place] [employer]atives AdvReac Intermediate Abdominal Verified 04/13/21 09:02 pain (citrus juice) tomato AdvReac Intermediate Headache Verified 04/13/21 09:02 (tomato juice) colchicine AdvReac Mild GI upset Verified 04/13/21 09:02 morphine AdvReac Unknown "out of Verified 04/13/21 09:02 it" x days Home Medications Medication Instructions Recorded Confirmed Type allopurinol 300 mg tablet 300 mg PO QAM #90 tab 01/05/19 04/13/21 History atorvastatin 40 mg tablet 40 mg PO HS #90 tab 01/05/19 04/13/21 History clopidogrel 75 mg tablet 75 mg PO QAM #30 tab 01/05/19 04/13/21 History cholecalciferol (vitamin D3) 50 2,000 unit PO QAM 03/24/19 04/13/21 History mcg (2,000 unit) tablet (Vitamin D3) ipratropium 20 mcg-albuterol 100 1 puff INHALATION BID PRN 03/24/19 04/13/21 History mcg/actuation mist for inhalation (Combivent Respimat) magnesium oxide 400 mg PO BID 03/24/19 04/13/21 History multivit with minerals-folic 1 tab PO QAM 03/24/19 04/13/21 History acid-lycopene 0.4 mg-600 mcg tablet (Men's Daily Multivitamin-Mineral) ondansetron HCl 4 mg tablet 4 mg PO Q8H PRN 03/24/19 04/13/21 History (Zofran) prednisone 5 mg tablet 5 mg PO QAM 03/24/19 04/13/21 History ferrous sulfate 325 mg (65 mg 325 mg PO QAM 09/17/19 04/13/21 History iron) tablet docusate sodium 100 mg tablet 200 mg PO Q12 PRN 06/06/20 04/13/21 History finasteride 5 mg tablet 5 mg PO QAM 06/06/20 04/13/21 History melatonin 1 mg tablet 4 mg PO HS 06/06/20 04/13/21 History saliva substitute combo no.9 5 ml PO DAILY 06/06/20 04/13/21 History (Biotene Dry Mouth Oral Rinse) mirabegron 50 mg tablet,extended 50 mg PO QAM 06/22/20 04/13/21 History release 24 hr (Myrbetriq) furosemide 20 mg tablet 20 mg PO DAILY 10/27/20 04/13/21 History polyethylene glycol 3350 17 17 g PO DAILY PRN 10/27/20 04/13/21 History gram/dose oral powder (Miralax) chlorpheniramine-acetaminophen 2 1 tab PO UD PRN 01/04/21 04/13/21 History mg-325 mg tablet (Coricidin HBP Cold and Flu) levothyroxine 75 mcg tablet 75 mcg PO QAM 01/04/21 04/13/21 History lidocaine 1.8 % topical patch 1 patch TOPICAL DAILY PRN 01/04/21 04/13/21 History mirtazapine 15 mg tablet (Remeron) 7.5 mg PO HS 01/06/21 04/13/21 History acetaminophen 160 mg/5 mL oral 640 mg PO QID PRN 03/10/21 04/13/21 History liquid amoxicillin 500 mg capsule 2,000 mg PO ONCE 03/10/21 04/13/21 History fluticasone propionate 250 1 inh INHALATION BID 03/10/21 04/13/21 History mcg/actuation blister powder for inhalation (Flovent Diskus) gabapentin 300 mg capsule 300 mg PO TID 03/10/21 04/13/21 History ipratropium 0.5 mg-albuterol 3 mg 3 ml INHALATION Q4H PRN 03/10/21 04/13/21 History (2.5 mg base)/3 mL nebulization soln loperamide 2 mg capsule 2 mg PO Q4H PRN 03/10/21 04/13/21 History menthol 0.44 %-zinc oxide 20.6 % 1 applic TOPICAL TID 03/10/21 04/13/21 History topical ointment (Calmoseptine) tamsulosin 0.4 mg capsule 0.4 mg PO HS 03/10/21 04/13/21 History white petrolatum 43 % topical 1 applic TOPICAL DAILY PRN 03/10/21 04/13/21 H istory ointment (Aloe [place] Protectant Ointment) amlodipine 5 mg tablet (Norvasc) 10 mg PO QAM #30 tab 03/24/21 04/13/21 Rx metoprolol succinate 50 mg 50 mg PO QAM #30 tab 03/24/21 04/13/21 Rx tablet,extended release 24 hr Past Med/Surg History Medical History Anemia Aortic stenosis Severe aortic stenosis (FCO 0.6-0.63cm2, MG 38.2mmhg) per 03/2019 echo > TAVR (07/2020), echo done 08/2020 BPH (benign prostatic hypertrophy) BPH with obstruction/lower urinary tract symptoms Chronic diastolic heart failure Chronic venous insufficiency CKD (chronic kidney disease), stage III COPD (chronic obstructive pulmonary disease) Dyslipidemia Elevated PSA Esophageal dysmotility GERD (gastroesophageal reflux disease) Gout H/O atrial flutter Post-op (2013)- converted to SR with IV diltiazem Hiatal hernia History of duodenal ulcer History of kidney stones Hypertension Neuropathy Nocturnal hypoxemia 2L O2 HS Osteoarthritis Osteoporosis Peripheral vascular disease s/p angioplasty of right posterior tibial artery Psoriatic arthritis Renal lesion Umbilical hernia Urinary incontinence Urinary retention Surgical History Amputation of toe R/L second toe Family history of reaction to anesthesia Daughter- N/V History of angioplasty of peripheral vessel History of cataract surgery R/L History of colonoscopy History of esophagogastroduodenoscopy (EGD) History of lithotripsy History of lumbar fusion History of tooth extraction 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 Status post endovenous radiofrequency ablation of saphenous vein Family History Mother Colorectal cancer Sister Breast cancer Lung cancer Father Parkinson disease Brother Nephrolithiasis Social History Smoking Status: Former smoker Tobacco Type: Cigarettes Second Hand Exposure: No; Do You Dip or Chew Tobacco: No; Tobacco Cessation Education Requested by Patient: No Hx Alcohol Use: No Hx Substance Use: No Preferred Language: Yoruba Communication Ability: Effective Visual Impairment: No Limitations Hearing Ability: Normal Surgery Nurse Required: No Beliefs That Will Affect Care: None marital status: / Current Living Situation: Personal Care Facility Current Living Situation Comment: [facility] current occupational status: retired Other Information That Helps Us Care for You: No other: walks with walker Feels Safe at Home: Yes Assistive Devices: Oxygen - at Night and Wheelchair Review of Systems Review of Systems: At least ten systems reviewed and negative except as noted in the HPI. Physical Exam Physical Exam: General Appearance: WD/WN, vitals as above, NAD, sitting up in bed, pleasant, conversing easily but disoriented Head: normocephalic, atraumatic Eyes: normal inspection, PERRL, conjunctivae normal, anicteric sclerae ENT: external ear and nose normal, oropharynx normal Neck: normal visual inspection, trachea midline, no thyromegaly Respiratory: increased respiratory effort, coarse lung sounds at bases, poor air movement, no wheeze or rhonchi. No accessory muscle use Cardiovascular: regular rate, rhythm, faint systolic murmur, normal peripheral pulses, 1+ BLE edema. Vessels: no JVD Chest: normal inspection of chest Abdomen/GI: normal bowel sounds, soft, nontender, no hepatosplenomegaly Extremities/Musculoskeletal: no cyanosis or clubbing, extremities motor strength 5/5. S/p L toe amputation Neurologic: PERRL, EOMI, accommodation nl, no face palsy, no dysarthria, CN's II-XI intact bilaterally and moves all extremities Psychiatric: A+Ox to person only, confused on location and situation, euthymic affect Skin: no rashes, normal color, warm/dry Results & Data Results & Data ([facility]) Vital Signs (Past 12 Hours) Vital Signs Temp Pulse Resp BP Pulse Ox 04/13/21 06:37 18 95 04/13/21 06:13 37.0 C 91 H 19 141/90 H 98 Laboratory Results Short CBC 04/13/21 04/13/21 Range/Units 05:44 05:44 WBC 8.99 (4.8-10.8) K/uL Hgb 12.5 L (14.0-18.0) g/dL Hct 40.5 L (42-52) % Plt Count 158 (130-400) K/uL Troponin I 0.047 H* (0-0.045) ng/ml BMP 04/13/21 05:44 Sodium 140 Potassium 3.9 Chloride 104 Carbon Dioxide 33 H BUN 20 H Creatinine 1.20 Glucose 117 H Calcium 8.9 Cardiac Enzymes 04/13/21 Range/Units 05:44 Troponin I 0.047 H* (0-0.045) ng/ml Diagnostic Findings Chest X-Ray 04/13/21 06:16 XR chest 1V portable 04/13/2021 at 6:11 AM CLINICAL HISTORY: hypoxia. Follow-up possible right lower lobe pneumonia COMPARISON STUDY: 03/14/2021 at 9:38 AM TECHNIQUE: 1 view of the chest FINDINGS: Single frontal view of the chest demonstrates the heart to again be enlarged. Compared to the previous examination, right lower lobe alveolar opacity has resolved. However, there are now nodular densities identified within both lungs which are more conspicuous on the current study. The findings suggest the presence of calcified granulomata versus metastatic disease. Follow-up CT of the chest is recommended. No confluent alveolar opacities or air bronchograms are seen. There is no evidence for pleural effusion. There is no evidence for vascular congestion. There is no acute osseous pathology. IMPRESSION: 1. Cardiomegaly with no evidence for confluent alveolar opacity or vascular congestion. 2. Evidence for nodular densities within the lungs bilaterally with follow-up recommended as described. ACT 112: Negative or not required by law. Electronically signed by: Patel Robin M.D. 04/13/2021 7:[address] 04/13/21 07:15 CT chest diagnostic wo con CT DOSE: 868.48 mGy.cm CLINICAL HISTORY: 89 years-old Male with sob. Acute shortness of breath TECHNIQUE: Multiaxial CT images of the chest were performed without contrast. A dose lowering technique was utilized adhering to the principles of ALARA. COMPARISON: Chest radiograph of same day, CT chest 06/06/2020 FINDINGS: Heterogeneity of the thyroid. Borderline enlarged mediastinal lymph nodes are redemonstrated measuring up to 10 mm. Calcified left hilar lymph nodes suggest prior granulomatous disease. Cardiomegaly with trace pericardial effusion. Extensive coronary artery calcifications. Calcifications of the mitral annulus are also noted. Aortic valvular endograft. Atherosclerosis of the aorta with mild fusiform dilation of the ascending segment measuring 4.0 x 4.0 cm, unchanged. Trace pleural effusions. Chronic pleural thickening with calcified pleural plaques. Emphysema. No pneumothorax. Bibasilar consolidation with air bronchograms, mildly improved within the right lung base and slightly progressed within the left lung base. Bibasilar bronchial wall thickening. Mild new tree-in-bud nodules of the lung bases. There is a subpleural reticulation are suggestive of fibrosis. Mild intralobular septal thickening throughout the right lung. Mild tracheobronchial secretions. Large hiatal hernia contains the majority of the stomach with portion of the transverse colon. Colonic diverticulosis. Unremarkable soft tissues. Degenerative changes of the shoulders and spine. IMPRESSION: 1. Cardiomegaly with unchanged mild dilation of the ascending thoracic aorta, 4.0 x 4.0 cm. 2. 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 3. Mild tree-in-bud nodular consolidative opacities of the lung bases are new from prior suggestive of an infectious or inflammatory pneumonitis. 4. Borderline enlarged mediastinal adenopathy is stable. 5. Large hiatal hernia. ACT 112: Negative or not required by law. Electronically signed by: Bang Carlos M.D. 04/13/2021 8:29 AM Supervising Physician Co-Signing Physician Notes Pt seen and examined by me, care coordinated w/ Suhail Nieves PA-C, pls refer to her note above for further detail. Pt is an 89yo M presenting from [facility] with PMH of COPD, CKD, chronic diastolic heart failure, HTN, h/o atrial flutter, PVD who presented with hypoxia. Recently admitted from 03/10-03/24 for AMS in setting of multifocal pneumonia with positive MRSA screen. Received IV Vanco and Zosyn which was deescalated to Augmentin and doxycycline. Currently patient is lying in bed, in no acute distress. He is able to answer some questions appropriately. However he is not sure what happened prior to coming to hospital. He is currently on supplemental oxygen. Lung sounds- + rhonchi/ coarse, no wheezing noted. Heart sounds regular. Abdomen soft, nontender, nondistended, obese. There is some lower extremity edema noted,( per patient increased for the past few days). Skin is warm dry. Patient is moving extremities. Started on empiric antibiotic in ED. Will give IV Lasix now, then switch to p.o. from tomorrow, and re-assess. Lasix dose was decreased at the last admission, possibly contributing to current presentation. Continue to closely monitor. Jairo Daniels MD
[2021-04-13] MEDS ORDERED: VANCOMYCIN CONSULT ACTIVE PRN (10:04)
[2021-04-13] MEDS ORDERED: VANCOMYCIN HCL 2,250 MG in SODIUM CHLORIDE 0.9% 500 ML IV ONE (10:04)
[2021-04-13 11:15] LABS: Base Excess ABG 7.1 mEq/L (-9-1.8); HCO3 ABG 32 mmol/L (19-24); Oxygen Saturation ABG 94.5 % (90-95); PCO2 ABG 47 mmHg (35-46); PO2 ABG 68 mmHg (80-95); pH ABG 7.45 (7.35-7.45)
[2021-04-13 11:20] LABS: Allen Test Pos (Pos)
[2021-04-13] MEDS ORDERED: CONSULT PHARMACY STA (11:47)
[2021-04-13] MEDS ORDERED: metroNIDAZOLE 500 MG TAB PO STA ×2 (11:54→15:17)
[2021-04-13] MEDS ORDERED: FUROSEMIDE 40 MG/4 ML VIAL IV ONE ×2 (12:00→15:30)
[2021-04-13] MEDS: METOPROLOL SUCC 50MG EXT REL TAB PO SCH (12:34)
[2021-04-13 15:02] LABS: Appearance Urine Clear (Clear); Bilirubin Urine Negative (Negative); Blood Urine Negative (Negative); Color Urine Yellow; Glucose Urine UA Negative (Negative); Ketones Urine Negative (Negative); Leukocyte Esterase Urine Negative (Negative); Nitrite Urine Negative (Negative); Protein Urine Negative (Negative); Specific Gravity Urine 1.009 (1.000-1.030); Urobilinogen Urine Negative (Negative); pH Urine 8.5 (4.5-7.5)
--- NOTE | 2021-04-13 15:25 | Pharmacy Report ---
Pharmacy Vanc AUC Short Note - Date of Service April 13, 2021 - Assessment & Plan Assessment 89 year old M started on vancomycin/cefepime/flagyl for possible HAP. Recent admission for pneumonia last month, treated with vanco/zosyn then changed to augmentin/doxy. Blood cultures pending Plan Vancomycin * AUC/AJAY is the preferred PK/PD target for vancomycin * AUC guided dosing is effective and associated with decreased risk of nephrotoxicity compared to traditional trough targets * Received loading dose of vancomycin 2250 mg x 1, then started on vancomycin 1250 mg iv q 24 hrs * This dosing is predicted to achieve a trough level of 17 mcg/mL is predicted to achieve target AUC/AJAY of 400-600 mg/L.hr and may be associated with a 12 % risk of nephrotoxicity * Plan to order a level if continued >48 hrs or sooner if renal function changes Pharmacy will continue to follow and will adjust dose/frequency as necessary. Thank you.
[2021-04-13] MEDS ORDERED: LOPERAMIDE HCL 2 MG CAP PO PRN (19:18)
[2021-04-13] MEDS ORDERED: POLYETHYLENE (MIRALAX) 17 GM PACK PO PRN (19:18)
[2021-04-13] MEDS ORDERED: DOCUSATE SODIUM 100 MG CAP PO PRN (19:18)
[2021-04-13] MEDS ORDERED: ACETAMINOPHEN 325 MG TAB PO PRN (19:18)
[2021-04-13] MEDS ORDERED: LIDOCAINE 1.8% TOP PRN (19:18)
[2021-04-13] MEDS ORDERED: WHITE PETROLATUM TOP PRN (19:18)
[2021-04-13] MEDS ORDERED: ALBUT/IPRATROP 3MG/0.5MG NEB 3 ML VIAL INH PRN (19:18)
[2021-04-13] MEDS ORDERED: CEFEPIME 2,000 MG in SYRINGE 7.5 ML IV SCH (19:18)
[2021-04-13] MEDS ORDERED: IPRATROPIUM BROMIDE/ALBUTEROL respimat INH INH PRN (19:18)
[2021-04-13] MEDS ORDERED: ONDANSETRON INJ 2 MG/ML 2 ML VIAL IV PRN (19:18)
[2021-04-13] MEDS ORDERED: IPRATROPIUM BROMIDE HFA INHALER INH PRN (19:37)
[2021-04-13] MEDS ORDERED: ALBUTEROL HFA 8 GM INHALER INH PRN (19:37)
[2021-04-13] MEDS: CEFEPIME 2,000 MG in SYRINGE 0 ML IV SCH (21:00)
[2021-04-13] MEDS: MELATONIN 3 MG TAB PO SCH (21:01)
[2021-04-13] MEDS: MAGNESIUM OXIDE 400 MG TAB PO SCH (21:01)
[2021-04-13] MEDS: GABAPENTIN 300 MG CAP PO SCH (21:01)
[2021-04-13] MEDS: TAMSULOSIN HCL 0.4 MG CAP PO SCH (21:01)
[2021-04-13] MEDS: metroNIDAZOLE 500 MG TAB PO SCH (21:01)
[2021-04-13] MEDS: ATORVASTATIN 40 MG TAB PO SCH (21:01)
[2021-04-13] MEDS: MENTHOL-ZINC OXIDE 360 APPLN/120 GM TUBE EXT SCH (21:02)
[2021-04-13] MEDS: MIRTAZAPINE TAB 15 MG TAB PO SCH (22:37)
[2021-04-14] MEDS: MENTHOL-ZINC OXIDE 360 APPLN/120 GM TUBE EXT SCH ×4 (00:51→20:06)
[2021-04-14] MEDS: GABAPENTIN 300 MG CAP PO SCH ×4 (00:52→20:03)
[2021-04-14] MEDS: metroNIDAZOLE 500 MG TAB PO SCH ×3 (05:05→20:06)
[2021-04-14] MEDS: VANCOMYCIN HCL 1,250 MG in SODIUM CHLORIDE 0.9% 250 ML IV SCH (05:34)
[2021-04-14] MEDS: LEVOTHYROXINE SODIUM 75 MCG TABLET PO SCH (05:36)
[2021-04-14 06:11] LABS: Hematocrit (blood only) 42.3 % (42-52); Hemoglobin 13.3 g/dL (14.0-18.0); Mean Corpuscular Hemoglobin 28.5 pg (25-34); Mean Corpuscular Hgb Conc 31.4 g/dL (32-36); Mean Corpuscular Volume 90.8 fL (80-100); Mean Platelet Volume 9.4 fL (7.4-10.4); Platelet Count 154 K/uL (130-400); RDW Coefficient of Variation 15.5 % (11.5-14.5); RDW Standard Deviation 51.6 fL (36.4-46.3); Red Blood Count 4.66 M/uL (4.7-6.1); White Blood Count 7.85 K/uL (4.8-10.8)
[2021-04-14 06:34] LABS: BUN Creatinine Ratio 16.8 (10-20); Calcium 8.6 mg/dl (8.5-10.1); Creatinine Clr Calc Pharmacy 50.1 ml/min; Est GFR (African American) 66.4 ml/min; Est GFR (Non-African American) 57.3 ml/min; Potassium 3.8 mmol/L (3.5-5.1)
--- NOTE | 2021-04-14 08:12 | Electrocardiogram Report ---
Test Reason : Blood Pressure : / mmHG Vent. Rate : 091 BPM Atrial Rate : 091 BPM P-R Int : 254 ms QRS Dur : 114 ms QT Int : 394 ms P-R-T Axes : 000 -50 072 degrees QTc Int : 484 ms Sinus rhythm with 1st degree A-V block Left axis deviation Prolonged QT Abnormal ECG When compared with ECG of 10-MAR-2021 04:02, Minimal criteria for Anterior infarct are no longer Present Confirmed by Rasta Lea ([id number]) on 04/14/2021 8:11:29 AM Referred By: Confirmed By:Rasta Lea
--- NOTE | 2021-04-14 08:21 | Hospitalist Progress Note ---
Date of Service April 14, 2021 Assessment & Plan (1) Hypoxia: (2) Pneumonia of both lower lobes: (3) COPD (chronic obstructive pulmonary disease): (4) Left shoulder pain: (5) Hypertension: (6) Elevated troponin: (7) H/O atrial flutter: (8) Chronic diastolic heart failure: (9) Aortic stenosis: (10) BPH with obstruction/lower urinary tract symptoms: Plan: This is an 89yo M presenting from [facility] with PMH of COPD, CKD, chronic diastolic heart failure, HTN, h/o atrial flutter, PVD and other medical problems listed below who presented with hypoxia. Recently admitted from 03/10-03/24 for AMS in setting of multifocal pneumonia with positive MRSA screen Received IV Vanco and Zosyn which was deescalated to Augmentin and doxycycline. 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 Pro-bnp wnl. Procal pending Worsening BLE edema in setting of decreased lasix dose, ? side effect to increased amlodipine dose Continue empiric cefepime and vanc in setting of possible HAP - adding Flagyl for aspiration coverage Given 40mg IV Lasix in ED. Monitor I&Os Aspiration precautions, pureed diet per [facility] Per discussion with daughter and [facility] RN, plan to pursue palliative care consult to discuss goals given repeat admissions, multiple comorbid conditions Likely to need 2 step prior to discharge Troponin elevation Trop elevated at 0.047,has been elevated on previous admissions since 2019 ECG without acute changes COPD (chronic obstructive pulmonary disease) Chronic prednisone 5 mg daily at baseline Continue home inhalers, nebs No signs of acute exacerbation Chronic diastolic heart failure Echo 09/09/20 showing EF of 60 to 64%, LV wall thickness moderately increased, concentric, s/p TAVR with CoreValve prosthesis valve, mild perivalvular aortic valve prosthesis regurg, mild tricuspid regurg, mild pulm HTN Lasix decreased from 60mg to 20mg during previous admission in setting of MAXI Increasing dose back to 40mg - monitor volume status H/O atrial flutter Not anticoagulated due to fall risk, rate controlled on metoprolol Hypertension Amlodipine increased during previous admission, now with increased BLE edema - went back to previous dose of 5mg daily Continue metoprolol succinate to 50 mg daily Peripheral vascular disease Continue statin and Plavix Left shoulder pain No fractures, chronic rotator cuff injury on imaging last month S/p Steroid injection on 03/[address] Cast Further Ortho recommendations: Transition to outpatient PT with follow-up scheduled with Dr Cast in 3-6 weeks as outpatient DVT Ppx: SQ heparin Code status: FULL PCP: Dr. Albarran Dispo: Admitted to med/surg Admission and Anticipated Discharge Date Admission Date: April 13, 2021 Subjective Patient seen in follow-up of AMS, hypoxia, concern for recurrent pneumonia Pt recently admitted to the hospital, and treated for pneumonia Currently patient says he is feeling better, he is able to answer simple questions appropriately. Denies any chest pain, increased shortness of breath, fevers chills, increased cough. Patient however appears quite weak and sleepy. Review of Systems Review of Systems: All systems reviewed & are unremarkable except as noted in Subjective Physical Exam Physical Exam: General Appearance:WD/WN, elderly M in NAD,chronically ill appearing Head: normocephalic, atraumatic Eyes:normal inspection, PERRL, EOMI, conjunctivae normal, anicteric sclerae ENT: external ear and nose normal, oropharynx normal Neck: normal visual inspection Respiratory:+ rhonchi, no wheezing, poor air movement. No accessory muscle use Cardiovascular: regular rate, rhythm, faint systolic murmur, normal peripheral pulses, 1+ BLE edema. Vessels: no JVD Chest: normal inspection of chest Abdomen/GI: normal bowel sounds, soft, nontender Extremities/Musculoskeletal:extremities motor strength 5/5. S/p L toe amputation Neurologic: Alert oriented, answering questions appropriately, EOMI, no face palsy, no dysarthria, moves all extremities Psychiatric: euthymic affect Skin: no rashes, normal color, warm/dry Results & Data Results & Data ([facility]) Vital Signs (Past 12 Hours) Vital Signs Temp Pulse Resp BP Pulse Ox Pulse Ox 12/24/21 07:39 77 04/14/21 02:05 81 04/14/21 01:47 36.9 C 16 150/75 H 90 04/14/21 00:02 96 Laboratory Results 04/14/21 04/14/21 04/14/21 Range/Units 07:49 05:50 05:50 WBC 7.85 (4.8-10.8) K/uL RBC 4.66 L (4.7-6.1) M/uL Hgb 13.3 L (14.0-18.0) g/dL Hct 42.3 (42-52) % MCV 90.8 (80-100) fL MCH 28.5 (25-34) pg MCHC 31.4 L (32-36) g/dL RDW Std Deviation 51.6 H (36.4-46.3) fL RDW Coeff of Morris 15.5 H (11.5-14.5) % Plt Count 154 (130-400) K/uL MPV 9.4 (7.4-10.4) fL ABG pH (7.35-7.45) ABG pCO2 (35-46) mmHg ABG pO2 (80-95) mmHg ABG HCO3 (19-24) mmol/L ABG O2 Saturation (90-95) % ABG Base Excess (-9-1.8) mEq/L Santos Test (Pos) Barometric Pressure mm/Hg Oxygen Given Sodium 140 (136-145) mmol/L Potassium 3.8 (3.5-5.1) mmol/L Chloride 104 (98-107) mmol/L Carbon Dioxide 32 (21-32) mmol/L Anion Gap 4.0 (3-11) BUN 19 H (7-18) mg/dl Creatinine 1.13 (0.6-1.4) mg/dl Est Cr Clr Drug Dosing 50.1 ml/min Est GFR ( Amer) 66.4 ml/min Est GFR (Non-Af Amer) 57.3 ml/min BUN/Creatinine Ratio 16.8 (10-20) Glucose 118 H (70-99) mg/dl POC Glucose 109 H (70-99) mg/dl Calcium 8.6 (8.5-10.1) mg/dl NT-Pro-B Natriuret Pep (0-1800) pg/ml Procalcitonin (0-0.5) ng/ml Urine Color Urine Appearance (Clear) Urine pH (4.5-7.5) Ur Specific [place] (1.000-1.030) Urine Protein (Negative) Urine Glucose (UA) (Negative) Urine Ketones (Negative) Urine Blood (Negative) Urine Nitrite (Negative) Urine Bilirubin (Negative) Urine Urobilinogen (Negative) Ur Leukocyte Esterase (Negative) Nasal Screen MRSA (PCR) (Negative) 04/13/21 04/13/21 04/13/21 Range/Units 19:49 14:36 11:00 WBC (4.8-10.8) K/uL RBC (4.7-6.1) M/uL Hgb (14.0-18.0) g/dL Hct (42-52) % MCV (80-100) fL MCH (25-34) pg MCHC (32-36) g/dL RDW Std Deviation (36.4-46.3) fL RDW Coeff of Morris (11.5-14.5) % Plt Count (130-400) K/uL MPV (7.4-10.4) fL ABG pH 7.45 (7.35-7.45) ABG pCO2 47 H (35-46) mmHg ABG pO2 68 L (80-95) mmHg ABG HCO3 32 H (19-24) mmol/L ABG O2 Saturation 94.5 (90-95) % ABG Base Excess 7.1 H (-9-1.8) mEq/L Santos Test Pos (Pos) Barometric Pressure 737.1 mm/Hg Oxygen Given 2 Sodium (136-145) mmol/L Potassium (3.5-5.1) mmol/L Chloride (98-107) mmol/L Carbon Dioxide (21-32) mmol/L Anion Gap (3-11) BUN (7-18) mg/dl Creatinine (0.6-1.4) mg/dl Est Cr Clr Drug Dosing ml/min Est GFR ( Amer) ml/min Est GFR (Non-Af Amer) ml/min BUN/Creatinine Ratio (10-20) Glucose (70-99) mg/dl POC Glucose (70-99) mg/dl Calcium (8.5-10.1) mg/dl NT-Pro-B Natriuret Pep (0-1800) pg/ml Procalcitonin (0-0.5) ng/ml Urine Color Yellow Urine Appearance Clear (Clear) Urine pH 8.5 H (4.5-7.5) Ur Specific [place] 1.009 (1.000-1.030) Urine Protein Negative (Negative) Urine Glucose (UA) Negative (Negative) Urine Ketones Negative (Negative) Urine Blood Negative (Negative) Urine Nitrite Negative (Negative) Urine Bilirubin Negative (Negative) Urine Urobilinogen Negative (Negative) Ur Leukocyte Esterase Negative (Negative) Nasal Screen MRSA (PCR) Positive A (Negative) 04/13/21 04/13/21 Range/Units 05:44 05:44 WBC (4.8-10.8) K/uL RBC (4.7-6.1) M/uL Hgb (14.0-18.0) g/dL Hct (42-52) % MCV (80-100) fL MCH (25-34) pg MCHC (32-36) g/dL RDW Std Deviation (36.4-46.3) fL RDW Coeff of Morris (11.5-14.5) % Plt Count (130-400) K/uL MPV (7.4-10.4) fL ABG pH (7.35-7.45) ABG pCO2 (35-46) mmHg ABG pO2 (80-95) mmHg ABG HCO3 (19-24) mmol/L ABG O2 Saturation (90-95) % ABG Base Excess (-9-1.8) mEq/L Santos Test (Pos) Barometric Pressure mm/Hg Oxygen Given Sodium (136-145) mmol/L Potassium (3.5-5.1) mmol/L Chloride (98-107) mmol/L Carbon Dioxide (21-32) mmol/L Anion Gap (3-11) BUN (7-18) mg/dl Creatinine (0.6-1.4) mg/dl Est Cr Clr Drug Dosing ml/min Est GFR ( Amer) ml/min Est GFR (Non-Af Amer) ml/min BUN/Creatinine Ratio (10-20) Glucose (70-99) mg/dl POC Glucose (70-99) mg/dl Calcium (8.5-10.1) mg/dl NT-Pro-B Natriuret Pep 1061 (0-1800) pg/ml Procalcitonin 0.08 (0-0.5) ng/ml Urine Color Urine Appearance (Clear) Urine pH (4.5-7.5) Ur Specific [place] (1.000-1.030) Urine Protein (Negative) Urine Glucose (UA) (Negative) Urine Ketones (Negative) Urine Blood (Negative) Urine Nitrite (Negative) Urine Bilirubin (Negative) Urine Urobilinogen (Negative) Ur Leukocyte Esterase (Negative) Nasal Screen MRSA (PCR) (Negative) Medications Administered Current Inpatient Medications Acetaminophen (Acetaminophen 325 Mg Tab) 650 mg PO Q4H PRN PRN Reason: Pain or Fever Stop: 05/13/21 19:17 Albuterol (Albut/Ipratrop 3mg/0.5mg Neb 3 Ml Vial) 3 ml INH Q4R PRN; Protocol PRN Reason: Cough Stop: 05/13/21 19:17 Albuterol (Albuterol Hfa 8 Gm Inhaler) 1 puffs INH BIDR PRN PRN Reason: SOB/WHEEZING Stop: 05/13/21 19:36 Allopurinol (Allopurinol 300 Mg Tab) 300 mg PO QAM [facility] Stop: 05/14/21 08:59 Amlodipine Besylate (Amlodipine Besylate 5 Mg Tab) 5 mg PO QAM [facility] Stop: 05/14/21 08:59 Atorvastatin Calcium (Atorvastatin 40 Mg Tab) 40 mg PO HS [facility] Stop: 05/13/21 20:59 Last Admin: 04/13/21 21:01 Dose: 40 mg Documented by: Calamine/Phenol (Menthol-Zinc Oxide 360 Appln/120 Gm Tube) 1 appln EXT TID [facility] Stop: 05/13/21 19:17 Last Admin: 04/14/21 00:51 Dose: 1 appln Documented by: Clopidogrel Bisulfate (Clopidogrel Bisulfate 75 Mg Tab) 75 mg PO QAM [facility] Stop: 05/14/21 08:59 Docusate Sodium (Docusate Sodium 100 Mg Cap) 200 mg PO Q12 PRN PRN Reason: Constipation Ferrous Sulfate (Ferrous Sulfate 325 Mg Tab) 325 mg PO QAM [facility] Stop: 05/14/21 08:59 Finasteride (Finasteride 5 Mg Tab) 5 mg PO QAM [facility] Stop: 05/14/21 08:59 Fluticasone Furoate (Fluticasone Furoate 200mcg 14 Puffs/Inhaler) 1 puffs INH DAILY [facility]; Protocol Stop: 05/14/21 08:59 Furosemide (Furosemide 40 Mg Tab) 40 mg PO QAM [facility] Stop: 05/14/21 08:59 Gabapentin (Gabapentin 300 Mg Cap) 300 mg PO TID [facility] Stop: 05/13/21 19:17 Last Admin: 04/14/21 00:52 Dose: Not Given Documented by: Vancomycin HCl 1,250 mg/ (Sodium Chloride) 275 mls @ 200 mls/hr IV Q24H [facility] Stop: 04/21/21 05:59 Last Infusion: 04/14/21 07:39 Dose: Infused Documented by: Cefepime HCl 2,000 mg/ Syringe 20 mls @ 5 mls/min IV Q12 [facility]; Protocol Stop: 04/20/21 20:59 Last Admin: 04/13/21 21:00 Dose: 5 mls/min Documented by: Ipratropium Chuckey (Ipratropium Chuckey Hfa Inhaler) 1 puffs INH BIDR PRN PRN Reason: SOB/WHEEZING Stop: 05/13/21 19:36 Levothyroxine Sodium (Levothyroxine Sodium 75 Mcg Tablet) 75 mcg PO DAILYBB [facility] Stop: 05/14/21 06:29 Last Admin: 04/14/21 05:36 Dose: 75 mcg Documented by: Loperamide HCl (Loperamide Hcl 2 Mg Cap) 2 mg PO Q4H PRN PRN Reason: Diarrhea Stop: 05/13/21 19:17 Magnesium Oxide (Magnesium Oxide 400 Mg Tab) 400 mg PO BID [facility] Stop: 05/13/21 20:59 Last Admin: 04/13/21 21:01 Dose: 400 mg Documented by: Melatonin (Melatonin 3 Mg Tab) 3 mg PO HS [facility] Stop: 05/13/21 20:59 Last Admin: 04/13/21 21:01 Dose: 3 mg Documented by: Metoprolol Succinate (Metoprolol Succ 50mg Ext Rel Tab) 50 mg PO QAM [facility] Stop: 05/13/21 11:45 Last Admin: 04/13/21 12:34 Dose: 50 mg Documented by: Metronidazole (Metronidazole 500 Mg Tab) 500 mg PO Q8 [facility]; Protocol Stop: 04/20/21 21:59 Last Admin: 04/14/21 05:05 Dose: 500 mg Documented by: Mirabegron (Mirabegron Er 25 Mg Tab) 50 mg PO QAWW [facility] Stop: 05/14/21 08:59 Mirtazapine (Mirtazapine Tab 15 Mg Tab) 7.5 mg PO [facility] Stop: 05/13/21 20:59 Last Admin: 04/13/21 22:37 Dose: 7.5 mg Documented by: Miscellaneous Information (Vancomycin Consult Active) 1 ea N/A UD PRN PRN Reason: Consult Stop: 05/13/21 10:03 Multivitamins/Minerals (Cerovite Adv Formula Tab) 1 tab PO [facility] Stop: 05/14/21 08:59 Ondansetron HCl (Ondansetron Inj 2 Mg/Ml 2 Ml Vial) 4 mg IV Q6H PRN PRN Reason: Nausea Stop: 05/13/21 19:17 Polyethylene Glycol (Polyethylene (Miralax) 17 Gm Pack) 17 gm PO DAILY PRN PRN Reason: Constipation Stop: 05/13/21 19:17 Prednisone (Prednisone 5 Mg Tab) 5 mg PO [facility] Stop: 05/14/21 08:59 Tamsulosin HCl (Tamsulosin Hcl 0.4 Mg Cap) 0.4 mg PO [facility] Stop: 05/13/21 20:59 Last Admin: 04/13/21 21:01 Dose: 0.4 mg Documented by: Vitamin D (Cholecalciferol 1,000 Units 25 Mcg Tab) 2,000 units PO QAWW [facility] Stop: 05/14/21 08:59
[2021-04-14] MEDS ORDERED: NON-FORMULARY MEDICATION (Saliva Substitute Combo No.9 [Biotene Dry Mouth Oral Rinse] Mout PO SCH (09:00)
[2021-04-14] MEDS: amLODIPine BESYLATE 5 MG TAB PO SCH (10:39)
[2021-04-14] MEDS: CEFEPIME 2,000 MG in SYRINGE 0 ML IV SCH ×2 (10:39→20:03)
[2021-04-14] MEDS: FINASTERIDE 5 MG TAB PO SCH (10:39)
[2021-04-14] MEDS: allopurinoL 300 MG TAB PO SCH (10:39)
[2021-04-14] MEDS: FLUTICASONE FUROATE 200MCG 14 PUFFS/INHALER INH SCH (10:39)
[2021-04-14] MEDS: CHOLECALCIFEROL 1,000 UNITS 25 MCG TAB PO SCH (10:39)
[2021-04-14] MEDS: FERROUS SULFATE 325 MG TAB PO SCH (10:39)
[2021-04-14] MEDS: CLOPIDOGREL BISULFATE 75 MG TAB PO SCH (10:39)
[2021-04-14] MEDS: MAGNESIUM OXIDE 400 MG TAB PO SCH ×2 (10:40→20:04)
[2021-04-14] MEDS: FUROSEMIDE 40 MG TAB PO SCH (10:40)
[2021-04-14] MEDS: METOPROLOL SUCC 50MG EXT REL TAB PO SCH (10:41)
[2021-04-14] MEDS: predniSONE 5 MG TAB PO SCH (10:41)
[2021-04-14] MEDS: CEROVITE ADV FORMULA TAB PO SCH (10:41)
[2021-04-14] MEDS: MIRABEGRON ER 25 MG TAB PO SCH (10:41)
[2021-04-14] MEDS: guaiFENesin 600 MG TABCR PO SCH ×2 (18:16→20:04)
[2021-04-14] MEDS: ATORVASTATIN 40 MG TAB PO SCH (20:03)
[2021-04-14] MEDS: MIRTAZAPINE TAB 15 MG TAB PO SCH (20:05)
[2021-04-14] MEDS: TAMSULOSIN HCL 0.4 MG CAP PO SCH (20:06)
[2021-04-14] MEDS: MELATONIN 3 MG TAB PO SCH (20:11)
[2021-04-15] MEDS: LEVOTHYROXINE SODIUM 75 MCG TABLET PO SCH (06:15)
[2021-04-15] MEDS: metroNIDAZOLE 500 MG TAB PO SCH ×3 (06:15→20:04)
[2021-04-15] MEDS: VANCOMYCIN HCL 1,250 MG in SODIUM CHLORIDE 0.9% 250 ML IV SCH (06:16)
[2021-04-15 07:23] LABS: Hematocrit (blood only) 39.8 % (42-52); Hemoglobin 12.4 g/dL (14.0-18.0); Mean Corpuscular Hemoglobin 28.4 pg (25-34); Mean Corpuscular Hgb Conc 31.2 g/dL (32-36); Mean Corpuscular Volume 91.3 fL (80-100); Mean Platelet Volume 9.5 fL (7.4-10.4); Platelet Count 166 K/uL (130-400); RDW Coefficient of Variation 15.4 % (11.5-14.5); RDW Standard Deviation 51.4 fL (36.4-46.3); Red Blood Count 4.36 M/uL (4.7-6.1); White Blood Count 7.18 K/uL (4.8-10.8)
[2021-04-15] MEDS: CEFEPIME 2,000 MG in SYRINGE 0 ML IV SCH ×2 (07:54→20:00)
[2021-04-15 07:55] LABS: BUN Creatinine Ratio 20.8 (10-20); Calcium 8.6 mg/dl (8.5-10.1); Creatinine Clr Calc Pharmacy 43.5 ml/min; Est GFR (African American) 56.1 ml/min; Est GFR (Non-African American) 48.4 ml/min; Potassium 3.7 mmol/L (3.5-5.1)
[2021-04-15] MEDS: guaiFENesin 600 MG TABCR PO SCH ×2 (07:55→20:05)
[2021-04-15] MEDS: MAGNESIUM OXIDE 400 MG TAB PO SCH ×2 (07:55→20:03)
[2021-04-15] MEDS: METOPROLOL SUCC 50MG EXT REL TAB PO SCH (07:55)
[2021-04-15] MEDS: FINASTERIDE 5 MG TAB PO SCH (07:56)
[2021-04-15] MEDS: CEROVITE ADV FORMULA TAB PO SCH (07:56)
[2021-04-15] MEDS: GABAPENTIN 300 MG CAP PO SCH ×3 (07:56→20:05)
[2021-04-15] MEDS: FERROUS SULFATE 325 MG TAB PO SCH (07:57)
[2021-04-15] MEDS: FUROSEMIDE 40 MG TAB PO SCH (07:58)
[2021-04-15] MEDS: CLOPIDOGREL BISULFATE 75 MG TAB PO SCH (07:58)
[2021-04-15] MEDS: allopurinoL 300 MG TAB PO SCH (07:58)
[2021-04-15] MEDS: MIRABEGRON ER 25 MG TAB PO SCH (07:58)
[2021-04-15] MEDS: amLODIPine BESYLATE 5 MG TAB PO SCH (07:59)
[2021-04-15] MEDS: predniSONE 5 MG TAB PO SCH (07:59)
[2021-04-15] MEDS: CHOLECALCIFEROL 1,000 UNITS 25 MCG TAB PO SCH (07:59)
[2021-04-15] MEDS: FLUTICASONE FUROATE 200MCG 14 PUFFS/INHALER INH SCH (08:00)
[2021-04-15] MEDS: MENTHOL-ZINC OXIDE 360 APPLN/120 GM TUBE EXT SCH ×3 (08:00→20:02)
[2021-04-15] MEDS ORDERED: POTASSIUM CHLORIDE CRTAB 20 MEQ TABCR PO STA (13:21)
--- NOTE | 2021-04-15 13:23 | Hospitalist Progress Note ---
Date of Service April 15, 2021 Assessment & Plan (1) Hypoxia: (2) Pneumonia of both lower lobes: (3) COPD (chronic obstructive pulmonary disease): (4) Left shoulder pain: (5) Hypertension: (6) Elevated troponin: (7) H/O atrial flutter: (8) Chronic diastolic heart failure: (9) Aortic stenosis: (10) BPH with obstruction/lower urinary tract symptoms: Plan: This is an 89yo M presenting from [facility] with PMH of COPD, CKD, chronic diastolic heart failure, HTN, h/o atrial flutter, PVD and other medical problems listed below who presented with hypoxia. Recently admitted from 03/10-03/24 for AMS in setting of multifocal pneumonia with positive MRSA screen Received IV Vanco and Zosyn which was deescalated to Augmentin and doxycycline. 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 Pro-bnp wnl. Procal negative. Worsening BLE edema in setting of decreased lasix dose, ? side effect to increased amlodipine dose Continue empiric cefepime and vanc in setting of possible HAP - added Flagyl for aspiration coverage Given 40mg IV Lasix in ED. Monitor I&Os Aspiration precautions, pureed diet per [facility] Added guaifenesin, encourage flutter valve, and incentive spirometry Try to obtain sputum culture Per discussion with daughter and [facility] RN, plan to pursue palliative care consult to discuss goals given repeat admissions, multiple comorbid conditions Likely to need 2 step prior to discharge Troponin elevation Trop elevated at 0.047,has been elevated on previous admissions since 2019 ECG without acute changes No chest pain COPD (chronic obstructive pulmonary disease) Chronic prednisone 5 mg daily at baseline Continue home inhalers, nebs No signs of acute exacerbation Chronic diastolic heart failure Echo 09/09/20 showing EF of 60 to 64%, LV wall thickness moderately increased, concentric, s/p TAVR with CoreValve prosthesis valve, mild perivalvular aortic valve prosthesis regurg, mild tricuspid regurg, mild pulm HTN Lasix decreased from 60mg to 20mg during previous admission in setting of MAXI Increasing dose back to 40mg - monitor volume status H/O atrial flutter Not anticoagulated due to fall risk, rate controlled on metoprolol Hypertension Amlodipine increased during previous admission, now with increased BLE edema - went back to previous dose of 5mg daily Continue metoprolol succinate to 50 mg daily Peripheral vascular disease Continue statin and Plavix Left shoulder pain No fractures, chronic rotator cuff injury on imaging last month S/p Steroid injection on 03/[address] Cast Further Ortho recommendations: Transition to outpatient PT with follow-up scheduled with Dr Cast in 3-6 weeks as outpatient DVT Ppx: SQ heparin Code status: DNR/DNI PCP: Dr. Albarran Dispo: Admitted to med/surg Admission and Anticipated Discharge Date Admission Date: April 13, 2021 Subjective Patient seen in follow-up of AMS, hypoxia, concern for recurrent pneumonia Pt recently admitted to the hospital, and treated for pneumonia Currently patient says he is feeling better, he is able to answer simple questions appropriately. Denies any chest pain, increased shortness of breath, fevers chills, increased cough. Patient however appears quite weak and sleepy. Try to obtain sputum cultx. Family updated at the bedside. Review of Systems Review of Systems: All systems reviewed & are unremarkable except as noted in Subjective Physical Exam Physical Exam: General Appearance:WD/WN, elderly M in NAD,chronically ill appearing Head: normocephalic, atraumatic Eyes:normal inspection, PERRL, EOMI, conjunctivae normal, anicteric sclerae ENT: external ear and nose normal, oropharynx normal Neck: normal visual inspection Respiratory:+ rhonchi, no wheezing, poor air movement. No accessory muscle use Cardiovascular: regular rate, rhythm, faint systolic murmur, normal peripheral pulses, 1+ BLE edema. Vessels: no JVD Chest: normal inspection of chest Abdomen/GI: normal bowel sounds, soft, nontender Extremities/Musculoskeletal:extremities motor strength 5/5. S/p L toe amputation Neurologic: Alert oriented, answering questions appropriately, EOMI, no face palsy, no dysarthria, moves all extremities Psychiatric: euthymic affect Skin: no rashes, normal color, warm/dry Results & Data Results & Data ([facility]) Vital Signs (Past 12 Hours) Vital Signs Temp Pulse Resp BP Pulse Ox 04/15/21 11:22 36.4 C L 72 18 119/73 97 04/15/21 07:07 36.9 C 86 17 105/64 88 L 04/15/21 03:46 36.6 C 74 18 131/79 93 Laboratory Results 04/15/21 04/15/21 Range/Units 06:27 06:27 WBC 7.18 (4.8-10.8) K/uL RBC 4.36 L (4.7-6.1) M/uL Hgb 12.4 L (14.0-18.0) g/dL Hct 39.8 L (42-52) % MCV 91.3 (80-100) fL MCH 28.4 (25-34) pg MCHC 31.2 L (32-36) g/dL RDW Std Deviation 51.4 H (36.4-46.3) fL RDW Coeff of Morris 15.4 H (11.5-14.5) % Plt Count 166 (130-400) K/uL MPV 9.5 (7.4-10.4) fL Sodium 138 (136-145) mmol/L Potassium 3.7 (3.5-5.1) mmol/L Chloride 102 (98-107) mmol/L Carbon Dioxide 31 (21-32) mmol/L Anion Gap 5.0 (3-11) BUN 27 H (7-18) mg/dl Creatinine 1.30 (0.6-1.4) mg/dl Est Cr Clr Drug Dosing 43.5 ml/min Est GFR ( Amer) 56.1 ml/min Est GFR (Non-Af Amer) 48.4 ml/min BUN/Creatinine Ratio 20.8 H (10-20) Glucose 106 H (70-99) mg/dl Calcium 8.6 (8.5-10.1) mg/dl Medications Administered Current Inpatient Medications Acetaminophen (Acetaminophen 325 Mg Tab) 650 mg PO Q4H PRN PRN Reason: Pain or Fever Stop: 05/13/21 19:17 Albuterol (Albut/Ipratrop 3mg/0.5mg Neb 3 Ml Vial) 3 ml INH Q4R PRN; Protocol PRN Reason: Cough Stop: 05/13/21 19:17 Albuterol (Albuterol Hfa 8 Gm Inhaler) 1 puffs INH BIDR PRN PRN Reason: SOB/WHEEZING Stop: 05/13/21 19:36 Allopurinol ([facility]op[facility]ol 300 Mg Tab) [facility] Stop: 05/14/21 08:59 Last Admin: 04/15/21 07:58 Dose: 300 mg Documented by: Amlodipine Besylate (Amlodipine Besylate 5 Mg Tab) 5 [facility] Stop: 05/14/21 08:59 Last Admin: 04/15/21 07:59 Dose: 5 mg Documented by: Atorvastatin Calcium (Atorvastatin 40 Mg Tab) 40 mg PO [facility] Stop: 05/13/21 20:59 Last Admin: 04/14/21 20:03 Dose: 40 mg Documented by: Calamine/Phenol (Menthol-Zinc Oxide 360 Appln/120 Gm Tube) 1 appln EXT TID [facility] Stop: 05/13/21 19:17 Last Admin: 04/15/21 08:00 Dose: 1 appln Documented by: Clopidogrel Bisulfate (Clopidogrel Bisulfate 75 Mg Tab) 75 mg PO [facility] Stop: 05/14/21 08:59 Last Admin: 04/15/21 07:58 Dose: 75 mg Documented by: Docusate Sodium (Docusate Sodium 100 Mg Cap) 200 mg PO Q12 PRN PRN Reason: Constipation Ferrous Sulfate (Ferrous Sulfate 325 Mg Tab) 325 mg PO [facility] Stop: 05/14/21 08:59 Last Admin: 04/15/21 07:57 Dose: 325 mg Documented by: Finasteride (Finasteride 5 Mg Tab) [facility] [place] Stop: 05/14/21 08:59 Last Admin: 04/15/21 07:56 Dose: 5 mg Documented by: Fluticasone Furoate (Fluticasone Furoate 200mcg 14 Puffs/Inhaler) 1 puffs INH DAILY [facility]; Protocol Stop: 05/14/21 08:59 Last Admin: 04/15/21 08:00 Dose: 1 puffs Documented by: Furosemide (Furosemide 40 Mg Tab) 40 mg PO [facility] Stop: 05/14/21 08:59 Last Admin: 04/15/21 07:58 Dose: 40 mg Documented by: Gabapentin (Gabapentin 300 Mg Cap) 300 mg PO TID [facility] Stop: 05/13/21 19:17 Last Admin: 04/15/21 07:56 Dose: 300 mg Documented by: Guaifenesin (Guaifenesin 600 Mg Tabcr) 600 mg PO Q12 [facility] Stop: 05/14/21 17:29 Last Admin: 04/15/21 07:55 Dose: 600 mg Documented by: Vancomycin HCl 1,250 mg/ (Sodium Chloride) 275 mls @ 200 mls/hr IV Q24H [facility] Stop: 04/21/21 05:59 Last Infusion: 04/15/21 08:05 Dose: Infused Documented by: Cefepime HCl 2,000 mg/ Syringe 20 mls @ 5 mls/min IV Q12 [facility]; Protocol Stop: 04/20/21 20:59 Last Admin: 04/15/21 07:54 Dose: 5 mls/min Documented by: Ipratropium [place] (Ipratropium [place] Hfa Inhaler) 1 puffs INH BIDR PRN PRN Reason: SOB/WHEEZING Stop: 05/13/21 19:36 Levothyroxine Sodium (Levothyroxine Sodium 75 Mcg Tablet) 75 mcg PO DAILYBB [facility] Stop: 05/14/21 06:29 Last Admin: 04/15/21 06:15 Dose: 75 mcg Documented by: Loperamide HCl (Loperamide Hcl 2 Mg Cap) 2 mg PO Q4H PRN PRN Reason: Diarrhea Stop: 05/13/21 19:17 Magnesium Oxide (Magnesium Oxide 400 Mg Tab) 400 mg PO BID [facility] Stop: 05/13/21 20:59 Last Admin: 04/15/21 07:55 Dose: 400 mg Documented by: Melatonin (Melatonin 3 Mg Tab) 3 mg PO HS [facility] Stop: 05/13/21 20:59 Last Admin: 04/14/21 20:11 Dose: 3 mg Documented by: Metoprolol Succinate (Metoprolol Succ 50mg Ext Rel Tab) 50 mg PO QAM [facility] Stop: 05/13/21 11:45 Last Admin: 04/15/21 07:55 Dose: 50 mg Documented by: Metronidazole (Metronidazole 500 Mg Tab) 500 mg PO Q8 [facility]; Protocol Stop: 04/20/21 21:59 Last Admin: 04/15/21 06:15 Dose: 500 mg Documented by: Mirabegron (Mirabegron Er 25 Mg Tab) 50 mg PO [facility] Stop: 05/14/21 08:59 Last Admin: 04/15/21 07:58 Dose: 50 mg Documented by: Mirtazapine (Mirtazapine Tab 15 Mg Tab) 7.5 mg PO [facility] Stop: 05/13/21 20:59 Last Admin: 04/14/21 20:05 Dose: 7.5 mg Documented by: Miscellaneous Information (Vancomycin Consult Active) 1 ea N/A UD PRN PRN Reason: Consult Stop: 05/13/21 10:03 Multivitamins/Minerals (Cerovite Adv Formula Tab) 1 tab PO [facility] Stop: 05/14/21 08:59 Last Admin: 04/15/21 07:56 Dose: 1 tab Documented by: Ondansetron HCl (Ondansetron Inj 2 Mg/Ml 2 Ml Vial) 4 mg IV Q6H PRN PRN Reason: Nausea Stop: 05/13/21 19:17 Polyethylene Glycol (Polyethylene (Miralax) 17 Gm Pack) 17 gm PO DAILY PRN PRN Reason: Constipation Stop: 05/13/21 19:17 Prednisone (Prednisone 5 Mg Tab) 5 mg PO [facility] Stop: 05/14/21 08:59 Last Admin: 04/15/21 07:59 Dose: 5 mg Documented by: Tamsulosin HCl (Tamsulosin Hcl 0.4 Mg Cap) 0.4 mg PO [facility] Stop: 05/13/21 20:59 Last Admin: 04/14/21 20:06 Dose: 0.4 mg Documented by: Vitamin D (Cholecalciferol 1,000 Units 25 Mcg Tab) 2,000 units PO [facility] Stop: 05/14/21 08:59 Last Admin: 04/15/21 07:59 Dose: 2,000 units Documented by:
[2021-04-15] MEDS: MELATONIN 3 MG TAB PO SCH (20:03)
[2021-04-15] MEDS: TAMSULOSIN HCL 0.4 MG CAP PO SCH (20:04)
[2021-04-15] MEDS: ATORVASTATIN 40 MG TAB PO SCH (20:04)
[2021-04-15] MEDS: MIRTAZAPINE TAB 15 MG TAB PO SCH (20:05)
[2021-04-16] MEDS: VANCOMYCIN HCL 1,250 MG in SODIUM CHLORIDE 0.9% 250 ML IV SCH (05:39)
[2021-04-16] MEDS: metroNIDAZOLE 500 MG TAB PO SCH ×3 (05:39→21:26)
[2021-04-16] MEDS: LEVOTHYROXINE SODIUM 75 MCG TABLET PO SCH (05:49)
[2021-04-16 06:13] LABS: Hematocrit (blood only) 39.3 % (42-52); Hemoglobin 12.1 g/dL (14.0-18.0); Mean Corpuscular Hemoglobin 28.4 pg (25-34); Mean Corpuscular Hgb Conc 30.8 g/dL (32-36); Mean Corpuscular Volume 92.3 fL (80-100); Mean Platelet Volume 9.2 fL (7.4-10.4); Platelet Count 164 K/uL (130-400); RDW Coefficient of Variation 15.4 % (11.5-14.5); RDW Standard Deviation 52.1 fL (36.4-46.3); Red Blood Count 4.26 M/uL (4.7-6.1); White Blood Count 6.36 K/uL (4.8-10.8)
[2021-04-16 06:38] LABS: BUN Creatinine Ratio 25.1 (10-20); Calcium 8.3 mg/dl (8.5-10.1); Creatinine Clr Calc Pharmacy 45.6 ml/min; Est GFR (African American) 59.4 ml/min; Est GFR (Non-African American) 51.2 ml/min; Magnesium 2.3 mg/dl (1.8-2.4); Phosphorus 2.4 mg/dl (2.5-4.9); Potassium 3.8 mmol/L (3.5-5.1)
[2021-04-16] MEDS: CEFEPIME 2,000 MG in SYRINGE 0 ML IV SCH ×2 (09:04→21:28)
[2021-04-16] MEDS: guaiFENesin 600 MG TABCR PO SCH ×2 (09:04→21:28)
[2021-04-16] MEDS: MIRABEGRON ER 25 MG TAB PO SCH (09:05)
[2021-04-16] MEDS: FLUTICASONE FUROATE 200MCG 14 PUFFS/INHALER INH SCH (09:05)
[2021-04-16] MEDS: FUROSEMIDE 40 MG TAB PO SCH (09:05)
[2021-04-16] MEDS: FERROUS SULFATE 325 MG TAB PO SCH (09:05)
[2021-04-16] MEDS: METOPROLOL SUCC 50MG EXT REL TAB PO SCH (09:05)
[2021-04-16] MEDS: allopurinoL 300 MG TAB PO SCH (09:05)
[2021-04-16] MEDS: GABAPENTIN 300 MG CAP PO SCH ×3 (09:05→21:27)
[2021-04-16] MEDS: MAGNESIUM OXIDE 400 MG TAB PO SCH ×2 (09:05→21:26)
[2021-04-16] MEDS: FINASTERIDE 5 MG TAB PO SCH (09:05)
[2021-04-16] MEDS: CEROVITE ADV FORMULA TAB PO SCH (09:05)
[2021-04-16] MEDS: amLODIPine BESYLATE 5 MG TAB PO SCH (09:06)
[2021-04-16] MEDS: MENTHOL-ZINC OXIDE 360 APPLN/120 GM TUBE EXT SCH ×3 (09:06→21:24)
[2021-04-16] MEDS: CHOLECALCIFEROL 1,000 UNITS 25 MCG TAB PO SCH (09:06)
[2021-04-16] MEDS: predniSONE 5 MG TAB PO SCH (09:06)
[2021-04-16] MEDS: CLOPIDOGREL BISULFATE 75 MG TAB PO SCH (09:06)
--- NOTE | 2021-04-16 17:30 | Hospitalist Progress Note ---
Date of Service April 16, 2021 Assessment & Plan (1) Hypoxia: (2) Pneumonia of both lower lobes: (3) COPD (chronic obstructive pulmonary disease): (4) Left shoulder pain: (5) Hypertension: (6) Elevated troponin: (7) H/O atrial flutter: (8) Chronic diastolic heart failure: (9) Aortic stenosis: (10) BPH with obstruction/lower urinary tract symptoms: Plan: This is an 89yo M presenting from [facility] with PMH of COPD, CKD, chronic diastolic heart failure, HTN, h/o atrial flutter, PVD and other medical problems listed below who presented with hypoxia. Recently admitted from 03/10-03/24 for AMS in setting of multifocal pneumonia with positive MRSA screen Received IV Vanco and Zosyn which was deescalated to Augmentin and doxycycline. Patient completed 10-day course of antibiotics on 03/21 Underwent video swallow, which showed no significant laryngeal penetration or aspiration Successfully weaned off of daytime oxygen, discharged back to [facility] Hypoxia Acute metabolic encephalopathy PNA of both lower lobes Mrsa swab positive (poss. mrsa pna vs. 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 Pro-bnp wnl. Procal negative. Worsening BLE edema in setting of decreased lasix dose, ? side effect to increased amlodipine dose Continue empiric cefepime and vanc in setting of possible HAP - added Flagyl for aspiration coverage Given 40mg IV Lasix in ED. Monitor I&Os Aspiration precautions, pureed diet per [facility] Added guaifenesin, encourage flutter valve, and incentive spirometry Sputum culture obtained - preliminary shows no organisms, final results pending Per discussion with daughter and [facility] RN, plan to pursue palliative care consult to discuss goals given repeat admissions, multiple comorbid conditions Likely to need 2 step prior to discharge Troponin elevation Trop elevated at 0.047,has been elevated on previous admissions since 2019 ECG without acute changes No chest pain COPD (chronic obstructive pulmonary disease) Chronic prednisone 5 mg daily at baseline Continue home inhalers, nebs No signs of acute exacerbation Chronic diastolic heart failure Echo 09/09/20 showing EF of 60 to 64%, LV wall thickness moderately increased, concentric, s/p TAVR with CoreValve prosthesis valve, mild perivalvular aortic valve prosthesis regurg, mild tricuspid regurg, mild pulm HTN Lasix decreased from 60mg to 20mg during previous admission in setting of MAXI Increasing dose back to 40mg - monitor volume status H/O atrial flutter Not anticoagulated due to fall risk, rate controlled on metoprolol Hypertension Amlodipine increased during previous admission, now with increased BLE edema - went back to previous dose of 5mg daily Continue metoprolol succinate to 50 mg daily Peripheral vascular disease Continue statin and Plavix Left shoulder pain No fractures, chronic rotator cuff injury on imaging last month S/p Steroid injection on 03/[address] Cast Further Ortho recommendations: Transition to outpatient PT with follow-up scheduled with Dr Cast in 3-6 weeks as outpatient DVT Ppx: SQ heparin Code status: DNR/DNI PCP: Dr. Albarran Dispo: Admitted to med/surg Admission and Anticipated Discharge Date Admission Date: April 13, 2021 Subjective Patient seen in follow-up of AMS, hypoxia, concern for recurrent pneumonia Pt recently admitted to the hospital, and treated for pneumonia Currently patient says he is feeling better, he is able to answer simple questions appropriately. Denies any chest pain, increased shortness of breath, fevers chills, increased cough. Patient however appears quite weak and sleepy. Sputum cultx obtained - pending. Family updated at the bedside yesterday and day before yesterday. Review of Systems Review of Systems: All systems reviewed & are unremarkable except as noted in Subjective Physical Exam Physical Exam: General Appearance:WD/WN, elderly M in NAD,chronically ill appearing Head: normocephalic, atraumatic Eyes:normal inspection, PERRL, EOMI, conjunctivae normal, anicteric sclerae ENT: external ear and nose normal, oropharynx normal Neck: normal visual inspection Respiratory:+ rhonchi, somewhat diminished, no wheezing, poor air movement. No accessory muscle use Cardiovascular: regular rate, rhythm, faint systolic murmur, normal peripheral pulses, trace + BLE edema. Vessels: no JVD Chest: normal inspection of chest Abdomen/GI: normal bowel sounds, soft, nontender Extremities/Musculoskeletal:extremities motor strength 5/5. S/p L toe amputation Neurologic: Alert oriented, answering questions appropriately, EOMI, no face palsy, no dysarthria, moves all extremities Psychiatric: euthymic affect Skin: no rashes, normal color, warm/dry Results & Data Results & Data ([facility]) Vital Signs (Past 12 Hours) Vital Signs Temp Pulse Pulse Resp BP Pulse Ox 04/16/21 15:26 85 04/16/21 15:00 36.6 C 87 20 159/87 H 92 04/16/21 11:00 36.7 C 79 20 130/75 97 04/16/21 10:50 85 04/16/21 07:00 36.9 C 80 20 142/81 H 94 Laboratory Results 04/16/21 04/16/21 Range/Units 05:44 05:44 WBC 6.36 (4.8-10.8) K/uL RBC 4.26 L (4.7-6.1) M/uL Hgb 12.1 L (14.0-18.0) g/dL Hct 39.3 L (42-52) % MCV 92.3 (80-100) fL MCH 28.4 (25-34) pg MCHC 30.8 L (32-36) g/dL RDW Std Deviation 52.1 H (36.4-46.3) fL RDW Coeff of [place] 15.4 H (11.5-14.5) % Plt Count 164 (130-400) K/uL MPV 9.2 (7.4-10.4) fL Sodium 141 (136-145) mmol/L Potassium 3.8 (3.5-5.1) mmol/L Chloride 106 (98-107) mmol/L Carbon Dioxide 31 (21-32) mmol/L Anion Gap 4.0 (3-11) BUN 31 H (7-18) mg/dl Creatinine 1.24 (0.6-1.4) mg/dl Est Cr Clr Drug Dosing 45.6 ml/min Est GFR ( Amer) 59.4 ml/min Est GFR (Non-Af Amer) 51.2 ml/min BUN/Creatinine Ratio 25.1 H (10-20) Glucose 99 (70-99) mg/dl Calcium 8.3 L (8.5-10.1) mg/dl Phosphorus 2.4 L (2.5-4.9) mg/dl Magnesium 2.3 (1.8-2.4) mg/dl Medications Administered Current Inpatient Medications Acetaminophen (Acetaminophen 325 Mg Tab) 650 mg PO Q4H PRN PRN Reason: Pain or Fever Stop: 05/13/21 19:17 Albuterol (Albut/Ipratrop 3mg/0.5mg Neb 3 Ml Vial) 3 ml INH Q4R PRN; Protocol PRN Reason: Cough Stop: 05/13/21 19:17 Albuterol (Albuterol Hfa 8 Gm Inhaler) 1 puffs INH BIDR PRN PRN Reason: SOB/WHEEZING Stop: 05/13/21 19:36 Allopurinol (Allopurinol 300 Mg Tab) 300 mg PO [facility] Stop: 05/14/21 08:59 Last Admin: 04/16/21 09:05 Dose: 300 mg Documented by: Amlodipine Besylate (Amlodipine Besylate 5 Mg Tab) 5 mg PO [facility] Stop: 05/14/21 08:59 Last Admin: 04/16/21 09:06 Dose: 5 mg Documented by: Atorvastatin Calcium (Atorvastatin 40 Mg Tab) 40 mg PO [facility] Stop: 05/13/21 20:59 Last Admin: 04/15/21 20:04 Dose: 40 mg Documented by: Calamine/Phenol (Menthol-Zinc Oxide 360 Appln/120 Gm Tube) 1 appln EXT TID [facility] Stop: 05/13/21 19:17 Last Admin: 04/16/21 14:31 Dose: 1 appln Documented by: Clopidogrel Bisulfate (Clopidogrel Bisulfate 75 Mg Tab) 75 mg PO [facility] Stop: 05/14/21 08:59 Last Admin: 04/16/21 09:06 Dose: 75 mg Documented by: Docusate Sodium (Docusate Sodium 100 Mg Cap) 200 mg PO Q12 PRN PRN Reason: Constipation Ferrous Sulfate (Ferrous Sulfate 325 Mg Tab) 325 mg PO [facility] Stop: 05/14/21 08:59 Last Admin: 04/16/21 09:05 Dose: 325 mg Documented by: Finasteride (Finasteride 5 Mg Tab) 5 mg PO [facility] Stop: 05/14/21 08:59 Last Admin: 04/16/21 09:05 Dose: 5 mg Documented by: Fluticasone Furoate (Fluticasone Furoate 200mcg 14 Puffs/Inhaler) 1 puffs INH DAILY [facility]; Protocol Stop: 05/14/21 08:59 Last Admin: 04/16/21 09:05 Dose: 1 puffs Documented by: Furosemide (Furosemide 40 Mg Tab) 40 mg PO QAM [facility] Stop: 05/14/21 08:59 Last Admin: 04/16/21 09:05 Dose: 40 mg Documented by: Gabapentin (Gabapentin 300 Mg Cap) 300 mg PO TID [facility] Stop: 05/13/21 19:17 Last Admin: 04/16/21 14:31 Dose: 300 mg Documented by: Guaifenesin (Guaifenesin 600 Mg Tabcr) 600 mg PO Q12 [facility] Stop: 05/14/21 17:29 Last Admin: 04/16/21 09:04 Dose: 600 mg Documented by: Vancomycin HCl 1,250 mg/ (Sodium Chloride) 275 mls @ 200 mls/hr IV Q24H [facility] Stop: 04/21/21 05:59 Last Infusion: 04/16/21 07:44 Dose: Infused Documented by: Cefepime HCl 2,000 mg/ Syringe 20 mls @ 5 mls/min IV Q12 [facility]; Protocol Stop: 04/20/21 20:59 Last Admin: 04/16/21 09:04 Dose: 5 mls/min Documented by: Ipratropium [place] (Ipratropium [place] Hfa Inhaler) 1 puffs INH BIDR PRN PRN Reason: SOB/WHEEZING Stop: 05/13/21 19:36 Levothyroxine Sodium (Levothyroxine Sodium 75 Mcg Tablet) 75 mcg PO DAILYBB [facility] Stop: 05/14/21 06:29 Last Admin: 04/16/21 05:49 Dose: 75 mcg Documented by: Loperamide HCl (Loperamide Hcl 2 Mg Cap) 2 mg PO Q4H PRN PRN Reason: Diarrhea Stop: 05/13/21 19:17 Magnesium Oxide (Magnesium Oxide 400 Mg Tab) 400 mg PO BID [facility] Stop: 05/13/21 20:59 Last Admin: 04/16/21 09:05 Dose: 400 mg Documented by: Melatonin (Melatonin 3 Mg Tab) 3 mg PO HS [facility] Stop: 05/13/21 20:59 Last Admin: 04/15/21 20:03 Dose: 3 mg Documented by: Metoprolol Succinate (Metoprolol Succ 50mg Ext Rel Tab) 50 mg PO [facility] Stop: 05/13/21 11:45 Last Admin: 04/16/21 09:05 Dose: 50 mg Documented by: Metronidazole (Metronidazole 500 Mg Tab) 500 mg PO Q8 [facility]; Protocol Stop: 04/20/21 21:59 Last Admin: 04/16/21 14:31 Dose: 500 mg Documented by: Mirabegron (Mirabegron Er 25 Mg Tab) 50 mg PO [facility] Stop: 05/14/21 08:59 Last Admin: 04/16/21 09:05 Dose: 50 mg Documented by: Mirtazapine (Mirtazapine Tab 15 Mg Tab) 7.5 mg PO [facility] Stop: 05/13/21 20:59 Last Admin: 04/15/21 20:05 Dose: 7.5 mg Documented by: Miscellaneous Information (Vancomycin Consult Active) 1 ea N/A UD PRN PRN Reason: Consult Stop: 05/13/21 10:03 Multivitamins/Minerals (Cerovite Adv Formula Tab) 1 tab PO [facility] Stop: 05/14/21 08:59 Last Admin: 04/16/21 09:05 Dose: 1 tab Documented by: Ondansetron HCl (Ondansetron Inj 2 Mg/Ml 2 Ml Vial) 4 mg IV Q6H PRN PRN Reason: Nausea Stop: 05/13/21 19:17 Polyethylene Glycol (Polyethylene (Miralax) 17 Gm Pack) 17 gm PO DAILY PRN PRN Reason: Constipation Stop: 05/13/21 19:17 Prednisone (Prednisone 5 Mg Tab) 5 mg PO [facility] Stop: 05/14/21 08:59 Last Admin: 04/16/21 09:06 Dose: 5 mg Documented by: Tamsulosin HCl (Tamsulosin Hcl 0.4 Mg Cap) 0.4 mg PO [facility] Stop: 05/13/21 20:59 Last Admin: 04/15/21 20:04 Dose: 0.4 mg Documented by: Vitamin D (Cholecalciferol 1,000 Units 25 Mcg Tab) 2,000 units PO [facility] Stop: 05/14/21 08:59 Last Admin: 04/16/21 09:06 Dose: 2,000 units Documented by:
[2021-04-16] MEDS: MELATONIN 3 MG TAB PO SCH (21:24)
[2021-04-16] MEDS: MIRTAZAPINE TAB 15 MG TAB PO SCH (21:27)
[2021-04-16] MEDS: ATORVASTATIN 40 MG TAB PO SCH (21:27)
[2021-04-16] MEDS: TAMSULOSIN HCL 0.4 MG CAP PO SCH (21:28)
[2021-04-17] MEDS: metroNIDAZOLE 500 MG TAB PO SCH ×3 (06:03→21:27)
[2021-04-17] MEDS: LEVOTHYROXINE SODIUM 75 MCG TABLET PO SCH (06:03)
[2021-04-17] MEDS: VANCOMYCIN HCL 1,250 MG in SODIUM CHLORIDE 0.9% 250 ML IV SCH (06:04)
[2021-04-17 07:10] LABS: Hematocrit (blood only) 40.7 % (42-52); Hemoglobin 12.5 g/dL (14.0-18.0); Mean Corpuscular Hemoglobin 28.5 pg (25-34); Mean Corpuscular Hgb Conc 30.7 g/dL (32-36); Mean Corpuscular Volume 92.9 fL (80-100); Mean Platelet Volume 9.7 fL (7.4-10.4); Platelet Count 181 K/uL (130-400); RDW Coefficient of Variation 15.4 % (11.5-14.5); RDW Standard Deviation 53.1 fL (36.4-46.3); Red Blood Count 4.38 M/uL (4.7-6.1); White Blood Count 7.85 K/uL (4.8-10.8)
[2021-04-17 07:44] LABS: BUN Creatinine Ratio 24.4 (10-20); Calcium 8.5 mg/dl (8.5-10.1); Creatinine Clr Calc Pharmacy 52.4 ml/min; Est GFR (African American) 70.2 ml/min; Est GFR (Non-African American) 60.5 ml/min; Magnesium 2.4 mg/dl (1.8-2.4); Potassium 3.9 mmol/L (3.5-5.1)
[2021-04-17 07:45] LABS: Phosphorus 1.9 mg/dl (2.5-4.9)
[2021-04-17] MEDS: FINASTERIDE 5 MG TAB PO SCH (07:56)
[2021-04-17] MEDS: FERROUS SULFATE 325 MG TAB PO SCH (07:56)
[2021-04-17] MEDS: CLOPIDOGREL BISULFATE 75 MG TAB PO SCH (07:56)
[2021-04-17] MEDS: amLODIPine BESYLATE 5 MG TAB PO SCH (07:56)
[2021-04-17] MEDS: CHOLECALCIFEROL 1,000 UNITS 25 MCG TAB PO SCH (07:56)
[2021-04-17] MEDS: FUROSEMIDE 40 MG TAB PO SCH (07:57)
[2021-04-17] MEDS: GABAPENTIN 300 MG CAP PO SCH ×3 (07:57→21:24)
[2021-04-17] MEDS: guaiFENesin 600 MG TABCR PO SCH ×2 (07:57→21:24)
[2021-04-17] MEDS: MAGNESIUM OXIDE 400 MG TAB PO SCH ×2 (07:57→21:23)
[2021-04-17] MEDS: FLUTICASONE FUROATE 200MCG 14 PUFFS/INHALER INH SCH (07:57)
[2021-04-17] MEDS: CEROVITE ADV FORMULA TAB PO SCH (07:58)
[2021-04-17] MEDS: predniSONE 5 MG TAB PO SCH (07:58)
[2021-04-17] MEDS: MIRABEGRON ER 25 MG TAB PO SCH (07:58)
[2021-04-17] MEDS: METOPROLOL SUCC 50MG EXT REL TAB PO SCH (07:58)
[2021-04-17] MEDS: allopurinoL 300 MG TAB PO SCH (07:58)
[2021-04-17] MEDS: MENTHOL-ZINC OXIDE 360 APPLN/120 GM TUBE EXT SCH ×3 (07:59→22:40)
[2021-04-17] MEDS: CEFEPIME 2,000 MG in SYRINGE 0 ML IV SCH ×2 (08:24→21:25)
--- NOTE | 2021-04-17 08:33 | Hospitalist Progress Note ---
Date of Service April 17, 2021 Assessment & Plan (1) Hypoxia: (2) Pneumonia of both lower lobes: (3) COPD (chronic obstructive pulmonary disease): (4) Left shoulder pain: (5) Hypertension: (6) Elevated troponin: (7) H/O atrial flutter: (8) Chronic diastolic heart failure: (9) Aortic stenosis: (10) BPH with obstruction/lower urinary tract symptoms: Plan: This is an 89yo M presenting from [facility] with PMH of COPD, CKD, chronic diastolic heart failure, HTN, h/o atrial flutter, PVD and other medical problems listed below who presented with hypoxia. Recently admitted from 03/10-03/24 for AMS in setting of multifocal pneumonia with positive MRSA screen Received IV Vanco and Zosyn which was deescalated to Augmentin and doxycycline. Patient completed 10-day course of antibiotics on 03/21 Underwent video swallow, which showed no significant laryngeal penetration or aspiration Successfully weaned off of daytime oxygen, discharged back to [facility] Hypoxia Acute metabolic encephalopathy PNA of both lower lobes Mrsa swab positive (poss. mrsa pna vs. 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 Pro-bnp wnl. Procal negative. Worsening BLE edema in setting of decreased lasix dose, ? side effect to increased amlodipine dose Continue empiric cefepime and vanc in setting of possible HAP - added Flagyl for aspiration coverage Given 40mg IV Lasix in ED. Monitor I&Os Aspiration precautions, pureed diet per [facility] Added guaifenesin, encourage flutter valve, and incentive spirometry Sputum culture obtained - preliminary shows no organisms, final results pending Per discussion with daughter and [facility] RN, plan to pursue palliative care consult to discuss goals given repeat admissions, multiple comorbid conditions Likely to need 2 step prior to discharge Troponin elevation Trop elevated at 0.047,has been elevated on previous admissions since 2019 ECG without acute changes No chest pain COPD (chronic obstructive pulmonary disease) Chronic prednisone 5 mg daily at baseline Continue home inhalers, nebs No signs of acute exacerbation Chronic diastolic heart failure Echo 09/09/20 showing EF of 60 to 64%, LV wall thickness moderately increased, concentric, s/p TAVR with CoreValve prosthesis valve, mild perivalvular aortic valve prosthesis regurg, mild tricuspid regurg, mild pulm HTN Lasix decreased from 60mg to 20mg during previous admission in setting of MAXI Increasing dose back to 40mg - monitor volume status H/O atrial flutter Not anticoagulated due to fall risk, rate controlled on metoprolol Hypertension Amlodipine increased during previous admission, now with increased BLE edema - went back to previous dose of 5mg daily Continue metoprolol succinate to 50 mg daily Peripheral vascular disease Continue statin and Plavix Left shoulder pain No fractures, chronic rotator cuff injury on imaging last month S/p Steroid injection on 03/[address] Cast Further Ortho recommendations: Transition to outpatient PT with follow-up scheduled with Dr Cast in 3-6 weeks as outpatient DVT Ppx: SQ heparin Code status: DNR/DNI PCP: Dr. Albarran Dispo: Admitted to med/surg Admission and Anticipated Discharge Date Admission Date: April 13, 2021 Subjective Patient seen in follow-up of AMS, hypoxia, concern for recurrent pneumonia Pt recently admitted to the hospital, and treated for pneumonia Currently patient says he is feeling better, he is able to answer simple questions appropriately. Denies any chest pain, increased shortness of breath, fevers chills, increased cough. Sputum cultx obtained - pending. Family updated at the bedside 2 days ago. Review of Systems Review of Systems: All systems reviewed & are unremarkable except as noted in Subjective Physical Exam Physical Exam: General Appearance:WD/WN, elderly M in NAD,chronically ill appearing Head: normocephalic, atraumatic Eyes:normal inspection, PERRL, EOMI, conjunctivae normal, anicteric sclerae ENT: external ear and nose normal, oropharynx normal Neck: normal visual inspection Respiratory:+ rhonchi, somewhat diminished, no wheezing, poor air movement. No accessory muscle use Cardiovascular: regular rate, rhythm, faint systolic murmur, normal peripheral pulses, trace + BLE edema. Vessels: no JVD Chest: normal inspection of chest Abdomen/GI: normal bowel sounds, soft, nontender Extremities/Musculoskeletal:extremities motor strength 5/5. S/p L toe am putation Neurologic: Alert oriented, answering questions appropriately, EOMI, no face palsy, no dysarthria, moves all extremities Psychiatric: euthymic affect Skin: no rashes, normal color, warm/dry Results & Data Results & Data ([facility]) Vital Signs (Past 12 Hours) Vital Signs Temp Pulse Pulse Resp BP BP Pulse Ox 04/17/21 07:50 36.7 C 76 20 154/78 H 97 04/17/21 07:35 79 04/17/21 04:29 36.7 C 86 20 162/84 H 94 04/17/21 00:00 04/16/21 23:38 37 C 83 18 143/78 H 94 04/16/21 22:21 87 04/16/21 21:20 37.2 C 93 H 20 151/81 H 94 Pulse Ox 04/17/21 07:50 04/17/21 07:35 04/17/21 04:29 04/17/21 00:00 94 04/16/21 23:38 04/16/21 22:21 04/16/21 21:20 Laboratory Results 04/17/21 04/17/21 04/17/21 Range/Units 05:34 05:34 05:34 WBC 7.85 (4.8-10.8) K/uL RBC 4.38 L (4.7-6.1) M/uL Hgb 12.5 L (14.0-18.0) g/dL Hct 40.7 L (42-52) % MCV 92.9 (80-100) fL MCH 28.5 (25-34) pg MCHC 30.7 L (32-36) g/dL RDW Std Deviation 53.1 H (36.4-46.3) fL RDW Coeff of Morris 15.4 H (11.5-14.5) % Plt Count 181 (130-400) K/uL MPV 9.7 (7.4-10.4) fL Sodium 141 (136-145) mmol/L Potassium 3.9 (3.5-5.1) mmol/L Chloride 105 (98-107) mmol/L Carbon Dioxide 32 (21-32) mmol/L Anion Gap 4.0 (3-11) BUN 26 H (7-18) mg/dl Creatinine 1.08 (0.6-1.4) mg/dl Est Cr Clr Drug Dosing 52.4 ml/min Est GFR ( Amer) 70.2 ml/min Est GFR (Non-Af Amer) 60.5 ml/min BUN/Creatinine Ratio 24.4 H (10-20) Glucose 104 H (70-99) mg/dl Calcium 8.5 (8.5-10.1) mg/dl Phosphorus 1.9 L (2.5-4.9) mg/dl Magnesium 2.4 (1.8-2.4) mg/dl Vancomycin Trough 15.1 (See Comment) mcg/ml Medications Administered Current Inpatient Medications Acetaminophen (Acetaminophen 325 Mg Tab) 650 mg PO Q4H PRN PRN Reason: Pain or Fever Stop: 05/13/21 19:17 Last Admin: 04/16/21 21:52 Dose: 650 mg Documented by: Albuterol (Albut/Ipratrop 3mg/0.5mg Neb 3 Ml Vial) 3 ml INH Q4R PRN; Protocol PRN Reason: Cough Stop: 05/13/21 19:17 Albuterol (Albuterol Hfa 8 Gm Inhaler) 1 puffs INH BIDR PRN PRN Reason: SOB/WHEEZING Stop: 05/13/21 19:36 Allopurinol (Allopurinol 300 Mg Tab) 300 mg PO [facility] Stop: 05/14/21 08:59 Last Admin: 04/17/21 07:58 Dose: 300 mg Documented by: Amlodipine Besylate (Amlodipine Besylate 5 Mg Tab) 5 mg PO QAM [facility] Stop: 05/14/21 08:59 Last Admin: 04/17/21 07:56 Dose: 5 mg Documented by: Atorvastatin Calcium (Atorvastatin 40 Mg Tab) 40 mg PO [facility] Stop: 05/13/21 20:59 Last Admin: 04/16/21 21:27 Dose: 40 mg Documented by: Calamine/Phenol (Menthol-Zinc Oxide 360 Appln/120 Gm Tube) 1 appln EXT TID [facility] Stop: 05/13/21 19:17 Last Admin: 04/17/21 07:59 Dose: 1 appln Documented by: Clopidogrel Bisulfate (Clopidogrel Bisulfate 75 Mg Tab) 75 mg PO QAM [facility] Stop: 05/14/21 08:59 Last Admin: 04/17/21 07:56 Dose: 75 mg Documented by: Docusate Sodium (Docusate Sodium 100 Mg Cap) 200 mg PO Q12 PRN PRN Reason: Constipation Ferrous Sulfate (Ferrous Sulfate 325 Mg Tab) 325 mg PO QAM [facility] Stop: 05/14/21 08:59 Last Admin: 04/17/21 07:56 Dose: 325 mg Documented by: Finasteride (Finasteride 5 Mg Tab) 5 mg PO QAM [facility] Stop: 05/14/21 08:59 Last Admin: 04/17/21 07:56 Dose: 5 mg Documented by: Fluticasone Furoate (Fluticasone Furoate 200mcg 14 Puffs/Inhaler) 1 puffs INH DAILY [facility]; Protocol Stop: 05/14/21 08:59 Last Admin: 04/17/21 07:57 Dose: 1 puffs Documented by: Furosemide (Furosemide 40 Mg Tab) 40 mg PO QAM [facility] Stop: 05/14/21 08:59 Last Admin: 04/17/21 07:57 Dose: 40 mg Documented by: Gabapentin (Gabapentin 300 Mg Cap) 300 mg PO TID [facility] Stop: 05/13/21 19:17 Last Admin: 04/17/21 07:57 Dose: 300 mg Documented by: Guaifenesin (Guaifenesin 600 Mg Tabcr) 600 mg PO Q12 [facility] Stop: 05/14/21 17:29 Last Admin: 04/17/21 07:57 Dose: 600 mg Documented by: Vancomycin HCl 1,250 mg/ (Sodium Chloride) 275 mls @ 200 mls/hr IV Q24H [facility] Stop: 04/21/21 05:59 Last Infusion: 04/17/21 07:36 Dose: Infused Documented by: Cefepime HCl 2,000 mg/ Syringe 20 mls @ 5 mls/min IV Q12 [facility]; Protocol Stop: 04/20/21 20:59 Last Admin: 04/17/21 08:24 Dose: 5 mls/min Documented by: Ipratropium [place] (Ipratropium [place] Hfa Inhaler) 1 puffs INH BIDR PRN PRN Reason: SOB/WHEEZING Stop: 05/13/21 19:36 Levothyroxine Sodium (Levothyroxine Sodium 75 Mcg Tablet) 75 mcg PO DAILYBB [facility] Stop: 05/14/21 06:29 Last Admin: 04/17/21 06:03 Dose: 75 mcg Documented by: Loperamide HCl (Loperamide Hcl 2 Mg Cap) 2 mg PO Q4H PRN PRN Reason: Diarrhea Stop: 05/13/21 19:17 Magnesium Oxide (Magnesium Oxide 400 Mg Tab) 400 mg PO BID [facility] Stop: 05/13/21 20:59 Last Admin: 04/17/21 07:57 Dose: 400 mg Documented by: Melatonin (Melatonin 3 Mg Tab) 3 mg PO [facility] Stop: 05/13/21 20:59 Last Admin: 04/16/21 21:24 Dose: 3 mg Documented by: Metoprolol Succinate (Metoprolol Succ 50mg Ext Rel Tab) 50 mg PO [facility] Stop: 05/13/21 11:45 Last Admin: 04/17/21 07:58 Dose: 50 mg Documented by: Metronidazole (Metronidazole 500 Mg Tab) 500 mg PO Q8 [facility]; Protocol Stop: 04/20/21 21:59 Last Admin: 04/17/21 06:03 Dose: 500 mg Documented by: Mirabegron (Mirabegron Er 25 Mg Tab) 50 mg PO [facility] Stop: 05/14/21 08:59 Last Admin: 04/17/21 07:58 Dose: 50 mg Documented by: Mirtazapine (Mirtazapine Tab 15 Mg Tab) 7.5 mg PO [facility] Stop: 05/13/21 20:59 Last Admin: 04/16/21 21:27 Dose: 7.5 mg Documented by: Miscellaneous Information (Vancomycin Consult Active) 1 ea N/A UD PRN PRN Reason: Consult Stop: 05/13/21 10:03 Multivitamins/Minerals (Cerovite Adv Formula Tab) 1 tab PO [facility] Stop: 05/14/21 08:59 Last Admin: 04/17/21 07:58 Dose: 1 tab Documented by: Ondansetron HCl (Ondansetron Inj 2 Mg/Ml 2 Ml Vial) 4 mg IV Q6H PRN PRN Reason: Nausea Stop: 05/13/21 19:17 Polyethylene Glycol (Polyethylene (Miralax) 17 Gm Pack) 17 gm PO DAILY PRN PRN Reason: Constipation Stop: 05/13/21 19:17 Prednisone (Prednisone 5 Mg Tab) 5 mg PO [facility] Stop: 05/14/21 08:59 Last Admin: 04/17/21 07:58 Dose: 5 mg Documented by: Tamsulosin HCl (Tamsulosin Hcl 0.4 Mg Cap) 0.4 mg PO [facility] Stop: 05/13/21 20:59 Last Admin: 04/16/21 21:28 Dose: 0.4 mg Documented by: Vitamin D (Cholecalciferol 1,000 Units 25 Mcg Tab) 2,000 units PO [facility] Stop: 05/14/21 08:59 Last Admin: 04/17/21 07:56 Dose: 2,000 units Documented by:
--- NOTE | 2021-04-17 09:57 | Pharmacy Report ---
Pharmacy Vanc AUC Short Note - Date of Service April 17, 2021 - Assessment & Plan Assessment 89 year old M receiving Vancomycin, Cefepime, and Metronidazole for treatment of possible HAP. * Day #5 of antimicrobial therapy. * Afebrile. No Leukocytosis. Renal fxn stable. Blood cx negative. Sputum cx still preliminary. MRSA nasal swab positive. * Spoke with attending and likely to transition to PO abx tomorrow when Sputum cx finalized. Plan Vancomycin * AUC/AJAY is the preferred PK/PD target for vancomycin * AUC guided dosing is effective and associated with decreased risk of nephrotoxicity compared to traditional trough targets * Trough level of 15.1 mcg/mL is predicted to achieve target AUC/AJAY of 400-600 mg/L.hr and may be associated with a 9% risk of nephrotoxicity * Continue dose of 1250 mg IV every 24 hours * No further troughs will be ordered Pharmacy will continue to follow and will adjust dose/frequency as necessary. Thank you.
[2021-04-17] MEDS: TAMSULOSIN HCL 0.4 MG CAP PO SCH (21:23)
[2021-04-17] MEDS: MIRTAZAPINE TAB 15 MG TAB PO SCH (21:23)
[2021-04-17] MEDS: ATORVASTATIN 40 MG TAB PO SCH (21:25)
[2021-04-17] MEDS: MELATONIN 3 MG TAB PO SCH (21:36)
[2021-04-18] MEDS: VANCOMYCIN HCL 1,250 MG in SODIUM CHLORIDE 0.9% 250 ML IV SCH (06:05)
[2021-04-18] MEDS: metroNIDAZOLE 500 MG TAB PO SCH ×3 (06:07→22:25)
[2021-04-18] MEDS: LEVOTHYROXINE SODIUM 75 MCG TABLET PO SCH (06:09)
[2021-04-18] MEDS ORDERED: AMOXICILLIN/CLAVULANATE 875 MG TAB PO SCH (08:00)
[2021-04-18] MEDS: MAGNESIUM OXIDE 400 MG TAB PO SCH ×2 (08:12→22:26)
[2021-04-18] MEDS: FUROSEMIDE 40 MG TAB PO SCH (08:12)
[2021-04-18] MEDS: GABAPENTIN 300 MG CAP PO SCH ×3 (08:12→22:21)
[2021-04-18] MEDS: CLOPIDOGREL BISULFATE 75 MG TAB PO SCH (08:12)
[2021-04-18] MEDS: guaiFENesin 600 MG TABCR PO SCH ×2 (08:12→22:25)
[2021-04-18] MEDS: predniSONE 5 MG TAB PO SCH (08:13)
[2021-04-18] MEDS: amLODIPine BESYLATE 5 MG TAB PO SCH (08:13)
[2021-04-18] MEDS: METOPROLOL SUCC 50MG EXT REL TAB PO SCH (08:13)
[2021-04-18] MEDS: FERROUS SULFATE 325 MG TAB PO SCH (08:13)
[2021-04-18] MEDS: CEROVITE ADV FORMULA TAB PO SCH (08:13)
[2021-04-18] MEDS: FINASTERIDE 5 MG TAB PO SCH (08:13)
[2021-04-18] MEDS: MIRABEGRON ER 25 MG TAB PO SCH (08:14)
[2021-04-18] MEDS: allopurinoL 300 MG TAB PO SCH (08:14)
[2021-04-18] MEDS: CHOLECALCIFEROL 1,000 UNITS 25 MCG TAB PO SCH (08:14)
[2021-04-18] MEDS: MENTHOL-ZINC OXIDE 360 APPLN/120 GM TUBE EXT SCH ×3 (08:15→22:29)
[2021-04-18] MEDS: FLUTICASONE FUROATE 200MCG 14 PUFFS/INHALER INH SCH (08:15)
[2021-04-18] MEDS: ADVANCED PROBIOTIC 1250 MG CAPSULE PO SCH (08:15)
[2021-04-18 08:18] LABS: Hematocrit (blood only) 40.1 % (42-52); Hemoglobin 12.4 g/dL (14.0-18.0); Mean Corpuscular Hemoglobin 28.4 pg (25-34); Mean Corpuscular Hgb Conc 30.9 g/dL (32-36); Mean Platelet Volume 9.3 fL (7.4-10.4); Platelet Count 160 K/uL (130-400); RDW Coefficient of Variation 15.3 % (11.5-14.5); RDW Standard Deviation 51.8 fL (36.4-46.3); Red Blood Count 4.36 M/uL (4.7-6.1); White Blood Count 6.83 K/uL (4.8-10.8)
[2021-04-18 08:45] LABS: BUN Creatinine Ratio 20.3 (10-20); Calcium 8.4 mg/dl (8.5-10.1); Creatinine Clr Calc Pharmacy 49.2 ml/min; Est GFR (Non-African American) 56.1 ml/min; Magnesium 2.3 mg/dl (1.8-2.4); Phosphorus 2.4 mg/dl (2.5-4.9)
[2021-04-18] MEDS: CEFEPIME 2,000 MG in SYRINGE 0 ML IV SCH ×2 (09:16→22:24)
[2021-04-18] MEDS ORDERED: DOXYCYCLINE HYCLATE 100 MG CAP PO SCH (10:00)
--- NOTE | 2021-04-18 16:28 | Hospitalist Progress Note ---
Date of Service April 18, 2021 Assessment & Plan (1) Pneumonia of both lower lobes: Plan: Recently admitted from 03/10-03/24 for AMS in setting of multifocal pneumonia with positive MRSA screen Received IV Vanco and Zosyn which was deescalated to Augmentin and doxycycline. Patient completed 10-day course of antibiotics on 03/21 Underwent video swallow, which showed no significant laryngeal penetration or aspiration Successfully weaned off of daytime oxygen, discharged back to [facility] Presented again this admission with hypoxia and disorientation. 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 He had no leukocytosis and a normal procalcitonin. He was given vancomycin cefepime and Flagyl for coverage of possible aspiration pneumonia. He was given 1 dose of Lasix for lower extremity swelling which also may have been related to amlodipine use. He underwent a video swallow study revealing no significant laryngeal penetration or aspiration. He continues to do well oxygenating 96% on 2 L nasal cannula which he typically uses consistently at night. In the setting of pneumonia and deconditioning with multiple hospitalizations it would not be unusual him to use more daytime oxygen while he is recovering. No significant respiratory symptoms at this time. Continue nafcillin for MSSA found in sputum culture. (2) Hypoxia: Plan: Secondary to pneumonia and improved (3) COPD (chronic obstructive pulmonary disease): Plan: Chronic, appears stable, no wheezing on exam. Continue home inhalers, and continue chronic daily prednisone. (4) Left shoulder pain: Plan: Patient has not complained about this, follows with orthopedics as outpatient. He is status post steroid injection on 03/[address] Cast. Follow-up recommended in 3 to 6 weeks. (5) Hypertension: Plan: Around goal, continue current medical therapy. Amlodipine increased during previous admission, now with increased BLE edema - went back to previous dose of 5mg daily Continue metoprolol succinate to 50 mg daily, Lasix 40mg daily (6) Elevated troponin: Plan: Chronically elevated, CAD appears stable with no chest pain or other symptoms consistent with ACS. (7) H/O atrial flutter: Plan: Not anticoagulated due to fall risk, rate controlled on metoprolol (8) Chronic diastolic heart failure: Plan: Echo 09/09/20 showing EF of 60 to 64%, LV wall thickness moderately increased, concentric, s/p TAVR with CoreValve prosthesis valve, mild perivalvular aortic valve prosthesis regurg, mild tricuspid regurg, mild pulm HTN Lasix decreased from 60mg to 20mg during previous admission in setting of MAXI He continues on slightly increased dose of 40mg daily and doing well. (9) Aortic stenosis: Plan: s/p TAVR with bioprosthetic valve (10) PVD (peripheral vascular disease): Plan: cont ASA/Plavix per home regimen. (11) DVT prophylaxis: Plan: SCDs DNR Dipso-back to [facility] when bed available. DO [facility] Hospitalist Admission and Anticipated Discharge Date Admission Date: April 13, 2021 Subjective 89 yo M from [facility] presents with acute confusion 2/2 pneumonia that is recurrent. Has a h/o COPD and uses oxygen supplementation at night and on occasion during the day. breathing is ok, he can't recall if he is "bettter" more interested in asking me personal questions states that on [place] morning "I wasn't confused I just didn't know where the hell I was" denies pain, has been afebrile Tolerating PO Review of Systems Review of Systems: All systems were reviewed and negative except as indicated above. Physical Exam Physical Exam: CONSTITUTIONAL: WNWD, vitals as above, NAD EYES: normal conjunctivae, no scleral icterus ENT: external ear and nose normal, MMM NECK: trachea midline RESPIRATORY: clear to auscultation bilaterally with very minimal breath sounds throughout, very diminished, no crackles, rales or wheezes, normal respiratory effort CARDIOVASCULAR: regular rate and rhythm, S1 and 2 heard without murmurs, gallops or rubs, no JVD, no peripheral edema GASTROINTESTINAL: soft, nontender, ND, no guarding MUSCULOSKELETAL: strength 5/5 throughout, head is normocephalic and atraumatic SKIN: warm and dry, small scratch wound without surrounding cellulitis on RLE, covered wtih Optifoam. NEUROLOGIC: CN 2-12 grossly intact, no sensory deficit, normal cognition, normal speech, no tremor PSYCHIATRIC: alert cooperative and oriented to person, place and time but this took multiple questions to get correct. Memory declined. Repeats his stories. Results & Data Results & Data ([facility]) Vital Signs (Past 12 Hours) Vital Signs Temp Pulse Resp BP Pulse Ox 04/18/21 15:08 36.6 C 79 20 148/77 H 98 04/18/21 11:01 36.5 C 75 20 117/69 96 04/18/21 07:54 36.6 C 83 20 144/87 H 97 04/18/21 06:14 36.8 C 89 16 161/84 H 90 Laboratory Results Short CBC 04/18/21 Range/Units 07:51 WBC 6.83 (4.8-10.8) K/uL Hgb 12.4 L (14.0-18.0) g/dL Hct 40.1 L (42-52) % Plt Count 160 (130-400) K/uL BMP 04/18/21 07:51 Sodium 142 Potassium 4.0 Chloride 106 Carbon Dioxide 32 BUN 23 H Creatinine 1.15 Glucose 109 H Calcium 8.4 L Medications Administered Current Inpatient Medications Acetaminophen (Acetaminophen 325 Mg Tab) 650 mg PO Q4H PRN PRN Reason: Pain or Fever Stop: 05/13/21 19:17 Last Admin: 04/16/21 21:52 Dose: 650 mg Documented by: Albuterol (Albut/Ipratrop 3mg/0.5mg Neb 3 Ml Vial) 3 ml INH Q4R PRN; Protocol PRN Reason: Cough Stop: 05/13/21 19:17 Albuterol (Albuterol Hfa 8 Gm Inhaler) 1 puffs INH BIDR PRN PRN Reason: SOB/WHEEZING Stop: 05/13/21 19:36 Allopurinol (Allopurinol 300 Mg Tab) 300 mg PO QAM [facility] Stop: 05/14/21 08:59 Last Admin: 04/18/21 08:14 Dose: 300 mg Documented by: Amlodipine Besylate (Amlodipine Besylate 5 Mg Tab) 5 mg PO QAM [facility] Stop: 05/14/21 08:59 Last Admin: 04/18/21 08:13 Dose: 5 mg Documented by: Atorvastatin Calcium (Atorvastatin 40 Mg Tab) 40 mg PO HS [facility] Stop: 05/13/21 20:59 Last Admin: 04/17/21 21:25 Dose: 40 mg Documented by: Calamine/Phenol (Menthol-Zinc Oxide 360 Appln/120 Gm Tube) 1 appln EXT TID [facility] Stop: 05/13/21 19:17 Last Admin: 12/28/21 13:42 Dose: 1 appln Documented by: Clopidogrel Bisulfate (Clopidogrel Bisulfate 75 Mg Tab) 75 mg PO QAM [facility] Stop: 05/14/21 08:59 Last Admin: 04/18/21 08:12 Dose: 75 mg Documented by: Docusate Sodium (Docusate Sodium 100 Mg Cap) 200 mg PO Q12 PRN PRN Reason: Constipation Ferrous Sulfate (Ferrous Sulfate 325 Mg Tab) 325 mg PO [facility] Stop: 05/14/21 08:59 Last Admin: 04/18/21 08:13 Dose: 325 mg Documented by: Finasteride (Finasteride 5 Mg Tab) [facility] Stop: 05/14/21 08:59 Last Admin: 04/18/21 08:13 Dose: 5 mg Documented by: Fluticasone Furoate (Fluticasone Furoate 200mcg 14 Puffs/Inhaler) 1 puffs INH DAILY [facility]; Protocol Stop: 05/14/21 08:59 Last Admin: 04/18/21 08:15 Dose: 1 puffs Documented by: Furosemide (Furosemide 40 Mg Tab) 40 mg PO QAM [facility] Stop: 05/14/21 08:59 Last Admin: 04/18/21 08:12 Dose: 40 mg Documented by: Gabapentin (Gabapentin 300 Mg Cap) 300 mg PO TID [facility] Stop: 05/13/21 19:17 Last Admin: 04/18/21 13:42 Dose: 300 mg Documented by: Guaifenesin (Guaifenesin 600 Mg Tabcr) 600 mg PO Q12 [facility] Stop: 05/14/21 17:29 Last Admin: 04/18/21 08:12 Dose: 600 mg Documented by: Vancomycin HCl 1,250 mg/ (Sodium Chloride) 275 mls @ 200 mls/hr IV Q24H [facility] Stop: 04/21/21 05:59 Last Infusion: 04/18/21 08:34 Dose: Infused Documented by: Cefepime HCl 2,000 mg/ Syringe 20 mls @ 5 mls/min IV Q12 [facility]; Protocol Stop: 04/20/21 20:59 Last Admin: 04/18/21 09:16 Dose: 5 mls/min Documented by: Ipratropium [place] (Ipratropium [place] Hfa Inhaler) 1 puffs INH BIDR PRN PRN Reason: SOB/WHEEZING Stop: 05/13/21 19:36 Lactobacillus Acidoph/Casei/Rhamnos (Advanced Probiotic 1250 Mg Capsule) 2 cap PO DAILY [facility] Stop: 05/18/21 08:59 Last Admin: 04/18/21 08:15 Dose: 2 cap Documented by: Levothyroxine Sodium (Levothyroxine Sodium 75 Mcg Tablet) 75 mcg PO DAILYBB [facility] Stop: 05/14/21 06:29 Last Admin: 04/18/21 06:09 Dose: 75 mcg Documented by: Loperamide HCl (Loperamide Hcl 2 Mg Cap) 2 mg PO Q4H PRN PRN Reason: Diarrhea Stop: 05/13/21 19:17 Magnesium Oxide (Magnesium Oxide 400 Mg Tab) 400 mg PO BID [facility] Stop: 05/13/21 20:59 Last Admin: 04/18/21 08:12 Dose: 400 mg Documented by: Melatonin (Melatonin 3 Mg Tab) 3 mg PO [facility] Stop: 05/13/21 20:59 Last Admin: 04/17/21 21:36 Dose: 3 mg Documented by: Metoprolol Succinate (Metoprolol Succ 50mg Ext Rel Tab) 50 mg [facility] [place] Stop: 05/13/21 11:45 Last Admin: 04/18/21 08:13 Dose: 50 mg Documented by: Metronidazole (Metronidazole 500 Mg Tab) 500 mg PO Q8 [facility]; Protocol Stop: 04/20/21 21:59 Last Admin: 04/18/21 13:41 Dose: 500 mg Documented by: Mirabegron (Mirabegron Er 25 Mg Tab) 50 mg PO [facility] Stop: 05/14/21 08:59 Last Admin: 04/18/21 08:14 Dose: 50 mg Documented by: Mirtazapine (Mirtazapine Tab 15 Mg Tab) 7.5 mg PO [facility] Stop: 05/13/21 20:59 Last Admin: 04/17/21 21:23 Dose: 7.5 mg Documented by: Miscellaneous Information (Vancomycin Consult Active) 1 ea N/A UD PRN PRN Reason: Consult Stop: 05/13/21 10:03 Multivitamins/Minerals (Cerovite Adv Formula Tab) 1 tab [facility] [place] Stop: 05/14/21 08:59 Last Admin: 04/18/21 08:13 Dose: 1 tab Documented by: Ondansetron HCl (Ondansetron Inj 2 Mg/Ml 2 Ml Vial) 4 mg IV Q6H PRN PRN Reason: Nausea Stop: 05/13/21 19:17 Polyethylene Glycol (Polyethylene (Miralax) 17 Gm Pack) 17 gm PO DAILY PRN PRN Reason: Constipation Stop: 05/13/21 19:17 Prednisone (Prednisone 5 Mg Tab) 5 mg PO [facility] Stop: 05/14/21 08:59 Last Admin: 04/18/21 08:13 Dose: 5 mg Documented by: Tamsulosin HCl (Tamsulosin Hcl 0.4 Mg Cap) 0.4 mg PO [facility] Stop: 05/13/21 20:59 Last Admin: 04/17/21 21:23 Dose: 0.4 mg Documented by: Vitamin D (Cholecalciferol 1,000 Units 25 Mcg Tab) 2,000 units PO [facility] Stop: 05/14/21 08:59 Last Admin: 04/18/21 08:14 Dose: 2,000 units Documented by:
[2021-04-18] MEDS: ATORVASTATIN 40 MG TAB PO SCH (22:26)
[2021-04-18] MEDS: MIRTAZAPINE TAB 15 MG TAB PO SCH (22:28)
[2021-04-18] MEDS: TAMSULOSIN HCL 0.4 MG CAP PO SCH (22:28)
[2021-04-18] MEDS: MELATONIN 3 MG TAB PO SCH (22:32)
[2021-04-19] MEDS: metroNIDAZOLE 500 MG TAB PO SCH ×2 (05:09→14:52)
[2021-04-19] MEDS: LEVOTHYROXINE SODIUM 75 MCG TABLET PO SCH (05:12)
[2021-04-19 07:50] LABS: BUN Creatinine Ratio 20.5 (10-20); Calcium 8.4 mg/dl (8.5-10.1); Creatinine Clr Calc Pharmacy 49.6 ml/min; Est GFR (African American) 65.7 ml/min; Est GFR (Non-African American) 56.7 ml/min; Potassium 3.6 mmol/L (3.5-5.1)
[2021-04-19] MEDS: CEFEPIME 2,000 MG in SYRINGE 0 ML IV SCH (09:32)
[2021-04-19] MEDS: FLUTICASONE FUROATE 200MCG 14 PUFFS/INHALER INH SCH (09:32)
[2021-04-19] MEDS: ADVANCED PROBIOTIC 1250 MG CAPSULE PO SCH (09:33)
[2021-04-19] MEDS: FUROSEMIDE 40 MG TAB PO SCH (09:33)
[2021-04-19] MEDS: GABAPENTIN 300 MG CAP PO SCH ×3 (09:33→22:18)
[2021-04-19] MEDS: METOPROLOL SUCC 50MG EXT REL TAB PO SCH (09:33)
[2021-04-19] MEDS: amLODIPine BESYLATE 5 MG TAB PO SCH (09:33)
[2021-04-19] MEDS: CLOPIDOGREL BISULFATE 75 MG TAB PO SCH (09:34)
[2021-04-19] MEDS: CEROVITE ADV FORMULA TAB PO SCH (09:34)
[2021-04-19] MEDS: FINASTERIDE 5 MG TAB PO SCH (09:34)
[2021-04-19] MEDS: CHOLECALCIFEROL 1,000 UNITS 25 MCG TAB PO SCH (09:34)
[2021-04-19] MEDS: allopurinoL 300 MG TAB PO SCH (09:34)
[2021-04-19] MEDS: predniSONE 5 MG TAB PO SCH (09:34)
[2021-04-19] MEDS: guaiFENesin 600 MG TABCR PO SCH (09:35)
[2021-04-19] MEDS: MAGNESIUM OXIDE 400 MG TAB PO SCH ×2 (09:35→22:19)
[2021-04-19] MEDS: MENTHOL-ZINC OXIDE 360 APPLN/120 GM TUBE EXT SCH ×3 (09:35→22:21)
[2021-04-19] MEDS: MIRABEGRON ER 25 MG TAB PO SCH (10:13)
[2021-04-19] MEDS: NAFCILLIN SODIUM 2,000 MG in DEXTROSE 5% 100 ML IV SCH ×4 (12:23→22:21)
--- NOTE | 2021-04-19 20:01 | Hospitalist Progress Note ---
Date of Service April 19, 2021 Assessment & Plan (1) Pneumonia of both lower lobes: Plan: Recently admitted from 03/10-03/24 for AMS in setting of multifocal pneumonia with positive MRSA screen Received IV Vanco and Zosyn which was deescalated to Augmentin and doxycycline. Patient completed 10-day course of antibiotics on 03/21 Underwent video swallow, which showed no significant laryngeal penetration or aspiration Successfully weaned off of daytime oxygen, discharged back to [facility] Presented again this admission with hypoxia and disorientation. 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 He had no leukocytosis and a normal procalcitonin. He was given vancomycin cefepime and Flagyl for coverage of possible aspiration pneumonia. He was given 1 dose of Lasix for lower extremity swelling which also may have been related to amlodipine use. He underwent a video swallow study revealing no significant laryngeal penetration or aspiration. He continues to do well oxygenating 96% on 2 L nasal cannula which he typically uses consistently at night. In the setting of pneumonia and deconditioning with multiple hospitalizations it would not be unusual him to use more daytime oxygen while he is recovering. No significant respiratory symptoms at this time. Continue nafcillin for MSSA found in sputum culture. (2) Hypoxia: Plan: Secondary to pneumonia and improved (3) COPD (chronic obstructive pulmonary disease): Plan: Chronic, appears stable, no wheezing on exam. Continue home inhalers, and continue chronic daily prednisone. (4) Left shoulder pain: Plan: Patient has not complained about this, follows with orthopedics as outpatient. He is status post steroid injection on 03/[address] Cast. Follow-up recommended in 3 to 6 weeks. (5) Hypertension: Plan: Around goal, continue current medical therapy. Amlodipine increased during previous admission, now with increased BLE edema - went back to previous dose of 5mg daily Continue metoprolol succinate to 50 mg daily, Lasix 40mg daily (6) Elevated troponin: Plan: Chronically elevated, CAD appears stable with no chest pain or other symptoms consistent with ACS. (7) H/O atrial flutter: Plan: Not anticoagulated due to fall risk, rate controlled on metoprolol (8) Chronic diastolic heart failure: Plan: Echo 09/09/20 showing EF of 60 to 64%, LV wall thickness moderately increased, concentric, s/p TAVR with CoreValve prosthesis valve, mild perivalvular aortic valve prosthesis regurg, mild tricuspid regurg, mild pulm HTN Lasix decreased from 60mg to 20mg during previous admission in setting of MAXI He continues on slightly increased dose of 40mg daily and doing well. (9) Aortic stenosis: Plan: s/p TAVR with bioprosthetic valve (10) PVD (peripheral vascular disease): Plan: cont ASA/Plavix per home regimen. (11) DVT prophylaxis: Plan: SCDs/Lovenox DNR Dipso-back to [facility] when bed available. Jie Dick DO [place] Hospitalist Admission and Anticipated Discharge Date Admission Date: April 13, 2021 Subjective 89 yo M from [facility] presents with acute confusion 2/2 pneumonia that is recurrent. Has a h/o COPD and uses oxygen supplementation at night and on occasion during the day. patient is more interested in talking in conversation rather than about his health he doesn't remember where he is or why he is here he is able to follow instructions denies any pain or issues with breathing Review of Systems Review of Systems: All systems were reviewed and negative except as indicated in HPI above. Physical Exam Physical Exam: CONSTITUTIONAL: WNWD, vitals as above, generally well- appearing EYES: normal conjunctivae, no scleral icterus ENT: external ear and nose normal,MMM NECK: trachea midline RESPIRATORY: clear to auscultation bilaterally, no crackles, rales or wheezes, normal respiratory effort, diminished breath sounds throughout. CARDIOVASCULAR: regular rate and rhythm, S1 and 2 heard without murmurs, gallops or rubs, no JVD, no peripheral edema GASTROINTESTINAL: soft, nontender, ND, no guarding MUSCULOSKELETAL: strength 5/5 throughout, head is normocephalic and atraumatic SKIN: warm and dry NEUROLOGIC: CN 2-12 grossly intact, no sensory deficit, normal cognition, normal speech, no tremor, no gross focal deficit. PSYCHIATRIC: alert cooperative and oriented to person, unsure of place or time. Results & Data Results & Data ([facility]) Vital Signs (Past 12 Hours) Vital Signs Temp Pulse Resp BP Pulse Ox 04/19/21 15:57 36.3 C L 85 18 152/75 H 94 04/19/21 11:36 36.7 C 83 18 134/71 95 Laboratory Results [facility] 04/19/21 06:44 Sodium 138 Potassium 3.6 Chloride 103 Carbon Dioxide 31 BUN 23 H Creatinine 1.14 Glucose 131 H Calcium 8.4 L Medications Administered Current Inpatient Medications Acetaminophen (Acetaminophen 325 Mg Tab) 650 mg PO Q4H PRN PRN Reason: Pain or Fever Stop: 05/13/21 19:17 Last Admin: 04/16/21 21:52 Dose: 650 mg Documented by: Albuterol (Albuterol Hfa 8 Gm Inhaler) 1 puffs INH BIDR PRN PRN Reason: SOB/WHEEZING Stop: 05/13/21 19:36 Allopurinol ([facility] 300 Mg Tab) [facility] [place] Stop: 05/14/21 08:59 Last Admin: 04/19/21 09:34 Dose: 300 mg Documented by: Amlodipine Besylate (Amlodipine Besylate 5 Mg Tab) [facility] [place] Stop: 05/19/21 08:59 Last Admin: 04/19/21 09:33 Dose: 10 mg Documented by: Atorvastatin Calcium (Atorvastatin 40 Mg Tab) 40 mg PO [facility] Stop: 05/13/21 20:59 Last Admin: 04/18/21 22:26 Dose: 40 mg Documented by: Calamine/Phenol (Menthol-Zinc Oxide 360 Appln/120 Gm Tube) 1 appln EXT TID [facility] Stop: 05/13/21 19:17 Last Admin: 04/19/21 14:52 Dose: 1 appln Documented by: Clopidogrel Bisulfate (Clopidogrel Bisulfate 75 Mg Tab) [facility] [place] Stop: 05/14/21 08:59 Last Admin: 04/19/21 09:34 Dose: 75 mg Documented by: Docusate Sodium (Docusate Sodium 100 Mg Cap) 200 mg PO Q12 PRN PRN Reason: Constipation Finasteride (Finasteride 5 Mg Tab) [facility] [place] Stop: 05/14/21 08:59 Last Admin: 04/19/21 09:34 Dose: 5 mg Documented by: Fluticasone Furoate (Fluticasone Furoate 200mcg 14 Puffs/Inhaler) 1 puffs INH DAILY [facility]; Protocol Stop: 05/14/21 08:59 Last Admin: 04/19/21 09:32 Dose: 1 puffs Documented by: Furosemide (Furosemide 40 Mg Tab) 40 mg PO QAM [facility] Stop: 05/14/21 08:59 Last Admin: 04/19/21 09:33 Dose: 40 mg Documented by: Gabapentin (Gabapentin 300 Mg Cap) 300 mg PO TID [facility] Stop: 05/13/21 19:17 Last Admin: 04/19/21 14:52 Dose: 300 mg Documented by: Guaifenesin (Guaifenesin 600 Mg Tabcr) 600 mg PO Q12 [facility] Stop: 05/14/21 17:29 Last Admin: 04/19/21 09:35 Dose: 600 mg Documented by: Guaifenesin/Codeine Phosphate (Guaifenesin/Codeine 200mg/20mg 10ml Udc) 10 ml PO Q6H PRN PRN Reason: Cough Stop: 05/18/21 17:27 Nafcillin Sodium 2,000 mg/ (Dextrose) 108 mls @ 100 mls/hr IV Q4H [facility] Stop: 04/26/21 10:59 Last Infusion: 04/19/21 17:38 Dose: Infused Documented by: Ipratropium [place] (Ipratropium [place] Hfa Inhaler) 1 puffs INH BIDR PRN PRN Reason: SOB/WHEEZING Stop: 05/13/21 19:36 Lactobacillus Acidoph/Casei/Rhamnos (Advanced Probiotic 1250 Mg Capsule) 2 cap PO DAILY [facility] Stop: 05/18/21 08:59 Last Admin: 04/19/21 09:33 Dose: 2 cap Documented by: Levothyroxine Sodium (Levothyroxine Sodium 75 Mcg Tablet) 75 mcg PO DAILYBB [facility] Stop: 05/14/21 06:29 Last Admin: 04/19/21 05:12 Dose: 75 mcg Documented by: Loperamide HCl (Loperamide Hcl 2 Mg Cap) 2 mg PO Q4H PRN PRN Reason: Diarrhea Stop: 05/13/21 19:17 Magnesium Oxide (Magnesium Oxide 400 Mg Tab) 400 mg PO BID [facility] Stop: 05/13/21 20:59 Last Admin: 04/19/21 09:35 Dose: 400 mg Documented by: Melatonin (Melatonin 3 Mg Tab) 3 mg PO HS [facility] Stop: 05/13/21 20:59 Last Admin: 04/18/21 22:32 Dose: 3 mg Documented by: Metoprolol Succinate (Metoprolol Succ 50mg Ext Rel Tab) 50 mg PO [facility] Stop: 05/13/21 11:45 Last Admin: 04/19/21 09:33 Dose: 50 mg Documented by: Metronidazole (Metronidazole 500 Mg Tab) 500 mg PO Q8 [facility]; Protocol Stop: 04/20/21 21:59 Last Admin: 04/19/21 14:52 Dose: 500 mg Documented by: Mirabegron (Mirabegron Er 25 Mg Tab) 50 mg PO [facility] Stop: 05/14/21 08:59 Last Admin: 04/19/21 10:13 Dose: 50 mg Documented by: Mirtazapine (Mirtazapine Tab 15 Mg Tab) 7.5 mg PO [facility] Stop: 05/13/21 20:59 Last Admin: 04/18/21 22:28 Dose: 7.5 mg Documented by: Multivitamins/Minerals (Cerovite Adv Formula Tab) 1 tab PO [facility] Stop: 05/14/21 08:59 Last Admin: 04/19/21 09:34 Dose: 1 tab Documented by: Ondansetron HCl (Ondansetron Inj 2 Mg/Ml 2 Ml Vial) 4 mg IV Q6H PRN PRN Reason: Nausea Stop: 05/13/21 19:17 Polyethylene Glycol (Polyethylene (Miralax) 17 Gm Pack) 17 gm PO DAILY PRN PRN Reason: Constipation Stop: 05/13/21 19:17 Prednisone (Prednisone 5 Mg Tab) 5 mg PO [facility] Stop: 05/14/21 08:59 Last Admin: 04/19/21 09:34 Dose: 5 mg Documented by: Tamsulosin HCl (Tamsulosin Hcl 0.4 Mg Cap) 0.4 mg PO [facility] Stop: 05/13/21 20:59 Last Admin: 04/18/21 22:28 Dose: 0.4 mg Documented by: Vitamin D (Cholecalciferol 1,000 Units 25 Mcg Tab) 2,000 units PO [facility] Stop: 05/14/21 08:59 Last Admin: 04/19/21 09:34 Dose: 2,000 units Documented by:
[2021-04-19] MEDS: MIRTAZAPINE TAB 15 MG TAB PO SCH (22:19)
[2021-04-19] MEDS: TAMSULOSIN HCL 0.4 MG CAP PO SCH (22:21)
[2021-04-19] MEDS: ATORVASTATIN 40 MG TAB PO SCH (22:22)
[2021-04-19] MEDS: MELATONIN 3 MG TAB PO SCH (22:26)
[2021-04-20] MEDS: NAFCILLIN SODIUM 2,000 MG in DEXTROSE 5% 100 ML IV SCH ×3 (02:00→11:34)
[2021-04-20] MEDS: LEVOTHYROXINE SODIUM 75 MCG TABLET PO SCH (06:03)
[2021-04-20] MEDS: amLODIPine BESYLATE 5 MG TAB PO SCH (09:01)
[2021-04-20] MEDS: MENTHOL-ZINC OXIDE 360 APPLN/120 GM TUBE EXT SCH (09:01)
[2021-04-20] MEDS: METOPROLOL SUCC 50MG EXT REL TAB PO SCH (09:01)
[2021-04-20] MEDS: GABAPENTIN 300 MG CAP PO SCH (09:01)
[2021-04-20] MEDS: FINASTERIDE 5 MG TAB PO SCH (09:01)
[2021-04-20] MEDS: CLOPIDOGREL BISULFATE 75 MG TAB PO SCH (09:01)
[2021-04-20] MEDS: ADVANCED PROBIOTIC 1250 MG CAPSULE PO SCH (09:02)
[2021-04-20] MEDS: MIRABEGRON ER 25 MG TAB PO SCH (09:02)
[2021-04-20] MEDS: MAGNESIUM OXIDE 400 MG TAB PO SCH (09:02)
[2021-04-20] MEDS: CEROVITE ADV FORMULA TAB PO SCH (09:02)
[2021-04-20] MEDS: predniSONE 5 MG TAB PO SCH (09:02)
[2021-04-20] MEDS: CHOLECALCIFEROL 1,000 UNITS 25 MCG TAB PO SCH (09:02)
[2021-04-20] MEDS: allopurinoL 300 MG TAB PO SCH (09:02)
[2021-04-20] MEDS: FLUTICASONE FUROATE 200MCG 14 PUFFS/INHALER INH SCH (09:02)
[2021-04-20] MEDS: FUROSEMIDE 40 MG TAB PO SCH (09:02)
[2021-04-20] MEDS ORDERED: ENOXAPARIN INJ 40 MG/0.4 ML SYR SQ ONE (11:12)
[2021-04-21] MEDS ORDERED: amLODIPine BESYLATE 5 MG TAB PO SCH (09:00)
--- NOTE | 2021-04-24 23:14 | Discharge Summary ---
Date of Service April 20, 2022 Discharge Data Allergies Allergy/AdvReac Type Severity Reaction Status Date / Time iodine Allergy Unknown Unknown Verified 04/13/21 09:02 Riley And Derivatives AdvReac Intermediate Abdominal Verified 04/13/21 09:02 pain (citrus juice) tomato AdvReac Intermediate Headache Verified 04/13/21 09:02 (tomato juice) colchicine AdvReac Mild GI upset Verified 04/13/21 09:02 morphine AdvReac Unknown "out of Verified 04/13/21 09:02 it" x days Consultations 04/13/21 09:19 ED Decision to Admit Stat 04/13/21 11:29 Consult Palliative Care Routine Ordered Studies 04/13/21 07:15 CT chest diagnostic wo con Stat Hospital Course (1) Pneumonia of both lower lobes: Recently admitted from 03/10-03/24 for AMS in setting of multifocal pneumonia with positive MRSA screen Received IV Vanco and Zosyn which was deescalated to Augmentin and doxycycline. Patient completed 10-day course of antibiotics on 03/21 Underwent video swallow, which showed no significant laryngeal penetration or aspiration Successfully weaned off of daytime oxygen, discharged back to [facility] Presented again this admission with hypoxia and disorientation. 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 He had no leukocytosis and a normal procalcitonin. He was given vancomycin cefepime and Flagyl for coverage of possible aspiration pneumonia. He was given 1 dose of Lasix for lower extremity swelling which also may have been related to amlodipine use. He underwent a video swallow study revealing no significant laryngeal penetration or aspiration. He continues to do well oxygenating 96% on 2 L nasal cannula which he typically uses consistently at night. In the setting of pneumonia and deconditioning with multiple hospitalizations it would not be unusual him to use more daytime oxygen while he is recovering. No significant respiratory symptoms at this time. Continue nafcillin for MSSA found in sputum culture. (2) Hypoxia: Secondary to pneumonia and improved (3) COPD (chronic obstructive pulmonary disease): Chronic, appears stable, no wheezing on exam. Continue home inhalers, and continue chronic daily prednisone. (4) Left shoulder pain: Patient has not complained about this, follows with orthopedics as outpatient. He is status post steroid injection on 03/[address] Cast. Follow-up recommended in 3 to 6 weeks. (5) Hypertension: Around goal, continue current medical therapy. Amlodipine increased during previous admission, now with increased BLE edema - went back to previous dose of 5mg daily Continue metoprolol succinate to 50 mg daily, Lasix 40mg daily (6) Elevated troponin: Chronically elevated, CAD appears stable with no chest pain or other symptoms consistent with ACS. (7) H/O atrial flutter: Not anticoagulated due to fall risk, rate controlled on metoprolol (8) Chronic diastolic heart failure: Echo 09/09/20 showing EF of 60 to 64%, LV wall thickness moderately increased, concentric, s/p TAVR with CoreValve prosthesis valve, mild perivalvular aortic valve prosthesis regurg, mild tricuspid regurg, mild pulm HTN Lasix decreased from 60mg to 20mg during previous admission in setting of MAXI He continues on slightly increased dose of 40mg daily and doing well. (9) Aortic stenosis: s/p TAVR with bioprosthetic valve (10) PVD (peripheral vascular disease): cont ASA/Plavix per home regimen. (11) DVT prophylaxis: SCDs DNR Dipso-back to [facility] when bed available. Jie Dick DO [facility] Hospitalist Discharge Plan Discharge Items Patient Disposition: Personal [facility] Reason For Visit: HYPOXIA, BILAT LOWER LOBE PNA Discharge Diagnosis: MSSA pneumonia Hypoxia Condition on Discharge: Good Activity: Resume your previous activity Non-emergency contact: Primary Care Provider Call non-emergency contact if: you have any medication questions, your symptoms worsen and you have a fever Follow-up/Referrals: [place] [employer] [facility] [place], [facility] [Primary Care Provider] - Diet: Heart Healthy Diet Texture: Pureed (blended smooth) Addtl Attending Provider Instructions: Mr. Jones, You were treated for pneumonia in the hospital and completed a course of antibiotics. It would be beneficial to undergo repeat chest imaging in 4 to 6 weeks to ensure complete resolution of pneumonia. Please follow-up with your primary care doctor within 1 week of discharge to ensure you are still doing well after returning home. Please note your amlodipine has been reduced back to 5 mg daily in an effort to reduce the chance of lower extremity swelling. Also, your Lasix has been increased from 20 mg daily to 40 mg daily. Please continue taking this dose consistently and repeat your blood work in 2 weeks with your primary care physician. It was a pleasure taking care of you! Please call if you have any questions or problems. You can reach a [facility] hospitalist on duty at [facility] 24 hours a day by calling [phone]. Take care of yourself. Jie Dick, DO [facility] Hospitalist Addtl Gastroenterology Professor Provider Instructions: Pured diet that is slippery is recommended. Add condiments to foods to keep them loose and moist. Avoid overly thick pured foods. Observe aspiration and reflux precautions. Alternate solids and liquids, keep fully upright and alert while eating. Use single bites, small sips, at a slow rate. Keep head of bed at 30 degrees at all times. Keep him upright with meals for at least 30 minutes after eating. Supervision with meals may be required. Pending Studies at Discharge: No Stand-Alone Forms: My [facility] Skilled Items Patient informed of condition?: Yes DNR: Yes Discharge Level of Care: Other Communicable Disease: No Discharge Prognosis: Stable Lines: None Urinary Catheter: No Medications and DC Order Prescriptions: Continued atorvastatin 40 mg tablet 40 mg PO HS Qty: 90 RF: 0 clopidogrel 75 mg tablet 75 mg PO QAM Qty: 30 RF: 0 allopurinol 300 mg tablet 300 mg PO QAM Qty: 90 RF: 0 ondansetron HCl [Zofran] 4 mg Tablet 4 mg PO Q8H PRN (Reason: Nausea And Vomiting) RF: 0 prednisone 5 mg Tablet 5 mg PO QAM RF: 0 Men's Daily Multivit-Mineral 0.4-600 mg-mcg Tablet 1 tab PO QAM RF: 0 Combivent Respimat 20-100 mcg/actuation Mist 1 puff INHALATION BID PRN (Reason: Shortness Of Breath) RF: 0 cholecalciferol (vitamin D3) [Vitamin D3] 2,000 unit Tablet 2,000 unit PO QAM RF: 0 magnesium oxide 400 mg magnesium Tablet 400 mg PO BID RF: 0 ferrous sulfate 325 mg (65 mg iron) Tablet 325 mg PO QAM RF: 0 finasteride 5 mg tablet 5 mg PO QAM RF: 0 melatonin 1 mg Tablet 4 mg PO HS RF: 0 Biotene Dry Mouth Oral Rinse Mouthwash 5 ml PO DAILY RF: 0 docusate sodium 100 mg Tablet 200 mg PO Q12 PRN (Reason: Constipation) RF: 0 Myrbetriq 50 mg tablet extended release 24 hr 50 mg PO QAM RF: 0 polyethylene glycol 3350 [Miralax] 17 gram/dose Powder 17 g PO DAILY PRN (Reason: Constipation) RF: 0 ipratropium-albuterol 0.5 mg-3 mg(2.5 mg base)/3 mL Solution For Nebulization 3 ml INHALATION Q4H PRN (Reason: Cough) RF: 0 acetaminophen 160 mg/5 mL Liquid 640 mg PO QID PRN (Reason: Pain) RF: 0 loperamide 2 mg Capsule 2 mg PO Q4H PRN (Reason: Diarrhea) RF: 0 Flovent Diskus 250 mcg/actuation blister with device 1 inh INHALATION BID RF: 0 Aloe Britt Protectant Ointment 43 % Ointment 1 applic TOPICAL DAILY PRN (Reason: Skin Cleansing) RF: 0 menthol-zinc oxide [Calmoseptine] 0.44-20.6 % Ointment 1 applic TOPICAL TID RF: 0 amoxicillin 500 mg capsule 2,000 mg PO ONCE RF: 0 gabapentin 300 mg capsule 300 mg PO TID RF: 0 tamsulosin 0.4 mg capsule 0.4 mg PO HS RF: 0 metoprolol succinate 50 mg Tablet Extended Release 24 Hr 50 mg PO QAM Qty: 30 RF: 0 levothyroxine 75 mcg Tablet 75 mcg PO QAM RF: 0 lidocaine 1.8 % Adhesive Patch,Medicated 1 patch TOPICAL DAILY PRN (Reason: Pain) RF: 0 mirtazapine [Remeron] 15 mg Tablet 7.5 mg PO HS RF: 0 Changed amlodipine [Norvasc] 5 mg Tablet 5 mg PO QAM Qty: 30 RF: 0 furosemide 20 mg tablet 40 mg PO DAILY Qty: 0 RF: 0 Discontinued Coricidin HBP Cold and Flu 2-325 mg Tablet 1 tab PO UD PRN (Reason: Congestion) RF: 0 Discharge Orders: Discharge Order (Routine); Ordered 04/20/21 Ordered By: Jie Dick Admission Data Admit Date/Time: 04/13/21 10:02 Attending Provider: Jie Dick Admit Provider: Raymon Daniels Primary Care Provider: Jeff Duran,[place], Located Within [facility], [facility] Other Providers: Raymon Daniels ; Mala Burdick Other Interventions: Discharge Summary Assessment (RN) Last Done: 04/20/21 11:56
== END 2021-04-20 14:10 | disposition home or self-care (01) | DRG 177 ==
LOC: ED 06:08 → SUATTDRO 10:02 → EDINP 10:02 → 2N 19:15

== ENCOUNTER 2021-05-03 16:48 | Inpatient (IN) ==
[2021-05-03 17:14] LABS: Basophils # (auto) 0.02 K/uL (0-0.2); Basophils % (auto) 0.2 %; Eosinophils # (auto) 0.05 K/uL (0-0.5); Eosinophils % (auto) 0.6 %; Hemoglobin 12.7 g/dL (14.0-18.0); Immature Granulocytes # (auto) 0.03 K/uL (0.00-0.02); Immature Granulocytes % (auto) 0.4 %; Lymphocytes # (auto) 0.57 K/uL (1.2-3.4); Lymphocytes % (auto) 6.7 %; Mean Corpuscular Hemoglobin 29.2 pg (25-34); Mean Corpuscular Volume 94.3 fL (80-100); Mean Platelet Volume 10.4 fL (7.4-10.4); Monocytes % (auto) 5.9 %; Neutrophils # (auto) 7.34 K/uL (1.4-6.5); Neutrophils % (auto) 86.2 %; Platelet Count 182 K/uL (130-400); RDW Coefficient of Variation 16.4 % (11.5-14.5); RDW Standard Deviation 56.6 fL (36.4-46.3); Red Blood Count 4.35 M/uL (4.7-6.1); White Blood Count 8.51 K/uL (4.8-10.8)
--- NOTE | 2021-05-03 17:22 | XRay Report ---
XR chest 1V portable HISTORY: 89 years-old Male SEPSIS acute sepsis with shortness of breath COMPARISON: Chest CT and chest radiograph 04/13/2021 TECHNIQUE: Portable AP view of the chest FINDINGS: Unchanged cardiomegaly. Asbestos related pleural disease redemonstrated with unchanged bibasilar and infrahilar consolidation with reticular interstitial coarsening. There is no pneumothorax or large pl eural effusion. No overt pulmonary edema. There are mildly progressed ill-defined interstitial opacit ies of the right midlung and left lung base. Degenerative changes of the shoulders and spine. Hiatal hernia. Aortic endograft. IMPRESSION: 1. 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 2. Mildly progressed interstitial coarsening of the right midlung and left lung base is suspicious fo r a superimposed infectious or inflammatory pneumonitis. 3. Hiatal hernia. ACT 112: Negative or not required by law. The above report was generated using voice recognition software. It may contain grammatical, syntax o r spelling errors. Electronically signed by: Bang Carlos M.D. 05/03/2021 5:21 PM
[2021-05-03 17:53] LABS: Influenza A virus by PCR Negative (Neg); Influenza B virus by PCR Negative (Neg); RSV by PCR Negative (Neg); SARS CoV2 RNA(COVID-19) InHosp NEGATIVE (Negative)
[2021-05-03 18:22] LABS: INR 1.1 (0.9-1.1); Partial Thromboplastin Ratio 0.9; Partial Thromboplastin Time 24.5 Seconds (21.0-31.0)
[2021-05-03 18:26] LABS: Base Excess VBG 6.7 mEq/L; Oxygen Saturation VBG 85.2 %; pH VBG 7.36 (7.36-7.41)
--- NOTE | 2021-05-03 18:28 | Emergency Department Note ---
History of Present Illness General Chief Complaint: Shortness of Breath/Dyspnea Time Seen by Provider: 05/03/21 16:49 Source: EMS History of Present Illness Provider Complaint: shortness of breath Onset (ago): day(s) (1) Relieved By: + oxygen Exacerbated By: + nothing Context: + recent illness (Recently admitted for pneumonia.) and + choking/aspiration Known history of: COPD, congestive heart failure and recurrent pneumonia Treatment prior to arrival: oxygen and other (tylenol 1g) Related Data Home oxygen amount: 2 liters Home Medications Medication Instructions Recorded Confirmed Type allopurinol 300 mg tablet 300 mg PO QAM #90 tab 01/05/19 05/03/21 History atorvastatin 40 mg tablet 40 mg PO HS #90 tab 01/05/19 05/03/21 History clopidogrel 75 mg tablet 75 mg PO QAM #30 tab 01/05/19 05/03/21 History cholecalciferol (vitamin D3) 50 2,000 unit PO QAM 03/24/19 05/03/21 History mcg (2,000 unit) tablet (Vitamin D3) ipratropium 20 mcg-albuterol 100 1 puff INHALATION BID 03/24/19 05/03/21 History mcg/actuation mist for inhalation (Combivent Respimat) magnesium oxide 400 mg PO BID 03/24/19 05/03/21 History multivit with minerals-folic 1 tab PO QAM 03/24/19 05/03/21 History acid-lycopene 0.4 mg-600 mcg tablet (Men's Daily Multivitamin-Mineral) ondansetron HCl 4 mg tablet 4 mg PO Q8H PRN 03/24/19 05/03/21 History (Zofran) prednisone 5 mg tablet 5 mg PO QAM 03/24/19 05/03/21 History ferrous sulfate 325 mg (65 mg 325 mg PO QAM 09/17/19 05/03/21 History iron) tablet docusate sodium 100 mg tablet 200 mg PO Q12 PRN 06/06/20 05/03/21 History finasteride 5 mg tablet 5 mg PO QAM 06/06/20 05/03/21 History melatonin 1 mg tablet 4 mg PO HS 06/06/20 05/03/21 History saliva substitute combo no.9 5 ml PO DAILY 06/06/20 05/03/21 History (Biotene Dry Mouth Oral Rinse) mirabegron 50 mg tablet,extended 50 mg PO QAM 06/22/20 05/03/21 History release 24 hr (Myrbetriq) polyethylene glycol 3350 17 17 g PO DAILY PRN 10/27/20 05/03/21 History gram/dose oral powder (Miralax) levothyroxine 75 mcg tablet 75 mcg PO QAM 01/04/21 05/03/21 History lidocaine 1.8 % topical patch 1 patch TOPICAL UD PRN 01/04/21 05/03/21 History mirtazapine 15 mg tablet (Remeron) 7.5 mg PO HS 01/06/21 05/03/21 History acetaminophen 160 mg/5 mL oral 640 mg PO Q6 PRN 03/10/21 05/03/21 History liquid amoxicillin 500 mg capsule 2,000 mg PO ONCE 03/10/21 05/03/21 History fluticasone propionate 250 1 inh INHALATION BID 03/10/21 05/03/21 History mcg/actuation blister powder for inhalation (Flovent Diskus) gabapentin 300 mg capsule 300 mg PO TID 03/10/21 05/03/21 History ipratropium 0.5 mg-albuterol 3 mg 3 ml INHALATION Q4H PRN 03/10/21 05/03/21 History (2.5 mg base)/3 mL nebulization soln loperamide 2 mg capsule 2 mg PO Q4H PRN 03/10/21 05/03/21 History menthol 0.44 %-zinc oxide 20.6 % 1 applic TOPICAL TID 03/10/21 05/03/21 History topical ointment (Calmoseptine) tamsulosin 0.4 mg capsule 0.4 mg PO HS 03/10/21 05/03/21 History white petrolatum 43 % topical 1 applic TOPICAL DAILY PRN 03/10/21 05/03/21 History ointment (Aloe Aldie Protectant Ointment) metoprolol succinate 50 mg 50 mg PO QAM #30 tab 03/24/21 05/03/21 Rx tablet,extended release 24 hr amlodipine 10 mg tablet 10 mg PO QAM 05/03/21 05/03/21 History furosemide 20 mg tablet 40 mg PO [id number] 05/03/21 05/03/21 History Allergies Allergy/AdvReac Type Severity Reaction Status Date / Time iodine Allergy Unknown Unknown Verified 05/03/21 17:39 [place] And Derivatives AdvReac Intermediate Abdominal Verified 05/03/21 17:39 pain (citrus juice) tomato AdvReac Intermediate Headache Verified 05/03/21 17:39 (tomato juice) colchicine AdvReac Mild GI upset Verified 05/03/21 17:39 morphine AdvReac Unknown "out of Verified 05/03/21 17:39 it" x days Past Med/Surg History Medical History Anemia BPH (benign prostatic hypertrophy) Chronic venous insufficiency CKD (chronic kidney disease), stage III Dyslipidemia Elevated PSA Elevated troponin Esophageal dysmotility GERD (gastroesophageal reflux disease) Gout H/O atrial flutter Post-op (2013)- converted to SR with IV diltiazem Hiatal hernia History of duodenal ulcer History of kidney stones Hypoxia Neuropathy Nocturnal hypoxemia 2L O2 HS Osteoarthritis Osteoporosis Peripheral vascular disease s/p angioplasty of right posterior tibial artery Pneumonia of both lower lobes Psoriatic arthritis Renal lesion Umbilical hernia Urinary incontinence Urinary retention Surgical History Amputation of toe R/L second toe Family history of reaction to anesthesia Daughter- N/V History of angioplasty of peripheral vessel History of cataract surgery R/L History of colonoscopy History of esophagogastroduodenoscopy (EGD) History of lithotripsy History of lumbar fusion History of tooth extraction 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 Status post endovenous radiofrequency ablation of saphenous vein Family History Mother Colorectal cancer Sister Breast cancer Lung cancer Father Parkinson disease Brother Nephrolithiasis Social History Smoking Status: Unknown if ever smoked Tobacco Type: Cigarettes Second Hand Exposure: No; Hx Alcohol Use: No Hx Substance Use: No Preferred Language: Arabic Communication Ability: Effective Visual Impairment: No Limitations Hearing Ability: Normal Hose Seamer Required: No Beliefs That Will Affect Care: None marital status: / Current Living Situation: Personal Care Facility Current Living Situation Comment: [facility] current occupational status: retired other: walks with walker Feels Safe at Home: Yes Assistive Devices: Oxygen - Continuous and Walker Review of Systems Unobtainable due to cognitive status Physical Exam Vital Signs: Vital Signs - 24 hr 05/03/21 16:54 05/03/21 17:00 05/03/21 17:02 Temperature 37.7 C H Temperature Source Oral Pulse Rate 90 87 90 Pulse Rate [Finger ] Pulse Rate from Sp O2 Sensor 90 87 Respiratory Rate 25 H 25 H 25 H Respiratory Effort / Characteristics Non-Labored Sponta neous Respiratory Depth Normal Blood Pressure 130/71 Blood Pressure [Ri ght Arm] Blood Pressure Mel n 90 Blood Pressure Mel n [Right Arm] Blood Pressure Pos ition Sitting Pulse Oximetry 86 L 90 84 L Oxygen Delivery Me thod Nasal Cannula Nasal Cannula Nasal Cannula Oxygen Flow Rate 4 6 4 Fraction of Inspir ed Oxygen Sepsis Recent Feve r Within 48 Hours Yes Sepsis New/Unexpla ined Change in Men xiao Status Yes Sepsis Action Take n by Nursing No Action Required 05/03/21 17:10 05/03/21 17:12 05/03/21 17:20 Temperature Temperature Source Pulse Rate 85 84 Pulse Rate [Finger ] Pulse Rate from Sp O2 Sensor 84 84 Respiratory Rate 22 20 23 Respiratory Effort / Characteristics Non-Labored Sponta neous Respiratory Depth Blood Pressure Blood Pressure [Ri ght Arm] Blood Pressure Mel n Blood Pressure Mel n [Right Arm] Blood Pressure Pos ition Pulse Oximetry 94 89 L 93 Oxygen Delivery Me thod Nasal Cannula High Flow Nasal Ca nnula Nasal Cannula Oxygen Flow Rate 7 35 7 Fraction of Inspir ed Oxygen 65 Sepsis Recent Feve r Within 48 Hours Sepsis New/Unexpla ined Change in Men xioa Status Sepsis Action Take n by Nursing 05/03/21 17:30 05/03/21 17:40 05/03/21 17:50 Temperature Temperature Source Pulse Rate 83 82 83 Pulse Rate [Finger ] Pulse Rate from Sp O2 Sensor 83 82 83 Respiratory Rate 23 20 21 Respiratory Effort / Characteristics Respiratory Depth Blood Pressure Blood Pressure [Ri ght Arm] Blood Pressure Mel n Blood Pressure Mel n [Right Arm] Blood Pressure Pos ition Pulse Oximetry 94 93 94 Oxygen Delivery Me thod High Flow Nasal Ca nnula High Flow Nasal Ca nnula High Flow Nasal Ca nnula Oxygen Flow Rate Fraction of Inspir ed Oxygen Sepsis Recent Feve r Within 48 Hours Sepsis New/Unexpla ined Change in Men xiao Status Sepsis Action Take n by Nursing 05/03/21 18:00 05/03/21 18:10 05/03/21 18:20 Temperature Temperature Source Pulse Rate 81 82 83 Pulse Rate [Finger ] Pulse Rate from Sp O2 Sensor 83 82 84 Respiratory Rate 20 19 19 Respiratory Effort / Characteristics Respiratory Depth Blood Pressure Blood Pressure [Ri ght Arm] Blood Pressure Mel n Blood Pressure Mel n [Right Arm] Blood Pressure Pos ition Pulse Oximetry 95 94 94 Oxygen Delivery Me thod High Flow Nasal Ca nnula High Flow Nasal Ca nnula High Flow Nasal Ca nnula Oxygen Flow Rate Fraction of Inspir ed Oxygen Sepsis Recent Feve r Within 48 Hours Sepsis New/Unexpla ined Change in Men xiao Status Sepsis Action Take n by Nursing 05/03/21 18:30 05/03/21 18:40 05/03/21 20:01 Temperature Temperature Source Pulse Rate 82 83 Pulse Rate [Finger ] 87 Pulse Rate from Sp O2 Sensor 82 82 Respiratory Rate 19 17 Respiratory Effort / Characteristics Respiratory Depth Blood Pressure Blood Pressure [Ri ght Arm] 154/81 H Blood Pressure Mel n Blood Pressure Mel n [Right Arm] 105 Blood Pressure Pos ition Pulse Oximetry 93 93 93 Oxygen Delivery Me thod High Flow Nasal Ca nnula High Flow Nasal Ca nnula High Flow Nasal Ca nnula Oxygen Flow Rate 35 Fraction of Inspir ed Oxygen Sepsis Recent Feve r Within 48 Hours Sepsis New/Unexpla ined Change in Men xiao Status Sepsis Action Take n by Nursing Physical Exam: Physical Exam HENT: Exam performed. - Head: Normocephalic and atraumatic. - Right Ear: External ear normal. No mastoid tenderness. - Left Ear: External ear normal. No mastoid tenderness. - Mouth/Throat: The oropharynx is clear and moist. No trismus in the jaw. No dental abscesses or uvula swelling. No oropharyngeal exudate or tonsillar abscesses. EYES: Conjunctivae and EOM are normal. Pupils are equal, round, and reactive to light. Right eye exhibits no discharge. Left eye exhibits no discharge. No scleral icterus. NECK: Normal range of motion. Neck supple. No JVD present. No spinous process tenderness present. No carotid bruit present. No rigidity. No tracheal deviation and normal range of motion present. No Brudzinski's sign and no Kernig's sign noted. CV: Normal rate, regular rhythm, normal heart sounds and intact distal pulses. Palpable radial pulses bue. PULM/CHEST: Rhonchi bilaterally. ABD: The abdomen is soft. Bowel sounds are normal. He has no distension. No mass is present. There is no tenderness. There is no rebound, no guarding, no Sorensen's sign and no tenderness at McBurney's point. Rovsig negative. MUSC/SKEL: Normal range of motion. 1+ pitting edema of the bilateral lower extremities NEURO: Motor and sensation grossly intact. Patient appears confused. Course Course 1649: The patient was evaluated in room B3. A complete history and physical exam was performed Cardiac monitoring: An order was placed for continuous cardiac monitoring. The monitor shows a rate of 90 with sinus rhythm Patient is hypoxic on his usual 2L via nasal canula. Patient will be placed on Vapotherm to improve his oxygen saturation with a goal 88 to 93%. EMR reviewed. Patient is DNR/DNI. Patient was recently admitted to [facility] from April 13 to April 20, 2021. At that time he was diagnosed with pneumonia of the bilateral lower lobes. There is concerned this patient might have aspiration pneumonia. Patient usually wears 2 L nasal cannula. Patient has a history of aortic stenosis as well as diastolic heart failure. 1950: Vital signs stable on Vapotherm. X-ray does appear worsened. Patient treated empirically with Vanco and Zosyn. Labs show normal white blood cell count. Hemoglobin 12.7. VBG is within normal limits. Creatinine is worsened at 1.59. Troponin elevated 0.06 proBNP elevated at 400. [facility] Family at bedside is agreement with this. Discussed with Dr. Gross will evaluate the patient. Administered Medications Discontinued Medications Albuterol (Albut/Ipratrop 3mg/0.5mg Neb 3 Ml Vial) 3 ml NEB NOW STA; Protocol Stop: 05/03/21 20:07 Last Admin: 05/03/21 20:17 Dose: 3 ml Documented by: [id number] Diphtheria/Pertussis/Tetanus Vacc (Diphtheria/Tetanus/Pertussis 0.5 Ml Syr/Vial) Confirm Administered Dose 0.5 ml IM .Redbiotec-MED ONE Stop: 05/03/21 20:09 Last Admin: 05/03/21 20:23 Dose: Not Given Documented by: [id number] Piperacillin Sod/Tazobactam Sod (Zosyn) 4.5 gm in 120 mls @ 240 mls/hr IV NOW ONE Stop: 05/03/21 19:58 Last Admin: 05/03/21 20:16 Dose: 240 mls/hr Documented by: [id number] Methylprednisolone 40 mg/ (Syringe) 0.64 mls @ 1.5 mls/min IV NOW STA Stop: 05/03/21 20:08 Last Admin: 05/03/21 20:23 Dose: 1.5 mls/min Documented by: [id number] Medical Decision Making Laboratory Data Result diagrams: 05/03/21 17:05 05/03/21 17:59 Lab Results 05/03/21 05/03/21 05/03/21 Range/Units 16:57 17:05 17:05 WBC (4.8-10.8) K/uL RBC (4.7-6.1) M/uL Hgb (14.0-18.0) g/dL Hct (42-52) % MCV (80-100) fL MCH (25-34) pg MCHC (32-36) g/dL RDW Std Deviation (36.4-46.3) fL RDW Coeff of Morris (11.5-14.5) % Plt Count (130-400) K/uL MPV (7.4-10.4) fL Immature Gran % (Auto) % Neut % (Auto) % Lymph % (Auto) % Miller % (Auto) % Eos % (Auto) % Baso % (Auto) % Neut # (Auto) (1.4-6.5) K/uL Lymph # (Auto) (1.2-3.4) K/uL Miller # (Auto) (0.11-0.59) K/uL Eos # (Auto) (0-0.5) K/uL Baso # (Auto) (0-0.2) K/uL Immature Gran # (Auto) (0.00-0.02) K/uL PT INR APTT PTT Ratio VBG pH (7.36-7.41) VBG pCO2 (38-50) mmHg VBG pO2 mmHg VBG HCO3 mmol/L VBG O2 Saturation % VBG Base Excess mEq/L Barometric Pressure mm/Hg Sodium Cancelled Potassium Cancelled Chloride Cancelled Carbon Dioxide Cancelled Anion Gap Cancelled BUN Cancelled Creatinine Cancelled Est Cr Clr Drug Dosing Cancelled Est GFR ( Amer) Cancelled Est GFR (Non-Af Amer) Cancelled BUN/Creatinine Ratio Cancelled Glucose Cancelled Lactate (0.4-2.0) mmol/L Calcium Cancelled Magnesium Cancelled Total Bilirubin Cancelled AST Cancelled ALT Cancelled Alkaline Phosphatase Cancelled Troponin I Cancelled B-Natriuretic Peptide (0-100) pg/ml Total Protein Cancelled Albumin Cancelled Globulin Cancelled Albumin/Globulin Ratio Cancelled Lipase Cancelled Procalcitonin Cancelled Urine Color Urine Appearance (Clear) Urine pH (4.5-7.5) Ur Specific [place] (1.000-1.030) Urine Protein (Negative) Urine Glucose (UA) (Negative) Urine Ketones (Negative) Urine Blood (Negative) Urine Nitrite (Negative) Urine Bilirubin (Negative) Urine Urobilinogen (Negative) Ur Leukocyte Esterase (Negative) Urine WBC (Auto) (0-5) /hpf Urine RBC (Auto) (0-4) /hpf U Hyaline Cast (Auto) (0-5) /lpf U Epithel Cells (Auto) (0-5) /lpf Urine Bacteria (Auto) (Negative) SARS-CoV-2 (PCR) NEGATIVE (Negative) Influenza Type A (PCR) Negative (Neg) Influenza Type B (PCR) Negative (Neg) RSV (RT-PCR) Negative (Neg) 05/03/21 05/03/21 05/03/21 Range/Units 17:05 17:05 17:59 WBC 8.51 (4.8-10.8) K/uL RBC 4.35 L (4.7-6.1) M/uL Hgb 12.7 L (14.0-18.0) g/dL Hct 41.0 L (42-52) % MCV 94.3 (80-100) fL MCH 29.2 (25-34) pg MCHC 31.0 L (32-36) g/dL RDW Std Deviation 56.6 H (36.4-46.3) fL RDW Coeff of Morris 16.4 H (11.5-14.5) % Plt Count 182 (130-400) K/uL MPV 10.4 (7.4-10.4) fL Immature Gran % (Auto) 0.4 % Neut % (Auto) 86.2 % Lymph % (Auto) 6.7 % Miller % (Auto) 5.9 % Eos % (Auto) 0.6 % Baso % (Auto) 0.2 % Neut # (Auto) 7.34 H (1.4-6.5) K/uL Lymph # (Auto) 0.57 L (1.2-3.4) K/uL Miller # (Auto) 0.50 (0.11-0.59) K/uL Eos # (Auto) 0.05 (0-0.5) K/uL Baso # (Auto) 0.02 (0-0.2) K/uL Immature Gran # (Auto) 0.03 H (0.00-0.02) K/uL PT Cancelled INR Cancelled APTT Cancelled PTT Ratio Cancelled VBG pH 7.36 (7.36-7.41) VBG pCO2 62 H (38-50) mmHg VBG pO2 52 mmHg VBG HCO3 34 mmol/L VBG O2 Saturation 85.2 % VBG Base Excess 6.7 mEq/L Barometric Pressure 732.0 mm/Hg Sodium Potassium Chloride Carbon Dioxide Anion Gap BUN Creatinine Est Cr Clr Drug Dosing Est GFR ( Amer) Est GFR (Non-Af Amer) BUN/Creatinine Ratio Glucose Lactate (0.4-2.0) mmol/L Calcium Magnesium Total Bilirubin AST ALT Alkaline Phosphatase Troponin I B-Natriuretic Peptide (0-100) pg/ml Total Protein Albumin Globulin Albumin/Globulin Ratio Lipase Procalcitonin Urine Color Urine Appearance (Clear) Urine pH (4.5-7.5) Ur Specific [place] (1.000-1.030) Urine Protein (Negative) Urine Glucose (UA) (Negative) Urine Ketones (Negative) Urine Blood (Negative) Urine Nitrite (Negative) Urine Bilirubin (Negative) Urine Urobilinogen (Negative) Ur Leukocyte Esterase (Negative) Urine WBC (Auto) (0-5) /hpf Urine RBC (Auto) (0-4) /hpf U Hyaline Cast (Auto) (0-5) /lpf U Epithel Cells (Auto) (0-5) /lpf Urine Bacteria (Auto) (Negative) SARS-CoV-2 (PCR) (Negative) Influenza Type A (PCR) (Neg) Influenza Type B (PCR) (Neg) RSV (RT-PCR) (Neg) 05/03/21 05/03/2122 Range/Units 17:59 17:59 17:59 WBC (4.8-10.8) K/uL RBC (4.7-6.1) M/uL Hgb (14.0-18.0) g/dL Hct (42-52) % MCV (80-100) fL MCH (25-34) pg MCHC (32-36) g/dL RDW Std Deviation (36.4-46.3) fL RDW Coeff of Morris (11.5-14.5) % Plt Count (130-400) K/uL MPV (7.4-10.4) fL Immature Gran % (Auto) % Neut % (Auto) % Lymph % (Auto) % Miller % (Auto) % Eos % (Auto) % Baso % (Auto) % Neut # (Auto) (1.4-6.5) K/uL Lymph # (Auto) (1.2-3.4) K/uL Miller # (Auto) (0.11-0.59) K/uL Eos # (Auto) (0-0.5) K/uL Baso # (Auto) (0-0.2) K/uL Immature Gran # (Auto) (0.00-0.02) K/uL PT INR APTT PTT Ratio VBG pH (7.36-7.41) VBG pCO2 (38-50) mmHg VBG pO2 mmHg VBG HCO3 mmol/L VBG O2 Saturation % VBG Base Excess mEq/L Barometric Pressure mm/Hg Sodium 143 Potassium 4.7 Chloride 103 Carbon Dioxide 32 Anion Gap 8 BUN 24 H Creatinine 1.59 H Est Cr Clr Drug Dosing 35.7 Est GFR ( Amer) 44.0 Est GFR (Non-Af Amer) 37.9 BUN/Creatinine Ratio 15.1 Glucose 126 H Lactate 1.9 (0.4-2.0) mmol/L Calcium 8.4 L Magnesium 2.3 Total Bilirubin 0.7 AST 16 ALT 14 Alkaline Phosphatase 75 Troponin I 0.06 H* B-Natriuretic Peptide 400 H (0-100) pg/ml Total Protein 6.4 Albumin 3.4 Globulin 3.0 Albumin/Globulin Ratio 1.1 Lipase 30 Procalcitonin Urine Color Urine Appearance (Clear) Urine pH (4.5-7.5) Ur Specific [place] (1.000-1.030) Urine Protein (Negative) Urine Glucose (UA) (Negative) Urine Ketones (Negative) Urine Blood (Negative) Urine Nitrite (Negative) Urine Bilirubin (Negative) Urine Urobilinogen (Negative) Ur Leukocyte Esterase (Negative) Urine WBC (Auto) (0-5) /hpf Urine RBC (Auto) (0-4) /hpf U Hyaline Cast (Auto) (0-5) /lpf U Epithel Cells (Auto) (0-5) /lpf Urine Bacteria (Auto) (Negative) SARS-CoV-2 (PCR) (Negative) Influenza Type A (PCR) (Neg) Influenza Type B (PCR) (Neg) RSV (RT-PCR) (Neg) 05/03/21 05/03/21 05/03/21 Range/Units 17:59 17:59 19:48 WBC (4.8-10.8) K/uL RBC (4.7-6.1) M/uL Hgb (14.0-18.0) g/dL Hct (42-52) % MCV (80-100) fL MCH (25-34) pg MCHC (32-36) g/dL RDW Std Deviation (36.4-46.3) fL RDW Coeff of Morris (11.5-14.5) % Plt Count (130-400) K/uL MPV (7.4-10.4) fL Immature Gran % (Auto) % Neut % (Auto) % Lymph % (Auto) % Miller % (Auto) % Eos % (Auto) % Baso % (Auto) % Neut # (Auto) (1.4-6.5) K/uL Lymph # (Auto) (1.2-3.4) K/uL Miller # (Auto) (0.11-0.59) K/uL Eos # (Auto) (0-0.5) K/uL Baso # (Auto) (0-0.2) K/uL Immature Gran # (Auto) (0.00-0.02) K/uL PT 11.0 INR 1.1 APTT 24.5 PTT Ratio 0.9 VBG pH 7.34 L (7.36-7.41) VBG pCO2 67 H (38-50) mmHg VBG pO2 37 mmHg VBG HCO3 35 mmol/L VBG O2 Saturation 68.3 % VBG Base Excess 7.1 mEq/L Barometric Pressure 732.3 mm/Hg Sodium Potassium Chloride Carbon Dioxide Anion Gap BUN Creatinine Est Cr Clr Drug Dosing Est GFR ( Amer) Est GFR (Non-Af Amer) BUN/Creatinine Ratio Glucose Lactate (0.4-2.0) mmol/L Calcium Magnesium Total Bilirubin AST ALT Alkaline Phosphatase Troponin I B-Natriuretic Peptide (0-100) pg/ml Total Protein Albumin Globulin Albumin/Globulin Ratio Lipase Procalcitonin 0.24 Urine Color Urine Appearance (Clear) Urine pH (4.5-7.5) Ur Specific [place] (1.000-1.030) Urine Protein (Negative) Urine Glucose (UA) (Negative) Urine Ketones (Negative) Urine Blood (Negative) Urine Nitrite (Negative) Urine Bilirubin (Negative) Urine Urobilinogen (Negative) Ur Leukocyte Esterase (Negative) Urine WBC (Auto) (0-5) /hpf Urine RBC (Auto) (0-4) /hpf U Hyaline Cast (Auto) (0-5) /lpf U Epithel Cells (Auto) (0-5) /lpf Urine Bacteria (Auto) (Negative) SARS-CoV-2 (PCR) (Negative) Influenza Type A (PCR) (Neg) Influenza Type B (PCR) (Neg) RSV (RT-PCR) (Neg) 05/03/21 Range/Units 19:54 WBC (4.8-10.8) K/uL RBC (4.7-6.1) M/uL Hgb (14.0-18.0) g/dL Hct (42-52) % MCV (80-100) fL MCH (25-34) pg MCHC (32-36) g/dL RDW Std Deviation (36.4-46.3) fL RDW Coeff of [place] (11.5-14.5) % Plt Count (130-400) K/uL MPV (7.4-10.4) fL Immature Gran % (Auto) % Neut % (Auto) % Lymph % (Auto) % Miller % (Auto) % Eos % (Auto) % Baso % (Auto) % Neut # (Auto) (1.4-6.5) K/uL Lymph # (Auto) (1.2-3.4) K/uL Miller # (Auto) (0.11-0.59) K/uL Eos # (Auto) (0-0.5) K/uL Baso # (Auto) (0-0.2) K/uL Immature Gran # (Auto) (0.00-0.02) K/uL PT INR APTT PTT Ratio VBG pH (7.36-7.41) VBG pCO2 (38-50) mmHg VBG pO2 mmHg VBG HCO3 mmol/L VBG O2 Saturation % VBG Base Excess mEq/L Barometric Pressure mm/Hg Sodium Potassium Chloride Carbon Dioxide Anion Gap BUN Creatinine Est Cr Clr Drug Dosing Est GFR ( Amer) Est GFR (Non-Af Amer) BUN/Creatinine Ratio Glucose Lactate (0.4-2.0) mmol/L Calcium Magnesium Total Bilirubin AST ALT Alkaline Phosphatase Troponin I B-Natriuretic Peptide (0-100) pg/ml Total Protein Albumin Globulin Albumin/Globulin Ratio Lipase Procalcitonin Urine Color Yellow Urine Appearance Clear (Clear) Urine pH 7.0 (4.5-7.5) Ur Specific [place] 1.018 (1.000-1.030) Urine Protein 1+ H (Negative) Urine Glucose (UA) Negative (Negative) Urine Ketones Negative (Negative) Urine Blood Trace H (Negative) Urine Nitrite Negative (Negative) Urine Bilirubin Negative (Negative) Urine Urobilinogen Negative (Negative) Ur Leukocyte Esterase Negative (Negative) Urine WBC (Auto) 1-5 (0-5) /hpf Urine RBC (Auto) 0-4 (0-4) /hpf U Hyaline Cast (Auto) 5-10 H (0-5) /lpf U Epithel Cells (Auto) 5-10 H (0-5) /lpf Urine Bacteria (Auto) Negative (Negative) SARS-CoV-2 (PCR) (Negative) Influenza Type A (PCR) (Neg) Influenza Type B (PCR) (Neg) RSV (RT-PCR) (Neg) Imaging Data Radiologist's Impression: Chest X-Ray 05/03/21 17:02 XR chest 1V portable HISTORY: 89 years-old Male SEPSIS acute sepsis with shortness of breath COMPARISON: Chest CT and chest radiograph 04/13/2021 TECHNIQUE: Portable AP view of the chest FINDINGS: Unchanged cardiomegaly. Asbestos related pleural disease redemonstrated with unchanged bibasilar and infrahilar consolidation with reticular interstitial coarsening. There is no pneumothorax or large pleural effusion. No overt pulm onary edema. There are mildly progressed ill-defined interstitial opacities of the right midlung and left lung base. Degenerative changes of the shoulders and spine. Hiatal hernia. Aortic endograft. IMPRESSION: 1. 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 2. Mildly progressed interstitial coarsening of the right midlung and left lung base is suspicious for a superimposed infectious or inflammatory pneumonitis. 3. Hiatal hernia. ACT 112: Negative or not required by law. The above report was generated using voice recognition software. It may contain grammatical, syntax or spelling errors. Electronically signed by: Bang Carlos M.D. 05/03/2021 5:[address] 05/03/21 18:29 CT head/brain wo con CLINICAL HISTORY: 89 years-old Male with ams. Acutely altered mental status TECHNIQUE: Multiple axial CT images of the head were obtained without contrast. A dose lowering technique was utilized adhering to the principles of ALARA. CT DOSE: 1662.54 mGy.cm COMPARISON: None. FINDINGS: Limited exam secondary to positioning. No acute intracranial hemorrhage, midline shift, intracranial mass, hydrocephalus, territorial ischemia or abnormal extra- axial collection. Age-related involutional changes with white matter hypodensities suggestive of chronic microvascular ischemic disease. Unchanged expected ventriculomegaly. Cerebral vascular and senescent basal ganglia calcifications. The calvarium is intact. Developmental incomplete bony fusion involves the posterior arch of C1. Prior bilateral lens repair. The paranasal sinuses, mastoid air cells, and middle ear cavities are clear. IMPRESSION: No acute intracranial abnormality. ACT 112: Negative or not required by law. The above report was generated using voice recognition software. It may contain grammatical, syntax or spelling errors. Electronically signed by: Bang Carlos M.D. 05/03/2021 7:47 PM ECG Data Interpretation: Sinus rhythm with rate of 89. MN 268. QRS and QTc intervals within normal limits. No ST elevation or ST depression. First-degree AV block. LVH present. Peak T waves in leads V2, V3, V4. [facility] Narrative 1649: The patient was evaluated in room B3. A complete history and physical exam was performed Cardiac monitoring: An order was placed for continuous cardiac monitoring. The monitor shows a rate of 90 with sinus rhythm Patient is hypoxic on his usual 2L via nasal canula. Patient will be placed on Vapotherm to improve his oxygen saturation with a goal 88 to 93%. EMR reviewed. Patient is DNR/DNI. Patient was recently admitted to the [facility] from April 13 to April 20, 2021. At that time he was diagnosed with pneumonia of the bilateral lower lobes. There is concerned this patient might have aspiration pneumonia. Patient usually wears 2 L nasal cannula. Patient has a history of aortic stenosis as well as diastolic heart failure. 1950: Vital signs stable on Vapotherm. X-ray does appear worsened. Patient treated empirically with Vanco and Zosyn. Labs show normal white blood cell count. Hemoglobin 12.7. VBG is within normal limits. Creatinine is worsened at 1.59. Troponin elevated 0.06 proBNP elevated at 400. [facility] Family at bedside is agreement with this. Discussed with Dr. Gross will evaluate the patient. Impression & Plan Hypoxia, Pneumonia Critical Care Time Critical Care Time: Yes Total Critical Care Time: 39 I have personally spent greater than 39 minutes of critical care time in the direct management of this patient. This includes bedside care, interpretation of diagnostic studies, and testing, discussion with consultants, patient, and family members, and other required patient management activities. This 39 minutes is in excess of all separately billable procedures. Discharge Plan Visit Data Chief Complaint: Shortness of Breath/Dyspnea ED Provider: Jourdan Ruth Discharge Problem: Hypoxia, Pneumonia Patient Disposition: Admitted As Inpatient Forms Stand Alone Forms: My [facility] Prescriptions Prescriptions: No Action atorvastatin 40 mg tablet 40 mg PO HS Qty: 90 RF: 0 clopidogrel 75 mg tablet 75 mg PO QAM Qty: 30 RF: 0 allopurinol 300 mg tablet 300 mg PO QAM Qty: 90 RF: 0 ondansetron HCl [Zofran] 4 mg Tablet 4 mg PO Q8H PRN (Reason: Nausea And Vomiting) RF: 0 prednisone 5 mg Tablet 5 mg PO QAM RF: 0 Men's Daily Multivit-Mineral 0.4-600 mg-mcg Tablet 1 tab PO QAM RF: 0 Combivent Respimat 20-100 mcg/actuation Mist 1 puff INHALATION BID RF: 0 cholecalciferol (vitamin D3) [Vitamin D3] 2,000 unit Tablet 2,000 unit PO QAM RF: 0 magnesium oxide 400 mg magnesium Tablet 400 mg PO BID RF: 0 ferrous sulfate 325 mg (65 mg iron) Tablet 325 mg PO QAM RF: 0 finasteride 5 mg tablet 5 mg PO QAM RF: 0 melatonin 1 mg Tablet 4 mg PO HS RF: 0 Biotene Dry Mouth Oral Rinse Mouthwash 5 ml PO DAILY RF: 0 docusate sodium 100 mg Tablet 200 mg PO Q12 PRN (Reason: Constipation) RF: 0 Myrbetriq 50 mg tablet extended release 24 hr 50 mg PO QAM RF: 0 polyethylene glycol 3350 [Miralax] 17 gram/dose Powder 17 g PO DAILY PRN (Reason: Constipation) RF: 0 ipratropium-albuterol 0.5 mg-3 mg(2.5 mg base)/3 mL Solution For Nebulization 3 ml INHALATION Q4H PRN (Reason: Cough) RF: 0 acetaminophen 160 mg/5 mL Liquid 640 mg PO Q6 PRN (Reason: Pain) RF: 0 loperamide 2 mg Capsule 2 mg PO Q4H PRN (Reason: Diarrhea) RF: 0 Flovent Diskus 250 mcg/actuation blister with device 1 inh INHALATION BID RF: 0 Aloe Aldie Protectant Ointment 43 % Ointment 1 applic TOPICAL DAILY PRN (Reason: skin protection) RF: 0 menthol-zinc oxide [Calmoseptine] 0.44-20.6 % Ointment 1 applic TOPICAL TID RF: 0 amoxicillin 500 mg capsule 2,000 mg PO ONCE RF: 0 gabapentin 300 mg capsule 300 mg PO TID RF: 0 tamsulosin 0.4 mg capsule 0.4 mg PO HS RF: 0 metoprolol succinate 50 mg Tablet Extended Release 24 Hr 50 mg PO QAM Qty: 30 RF: 0 levothyroxine 75 mcg Tablet 75 mcg PO QAM RF: 0 lidocaine 1.8 % Adhesive Patch,Medicated 1 patch TOPICAL UD PRN (Reason: Pain) RF: 0 mirtazapine [Remeron] 15 mg Tablet 7.5 mg PO HS RF: 0 amlodipine 10 mg tablet 10 mg PO QAM RF: 0 furosemide 20 mg tablet 40 mg PO 4XWK RF: 0 Referrals Referrals: [facility], [facility] [Primary Care Provider] -
[2021-05-03 18:40] LABS: Albumin Globulin Ratio 1.1 (0.9-2); Albumin Level 3.4 gm/dl (3.4-5.0); BUN Creatinine Ratio 15.1 (10-20); Bilirubin,Total 0.7 mg/dl (0.2-1.0); Calcium 8.4 mg/dl (8.5-10.1); Creatinine Clr Calc Pharmacy 35.7 ml/min; Est GFR (Non-African American) 37.9 ml/min; Magnesium 2.3 mg/dl (1.7-2.4); Potassium 4.7 mmol/L (3.5-5.1); Total Protein 6.4 gm/dl (6.0-8.3)
[2021-05-03 18:41] LABS: Troponin I 0.06 ng/ml (0-0.04)
[2021-05-03] MEDS ORDERED: VANCOMYCIN CONSULT ACTIVE PRN (19:29)
[2021-05-03] MEDS ORDERED: PIPERACILLIN/TAZOBACTAM 4.5 GM/120 ML BAG IV ONE (19:29)
[2021-05-03] MEDS ORDERED: VANCOMYCIN HCL 2,000 MG in SODIUM CHLORIDE 0.9% 500 ML IV ONE (19:29)
--- NOTE | 2021-05-03 19:48 | CT Scan Report ---
CT head/brain wo con CLINICAL HISTORY: 89 years-old Male with ams. Acutely altered mental status TECHNIQUE: Multiple axial CT images of the head were obtained without contrast. A dose lowering tech nique was utilized adhering to the principles of ALARA. CT DOSE: 1662.54 mGy.cm COMPARISON: None. FINDINGS: Limited exam secondary to positioning. No acute intracranial hemorrhage, midline shift, intracranial mass, hydrocephalus, territorial ischemia or abnormal extra-axial collection. Age-related involutiona l changes with white matter hypodensities suggestive of chronic microvascular ischemic disease. Uncha nged expected ventriculomegaly. Cerebral vascular and senescent basal ganglia calcifications. The calvarium is intact. Developmental incomplete bony fusion involves the posterior arch of C1. Prio r bilateral lens repair. The paranasal sinuses, mastoid air cells, and middle ear cavities are clear. IMPRESSION: No acute intracranial abnormality. ACT 112: Negative or not required by law. The above report was generated using voice recognition software. It may contain grammatical, syntax o r spelling errors. Electronically signed by: Bang Carlos M.D. 05/03/2021 7:47 PM
--- NOTE | 2021-05-03 20:03 | History & Physical Report ---
Date of Service May 03, 2021 Assessment & Plan (1) Hypoxia: (2) Pneumonia: (3) Nocturnal hypoxemia: (4) H/O atrial flutter: (5) Chronic diastolic (congestive) heart failure: (6) HTN (hypertension): (7) CKD (chronic kidney disease), stage III: Plan: HPI, PMH, PE, med rec completed by Rody Bishop PA-C. Assessment and Plan per Dr Earl. See addendum. History of Present Illness Chief Complaint: Altered mental status, low oxygen Primary Care Provider: [employer] [facility] Patient is 89-year-old male with PMH COPD, CKD III, chronic diastolic heart failure, HTN, h/o atrial flutter, PVD presented to ER for hypoxia. History is obtained from patient's daughter secondary to patient's current mental status. Patient previously requiring oxygen only at night. Daughter reports patient has been requiring 2 L oxygen during the daytime recently at [facility]. She reports today you have leticiae had stated patient had low-grade fever and oxygen level was in the 70s. Is unaware of any choking episodes. Reports yesterday patient seemed to be at his most recent baseline and was alert and oriented to person and place. Unaware of any vomiting or diarrhea. Today patient with altered mental status. Patient with recent admission 03/10/21 -03/24/21 for altered mental status in setting of multifocal pneumonia with positive MRSA screen. During that admission he received vancomycin, Zosyn which was changed to Augmentin and doxycycline. Received IV Vanco and Zosyn which was deescalated to Augmentin and doxycycline. Underwent video swallow, which showed no significant laryngeal penetration or aspiration. Patient was weaned off of daytime oxygen and discharged back to [facility] Hospitalization 04/13/2021-04/20/2021 for hypoxia and disorientation. 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 He had no leukocytosis and a normal procalcitonin. He was given vancomycin cefepime and Flagyl for coverage of possible aspiration pneumonia. He was given 1 dose of Lasix for lower extremity swelling which also may have been related to amlodipine use. He underwent a video swallow study revealing no significant laryngeal penetration or aspiration. Of note: was discharged on amlodipine 5mg daily and lasix 40mg daily. Current med list from [facility] has amlodipine 10mg daily and lasix 40mg on saturday, , , sat schedule Today in ER T: 37.7C, BP 130/71, R: 25, P: 90, 84% on 4 L nasal cannula up to 93% on high flow. No leukocytosis. Lactate: 1.9, procalcitonin: 0.24 In ER was given Zosyn, vancomycin Allergies Allergy/AdvReac Type Severity Reaction Status Date / Time iodine Allergy Unknown Unknown Verified 05/03/21 17:39 [place] And Derivatives AdvReac Intermediate Abdominal Verified 05/03/21 17:39 pain (citrus juice) tomato AdvReac Intermediate Headache Verified 05/03/21 17:39 (tomato juice) colchicine AdvReac Mild GI upset Verified 05/03/21 17:39 morphine AdvReac Unknown "out of Verified 05/03/21 17:39 it" x days Home Medications Medication Instructions Recorded Confirmed Type allopurinol 300 mg tablet 300 mg PO QAM #90 tab 01/05/19 05/03/21 History atorvastatin 40 mg tablet 40 mg PO HS #90 tab 01/05/19 05/03/21 History clopidogrel 75 mg tablet 75 mg PO QAM #30 tab 01/05/19 05/03/21 History cholecalciferol (vitamin D3) 50 2,000 unit PO QAM 03/24/19 05/03/21 History mcg (2,000 unit) tablet (Vitamin D3) ipratropium 20 mcg-albuterol 100 1 puff INHALATION BID 03/24/19 05/03/21 History mcg/actuation mist for inhalation (Combivent Respimat) magnesium oxide 400 mg PO BID 03/24/19 05/03/21 History multivit with minerals-folic 1 tab PO QAM 03/24/19 05/03/21 History acid-lycopene 0.4 mg-600 mcg tablet (Men's Daily Multivitamin-Mineral) ondansetron HCl 4 mg tablet 4 mg PO Q8H PRN 03/24/19 05/03/21 History (Zofran) prednisone 5 mg tablet 5 mg PO QAM 03/24/19 05/03/21 History ferrous sulfate 325 mg (65 mg 325 mg PO QAM 09/17/19 05/03/21 History iron) tablet docusate sodium 100 mg tablet 200 mg PO Q12 PRN 06/06/20 05/03/21 History finasteride 5 mg tablet 5 mg PO QAM 06/06/20 05/03/21 History melatonin 1 mg tablet 4 mg PO HS 06/06/20 05/03/21 History saliva substitute combo no.9 5 ml PO DAILY 06/06/20 05/03/21 History (Biotene Dry Mouth Oral Rinse) mirabegron 50 mg tablet,extended 50 mg PO QAM 06/22/20 05/03/21 History release 24 hr (Myrbetriq) polyethylene glycol 3350 17 17 g PO DAILY PRN 10/27/20 05/03/21 History gram/dose oral powder (Miralax) levothyroxine 75 mcg tablet 75 mcg PO QAM 01/04/21 05/03/21 History lidocaine 1.8 % topical patch 1 patch TOPICAL UD PRN 01/04/21 05/03/21 History mirtazapine 15 mg tablet (Remeron) 7.5 mg PO HS 01/06/21 05/03/21 History acetaminophen 160 mg/5 mL oral 640 mg PO Q6 PRN 03/10/21 05/03/21 History liquid amoxicillin 500 mg capsule 2,000 mg PO ONCE 03/10/21 05/03/21 History fluticasone propionate 250 1 inh INHALATION BID 03/10/21 05/03/21 History mcg/actuation blister powder for inhalation (Flovent Diskus) gabapentin 300 mg capsule 300 mg PO TID 03/10/21 05/03/21 History ipratropium 0.5 mg-albuterol 3 mg 3 ml INHALATION Q4H PRN 03/10/21 05/03/21 History (2.5 mg base)/3 mL nebulization soln loperamide 2 mg capsule 2 mg PO Q4H PRN 03/10/21 05/03/21 History menthol 0.44 %-zinc oxide 20.6 % 1 applic TOPICAL TID 03/10/21 05/03/21 History topical ointment (Calmoseptine) tamsulosin 0.4 mg capsule 0.4 mg PO HS 03/10/21 05/03/21 History white petrolatum 43 % topical 1 applic TOPICAL DAILY PRN 03/10/21 05/03/21 Hi story ointment (Aloe Advance Protectant Ointment) metoprolol succinate 50 mg 50 mg PO QAM #30 tab 03/24/21 05/03/21 Rx tablet,extended release 24 hr amlodipine 10 mg tablet 10 mg PO QAM 05/03/21 05/03/21 History furosemide 20 mg tablet 40 mg PO 4XWK 05/03/21 05/03/21 History Past Med/Surg History Medical History (Updated 05/03/21 @ 21:50 by Rody Bishop PA-C) Anemia BPH (benign prostatic hypertrophy) Chronic diastolic (congestive) heart failure Chronic venous insufficiency CKD (chronic kidney disease), stage III Dyslipidemia Elevated PSA Elevated troponin Esophageal dysmotility GERD (gastroesophageal reflux disease) Gout H/O atrial flutter Post-op (2013)- converted to SR with IV diltiazem Hiatal hernia History of duodenal ulcer History of kidney stones Hypoxia Neuropathy Nocturnal hypoxemia 2L O2 HS Osteoarthritis Osteoporosis Peripheral vascular disease s/p angioplasty of right posterior tibial artery Pneumonia of both lower lobes Psoriatic arthritis Renal lesion Umbilical hernia Urinary incontinence Urinary retention Surgical History Amputation of toe R/L second toe Family history of reaction to anesthesia Daughter- N/V History of angioplasty of peripheral vessel History of cataract surgery R/L History of colonoscopy History of esophagogastroduodenoscopy (EGD) History of lithotripsy History of lumbar fusion History of tooth extraction 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 Status post endovenous radiofrequency ablation of saphenous vein Family History Mother Colorectal cancer Sister Breast cancer Lung cancer Father Parkinson disease Brother Nephrolithiasis Social History (Updated 05/03/21 @ 21:42 by Rody Bishop PA-C) Smoking Status: Former smoker Tobacco Type: Cigarettes Second Hand Exposure: No; Hx Alcohol Use: No Hx Substance Use: No Preferred Language: Grenadian Communication Ability: Effective Visual Impairment: No Limitations Hearing Ability: Normal Cash Grain [employer] Required: No Beliefs That Will Affect Care: None marital status: / Current Living Situation: Personal Care Facility Current Living Situation Comment: [facility] current occupational status: retired other: walks with walker Feels Safe at Home: Yes Assistive Devices: Oxygen - Continuous and Walker Review of Systems Review of Systems: Unobtainable due to cognitive status Physical Exam Physical Exam: General: +acute distress, restless, chronically ill appearing elderly male Head: normocephalic, atraumatic Eyes: PERRL, EOM's intact, conjunctiva non-injected, anicteric ENT: normal inspection external ears, nose, mucous membranes moist Neck: supple, trachea midline Lungs: + respiratory distress, increased respirations, +diminished breath sounds throughout CV: RRR, + murmur, 1+ pretibial edema Abd: normal BS, soft, no apparent tenderness to palpaiton Ext: no cyanosis, noted to be moving arms and legs Neuro: disoriented, restless, awake, not following commands Skin: warm, dry Results & Data Results & Data ([facility]) Vital Signs (Past 12 Hours) Vital Signs Temp Pulse Resp BP Pulse Ox 05/03/21 18:40 83 17 93 05/03/21 18:30 82 19 93 05/03/21 18:20 83 19 94 05/03/21 18:10 82 19 94 05/03/21 18:00 81 20 95 05/03/21 17:50 83 21 94 05/03/21 17:40 82 20 93 05/03/21 17:30 83 23 94 05/03/21 17:20 84 23 93 05/03/21 17:12 20 89 L 05/03/21 17:10 85 22 94 05/03/21 17:02 37.7 C H 90 25 H 130/71 84 L 05/03/21 17:00 87 25 H 90 05/03/21 16:54 90 25 H 86 L Laboratory Results Short CBC 05/03/21 Range/Units 17:05 WBC 8.51 (4.8-10.8) K/uL Hgb 12.7 L (14.0-18.0) g/dL Hct 41.0 L (42-52) % Plt Count 182 (130-400) K/uL BMP 05/03/21 05/03/21 17:05 17:59 Sodium Cancelled 143 Potassium Cancelled 4.7 Chloride Cancelled 103 Carbon Dioxide Cancelled 32 BUN Cancelled 24 H Creatinine Cancelled 1.59 H Glucose Cancelled 126 H Calcium Cancelled 8.4 L Cardiac Enzymes 05/03/21 05/03/21 05/03/21 Range/Units 17:05 17:59 20:45 Troponin I Cancelled 0.06 H* 0.06 H* Liver Function 05/03/21 05/03/21 Range/Units 17:05 17:59 Total Bilirubin Cancelled 0.7 AST Cancelled 16 ALT Cancelled 14 Alkaline Phosphatase Cancelled 75 Albumin Cancelled 3.4 Urine 05/03/21 Range/Units 19:54 Urine Color Yellow Urine Appearance Clear (Clear) Urine pH 7.0 (4.5-7.5) Ur Specific [place] 1.018 (1.000-1.030) Urine Protein 1+ H (Negative) Urine Glucose (UA) Negative (Negative) Diagnostic Findings Chest X-Ray 05/03/21 17:02 XR chest 1V portable HISTORY: 89 years-old Male SEPSIS acute sepsis with shortness of breath COMPARISON: Chest CT and chest radiograph 04/13/2021 TECHNIQUE: Portable AP view of the chest FINDINGS: Unchanged cardiomegaly. Asbestos related pleural disease redemonstrated with unchanged bibasilar and infrahilar consolidation with reticular interstitial coarsening. There is no pneumothorax or large pleural effusion. No overt pulmonary edema. There are mildly progressed ill-defined interstitial opacities of the right midlung and left lung base. Degenerative changes of the shoulders and spine. Hiatal hernia. Aortic endograft. IMPRESSION: 1. 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 2. Mildly progressed interstitial coarsening of the right midlung and left lung base is suspicious for a superimposed infectious or inflammatory pneumonitis. 3. Hiatal hernia. ACT 112: Negative or not required by law. The above report was generated using voice recognition software. It may contain grammatical, syntax or spelling errors. Electronically signed by: Bang Carlos M.D. 05/03/2021 5:[address] 05/03/21 18:29 CT head/brain wo con CLINICAL HISTORY: 89 years-old Male with ams. Acutely altered mental status TECHNIQUE: Multiple axial CT images of the head were obtained without contrast. A dose lowering technique was utilized adhering to the principles of ALARA. CT DOSE: 1662.54 mGy.cm COMPARISON: None. FINDINGS: Limited exam secondary to positioning. No acute intracranial hemorrhage, midline shift, intracranial mass, hydrocephalus, territorial ischemia or abnormal extra- axial collection. Age-related involutional changes with white matter hypodensities suggestive of chronic microvascular ischemic disease. Unchanged expected ventriculomegaly. Cerebral vascular and senescent basal ganglia calcifications. The calvarium is intact. Developmental incomplete bony fusion involves the posterior arch of C1. Prior bilateral lens repair. The paranasal sinuses, mastoid air cells, and middle ear cavities are clear. IMPRESSION: No acute intracranial abnormality. ACT 112: Negative or not required by law. The above report was generated using voice recognition software. It may contain grammatical, syntax or spelling errors. Electronically signed by: Bang Carlos M.D. 05/03/2021 7:47 PM Supervising Physician Co-Signing Physician Notes IM ATTENDING : Patient seen and examined. History obtained from patient family and records. Unable to obtain history from patient secondary to obtunded state. Preceding documentation by Ms. Rody Bishop PA-C reviewed. FINAL ASSESSMENT AND PLAN as follows : Encephalopathy multifactorial : Hypoxemic, hypercapnic respiratory failure secondary to COPD exacerbation seco ndary to HCAP possible aspiration, known aspiration risk/history of esophageal dysfunction as per records ARF Home neuropsychotropic meds contributory medications contributory Possible sepsis secondary to pulmonary source Immunocompromised patient, history psoriatic arthritis on chronic steroid Rx Troponin elevation secondary to illness in the setting of kidney dysfunction chronic diastolic heart failure (EF of 60-64%, TTE 2020), patient on the dry side paroxysmal atrial flutter, patient NSR, not on anticoagulation secondary to fall risk as per records valvular heart disease (severe status post TAVR, moderate MR, mild TR) hx nonocclusive CAD/PVD as per records Hypertension, BP slightly elevated DM2 diet-controlled, well-controlled as of recent hemoglobin A1c of 6.25 December 2020 chronic anemia, hemoglobin at baseline Hypothyroidism, euthyroid as of recent TSH Past tobacco abuse Medical telemetry BiPAP Recheck ABG CS, Zosyn, Doxycycline Aspiration precautions, follow-up swallow evaluation Nebs RTC, steroid course subsequently tapering down to daily maintenance low dose prednisone for psoriatic arthritis Pulmonary consult if without improvement Monitor creatinine response to gentle IV hydration Appropriate to hold home neuropsychotropic meds for now given encephalopathy Follow troponin Basal insulin, ISS BG goal [id number], update hemoglobin A1c DVT prophylaxis. Heparin subcu DNR Patient's daughter requesting updates from providers Trena Fentona Garnett, contact #[phone]. Text document was generated using Keniu voice recognition software. It may contain grammatical or spelling errors. Kindly contact undersigned for clarification of any documentation item in question. (1) Pneumonia Laterality: bilateral Lung location: unspecified part of lung Pneumonia type: due to unspecified organism Qualified Code(s): J18.9 - Pneumonia, unspecified organism
[2021-05-03] MEDS ORDERED: ALBUT/IPRATROP 3MG/0.5MG NEB 3 ML VIAL NEB STA (20:06)
[2021-05-03] MEDS ORDERED: methylPREDNISolone 40 MG in SYRINGE 0 ML IV STA (20:07)
[2021-05-03] MEDS ORDERED: SODIUM CHLORIDE 0.45 % 1,000 ML IV ONE (20:08)
[2021-05-03] MEDS ORDERED: DIPHTHERIA/TETANUS/PERTUSSIS 0.5 ML SYR/VIAL IM ONE (20:08)
[2021-05-03 20:12] LABS: Appearance Urine Clear (Clear); Bacteria Urine Automated Negative (Negative); Bilirubin Urine Negative (Negative); Blood Urine Trace (Negative); Color Urine Yellow; Glucose Urine UA Negative (Negative); Ketones Urine Negative (Negative); Leukocyte Esterase Urine Negative (Negative); Nitrite Urine Negative (Negative); Protein Urine 1+ (Negative); RBC Urine Automated 0-4 /hpf (0-4); Specific Gravity Urine 1.018 (1.000-1.030); Urobilinogen Urine Negative (Negative)
[2021-05-03 20:13] LABS: Base Excess VBG 7.1 mEq/L; Oxygen Saturation VBG 68.3 %; pH VBG 7.34 (7.36-7.41)
[2021-05-03 21:39] LABS: Troponin I 0.06 ng/ml (0-0.04)
[2021-05-03] MEDS ORDERED: DOXYCYCLINE HYCLATE 100 MG in DEXTROSE 5% 100 ML IV STA (22:47)
[2021-05-03] MEDS ORDERED: CARBOHYDRATES FOR HYPOGLYCEMIA PO PRN (22:54)
[2021-05-03] MEDS ORDERED: GLUCAGON FOR INJ 1 MG VIAL SQ PRN (22:54)
[2021-05-03] MEDS ORDERED: INSULIN GLARGINE SOLOSTAR 100 UNITS/ML 3 ML PEN SC STA (22:54)
[2021-05-03] MEDS ORDERED: GLUCOSE 10 TABS/TUBE PO PRN (22:54)
[2021-05-03] MEDS ORDERED: GLUCOSE 40% GEL 15 GM TUBE PO PRN (22:54)
[2021-05-03] MEDS ORDERED: DEXTROSE 50% 50 ML SYRINGE IV PRN (22:54)
[2021-05-03] MEDS: INSULIN ASPART PER UNIT SC SCH (23:33)
[2021-05-03 23:45] LABS: Base Excess ABG 5.6 mEq/L (-9-1.8); HCO3 ABG 33 mmol/L (19-24); PCO2 ABG 61 mmHg (35-46); PO2 ABG 69 mmHg (80-95); pH ABG 7.35 (7.35-7.45)
[2021-05-03 23:46] LABS: Allen Test POS (Pos)
[2021-05-04] MEDS ORDERED: ACETAMINOPHEN 325 MG TAB PO PRN (00:41)
[2021-05-04] MEDS ORDERED: XOPENEX/ATROVENT 1.25mg/0.5MG NEB COMBO NEB SCH (01:00)
[2021-05-04] MEDS: IPRATROPIUM BROMIDE NEB SOLN 0.02% 2.5 ML VIAL INH SCH ×3 (01:18→11:37)
[2021-05-04] MEDS: LEVALBUTEROL 1.25MG/0.5ML NEB INH SCH ×3 (01:18→11:37)
[2021-05-04] MEDS ORDERED: DOCUSATE SODIUM 100 MG CAP PO PRN (01:27)
[2021-05-04] MEDS ORDERED: PIPERACILLIN/TAZOBACTAM 3.375 GM in DEXTROSE 5% 100 ML IV ONE (01:30)
[2021-05-04] MEDS ORDERED: OLANZapine 10 MG/2.1 ML SDV IM STA ×2 (02:15→09:52)
[2021-05-04 04:58] LABS: Basophils # (auto) 0.01 K/uL (0-0.2); Basophils % (auto) 0.2 %; Hematocrit (blood only) 41.2 % (42-52); Hemoglobin 12.4 g/dL (14.0-18.0); Immature Granulocytes # (auto) 0.02 K/uL (0.00-0.02); Immature Granulocytes % (auto) 0.3 %; Lymphocytes # (auto) 0.47 K/uL (1.2-3.4); Lymphocytes % (auto) 7.9 %; Mean Corpuscular Hemoglobin 28.5 pg (25-34); Mean Corpuscular Hgb Conc 30.1 g/dL (32-36); Mean Corpuscular Volume 94.7 fL (80-100); Mean Platelet Volume 9.7 fL (7.4-10.4); Monocytes # (auto) 0.02 K/uL (0.11-0.59); Monocytes % (auto) 0.3 %; Neutrophils # (auto) 5.43 K/uL (1.4-6.5); Neutrophils % (auto) 91.3 %; Platelet Count 155 K/uL (130-400); RDW Coefficient of Variation 16.2 % (11.5-14.5); RDW Standard Deviation 56.3 fL (36.4-46.3); Red Blood Count 4.35 M/uL (4.7-6.1); White Blood Count 5.95 K/uL (4.8-10.8)
[2021-05-04 05:24] LABS: Troponin I 0.05 ng/ml (0-0.04)
[2021-05-04 05:25] LABS: BUN Creatinine Ratio 17.3 (10-20); Calcium 8.1 mg/dl (8.5-10.1); Creatinine Clr Calc Pharmacy 40.8 ml/min; Est GFR (African American) 51.7 ml/min; Est GFR (Non-African American) 44.6 ml/min; Potassium 4.6 mmol/L (3.5-5.1)
[2021-05-04 05:59] LABS: Estimated Average Glucose 143 mg/dl; Hemoglobin A1C 6.6 % (4.5-5.6)
[2021-05-04] MEDS: HEPARIN SOD 5,000 UNIT/0.5 ML VIAL SQ SCH ×3 (06:25→22:26)
[2021-05-04] MEDS ORDERED: OLANZapine 10 MG/2.1 ML SDV IM ONE (08:39)
[2021-05-04] MEDS: LEVOTHYROXINE SODIUM 75 MCG TABLET PO SCH (08:47)
[2021-05-04] MEDS: INSULIN ASPART PER UNIT SC SCH ×4 (08:49→22:27)
[2021-05-04] MEDS: amLODIPine BESYLATE 5 MG TAB PO SCH (08:50)
[2021-05-04] MEDS: FINASTERIDE 5 MG TAB PO SCH (08:50)
[2021-05-04] MEDS: allopurinoL 300 MG TAB PO SCH (08:50)
[2021-05-04] MEDS: METOPROLOL SUCC 50MG EXT REL TAB PO SCH (08:50)
[2021-05-04] MEDS: CLOPIDOGREL BISULFATE 75 MG TAB PO SCH (08:50)
[2021-05-04] MEDS: DOXYCYCLINE HYCLATE 100 MG CAP PO SCH ×2 (08:50→22:22)
[2021-05-04] MEDS ORDERED: [UNRECOGNIZED DRUG - OTHER] PO SCH (09:00)
[2021-05-04] MEDS ORDERED: methylPREDNISolone 40 MG in SYRINGE 0 ML IV SCH (09:00)
[2021-05-04] MEDS ORDERED: PIPERACILL/TAZOBAC CONSULT ACTIVE PRN (09:00)
[2021-05-04] MEDS ORDERED: predniSONE 20 MG TAB PO SCH (09:00)
[2021-05-04] MEDS ORDERED: MULTIVIT WITH MIN FA LYCOPENE PO SCH (09:00)
[2021-05-04] MEDS: PIPERACILLIN/TAZOBACTAM 3.375 GM in DEXTROSE 5% 100 ML IV SCH ×2 (11:58→17:21)
[2021-05-04] MEDS ORDERED: FERROUS SULFATE 325 MG TAB PO SCH (12:00)
--- NOTE | 2021-05-04 18:17 | Electrocardiogram Report ---
Test Reason : Blood Pressure : / mmHG Vent. Rate : 089 BPM Atrial Rate : 089 BPM P-R Int : 268 ms QRS Dur : 108 ms QT Int : 392 ms P-R-T Axes : 103 -44 037 degrees QTc Int : 476 ms Sinus rhythm with 1st degree A-V block Left axis deviation Pulmonary disease pattern Abnormal ECG When compared with ECG of 13-APR-2021 06:15, No significant change was found Confirmed by Hermilo Dent ([id number]) on 05/04/2021 6:17:06 PM Referred By: José Aguilar [place] Confirmed By:Hermilo Dent
--- NOTE | 2021-05-04 18:53 | Hospitalist Progress Note ---
Date of Service May 04, 2021 10:00 Assessment & Plan (1) Acute respiratory failure: Plan: Required BIPAP overnight, followed by combativeness with severe hypoxia for several hours, then ok with supplemental oxygen via nasal canula. (2) Pneumonia: Plan: Mutliple recent hospitalizations for pneumonia without clearing infection. 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 Remote h/o smoking. Returns again for treatment of pneumonia without a leukocytosis or elevated procalcitonin. He also has no known aspiration issues, although he is an aspiration risk. Cont on Zosyn and doxy for now and monitor for clincaly response. Unfortunately, he has been hypoxic for the majority of the day but is responding well to the nasal canula. CO2 61 with normal to slightly acidotic p H, so this is likely close to his elevated CO2 baseline on average, maybe slightly lower. Will consult pulmonology as patient hasn't seemed to clear infection which may need further workup. (3) Acute metabolic encephalopathy: Plan: multifactorial including but not limited to pneumonia with worsening hypoxia, MAXI, possibly intravenous steroids contributing, hypercarbia, ?underlying dementia. Cont treatment plans as listed below. (4) Acute kidney injury: Plan: Improved but not to baseline. Unable to give IVF but suspect that he is dry. Cont to encourage PO hydration and repeat BMP in am. (5) Delirium: Plan: Worsening delirium with combativeness requiring chemical restraint. One to one as needed. (6) Chronic diastolic (congestive) heart failure: Plan: Compensated. No evidence of edema on CXR, no weight gain or swelling apparent. PAtient also is laying down without tachypnea or any respiratory distress. BNP low. Cont Lasix per home regimen. (7) HTN (hypertension): Plan: BP elevated 2/2 agitation. Cont amlodipine per home regimen (8) Psoriatic arthritis: Plan: Follows with [facility]. immunosuppression from chronic steroid use. Resume chronic daily prednisone. (9) PAF (paroxysmal atrial fibrillation): Plan: Currently in sinus rhythm, on metoprolol. No AC 2/2 fall risk per records. (10) DVT prophylaxis: Admission and Anticipated Discharge Date Admission Date: May 03, 2021 Subjective 89 yo M presents with acute metabolic encephalopathy 2/2 worsening pneumonia. Multiple recent hospitalizations for pneumonia and it isn't clear if he has had a clear scan yet after treatment. Speech eval last admission revealed esophageal dysfunction without overt aspiration. 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 He wears 2LPM oxygen at night. He was obtunded on arrival and placed on BIPAP until this morning. Upon awakening he became combative with his aggression refractory to two 2.5mg IM doses of olanzapine. He was noted to be hypoxic but took the oxygen tubing and tried to break it, violently aggressing against anyone who came into his personal space. He refused labs and meds, and his daughter was updated on the situation, notably that he had a possibility of dying without appropriate oxygen supplementation. She was allowed to come into the room and sit with him for the better part of the day with improvement in Mr. Jones's disposition. He finally allowed us to add oxygen and was requiring 5LPM via nasal canula to have an oxygen saturation around 93%. His mental status improved, and his orientation tended to wax and wane. He was able to follow instructions at this point and was compliant with his care plan. He denied any pain or shortness of breath. Review of Systems Review of Systems: Limited ROS so as not to agitate the patient, who was recently combative. He denied SOB, cough, fevers, chills, chest pain, pain or other issues. Physical Exam Physical Exam: CONSTITUTIONAL: WNWD, vitals as above, generally NAD EYES: normal conjunctivae, no scleral icterus, ENT: external ear and nose normal, NECK: trachea midline RESPIRATORY: clear to auscultation bilaterally, no crackles, rales or wheezes, normal respiratory effort CARDIOVASCULAR: regular rate and rhythm, S1 and 2 heard without murmurs, g allops or rubs, no JVD, no peripheral edema GASTROINTESTINAL: soft, nontender, ND, no guarding MUSCULOSKELETAL: strength 5/5 throughout, moves all extremities equally. head is normocephalic and atraumatic SKIN: warm and dry, NEUROLOGIC: No facial palsy, no dysarthria. CN 2-12 grossly intact, normal cognition, normal speech, no tremor PSYCHIATRIC: alert cooperative and oriented to person later in the afternoon wtih daughter present. He was answering questions appropriately but appeared to have a waxing and waning confusion. Results & Data Results & Data ([facility]) Vital Signs (Past 12 Hours) Vital Signs Temp Pulse Resp BP Pulse Ox 05/04/21 16:00 116 H 16 135/86 84 L 05/04/21 08:00 93 H 20 144/85 H 87 L 05/04/21 07:16 36.6 C 88 19 163/98 H 94 Laboratory Results Short CBC 05/04/21 Range/Units 04:37 WBC 5.95 (4.8-10.8) K/uL Hgb 12.4 L (14.0-18.0) g/dL Hct 41.2 L (42-52) % Plt Count 155 (130-400) K/uL BMP 05/04/21 04:37 Sodium 139 Potassium 4.6 Chloride 102 Carbon Dioxide 30 BUN 24 H Creatinine 1.39 Glucose 170 H Calcium 8.1 L Cardiac Enzymes 05/03/21 05/03/21 05/04/21 Range/Units 20:45 23:30 04:37 Troponin I 0.06 H* 0.06 H* 0.05 H* (0-0.04) ng/ml Urine 05/03/21 Range/Units 19:54 Urine Color Yellow Urine Appearance Clear (Clear) Urine pH 7.0 (4.5-7.5) Ur Specific [place] 1.018 (1.000-1.030) Urine Protein 1+ H (Negative) Urine Glucose (UA) Negative (Negative) Medications Administered Current Inpatient Medications Acetaminophen (Acetaminophen 325 Mg Tab) 650 mg PO Q4H PRN PRN Reason: Pain or Fever Stop: 06/03/21 00:40 Allopurinol (Allopurinol 300 Mg Tab) 300 mg PO [facility] Stop: 06/03/21 08:59 Last Admin: 05/04/21 08:50 Dose: Not Given Documented by: Amlodipine Besylate (Amlodipine Besylate 5 Mg Tab) [facility] [place]: 06/03/21 08:59 Last Admin: 05/04/21 08:50 Dose: Not Given Documented by: Atorvastatin Calcium (Atorvastatin 40 Mg Tab) 40 mg PO [facility] Stop: 06/03/21 20:59 Clopidogrel Bisulfate (Clopidogrel Bisulfate 75 Mg Tab) [facility] [place]: 06/03/21 08:59 Last Admin: 05/04/21 08:50 Dose: Not Given Documented by: Dextrose (Dextrose 50% 50 Ml Syringe) 25 - 50 ml IV UD PRN; Protocol PRN Reason: Hypoglycemia Protocol Stop: 06/02/21 22:53 Docusate Sodium (Docusate Sodium 100 Mg Cap) 200 mg PO Q12 PRN PRN Reason: Constipation Stop: 06/03/21 01:26 Doxycycline Hyclate (Doxycycline Hyclate 100 Mg Cap) 100 mg PO BID [facility] Stop: 05/11/21 08:59 Last Admin: 05/04/21 08:50 Dose: Not Given Documented by: Finasteride (Finasteride 5 Mg Tab) 5 mg PO QAM [facility]OM[facility] Stop: 06/03/21 08:59 Last Admin: 05/04/21 08:50 Dose: Not Given Documented by: Glucagon (Glucagon For Inj 1 Mg Vial) 1 mg SQ UD PRN; Protocol PRN Reason: Hypoglycemia Protocol Stop: 06/02/21 22:53 Glucose (Glucose 10 Tabs/Tube) 4 - 8 tabs PO UD PRN; Protocol PRN Reason: Hypoglycemia Protocol Stop: 06/02/21 22:53 Glucose (Glucose 40% Gel 15 Gm Tube) 15 - 30 gm PO UD PRN; Protocol PRN Reason: Hypoglycemia Protocol Stop: 06/02/21 22:53 Heparin Sodium (Porcine) (Heparin Sod 5,000 Unit/0.5 Ml Vial) 5,000 units SQ Q8 [facility] Stop: 06/03/21 05:59 Last Admin: 05/04/21 13:40 Dose: Not Given Documented by: Piperacillin Sod/Tazobactam (Sod 3.375 gm/ Dextrose) 115 mls @ 28.75 mls/hr IV Q8H [facility]; Protocol Stop: 05/11/21 07:59 Last Admin: 05/04/21 17:21 Dose: 28.8 mls/hr Documented by: Methylprednisolone 40 mg/ (Syringe) 0.64 mls @ 1.5 mls/min IV DAILY [facility] Stop: 06/03/21 08:59 Last Admin: 05/04/21 08:50 Dose: Not Given Documented by: Insulin Aspart (Insulin Aspart Per Unit) 0 units SC ACHS [facility] Stop: 06/02/21 22:54 Last Admin: 05/04/21 18:51 Dose: 2 units Documented by: Insulin Glargine (Insulin Glargine Solostar 100 Units/Ml 3 Ml Pen) 5 units SC HS [facility] Stop: 06/03/21 20:59 Levothyroxine Sodium (Levothyroxine Sodium 75 Mcg Tablet) 75 mcg PO DAILYBB [facility] Stop: 06/03/21 06:29 Last Admin: 05/04/21 08:47 Dose: Not Given Documented by: Metoprolol Succinate (Metoprolol Succ 50mg Ext Rel Tab) 50 mg PO QAM [facility] Stop: 06/03/21 08:59 Last Admin: 05/04/21 08:50 Dose: Not Given Documented by: Miscellaneous (Carbohydrates For Hypoglycemia ) 15 - 30 gm PO UD PRN PRN Reason: Hypoglycemia Protocol Stop: 06/02/21 22:53 Miscellaneous (Salonpas~Order Awaiting Action) 1 ea N/A QS [facility] Stop: 06/03/21 07:59 Last Admin: 05/04/21 17:22 Dose: Not Given Documented by: Miscellaneous Information (Piperacill/Tazobac Consult Active) 1 ea N/A UD PRN PRN Reason: Consult Stop: 06/03/21 08:59 Tamsulosin HCl (Tamsulosin Hcl 0.4 Mg Cap) 0.4 mg PO HS [facility] Stop: 06/03/21 20:59 (1) Pneumonia Laterality: bilateral Lung location: unspecified part of lung Pneumonia type: due to unspecified organism Qualified Code(s): J18.9 - Pneumonia, unspecified organism
[2021-05-04] MEDS ORDERED: MELATONIN 3 MG TAB PO PRN (22:22)
[2021-05-04] MEDS: TAMSULOSIN HCL 0.4 MG CAP PO SCH (22:22)
[2021-05-04] MEDS: ATORVASTATIN 40 MG TAB PO SCH (22:23)
[2021-05-04] MEDS: INSULIN GLARGINE SOLOSTAR 100 UNITS/ML 3 ML PEN SC SCH (22:23)
[2021-05-04] MEDS ORDERED: METOPROLOL SUCC 50MG EXT REL TAB PO STA (23:24)
[2021-05-05] MEDS: PIPERACILLIN/TAZOBACTAM 3.375 GM in DEXTROSE 5% 100 ML IV SCH ×3 (00:02→15:38)
[2021-05-05] MEDS: LEVOTHYROXINE SODIUM 75 MCG TABLET PO SCH (06:08)
[2021-05-05] MEDS: HEPARIN SOD 5,000 UNIT/0.5 ML VIAL SQ SCH ×2 (06:13→14:09)
[2021-05-05 07:39] LABS: Hematocrit (blood only) 43.5 % (42-52); Hemoglobin 13.5 g/dL (14.0-18.0); Mean Corpuscular Hemoglobin 28.7 pg (25-34); Mean Corpuscular Volume 92.6 fL (80-100); Mean Platelet Volume 9.5 fL (7.4-10.4); Platelet Count 159 K/uL (130-400); RDW Coefficient of Variation 16.2 % (11.5-14.5); RDW Standard Deviation 54.7 fL (36.4-46.3); White Blood Count 10.31 K/uL (4.8-10.8)
[2021-05-05 08:12] LABS: BUN Creatinine Ratio 16.5 (10-20); Est GFR (Non-African American) 56.1 ml/min; Magnesium 1.9 mg/dl (1.7-2.4); Phosphorus 1.7 mg/dl (2.5-4.9); Potassium 3.6 mmol/L (3.5-5.1)
--- NOTE | 2021-05-05 08:51 | Pulmonary Consultation ---
Date of Consultation May 05, 2021 Assessment & Plan (1) Acute respiratory failure: (2) Paraesophageal hernia: (3) Abnormal CT scan of lung: Impression: 89-year-old male with massive paraesophageal hernia, evidence of pleural calcifications admitted with hypoxemia. He did have a sputum culture which was positive for MRSA but has been treated fairly extensively in the past. He is never had a pro calcitonin which was elevated. His white count has never been elevated. He has not had a fever. I am not entirely convinced that these episodes represent recurrent pneumonia. The patient has multiple etiologies for hypoxemia outside of pneumonia at this point in time including structural lung disease, compressive atelectasis, and hypercarbia as his most recent blood gas showed a pH of 7.35 with a CO2 of 61. Recommendations: 1. Hypoxemic respiratory failure: Again suspect this is multifactorial with etiologies noted above. Had a long discussion with the patient. He is not really interested in pursuing additional aggressive diagnostic approaches which I think is reasonable. If this were to be worked up additionally, outpatient PFTs and assessment of neuromuscular strength might be appropriate. Outpatient sleep study could be considered as well. The patient may benefit from nocturnal positive airway pressure although he again does not believe that he would want any of these diagnostic studies or interventions undertaken. 2. I do not believe the patient is suffering from recurrent pneumonia. The staph identified in March should have been adequately treated and is of unclear significance in a patient without significant lower respiratory symptoms. I do not think he requires additional antibiotics at this point in time. If the primary service wishes to continue antibiotics, treatment with doxycycline for 10 to 14 days may be appropriate. I do not see an indication for steroids from a lung standpoint. 3. The patient reiterates that he does not want any aggressive interventions performed and wishes to focus on symptom management which I think is reasonable. He confirms DNR/DNI status. Would be happy to follow this patient in the outpatient setting if he decides to pursue additional intervention however at this point time he is leaning towards a more symptom based approach which I would agree with. Pulmonary will sign off for now. Feel free to call with additional questions. History of Present Illness Attending Physician: Jie Dick, DO History of Present Illness Asked by hospitalist to evaluate this patient with questionable recurrent pneumonia. History is obtained from review electronic medical record as well as interview the patient at bedside. The patient is an 89-year-old male with a history of nocturnal hypoxemia, prior asbestos related pleural disease, and admission February 28 to March 24 for altered mental status with multifocal pneumonia and positive MRSA receiving vancomycin and Zosyn, transition to Augmentin and doxycycline. Video swallow at that point time was negative. The patient was then rehospitalized April 13 through April 20 with hypoxemia and mental status changes. CT scan at that point time showed basilar infiltrates with asbestos-related pleural disease. He was afebrile had a normal procalcitonin. He received an additional course of vancomycin cefepime and Flagyl for potential aspiration pneumonia as well as Lasix. Patient was brought to the emergency room 05/03 with hypoxemia and altered mental status again. According to the patient's daughter, he has been requiring increasing amounts of oxygen. He may have had low-grade fevers. Currently the patient is awake alert and eating. He denies any respiratory problems. He does not report shortness of breath or cough. No difficulty with chewing or swallowing. No chest pain or palpitations. He states he is getting tired of coming back and forth to the hospital. He believes that his body may be wearing out. He is not interested in any invasive or aggressive interventions at this point time and confirms DNR/DNI status. Allergies Allergy/AdvReac Type Severity Reaction Status Date / Time iodine Allergy Unknown Unknown Verified 05/03/21 17:39 [place] [employer] AdvReac Intermediate Abdominal Verified 05/03/21 17:39 pain (citrus juice) tomato AdvReac Intermediate Headache Verified 05/03/21 17:39 (tomato juice) colchicine AdvReac Mild GI upset Verified 05/03/21 17:39 morphine AdvReac Unknown "out of Verified 05/03/21 17:39 it" x days Home Medications Medication Instructions Recorded Confirmed Type allopurinol 300 mg tablet 300 mg PO QAM #90 tab 01/05/19 05/03/21 History atorvastatin 40 mg tablet 40 mg PO HS #90 tab 01/05/19 05/03/21 History clopidogrel 75 mg tablet 75 mg PO QAM #30 tab 01/05/19 05/03/21 History cholecalciferol (vitamin D3) 50 2,000 unit PO QAM 03/24/19 05/03/21 History mcg (2,000 unit) tablet (Vitamin D3) ipratropium 20 mcg-albuterol 100 1 puff INHALATION BID 03/24/19 05/03/21 History mcg/actuation mist for inhalation (Combivent Respimat) magnesium oxide 400 mg PO BID 03/24/19 05/03/21 History multivit with minerals-folic 1 tab PO QAM 03/24/19 05/03/21 History acid-lycopene 0.4 mg-600 mcg tablet (Men's Daily Multivitamin-Mineral) ondansetron HCl 4 mg tablet 4 mg PO Q8H PRN 03/24/19 05/03/21 History (Zofran) prednisone 5 mg tablet 5 mg PO QAM 03/24/19 05/03/21 History ferrous sulfate 325 mg (65 mg 325 mg PO QAM 09/17/19 05/03/21 History iron) tablet docusate sodium 100 mg tablet 200 mg PO Q12 PRN 06/06/20 05/03/21 History finasteride 5 mg tablet 5 mg PO QAM 06/06/20 05/03/21 History melatonin 1 mg tablet 4 mg PO HS 06/06/20 05/03/21 History saliva substitute combo no.9 5 ml PO DAILY 06/06/20 05/03/21 History (Biotene Dry Mouth Oral Rinse) mirabegron 50 mg tablet,extended 50 mg PO QAM 06/22/20 05/03/21 History release 24 hr (Myrbetriq) polyethylene glycol 3350 17 17 g PO DAILY PRN 10/27/20 05/03/21 History gram/dose oral powder (Miralax) levothyroxine 75 mcg tablet 75 mcg PO QAM 01/04/21 05/03/21 History lidocaine 1.8 % topical patch 1 patch TOPICAL UD PRN 01/04/21 05/03/21 History mirtazapine 15 mg tablet (Remeron) 7.5 mg PO HS 01/06/21 05/03/21 History acetaminophen 160 mg/5 mL oral 640 mg PO Q6 PRN 03/10/21 05/03/21 History liquid amoxicillin 500 mg capsule 2,000 mg PO ONCE 03/10/21 05/03/21 History fluticasone propionate 250 1 inh INHALATION BID 03/10/21 05/03/21 History mcg/actuation blister powder for inhalation (Flovent Diskus) gabapentin 300 mg capsule 300 mg PO TID 03/10/21 05/03/21 History ipratropium 0.5 mg-albuterol 3 mg 3 ml INHALATION Q4H PRN 03/10/21 05/03/21 History (2.5 mg base)/3 mL nebulization soln loperamide 2 mg capsule 2 mg PO Q4H PRN 03/10/21 05/03/21 History menthol 0.44 %-zinc oxide 20.6 % 1 applic TOPICAL TID 03/10/21 05/03/21 History topical ointment (Calmoseptine) tamsulosin 0.4 mg capsule 0.4 mg PO HS 03/10/21 05/03/21 History white petrolatum 43 % topical 1 applic TOPICAL DAILY PRN 03/10/21 05/03/21 History ointment (Aloe Randolph Protectant Ointment) metoprolol succinate 50 mg 50 mg PO QAM #30 tab 03/24/21 05/03/21 Rx tablet,extended release 24 hr amlodipine 10 mg tablet 10 mg PO QAM 05/03/21 05/03/21 History furosemide 20 mg tablet 40 mg PO 4XWK 05/03/21 05/03/21 History Patient History Medical History (Updated 05/05/21 @ 09:08 by Quentin Nova MD) Anemia BPH (benign prostatic hypertrophy) Chronic diastolic (congestive) heart failure Chronic venous insufficiency CKD (chronic kidney disease), stage III Dyslipidemia Elevated PSA Elevated troponin Esophageal dysmotility GERD (gastroesophageal reflux disease) Gout H/O atrial flutter Post-op (2013)- converted to SR with IV diltiazem Hiatal hernia History of duodenal ulcer History of kidney stones Hypoxia Neuropathy Nocturnal hypoxemia 2L O2 HS Osteoarthritis Osteoporosis Peripheral vascular disease s/p angioplasty of right posterior tibial artery Pneumonia of both lower lobes Psoriatic arthritis Renal lesion Umbilical hernia Urinary incontinence Urinary retention Surgical History Amputation of toe R/L second toe Family history of reaction to anesthesia Daughter- N/V History of angioplasty of peripheral vessel History of cataract surgery R/L History of colonoscopy History of esophagogastroduodenoscopy (EGD) History of lithotripsy History of lumbar fusion History of tooth extraction 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 Status post endovenous radiofrequency ablation of saphenous vein Family History Mother Colorectal cancer Sister Breast cancer Lung cancer Father Parkinson disease Brother Nephrolithiasis Social History (Updated 05/03/21 @ 21:42 by Rody Bishop PA-C) Smoking Status: Unknown if ever smoked Tobacco Type: Cigarettes Second Hand Exposure: No; Preferred Language: Citizen [place] Communication Ability: Impaired Visual Impairment: No Limitations Hearing Ability: Normal Music Rehabilitation Therapist Required: No Beliefs That Will Affect Care: None marital status: / Current Living Situation: Personal Care Facility Current Living Situation Comment: [facility] Personal retirement current occupational status: retired Other Information That Helps Us Care for You: No other: walks with walker Feels Safe at Home: Yes Assistive Devices: Oxygen - Continuous and Wheelchair Review of Systems Review of Systems: Please refer to admission H&P. No additions or deletions Physical Exam Constitutional: WD/WN, vitals as above Neck: trachea midline, no thyromegaly Respiratory: normal respiratory effort; no respiratory distress, no labored breathing, no cough and not tachypneic Auscultation: + rhonchi Cardiovascular: RRR, no murmur, no edema Gastrointestinal (Abdomen): normal bowel sounds, soft, nontender, no hepatosplenomegaly Musculoskeletal: Extremities: extremities normal to inspection Skin: no rashes, warm and dry Neurologic: Nonfocal exam Lymphatic: no cervical lymphadenopathy Results & Data Results & Data ([facility]) Vital Signs (Past 12 Hours) Vital Signs Temp Pulse Pulse Resp BP Pulse Ox 05/05/21 07:25 36.3 C L 93 H 16 151/85 H 96 05/05/21 04:00 36.7 C 89 20 154/87 H 93 05/04/21 23:19 36.8 C 102 H 16 177/92 H 95 05/04/21 22:45 98 H 05/04/21 21:15 100 H Laboratory Results Procalcitonin is never been elevated. The patient's never demonstrated elevated white blood cell count. Diagnostic Findings Review of the patient's chest x-rays demonstrate accounting for technical issues, there does not appear to be any significant change in the patient's x- ray. CT scan demonstrates that the entirety of the patient's stomach lies within the thoracic cavity with a massive paraesophageal hernia. This does cause some compressive atelectasis. Critical Care Results & Data Vital Signs (Past 12 Hours) Vital Signs Temp Pulse Pulse Resp BP Pulse Ox 05/05/21 07:25 36.3 C L 93 H 16 151/85 H 96 05/05/21 04:00 36.7 C 89 20 154/87 H 93 05/04/21 23:19 36.8 C 102 H 16 177/92 H 95 05/04/21 22:45 98 H 05/04/21 21:15 100 H Lab & Micro Results (Past 24 Hours) RBC 4.70 M/uL (4.7-6.1) 05/05/21 WBC 10.31 K/uL (4.8-10.8) 05/05/21 Hgb 13.5 g/dL (14.0-18.0) L 05/05/21 Hct 43.5 % (42-52) 05/05/21 MCV 92.6 fL (80-100) 05/05/21 MCH 28.7 pg (25-34) 05/05/21 MCHC 31.0 g/dL (32-36) L 05/05/21 RDW Standard Deviation 54.7 fL (36.4-46.3) H 05/05/21 RDW Coefficient of Variation 16.2 % (11.5-14.5) H 05/05/21 Plt Count 159 K/uL (130-400) 05/05/21 MPV 9.5 fL (7.4-10.4) 05/05/21 Na 138 mmol/L (136-145) 05/05/21 K 3.6 mmol/L (3.5-5.1) 05/05/21 Cl 101 mmol/L (98-107) 05/05/21 CO2 30 mmol/L (21-32) 05/05/21 Anion Gap 7 (3-11) 05/05/21 BUN 19 mg/dl (6-23) 05/05/21 Creatinine 1.15 mg/dl (0.6-1.4) 05/05/21 Estimated GFR ( Amer) 65.0 ml/min 05/05/21 Estimated GFR (Non-Af Amer) 56.1 ml/min 05/05/21 BUN/Creatinine Ratio 16.5 (10-20) 05/05/21 Glu 111 mg/dl (70-99) H 05/05/21 Ca 8.0 mg/dl (8.5-10.1) L 05/05/21 Phosphorus Level 1.7 mg/dl (2.5-4.9) L 05/05/21 Mg 1.9 mg/dl (1.7-2.4) 05/05/21 07:14 05/05/21 Calcium Level 8.0 mg/dl (8.5-10.1) L 05/05/21 07:14 05/05/21 Microbiology 05/03/21 17:59 Aerobic Blood Culture - Preliminary Blood No growth in Aerobic bottle after 24 hours. Anaerobic Blood Culture - Preliminary No growth in Anaerobic bottle after 24 hours. 05/03/21 17:05 Aerobic Blood Culture - Preliminary Blood No growth in Aerobic bottle after 24 hours. Anaerobic Blood Culture - Preliminary No growth in Anaerobic bottle after 24 hours. I & O Totals 24 Hours 05/04/21 05/05/21 05/06/21 06:59 06:59 06:59 Intake Total 885 / 885 1383 / 1383 Output Total 300 / 300 1250 / 1250 Balance 585 / 585 133 / 133 Cumulative 05/03/21 16:25 thru 05/05/21 06:00 Intake Total 2268 Output Total 1550 Balance 718 RT Ventilator Mngmt (Last Documented) Ventilator Ordered Settings Respiratory Rate 16 05/05/21 07:25 Fraction of Inspired Oxygen 30 05/04/21 07:16 Ventilator - PT Measurements Respiratory Rate 16 PG Care Time/CCT Total # of Minutes Spent Total Time Spent with Patient: Total time spent is greater than 50% in coordination of care (as documented) at patient's floor/unit and/or counseling patient: Coding Level of Care Code 86121 Initial Inpt Care Lvl 3 Diagnoses Acute respiratory failure J96.00 Paraesophageal hernia K44.[address] scan of lung R91.8
[2021-05-05] MEDS: INSULIN ASPART PER UNIT SC SCH ×4 (09:10→21:35)
[2021-05-05] MEDS ORDERED: SODIUM PHOSPHATE 3 MMOL/1 ML INFUSION IV STA (09:19)
[2021-05-05] MEDS ORDERED: SODIUM PHOSPHATE 30 MMOL in SODIUM CHLORIDE 0.9% 500 ML IV ONE (09:30)
[2021-05-05] MEDS: CLOPIDOGREL BISULFATE 75 MG TAB PO SCH (09:39)
[2021-05-05] MEDS: METOPROLOL SUCC 50MG EXT REL TAB PO SCH (09:40)
[2021-05-05] MEDS: allopurinoL 300 MG TAB PO SCH (09:40)
[2021-05-05] MEDS: DOXYCYCLINE HYCLATE 100 MG CAP PO SCH (09:40)
[2021-05-05] MEDS: amLODIPine BESYLATE 5 MG TAB PO SCH (09:40)
[2021-05-05] MEDS: FINASTERIDE 5 MG TAB PO SCH (09:41)
[2021-05-05] MEDS: predniSONE 5 MG TAB PO SCH (09:41)
--- NOTE | 2021-05-05 16:57 | Hospitalist Progress Note ---
Date of Service May 05, 2021 Assessment & Plan (1) Acute respiratory failure: Plan: Required BIPAP on admission for hypercapnia and obtunded state, followed by combativeness with severe hypoxia for several hours, then ok with supplemental oxygen via nasal canula. Overnight he remains on oxygen but has intermittently removed this with waxing/waning confusion per nursing staff. Pulm consulted and not convinced this is infectious, and I agree in the absence of fever and elevated procalcitonin. Recent speech eval with no kevin aspiration. No need for additional evaluation of swallowing at this time. Will stop antibiotics. Multiple etiologies for hypoxemia outside of pneumonia including structural lung disease, compressive atelectasis, and hypercarbia. Cont pulmonary toilet efforts and wean oxygen as tolerated. (2) Pneumonia: Plan: Plan as above. Patient not interested in aggressive workups at this time. (3) Acute metabolic encephalopathy: Plan: improved, multifactorial including but not limited to pneumonia with worsening hypoxia-improved now as long as he keeps his oxygen on, MAXI-resolved, possibly intravenous steroids contributing, hypercarbia, ?underlying dementia. (4) Acute kidney injury: Plan: resolved. Encouraging PO intake. (5) Delirium: Plan: Resolved. Worsening delirium with combativeness requiring chemical restraint. One to one as needed. (6) Chronic diastolic (congestive) heart failure: Plan: Compensated. No evidence of edema on CXR, no weight gain or swelling apparent. BNP low. Cont Lasix per home regimen. (7) HTN (hypertension): Plan: BP elevated 2/2 agitation-improved today. Cont amlodipine per home regimen (8) Psoriatic arthritis: Plan: Follows with [facility] Rheumatology. immunosuppression from chronic steroid use. Cont chronic daily prednisone. (9) PAF (paroxysmal atrial fibrillation): Plan: Currently in sinus rhythm, on metoprolol. No AC 2/2 fall risk per records. (10) DVT prophylaxis: Plan: Lovenox DNR Dispo-uncertain, pending improvement in hypoxia and PT/OT recs. Jie Dick DO [facility] Hospitalist Admission and Anticipated Discharge Date Admission Date: May 03, 2021 Subjective 89 yo M presents with acute metabolic encephalopathy and hypoxia that has worsened since recent hospitalization. Overnight patient remains on oxygen but frequently takes it off Exhibits intermittent confusion Remains on 6LPM via nasal canula. Denies any pain or difficulty breathing. Tolerating food. Pulm saw patient, antibiotics stopped. Review of Systems Review of Systems: All systems were reviewed and negative except as indicated above. Physical Exam Physical Exam: CONSTITUTIONAL: WNWD, vitals as above, generally NAD, sitting on side of bed and appears slightly uncomfortable like he wants to get up. EYES: normal conjunctivae, no scleral icterus, ENT: external ear and nose normal, MMM NECK: trachea midline RESPIRATORY: coarse rhonchi at bases bilaterally, rales or wheezes, normal respiratory effort CARDIOVASCULAR: regular rate and rhythm, S1 and 2 heard without murmurs, gallops or rubs, no JVD, no peripheral edema GASTROINTESTINAL: soft, nontender, ND, no guarding MUSCULOSKELETAL: strength 5/5 throughout, moves all extremities equally. head is normocephalic and atraumatic SKIN: warm and dry, NEUROLOGIC: No facial palsy, no dysarthria. CN 2-12 grossly intact, normal cognition, normal speech, no tremor. No gross focal deficits. PSYCHIATRIC: alert cooperative and oriented to person and place. Results & Data Results & Data ([facility]) Vital Signs (Past 12 Hours) Vital Signs Temp Pulse Pulse Resp BP Pulse Ox 05/05/21 16:12 100 H 05/05/21 11:07 36.8 C 96 H 16 148/85 H 93 05/05/21 08:00 94 H 05/05/21 07:25 36.3 C L 93 H 16 151/85 H 96 Laboratory Results Short CBC 05/05/21 Range/Units 07:14 WBC 10.31 (4.8-10.8) K/uL Hgb 13.5 L (14.0-18.0) g/dL Hct 43.5 (42-52) % Plt Count 159 (130-400) K/uL BMP 05/05/21 07:14 Sodium 138 Potassium 3.6 Chloride 101 Carbon Dioxide 30 BUN 19 Creatinine 1.15 Glucose 111 H Calcium 8.0 L Medications Administered Current Inpatient Medications Acetaminophen (Acetaminophen 325 Mg Tab) 650 mg PO Q4H PRN PRN Reason: Pain or Fever Stop: 06/03/21 00:40 Last Admin: 05/04/21 23:26 Dose: 650 mg Documented by: [facility]opurinol ([facility] 300 Mg Tab) [facility] Stop: 06/03/21 08:59 Last Admin: 05/05/21 09:40 Dose: 300 mg Documented by: Amlodipine Besylate (Amlodipine Besylate 5 Mg Tab) 10 mg PO QAM [facility] Stop: 06/03/21 08:59 Last Admin: 05/05/21 09:40 Dose: 10 mg Documented by: Atorvastatin Calcium (Atorvastatin 40 Mg Tab) 40 mg PO [facility] Stop: 06/03/21 20:59 Last Admin: 05/04/21 22:23 Dose: 40 mg Documented by: Clopidogrel Bisulfate ([facility]opidogrel Bisulfate 75 Mg Tab) [facility] Stop: 06/03/21 08:59 Last Admin: 05/05/21 09:39 Dose: 75 mg Documented by: Dextrose (Dextrose 50% 50 Ml Syringe) 25 - 50 ml IV UD PRN; Protocol PRN Reason: Hypoglycemia Protocol Stop: 06/02/21 22:53 Docusate Sodium (Docusate Sodium 100 Mg Cap) 200 mg PO Q12 PRN PRN Reason: Constipation Stop: 06/03/21 01:26 Doxycycline Hyclate (Doxycycline Hyclate 100 Mg Cap) 100 mg PO BID [facility] Stop: 05/11/21 08:59 Last Admin: 05/05/21 09:40 Dose: 100 mg Documented by: Finasteride (Finasteride 5 Mg Tab) [facility] Stop: 06/03/21 08:59 Last Admin: 05/05/21 09:41 Dose: 5 mg Documented by: Glucagon (Glucagon For Inj 1 Mg Vial) 1 mg SQ UD PRN; Protocol PRN Reason: Hypoglycemia Protocol Stop: 06/02/21 22:53 Glucose (Glucose 10 Tabs/Tube) 4 - 8 tabs PO UD PRN; Protocol PRN Reason: Hypoglycemia Protocol Stop: 06/02/21 22:53 Glucose (Glucose 40% Gel 15 Gm Tube) 15 - 30 gm PO UD PRN; Protocol PRN Reason: Hypoglycemia Protocol Stop: 06/02/21 22:53 Heparin Sodium (Porcine) (Heparin Sod 5,000 Unit/0.5 Ml Vial) 5,000 units SQ Q8 [facility] Stop: 06/03/21 05:59 Last Admin: 05/05/21 14:09 Dose: Not Given Documented by: Piperacillin Sod/Tazobactam (Sod 3.375 gm/ Dextrose) 115 mls @ 28.75 mls/hr IV Q8H [facility]; Protocol Stop: 05/11/21 07:59 Last Admin: 05/05/21 15:38 Dose: 28.8 mls/hr Documented by: Insulin Aspart (Insulin Aspart Per Unit) 0 units SC ACHS [facility] Stop: 06/02/21 22:54 Last Admin: 05/05/21 12:19 Dose: Not Given Documented by: Insulin Glargine (Insulin Glargine Solostar 100 Units/Ml 3 Ml Pen) 5 units SC HS [facility] Stop: 06/03/21 20:59 Last Admin: 05/04/21 22:23 Dose: 5 units Documented by: Levothyroxine Sodium (Levothyroxine Sodium 75 Mcg Tablet) 75 mcg PO DAILYBB [facility] Stop: 06/03/21 06:29 Last Admin: 05/05/21 06:08 Dose: 75 mcg Documented by: Melatonin (Melatonin 3 Mg Tab) 3 mg PO HS PRN PRN Reason: Sleep Stop: 06/03/21 22:21 Last Admin: 05/05/21 01:53 Dose: 3 mg Documented by: Metoprolol Succinate (Metoprolol Succ 50mg Ext Rel Tab) 50 mg PO QAM [facility] Stop: 06/03/21 08:59 Last Admin: 05/05/21 09:40 Dose: 50 mg Documented by: Miscellaneous (Carbohydrates For Hypoglycemia ) 15 - 30 gm PO UD PRN PRN Reason: Hypoglycemia Protocol Stop: 06/02/21 22:53 Miscellaneous (Salonpas~Order Awaiting Action) 1 ea N/A QS [facility] Stop: 06/03/21 07:59 Last Admin: 05/05/21 15:42 Dose: Not Given Documented by: Miscellaneous Information (Piperacill/Tazobac Consult Active) 1 ea N/A UD PRN PRN Reason: Consult Stop: 06/03/21 08:59 Prednisone (Prednisone 5 Mg Tab) 5 mg PO DAILY [facility] Stop: 06/04/21 08:59 Last Admin: 05/05/21 09:41 Dose: 5 mg Documented by: Tamsulosin HCl (Tamsulosin Hcl 0.4 Mg Cap) 0.4 mg PO HS [facility] Stop: 06/03/21 20:59 Last Admin: 05/04/21 22:22 Dose: 0.4 mg Documented by: (1) Pneumonia Laterality: bilateral Lung location: unspecified part of lung Pneumonia type: due to unspecified organism Qualified Code(s): J18.9 - Pneumonia, unspecified organism
[2021-05-05] MEDS: TAMSULOSIN HCL 0.4 MG CAP PO SCH (21:35)
[2021-05-05] MEDS: ATORVASTATIN 40 MG TAB PO SCH (21:35)
[2021-05-05] MEDS: INSULIN GLARGINE SOLOSTAR 100 UNITS/ML 3 ML PEN SC SCH (21:36)
[2021-05-06] MEDS ORDERED: METOPROLOL TARTRATE 25 MG TAB PO STA (06:16)
[2021-05-06] MEDS ORDERED: POTASSIUM CHLORIDE PWD 20 MEQ PACK PO STA (06:17)
[2021-05-06] MEDS ORDERED: MAGNESIUM SULFATE / D5W 1 GM/100 ML BAG IV ONE (06:30)
[2021-05-06] MEDS: LEVOTHYROXINE SODIUM 75 MCG TABLET PO SCH (06:34)
[2021-05-06 08:03] LABS: Basophils # (auto) 0.01 K/uL (0-0.2); Basophils % (auto) 0.1 %; Eosinophils # (auto) 0.36 K/uL (0-0.5); Eosinophils % (auto) 5.4 %; Hematocrit (blood only) 41.9 % (42-52); Hemoglobin 13.3 g/dL (14.0-18.0); Immature Granulocytes # (auto) 0.03 K/uL (0.00-0.02); Immature Granulocytes % (auto) 0.4 %; Lymphocytes # (auto) 1.18 K/uL (1.2-3.4); Lymphocytes % (auto) 17.6 %; Mean Corpuscular Hemoglobin 28.8 pg (25-34); Mean Corpuscular Hgb Conc 31.7 g/dL (32-36); Mean Corpuscular Volume 90.7 fL (80-100); Mean Platelet Volume 9.3 fL (7.4-10.4); Monocytes # (auto) 0.66 K/uL (0.11-0.59); Monocytes % (auto) 9.9 %; Neutrophils # (auto) 4.46 K/uL (1.4-6.5); Neutrophils % (auto) 66.6 %; Platelet Count 136 K/uL (130-400); RDW Coefficient of Variation 16.1 % (11.5-14.5); RDW Standard Deviation 52.9 fL (36.4-46.3); Red Blood Count 4.62 M/uL (4.7-6.1)
[2021-05-06] MEDS: INSULIN ASPART PER UNIT SC SCH ×4 (08:30→20:34)
[2021-05-06 08:34] LABS: BUN Creatinine Ratio 19.4 (10-20); Calcium 7.7 mg/dl (8.5-10.1); Creatinine Clr Calc Pharmacy 55.5 ml/min; Est GFR (African American) 78.9 ml/min; Est GFR (Non-African American) 68.1 ml/min; Potassium 3.6 mmol/L (3.5-5.1)
[2021-05-06] MEDS: amLODIPine BESYLATE 5 MG TAB PO SCH (09:34)
[2021-05-06] MEDS: allopurinoL 300 MG TAB PO SCH (09:35)
[2021-05-06] MEDS: ENOXAPARIN INJ 40 MG/0.4 ML SYR SQ SCH (09:35)
[2021-05-06] MEDS: CLOPIDOGREL BISULFATE 75 MG TAB PO SCH (09:35)
[2021-05-06] MEDS: predniSONE 5 MG TAB PO SCH (09:35)
[2021-05-06] MEDS: FINASTERIDE 5 MG TAB PO SCH (09:35)
--- NOTE | 2021-05-06 14:28 | Hospitalist Progress Note ---
Date of Service May 06, 2021 Assessment & Plan (1) Acute respiratory failure: Plan: Required BIPAP on admission for hypercapnia and obtunded state, followed by combativeness with severe hypoxia for several hours, then ok with supplemental oxygen via nasal canula. Overnight oxygen needs and mental status has improved. Pulm consulted and not convinced this is infectious, and I agree in the absence of fever and elevated procalcitonin. Recent speech eval with no kevin aspiration. No need for additional evaluation of swallowing at this time. Afebrile and improved off antibiotics. Multiple etiologies for hypoxemia outside of pneumonia including structural lung disease, compressive atelectasis, and hypercarbia. Cont pulmonary toilet efforts and wean oxygen as tolerated. (2) Pneumonia: Plan: ruled out. Plan as above. Patient not interested in aggressive workups at this time. May consider outpatient follow-up; options were discussed with his daughter by phone. (3) Acute metabolic encephalopathy: Plan: resolved. (4) Acute kidney injury: Plan: resolved. Encouraging PO intake. (5) Delirium: Plan: Resolved. Reorient as needed. Keep good day/night cycles. (6) Chronic diastolic (congestive) heart failure: Plan: Compensated. No evidence of edema on CXR, no weight gain or swelling apparent. BNP low. Cont Lasix per home regimen. (7) HTN (hypertension): Plan: BP elevated 2/2 agitation-improved today. Cont amlodipine per home regimen (8) Psoriatic arthritis: Plan: Follows with [facility] Rheumatology. immunosuppression from chronic steroid use. Cont chronic daily prednisone. (9) PAF (paroxysmal atrial fibrillation): Plan: Currently in sinus rhythm, on metoprolol. No AC 2/2 fall risk per records. (10) DVT prophylaxis: Plan: Lovenox DNR Dispo-back to [facility] next week [facility] Hospice care in place. Jie Dick DO [facility] Hospitalist Admission and Anticipated Discharge Date Admission Date: May 03, 2021 Subjective 89 yo M presents with acute metabolic encephalopathy and hypoxia that has worsened since recent hospitalization. Confusion has improved overnight and so is his hypoxia. Denies any respiratory symptoms Afebrile Tolerating PO Long discussion [facility] daughter by phone this morning regarding pros/cons of Hospice Hospice rep was able to meet and discuss options with patient and family today Plans for dc patient home [facility] hospice at discharge. Review of Systems Review of Systems: All systems were reviewed and negative except as indicated above. Physical Exam Physical Exam: CONSTITUTIONAL: WNWD, vitals as above, generally NAD EYES: normal conjunctivae, no scleral icterus ENT: external ear and nose normal, MMM NECK: trachea midline RESPIRATORY: Clear to auscultation throughout, no rales or wheezes, normal respiratory effort CARDIOVASCULAR: regular rate and rhythm, S1 and 2 heard without murmurs, gallops or rubs, no JVD, no peripheral edema GASTROINTESTINAL: soft, nontender, ND, no guarding MUSCULOSKELETAL: strength 5/5 throughout, moves all extremities equally. head is normocephalic and atraumatic SKIN: warm and dry, NEUROLOGIC: No facial palsy, no dysarthria. CN 2-12 grossly intact, normal cognition, normal speech, no tremor. No gross focal deficits. PSYCHIATRIC: alert cooperative and oriented to person and place. Results & Data Results & Data ([facility]) Vital Signs (Past 12 Hours) Vital Signs Temp Pulse Pulse Resp BP Pulse Ox 05/06/21 11:00 36.5 C 79 20 123/71 97 05/06/21 09:34 85 160/88 H 05/06/21 08:00 90 05/06/21 06:05 91 H 18 106/64 94 05/06/21 02:51 36.8 C 69 18 142/89 H 97 Laboratory Results Short CBC 05/06/21 Range/Units 07:35 WBC 6.70 (4.8-10.8) K/uL Hgb 13.3 L (14.0-18.0) g/dL Hct 41.9 L (42-52) % Plt Count 136 (130-400) K/uL BMP 05/06/21 07:35 Sodium 139 Potassium 3.6 Chloride 104 Carbon Dioxide 28 BUN 19 Creatinine 0.98 Glucose 105 H Calcium 7.7 L Medications Administered Current Inpatient Medications Acetaminophen (Acetaminophen 325 Mg Tab) 650 mg PO Q4H PRN PRN Reason: Pain or Fever Stop: 06/03/21 00:40 Last Admin: 05/04/21 23:26 Dose: 650 mg Documented by: Allopurinol (Allopurinol 300 Mg Tab) [facility] Stop: 06/03/21 08:59 Last Admin: 05/06/21 09:35 Dose: 300 mg Documented by: Amlodipine Besylate (Amlodipine Besylate 5 Mg Tab) 10 [facility] [place] Stop: 06/03/21 08:59 Last Admin: 05/06/21 09:34 Dose: 10 mg Documented by: Atorvastatin Calcium (Atorvastatin 40 Mg Tab) 40 mg PO [facility] Stop: 06/03/21 20:59 Last Admin: 05/05/21 21:35 Dose: 40 mg Documented by: Clopidogrel Bisulfate (Clopidogrel Bisulfate 75 Mg Tab) 75 mg PO [facility] Stop: 06/03/21 08:59 Last Admin: 05/06/21 09:35 Dose: 75 mg Documented by: Dextrose (Dextrose 50% 50 Ml Syringe) 25 - 50 ml IV UD PRN; Protocol PRN Reason: Hypoglycemia Protocol Stop: 06/02/21 22:53 Docusate Sodium (Docusate Sodium 100 Mg Cap) 200 mg PO Q12 PRN PRN Reason: Constipation Stop: 06/03/21 01:26 Enoxaparin Sodium (Enoxaparin Inj 40 Mg/0.4 Ml Syr) 40 mg SQ [facility] Stop: 06/05/21 08:59 Last Admin: 05/06/21 09:35 Dose: 40 mg Documented by: Finasteride (Finasteride 5 Mg Tab) 5 mg PO [facility] Stop: 06/03/21 08:59 Last Admin: 05/06/21 09:35 Dose: 5 mg Documented by: Glucagon (Glucagon For Inj 1 Mg Vial) 1 mg SQ UD PRN; Protocol PRN Reason: Hypoglycemia Protocol Stop: 06/02/21 22:53 Glucose (Glucose 10 Tabs/Tube) 4 - 8 tabs PO UD PRN; Protocol PRN Reason: Hypoglycemia Protocol Stop: 06/02/21 22:53 Glucose (Glucose 40% Gel 15 Gm Tube) 15 - 30 gm PO UD PRN; Protocol PRN Reason: Hypoglycemia Protocol Stop: 06/02/21 22:53 Insulin Aspart (Insulin Aspart Per Unit) 0 units SC [facility] Stop: 06/02/21 22:54 Last Admin: 05/06/21 13:37 Dose: 8 units Documented by: Insulin Glargine (Insulin Glargine Solostar 100 Units/Ml 3 Ml Pen) 5 units SC [facility] Stop: 06/03/21 20:59 Last Admin: 05/05/21 21:36 Dose: 5 units Documented by: Levothyroxine Sodium (Levothyroxine Sodium 75 Mcg Tablet) 75 mcg PO DAILYBB [facility] Stop: 06/03/21 06:29 Last Admin: 05/06/21 06:34 Dose: 75 mcg Documented by: Melatonin (Melatonin 3 Mg Tab) 3 mg PO HS PRN PRN Reason: Sleep Stop: 06/03/21 22:21 Last Admin: 05/05/21 01:53 Dose: 3 mg Documented by: Metoprolol Succinate (Metoprolol Succ 50mg Ext Rel Tab) 50 mg PO QAM [facility] Stop: 06/06/21 08:59 Miscellaneous (Carbohydrates For Hypoglycemia ) 15 - 30 gm PO UD PRN PRN Reason: Hypoglycemia Protocol Stop: 06/02/21 22:53 Miscellaneous (Salonpas~Order Awaiting Action) 1 ea N/A QS [facility] Stop: 06/03/21 07:59 Last Admin: 05/06/21 13:32 Dose: Not Given Documented by: Prednisone (Prednisone 5 Mg Tab) 5 mg PO DAILY [facility] Stop: 06/04/21 08:59 Last Admin: 05/06/21 09:35 Dose: 5 mg Documented by: Tamsulosin HCl (Tamsulosin Hcl 0.4 Mg Cap) 0.4 mg PO HS [facility] Stop: 06/03/21 20:59 Last Admin: 05/05/21 21:35 Dose: 0.4 mg Documented by: (1) Pneumonia Laterality: bilateral Lung location: unspecified part of lung Pneumonia type: due to unspecified organism Qualified Code(s): J18.9 - Pneumonia, unspecified organism
[2021-05-06] MEDS: INSULIN GLARGINE SOLOSTAR 100 UNITS/ML 3 ML PEN SC SCH (20:35)
[2021-05-06] MEDS: TAMSULOSIN HCL 0.4 MG CAP PO SCH (20:38)
[2021-05-06] MEDS: ATORVASTATIN 40 MG TAB PO SCH (20:38)
[2021-05-07] MEDS: LEVOTHYROXINE SODIUM 75 MCG TABLET PO SCH ×2 (06:22→06:26)
[2021-05-07] MEDS ORDERED: METOPROLOL SUCC 50MG EXT REL TAB PO SCH (09:00)
[2021-05-07] MEDS: amLODIPine BESYLATE 5 MG TAB PO SCH (09:25)
[2021-05-07] MEDS: CLOPIDOGREL BISULFATE 75 MG TAB PO SCH (09:25)
[2021-05-07] MEDS: allopurinoL 300 MG TAB PO SCH (09:26)
[2021-05-07] MEDS: INSULIN ASPART PER UNIT SC SCH ×5 (09:32→20:56)
[2021-05-07] MEDS: ENOXAPARIN INJ 40 MG/0.4 ML SYR SQ SCH (09:35)
[2021-05-07] MEDS: FINASTERIDE 5 MG TAB PO SCH (09:35)
[2021-05-07] MEDS: predniSONE 5 MG TAB PO SCH (09:36)
--- NOTE | 2021-05-07 13:56 | Hospitalist Progress Note ---
Date of Service May 07, 2021 Assessment & Plan (1) Acute respiratory failure: Plan: Required BIPAP on admission for hypercapnia and obtunded state, followed by combativeness with severe hypoxia for several hours, then ok with supplemental oxygen via nasal canula. Overnight oxygen needs and mental status has improved. Pulm consulted and not convinced this is infectious, and I agree in the absence of fever and elevated procalcitonin. Recent speech eval with no kevin aspiration. No need for additional evaluation of swallowing at this time. Afebrile and improved off antibiotics. Multiple etiologies for hypoxemia outside of pneumonia including structural lung disease, compressive atelectasis, and hypercarbia. Cont pulmonary toilet efforts and wean oxygen as tolerated. Hypoxia has improved and he is oxygenating 97% on 2LPM at this time. Cont to wean as tolerated. (2) Pneumonia: Plan: ruled out. Plan as above. Patient not interested in aggressive workups at this time. May consider outpatient follow-up; options were discussed with his daughter by phone. (3) Acute metabolic encephalopathy: Plan: resolved. (4) Acute kidney injury: Plan: resolved. Encouraging PO intake. (5) Delirium: Plan: Resolved. Reorient as needed. Keep good day/night cycles. (6) Chronic diastolic (congestive) heart failure: Plan: Compensated. No evidence of edema on CXR, no weight gain or swelling apparent. BNP low. Cont Lasix per home regimen. (7) HTN (hypertension): Plan: BP elevated 2/2 agitation-improved today. Cont amlodipine per home regimen (8) Psoriatic arthritis: Plan: Follows with [facility] Rheumatology. immunosuppression from chronic steroid use. Cont chronic daily prednisone. (9) PAF (paroxysmal atrial fibrillation): Plan: Currently in sinus rhythm, on metoprolol. No AC 2/2 fall risk per records. (10) DVT prophylaxis: Plan: Lovenox DNR Dispo-back to [facility] next week [facility] Hospice care in place after the weekend. Jie Dick DO [facility] Hospitalist Admission and Anticipated Discharge Date Admission Date: May 03, 2021 Subjective 89 yo M presents with acute metabolic encephalopathy and hypoxia that has worsened since recent hospitalization. Baseline mental status Reports feeling fine Denies any respiratory symptoms Afebrile Tolerating PO 97% on 2LPM via nasal canula. Review of Systems Review of Systems: All systems were reviewed and negative except as indicated above. Physical Exam Physical Exam: CONSTITUTIONAL: WNWD, vitals as above, generally NAD EYES: normal conjunctivae, no scleral icterus ENT: external ear and nose normal, MMM NECK: trachea midline RESPIRATORY: Clear to auscultation throughout, no rales or wheezes, normal respiratory effort CARDIOVASCULAR: regular rate and rhythm, S1 and 2 heard without murmurs, gallops or rubs, no JVD, no peripheral edema GASTROINTESTINAL: soft, nontender, ND, no guarding MUSCULOSKELETAL: strength 5/5 throughout, moves all extremities equally. head is normocephalic and atraumatic SKIN: warm and dry, NEUROLOGIC: No facial palsy, no dysarthria. CN 2-12 grossly intact, normal cognition, normal speech, no tremor. No gross focal deficits. PSYCHIATRIC: alert cooperative and oriented to person and place. Results & Data Results & Data ([facility]) Vital Signs (Past 12 Hours) Vital Signs Temp Pulse Pulse Resp BP BP Pulse Ox 05/07/21 12:00 36.2 C L 86 20 148/87 H 97 05/07/21 07:48 37.0 C 96 H 20 149/74 H 91 05/07/21 07:06 95 H 05/07/21 04:00 37.0 C 92 H 18 148/83 H 92 Medications Administered Current Inpatient Medications Acetaminophen (Acetaminophen 325 Mg Tab) 650 mg PO Q4H PRN PRN Reason: Pain or Fever Stop: 06/03/21 00:40 Last Admin: 05/04/21 23:26 Dose: 650 mg Documented by: Allopurinol (Allopurinol 300 Mg Tab) 300 mg PO [facility] Stop: 06/03/21 08:59 Last Admin: 05/07/21 09:26 Dose: 300 mg Documented by: Amlodipine Besylate (Amlodipine Besylate 5 Mg Tab) 10 mg PO [facility] Stop: 06/03/21 08:59 Last Admin: 05/07/21 09:25 Dose: 10 mg Documented by: Atorvastatin Calcium (Atorvastatin 40 Mg Tab) 40 mg PO [facility] Stop: 06/03/21 20:59 Last Admin: 05/06/21 20:38 Dose: 40 mg Documented by: Clopidogrel Bisulfate (Clopidogrel Bisulfate 75 Mg Tab) 75 mg PO [facility] Stop: 06/03/21 08:59 Last Admin: 05/07/21 09:25 Dose: 75 mg Documented by: Dextrose (Dextrose 50% 50 Ml Syringe) 25 - 50 ml IV UD PRN; Protocol PRN Reason: Hypoglycemia Protocol Stop: 06/02/21 22:53 Docusate Sodium (Docusate Sodium 100 Mg Cap) 200 mg PO Q12 PRN PRN Reason: Constipation Stop: 06/03/21 01:26 Enoxaparin Sodium (Enoxaparin Inj 40 Mg/0.4 Ml Syr) [facility] Stop: 06/05/21 08:59 Last Admin: 05/07/21 09:35 Dose: 40 mg Documented by: Finasteride (Finasteride 5 Mg Tab) 5 mg PO QAM [facility] Stop: 06/03/21 08:59 Last Admin: 05/07/21 09:35 Dose: 5 mg Documented by: Glucagon (Glucagon For Inj 1 Mg Vial) 1 mg SQ UD PRN; Protocol PRN Reason: Hypoglycemia Protocol Stop: 06/02/21 22:53 Glucose (Glucose 10 Tabs/Tube) 4 - 8 tabs PO UD PRN; Protocol PRN Reason: Hypoglycemia Protocol Stop: 06/02/21 22:53 Glucose (Glucose 40% Gel 15 Gm Tube) 15 - 30 gm PO UD PRN; Protocol PRN Reason: Hypoglycemia Protocol Stop: 06/02/21 22:53 Insulin Aspart (Insulin Aspart Per Unit) 0 units SC ACHS [facility] Stop: 06/02/21 22:54 Last Admin: 05/07/21 12:56 Dose: 2 units Documented by: Insulin Glargine (Insulin Glargine Solostar 100 Units/Ml 3 Ml Pen) 5 units SC HS [facility] Stop: 06/03/21 20:59 Last Admin: 05/06/21 20:35 Dose: 5 units Documented by: Levothyroxine Sodium (Levothyroxine Sodium 75 Mcg Tablet) 75 mcg PO DAILYBB [facility] Stop: 06/03/21 06:29 Last Admin: 05/07/21 06:26 Dose: Not Given Documented by: Melatonin (Melatonin 3 Mg Tab) 3 mg PO HS PRN PRN Reason: Sleep Stop: 06/03/21 22:21 Last Admin: 05/05/21 01:53 Dose: 3 mg Documented by: Metoprolol Succinate (Metoprolol Succ 50mg Ext Rel Tab) [facility] Stop: 06/06/21 08:59 Last Admin: 05/07/21 09:24 Dose: 50 mg Documented by: Miscellaneous (Carbohydrates For Hypoglycemia ) 15 - 30 gm PO UD PRN PRN Reason: Hypoglycemia Protocol Stop: 06/02/21 22:53 Miscellaneous (Salonpas~Order Awaiting Action) 1 ea N/A QS [facility] Stop: 06/03/21 07:59 Last Admin: 05/07/21 09:24 Dose: Not Given Documented by: Prednisone (Prednisone 5 Mg Tab) 5 mg PO DAILY [facility] Stop: 06/04/21 08:59 Last Admin: 05/07/21 09:36 Dose: 5 mg Documented by: Tamsulosin HCl (Tamsulosin Hcl 0.4 Mg Cap) 0.4 mg PO HS [facility] Stop: 06/03/21 20:59 Last Admin: 05/06/21 20:38 Dose: 0.4 mg Documented by: (1) Pneumonia Laterality: bilateral Lung location: unspecified part of lung Pneumonia type: due to unspecified organism Qualified Code(s): J18.9 - Pneumonia, unspecified organism
[2021-05-07] MEDS ORDERED: WHITE PETROLATUM TOP PRN (18:10)
[2021-05-07] MEDS: Ipratropium HFA Inhaler (Combivent Respimat P&T Subs) INH SCH (19:54)
[2021-05-07] MEDS: Albuterol HFA 8 GM Inhaler (Combivent Respimat P&T Subs) INH SCH (19:54)
[2021-05-07] MEDS: ATORVASTATIN 40 MG TAB PO SCH (20:54)
[2021-05-07] MEDS: TAMSULOSIN HCL 0.4 MG CAP PO SCH (20:54)
[2021-05-07] MEDS: GABAPENTIN 300 MG CAP PO SCH (20:55)
[2021-05-07] MEDS: MIRTAZAPINE TAB 15 MG TAB PO SCH (20:55)
[2021-05-07] MEDS ORDERED: IPRATROPIUM BROMIDE/ALBUTEROL respimat INH INH SCH (21:00)
--- NOTE | 2021-05-08 01:32 | Communication Note ---
Date of Service: May 08, 2021 Patient with episodic bradycardia as per RN. Possible AV block on the monitor as per RN. Patient agitated and refusing EKG and blood work. Hold beta-lilly for now. Will relay to AM provider.
[2021-05-08] MEDS ORDERED: POTASSIUM CHLORIDE PWD 20 MEQ PACK PO STA (01:33)
[2021-05-08] MEDS: LEVOTHYROXINE SODIUM 75 MCG TABLET PO SCH (05:26)
[2021-05-08] MEDS: Albuterol HFA 8 GM Inhaler (Combivent Respimat P&T Subs) INH SCH (07:01)
[2021-05-08] MEDS: Ipratropium HFA Inhaler (Combivent Respimat P&T Subs) INH SCH (07:01)
[2021-05-08] MEDS: CLOPIDOGREL BISULFATE 75 MG TAB PO SCH (09:01)
[2021-05-08] MEDS: GABAPENTIN 300 MG CAP PO SCH ×3 (09:01→23:24)
[2021-05-08] MEDS: predniSONE 5 MG TAB PO SCH (09:01)
[2021-05-08] MEDS: FINASTERIDE 5 MG TAB PO SCH (09:01)
[2021-05-08] MEDS: FLUTICASONE FUROATE 200MCG 14 PUFFS/INHALER INH SCH (09:03)
[2021-05-08] MEDS: allopurinoL 300 MG TAB PO SCH (09:03)
[2021-05-08] MEDS: INSULIN ASPART PER UNIT SC SCH ×4 (09:05→23:36)
[2021-05-08] MEDS: amLODIPine BESYLATE 5 MG TAB PO SCH (09:08)
[2021-05-08 09:15] LABS: Basophils # (auto) 0.02 K/uL (0-0.2); Basophils % (auto) 0.3 %; Eosinophils # (auto) 0.24 K/uL (0-0.5); Eosinophils % (auto) 3.8 %; Hematocrit (blood only) 41.7 % (42-52); Hemoglobin 13.1 g/dL (14.0-18.0); Immature Granulocytes # (auto) 0.02 K/uL (0.00-0.02); Immature Granulocytes % (auto) 0.3 %; Lymphocytes # (auto) 1.58 K/uL (1.2-3.4); Lymphocytes % (auto) 25.2 %; Mean Corpuscular Hemoglobin 28.9 pg (25-34); Mean Corpuscular Hgb Conc 31.4 g/dL (32-36); Mean Corpuscular Volume 92.1 fL (80-100); Mean Platelet Volume 9.9 fL (7.4-10.4); Monocytes # (auto) 0.34 K/uL (0.11-0.59); Monocytes % (auto) 5.4 %; Neutrophils # (auto) 4.06 K/uL (1.4-6.5); Platelet Count 176 K/uL (130-400); RDW Coefficient of Variation 16.3 % (11.5-14.5); RDW Standard Deviation 54.8 fL (36.4-46.3); Red Blood Count 4.53 M/uL (4.7-6.1); White Blood Count 6.26 K/uL (4.8-10.8)
[2021-05-08 09:33] LABS: BUN Creatinine Ratio 23.9 (10-20); Calcium 8.1 mg/dl (8.5-10.1); Creatinine Clr Calc Pharmacy 45.6 ml/min; Est GFR (African American) 63.7 ml/min; Est GFR (Non-African American) 54.9 ml/min; Magnesium 1.9 mg/dl (1.7-2.4); Potassium 3.5 mmol/L (3.5-5.1)
[2021-05-08 10:11] LABS: Thyroid Stimulating Hormone 5.236 uIu/ml (0.300-4.500)
[2021-05-08 10:45] LABS: T4 Free Thyroxine 1.16 ng/dl (0.61-1.60)
[2021-05-08] MEDS: ENOXAPARIN INJ 40 MG/0.4 ML SYR SQ SCH (10:56)
--- NOTE | 2021-05-08 13:31 | Hospitalist Progress Note ---
Date of Service May 08, 2021 Assessment & Plan (1) Acute respiratory failure: Plan: Required BIPAP on admission for hypercapnia and obtunded state, followed by combativeness with severe hypoxia for several hours, then ok with supplemental oxygen via nasal canula. Overnight oxygen needs and mental status has improved. Pulm consulted and not convinced this is infectious, and I agree in the absence of fever and elevated procalcitonin. Recent speech eval with no kevin aspiration. No need for additional evaluation of swallowing at this time. Afebrile and improved off antibiotics. Multiple etiologies for hypoxemia outside of pneumonia including structural lung disease, compressive atelectasis, and hypercarbia. Cont pulmonary toilet efforts and wean oxygen as tolerated. Hypoxia has improved and he is oxygenating 97% on 2LPM at this time. Cont to wean as tolerated. He is stable and cleared for discharge. Consider outpatient pulmonary follow-up. (2) Pneumonia: Plan: ruled out. Plan as above. Patient not interested in aggressive workups at this time. May consider outpatient follow-up; options were discussed with his daughter by phone. (3) Acute metabolic encephalopathy: Plan: resolved. (4) Acute kidney injury: Plan: resolved. Encouraging PO intake. (5) Delirium: Plan: Resolved. Reorient as needed. Keep good day/night cycles. (6) Chronic diastolic (congestive) heart failure: Plan: Compensated. No evidence of edema on CXR, no weight gain or swelling apparent. BNP low. Cont Lasix per home regimen. (7) HTN (hypertension): Plan: BP elevated 2/2 agitation-improved today. Cont amlodipine per home regimen (8) Psoriatic arthritis: Plan: Follows with [facility]. immunosuppression from chronic steroid use. Cont chronic daily prednisone. (9) PAF (paroxysmal atrial fibrillation): Plan: Currently in sinus rhythm, on metoprolol. No AC 2/2 fall risk per records. Transient Wenkebach on telemetry overnight for a few seconds, and back to sinus rhythm wtih 1AVB and LBBB on EKG this am. No further investigation at this time. Will keep him on telemetry for continued monitoring. (10) DVT prophylaxis: Plan: Lovenox DNR Dispo-back to [facility] likely tomorrow. Was going to go today but Hospice needed time for the hospital bed to be delivered. Jie Dick DO [facility] Hospitalist Admission and Anticipated Discharge Date Admission Date: May 03, 2021 Subjective 89 yo M presents with acute metabolic encephalopathy and hypoxia that has worsened since recent hospitalization. Baseline mental status Reports feeling fine Denies any respiratory symptoms transient Wenkebach rhythm on telemetry overnight but back to 1 AV block and LBB on EKG this am. Afebrile Tolerating PO 97% on 2LPM via nasal canula. Review of Systems Review of Systems: All systems were reviewed and negative except as indicated above. Physical Exam Physical Exam: CONSTITUTIONAL: WNWD, vitals as above, generally NAD EYES: normal conjunctivae, no scleral icterus ENT: external ear and nose normal, MMM NECK: trachea midline RESPIRATORY: Clear to auscultation throughout, no rales or wheezes, normal respiratory effort CARDIOVASCULAR: regular rate and rhythm, S1 and 2 heard without murmurs, gallops or rubs, no JVD, no peripheral edema GASTROINTESTINAL: soft, nontender, ND, no guarding MUSCULOSKELETAL: strength 5/5 throughout, moves all extremities equally. head is normocephalic and atraumatic SKIN: warm and dry, NEUROLOGIC: No facial palsy, no dysarthria. CN 2-12 grossly intact, normal cognition, normal speech, no tremor. No gross focal deficits. PSYCHIATRIC: alert cooperative and oriented to person and place. Results & Data Results & Data ([facility]) Vital Signs (Past 12 Hours) Vital Signs Temp Pulse Resp BP Pulse Ox 05/08/21 08:05 36.9 C 93 H 20 165/74 H 90 05/08/21 07:24 94 05/08/21 07:02 89 18 83 L Laboratory Results Short CBC 05/08/21 Range/Units 08:50 WBC 6.26 (4.8-10.8) K/uL Hgb 13.1 L (14.0-18.0) g/dL Hct 41.7 L (42-52) % Plt Count 176 (130-400) K/uL BMP 05/08/21 08:50 Sodium 139 Potassium 3.5 Chloride 106 Carbon Dioxide 26 BUN 28 H Creatinine 1.17 Glucose 198 H Calcium 8.1 L Medications Administered Current Inpatient Medications Acetaminophen (Acetaminophen 325 Mg Tab) 650 mg PO Q4H PRN PRN Reason: Pain or Fever Stop: 06/03/21 00:40 Last Admin: 05/04/21 23:26 Dose: 650 mg Documented by: Albuterol (Albuterol Hfa 8 Gm Inhaler (Combivent Respimat P&T Subs)) 1 puffs INH BIDR [facility] Stop: 06/06/21 18:59 Last Admin: 05/08/21 07:01 Dose: 1 puffs Documented by: Allopurinol (Allopurinol 300 Mg Tab) 300 mg PO QAM [facility] Stop: 06/03/21 08:59 Last Admin: 05/08/21 09:03 Dose: 300 mg Documented by: Amlodipine Besylate (Amlodipine Besylate 5 Mg Tab) 10 mg PO QAM [facility] Stop: 06/03/21 08:59 Last Admin: 05/08/21 09:08 Dose: 10 mg Documented by: Atorvastatin Calcium (Atorvastatin 40 Mg Tab) 40 mg PO HS [facility] Stop: 06/03/21 20:59 Last Admin: 05/07/21 20:54 Dose: 40 mg Documented by: Clopidogrel Bisulfate (Clopidogrel Bisulfate 75 Mg Tab) [facility] [facility]: 06/03/21 08:59 Last Admin: 05/08/21 09:01 Dose: 75 mg Documented by: Dextrose (Dextrose 50% 50 Ml Syringe) 25 - 50 ml IV UD PRN; Protocol PRN Reason: Hypoglycemia Protocol Stop: 06/02/21 22:53 Docusate Sodium (Docusate Sodium 100 Mg Cap) 200 mg PO Q12 PRN PRN Reason: Constipation Stop: 06/03/21 01:26 Enoxaparin Sodium (Enoxaparin Inj 40 Mg/0.4 Ml Syr) 40 mg SQ QAM [facility] Stop: 06/05/21 08:59 Last Admin: 05/08/21 10:56 Dose: 40 mg Documented by: Finasteride (Finasteride 5 Mg Tab) 5 mg PO QAM [facility] Stop: 06/03/21 08:59 Last Admin: 05/08/21 09:01 Dose: 5 mg Documented by: Fluticasone Furoate (Fluticasone Furoate 200mcg 14 Puffs/Inhaler) 1 puffs INH DAILY [facility] Stop: 06/07/21 08:59 Last Admin: 05/08/21 09:03 Dose: 1 puffs Documented by: Gabapentin (Gabapentin 300 Mg Cap) 300 mg PO TID [facility] Stop: 06/06/21 20:59 Last Admin: 05/08/21 12:19 Dose: 300 mg Documented by: Glucagon (Glucagon For Inj 1 Mg Vial) 1 mg SQ UD PRN; Protocol PRN Reason: Hypoglycemia Protocol Stop: 06/02/21 22:53 Glucose (Glucose 10 Tabs/Tube) 4 - 8 tabs PO UD PRN; Protocol PRN Reason: Hypoglycemia Protocol Stop: 06/02/21 22:53 Glucose (Glucose 40% Gel 15 Gm Tube) 15 - 30 gm PO UD PRN; Protocol PRN Reason: Hypoglycemia Protocol Stop: 06/02/21 22:53 Insulin Aspart (Insulin Aspart Per Unit) 0 units SC ACHS [facility] Stop: 06/02/21 22:54 Last Admin: 05/08/21 12:18 Dose: 2 units Documented by: Ipratropium [place] (Ipratropium Hfa Inhaler (Combivent Respimat P&T Subs)) 1 puffs INH BIDR [facility] Stop: 06/06/21 18:59 Last Admin: 05/08/21 07:01 Dose: 1 puffs Documented by: Levothyroxine Sodium (Levothyroxine Sodium 75 Mcg Tablet) 75 mcg PO DAILYBB [facility] Stop: 06/03/21 06:29 Last Admin: 05/08/21 05:26 Dose: Not Given Documented by: Melatonin (Melatonin 3 Mg Tab) 3 mg PO HS PRN PRN Reason: Sleep Stop: 06/03/21 22:21 Last Admin: 05/05/21 01:53 Dose: 3 mg Documented by: Metoprolol Succinate (Metoprolol Succ 50mg Ext Rel Tab) 50 mg PO QAM [facility] Stop: 06/06/21 08:59 Last Admin: 05/07/21 09:24 Dose: 50 mg Documented by: Mirtazapine (Mirtazapine Tab 15 Mg Tab) 7.5 mg PO HS [facility] Stop: 06/06/21 20:59 Last Admin: 05/07/21 20:55 Dose: 7.5 mg Documented by: Miscellaneous (Carbohydrates For Hypoglycemia ) 15 - 30 gm PO UD PRN PRN Reason: Hypoglycemia Protocol Stop: 06/02/21 22:53 Miscellaneous (Salonpas~Order Awaiting Action) 1 ea N/A QS [facility] Stop: 06/03/21 07:59 Last Admin: 05/08/21 09:01 Dose: Not Given Documented by: Prednisone (Prednisone 5 Mg Tab) 5 mg PO DAILY [facility] Stop: 06/04/21 08:59 Last Admin: 05/08/21 09:01 Dose: 5 mg Documented by: Tamsulosin HCl (Tamsulosin Hcl 0.4 Mg Cap) 0.4 mg PO HS [facility] Stop: 06/03/21 20:59 Last Admin: 05/07/21 20:54 Dose: 0.4 mg Documented by: (1) Pneumonia Laterality: bilateral Lung location: unspecified part of lung Pneumonia type: due to unspecified organism Qualified Code(s): J18.9 - Pneumonia, unspecified organism
--- NOTE | 2021-05-08 13:46 | Electrocardiogram Report ---
Test Reason : Blood Pressure : / mmHG Vent. Rate : 087 BPM Atrial Rate : 087 BPM P-R Int : 256 ms QRS Dur : 122 ms QT Int : 398 ms P-R-T Axes : 096 -46 053 degrees QTc Int : 478 ms Sinus rhythm with 1st degree A-V block Left axis deviation Incomplete left bundle block Abnormal ECG When compared with ECG of 03-MAY-2021 16:53, QRS duration has increased Confirmed by Hermilo Dent ([id number] on 05/08/2021 1:45:48 PM Referred By: José Aguilar [place] Confirmed By:Hermilo Dent
[2021-05-08] MEDS: TAMSULOSIN HCL 0.4 MG CAP PO SCH (23:22)
[2021-05-08] MEDS: MIRTAZAPINE TAB 15 MG TAB PO SCH (23:23)
[2021-05-08] MEDS: ATORVASTATIN 40 MG TAB PO SCH (23:24)
[2021-05-09] MEDS: Albuterol HFA 8 GM Inhaler (Combivent Respimat P&T Subs) INH SCH ×2 (01:01→08:18)
[2021-05-09] MEDS: Ipratropium HFA Inhaler (Combivent Respimat P&T Subs) INH SCH ×2 (01:01→08:18)
[2021-05-09] MEDS: LEVOTHYROXINE SODIUM 75 MCG TABLET PO SCH (06:20)
[2021-05-09] MEDS: allopurinoL 300 MG TAB PO SCH (08:07)
[2021-05-09] MEDS: FINASTERIDE 5 MG TAB PO SCH (08:07)
[2021-05-09] MEDS: FLUTICASONE FUROATE 200MCG 14 PUFFS/INHALER INH SCH (08:07)
[2021-05-09] MEDS: GABAPENTIN 300 MG CAP PO SCH (08:07)
[2021-05-09] MEDS: amLODIPine BESYLATE 5 MG TAB PO SCH (08:07)
[2021-05-09] MEDS: CLOPIDOGREL BISULFATE 75 MG TAB PO SCH (08:07)
[2021-05-09] MEDS: ENOXAPARIN INJ 40 MG/0.4 ML SYR SQ SCH (08:07)
[2021-05-09] MEDS: predniSONE 5 MG TAB PO SCH (08:08)
[2021-05-09] MEDS: INSULIN ASPART PER UNIT SC SCH (08:35)
--- NOTE | 2021-05-09 10:37 | Discharge Summary ---
Date of Service May 09, 2021 Admission HPI Per Admitting Provider Patient is 89-year-old male with PMH COPD, CKD III, chronic diastolic heart failure, HTN, h/o atrial flutter, PVD presented to ER for hypoxia. History is obtained from patient's daughter secondary to patient's current mental status. Patient previously requiring oxygen only at night. Daughter reports patient has been requiring 2 L oxygen during the daytime recently at [facility]. She reports today you have lavon had stated patient had low-grade fever and oxygen level was in the 70s. Is unaware of any choking episodes. Reports yesterday patient seemed to be at his most recent baseline and was alert and oriented to person and place. Unaware of any vomiting or diarrhea. Today patient with altered mental status. Patient with recent admission 03/10/21 -03/24/21 for altered mental status in setting of multifocal pneumonia with positive MRSA screen. During that admission he received vancomycin, Zosyn which was changed to Augmentin and doxycycline. Received IV Vanco and Zosyn which was deescalated to Augmentin and doxycycline. Underwent video swallow, which showed no significant laryngeal penetration or aspiration. Patient was weaned off of daytime oxygen and discharged back to [facility] Hospitalization 04/13/2021-04/20/2021 for hypoxia and disorientation. 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 He had no leukocytosis and a normal procalcitonin. He was given vancomycin cefepime and Flagyl for coverage of possible aspiration pneumonia. He was given 1 dose of Lasix for lower extremity swelling which also may have been related to amlodipine use. He underwent a video swallow study revealing no significant laryngeal penetration or aspiration. Of note: was discharged on amlodipine 5mg daily and lasix 40mg daily. Current med list from [facility] has amlodipine 10mg daily and lasix 40mg on saturday, , , sat schedule Today in ER T: 37.7C, BP 130/71, R: 25, P: 90, 84% on 4 L nasal cannula up to 93% on high flow. No leukocytosis. Lactate: 1.9, procalcitonin: 0.24 In ER was given Zosyn, vancomycin Admission Exam Per Admitting Provider General: +acute distress, restless, chronically ill appearing elderly male Head: normocephalic, atraumatic Eyes: PERRL, EOM's intact, conjunctiva non-injected, anicteric ENT: normal inspection external ears, nose, mucous membranes moist Neck: supple, trachea midline Lungs: + respiratory distress, increased respirations, +diminished breath sounds throughout CV: RRR, + murmur, 1+ pretibial edema Abd: normal BS, soft, no apparent tenderness to palpaiton Ext: no cyanosis, noted to be moving arms and legs Neuro: disoriented, restless, awake, not following commands Skin: warm, dry Principal Diagnosis Acute respiratory failure with acute metabolic encephalopathy-resolved Discharge Exam CONSTITUTIONAL: WNWD, vitals as above, generally NAD EYES: normal conjunctivae, no scleral icterus ENT: external ear and nose normal, MMM NECK: trachea midline RESPIRATORY: Clear to auscultation throughout, no rales or wheezes, normal respiratory effort CARDIOVASCULAR: regular rate and rhythm, S1 and 2 heard without murmurs, gallops or rubs, no JVD, no peripheral edema GASTROINTESTINAL: soft, nontender, ND, no guarding MUSCULOSKELETAL: strength 5/5 throughout, moves all extremities equally. head is normocephalic and atraumatic SKIN: warm and dry, NEUROLOGIC: No facial palsy, no dysarthria. CN 2-12 grossly intact, normal cognition, normal speech, no tremor. No gross focal deficits. PSYCHIATRIC: alert cooperative and oriented to person and place. Discharge Data Allergies Allergy/AdvReac Type Severity Reaction Status Date / Time iodine Allergy Unknown Unknown Verified 05/03/21 17:39 [place] And Derivatives AdvReac Intermediate Abdominal Verified 05/03/21 17:39 pain (citrus juice) tomato AdvReac Intermediate Headache Verified 05/03/21 17:39 (tomato juice) colchicine AdvReac Mild GI upset Verified 05/03/21 17:39 morphine AdvReac Unknown "out of Verified 05/03/21 17:39 it" x days Consultations 05/03/21 19:51 ED Decision to Admit Stat 05/05/21 00:12 Consult Pulmonology Routine Ordered Studies Laboratory Results WBC 6.26 K/uL (4.8-10.8) 05/08/21 08:50 RBC 4.53 M/uL (4.7-6.1) L 05/08/21 08:50 Hgb 13.1 g/dL (14.0-18.0) L 05/08/21 08:50 Hct 41.7 % (42-52) L 05/08/21 08:50 MCV 92.1 fL (80-100) 05/08/21 08:50 MCH 28.9 pg (25-34) 05/08/21 08:50 MCHC 31.4 g/dL (32-36) L 05/08/21 08:50 RDW Std Deviation 54.8 fL (36.4-46.3) H 05/08/21 08:50 RDW Coeff of Morris 16.3 % (11.5-14.5) H 05/08/21 08:50 Plt Count 176 K/uL (130-400) 05/08/21 08:50 MPV 9.9 fL (7.4-10.4) 05/08/21 08:50 Immature Gran % (Auto) 0.3 % 05/08/21 08:50 Neut % (Auto) 65.0 % 05/08/21 08:50 Lymph % (Auto) 25.2 % 05/08/21 08:50 [place] % (Auto) 5.4 % 05/08/21 08:50 Eos % (Auto) 3.8 % 05/08/21 08:50 Baso % (Auto) 0.3 % 05/08/21 08:50 Neut # (Auto) 4.06 K/uL (1.4-6.5) 05/08/21 08:50 Lymph # (Auto) 1.58 K/uL (1.2-3.4) 05/08/21 08:50 [place] # (Auto) 0.34 K/uL (0.11-0.59) 05/08/21 08:50 Eos # (Auto) 0.24 K/uL (0-0.5) 05/08/21 08:50 Baso # (Auto) 0.02 K/uL (0-0.2) 05/08/21 08:50 Immature Gran # (Auto) 0.02 K/uL (0.00-0.02) 05/08/21 08:50 PT 11.0 Seconds (9.0-12.0) 05/03/21 17:59 INR 1.1 (0.9-1.1) 05/03/21 17:59 APTT 24.5 Seconds (21.0-31.0) 05/03/21 17:59 PTT Ratio 0.9 05/03/21 17:59 ABG pH 7.35 (7.35-7.45) 05/03/21 23:30 ABG pCO2 61 mmHg (35-46) H 05/03/21 23:30 ABG pO2 69 mmHg (80-95) L 05/03/21 23:30 ABG HCO3 33 mmol/L (19-24) H 05/03/21 23:30 ABG O2 Saturation 94.0 % (90-95) 05/03/21 23:30 ABG Base Excess 5.6 mEq/L (-9-1.8) H 05/03/21 23:30 Santos Test POS (Pos) 05/03/21 23:30 VBG pH 7.34 (7.36-7.41) L 05/03/21 19:48 VBG pCO2 67 mmHg (38-50) H 05/03/21 19:48 VBG pO2 37 mmHg 05/03/21 19:48 VBG HCO3 35 mmol/L 05/03/21 19:48 VBG O2 Saturation 68.3 % 05/03/21 19:48 VBG Base Excess 7.1 mEq/L 05/03/21 19:48 Barometric Pressure 732.2 mm/Hg 05/03/21 23:30 Oxygen Given 60% FIO2 05/03/21 23:30 Sodium 139 mmol/L (136-145) 05/08/21 08:50 Potassium 3.5 mmol/L (3.5-5.1) 05/08/21 08:50 Chloride 106 mmol/L (98-107) 05/08/21 08:50 Carbon Dioxide 26 mmol/L (21-32) 05/08/21 08:50 Anion Gap 7 (3-11) 05/08/21 08:50 BUN 28 mg/dl (6-23) H 05/08/21 08:50 Creatinine 1.17 mg/dl (0.6-1.4) 05/08/21 08:50 Est Cr Clr Drug Dosing 45.6 ml/min 05/08/21 08:50 Est GFR ( Amer) 63.7 ml/min 05/08/21 08:50 Est GFR (Non-Af Amer) 54.9 ml/min 05/08/21 08:50 BUN/Creatinine Ratio 23.9 (10-20) H 05/08/21 08:50 Glucose 198 mg/dl (70-99(Fasting)) H 05/08/21 08:50 POC Glucose 101 mg/dl (70-99) H 05/09/21 08:00 Estimat Average Glucose 143 mg/dl 05/03/21 17:05 Hemoglobin A1c 6.6 % (4.5-5.6) H 05/03/21 17:05 Lactate 1.9 mmol/L (0.4-2.0) 05/03/21 17:59 Calcium 8.1 mg/dl (8.5-10.1) L 05/08/21 08:50 Phosphorus 1.7 mg/dl (2.5-4.9) L 05/05/21 07:14 Magnesium 1.9 mg/dl (1.7-2.4) 05/08/21 08:50 Total Bilirubin 0.7 mg/dl (0.2-1.0) 05/03/21 17:59 AST 16 U/L (13-39) 05/03/21 17:59 ALT 14 U/L (7-52) 05/03/21 17:59 Alkaline Phosphatase 75 U/L (34-104) 05/03/21 17:59 Ammonia 17.0 umol/L (18-72) L 05/03/21 23:30 Troponin I 0.05 ng/ml (0-0.04) H* 05/04/21 04:37 B-Natriuretic Peptide 328 pg/ml (0-100) H 05/05/21 07:14 Total Protein 6.4 gm/dl (6.0-8.3) 05/03/21 17:59 Albumin 3.4 gm/dl (3.4-5.0) 05/03/21 17:59 Globulin 3.0 gm/dl (2.5-4.0) 05/03/21 17:59 Albumin/Globulin Ratio 1.1 (0.9-2) 05/03/21 17:59 Lipase 30 U/L (11-82) 05/03/21 17:59 Procalcitonin 0.17 ng/ml (0-0.5) 05/05/21 07:14 TSH 5.236 uIu/ml (0.300-4.500) H 05/08/21 08:50 Free T4 1.16 ng/dl (0.61-1.60) 05/08/21 08:50 Urine Color Yellow 05/03/21 19:54 Urine Appearance Clear (Clear) 05/03/21 19:54 Urine pH 7.0 (4.5-7.5) 05/03/21 19:54 Ur Specific Hoyt 1.018 (1.000-1.030) 05/03/21 19:54 Urine Protein 1+ (Negative) H 05/03/21 19:54 Urine Glucose (UA) Negative (Negative) 05/03/21 19:54 Urine Ketones Negative (Negative) 05/03/21 19:54 Urine Blood Trace (Negative) H 05/03/21 19:54 Urine Nitrite Negative (Negative) 05/03/21 19:54 Urine Bilirubin Negative (Negative) 05/03/21 19:54 Urine Urobilinogen Negative (Negative) 05/03/21 19:54 Ur Leukocyte Esterase Negative (Negative) 05/03/21 19:54 Urine WBC (Auto) 1-5 /hpf (0-5) 05/03/21 19:54 Urine RBC (Auto) 0-4 /hpf (0-4) 05/03/21 19:54 U Hyaline Cast (Auto) 5-10 /lpf (0-5) H 05/03/21 19:54 U Epithel Cells (Auto) 5-10 /lpf (0-5) H 05/03/21 19:54 Urine Bacteria (Auto) Negative (Negative) 05/03/21 19:54 SARS-CoV-2 (PCR) NEGATIVE (Negative) 05/03/21 16:57 Influenza Type A (PCR) Negative (Neg) 05/03/21 16:57 Influenza Type B (PCR) Negative (Neg) 05/03/21 16:57 RSV (RT-PCR) Negative (Neg) 05/03/21 16:57 Impressions Chest X-Ray 05/03/21 17:02 XR chest 1V portable HISTORY: 89 years-old Male SEPSIS acute sepsis with shortness of breath COMPARISON: Chest CT and chest radiograph 04/13/2021 TECHNIQUE: Portable AP view of the chest FINDINGS: Unchanged cardiomegaly. Asbestos related pleural disease redemonstrated with unchanged bibasilar and infrahilar consolidation with reticular interstitial coarsening. There is no pneumothorax or large pleural effusion. No overt pulmonary edema. There are mildly progressed ill-defined interstitial opacities of the right midlung and left lung base. Degenerative changes of the shoulders and spine. Hiatal hernia. Aortic endograft. IMPRESSION: 1. 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 2. Mildly progressed interstitial coarsening of the right midlung and left lung base is suspicious for a superimposed infectious or inflammatory pneumonitis. 3. Hiatal hernia. ACT 112: Negative or not required by law. The above report was generated using voice recognition software. It may contain grammatical, syntax or spelling errors. Electronically signed by: Bang Carlos M.D. 05/03/2021 5:[address] 05/03/21 18:29 CT head/brain wo con CLINICAL HISTORY: 89 years-old Male with ams. Acutely altered mental status TECHNIQUE: Multiple axial CT images of the head were obtained without contrast. A dose lowering technique was utilized adhering to the principles of ALARA. CT DOSE: 1662.54 mGy.cm COMPARISON: None. FINDINGS: Limited exam secondary to positioning. No acute intracranial hemorrhage, midline shift, intracranial mass, hydrocephalus, territorial ischemia or abnormal extra- axial collection. Age-related involutional changes with white matter hypodensities suggestive of chronic microvascular ischemic disease. Unchanged expected ventriculomegaly. Cerebral vascular and senescent basal ganglia calcifications. The calvarium is intact. Developmental incomplete bony fusion involves the posterior arch of C1. Prior bilateral lens repair. The paranasal sinuses, mastoid air cells, and middle ear cavities are clear. IMPRESSION: No acute intracranial abnormality. ACT 112: Negative or not required by law. The above report was generated using voice recognition software. It may contain grammatical, syntax or spelling errors. Electronically signed by: Bang Carlos M.D. 05/03/2021 7:47 PM Hospital Course (1) Acute respiratory failure: Required BIPAP on admission for hypercapnia and obtunded state, followed by combativeness with severe hypoxia for several hours, then ok with supplemental oxygen via nasal canula. As supplemental oxygen was allowed, delirium resolved, overnight oxygen needs and mental status improved. Pulm was consulted and not convinced this was an infectious pneumonia driving his hypoxia in the absence of fever and elevated procalcitonin. A speech path evaluation during a recent hospitalization revealed no kevin aspiration although there were definite aspiration risks noted. No need for additional evaluation of swallowing at this time. Afebrile and improved off antibiotics. Multiple etiologies for hypoxemia were considered outside of pneumonia including s tructural lung disease, compressive atelectasis, and hypercarbia. Pulmonary toilet efforts and supplemental oxygen was continued. Hypoxia has improved and he was oxygenating 97% on 2LPM at this time. At time of discharge he was stable sent home with close primary care followup recommended and consideration with outpatient pulmonology should he reconsider a more aggressive workup which he declined inpatient. After a thorough discussion with his daughter, he was considered for hospice status, especially with multiple recent hospitalizations. A hospice international account representative met with the patient and family prior to discharge and he will likely convert to hospice after discharge back to personal snf. (2) Acute metabolic encephalopathy: (3) Acute kidney injury: (4) Delirium: (5) Chronic diastolic (congestive) heart failure: Compensated. No evidence of edema on CXR, no weight gain or swelling apparent. BNP low. Cont Lasix per home regimen. (6) Psoriatic arthritis: Follows with [facility]. immunosuppression from chronic steroid use. Cont chronic daily prednisone. Total Time Total Time Spent Total Time Spent (In Minutes): 60 Discharge Plan Discharge Items Patient Disposition: Personal Usp Reason For Visit: RESPIRATORY FAILURE Discharge Diagnosis: Acute respiratory failure with acute metabolic encephalopathy-resolved Condition on Discharge: Good Activity: Resume your previous activity Non-emergency contact: Primary Care Provider Call non-emergency contact if: you have any medication questions and your symptoms worsen Follow-up/Referrals: [facility] [employer] [Primary Care Provider] - Diet: Carb Consistent or DM2 and Heart Healthy Diet Texture: Easy to Chew Addtl Attending Provider Instructions: Please take all medications as instructed on discharge list below. Cont supplemental oxygen as needed. You were not found to have pneumonia during your hospital stay. Other contributing factors such as transient elevated CO2 levels in your blood, compressed lung tissue at your lung bases and structual lung abnormalities likely contributed to your issue with breathing on admission. For further investigation into treatment options for this, an outpatient follow-up with a canoe inspector (lung doctor) may be considered. Close primary care follow-up is recommended to review with your primary care physician the events of your hospital stay and to review your medication list. You take multiple medications some of which may be eliminated pending your health goals and how they change. Please work with your doctor on what would be most appropriate for you. It was a pleasure taking care of you! Please call if you have any questions or problems. You can reach a [facility] hospitalist on duty at [facility] 24 hours a day by calling [phone]. Take care of yourself. Jie Dick, DO [facility] Pending Studies at Discharge: No Stand-Alone Forms: My [facility] Skilled Items Patient informed of condition?: Yes DNR: Yes Discharge Level of Care: Other Communicable Disease: No Discharge Prognosis: Stable Lines: None Urinary Catheter: No Medications and DC Order Prescriptions: Continued atorvastatin 40 mg tablet 40 mg PO HS Qty: 90 RF: 0 clopidogrel 75 mg tablet 75 mg PO QAM Qty: 30 RF: 0 allopurinol 300 mg tablet 300 mg PO QAM Qty: 90 RF: 0 ondansetron HCl [Zofran] 4 mg Tablet 4 mg PO Q8H PRN (Reason: Nausea And Vomiting) RF: 0 prednisone 5 mg Tablet 5 mg PO QAM RF: 0 Men's Daily Multivit-Mineral 0.4-600 mg-mcg Tablet 1 tab PO QAM RF: 0 Combivent Respimat 20-100 mcg/actuation Mist 1 puff INHALATION BID RF: 0 cholecalciferol (vitamin D3) [Vitamin D3] 2,000 unit Tablet 2,000 unit PO QAM RF: 0 magnesium oxide 400 mg magnesium Tablet 400 mg PO BID RF: 0 ferrous sulfate 325 mg (65 mg iron) Tablet 325 mg PO QAM RF: 0 finasteride 5 mg tablet 5 mg PO QAM RF: 0 melatonin 1 mg Tablet 4 mg PO HS RF: 0 Biotene Dry Mouth Oral Rinse Mouthwash 5 ml PO DAILY RF: 0 docusate sodium 100 mg Tablet 200 mg PO Q12 PRN (Reason: Constipation) RF: 0 Myrbetriq 50 mg tablet extended release 24 hr 50 mg PO QAM RF: 0 polyethylene glycol 3350 [Miralax] 17 gram/dose Powder 17 g PO DAILY PRN (Reason: Constipation) RF: 0 ipratropium-albuterol 0.5 mg-3 mg(2.5 mg base)/3 mL Solution For Nebulization 3 ml INHALATION Q4H PRN (Reason: Cough) RF: 0 acetaminophen 160 mg/5 mL Liquid 640 mg PO Q6 PRN (Reason: Pain) RF: 0 loperamide 2 mg Capsule 2 mg PO Q4H PRN (Reason: Diarrhea) RF: 0 Flovent Diskus 250 mcg/actuation blister with device 1 inh INHALATION BID RF: 0 Aloe Sebastian Protectant Ointment 43 % Ointment 1 applic TOPICAL DAILY PRN (Reason: skin protection) RF: 0 menthol-zinc oxide [Calmoseptine] 0.44-20.6 % Ointment 1 applic TOPICAL TID RF: 0 amoxicillin 500 mg capsule 2,000 mg PO ONCE RF: 0 gabapentin 300 mg capsule 300 mg PO TID RF: 0 tamsulosin 0.4 mg capsule 0.4 mg PO HS RF: 0 metoprolol succinate 50 mg Tablet Extended Release 24 Hr 50 mg PO QAM Qty: 30 RF: 0 levothyroxine 75 mcg Tablet 75 mcg PO QAM RF: 0 lidocaine 1.8 % Adhesive Patch,Medicated 1 patch TOPICAL UD PRN (Reason: Pain) RF: 0 mirtazapine [Remeron] 15 mg Tablet 7.5 mg PO HS RF: 0 amlodipine 10 mg tablet 10 mg PO QAM RF: 0 furosemide 20 mg tablet 40 mg PO [id number] RF: 0 Discharge Orders: Discharge Order (Routine); Ordered 05/09/21 Ordered By: Jie Valverde/Other Patient Handouts: Type 2 Diabetes Admission Data Admit Date/Time: 05/03/21 22:47 Attending Provider: Jie Dick Admit Provider: Jose Raul Earl Primary Care Provider: Jeff Duran,[facility], [facility] Other Providers: Jose Raul Earl ; Quentin Nova Other Interventions: Discharge Summary Assessment (RN) Last Done: 05/09/21 10:49
== END 2021-05-09 11:02 | disposition home or self-care (01) | DRG 189 ==
LOC: ED 16:48 → EDINP 22:47 → 2N 05-04 21:12 → 3E 05-08 16:52